=== PATIENT | female | born 1975 | race Two or more races ===

== ENCOUNTER → 2020-04-29 12:35 | Outpatient (BNVA) | payer OTHER, SELFPAY | PROVIDERS: PCP Internal Medicine; Referring Provider Internal Medicine; Visit Provider Internal Medicine Endocrinology, Diabetes & Metabolism | DX: E11.65 Type 2 diabetes mellitus with hyperglycemia (principal); E11.21 Type 2 diabetes mellitus with diabetic nephropathy; L68.0 Hirsutism; E66.9 Obesity, unspecified; E78.5 Hyperlipidemia, unspecified | CPT/HCPCS: 99214 ==

== ENCOUNTER 2020-04-30 08:02 | Outpatient (REF) | payer OTHER, SELFPAY ==
[2020-04-30 09:16] LABS: Alanine Aminotransferase 25 U/L (0-31); Albumin Level 3.8 g/dL (3.5-5.0); Alkaline Phosphatase 93 U/L (39-117); Anion Gap 11 (12-20); Aspartate Amino Transferase 19 U/L (5-31); Bilirubin Total 0.6 mg/dL (0.0-1.0); Blood Urea Nitrogen 10 mg/dL (9-16); Carbon Dioxide 27 mmol/L (22-29); Chloride 106 mmol/L (96-108); Cholesterol 173 mg/dL; Estimated Glomerular Filt Rate > 60; Glucose Fasting 156 mg/dL (60-99); HDL Cholesterol 29 mg/dL; LDL Cholesterol Calculated 101 mg/dl; Potassium 4.4 mmol/l (3.3-5.1); Sodium 140 mmol/L (135-145); Triglycerides 218 mg/dL
[2020-04-30 09:29] LABS: Estimated Average Glucose 174 mg/dL; Hemoglobin A1c % 7.7 %
[2020-04-30 09:39] LABS: Creatinine Urine 108.31 mg/dL; Microalbum/Creatinine Ratio Ur 49.8 ug/mg cr
[2020-04-30 09:39] LABS: Free T4 (Free Thyroxine) 1.03 ng/dL (0.71-1.85)
[2020-04-30 18:07] LABS: Vitamin B12 171 pg/mL (200-900)
[2020-05-01 09:42] LABS: LDL Cholesterol Direct 117 mg/dL (<100)
[2020-05-01 19:21] LABS: Prolactin 6.9 ng/mL
[2020-05-01 21:15] LABS: DHEA Sulfate 108 mcg/dL (19-231)
[2020-05-01 23:56] LABS: Adrenocorticotropic Hormone 28 pg/mL (6-50)
[2020-05-05 15:51] LABS: Androstenedione 70 ng/dL
[2020-05-06 13:42] LABS: Testosterone, Free 1.8 pg/mL (0.1-6.4); Testosterone, Total 20 ng/dL (2-45)
[2020-05-06 19:25] LABS: 11-Deoxycortisol, LC/MS <20 ng/dL
== END 2020-04-30 08:03 | disposition home or self-care (01) ==
LOC: HO.LAB 08:02
PROVIDERS: PCP Internal Medicine; Visit Provider Internal Medicine Endocrinology, Diabetes & Metabolism
DX: E11.65 Type 2 diabetes mellitus with hyperglycemia (principal)
CPT/HCPCS: 80053; 80061; 82024; 82043; 82157; 82533; 82607; 82627; 82634; 83036; 83498; 83721; 84146; 84402; 84403; 84439; 84443

== ENCOUNTER 2020-05-05 08:06 | Outpatient (REF) | payer OTHER, SELFPAY ==
[2020-05-06 21:22] LABS: DHEA Sulfate 54 mcg/dL (19-231)
[2020-05-06 22:56] LABS: Adrenocorticotropic Hormone 11 pg/mL (6-50)
[2020-05-07 18:51] LABS: LDL Cholesterol Direct 121 mg/dL (<100)
[2020-05-07 19:17] LABS: Prolactin 7.9 ng/mL
[2020-05-09 14:16] LABS: Saliva Cortisol <0.03 mcg/dL
[2020-05-11 12:22] LABS: Testosterone, Total 16 ng/dL (2-45)
[2020-05-11 21:37] LABS: Androstenedione 66 ng/dL
[2020-05-14 20:22] LABS: 11-Deoxycortisol, LC/MS <20 ng/dL
== END 2020-05-05 08:07 | disposition home or self-care (01) ==
LOC: HO.LAB 08:06
PROVIDERS: Visit Provider Internal Medicine Endocrinology, Diabetes & Metabolism
DX: E11.65 Type 2 diabetes mellitus with hyperglycemia (principal); L68.0 Hirsutism
CPT/HCPCS: 82024; 82157; 82530; 82533; 82627; 82634; 83498; 83721; 84146; 84402; 84403

== ENCOUNTER 2020-08-04 10:32 | Emergency (ER) | payer OTHER, SELFPAY ==
[2020-08-04 10:38] VITALS: BP 134/87; BP 160/70; PULSE 120; PULSE 90; RESP 18; TEMP 37; O2SAT 98; O2SAT 99; BMI 36.7
--- NOTE | 2020-08-04 10:39 | ECG_ITS ---
Test Reason : CHEST TIGHTNESS Blood Pressure : / mmHG Vent. Rate : 076 BPM Atrial Rate : 076 BPM P-R Int : 124 ms QRS Dur : 072 ms QT Int : 400 ms P-R-T Axes : 056 052 041 degrees QTc Int : 450 ms Normal sinus rhythm Normal ECG When compared with ECG of 24-APR-2019 15:19, No significant change was found Referred By: Frde Lord Electronically Signed By:ISAC LAMBERT MD
--- NOTE | 2020-08-04 10:40 | ED.URI ---
HPI - URI/Sore Throat General Chief Complaint: Upper Respiratory Symptoms Stated Complaint: covid symptoms Time Seen by Provider: 08/04/20 10:36 Source: EMS Mode of arrival: EMS Limitations: no limitations History of Present Illness HPI Narrative: 44-year-old female with reported history of diabetes, diabetic neuropathy, dyslipidemia, obesity, COPD on inhaler with surgical history right ankle surgery, section and umbilical hernia repair who presents via EMS with complaint of states for the past couple days states she thought she may have allergies that she was next to a dog and she usually gets significant allergies from this however she has continued cough and now associated chest wall pain. MD elicited complaint: cough and rhinorrhea Pertinent past history: COPD Onset (ago): day(s) (2) Severity: moderate Able to tolerate fluids by mouth: Yes Exacerbating factors: nothing Associated symptoms: denies other symptoms Treatments prior to arrival: none Related Data Home Medications Medication Instructions Recorded Confirmed ergocalciferol (vitamin D2) 1,250 1,250 mcg PO QWEEK 04/29/20 04/29/20 mcg (50,000 unit) capsule Previous Rx's Medication Instructions Recorded dulaglutide 0.75 mg/0.5 mL 0.75 mg SUBCUT QWEEK 30 Days #2.5 04/29/20 subcutaneous pen injector ml atorvastatin 10 mg tablet 20 mg PO DAILY 30 Days #60 tab 05/05/20 lisinopril 2.5 mg tablet 2.5 mg PO DAILY 30 Days #30 tab 05/05/20 mecobalamin (vitamin B12) 1,000 1,000 mcg SUBLINGUAL DAILY 30 Days 05/05/20 mcg disintegrating #30 tab tablet,sublingual azithromycin [Zithromax Z-Josué] 250 mg PO DAILY 5 Days #6 tab 08/04/20 prednisone 40 mg PO DAILY 5 Days #10 tab 08/04/20 Allergies Allergy/AdvReac Type Severity Reaction Status Date / Time latex [LATEX] Allergy Mild RASH Unverified 04/09/20 15:50 Latex Allergy Unknown Uncoded 03/18/20 00:00 Review of Systems Review of Systems: Constitutional: No Weight loss, No Fever, No Chills, No Night Sweats, No Fatigue, No Malaise ENT/Mouth: No Hearing loss, No Ear Pain, + Nasal Congestion, No Sinus Pain, No Hoarseness, No sore throat, + Rhinorrhea, No Swallowing Difficulty Eyes: No Eye Pain, No Swelling, No Redness, No Foreign Body, No Discharge, No Vision Changes Cardiovascular: + Chest wall Pain, No SOB, No Dyspnea on Exertion, No Orthopnea, No Edema, No Palpitations Respiratory: + Cough, No Sputum, No Wheezing, No Smoke Exposure, No Dyspnea Gastrointestinal: No Nausea, No Vomiting, No Diarrhea, No Constipation, No abdominal Pain, No Hematochezia, No Melena Genitourinary: no irregular bleeding, No Dysuria, No Urinary Frequency, No Hematuria, No Urinary Incontinence, No Urgency, No Flank Pain Musculoskeletal: No joint pain, No Myalgias, No Joint Swelling Skin: No Skin Lesions, No rash Neuro: No Weakness, No Numbness, No Paresthesias, No Loss of Consciousness, No Dizziness, No Headache Psych: No Social Issues Heme/Lymph: No Bruising, No Bleeding,No Lymphadenopathy Endocrine: No Polyuria, No Polydipsia, No Temperature Intolerance Yes all other systems are reviewed and are negative [facility] Past Medical History Medical History (Updated 08/04/20 @ 11:48 by Fred Lord NP) B12 deficiency Diabetes type 2, uncontrolled Diabetic nephropathy associated with type 2 diabetes mellitus Dyslipidemia Hirsutism Obesity (BMI 30-39.9) Surgical History (Updated 04/29/20 @ 12:52 by Judit Crenshaw LPN) History of ankle surgery Hx of section Hx of umbilical hernia repair Family History Family History (Updated 04/29/20 @ 12:53 by Judit Crenshaw LPN) Father Throat cancer Cirrhosis Mother Diabetes Social History Social History (Updated 04/29/20 @ 12:54 by Judit Crenshaw LPN) Smoking Status: Current every day smoker Tobacco Type: Cigarette Cigarettes Per Day: 10 Years Smoked: 30 Advance Directives: Yes Advance Directives on File: Yes Advance Directives Date on File: 04/25/18 Physical Exam Vital Signs: Vital Signs: Last Vital Signs Temp 98.6 F 08/04/20 12:00 Pulse 82 08/04/20 12:00 Resp 16 08/04/20 12:00 BP 142/88 H 08/04/20 12:00 Pulse Ox 100 08/04/20 12:00 Body Mass Index 36.7 Reviewed Const: General: cooperative and healthy appearing; No acute distress or intoxicated appearing Nutritional Appearance: average body habitus Orientation/consciousness: patient oriented x3 HENMT: Head: Yes normal to inspection Ears: hearing grossly normal bilaterally General nose exam: Other nasal findings present (Mild rhinorrhea) Eyes: General: appearance normal, both eyes and all related structures Visual Wright: normal visual wright by confrontation Neck: Neck: Yes normal visual inspection, No positive Brudzinski's sign, No positive Kernig's sign and No tender Thyroid: Thyroid normal Chest: Chest palpation & inspection: normal inspection of the chest Resp: Effort & Inspection: normal respiratory effort Auscultation: clear to auscultation bilaterally Cardio: Jugular venous distension: no JVD Rhythm: regular rhythm Heart sounds: S1 normal heart sound present and S2 normal heart sound present GI: Inspection: Yes normal to inspection Percussion: Yes normal to percussion Auscultation: normal bowel sounds : General: Yes no CVA tenderness Back/Spine/Pelvis: Back: no CVA tenderness Skin: General skin exam: no rashes or lesions noted Neuro: General: patient oriented x3 Extrem: General: Yes normal to inspection Course Course Course Narrative: 1046 In review 44-year-old female with history of diabetes and COPD other history as noted above presenting via EMS from home with cold-like symptoms associated cough and chest wall pain going on for past 2 days. Upon arrival with EMS heart rate 98 pulse ox 100% on room air. Lung sounds clear to auscultation did use inhaler prior to arrival. We will check labs, EKG, troponin, chest x-ray and COVID-19. AP consistent with upper respiratory infection, bronchitis, COVID-19, less likely ACS/PE. Reevaluation(s) Reevaluation #1: 1146 Labs overall stable. CBC with WBC count of 11 she is usually in the 15's , electrolytes without significant derangement. Troponin negative. Chest x-ray without acute disease. COVID negative. EKG without significant changes. Will discharge home with short course prednisone azithromycin and supportive care. Clear return follow-up instructions provided. Comfortable plan. Stable for discharge. MDM - URI/Sore Throat Differential Diagnosis Differential diagnosis: Likely upper respiratory infection, viral infection, bronchitis and influenza; Unlikely croup, otitis media, sinusitis and pharyngitis Medical Records Attestation: I reviewed the patient's medical records. Lab Data Attestation: I reviewed the patient's lab results. Result diagrams: 08/04/20 10:51 08/04/20 10:51 Labs: Lab Results 08/04/20 08/04/20 08/04/20 Range/Units 10:51 10:51 10:51 WBC 11.0 H (4.8-10.8) X10*3/uL RBC 4.93 (4.20-5.50) X10*6/uL Hgb 12.6 (12.0-16.0) g/dl Hct 38.9 (37-47) % MCV 78.9 L (80-98) fL MCH 25.6 L (27.0-33.0) pg MCHC 32.4 (31.0-35.0) g/dl RDW 14.8 (11.0-16.0) % Plt Count 271 (160-400) X10*3/uL MPV 11.6 (9.4-12.3) fL Immature Gran % (Auto) 0.5 H (0.0-0.4) % Neut % (Auto) 60.5 (45-73) % Lymph % (Auto) 31.2 (20-40) % [place] % (Auto) 4.3 (2-11) % Eos % (Auto) 2.8 (0-4) % Baso % (Auto) 0.7 (0-2) % Lymph # (Auto) 3.4 (1.2-4.9) X10*3/uL [place] # (Auto) 0.5 (0.1-1.2) X10*3/uL Eos # (Auto) 0.3 (0.0-0.4) X10*3/uL Baso # (Auto) 0.1 (0.0-0.2) X10*3/uL Abs Immat Gran (auto) 0.05 H (0.00-0.03) X10*3/uL Absolute Neuts (auto) 6.7 (2.0-8.3) X10*3/uL Absolute Nucleated RBC 0.000 (0.0-0.012) X10*3/uL Nucleated RBC % (auto) 0.0 (0.0-0.2) /100WBC Sodium 138 (135-145) mmol/L Potassium 4.5 (3.3-5.1) mmol/l Chloride 105 (96-108) mmol/L Carbon Dioxide 26 (22-29) mmol/L Anion Gap 12 (12-20) BUN 10 (9-16) mg/dL Creatinine 0.87 (0.5-1.4) mg/dL Estim Creat Clear Calc 94.3 Estimated GFR > 60 Random Glucose 186 H (60-115) mg/dL Calcium 8.8 (8.4-10.2) mg/dL Total Bilirubin 0.4 (0.0-1.0) mg/dL AST 19 (5-31) U/L ALT 28 (0-31) U/L Alkaline Phosphatase 96 (39-117) U/L Troponin I High Sens < 3.5 (<3.5-17.0) ng/L Total Protein 6.8 (6.5-8.0) g/dL Albumin 3.7 (3.5-5.0) g/dL COVID-19 (SINTIA) (Negative) COVID-19 Clin Com 08/04/20 Range/Units 10:51 WBC (4.8-10.8) X10*3/uL RBC (4.20-5.50) X10*6/uL Hgb (12.0-16.0) g/dl Hct (37-47) % MCV (80-98) fL MCH (27.0-33.0) pg MCHC (31.0-35.0) g/dl RDW (11.0-16.0) % Plt Count (160-400) X10*3/uL MPV (9.4-12.3) fL Immature Gran % (Auto) (0.0-0.4) % Neut % (Auto) (45-73) % Lymph % (Auto) (20-40) % [place] % (Auto) (2-11) % Eos % (Auto) (0-4) % Baso % (Auto) (0-2) % Lymph # (Auto) (1.2-4.9) X10*3/uL [place] # (Auto) (0.1-1.2) X10*3/uL Eos # (Auto) (0.0-0.4) X10*3/uL Baso # (Auto) (0.0-0.2) X10*3/uL Abs Immat Gran (auto) (0.00-0.03) X10*3/uL Absolute Neuts (auto) (2.0-8.3) X10*3/uL Absolute Nucleated RBC (0.0-0.012) X10*3/uL Nucleated RBC % (auto) (0.0-0.2) /100WBC Sodium (135-145) mmol/L Potassium (3.3-5.1) mmol/l Chloride (96-108) mmol/L Carbon Dioxide (22-29) mmol/L Anion Gap (12-20) BUN (9-16) mg/dL Creatinine (0.5-1.4) mg/dL Estim Creat Clear Calc Estimated GFR Random Glucose (60-115) mg/dL Calcium (8.4-10.2) mg/dL Total Bilirubin (0.0-1.0) mg/dL AST (5-31) U/L ALT (0-31) U/L Alkaline Phosphatase (39-117) U/L Troponin I High Sens (<3.5-17.0) ng/L Total Protein (6.5-8.0) g/dL Albumin (3.5-5.0) g/dL COVID-19 (SINTIA) Negative (Negative) COVID-19 Clin Com See Note Imaging Data Chest x-ray: Radiologist's impression: [place] [id number] XRay Report Signed Patient: Mckenzie Quiñonez#: [id number] : 1975Acct:[id number] Age/Sex: 44 / FADM Date: 08/04/20 Loc: .ED Attending Dr: Ordering Physician: Fred Lord NP Date of Service: 08/04/20 Procedure(s): XR chest 1V Accession Number(s): [id number] cc: Fred Lord NP~ EXAMINATION: XR CHEST CLINICAL INFORMATION: Chest wall pain COMPARISON: Chest radiographs 12/09/2019 TECHNIQUE: Portable upright AP view of the chest was obtained. FINDINGS: The lungs are clear. There is no pneumothorax or pleural reaction. No airspace consolidation or groundglass opacity or effusion. The heart is normal in size. The hilar and mediastinal contours are unremarkable. No acute bony abnormality. Foreshortening left distal clavicle again seen. XR/XR chest 1V IMPRESSION: Unremarkable examination. Dictated By:LAM FLORES MD Signed By:<Electronically signed by LAM FLOERS MD in OV>08/04/20 1052 DD/ 1039 TD/TT: Balance Bridge Assembler: JEIMY ECG Data Interpretation: Normal sinus rhythm Rate 76 NM interval within normal limits No acute ST segment changes When compared with ECG of 24-APR-2019 15:19, No significant change was found Discharge Plan Discharge Clinical Impression: Upper respiratory infection, Cough, Atypical chest pain Patient Disposition: Home, Self-Care Instructions: Chest Pain (ED), Upper Respiratory Infection (ED), Acute Cough (ED) Additional Instructions: Your blood work was overall reassuring X-ray did not show any evidence of pneumonia Your COVID test was negative You still need to practice social distancing and self-isolation at least until 3 days symptom free. Drink plenty fluids Supportive care as discussed Take medication prescribed Return if any concerns or worsening symptoms Thank you Prescriptions: New azithromycin [Zithromax Z-Josué] 250 mg tablet 250 mg PO DAILY 5 Days Qty: 6 RF: 0 prednisone 20 mg tablet 40 mg PO DAILY 5 Days Qty: 10 RF: 0 No Action atorvastatin 10 mg tablet 20 mg PO DAILY 30 Days Qty: 60 RF: 5 mecobalamin (vitamin B12) 1,000 mcg tablet,disintegrating 1,000 mcg sublingual DAILY 30 Days Qty: 30 RF: 3 lisinopril 2.5 mg tablet 2.5 mg PO DAILY 30 Days Qty: 30 RF: 4 ergocalciferol (vitamin D2) 1,250 mcg (50,000 unit) capsule 1,250 mcg PO QWEEK RF: 0 Trulicity 0.75 mg/0.5 mL pen injector 0.75 mg subcut QWEEK 30 Days Qty: 2.5 RF: 5 Referrals: Physician,Unknown [Primary Care Provider] - 1 week
[2020-08-04 10:56] LABS: MANUAL DIFF FLAG NO
[2020-08-04] MEDS: predniSONE 20 MG TABLET 60 MG PO (10:56)
[2020-08-04 11:02] LABS: Basophils Absolute Auto 0.1 X10*3/uL (0.0-0.2); Basophils Percent Auto 0.7 % (0-2); Eosinophils Absolute Auto 0.3 X10*3/uL (0.0-0.4); Eosinophils Percent Auto 2.8 % (0-4); Hematocrit 38.9 % (37-47); Hemoglobin 12.6 g/dl (12.0-16.0); Imm Gran Abs Auto 0.05 X10*3/uL (0.00-0.03); Imm Gran Pct Auto 0.5 % (0.0-0.4); Lymphocytes Absolute Auto 3.4 X10*3/uL (1.2-4.9); Lymphocytes Percent Auto 31.2 % (20-40); Mean Corpuscular HGB Conc 32.4 g/dl (31.0-35.0); Mean Corpuscular Hemoglobin 25.6 pg (27.0-33.0); Mean Corpuscular Volume 78.9 fL (80-98); Mean Platelet Volume 11.6 fL (9.4-12.3); Monocytes Absolute Auto 0.5 X10*3/uL (0.1-1.2); Monocytes Percent Auto 4.3 % (2-11); Neutrophils Absolute Auto 6.7 X10*3/uL (2.0-8.3); Neutrophils Percent Auto 60.5 % (45-73); Platelet Count 271 X10*3/uL (160-400); Red Blood Count 4.93 X10*6/uL (4.20-5.50); Red Cell Distribution Width 14.8 % (11.0-16.0)
[2020-08-04 11:18] LABS: COVID-19 Test Negative (Negative); IDNOW Serial# 9DD0AD1C
[2020-08-04 11:32] LABS: Alanine Aminotransferase 28 U/L (0-31); Albumin Level 3.7 g/dL (3.5-5.0); Alkaline Phosphatase 96 U/L (39-117); Anion Gap 12 (12-20); Aspartate Amino Transferase 19 U/L (5-31); Bilirubin Total 0.4 mg/dL (0.0-1.0); Blood Urea Nitrogen 10 mg/dL (9-16); Calcium 8.8 mg/dL (8.4-10.2); Carbon Dioxide 26 mmol/L (22-29); Chloride 105 mmol/L (96-108); Creatinine Clr Calc Pharmacy 94.3; Estimated Glomerular Filt Rate > 60; Glucose Random 186 mg/dL (60-115); Potassium 4.5 mmol/l (3.3-5.1); Sodium 138 mmol/L (135-145); Total Protein 6.8 g/dL (6.5-8.0)
[2020-08-04 11:37] LABS: Troponin-I High Sensitivity < 3.5 ng/L (<3.5-17.0)
[2020-08-04 12:00] VITALS: BP 142/88; PULSE 82; RESP 16; TEMP 37; O2SAT 100
== END 2020-08-04 12:50 | disposition home or self-care (01) ==
PROVIDERS: Nurse Practitioner Primary Care; Emergency Provider Emergency Medicine Emergency Medical Services
DX: J06.9 Acute upper respiratory infection, unspecified (principal); R05 Cough; R07.89 Other chest pain; Z20.828 Contact with and (suspected) exposure to other viral communicable diseases; Z79.899 Other long term (current) drug therapy
CPT/HCPCS: 36415; 71045; 80053; 84484; 85025; 87635; 93005; 99283

== ENCOUNTER 2020-08-21 20:53 | Emergency (ER) | payer OTHER, SELFPAY ==
[2020-08-21 22:02] VITALS: BP 147/96; BP 170/100; PULSE 102; PULSE 104; RESP 20; TEMP 36.8; O2SAT 99; BMI 36.6
--- NOTE | 2020-08-21 22:06 | ED.HA ---
HPI - Headache General Chief Complaint: General Medical Stated Complaint: HEAD ACHE Time Seen by Provider: 08/21/20 22:05 Source: patient Mode of arrival: ambulatory Limitations: no limitations History of Present Illness HPI Narrative: Patient chronic smoker recurrent bronchitis been sick for last 3 week bronchitis getting better now still short of breath with cough complaining of headache since today with history of migraine also complaining of lower pelvic pain on her periods now also complaining of pain when she urinates. Patient denies any nausea or vomiting slight photosensitivity MD elicited complaint: headache Pertinent past history: migraines Onset description: gradually Location: frontal Severity: moderate Quality & Timing: similar to previous headaches Exacerbating factors: light and noise Relieving factors: nothing Context: occurred at rest Related Data Home Medications Medication Instructions Recorded Confirmed ergocalciferol (vitamin D2) 1,250 1,250 mcg PO QWEEK 04/29/20 04/29/20 mcg (50,000 unit) capsule Previous Rx's Medication Instructions Recorded dulaglutide 0.75 mg/0.5 mL 0.75 mg SUBCUT QWEEK 30 Days #2.5 04/29/20 subcutaneous pen injector ml atorvastatin 10 mg tablet 20 mg PO DAILY 30 Days #60 tab 05/05/20 lisinopril 2.5 mg tablet 2.5 mg PO DAILY 30 Days #30 tab 05/05/20 mecobalamin (vitamin B12) 1,000 1,000 mcg SUBLINGUAL DAILY 30 Days 05/05/20 mcg disintegrating #30 tab tablet,sublingual azithromycin [Zithromax Z-Josué] 250 mg PO DAILY 5 Days #6 tab 08/04/20 prednisone 40 mg PO DAILY 5 Days #10 tab 08/04/20 oxycodone-acetaminophen [Percocet] 1 tab PO Q6H PRN #14 tab 08/21/20 Allergies Allergy/AdvReac Type Severity Reaction Status Date / Time latex [LATEX] Allergy Mild RASH Verified 08/21/20 22:06 Review of Systems Review of Systems: Constitutional : No Weight loss, No Fever, No Chills ENT/Mouth : No sore throat, No Rhinorrhea Eyes: No Eye Pain, No Swelling Cardiovascular : No Chest Pain, no palpitations Respiratory : No Cough, No Sputum, no shortness of breath Gastrointestinal : no Nausea, No Vomiting, No Diarrhea, ++abdominal Pain, no black stools Genitourinary : ++Dysuria, No Urinary Frequency Musculoskeletal : No joint pain, No Myalgias, No Joint Swelling Skin : No Skin Lesions, No rash Neuro : No Weakness, No Numbness, No Dizziness, ++ Headache Psych : No Anxiety/Panic, No Depression Heme/Lymph: No Bruising, No Lymphadenopathy Endocrine : No Polyuria, No Polydipsia All other systems reviewed and are negative PMFSH Past Medical History Medical History B12 deficiency Diabetes type 2, uncontrolled Diabetic nephropathy associated with type 2 diabetes mellitus Dyslipidemia Hirsutism Obesity (BMI 30-39.9) Surgical History History of ankle surgery Hx of section Hx of umbilical hernia repair Family History Family History Father Throat cancer Cirrhosis Mother Diabetes Social History Social History Smoking Status: Current every day smoker Tobacco Type: Cigarette Cigarettes Per Day: 10 Years Smoked: 30 Advance Directives: Yes Advance Directives on File: Yes Advance Directives Date on File: 04/25/18 Physical Exam Vital Signs: Vital Signs: Last Vital Signs Temp 98.2 F 08/21/20 22:02 Pulse 102 H 08/21/20 22:02 Resp 20 08/21/20 22:02 BP 147/96 H 08/21/20 22:02 Pulse Ox 99 08/21/20 22:02 Body Mass Index 36.6 Const: General: healthy appearing, comfortable and no acute distress Orientation/consciousness: patient oriented x3 HENMT: Head: Yes normocephalic and Yes atraumatic Ears: hearing grossly normal bilaterally General nose exam: Normal external nose present and No nasal discharge present Face and sinus: No sinus tenderness Mouth: Normal oral and palatal mucosa present Eyes: General: appearance normal, both eyes and all related structures Neck: Neck: Yes normal visual inspection, Yes full ROM and Yes no JVD Chest: Chest palpation & inspection: normal inspection of the chest and normal palpation of entire chest wall Resp: Effort & Inspection: normal respiratory effort Auscultation: clear to auscultation bilaterally Cardio: Jugular venous distension: no JVD Palpation: normal PMI Rate: regular rate Rhythm: regular rhythm Heart sounds: S1 normal heart sound present and S2 normal heart sound present GI: Inspection: Yes normal to inspection Palpation (GI): Soft to palpation, Tenderness to palpation present (GI) (Mild tenderness in suprapubic area) suprapubicly; with no rebound tenderness and no masses Auscultation: normal bowel sounds : General: Yes no CVA tenderness Back/Spine/Pelvis: Back: no CVA tenderness Skin: General skin exam: no rashes or lesions noted Neuro: General: patient oriented x3, gait normal and no focal motor deficits Extrem: General: Yes normal to inspection, Yes normal gait and No pedal edema Course Course Course Narrative: Patient with history of migraine complaining of headaches body aches urine is negative for any infection patient is on her periods. Feeling better of her oxycodone Complaining of body aches all over with discharge her home on Percocet MDM - Headache Lab Data Attestation: I reviewed the patient's lab results. Labs: Lab Results 08/21/20 08/21/20 08/21/20 Range/Units 22:43 22:43 23:10 POC Glucose 139 H (60-115) mg/dL Urine Color RED Urine Appearance TURBID Urine pH 6.0 (5.0-8.0) Ur Specific [place] 1.025 (1.005-1.025) Urine Protein 1+ H (NEG-TRACE) MG/DL Urine Glucose (UA) NEG (NEG) MG/DL Urine Ketones NEG (NEG) MG/DL Urine Blood 3+ H (NEG) Urine Nitrite NEG (NEG) Ur Leukocyte Esterase TRACE H (NEG) Urine RBC TNTC H (0) /HPF Urine WBC 1-4 (0-4) /HPF Ur Squamous Epith Cells 1+ /LPF Urine Bacteria 1+ /LPF COVID-19 ([facility]INTIA) Negative (Negative) COVID-19 Clin Com See Note Discharge Plan Discharge Clinical Impression: Migraine Qualifiers: Migraine type: unspecified Status migrainosus presence: without status migrainosus Intractability: not intractable Qualified Code(s): G43.909 - Migraine, unspecified, not intractable, without status migrainosus Patient Disposition: Home, Self-Care Instructions: Migraine Headache (ED) Additional Instructions: Rest at home medicine for pain as advised Prescriptions: New oxycodone-acetaminophen [Percocet] 5-325 mg tablet 1 tab PO Q6H PRN (Reason: pain) Qty: 14 RF: 0 No Action atorvastatin 10 mg tablet 20 mg PO DAILY 30 Days Qty: 60 RF: 5 mecobalamin (vitamin B12) 1,000 mcg tablet,disintegrating 1,000 mcg sublingual DAILY 30 Days Qty: 30 RF: 3 lisinopril 2.5 mg tablet 2.5 mg PO DAILY 30 Days Qty: 30 RF: 4 azithromycin [Zithromax Z-Josué] 250 mg tablet 250 mg PO DAILY 5 Days Qty: 6 RF: 0 prednisone 20 mg tablet 40 mg PO DAILY 5 Days Qty: 10 RF: 0 ergocalciferol (vitamin D2) 1,250 mcg (50,000 unit) capsule 1,250 mcg PO QWEEK RF: 0 Trulicity 0.75 mg/0.5 mL pen injector 0.75 mg subcut QWEEK 30 Days Qty: 2.5 RF: 5
--- NOTE | 2020-08-21 22:18 | XR_ITS ---
EXAMINATION: XR CHEST CLINICAL INFORMATION: Cough COMPARISON: 08/04/2020 TECHNIQUE: Frontal view of the chest was obtained. FINDINGS: Normal symmetric lung volumes. No parenchymal consolidation. No pleural effusion. No pneumothorax. Cardiomediastinal silhouette and pulmonary vascularity are within normal limits. No acute osseous abnormalities. XR/XR chest 1V IMPRESSION: No focal consolidation or portable radiographic evidence of acute pneumonitis.
[2020-08-21] MEDS: oxyCODONE HCl Immed Release 5 MG TABLET 10 MG PO (22:40)
[2020-08-21 23:02] LABS: Glucose Urine UA NEG (NEG); Leukocyte Esterase Urine TRACE (NEG); Nitrite Urine NEG (NEG); Specific Gravity - Urine 1.025 (1.005-1.025); UACC Culture Trigger YES; Urine Blood 3+ (NEG); Urine Ketones NEG (NEG); Urine Protein 1+ MG/DL (NEG-TRACE)
[2020-08-21 23:11] LABS: Appearance Urine TURBID; Color Urine RED
[2020-08-21 23:15] LABS: RBC Urine TNTC /HPF (0)
[2020-08-21 23:16] LABS: Bacteria Urine 1+ /LPF; Squamous Epithelial Cell Urine 1+ /LPF
[2020-08-21 23:16] LABS: Glucose, Whole Blood 139 mg/dL (60-115)
[2020-08-21 23:17] LABS: COVID-19 Test Negative (Negative); IDNOW Serial# 9DD0AD1C
[2020-08-21 23:52] VITALS: BP 144/94; PULSE 74; RESP 16; O2SAT 97
== END 2020-08-22 00:02 | disposition home or self-care (01) ==
PROVIDERS: Emergency Provider Internal Medicine
DX: G43.909 Migraine, unspecified, not intractable, without status migrainosus (principal); F17.210 Nicotine dependence, cigarettes, uncomplicated; Z71.6 Tobacco abuse counseling; Z79.899 Other long term (current) drug therapy
CPT/HCPCS: 36415; 71045; 81001; 81003; 82947; 87086; 87635; 99283; 99284

== ENCOUNTER 2020-10-09 17:50 | Emergency (ER) | payer OTHER, SELFPAY ==
--- NOTE | 2020-10-09 | ECG_ITS ---
Test Reason : CHEST PAIN Blood Pressure : / mmHG Vent. Rate : 076 BPM Atrial Rate : 076 BPM P-R Int : 128 ms QRS Dur : 074 ms QT Int : 388 ms P-R-T Axes : 044 036 026 degrees QTc Int : 436 ms Normal sinus rhythm Cannot rule out Anterior infarct , age undetermined Abnormal ECG When compared with ECG of 04-AUG-2020 12:25, No significant change was found Referred By: Generic ED Physician Electronically Signed By:ISAC LAMBERT MD
--- NOTE | ~2020-10-09 | XR_ITS ---
EXAMINATION: XR CHEST CLINICAL INFORMATION: CP left side COMPARISON: 08/21/2020 TECHNIQUE: AP portable upright view of the chest FINDINGS: Lungs are clear. No consolidation, pneumothorax, or pleural effusion. Cardiac and mediastinal contours are normal. Pulmonary vasculature is unremarkable. There is chronic widening of the acromioclavicular joints with an old left distal clavicular fracture. No acute osseous findings. XR/XR chest 1V IMPRESSION: No acute cardiopulmonary findings
[2020-10-09 18:31] VITALS: BP 115/80; PULSE 89; RESP 18; TEMP 36.9; O2SAT 97; BMI 35.4
[2020-10-09 18:45] LABS: MANUAL DIFF FLAG NO
[2020-10-09 18:49] LABS: Basophils Absolute Auto 0.1 X10*3/uL (0.0-0.2); Basophils Percent Auto 0.7 % (0-2); Eosinophils Absolute Auto 0.3 X10*3/uL (0.0-0.4); Hematocrit 39.3 % (37-47); Hemoglobin 13.1 g/dl (12.0-16.0); Imm Gran Abs Auto 0.04 X10*3/uL (0.00-0.03); Imm Gran Pct Auto 0.3 % (0.0-0.4); Lymphocytes Absolute Auto 3.8 X10*3/uL (1.2-4.9); Lymphocytes Percent Auto 29.1 % (20-40); Mean Corpuscular HGB Conc 33.3 g/dl (31.0-35.0); Mean Corpuscular Hemoglobin 26.1 pg (27.0-33.0); Mean Corpuscular Volume 78.3 fL (80-98); Mean Platelet Volume 11.8 fL (9.4-12.3); Monocytes Absolute Auto 0.6 X10*3/uL (0.1-1.2); Monocytes Percent Auto 4.5 % (2-11); Neutrophils Absolute Auto 8.3 X10*3/uL (2.0-8.3); Neutrophils Percent Auto 63.4 % (45-73); Platelet Count 283 X10*3/uL (160-400); Red Blood Count 5.02 X10*6/uL (4.20-5.50); Red Cell Distribution Width 16.2 % (11.0-16.0); White Blood Count 13.1 X10*3/uL (4.8-10.8)
[2020-10-09 19:18] LABS: Anion Gap 12 (12-20); Blood Urea Nitrogen 8 mg/dL (9-16); Calcium 9.1 mg/dL (8.4-10.2); Carbon Dioxide 26 mmol/L (22-29); Chloride 103 mmol/L (96-108); Creatinine Clr Calc Pharmacy 100.6; Estimated Glomerular Filt Rate > 60; Glucose Random 122 mg/dL (60-115); Potassium 4.1 mmol/L (3.3-5.1); Sodium 137 mmol/L (135-145)
[2020-10-09 19:26] LABS: Troponin-I High Sensitivity < 3.5 ng/L (<3.5-17.0)
--- NOTE | 2020-10-09 21:34 | ED_ITS ---
HPI - General Adult General Chief complaint: General Medical Stated complaint: headache x2 days Time Seen by Provider: 10/09/20 21:26 Source: patient Mode of arrival: ambulatory Limitations: no limitations History of Present Illness HPI narrative: Patient comes emergency room complaining of left-sided chest pain. Patient states that the pain started last week after physical therapy. Patient states when she moves her arm, sometimes he feels a bit numb and tingling. At this time, patient states that she has no pain. Patient states she was seen by her primary care physician earlier today, she was instructed to come by the primary care physician to come to the emergency room. Patient states also that overall she has been feeling weak for about a week. Patient has history pulmonary fibrosis, asthma, emphysema. Patient denies URI symptoms. Related Data Home Medications Medication Instructions Recorded Confirmed ergocalciferol (vitamin D2) 1,250 1,250 mcg PO QWEEK 04/29/20 04/29/20 mcg (50,000 unit) capsule Previous Rx's Medication Instructions Recorded atorvastatin 10 mg tablet 20 mg PO DAILY 30 Days #60 tab 05/05/20 lisinopril 2.5 mg tablet 2.5 mg PO DAILY 30 Days #30 tab 05/05/20 mecobalamin (vitamin B12) 1,000 1,000 mcg SUBLINGUAL DAILY 30 Days 05/05/20 mcg disintegrating #30 tab tablet,sublingual azithromycin [Zithromax Z-Josué] 250 mg PO DAILY 5 Days #6 tab 08/04/20 prednisone 40 mg PO DAILY 5 Days #10 tab 08/04/20 oxycodone-acetaminophen [Percocet] 1 tab PO Q6H PRN #14 tab 08/21/20 dulaglutide 0.75 mg/0.5 mL 0.75 mg SUBCUT QWEEK 30 Days #2.5 09/22/20 subcutaneous pen injector ml Allergies Allergy/AdvReac Type Severity Reaction Status Date / Time latex [LATEX] Allergy Mild RASH Verified 08/21/20 22:06 Review of Systems Review of Systems: Constitutional : No Weight loss, No Fever, No Chills, No Night Sweats, No Fatigue, No Malaise ENT/Mouth : No Hearing loss, No Ear Pain, No Nasal Congestion, No Sinus Pain, No Hoarseness, No sore throat, No Rhinorrhea, No Swallowing Difficulty Eyes: No Eye Pain, No Swelling, No Redness, No Foreign Body, No Discharge, No Vision Changes Cardiovascular : Occasional left-sided Chest Pain, No SOB, No Dyspnea on Exertion, No Orthopnea, No Edema, No Palpitations Respiratory : Baseline dry Cough, No Sputum, No Wheezing, No Smoke Exposure, No Dyspnea Gastrointestinal : No Nausea, No Vomiting, No Diarrhea, No Constipation, No abdominal Pain, No Hematochezia, No Melena Genitourinary : no irregular bleeding, No Dysuria, No Urinary Frequency, No Hematuria, No Urinary Incontinence, No Urgency, No Flank Pain, No Urinary Flow Changes, No Hesitancy Musculoskeletal : Pain in the left shoulder with movement and left clavicle, No Myalgias, No Joint Swelling Skin : No Skin Lesions, No rash Neuro : No Weakness, No Numbness, No Paresthesias, No Loss of Consciousness, No Dizziness, No Headache Psych : No Anxiety/Panic, No Depression, No SI/HI/AH/VH, No Social Issues, Heme/Lymph: No Bruising, No Bleeding,No Lymphadenopathy Endocrine : No Polyuria, No Polydipsia, No Temperature Intolerance PMFSH Past Medical History Medical History B12 deficiency Diabetes type 2, uncontrolled Diabetic nephropathy associated with type 2 diabetes mellitus Dyslipidemia Hirsutism Obesity (BMI 30-39.9) Surgical History History of ankle surgery Hx of section Hx of umbilical hernia repair Family History Family History Father Throat cancer Cirrhosis Mother Diabetes Social History Social History Smoking Status: Current every day smoker Tobacco Type: Cigarette Cigarettes Per Day: 10 Years Smoked: 30 Advance Directives: Yes Advance Directives on File: Yes Advance Directives Date on File: 04/25/18 Physical Exam Vital Signs: Vital Signs: Last Vital Signs Temp 98.4 F 10/09/20 18:31 Pulse 87 10/09/20 21:37 Resp 16 10/09/20 21:37 BP 107/66 10/09/20 21:37 Pulse Ox 96 10/09/20 21:37 Body Mass Index 35.4 Appearance: Alert. Oriented X3. No acute distress. Eyes: Pupils equal, round and reactive to light. ENT: Pharynx normal. Neck: Normal inspection. Neck supple. No lymph nodes noted. No crepitus CVS: Normal heart rate and rhythm. Pulses normal. Normal S1 and S2, reproducible chest pain on palpation Respiratory: No respiratory distress. Breath sounds normal. No Wheezing. No rales Abdomen: Soft and nontender. No rigidity. No distention. good BS x4 Skin: Skin warm and dry. Normal skin color. Normal skin turgor. Extremities: No lower extremity edema. Pain with left shoulder movement, pain to palpation over the left clavicle Neuro: Oriented X 3. No motor deficit. No sensory deficit. Moving all extermities. No slurred speech. Course Course Course Narrative: Patient remains asymptomatic. I discussed with the patient her EKG, troponin and chest x-ray, no acute findings. Patient's chest pain likely secondary to a muscle strain/musculoskeletal was treated by physical therapy. Medical Decision Making Lab Data Result diagrams: 10/09/20 18:39 10/09/20 18:39 Labs: Lab Results 10/09/20 10/09/20 10/09/20 Range/Units 18:39 18:39 18:39 WBC 13.1 H (4.8-10.8) X10*3/uL RBC 5.02 (4.20-5.50) X10*6/uL Hgb 13.1 (12.0-16.0) g/dl Hct 39.3 (37-47) % MCV 78.3 L (80-98) fL MCH 26.1 L (27.0-33.0) pg MCHC 33.3 (31.0-35.0) g/dl RDW 16.2 H (11.0-16.0) % Plt Count 283 (160-400) X10*3/uL MPV 11.8 (9.4-12.3) fL Immature Gran % (Auto) 0.3 (0.0-0.4) % Neut % (Auto) 63.4 (45-73) % Lymph % (Auto) 29.1 (20-40) % [place] % (Auto) 4.5 (2-11) % Eos % (Auto) 2.0 (0-4) % Baso % (Auto) 0.7 (0-2) % Lymph # (Auto) 3.8 (1.2-4.9) X10*3/uL [place] # (Auto) 0.6 (0.1-1.2) X10*3/uL Eos # (Auto) 0.3 (0.0-0.4) X10*3/uL Baso # (Auto) 0.1 (0.0-0.2) X10*3/uL Abs Immat Gran (auto) 0.04 H (0.00-0.03) X10*3/uL Absolute Neuts (auto) 8.3 (2.0-8.3) X10*3/uL Absolute Nucleated RBC 0.000 (0.0-0.012) X10*3/uL Nucleated RBC % (auto) 0.0 (0.0-0.2) /100WBC Hold Blue Top SEE NOTE Sodium 137 (135-145) mmol/L Potassium 4.1 (3.3-5.1) mmol/L Chloride 103 (96-108) mmol/L Carbon Dioxide 26 (22-29) mmol/L Anion Gap 12 (12-20) BUN 8 L (9-16) mg/dL Creatinine 0.82 (0.5-1.4) mg/dL Estim Creat Clear Calc 100.6 Estimated GFR > 60 Random Glucose 122 H (60-115) mg/dL Calcium 9.1 (8.4-10.2) mg/dL Troponin I High Sens (<3.5-17.0) ng/L 10/09/20 Range/Units 18:39 WBC (4.8-10.8) X10*3/uL RBC (4.20-5.50) X10*6/uL Hgb (12.0-16.0) g/dl Hct (37-47) % MCV (80-98) fL MCH (27.0-33.0) pg MCHC (31.0-35.0) g/dl RDW (11.0-16.0) % Plt Count (160-400) X10*3/uL MPV (9.4-12.3) fL Immature Gran % (Auto) (0.0-0.4) % Neut % (Auto) (45-73) % Lymph % (Auto) (20-40) % [place] % (Auto) (2-11) % Eos % (Auto) (0-4) % Baso % (Auto) (0-2) % Lymph # (Auto) (1.2-4.9) X10*3/uL [place] # (Auto) (0.1-1.2) X10*3/uL Eos # (Auto) (0.0-0.4) X10*3/uL Baso # (Auto) (0.0-0.2) X10*3/uL Abs Immat Gran (auto) (0.00-0.03) X10*3/uL Absolute Neuts (auto) (2.0-8.3) X10*3/uL Absolute Nucleated RBC (0.0-0.012) X10*3/uL Nucleated RBC % (auto) (0.0-0.2) /100WBC Hold Blue Top Sodium (135-145) mmol/L Potassium (3.3-5.1) mmol/L Chloride (96-108) mmol/L Carbon Dioxide (22-29) mmol/L Anion Gap (12-20) BUN (9-16) mg/dL Creatinine (0.5-1.4) mg/dL Estim Creat Clear Calc Estimated GFR Random Glucose (60-115) mg/dL Calcium (8.4-10.2) mg/dL Troponin I High Sens < 3.5 (<3.5-17.0) ng/L Imaging Data Chest x-ray: Radiologist's impression: Lungs are clear. No consolidation, pneumothorax, or pleural effusion. Cardiac and mediastinal contours are normal. Pulmonary vasculature is unremarkable. There is chronic widening of the acromioclavicular joints with an old left distal clavicular fracture. No acute osseous findings. XR/XR chest 1V IMPRESSION: No acute cardiopulmonary findings Scores Heart Score History: -0- slightly suspicious ECG: -0- normal Age: -0- < or = 45 Risk factory: -1- 1 or 2 risk factors Troponin: -0- < or = normal limit Score: 1 Risk: 1.7% Discharge Plan Discharge Clinical Impression: Atypical chest pain Patient Disposition: Home, Self-Care Instructions: Chest Pain (ED) Prescriptions: No Action atorvastatin 10 mg tablet 20 mg PO DAILY 30 Days Qty: 60 RF: 5 mecobalamin (vitamin B12) 1,000 mcg tablet,disintegrating 1,000 mcg sublingual DAILY 30 Days Qty: 30 RF: 3 lisinopril 2.5 mg tablet 2.5 mg PO DAILY 30 Days Qty: 30 RF: 4 Trulicity 0.75 mg/0.5 mL pen injector 0.75 mg subcut QWEEK 30 Days Qty: 2.5 RF: 5 oxycodone-acetaminophen [Percocet] 5-325 mg tablet 1 tab PO Q6H PRN (Reason: pain) Qty: 14 RF: 0 azithromycin [Zithromax Z-Josué] 250 mg tablet 250 mg PO DAILY 5 Days Qty: 6 RF: 0 prednisone 20 mg tablet 40 mg PO DAILY 5 Days Qty: 10 RF: 0 ergocalciferol (vitamin D2) 1,250 mcg (50,000 unit) capsule 1,250 mcg PO QWEEK RF: 0
[2020-10-09 21:37] VITALS: BP 107/66; PULSE 87; RESP 16; O2SAT 96
[2020-10-09 23:23] LABS: COVID-19 Test Negative (Negative); IDNOW Serial# 9DD0AD1C
== END 2020-10-09 23:39 | disposition home or self-care (01) ==
PROVIDERS: Emergency Provider Emergency Medicine
DX: R07.89 Other chest pain (principal); E11.9 Type 2 diabetes mellitus without complications; E78.5 Hyperlipidemia, unspecified; F17.210 Nicotine dependence, cigarettes, uncomplicated; Z79.899 Other long term (current) drug therapy
CPT/HCPCS: 36415; 71045; 80048; 84484; 85025; 87635; 93005; 99283

== ENCOUNTER → 2020-10-20 11:37 | Outpatient (BNVA) | payer OTHER, SELFPAY | PROVIDERS: PCP Internal Medicine; Referring Provider Internal Medicine; Visit Provider Internal Medicine Endocrinology, Diabetes & Metabolism ==

== ENCOUNTER 2020-12-08 12:18 | Emergency (ER) | payer OTHER, SELFPAY ==
--- NOTE | ~2020-12-08 | XR_ITS ---
EXAMINATION: CHEST 2 VIEWS CLINICAL INFORMATION: chest discomfort . COMPARISON: 10/09/2020 TECHNIQUE: PA and lateral views of the chest obtained. FINDINGS: The lungs are well expanded. No focal infiltrate, effusion, edema, or pneumothorax. Cardiac and mediastinal silhouettes are within normal limits for technique. No acute bony abnormality seen with chronic bony changes in the left acromioclavicular joint XR/XR chest 2V IMPRESSION: No evidence of acute disease
[2020-12-08 13:00] VITALS: BP 119/83; PULSE 96; RESP 18; TEMP 36.9; O2SAT 100; BMI 36.2
[2020-12-08 14:58] LABS: MANUAL DIFF FLAG NO
[2020-12-08 14:59] LABS: Basophils Absolute Auto 0.1 X10*3/uL (0.0-0.2); Basophils Percent Auto 0.5 % (0-2); Eosinophils Absolute Auto 0.2 X10*3/uL (0.0-0.4); Eosinophils Percent Auto 1.4 % (0-4); Hemoglobin 13.2 g/dl (12.0-16.0); Imm Gran Abs Auto 0.06 X10*3/uL (0.00-0.03); Imm Gran Pct Auto 0.4 % (0.0-0.4); Lymphocytes Absolute Auto 3.9 X10*3/uL (1.2-4.9); Lymphocytes Percent Auto 24.6 % (20-40); Mean Corpuscular Hemoglobin 25.4 pg (27.0-33.0); Mean Corpuscular Volume 77.1 fL (80-98); Mean Platelet Volume 11.3 fL (9.4-12.3); Monocytes Absolute Auto 0.5 X10*3/uL (0.1-1.2); Monocytes Percent Auto 3.2 % (2-11); Neutrophils Absolute Auto 11.1 X10*3/uL (2.0-8.3); Neutrophils Percent Auto 69.9 % (45-73); Platelet Count 257 X10*3/uL (160-400); Red Blood Count 5.19 X10*6/uL (4.20-5.50); Red Cell Distribution Width 15.8 % (11.0-16.0); White Blood Count 15.9 X10*3/uL (4.8-10.8)
[2020-12-08 15:19] LABS: Appearance Urine CLEAR; Color Urine YELLOW; Glucose Urine UA NEG (NEG); Leukocyte Esterase Urine NEG (NEG); Nitrite Urine NEG (NEG); PH 5.5 (5.0-8.0); Specific Gravity - Urine 1.025 (1.005-1.025); Urine Blood NEG (NEG); Urine Ketones NEG (NEG); Urine Protein NEG (NEG-TRACE)
[2020-12-08 15:25] LABS: Anion Gap 11 (12-20); Blood Urea Nitrogen 8 mg/dL (9-16); Calcium 9.4 mg/dL (8.4-10.2); Carbon Dioxide 26 mmol/L (22-29); Chloride 105 mmol/L (96-108); Creatinine Clr Calc Pharmacy 103.2; Estimated Glomerular Filt Rate > 60; Glucose Random 173 mg/dL (60-115); Potassium 4.2 mmol/L (3.3-5.1); Sodium 138 mmol/L (135-145)
--- NOTE | 2020-12-08 17:25 | PC.NURSE ---
contact made to lab for mono test to be added to previously drawn labs.
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
[2020-12-08 17:57] LABS: Monotest Negative (Negative)
--- NOTE | 2020-12-08 18:20 | ECG_ITS ---
Test Reason : MEDICAL Blood Pressure : / mmHG Vent. Rate : 085 BPM Atrial Rate : 085 BPM P-R Int : 130 ms QRS Dur : 086 ms QT Int : 368 ms P-R-T Axes : 040 040 032 degrees QTc Int : 437 ms Normal sinus rhythm Normal ECG When compared with ECG of 09-OCT-2020 18:43, No significant change was found Referred By: Velia Hernandez Electronically Signed By:ISAC LAMBERT MD
[2020-12-08 18:27] LABS: TSH reflex Free T4 0.86 uIU/mL (0.32-4.0)
[2020-12-08 18:38] LABS: Strep A Nucleic Acid Negative (Negative)
[2020-12-08 18:46] VITALS: BP 117/78; PULSE 89; RESP 16; TEMP 37.3; O2SAT 99
[2020-12-08 18:46] LABS: Folate 6.9 ng/mL (> or = 4.0); Vitamin B12 211 pg/mL (200-900)
[2020-12-08 19:06] LABS: Influenza A PCR NEGATIVE (Negative); Influenza B PCR NEGATIVE (Negative); Resp Syncy Virus RNA Qual PCR NEGATIVE (Negative); SARS COV2 PCR INHOUSE NEGATIVE (Negative)
--- NOTE | 2020-12-08 19:16 | PC.NURSE ---
Pt aaox4, speaking in complete coherent sentences. Pt offers no complaints of pain/discomfort. NAVDEEP Gunn at bedside discussing plan for DC with pt, plan for Candy to f/u with pt regarding covid test results. Pt expresses understanding of plan, no questions. Pt stretcher is in lowest locked position. This RN to DC when DC paperwork posted.
== END 2020-12-08 19:49 | disposition home or self-care (01) ==
PROVIDERS: Nurse Practitioner Family; Emergency Provider Emergency Medicine; PCP Internal Medicine
DX: E11.65 Type 2 diabetes mellitus with hyperglycemia (principal); D72.829 Elevated white blood cell count, unspecified; Z20.822 Contact with and (suspected) exposure to COVID-19; J02.9 Acute pharyngitis, unspecified; R42 Dizziness and giddiness; F41.9 Anxiety disorder, unspecified; E78.5 Hyperlipidemia, unspecified; Z79.02 Long term (current) use of antithrombotics/antiplatelets; F17.210 Nicotine dependence, cigarettes, uncomplicated
CPT/HCPCS: 0241U; 36415; 71046; 80048; 81003; 82607; 82746; 84443; 85025; 86308; 87651; 93005; 99283; 99284

== ENCOUNTER 2021-02-15 15:05 | Emergency (ER) | payer OTHER, SELFPAY ==
--- NOTE | ~2021-02-15 | US_ITS ---
EXAMINATION: US RETROPERITONEAL LIMITED (RENAL ONLY) CLINICAL INFORMATION: Bilateral flank pain and hematuria. COMPARISON: 04/05/2019 TECHNIQUE: Multiple targeted sonographic views the kidneys obtained. FINDINGS: RIGHT KIDNEY: 11.3 x 4.6 x 6.0 cm (SAG x AP x TRV). The kidney is normal in size, contour, and echogenicity. Renal cortical thickness is normal. No calculi or focal parenchymal lesions. No hydronephrosis. LEFT KIDNEY: 10.7 x 5.2 x 4.9 cm (SAG x AP x TRV). The kidney is normal in size, contour, and echogenicity. Renal cortical thickness is normal. No focal parenchymal lesions. No hydronephrosis. 0.8 cm nonobstructing mid pole echogenic probable calculi noted on the left Incidental note is made of diffuse fatty infiltration of the visualized liver. US/US renal BI IMPRESSION: Echogenic foci likely representing a nonobstructing left sided calculi. This was not readily seen on the prior 2019 CT scan. No hydronephrosis.
[2021-02-15 15:17] VITALS: BP 138/94; PULSE 103; RESP 18; TEMP 36.6; O2SAT 96; BMI 36.6
[2021-02-15 18:13] VITALS: BP 117/72; PULSE 84; RESP 18; O2SAT 100
[2021-02-15 18:13] LABS: Urine Pregnancy NEGATIVE (NEGATIVE)
[2021-02-15 18:14] LABS: UPreg QC Valid YES
[2021-02-15 18:16] LABS: Appearance Urine CLEAR; Color Urine YELLOW; Glucose Urine UA NEG (NEG); Leukocyte Esterase Urine NEG (NEG); Nitrite Urine NEG (NEG); PH 5.5 (5.0-8.0); Specific Gravity - Urine 1.025 (1.005-1.025); Urine Blood 3+ (NEG); Urine Ketones NEG (NEG); Urine Protein 1+ MG/DL (NEG-TRACE)
[2021-02-15 18:32] LABS: Squamous Epithelial Cell Urine 4+ /LPF; WBC Urine 0-2 /HPF (0-4)
--- NOTE | 2021-02-15 18:33 | ED_ITS ---
HPI - Abdominal Pain General Chief Complaint: Abdominal Pain Stated Complaint: blood in urine and abd pain Time Seen by Provider: 02/15/21 17:22 Source: patient Mode of arrival: ambulatory History of Present Illness HPI narrative: 45-year-old female with a past medical history of diabetes, hyperlipidemia, obesity, , umbilical hernia repair, presenting to the ED complaining of lower abdominal pain radiating to back/bilateral flank x1 week with associated hematuria, frequency, and urgency. Denies fever, chills, nausea/vomiting, vaginal bleeding/discharge MD elicited complaint: abdominal pain Related Data Home Medications Medication Instructions Recorded Confirmed ergocalciferol (vitamin D2) 1,250 1,250 mcg PO QWEEK 04/29/20 10/20/20 mcg (50,000 unit) capsule blood sugar diagnostic #10 ea 10/20/20 10/20/20 Previous Rx's Medication Instructions Recorded oxycodone-acetaminophen [Percocet] 1 tab PO Q6H PRN #14 tab 08/21/20 lisinopril 2.5 mg tablet 2.5 mg PO DAILY #30 tab 10/12/20 atorvastatin 20 mg tablet 20 mg PO BEDTIME 90 Days #90 tab 10/20/20 mecobalamin (vitamin B12) 1,000 1,000 mcg SUBLINGUAL DAILY 30 Days 10/20/20 mcg disintegrating #30 tab tablet,sublingual FreeStyle Tiff 14 Day Sensor #2 ea NS 12/02/20 ketorolac 10 mg PO Q6H PRN 5 Days #14 tab 02/15/21 tamsulosin [Flomax] 0.4 mg PO DAILY #14 cap 02/15/21 Allergies Allergy/AdvReac Type Severity Reaction Status Date / Time latex [LATEX] Allergy Mild RASH Verified 12/08/20 13:00 Review of Systems Review of Systems Constitutional: No Fever, No Chills, No Fatigue, No Malaise Cardiovascular: No Chest Pain, No SOB Respiratory: No Cough, No Dyspnea Gastrointestinal: No Nausea, No Vomiting, No Diarrhea, No Constipation, + Abdominal pain Genitourinary: No irregular bleeding, No Dysuria, + Urinary Frequency, + Hematuria, + Urgency, +Flank Pain Musculoskeletal: No joint pain Skin: No Skin Lesions, No rash Neuro: No Weakness, No Numbness Yes all other systems are reviewed and are negative Physical Exam Vital Signs: Vital Signs: Last Vital Signs Temp 97.9 F 02/15/21 15:17 Pulse 84 02/15/21 18:13 Resp 18 02/15/21 18:13 BP 117/72 02/15/21 18:13 Pulse Ox 100 02/15/21 18:13 Body Mass Index 36.6 Const: General: cooperative, healthy appearing and no acute distress Orientation/consciousness: patient oriented x3 Limitations: no limitations HENMT: Head: Yes normal to inspection Ears: hearing grossly normal bilaterally General nose exam: Normal external nose present Face and sinus: Yes normal facial exam Eyes: General: appearance normal, both eyes and all related structures EOM: EOMs intact bilaterally Neck: Neck: Yes normal visual inspection and Yes no meningeal signs Resp: Effort & Inspection: normal respiratory effort and no respiratory distress Cardio: Rate: regular rate GI: Inspection: Yes normal to inspection Palpation (GI): Soft to palpation, nontender, no guarding and not rigid : General: Yes no CVA tenderness Back/Spine/Pelvis: Back: no CVA tenderness Skin: Rashes: no rashes Wounds: no wounds Neuro: General: patient oriented x3 and no meningeal signs Gait exam (Neuro): Normal gait present Extrem: General: Yes normal to inspection Course Course Course Narrative: -leukocytosis of 15.5 which appears chronic, renal function WNL, labs otherwise unremarkable -UA with RBCs/not infected, negative 1922--US renal BI IMPRESSION: Echogenic foci likely representing a nonobstructing left sided calculi. This was not readily seen on the prior 2019 CT scan. No hydronephrosis. >> patient likely passed kidney stone these results were discussed with patient, will prescribe Flomax, Toradol, and have her follow-up with Urology MDM - Abdominal Pain MDM Narrative Medical decision making narrative: 45-year-old female with a past medical history of diabetes, hyperlipidemia, obesity, , umbilical hernia repair, presenting to the ED complaining of lower abdominal pain radiating to back/bilateral flank x1 week with associated hematuria, frequency, and urgency. On exam initially tachycardic, NAD/nontoxic appearing, abdomen is soft/non tender, no CVAT. Urine it is dark/hematuria. Concern for UTI vs pyelo vs renal stone. Lower concern for ovarian torsion/cyst or appendicitis/diverticulitis without tenderness on exam. Plan: Labs, UA, IVF, reassess Medical Records Attestation: I reviewed the patient's medical records. Lab Data Attestation: I reviewed the patient's lab results. Result diagrams: 02/15/21 18:37 02/15/21 18:37 Labs: Lab Results 02/15/21 02/15/21 02/15/21 Range/Units 17:59 17:59 18:37 WBC 15.5 H (4.8-10.8) X10*3/uL RBC 4.80 (4.20-5.50) X10*6/uL Hgb 12.7 (12.0-16.0) g/dl Hct 37.6 (37-47) % MCV 78.3 L (80-98) fL MCH 26.5 L (27.0-33.0) pg MCHC 33.8 (31.0-35.0) g/dl RDW 15.5 (11.0-16.0) % Plt Count 256 (160-400) X10*3/uL MPV 11.2 (9.4-12.3) fL Immature Gran % (Auto) 0.3 (0.0-0.4) % Neut % (Auto) 69.6 (45-73) % Lymph % (Auto) 25.1 (20-40) % [place] % (Auto) 3.4 (2-11) % Eos % (Auto) 1.2 (0-4) % Baso % (Auto) 0.4 (0-2) % Lymph # (Auto) 3.9 (1.2-4.9) X10*3/uL [place] # (Auto) 0.5 (0.1-1.2) X10*3/uL Eos # (Auto) 0.2 (0.0-0.4) X10*3/uL Baso # (Auto) 0.1 (0.0-0.2) X10*3/uL Abs Immat Gran (auto) 0.05 H (0.00-0.03) X10*3/uL Absolute Neuts (auto) 10.8 H (2.0-8.3) X10*3/uL Absolute Nucleated RBC 0.000 (0.0-0.012) X10*3/uL Nucleated RBC % (auto) 0.0 (0.0-0.2) /100WBC Sodium (135-145) mmol/L Potassium (3.3-5.1) mmol/L Chloride (96-108) mmol/L Carbon Dioxide (22-29) mmol/L Anion Gap (12-20) BUN (9-16) mg/dL Creatinine (0.5-1.4) mg/dL Estim Creat Clear Calc Estimated GFR Random Glucose (60-115) mg/dL Calcium (8.4-10.2) mg/dL Magnesium (1.6-2.6) mg/dL Total Bilirubin (0.0-1.0) mg/dL AST (5-31) U/L ALT (0-31) U/L Alkaline Phosphatase (39-117) U/L Total Creatine Kinase (26-140) U/L Total Protein (6.5-8.0) g/dL Albumin (3.5-5.0) g/dL Lipase (8-78) U/L Urine Color YELLOW Urine Appearance CLEAR Urine pH 5.5 (5.0-8.0) Ur Specific [place] 1.025 (1.005-1.025) Urine Protein 1+ H (NEG-TRACE) MG/DL Urine Glucose (UA) NEG (NEG) MG/DL Urine Ketones NEG (NEG) MG/DL Urine Blood 3+ H (NEG) Urine Nitrite NEG (NEG) Ur Leukocyte Esterase NEG (NEG) Urine RBC 1-4 (0) /HPF Urine WBC 0-2 (0-4) /HPF Ur Squamous Epith Cells 4+ /LPF Urine Bacteria NONE /LPF Urine Test NEGATIVE (NEGATIVE) 02/15/21 Range/Units 18:37 WBC (4.8-10.8) X10*3/uL RBC (4.20-5.50) X10*6/uL Hgb (12.0-16.0) g/dl Hct (37-47) % MCV (80-98) fL MCH (27.0-33.0) pg MCHC (31.0-35.0) g/dl RDW (11.0-16.0) % Plt Count (160-400) X10*3/uL MPV (9.4-12.3) fL Immature Gran % (Auto) (0.0-0.4) % Neut % (Auto) (45-73) % Lymph % (Auto) (20-40) % [place] % (Auto) (2-11) % Eos % (Auto) (0-4) % Baso % (Auto) (0-2) % Lymph # (Auto) (1.2-4.9) X10*3/uL [place] # (Auto) (0.1-1.2) X10*3/uL Eos # (Auto) (0.0-0.4) X10*3/uL Baso # (Auto) (0.0-0.2) X10*3/uL Abs Immat Gran (auto) (0.00-0.03) X10*3/uL Absolute Neuts (auto) (2.0-8.3) X10*3/uL Absolute Nucleated RBC (0.0-0.012) X10*3/uL Nucleated RBC % (auto) (0.0-0.2) /100WBC Sodium 139 (135-145) mmol/L Potassium 4.8 (3.3-5.1) mmol/L Chloride 104 (96-108) mmol/L Carbon Dioxide 24 (22-29) mmol/L Anion Gap 16 (12-20) BUN 9 (9-16) mg/dL Creatinine 0.85 (0.5-1.4) mg/dL Estim Creat Clear Calc 98.8 Estimated GFR > 60 Random Glucose 224 H (60-115) mg/dL Calcium 9.0 (8.4-10.2) mg/dL Magnesium 2.0 (1.6-2.6) mg/dL Total Bilirubin 0.6 (0.0-1.0) mg/dL AST 16 (5-31) U/L ALT 16 (0-31) U/L Alkaline Phosphatase 99 (39-117) U/L Total Creatine Kinase 59 (26-140) U/L Total Protein 7.4 (6.5-8.0) g/dL Albumin 3.7 (3.5-5.0) g/dL Lipase 41 (8-78) U/L Urine Color Urine Appearance Urine pH (5.0-8.0) Ur Specific [place] (1.005-1.025) Urine Protein (NEG-TRACE) MG/DL Urine Glucose (UA) (NEG) MG/DL Urine Ketones (NEG) MG/DL Urine Blood (NEG) Urine Nitrite (NEG) Ur Leukocyte Esterase (NEG) Urine RBC (0) /HPF Urine WBC (0-4) /HPF Ur Squamous Epith Cells /LPF Urine Bacteria /LPF Urine Test (NEGATIVE) Discharge Plan Discharge Clinical Impression: Renal calculus Hematuria Qualifiers: Hematuria type: unspecified type Qualified Code(s): R31.9 - Hematuria, unspecified Patient Disposition: Home, Self-Care Instructions: Kidney Stones (ED) Additional Instructions: Your blood work is reassuring today, however your urine has a lot of blood in it Your ultrasound is showing a stone in the your left kidney, it is likely your are passing a stone Flomax to help dilate your urethra to aid in passing the stone Toradol it is a pain medication/anti-inflammatory Please follow-up with Urology, call to make an appointment in 1 week If her pain persists or worsens, becomes unbearable, you have fever, you are unable to pee, persistent nausea/vomiting please return to the ED Prescriptions: New tamsulosin [Flomax] 0.4 mg capsule 0.4 mg PO DAILY Qty: 14 RF: 0 ketorolac 10 mg tablet 10 mg PO Q6H PRN (Reason: pain) 5 Days Qty: 14 RF: 0 No Action lisinopril 2.5 mg tablet 2.5 mg PO DAILY Qty: 30 RF: 4 (DME) FreeStyle Tiff 14 Day Sensor Kit See Rx Instructions .ROUTE .MEDSUPPLY Qty: 2 RF: 11 oxycodone-acetaminophen [Percocet] 5-325 mg tablet 1 tab PO Q6H PRN (Reason: pain) Qty: 14 RF: 0 ergocalciferol (vitamin D2) 1,250 mcg (50,000 unit) capsule 1,250 mcg PO QWEEK RF: 0 (DME) FreeStyle Precision Haresh Strips Strip See Rx Instructions strip .ROUTE DAILY Qty: 10 RF: 0 atorvastatin 20 mg tablet 20 mg PO BEDTIME 90 Days Qty: 90 RF: 1 mecobalamin (vitamin B12) 1,000 mcg tablet,disintegrating 1,000 mcg sublingual DAILY 30 Days Qty: 30 RF: 3 Referrals: Tin Pierre MD [Physician] - 1 week [facility] Past Medical History Attestation statement: The following information was validated with the patient. Medical History B12 deficiency Diabetes type 2, uncontrolled Diabetic nephropathy associated with type 2 diabetes mellitus Dyslipidemia Hirsutism Obesity (BMI 30-39.9) Vitamin D deficiency Surgical History History of ankle surgery Hx of section Hx of umbilical hernia repair Family History Family History Father Throat cancer Cirrhosis Mother Diabetes Social History Social History Cigarettes Per Day: 10 Years Smoked: 30 Advance Directives: Yes Advance Directives on File: Yes Advance Directives Date on File: 04/25/18 Patient : Yes
[2021-02-15 18:42] LABS: MANUAL DIFF FLAG NO
[2021-02-15 18:44] LABS: Basophils Absolute Auto 0.1 X10*3/uL (0.0-0.2); Basophils Percent Auto 0.4 % (0-2); Eosinophils Absolute Auto 0.2 X10*3/uL (0.0-0.4); Eosinophils Percent Auto 1.2 % (0-4); Hematocrit 37.6 % (37-47); Hemoglobin 12.7 g/dl (12.0-16.0); Imm Gran Abs Auto 0.05 X10*3/uL (0.00-0.03); Imm Gran Pct Auto 0.3 % (0.0-0.4); Lymphocytes Absolute Auto 3.9 X10*3/uL (1.2-4.9); Lymphocytes Percent Auto 25.1 % (20-40); Mean Corpuscular HGB Conc 33.8 g/dl (31.0-35.0); Mean Corpuscular Hemoglobin 26.5 pg (27.0-33.0); Mean Corpuscular Volume 78.3 fL (80-98); Mean Platelet Volume 11.2 fL (9.4-12.3); Monocytes Absolute Auto 0.5 X10*3/uL (0.1-1.2); Monocytes Percent Auto 3.4 % (2-11); Neutrophils Absolute Auto 10.8 X10*3/uL (2.0-8.3); Neutrophils Percent Auto 69.6 % (45-73); Platelet Count 256 X10*3/uL (160-400); Red Cell Distribution Width 15.5 % (11.0-16.0); White Blood Count 15.5 X10*3/uL (4.8-10.8)
[2021-02-15] MEDS: Famotidine/PF 20 MG/2 ML VIAL IVPUSH (19:05)
[2021-02-15] MEDS: 0.9 % Sodium Chloride 1,000 ML 999 ML IVCONT (19:05)
[2021-02-15] MEDS: Magnesium Hydrox/Alum Hydrox 30 ML ORAL.SUSP PO (19:05)
--- NOTE | 2021-02-15 19:05 | PC.NURSE ---
Pt returns from U/S. Medicated per SEP.
[2021-02-15 19:10] LABS: Alanine Aminotransferase 16 U/L (0-31); Albumin Level 3.7 g/dL (3.5-5.0); Alkaline Phosphatase 99 U/L (39-117); Anion Gap 16 (12-20); Aspartate Amino Transferase 16 U/L (5-31); Bilirubin Total 0.6 mg/dL (0.0-1.0); Blood Urea Nitrogen 9 mg/dL (9-16); Carbon Dioxide 24 mmol/L (22-29); Chloride 104 mmol/L (96-108); Creatinine Clr Calc Pharmacy 98.8; Estimated Glomerular Filt Rate > 60; Glucose Random 224 mg/dL (60-115); Lipase 41 U/L (8-78); Potassium 4.8 mmol/L (3.3-5.1); Sodium 139 mmol/L (135-145); Total Protein 7.4 g/dL (6.5-8.0)
[2021-02-15] MEDS: Ketorolac Tromethamine 15 MG/ML VIAL IVPUSH (19:32)
--- NOTE | 2021-02-15 19:33 | PC.NURSE ---
PA at bedside discussing U/S results and plan for DC. Pt medicated per MAR with Toradol. Continue to monitor.
[2021-02-15 19:49] VITALS: BP 110/65; PULSE 73; RESP 16
== END 2021-02-15 19:55 | disposition home or self-care (01) ==
PROVIDERS: Physician Assistant; Emergency Provider Emergency Medicine; PCP Internal Medicine
DX: N20.0 Calculus of kidney (principal); R31.9 Hematuria, unspecified; R10.30 Lower abdominal pain, unspecified; E11.9 Type 2 diabetes mellitus without complications; E78.5 Hyperlipidemia, unspecified; E66.9 Obesity, unspecified; Z68.30 Body mass index [BMI] 30.0-30.9, adult; Z79.02 Long term (current) use of antithrombotics/antiplatelets; Z79.899 Other long term (current) drug therapy
CPT/HCPCS: 36415; 76775; 80053; 81001; 81025; 82550; 83690; 83735; 85025; 96361; 96374; 96375; 99284; J1885

== ENCOUNTER 2021-03-30 19:28 | Inpatient (IN) | payer OTHER, SELFPAY ==
--- NOTE | ~2021-03-30 | CT_ITS ---
EXAMINATION: CT ABDOMEN AND PELVIS WITHOUT CONTRAST CLINICAL INFORMATION: Flank pain and hematuria. COMPARISON: Renal ultrasound February 15, [address] abdomen pelvis April 05, 2019 TECHNIQUE: Multidetector volumetric imaging was performed from the superior aspect of the liver through the pubic symphysis. Sagittal and coronal reformatted images were obtained on the technologist's workstation. This CT examination was performed using dose optimization techniques as appropriate, variously including the following: *Automated exposure control *Adjustment of mA and/or kV according to patient size (this includes techniques or standardized protocols for targeted exams where dose is matched to indication/reason for exam; i.e. extremities or head) *Use of iterative reconstruction technique DLP: 806 mGy-cm FINDINGS: Visualized lung bases are well aerated. The liver is mildly enlarged and demonstrates diffusely decreased attenuation. The gallbladder is unremarkable in appearance. The pancreas and spleen are unremarkable. Small inferior splenule. Mildly hypertrophied adrenal glands bilaterally. Symmetrically sized kidneys. 2 mm nonobstructing calculus within the upper pole of the left kidney. No right-sided renal calculi. No hydronephrosis of either kidney. The stomach is relatively decompressed. Normal caliber loops of small and large bowel. There is mild colonic diverticulosis. Abutting the sigmoid colon there is subtle mesenteric stranding and an ill-defined fluid collection with a few foci of air. This structure measures approximately 3.3 x 2.7 cm (image 70/92, series 3). Again demonstrated is a tiny fat-containing umbilical hernia with a larger supraumbilical hernia which is again noted to contain nonobstructed transverse colon. Fascial defect of this large hernia measures approximately 2.7 x 2.8 cm in transverse by craniocaudal dimension. Normal caliber abdominal aorta which demonstrates only mild atherosclerotic disease. The bladder is normal in appearance. Unremarkable CT appearance of the uterus. No inguinal lymphadenopathy. Mild degenerative changes of the spine. CT/CT abdomen pelvis wo con IMPRESSION: 1. Colonic diverticulosis. There is pericolonic stranding and ill-defined approximately 3 cm fluid collection within the left hemipelvis, abutting the sigmoid colon. Findings are most suggestive of active diverticulitis with localized perforation and small abscess. Clinical correlation is recommended. Follow-up imaging also recommended status post treatment to ensure resolution. 2. Diffusely decreased liver attenuation suggesting hepatic steatosis. Correlation with liver enzymes recommended. 3. 2 mm nonobstructing left renal calculus. No hydronephrosis. 4. Similar supraumbilical hernia containing a loop of nonobstructed transverse colon.
--- NOTE | ~2021-03-30 | CT_ITS ---
EXAMINATION: CT ABDOMEN AND PELVIS WITH CONTRAST CLINICAL INFORMATION: Follow up diverticulitis. Rule out abscess. COMPARISON: Previous CT scan of the abdomen and pelvis most recent 03/30/2021 TECHNIQUE: Multidetector volumetric images were obtained from the superior aspect of the liver through the pubic symphysis following administration 85 mL of Omnipaque 350 intravenous contrast. Sagittal and coronal reformatted images were obtained on the technologist's workstation. Oral contrast: Yes This CT examination was performed using dose optimization techniques as appropriate, variously including the following: *Automated exposure control *Adjustment of mA and/or kV according to patient size (this includes techniques or standardized protocols for targeted exams where dose is matched to indication/reason for exam; i.e. extremities or head) *Use of iterative reconstruction technique DLP: 805 mGy-cm FINDINGS: LUNG BASES: The visualized lung bases are unremarkable. LIVER, GALLBLADDER, AND BILIARY TREE: The liver is low in attenuation suggestive of fatty infiltration. The gallbladder is normal. There is no biliary duct dilatation. PANCREAS: Unremarkable. SPLEEN: Unremarkable. ADRENAL GLANDS: Unremarkable. KIDNEYS AND URETERS: The kidneys are normal in size, shape, and attenuation. No hydronephrosis, hydroureter, or calculi seen. There is a left renal cyst. BLADDER: Not optimally distended. GASTROINTESTINAL TRACT: There is diverticulosis of the colon. There is wall thickening of the sigmoid colon and stranding of the fat suggestive of sigmoid diverticulitis. There is a small fluid collection to the left of the distal sigmoid colon in the pelvis. This measures 3.5 x 3.7 cm in transverse and AP dimension compared to 2.7 x 3.3 cm on 03/30/2021 exam is minimally increased in size. This has a thick wall. Differential would include a small abscess versus a contained perforation. There is a small amount of fluid in the pelvis and. There is a small amount of fat stranding and fluid in the presacral space. There is a supra umbilical hernia containing transverse colon and fat. There is no evidence of obstruction. Small and large bowel is otherwise normal. The appendix is normal. ABDOMINAL WALL: Supraumbilical hernia containing fat and transverse colon. Small umbilical hernia containing fat. LYMPH NODES: Normal. VASCULAR: Unremarkable. PELVIC VISCERA: Unremarkable. OSSEOUS STRUCTURES: Unremarkable. CT/CT abdomen pelvis w con IMPRESSION: Sigmoid diverticulitis. Slight interval increase in the fluid collection adjacent to the left distal sigmoid colon suggestive of abscess or contained perforation. This now measures 3.5 x 3.7 cm. Supraumbilical hernia containing fat and transverse colon. No evidence of obstruction. Fatty liver.
--- NOTE | ~2021-03-30 | CT_ITS ---
EXAMINATION: CT ABDOMEN AND PELVIS WITH CONTRAST CLINICAL INFORMATION: Diverticular abscess. COMPARISON: 04/01/2021 TECHNIQUE: Multidetector volumetric images were obtained from the superior aspect of the liver through the pubic symphysis following administration 85 mL of Omnipaque 350 intravenous contrast. Sagittal and coronal reformatted images were obtained on the technologist's workstation. This CT examination was performed using dose optimization techniques as appropriate, variously including the following: *Automated exposure control *Adjustment of mA and/or kV according to patient size (this includes techniques or standardized protocols for targeted exams where dose is matched to indication/reason for exam; i.e. extremities or head) *Use of iterative reconstruction technique DLP: 843 mGy-cm FINDINGS: LUNG BASES: Scattered linear, hazy opacities of mild atelectasis. No pulmonary consolidation or pleural effusion at either lung base. LIVER: Diffuse hepatic steatosis and hepatosplenomegaly. No liver abscess. GALLBLADDER AND BILIARY TREE: Gallbladder is underdistended. No radiopaque gallstones, wall thickening or pericholecystic fluid. No intrahepatic or extrahepatic bile duct dilatation. PANCREAS: Normal. No edema, pancreatic ductal dilatation or mass. SPLEEN: 12.5 cm maximum dimension. No focal splenic lesion. ADRENAL GLANDS: Normal. KIDNEYS AND URETERS: No new abnormality. No nephrolithiasis or hydronephrosis. BLADDER: Normal. No calculi or wall thickening. BOWEL AND PERITONEUM: No dilated bowel loops. The appendix is normal. Multiple diverticula of the descending and sigmoid colon. Again noted is a perisigmoid collection that contains fluid and gas. This thick-walled collection extends posteroinferior to the sigmoid, lateral to the proximal rectum, and currently measures 3.2 x 3.4 x 3.7 cm (3.4 x 3.4 x 4 cm on 04/01/2021. The amount of gas within the abscess has decreased compared to 04/01/2021. ABDOMINAL WALL: The ventral hernia superior to the umbilicus contains fat and short segment of unobstructed transverse colon. VASCULATURE: Mild atherosclerosis of the abdominal aorta without aneurysm. LYMPH NODES: No pathologic sized lymph nodes in the abdomen or pelvis. No inguinal lymphadenopathy. PELVIC VISCERA: The uterus and adnexa are unremarkable. SKELETAL: No suspicious skeletal lesions. CT/CT abdomen pelvis w con IMPRESSION: * In this patient with sigmoid diverticulitis, the perisigmoid abscess has slightly decreased in size compared to 04/01/2021. * Diffuse hepatic steatosis and hepatomegaly. * Again noted is the supraumbilical abdominal wall hernia that contains fat and unobstructed transverse colon.
[2021-03-30 19:34] VITALS: BP 135/88; BP 138/80; PULSE 100; PULSE 113; RESP 18; TEMP 36.3; O2SAT 97; O2SAT 99; BMI 54.8
[2021-03-30 21:16] LABS: Basophils Absolute Auto 0.1 X10*3/uL (0.0-0.2); Basophils Percent Auto 0.4 % (0-2); Eosinophils Absolute Auto 0.2 X10*3/uL (0.0-0.4); Eosinophils Percent Auto 1.1 % (0-4); Hematocrit 36.4 % (37-47); Hemoglobin 12.5 g/dl (12.0-16.0); Imm Gran Abs Auto 0.09 X10*3/uL (0.00-0.03); Imm Gran Pct Auto 0.5 % (0.0-0.4); Lymphocytes Absolute Auto 4.3 X10*3/uL (1.2-4.9); Lymphocytes Percent Auto 23.4 % (20-40); MANUAL DIFF FLAG SCAN; Mean Corpuscular HGB Conc 34.3 g/dl (31.0-35.0); Mean Corpuscular Volume 75.8 fL (80-98); Mean Platelet Volume 11.3 fL (9.4-12.3); Monocytes Absolute Auto 0.8 X10*3/uL (0.1-1.2); Monocytes Percent Auto 4.3 % (2-11); Neutrophils Percent Auto 70.3 % (45-73); Platelet Count 326 X10*3/uL (160-400); Red Cell Distribution Width 14.6 % (11.0-16.0); SCAN SMEAR FLAG 1; White Blood Count 18.4 X10*3/uL (4.8-10.8)
--- NOTE | 2021-03-30 21:25 | ED.ABDPAIN ---
HPI - Abdominal Pain General Chief Complaint: Back Pain/Injury Stated Complaint: Flank Pain Time Seen by Provider: 03/30/21 21:19 Source: patient Mode of arrival: ambulatory Limitations: no limitations History of Present Illness MD elicited complaint: flank pain and other (constipation) Pertinent past history: kidney stones Onset (ago): day(s) (5) Pain Consistency: constant Location: L flank, R flank and other (back ) Severity: moderate Quality: aching and dull Radiation: none Migration to: no migration Exacerbating factors: bowel movement Relieving factors: nothing Associated symptoms: constipation and dysuria Related Data Home Medications Medication Instructions Recorded Confirmed ergocalciferol (vitamin D2) 1,250 1,250 mcg PO QWEEK 04/29/20 10/20/20 mcg (50,000 unit) capsule Previous Rx's Medication Instructions Recorded oxycodone-acetaminophen 5 mg-325 1 tab PO Q6H PRN #14 tab 08/21/20 mg tablet (Percocet) mecobalamin (vitamin B12) 1,000 1,000 mcg SUBLINGUAL DAILY 30 Days 10/20/20 mcg disintegrating #30 tab tablet,sublingual ketorolac 10 mg tablet 10 mg PO Q6H PRN 5 Days #14 tab 02/15/21 tamsulosin 0.4 mg capsule (Flomax) 0.4 mg PO DAILY #14 cap 02/15/21 lisinopril 2.5 mg tablet 2.5 mg PO DAILY 30 Days #30 tab 03/05/21 FreeStyle Tiff 14 Day Sensor #2 ea NS 03/15/21 (flash glucose sensor) atorvastatin 20 mg tablet 20 mg PO BEDTIME 90 Days #90 tab 03/15/21 blood sugar diagnostic #100 ea 03/15/21 Allergies Allergy/AdvReac Type Severity Reaction Status Date / Time latex [LATEX] Allergy Mild RASH Verified 12/08/20 13:00 Review of Systems Review of Systems Constitutional : No Weight loss, No Fever, No Chills ENT/Mouth : No sore throat, No Rhinorrhea Eyes: No Swelling, No Redness Cardiovascular : No Chest Pain, No SOB, NoEdema Respiratory : No Cough, No Sputum, No Wheezing Gastrointestinal : Positive Nausea, no Vomiting,no Diarrhea, positive abdominal Pain, No Hematochezia, No Melena, pos constipation Genitourinary : pos Dysuria, No Urinary Frequency, pos Hematuria, No Urgency Musculoskeletal : No joint pain, No Myalgias, No Joint Swelling, pos back pain Skin : No Skin Lesions, No rash Neuro : No Weakness, No Numbness, No Dizziness, No Headache Psych : No Anxiety/Panic, No Depression Heme/Lymph: No Bruising, No Lymphadenopathy Endocrine : No Polyuria, No Polydipsia All other systems reviewed and are negative. Physical Exam Vital Signs: Vital Signs: Last Vital Signs Temp 99.1 F 03/30/21 22:00 Pulse 87 03/30/21 22:00 Resp 16 03/30/21 22:00 BP 101/60 03/30/21 22:00 Pulse Ox 98 03/30/21 22:00 Body Mass Index 54.8 Appearance: Alert. Oriented X3. No acute distress. Eyes: Pupils equal, round and reactive to light. ENT: Pharynx normal. Neck: Normal inspection. Neck supple. CVS: Normal heart rate and rhythm. Pulses normal. Respiratory: No respiratory distress. Breath sounds normal. Abdomen: Soft and mild ttp in lower abdomen but no rebound or guarding Back: bilateral flank ttp ttp in lumbar spine Skin: Skin warm and dry. Normal skin color. Normal skin turgor. Extremities: No lower extremity edema. Neuro: Oriented X 3. No motor deficit. No sensory deficit. Course Course Course Narrative: CT scan shows possible diverticular infection will obtain lactic blood cultures and start on IV abx 1104pm, infection suspected at this time 1104pm call to Dr. Gómez 118pm - will admit patient MDM - Abdominal Pain MDM Narrative Medical decision making narrative: 45 yo female with COPD, DM, HLD here with 4 days of constipation and back pain with dysuria - at this time will need labs, UA, CT scan for obstruction/renal colic, dispo per results and findings. Differential Diagnosis Differential diagnosis: Likely calculus of kidney, constipation, diverticulitis, renal colic and small bowel obstruction; Unlikely acute appendicitis, bowel perforation, ovarian cyst or peptic ulcer disease Lab Data Result diagrams: 03/30/21 21:09 03/30/21 21:09 Labs: Lab Results 03/30/21 03/30/21 03/30/21 Range/Units 21:09 21:09 21:22 WBC 18.4 H (4.8-10.8) X10*3/uL RBC 4.80 (4.20-5.50) X10*6/uL Hgb 12.5 (12.0-16.0) g/dl Hct 36.4 L (37-47) % MCV 75.8 L (80-98) fL MCH 26.0 L (27.0-33.0) pg MCHC 34.3 (31.0-35.0) g/dl RDW 14.6 (11.0-16.0) % Plt Count 326 D (160-400) X10*3/uL MPV 11.3 (9.4-12.3) fL Immature Gran % (Auto) 0.5 H (0.0-0.4) % Neut % (Auto) 70.3 (45-73) % Lymph % (Auto) 23.4 (20-40) % [place] % (Auto) 4.3 (2-11) % Eos % (Auto) 1.1 (0-4) % Baso % (Auto) 0.4 (0-2) % Lymph # (Auto) 4.3 (1.2-4.9) X10*3/uL [place] # (Auto) 0.8 (0.1-1.2) X10*3/uL Eos # (Auto) 0.2 (0.0-0.4) X10*3/uL Baso # (Auto) 0.1 (0.0-0.2) X10*3/uL Abs Immat Gran (auto) 0.09 H (0.00-0.03) X10*3/uL Absolute Neuts (auto) 13.0 H (2.0-8.3) X10*3/uL Absolute Nucleated RBC 0.000 (0.0-0.012) X10*3/uL Nucleated RBC % (auto) 0.0 (0.0-0.2) /100WBC Smear Tech's Comments VERIFIED Sodium 136 (135-145) mmol/L Potassium 3.8 D (3.3-5.1) mmol/L Chloride 106 (96-108) mmol/L Carbon Dioxide 23 (22-29) mmol/L Anion Gap 11 L (12-20) BUN 7 L (9-16) mg/dL Creatinine 0.81 (0.5-1.4) mg/dL Estim Creat Clear Calc 118.2 Estimated GFR > 60 Random Glucose 204 H (60-115) mg/dL Calcium 9.0 (8.4-10.2) mg/dL Total Bilirubin 0.7 (0.0-1.0) mg/dL AST 14 (5-31) U/L ALT 19 (0-31) U/L Alkaline Phosphatase 106 (39-117) U/L Total Protein 7.5 (6.5-8.0) g/dL Albumin 3.8 (3.5-5.0) g/dL Lipase 34 (8-78) U/L Urine Color YELLOW Urine Appearance CLEAR Urine pH 6.0 (5.0-8.0) Ur Specific [place] 1.025 (1.005-1.025) Urine Protein NEG (NEG-TRACE) MG/DL Urine Glucose (UA) NEG (NEG) MG/DL Urine Ketones NEG (NEG) MG/DL Urine Blood NEG (NEG) Urine Nitrite NEG (NEG) Ur Leukocyte Esterase NEG (NEG) Urine Test (NEGATIVE) 03/30/21 Range/Units 21:22 WBC (4.8-10.8) X10*3/uL RBC (4.20-5.50) X10*6/uL Hgb (12.0-16.0) g/dl Hct (37-47) % MCV (80-98) fL MCH (27.0-33.0) pg MCHC (31.0-35.0) g/dl RDW (11.0-16.0) % Plt Count (160-400) X10*3/uL MPV (9.4-12.3) fL Immature Gran % (Auto) (0.0-0.4) % Neut % (Auto) (45-73) % Lymph % (Auto) (20-40) % [place] % (Auto) (2-11) % Eos % (Auto) (0-4) % Baso % (Auto) (0-2) % Lymph # (Auto) (1.2-4.9) X10*3/uL [place] # (Auto) (0.1-1.2) X10*3/uL Eos # (Auto) (0.0-0.4) X10*3/uL Baso # (Auto) (0.0-0.2) X10*3/uL Abs Immat Gran (auto) (0.00-0.03) X10*3/uL Absolute Neuts (auto) (2.0-8.3) X10*3/uL Absolute Nucleated RBC (0.0-0.012) X10*3/uL Nucleated RBC % (auto) (0.0-0.2) /100WBC Smear Tech's Comments Sodium (135-145) mmol/L Potassium (3.3-5.1) mmol/L Chloride (96-108) mmol/L Carbon Dioxide (22-29) mmol/L Anion Gap (12-20) BUN (9-16) mg/dL Creatinine (0.5-1.4) mg/dL Estim Creat Clear Calc Estimated GFR Random Glucose (60-115) mg/dL Calcium (8.4-10.2) mg/dL Total Bilirubin (0.0-1.0) mg/dL AST (5-31) U/L ALT (0-31) U/L Alkaline Phosphatase (39-117) U/L Total Protein (6.5-8.0) g/dL Albumin (3.5-5.0) g/dL Lipase (8-78) U/L Urine Color Urine Appearance Urine pH (5.0-8.0) Ur Specific [place] (1.005-1.025) Urine Protein (NEG-TRACE) MG/DL Urine Glucose (UA) (NEG) MG/DL Urine Ketones (NEG) MG/DL Urine Blood (NEG) Urine Nitrite (NEG) Ur Leukocyte Esterase (NEG) Urine Test NEGATIVE (NEGATIVE) Discharge Plan Discharge Clinical Impression: Diverticulitis Leukocytosis Qualifiers: Leukocytosis type: unspecified Qualified Code(s): D72.829 - Elevated white blood cell count, unspecified Patient Disposition: Admitted As Inpatient [facility] Past Medical History Attestation statement: The following information was validated with the patient. Medical History B12 deficiency Diabetes type 2, uncontrolled Diabetic nephropathy associated with type 2 diabetes mellitus Dyslipidemia Hirsutism Obesity (BMI 30-39.9) Vitamin D deficiency Surgical History History of ankle surgery Hx of section Hx of umbilical hernia repair Family History Family History Father Throat cancer Cirrhosis Mother Diabetes Social History Social History Cigarettes Per Day: 10 Years Smoked: 30 Advance Directives: No Advance Directives Information Provided: No Advance Directives Date on File: 04/25/18 Patient : No
[2021-03-30 21:33] LABS: Glucose Urine UA NEG (NEG); Leukocyte Esterase Urine NEG (NEG); Nitrite Urine NEG (NEG); Specific Gravity - Urine 1.025 (1.005-1.025); Urine Blood NEG (NEG); Urine Ketones NEG (NEG); Urine Protein NEG (NEG-TRACE)
[2021-03-30 21:35] LABS: Alanine Aminotransferase 19 U/L (0-31); Albumin Level 3.8 g/dL (3.5-5.0); Alkaline Phosphatase 106 U/L (39-117); Anion Gap 11 (12-20); Aspartate Amino Transferase 14 U/L (5-31); Bilirubin Total 0.7 mg/dL (0.0-1.0); Blood Urea Nitrogen 7 mg/dL (9-16); Carbon Dioxide 23 mmol/L (22-29); Chloride 106 mmol/L (96-108); Creatinine Clr Calc Pharmacy 118.2; Estimated Glomerular Filt Rate > 60; Glucose Random 204 mg/dL (60-115); Potassium 3.8 mmol/L (3.3-5.1); Sodium 136 mmol/L (135-145); Total Protein 7.5 g/dL (6.5-8.0)
[2021-03-30 21:37] LABS: SLIDE REVIEW VERIFIED
[2021-03-30 21:43] LABS: Appearance Urine CLEAR; Color Urine YELLOW
[2021-03-30 21:44] LABS: UPreg QC Valid YES; Urine Pregnancy NEGATIVE (NEGATIVE)
[2021-03-30 22:00] VITALS: BP 101/60; PULSE 87; RESP 16; TEMP 37.3; O2SAT 98
[2021-03-30 22:12] LABS: Lipase 34 U/L (8-78)
[2021-03-30] MEDS: Ketorolac Tromethamine 60 MG/2 ML VIAL IM (22:19)
--- NOTE | 2021-03-30 23:15 | PC.NURSE ---
pt requesting to MD to go outside and smoke a cigarette. discussed with MD and Charge nurse who decided pt is not allowed to go outside and return to room. Upon entering pt's room pt and friend eloped. pt not found in ED or restrooms. MD and charge nurse aware of elopement. pt has no iv placed yet at this time.
[2021-03-30] MEDS: 0.9 % Sodium Chloride 1,000 ML 999 ML IV (23:58)
[2021-03-30] MEDS: Piperacillin Sodium/Tazobactam 3.375 GM in 0.9 % Sodium Chloride 50 ML IV (23:58)
[2021-03-31] VITALS (9 sets, daily range): BP systolic 98–121; BP diastolic 61–83; PULSE 83–99; RESP 16–21; TEMP 36.3–36.7; O2SAT 93–100
[2021-03-31 00:03] LABS: COVID-19 Test Negative (Negative); IDNOW Serial# 55D5AD1C
[2021-03-31 00:04] LABS: Lactic Acid 1.1 mmol/L (0.5-2.0)
--- NOTE | 2021-03-31 00:30 | PC.NURSE ---
PT RETURNS TO ROOM FROM OUTSIDE AND VERBALLY AGREED SHE WOULD NOT LEAVE ED TO GO OUTSIDE W/O BEING D/C.
[2021-03-31 00:31] LABS: Glucose, Whole Blood 142 mg/dL (60-115)
[2021-03-31] MEDS: Morphine Sulfate 4 MG/ML CARTRIDGE 3 MG IVPUSH ×3 (01:23→09:26)
[2021-03-31] MEDS: 0.9 % Sodium Chloride 1,000 ML 100 ML IVCONT ×3 (01:44→22:26)
--- NOTE | 2021-03-31 04:37 | PC.NURSE ---
POC on pt was 166 at this time.
[2021-03-31 04:41] LABS: Glucose, Whole Blood 166 mg/dL (60-115)
--- NOTE | 2021-03-31 06:00 | PC.NURSE ---
PT MEDICATED PER EMAR. PT ALERT, RESPIRATIONS EASY, N/L. VS OBTAINED.
[2021-03-31] MEDS: Piperacillin Sodium/Tazobactam 3.375 GM in 0.9 % Sodium Chloride 50 ML IV ×4 (06:45→22:22)
[2021-03-31 07:21] LABS: Hematocrit 33.6 % (37-47); Hemoglobin 11.3 g/dl (12.0-16.0); Mean Corpuscular HGB Conc 33.6 g/dl (31.0-35.0); Mean Corpuscular Hemoglobin 25.6 pg (27.0-33.0); Mean Platelet Volume 11.2 fL (9.4-12.3); Platelet Count 268 X10*3/uL (160-400); Red Blood Count 4.42 X10*6/uL (4.20-5.50); Red Cell Distribution Width 14.6 % (11.0-16.0); White Blood Count 15.1 X10*3/uL (4.8-10.8)
[2021-03-31 07:49] LABS: Anion Gap 12 (12-20); Blood Urea Nitrogen 7 mg/dL (9-16); Calcium 8.2 mg/dL (8.4-10.2); Carbon Dioxide 21 mmol/L (22-29); Chloride 109 mmol/L (96-108); Creatinine Clr Calc Pharmacy 116.7; Estimated Glomerular Filt Rate > 60; Glucose Random 165 mg/dL (60-115); Potassium 4.1 mmol/L (3.3-5.1); Sodium 138 mmol/L (135-145)
--- NOTE | 2021-03-31 08:29 | PM.HPGS ---
History of Present Illness History of Present Illness Date of Service: 04/01/21 Chief complaint: Acute Diverticulitis Narrative: Mckenzie Quiñonez is a 45 year old female who came in last night because of what she described as lower back pain and some lower abdominal pain. She does state that she has had kidney problems in the past and thought that her pain was because of this. She also describes some occasional pain on her abdomen which she said she has had for many years now. She has had hernia repair about 5 years ago in [place] which had recurred. She says that they were planning on repair of this recurrent hernia on the supraumbilical area after she loses weight. She therefore has been seeing a surgeon for this. She denies any nausea or vomiting. She denies any fever or chills. She says that her abdominal pain is not severe. Her main complaint is her pain on her back and flank areas. Review of Systems Constitutional: Constitutional: Denies chills and Denies fever(s) Cardiovascular: Cardiovascular: Denies chest pain, Denies dyspnea and Denies dyspnea on exertion Respiratory: Respiratory: Denies cough, Denies dyspnea and Denies dyspnea on exertion Gastrointestinal: Gastrointestinal: Denies hematochezia and Denies change in bowel habits Genitourinary: Genitourinary: Denies hematuria Musculoskeletal: Musculoskeletal: Denies back pain and Denies limited range of motion Neurologic: Denies focal weakness and Denies convulsions Psychiatric: Psychiatric: Reports anxiety, Denies depression and Denies mood swings PMFSH Past Medical History Medical History B12 deficiency Diabetes type 2, uncontrolled Diabetic nephropathy associated with type 2 diabetes mellitus Dyslipidemia Hirsutism Obesity (BMI 30-39.9) Vitamin D deficiency Family History Family History Father Throat cancer Cirrhosis Mother Diabetes Surgical History Surgical History History of ankle surgery Hx of section Hx of umbilical hernia repair Social History Social History Household Members: Family Housing: House Do you presently have visiting nurse or other home services: No Patient Tobacco Use Status: Current everyday Tobacco user Tobacco use type: Cigarette Cigarette Packs Per Day: 0.5 Cigarettes Per Day: 10.0 Years Smoked: 30 e-Cigarette/Vaping Use: Never Used Advance Directives Date on File: 04/25/18 service: No Current occupational status: unemployed Meds Allergies Allergy/AdvReac Type Severity Reaction Status Date / Time latex [LATEX] Allergy Mild RASH Verified 12/08/20 13:00 Active Medications: Current Medications Generic Name Dose Route Start Last Admin Trade Name Freq PRN Reason Stop Dose Admin Sodium Chloride 1,000 mls @ 100 mls/hr 03/30/21 23:30 03/31/21 01:44 Ns IVCONT 100 mls/hr .Q10H TEMO Administration Piperacillin Sod/Tazobactam 50 mls @ 100 mls/hr 03/31/21 05:00 03/31/21 06:45 Sod 3.375 gm/ Sodium Chloride IV 100 mls/hr Q6H TEMO Administration Lisinopril 2.5 mg 03/31/21 09:00 Lisinopril 2.5 Mg Tablet PO DAILY TEMO Protocol Morphine Sulfate 3 mg 03/30/21 23:30 03/31/21 06:46 Morphine Sulfate 4 Mg/Ml Cartridge IVPUSH 3 mg Q3H PRN Administration pain Protocol Ondansetron HCl 4 mg 03/30/21 23:32 Ondansetron Hcl 4 Mg/2 Ml Vial IVPUSH Q8H PRN Nausea Pharmacy Consult 1 each 03/30/21 23:05 Consult Rx Perform Med Rec MISCELLANE ONCE PRN Consult order Sodium Chloride 3 ml 03/31/21 00:00 03/31/21 02:33 0.9 % Sodium Chloride Flush 3 Ml Syringe IVFLUSH Not Given QSHIFT [facility] Home Medications Medication Instructions Recorded Confirmed Last Taken Type ascorbic acid (vitamin C) 500 mg 500 mg PO DAILY 03/31/21 03/31/21 Unknown History tablet (Vitamin C) biotin 1,000 mcg chewable tablet 1,000 mcg PO DAILY 03/31/21 03/31/21 Unknown History cyanocobalamin (vitamin B-12) 1,000 mcg PO DAILY 03/31/21 03/31/21 Unknown History 1,000 mcg tablet fluticasone 250 mcg-salmeterol 50 1 puff INHALATION Q12H 03/31/21 03/31/21 Unknown History mcg/dose blistr powdr for inhalation (Advair Diskus) Physical Exam Vital Signs: Vital Signs: Last Vital Signs Temp 99.1 F 03/30/21 22:00 Pulse 96 03/31/21 06:00 Resp 18 03/31/21 06:00 BP 113/73 03/31/21 06:00 Pulse Ox 99 03/31/21 06:00 Body Mass Index 54.8 Const: Other: Appears morbidly obese General: comfortable and no acute distress Orientation/consciousness: patient oriented x3 Neck: Neck: Yes no lymphadenopathy Resp: Auscultation: clear to auscultation bilaterally Cardio: Rhythm: regular rhythm GI: Other: Vague hernia in the supraumbilical area, not tender at this time Palpation (GI): Soft to palpation, nontender and no guarding Neuro: General: patient oriented x3 Psych: Affect: Anxious affect present Results Results Labs: Short CBC 03/30/21 03/31/21 Range/Units 21: 07:08 WBC 18.4 H 15.1 H (4.8-10.8) X10*3/uL Hgb 12.5 11.3 L (12.0-16.0) g/dl Hct 36.4 L 33.6 L (37-47) % Plt Count 326 D 268 (160-400) X10*3/uL BMP 03/30/21 03/31/21 21:09 07:08 Sodium 136 138 Potassium 3.8 D 4.1 Chloride 106 109 H Carbon Dioxide 23 21 L BUN 7 L 7 L Creatinine 0.81 0.82 Calcium 9.0 8.2 L D Liver Function 03/30/21 Range/Units 21:09 Total Bilirubin 0.7 (0.0-1.0) mg/dL AST 14 (5-31) U/L ALT 19 (0-31) U/L Alkaline Phosphatase 106 (39-117) U/L Albumin 3.8 (3.5-5.0) g/dL Urine 03/30/21 03/30/21 Range/Units 21:22 21:22 Urine Color YELLOW Urine Appearance CLEAR Urine pH 6.0 (5.0-8.0) Ur Specific [place] 1.025 (1.005-1.025) Urine Protein NEG (NEG-TRACE) MG/DL Urine Glucose (UA) NEG (NEG) MG/DL Urine Test NEGATIVE (NEGATIVE) Abdomen CT scan report/results: report reviewed and image reviewed CT scan - pelvis: report reviewed and image reviewed Assessment and Plan (1) Diverticulitis: Status: Acute I have reviewed here CAT scan with the radiologist and this shows some fat stranding around the distal sigmoid, with note of what appears to be 3.5 cm diameter abscess. This is suggestive of a microperforation. She otherwise has a very benign exam. I have started her on IV antibiotics with Zosyn. The plan is to repeat her CAT scan tomorrow and if there is no improvement, we may proceed with CT drainage. She will be on clear liquids at this time. She is hemodynamically stable. Her white count has improved from 18 to 15 since last night. I have consulted the hospitalist service in view of her diabetes and hypertension. Quality Stroke Does the patient have a stroke diagnosis?: No VTE Prior VTE?: No VTE Risk Level:: Medical - moderate - high VTE Device Contraindication: N/A - Device Ordered VTE Drug Contraindication: N/A - Med Ordered Procedures Date of Service Date of Service: 04/01/21
--- NOTE | 2021-03-31 08:29 | MHC.CM.PN ---
Met with patient in regards to discharge planning. Patient is weepy that she has to be admitted to the hospital. Patient lives alone, ambulates independently and had no services prior to coming to the hospital. No services anticipated to be needed because patient is not homebound. PCP verfied. HCP verified to be on file. Patient has not received any Covid vaccines and is not interested in getting one. Patient will need help with transportation when medically stable. Patient requesting to smoke. T/W explained this hospital is a non-smoking facility. Nicotine patch or gum offered. Patient declining both. Continue to monitor for d/c needs.
--- NOTE | 2021-03-31 08:58 | PM.IMCN ---
History of Present Illness Data of Consult Service Date: 03/31/21 Primary Care Provider: Diogo Wright MD HPI Reason for consult: Management of DM and hypertension This is a 45 yo F with a PMH of DM, HTN, self reported COPD/Emphysema/Pulmonary fibrosis, active tobacco smoking, morbid obesity who presents to the hospital with complaints of abdominal symptoms for the last 1 week. Patient reports that she typically moves her bowels every morning after her coffee, but about 1 week ago she started feeling more constipation. She reports that she had been straining. She reports some nausea but no vomiting. She reports that on the evening of admission, she started having severe left-sided back pain which she thought was a kidney stone (she was diagnosed with kidney stone last month) and so she presented to the hospital. Her ED work up has revealed a 3cm fluid collection in the L hemipelvis consistent with acute diverticulitis with localized perforation. She has been admitted under the general surgical services. In regards to the patients chronic medical issues -- she reports HTN, DM, COPD/Pulm fibrosis. She reports that she has not taken any medications for several months for any of her chronic medical issues. Review of Systems Review of Systems: General - no fevers or chills Cardiovascular - no chest pain Respiratory - no shortness of breath or cough Abdominal- +abdominal pain, +nausea, no vomiting Yes all other systems are reviewed and are negative [facility] Medical History (Updated 03/31/21 @ 09:06 by Sabas Rodriguez MD) B12 deficiency Diabetes type 2, uncontrolled Diabetic nephropathy associated with type 2 diabetes mellitus Dyslipidemia Hirsutism Obesity (BMI 30-39.9) Vitamin D deficiency Family History Father Throat cancer Cirrhosis Mother Diabetes Surgical History History of ankle surgery Hx of section Hx of umbilical hernia repair Social History Cigarettes Per Day: 10 Years Smoked: 30 Advance Directives: No Advance Directives Information Provided: No Advance Directives Date on File: 04/25/18 Patient : No service: No Current occupational status: unemployed Meds Allergies Allergy/AdvReac Type Severity Reaction Status Date / Time latex [LATEX] Allergy Mild RASH Verified 12/08/20 13:00 Active Medications: Current Medications Generic Name Dose Route Start Last Admin Trade Name Freq PRN Reason Stop Dose Admin Sodium Chloride 1,000 mls @ 100 mls/hr 03/30/21 23:30 03/31/21 01:44 Ns IVCONT 100 mls/hr .Q10H TEMO Administration Piperacillin Sod/Tazobactam 50 mls @ 100 mls/hr 03/31/21 05:00 03/31/21 06:45 Sod 3.375 gm/ Sodium Chloride IV 100 mls/hr Q6H TEMO Administration Lisinopril 2.5 mg 03/31/21 09:00 Lisinopril 2.5 Mg Tablet PO DAILY TEMO Protocol Morphine Sulfate 3 mg 03/30/21 23:30 03/31/21 06:46 Morphine Sulfate 4 Mg/Ml Cartridge IVPUSH 3 mg Q3H PRN Administration pain Protocol Ondansetron HCl 4 mg 03/30/21 23:32 Ondansetron Hcl 4 Mg/2 Ml Vial IVPUSH Q8H PRN Nausea Pharmacy Consult 1 each 03/30/21 23:05 Consult Rx Perform Med Rec MISCELLANE ONCE PRN Consult order Sodium Chloride 3 ml 03/31/21 00:00 03/31/21 02:33 0.9 % Sodium Chloride Flush 3 Ml Syringe IVFLUSH Not Given QSHIFT [facility] Home Medications Medication Instructions Recorded Confirmed Last Taken Type ascorbic acid (vitamin C) 500 mg 500 mg PO DAILY 03/31/21 03/31/21 Unknown History tablet (Vitamin C) biotin 1,000 mcg chewable tablet 1,000 mcg PO DAILY 03/31/21 03/31/21 Unknown History cyanocobalamin (vitamin B-12) 1,000 mcg PO DAILY 03/31/21 03/31/21 Unknown History 1,000 mcg tablet fluticasone 250 mcg-salmeterol 50 1 puff INHALATION Q12H 03/31/21 03/31/21 Unknown History mcg/dose blistr powdr for inhalation (Advair Diskus) Physical Exam Vital Signs and Narrative: Vital Signs: Last Vital Signs Temp 99.1 F 03/30/21 22:00 Pulse 96 03/31/21 06:00 Resp 18 03/31/21 06:00 BP 113/73 03/31/21 06:00 Pulse Ox 99 03/31/21 06:00 Body Mass Index 54.8 Const: Other: Constitutional - Awake and Alert, No apparent distress Eyes - PERRLA, EOMI Cardiovascular - S1S2, RRR, No edema Respiratory - Normal lung expansion, Normal respiratory effort, No respiratory distress, CTA bilaterally Gastrointestinal - L>R lower quad TTP, no rebound or guarding, soft - No CVA tenderness Extremities - no calf tenderness bilaterally, no swelling Musculoskeletal - Normal inspection, normal ROM Skin - Warm/Dry Neurological - Alert & oriented x3, No focal deficit Psychological - Appropriate affect Results Labs CBC and Chem 7: 03/31/21 07:08 03/31/21 07:08 Labs: Laboratory Results - last 24 hr 03/30/21 03/30/21 03/30/21 21:09 21:09 21:22 MCV 75.8 L MCH 26.0 L MCHC 34.3 RDW 14.6 Plt Count 326 D MPV 11.3 Immature Gran % (Auto) 0.5 H Neut % (Auto) 70.3 Lymph % (Auto) 23.4 [place] % (Auto) 4.3 Eos % (Auto) 1.1 Baso % (Auto) 0.4 Lymph # (Auto) 4.3 [place] # (Auto) 0.8 Eos # (Auto) 0.2 Baso # (Auto) 0.1 Abs Immat Gran (auto) 0.09 H Absolute Neuts (auto) 13.0 H Absolute Nucleated RBC 0.000 Nucleated RBC % (auto) 0.0 Smear Tech's Comments VERIFIED Anion Gap 11 L Estim Creat Clear Calc 118.2 Estimated GFR > 60 POC Glucose Random Glucose 204 H Lactic Acid Calcium 9.0 Total Bilirubin 0.7 AST 14 ALT 19 Alkaline Phosphatase 106 Total Protein 7.5 Albumin 3.8 Lipase 34 Urine Color YELLOW Urine Appearance CLEAR Urine pH 6.0 Ur Specific [place] 1.025 Urine Protein NEG Urine Glucose (UA) NEG Urine Ketones NEG Urine Blood NEG Urine Nitrite NEG Ur Leukocyte Esterase NEG Urine Test COVID-19 ([facility]) COVID-19 Clin Com 03/30/21 03/30/21 03/30/21 21:22 23:39 23:39 MCV MCH MCHC RDW Plt Count MPV Immature Gran % (Auto) Neut % (Auto) Lymph % (Auto) [place] % (Auto) Eos % (Auto) Baso % (Auto) Lymph # (Auto) [place] # (Auto) Eos # (Auto) Baso # (Auto) Abs Immat Gran (auto) Absolute Neuts (auto) Absolute Nucleated RBC Nucleated RBC % (auto) Smear Tech's Comments Anion Gap Estim Creat Clear Calc Estimated GFR POC Glucose Random Glucose Lactic Acid 1.1 Calcium Total Bilirubin AST ALT Alkaline Phosphatase Total Protein Albumin Lipase Urine Color Urine Appearance Urine pH Ur Specific [place] Urine Protein Urine Glucose (UA) Urine Ketones Urine Blood Urine Nitrite Ur Leukocyte Esterase Urine Test NEGATIVE COVID-19 ([facility]) Negative COVID-19 Clin Com See Note 03/31/21 03/31/21 03/31/21 00:28 04:36 07:08 MCV 76.0 L MCH 25.6 L MCHC 33.6 RDW 14.6 Plt Count 268 MPV 11.2 Immature Gran % (Auto) Neut % (Auto) Lymph % (Auto) [place] % (Auto) Eos % (Auto) Baso % (Auto) Lymph # (Auto) [place] # (Auto) Eos # (Auto) Baso # (Auto) Abs Immat Gran (auto) Absolute Neuts (auto) Absolute Nucleated RBC 0.000 Nucleated RBC % (auto) 0.0 Smear Tech's Comments Anion Gap Estim Creat Clear Calc Estimated GFR POC Glucose 142 H 166 H Random Glucose Lactic Acid Calcium Total Bilirubin AST ALT Alkaline Phosphatase Total Protein Albumin Lipase Urine Color Urine Appearance Urine pH Ur Specific [place] Urine Protein Urine Glucose (UA) Urine Ketones Urine Blood Urine Nitrite Ur Leukocyte Esterase Urine Test COVID-19 ([facility]) COVID-19 Clin Com 03/31/21 07:08 MCV MCH MCHC RDW Plt Count MPV Immature Gran % (Auto) Neut % (Auto) Lymph % (Auto) [place] % (Auto) Eos % (Auto) Baso % (Auto) Lymph # (Auto) [place] # (Auto) Eos # (Auto) Baso # (Auto) Abs Immat Gran (auto) Absolute Neuts (auto) Absolute Nucleated RBC Nucleated RBC % (auto) Smear Tech's Comments Anion Gap 12 Estim Creat Clear Calc 116.7 Estimated GFR > 60 POC Glucose Random Glucose 165 H Lactic Acid Calcium 8.2 L D Total Bilirubin AST ALT Alkaline Phosphatase Total Protein Albumin Lipase Urine Color Urine Appearance Urine pH Ur Specific [place] Urine Protein Urine Glucose (UA) Urine Ketones Urine Blood Urine Nitrite Ur Leukocyte Esterase Urine Test COVID-19 ([facility]) COVID-19 Clin Com Imaging Radiologist's Impressions: Impressions Abdomen/Pelvis CT 03/30/21 21:20 IMPRESSION: 1. Colonic diverticulosis. There is pericolonic stranding and ill-defined approximately 3 cm fluid collection within the left hemipelvis, abutting the sigmoid colon. Findings are most suggestive of active diverticulitis with localized perforation and small abscess. Clinical correlation is recommended. Follow-up imaging also recommended status post treatment to ensure resolution. 2. Diffusely decreased liver attenuation suggesting hepatic steatosis. Correlation with liver enzymes recommended. 3. 2 mm nonobstructing left renal calculus. No hydronephrosis. 4. Similar supraumbilical hernia containing a loop of nonobstructed transverse colon. Assessment and Plan (1) Diverticulitis: Status: Acute This is a 45 yo F with a PMH of HTN, DM, COPD who presents to the hospital with abdominal symptoms and is diagnosed with diverticulitis with mircoperforation and abscess formation. She has been admitted under the general surgical services. Medical services are consulted for managment of her medical problems. 1. DM Endorses that she has not been on any meds for months. She was previously on basal+bolus. Was also on Trulicity. She has seen executive director global brand marketing in the past and has declined Rx for DM. (Last seen in Dr. Butler's clinic on 10/20) Will check POC and if persistently elevated, will start sliding scale 2. HTN BP on the softer side, will hold antihypertensives -- particularly since she has not been compliant with them. 3. COPD not in exacerabation Advair is NF, will switch to Breo 4. Diverticulitis with microperf agree with IV zosyn. Per Gen surg notes -- repeat imaging tomorrow to determine course of action Will follow along with you.
[2021-03-31] MEDS: ondansetron HCL 4 MG/2 ML VIAL IVPUSH ×2 (09:24→18:01)
[2021-03-31] MEDS: 0.9 % Sodium Chloride Flush 3 ML SYRINGE IVFLUSH (09:27)
[2021-03-31] MEDS: Fluticasone/Vilanterol 100/25 BLST.W.DEV 1 PUFF INHALE (10:16)
--- NOTE | 2021-03-31 10:55 | PC.NURSE ---
Patient reporting morphine is not relieving her pain. hospitalist texted at this time.
[2021-03-31] MEDS: Morphine Sulfate 4 MG/ML CARTRIDGE IVPUSH ×3 (11:30→18:01)
[2021-03-31 13:16] LABS: Glucose, Whole Blood 163 mg/dL (60-115)
--- NOTE | 2021-03-31 16:05 | P.EN_ITS ---
Event Note Date of Service: 03/31/21 Event Note: Patient seen examined afternoon rounds Earlier had complained of morphine dose being inadequate I increased this to 4 mg every 3 hours. Appears depressed, saying she has no family at all Pain better - she says this is mostly on the back as well as on the lower abdom en Not toxic looking Stable vital signs Abdomen soft, no guarding rebound Plan to repeat CT scan tomorrow
[2021-03-31 16:12] LABS: Glucose, Whole Blood 154 mg/dL (60-115)
[2021-03-31 20:16] LABS: Glucose, Whole Blood 149 mg/dL (60-115)
[2021-04-01] MEDS: Piperacillin Sodium/Tazobactam 3.375 GM in 0.9 % Sodium Chloride 50 ML IV ×4 (04:46→23:15)
[2021-04-01 07:54] VITALS: BP 95/53; PULSE 86; RESP 18; TEMP 36.9; O2SAT 94
--- NOTE | 2021-04-01 07:57 | P.PNGS_ITS ---
Subjective Subjective Date of Service: 04/01/21 <Mitra Cardenas PA-C - Last Filed: 04/01/21 08:02> 04/01/21 <Kaushik Gómez MD - Last Filed: 04/01/21 09:40> Interval history: Feels a little better this morning, still having LLQ pain. Unable to tolerate morphine. Denies nausea but does not like the clear liquids. Reports she chronically has a leukocytosis and has been seen for this for 5 years by heme/onc in [place]. <Mitra Cardenas PA-C - Last Filed: 04/01/21 08:02> Physical Exam Vital Signs: Vital Signs: Last Vital Signs Temp 98.4 F 04/01/21 07:54 Pulse 86 04/01/21 07:54 Resp 18 04/01/21 07:54 BP 95/53 L 04/01/21 07:54 Pulse Ox 94 04/01/21 07:54 Body Mass Index 54.8 <YOMAIRA Peterson Last Filed: 04/01/21 08:02> Const: General: comfortable, no acute distress and alert <Mitra Cardenas PA-C - Last Filed: 04/01/21 08:02> Nutritional Appearance: well nourished <YOMAIRA Peterson Last Filed: 04/01/21 08:02> Orientation/consciousness: patient oriented x3 <Mitra Cardenas PA-C - Last Filed: 04/01/21 08:02> Limitations: no limitations <YOMAIRA Peterson Last Filed: 04/01/21 08:02> Resp: Effort & Inspection: normal respiratory effort <YOMAIRA Peterson Last Filed: 04/01/21 08:02> GI: Inspection: Yes normal to inspection and No distended <YOMAIRA Peterson Last Filed: 04/01/21 08:02> Palpation (GI): Soft to palpation, Tenderness to palpation present (GI) in the L LQ and suprapubicly; Negative for with no rebound tenderness, no guarding and not rigid <YOMAIRA Peterson Last Filed: 04/01/21 08:02> Percussion: Yes normal to percussion <Mitra Cardenas PA-C - Last Filed: 04/01/21 08:02> Skin: General skin exam: no rashes or lesions noted <Mitra Cardenas PA-C - Last Filed: 04/01/21 08:02> Neuro: General: patient oriented x3 <YOMAIRA Peterson Last Filed: 04/01/21 08:02> Extrem: General: Yes no clubbing, cyanosis or edema <Mitra Cardenas PA-C - Last Filed: 04/01/21 08:02> Procedures Date of Service Date of Service: 04/01/21 <Mitra Cardenas PA-C - Last Filed: 04/01/21 08:02> Progress Note: A&P Assessment and plan (1) Diverticulitis: Status: Acute <YOMAIRA Peterson Last Filed: 04/01/21 08:02> (2) Diabetes type 2, uncontrolled: Status: Acute <Mitra Cardenas PA-C - Last Filed: 04/01/21 08:02> (3) Leukocytosis: Status: Acute <Mitra Cardenas PA-C - Last Filed: 04/01/21 08:02> Assessment and Plan: Feels better Less pain although still operator gin No events overnight No fever Repeat CT today Doing well overall Continue IV antibiotics Seen and examined - agree with BRUNILDA Cardenas <Kaushik Gómez MD - Last Filed: 04/01/21 09:40> Assessment and Plan: 45 year old female with PMH of HTN, DM admitted with sigmoid diverticulitis with microperf. She feels somewhat improved this morning with nonoperative measures. She is non toxic appearing with LLQ/suprapubic tenderness without peritoneal signs. WIll repeat CT scan today to reassess microperf, r/o abscess. Repeat labs pending. Cont IV zosyn, IVF, clear liquids for now. <YOMAIRA Peterson Last Filed: 04/01/21 08:02> Fall Risk Details Current Medications: Current Medications Generic Name Dose Route Start Last Admin Trade Name Freq PRN Reason Stop Dose Admin Fluticasone/Vilanterol 1 puff 03/31/21 09:30 03/31/21 10:16 Fluticasone/Vilanterol 100/25 Blst.W.Dev INHALE 1 puff RDAILY TEMO Administration Sodium Chloride 1,000 mls @ 100 mls/hr 03/30/21 23:30 03/31/21 22:26 Ns IVCONT 100 mls/hr .Q10H TEMO Administration Piperacillin Sod/Tazobactam 50 mls @ 100 mls/hr 03/31/21 05:00 04/01/21 05:16 Sod 3.375 gm/ Sodium Chloride IV Infused Q6H TEMO Infusion Morphine Sulfate 4 mg 03/31/21 11:07 03/31/21 18:01 Morphine Sulfate 4 Mg/Ml Cartridge IVPUSH 4 mg Q3H PRN Administration pain Protocol Ondansetron HCl 4 mg 03/30/21 23:32 03/31/21 18:01 Ondansetron Hcl 4 Mg/2 Ml Vial IVPUSH 4 mg Q8H PRN Administration Nausea Pharmacy Consult 1 each 03/30/21 23:05 Consult Rx Perform Med Rec MISCELLANE ONCE PRN Consult order Sodium Chloride 3 ml 03/31/21 00:00 04/01/21 00:13 0.9 % Sodium Chloride Flush 3 Ml Syringe IVFLUSH Not Given QSHIFT [facility] <Mitra Cardenas PA-C - Last Filed: 04/01/21 08:02> Time Spent With Patient Time: Total time spent is greater than 50% in coordination of care (as documented) at patient's floor/unit and/or counseling patient: <Mitra Cardenas PA-C - Last Filed: 04/01/21 08:02> Time with patient: 15 - 24 minutes <YOMAIRA Peterson Last Filed: 04/01/21 08:02> Quality Stroke Does the patient have a stroke diagnosis?: No <YOMAIRA Peterson Last Filed: 04/01/21 08:02> VTE Prior VTE?: No <YOMAIRA Peterson Last Filed: 04/01/21 08:02> VTE Risk Level:: Medical - moderate - high <Mitra Cardenas PA-C - Last Filed: 04/01/21 08:02> VTE Device Contraindication: N/A - Device Ordered <YOMAIRA Peterson Last Filed: 04/01/21 08:02> VTE Drug Contraindication: N/A - Med Ordered <YOMAIRA Peterson Last Filed: 04/01/21 08:02>
[2021-04-01 08:01] LABS: Glucose, Whole Blood 151 mg/dL (60-115)
[2021-04-01 08:16] LABS: MANUAL DIFF FLAG NO
[2021-04-01 08:22] LABS: Basophils Absolute Auto 0.1 X10*3/uL (0.0-0.2); Basophils Percent Auto 0.4 % (0-2); Eosinophils Absolute Auto 0.1 X10*3/uL (0.0-0.4); Hematocrit 30.2 % (37-47); Imm Gran Abs Auto 0.08 X10*3/uL (0.00-0.03); Imm Gran Pct Auto 0.6 % (0.0-0.4); Lymphocytes Absolute Auto 2.6 X10*3/uL (1.2-4.9); Lymphocytes Percent Auto 19.1 % (20-40); Mean Corpuscular HGB Conc 33.1 g/dl (31.0-35.0); Mean Corpuscular Hemoglobin 25.4 pg (27.0-33.0); Mean Corpuscular Volume 76.6 fL (80-98); Mean Platelet Volume 11.5 fL (9.4-12.3); Monocytes Absolute Auto 0.6 X10*3/uL (0.1-1.2); Monocytes Percent Auto 4.5 % (2-11); Neutrophils Absolute Auto 10.1 X10*3/uL (2.0-8.3); Neutrophils Percent Auto 74.4 % (45-73); Platelet Count 232 X10*3/uL (160-400); Red Blood Count 3.94 X10*6/uL (4.20-5.50); Red Cell Distribution Width 14.8 % (11.0-16.0); White Blood Count 13.6 X10*3/uL (4.8-10.8)
[2021-04-01 08:36] LABS: Anion Gap 10 (12-20); Blood Urea Nitrogen 6 mg/dL (9-16); Carbon Dioxide 24 mmol/L (22-29); Chloride 109 mmol/L (96-108); Creatinine Clr Calc Pharmacy 111.3; Estimated Glomerular Filt Rate > 60; Glucose Random 140 mg/dL (60-115); Sodium 139 mmol/L (135-145)
[2021-04-01] MEDS: 0.9 % Sodium Chloride 1,000 ML 100 ML IVCONT ×2 (08:41→23:49)
[2021-04-01 08:46] LABS: Estimated Average Glucose 180 mg/dL; Hemoglobin A1c % 7.9 %
[2021-04-01] MEDS: iohexoL 350 MG/ML 100 ML INFUS..BTL IV (09:15)
--- NOTE | 2021-04-01 11:39 | HO.PM.IMPN ---
Subjective Subjective Date of Service: 04/01/21 Interval History: Seen and examined this morning Follow-up for diverticulitis Patient requesting diet to be advanced. Nausea improving Review of Systems Review of Systems: Yes all other systems are reviewed and are negative Constitutional Constitutional: Denies chills and Denies fever(s) Cardiovascular Cardiovascular: Denies chest pain Respiratory Respiratory: Denies cough Physical Exam Vital Signs: Vital Signs: Last Vital Signs Temp 98.4 F 04/01/21 07:54 Pulse 86 04/01/21 07:54 Resp 18 04/01/21 07:54 BP 95/53 L 04/01/21 07:54 Pulse Ox 94 04/01/21 07:54 Body Mass Index 54.8 Const: Nutritional Appearance: well nourished Orientation/consciousness: patient oriented x3 HENMT: Head: Yes normocephalic and Yes atraumatic Eyes: Sclerae: sclerae normal Chest: Chest palpation & inspection: normal inspection of the chest Resp: Effort & Inspection: normal respiratory effort and no respiratory distress Cardio: Rate: regular rate Rhythm: regular rhythm GI: Palpation (GI): Soft to palpation and Tenderness to palpation present (GI) Skin: General skin exam: no rashes or lesions noted Neuro: General: patient oriented x3 Cranial nerves: Yes CN's II-XII intact bilaterally and Yes Bilaterally intact EOM present Extrem: General: Yes normal to inspection Objective Data Active Medications Fluticasone/Vilanterol (Fluticasone/Vilanterol 100/25 Blst.W.Dev) 1 puff INHALE RDAILY [facility] Last Admin: 04/01/21 11:37 Dose: Not Given Documented by: LISA Non-Admin Reason: Med Not Available Hydromorphone HCl (Hydromorphone Hcl 1 Mg/Ml Syringe) 0.25 mg IVPUSH Q4H PRN; Protocol PRN Reason: Pain, Severe (Pain Scale 7-10) Sodium Chloride (Ns) 1,000 mls @ 100 mls/hr IVCONT .Q10H [facility] Last Infusion: 04/01/21 11:06 Dose: 100 mls/hr Documented by: JOÃO Piperacillin Sod/Tazobactam (Sod 3.375 gm/ Sodium Chloride) 50 mls @ 100 mls/hr IV Q6H [facility] Last Infusion: 04/01/21 11:07 Dose: 0 mls/hr Documented by: JOÃO Acetaminophen (Ofirmev) 1,000 mg in 100 mls @ 400 mls/hr IV Q6H PRN PRN Reason: abdominal pain Last Infusion: 04/01/21 10:16 Dose: 0 mls/hr Documented by: JOÃO Ondansetron HCl (Ondansetron Hcl 4 Mg/2 Ml Vial) 4 mg IVPUSH Q8H PRN PRN Reason: Nausea Last Admin: 03/31/21 18:01 Dose: 4 mg Documented by: COTDEV Oxycodone HCl (Oxycodone Hcl Immed Release 5 Mg Tablet) 5 mg PO Q4H PRN PRN Reason: Pain, Moderate (Pain Scale 4-6 Pharmacy Consult (Consult Rx Perform Med Rec) 1 each MISCELLANE ONCE PRN PRN Reason: Consult order Sodium Chloride (0.9 % Sodium Chloride Flush 3 Ml Syringe) 3 ml IVFLUSH QSHIFT [facility] Last Admin: 04/01/21 08:00 Dose: Not Given Documented by: JOÃO Non-Admin Reason: IV Running Labs CBC & Chem 7: 04/01/21 07:44 04/01/21 07:44 Labs: Laboratory Results - last 24 hr 03/31/21 03/31/21 03/31/21 13:07 15:23 20:04 MCV MCH MCHC RDW Plt Count MPV Immature Gran % (Auto) Neut % (Auto) Lymph % (Auto) Hyde % (Auto) Eos % (Auto) Baso % (Auto) Lymph # (Auto) Hyde # (Auto) Eos # (Auto) Baso # (Auto) Abs Immat Gran (auto) Absolute Neuts (auto) Absolute Nucleated RBC Nucleated RBC % (auto) Anion Gap Estim Creat Clear Calc Estimated GFR POC Glucose 163 H 154 H 149 H Random Glucose Estimat Average Glucose Hemoglobin A1c % Calcium 04/01/21 04/01/21 04/01/21 07:44 07:44 07:44 MCV 76.6 L MCH 25.4 L MCHC 33.1 RDW 14.8 Plt Count 232 MPV 11.5 Immature Gran % (Auto) 0.6 H Neut % (Auto) 74.4 H Lymph % (Auto) 19.1 L Hyde % (Auto) 4.5 Eos % (Auto) 1.0 Baso % (Auto) 0.4 Lymph # (Auto) 2.6 Hyde # (Auto) 0.6 Eos # (Auto) 0.1 Baso # (Auto) 0.1 Abs Immat Gran (auto) 0.08 H Absolute Neuts (auto) 10.1 H Absolute Nucleated RBC 0.000 Nucleated RBC % (auto) 0.0 Anion Gap 10 L Estim Creat Clear Calc 111.3 Estimated GFR > 60 POC Glucose Random Glucose 140 H Estimat Average Glucose 180 Hemoglobin A1c % 7.9 Calcium 8.0 L 04/01/21 07:54 MCV MCH MCHC RDW Plt Count MPV Immature Gran % (Auto) Neut % (Auto) Lymph % (Auto) Hyde % (Auto) Eos % (Auto) Baso % (Auto) Lymph # (Auto) Hyde # (Auto) Eos # (Auto) Baso # (Auto) Abs Immat Gran (auto) Absolute Neuts (auto) Absolute Nucleated RBC Nucleated RBC % (auto) Anion Gap Estim Creat Clear Calc Estimated GFR POC Glucose 151 H Random Glucose Estimat Average Glucose Hemoglobin A1c % Calcium Microbiology Microbiology Results: Microbiology 03/30/21 23:39 Blood Culture - Preliminary Blood - Venous No growth after 24 hours. 03/30/21 23:39 Blood Culture - Preliminary Blood - Venous No growth after 24 hours. Assessment and Plan (1) Obesity (BMI 30-39.9): Status: Acute (2) Leukocytosis: Status: Acute (3) Diverticulitis: Status: Acute Assessment and Plan: This is a 45 yo F with a PMH of HTN, DM, COPD who presents to the hospital with abdominal symptoms and is diagnosed with diverticulitis with mircoperforation and abscess formation. She has been admitted under the general surgical services. Medical services are consulted for managment of her medical problems. DM Endorses that she has not been on any meds for months. She was previously on basal+bolus. Was also on Trulicity. She has seen consultants intern in the past and has declined Rx for DM. (Last seen in Dr. Butler's clinic on 10/20) Hba1c 7.9 -continue SSI, POCs -will need outpatient follow-up with endocrinology HTN BP on the softer side, will hold antihypertensives -- particularly since she has not been compliant with them. COPD not in exacerabation Advair is NF, will switch to Breo Diverticulitis with microperf agree with IV zosyn. Per Gen surg notes -- repeat CT scan today to determine course of action Blood cultures negative h/o chronic leukocytosis outpatient follow up Morbid obesity. BMI 54.9 DVT prophylaxis-mechanical devices Attending-Dr. Rodriguez Quality Stroke Does the patient have a stroke diagnosis?: No VTE Prior VTE?: No VTE Risk Level:: Medical - moderate - high VTE Device Contraindication: N/A - Device Ordered VTE Drug Contraindication: N/A - Med Ordered
[2021-04-01 11:51] LABS: Glucose, Whole Blood 179 mg/dL (60-115)
--- NOTE | 2021-04-01 15:03 | PM.EVENT ---
Event Note Date of Service: 04/01/21 Event Note: Patient feels better No fever Overall looks well I have reviewed her CAT scan with the radiologist - the abscess may be just a little bit bigger than initially However, the size overall is borderline for indications for CT drainage In view of her overall clinical improvement, we will hold off on CT drain for now Continue IV antibiotics Exam remains benign
[2021-04-01 15:31] VITALS: BP 129/58; PULSE 84; RESP 17; TEMP 36.3; O2SAT 98
[2021-04-01 16:31] LABS: Glucose, Whole Blood 116 mg/dL (60-115)
[2021-04-01] MEDS: oxyCODONE HCl Immed Release 5 MG TABLET PO ×2 (18:01→22:14)
[2021-04-01 20:23] LABS: Glucose, Whole Blood 164 mg/dL (60-115)
[2021-04-02] VITALS: BP 103/59; PULSE 88; RESP 18; TEMP 37.4; O2SAT 96
--- NOTE | 2021-04-02 | ECG_ITS ---
Test Reason : CHEST PAIN Blood Pressure : / mmHG Vent. Rate : 080 BPM Atrial Rate : 080 BPM P-R Int : 128 ms QRS Dur : 072 ms QT Int : 386 ms P-R-T Axes : 047 038 023 degrees QTc Int : 445 ms Normal sinus rhythm Normal ECG When compared with ECG of 08-DEC-2020 18:43, No significant change was found Referred By: Carlos Miller Electronically Signed By:LIZZ LEE
[2021-04-02] MEDS: HYDROmorphone HCl 1 MG/ML SYRINGE 0.25 MG IVPUSH ×3 (00:17→20:29)
[2021-04-02] MEDS: Piperacillin Sodium/Tazobactam 3.375 GM in 0.9 % Sodium Chloride 50 ML IV ×3 (04:38→18:34)
[2021-04-02 08:08] LABS: Glucose, Whole Blood 143 mg/dL (60-115)
[2021-04-02 08:45] VITALS: BP 126/75; PULSE 85; RESP 18; TEMP 36.3; O2SAT 98
[2021-04-02] MEDS: 0.9 % Sodium Chloride 1,000 ML 100 ML IVCONT ×2 (08:45→20:30)
--- NOTE | 2021-04-02 08:51 | PC.NURSE ---
Skin assessment completed today. Patient had a small dark spot under left breast which was bleeding, it is now closed. No other skin issues noted at this time.
--- NOTE | 2021-04-02 10:12 | P.PNGS_ITS ---
Subjective Subjective Date of Service: 04/02/21 Interval history: describes pain on lower back No fever Minimal lower abdominal pain No nausea or vomiting Asking for food Also admits to being depressed, says she has no family in the area Physical Exam Vital Signs: Vital Signs: Last Vital Signs Temp 97.4 F 04/02/21 08:45 Pulse 85 04/02/21 08:45 Resp 18 04/02/21 08:45 BP 126/75 04/02/21 08:45 Pulse Ox 98 04/02/21 08:45 Body Mass Index 54.8 Const: Other: Looks a little depressed General: no acute distress Resp: Effort & Inspection: normal respiratory effort Cardio: Rate: regular rate GI: Other: Mild tenderness lower abdomen Palpation (GI): Soft to palpation, not firm, no guarding and not rigid Procedures Date of Service Date of Service: 04/02/21 Progress Note: A&P Assessment and plan (1) Diverticulitis: Status: Acute Assessment and Plan: With small diverticular abscess CT repeated yesterday - reviewed with Dr. Gomez - size of abscess remains borderline for drainage; in view of clinical improvement, increase in WBC, CT drainage held off Continue IV antibiotics Clear liquids Patient complains more of pain and lower back area near sacrum - likely related to location of inflammatory process on CT scan She says she is constipated - will start on Colace Explained to patient that if she does not improve further with regards to pain, may need follow-up CT scan after the weekend Fall Risk Details Current Medications: Current Medications Generic Name Dose Route Start Last Admin Trade Name Freq PRN Reason Stop Dose Admin Fluticasone/Vilanterol 1 puff 03/31/21 09:30 04/01/21 11:37 Fluticasone/Vilanterol 100/25 Blst.W.Dev INHALE Not Given RDAILY TEMO Hydromorphone HCl 0.25 mg 04/01/21 08:18 04/02/21 09:17 Hydromorphone Hcl 1 Mg/Ml Syringe IVPUSH 0.25 mg Q4H PRN Administration Pain, Severe (Pain Scale 7-10) Protocol Sodium Chloride 1,000 mls @ 100 mls/hr 03/30/21 23:30 04/02/21 08:45 Ns IVCONT 100 mls/hr .Q10H TEMO Administration Piperacillin Sod/Tazobactam 50 mls @ 100 mls/hr 03/31/21 05:00 04/02/21 05:17 Sod 3.375 gm/ Sodium Chloride IV Infused Q6H TEMO Infusion Acetaminophen 1,000 mg in 100 mls @ 400 mls/hr 04/01/21 08:30 04/01/21 10:16 Ofirmev IV Infused Q6H PRN Infusion abdominal pain Ondansetron HCl 4 mg 03/30/21 23:32 03/31/21 18:01 Ondansetron Hcl 4 Mg/2 Ml Vial IVPUSH 4 mg Q8H PRN Administration Nausea Oxycodone HCl 5 mg 04/01/21 08:18 04/01/21 22:14 Oxycodone Hcl Immed Release 5 Mg Tablet PO 5 mg Q4H PRN Administration Pain, Moderate (Pain Scale 4-6 Pharmacy Consult 1 each 03/30/21 23:05 Consult Rx Perform Med Rec MISCELLANE ONCE PRN Consult order Sodium Chloride 3 ml 03/31/21 00:00 04/02/21 08:32 0.9 % Sodium Chloride Flush 3 Ml Syringe IVFLUSH Not Given QSHIFT [facility] Time Spent With Patient Time: Total time spent is greater than 50% in coordination of care (as documented) at patient's floor/unit and/or counseling patient: Time with patient: 15 - 24 minutes Quality Stroke Does the patient have a stroke diagnosis?: No VTE Prior VTE?: No VTE Risk Level:: Medical - moderate - high VTE Device Contraindication: N/A - Device Ordered VTE Drug Contraindication: N/A - Med Ordered
--- NOTE | 2021-04-02 11:15 | P.PNIM_ITS ---
Subjective Subjective Date of Service: 04/02/21 Interval History: Seen and examined this morning No overnight events Reports ongoing abdominal pain and lower back pain. Feeling constipated Denies fever, chills, nausea, vomiting. Wants to eat. Review of Systems Review of Systems: Yes all other systems are reviewed and are negative Constitutional Constitutional: Denies chills and Denies fever(s) Cardiovascular Cardiovascular: Denies chest pain Respiratory Respiratory: Denies cough Gastrointestinal Gastrointestinal: Reports abdominal pain, Denies diarrhea and Denies vomiting Physical Exam Vital Signs: Vital Signs: Last Vital Signs Temp 97.4 F 04/02/21 08:45 Pulse 85 04/02/21 08:45 Resp 18 04/02/21 08:45 BP 126/75 04/02/21 08:45 Pulse Ox 98 04/02/21 08:45 Body Mass Index 54.8 Const: General: alert and awake Nutritional Appearance: obese Orientation/consciousness: patient oriented x3 HENMT: Head: Yes normocephalic and Yes atraumatic Eyes: Sclerae: sclerae normal Chest: Chest palpation & inspection: normal inspection of the chest Resp: Effort & Inspection: normal respiratory effort and no respiratory distress Cardio: Rate: regular rate Rhythm: regular rhythm GI: Palpation (GI): Soft to palpation, not firm, Tenderness to palpation present (GI) and no guarding Skin: General skin exam: no rashes or lesions noted Neuro: General: patient oriented x3 Cranial nerves: Yes CN's II-XII intact bilaterally and Yes Bilaterally intact EOM present Extrem: Other: no edema General: Yes normal to inspection Objective Data Active Medications Docusate Sodium (Docusate Sodium 100 Mg Capsule) 100 mg PO BID PRN PRN Reason: Constipation Fluticasone/Vilanterol (Fluticasone/Vilanterol 100/25 Blst.W.Dev) 1 puff INHALE RDAILY [facility] Last Admin: 04/01/21 11:37 Dose: Not Given Documented by: LISA Non-Admin Reason: Med Not Available Hydromorphone HCl (Hydromorphone Hcl 1 Mg/Ml Syringe) 0.25 mg IVPUSH Q4H PRN; Protocol PRN Reason: Pain, Severe (Pain Scale 7-10) Last Admin: 04/02/21 09:17 Dose: 0.25 mg Documented by: JOÃO Sodium Chloride (Ns) 1,000 mls @ 100 mls/hr IVCONT .Q10H [facility] Last Admin: 04/02/21 08:45 Dose: 100 mls/hr Documented by: JOÃO Piperacillin Sod/Tazobactam (Sod 3.375 gm/ Sodium Chloride) 50 mls @ 100 mls/hr IV Q6H [facility]O Last Infusion: 04/02/21 05:17 Dose: 0 mls/hr Documented by: OXANA Acetaminophen (Ofirmev) 1,000 mg in 100 mls @ 400 mls/hr IV Q6H PRN PRN Reason: abdominal pain Last Infusion: 04/01/21 10:16 Dose: 0 mls/hr Documented by: JOÃO Ondansetron HCl (Ondansetron Hcl 4 Mg/2 Ml Vial) 4 mg IVPUSH Q8H PRN PRN Reason: Nausea Last Admin: 03/31/21 18:01 Dose: 4 mg Documented by: COTEMA Oxycodone HCl (Oxycodone Hcl Immed Release 5 Mg Tablet) 5 mg PO Q4H PRN PRN Reason: Pain, Moderate (Pain Scale 4-6 Last Admin: 04/01/21 22:14 Dose: 5 mg Documented by: OXANA Pharmacy Consult (Consult Rx Perform Med Rec) 1 each MISCELLANE ONCE PRN PRN Reason: Consult order Sodium Chloride (0.9 % Sodium Chloride Flush 3 Ml Syringe) 3 ml IVFLUSH QSHIFT [facility] Last Admin: 04/02/21 08:32 Dose: Not Given Documented by: JOÃO Non-Admin Reason: IV Running Labs CBC & Chem 7: 04/01/21 07:44 04/01/21 07:44 Labs: Laboratory Results - last 24 hr 04/01/21 04/01/21 04/01/21 11:34 16:16 20:18 POC Glucose 179 H 116 H 164 H 04/02/21 07:41 POC Glucose 143 H Microbiology Microbiology Results: Microbiology 03/30/21 23:39 Blood Culture - Preliminary Blood - Venous No growth after 48 hours. 03/30/21 23:39 Blood Culture - Preliminary Blood - Venous No growth after 48 hours. Assessment and Plan (1) Hypertension: Status: Acute (2) Leukocytosis: Status: Acute (3) Diverticulitis: Status: Acute Assessment and Plan: This is a 45 yo F with a PMH of HTN, DM, COPD who presents to the hospital with abdominal symptoms and is diagnosed with diverticulitis with mircoperforation and abscess formation. She has been admitted under the general surgical services. Medical services are consulted for management of her medical problems. DM has not been on any meds for months. She has seen loop machine operator in the past and has declined Rx for DM. (Last seen in Dr. Butler's clinic on 10/20) Hba1c 7.9 -continue SSI, POCs -will need outpatient follow-up with endocrinology HTN BP on the softer side, will hold antihypertensives - particularly since she has not been compliant with them. COPD not in exacerabation Advair is NF, will switch to Breo Diverticulitis with microperf agree with IV zosyn. Per Gen surg notes -- repeat CT showing persistent abscess, but size borderline for drainage. Plan to continue medical management hold off on drainage at this time. Blood cultures negative h/o chronic leukocytosis outpatient follow up Morbid obesity. BMI 54.9 DVT prophylaxis-mechanical devices Attending-Dr. Rodriguez Quality Stroke Does the patient have a stroke diagnosis?: No VTE Prior VTE?: No VTE Risk Level:: Medical - moderate - high VTE Device Contraindication: N/A - Device Ordered VTE Drug Contraindication: N/A - Med Ordered
[2021-04-02] MEDS: Docusate Sodium 100 MG CAPSULE PO (11:44)
[2021-04-02] MEDS: oxyCODONE HCl Immed Release 5 MG TABLET PO (11:44)
[2021-04-02] MEDS: Fluticasone/Vilanterol 100/25 BLST.W.DEV 1 PUFF INHALE (11:54)
[2021-04-02 11:55] LABS: Glucose, Whole Blood 153 mg/dL (60-115)
[2021-04-02 11:56] VITALS: PULSE 86; O2SAT 98
[2021-04-02 15:49] VITALS: BP 108/70; PULSE 73; RESP 19; TEMP 36.8; O2SAT 97
[2021-04-02 16:18] LABS: Glucose, Whole Blood 114 mg/dL (60-115)
[2021-04-02 20:24] LABS: Glucose, Whole Blood 133 mg/dL (60-115)
[2021-04-02 22:04] LABS: Troponin-I High Sensitivity < 3.5 ng/L (<3.5-17.0)
--- NOTE | 2021-04-02 22:05 | PC.NURSE ---
At 2100, Pt complained of chest pain. MD was notified. EKG was ordered. It showed Sinus Rhythm. Troponin was ordered. it was <3.5.
[2021-04-02 23:22] VITALS: BP 117/63; PULSE 71; RESP 17; TEMP 36.8; O2SAT 94
[2021-04-03] MEDS: Piperacillin Sodium/Tazobactam 3.375 GM in 0.9 % Sodium Chloride 50 ML IV ×5 (00:24→22:55)
[2021-04-03 04:52] LABS: Glucose, Whole Blood 120 mg/dL (60-115)
[2021-04-03] MEDS: HYDROmorphone HCl 1 MG/ML SYRINGE 0.25 MG IVPUSH (05:01)
[2021-04-03 05:46] LABS: Hemoglobin 9.6 g/dl (12.0-16.0); Mean Corpuscular HGB Conc 33.1 g/dl (31.0-35.0); Mean Corpuscular Hemoglobin 25.5 pg (27.0-33.0); Mean Corpuscular Volume 77.1 fL (80-98); Platelet Count 233 X10*3/uL (160-400); Red Blood Count 3.76 X10*6/uL (4.20-5.50); Red Cell Distribution Width 14.6 % (11.0-16.0); White Blood Count 10.5 X10*3/uL (4.8-10.8)
[2021-04-03 06:00] LABS: Anion Gap 11 (12-20); Blood Urea Nitrogen 5 mg/dL (9-16); Calcium 8.3 mg/dL (8.4-10.2); Carbon Dioxide 24 mmol/L (22-29); Chloride 108 mmol/L (96-108); Creatinine Clr Calc Pharmacy 124.4; Estimated Glomerular Filt Rate > 60; Glucose Random 128 mg/dL (60-115); Potassium 3.6 mmol/L (3.3-5.1); Sodium 139 mmol/L (135-145)
[2021-04-03 07:20] LABS: Glucose, Whole Blood 143 mg/dL (60-115)
[2021-04-03] MEDS: Fluticasone/Vilanterol 100/25 BLST.W.DEV 1 PUFF INHALE (07:52)
[2021-04-03 07:53] VITALS: PULSE 87; O2SAT 98
[2021-04-03 08:00] VITALS: BP 110/59; PULSE 62; RESP 18; TEMP 36.6; O2SAT 96
[2021-04-03] MEDS: 0.9 % Sodium Chloride Flush 3 ML SYRINGE IVFLUSH ×2 (08:30→17:57)
[2021-04-03] MEDS: oxyCODONE HCl Immed Release 5 MG TABLET PO ×3 (10:15→22:53)
[2021-04-03 11:03] VITALS: BP 110/75; PULSE 76; RESP 17; TEMP 36.8; O2SAT 98
[2021-04-03 11:04] LABS: Glucose, Whole Blood 142 mg/dL (60-115)
--- NOTE | 2021-04-03 11:13 | PM.PNGS ---
Subjective Subjective Date of Service: 04/03/21 Interval history: She is feeling better today. Rectal pressure has resolved. She is having some menstrual cramps but no other abdominal pain. Hungry. Passing flatus. No bowel movement. Physical Exam Vital Signs: Vital Signs: Last Vital Signs Temp 98.3 F 04/03/21 11:03 Pulse 76 04/03/21 11:03 Resp 17 04/03/21 11:03 BP 110/75 04/03/21 11:03 Pulse Ox 98 04/03/21 11:03 Body Mass Index 54.8 Const: General: cooperative, no acute distress and alert Resp: Effort & Inspection: normal respiratory effort Auscultation: clear to auscultation bilaterally Cardio: Rate: regular rate Rhythm: regular rhythm GI: Other: Soft, nontender, nondistended Procedures Date of Service Date of Service: 04/03/21 Progress Note: A&P Assessment and plan (1) Diverticulitis: Status: Acute (2) Diabetes type 2, uncontrolled: Status: Acute (3) Hypertension: Status: Acute Assessment and Plan: Diverticulitis with micro perforation and pelvic abscess, clinically improved. On Zosyn. Will repeat CT scan of the abdomen and pelvis tomorrow to reassess abscess. Advanced to low residue diabetic diet. Blood pressure okay. Continue to hold lisinopril. Blood sugars in acceptable range, running low to mid 100s. Continue sliding scale coverage. Fall Risk Details Current Medications: Current Medications Generic Name Dose Route Start Last Admin Trade Name Freq PRN Reason Stop Dose Admin Docusate Sodium 100 mg 04/02/21 11:09 04/02/21 11:44 Docusate Sodium 100 Mg Capsule PO 100 mg BID PRN Administration Constipation Fluticasone/Vilanterol 1 puff 03/31/21 09:30 04/03/21 07:52 Fluticasone/Vilanterol 100/25 Blst.W.Dev INHALE 1 puff RDAILY TEMO Administration Hydromorphone HCl 0.25 mg 04/01/21 08:18 04/03/21 05:01 Hydromorphone Hcl 1 Mg/Ml Syringe IVPUSH 0.25 mg Q4H PRN Administration Pain, Severe (Pain Scale 7-10) Protocol Piperacillin Sod/Tazobactam 50 mls @ 100 mls/hr 03/31/21 05:00 04/03/21 10:16 Sod 3.375 gm/ Sodium Chloride IV 100 mls/hr Q6H TEMO Administration Acetaminophen 1,000 mg in 100 mls @ 400 mls/hr 04/01/21 08:30 04/01/21 10:16 Ofirmev IV Infused Q6H PRN Infusion abdominal pain Ondansetron HCl 4 mg 03/30/21 23:32 03/31/21 18:01 Ondansetron Hcl 4 Mg/2 Ml Vial IVPUSH 4 mg Q8H PRN Administration Nausea Oxycodone HCl 5 mg 04/01/21 08:18 04/03/21 10:15 Oxycodone Hcl Immed Release 5 Mg Tablet PO 5 mg Q4H PRN Administration Pain, Moderate (Pain Scale 4-6 Pharmacy Consult 1 each 03/30/21 23:05 Consult Rx Perform Med Rec MISCELLANE ONCE PRN Consult order Sodium Chloride 3 ml 03/31/21 00:00 04/03/21 08:30 0.9 % Sodium Chloride Flush 3 Ml Syringe IVFLUSH 3 ml QSHIFT [facility] Administration Time Spent With Patient Time: Total time spent is greater than 50% in coordination of care (as documented) at patient's floor/unit and/or counseling patient: Time with patient: 15 - 24 minutes Quality Stroke Does the patient have a stroke diagnosis?: No VTE Prior VTE?: No VTE Risk Level:: Medical - moderate - high VTE Device Contraindication: N/A - Device Ordered VTE Drug Contraindication: N/A - Med Ordered
--- NOTE | 2021-04-03 11:18 | HO.PM.IMPN ---
Subjective Subjective Date of Service: 04/03/21 Interval History: seen and examined this morning follow up for perforated diverticulitis/abscess abdominal pain has improved. No nausea, no vomiting. Asking to advance diet Review of Systems Review of Systems: Yes all other systems are reviewed and are negative Constitutional Constitutional: Denies chills and Denies fever(s) Cardiovascular Cardiovascular: Denies chest pain Respiratory Respiratory: Denies cough Gastrointestinal Gastrointestinal: Denies diarrhea, Denies nausea and Denies vomiting Physical Exam Vital Signs: Vital Signs: Last Vital Signs Temp 98.3 F 04/03/21 11:03 Pulse 76 04/03/21 11:03 Resp 17 04/03/21 11:03 BP 110/75 04/03/21 11:03 Pulse Ox 98 04/03/21 11:03 Body Mass Index 54.8 Const: General: alert and awake Nutritional Appearance: obese Orientation/consciousness: patient oriented x3 HENMT: Head: Yes normocephalic and Yes atraumatic Eyes: Sclerae: sclerae normal Chest: Chest palpation & inspection: normal inspection of the chest Resp: Effort & Inspection: normal respiratory effort and no respiratory distress Cardio: Rate: regular rate Rhythm: regular rhythm GI: Palpation (GI): Soft to palpation, not firm, nontender and no guarding Skin: General skin exam: no rashes or lesions noted Neuro: General: patient oriented x3 Cranial nerves: Yes CN's II-XII intact bilaterally and Yes Bilaterally intact EOM present Extrem: Other: no edema General: Yes normal to inspection Objective Data Active Medications Docusate Sodium (Docusate Sodium 100 Mg Capsule) 100 mg PO BID PRN PRN Reason: Constipation Last Admin: 04/02/21 11:44 Dose: 100 mg Documented by: JOÃO Fluticasone/Vilanterol (Fluticasone/Vilanterol 100/25 Blst.W.Dev) 1 [facility] Last Admin: 04/03/21 07:52 Dose: 1 puff Documented by: LISA Hydromorphone HCl (Hydromorphone Hcl 1 Mg/Ml Syringe) 0.25 mg IVPUSH Q4H PRN; Protocol PRN Reason: Pain, Severe (Pain Scale 7-10) Last Admin: 04/03/21 05:01 Dose: 0.25 mg Documented by: HO.SANNAFA Piperacillin Sod/Tazobactam (Sod 3.375 gm/ Sodium Chloride) 50 mls @ 100 mls/hr IV Q6H [facility] Last Admin: 04/03/21 10:16 Dose: 100 mls/hr Documented by: YULISA Acetaminophen (irmev) 1,000 mg in 100 mls @ 400 mls/hr IV Q6H PRN PRN Reason: abdominal pain Last Infusion: 04/01/21 10:16 Dose: 0 mls/hr Documented by: JOÃO Ondansetron HCl (Ondansetron Hcl 4 Mg/2 Ml Vial) 4 mg IVPUSH Q8H PRN PRN Reason: Nausea Last Admin: 03/31/21 18:01 Dose: 4 mg Documented by: COTEMA Oxycodone HCl (Oxycodone Hcl Immed Release 5 Mg Tablet) 5 mg PO Q4H PRN PRN Reason: Pain, Moderate (Pain Scale 4-6 Last Admin: 04/03/21 10:15 Dose: 5 mg Documented by: YULISA Pharmacy Consult (Consult Rx Perform Med Rec) 1 each MISCELLANE ONCE PRN PRN Reason: Consult order Sodium Chloride (0.9 % Sodium Chloride Flush 3 Ml Syringe) [facility] Last Admin: 04/03/21 08:30 Dose: 3 ml Documented by: YULISA Labs CBC & Chem 7: 04/03/21 05:20 04/03/21 05:20 Labs: Laboratory Results - last 24 hr 04/02/21 04/02/21 04/02/21 11:37 16:05 20:19 MCV MCH MCHC RDW Plt Count MPV Absolute Nucleated RBC Nucleated RBC % (auto) Anion Gap Estim Creat Clear Calc Estimated GFR POC Glucose 153 H 114 133 H Random Glucose Calcium Troponin I High Sens 04/02/21 04/03/21 04/03/21 21:27 04:46 05:20 MCV 77.1 L MCH 25.5 L MCHC 33.1 RDW 14.6 Plt Count 233 MPV 11.0 Absolute Nucleated RBC 0.000 Nucleated RBC % (auto) 0.0 Anion Gap Estim Creat Clear Calc Estimated GFR POC Glucose 120 H Random Glucose Calcium Troponin I High Sens < 3.5 04/03/21 04/03/21 04/03/21 05:20 07:15 11:00 MCV MCH MCHC RDW Plt Count MPV Absolute Nucleated RBC Nucleated RBC % (auto) Anion Gap 11 L Estim Creat Clear Calc 124.4 Estimated GFR > 60 POC Glucose 143 H 142 H Random Glucose 128 H Calcium 8.3 L Troponin I High Sens Assessment and Plan (1) Diverticulitis: Status: Acute (2) Hypertension: Status: Acute (3) Morbid obesity with BMI of 50.0-59.9, adult: Status: Acute Assessment and Plan: This is a 45 yo F with a PMH of HTN, DM, COPD who presents to the hospital with abdominal symptoms and is diagnosed with diverticulitis with mircoperforation and abscess formation. She has been admitted under the general surgical services. Medical services are consulted for management of her medical problems. DM has not been on any meds for months. 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 (Last seen in Dr. Butler's clinic on 10/20) Hba1c 7.9 POCs controlled on clear liquids -continue SSI, POCs -will need outpatient follow-up with endocrinology Microcytic Anemia H/H trending down Follow CBC HTN BP on the softer side, will hold antihypertensives - particularly since she has not been compliant with them. COPD not in exacerabation Advair is NF, will switch to Breo Diverticulitis with microperf agree with IV zosyn. Per Gen surg notes -- repeat CT showing persistent abscess, but size borderline for drainage. Plan to continue medical management hold off on drainage at this time. Blood cultures negative h/o chronic leukocytosis WBC down to 10.5 Morbid obesity. BMI 54.9 DVT prophylaxis-mechanical devices Attending-Dr. Burgess Quality Stroke Does the patient have a stroke diagnosis?: No VTE Prior VTE?: No VTE Risk Level:: Medical - moderate - high VTE Device Contraindication: N/A - Device Ordered VTE Drug Contraindication: N/A - Med Ordered
[2021-04-03 15:12] VITALS: BP 133/82; PULSE 70; RESP 18; TEMP 36.2; O2SAT 99
[2021-04-03 15:57] LABS: Glucose, Whole Blood 118 mg/dL (60-115)
[2021-04-03 20:00] VITALS: BP 143/70; PULSE 73; RESP 18; TEMP 36.5; O2SAT 98
[2021-04-03 20:09] LABS: Glucose, Whole Blood 192 mg/dL (60-115)
[2021-04-04] MEDS: 0.9 % Sodium Chloride Flush 3 ML SYRINGE IVFLUSH ×4 (00:05→21:29)
[2021-04-04 00:11] VITALS: BP 177/77; PULSE 76; RESP 16; TEMP 36.5; O2SAT 97
[2021-04-04] MEDS: HYDROmorphone HCl 1 MG/ML SYRINGE 0.25 MG IVPUSH ×2 (00:14→21:28)
[2021-04-04 03:53] VITALS: BP 110/75; PULSE 63; RESP 18; TEMP 37; O2SAT 96
[2021-04-04] MEDS: oxyCODONE HCl Immed Release 5 MG TABLET PO ×2 (04:19→10:45)
[2021-04-04] MEDS: Piperacillin Sodium/Tazobactam 3.375 GM in 0.9 % Sodium Chloride 50 ML IV ×4 (04:20→22:53)
--- NOTE | 2021-04-04 05:01 | PC.NURSE ---
Patient reports heavier than usual period with large clot this morning, unwitnessed. HH trending down, hospitalist notified via [employer]
[2021-04-04 06:34] LABS: MANUAL DIFF FLAG NO
[2021-04-04 06:47] LABS: Basophils Percent Auto 0.4 % (0-2); Eosinophils Absolute Auto 0.3 X10*3/uL (0.0-0.4); Eosinophils Percent Auto 2.6 % (0-4); Hematocrit 30.1 % (37-47); Imm Gran Abs Auto 0.05 X10*3/uL (0.00-0.03); Imm Gran Pct Auto 0.5 % (0.0-0.4); Lymphocytes Absolute Auto 2.4 X10*3/uL (1.2-4.9); Lymphocytes Percent Auto 25.5 % (20-40); Mean Corpuscular HGB Conc 33.2 g/dl (31.0-35.0); Mean Corpuscular Hemoglobin 25.3 pg (27.0-33.0); Mean Platelet Volume 11.8 fL (9.4-12.3); Monocytes Absolute Auto 0.6 X10*3/uL (0.1-1.2); Monocytes Percent Auto 6.3 % (2-11); Neutrophils Absolute Auto 6.2 X10*3/uL (2.0-8.3); Neutrophils Percent Auto 64.7 % (45-73); Platelet Count 258 X10*3/uL (160-400); Red Blood Count 3.96 X10*6/uL (4.20-5.50); Red Cell Distribution Width 14.4 % (11.0-16.0); White Blood Count 9.6 X10*3/uL (4.8-10.8)
[2021-04-04 07:09] VITALS: BP 122/88; PULSE 73; RESP 18; TEMP 36.4; O2SAT 97
[2021-04-04 07:32] LABS: Glucose, Whole Blood 134 mg/dL (60-115)
[2021-04-04] MEDS: Fluticasone/Vilanterol 100/25 BLST.W.DEV 1 PUFF INHALE (07:56)
[2021-04-04 07:57] VITALS: PULSE 86; O2SAT 98
--- NOTE | 2021-04-04 10:25 | P.PNIM_ITS ---
Subjective Subjective Date of Service: 04/04/21 Interval History: Examined this morning Follow-up for perforated diverticulitis with abscess Started on low residue diabetic diet yesterday. Tolerating well. No nausea, vomiting. Had bowel movement this morning Repeat CT scan of abdomen planned for today. Patient eager to return home Still reporting menstrual cramps Review of Systems Review of Systems: Yes all other systems are reviewed and are negative Constitutional Constitutional: Denies chills and Denies fever(s) Cardiovascular Cardiovascular: Denies chest pain Respiratory Respiratory: Denies cough Physical Exam Vital Signs: Vital Signs: Last Vital Signs Temp 97.5 F 04/04/21 07:09 Pulse 73 04/04/21 07:09 Resp 18 04/04/21 07:09 BP 122/88 04/04/21 07:09 Pulse Ox 97 04/04/21 07:09 Body Mass Index 54.8 Const: General: alert and awake Nutritional Appearance: obese Orientation/consciousness: patient oriented x3 HENMT: Head: Yes normocephalic and Yes atraumatic Eyes: Sclerae: sclerae normal Pupils: Equal, round and reactive pupils present Chest: Chest palpation & inspection: normal inspection of the chest Resp: Effort & Inspection: normal respiratory effort and no respiratory distress Cardio: Rate: regular rate Rhythm: regular rhythm GI: Palpation (GI): Soft to palpation, nontender and no guarding Neuro: General: patient oriented x3 Cranial nerves: Yes CN's II-XII intact bilaterally, Yes Equal, round and reactive pupils present and Yes Bilaterally intact EOM present Extrem: Other: no edema General: Yes normal to inspection Objective Data Active Medications Docusate Sodium (Docusate Sodium 100 Mg Capsule) 100 mg PO BID PRN PRN Reason: Constipation Last Admin: 04/02/21 11:44 Dose: 100 mg Documented by: JOÃO Fluticasone/Vilanterol (Fluticasone/Vilanterol 100/25 Blst.W.Dev) 1 puff INHALE RDAILY [facility] Last Admin: 04/04/21 07:56 Dose: 1 puff Documented by: LISA Hydromorphone HCl (Hydromorphone Hcl 1 Mg/Ml Syringe) 0.25 mg IVPUSH Q4H PRN; Protocol PRN Reason: Pain, Severe (Pain Scale 7-10) Last Admin: 04/04/21 00:14 Dose: 0.25 mg Documented by: ANGEL Piperacillin Sod/Tazobactam (Sod 3.375 gm/ Sodium Chloride) 50 mls @ 100 mls/hr IV Q6H [facility] Last Infusion: 04/04/21 05:03 Dose: 0 mls/hr Documented by: ANAI Ondansetron HCl (Ondansetron Hcl 4 Mg/2 Ml Vial) 4 mg IVPUSH Q8H PRN PRN Reason: Nausea Last Admin: 03/31/21 18:01 Dose: 4 mg Documented by: COTDEV Oxycodone HCl (Oxycodone Hcl Immed Release 5 Mg Tablet) 5 mg PO Q4H PRN PRN Reason: Pain, Moderate (Pain Scale 4-6 Last Admin: 04/04/21 04:19 Dose: 5 mg Documented by: ANAI Pharmacy Consult (Consult Rx Perform Med Rec) 1 each MISCELLANE ONCE PRN PRN Reason: Consult order Sodium Chloride (0.9 % Sodium Chloride Flush 3 Ml Syringe) 3 ml IVFLUSH QSHIFT [facility] Last Admin: 04/04/21 00:05 Dose: 3 ml Documented by: ANGEL Labs CBC & Chem 7: 04/04/21 05:37 04/03/21 05:20 Labs: Laboratory Results - last 24 hr 04/03/21 04/03/21 04/03/21 11:00 15:50 19:52 MCV MCH MCHC RDW Plt Count MPV Immature Gran % (Auto) Neut % (Auto) Lymph % (Auto) [place] % (Auto) Eos % (Auto) Baso % (Auto) Lymph # (Auto) [place] # (Auto) Eos # (Auto) Baso # (Auto) Abs Immat Gran (auto) Absolute Neuts (auto) Absolute Nucleated RBC Nucleated RBC % (auto) POC Glucose 142 H 118 H 192 H 04/04/21 04/04/21 05:37 07:12 MCV 76.0 L MCH 25.3 L MCHC 33.2 RDW 14.4 Plt Count 258 MPV 11.8 Immature Gran % (Auto) 0.5 H Neut % (Auto) 64.7 Lymph % (Auto) 25.5 [place] % (Auto) 6.3 Eos % (Auto) 2.6 Baso % (Auto) 0.4 Lymph # (Auto) 2.4 [place] # (Auto) 0.6 Eos # (Auto) 0.3 Baso # (Auto) 0.0 Abs Immat Gran (auto) 0.05 H Absolute Neuts (auto) 6.2 Absolute Nucleated RBC 0.000 Nucleated RBC % (auto) 0.0 POC Glucose 134 H Assessment and Plan (1) Diverticulitis: Status: Acute (2) Morbid obesity with BMI of 50.0-59.9, adult: Status: Acute (3) Hypertension: Status: Acute (4) Diabetes type 2, uncontrolled: Status: Acute Assessment and Plan: This is a 45 yo F with a PMH of HTN, DM, COPD who presents to the hospital with abdominal symptoms and is diagnosed with diverticulitis with mircoperforation and abscess formation. She has been admitted under the general surgical services. Medical services are consulted for management of her medical problems. DM has not been on any meds for months. 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 (Last seen in Dr. Butler's clinic on 10/20) Hba1c 7.9 POCs trending up on diabetic diet, will add SSI. will need outpatient follow-up with endocrinology Microcytic Anemia H/H stable Follow CBC HTN Few high readings, but trend mostly controlled will hold antihypertensives - particularly since she has not been compliant with them. COPD not in exacerabation Advair is NF, will switch to Breo Diverticulitis with microperf agree with IV zosyn. Per Gen surg notes -plan for repeat CT today Blood cultures negative h/o chronic leukocytosis wbc normalized Morbid obesity. BMI 54.9 DVT prophylaxis-mechanical devices Attending-Dr. Burgess Quality Stroke Does the patient have a stroke diagnosis?: No VTE Prior VTE?: No VTE Risk Level:: Medical - moderate - high VTE Device Contraindication: N/A - Device Ordered VTE Drug Contraindication: N/A - Med Ordered
--- NOTE | 2021-04-04 11:23 | PM.PNGS ---
Subjective Subjective Date of Service: 04/04/21 Interval history: Reports increased anxiety regarding length of hospitalization, but feeling better overall. Passing flatus and stool without recurrence of pelvic pain and pressure, though having menstrual cramps currently. Physical Exam Vital Signs: Vital Signs: Last Vital Signs Temp 97.5 F 04/04/21 07:09 Pulse 73 04/04/21 07:09 Resp 18 04/04/21 07:09 BP 122/88 04/04/21 07:09 Pulse Ox 97 04/04/21 07:09 Body Mass Index 54.8 Laboratory Results - last 24 hr 04/03/21 04/03/21 04/04/21 15:50 19:52 05:37 WBC 9.6 RBC 3.96 L Hgb 10.0 L Hct 30.1 L MCV 76.0 L MCH 25.3 L MCHC 33.2 RDW 14.4 Plt Count 258 MPV 11.8 Immature Gran % (A uto) 0.5 H Neut % (Auto) 64.7 Lymph % (Auto) 25.5 [place] % (Auto) 6.3 Eos % (Auto) 2.6 Baso % (Auto) 0.4 Lymph # (Auto) 2.4 [place] # (Auto) 0.6 Eos # (Auto) 0.3 Baso # (Auto) 0.0 Abs Immat Gran (au to) 0.05 H Absolute Neuts (au to) 6.2 Absolute Nucleated RBC 0.000 Nucleated RBC % (a uto) 0.0 POC Glucose 118 H 192 H 04/04/21 07:12 WBC RBC Hgb Hct MCV MCH MCHC RDW Plt Count MPV Immature Gran % (A uto) Neut % (Auto) Lymph % (Auto) [place] % (Auto) Eos % (Auto) Baso % (Auto) Lymph # (Auto) [place] # (Auto) Eos # (Auto) Baso # (Auto) Abs Immat Gran (au to) Absolute Neuts (au to) Absolute Nucleated RBC Nucleated RBC % (a uto) POC Glucose 134 H Const: General: cooperative, no acute distress, alert and anxious Neck: Neck: Yes trachea midline and Yes supple Resp: Effort & Inspection: normal respiratory effort Auscultation: clear to auscultation bilaterally Cardio: Rate: regular rate Rhythm: regular rhythm GI: Other: Round, soft, mildly tender left lower quadrant, no palpable masses, bowel sounds normal Skin: Other: Normal color, warm and dry Procedures Date of Service Date of Service: 04/04/21 Progress Note: A&P Assessment and plan (1) Diabetes type 2, uncontrolled: Status: Acute (2) Diverticulitis of large intestine with abscess: Status: Acute Assessment and Plan: 45-year-old female admitted with diverticulitis with microperforation and pelvic abscess. She is improved clinically. White blood count has normalized. Repeat CT scan of the abdomen and pelvis is pending. Continue IV Zosyn. If the CT scan reveals significant improvement, anticipate discharge home in the next 24 hours on oral antibiotics. If the abscess appears stable or enlarged, CT-guided drainage may be needed. Discussed with her. Diabetes mellitus. Blood sugars increased following changed to low residue diabetic diet. Sliding scale insulin added per hospitalists. Hypertension-blood pressure generally has been in the normal range. Lisinopril remains on hold. Fall Risk Details Current Medications: Current Medications Generic Name Dose Route Start Last Admin Trade Name Freq PRN Reason Stop Dose Admin Dextrose 25 gm 04/04/21 10:24 Dextrose 50 % 25 Gm/50 Ml Vial IVPUSH Q15M PRN per Hypoglycemia Standing Ord. Protocol Docusate Sodium 100 mg 04/02/21 11:09 04/02/21 11:44 Docusate Sodium 100 Mg Capsule PO 100 mg BID PRN Administration Constipation Fluticasone/Vilanterol 1 puff 03/31/21 09:30 04/04/21 07:56 Fluticasone/Vilanterol 100/25 Blst.W.Dev INHALE 1 puff RDAILY TEMO Administration Glucose 15 gm 04/04/21 10:24 Glucose Gel 15 Gm Gel..Gram. PO Q15M PRN per Hypoglycemia Standing Ord. Protocol Hydromorphone HCl 0.25 mg 04/01/21 08:18 04/04/21 00:14 Hydromorphone Hcl 1 Mg/Ml Syringe IVPUSH 0.25 mg Q4H PRN Administration Pain, Severe (Pain Scale 7-10) Protocol Piperacillin Sod/Tazobactam 50 mls @ 100 mls/hr 03/31/21 05:00 04/04/21 11:06 Sod 3.375 gm/ Sodium Chloride IV Infused Q6H [facility] Infusion Insulin Human Lispro 0 unit 04/04/21 11:30 Insulin Lispro 100 Unit/Ml 3 Ml Vial SUBCUT QIDACHS [facility] Protocol Ondansetron HCl 4 mg 03/30/21 23:32 03/31/21 18:01 Ondansetron Hcl 4 Mg/2 Ml Vial IVPUSH 4 mg Q8H PRN Administration Nausea Oxycodone HCl 5 mg 04/01/21 08:18 04/04/21 10:45 Oxycodone Hcl Immed Release 5 Mg Tablet PO 5 mg Q4H PRN Administration Pain, Moderate (Pain Scale 4-6 Pharmacy Consult 1 each 03/30/21 23:05 Consult Rx Perform Med Rec MISCELLANE ONCE PRN Consult order Sodium Chloride 3 ml 03/31/21 00:00 04/04/21 10:35 0.9 % Sodium Chloride Flush 3 Ml Syringe IVFLUSH 3 ml QSHIFT [facility] Administration Time Spent With Patient Time: Total time spent is greater than 50% in coordination of care (as documented) at patient's floor/unit and/or counseling patient: Time with patient: 15 - 24 minutes Quality Stroke Does the patient have a stroke diagnosis?: No VTE Prior VTE?: No VTE Risk Level:: Medical - moderate - high VTE Device Contraindication: N/A - Device Ordered VTE Drug Contraindication: N/A - Med Ordered
[2021-04-04] MEDS: iohexoL 350 MG/ML 100 ML INFUS..BTL IV (11:38)
[2021-04-04 11:41] LABS: Glucose, Whole Blood 142 mg/dL (60-115)
[2021-04-04 15:00] VITALS: BP 115/74; PULSE 66; RESP 18; TEMP 36.6; O2SAT 97
[2021-04-04 16:24] LABS: Glucose, Whole Blood 167 mg/dL (60-115)
[2021-04-04] MEDS: Insulin Lispro 100 UNIT/ML 3 ML VIAL SUBCUT ×2 (16:58→21:24)
[2021-04-04 20:24] LABS: Glucose, Whole Blood 162 mg/dL (60-115)
[2021-04-04 23:46] VITALS: BP 111/58; PULSE 52; RESP 16; TEMP 36.6; O2SAT 95
[2021-04-05] MEDS: oxyCODONE HCl Immed Release 5 MG TABLET PO ×3 (00:45→11:01)
[2021-04-05 03:36] VITALS: BP 98/52; PULSE 72; RESP 14; TEMP 36.4; O2SAT 94
[2021-04-05] MEDS: Piperacillin Sodium/Tazobactam 3.375 GM in 0.9 % Sodium Chloride 50 ML IV ×4 (05:12→22:47)
[2021-04-05 07:09] VITALS: BP 119/77; PULSE 70; RESP 19; TEMP 36.8; O2SAT 96
[2021-04-05] MEDS: 0.9 % Sodium Chloride Flush 3 ML SYRINGE IVFLUSH ×3 (07:10→23:46)
[2021-04-05 07:27] LABS: Glucose, Whole Blood 136 mg/dL (60-115)
--- NOTE | 2021-04-05 08:01 | PM.PNGS ---
Subjective Subjective Date of Service: 04/05/21 Interval history: low back pain has resolved tolerating diet asking to go home no fever Physical Exam Vital Signs: Vital Signs: Last Vital Signs Temp 98.2 F 04/05/21 07:09 Pulse 70 04/05/21 07:09 Resp 19 04/05/21 07:09 BP 119/77 04/05/21 07:09 Pulse Ox 96 04/05/21 07:09 Body Mass Index 54.8 Const: Other: Chemistry 04/03/21 05:20 Sodium 139 Potassium 3.6 Carbon Dioxide 24 BUN 5 L Creatinine 0.77 Calcium 8.3 L Hematology 04/03/21 04/04/21 05:20 05:37 WBC 10.5 9.6 Hgb 9.6 L 10.0 L Plt Count 233 258 General: comfortable and no acute distress Resp: Effort & Inspection: normal respiratory effort Cardio: Rate: regular rate GI: Other: soft, very minimal tenderness to deep palpation, loewr abd, Inspection: No distended Palpation (GI): not firm and no guarding Procedures Date of Service Date of Service: 04/05/21 Progress Note: A&P Assessment and plan (1) Diverticulitis of large intestine with abscess: Status: Acute Assessment and Plan: Much improved Plan 1 more day of IV antibiotics and DC tomorrow Good GI function Patient refusing insulin She understands the plan Fall Risk Details Current Medications: Current Medications Generic Name Dose Route Start Last Admin Trade Name Freq PRN Reason Stop Dose Admin Dextrose 25 gm 04/04/21 10:24 Dextrose 50 % 25 Gm/50 Ml Vial IVPUSH Q15M PRN per Hypoglycemia Standing Ord. Protocol Docusate Sodium 100 mg 04/02/21 11:09 04/02/21 11:44 Docusate Sodium 100 Mg Capsule PO 100 mg BID PRN Administration Constipation Fluticasone/Vilanterol 1 puff 03/31/21 09:30 04/04/21 07:56 Fluticasone/Vilanterol 100/25 Blst.W.Dev INHALE 1 puff RDAILY TEMO Administration Glucose 15 gm 04/04/21 10:24 Glucose Gel 15 Gm Gel..Gram. PO Q15M PRN per Hypoglycemia Standing Ord. Protocol Hydromorphone HCl 0.25 mg 04/01/21 08:18 04/04/21 21:28 Hydromorphone Hcl 1 Mg/Ml Syringe IVPUSH 0.25 mg Q4H PRN Administration Pain, Severe (Pain Scale 7-10) Protocol Piperacillin Sod/Tazobactam 50 mls @ 100 mls/hr 03/31/21 05:00 04/05/21 05:43 Sod 3.375 gm/ Sodium Chloride IV Infused Q6H [facility] Infusion Insulin Human Lispro 0 unit 04/04/21 11:30 04/05/21 07:09 Insulin Lispro 100 Unit/Ml 3 Ml Vial SUBCUT Not Given QIDACHS [facility] Protocol Ondansetron HCl 4 mg 03/30/21 23:32 03/31/21 18:01 Ondansetron Hcl 4 Mg/2 Ml Vial IVPUSH 4 mg Q8H PRN Administration Nausea Oxycodone HCl 5 mg 04/01/21 08:18 04/05/21 07:11 Oxycodone Hcl Immed Release 5 Mg Tablet PO 5 mg Q4H PRN Administration Pain, Moderate (Pain Scale 4-6 Pharmacy Consult 1 each 03/30/21 23:05 Consult Rx Perform Med Rec MISCELLANE ONCE PRN Consult order Sodium Chloride 3 ml 03/31/21 00:00 04/05/21 07:10 0.9 % Sodium Chloride Flush 3 Ml Syringe IVFLUSH 3 ml QSHIFT [facility] Administration Time Spent With Patient Time: Total time spent is greater than 50% in coordination of care (as documented) at patient's floor/unit and/or counseling patient: Time with patient: 15 - 24 minutes Quality Stroke Does the patient have a stroke diagnosis?: No VTE Prior VTE?: No VTE Risk Level:: Medical - moderate - high VTE Device Contraindication: N/A - Device Ordered VTE Drug Contraindication: N/A - Med Ordered
[2021-04-05] MEDS: Fluticasone/Vilanterol 100/25 BLST.W.DEV 1 PUFF INHALE (08:42)
[2021-04-05 08:43] VITALS: PULSE 84; O2SAT 96
[2021-04-05] MEDS: Docusate Sodium 100 MG CAPSULE PO (11:02)
[2021-04-05 11:21] VITALS: BP 131/73; PULSE 77; RESP 16; TEMP 36.2; O2SAT 98
[2021-04-05 11:25] LABS: Glucose, Whole Blood 145 mg/dL (60-115)
[2021-04-05] MEDS: HYDROmorphone HCl 0.5 MG/0.5 ML SYRINGE 0.25 MG IVPUSH ×3 (13:59→22:46)
[2021-04-05 15:21] VITALS: BP 129/89; PULSE 69; RESP 18; TEMP 36.9; O2SAT 97
[2021-04-05 16:11] LABS: Glucose, Whole Blood 127 mg/dL (60-115)
[2021-04-05 20:10] LABS: Glucose, Whole Blood 162 mg/dL (60-115)
[2021-04-05 23:26] VITALS: BP 121/72; PULSE 73; RESP 16; TEMP 36.4; O2SAT 95
[2021-04-06] MEDS: Piperacillin Sodium/Tazobactam 3.375 GM in 0.9 % Sodium Chloride 50 ML IV (05:42)
[2021-04-06 07:27] VITALS: BP 110/56; PULSE 62; RESP 16; TEMP 36.3; O2SAT 95
[2021-04-06 08:04] LABS: Glucose, Whole Blood 147 mg/dL (60-115)
--- NOTE | 2021-04-06 08:25 | PM.PNGS ---
Subjective Subjective Date of Service: 04/06/21 <Mitra Cardenas PA-C - Last Filed: 04/06/21 08:29> 04/07/21 <Kaushik Gómez MD - Last Filed: 04/07/21 11:17> Interval history: Feels much better. Occasionally has LLQ pain. Tolerating solid diet. Moving bowels but straining. <Mitra Cardenas PA-C - Last Filed: 04/06/21 08:29> Physical Exam Vital Signs: Vital Signs: Last Vital Signs Temp 97.3 F 04/06/21 07:27 Pulse 62 04/06/21 07:27 Resp 16 04/06/21 07:27 BP 110/56 L 04/06/21 07:27 Pulse Ox 95 04/06/21 07:27 Body Mass Index 54.8 <Mitra Cardenas PA-C - Last Filed: 04/06/21 08:29> Const: General: healthy appearing, comfortable, no acute distress and alert <Mitra Cardenas PA-C - Last Filed: 04/06/21 08:29> Orientation/consciousness: patient oriented x3 <Mitra Cardenas PA-C - Last Filed: 04/06/21 08:29> Resp: Effort & Inspection: normal respiratory effort <YOMAIRA Peterson Last Filed: 04/06/21 08:29> GI: Inspection: No distended <Mitra Cardenas PA-C - Last Filed: 04/06/21 08:29> Palpation (GI): Soft to palpation and nontender <Mitra Cardenas PA-C - Last Filed: 04/06/21 08:29> Skin: General skin exam: no rashes or lesions noted <Mitra Cardenas PA-C - Last Filed: 04/06/21 08:29> Neuro: General: patient oriented x3 <YOMAIRA Peterson Last Filed: 04/06/21 08:29> Extrem: General: Yes no clubbing, cyanosis or edema <YOMAIRA Peterson Last Filed: 04/06/21 08:29> Procedures Date of Service Date of Service: 04/06/21 <Mitra Cardenas PA-C - Last Filed: 04/06/21 08:29> Progress Note: A&P Assessment and plan (1) Diverticulitis of large intestine with abscess: Status: Acute <Mitra Cardenas PA-C - Last Filed: 04/06/21 08:29> Assessment and Plan: Patient looks well Says pain has resolved Abdomen soft No fever Seen and examined Okay to DC home Agree with BRUNILDA Cardenas <Kaushik Gómez MD - Last Filed: 04/07/21 11:17> (2) Diabetes type 2, uncontrolled: Status: Acute <Mitra Cardenas PA-C - Last Filed: 04/06/21 08:29> Assessment and Plan: 45 year old admitted with diverticulitis with microperforation. Has improved with nonoperative measures. Stable for discharge today with PO Augmentin course. Colace for bowel regimen. Educated on symptoms/signs for return including increasing abdominal pain, fever, chills, nausea/vomiting. Patient comfortable with plan. Will f/u with Dr. Gómez in office, endocrine and PCP for smoking cessation. <Mitra Cardenas PA-C - Last Filed: 04/06/21 08:29> Fall Risk Details Current Medications: Current Medications Generic Name Dose Route Start Last Admin Trade Name Freq PRN Reason Stop Dose Admin Dextrose 25 gm 04/04/21 10:24 Dextrose 50 % 25 Gm/50 Ml Vial IVPUSH Q15M PRN per Hypoglycemia Standing Ord. Protocol Docusate Sodium 100 mg 04/02/21 11:09 04/05/21 11:02 Docusate Sodium 100 Mg Capsule PO 100 mg BID PRN Administration Constipation Fluticasone/Vilanterol 1 puff 03/31/21 09:30 04/05/21 08:42 Fluticasone/Vilanterol 100/25 Blst.W.Dev INHALE 1 puff RDAILY TEMO Administration Glucose 15 gm 04/04/21 10:24 Glucose Gel 15 Gm Gel..Gram. PO Q15M PRN per Hypoglycemia Standing Ord. Protocol Hydromorphone HCl 0.25 mg 04/05/21 13:15 04/05/21 22:46 Hydromorphone Hcl 0.5 Mg/0.5 Ml Syringe IVPUSH 0.25 mg Q4H PRN Administration Pain, Severe (Pain Scale 7-10) Protocol Piperacillin Sod/Tazobactam 50 mls @ 100 mls/hr 03/31/21 05:00 04/06/21 06:38 Sod 3.375 gm/ Sodium Chloride IV Infused Q6H [facility] Infusion Insulin Human Lispro 0 unit 04/04/21 11:30 04/06/21 08:07 Insulin Lispro 100 Unit/Ml 3 Ml Vial SUBCUT Not Given QIDACHS [facility] Protocol Ondansetron HCl 4 mg 03/30/21 23:32 03/31/21 18:01 Ondansetron Hcl 4 Mg/2 Ml Vial IVPUSH 4 mg Q8H PRN Administration Nausea Pharmacy Consult 1 each 03/30/21 23:05 Consult Rx Perform Med Rec MISCELLANE ONCE PRN Consult order Sodium Chloride 3 ml 03/31/21 00:00 04/05/21 23:46 0.9 % Sodium Chloride Flush 3 Ml Syringe IVFLUSH 3 ml QSHIFT [facility] Administration <Mitra Cardenas PA-C - Last Filed: 04/06/21 08:29> Time Spent With Patient Time: Total time spent is greater than 50% in coordination of care (as documented) at patient's floor/unit and/or counseling patient: <Mitra Cardenas PA-C - Last Filed: 04/06/21 08:29> Time with patient: 15 - 24 minutes <Mitra Cardenas PA-C - Last Filed: 04/06/21 08:29> Quality Stroke Does the patient have a stroke diagnosis?: No <Mitra Cardenas PA-C - Last Filed: 04/06/21 08:29> VTE Prior VTE?: No <Mitra Cardenas PA-C - Last Filed: 04/06/21 08:29> VTE Risk Level:: Medical - moderate - high <Mitra Cardenas PA-C - Last Filed: 04/06/21 08:29> VTE Device Contraindication: N/A - Device Ordered <YOMAIRA Peterson Last Filed: 04/06/21 08:29> VTE Drug Contraindication: N/A - Med Ordered <YOMAIRA Peterson Last Filed: 04/06/21 08:29>
[2021-04-06] MEDS: Fluticasone/Vilanterol 100/25 BLST.W.DEV 1 PUFF INHALE (08:28)
--- NOTE | 2021-04-09 11:06 | PM.DS ---
DS: Providers Provider Date of Service: 04/06/21 Date of admission: 03/30/21 23:27 Primary care physician: Diogo Wright MD Consults: 03/30/21 23:34 Consult to Hospitalist Routine Consulting Provider: Hospitalist Reason For Exam: HTN, DM DS: Diagnosis Discharge Diagnosis (1) Diverticulitis of large intestine with abscess: Status: Acute (2) Diabetes type 2, uncontrolled: Status: Acute DS: Summary Hospital Course Hospital Course: BRIEF HPI: Mckenzie Quiñonez is a 45 year old female who came in last night because of what she described as lower back pain and some lower abdominal pain.? She does state that she has had kidney problems in the past and thought that her pain was because of this.? She also describes some occasional pain on her abdomen which she said she has had for many years now.? She has had hernia repair about 5 years ago in [place] which had recurred.? She says that they were planning on repair of this recurrent hernia on the supraumbilical area after she loses weight.? She therefore has been seeing a surgeon for this. She denies any nausea or vomiting.? She denies any fever or chills. She says that her abdominal pain is not severe.? Her main complaint is her pain on her back and flank areas. Work up in the ED included a CT scan of the abdomen/pelvis which showed some fat stranding around the distal sigmoid, with note of what appears to be 3.5 cm diameter abscess suggestive of a microperforation.?She also had a leukocytosis of 18.4. HOSPITAL COURSE:?The patient was admitted to the surgical service for further treatment of the acute sigmoid diverticulitis with microperforation. She was tender in the LLQ/suprapubic area but otherwise had a very benign exam and was nontoxic appearing.?She was started on IV antibiotics with Zosyn with plan to repeat her CAT scan tomorrow and see if there was improvement. CT drainage may be required if worsening. She was kept on clear liquids. Medical service was consulted in view of her diabetes and hypertension. The patient had an uncomplicated hospital stay and remained inpatient for IV antibiotics. The follow up CT scans showed improvement of the abscess and she improved clinically. Therefore supportive measures were continued and CT drainage was held. Her leukocytosis downtrended and eventually normalized. She also had a history of a chronic leukocytosis and had been seen as MG by heme/onc for evaluation. Her pain eventually resolved. She was advanced to a low residue diet. She began to move her bowels. She felt well and was ready for discharge to home on 04/06/21. She completed a 7 day course of IV zosyn and was discharged to home on a PO course of Augmentin BID PO. She is to follow up with Dr. Gómez in office. She will need a colonoscopy down the line once inflammation resolves. Status at Discharge Functional status at discharge: independent ambulation Overall status at discharge: patient is progressing back to baseline Time Spent with Patient Time attestation: Total time spent providing and/or coordinating discharge services: Discharge coordination time: Greater than 30 minutes Quality: Stroke Does the patient have a stroke diagnosis?: No Physical Exam Vital Signs: Vital Signs: Last Vital Signs Temp 97.3 F 04/06/21 07:27 Pulse 62 04/06/21 07:27 Resp 16 04/06/21 07:27 BP 110/56 L 04/06/21 07:27 Pulse Ox 95 04/06/21 07:27 Body Mass Index 54.8 Const: General: healthy appearing, comfortable and no acute distress Orientation/consciousness: patient oriented x3 Eyes: Sclerae: sclerae normal Resp: Effort & Inspection: normal respiratory effort GI: Inspection: No distended Palpation (GI): Soft to palpation, nontender, no guarding and not rigid Percussion: Yes normal to percussion Skin: General skin exam: no rashes or lesions noted Neuro: General: patient oriented x3 Extrem: General: Yes no clubbing, cyanosis or edema Discharge Plan Discharge Patient Disposition: Home, Self-Care Discharge Diagnosis: diverticulitis Referrals: Diogo Wright MD [Primary Care Provider] - 1 Week Kaushik Gómez MD [Physician] - 2 Weeks Juan Fitzgerald MD [Physician] - 2 Weeks Discharge Medications: New oxycodone 5 mg tablet 5 mg PO TID PRN (Reason: pain) Qty: 20 RF: 0 amoxicillin-pot clavulanate [Augmentin] 875-125 mg tablet 1 tab PO BID Qty: 14 RF: 0 docusate sodium [Colace] 100 mg capsule 100 mg PO BID PRN (Reason: constipation) Qty: 30 RF: 0 Continued lisinopril 2.5 mg tablet 2.5 mg PO DAILY 30 Days Qty: 30 RF: 11 atorvastatin 20 mg tablet 20 mg PO BEDTIME 90 Days Qty: 90 RF: 1 (DME) FreeStyle Tiff 14 Day Sensor Kit See Rx Instructions .ROUTE .MEDSUPPLY Qty: 2 RF: 11 (DME) blood sugar diagnostic Strip See Rx Instructions strip .ROUTE DAILY Qty: 100 RF: 11 fluticasone propion-salmeterol [Advair Diskus] 250-50 mcg/dose blister with device 1 puff inhalation Q12H RF: 0 cyanocobalamin (vitamin B-12) 1,000 mcg Tablet 1,000 mcg PO DAILY RF: 0 ascorbic acid (vitamin C) [Vitamin C] 500 mg Tablet 500 mg PO DAILY RF: 0 biotin 1,000 mcg Tablet,Chewable 1,000 mcg PO DAILY RF: 0 Discharge Orders: Discharge Order (Routine); Ordered 04/06/21 Ordered By: Mitra Cardenas Diet: diabetic diet Activity on Discharge: As tolerated Stand Alone Forms: Patient Portal Discharge page Care Plan Goals: resolution of pain, return to baseline health Health Concerns: diverticulitis with microperforation, diabetes mellitus Plan of Treatment: PO antibiotic course, f/u in office Assessment: Improved Discharge Date/Time: 04/06/21 09:46
== END 2021-04-06 09:46 | disposition home or self-care (01) | DRG 244 ==
LOC: HO.ED 23:06 → HO.EDOVER 03-31 00:44 → HO.S3 03-31 11:57
PROVIDERS: Internal Medicine; Physician Assistant Medical; Physician Assistant Surgical; Admitting Provider Surgery; Emergency Provider Emergency Medicine; PCP Internal Medicine; Visit Provider Surgery
DX: K57.20 Diverticulitis of large intestine with perforation and abscess without bleeding (principal); E11.42 Type 2 diabetes mellitus with diabetic polyneuropathy; J43.9 Emphysema, unspecified; E66.01 Morbid (severe) obesity due to excess calories; F17.210 Nicotine dependence, cigarettes, uncomplicated; D50.9 Iron deficiency anemia, unspecified; E78.5 Hyperlipidemia, unspecified; D72.829 Elevated white blood cell count, unspecified; Z68.43 Body mass index [BMI] 50.0-59.9, adult; I10 Essential (primary) hypertension; Z20.822 Contact with and (suspected) exposure to COVID-19; Z71.6 Tobacco abuse counseling; Z79.51 Long term (current) use of inhaled steroids; Z79.899 Other long term (current) drug therapy
CPT/HCPCS: 36415; 74176; 74177; 80048; 80053; 81003; 81025; 82947; 83036; 83605; 83690; 84484; 85025; 85027; 87040; 87635; 93005; 96365; 96372; 99285; J0131; J1170; J1885; J2270; J2405; J2543; Q9967

== ENCOUNTER 2021-04-14 15:03 | Inpatient (IN) | payer OTHER, SELFPAY ==
--- NOTE | ~2021-04-14 | CT_ITS ---
PROCEDURE: CT GUIDED DRAINAGE, PERITONEAL ABSCESS CLINICAL INFORMATION: Diverticular abscess COMPARISON: Previous CT scans of the abdomen and pelvis most recent 04/14/2021 TECHNIQUE: Procedure and risks and benefits including bleeding, traction injury to the bowel or adjacent organs was discussed with the patient and informed consent was obtained. Patient was positioned in the right decubitus position. Limited axial images through the pelvis were performed. Left buttock was prepped and draped in the usual sterile fashion. The skin and soft tissues were anesthetized with 1% lidocaine plain. CT-guided and a 22-gauge needle, access to the small fluid collection in the left pelvis adjacent to the lower sigmoid colon or upper rectum was obtained. 15 mL of purulent-appearing fluid was aspirated. Specimen was sent for Gram stain and culture. Patient received Versed 1 mg and fentanyl 50 mcg intravenously during the procedure. Total sedation time was [address] examination was performed using dose optimization techniques as appropriate, variously including the following: *Automated exposure control *Adjustment of mA and/or kV according to patient size (this includes techniques or standardized protocols for targeted exams where dose is matched to indication/reason for exam; i.e. extremities or head) *Use of iterative reconstruction technique DLP: 424 mGy-cm FINDINGS: There is a 3 cm air fluid level to the left of the distal sigmoid colon or upper rectum that was targeted for fine-needle aspiration. There is diverticulitis of the colon. There is stranding of the surrounding fat. There are small more inferior air pockets suggestive of small abscesses or contained perforation. CT/CT drain peritoneum IMPRESSION: CT-guided left pelvic aspiration.
--- NOTE | ~2021-04-14 | CT_ITS ---
EXAMINATION: CT ABDOMEN AND PELVIS WITHOUT CONTRAST CLINICAL INFORMATION: Abdominal pain/diverticulitis/rule out perforated viscus COMPARISON: Prior CT scans of the abdomen and pelvis dated 04/04/2021, 04/01/2021 and 03/30/2021 TECHNIQUE: Multidetector volumetric imaging was performed from the superior aspect of the liver through the pubic symphysis. Sagittal and coronal reformatted images were obtained on the technologist's workstation. This CT examination was performed using dose optimization techniques as appropriate, variously including the following: *Automated exposure control *Adjustment of mA and/or kV according to patient size (this includes techniques or standardized protocols for targeted exams where dose is matched to indication/reason for exam; i.e. extremities or head) *Use of iterative reconstruction technique DLP: 918 mGy-cm FINDINGS: LUNG BASES: The visualized lung bases are unremarkable. LIVER, GALLBLADDER, AND BILIARY TREE: The liver is enlarged measuring over 23 cm in greatest cephalocaudad dimension and demonstrates decreased attenuation consistent with hepatic steatosis. The gallbladder is unremarkable with no evidence of radiopaque gallstones, gallbladder wall thickening, or obvious pericholecystic inflammatory changes. PANCREAS: Unremarkable. SPLEEN: Unremarkable. ADRENAL GLANDS: Unremarkable. KIDNEYS AND URETERS: The kidneys are normal in size, shape, and attenuation. Again seen is a tiny punctate left upper pole renal calculus. No hydronephrosis, hydroureter, or right-sided calculi seen. No perinephric stranding. BLADDER: Unremarkable. GASTROINTESTINAL TRACT: Diverticular changes are present in the sigmoid. Adjacent to the rectum, again seen is an extraluminal fluid collection with air within it consistent with a perforated area of diverticulitis. The collection measures 4.0 x 2.9 x 5.1 cm (4:579). It appears about the same as it did on the 04/04/2021 study with the exception of a bit more air as opposed to fluid within it. A loop of transverse colon is again seen within a ventral hernia just above the umbilicus. There is no evidence of obstruction. The remainder of the colon appears unremarkable. The appendix is normal. The small bowel is unremarkable. ABDOMINAL WALL: There is a tiny periumbilical hernia seen containing only fat. Just superior to the umbilicus is a ventral hernia containing a loop of unobstructed transverse colon. LYMPH NODES: No retroperitoneal lymphadenopathy is seen. VASCULAR: Calcific plaque present in the infrarenal aorta and iliac vessels. PELVIC VISCERA: An anteverted uterus is present. An abnormal adnexal mass is not seen OSSEOUS STRUCTURES: Unremarkable. CT/CT abdomen pelvis wo con IMPRESSION: Perirectal/sigmoid pelvic abscess. This is the same abscess and has been present in the past. It is about the same size as it was on 04/04/2021 but with a bit more air as opposed to fluid within it. There does appear to be a left-sided para-sacral approach for drainage available should this be desired. This critical result was discussed with Dr. Kim at 10:10 PM on the day the exam and it was ascertained that the content and urgency of the report was understood at the time of direct communication.
[2021-04-14 15:51] VITALS: BP 145/100; PULSE 117; RESP 16; TEMP 37; O2SAT 98; BMI 35.4
[2021-04-14] MEDS: Ibuprofen 600 MG TABLET PO (15:58)
[2021-04-14 18:43] LABS: Basophils Absolute Auto 0.1 X10*3/uL (0.0-0.2); Basophils Percent Auto 0.5 % (0-2); Eosinophils Absolute Auto 0.1 X10*3/uL (0.0-0.4); Eosinophils Percent Auto 0.7 % (0-4); Hemoglobin 11.8 g/dl (12.0-16.0); Imm Gran Abs Auto 0.09 X10*3/uL (0.00-0.03); Imm Gran Pct Auto 0.5 % (0.0-0.4); Lymphocytes Absolute Auto 3.5 X10*3/uL (1.2-4.9); Lymphocytes Percent Auto 17.8 % (20-40); MANUAL DIFF FLAG NO; Mean Corpuscular HGB Conc 33.7 g/dl (31.0-35.0); Mean Corpuscular Hemoglobin 25.5 pg (27.0-33.0); Mean Corpuscular Volume 75.6 fL (80-98); Mean Platelet Volume 11.2 fL (9.4-12.3); Monocytes Absolute Auto 0.8 X10*3/uL (0.1-1.2); Neutrophils Absolute Auto 14.8 X10*3/uL (2.0-8.3); Neutrophils Percent Auto 76.5 % (45-73); Platelet Count 324 X10*3/uL (160-400); Red Blood Count 4.63 X10*6/uL (4.20-5.50); Red Cell Distribution Width 14.6 % (11.0-16.0); White Blood Count 19.4 X10*3/uL (4.8-10.8)
[2021-04-14 18:53] LABS: Glucose, Whole Blood 224 mg/dL (60-115)
[2021-04-14 19:02] LABS: Appearance Urine HAZY; Color Urine YELLOW; Glucose Urine UA NEG (NEG); Leukocyte Esterase Urine NEG (NEG); Nitrite Urine NEG (NEG); Specific Gravity - Urine 1.025 (1.005-1.025); UACC Culture Trigger NO; Urine Blood TRACE (NEG); Urine Ketones NEG (NEG); Urine Protein NEG (NEG-TRACE)
[2021-04-14 19:08] LABS: Alanine Aminotransferase 19 U/L (0-31); Albumin Level 3.8 g/dL (3.5-5.0); Alkaline Phosphatase 112 U/L (39-117); Anion Gap 16 (12-20); Aspartate Amino Transferase 12 U/L (5-31); Bilirubin Total 0.6 mg/dL (0.0-1.0); Blood Urea Nitrogen 7 mg/dL (9-16); Calcium 9.3 mg/dL (8.4-10.2); Carbon Dioxide 23 mmol/L (22-29); Chloride 101 mmol/L (96-108); Creatinine Clr Calc Pharmacy 98.3; Estimated Glomerular Filt Rate > 60; Glucose Random 228 mg/dL (60-115); Potassium 4.1 mmol/L (3.3-5.1); Sodium 136 mmol/L (135-145); Total Protein 7.5 g/dL (6.5-8.0)
[2021-04-14 19:12] LABS: Mucus Urine 1+ /LPF; Squamous Epithelial Cell Urine 3+ /LPF; Urine Talc Crystals TRACE /LPF
[2021-04-14 19:13] LABS: Bacteria Urine 1+ /LPF; WBC Urine 0 /HPF (0-4)
--- NOTE | 2021-04-14 19:57 | ED_ITS ---
HPI - Abdominal Pain General Chief Complaint: Abdominal Pain Stated Complaint: ?pelvic pain Time Seen by Provider: 04/14/21 19:55 Source: patient Mode of arrival: ambulatory Limitations: no limitations History of Present Illness HPI narrative: 45-year-old female came in for evaluation of abdominal pain. Pain started since yesterday described as dull aching pain diffusely in the abdomen more to the lower abdomen, pain radiates to the rectum feeling pressure in the rectum and the pelvic area, pain is severe 10/10, constant, no relieving factor, no aggravating factor, no other associated symptoms except mild nausea. Patient was hospitalized 3 weeks ago for complicated diverticulitis. Patient feel same pain when she had diverticulitis. Related Data Home Medications Medication Instructions Recorded Confirmed ascorbic acid (vitamin C) 500 mg 500 mg PO DAILY 03/31/21 03/31/21 tablet (Vitamin C) biotin 1,000 mcg chewable tablet 1,000 mcg PO DAILY 03/31/21 03/31/21 cyanocobalamin (vitamin B-12) 1,000 mcg PO DAILY 03/31/21 03/31/21 1,000 mcg tablet fluticasone 250 mcg-salmeterol 50 1 puff INHALATION Q12H 03/31/21 03/31/21 mcg/dose blistr powdr for inhalation (Advair Diskus) Previous Rx's Medication Instructions Recorded lisinopril 2.5 mg tablet 2.5 mg PO DAILY 30 Days #30 tab 03/05/21 FreeStyle Tiff 14 Day Sensor #2 ea NS 03/15/21 (flash glucose sensor) atorvastatin 20 mg tablet 20 mg PO BEDTIME 90 Days #90 tab 03/15/21 blood sugar diagnostic #100 ea 03/15/21 amoxicillin 875 mg-potassium 1 tab PO BID #14 tab 04/06/21 clavulanate 125 mg tablet (Augmentin) docusate sodium 100 mg capsule 100 mg PO BID PRN #30 cap 04/06/21 (Colace) oxycodone 5 mg tablet 5 mg PO TID PRN #20 tab 04/06/21 Allergies Allergy/AdvReac Type Severity Reaction Status Date / Time latex [LATEX] Allergy Mild RASH Verified 04/01/21 10:38 Review of Systems Review of Systems All other systems are reviewed and are negative Constitutional: Reports as per HPI and Reports no additional constitutional complaints Eyes: Reports as per HPI and Reports no additional eye complaints Reports system reviewed and no additional complaints, except as documented Cardiovascular: Reports as per HPI and Reports no additional cardiovascular complaints Respiratory: Reports as per HPI and Reports no additional respiratory complaints Gastrointestinal: Reports as per HPI and Reports no additional gastrointestinal complaints Genitourinary: Reports no additional female genitourinary complaints Musculoskeletal: Reports no additional musculoskeletal complaints Skin/Breast: Reports system reviewed and no additional complaints, except as docu Psychiatric: Reports no additional psychiatric complaints Endocrine: Reports no additional endocrine complaints Hematologic/Lymphatic: Reports no additional hematologic/lymphatic complaints Allergic/Immunologic: Reports no additional allergic/immunologic complaints Reports system reviewed and no additional complaints, except as documented and Reports Abnormal speech present Physical Exam Vital Signs: Vital Signs: Last Vital Signs Temp 98.8 F 04/14/21 21:33 Pulse 93 04/14/21 21:33 Resp 16 04/14/21 21:46 BP 124/70 04/14/21 21:33 Pulse Ox 95 04/14/21 21:33 Body Mass Index 35.4 Vital signs have been reviewed as appeared to be correct. Blood pressure elevated. Heart rate elevated. Respiration rate normal. Temperature normal. Oxygen saturation normal. Appearance: Alert. Oriented X3. No acute distress. Head: Normal external exam. Normocephalic. Atraumatic. No Blankenship signs noted. No raccoon eyes noted Eyes: PERRLA. EOMI. Conjunctiva and sclera normal. Eyelids normal. ENT: TM's Normal. Pharynx normal. Uvula midline. Moist mucous membranes. No trismus noted. No drooling noted. No muffled voice noted. Neck: Normal inspection. Neck supple. FROM. No adenopathy. Thyroid Normal. No meningeal signs. No neck mass noted. CVS: Normal heart rate and rhythm. Heart sound normal. No murmurs noted. Pulses normal throughout. Respiratory: No respiratory distress. Painless inspiration. Breath sounds normal. No wheezes/rales/rhonchi noted. Chest nontender. No accessory muscle usage noted or decreased air movement noted. Abdomen: Soft, lower abdominal tenderness, no no rebound tenderness, no guarding. Bowel sounds normal in all 4 quadrants. No distention noted. No organomegaly noted. No visible injury noted. Back: No CVA tenderness. Full range of motion noted. Skin: Skin warm and dry. Normal skin color. Normal skin turgor. No megan hes/lesions/lacerations noted. Extremities: No lower extremity edema. Extremities exhibit normal range of motion. Extremities nontender. Neuro: Oriented X 3. Cranial nerve exam: II-XII are grossly intact No motor deficit. No sensory deficit. Reflexes normal. Course Course Course Narrative: Assessment and plan. 45-year-old female came in with abdominal pain, found to have diverticular disea se found to have perforation and abscess formation in the perirectal area, patient meet criteria for SIRS, no severe sepsis or septic shock. 1. IV hydration. 2. Pain control with morphine/Dilaudid. 3. Surgical admission (case discussed with Dr. Gómez). MDM - Abdominal Pain Lab Data Attestation: I reviewed the patient's lab results. Result diagrams: 04/14/21 18:38 04/14/21 18:38 Labs: Lab Results 04/14/21 04/14/21 04/14/21 Range/Units 18:38 18:38 18:42 WBC 19.4 H (4.8-10.8) X10*3/uL RBC 4.63 (4.20-5.50) X10*6/uL Hgb 11.8 L (12.0-16.0) g/dl Hct 35.0 L (37-47) % MCV 75.6 L (80-98) fL MCH 25.5 L (27.0-33.0) pg MCHC 33.7 (31.0-35.0) g/dl RDW 14.6 (11.0-16.0) % Plt Count 324 D (160-400) X10*3/uL MPV 11.2 (9.4-12.3) fL Immature Gran % (Auto) 0.5 H (0.0-0.4) % Neut % (Auto) 76.5 H (45-73) % Lymph % (Auto) 17.8 L (20-40) % Spink % (Auto) 4.0 (2-11) % Eos % (Auto) 0.7 (0-4) % Baso % (Auto) 0.5 (0-2) % Lymph # (Auto) 3.5 (1.2-4.9) X10*3/uL Spink # (Auto) 0.8 (0.1-1.2) X10*3/uL Eos # (Auto) 0.1 (0.0-0.4) X10*3/uL Baso # (Auto) 0.1 (0.0-0.2) X10*3/uL Abs Immat Gran (auto) 0.09 H (0.00-0.03) X10*3/uL Absolute Neuts (auto) 14.8 H (2.0-8.3) X10*3/uL Absolute Nucleated RBC 0.000 (0.0-0.012) X10*3/uL Nucleated RBC % (auto) 0.0 (0.0-0.2) /100WBC Sodium 136 (135-145) mmol/L Potassium 4.1 (3.3-5.1) mmol/L Chloride 101 (96-108) mmol/L Carbon Dioxide 23 (22-29) mmol/L Anion Gap 16 (12-20) BUN 7 L (9-16) mg/dL Creatinine 0.84 (0.5-1.4) mg/dL Estim Creat Clear Calc 98.3 Estimated GFR > 60 POC Glucose 224 H (60-115) mg/dL Random Glucose 228 H (60-115) mg/dL Lactic Acid (0.5-2.0) mmol/L Calcium 9.3 D (8.4-10.2) mg/dL Total Bilirubin 0.6 (0.0-1.0) mg/dL AST 12 (5-31) U/L ALT 19 (0-31) U/L Alkaline Phosphatase 112 (39-117) U/L Total Protein 7.5 (6.5-8.0) g/dL Albumin 3.8 (3.5-5.0) g/dL Urine Color Urine Appearance Urine pH (5.0-8.0) Ur Specific [place] (1.005-1.025) Urine Protein (NEG-TRACE) MG/DL Urine Glucose (UA) (NEG) MG/DL Urine Ketones (NEG) MG/DL Urine Blood (NEG) Urine Nitrite (NEG) Ur Leukocyte Esterase (NEG) Urine RBC (0) /HPF Urine WBC (0-4) /HPF Ur Squamous Epith Cells /LPF Talc Crystals /LPF Urine Bacteria /LPF Urine Mucus /LPF Urine Yeast /HPF 04/14/21 04/14/21 Range/Units 18:46 21:07 WBC (4.8-10.8) X10*3/uL RBC (4.20-5.50) X10*6/uL Hgb (12.0-16.0) g/dl Hct (37-47) % MCV (80-98) fL MCH (27.0-33.0) pg MCHC (31.0-35.0) g/dl RDW (11.0-16.0) % Plt Count (160-400) X10*3/uL MPV (9.4-12.3) fL Immature Gran % (Auto) (0.0-0.4) % Neut % (Auto) (45-73) % Lymph % (Auto) (20-40) % Spink % (Auto) (2-11) % Eos % (Auto) (0-4) % Baso % (Auto) (0-2) % Lymph # (Auto) (1.2-4.9) X10*3/uL Spink # (Auto) (0.1-1.2) X10*3/uL Eos # (Auto) (0.0-0.4) X10*3/uL Baso # (Auto) (0.0-0.2) X10*3/uL Abs Immat Gran (auto) (0.00-0.03) X10*3/uL Absolute Neuts (auto) (2.0-8.3) X10*3/uL Absolute Nucleated RBC (0.0-0.012) X10*3/uL Nucleated RBC % (auto) (0.0-0.2) /100WBC Sodium (135-145) mmol/L Potassium (3.3-5.1) mmol/L Chloride (96-108) mmol/L Carbon Dioxide (22-29) mmol/L Anion Gap (12-20) BUN (9-16) mg/dL Creatinine (0.5-1.4) mg/dL Estim Creat Clear Calc Estimated GFR POC Glucose (60-115) mg/dL Random Glucose (60-115) mg/dL Lactic Acid 2.1 H* (0.5-2.0) mmol/L Calcium (8.4-10.2) mg/dL Total Bilirubin (0.0-1.0) mg/dL AST (5-31) U/L ALT (0-31) U/L Alkaline Phosphatase (39-117) U/L Total Protein (6.5-8.0) g/dL Albumin (3.5-5.0) g/dL Urine Color YELLOW Urine Appearance HAZY Urine pH 6.0 (5.0-8.0) Ur Specific [place] 1.025 (1.005-1.025) Urine Protein NEG (NEG-TRACE) MG/DL Urine Glucose (UA) NEG (NEG) MG/DL Urine Ketones NEG (NEG) MG/DL Urine Blood TRACE (NEG) Urine Nitrite NEG (NEG) Ur Leukocyte Esterase NEG (NEG) Urine RBC 5-9 H (0) /HPF Urine WBC 0 (0-4) /HPF Ur Squamous Epith Cells 3+ /LPF Talc Crystals TRACE /LPF Urine Bacteria 1+ /LPF Urine Mucus 1+ /LPF Urine Yeast 1+ /HPF Imaging Data CT scan - abdomen: Radiologist's impression: Perirectal/sigmoid pelvic abscess. This is the same abscess and has been present in the past. It is about the same size as it was on 04/04/2021 but with a bit more air as opposed to fluid within it. There does appear to be a left-sided para-sacral? approach for drainage available should this be desired. ? Discharge Plan Discharge Clinical Impression: Diverticulitis of both large and small intestine with perforation and abscess Patient Disposition: Admitted As Inpatient [facility] Past Medical History Medical History B12 deficiency Diabetes type 2, uncontrolled Diabetic nephropathy associated with type 2 diabetes mellitus Dyslipidemia Hirsutism Vitamin D deficiency Surgical History History of ankle surgery Hx of section Hx of umbilical hernia repair Family History Family History Father Throat cancer Cirrhosis Mother Diabetes Social History Social History Household Members: Family Housing: House Do you presently have visiting nurse or other home services: No Patient Tobacco Use Status: Current everyday Tobacco user Tobacco use type: Cigarette Cigarette Packs Per Day: 0.5 Cigarettes Per Day: 10.0 Years Smoked: 30 e-Cigarette/Vaping Use: Never Used Advance Directives: Yes Advance Directives on File: Yes Advance Directives Date on File: 04/25/18 service: No Current occupational status: unemployed
[2021-04-14 21:33] VITALS: BP 124/70; PULSE 93; RESP 16; TEMP 37.1; O2SAT 95
[2021-04-14 21:33] LABS: Lactic Acid 2.1 mmol/L (0.5-2.0)
[2021-04-14] MEDS: Piperacillin Sodium/Tazobactam 3.375 GM in 0.9 % Sodium Chloride 50 ML IV (21:42)
[2021-04-14] MEDS: 0.9 % Sodium Chloride 1,000 ML 999 ML IVCONT (21:44)
[2021-04-14 21:46] VITALS: RESP 16
[2021-04-14] MEDS: Morphine Sulfate 2 MG/ML CARTRIDGE IVPUSH (21:46)
[2021-04-14 23:14] LABS: Reflex Lactate? Lactic Acid Added
[2021-04-14 23:19] VITALS: PULSE 96; RESP 20
[2021-04-14 23:20] VITALS: RESP 20
[2021-04-14] MEDS: HYDROmorphone HCl 1 MG/ML SYRINGE IVPUSH (23:20)
[2021-04-14] MEDS: 0.9 % Sodium Chloride 1,000 ML 100 ML IVCONT (23:26)
[2021-04-14 23:36] LABS: INTERNATIONAL NORM RATIO 1.1 (0.9-1.1); Prothrombin Time 12.1 SEC (9.9-13.0)
[2021-04-14 23:39] LABS: ~Lactic Acid-LAB USE ONLY 1.4 mmol/L (0.5-2.0)
[2021-04-15] VITALS (7 sets, daily range): BP systolic 108–135; BP diastolic 66–89; PULSE 71–95; RESP 16–20; TEMP 36.3–37.2; O2SAT 95–100; BMI 35.4
--- NOTE | 2021-04-15 00:28 | PC.NURSE ---
PT was incontinent of stool in bed. PT cleaned with wipes in bed and beth sheet changed. PT is resting quietly in bed at this time.
[2021-04-15] MEDS: Piperacillin Sodium/Tazobactam 3.375 GM in 0.9 % Sodium Chloride 50 ML IV ×4 (06:19→21:13)
--- NOTE | 2021-04-15 07:40 | P.HPGS_ITS ---
History of Present Illness History of Present Illness Date of Service: 04/15/21 Chief complaint: ?pelvic pain Narrative: Mckenzie Quiñonez is a 45 year old female who came to the emergency room last night because of what she describes as pain on the lower back and the pelvic area. She says this started about 36 hours prior to admission. She denies any fever but states that she may have had some chills. She denies any nausea or vomiting. She denies diarrhea or constipation. She was actually admitted to the hospital last March 31 because of a diverticular abscess. Her CAT scan had shown this abscess in the pelvis borderline in size. This was was not drained as per discussion with the interventional radiologist. Furthermore, her white count had improved and she had good symptom resolution. She was discharged on April 06, 2021. She says that she had been doing well since the time of her discharge until recurrence of her symptoms the day prior to admission. She says most of her pain is on the lower back near the sacral area. She also has been seeing a surgeon in [place] because of of ventral hernia. She had been told to lose weight prior to repair because of the extent of the hernia with a high risk of recurrence and perioperative complications. Review of Systems Constitutional: Constitutional: Reports chills and Denies fever(s) Cardiovascular: Cardiovascular: Denies chest pain, Denies dyspnea and Denies dyspnea on exertion Respiratory: Respiratory: Denies cough, Denies dyspnea and Denies dyspnea on exertion Gastrointestinal: Gastrointestinal: Denies hematochezia and Denies change in bowel habits Genitourinary: Genitourinary: Denies hematuria Musculoskeletal: Musculoskeletal: Denies back pain and Denies limited range of motion Neurologic: Denies focal weakness and Denies convulsions Psychiatric: Psychiatric: Reports anxiety, Denies depression and Denies mood swings [facility] Past Medical History Medical History B12 deficiency Diabetes type 2, uncontrolled Diabetic nephropathy associated with type 2 diabetes mellitus Dyslipidemia Hirsutism Vitamin D deficiency Family History Family History Father Throat cancer Cirrhosis Mother Diabetes Surgical History Surgical History History of ankle surgery Hx of section Hx of umbilical hernia repair Social History Social History Household Members: Family Housing: House Do you presently have visiting nurse or other home services: No Patient Tobacco Use Status: Current everyday Tobacco user Tobacco use type: Cigarette Cigarette Packs Per Day: 0.5 Cigarettes Per Day: 10.0 Years Smoked: 30 e-Cigarette/Vaping Use: Never Used Advance Directives: Yes Advance Directives on File: Yes Advance Directives Date on File: 04/25/18 service: No Current occupational status: unemployed Meds Allergies Allergy/AdvReac Type Severity Reaction Status Date / Time latex [LATEX] Allergy Mild RASH Verified 04/01/21 10:38 Active Medications: Current Medications Sodium Chloride (Ns) 1,000 mls @ 100 mls/hr IVCONT .Q10H [facility] Last Admin: 04/14/21 23:26 Dose: 100 mls/hr Documented by: Piperacillin Sod/Tazobactam (Sod 3.375 gm/ Sodium Chloride) 50 mls @ 100 mls/hr IV Q6H [facility] Last Admin: 04/15/21 06:19 Dose: 100 mls/hr Documented by: Morphine Sulfate (Morphine Sulfate 4 Mg/Ml Cartridge) 3 mg IVPUSH Q3H PRN; Protocol PRN Reason: Pain, Severe (Pain Scale 7-10) Ondansetron HCl (Ondansetron Hcl 4 Mg/2 Ml Vial) 4 mg IVPUSH Q8H PRN PRN Reason: Nausea and Vomiting Sodium Chloride (0.9 % Sodium Chloride Flush 3 Ml Syringe) 3 ml IVFLUSH QSHIFT [facility] Last Admin: 04/15/21 00:07 Dose: Not Given Documented by: Home Medications Medication Instructions Recorded Confirmed Last Taken Type ascorbic acid (vitamin C) 500 mg 500 mg PO DAILY 03/31/21 03/31/21 Unknown History tablet (Vitamin C) biotin 1,000 mcg chewable tablet 1,000 mcg PO DAILY 03/31/21 03/31/21 Unknown History cyanocobalamin (vitamin B-12) 1,000 mcg PO DAILY 03/31/21 03/31/21 Unknown History 1,000 mcg tablet fluticasone 250 mcg-salmeterol 50 1 puff INHALATION Q12H 03/31/21 04/15/21 Unknown History mcg/dose blistr powdr for inhalation (Advair Diskus) dulaglutide 0.75 mg/0.5 mL 0.75 mg SUBCUT QWEEK 04/15/21 04/15/21 Unknown History subcutaneous pen injector (Trulicity) fexofenadine 180 mg tablet 1 tab PO DAILY 04/15/21 04/15/21 Unknown History lorazepam 0.5 mg tablet 1 - 2 tab PO TID 04/15/21 Unknown History montelukast 10 mg tablet 1 tab PO BEDTIME 04/15/21 04/15/21 Unknown History Physical Exam Vital Signs: Vital Signs: Last Vital Signs Temp 98.8 F 04/14/21 21:33 Pulse 96 04/14/21 23:19 Resp 18 04/15/21 00:27 BP 135/88 04/15/21 00:27 Pulse Ox 95 04/14/21 21:33 Body Mass Index 35.4 Const: Other: Morbidly obese, very anxious General: no acute distress Or ientation/consciousness: patient oriented x3 Neck: Neck: Yes no lymphadenopathy Resp: Auscultation: clear to auscultation bilaterally Cardio: Rhythm: regular rhythm GI: Other: Some tenderness the lower abdomen no guarding or rebound noted, vague hernia abdominal wall; exam a little difficult in view of her morbid obesity; no perianal/perirectal induration or cellulitis or redness Palpation (GI): Soft to palpation, nontender and no guarding Neuro: General: patient oriented x3 Results Results Labs: Short CBC 04/14/21 Range/Units 18:38 WBC 19.4 H (4.8-10.8) X10*3/uL Hgb 11.8 L (12.0-16.0) g/dl Hct 35.0 L (37-47) % Plt Count 324 D (160-400) X10*3/uL BMP 04/14/21 18:38 Sodium 136 Potassium 4.1 Chloride 101 Carbon Dioxide 23 BUN 7 L Creatinine 0.84 Calcium 9.3 D Liver Function 04/14/21 Range/Units 18:38 Total Bilirubin 0.6 (0.0-1.0) mg/dL AST 12 (5-31) U/L ALT 19 (0-31) U/L Alkaline Phosphatase 112 (39-117) U/L Albumin 3.8 (3.5-5.0) g/dL Urine 04/14/21 Range/Units 18:46 Urine Color YELLOW Urine Appearance HAZY Urine pH 6.0 (5.0-8.0) Ur Specific [place] 1.025 (1.005-1.025) Urine Protein NEG (NEG-TRACE) MG/DL Urine Glucose (UA) NEG (NEG) MG/DL Abdomen CT scan report/results: report reviewed and image reviewed CT scan - pelvis: report reviewed and image reviewed Assessment and Plan (1) Diverticulitis of large intestine with abscess: Status: Acute Her CAT scan shows a low pelvic abscess on the left side mostly, likely from diverticulitis. This appears to be better defined compared to her previous admission,with note of fluid and gas and therefore should be amenable to CT drainage. I have therefore ordered for her to undergo CT drainage with IR which is likely to be done by a presacral approach. I explained to the patient the technique of this procedure and reviewed the risks, benefits, and alternatives. In the meantime, she has been restarted on IV Zosyn. She is NPO temporarily. She otherwise has a benign abdominal exam. She is also hemodynamically stable. Quality Stroke Does the patient have a stroke diagnosis?: No VTE Prior VTE?: No VTE Risk Level:: Medical - moderate - high VTE Device Contraindication: N/A - Device Ordered VTE Drug Contraindication: N/A - Med Ordered Procedures Date of Service Date of Service: 04/15/21
[2021-04-15] MEDS: 0.9 % Sodium Chloride Flush 3 ML SYRINGE IVFLUSH (08:18)
[2021-04-15] MEDS: Morphine Sulfate 4 MG/ML CARTRIDGE 3 MG IVPUSH (08:18)
--- NOTE | 2021-04-15 08:35 | PHA.MEDREC ---
Pharmacy Consult ? Medication Reconciliation Pharmacy has completed the medication reconciliation. Reports she is has been taking the montalukast recently, but it has a recent filled history. Rosina Toussaint, NaniD
[2021-04-15] MEDS: 0.9 % Sodium Chloride 1,000 ML 100 ML IVCONT ×2 (09:52→23:16)
--- NOTE | 2021-04-15 10:27 | HO.PM.IMCN ---
History of Present Illness Data of Consult Service Date: 04/15/21 Requesting physician: Kaushik Gómez Primary Care Provider: Diogo Wright MD HPI Reason for consult: Medical management for HTN and diabetes 45 yo F with a PMH of DM, HTN, self reported COPD/Emphysema/Pulmonary fibrosis, chronic tobacco user, morbid obesity who is presently admitted to surgical service due t acute, complicated diverticulitis with abscesss. She was admitetd earlier from 03/31 to 04/09 with diverticulitis with microperforation and was managed with IV antibiotics and improved but only to return now with increasing abdominal pain and now CT shows perirectal and sigmoid abscess and is complaining of excrucitiaging pain. Her WBC is 19K, lactic acid is 2.1 and meets sepsis criteria. She has bee initiated on Zosyn. Chronic medical issues seem stable at the moment. Review of Systems Review of Systems: Gen: no fever Resp: no sob, no cough CV: no chest, no EVANS, no leg edema GI: No n/v, +abdominal pain Neuro: No confusion Yes all other systems are reviewed and are negative [facility] Medical History B12 deficiency Diabetes type 2, uncontrolled Diabetic nephropathy associated with type 2 diabetes mellitus Dyslipidemia Hirsutism Vitamin D deficiency Family History Father Throat cancer Cirrhosis Mother Diabetes Pertinent family history: .. Surgical History History of ankle surgery Hx of section Hx of umbilical hernia repair Social History Household Members: None Housing: Apartment Do you presently have visiting nurse or other home services: No Alcohol intake: never Patient Tobacco Use Status: Current everyday Tobacco user Tobacco use type: Cigarette Cigarette Packs Per Day: 0.5 Cigarettes Per Day: 10.0 Years Smoked: 30 e-Cigarette/Vaping Use: Never Used Second Hand Smoke Exposure: Yes Substance Use Type: Marijuana Advance Directives Date on File: 04/25/18 service: No Current occupational status: unemployed Meds Allergies Allergy/AdvReac Type Severity Reaction Status Date / Time latex [LATEX] Allergy Mild RASH Verified 04/01/21 10:38 Active Medications: Current Medications Hydromorphone HCl (Hydromorphone Hcl 0.5 Mg/0.5 Ml Syringe) 0.5 mg IVPUSH Q3H PRN; Protocol PRN Reason: Pain, Moderate (Pain Scale 4-6 Sodium Chloride (Ns) 1,000 mls @ 100 mls/hr IVCONT .Q10H [facility] Last Admin: 04/15/21 09:52 Dose: 100 mls/hr Documented by: Piperacillin Sod/Tazobactam (Sod 3.375 gm/ Sodium Chloride) 50 mls @ 100 mls/hr IV Q6H [facility] Last Admin: 04/15/21 09:53 Dose: 100 mls/hr Documented by: Ondansetron HCl (Ondansetron Hcl 4 Mg/2 Ml Vial) 4 mg IVPUSH Q8H PRN PRN Reason: Nausea and Vomiting Sodium Chloride (0.9 % Sodium Chloride Flush 3 Ml Syringe) 3 ml IVFLUSH QSHIFT [facility] Last Admin: 04/15/21 08:18 Dose: 3 ml Documented by: Home Medications Medication Instructions Recorded Confirmed Last Taken Type ascorbic acid (vitamin C) 500 mg 500 mg PO DAILY 03/31/21 04/15/21 04/14/21 History tablet (Vitamin C) biotin 1,000 mcg chewable tablet 1,000 mcg PO DAILY 03/31/21 04/15/21 04/14/21 History cyanocobalamin (vitamin B-12) 1,000 mcg PO DAILY 03/31/21 04/15/21 04/14/21 History 1,000 mcg tablet fluticasone 250 mcg-salmeterol 50 1 puff INHALATION Q12H 03/31/21 04/15/21 04/14/21 History mcg/dose blistr powdr for inhalation (Advair Diskus) cholecalciferol (vitamin D3) 25 25 mcg PO DAILY 04/15/21 04/15/21 04/14/21 History mcg (1,000 unit) tablet (Vitamin D3) ibuprofen 200 mg tablet 200 mg PO Q6H PRN 04/15/21 04/15/21 04/14/21 History montelukast 10 mg tablet 1 tab PO BEDTIME 04/15/21 04/15/21 04/14/21 History multivitamin 1 tab PO DAILY 04/15/21 04/15/21 Unknown History Physical Exam Vital Signs and Narrative: Vital Signs: Last Vital Signs Temp 99.0 F 04/15/21 08:01 Pulse 95 04/15/21 08:01 Resp 20 04/15/21 08:01 BP 133/89 04/15/21 08:01 Pulse Ox 98 04/15/21 08:01 Body Mass Index 35.4 Constitutional Awake and Alert, No apparent distress HEENT, PERRLA, anicteri Neck Supple, No lymphadenopathy Cardiovascular RRR, No M/R/G, S1 S2, No S3 S4, No pedal edema Respiratory Lungs clear, No respiratory distress Gastrointestinal diffuse lower abdominal tenderness Skin No rash H/onc no adenopathy Neurological Alert & oriented x3 Psychological Appropriate affect Results Labs CBC and Chem 7: 04/14/21 18:38 04/14/21 18:38 Imaging Radiologist's Impressions: Impressions Abdomen/Pelvis CT 04/14/21 20:34 IMPRESSION: Perirectal/sigmoid pelvic abscess. This is the same abscess and has been present in the past. It is about the same size as it was on 04/04/2021 but with a bit more air as opposed to fluid within it. There does appear to be a left-sided para-sacral approach for drainage available should this be desired. This critical result was discussed with Dr. Kim at 10:10 PM on the day the exam and it was ascertained that the content and urgency of the report was understood at the time of direct communication. Assessment and Plan (1) Diverticulitis of both large and small intestine with perforation and abscess: Qualifiers: Diverticulitis bleeding: without bleeding Qualified Code(s): K57.40 - Diverticulitis of both small and large intestine with perforation and abscess without bleeding Status: Acute (2) Hypertension: Status: Acute (3) Diabetes type 2, uncontrolled: Status: Acute (4) Sepsis: Status: Acute 45 yo F with a PMH of HTN, DM, COPD readmitted for acute diverticulitis complicated by sigmoid and perirectal abscless and is septic # Sepsis d/t acute diverticulitis, perirectal and sigmoid abscess -Continue Zosyn, I suggest adding Flagyl -surgery addressing abscess #Acute diverticulitis--management as above. #DM--has not been on meds for months, last A1C 7.8. -SSI insulin, and Metformin at discharge. #Microcytic Anemia H/H stable Follow CBC #HTN--Not on meds, BP normal, monitor s - particularly since she has not been compliant with them. #COPD not in exacerabation Bronchodilators PRN #Morbid obesity.? BMI 54.9, weight loss advise as may affect chronic issues such as diabetes and HTn DVT prophylaxis-mechanical devices or as deemed apropriate by surgery
[2021-04-15] MEDS: HYDROmorphone HCl 0.5 MG/0.5 ML SYRINGE IVPUSH ×4 (10:30→21:12)
[2021-04-15 11:28] LABS: Glucose, Whole Blood 155 mg/dL (60-115)
[2021-04-15 12:05] LABS: IDNOW Serial# 9DD0AD1C
[2021-04-15 12:07] LABS: COVID-19 Test Negative (Negative)
[2021-04-15] MEDS: metroNIDAZOLE/NS 500 MG/100 ML PIGGYBACK 100 MG IV ×2 (12:12→23:12)
--- NOTE | 2021-04-15 14:16 | PM.EVENT ---
Event Note Date of Service: 04/15/21 Event Note: case discussed with radiologist IR drain scheduled this afternoon IR is currenty very busy - they may not be able to do it today explained this to pt if IR drain to be done tomorrow, ok to have clear liquids continue IV abx doing well
[2021-04-15] MEDS: ondansetron HCL 4 MG/2 ML VIAL IVPUSH (16:48)
[2021-04-15 17:07] LABS: Glucose, Whole Blood 142 mg/dL (60-115)
[2021-04-15 20:23] LABS: Glucose, Whole Blood 166 mg/dL (60-115)
[2021-04-15] MEDS: Insulin Lispro 100 UNIT/ML 3 ML VIAL SUBCUT (21:13)
[2021-04-16] VITALS (7 sets, daily range): BP systolic 98–133; BP diastolic 53–85; PULSE 78–95; RESP 16–18; TEMP 36.3–36.8; O2SAT 94–98
[2021-04-16] MEDS: HYDROmorphone HCl 0.5 MG/0.5 ML SYRINGE IVPUSH ×3 (00:01→21:33)
[2021-04-16] MEDS: Piperacillin Sodium/Tazobactam 3.375 GM in 0.9 % Sodium Chloride 50 ML IV ×4 (03:49→21:32)
[2021-04-16 06:23] LABS: Hemoglobin 10.5 g/dl (12.0-16.0); Mean Corpuscular HGB Conc 32.8 g/dl (31.0-35.0); Mean Corpuscular Hemoglobin 25.1 pg (27.0-33.0); Mean Corpuscular Volume 76.6 fL (80-98); Mean Platelet Volume 11.4 fL (9.4-12.3); Platelet Count 287 X10*3/uL (160-400); Red Blood Count 4.18 X10*6/uL (4.20-5.50); Red Cell Distribution Width 14.6 % (11.0-16.0); White Blood Count 13.4 X10*3/uL (4.8-10.8)
[2021-04-16] MEDS: 0.9 % Sodium Chloride Flush 3 ML SYRINGE IVFLUSH ×2 (08:33→21:33)
--- NOTE | 2021-04-16 09:08 | HO.PM.IMPN ---
Subjective Subjective Date of Service: 04/17/21 Interval History: seen in f/u complicated diverticulitis, perirectal absceess, has persistent pain in rectal area Review of Systems Gen: no fever Resp: no sob, no cough CV: no chest, no EVANS, no leg edema GI: No n/v, no abd pain Neuro: No confusion Physical Exam Vital Signs: Vital Signs: Last Vital Signs Temp 97.4 F 04/16/21 08:00 Pulse 89 04/16/21 08:00 Resp 18 04/16/21 08:00 BP 127/85 04/16/21 08:00 Pulse Ox 97 04/16/21 08:00 Body Mass Index 35.4 General: AO X 3, no acute distress Resp: CTA bilateral CVS: S1,S2,RRR GI: +BS, some abdominla tenderness, no distention Skin: No rash Neuro: motor grossly intact Psych: appropriate affect Objective Data Active Medications Hydromorphone HCl (Hydromorphone Hcl 0.5 Mg/0.5 Ml Syringe) 0.5 mg IVPUSH Q3H PRN; Protocol PRN Reason: Pain, Moderate (Pain Scale 4-6 Last Admin: 04/16/21 08:42 Dose: 0.5 mg Documented by: JESSIKA Sodium Chloride (Ns) 1,000 mls @ 100 mls/hr IVCONT .Q10H [facility]PLACED BY [facility] Last Admin: 04/16/21 05:28 Dose: Not Given Documented by: CHRISTIANO Non-Admin Reason: IV Running Piperacillin Sod/Tazobactam (Sod 3.375 gm/ Sodium Chloride) 50 mls @ 100 mls/hr IV Q6H [facility]PLACED [facility] Last Admin: 04/16/21 08:33 Dose: 100 mls/hr Documented by: JESSIKA Metronidazole (Flagyl) 500 mg in 100 mls @ 100 mls/hr IV Q12H [facility]PLACED [facility] Last Infusion: 04/16/21 00:49 Dose: 0 mls/hr Documented by: CHRISTIANO Insulin Human Lispro (Insulin Lispro 100 Unit/Ml 3 Ml Vial) 0 unit SUBCUT QIDACHS REPLACED BY [facility]; Protocol Last Admin: 04/16/21 08:29 Dose: Not Given Documented by: JESSIKA Non-Admin Reason: NPO Ondansetron HCl (Ondansetron Hcl 4 Mg/2 Ml Vial) 4 mg IVPUSH Q8H PRN PRN Reason: Nausea and Vomiting Last Admin: 04/15/21 16:48 Dose: 4 mg Documented by: BHARAT Sodium Chloride (0.9 % Sodium Chloride Flush 3 Ml Syringe) [facility] Last Admin: 04/16/21 08:33 Dose: 3 ml Documented by: JESSIKA Labs CBC & Chem 7: 04/16/21 05:56 04/14/21 18:38 Labs: Laboratory Results - last 24 hr 04/15/21 04/15/21 04/15/21 11:24 11:30 16:54 MCV MCH MCHC RDW Plt Count MPV Absolute Nucleated RBC Nucleated RBC % (auto) POC Glucose 155 H 142 H COVID-19 ([facility]) Negative COVID-19 Clin Com See Note 04/15/21 04/16/21 20:19 05:56 MCV 76.6 L MCH 25.1 L MCHC 32.8 RDW 14.6 Plt Count 287 MPV 11.4 Absolute Nucleated RBC 0.000 Nucleated RBC % (auto) 0.0 POC Glucose 166 H COVID-19 ([facility]) COVID-19 Clin Com Microbiology Microbiology Results: Microbiology 04/14/21 21:07 Blood Culture - Preliminary Blood - Venous No growth after 24 hours. 04/14/21 20:56 Blood Culture - Preliminary Blood - Venous No growth after 24 hours. Assessment and Plan (1) Sepsis: Status: Acute (2) Diverticulitis of both large and small intestine with perforation and abscess: Status: Acute (3) Diabetes type 2, uncontrolled: Status: Acute Assessment and Plan: 45 yo F with a PMH of HTN, DM, COPD readmitted for acute diverticulitis complicated by sigmoid and perirectal abscless and is septic # Sepsis d/t acute diverticulitis, perirectal and sigmoid abscess, s/p Left perirectal area abscess drainage today 04/16 -Culture of aspirate pending -Continue Zosyn and Flagyl since 04/15 -Will need repeat imaging to reassess abscess #Acute diverticulitis--Flagyl and Zosyn as above #DM--has not been on meds for months, last A1C 7.8. -SSI insulin, and Metformin at discharge. #Microcytic Anemia H/H stable Follow CBC #HTN--Not on meds, BP normal, monitor #COPD not in exacerabation Bronchodilators PRN Quality Stroke Does the patient have a stroke diagnosis?: No VTE Prior VTE?: No VTE Risk Level:: Medical - moderate - high VTE Device Contraindication: N/A - Device Ordered VTE Drug Contraindication: N/A - Med Ordered
--- NOTE | 2021-04-16 09:26 | PM.PNGS ---
Subjective Subjective Date of Service: 04/16/21 <Mitra Cardenas PA-C - Last Filed: 04/16/21 09:32> 04/16/21 <Kaushik Gómez MD - Last Filed: 04/16/21 11:11> Interval history: Awaiting CT guided drainage this morning. Feels a little better, more pain in her lower back then abdomen. <Mitra Cardenas PA-C - Last Filed: 04/16/21 09:32> Physical Exam Vital Signs: Vital Signs: Last Vital Signs Temp 97.4 F 04/16/21 08:00 Pulse 89 04/16/21 08:00 Resp 18 04/16/21 08:00 BP 127/85 04/16/21 08:00 Pulse Ox 97 04/16/21 08:00 Body Mass Index 35.4 <YOMAIRA Peterson Last Filed: 04/16/21 09:32> Const: General: comfortable, no acute distress and alert <Mitra Cardenas PA-C - Last Filed: 04/16/21 09:32> Orientation/consciousness: patient oriented x3 <Mitra Cardenas PA-C - Last Filed: 04/16/21 09:32> Eyes: Sclerae: sclerae normal <YOMAIRA Peterson Last Filed: 04/16/21 09:32> Resp: Effort & Inspection: normal respiratory effort <Mitra Cardenas PA-C - Last Filed: 04/16/21 09:32> GI: Inspection: No distended and Yes obesity <Mitra Cardenas PA-C - Last Filed: 04/16/21 09:32> Palpation (GI): Soft to palpation, Tenderness to palpation present (GI) (suprapubic, left flank into left lower back), no guarding and not rigid <YOMAIRA Peterson Last Filed: 04/16/21 09:32> Percussion: Yes normal to percussion <YOMAIRA Peterson Last Filed: 04/16/21 09:32> Skin: General skin exam: no rashes or lesions noted <YOMAIRA Peterson Last Filed: 04/16/21 09:32> Neuro: General: patient oriented x3 <Mitra Cardenas PA-C - Last Filed: 04/16/21 09:32> Extrem: General: Yes no clubbing, cyanosis or edema <Mitra Cardenas PA-C - Last Filed: 04/16/21 09:32> Procedures Date of Service Date of Service: 04/16/21 <Mitra Cardenas PA-C - Last Filed: 04/16/21 09:32> Progress Note: A&P Assessment and plan (1) Diverticulitis of both large and small intestine with perforation and abscess: Status: Acute <Mitra Cardenas PA-C - Last Filed: 04/16/21 09:32> Assessment and Plan: Feels better although still complains of low back pain No events reported No fever Abdomen remained soft Awaiting IR today for CT drainage of pelvic abscess Continue antibiotics Seen and examined - agree with BRUNILDA Cardenas <Kaushik Gómez MD - Last Filed: 04/16/21 11:11> (2) Sepsis: Status: Acute <Mitra Cardenas PA-C - Last Filed: 04/16/21 09:32> (3) Morbid obesity with BMI of 50.0-59.9, adult: Status: Acute <Mitra Cardenas PA-C - Last Filed: 04/16/21 09:32> (4) Diabetes type 2, uncontrolled: Status: Acute <Mitra Cardenas PA-C - Last Filed: 04/16/21 09:32> Assessment and Plan: 45 year old female admitted with acute sigmoid diverticulitis with abscess. CT scan shows a low pelvic abscess on the left side most likely from diverticulitis, now appears to be better defined compared to her previous admission. Feeling a little better this morning. Her abdominal exam remains relatively benign. WBC downtrending. Awaiting CT drainage with IR today. Cont NPO, IVF, IV flagyl/zosyn.? Hospitalists following for medical comorbidities. <Mitra Cardenas PA-C - Last Filed: 04/16/21 09:32> Fall Risk Details Current Medications: Current Medications Hydromorphone HCl (Hydromorphone Hcl 0.5 Mg/0.5 Ml Syringe) 0.5 mg IVPUSH Q3H PRN; Protocol PRN Reason: Pain, Moderate (Pain Scale 4-6 Last Admin: 04/16/21 08:42 Dose: 0.5 mg Documented by: Sodium Chloride (Ns) 1,000 mls @ 100 mls/hr IVCONT .Q10H [facility] Last Admin: 04/16/21 05:28 Dose: Not Given Documented by: Piperacillin Sod/Tazobactam (Sod 3.375 gm/ Sodium Chloride) 50 mls @ 100 mls/hr IV Q6H [facility] Last Admin: 04/16/21 08:33 Dose: 100 mls/hr Documented by: Metronidazole (Flagyl) 500 mg in 100 mls @ 100 mls/hr IV Q12H [facility] Last Infusion: 04/16/21 00:49 Dose: Infused Documented by: Insulin Human Lispro (Insulin Lispro 100 Unit/Ml 3 Ml Vial) 0 unit SUBCUT QIDACHS [facility]; Protocol Last Admin: 04/16/21 08:29 Dose: Not Given Documented by: Ondansetron HCl (Ondansetron Hcl 4 Mg/2 Ml Vial) 4 mg IVPUSH Q8H PRN PRN Reason: Nausea and Vomiting Last Admin: 04/15/21 16:48 Dose: 4 mg Documented by: Sodium Chloride (0.9 % Sodium Chloride Flush 3 Ml Syringe) 3 ml IVFLUSH QSHIFT [facility] Last Admin: 04/16/21 08:33 Dose: 3 ml Documented by: <Mitra Cardenas PA-C - Last Filed: 04/16/21 09:32> Time Spent With Patient Time: Total time spent is greater than 50% in coordination of care (as documented) at patient's floor/unit and/or counseling patient: <Mitra Cardenas PA-C - Last Filed: 04/16/21 09:32> Time with patient: 15 - 24 minutes <Mitra Cardenas PA-C - Last Filed: 04/16/21 09:32> Quality Stroke Does the patient have a stroke diagnosis?: No <Mitra Cardenas PA-C - Last Filed: 04/16/21 09:32> VTE Prior VTE?: No <Mitra Cardenas PA-C - Last Filed: 04/16/21 09:32> VTE Risk Level:: Medical - moderate - high <YOMAIRA Peterson Last Filed: 04/16/21 09:32> VTE Device Contraindication: N/A - Device Ordered <Mitra Cardenas PA-C - Last Filed: 04/16/21 09:32> VTE Drug Contraindication: N/A - Med Ordered <Mitra Cardenas PA-C - Last Filed: 04/16/21 09:32>
[2021-04-16] MEDS: metroNIDAZOLE/NS 500 MG/100 ML PIGGYBACK 100 MG IV ×2 (10:44→23:56)
[2021-04-16 12:10] LABS: Glucose, Whole Blood 127 mg/dL (60-115)
[2021-04-16 12:12] LABS: UPreg QC Valid YES; Urine Pregnancy NEGATIVE (NEGATIVE)
--- NOTE | 2021-04-16 14:37 | HO.RADPN ---
RADIOLOGY Narrative Narrative: Left perirectal abscess aspirated using 22g needle. 15 ml purulent fluid removed. specimen sent for GS and culture.
--- NOTE | 2021-04-16 15:22 | MHC.CM.PN ---
CM MET WITH PT WHO REPORTS SHE LIVES ALONE PT IS INDEPENDENT WITH ALL CARE PT HAS NO SERVICES, USES A NEBULIZER ONLY FOR DME PT DOES NOT HAVE A HCP, DECLINES TO COMPLETE ONE TODAY PT CONFIRMS HER PCP IS MERVIN CARO, BUT STATES SHE HAS NOT YET SEEN HIM CURRENT DC PLAN IS HOME WITH NO SERVICES PT MAY NEED ASSISTANCE WITH TRANSPORTATION
--- NOTE | 2021-04-16 15:42 | PC.NURSE ---
1600 sm gauze dsg on left lower back D@I. ambulating in room. Min pain. mary beth liquids
--- NOTE | 2021-04-16 16:15 | PM.EVENT ---
Event Note Date of Service: 04/16/21 Event Note: Underwent CT guided aspiration of abscess earlier today Tolerated the procedure well Remained stable Abdomen benign and soft Continue IV antibiotics Clear liquids, slowly advance tomorrow Plan to keep for IV antibiotics over the weekend
[2021-04-16 16:36] LABS: Glucose, Whole Blood 185 mg/dL (60-115)
[2021-04-16] MEDS: Insulin Lispro 100 UNIT/ML 3 ML VIAL SUBCUT (17:24)
[2021-04-16 20:12] LABS: Glucose, Whole Blood 125 mg/dL (60-115)
[2021-04-16] MEDS: Morphine Sulfate 4 MG/ML CARTRIDGE IVPUSH (23:56)
[2021-04-17] VITALS: BP 99/64; PULSE 78; RESP 18; TEMP 35.8; O2SAT 97
[2021-04-17] MEDS: 0.9 % Sodium Chloride 1,000 ML 100 ML IVCONT ×2 (00:18→11:43)
[2021-04-17] MEDS: HYDROmorphone HCl 0.5 MG/0.5 ML SYRINGE IVPUSH ×7 (02:07→22:05)
[2021-04-17] MEDS: Piperacillin Sodium/Tazobactam 3.375 GM in 0.9 % Sodium Chloride 50 ML IV ×4 (02:07→21:23)
[2021-04-17 03:25] VITALS: BP 104/65; PULSE 71; RESP 18; TEMP 36.6; O2SAT 95
[2021-04-17 07:22] VITALS: BP 117/75; PULSE 76; RESP 18; TEMP 36.9; O2SAT 98
[2021-04-17 08:11] LABS: Glucose, Whole Blood 149 mg/dL (60-115)
--- NOTE | 2021-04-17 08:39 | P.PNIM_ITS ---
Subjective Subjective Date of Service: 04/17/21 Interval History: f/u perirectal abscess, diverticulitis, has IR perirectal abscess drainage yesterday. She still has some pain in the rectal area albeit better today. Review of Systems No fever Perirectal pain No abdominal pain Physical Exam Vital Signs: Vital Signs: Last Vital Signs Temp 98.4 F 04/17/21 07:22 Pulse 76 04/17/21 07:22 Resp 18 04/17/21 07:22 BP 117/75 04/17/21 07:22 Pulse Ox 98 04/17/21 07:22 Body Mass Index 35.4 General: AO X 3, no acute distress Resp: CTA bilateral CVS: S1,S2,RRR GI: +BS, NT, no distention Skin: No rash Neuro: motor grossly intact Psych: appropriate affect Objective Data Active Medications Hydromorphone HCl (Hydromorphone Hcl 0.5 Mg/0.5 Ml Syringe) 0.5 mg IVPUSH Q3H PRN; Protocol PRN Reason: Pain, Moderate (Pain Scale 4-6 Last Admin: 04/17/21 06:22 Dose: 0.5 mg Documented by: HEATHER Sodium Chloride (Ns) 1,000 mls @ 100 mls/hr IVCONT .Q10H [facility] Last Admin: 04/17/21 00:18 Dose: 100 mls/hr Documented by: HEATHER Piperacillin Sod/Tazobactam (Sod 3.375 gm/ Sodium Chloride) 50 mls @ 100 mls/hr IV Q6H [facility] Last Infusion: 04/17/21 03:11 Dose: 0 mls/hr Documented by: HEATHER Metronidazole (Flagyl) 500 mg in 100 mls @ 100 mls/hr IV Q12H [facility] Last Infusion: 04/17/21 01:00 Dose: 0 mls/hr Documented by: HEATHER Insulin Human Lispro (Insulin Lispro 100 Unit/Ml 3 Ml Vial) 0 unit SUBCUT QIDACHS [facility]; Protocol Last Admin: 04/17/21 08:09 Dose: Not Given Documented by: ALISHA Non-Admin Reason: No Insulin Coverage Ondansetron HCl (Ondansetron Hcl 4 Mg/2 Ml Vial) 4 mg IVPUSH Q8H PRN PRN Reason: Nausea and Vomiting Last Admin: 04/15/21 16:48 Dose: 4 mg Documented by: BHARAT Sodium Chloride (0.9 % Sodium Chloride Flush 3 Ml Syringe) 3 ml IVFLUSH [facility] Last Admin: 04/16/21 21:33 Dose: 3 ml Documented by: HEATHER Labs CBC & Chem 7: 04/16/21 05:56 04/14/21 18:38 Labs: Laboratory Results - last 24 hr 04/16/21 04/16/21 04/16/21 11:56 12:07 16:32 POC Glucose 127 H 185 H Urine Test NEGATIVE 04/16/21 04/17/21 20:05 07:52 POC Glucose 125 H 149 H Urine Test Microbiology Microbiology Results: Microbiology 04/14/21 21:07 Blood Culture - Preliminary Blood - Venous No growth after 48 hours. 04/14/21 20:56 Blood Culture - Preliminary Blood - Venous No growth after 48 hours. 04/16/21 13:15 Gram Stain - Final Abscess Ischiorectal Assessment and Plan (1) Sepsis: Status: Acute (2) Diverticulitis of both large and small intestine with perforation and abscess: Status: Acute (3) Diabetes type 2, uncontrolled: Status: Acute Assessment and Plan: 45 yo F with a PMH of HTN, DM, COPD readmitted for acute diverticulitis complicated by sigmoid and perirectal abscless and is septic # Sepsis d/t acute diverticulitis, perirectal and sigmoid abscess, s/p Left jesus rectal area abscess drainage on 04/16 -Culture of aspirate pending -Continue Zosyn and Flagyl since 04/15 -Will need repeat imaging to reassess abscess at later time #Acute diverticulitis--Flagyl and Zosyn as above #DM--has not been on meds for months, last A1C 7.8. -SSI insulin, and Metformin at discharge. #Microcytic Anemia H/H stable Follow CBC #HTN--Not on meds, BP normal, monitor #COPD not in exacerabation Bronchodilators PRN DVT prophylaxis--if not ambulating enough should be on lovenxo and or heparin Quality Stroke Does the patient have a stroke diagnosis?: No VTE Prior VTE?: No VTE Risk Level:: Medical - moderate - high VTE Device Contraindication: N/A - Device Ordered VTE Drug Contraindication: N/A - Med Ordered
[2021-04-17 09:19] LABS: Hematocrit 34.6 % (37-47); Hemoglobin 11.2 g/dl (12.0-16.0); Mean Corpuscular HGB Conc 32.4 g/dl (31.0-35.0); Mean Corpuscular Hemoglobin 24.7 pg (27.0-33.0); Mean Corpuscular Volume 76.4 fL (80-98); Mean Platelet Volume 11.5 fL (9.4-12.3); Platelet Count 346 X10*3/uL (160-400); Red Blood Count 4.53 X10*6/uL (4.20-5.50); Red Cell Distribution Width 14.6 % (11.0-16.0); White Blood Count 11.1 X10*3/uL (4.8-10.8)
--- NOTE | 2021-04-17 11:32 | P.PNGS_ITS ---
Subjective Subjective Date of Service: 04/17/21 Interval history: pt was feeing better yesterday after aspiration of purulent pelvic fluid but now feels like pain is getting worse again and that the fluid is building back up. sharp pain in the sacral area where needle insertion was and some lower plevic pressure. no nausea or vomiting, hungry Physical Exam Vital Signs: Vital Signs: Last Vital Signs Temp 98.4 F 04/17/21 07:22 Pulse 76 04/17/21 07:22 Resp 18 04/17/21 07:22 BP 117/75 04/17/21 07:22 Pulse Ox 98 04/17/21 07:22 Body Mass Index 35.4 Const: General: cooperative, healthy appearing, no acute distress and Physically active Orientation/consciousness: patient oriented x3 GI: Other: abdo soft nontender nondistended active bowel sounds. the left sacral area has bandage where aspiration of pelvic collection was done, no drain left in place Neuro: General: patient oriented x3 Procedures Date of Service Date of Service: 04/17/21 Progress Note: A&P Assessment and plan (1) Diverticulitis of large intestine with abscess: Status: Acute Assessment and Plan: 45 year old female with recurring sigmoid diverticulitis with pelvic abscess drained interventionaly yesterday with removal of 15 cc of pus, sent for cx, no drain left in place. pt originally feeling much better but today with some pain and feeling like fluid may be recurring - wbc coming down, afebrile on iv antibx plan to cont with iv antibx, fu on cx advance diet ambulate follow abdo exam if wbc increases or exam worsens may need to repeat imaging. Fall Risk Details Current Medications: Current Medications Hydromorphone HCl (Hydromorphone Hcl 0.5 Mg/0.5 Ml Syringe) 0.5 mg IVPUSH Q3H PRN; Protocol PRN Reason: Pain, Moderate (Pain Scale 4-6 Last Admin: 04/17/21 09:32 Dose: 0.5 mg Documented by: Sodium Chloride (Ns) 1,000 mls @ 100 mls/hr IVCONT .Q10H [facility] Last Admin: 04/17/21 00:18 Dose: 100 mls/hr Documented by: Piperacillin Sod/Tazobactam (Sod 3.375 gm/ Sodium Chloride) 50 mls @ 100 mls/hr IV Q6H [facility] Last Infusion: 04/17/21 10:11 Dose: Infused Documented by: Metronidazole (Flagyl) 500 mg in 100 mls @ 100 mls/hr IV Q12H [facility] Last Infusion: 04/17/21 01:00 Dose: Infused Documented by: Insulin Human Lispro (Insulin Lispro 100 Unit/Ml 3 Ml Vial) 0 unit SUBCUT QIDACHS [facility]; Protocol Last Admin: 04/17/21 08:09 Dose: Not Given Documented by: Ondansetron HCl (Ondansetron Hcl 4 Mg/2 Ml Vial) 4 mg IVPUSH Q8H PRN PRN Reason: Nausea and Vomiting Last Admin: 04/15/21 16:48 Dose: 4 mg Documented by: Sodium Chloride (0.9 % Sodium Chloride Flush 3 Ml Syringe) 3 ml IVFLUSH QSHIFT [facility] Last Admin: 04/17/21 09:22 Dose: Not Given Documented by: Time Spent With Patient Time: Total time spent is greater than 50% in coordination of care (as documented) at patient's floor/unit and/or counseling patient: Time with patient: 25 - 35 minutes Quality Stroke Does the patient have a stroke diagnosis?: No VTE Prior VTE?: No VTE Risk Level:: Medical - moderate - high VTE Device Contraindication: N/A - Device Ordered VTE Drug Contraindication: N/A - Med Ordered
[2021-04-17 11:36] VITALS: BP 118/83; PULSE 75; RESP 19; TEMP 36.3; O2SAT 98
[2021-04-17 11:41] LABS: Glucose, Whole Blood 195 mg/dL (60-115)
[2021-04-17] MEDS: Insulin Lispro 100 UNIT/ML 3 ML VIAL SUBCUT ×2 (11:42→21:22)
[2021-04-17] MEDS: metroNIDAZOLE/NS 500 MG/100 ML PIGGYBACK 100 MG IV ×2 (11:43→22:08)
[2021-04-17 15:13] VITALS: BP 104/56; PULSE 68; RESP 18; TEMP 36.6; O2SAT 95
[2021-04-17 16:12] LABS: Glucose, Whole Blood 120 mg/dL (60-115)
[2021-04-17] MEDS: ondansetron HCL 4 MG/2 ML VIAL IVPUSH (18:15)
[2021-04-17 19:57] VITALS: BP 104/58; PULSE 62; RESP 16; TEMP 36.1; O2SAT 97
[2021-04-17 20:38] LABS: Glucose, Whole Blood 174 mg/dL (60-115)
[2021-04-18] VITALS: BP 102/58; PULSE 60; RESP 16; TEMP 36.4; O2SAT 98
[2021-04-18] MEDS: 0.9 % Sodium Chloride Flush 3 ML SYRINGE IVFLUSH ×2 (00:15→07:50)
[2021-04-18] MEDS: HYDROmorphone HCl 0.5 MG/0.5 ML SYRINGE IVPUSH ×2 (01:35→07:53)
[2021-04-18] MEDS: Piperacillin Sodium/Tazobactam 3.375 GM in 0.9 % Sodium Chloride 50 ML IV ×2 (03:50→07:50)
[2021-04-18 04:00] VITALS: BP 91/61; PULSE 75; RESP 16; TEMP 37.1; O2SAT 97
[2021-04-18 06:05] LABS: MANUAL DIFF FLAG NO
[2021-04-18 06:08] LABS: Basophils Absolute Auto 0.1 X10*3/uL (0.0-0.2); Basophils Percent Auto 0.6 % (0-2); Eosinophils Absolute Auto 0.3 X10*3/uL (0.0-0.4); Eosinophils Percent Auto 2.7 % (0-4); Hematocrit 30.1 % (37-47); Hemoglobin 9.7 g/dl (12.0-16.0); Imm Gran Abs Auto 0.04 X10*3/uL (0.00-0.03); Imm Gran Pct Auto 0.4 % (0.0-0.4); Lymphocytes Absolute Auto 3.5 X10*3/uL (1.2-4.9); Lymphocytes Percent Auto 32.2 % (20-40); Mean Corpuscular HGB Conc 32.2 g/dl (31.0-35.0); Mean Corpuscular Hemoglobin 24.9 pg (27.0-33.0); Mean Corpuscular Volume 77.2 fL (80-98); Mean Platelet Volume 11.5 fL (9.4-12.3); Monocytes Absolute Auto 0.6 X10*3/uL (0.1-1.2); Monocytes Percent Auto 5.5 % (2-11); Neutrophils Absolute Auto 6.4 X10*3/uL (2.0-8.3); Neutrophils Percent Auto 58.6 % (45-73); Platelet Count 303 X10*3/uL (160-400); Red Cell Distribution Width 14.8 % (11.0-16.0); White Blood Count 10.9 X10*3/uL (4.8-10.8)
[2021-04-18 07:33] VITALS: BP 93/55; PULSE 70; RESP 18; TEMP 36.2; O2SAT 96
[2021-04-18 07:39] LABS: Glucose, Whole Blood 150 mg/dL (60-115)
[2021-04-18 11:29] VITALS: BP 130/77; PULSE 72; RESP 18; TEMP 36.4; O2SAT 98
[2021-04-18 11:36] LABS: Glucose, Whole Blood 174 mg/dL (60-115)
[2021-04-18] MEDS: oxyCODONE HCl Immed Release 5 MG TABLET PO (11:38)
[2021-04-18] MEDS: metroNIDAZOLE/NS 500 MG/100 ML PIGGYBACK 100 MG IV (11:39)
--- NOTE | 2021-04-18 11:53 | P.PNGS_ITS ---
Subjective Subjective Date of Service: 04/18/21 Physical Exam Vital Signs: Vital Signs: Last Vital Signs Temp 97.6 F 04/18/21 11:29 Pulse 72 04/18/21 11:29 Resp 18 04/18/21 11:29 BP 130/77 04/18/21 11:29 Pulse Ox 98 04/18/21 11:29 Body Mass Index 35.4 Progress Note: A&P Fall Risk Details Current Medications: Current Medications Hydromorphone HCl (Hydromorphone Hcl 0.5 Mg/0.5 Ml Syringe) 0.5 mg IVPUSH Q3H PRN; Protocol PRN Reason: Pain, Moderate (Pain Scale 4-6 Last Admin: 04/18/21 07:53 Dose: 0.5 mg Documented by: Piperacillin Sod/Tazobactam (Sod 3.375 gm/ Sodium Chloride) 50 mls @ 100 mls/hr IV Q6H [facility] Last Infusion: 04/18/21 09:24 Dose: Infused Documented by: Metronidazole (Flagyl) 500 mg in 100 mls @ 100 mls/hr IV Q12H [facility] Last Admin: 04/18/21 11:39 Dose: 100 mls/hr Documented by: Insulin Human Lispro (Insulin Lispro 100 Unit/Ml 3 Ml Vial) 0 unit SUBCUT QIDACHS [facility]; Protocol Last Admin: 04/18/21 11:36 Dose: Not Given Documented by: Ondansetron HCl (Ondansetron Hcl 4 Mg/2 Ml Vial) 4 mg IVPUSH Q8H PRN PRN Reason: Nausea and Vomiting Last Admin: 04/17/21 18:15 Dose: 4 mg Documented by: Oxycodone HCl (Oxycodone Hcl Immed Release 5 Mg Tablet) 5 mg PO Q4H PRN PRN Reason: Pain, Moderate (Pain Scale 4-6 Last Admin: 04/18/21 11:38 Dose: 5 mg Documented by: Sodium Chloride (0.9 % Sodium Chloride Flush 3 Ml Syringe) 3 ml IVFLUSH QSHIFT [facility] Last Admin: 04/18/21 07:50 Dose: 3 ml Documented by: Time Spent With Patient Time: Total time spent is greater than 50% in coordination of care (as documented) at patient's floor/unit and/or counseling patient: Quality Stroke Does the patient have a stroke diagnosis?: No VTE Prior VTE?: No VTE Risk Level:: Medical - moderate - high VTE Device Contraindication: N/A - Device Ordered VTE Drug Contraindication: N/A - Med Ordered
--- NOTE | 2021-04-18 14:06 | PM.DS ---
DS: Providers Provider Date of Service: 04/18/21 Date of admission: 04/14/21 22:29 Date of discharge: 04/18/21 Primary care physician: Diogo Wright MD Admitting clinician: Dimitri Degroot Consults: 04/14/21 22:36 Consult to Hospitalist Routine Consulting Provider: Hospitalist Reason For Exam: diabetes Attending physician on discharge: Darien Becker Discharging clinician: Darien Becker DS: Diagnosis Discharge Diagnosis (1) Diverticulitis of large intestine with abscess: Start date: 04/14/21 Status: Acute DS: Summary Hospital Course Hospital Course: 45-year-old female admitted with pain in the lower back and pelvic region by Dr. Smith is on 04/15/2021. She stated this started 36 hours prior to admission. She denies fever but stated that she did have some chills in the absence of nausea vomiting or diarrhea. She has a history of admission for diverticular abscess earlier this month. CT initially showed an abscess in the pelvis of borderline size on initial admission. She was discharged April 06 and returns of with pain as stated previously. Hospital course significant for IR drainage of pelvic abscess; micro demonstrates Gram-negative rods. She was initially on Augmentin prior to this. After interventional drainage, patient continued to improved at this point is asking for discharge. Status at Discharge Functional status at discharge: independent ambulation Time Spent with Patient Time attestation: Total time spent providing and/or coordinating discharge services: Discharge coordination time: Greater than 30 minutes Specific discharge activities: As tolerated Quality: Stroke Does the patient have a stroke diagnosis?: No Physical Exam Vital Signs: Vital Signs: Last Vital Signs Temp 97.6 F 04/18/21 11:29 Pulse 72 04/18/21 11:29 Resp 18 04/18/21 11:29 BP 130/77 04/18/21 11:29 Pulse Ox 98 04/18/21 11:29 Body Mass Index 35.4 Const: Other: Awake alert oriented x3 no acute distress HENMT: Other: Membranes moist; oropharynx clear Resp: Auscultation: clear to auscultation bilaterally, no rales, no rhonchi and no wheezes Cardio: Rate: regular rate Rhythm: regular rhythm Heart sounds: S1 normal heart sound present, S2 normal heart sound present and no murmurs GI: Other: Soft nontender nondistended with normoactive bowel sounds. There are no peritoneal signs Neuro: Other: Age-appropriate nonfocal Extrem: General: Yes normal to inspection DS: Data Data Completed and Pending Labs on day of discharge: Laboratory Results - last 24 hr 04/17/21 04/17/21 04/18/21 16:08 20:34 05:29 WBC 10.9 H RBC 3.90 L Hgb 9.7 L Hct 30.1 L MCV 77.2 L MCH 24.9 L MCHC 32.2 RDW 14.8 Plt Count 303 MPV 11.5 Immature Gran % (Auto) 0.4 Neut % (Auto) 58.6 Lymph % (Auto) 32.2 Charlton % (Auto) 5.5 Eos % (Auto) 2.7 Baso % (Auto) 0.6 Lymph # (Auto) 3.5 Charlton # (Auto) 0.6 Eos # (Auto) 0.3 Baso # (Auto) 0.1 Abs Immat Gran (auto) 0.04 H Absolute Neuts (auto) 6.4 Absolute Nucleated RBC 0.000 Nucleated RBC % (auto) 0.0 POC Glucose 120 H 174 H 04/18/21 04/18/21 07:32 11:27 WBC RBC Hgb Hct MCV MCH MCHC RDW Plt Count MPV Immature Gran % (Auto) Neut % (Auto) Lymph % (Auto) Charlton % (Auto) Eos % (Auto) Baso % (Auto) Lymph # (Auto) Charlton # (Auto) Eos # (Auto) Baso # (Auto) Abs Immat Gran (auto) Absolute Neuts (auto) Absolute Nucleated RBC Nucleated RBC % (auto) POC Glucose 150 H 174 H Preliminary micro results at discharge 04/16/21 13:15 Routine Culture - Preliminary Abscess Ischiorectal Gram negative rhea Anaerobic Culture - Preliminary Culture in progress. 04/14/21 21:07 Blood Culture - Preliminary Blood - Venous No growth after 48 hours. 04/14/21 20:56 Blood Culture - Preliminary Blood - Venous No growth after [address] scan - pelvis: Radiologist's impression: ITS Impressions Abdomen/Pelvis CT 04/14/21 20:34 IMPRESSION: Perirectal/sigmoid pelvic abscess. This is the same abscess and has been present in the past. It is about the same size as it was on 04/04/2021 but with a bit more air as opposed to fluid within it. There does appear to be a left-sided para-sacral approach for drainage available should this be desired. This critical result was discussed with Dr. Kim at 10:10 PM on the day the exam and it was ascertained that the content and urgency of the report was understood at the time of direct communication. Abscess Drainage CT 04/16/21 14:30 IMPRESSION: CT-guided left pelvic aspiration. Discharge Plan Discharge Patient Disposition: Home, Self-Care Discharge Diagnosis: Diverticulitis;Pelvic abcess Referrals: Diogo Wright MD [Primary Care Provider] - 1 Week Discharge Medications: Continued lisinopril 2.5 mg tablet 2.5 mg PO DAILY 30 Days Qty: 30 RF: 11 atorvastatin 20 mg tablet 20 mg PO BEDTIME 90 Days Qty: 90 RF: 1 fluticasone propion-salmeterol [Advair Diskus] 250-50 mcg/dose blister with device 1 puff inhalation Q12H RF: 0 cyanocobalamin (vitamin B-12) 1,000 mcg Tablet 1,000 mcg PO DAILY RF: 0 ascorbic acid (vitamin C) [Vitamin C] 500 mg Tablet 500 mg PO DAILY RF: 0 biotin 1,000 mcg Tablet,Chewable 1,000 mcg PO DAILY RF: 0 oxycodone 5 mg tablet 5 mg PO TID PRN (Reason: pain) Qty: 20 RF: 0 docusate sodium [Colace] 100 mg capsule 100 mg PO BID PRN (Reason: constipation) Qty: 30 RF: 0 montelukast 10 mg tablet 1 tab PO BEDTIME RF: 0 multivitamin Tablet 1 tab PO DAILY RF: 0 ibuprofen 200 mg Tablet 200 mg PO Q6H PRN (Reason: Pain) RF: 0 cholecalciferol (vitamin D3) [Vitamin D3] 25 mcg (1,000 unit) Tablet 25 mcg PO DAILY RF: 0 No Action (DME) FreeStyle Tiff 14 Day Sensor Kit See Rx Instructions .ROUTE .MEDSUPPLY Qty: 2 RF: 11 (DME) blood sugar diagnostic Strip See Rx Instructions strip .ROUTE DAILY Qty: 100 RF: 11 Discharge Orders: Discharge Order (Routine); Ordered 04/18/21 Ordered By: Darien Becker Diet: diabetic diet Activity on Discharge: As tolerated Stand Alone Forms: Patient Portal Discharge page Care Plan Goals: Follow up with Dr Gó[facility]z [facility] Concerns: Pelvic abcess Plan of Treatment: Med/Surgical f/up Assessment: Improved since D/C
--- NOTE | 2021-04-18 14:42 | MHC.CM.PN ---
PT CLEARED TO DC HOME TODAY WITH NO SERVICES
== END 2021-04-18 14:42 | disposition home or self-care (01) | DRG 720 ==
LOC: HO.ED 19:56 → HO.EDOVER 22:50 → HO.ISO 04-15 08:41 → HO.S3 04-15 15:33
PROVIDERS: Internal Medicine; Radiology Diagnostic Radiology; Surgery; Admitting Provider Surgery; Emergency Provider Emergency Medicine; PCP Internal Medicine; Visit Provider Hospitalist
PROC: 0W9H3ZZ Drainage of Retroperitoneum, Percutaneous Approach (ICD-10-PCS; CPT 46040; principal; 2021-04-16 12:30)
DX: A41.9 Sepsis, unspecified organism (principal); E11.42 Type 2 diabetes mellitus with diabetic polyneuropathy; K57.40 Diverticulitis of both small and large intestine with perforation and abscess without bleeding; J44.9 Chronic obstructive pulmonary disease, unspecified; D64.9 Anemia, unspecified; E66.01 Morbid (severe) obesity due to excess calories; Z68.35 Body mass index [BMI] 35.0-35.9, adult; F17.210 Nicotine dependence, cigarettes, uncomplicated; Z20.822 Contact with and (suspected) exposure to COVID-19; Z71.6 Tobacco abuse counseling; Z79.1 Long term (current) use of non-steroidal anti-inflammatories (NSAID); Z79.51 Long term (current) use of inhaled steroids; Z79.899 Other long term (current) drug therapy
CPT/HCPCS: 36415; 49406; 74176; 80053; 81001; 81003; 81025; 82947; 83605; 85025; 85027; 85610; 87040; 87071; 87073; 87077; 87186; 87205; 87635; 96365; 96375; 99284; 99285; C1894; J1170; J2270; J2405; J2543

== ENCOUNTER 2021-04-26 12:01 | Inpatient (IN) | payer OTHER, SELFPAY ==
--- NOTE | ~2021-04-26 | CT_ITS ---
PROCEDURE: CT GUIDED ABSCESS DRAINAGE CLINICAL INFORMATION: Pelvic diverticular abscess. COMPARISON: Previous CT of the abdomen and pelvis most recent 04/26/2021. TECHNIQUE: Procedure risks and benefits including bleeding, infection and injury to the adjacent bowel or organs was discussed with the patient and informed consent was obtained. The patient was positioned in the right decubitus position. Limited axial images through the pelvis were performed. The left buttock was prepped and draped in the usual sterile fashion. The skin and soft tissues were anesthetized with 1% lidocaine plain. Using CT guidance and a 22-gauge Chiba needle, access to the fluid collection adjacent to the left side of the distal sigmoid colon/upper rectum was obtained. Purulent material was aspirated. Over an 0.018 wire, a 6.3-Faroese drainage catheter was positioned in the collection. 50 mL of purulent fluid was aspirated. Diagnostic specimen was sent for Gram stain and culture. Patient received Versed 2.5 mg and fentanyl 125 mcg intravenously during the procedure. Conscious sedation was provided by a registered nurse under my direct supervision. Total sedation time was [address] examination was performed using dose optimization techniques as appropriate, variously including the following: *Automated exposure control *Adjustment of mA and/or kV according to patient size (this includes techniques or standardized protocols for targeted exams where dose is matched to indication/reason for exam; i.e. extremities or head) *Use of iterative reconstruction technique DLP: 511 mGy-cm FINDINGS: There is diverticulitis of the sigmoid colon. There is a 3 x 5 cm collection to the left of the distal sigmoid colon and upper rectum that was targeted for drainage. Final images demonstrate new drainage catheter in the collection and interval decrease in size in the collection. CT/CT guided drainage IMPRESSION: CT-guided left pelvic drainage.
--- NOTE | ~2021-04-26 | CT_ITS ---
EXAMINATION: CT ABDOMEN AND PELVIS WITH CONTRAST CLINICAL INFORMATION: Abdominal pain. Recent surgery. COMPARISON: CT scan abdomen pelvis April 14, 2021 TECHNIQUE: Multidetector volumetric images were obtained from the superior aspect of the liver through the pubic symphysis following administration 85 mL of Omnipaque 350 intravenous contrast. Sagittal and coronal reformatted images were obtained on the technologist's workstation. Oral contrast: No This CT examination was performed using dose optimization techniques as appropriate, variously including the following: *Automated exposure control *Adjustment of mA and/or kV according to patient size (this includes techniques or standardized protocols for targeted exams where dose is matched to indication/reason for exam; i.e. extremities or head) *Use of iterative reconstruction technique DLP: 850 mGy-cm FINDINGS: LUNG BASES: The visualized lung bases are unremarkable. LIVER, GALLBLADDER, AND BILIARY TREE: The liver is normal in size, shape, and attenuation. No focal hepatic lesion or biliary ductal dilatation is present. The gallbladder is unremarkable with no evidence of radiopaque gallstones, gallbladder wall thickening, or obvious pericholecystic inflammatory changes. PANCREAS: Unremarkable. SPLEEN: Unremarkable. ADRENAL GLANDS: Unremarkable. KIDNEYS AND URETERS: The kidneys are normal in size, shape, and attenuation. No hydronephrosis, hydroureter, or calculi seen. No perinephric stranding. No change of the 1.7 cm cyst at the mid lower pole of the left kidney. No follow-up imaging is recommended for simple renal cyst. BLADDER: Unremarkable. ABDOMINAL WALL/GASTROINTESTINAL TRACT: Patient has a previously seen ventral wall hernia. The transverse colon herniates through this defect. This does not obstruct the bowel however. There is no bowel wall thickening or edema. There is a large volume of stool throughout the colon. There are diverticula of the sigmoid colon. There is a persistent fluid collection with air-fluid level low in the pelvis adjacent to the sigmoid colon this collection was present on prior studies. This collection was aspirated on CAT scan of April 16, 2021. This collection has not substantially changed in size measuring about 5 cm AP by 4 cm transverse.. There is no new collection. LYMPH NODES: Normal. VASCULAR: Small volume of vascular wall calcifications of aorta and iliac arteries. PELVIC VISCERA: Unremarkable. OSSEOUS STRUCTURES: Unremarkable. CT/CT abdomen pelvis w con IMPRESSION: 1. Ventral wall hernia now containing a nonobstructed loop of transverse colon. 2. Persistent collection with air-fluid level low in the pelvis adjacent to the sigmoid colon. There is diverticulosis of the sigmoid colon.
[2021-04-26 12:51] VITALS: BP 138/78; PULSE 102; RESP 17; TEMP 35.8; O2SAT 99; BMI 35.4
[2021-04-26] MEDS: Ibuprofen 600 MG TABLET PO (13:02)
--- NOTE | 2021-04-26 16:56 | ED_ITS ---
HPI - General Adult General Chief complaint: Skin/Abscess/Foreign Body Stated complaint: pelvic pain Time Seen by Provider: 04/26/21 16:30 Source: patient Mode of arrival: ambulatory Limitations: no limitations History of Present Illness HPI narrative: 45-year-old female presents with 10/10 abdominal pain, abdominal burning, pain when she is sitting and difficulty with urinating. States that she was recently admitted with an abdominal abscess that needed CT scan-guided drainage. She states that she was discharged home less than 2 weeks ago, felt a little bit better but started getting worse on Monday. She is unable to tolerate p.o. intake and had only several sips of an orange soda earlier today. Onset (ago): week(s) Location: abdomen and pelvis Severity: severe Severity scale (1-10): 10 Quality: burning and constant Pain Consistency: constant Relieving factors: none Exacerbating factors: movement and other (Pressure) Associated symptoms: diaphoresis, fever/chills, loss of appetite, nausea/vomiting and weakness Treatments prior to arrival: NSAID Related Data Home Medications Medication Instructions Recorded Confirmed ascorbic acid (vitamin C) 500 mg 500 mg PO DAILY 03/31/21 04/26/21 tablet (Vitamin C) biotin 1,000 mcg chewable tablet 1,000 mcg PO DAILY 03/31/21 04/26/21 cyanocobalamin (vitamin B-12) 1,000 mcg PO DAILY 03/31/21 04/26/21 1,000 mcg tablet fluticasone 250 mcg-salmeterol 50 1 puff INHALATION BID 03/31/21 04/26/21 mcg/dose blistr powdr for inhalation (Advair Diskus) cholecalciferol (vitamin D3) 25 25 mcg PO DAILY 04/15/21 04/26/21 mcg (1,000 unit) tablet (Vitamin D3) ibuprofen 200 mg tablet 200 mg PO Q6H PRN 04/15/21 04/26/21 montelukast 10 mg tablet 1 tab PO BEDTIME 04/15/21 04/26/21 multivitamin 1 tab PO DAILY 04/15/21 04/26/21 blood sugar diagnostic (FreeStyle 04/26/21 04/26/21 Test) fexofenadine 180 mg tablet 1 tab PO DAILY PRN 04/26/21 04/26/21 insulin lispro 100 unit/mL 1 sliding scale dose SUBCUT TIDAC 04/26/21 04/26/21 subcutaneous cartridge (Humalog U-100 Insulin) Previous Rx's Medication Instructions Recorded FreeStyle Tiff 14 Day Sensor #2 ea NS 03/15/21 (flash glucose sensor) atorvastatin 20 mg tablet 20 mg PO BEDTIME 90 Days #90 tab 03/15/21 docusate sodium 100 mg capsule 100 mg PO BID PRN #30 cap 04/06/21 (Colace) ciprofloxacin HCl 500 mg tablet 500 mg PO BID #20 tab 04/18/21 (Cipro) metronidazole 500 mg tablet 500 mg PO TID #30 tab 04/18/21 (Flagyl) oxycodone 5 mg tablet 5 mg PO Q6H PRN #14 tab 04/18/21 Allergies Allergy/AdvReac Type Severity Reaction Status Date / Time latex [LATEX] Allergy Mild RASH Verified 04/01/21 10:38 Review of Systems Review of Systems: Constitutional: No Weight loss, No Fever, positive Chills, positive Night Sweats, positive Fatigue, No Malaise ENT/Mouth: No Hearing loss, No Ear Pain, No Nasal Congestion, No Sinus Pain, No Hoarseness, No sore throat, No Rhinorrhea, No Swallowing Difficulty Eyes: No Eye Pain, No Swelling, No Redness, No Foreign Body, No Discharge, No Vision Changes Cardiovascular: No Chest Pain, No SOB, No Dyspnea on Exertion, No Orthopnea, No Edema, No Palpitations Respiratory: No Cough, No Sputum, No Wheezing, No Smoke Exposure, No Dyspnea Gastrointestinal: Positive Nausea, Positive Vomiting, positive Diarrhea, positive abdominal Pain, No Hematochezia, No Melena Genitourinary: no irregular bleeding, positive Dysuria, No Urinary Frequency, No Hematuria, No Urinary Incontinence, No Urgency, No Flank Pain, No Urinary Flow Changes, No Hesitancy Musculoskeletal: No joint pain, No Myalgias, No Joint Swelling Skin: No Skin Lesions, No rash Neuro: No Weakness, No Numbness, No Paresthesias, No Loss of Consciousness, No Dizziness, No Headache Psych: No Anxiety/Panic, No Depression, No SI/HI/AH/VH, No Social Issues Heme/Lymph: No Bruising, No Bleeding,No Lymphadenopathy Endocrine: No Polyuria, No Polydipsia, No Temperature Intolerance Yes all other systems are reviewed and are negative [facility] Past Medical History Attestation statement: The following information was validated with the patient. Source: old records reviewed Medical History B12 deficiency Diabetes type 2, uncontrolled Diabetic nephropathy associated with type 2 diabetes mellitus Diverticulitis of both large and small intestine with perforation and abscess Diverticulitis of large intestine with abscess Dyslipidemia Hirsutism Hypertension Morbid obesity with BMI of 50.0-59.9, adult Sepsis Vitamin D deficiency Surgical History History of ankle surgery Hx of section Hx of umbilical hernia repair Family History Family History Father Throat cancer Cirrhosis Mother Diabetes Social History Social History Household Members: None Housing: Apartment Do you presently have visiting nurse or other home services: No Alcohol intake: never Patient Tobacco Use Status: Current everyday Tobacco user Tobacco use type: Cigarette Cigarette Packs Per Day: 0.5 Cigarettes Per Day: 10.0 Years Smoked: 30 e-Cigarette/Vaping Use: Never Used Second Hand Smoke Exposure: Yes Substance Use Type: Marijuana Advance Directives: Yes Advance Directives on File: Yes Advance Directives Date on File: 03/31/21 Patient : No service: No Current occupational status: unemployed Physical Exam Vital Signs: Vital Signs: Last Vital Signs Temp 98.4 F 04/26/21 20:20 Pulse 99 04/26/21 20:20 Resp 16 04/26/21 20:20 BP 142/91 H 04/26/21 20:20 Pulse Ox 98 04/26/21 20:20 Body Mass Index 35.4 Appearance: Alert. Oriented X3. Moderate distress. Appears ill and fatigued. Head: Normal external exam. Normocephalic. Atraumatic. No Blankenship signs noted. No raccoon eyes noted Eyes: PERRLA. EOMI. Conjunctiva and sclera normal. Eyelids normal. ENT: TM's Normal. Pharynx normal. Uvula midline. Moist mucous membranes. No trismus noted. No drooling noted. No muffled voice noted. Neck: Normal inspection. Neck supple. No adenopathy. Thyroid Normal. No meningeal signs. No neck mass noted. CVS: Tachycardic heart rate and rhythm. Heart sound normal. No murmurs noted. Pulses equal to all extremities. Respiratory: No respiratory distress. Painless inspiration. Breath sounds normal. No wheezes/rales/rhonchi noted. Chest nontender. No accessory muscle usage noted or decreased air movement noted. Abdomen: Soft and diffusely tender to the right lower left lower and suprapubic. Bowel sounds normal in all 4 quadrants. No distention noted. No organomegaly noted. No visible injury noted. Back: No CVA tenderness. Full range of motion noted. Skin: Skin warm and dry. Normal skin color. Normal skin turgor. No rashes/lesions/lacerations noted. Extremities: No lower extremity edema. Extremities exhibit normal range of motion. Extremities nontender. Pelvis is stable to palpation however tender greater on the left than the right. Neuro: cranial nerves 2-12 intact, no focal neural deficits, strength 5/5 to all extremities, No motor deficit. No sensory deficit. Course Course Course Narrative: 45-year-old female presents with pelvic and intra-abdominal pain consistent with prior presentation on 03/31 and where she needed to be admitted for abdominal abscess. She states the pain feels the same, except the burning is greater and she is now having trouble with her bladder. States that when she gets up and walks she experiences stress incontinence. Initial triage notes indicate heart rate of 102 and temperature of 96.5?, she appears fatigued. 5:03 p.m. sepsis protocol starts at this time. After review of notes from Dr. Gómez and Dr. Tavarez, I would start with Zosyn, Flagyl, 2 L of normal saline, Zofran, morphine, labs, lactic and cultures. 7:[address] scan still pending. 8:[address] scan read still pending. 9:00 p.m. discussion with on-call surgery, plan is to admit for intra-abdominal abscess. Patient updated and agrees with plan. Consultations Consultation #1: Angela Time: 19:30 Consultation #2: Cathleen Time: 21:00 Medical Decision Making Differential Diagnosis Differential Diagnosis: Sepsis, abscess, perforation Medical Records Medical records reviewed: Yes I reviewed the patient's medical records. Lab Data Lab results reviewed: Yes I reviewed the patient's lab results. Result diagrams: 04/26/21 17:22 04/26/21 17:22 Labs: Lab Results 04/26/21 04/26/21 04/26/21 Range/Units 17:22 17:22 17:22 WBC 16.7 H (4.8-10.8) X10*3/uL RBC 5.03 D (4.20-5.50) X10*6/uL Hgb 12.8 D (12.0-16.0) g/dl Hct 37.8 D (37-47) % MCV 75.1 L (80-98) fL MCH 25.4 L (27.0-33.0) pg MCHC 33.9 (31.0-35.0) g/dl RDW 15.1 (11.0-16.0) % Plt Count 322 (160-400) X10*3/uL MPV 11.1 (9.4-12.3) fL Immature Gran % (Auto) 0.7 H (0.0-0.4) % Neut % (Auto) 71.7 (45-73) % Lymph % (Auto) 21.1 (20-40) % [place] % (Auto) 4.4 (2-11) % Eos % (Auto) 1.6 (0-4) % Baso % (Auto) 0.5 (0-2) % Lymph # (Auto) 3.5 (1.2-4.9) X10*3/uL [place] # (Auto) 0.7 (0.1-1.2) X10*3/uL Eos # (Auto) 0.3 (0.0-0.4) X10*3/uL Baso # (Auto) 0.1 (0.0-0.2) X10*3/uL Abs Immat Gran (auto) 0.11 H (0.00-0.03) X10*3/uL Absolute Neuts (auto) 12.0 H (2.0-8.3) X10*3/uL Absolute Nucleated RBC 0.000 (0.0-0.012) X10*3/uL Nucleated RBC % (auto) 0.0 (0.0-0.2) /100WBC PT 12.2 (9.9-13.0) SEC INR 1.1 (0.9-1.1) APTT 36.4 (24.1-38.0) SEC Sodium 139 (135-145) mmol/L Potassium 4.1 (3.3-5.1) mmol/L Chloride 105 (96-108) mmol/L Carbon Dioxide 24 (22-29) mmol/L Anion Gap 14 (12-20) BUN 7 L (9-16) mg/dL Creatinine 0.85 (0.5-1.4) mg/dL Estim Creat Clear Calc 97.1 Estimated GFR > 60 Random Glucose 212 H (60-115) mg/dL Lactic Acid (0.5-2.0) mmol/L Calcium 9.6 (8.4-10.2) mg/dL Total Bilirubin 0.4 (0.0-1.0) mg/dL Direct Bilirubin 0.2 (0.0-0.5) mg/dL AST 13 (5-31) U/L ALT 11 (0-31) U/L Alkaline Phosphatase 105 (39-117) U/L Total Protein 8.0 (6.5-8.0) g/dL Albumin 3.9 (3.5-5.0) g/dL Lipase 42 (8-78) U/L Urine Color Urine Appearance Urine pH (5.0-8.0) Ur Specific Bates (1.005-1.025) Urine Protein (NEG-TRACE) MG/DL Urine Glucose (UA) (NEG) MG/DL Urine Ketones (NEG) MG/DL Urine Blood (NEG) Urine Nitrite (NEG) Ur Leukocyte Esterase (NEG) Urine Test (NEGATIVE) 04/26/21 04/26/21 04/26/21 Range/Units 17:22 19:21 19:21 WBC (4.8-10.8) X10*3/uL RBC (4.20-5.50) X10*6/uL Hgb (12.0-16.0) g/dl Hct (37-47) % MCV (80-98) fL MCH (27.0-33.0) pg MCHC (31.0-35.0) g/dl RDW (11.0-16.0) % Plt Count (160-400) X10*3/uL MPV (9.4-12.3) fL Immature Gran % (Auto) (0.0-0.4) % Neut % (Auto) (45-73) % Lymph % (Auto) (20-40) % [place] % (Auto) (2-11) % Eos % (Auto) (0-4) % Baso % (Auto) (0-2) % Lymph # (Auto) (1.2-4.9) X10*3/uL [place] # (Auto) (0.1-1.2) X10*3/uL Eos # (Auto) (0.0-0.4) X10*3/uL Baso # (Auto) (0.0-0.2) X10*3/uL Abs Immat Gran (auto) (0.00-0.03) X10*3/uL Absolute Neuts (auto) (2.0-8.3) X10*3/uL Absolute Nucleated RBC (0.0-0.012) X10*3/uL Nucleated RBC % (auto) (0.0-0.2) /100WBC PT (9.9-13.0) SEC INR (0.9-1.1) APTT (24.1-38.0) SEC Sodium (135-145) mmol/L Potassium (3.3-5.1) mmol/L Chloride (96-108) mmol/L Carbon Dioxide (22-29) mmol/L Anion Gap (12-20) BUN (9-16) mg/dL Creatinine (0.5-1.4) mg/dL Estim Creat Clear Calc Estimated GFR Random Glucose (60-115) mg/dL Lactic Acid 1.1 (0.5-2.0) mmol/L Calcium (8.4-10.2) mg/dL Total Bilirubin (0.0-1.0) mg/dL Direct Bilirubin (0.0-0.5) mg/dL AST (5-31) U/L ALT (0-31) U/L Alkaline Phosphatase (39-117) U/L Total Protein (6.5-8.0) g/dL Albumin (3.5-5.0) g/dL Lipase (8-78) U/L Urine Color YELLOW Urine Appearance CLEAR Urine pH 5.5 (5.0-8.0) Ur Specific [place] 1.020 (1.005-1.025) Urine Protein NEG (NEG-TRACE) MG/DL Urine Glucose (UA) NEG (NEG) MG/DL Urine Ketones NEG (NEG) MG/DL Urine Blood NEG (NEG) Urine Nitrite NEG (NEG) Ur Leukocyte Esterase NEG (NEG) Urine Test NEGATIVE (NEGATIVE) Imaging Data CT abdomen pelvis: Attestation: I personally reviewed and interpreted this imaging study as follows: Radiologist's impression: EXAMINATION: CT ABDOMEN AND PELVIS WITH CONTRAST? CLINICAL INFORMATION: Abdominal pain. Recent surgery.? COMPARISON: CT scan abdomen pelvis April 14, 2021? TECHNIQUE: Multidetector volumetric images were obtained from the superior aspect of the liver through the pubic symphysis following administration 85 mL of Omnipaque 350 intravenous contrast. Sagittal and coronal reformatted images were obtained on the technologist's workstation.? Oral contrast: No This CT examination was performed using dose optimization techniques as appropriate, variously including the following: *Automated exposure control *Adjustment of mA and/or kV according to patient size (this includes techniques or standardized protocols for targeted exams where dose is matched to indication/reason for exam; i.e. extremities or head) *Use of iterative reconstruction technique DLP: 850 mGy-cm FINDINGS: LUNG BASES: The visualized lung bases are unremarkable.? LIVER, GALLBLADDER, AND BILIARY TREE: The liver is normal in size, shape, and attenuation. No focal hepatic lesion or biliary ductal dilatation is present. The gallbladder is unremarkable with no evidence of radiopaque gallstones, gallbladder wall thickening, or obvious pericholecystic inflammatory changes.? PANCREAS: Unremarkable.? SPLEEN: Unremarkable.? ADRENAL GLANDS: Unremarkable.? KIDNEYS AND URETERS: The kidneys are normal in size, shape, and attenuation. No hydronephrosis, hydroureter, or calculi seen. No perinephric stranding. No change of the 1.7 cm cyst at the mid lower pole of the left kidney. No follow-up imaging is recommended for simple renal cyst. BLADDER: Unremarkable.? ABDOMINAL WALL/GASTROINTESTINAL TRACT: Patient has a previously seen ventral wall hernia. The transverse colon herniates through this defect. This does not obstruct the bowel however. There is no bowel wall thickening or edema. There is a large volume of stool throughout the colon. There are diverticula of the sigmoid colon. There is a persistent fluid collection with air-fluid level low in the pelvis adjacent to the sigmoid colon this collection was present on prior studies. This collection was aspirated on CAT scan of April 16, 2021. This collection has not substantially changed in size measuring about 5 cm AP by 4 cm transverse.. There is no new collection. LYMPH NODES: Normal. VASCULAR: Small volume of vascular wall calcifications of aorta and iliac arteries. PELVIC VISCERA: Unremarkable.? OSSEOUS STRUCTURES: Unremarkable.? CT/CT abdomen pelvis w con IMPRESSION: ? 1. Ventral wall hernia now containing a nonobstructed loop of transverse colon. 2. Persistent collection with air-fluid level low in the pelvis adjacent to the sigmoid colon. There is diverticulosis of the sigmoid colon.? ECG Data Attestation: I personally reviewed and interpreted this ECG as follows: Prior ECG tracings: available for review Interpretation: Vent. Rate : 080 BPM ? ? Atrial Rate : 080 BPM ?? P-R Int : 124 ms? QRS Dur : 070 ms ? ? QT Int : 384 ms ? ? ? P-R-T Axes : 052 047 029 degrees ?? QTc Int : 442 ms ? Normal sinus rhythm with sinus arrhythmia Normal ECG When compared with ECG of 02-APR-2021 20:56, No significant change was found DD/ [id number] Critical Care Time Critical Care Time Critical Care Time: Yes Total Critical Care Time: 45 Attestation: I have personally provided critical care time exclusive of time spent on separately billable procedures. Time includes review of laboratory data, radiology results, discussion with consultants, and monitoring for potential decompensation. Interventions were performed as documented. Discharge Plan Discharge Clinical Impression: Intra-abdominal abscess Patient Disposition: Admitted As Inpatient
--- NOTE | 2021-04-26 17:03 | ECG_ITS ---
Test Reason : ABDOMINAL PAIN Blood Pressure : / mmHG Vent. Rate : 080 BPM Atrial Rate : 080 BPM P-R Int : 124 ms QRS Dur : 070 ms QT Int : 384 ms P-R-T Axes : 052 047 029 degrees QTc Int : 442 ms Normal sinus rhythm with sinus arrhythmia Normal ECG When compared with ECG of 02-APR-2021 20:56, No significant change was found Referred By: Velia Hernandez Electronically Signed By:LIZZ LEE
[2021-04-26 17:40] LABS: MANUAL DIFF FLAG NO
[2021-04-26 17:42] LABS: Basophils Absolute Auto 0.1 X10*3/uL (0.0-0.2); Basophils Percent Auto 0.5 % (0-2); Eosinophils Absolute Auto 0.3 X10*3/uL (0.0-0.4); Eosinophils Percent Auto 1.6 % (0-4); Hematocrit 37.8 % (37-47); Hemoglobin 12.8 g/dl (12.0-16.0); Imm Gran Abs Auto 0.11 X10*3/uL (0.00-0.03); Imm Gran Pct Auto 0.7 % (0.0-0.4); Lymphocytes Absolute Auto 3.5 X10*3/uL (1.2-4.9); Lymphocytes Percent Auto 21.1 % (20-40); Mean Corpuscular HGB Conc 33.9 g/dl (31.0-35.0); Mean Corpuscular Hemoglobin 25.4 pg (27.0-33.0); Mean Corpuscular Volume 75.1 fL (80-98); Mean Platelet Volume 11.1 fL (9.4-12.3); Monocytes Absolute Auto 0.7 X10*3/uL (0.1-1.2); Monocytes Percent Auto 4.4 % (2-11); Neutrophils Percent Auto 71.7 % (45-73); Platelet Count 322 X10*3/uL (160-400); Red Blood Count 5.03 X10*6/uL (4.20-5.50); Red Cell Distribution Width 15.1 % (11.0-16.0); White Blood Count 16.7 X10*3/uL (4.8-10.8)
[2021-04-26 17:45] VITALS: BP 126/61; PULSE 85; RESP 20; TEMP 36.9; O2SAT 98
[2021-04-26] MEDS: 0.9 % Sodium Chloride 1,000 ML 999 ML IVCONT ×2 (17:53→18:36)
[2021-04-26 17:57] LABS: Lactic Acid 1.1 mmol/L (0.5-2.0)
[2021-04-26] MEDS: Piperacillin Sodium/Tazobactam 3.375 GM in 0.9 % Sodium Chloride 50 ML IV (17:59)
[2021-04-26] MEDS: Morphine Sulfate 4 MG/ML CARTRIDGE IVPUSH (17:59)
[2021-04-26 18:00] VITALS: BP 124/70; PULSE 82; RESP 18; O2SAT 100
[2021-04-26 18:00] LABS: Partial Thromboplastin Time 36.4 SEC (24.1-38.0)
[2021-04-26] MEDS: ondansetron HCL 4 MG/2 ML VIAL IVPUSH (18:00)
[2021-04-26 18:01] LABS: Alanine Aminotransferase 11 U/L (0-31); Albumin Level 3.9 g/dL (3.5-5.0); Alkaline Phosphatase 105 U/L (39-117); Anion Gap 14 (12-20); Aspartate Amino Transferase 13 U/L (5-31); Bilirubin Direct 0.2 mg/dL (0.0-0.5); Bilirubin Total 0.4 mg/dL (0.0-1.0); Blood Urea Nitrogen 7 mg/dL (9-16); Calcium 9.6 mg/dL (8.4-10.2); Carbon Dioxide 24 mmol/L (22-29); Chloride 105 mmol/L (96-108); Creatinine Clr Calc Pharmacy 97.1; Estimated Glomerular Filt Rate > 60; Glucose Random 212 mg/dL (60-115); Lipase 42 U/L (8-78); Potassium 4.1 mmol/L (3.3-5.1); Sodium 139 mmol/L (135-145)
--- NOTE | 2021-04-26 18:14 | PHA.MEDREC ---
Pharmacy Consult ? Medication Reconciliation Pharmacy has completed the medication reconciliation. SPOKE WITH PATIENT IN ED.
[2021-04-26] MEDS: metroNIDAZOLE/NS 500 MG/100 ML PIGGYBACK 100 MG IV (18:37)
--- NOTE | 2021-04-26 19:25 | PC.NURSE ---
This RN at bedside to place new PIV per pt request. Pt endorses unbearable pain at R AC PIV site, states that last nurse put it in wrong. Attempted to educate pt that blood return and ability to flush typically indicates an effective IV. Pt then stated just put something through there to kill me then, at least then I won't be bothering you anymore. R AC PIV removed, L AC PIV placed successfully, abx and NaCl reattached. Pt endorses ability to tolerate new PIV at this time. Repositioned, blanket provided, lights dimmed, call light placed within reach
[2021-04-26 19:34] LABS: Appearance Urine CLEAR; Color Urine YELLOW; Glucose Urine UA NEG (NEG); Leukocyte Esterase Urine NEG (NEG); Nitrite Urine NEG (NEG); PH 5.5 (5.0-8.0); Urine Blood NEG (NEG); Urine Ketones NEG (NEG); Urine Protein NEG (NEG-TRACE)
[2021-04-26 19:37] LABS: UPreg QC Valid YES; Urine Pregnancy NEGATIVE (NEGATIVE)
[2021-04-26] MEDS: iohexoL 350 MG/ML 100 ML INFUS..BTL IV (19:40)
[2021-04-26] MEDS: HYDROmorphone HCl 2 MG/ML VIAL IVPUSH ×2 (20:11→21:22)
[2021-04-26 20:20] VITALS: BP 142/91; PULSE 99; RESP 16; TEMP 36.9; O2SAT 98
[2021-04-26 20:53] LABS: INTERNATIONAL NORM RATIO 1.1 (0.9-1.1); Prothrombin Time 12.2 SEC (9.9-13.0)
[2021-04-26 21:48] LABS: COVID-19 Test Negative (Negative); IDNOW Serial# 08D9AD1C
[2021-04-27] VITALS (7 sets, daily range): BP systolic 99–125; BP diastolic 58–88; PULSE 84–94; RESP 18; TEMP 36.3–36.9; O2SAT 96–99; BMI 37.0
[2021-04-27] MEDS: levoFLOXacin/D5W 500 MG/100 ML PIGGYBACK 100 MG IV ×2 (00:46→22:24)
[2021-04-27 01:13] LABS: Glucose, Whole Blood 215 mg/dL (60-115)
[2021-04-27] MEDS: 0.9 % Sodium Chloride 1,000 ML 100 ML IVCONT ×3 (01:53→22:24)
[2021-04-27] MEDS: HYDROmorphone HCl 0.5 MG/0.5 ML SYRINGE IVPUSH ×5 (03:13→23:00)
[2021-04-27 05:36] LABS: Hemoglobin 11.1 g/dl (12.0-16.0); Mean Corpuscular HGB Conc 33.6 g/dl (31.0-35.0); Mean Corpuscular Hemoglobin 25.4 pg (27.0-33.0); Mean Corpuscular Volume 75.5 fL (80-98); Mean Platelet Volume 11.6 fL (9.4-12.3); Platelet Count 253 X10*3/uL (160-400); Red Blood Count 4.37 X10*6/uL (4.20-5.50); White Blood Count 18.3 X10*3/uL (4.8-10.8)
[2021-04-27 06:04] LABS: Anion Gap 12 (12-20); Blood Urea Nitrogen 6 mg/dL (9-16); Calcium 8.2 mg/dL (8.4-10.2); Carbon Dioxide 21 mmol/L (22-29); Chloride 109 mmol/L (96-108); Creatinine Clr Calc Pharmacy 119.1; Estimated Glomerular Filt Rate > 60; Glucose Random 225 mg/dL (60-115); Sodium 138 mmol/L (135-145)
[2021-04-27 07:17] LABS: Glucose, Whole Blood 207 mg/dL (60-115)
[2021-04-27] MEDS: Insulin Lispro 100 UNIT/ML 3 ML VIAL SUBCUT ×3 (08:21→21:05)
[2021-04-27] MEDS: 0.9 % Sodium Chloride Flush 3 ML SYRINGE IVFLUSH ×2 (08:23→21:10)
--- NOTE | 2021-04-27 08:35 | P.HPGS_ITS ---
History of Present Illness History of Present Illness Date of Service: 04/27/21 <Mitra Cardenas PA-C - Last Filed: 04/27/21 09:04> 04/27/21 <Kaushik Gómez MD - Last Filed: 04/27/21 13:17> Chief complaint: Sigmoid Abscess <YOMAIRA Peterson Last Filed: 04/27/21 09:04> Narrative: Mckenzie Quiñonez is a 45 year old female who presented to the ED for pain in the lower back/pelvic area. The pain began several days earlier, last week. She had been in contact with the office/bonderizer surgeon who urged her to seek care in the ED. The pain finally became so severe she could no longer tolerate it at home and presented for evaluation. It was associated with painful urination and anorexia. The patient was previously admitted on 03/31/21 for a diverticular abscess in the pelvis which was borderline in size. Drainage was therefore not performed and she was treated with IV antibiotics with improvement. She was subsequently readmitted on 04/15/21 for sigmoid diverticulitis with abscess in the same location where she underwent CT guided drainage. Only a small amount was aspirated at that time and no drain was placed. She improved with IV antibiotics following the drainage and was discharged to home on 04/18/21. Work up in the ED included a CT scan which demonstrated a persistent fluid collection with air-fluid level low in the pelvis adjacent to the sigmoid colon this collection was present on prior studies. This was the collection previously aspirated, which has not substantially changed in size and measures 5 cm AP by 4 cm transverse. No new collection demonstrated. She also has a leukocytosis of 18.3. <Mitra Cardenas PA-C - Last Filed: 04/27/21 09:04> Review of Systems Constitutional: Constitutional: Denies chills and Denies fever(s) <YOMAIRA Peterson Last Filed: 04/27/21 09:04> Cardiovascular: Cardiovascular: Denies chest pain and Denies dyspnea <YOMAIRA Peterson Last Filed: 04/27/21 09:04> Respiratory: Respiratory: Denies dyspnea <YOMAIRA Peterson Last Filed: 04/27/21 09:04> Gastrointestinal: Gastrointestinal: Reports as per HPI, Denies change in stool character, Denies nausea and Denies vomiting <Mitra Cardenas PA-C - Last Filed: 04/27/21 09:04> Genitourinary: Genitourinary: Denies hematuria and Reports dysuria <YOMAIRA Peterson Last Filed: 04/27/21 09:04> Musculoskeletal: Musculoskeletal: Denies numbness <BOOGIE Peterson Last Filed: 04/27/21 09:04> Integumentary/Breasts: Skin/Breast: Denies change in pigmentation and Denies erythema <YOMAIRA Peterson Last Filed: 04/27/21 09:04> Neurologic: Denies focal weakness and Denies numbness <YOMAIRA Peterson Last Filed: 04/27/21 09:04> [facility] Past Medical History Medical History: Medical History B12 deficiency Diabetes type 2, uncontrolled Diabetic nephropathy associated with type 2 diabetes mellitus Diverticulitis of both large and small intestine with perforation and abscess Diverticulitis of large intestine with abscess Dyslipidemia Hirsutism Hypertension Morbid obesity with BMI of 50.0-59.9, adult Sepsis Vitamin D deficiency <YOMAIRA Peterson Last Filed: 04/27/21 09:04> Family History Family History: Family History Father Throat cancer Cirrhosis Mother Diabetes <YOMAIRA Peterson Last Filed: 04/27/21 09:04> Surgical History Surgical History: Surgical History History of ankle surgery Hx of section Hx of umbilical hernia repair <YOMAIRA Peterson Last Filed: 04/27/21 09:04> Social History Social History: Social History Household Members: None Housing: House Do you presently have visiting nurse or other home services: Yes Alcohol intake: never Patient Tobacco Use Status: Current everyday Tobacco user Tobacco use type: Cigarette Cigarette Packs Per Day: 1 Cigarettes Per Day: 20.0 Years Smoked: 30 e-Cigarette/Vaping Use: Never Used Second Hand Smoke Exposure: Yes Use of substances other than those prescribed or required for medical reasons: Yes Substance Use Type: Marijuana Substance Use Frequency: Occasionally Currently Displaying Signs/Symptoms of Drug Intoxication Withdrawal: No Any prior treatment program specific to substance use: No Have you been hit, kicked, punched, or otherwise hurt by someone within the past year? If so, by whom?: No Do you feel safe in your current relationship?: No Is there a partner from a previous relationship who is making you feel unsafe now?: No Are you made to feel afraid or neglected: No Advance Directives: Yes Advance Directives on File: Yes Advance Directives Date on File: 03/31/21 Do you have thoughts of harming others: None Do you have a plan to hurt others: No Plan Recently lost weight without trying: No How much weight loss: Not applicable Eating poorly because of decreased appetite: No Nutrition screen score: 0 Nutrition Risks: No Nutritional Risk Patient : No : No Poor oral hygiene: No service: No Current occupational status: unemployed <Mitra Cardenas PA-C - Last Filed: 04/27/21 09:04> Meds Allergies/Adverse reactions: Allergies Allergy/AdvReac Type Severity Reaction Status Date / Time latex [LATEX] Allergy Mild RASH Verified 04/01/21 10:38 <YOMAIRA Peterson Last Filed: 04/27/21 09:04> Active Medications: Current Medications Acetaminophen (Acetaminophen 325 Mg Tablet) 650 mg PO Q4H PRN PRN Reason: Fever Atorvastatin Calcium (Atorvastatin Calcium 20 Mg Tablet) 20 mg PO BEDTIME TEMO Dextrose (Dextrose 50 % 25 Gm/50 Ml Vial) 25 gm IVPUSH Q15M PRN; Protocol PRN Reason: per Hypoglycemia Standing Ord. Diphenhydramine HCl (Diphenhydramine Hcl 25 Mg Tablet) 25 mg PO Q4H PRN PRN Reason: itching Fluticasone/Vilanterol (Fluticasone/Vilanterol 100/25 Blst.W.Dev) 1 puff INHALE DAILY TEMO Glucose (Glucose Gel 15 Gm Gel..Gram.) 15 gm PO Q15M PRN; Protocol PRN Reason: per Hypoglycemia Standing Ord. Heparin Sodium (Porcine) (Heparin Sodium,Porcine 5,000 Unit/Ml Vial) 5,000 unit SUBCUT Q8H [facility] Last Admin: 04/27/21 05:39 Dose: Not Given Documented by: Hydromorphone HCl (Hydromorphone Hcl 0.5 Mg/0.5 Ml Syringe) 0.5 mg IVPUSH Q3H PRN; Protocol PRN Reason: Pain, Moderate (Pain Scale 4-6 Last Admin: 04/27/21 03:13 Dose: 0.5 mg Documented by: Sodium Chloride (Ns) 1,000 mls @ 100 mls/hr IVCONT .Q10H [facility] Last Admin: 04/27/21 01:53 Dose: 100 mls/hr Documented by: Levofloxacin (Levaquin) 500 mg in 100 mls @ 100 mls/hr IV Q24H [facility] Last Infusion: 04/27/21 01:54 Dose: Infused Documented by: Promethazine HCl 12.5 mg/ (Sodium Chloride) 50.5 mls @ 202 mls/hr IV RQ4H PRN PRN Reason: nausea Last Infusion: 04/26/21 23:46 Dose: Infused Documented by: Insulin Human Lispro (Insulin Lispro 100 Unit/Ml 3 Ml Vial) 0 unit SUBCUT QIDACHS [facility]; Protocol Last Admin: 04/27/21 08:21 Dose: 8 unit Documented by: Montelukast Sodium (Montelukast Sodium 10 Mg Tablet) 10 mg PO BEDTIME [facility] Nicotine (Nicotine 21 Mg Patch.Td24) 21 mg TRANSDERMA RDAILY [facility] Last Admin: 04/27/21 08:23 Dose: Not Given Documented by: Sodium Chloride (0.9 % Sodium Chloride Flush 3 Ml Syringe) 3 ml IVFLUSH QSHIFT [facility] Last Admin: 04/27/21 08:23 Dose: 3 ml Documented by: <Mitra Cardenas PA-C - Last Filed: 04/27/21 09:04> Home medications: Home Medications Medication Instructions Recorded Confirmed Last Taken Type ascorbic acid (vitamin C) 500 mg 500 mg PO DAILY 03/31/21 04/26/21 04/25/21 History tablet (Vitamin C) biotin 1,000 mcg chewable tablet 1,000 mcg PO DAILY 03/31/21 04/26/21 04/25/21 History cyanocobalamin (vitamin B-12) 1,000 mcg PO DAILY 03/31/21 04/26/21 04/25/21 History 1,000 mcg tablet fluticasone 250 mcg-salmeterol 50 1 puff INHALATION BID 03/31/21 04/26/2110/11 History mcg/dose blistr powdr for inhalation (Advair Diskus) cholecalciferol (vitamin D3) 25 25 mcg PO DAILY 04/15/21 04/26/21 04/25/21 History mcg (1,000 unit) tablet (Vitamin D3) ibuprofen 200 mg tablet 200 mg PO Q6H PRN 04/15/21 04/26/21 04/14/21 History montelukast 10 mg tablet 1 tab PO BEDTIME 04/15/21 04/26/21 04/25/21 History multivitamin 1 tab PO DAILY 04/15/21 04/26/21 04/25/21 History blood sugar diagnostic (FreeStyle 04/26/21 04/26/21 04/25/21 History Test) fexofenadine 180 mg tablet 1 tab PO DAILY PRN 04/26/21 04/26/21 Unknown History insulin lispro 100 unit/mL 1 sliding scale dose SUBCUT TIDAC 04/26/21 04/26/21 Unknown History subcutaneous cartridge (Humalog U-100 Insulin) <YOMAIRA Peterson Last Filed: 04/27/21 09:04> Physical Exam Vital Signs: Vital Signs: Last Vital Signs Temp 97.5 F 04/27/21 07:25 Pulse 90 04/27/21 07:25 Resp 18 04/27/21 07:25 BP 107/64 04/27/21 07:25 Pulse Ox 97 04/27/21 07:25 Body Mass Index 37.0 <YOMAIRA Peterson Last Filed: 04/27/21 09:04> Const: General: no acute distress and alert <YOMAIRA Peterson Last Filed: 04/27/21 09:04> Orientation/consciousness: patient oriented x3 <YOMAIRA Peterson Last Filed: 04/27/21 09:04> Resp: Effort & Inspection: normal respiratory effort <Mitra Vazquezdeau YOMAIRA Garrison Last Filed: 04/27/21 09:04> GI: Inspection: No distended <Mitra Vazquezdeau YOMAIRA Garrison Last Filed: 04/27/21 09:04> Palpation (GI): Soft to palpation, Tenderness to palpation present (GI) suprapubicly, no guarding and not rigid <Mitra GastonBRUNILDA pantojaFederico Garrison Last Filed: 04/27/21 09:04> Percussion: Yes normal to percussion <Mitra Vazquezdeau YOMAIRA Garrison Last Filed: 04/27/21 09:04> Back/Spine/Pelvis: Other: tenderness in left lower back/left flank <Mitra GastonBRUNILDA pantojaFederico Garrison Last Filed: 04/27/21 09:04> Skin: General skin exam: no rashes or lesions noted <Mitra GastonBRUNILDA pantojaFederico Garrison Filed: 04/27/21 09:04> Neuro: General: patient oriented x3 <Mitra Vazquezdeau YOMAIRA Garrison Last Filed : 04/27/21 09:04> Extrem: General: Yes no clubbing, cyanosis or edema <Mitra Gastonscarlett YOMAIRA [place] Filed: 04/27/21 09:04> Results Results Labs: Short CBC 04/26/21 04/27/21 Range/Units 17:22 05:25 WBC 16.7 H 18.3 H (4.8-10.8) X10*3/uL Hgb 12.8 D 11.1 L (12.0-16.0) g/dl Hct 37.8 D 33.0 L (37-47) % Plt Count 322 253 (160-400) X10*3/uL BMP 04/26/21 04/27/21 17:22 05:25 Sodium 139 138 Potassium 4.1 4.0 Chloride 105 109 H Carbon Dioxide 24 21 L BUN 7 L 6 L Creatinine 0.85 0.71 Calcium 9.6 8.2 L D Liver Function 04/26/21 Range/Units 17:22 Total Bilirubin 0.4 (0.0-1.0) mg/dL Direct Bilirubin 0.2 (0.0-0.5) mg/dL AST 13 (5-31) U/L ALT 11 (0-31) U/L Alkaline Phosphatase 105 (39-117) U/L Albumin 3.9 (3.5-5.0) g/dL Urine 04/26/21 04/26/21 Range/Units 19:21 19:21 Urine Color YELLOW Urine Appearance CLEAR Urine pH 5.5 (5.0-8.0) Ur Specific [place] 1.020 (1.005-1.025) Urine Protein NEG (NEG-TRACE) MG/DL Urine Glucose (UA) NEG (NEG) MG/DL Urine Test NEGATIVE (NEGATIVE) <Mitra Cardenas PA-C - Last Filed: 04/27/21 09:04> Assessment and Plan (1) Diverticulitis of intestine with abscess: Status: Acute <Mitra Cardenas PA-C - Last Filed: 04/27/21 09:04> Patient seen and examined Persistence of pelvic fluid collection Aspirated previously but no drain left in place With scheduled for repeat CT drainage IV antibiotics Abdominal exam benign No fever Looks comfortable except for anxiety Seen and examined- agree with BRUNILDA Cardenas <Kaushik Gómez MD - Last Filed: 04/27/21 13:17> Ms. Quiñonez is a 45 year old female with multiple admissions for diverticular abscess who presented with the ED with pelvic/low back pain. Her CT scan redemonstrates the persistent fluid collection with air-fluid level in the low pelvis adjacent to the sigmoid colon. This appears to be the collection previously aspirated, which has not substantially changed in size and measures 5 cm AP by 4 cm transversely. I have therefore ordered for her to undergo CT drainage with IR, hopefully with drain placement. In the meantime, she has been started on IV levaquin/flagyl. She is NPO temporarily for the drainage and on IVF. She otherwise has a benign abdominal exam and is nontoxic appearing. If the drainage is unable to be performed/unsuccessful or she has persistent pain, discussed that surgical intervention for resection of the diseased segment of bowel would be the next step. She understands and is comfortable with the plan. <Mitra Cardenas PA-C - Last Filed: 04/27/21 09:04> Quality Stroke Does the patient have a stroke diagnosis?: No <Mitra Cardenas PA-C - Last Filed: 04/27/21 09:04> VTE Prior VTE?: No <Mitra Cardenas PA-C - Last Filed: 04/27/21 09:04> VTE Risk Level:: Surgical - moderate <Mitra Cardenas PA-C - Last Filed: 04/27/21 09:04> VTE Device Contraindication: N/A - Device Ordered <Mitra Cardenas PA-C - Last Filed: 04/27/21 09: 04> VTE Drug Contraindication: Treatment Not Indicated (CT drainage today) <Mitra Cardenas PA-C - Last Filed: 04/27/21 09:04> Procedures Date of Service Date of Service: 04/27/21 <Mitra Cardenas PA-C - Last Filed: 04/27/21 09:04>
[2021-04-27] MEDS: Fluticasone/Vilanterol 100/25 BLST.W.DEV 1 PUFF INHALE (09:40)
[2021-04-27] MEDS: metroNIDAZOLE/NS 500 MG/100 ML PIGGYBACK 100 MG IV ×3 (09:41→21:06)
[2021-04-27 09:50] LABS: MANUAL DIFF FLAG NO
[2021-04-27 09:55] LABS: Basophils Absolute Auto 0.1 X10*3/uL (0.0-0.2); Basophils Percent Auto 0.3 % (0-2); Eosinophils Absolute Auto 0.1 X10*3/uL (0.0-0.4); Eosinophils Percent Auto 0.7 % (0-4); Hematocrit 31.9 % (37-47); Hemoglobin 10.7 g/dl (12.0-16.0); Imm Gran Abs Auto 0.11 X10*3/uL (0.00-0.03); Imm Gran Pct Auto 0.7 % (0.0-0.4); Lymphocytes Absolute Auto 2.4 X10*3/uL (1.2-4.9); Lymphocytes Percent Auto 14.6 % (20-40); Mean Corpuscular HGB Conc 33.5 g/dl (31.0-35.0); Mean Corpuscular Hemoglobin 25.4 pg (27.0-33.0); Mean Corpuscular Volume 75.6 fL (80-98); Mean Platelet Volume 11.5 fL (9.4-12.3); Monocytes Absolute Auto 0.8 X10*3/uL (0.1-1.2); Monocytes Percent Auto 4.6 % (2-11); Neutrophils Percent Auto 79.1 % (45-73); Platelet Count 260 X10*3/uL (160-400); Red Blood Count 4.22 X10*6/uL (4.20-5.50); Red Cell Distribution Width 15.1 % (11.0-16.0); White Blood Count 16.4 X10*3/uL (4.8-10.8)
[2021-04-27 11:16] LABS: Glucose, Whole Blood 193 mg/dL (60-115)
[2021-04-27] MEDS: Ketorolac Tromethamine 15 MG/ML VIAL 30 MG IVPUSH (11:17)
--- NOTE | 2021-04-27 16:06 | PM.EVENT ---
Event Note Date of Service: 04/27/21 Event Note: appears more calm and comfortable no fever stable VS does not appear septic abd soft, minimal tenderness lower abd as per IR - unable to do CT drainage today due to tight schedule; will be done tomorrow explained to pt - she says she understands
[2021-04-27 17:10] LABS: Glucose, Whole Blood 150 mg/dL (60-115)
[2021-04-27 20:05] LABS: Glucose, Whole Blood 192 mg/dL (60-115)
[2021-04-27] MEDS: Atorvastatin Calcium 20 MG TABLET PO (21:05)
[2021-04-27] MEDS: diphenhydrAMINE HCL 25 MG TABLET PO (23:00)
[2021-04-28] VITALS (10 sets, daily range): BP systolic 119–139; BP diastolic 64–88; PULSE 79–91; RESP 16–18; TEMP 36.2–36.9; O2SAT 95–98
[2021-04-28] MEDS: metroNIDAZOLE/NS 500 MG/100 ML PIGGYBACK 100 MG IV ×3 (03:28→21:18)
[2021-04-28] MEDS: diphenhydrAMINE HCL 25 MG TABLET PO ×4 (03:38→21:18)
[2021-04-28] MEDS: HYDROmorphone HCl 0.5 MG/0.5 ML SYRINGE IVPUSH ×5 (03:38→22:57)
[2021-04-28 06:10] LABS: MANUAL DIFF FLAG NO
[2021-04-28 06:25] LABS: Basophils Percent Auto 0.2 % (0-2); Eosinophils Absolute Auto 0.1 X10*3/uL (0.0-0.4); Eosinophils Percent Auto 0.4 % (0-4); Hemoglobin 9.3 g/dl (12.0-16.0); Imm Gran Abs Auto 0.06 X10*3/uL (0.00-0.03); Imm Gran Pct Auto 0.5 % (0.0-0.4); Lymphocytes Absolute Auto 1.9 X10*3/uL (1.2-4.9); Lymphocytes Percent Auto 14.7 % (20-40); Mean Corpuscular HGB Conc 33.2 g/dl (31.0-35.0); Mean Corpuscular Hemoglobin 24.9 pg (27.0-33.0); Mean Corpuscular Volume 75.1 fL (80-98); Mean Platelet Volume 11.4 fL (9.4-12.3); Monocytes Absolute Auto 0.7 X10*3/uL (0.1-1.2); Neutrophils Absolute Auto 10.3 X10*3/uL (2.0-8.3); Neutrophils Percent Auto 79.2 % (45-73); Platelet Count 232 X10*3/uL (160-400); Red Blood Count 3.73 X10*6/uL (4.20-5.50); Red Cell Distribution Width 14.9 % (11.0-16.0)
[2021-04-28 07:15] LABS: Glucose, Whole Blood 166 mg/dL (60-115)
[2021-04-28] MEDS: Insulin Lispro 100 UNIT/ML 3 ML VIAL SUBCUT ×2 (07:51→17:01)
--- NOTE | 2021-04-28 08:43 | MHC.CM.PN ---
CM met with Patient at bedside. Patient lives alone in an apartment and is functionally independent ;Home/no services is the goal for dc. CM has initiated and will follow for dc planning. Patient has no family support and may need assist with transport to home. PCP is Dr. Diogo Wright.
--- NOTE | 2021-04-28 09:20 | MHC.CM.PN ---
IR UNABLE TO COMPLETE PROCEDURE YESTERDAY DUE TO SCHEDULING, PT IS CURRENTLY OFF UNIT IN IR FOR CT DRAINAGE, NO PLAN FOR D/C AT THIS TIME, CM WILL CONT TO FOLLOW.
[2021-04-28] MEDS: Acetaminophen 325 MG TABLET 650 MG PO (10:01)
[2021-04-28] MEDS: oxyCODONE HCl Immed Release 5 MG TABLET PO (10:01)
--- NOTE | 2021-04-28 10:53 | P.PNGS_ITS ---
Subjective Subjective Date of Service: 04/28/21 <Mitra Cardenas PA-C - Last Filed: 04/28/21 10:59> 04/28/21 <Kaushik Gómez MD - Last Filed: 04/28/21 11:56> Interval history: Awaiting drainage today. Continues to have buttocks/low back/pelvic pain. Was asking for food yesterday. <Mitra Cardenas PA-C - Last Filed: 04/28/21 10:59> Physical Exam Vital Signs: Vital Signs: Last Vital Signs Temp 97.9 F 04/28/21 07:02 Pulse 88 04/28/21 07:02 Resp 18 04/28/21 07:02 BP 133/88 04/28/21 07:02 Pulse Ox 98 04/28/21 07:02 Body Mass Index 37.0 <YOMAIRA Peterson Last Filed: 04/28/21 10:59> Const: General: healthy appearing, comfortable and no acute distress <Mitra Cardenas PA-C - Last Filed: 04/28/21 10:59> Orientation/consciousness: patient oriented x3 <Mitra Cardenas PA-C - Last Filed: 04/28/21 10:59> Resp: Effort & Inspection: normal respiratory effort <YOMAIRA Peterson Last Filed: 04/28/21 10:59> GI: Inspection: No distended <Mitra Cardenas PA-C - Last Filed: 04/28/21 10:59> Palpation (GI): Soft to palpation and Tenderness to palpation present (GI) (into left flank/back) suprapubicly <Mitra Cardenas PA-C - Last Filed: 04/28/21 10:59> Percussion: Yes normal to percussion <YOMAIRA Peterson Last Filed: 04/28/21 10:59> Skin: General skin exam: no rashes or lesions noted <YOMAIRA Peterson Last Filed: 04/28/21 10:59> Neuro: General: patient oriented x3 <YOMAIRA Peterson Last Filed: 04/28/21 10:59> Procedures Date of Service Date of Service: 04/28/21 <Mitra Cardenas PA-C - Last Filed: 04/28/21 10:59> Progress Note: A&P Assessment and plan (1) Diverticulitis of intestine with abscess: Status: Acute <Mitra Cardenas PA-C - Last Filed: 04/28/21 10:59> Assessment and Plan: 45 year old female readmitted for diverticular abscess, persistent pelvic fluid collection. Aspirated by radiology last admission 04/15/21 but no drain left in place. Awaiting CT drainage today. Cont IV zosyn, IVF, NPO status for drainage. Further plan dependent on clinical course. If unable to drain, has persistence of pain despite drainage or worsens, discussed need for resection of the diseased segment of colon during this admission. Patient understands. WBC improved this am. <Mitra Cardenas PA-C - Last Filed: 04/28/21 10:59> 45 year old female readmitted for diverticular abscess, persistent pelvic fluid collection. Aspirated by radiology last admission 04/15/21 but no drain left in place. Awaiting CT drainage today. Cont IV zosyn, IVF, NPO status for drainage. Further plan dependent on clinical course. If unable to drain, has persistence of pain despite drainage or worsens, discussed need for resection of the diseased segment of colon during this admission. Patient understands. WBC improved this am. She describes some pain on the lower back near the buttocks No fever Abdomen soft and benign WBC better For CT drainage today -discussed with Dr. Gomez, to leave drain in place Looks well otherwise Seen and examined - agree with BRUNILDA Cardenas <Kaushik Gómez MD - Last Filed: 04/28/21 11:56> Fall Risk Details Current Medications: Current Medications Acetaminophen (Acetaminophen 325 Mg Tablet) 650 mg PO Q4H PRN PRN Reason: Fever Last Admin: 04/28/21 10:01 Dose: 650 mg Documented by: Atorvastatin Calcium (Atorvastatin Calcium 20 Mg Tablet) 20 mg PO BEDTIME [facility]O Last Admin: 04/27/21 21:05 Dose: 20 mg Documented by: Dextrose (Dextrose 50 % 25 Gm/50 Ml Vial) 25 gm IVPUSH Q15M PRN; Protocol PRN Reason: per Hypoglycemia Standing Ord. Diphenhydramine HCl (Diphenhydramine Hcl 25 Mg Tablet) 25 mg PO Q4H PRN PRN Reason: itching Last Admin: 04/28/21 07:51 Dose: 25 mg Documented by: Fluticasone/Vilanterol (Fluticasone/Vilanterol 100/25 Blst.W.Dev) 1 puff INHALE DAILY COUNTS INCLUDE 234 BEDS AT THE [facility] Last Admin: 04/27/21 09:40 Dose: 1 puff Documented by: Glucose (Glucose Gel 15 Gm Gel..Gram.) 15 gm PO Q15M PRN; Protocol PRN Reason: per Hypoglycemia Standing Ord. Heparin Sodium (Porcine) (Heparin Sodium,Porcine 5,000 Unit/Ml Vial) 5,000 unit SUBCUT Q8H [facility]S [facility]CLUDE 234 BEDS AT THE [facility] Last Admin: 04/28/21 05:01 Dose: Not Given Documented by: Hydromorphone HCl (Hydromorphone Hcl 0.5 Mg/0.5 Ml Syringe) 0.5 mg IVPUSH Q3H PRN; Protocol PRN Reason: Pain, Moderate (Pain Scale 4-6 Last Admin: 04/28/21 07:51 Dose: 0.5 mg Documented by: Sodium Chloride (Ns) 1,000 mls @ 100 mls/hr IVCONT .Q10H COUNTS INCLUDE 234 BEDS AT THE [facility] Last Infusion: 04/28/21 08:32 Dose: 100 mls/hr Documented by: Levofloxacin (Levaquin) 500 mg in 100 mls @ 100 mls/hr IV Q24H COUNTS INCLUDE 234 BEDS AT THE [facility] Last Infusion: 04/27/21 23:30 Dose: Infused Documented by: Promethazine HCl 12.5 mg/ (Sodium Chloride) 50.5 mls @ 202 mls/hr IV RQ4H PRN PRN Reason: nausea Last Infusion: 04/27/21 20:20 Dose: Infused Documented by: Metronidazole (Flagyl) 500 mg in 100 mls @ 100 mls/hr IV Q6H [facility]S INCLUDE 234 BEDS AT THE [facility] Last Admin: 04/28/21 10:06 Dose: Not Given Documented by: Insulin Human Lispro (Insulin Lispro 100 Unit/Ml 3 Ml Vial) 0 unit SUBCUT QIDACHS [facility]S [facility]CLUDE 234 BEDS AT THE [facility]; Protocol Last Admin: 04/28/21 07:51 Dose: 4 unit Documented by: Montelukast Sodium (Montelukast Sodium 10 Mg Tablet) 10 mg PO BEDTIME COUNTS INCLUDE 234 BEDS AT THE [facility] Last Admin: 04/27/21 21:15 Dose: Not Given Documented by: Nicotine (Nicotine 21 Mg Patch.Td24) 21 mg TRANSDERMA RDAILY COUNTS [facility]CLUDE 234 BEDS AT THE [facility] Last Admin: 04/28/21 07:52 Dose: Not Given Documented by: Oxycodone HCl (Oxycodone Hcl Immed Release 5 Mg Tablet) 5 mg PO Q4H PRN PRN Reason: Pain, Moderate (Pain Scale 4-6 Last Admin: 04/28/21 10:01 Dose: 5 mg Documented by: Sodium Chloride (0.9 % Sodium Chloride Flush 3 Ml Syringe) 3 ml IVFLUSH QSHIFT COUNTS INCLUDE 234 BEDS AT THE [facility] Last Admin: 04/28/21 07:52 Dose: Not Given Documented by: <Mitra Cardenas PA-C - Last Filed: 04/28/21 10:59> Time Spent With Patient Time: Total time spent is greater than 50% in coordination of care (as documented) at patient's floor/unit and/or counseling patient: <Mitra Cardenas PA-C - Last Filed: 04/28/21 10:59> Time with patient: less than 15 minutes <Mitra Cardenas PA-C - Last Filed: 04/28/21 10:59> Quality Stroke Does the patient have a stroke diagnosis?: No <Mitra Cardenas PA-C - Last Filed: 04/28/21 10:59> VTE Prior VTE?: No <Mitra Cardenas PA-C - Last Filed: 04/28/21 10:59> VTE Risk Level:: Surgical - moderate <Mitra Cardenas PA-C - Last Filed: 04/28/21 10:59> VTE Device Contraindication: N/A - Device Ordered <Mitra Cardenas PA-C - Last Filed: 04/28/21 10:59> VTE Drug Contraindication: Treatment Not Indicated (CT drainage today) <Mitra Cardenas PA-C - Last Filed: 04/28/21 10:59>
--- NOTE | 2021-04-28 12:28 | HO.RADPN ---
RADIOLOGY Narrative Narrative: 6.3 fr left pelvic abscess drain placed. 50ml purulent material aspirated. specimen sent for gram stain and culture.
[2021-04-28 14:24] LABS: Glucose, Whole Blood 139 mg/dL (60-115)
--- NOTE | 2021-04-28 16:18 | PM.EVENT ---
Event Note Date of Service: 04/28/21 Event Note: Patient seen on afternoon rounds Underwent successful CT drainage, large amounts of pus drained, pigtail drain left in place Looks comfortable Stable vital signs Drain exiting from the lumbar area the buttock, purulent fluid seen Continue IV antibiotics Doing well Pain management
[2021-04-28 16:43] LABS: Glucose, Whole Blood 181 mg/dL (60-115)
[2021-04-28] MEDS: 0.9 % Sodium Chloride 1,000 ML 100 ML IVCONT (19:12)
[2021-04-28 20:03] LABS: Glucose, Whole Blood 124 mg/dL (60-115)
[2021-04-28] MEDS: Atorvastatin Calcium 20 MG TABLET PO (21:18)
[2021-04-28] MEDS: 0.9 % Sodium Chloride Flush 3 ML SYRINGE IVFLUSH (21:22)
[2021-04-28] MEDS: levoFLOXacin/D5W 500 MG/100 ML PIGGYBACK 100 MG IV (22:20)
[2021-04-29] VITALS (8 sets, daily range): BP systolic 111–153; BP diastolic 67–93; PULSE 63–85; RESP 16–19; TEMP 36.1–37.6; O2SAT 95–99
[2021-04-29] MEDS: metroNIDAZOLE/NS 500 MG/100 ML PIGGYBACK 100 MG IV ×4 (03:27→21:06)
[2021-04-29 04:44] LABS: MANUAL DIFF FLAG NO
[2021-04-29 04:45] LABS: Basophils Percent Auto 0.4 % (0-2); Eosinophils Absolute Auto 0.2 X10*3/uL (0.0-0.4); Eosinophils Percent Auto 1.5 % (0-4); Hematocrit 28.8 % (37-47); Imm Gran Abs Auto 0.03 X10*3/uL (0.00-0.03); Imm Gran Pct Auto 0.3 % (0.0-0.4); Lymphocytes Absolute Auto 2.8 X10*3/uL (1.2-4.9); Lymphocytes Percent Auto 28.4 % (20-40); Mean Corpuscular HGB Conc 34.7 g/dl (31.0-35.0); Mean Corpuscular Hemoglobin 25.8 pg (27.0-33.0); Mean Corpuscular Volume 74.4 fL (80-98); Mean Platelet Volume 11.1 fL (9.4-12.3); Monocytes Absolute Auto 0.6 X10*3/uL (0.1-1.2); Monocytes Percent Auto 5.7 % (2-11); Neutrophils Absolute Auto 6.2 X10*3/uL (2.0-8.3); Neutrophils Percent Auto 63.7 % (45-73); Platelet Count 225 X10*3/uL (160-400); Red Blood Count 3.87 X10*6/uL (4.20-5.50); Red Cell Distribution Width 14.8 % (11.0-16.0); White Blood Count 9.7 X10*3/uL (4.8-10.8)
[2021-04-29] MEDS: 0.9 % Sodium Chloride 1,000 ML 100 ML IVCONT ×2 (06:17→21:06)
[2021-04-29 07:31] LABS: Glucose, Whole Blood 140 mg/dL (60-115)
[2021-04-29] MEDS: diphenhydrAMINE HCL 25 MG TABLET PO ×3 (08:20→21:25)
[2021-04-29] MEDS: HYDROmorphone HCl 0.5 MG/0.5 ML SYRINGE IVPUSH ×4 (08:20→21:25)
[2021-04-29] MEDS: Fluticasone/Vilanterol 100/25 BLST.W.DEV 1 PUFF INHALE (08:57)
[2021-04-29 11:32] LABS: Glucose, Whole Blood 176 mg/dL (60-115)
--- NOTE | 2021-04-29 11:52 | PM.PNGS ---
Subjective Subjective Date of Service: 04/29/21 <Mitra Cardenas PA-C - Last Filed: 04/29/21 11:57> 04/29/21 <Kaushik Gómez MD - Last Filed: 04/29/21 14:31> Interval history: Had drainage yesterday- ~50cc purulent drainage aspirated, drain left in place. Feels much better this morning. Still some discomfort near buttock. <Mitra Cardenas PA-C - Last Filed: 04/29/21 11:57> Physical Exam Vital Signs: Vital Signs: Last Vital Signs Temp 97.7 F 04/29/21 08:00 Pulse 75 04/29/21 08:00 Resp 16 04/29/21 08:00 BP 130/85 04/29/21 08:00 Pulse Ox 99 04/29/21 08:00 Body Mass Index 37.0 <Mitra Cardenas PA-C - Last Filed: 04/29/21 11:57> Const: General: comfortable, no acute distress and alert <Mitra Cardenas PA-C - Last Filed: 04/29/21 11:57> Orientation/consciousness: patient oriented x3 <Mitra Cardenas PA-C - Last Filed: 04/29/21 11:57> Resp: Effort & Inspection: normal respiratory effort <YOMAIRA Peterson Last Filed: 04/29/21 11:57> GI: Other: pigtail drain in place, purulent drainage <Mitra Cardenas PA-C - Last Filed: 04/29/21 11:57> Inspection: No distended <Mitra Cardenas PA-C - Last Filed: 04/29/21 11:57> Palpation (GI): Soft to palpation, Tenderness to palpation present (GI) (left buttock near drain) suprapubicly, no guarding and not rigid <YOMAIRA Peterson Last Filed: 04/29/21 11:57> Skin: General skin exam: no rashes or lesions noted <YOMAIRA Peterson Last Filed: 04/29/21 11:57> Neuro: General: patient oriented x3 <YOMAIRA Peterson Last Filed: 04/29/21 11:57> Procedures Date of Service Date of Service: 04/29/21 <Mitra Cardenas PA-C - Last Filed: 04/29/21 11:57> Progress Note: A&P Assessment and plan (1) Diverticulitis of intestine with abscess: Status: Acute <Mitra Cardenas PA-C - Last Filed: 04/29/21 11:57> Assessment and Plan: ?45 year old female readmitted for diverticular abscess, underwent IR drainage yesterday with 50cc purulent fluid aspirated and drain left in place. Feeling improved, clinically appearing well. WBC now normalized. Drain continues with purulent output, keep drain in place. Continue current supportive management of IV zosyn, IVF, clear liquids. Possible advancement of diet later today. Encouraged OOB/ambultion today. Await abscess cultures. Discussed likely d/c to home with drain in place. Dispo planning, will need VNA. <Mitra Cardenas PA-C - Last Filed: 04/29/21 11:57> ?45 year old female readmitted for diverticular abscess, underwent IR drainage yesterday with 50cc purulent fluid aspirated and drain left in place. Feeling improved, clinically appearing well. WBC now normalized. Drain continues with purulent output, keep drain in place. Continue current supportive management of IV zosyn, IVF, clear liquids. Possible advancement of diet later today. Encouraged OOB/ambultion today. Await abscess cultures. Discussed likely d/c to home with drain in place. Dispo planning, will need VNA. Feels much better after CT drainage Drain in purulent fluid although volume was decreased She has been ambulating and feels much improved Abdomen remained soft No fever Looks well Plan to slowly advance diet tomorrow Continue IV antibiotics Await cultures Seen and examined - agree with BRUNILDA Cardenas <Kaushik Gómez MD - Last Filed: 04/29/21 14:31> Fall Risk Details Current Medications: Current Medications Acetaminophen (Acetaminophen 325 Mg Tablet) 650 mg PO Q4H PRN PRN Reason: Fever Last Admin: 04/28/21 10:01 Dose: 650 mg Documented by: Atorvastatin Calcium (Atorvastatin Calcium 20 Mg Tablet) 20 mg PO BEDTIME [facility] Last Admin: 04/28/21 21:18 Dose: 20 mg Documented by: Dextrose (Dextrose 50 % 25 Gm/50 Ml Vial) 25 gm IVPUSH Q15M PRN; Protocol PRN Reason: per Hypoglycemia Standing Ord. Diphenhydramine HCl (Diphenhydramine Hcl 25 Mg Tablet) 25 mg PO Q4H PRN PRN Reason: itching Last Admin: 04/29/21 08:20 Dose: 25 mg Documented by: Fluticasone/Vilanterol (Fluticasone/Vilanterol 100/25 Blst.W.Dev) 1 puff INHALE DAILY [facility] Last Admin: 04/29/21 08:57 Dose: 1 puff Documented by: Glucose (Glucose Gel 15 Gm Gel..Gram.) 15 gm PO Q15M PRN; Protocol PRN Reason: per Hypoglycemia Standing Ord. Heparin Sodium (Porcine) (Heparin Sodium,Porcine 5,000 Unit/Ml Vial) 5,000 unit SUBCUT Q8H [facility] Last Admin: 04/29/21 05:50 Dose: Not Given Documented by: Hydromorphone HCl (Hydromorphone Hcl 0.5 Mg/0.5 Ml Syringe) 0.5 mg IVPUSH Q3H PRN; Protocol PRN Reason: Pain, Moderate (Pain Scale 4-6 Last Admin: 04/29/21 08:20 Dose: 0.5 mg Documented by: Sodium Chloride (Ns) 1,000 mls @ 100 mls/hr IVCONT .Q10H [facility] Last Admin: 04/29/21 06:17 Dose: 100 mls/hr Documented by: Levofloxacin (Levaquin) 500 mg in 100 mls @ 100 mls/hr IV Q24H [facility] Last Infusion: 04/28/21 23:31 Dose: Infused Documented by: Promethazine HCl 12.5 mg/ (Sodium Chloride) 50.5 mls @ 202 mls/hr IV RQ4H PRN PRN Reason: nausea Last Infusion: 04/27/21 20:20 Dose: Infused Documented by: Metronidazole (Flagyl) 500 mg in 100 mls @ 100 mls/hr IV Q6H [facility] Last Infusion: 04/29/21 09:25 Dose: Infused Documented by: Insulin Human Lispro (Insulin Lispro 100 Unit/Ml 3 Ml Vial) 0 unit SUBCUT QIDACHS [facility]; Protocol Last Admin: 04/29/21 07:39 Dose: Not Given Documented by: Montelukast Sodium (Montelukast Sodium 10 Mg Tablet) 10 mg PO BEDTIME [facility] Last Admin: 04/28/21 20:20 Dose: Not Given Documented by: Nicotine (Nicotine 21 Mg Patch.Td24) 21 mg TRANSDERMA RDAILY [facility] Last Admin: 04/29/21 08:28 Dose: Not Given Documented by: Oxycodone HCl (Oxycodone Hcl Immed Release 5 Mg Tablet) 5 mg PO Q4H PRN PRN Reason: Pain, Moderate (Pain Scale 4-6 Last Admin: 04/28/21 10:01 Dose: 5 mg Documented by: Sodium Chloride (0.9 % Sodium Chloride Flush 3 Ml Syringe) [facility] Last Admin: 04/29/21 08:16 Dose: Not Given Documented by: <Mitra Cardenas PA-C - Last Filed: 04/29/21 11:57> Time Spent With Patient Time: Total time spent is greater than 50% in coordination of care (as documented) at patient's floor/unit and/or counseling patient: <Mitra Cardenas PA-C - Last Filed: 04/29/21 11:57> Time with patient: 15 - 24 minutes <Mitra Cardenas PA-C - Last Filed: 04/29/21 11:57> Quality Stroke Does the patient have a stroke diagnosis?: No <Mitra Cardenas PA-C - Last Filed: 04/29/21 11:57> VTE Prior VTE?: No <Mitra Cardenas PA-C - Last Filed: 04/29/21 11:57> VTE Risk Level:: Surgical - moderate <Mitra Cardenas PA-C - Last Filed: 04/29/21 11:57> VTE Device Contraindication: N/A - Device Ordered <Mitra Cardenas PA-C - Last Filed: 04/29/21 11:57> VTE Drug Contraindication: Treatment Not Indicated (CT drainage today) <YOMAIRA Peterson Last Filed: 04/29/21 11:57>
[2021-04-29] MEDS: Insulin Lispro 100 UNIT/ML 3 ML VIAL SUBCUT (12:16)
[2021-04-29] MEDS: oxyCODONE HCl Immed Release 5 MG TABLET PO (14:28)
[2021-04-29] MEDS: Acetaminophen 325 MG TABLET 650 MG PO (14:28)
[2021-04-29 16:17] LABS: Glucose, Whole Blood 101 mg/dL (60-115)
[2021-04-29 20:38] LABS: Glucose, Whole Blood 117 mg/dL (60-115)
[2021-04-29] MEDS: Atorvastatin Calcium 20 MG TABLET PO (21:05)
[2021-04-29] MEDS: 0.9 % Sodium Chloride Flush 3 ML SYRINGE IVFLUSH (21:25)
[2021-04-29] MEDS: levoFLOXacin/D5W 500 MG/100 ML PIGGYBACK 100 MG IV (22:31)
[2021-04-30] MEDS: metroNIDAZOLE/NS 500 MG/100 ML PIGGYBACK 100 MG IV ×4 (03:08→20:45)
[2021-04-30] MEDS: HYDROmorphone HCl 0.5 MG/0.5 ML SYRINGE IVPUSH ×5 (03:13→23:52)
[2021-04-30 04:00] VITALS: BP 130/89; PULSE 77; RESP 18; TEMP 36; O2SAT 97
[2021-04-30 07:34] VITALS: BP 131/87; PULSE 61; RESP 18; TEMP 36.4; O2SAT 96
[2021-04-30 07:39] LABS: Glucose, Whole Blood 119 mg/dL (60-115)
--- NOTE | 2021-04-30 08:04 | PM.PNGS ---
Subjective Subjective Date of Service: 04/30/21 <Mitra Cardenas PA-C - Last Filed: 04/30/21 09:50> 04/30/21 <Kaushik Gómez MD - Last Filed: 04/30/21 14:11> Interval history: Feels much better this morning, does not have any of the low back/pelvic pressure she had. Denies pain. Tolerating liquids and wants to eat. Passing flatus and had BM. <Mitra Cardenas PA-C - Last Filed: 04/30/21 09:50> Physical Exam Vital Signs: Vital Signs: Last Vital Signs Temp 97.6 F 04/30/21 07:34 Pulse 61 04/30/21 07:34 Resp 18 04/30/21 07:34 BP 131/87 04/30/21 07:34 Pulse Ox 96 04/30/21 07:34 Body Mass Index 37.0 <Mitra Cardenas PA-C - Last Filed: 04/30/21 09:50> Const: General: healthy appearing, comfortable, no acute distress and alert <Mitra Cardenas PA-C - Last Filed: 04/30/21 09:50> Orientation/consciousness: patient oriented x3 <Mitra Cardenas PA-C - Last Filed: 04/30/21 09:50> Resp: Effort & Inspection: normal respiratory effort <Mitra Cardenas PA-C - Last Filed: 04/30/21 09:50> GI: Inspection: No distended <Mitra Cardenas PA-C - Last Filed: 04/30/21 09:50> Palpation (GI): Soft to palpation and Tenderness to palpation present (GI) (very mild, diffuse) <Mitra Cardenas PA-C - Last Filed: 04/30/21 09:50> Percussion: Yes normal to percussion <YOMAIRA Peterson Last Filed: 04/30/21 09:50> Back/Spine/Pelvis: Other: pigtail drain in place with purulent drainage <YOMAIRA Peterson Last Filed: 04/30/21 09:50> Skin: General skin exam: no rashes or lesions noted <Mitra Cardenas PA-C - Last Filed: 04/30/21 09:50> Neuro: General: patient oriented x3 <Mitra Cardenas PA-C - Last Filed: 04/30/21 09:50> Extrem: General: Yes no clubbing, cyanosis or edema <Mitra Cardenas PA-C - Last Filed: 04/30/21 09:50> Procedures Date of Service Date of Service: 04/30/21 <Mitra Cardenas PA-C - Last Filed: 04/30/21 09:50> Progress Note: A&P Assessment and plan (1) Diverticulitis of intestine with abscess: Status: Acute <Mitra Cardenas PA-C - Last Filed: 04/30/21 09:50> Assessment and Plan: Feels better Mild lower abdominal pain No fever Looks well Tolerating diet Plan to keep in the hospital for longer course of IV antibiotics MANPREET output scanty but purulent Keep MANPREET in place ID consult for antibiotic regimen Doing well overall Seen and examined -agree with BRUNILDA Cardenas <Kaushik Gómez MD - Last Filed: 04/30/21 14:11> Assessment and Plan: Continues to improve symptomatically. Drain continues with purulent output, keep drain in place. Continue IV zosyn- will need longer course of IV abx therapy this time. Await abscess cultures- culture of aspirated fluid 04/13 admission grew 1+ yeast. Will consult ID for input. Advance to low residue diet today. Encouraged OOB/ambulation today. Will likely go home with drain in place given continued purulent drainage and recurrence, will need VNA. <Mitra Cardenas PA-C - Last Filed: 04/30/21 09:50> Fall Risk Details Current Medications: Current Medications Acetaminophen (Acetaminophen 325 Mg Tablet) 650 mg PO Q4H PRN PRN Reason: Fever Last Admin: 04/29/21 14:28 Dose: 650 mg Documented by: Atorvastatin Calcium (Atorvastatin Calcium 20 Mg Tablet) 20 mg PO BEDTIME [facility] Last Admin: 04/29/21 21:05 Dose: 20 mg Documented by: Dextrose (Dextrose 50 % 25 Gm/50 Ml Vial) 25 gm IVPUSH Q15M PRN; Protocol PRN Reason: per Hypoglycemia Standing Ord. Diphenhydramine HCl (Diphenhydramine Hcl 25 Mg Tablet) 25 mg PO Q4H PRN PRN Reason: itching Last Admin: 04/29/21 21:25 Dose: 25 mg Documented by: Fluticasone/Vilanterol (Fluticasone/Vilanterol 100/25 Blst.W.Dev) 1 puff INHALE DAILY [facility] Last Admin: 04/29/21 08:57 Dose: 1 puff Documented by: Glucose (Glucose Gel 15 Gm Gel..Gram.) 15 gm PO Q15M PRN; Protocol PRN Reason: per Hypoglycemia Standing Ord. Heparin Sodium (Porcine) (Heparin Sodium,Porcine 5,000 Unit/Ml Vial) 5,000 unit SUBCUT Q8H [facility] Last Admin: 04/30/21 05:09 Dose: Not Given Documented by: Hydromorphone HCl (Hydromorphone Hcl 0.5 Mg/0.5 Ml Syringe) 0.5 mg IVPUSH Q3H PRN; Protocol PRN Reason: Pain, Moderate (Pain Scale 4-6 Last Admin: 04/30/21 03:13 Dose: 0.5 mg Documented by: Levofloxacin (Levaquin) 500 mg in 100 mls @ 100 mls/hr IV Q24H [facility] Last Infusion: 04/29/21 23:32 Dose: Infused Documented by: Promethazine HCl 12.5 mg/ (Sodium Chloride) 50.5 mls @ 202 mls/hr IV RQ4H PRN PRN Reason: nausea Last Infusion: 04/29/21 22:58 Dose: Infused Documented by: Metronidazole (Flagyl) 500 mg in 100 mls @ 100 mls/hr IV Q6H [facility] Last Infusion: 04/30/21 04:15 Dose: Infused Documented by: Insulin Human Lispro (Insulin Lispro 100 Unit/Ml 3 Ml Vial) 0 unit SUBCUT QIDACHS [facility]; Protocol Last Admin: 04/30/21 07:49 Dose: Not Given Documented by: Montelukast Sodium (Montelukast Sodium 10 Mg Tablet) 10 mg PO BEDTIME [facility] Last Admin: 04/29/21 21:15 Dose: Not Given Documented by: Nicotine (Nicotine 21 Mg Patch.Td24) 21 mg TRANSDERMA RDAILY [facility] Last Admin: 04/29/21 08:28 Dose: Not Given Documented by: Oxycodone HCl (Oxycodone Hcl Immed Release 5 Mg Tablet) 5 mg PO Q4H PRN PRN Reason: Pain, Moderate (Pain Scale 4-6 Last Admin: 04/29/21 14:28 Dose: 5 mg Documented by: Sodium Chloride (0.9 % Sodium Chloride Flush 3 Ml Syringe) 3 ml IVFLUSH QSHIFT [facility] Last Admin: 04/29/21 21:25 Dose: 3 ml Documented by: <Mitra Cardenas PA-C - Last Filed: 04/30/21 09:50> Time Spent With Patient Time: Total time spent is greater than 50% in coordination of care (as documented) at patient's floor/unit and/or counseling patient: <Mitra Cardenas PA-C - Last Filed: 04/30/21 09:50> Time with patient: 15 - 24 minutes <Mitra Cardenas PA-C - Last Filed: 04/30/21 09:50> Quality Stroke Does the patient have a stroke diagnosis?: No <Mitra Cardenas PA-C - Last Filed: 04/30/21 09:50> VTE Prior VTE?: No <Mitra Cardenas PA-C - Last Filed: 04/30/21 09:50> VTE Risk Level:: Surgical - moderate <Mitra Cardenas PA-C - Last Filed: 04/30/21 09:50> VTE Device Contraindication: N/A - Device Ordered <YOMAIRA Peterson Last Filed: 04/30/21 09:50> VTE Drug Contraindication: Treatment Not Indicated (CT drainage today) <YOMAIRA Peterson Last Filed: 04/30/21 09:50>
[2021-04-30] MEDS: 0.9 % Sodium Chloride Flush 3 ML SYRINGE IVFLUSH ×2 (08:22→23:52)
[2021-04-30] MEDS: oxyCODONE HCl Immed Release 5 MG TABLET PO ×2 (08:52→22:00)
--- NOTE | 2021-04-30 11:09 | MHC.CM.PN ---
EM[facility] REVIEWED, PER SURGICAL ANTICIPATE D/C OVER W/E, PT HAS MANPREET DRAIN W/PURULENT DRAINAGE AND WILL NEED VNA, REFERRALS SENT, CM TO CONT TO FOLLOW. D/C PLAN: HOME W/CARE HOME FOR MANPREET DRAIN, PT MAY NEED TRANSPORT HOME
[2021-04-30 11:12] VITALS: BP 119/81; PULSE 67; RESP 18; TEMP 36.2; O2SAT 97
[2021-04-30 11:34] LABS: Glucose, Whole Blood 204 mg/dL (60-115)
[2021-04-30] MEDS: Insulin Lispro 100 UNIT/ML 3 ML VIAL SUBCUT ×2 (12:05→20:44)
--- NOTE | 2021-04-30 14:24 | MHC.CM.PN ---
BLANKET REFERRAL SENT D/T [facility] NOT BEING ABLE TO TAKE PT FOR [facility].
--- NOTE | 2021-04-30 15:00 | MHC.CM.PN ---
Addendum entered by Mara Delong, RN 04/30/21 15:23: [facility] SENT ASDDITIONAL MESSAGE REPORTING THEY ARE UNABLE TO TAKE PT D/T STAFF SHORTAGES. Original Note: [facility] WILLING TO TAKE PT HOWEVER UNABLE TO DO START OF CARE UNTIL Monday05/04/21, CM WILL ASK NSG TO DO MANPREET DRAIN TEACHING.
[2021-04-30 15:17] VITALS: BP 137/89; PULSE 74; RESP 18; TEMP 36.4; O2SAT 100
[2021-04-30 16:10] LABS: Glucose, Whole Blood 99 mg/dL (60-115)
[2021-04-30 19:23] VITALS: BP 146/90; PULSE 67; RESP 18; TEMP 36.1; O2SAT 99
[2021-04-30 20:11] LABS: Glucose, Whole Blood 175 mg/dL (60-115)
[2021-04-30] MEDS: Atorvastatin Calcium 20 MG TABLET PO (20:45)
[2021-04-30 20:47] VITALS: BP 160/84; PULSE 64; RESP 20
--- NOTE | 2021-04-30 21:44 | W.PM.IDCN ---
History of Present Illness Data of Consult Service Date: 04/30/21 Requesting physician: Kaushik Gómez Primary Care Provider: Diogo Wright MD HPI Reason for consult: abdominal abscess She presents with 10/10 abdominal pain,intermittent over last month. She hasa temperature of 102 on admission. She had presented to hospital on 03/31 and 04/15 for abdominal pain and diverticulitis. She has yeast as part of abdominal sung. Review of Systems Review of Systems: Yes all other systems are reviewed and are negative PMFSH Past Medical History Medical History B12 deficiency Diabetes type 2, uncontrolled Diabetic nephropathy associated with type 2 diabetes mellitus Diverticulitis of both large and small intestine with perforation and abscess Diverticulitis of large intestine with abscess Dyslipidemia Hirsutism Hypertension Morbid obesity with BMI of 50.0-59.9, adult Sepsis Vitamin D deficiency Family History Family History Father Throat cancer Cirrhosis Mother Diabetes Family history: reviewed and not pertinent Surgical History Surgical History History of ankle surgery Hx of section Hx of umbilical hernia repair Social History Social History Household Members: None Housing: House Do you presently have visiting nurse or other home services: Yes Alcohol intake: never Patient Tobacco Use Status: Current everyday Tobacco user Tobacco use type: Cigarette Cigarette Packs Per Day: 1 Cigarettes Per Day: 20.0 Years Smoked: 30 e-Cigarette/Vaping Use: Never Used Second Hand Smoke Exposure: Yes Use of substances other than those prescribed or required for medical reasons: Yes Substance Use Type: Marijuana Substance Use Frequency: Occasionally Currently Displaying Signs/Symptoms of Drug Intoxication Withdrawal: No Any prior treatment program specific to substance use: No Have you been hit, kicked, punched, or otherwise hurt by someone within the past year? If so, by whom?: No Do you feel safe in your current relationship?: No Is there a partner from a previous relationship who is making you feel unsafe now?: No Are you made to feel afraid or neglected: No Advance Directives: Yes Advance Directives on File: Yes Advance Directives Date on File: 03/31/21 Do you have thoughts of harming others: None Do you have a plan to hurt others: No Plan Recently lost weight without trying: No How much weight loss: Not applicable Eating poorly because of decreased appetite: No Nutrition screen score: 0 Nutrition Risks: No Nutritional Risk Patient : No : No Poor oral hygiene: No service: No Current occupational status: disabled Meds Allergies Allergy/AdvReac Type Severity Reaction Status Date / Time latex [LATEX] Allergy Mild RASH Verified 04/01/21 10:38 Active Medications: Current Medications Acetaminophen (Acetaminophen 325 Mg Tablet) 650 mg PO Q4H PRN PRN Reason: Fever Last Admin: 04/29/21 14:28 Dose: 650 mg Documented by: Atorvastatin Calcium (Atorvastatin Calcium 20 Mg Tablet) 20 mg PO BEDTIME [facility] Last Admin: 04/30/21 20:45 Dose: 20 mg Documented by: Dextrose (Dextrose 50 % 25 Gm/50 Ml Vial) 25 gm IVPUSH Q15M PRN; Protocol PRN Reason: per Hypoglycemia Standing Ord. Diphenhydramine HCl (Diphenhydramine Hcl 25 Mg Tablet) 25 mg PO Q4H PRN PRN Reason: itching Last Admin: 04/29/21 21:25 Dose: 25 mg Documented by: Fluticasone/Vilanterol (Fluticasone/Vilanterol 100/25 Blst.W.Dev) 1 puff INHALE DAILY [facility] Last Admin: 04/30/21 09:22 Dose: Not Given Documented by: Glucose (Glucose Gel 15 Gm Gel..Gram.) 15 gm PO Q15M PRN; Protocol PRN Reason: per Hypoglycemia Standing Ord. Heparin Sodium (Porcine) (Heparin Sodium,Porcine 5,000 Unit/Ml Vial) 5,000 unit SUBCUT Q8H [facility] Last Admin: 04/30/21 20:50 Dose: Not Given Documented by: Hydromorphone HCl (Hydromorphone Hcl 0.5 Mg/0.5 Ml Syringe) 0.5 mg IVPUSH Q3H PRN; Protocol PRN Reason: Pain, Moderate (Pain Scale 4-6 Last Admin: 04/30/21 19:47 Dose: 0.5 mg Documented by: Levofloxacin (Levaquin) 500 mg in 100 mls @ 100 mls/hr IV Q24H [facility] Last Infusion: 04/29/21 23:32 Dose: Infused Documented by: Promethazine HCl 12.5 mg/ (Sodium Chloride) 50.5 mls @ 202 mls/hr IV RQ4H PRN PRN Reason: nausea Last Infusion: 04/30/21 11:00 Dose: Infused Documented by: Metronidazole (Flagyl) 500 mg in 100 mls @ 100 mls/hr IV Q6H [facility] Last Admin: 04/30/21 20:45 Dose: 100 mls/hr Documented by: Insulin Human Lispro (Insulin Lispro 100 Unit/Ml 3 Ml Vial) 0 unit SUBCUT QIDACHS [facility]; Protocol Last Admin: 04/30/21 20:44 Dose: 4 unit Documented by: Montelukast Sodium (Montelukast Sodium 10 Mg Tablet) 10 mg PO BEDTIME [facility] Last Admin: 04/30/21 20:52 Dose: Not Given Documented by: Nicotine (Nicotine 21 Mg Patch.Td24) 21 mg TRANSDERMA RDAILY [facility] Last Admin: 04/30/21 08:28 Dose: Not Given Documented by: Oxycodone HCl (Oxycodone Hcl Immed Release 5 Mg Tablet) 5 mg PO Q4H PRN PRN Reason: Pain, Moderate (Pain Scale 4-6 Last Admin: 04/30/21 08:52 Dose: 5 mg Documented by: Sodium Chloride (0.9 % Sodium Chloride Flush 3 Ml Syringe) 3 ml IVFLUSH [facility] Last Admin: 04/30/21 15:44 Dose: Not Given Documented by: Home Medications Medication Instructions Recorded Confirmed Last Taken Type ascorbic acid (vitamin C) 500 mg 500 mg PO DAILY 03/31/21 04/26/21 04/25/21 History tablet (Vitamin C) biotin 1,000 mcg chewable tablet 1,000 mcg PO DAILY 03/31/21 04/26/21 04/25/21 History cyanocobalamin (vitamin B-12) 1,000 mcg PO DAILY 03/31/21 04/26/21 04/25/21 History 1,000 mcg tablet fluticasone 250 mcg-salmeterol 50 1 puff INHALATION BID 03/31/21 04/26/21 04/25/21 History mcg/dose blistr powdr for inhalation (Advair Diskus) cholecalciferol (vitamin D3) 25 25 mcg PO DAILY 09/04/26/21 04/25/21 History mcg (1,000 unit) tablet (Vitamin D3) ibuprofen 200 mg tablet 200 mg PO Q6H PRN 04/15/21 04/26/21 04/14/21 History montelukast 10 mg tablet 1 tab PO BEDTIME 04/15/21 04/26/21 04/25/21 History multivitamin 1 tab PO DAILY 04/15/21 04/26/21 04/25/21 History blood sugar diagnostic (FreeStyle 04/26/21 04/26/21 04/25/21 History Test) fexofenadine 180 mg tablet 1 tab PO DAILY PRN 04/26/21 04/26/21 Unknown History insulin lispro 100 unit/mL 1 sliding scale dose SUBCUT TIDAC 04/26/21 04/26/21 Unknown History subcutaneous cartridge (Humalog U-100 Insulin) Physical Exam Vital Signs: Vital Signs: Last Vital Signs Temp 97 F 04/30/21 19:23 Pulse 64 04/30/21 20:47 Resp 20 04/30/21 20:47 BP 160/84 H 04/30/21 20:47 Pulse Ox 99 04/30/21 19:23 Body Mass Index 37.0 Const: General: cooperative HENMT: Head: Yes normal to inspection Mouth: Normal oral and palatal mucosa present Eyes: General: appearance normal, both eyes and all related structures Resp: Effort & Inspection: normal respiratory effort Cardio: Rate: regular rate Rhythm: regular rhythm GI: Palpation (GI): Soft to palpation and Tenderness to palpation present (GI) (drain) in the LLQ Skin: General skin exam: no rashes or lesions noted Extrem: General: Yes normal to inspection Results Labs CBC & Chem 7: 04/29/21 04:30 04/27/21 05:25 Labs: Short CBC 04/26/21 04/27/21 Range/Units 17:22 05:25 Creatinine 0.85 0.71 (0.5-1.4) mg/dL ALT 11 (0-31) U/L Microbiology Microbiology Results: Microbiology 04/28/21 12:25 Abscess Intra-abdominal Gram Stain - Final 04/28/21 12:25 Abscess Intra-abdominal Routine Culture - Final 04/28/21 12:25 Abscess Intra-abdominal Anaerobic Culture - Final 04/26/21 17:50 Blood - Venous Blood Culture - Preliminary No growth after 48 hours. 04/26/21 17:22 Blood - Venous Blood Culture - Preliminary No growth after 48 hours. Assessment and Plan (1) Diverticulitis of intestine with abscess: Status: Acute She has multiple antibiotic courses She has yeast as part of sung Would continue Levaquin and Flagyl and add Diflucan 200 mg daily as yeast may be important Duration may be 14 days (2) Intra-abdominal abscess: Status: Acute
[2021-04-30] MEDS: levoFLOXacin/D5W 500 MG/100 ML PIGGYBACK 100 MG IV (21:55)
[2021-04-30] MEDS: diphenhydrAMINE HCL 25 MG TABLET PO (22:01)
[2021-04-30] MEDS: Fluconazole in NaCl,Iso-Osm 200 MG/100 ML PIGGYBACK 100 MG IV (23:58)
[2021-05-01] VITALS (10 sets, daily range): BP systolic 115–137; BP diastolic 64–77; PULSE 57–69; RESP 16–20; TEMP 36.1–36.7; O2SAT 94–98
[2021-05-01] MEDS: metroNIDAZOLE/NS 500 MG/100 ML PIGGYBACK 100 MG IV ×4 (04:07→22:03)
[2021-05-01] MEDS: HYDROmorphone HCl 0.5 MG/0.5 ML SYRINGE IVPUSH ×5 (04:45→22:10)
--- NOTE | 2021-05-01 06:29 | PC.NURSE ---
bulb drain flushed at 0500. drained 7mL overnight pale yellow opaque liquid.
[2021-05-01 07:24] LABS: Glucose, Whole Blood 125 mg/dL (60-115)
--- NOTE | 2021-05-01 08:57 | P.PNGS_ITS ---
Subjective Subjective Date of Service: 05/01/21 Interval history: 45-year-old female status post drainage of a diverticular abscess. She feels improved but is having back and hip discomfort due to lying on her right side. She is tolerating her diet but reports being not very hungry. She has been out of bed ambulating. Physical Exam Vital Signs: Vital Signs: Last Vital Signs Temp 97.8 F 05/01/21 07:16 Pulse 65 05/01/21 07:16 Resp 17 05/01/21 07:16 BP 115/70 05/01/21 07:16 Pulse Ox 98 05/01/21 07:16 Body Mass Index 37.0 Const: General: cooperative and no acute distress Nutritional Appearance: well nourished Orientation/consciousness: patient oriented x3 Limitations: no limitations Resp: Other: Breathing comfortably, no respiratory distress GI: Other: MANPREET with a scant amount of clear yellow discharge. Abdomen is soft and nondistended. There is mild tenderness in the left lower quadrant. Skin: Other: Warm, dry, no rash Neuro: General: patient oriented x3 Extrem: Other: no edema Procedures Date of Service Date of Service: 05/01/21 Progress Note: A&P Assessment and plan (1) Diverticulitis of intestine with abscess: Status: Acute Assessment and Plan: Overall the patient is improved with decreased abdominal pain. The IR drain is draining a scant amount of yellow discharge. Plan is to continue IV antibiotics over the weekend. Patient expressed understanding and agrees with the plan. Drain to be left in place upon discharge with VNA for drain care. Fall Risk Details Current Medications: Current Medications Acetaminophen (Acetaminophen 325 Mg Tablet) 650 mg PO Q4H PRN PRN Reason: Fever Last Admin: 04/29/21 14:28 Dose: 650 mg Documented by: Atorvastatin Calcium (Atorvastatin Calcium 20 Mg Tablet) 20 mg PO BEDTIME [facility] Last Admin: 04/30/21 20:45 Dose: 20 mg Documented by: Dextrose (Dextrose 50 % 25 Gm/50 Ml Vial) 25 gm IVPUSH Q15M PRN; Protocol PRN Reason: per Hypoglycemia Standing Ord. Diphenhydramine HCl (Diphenhydramine Hcl 25 Mg Tablet) 25 mg PO Q4H PRN PRN Reason: itching Last Admin: 04/30/21 22:01 Dose: 25 mg Documented by: Fluticasone/Vilanterol (Fluticasone/Vilanterol 100/25 Blst.W.Dev) 1 puff INHALE DAILY [facility] Last Admin: 05/01/21 08:39 Dose: Not Given Documented by: Glucose (Glucose Gel 15 Gm Gel..Gram.) 15 gm PO Q15M PRN; Protocol PRN Reason: per Hypoglycemia Standing Ord. Heparin Sodium (Porcine) (Heparin Sodium,Porcine 5,000 Unit/Ml Vial) 5,000 unit SUBCUT Q8H [facility] Last Admin: 05/01/21 06:43 Dose: Not Given Documented by: Hydromorphone HCl (Hydromorphone Hcl 0.5 Mg/0.5 Ml Syringe) 0.5 mg IVPUSH Q3H PRN; Protocol PRN Reason: Pain, Moderate (Pain Scale 4-6 Last Admin: 05/01/21 04:45 Dose: 0.5 mg Documented by: Levofloxacin (Levaquin) 500 mg in 100 mls @ 100 mls/hr IV Q24H [facility] Last Infusion: 05/01/21 00:45 Dose: Infused Documented by: Promethazine HCl 12.5 mg/ (Sodium Chloride) 50.5 mls @ 202 mls/hr IV RQ4H PRN PRN Reason: nausea Last Infusion: 04/30/21 11:00 Dose: Infused Documented by: Metronidazole (Flagyl) 500 mg in 100 mls @ 100 mls/hr IV Q6H [facility] Last Infusion: 05/01/21 06:26 Dose: Infused Documented by: Fluconazole (Diflucan) 200 mg in 100 mls @ 100 mls/hr IV Q24H [facility] Last Infusion: 05/01/21 01:16 Dose: Infused Documented by: Insulin Human Lispro (Insulin Lispro 100 Unit/Ml 3 Ml Vial) 0 unit SUBCUT QIDACHS [facility]; Protocol Last Admin: 05/01/21 07:26 Dose: Not Given Documented by: Montelukast Sodium (Montelukast Sodium 10 Mg Tablet) 10 mg PO BEDTIME [facility] Last Admin: 04/30/21 20:52 Dose: Not Given Documented by: Nicotine (Nicotine 21 Mg Patch.Td24) 21 mg TRANSDERMA RDAILY [facility] Last Admin: 04/30/21 08:28 Dose: Not Given Documented by: Oxycodone HCl (Oxycodone Hcl Immed Release 5 Mg Tablet) 5 mg PO Q4H PRN PRN Reason: Pain, Moderate (Pain Scale 4-6 Last Admin: 04/30/21 22:00 Dose: 5 mg Documented by: Sodium Chloride (0.9 % Sodium Chloride Flush 3 Ml Syringe) [facility] Last Admin: 04/30/21 23:52 Dose: 3 ml Documented by: Time Spent With Patient Time: Total time spent is greater than 50% in coordination of care (as documented) at patient's floor/unit and/or counseling patient: Time with patient: 15 - 24 minutes Quality Stroke Does the patient have a stroke diagnosis?: No VTE Prior VTE?: No VTE Risk Level:: Surgical - moderate VTE Device Contraindication: N/A - Device Ordered VTE Drug Contraindication: Treatment Not Indicated (CT drainage today)
[2021-05-01] MEDS: 0.9 % Sodium Chloride Flush 3 ML SYRINGE IVFLUSH ×2 (09:03→15:45)
[2021-05-01] MEDS: oxyCODONE HCl Immed Release 5 MG TABLET PO ×3 (09:04→23:39)
[2021-05-01 11:39] LABS: Glucose, Whole Blood 217 mg/dL (60-115)
[2021-05-01] MEDS: Insulin Lispro 100 UNIT/ML 3 ML VIAL SUBCUT ×2 (11:43→22:05)
[2021-05-01 16:14] LABS: Glucose, Whole Blood 131 mg/dL (60-115)
[2021-05-01 20:41] LABS: Glucose, Whole Blood 202 mg/dL (60-115)
[2021-05-01] MEDS: Montelukast Sodium 10 MG TABLET PO (22:01)
[2021-05-01] MEDS: Heparin Sodium,Porcine 5,000 UNIT/ML VIAL 5000 UNIT SUBCUT (22:01)
[2021-05-01] MEDS: Atorvastatin Calcium 20 MG TABLET PO (22:02)
[2021-05-01] MEDS: Fluconazole in NaCl,Iso-Osm 200 MG/100 ML PIGGYBACK 100 MG IV (22:12)
[2021-05-02] MEDS: levoFLOXacin/D5W 500 MG/100 ML PIGGYBACK 100 MG IV ×2 (00:53→00:54)
[2021-05-02] MEDS: HYDROmorphone HCl 0.5 MG/0.5 ML SYRINGE IVPUSH ×5 (02:53→22:50)
[2021-05-02 03:43] VITALS: BP 114/62; PULSE 63; RESP 18; TEMP 36.1; O2SAT 97
[2021-05-02] MEDS: metroNIDAZOLE/NS 500 MG/100 ML PIGGYBACK 100 MG IV ×4 (05:38→22:45)
[2021-05-02] MEDS: Heparin Sodium,Porcine 5,000 UNIT/ML VIAL 5000 UNIT SUBCUT (05:58)
[2021-05-02 07:18] VITALS: BP 137/67; PULSE 72; RESP 17; TEMP 36.3; O2SAT 95
[2021-05-02 07:29] LABS: Glucose, Whole Blood 131 mg/dL (60-115)
[2021-05-02] MEDS: Fluticasone/Vilanterol 100/25 BLST.W.DEV 1 PUFF INHALE (07:46)
[2021-05-02 07:47] VITALS: PULSE 77; O2SAT 98
[2021-05-02] MEDS: 0.9 % Sodium Chloride Flush 3 ML SYRINGE IVFLUSH ×3 (08:54→22:50)
--- NOTE | 2021-05-02 08:54 | P.PNGS_ITS ---
Subjective Subjective Date of Service: 05/02/21 Interval history: patient reports that the stopcock from the IR drain was inadvertently left in the closed position. She began to note increased flank pain. When the tube was flushed, the stopcock was returned to the open position and a large purulence collection was evacuated. She reports improvement in the flank pain following this. Physical Exam Vital Signs: Vital Signs: Last Vital Signs Temp 97.3 F 05/02/21 07:18 Pulse 72 05/02/21 07:18 Resp 17 05/02/21 07:18 BP 137/67 05/02/21 07:18 Pulse Ox 95 05/02/21 07:18 Body Mass Index 37.0 Const: General: comfortable Nutritional Appearance: well nourished Orientation/consciousness: patient oriented x3 Limitations: no limitations Resp: Other: breathing comfortably on room air GI: Other: soft and nondistended. IR drain site is clean and intact without surrounding erythema. MANPREET contains creamy white fluid Skin: General skin exam: no rashes or lesions noted Neuro: General: patient oriented x3 Extrem: General: Yes no clubbing, cyanosis or edema Procedures Date of Service Date of Service: 05/02/21 Progress Note: A&P Assessment and plan (1) Diverticulitis of intestine with abscess: Status: Acute (2) Intra-abdominal abscess: Status: Acute Assessment and Plan: ?Overall the patient is improved with decreased abdominal pain.? The IR drain is now draining more creamy yellow fluid.? Plan is to continue IV antibiotics over the weekend.? Patient expressed understanding and agrees with the plan.? Drain to be left in place upon discharge with VNA for drain care Including drain flushing. Fall Risk Details Current Medications: Current Medications Acetaminophen (Acetaminophen 325 Mg Tablet) 650 mg PO Q4H PRN PRN Reason: Fever Last Admin: 04/29/21 14:28 Dose: 650 mg Documented by: Atorvastatin Calcium (Atorvastatin Calcium 20 Mg Tablet) 20 mg PO BEDTIME [facility] Last Admin: 05/01/21 22:02 Dose: 20 mg Documented by: Dextrose (Dextrose 50 % 25 Gm/50 Ml Vial) 25 gm IVPUSH Q15M PRN; Protocol PRN Reason: per Hypoglycemia Standing Ord. Diphenhydramine HCl (Diphenhydramine Hcl 25 Mg Tablet) 25 mg PO Q4H PRN PRN Reason: itching Last Admin: 04/30/21 22:01 Dose: 25 mg Documented by: Fluticasone/Vilanterol (Fluticasone/Vilanterol 100/25 Blst.W.Dev) 1 puff INHALE DAILY [facility] Last Admin: 05/02/21 07:46 Dose: 1 puff Documented by: Glucose (Glucose Gel 15 Gm Gel..Gram.) 15 gm PO Q15M PRN; Protocol PRN Reason: per Hypoglycemia Standing Ord. Heparin Sodium (Porcine) (Heparin Sodium,Porcine 5,000 Unit/Ml Vial) 5,000 unit SUBCUT Q8H [facility] Last Admin: 05/02/21 05:58 Dose: 5,000 unit Documented by: Hydromorphone HCl (Hydromorphone Hcl 0.5 Mg/0.5 Ml Syringe) 0.5 mg IVPUSH Q3H PRN; Protocol PRN Reason: Pain, Moderate (Pain Scale 4-6 Last Admin: 05/02/21 06:13 Dose: 0.5 mg Documented by: Levofloxacin (Levaquin) 500 mg in 100 mls @ 100 mls/hr IV Q24H [facility] Last Infusion: 05/02/21 03:05 Dose: Infused Documented by: Promethazine HCl 12.5 mg/ (Sodium Chloride) 50.5 mls @ 202 mls/hr IV RQ4H PRN PRN Reason: nausea Last Infusion: 04/30/21 11:00 Dose: Infused Documented by: Metronidazole (Flagyl) 500 mg in 100 mls @ 100 mls/hr IV Q6H [facility] Last Admin: 05/02/21 08:50 Dose: 100 mls/hr Documented by: Fluconazole (Diflucan) 200 mg in 100 mls @ 100 mls/hr IV Q24H [facility] Last Infusion: 05/02/21 00:11 Dose: Infused Documented by: Insulin Human Lispro (Insulin Lispro 100 Unit/Ml 3 Ml Vial) 0 unit SUBCUT QIDACHS [facility]; Protocol Last Admin: 05/02/21 07:26 Dose: Not Given Documented by: Montelukast Sodium (Montelukast Sodium 10 Mg Tablet) 10 mg PO BEDTIME [facility] Last Admin: 05/01/21 22:01 Dose: 10 mg Documented by: Nicotine (Nicotine 21 Mg Patch.Td24) 21 mg TRANSDERMA RDAILY [facility] Last Admin: 05/02/21 08:54 Dose: Not Given Documented by: Oxycodone HCl (Oxycodone Hcl Immed Release 5 Mg Tablet) 5 mg PO Q4H PRN PRN Reason: Pain, Moderate (Pain Scale 4-6 Last Admin: 05/01/21 23:39 Dose: 5 mg Documented by: Sodium Chloride (0.9 % Sodium Chloride Flush 3 Ml Syringe) [facility] Last Admin: 05/02/21 08:54 Dose: 3 ml Documented by: Time Spent With Patient Time: Total time spent is greater than 50% in coordination of care (as documented) at patient's floor/unit and/or counseling patient: Time with patient: 15 - 24 minutes Quality Stroke Does the patient have a stroke diagnosis?: No VTE Prior VTE?: No VTE Risk Level:: Surgical - moderate VTE Device Contraindication: N/A - Device Ordered VTE Drug Contraindication: Treatment Not Indicated (CT drainage today)
[2021-05-02 11:25] VITALS: BP 137/88; PULSE 71; RESP 18; TEMP 36.4; O2SAT 96
[2021-05-02 11:38] LABS: Glucose, Whole Blood 142 mg/dL (60-115)
[2021-05-02 15:08] VITALS: BP 139/80; PULSE 64; RESP 18; TEMP 36.2; O2SAT 96
--- NOTE | 2021-05-02 16:10 | MHC.CM.PN ---
NEW HCP COMPLETED COPY PLACED IN CHART
[2021-05-02 16:14] LABS: Glucose, Whole Blood 136 mg/dL (60-115)
[2021-05-02 20:00] VITALS: BP 136/78; PULSE 70; RESP 18; TEMP 36.3; O2SAT 97
[2021-05-02 20:19] LABS: Glucose, Whole Blood 140 mg/dL (60-115)
[2021-05-02] MEDS: Atorvastatin Calcium 20 MG TABLET PO (22:45)
[2021-05-02] MEDS: Fluconazole in NaCl,Iso-Osm 200 MG/100 ML PIGGYBACK 100 MG IV (23:57)
[2021-05-03] VITALS (7 sets, daily range): BP systolic 125–141; BP diastolic 75–88; PULSE 62–81; RESP 16–18; TEMP 36.1–36.6; O2SAT 92–99
[2021-05-03] MEDS: HYDROmorphone HCl 0.5 MG/0.5 ML SYRINGE IVPUSH ×7 (01:46→21:32)
[2021-05-03] MEDS: metroNIDAZOLE/NS 500 MG/100 ML PIGGYBACK 100 MG IV ×4 (01:47→21:33)
[2021-05-03 07:36] LABS: Glucose, Whole Blood 164 mg/dL (60-115)
[2021-05-03] MEDS: Fluticasone/Vilanterol 100/25 BLST.W.DEV 1 PUFF INHALE (07:44)
[2021-05-03] MEDS: Insulin Lispro 100 UNIT/ML 3 ML VIAL SUBCUT ×4 (08:09→21:29)
[2021-05-03] MEDS: 0.9 % Sodium Chloride Flush 3 ML SYRINGE IVFLUSH ×2 (08:09→14:33)
--- NOTE | 2021-05-03 10:54 | P.PNGS_ITS ---
Subjective Subjective Date of Service: 05/03/21 Interval history: Tolerating diet Describes some occasional low back pain Patient says she is ready to go home No events reported Physical Exam Vital Signs: Vital Signs: Last Vital Signs Temp 97.7 F 05/03/21 07:56 Pulse 75 05/03/21 07:56 Resp 16 05/03/21 07:56 BP 125/83 05/03/21 07:56 Pulse Ox 96 05/03/21 07:56 Body Mass Index 37.0 Const: Other: Anxious General: comfortable and no acute distress Resp: Effort & Inspection: normal respiratory effort Cardio: Rhythm: regular rhythm GI: Other: Drain with scanty purulent looking thin fluid Palpation (GI): Soft to palpation, not firm, nontender and no guarding Procedures Date of Service Date of Service: 05/03/21 Progress Note: A&P Assessment and plan (1) Intra-abdominal abscess: Status: Acute Assessment and Plan: Status post CT drain She looks well although is chronically anxious No fever Abdomen soft Drain with scanty output Tolerating diet well Exam benign Possible DC home today or tomorrow on antibiotics Keep drain in place Follow-up in the office after discharge Fall Risk Details Current Medications: Current Medications Acetaminophen (Acetaminophen 325 Mg Tablet) 650 mg PO Q4H PRN PRN Reason: Fever Last Admin: 04/29/21 14:28 Dose: 650 mg Documented by: Atorvastatin Calcium (Atorvastatin Calcium 20 Mg Tablet) 20 mg PO BEDTIME [facility] Last Admin: 05/02/21 22:45 Dose: 20 mg Documented by: Dextrose (Dextrose 50 % 25 Gm/50 Ml Vial) 25 gm IVPUSH Q15M PRN; Protocol PRN Reason: per Hypoglycemia Standing Ord. Diphenhydramine HCl (Diphenhydramine Hcl 25 Mg Tablet) 25 mg PO Q4H PRN PRN Reason: itching Last Admin: 04/30/21 22:01 Dose: 25 mg Documented by: Fluticasone/Vilanterol (Fluticasone/Vilanterol 100/25 Blst.W.Dev) 1 puff INHALE DAILY [facility] Last Admin: 05/03/21 07:44 Dose: 1 puff Documented by: Glucose (Glucose Gel 15 Gm Gel..Gram.) 15 gm PO Q15M PRN; Protocol PRN Reason: per Hypoglycemia Standing Ord. Heparin Sodium (Porcine) (Heparin Sodium,Porcine 5,000 Unit/Ml Vial) 5,000 unit SUBCUT Q8H [facility] Last Admin: 05/03/21 03:29 Dose: Not Given Documented by: Hydromorphone HCl (Hydromorphone Hcl 0.5 Mg/0.5 Ml Syringe) 0.5 mg IVPUSH Q3H PRN; Protocol PRN Reason: Pain, Moderate (Pain Scale 4-6 Last Admin: 05/03/21 08:09 Dose: 0.5 mg Documented by: Levofloxacin (Levaquin) 500 mg in 100 mls @ 100 mls/hr IV Q24H [facility] Last Infusion: 05/02/21 03:05 Dose: Infused Documented by: Promethazine HCl 12.5 mg/ (Sodium Chloride) 50.5 mls @ 202 mls/hr IV RQ4H PRN PRN Reason: nausea Last Infusion: 04/30/21 11:00 Dose: Infused Documented by: Metronidazole (Flagyl) 500 mg in 100 mls @ 100 mls/hr IV Q6H [facility] Last Admin: 05/03/21 10:38 Dose: 100 mls/hr Documented by: Fluconazole (Diflucan) 200 mg in 100 mls @ 100 mls/hr IV Q24H [facility] Last Infusion: 05/03/21 01:52 Dose: Infused Documented by: Insulin Human Lispro (Insulin Lispro 100 Unit/Ml 3 Ml Vial) 0 unit SUBCUT QIDACHS [facility]; Protocol Last Admin: 05/03/21 08:09 Dose: 2 unit Documented by: Montelukast Sodium (Montelukast Sodium 10 Mg Tablet) 10 mg PO BEDTIME [facility] Last Admin: 05/02/21 22:49 Dose: Not Given Documented by: Nicotine (Nicotine 21 Mg Patch.Td24) 21 mg TRANSDERMA RDAILY [facility] Last Admin: 05/03/21 08:04 Dose: Not Given Documented by: Sodium Chloride (0.9 % Sodium Chloride Flush 3 Ml Syringe) 3 ml IVFLUSH QSHIFT [facility] Last Admin: 05/03/21 08:09 Dose: 3 ml Documented by: Time Spent With Patient Time: Total time spent is greater than 50% in coordination of care (as documented) at patient's floor/unit and/or counseling patient: Time with patient: 15 - 24 minutes Quality Stroke Does the patient have a stroke diagnosis?: No VTE Prior VTE?: No VTE Risk Level:: Surgical - moderate VTE Device Contraindication: N/A - Device Ordered VTE Drug Contraindication: Treatment Not Indicated (CT drainage today)
[2021-05-03 11:48] LABS: Glucose, Whole Blood 174 mg/dL (60-115)
--- NOTE | 2021-05-03 12:35 | MHC.CM.PN ---
OF THIS NOTE, NO VNA SERVICES ARE BEING OFFERED. (PATIENT HAS NEEDS THAT EXCEED [facility] CAPACITY) OTHER REASONS ARE STAFFING SHORTAGES, PATIENT CASE LOAD AT CAPACITY, AND OTHERS THAT ARE NOT CONTRACTED WITH PATIENT'S INSURANCE. PATIENT'S PCP IS WITH [facility] THEIR VNA IS AT CAPACITY WELL. CASE MANAGEMENT TO CONTINUE ATTEMPTS. [facility], [facility], AND [facility] HAVE NOT RESPONDED. AGENCIES UPDATED IN [facility]IPTS
[2021-05-03 16:05] LABS: Glucose, Whole Blood 167 mg/dL (60-115)
[2021-05-03 20:20] LABS: Glucose, Whole Blood 187 mg/dL (60-115)
[2021-05-03] MEDS: Montelukast Sodium 10 MG TABLET PO (21:29)
[2021-05-03] MEDS: Atorvastatin Calcium 20 MG TABLET PO (21:29)
[2021-05-03] MEDS: Fluconazole in NaCl,Iso-Osm 200 MG/100 ML PIGGYBACK 100 MG IV (22:50)
[2021-05-04] VITALS: BP 132/74; PULSE 70; RESP 16; TEMP 36.6; O2SAT 95
[2021-05-04 04:00] VITALS: BP 144/69; PULSE 66; RESP 16; TEMP 36.2; O2SAT 95
[2021-05-04] MEDS: metroNIDAZOLE/NS 500 MG/100 ML PIGGYBACK 100 MG IV ×2 (04:36→09:33)
[2021-05-04 07:29] LABS: Glucose, Whole Blood 148 mg/dL (60-115)
[2021-05-04 08:00] VITALS: BP 132/74; PULSE 65; RESP 17; TEMP 36.3; O2SAT 98
[2021-05-04] MEDS: Fluticasone/Vilanterol 100/25 BLST.W.DEV 1 PUFF INHALE (09:25)
[2021-05-04 09:26] VITALS: PULSE 65; O2SAT 98
[2021-05-04] MEDS: 0.9 % Sodium Chloride Flush 3 ML SYRINGE IVFLUSH (09:33)
[2021-05-04] MEDS: HYDROmorphone HCl 0.5 MG/0.5 ML SYRINGE IVPUSH ×2 (09:34→14:00)
[2021-05-04 11:30] LABS: Glucose, Whole Blood 256 mg/dL (60-115)
[2021-05-04] MEDS: oxyCODONE HCl Immed Release 5 MG TABLET PO (11:38)
[2021-05-04] MEDS: Insulin Lispro 100 UNIT/ML 3 ML VIAL SUBCUT (11:39)
--- NOTE | 2021-05-04 14:19 | W.MHC.F2F ---
Service Date Service Date: 05/04/21 Encounter Date of encounter: 05/04/21 Reasons for Services Signs and symptoms assessed: Abdominal pain, tenderness, pigtail drain output Reason for jail: wound care (pigtail drain care) Homebound: Leaving the home is medically contraindicated at this time without the assist of a device and/or another person due th the listed conditions above and below. Homebound supporting statement: Ms. Quiñonez was admitted with recurrent diverticular abscess. She underwent CT guided drainage with drain placement. She will need nursing services for drain care. Certification: Based on the above findings, I certify that this patient is confined to the home and needs intermittent jail care, physical therapy and/or speech therapy, or continues to need occupational therapy. The patient is under my care, and I have initiated the establishment of the plan of care. The patient will be followed by a physician who will periodically review the plan of care.
--- NOTE | 2021-05-04 14:20 | MHC.CM.PN ---
Addendum entered by Mara Delong RN 05/04/21 14:22: REFFERALS RESENT W/NEW INFORMATION. Original Note: CM MET W/SURGEON AND PT'S RN, DR DEL RIO REPORTS HE WILL COVER ALL VNA ORDERS AND PLAN IS FOR MANPREET DRAIN TO BE REMOVED NEXT WEEK IN OFFICE, PER NSG PT NEEDS TO HAVE MANPREET DRAIN FLUSHED AT LEAST ONCE A DAY AND PT IS UNABLE TO REACH DUE TO PLACEMENT.
--- NOTE | 2021-05-04 14:45 | PM.DS ---
DS: Providers Provider Date of Service: 05/04/21 Date of admission: 04/26/21 21:24 Primary care physician: Diogo Wright MD Consults: 04/30/21 09:50 Consult to Infectious Diseases Routine Consulting Provider: Apple Yoon Reason for consultation: recurrent diverticular abscess, s/p drainage, culture +1 yeast Has provider been notified: No Attending physician on discharge: Kaushik Gómez DS: Diagnosis Discharge Diagnosis (1) Intra-abdominal abscess: Status: Acute DS: Summary Hospital Course Hospital Course: BRIEF HPI: ?Mckenzie Quiñonez is a 45 year old female who presented to the ED for pain in the lower back/pelvic area. The pain began several days earlier, last week. She had been in contact with the office/maxillofacial surgeon surgeon who urged her to seek care in the ED. The pain finally became so severe she could no longer tolerate it at home and presented for evaluation. It was associated with painful urination and anorexia. The patient was previously admitted on 03/31/21 for a diverticular abscess in the pelvis which was borderline in size. Drainage was therefore not performed and she was treated with IV antibiotics with improvement. She was subsequently readmitted on 04/15/21 for sigmoid diverticulitis with abscess in the same location where she underwent CT guided drainage. Only a small amount was aspirated at that time and no drain was placed. She improved with IV antibiotics following the drainage and was discharged to home on 04/18/21. Work up in the ED included a CT scan which demonstrated a persistent fluid collection with air-fluid level low in the pelvis adjacent to the sigmoid colon this collection was present on prior studies. This was the collection previously aspirated, which has not substantially changed in size and measures 5 cm AP by 4 cm transverse. No new collection demonstrated. She also has a leukocytosis of 18.3. HOSPITAL COURSE:?She was admitted to the surgical service for further treatment of the diverticular abscess. She had a benign abdominal exam and was nontoxic appearing. CT drainage with IR with drain placement was ordered. She was started on IV levaquin/flagyl, IVF. On 04/28/21, a CT guided drainage was performed and 50ml purulent material aspirated. A 6.3 fr left pelvic abscess drain placed. The patient improved symptomatically following this and had improvement in her low back/pelvic pressure. Her WBC downtrended and normalized. Her diet was advanced to clear liquids and then low residue. The abscess cultures grew mixed sung and yeast. ID was therefore consults who recommended diflucan 100mg daily x 14 days. She remained inpatient for the remainder of her stay for a longer IV antibiotic course due to the recurrence. The drain was kept in place as it had persistent purulent drainage. She completed a 7 day course of IV levaquin/flagyl and 4 day course of IV diflucan. She was transitioned to PO antimicrobial course to complete 14 days. On the day of discharge, her pain was almost gone, she was OOB and ambulating, she was tolerating a solid diet. She was clinically appearing well with a benign abdominal exam. She felt ready for discharge. There was difficulty obtaining VNA services due to insurance and staffing issues. She felt comfortable following up in the office daily with SANGEETA Garrett for daily drain care. Transportation was arranged for her. She was discharged to home on 05/04/21 in stable condition on a course of PO ciprofloxacin, flagyl and diflucan. Status at Discharge Functional status at discharge: independent ambulation Overall status at discharge: patient is progressing back to baseline Time Spent with Patient Time attestation: Total time spent providing and/or coordinating discharge services: Discharge coordination time: Greater than 30 minutes Quality: Stroke Does the patient have a stroke diagnosis?: No Physical Exam Vital Signs: Vital Signs: Last Vital Signs Temp 97.4 F 05/04/21 08:00 Pulse 65 05/04/21 08:00 Resp 17 05/04/21 08:00 BP 132/74 05/04/21 08:00 Pulse Ox 98 05/04/21 08:00 Body Mass Index 37.0 Const: General: comfortable, no acute distress, well developed and alert Orientation/consciousness: patient oriented x3 Resp: Effort & Inspection: normal respiratory effort GI: Other: drain with scanty purulent drainage Inspection: No distended and Yes incision Palpation (GI): Soft to palpation and nontender Skin: Other: normal color, warm and dry Neuro: General: patient oriented x3 Extrem: General: Yes no clubbing, cyanosis or edema DS: Data Data Completed and Pending Completed studies during hospitalization [Text1]: Procedures Drainage of Retroperitoneum, Percutaneous Approach (04/14/21; 04/28/21) Labs on day of discharge: Laboratory Results - last 24 hr 05/03/21 05/03/21 05/04/21 15:51 19:55 07:16 POC Glucose 167 H 187 H 148 H 05/04/21 11:23 POC Glucose 256 H Discharge Plan Discharge Patient Disposition: Home, Self-Care Discharge Diagnosis: diverticular abscess Referrals: Diogo Wright MD [Primary Care Provider] - 1 Week Kaushik Gómez MD [Physician] - 1 Week Discharge Medications: New ciprofloxacin HCl [Cipro] 500 mg tablet 500 mg PO BID Qty: 18 RF: 0 metronidazole 500 mg tablet 500 mg PO TID Qty: 27 RF: 0 fluconazole 200 mg tablet 200 mg PO DAILY Qty: 11 RF: 0 oxycodone 5 mg tablet 5 mg PO Q4H PRN (Reason: pain) Qty: 16 RF: 0 oxycodone 5 mg tablet 5 mg PO Q4H PRN (Reason: pain) Qty: 25 RF: 0 Continued atorvastatin 20 mg tablet 20 mg PO BEDTIME 90 Days Qty: 90 RF: 1 (DME) FreeStyle Tiff 14 Day Sensor Kit See Rx Instructions .ROUTE .MEDSUPPLY Qty: 2 RF: 11 fluticasone propion-salmeterol [Advair Diskus] 250-50 mcg/dose blister with device 1 puff inhalation BID RF: 0 cyanocobalamin (vitamin B-12) 1,000 mcg Tablet 1,000 mcg PO DAILY RF: 0 ascorbic acid (vitamin C) [Vitamin C] 500 mg Tablet 500 mg PO DAILY RF: 0 biotin 1,000 mcg Tablet,Chewable 1,000 mcg PO DAILY RF: 0 docusate sodium [Colace] 100 mg capsule 100 mg PO BID PRN (Reason: constipation) Qty: 30 RF: 0 montelukast 10 mg tablet 1 tab PO BEDTIME RF: 0 multivitamin Tablet 1 tab PO DAILY RF: 0 ibuprofen 200 mg Tablet 200 mg PO Q6H PRN (Reason: Pain) RF: 0 cholecalciferol (vitamin D3) [Vitamin D3] 25 mcg (1,000 unit) Tablet 25 mcg PO DAILY RF: 0 fexofenadine 180 mg tablet 1 tab PO DAILY PRN (Reason: Allergy Symptoms) RF: 0 Humalog U-100 Insulin 100 unit/mL Cartridge 1 sliding scale dose SUBCUT TIDAC RF: 0 (DME) FreeStyle Test Strip See Rx Instructions strip .ROUTE DAILY RF: 0 Discontinued oxycodone 5 mg tablet 5 mg PO Q6H PRN (Reason: pain) Qty: 14 RF: 0 ciprofloxacin HCl [Cipro] 500 mg tablet 500 mg PO BID Qty: 20 RF: 0 metronidazole [Flagyl] 500 mg tablet 500 mg PO TID Qty: 30 RF: 0 Discharge Orders: Discharge Order (Routine); Ordered 05/04/21 Ordered By: Mitra Cardenas Diet: diabetic diet Activity on Discharge: As tolerated Stand Alone Forms: Patient Portal Discharge page Activity Restrictions/Additional Instructions: Call Your Doctor If: ? ? -Your temperature exceeds 101.5? F? ? ? -You experience excessive pain or swelling ? ? -You have an unexpected reaction to medication ? ? -You experience continued vomiting/nausea Call office for ffup in 1 week ([phone]) Follow up with Gerry PonceRN) in office daily for drain care. Care Plan Goals: Return to baseline health. Health Concerns: diverticular abscess Plan of Treatment: PO course of antibiotics, eventual drain removal Assessment: Improved Discharge Date/Time: 05/04/21 15:42
--- NOTE | 2021-05-04 14:54 | PM.PNGS ---
Subjective Subjective Date of Service: 05/04/21 Interval history: Feels well Says she rolled over hospital phone last night and hit her left hip with this -had pain and was upset about this; says hospital staff placed a phone on her bed without her knowing Tolerating diet well Physical Exam Vital Signs: Vital Signs: Last Vital Signs Temp 97.4 F 05/04/21 08:00 Pulse 65 05/04/21 08:00 Resp 17 05/04/21 08:00 BP 132/74 05/04/21 08:00 Pulse Ox 98 05/04/21 08:00 Body Mass Index 37.0 Const: General: comfortable and no acute distress Resp: Effort & Inspection: normal respiratory effort Cardio: Rate: regular rate GI: Other: Soft, nontender, nondistended, MANPREET drain in place - scanty, thin purulent fluid Procedures Date of Service Date of Service: 05/04/21 Progress Note: A&P Assessment and plan (1) Diverticulitis of intestine with abscess: Status: Acute Assessment and Plan: Status post IR drain Doing much better She wants to go home Will send home with p.o. antibiotics Drain to be left in place Has set up who looked VNA for drain care I will see her in the office next week Patient otherwise doing well except for her occasional anxiety Fall Risk Details Current Medications: Current Medications Acetaminophen (Acetaminophen 325 Mg Tablet) 650 mg PO Q4H PRN PRN Reason: Fever Last Admin: 04/29/21 14:28 Dose: 650 mg Documented by: Atorvastatin Calcium (Atorvastatin Calcium 20 Mg Tablet) 20 mg PO BEDTIME TEMO Last Admin: 05/03/21 21:29 Dose: 20 mg Documented by: Dextrose (Dextrose 50 % 25 Gm/50 Ml Vial) 25 gm IVPUSH Q15M PRN; Protocol PRN Reason: per Hypoglycemia Standing Ord. Diphenhydramine HCl (Diphenhydramine Hcl 25 Mg Tablet) 25 mg PO Q4H PRN PRN Reason: itching Last Admin: 04/30/21 22:01 Dose: 25 mg Documented by: Fluticasone/Vilanterol (Fluticasone/Vilanterol 100/25 Blst.W.Dev) 1 puff INHALE DAILY [facility] Last Admin: 05/04/21 09:25 Dose: 1 puff Documented by: Glucose (Glucose Gel 15 Gm Gel..Gram.) 15 gm PO Q15M PRN; Protocol PRN Reason: per Hypoglycemia Standing Ord. Heparin Sodium (Porcine) (Heparin Sodium,Porcine 5,000 Unit/Ml Vial) 5,000 unit SUBCUT Q8H [facility] Last Admin: 05/04/21 14:00 Dose: Not Given Documented by: Hydromorphone HCl (Hydromorphone Hcl 0.5 Mg/0.5 Ml Syringe) 0.5 mg IVPUSH Q3H PRN; Protocol PRN Reason: Pain, Moderate (Pain Scale 4-6 Last Admin: 05/04/21 14:00 Dose: 0.5 mg Documented by: Promethazine HCl 12.5 mg/ (Sodium Chloride) 50.5 mls @ 202 mls/hr IV RQ4H PRN PRN Reason: nausea Last Infusion: 04/30/21 11:00 Dose: Infused Documented by: Metronidazole (Flagyl) 500 mg in 100 mls @ 100 mls/hr IV Q6H [facility] Last Infusion: 05/04/21 10:59 Dose: Infused Documented by: Fluconazole (Diflucan) 200 mg in 100 mls @ 100 mls/hr IV Q24H [facility] Last Infusion: 05/04/21 00:02 Dose: Infused Documented by: Insulin Human Lispro (Insulin Lispro 100 Unit/Ml 3 Ml Vial) 0 unit SUBCUT QIDACHS [facility]; Protocol Last Admin: 05/04/21 11:39 Dose: 12 unit Documented by: Montelukast Sodium (Montelukast Sodium 10 Mg Tablet) 10 mg PO BEDTIME [facility] Last Admin: 05/03/21 21:29 Dose: 10 mg Documented by: Nicotine (Nicotine 21 Mg Patch.Td24) 21 mg TRANSDERMA RDAILY [facility] Last Admin: 05/04/21 09:44 Dose: Not Given Documented by: Oxycodone HCl (Oxycodone Hcl Immed Release 5 Mg Tablet) 5 mg PO Q4H PRN PRN Reason: Pain, Moderate (Pain Scale 4-6 Last Admin: 05/04/21 11:38 Dose: 5 mg Documented by: Sodium Chloride (0.9 % Sodium Chloride Flush 3 Ml Syringe) 3 ml IVFLUSH QSHIFT [facility] Last Admin: 05/04/21 09:33 Dose: 3 ml Documented by: Time Spent With Patient Time: Total time spent is greater than 50% in coordination of care (as documented) at patient's floor/unit and/or counseling patient: Time with patient: 15 - 24 minutes Quality Stroke Does the patient have a stroke diagnosis?: No VTE Prior VTE?: No VTE Risk Level:: Surgical - moderate VTE Device Contraindication: N/A - Device Ordered VTE Drug Contraindication: Treatment Not Indicated (CT drainage today)
--- NOTE | 2021-05-04 15:47 | MHC.CM.PN ---
PT DISCHARGING HOME, CM STILL UNABLE TO OBTAIN VNA FOR PT AND PT WILL COME IN DAILY TO DR DEL RIO'S OFFICE DAILY AND RN WILL FLUSH FOR PT, [facility] [place] SHUTT[facility] TRANSPORTATION HAS BEEN SET UP FOR 05/04-05/11 EXCEPT W/E, PT GIVEN DATES AND TIMES OF TRANSPORT, PT HAS FRIEND WHO WILL TRANSPORT HER. CM WILL FOLLOW UP W/PT IF VNA OFFERS.
== END 2021-05-04 15:42 | disposition home or self-care (01) | DRG 244 ==
LOC: HO.ED 21:27 → HO.EDOVER 22:02 → HO.S3 22:06
PROVIDERS: Nurse Practitioner Family; Physician Assistant Surgical; Radiology Diagnostic Radiology; Surgery; Admitting Provider Surgery; Emergency Provider Emergency Medicine; PCP Internal Medicine; Visit Provider Surgery
PROC: 0W9J30Z Drainage of Pelvic Cavity with Drainage Device, Percutaneous Approach (ICD-10-PCS; principal; 2021-04-28 10:30)
DX: K57.80 Diverticulitis of intestine, part unspecified, with perforation and abscess without bleeding (principal); F17.210 Nicotine dependence, cigarettes, uncomplicated; Z20.822 Contact with and (suspected) exposure to COVID-19; Z71.6 Tobacco abuse counseling; Z79.1 Long term (current) use of non-steroidal anti-inflammatories (NSAID); Z79.4 Long term (current) use of insulin; Z79.51 Long term (current) use of inhaled steroids; Z79.899 Other long term (current) drug therapy
CPT/HCPCS: 36415; 74177; 75989; 80048; 80076; 81003; 81025; 82947; 83605; 83690; 85025; 85027; 85610; 85730; 87040; 87071; 87073; 87205; 87635; 93005; 96361; 96365; 96375; 96376; 99152; 99153; 99285; 99291; C1729; C1894; J1170; J1450; J1885; J1956; J2270; J2405; J2543; J2550; Q0163; Q9967

== ENCOUNTER → 2021-05-05 12:24 | Outpatient (BNVA) | payer OTHER, SELFPAY | PROVIDERS: PCP Internal Medicine; Referring Provider Internal Medicine; Visit Provider Surgery | DX: K65.1 Peritoneal abscess (principal); L68.0 Hirsutism; E11.65 Type 2 diabetes mellitus with hyperglycemia; Z48.03 Encounter for change or removal of drains; Z91.040 Latex allergy status | CPT/HCPCS: 99211 ==

== ENCOUNTER → 2021-05-06 11:06 | Outpatient (BNVA) | payer OTHER, SELFPAY | PROVIDERS: PCP Internal Medicine; Referring Provider Internal Medicine; Visit Provider Surgery ==

== ENCOUNTER → 2021-05-07 11:23 | Outpatient (BNVA) | payer OTHER, SELFPAY | PROVIDERS: PCP Internal Medicine; Visit Provider Surgery | DX: K65.1 Peritoneal abscess (principal) | CPT/HCPCS: 99211 ==

== ENCOUNTER → 2021-05-13 11:06 | Outpatient (BNVA) | payer OTHER, SELFPAY | PROVIDERS: PCP Internal Medicine; Referring Provider Internal Medicine; Visit Provider Surgery | DX: K57.40 Diverticulitis of both small and large intestine with perforation and abscess without bleeding (principal); E11.65 Type 2 diabetes mellitus with hyperglycemia; E11.21 Type 2 diabetes mellitus with diabetic nephropathy; E66.01 Morbid (severe) obesity due to excess calories; E53.8 Deficiency of other specified B group vitamins; E55.9 Vitamin D deficiency, unspecified; E78.5 Hyperlipidemia, unspecified; I10 Essential (primary) hypertension; A41.9 Sepsis, unspecified organism; F17.210 Nicotine dependence, cigarettes, uncomplicated; Z68.33 Body mass index [BMI] 33.0-33.9, adult; Z91.040 Latex allergy status; Z79.4 Long term (current) use of insulin; Z79.891 Long term (current) use of opiate analgesic; Z79.899 Other long term (current) drug therapy | CPT/HCPCS: 99212 ==

== ENCOUNTER → 2021-05-18 10:30 | Outpatient (BNVA) | payer OTHER, SELFPAY | PROVIDERS: PCP Internal Medicine; Referring Provider Internal Medicine; Visit Provider Surgery | DX: Z48.00 Encounter for change or removal of nonsurgical wound dressing (principal) | CPT/HCPCS: 99211 ==

== ENCOUNTER 2021-05-26 08:54 | Outpatient (REF) | payer OTHER, SELFPAY ==
--- NOTE | ~2021-05-26 | CT_ITS ---
EXAMINATION: CT ABDOMEN AND PELVIS WITH CONTRAST CLINICAL INFORMATION: Diverticulitis with abscess COMPARISON: Previous CT scans most recent 04/26 and 12/2020 TECHNIQUE: Multidetector volumetric images were obtained from the superior aspect of the liver through the pubic symphysis following administration 85 mL of Omnipaque 350 intravenous contrast. Sagittal and coronal reformatted images were obtained on the technologist's workstation. Oral contrast: Yes This CT examination was performed using dose optimization techniques as appropriate, variously including the following: *Automated exposure control *Adjustment of mA and/or kV according to patient size (this includes techniques or standardized protocols for targeted exams where dose is matched to indication/reason for exam; i.e. extremities or head) *Use of iterative reconstruction technique DLP: 641 mGy-cm FINDINGS: LUNG BASES: The visualized lung bases are unremarkable. LIVER, GALLBLADDER, AND BILIARY TREE: The liver is enlarged and low in attenuation suggestive of fatty. Gallbladder appears contracted. No focal liver lesion or biliary duct dilatation is seen.. PANCREAS: Unremarkable. SPLEEN: Unremarkable. ADRENAL GLANDS: Unremarkable. KIDNEYS AND URETERS: There is a small 1.5 cm cyst in the left kidney. The kidneys are otherwise unremarkable. No imaging follow-up needed. BLADDER: Not distended and not well evaluated. GASTROINTESTINAL TRACT: There is diverticulosis of the colon. Previously identified diverticulitis appears improved. There is a drainage catheters seen in the left pelvis. This is unchanged in position from most recent exams. No residual fluid collection in the left pelvis is seen. There is no evidence of obstruction, free air or new abscess. There is an super umbilical hernia containing transverse colon and fat. Small and large bowel is unremarkable. The stomach is unremarkable. ABDOMINAL WALL: Supraumbilical or ventral hernia containing fat and transverse colon. Smaller more superior ventral hernia containing fat. No evidence of obstruction. Small umbilical hernia containing fat. LYMPH NODES: Normal. VASCULAR: Unremarkable. PELVIC VISCERA: Unremarkable. OSSEOUS STRUCTURES: Unremarkable. CT/CT abdomen pelvis w con IMPRESSION: Improved diverticulitis. Stable position of left pelvic drainage catheter. No residual abscess. Enlarged fatty liver. Left renal cyst. Supraumbilical hernia containing fat and transverse colon. Smaller more superior ventral hernias containing fat. Small umbilical hernia containing fat.
[2021-05-26] MEDS: iohexoL 350 MG/ML 100 ML INFUS..BTL IV (10:06)
== END 2021-05-26 08:55 | disposition home or self-care (01) ==
LOC: HO.CT 08:54
PROVIDERS: Visit Provider Surgery
DX: K57.20 Diverticulitis of large intestine with perforation and abscess without bleeding (principal)
CPT/HCPCS: 74177; Q9967

== ENCOUNTER → 2021-05-27 09:56 | Outpatient (BNVA) | payer OTHER, SELFPAY | PROVIDERS: PCP Internal Medicine; Referring Provider Internal Medicine; Visit Provider Surgery | DX: E11.65 Type 2 diabetes mellitus with hyperglycemia (principal); E11.21 Type 2 diabetes mellitus with diabetic nephropathy; E78.5 Hyperlipidemia, unspecified; E66.9 Obesity, unspecified; E53.8 Deficiency of other specified B group vitamins; E55.9 Vitamin D deficiency, unspecified; K57.20 Diverticulitis of large intestine with perforation and abscess without bleeding | CPT/HCPCS: 82947; 83036; 99212 ==

== ENCOUNTER → 2021-06-02 10:56 | Outpatient (BNVA) | payer OTHER, SELFPAY | PROVIDERS: PCP Internal Medicine; Referring Provider Internal Medicine; Visit Provider Surgery | DX: K57.40 Diverticulitis of both small and large intestine with perforation and abscess without bleeding (principal); E11.65 Type 2 diabetes mellitus with hyperglycemia; E11.21 Type 2 diabetes mellitus with diabetic nephropathy; E78.5 Hyperlipidemia, unspecified; E53.8 Deficiency of other specified B group vitamins; E55.9 Vitamin D deficiency, unspecified; F17.210 Nicotine dependence, cigarettes, uncomplicated; Z91.040 Latex allergy status; Z79.891 Long term (current) use of opiate analgesic; Z79.899 Other long term (current) drug therapy | CPT/HCPCS: 99212 ==

== ENCOUNTER 2021-06-12 13:43 | Inpatient (IN) | payer OTHER, SELFPAY ==
--- NOTE | ~2021-06-12 | CT_ITS ---
EXAMINATION: CT ABDOMEN AND PELVIS WITH CONTRAST CLINICAL INFORMATION: Abdominal pain status post colonic abscess drain removal COMPARISON: CT of the abdomen and pelvis 05/26/2021 and 04/26/2021 TECHNIQUE: Multidetector volumetric images were obtained from the superior aspect of the liver through the pubic symphysis following administration 100 mL of Omnipaque 350 intravenous contrast. Sagittal and coronal reformatted images were obtained on the technologist's workstation. Oral contrast: No This CT examination was performed using dose optimization techniques as appropriate, variously including the following: *Automated exposure control *Adjustment of mA and/or kV according to patient size (this includes techniques or standardized protocols for targeted exams where dose is matched to indication/reason for exam; i.e. extremities or head) *Use of iterative reconstruction technique DLP: 732 mGy-cm FINDINGS: LUNG BASES: The visualized lung bases are unremarkable. LIVER, GALLBLADDER, AND BILIARY TREE: The liver is enlarged, measuring up to 24 cm in the craniocaudal dimension. Again demonstrated is decreased attenuation of the hepatic parenchyma, compatible with hepatic steatosis. No focal hepatic lesion or biliary ductal dilatation is present. The gallbladder is unremarkable with no evidence of radiopaque gallstones, gallbladder wall thickening, or obvious pericholecystic inflammatory changes. PANCREAS: Unremarkable. SPLEEN: Unremarkable. ADRENAL GLANDS: Unremarkable. KIDNEYS AND URETERS: The kidneys are normal in size, shape, and attenuation. No hydronephrosis, hydroureter, or calculi seen. No perinephric stranding. BLADDER: Unremarkable. GASTROINTESTINAL TRACT/ABDOMINAL WALL: There is been interval removal of the previously seen drain in the left pelvis. There is reaccumulation of a fluid collection adjacent to the sigmoid colon measuring approximately 4.8 x 2.7 x 3.4 cm, decreased in size as compared to 04/26/2021. There is surrounding stranding of the mesenteric fat. Again demonstrated is scattered diverticulosis of the colon. Again seen is a ventral hernia superior and slightly right of the umbilicus, containing fat and a portion of the transverse colon. No associated bowel obstruction. The appendix is normal. The stomach and small bowel are unremarkable. LYMPH NODES: Normal. VASCULAR: Normal caliber of the abdominal aorta. Scattered atherosclerotic calcifications.. PELVIC VISCERA: Unremarkable. OSSEOUS STRUCTURES: No acute or suspicious osseous abnormality. CT/CT abdomen pelvis w con IMPRESSION: 1. Reaccumulation of abscess adjacent to the sigmoid colon, now measuring 4.8 x 2.7 x 3.4 cm. 2. Redemonstration of ventral wall hernia transverse colon. No associated bowel obstruction.
[2021-06-12 13:48] VITALS: BP 141/89; PULSE 118; RESP 18; TEMP 36.9; O2SAT 98; BMI 34.6
--- NOTE | 2021-06-12 15:54 | ED.GENADULT ---
HPI - General Adult General Chief complaint: General Medical Stated complaint: abscess Time Seen by Provider: 06/12/21 14:10 Source: patient Mode of arrival: ambulatory Limitations: no limitations History of Present Illness HPI narrative: 45-year-old female with a history of obesity, diabetes, nephropathy, hyperlipidemia, sigmoid diverticulitis with abscess requiring CT guided drain placement on 04/28/21 that was removed in the office by Dr. Gómez on 06/02 comes to the ER from home c/o worsening abdominal and pelvic pain. She feels like the previous abscess is back and growing. she reports when the drain came male in the office she had an immediate strange sensation and felt like the abscess came back. She was reassured with plan to follow-up in the office in 1 month. She had intermittent fullness and discomfort in her pelvic area over the last week or so. About 5 days ago when patient was walking to the store she had acute onset of worsening pelvic pain when she was walking uphill. Pain has been severe since. She feels an intense pelvic pressure both posteriorly and anteriorly. She has nausea but no vomiting. No diarrhea or fever but reports chills. LMP earlier this month. MD complaint: abdominal and pelvic pain Onset (ago): week(s) (1) Location: abdomen and pelvis Radiation: other ( rectum) Severity: severe Severity scale (1-10): 9 Quality: sharp, dull and constant Pain Consistency: constant Relieving factors: none Exacerbating factors: movement Associated symptoms: fever/chills, loss of appetite, malaise, nausea/vomiting and weakness Treatments prior to arrival: none Related Data Home Medications Medication Instructions Recorded Confirmed ascorbic acid (vitamin C) 500 mg 500 mg PO DAILY 03/31/21 05/27/21 tablet (Vitamin C) biotin 1,000 mcg chewable tablet 1,000 mcg PO DAILY 03/31/21 05/27/21 cyanocobalamin (vitamin B-12) 1,000 mcg PO DAILY 03/31/21 05/27/21 1,000 mcg tablet fluticasone 250 mcg-salmeterol 50 1 puff INHALATION BID 03/31/21 05/27/21 mcg/dose blistr powdr for inhalation (Advair Diskus) cholecalciferol (vitamin D3) 25 25 mcg PO DAILY 04/15/21 05/27/21 mcg (1,000 unit) tablet (Vitamin D3) ibuprofen 200 mg tablet 200 mg PO Q6H PRN 04/15/21 05/27/21 montelukast 10 mg tablet 1 tab PO BEDTIME 04/15/21 05/27/21 multivitamin 1 tab PO DAILY 04/15/21 05/27/21 blood sugar diagnostic (FreeStyle 04/26/21 05/27/21 Test) fexofenadine 180 mg tablet 1 tab PO DAILY PRN 04/26/21 05/27/21 lisinopril 2.5 mg tablet 2.5 mg PO DAILY 05/27/21 05/27/21 dulaglutide 0.75 mg/0.5 mL 0.75 mg SUBCUT QWEEK 06/02/21 subcutaneous pen injector (Trulicity) Previous Rx's Medication Instructions Recorded docusate sodium 100 mg capsule 100 mg PO BID PRN #30 cap 04/06/21 (Colace) ciprofloxacin HCl 500 mg tablet 500 mg PO BID #18 tab 05/03/21 (Cipro) metronidazole 500 mg tablet 500 mg PO TID #27 tab 05/03/21 oxycodone 5 mg tablet 5 mg PO Q4H PRN #25 tab 05/04/21 atorvastatin 40 mg tablet 40 mg PO BEDTIME #60 tab 05/27/21 insulin glargine 100 unit/mL (3 10 unit (0.1 mL) SUBCUT QPM #15 ml 05/27/21 mL) subcutaneous pen (Lantus Solostar U-100 Insulin) pen needle, diabetic 32 gauge x #100 ea 05/27/2132 (BD Ultra-Fine Macy Pen Needle) flash glucose scanning reader #1 ea 06/03/21 (FreeStyle Tiff 2 [place]) flash glucose sensor (FreeStyle #2 ea 06/03/21 Tiff 2 Sensor) Allergies Allergy/AdvReac Type Severity Reaction Status Date / Time latex [LATEX] Allergy Mild RASH Verified 06/02/21 11:13 Review of Systems Review of Systems: Constitutional: No Fever, + Chills ENT/Mouth: No sore throat, No Rhinorrhea, No Swallowing Difficulty Eyes: No Eye Pain, No Swelling, No Redness Cardiovascular: No Chest Pain, No SOB, No Orthopnea, No Edema Respiratory: No Cough, No Sputum, No Wheezing, No dyspnea Gastrointestinal: + Nausea, No Vomiting, No Diarrhea, + abdominal Pain, No Hematochezia, No Melena Genitourinary: No Dysuria, No Urinary Frequency, No Hematuria Musculoskeletal: No joint pain, No Myalgias Skin: No Skin Lesions, No rash Neuro: + Weakness, No Numbness, No Dizziness, No Headache Psych: + Anxiety/Panic, No Depression Heme/Lymph: No Bruising, No Lymphadenopathy Endocrine: No Polyuria, No Polydipsia PMFSH Past Medical History Medical History B12 deficiency Diabetes type 2, uncontrolled Diabetic nephropathy associated with type 2 diabetes mellitus Diverticulitis of both large and small intestine with perforation and abscess Diverticulitis of large intestine with abscess Dyslipidemia Hirsutism Hypertension Morbid obesity with BMI of 50.0-59.9, adult Sepsis Vitamin D deficiency Surgical History History of ankle surgery Hx of section Hx of umbilical hernia repair Family History Family History Father Throat cancer Cirrhosis Mother Diabetes Social History Social History Household Members: None Housing: House Do you presently have visiting nurse or other home services: Yes Alcohol intake: never Patient Tobacco Use Status: Current everyday Tobacco user Tobacco use type: Cigarette Cigarette Packs Per Day: 1 Cigarettes Per Day: 20.0 Years Smoked: 30 e-Cigarette/Vaping Use: Never Used Second Hand Smoke Exposure: Yes Use of substances other than those prescribed or required for medical reasons: Yes Substance Use Type: Marijuana Substance Use Frequency: Occasionally Advance Directives: Yes Advance Directives on File: Yes Advance Directives Date on File: 05/05/21 Patient : No service: No Current occupational status: disabled Physical Exam Vital Signs: Vital Signs: Last Vital Signs Temp 97.6 F 06/12/21 19:32 Pulse 96 06/12/21 19:32 Resp 18 06/12/21 19:32 BP 125/88 06/12/21 19:32 Pulse Ox 97 06/12/21 19:32 Body Mass Index 34.6 Appearance: Alert. Oriented X3. Appears uncomfortable, laying on her right side Eyes: Pupils equal, round and reactive to light. ENT: Pharynx normal. Neck: Normal inspection. Neck supple. CVS: Normal heart rate and rhythm. Pulses normal. Respiratory: No respiratory distress. Breath sounds normal. Abdomen: Obese, Soft with suprapubic tenderness without rebound or guarding. Left flank and low lumbar area with some soft tissue tenderness as well. Left posterior flank w/well healing area where drain was removed. +BS x4 Skin: Skin warm and dry. Normal skin color. Normal skin turgor. No rashes. Extremities: No lower extremity edema. Neuro: Oriented X 3. No motor deficit. No sensory deficit. Course Course Course Narrative: 45-year-old female with a history of diverticulitis of the sigmoid colon with abscess requiring IR drainage presents back to the ER with worsening pelvic and abdominal pain. She had the drain removed 10 days ago in the office by Dr. Gómez and has been having worsening pain for the last 1 week. She has new chills but no fevers. She arrives the ER tachycardic but afebrile. She appears uncomfortable. Will repeat lab work including lactic acid and cultures. Will get CT scan of the abdomen with contrast for further evaluation of recurrent abscess. Reevaluation(s) Reevaluation #1: WBC 14.1. Lactic acid is normal. She remains afebrile. Pain persists after IV dilaudid. Hemodynamically stable. Additional IV dilaudid ordered. Upon review her cultures previously grew E. coli (resistant to PCN), Enterococcus and Yeast - she was treated with IV Levaquin, IV Flagyl and IV diflucan during her admission. Will discuss IV flagyl with pharmacy to see if stock is back in. Reevaluation #2: CT scan showing reaccumulation of sigmoid abscess 4.[address] Al to admit for further management. Will start her previous therapy of Levaquin, Flagyl and Diflucan. Patient agreeable with admission. Consultations Consultation #1: Dr. Al Medical Decision Making Lab Data Result diagrams: 06/12/21 16:16 06/12/21 16:16 Labs: Lab Results 06/12/21 06/12/21 06/12/21 Range/Units 16:16 16:16 16:16 WBC 14.1 H (4.8-10.8) X10*3/uL RBC 4.84 (4.20-5.50) X10*6/uL Hgb 12.5 (12.0-16.0) g/dl Hct 37.5 (37.0-47.0) % MCV 77.5 L (80.0-98.0) fL MCH 25.8 L (27.0-33.0) pg MCHC 33.3 (31.0-35.0) g/dl RDW 16.1 H (11.0-16.0) % Plt Count 244 (160-400) X10*3/uL MPV 11.8 (9.4-12.3) fL Immature Gran % (Auto) 0.4 (0.0-0.4) % Neut % (Auto) 73.2 H (45-73) % Lymph % (Auto) 20.8 (20-40) % [place] % (Auto) 4.2 (2-11) % Eos % (Auto) 1.0 (0-4) % Baso % (Auto) 0.4 (0-2) % Lymph # (Auto) 2.9 (1.2-4.9) X10*3/uL [place] # (Auto) 0.6 (0.1-1.2) X10*3/uL Eos # (Auto) 0.1 (0.0-0.4) X10*3/uL Baso # (Auto) 0.1 (0.0-0.2) X10*3/uL Abs Immat Gran (auto) 0.05 H (0.00-0.03) X10*3/uL Absolute Neuts (auto) 10.3 H (2.0-8.3) x10*3/uL Absolute Nucleated RBC 0.000 (0.0-0.012) X10*3/uL Nucleated RBC % (auto) 0.0 (0.0-0.2) /100WBC PT (9.9-13.0) SEC INR (0.9-1.1) APTT (24.1-38.0) SEC Sodium 135 (135-145) mmol/L Potassium 4.2 (3.3-5.1) mmol/L Chloride 100 (96-108) mmol/L Carbon Dioxide 25 (22-29) mmol/L Anion Gap 14 (12-20) BUN 7 L (9-16) mg/dL Creatinine 0.85 (0.5-1.4) mg/dL Estim Creat Clear Calc 95.9 Estimated GFR > 60 Random Glucose 349 H (60-115) mg/dL Lactic Acid (0.5-2.0) mmol/L Calcium 9.0 D (8.4-10.2) mg/dL Magnesium 2.0 (1.6-2.6) mg/dL Total Bilirubin 0.6 (0.0-1.0) mg/dL Direct Bilirubin 0.2 (0.0-0.5) mg/dL AST 17 (5-31) U/L ALT 28 (0-31) U/L Alkaline Phosphatase 117 (39-117) U/L C-Reactive Protein 5.82 H (< or = 0.50) mg/dL Total Protein 7.4 (6.5-8.0) g/dL Albumin 3.7 (3.5-5.0) g/dL Beta HCG, Quant < 2 mIU/mL Urine Color Urine Appearance Urine pH (5.0-8.0) Ur Specific [place] (1.005-1.025) Urine Protein (NEG-TRACE) MG/DL Urine Glucose (UA) (NEG) MG/DL Urine Ketones (NEG) MG/DL Urine Blood (NEG) Urine Nitrite (NEG) Ur Leukocyte Esterase (NEG) Urine Test (NEGATIVE) COVID-19 (SINTIA) Negative (Negative) COVID-19 Clin Com See Note 06/12/21 06/12/21 06/12/21 Range/Units 16:16 16:16 18:13 WBC (4.8-10.8) X10*3/uL RBC (4.20-5.50) X10*6/uL Hgb (12.0-16.0) g/dl Hct (37.0-47.0) % MCV (80.0-98.0) fL MCH (27.0-33.0) pg MCHC (31.0-35.0) g/dl RDW (11.0-16.0) % Plt Count (160-400) X10*3/uL MPV (9.4-12.3) fL Immature Gran % (Auto) (0.0-0.4) % Neut % (Auto) (45-73) % Lymph % (Auto) (20-40) % [place] % (Auto) (2-11) % Eos % (Auto) (0-4) % Baso % (Auto) (0-2) % Lymph # (Auto) (1.2-4.9) X10*3/uL [place] # (Auto) (0.1-1.2) X10*3/uL Eos # (Auto) (0.0-0.4) X10*3/uL Baso # (Auto) (0.0-0.2) X10*3/uL Abs Immat Gran (auto) (0.00-0.03) X10*3/uL Absolute Neuts (auto) (2.0-8.3) x10*3/uL Absolute Nucleated RBC (0.0-0.012) X10*3/uL Nucleated RBC % (auto) (0.0-0.2) /100WBC PT 11.6 (9.9-13.0) SEC INR 1.0 (0.9-1.1) APTT 34.1 (24.1-38.0) SEC Sodium (135-145) mmol/L Potassium (3.3-5.1) mmol/L Chloride (96-108) mmol/L Carbon Dioxide (22-29) mmol/L Anion Gap (12-20) BUN (9-16) mg/dL Creatinine (0.5-1.4) mg/dL Estim Creat Clear Calc Estimated GFR Random Glucose (60-115) mg/dL Lactic Acid 1.6 (0.5-2.0) mmol/L Calcium (8.4-10.2) mg/dL Magnesium (1.6-2.6) mg/dL Total Bilirubin (0.0-1.0) mg/dL Direct Bilirubin (0.0-0.5) mg/dL AST (5-31) U/L ALT (0-31) U/L Alkaline Phosphatase (39-117) U/L C-Reactive Protein (< or = 0.50) mg/dL Total Protein (6.5-8.0) g/dL Albumin (3.5-5.0) g/dL Beta HCG, Quant mIU/mL Urine Color Urine Appearance Urine pH (5.0-8.0) Ur Specific [place] (1.005-1.025) Urine Protein (NEG-TRACE) MG/DL Urine Glucose (UA) (NEG) MG/DL Urine Ketones (NEG) MG/DL Urine Blood (NEG) Urine Nitrite (NEG) Ur Leukocyte Esterase (NEG) Urine Test NEGATIVE (NEGATIVE) COVID-19 (SINTIA) (Negative) COVID-19 Clin Com 06/12/21 Range/Units 18:13 WBC (4.8-10.8) X10*3/uL RBC (4.20-5.50) X10*6/uL Hgb (12.0-16.0) g/dl Hct (37.0-47.0) % MCV (80.0-98.0) fL MCH (27.0-33.0) pg MCHC (31.0-35.0) g/dl RDW (11.0-16.0) % Plt Count (160-400) X10*3/uL MPV (9.4-12.3) fL Immature Gran % (Auto) (0.0-0.4) % Neut % (Auto) (45-73) % Lymph % (Auto) (20-40) % [place] % (Auto) (2-11) % Eos % (Auto) (0-4) % Baso % (Auto) (0-2) % Lymph # (Auto) (1.2-4.9) X10*3/uL [place] # (Auto) (0.1-1.2) X10*3/uL Eos # (Auto) (0.0-0.4) X10*3/uL Baso # (Auto) (0.0-0.2) X10*3/uL Abs Immat Gran (auto) (0.00-0.03) X10*3/uL Absolute Neuts (auto) (2.0-8.3) x10*3/uL Absolute Nucleated RBC (0.0-0.012) X10*3/uL Nucleated RBC % (auto) (0.0-0.2) /100WBC PT (9.9-13.0) SEC INR (0.9-1.1) APTT (24.1-38.0) SEC Sodium (135-145) mmol/L Potassium (3.3-5.1) mmol/L Chloride (96-108) mmol/L Carbon Dioxide (22-29) mmol/L Anion Gap (12-20) BUN (9-16) mg/dL Creatinine (0.5-1.4) mg/dL Estim Creat Clear Calc Estimated GFR Random Glucose (60-115) mg/dL Lactic Acid (0.5-2.0) mmol/L Calcium (8.4-10.2) mg/dL Magnesium (1.6-2.6) mg/dL Total Bilirubin (0.0-1.0) mg/dL Direct Bilirubin (0.0-0.5) mg/dL AST (5-31) U/L ALT (0-31) U/L Alkaline Phosphatase (39-117) U/L C-Reactive Protein (< or = 0.50) mg/dL Total Protein (6.5-8.0) g/dL Albumin (3.5-5.0) g/dL Beta HCG, Quant mIU/mL Urine Color YELLOW Urine Appearance HAZY Urine pH 6.0 (5.0-8.0) Ur Specific [place] 1.020 (1.005-1.025) Urine Protein NEG (NEG-TRACE) MG/DL Urine Glucose (UA) 500 H (NEG) MG/DL Urine Ketones NEG (NEG) MG/DL Urine Blood NEG (NEG) Urine Nitrite NEG (NEG) Ur Leukocyte Esterase NEG (NEG) Urine Test (NEGATIVE) COVID-19 ([facility]INTIA) (Negative) COVID-19 Clin Com Critical Care Time Critical Care Time Critical Care Time: Yes Total Critical Care Time: 36 Attestation: I have personally provided critical care time exclusive of time spent on separately billable procedures. Time includes review of lab data, radiology results, discussion with consultants, and monitoring for potential decompensation. Intervention performed as documented. Discharge Plan Discharge Clinical Impression: Abscess of sigmoid colon Patient Disposition: Admitted As Inpatient
[2021-06-12 16:00] VITALS: BP 146/91; PULSE 100; RESP 18; TEMP 36.7; O2SAT 97
[2021-06-12] MEDS: HYDROmorphone HCl 1 MG/ML SYRINGE IVPUSH ×3 (16:28→20:21)
[2021-06-12 16:31] LABS: Basophils Absolute Auto 0.1 X10*3/uL (0.0-0.2); Basophils Percent Auto 0.4 % (0-2); Eosinophils Absolute Auto 0.1 X10*3/uL (0.0-0.4); Hematocrit 37.5 % (37.0-47.0); Hemoglobin 12.5 g/dl (12.0-16.0); Imm Gran Abs Auto 0.05 X10*3/uL (0.00-0.03); Imm Gran Pct Auto 0.4 % (0.0-0.4); Lymphocytes Absolute Auto 2.9 X10*3/uL (1.2-4.9); Lymphocytes Percent Auto 20.8 % (20-40); MANUAL DIFF FLAG NO; Mean Corpuscular HGB Conc 33.3 g/dl (31.0-35.0); Mean Corpuscular Hemoglobin 25.8 pg (27.0-33.0); Mean Corpuscular Volume 77.5 fL (80.0-98.0); Mean Platelet Volume 11.8 fL (9.4-12.3); Monocytes Absolute Auto 0.6 X10*3/uL (0.1-1.2); Monocytes Percent Auto 4.2 % (2-11); Neutrophils Absolute Auto 10.3 x10*3/uL (2.0-8.3); Neutrophils Percent Auto 73.2 % (45-73); Platelet Count 244 X10*3/uL (160-400); Red Blood Count 4.84 X10*6/uL (4.20-5.50); Red Cell Distribution Width 16.1 % (11.0-16.0); White Blood Count 14.1 X10*3/uL (4.8-10.8)
[2021-06-12] MEDS: 0.9 % Sodium Chloride 1,000 ML 999 ML IVCONT (16:32)
[2021-06-12 16:33] LABS: Prothrombin Time 11.6 SEC (9.9-13.0)
[2021-06-12 16:35] LABS: Partial Thromboplastin Time 34.1 SEC (24.1-38.0)
--- NOTE | 2021-06-12 16:35 | PC.NURSE ---
patient a&ox3, vss, iv inserted, labs drawn, pt medicated for pain, will continue to monitor.
[2021-06-12 16:40] LABS: COVID-19 Test Negative (Negative); IDNOW Serial# 9DD0AD1C; Lactic Acid 1.6 mmol/L (0.5-2.0)
[2021-06-12 16:44] LABS: Alanine Aminotransferase 28 U/L (0-31); Albumin Level 3.7 g/dL (3.5-5.0); Alkaline Phosphatase 117 U/L (39-117); Anion Gap 14 (12-20); Aspartate Amino Transferase 17 U/L (5-31); Bilirubin Direct 0.2 mg/dL (0.0-0.5); Bilirubin Total 0.6 mg/dL (0.0-1.0); Blood Urea Nitrogen 7 mg/dL (9-16); C Reactive Protein 5.82 mg/dL (< or = 0.50); Carbon Dioxide 25 mmol/L (22-29); Chloride 100 mmol/L (96-108); Creatinine Clr Calc Pharmacy 95.9; Estimated Glomerular Filt Rate > 60; Glucose Random 349 mg/dL (60-115); Potassium 4.2 mmol/L (3.3-5.1); Sodium 135 mmol/L (135-145); Total Protein 7.4 g/dL (6.5-8.0)
[2021-06-12 18:25] LABS: Appearance Urine HAZY; Color Urine YELLOW; Glucose Urine UA 500 MG/DL (NEG); Leukocyte Esterase Urine NEG (NEG); Nitrite Urine NEG (NEG); Urine Blood NEG (NEG); Urine Ketones NEG (NEG); Urine Protein NEG (NEG-TRACE)
[2021-06-12 18:27] LABS: UPreg QC Valid YES; Urine Pregnancy NEGATIVE (NEGATIVE)
[2021-06-12 18:34] LABS: HCG Quantitative < 2 mIU/mL
[2021-06-12] MEDS: iohexoL 350 MG/ML 100 ML INFUS..BTL IV (18:47)
[2021-06-12 19:32] VITALS: BP 125/88; PULSE 96; RESP 18; TEMP 36.4; O2SAT 97
[2021-06-12] MEDS: metroNIDAZOLE/NS 500 MG/100 ML PIGGYBACK 100 MG IV (19:51)
[2021-06-12] MEDS: Ketorolac Tromethamine 15 MG/ML VIAL 30 MG IVPUSH (19:51)
--- NOTE | 2021-06-12 20:42 | PC.NURSE ---
patient a&ox3, family at bedside, pt continues to c/o pain despite pain medications, iv antibiotics running per order, provider at bedside as patient stated she wasnt wanting to stay in the hospital but would come back monday to be admitted. call carnes within reach, will continue to monitor.
[2021-06-12] MEDS: levoFLOXacin/D5W 750 MG/150 ML PIGGYBACK 100 MG IV (21:05)
--- NOTE | 2021-06-12 21:07 | PC.NURSE ---
patient a&ox3, pt states her pain has decreased to a 3, second iv antibiotic started per order, will continue to monitor.
[2021-06-12 22:40] VITALS: BP 119/81; PULSE 87; RESP 18; TEMP 36.7
[2021-06-12] MEDS: Fluconazole in NaCl,Iso-Osm 200 MG/100 ML PIGGYBACK 100 MG IV (22:45)
--- NOTE | 2021-06-12 23:05 | PC.NURSE ---
spoke with dr. lewis about patient wanting to discharge and come back after securing her house, provider stated that if she had to go he couldnt prevent her from doing so. this information was passed on to nurse who took over her care at 11p. patients last bag of IV medication is currently running.
--- NOTE | 2021-06-12 23:45 | PC.NURSE ---
FIRST PATIENT CONTACT: PATIENT IS ALERT AND ORIENTED, ANTIBIOTICS WERE NOT COMPLETED, PATIENT HAD NONE OF THE ANTIBIOTICS INFUSED DUE TO A DOWN STREAM OCCLUSION FROM BENDING HER ARM. YELLING AT THIS RN, DEMANDING TO REMOVE THE IV THAT MEDICATION I GOT HAS GIVEN ME CHEST PAIN AND I AM DYING AND NO ONE CARES . SCREAMING AND RAISING HER VOICE THAT THIS RN AND PCT NERUPA IN ROOM THAT SHE IS LEAVING, DOES NOT WANT TO STAY FOR FURTHER TREATMENT AND ADDRESS THE CHEST PAIN SHE IS REPORTING. INFORMING THE PATIENT THAT SHE DID NOT RECEIVE ANY OF THE MEDICATION BECAUSE THE [facility] HAD NOT DELIVERED ANY TO HER ACCORDING TO THE MACHINE. THIS JUST CAUSING THE PATIENT TO SCREAM AND YELL LOUDER AT STAFF. PATIENT IS WANTING TO LEAVE. PREVIOUS RN HAM SPOKE WITH THE MD RESPONSIBLE FOR PATIENTS CARE ABOUT PATIENT LEAVING AMA AND THAT MD IS AWARE THE PATIENT WAS LEAVING. PATIENT IS ABLE TO DRESS HERSELF AND AMBULATE STEADILY FROM THE DEPARTMENT WITH NO DISTRESS. COMMODITY BUYER MIRTA EXPLAINING AMA PAPERWORK TO PATIENT DUE TO PATIENT NOT WANTING FURTHER INTERACTION WITH THIS RN.
--- NOTE | 2021-06-12 23:55 | PC.NURSE ---
PATIENT RANG CALL CHEUNG FOR NURSE , THE NURSE WAS BUSY WITH ANOTHER PATIENT THIS CHRISTIAN COUNSELOR WHEN IN TO PATIENT ROOM ,ASK WHAT I CAN HELP HER WITH PATIENT STARTED TO CURSED AT ME ,THAT WE WERE KILLING HER ,I SAID TO PATIENT THAT SORRY SHE FELT THAT WAY ,AND THIS WAS MY FIRST INTERACTION WITH HER ,I TOLD PATIENT I WAS GOING TO GET THE NURSE ,MY SELF AND RN WENT TO PATIENT ROOM,PATIENT STARTED TO BE VERY RUDE AND DISRESPECTFUL ,RN POLITELY ADDRESS PATIENT CONCERN PATIENT STARTED TO SHOUT AT RN ,VERBALLY ABUSIVE TOWARD RN ,RN POLITELY SAID TO PATIENT THAT THIS WAS HER FIRST INTERACTION WITH PATIENT , RN LEAVE PATIENT ROOM PATIENT APOLOGIZED TO ME FOR TREATED ME BAD ,THEN SAID SHE FELT LIKING PUNCHING RN.
--- NOTE | 2021-06-13 | PC.NURSE ---
RN CALLED TO ROOM AFTER PT EXPRESSED FEELINGS THAT YOU FUCKING PEOPLE ARE TRYING TO KILL ME PT STATES THAT CARE THAT SHE WAS GIVEN HERE [facility] WAS TERRIBLE AND SHE WAS 'LEFT TO IN THIS ROOM PT IS SITTING UP IN BED AT THIS TIME YELLING AT THIS RN WHILE EATING PEANUT M&MS STATING I CALLED FOR HELP AND NONE OF YALL CAME IN, I COULD BE PATIENT CONTINUED TO EAT M&MS WHILE DISCUSSING AMA PAPER WORK, PT ADVISED TO R/ TO ED SOON POSSIBLE TO BE ADMITTED PER MD MEDICATION. PT STATING I AM JUST GOING TO WAIT UNTIL MONDAY AND CALL AND COMPLAIN BECAUSE NONE OF YALL WERE TAKING CARE OF ME PT DID SIGN AMA PAPERWORK AND CONTINUED TO SIT ON HOSPITAL STRETCHER SNACKING WHILE VERBALLY ABUSING STAFF, SWEARING AND MAKING ACCUSATORY STATEMENTS RE: HER CARE HERE TONIGHT.
--- NOTE | 2021-06-15 12:32 | P.DS_ITS ---
DS: Providers Provider Date of Service: 06/12/21 Date of admission: 06/12/21 19:43 Primary care physician: Maverick Pardo MD DS: Diagnosis Discharge Diagnosis (1) Abscess of sigmoid colon: Status: Acute DS: Summary Hospital Course Hospital Course: 45-year-old female patient with complaints of abdominal pain in the left lower quadrant previously identified as having abdominal abscess due to diverticulitis. She presented to the emergency department due to increased abdominal pain. Evaluation by the emergency department revealed an abscess in the left lower quadrant. Condition was made for admission for IV antibiotics and possible IR drainage of the abscess once again. Patient unfortunately signed out against medical advice and was not admitted. Time Spent with Patient Time attestation: Total time spent providing and/or coordinating discharge services: Discharge coordination time: Less than 30 minutes Quality: Stroke Does the patient have a stroke diagnosis?: No Physical Exam Vital Signs: Vital Signs: Last Vital Signs Temp 98.0 F 06/12/21 22:40 Pulse 87 06/12/21 22:40 Resp 18 06/12/21 22:40 BP 119/81 06/12/21 22:40 Pulse Ox 97 06/12/21 19:32 Body Mass Index 34.6 Patient signed out AMA and was not examined by me DS: Data Data Completed and Pending Completed studies during hospitalization [Text1]: Procedures Drainage of Pelvic Cavity with Drainage Device, Percutaneous Approach (04/26/21) Drainage of Retroperitoneum, Percutaneous Approach (04/14/21) Labs on day of discharge: Preliminary micro results at discharge 06/12/21 16:16 Blood Culture - Preliminary Blood - Venous No growth after 48 hours. 06/12/21 16:16 Blood Culture - Preliminary Blood - Venous No growth after 48 hours. Discharge Plan Discharge Patient Disposition: Left Against Medical Advice Discharge Diagnosis: Abscess sigmoid colon Referrals: Maverick Pardo MD [Primary Care Provider] - 1 Week Kaushik Gómez MD [Physician] - 06/14/21 Discharge Medications: No Action (DME) FreeStyle Tiff 2 [place] Misc See Rx Instructions .ROUTE .MEDSUPPLY Qty: 1 RF: 0 (DME) FreeStyle Tiff 2 Sensor Kit See Rx Instructions .ROUTE .MEDSUPPLY Qty: 2 RF: 11 fluticasone propion-salmeterol [Advair Diskus] 250-50 mcg/dose blister with device 1 puff inhalation BID RF: 0 cyanocobalamin (vitamin B-12) 1,000 mcg Tablet 1,000 mcg PO DAILY RF: 0 ascorbic acid (vitamin C) [Vitamin C] 500 mg Tablet 500 mg PO DAILY RF: 0 biotin 1,000 mcg Tablet,Chewable 1,000 mcg PO DAILY RF: 0 docusate sodium [Colace] 100 mg capsule 100 mg PO BID PRN (Reason: constipation) Qty: 30 RF: 0 montelukast 10 mg tablet 1 tab PO BEDTIME RF: 0 multivitamin Tablet 1 tab PO DAILY RF: 0 ibuprofen 200 mg Tablet 200 mg PO Q6H PRN (Reason: Pain) RF: 0 cholecalciferol (vitamin D3) [Vitamin D3] 25 mcg (1,000 unit) Tablet 25 mcg PO DAILY RF: 0 fexofenadine 180 mg tablet 1 tab PO DAILY PRN (Reason: Allergy Symptoms) RF: 0 (DME) FreeStyle Test Strip See Rx Instructions strip .ROUTE DAILY RF: 0 ciprofloxacin HCl [Cipro] 500 mg tablet 500 mg PO BID Qty: 18 RF: 0 metronidazole 500 mg tablet 500 mg PO TID Qty: 27 RF: 0 oxycodone 5 mg tablet 5 mg PO Q4H PRN (Reason: pain) Qty: 25 RF: 0 lisinopril 2.5 mg tablet 2.5 mg PO DAILY RF: 0 Lantus Solostar U-100 Insulin 100 unit/mL (3 mL) insulin pen 10 unit subcut QPM Qty: 15 RF: 3 (DME) pen needle, diabetic [BD Ultra-Fine Macy Pen Needle] 32 gauge x 5/32 needle See Rx Instructions .ROUTE .MEDSUPPLY Qty: 100 RF: 3 atorvastatin 40 mg tablet 40 mg PO BEDTIME Qty: 60 RF: 11 Trulicity 0.75 mg/0.5 mL pen injector 0.75 mg subcut QWEEK RF: 0 Discharge Orders: Discharge Order (Routine); Ordered 06/15/21 Ordered By: Jose Al Care Plan Goals: Perforated sigmoid diverticulitis abscess Health Concerns: Continued abscess, patient discharged against medical advise Plan of Treatment: Follow-up Dr. Gómez early next week Assessment: Diverticular abscess Discharge Date/Time: 06/13/21 08:35
== END 2021-06-13 08:35 | disposition left against medical advice (07) | DRG 244 ==
LOC: HO.ED 19:49 → HO.EDOVER 19:51 → HO.IMC 20:01 → HO.EDOVER 22:15
PROVIDERS: Physician Assistant; Admitting Provider Surgery; Emergency Provider Emergency Medicine Emergency Medical Services; PCP Internal Medicine; Visit Provider Surgery
DX: K57.20 Diverticulitis of large intestine with perforation and abscess without bleeding (principal); E11.40 Type 2 diabetes mellitus with diabetic neuropathy, unspecified; F17.210 Nicotine dependence, cigarettes, uncomplicated; Z20.822 Contact with and (suspected) exposure to COVID-19; Z71.6 Tobacco abuse counseling; Z91.040 Latex allergy status; Z79.1 Long term (current) use of non-steroidal anti-inflammatories (NSAID); Z79.4 Long term (current) use of insulin; Z79.899 Other long term (current) drug therapy
CPT/HCPCS: 36415; 74177; 80048; 80076; 81003; 81025; 83605; 83735; 84702; 85025; 85610; 85730; 86140; 87040; 87635; 96361; 96365; 96375; 96376; 99284; 99291; J1170; J1450; J1885; J1956; Q9967

== ENCOUNTER 2021-07-07 11:13 | Outpatient (REF) | payer OTHER, SELFPAY ==
--- NOTE | 2021-07-07 11:18 | ECG_ITS ---
Test Reason : preop Blood Pressure : / mmHG Vent. Rate : 097 BPM Atrial Rate : 097 BPM P-R Int : 116 ms QRS Dur : 066 ms QT Int : 348 ms P-R-T Axes : 053 030 015 degrees QTc Int : 441 ms Normal sinus rhythm Normal ECG When compared with ECG of 26-APR-2021 17:43, No significant change was found Referred By: Barb Delong Electronically Signed By:ISAC LAMBERT MD
[2021-07-07 11:32] LABS: MANUAL DIFF FLAG NO
[2021-07-07 11:48] LABS: Basophils Absolute Auto 0.1 X10*3/uL (0.0-0.2); Basophils Percent Auto 0.7 % (0-2); Eosinophils Absolute Auto 0.2 X10*3/uL (0.0-0.4); Eosinophils Percent Auto 1.8 % (0-4); Hematocrit 39.3 % (37.0-47.0); Hemoglobin 13.2 g/dl (12.0-16.0); Imm Gran Abs Auto 0.05 X10*3/uL (0.00-0.03); Imm Gran Pct Auto 0.4 % (0.0-0.4); Lymphocytes Absolute Auto 3.3 X10*3/uL (1.2-4.9); Lymphocytes Percent Auto 29.9 % (20-40); Mean Corpuscular HGB Conc 33.6 g/dl (31.0-35.0); Mean Corpuscular Hemoglobin 26.2 pg (27.0-33.0); Mean Platelet Volume 11.5 fL (9.4-12.3); Monocytes Absolute Auto 0.4 X10*3/uL (0.1-1.2); Monocytes Percent Auto 3.8 % (2-11); Neutrophils Absolute Auto 7.1 x10*3/uL (2.0-8.3); Neutrophils Percent Auto 63.4 % (45-73); Platelet Count 276 X10*3/uL (160-400); Red Blood Count 5.04 X10*6/uL (4.20-5.50); Red Cell Distribution Width 16.3 % (11.0-16.0); White Blood Count 11.1 X10*3/uL (4.8-10.8)
[2021-07-07 11:56] LABS: Prothrombin Time 11.8 SEC (9.9-13.0)
[2021-07-07 11:59] LABS: Partial Thromboplastin Time 33.3 SEC (24.1-38.0)
[2021-07-07 12:22] LABS: HCG Quantitative < 2 mIU/mL
[2021-07-07 12:23] LABS: Anion Gap 12 (12-20); Carbon Dioxide 24 mmol/L (22-29); Chloride 104 mmol/L (96-108); Potassium 4.3 mmol/L (3.3-5.1); Sodium 136 mmol/L (135-145)
[2021-07-07 12:24] LABS: Alanine Aminotransferase 32 U/L (0-31); Albumin Level 4.1 g/dL (3.5-5.0); Alkaline Phosphatase 107 U/L (39-117); Aspartate Amino Transferase 32 U/L (5-31); Bilirubin Total 0.7 mg/dL (0.0-1.0); Blood Urea Nitrogen 8 mg/dL (9-16); Calcium 9.9 mg/dL (8.4-10.2); Cholesterol 275 mg/dL; Estimated Glomerular Filt Rate > 60; Glucose Random 246 mg/dL (60-115); HDL Cholesterol 32 mg/dL; LDL Cholesterol Calculated 166 mg/dl; Total Protein 8.1 g/dL (6.5-8.0); Triglycerides 385 mg/dL
[2021-07-07 12:37] LABS: Vitamin D 25-OH Total 8.8 ng/mL (>30)
[2021-07-07 12:47] LABS: Appearance Urine CLEAR; Color Urine YELLOW; Glucose Urine UA NEG (NEG); Leukocyte Esterase Urine NEG (NEG); Nitrite Urine NEG (NEG); PH 5.5 (5.0-8.0); Specific Gravity - Urine 1.025 (1.005-1.025); UACC Culture Trigger NO; Urine Blood 3+ (NEG); Urine Ketones NEG (NEG); Urine Protein NEG (NEG-TRACE)
[2021-07-07 13:00] LABS: Squamous Epithelial Cell Urine 1+ /LPF
[2021-07-07 13:01] LABS: RBC Urine 30-49 /HPF (0); WBC Urine 0 /HPF (0-4)
[2021-07-09 04:36] LABS: LDL Cholesterol Direct 201 mg/dL (<100)
== END 2021-07-07 11:14 | disposition home or self-care (01) ==
LOC: HO.LAB 11:13
PROVIDERS: Nurse Practitioner Gerontology; Visit Provider Nurse Practitioner Family
DX: Z01.818 Encounter for other preprocedural examination (principal); E11.21 Type 2 diabetes mellitus with diabetic nephropathy; E55.9 Vitamin D deficiency, unspecified
CPT/HCPCS: 36415; 80053; 80061; 81001; 82306; 83721; 84702; 85025; 85610; 85730; 93005

== ENCOUNTER 2021-07-21 10:40 | Outpatient (REF) | payer OTHER, SELFPAY ==
[2021-07-21 11:48] LABS: Appearance Urine HAZY; Color Urine YELLOW; Glucose Urine UA NEG (NEG); Leukocyte Esterase Urine 2+ (NEG); Nitrite Urine NEG (NEG); PH 5.5 (5.0-8.0); Specific Gravity - Urine 1.025 (1.005-1.025); UACC Culture Trigger YES; Urine Blood 3+ (NEG); Urine Ketones NEG (NEG); Urine Protein TRACE MG/DL (NEG-TRACE)
[2021-07-21 11:54] LABS: Creatinine Urine 134.54 mg/dL
[2021-07-21 12:00] LABS: Cholesterol 249 mg/dL; HDL Cholesterol 32 mg/dL; LDL Cholesterol Calculated 158 mg/dl; Triglycerides 296 mg/dL
[2021-07-21 12:02] LABS: Squamous Epithelial Cell Urine 3+ /LPF
[2021-07-21 12:02] LABS: Estimated Average Glucose 232 mg/dL; Hemoglobin A1c % 9.7 %
[2021-07-21 12:03] LABS: Bacteria Urine TRACE /LPF
[2021-07-21 12:24] LABS: Free T4 (Free Thyroxine) 1.04 ng/dL (0.71-1.85); Thyroid Stimulating Hormone 0.31 uIU/mL (0.32-4.0); Vitamin D 25-OH Total 15.5 ng/mL (>30)
[2021-07-21 12:27] LABS: Vitamin B12 217 pg/mL (200-900)
[2021-07-22 03:31] LABS: LDL Cholesterol Direct 193 mg/dL (<100)
[2021-07-22 13:07] LABS: Calcium (PTHI) 9.5 mg/dL (8.6-10.2); PTHI 46 pg/mL (14-64)
== END 2021-07-21 10:41 | disposition home or self-care (01) ==
LOC: HO.LAB 10:40
PROVIDERS: Internal Medicine Endocrinology, Diabetes & Metabolism; Nurse Practitioner Family; PCP Internal Medicine; Visit Provider Nurse Practitioner Gerontology
DX: Z01.818 Encounter for other preprocedural examination (principal); E11.65 Type 2 diabetes mellitus with hyperglycemia; E55.9 Vitamin D deficiency, unspecified
CPT/HCPCS: 36415; 80061; 81001; 82043; 82306; 82607; 83036; 83721; 83970; 84439; 84443; 87086

== ENCOUNTER → 2021-09-20 09:33 | Outpatient (BNVA) | payer OTHER, SELFPAY | PROVIDERS: PCP Internal Medicine; Visit Provider Nurse Practitioner Gerontology ==

== ENCOUNTER 2021-10-18 07:28 | Outpatient (REF) | payer OTHER, SELFPAY ==
[2021-10-18 11:22] LABS: Free T4 (Free Thyroxine) 1.02 ng/dL (0.71-1.85)
== END 2021-10-18 07:29 | disposition home or self-care (01) ==
LOC: HO.10HDL 07:28
PROVIDERS: PCP Internal Medicine; Visit Provider Nurse Practitioner Gerontology
DX: E11.65 Type 2 diabetes mellitus with hyperglycemia (principal); E11.21 Type 2 diabetes mellitus with diabetic nephropathy; R79.89 Other specified abnormal findings of blood chemistry; E78.5 Hyperlipidemia, unspecified; E66.9 Obesity, unspecified; Z68.35 Body mass index [BMI] 35.0-35.9, adult; E53.8 Deficiency of other specified B group vitamins; E55.9 Vitamin D deficiency, unspecified; Z79.4 Long term (current) use of insulin; Z71.3 Dietary counseling and surveillance
CPT/HCPCS: 36415; 82947; 84439; 84443; 99212

== ENCOUNTER 2022-01-01 14:03 | Emergency (ER) | payer OTHER, SELFPAY ==
[2022-01-01] VITALS (16 sets, daily range): BP systolic 97–153; BP diastolic 52–109; PULSE 74–131; RESP 16–36; TEMP 35.9–36.9; O2SAT 93–98; BMI 35.4
--- NOTE | ~2022-01-01 | CT_ITS ---
EXAMINATION: CT ABDOMEN AND PELVIS WITH CONTRAST CLINICAL INFORMATION: Left lower quadrant pain, question of abscess COMPARISON: CT abdomen pelvis 06/12/2021 TECHNIQUE: Multidetector volumetric images were obtained from the superior aspect of the liver through the pubic symphysis following administration 100 mL of Omnipaque 350 intravenous contrast. Sagittal and coronal reformatted images were obtained on the technologist's workstation. Oral contrast: No This CT examination was performed using dose optimization techniques as appropriate, variously including the following: *Automated exposure control *Adjustment of mA and/or kV according to patient size (this includes techniques or standardized protocols for targeted exams where dose is matched to indication/reason for exam; i.e. extremities or head) *Use of iterative reconstruction technique DLP: 723 mGy-cm FINDINGS: Significant motion degradation limits evaluation. LUNG BASES: Significant motion degradation limits evaluation of the lung bases. ABDOMINAL AND PELVIC WALL: Fat-containing umbilical and fat and colon containing ventral hernias no evidence of bowel obstruction. Midline ventral surgical scar. LIVER AND BILIARY TREE: Hypoattenuating hepatic parenchyma compatible with hepatic steatosis. Liver is enlarged measuring 19.4 cm in span. GALLBLADDER: Unremarkable. PANCREAS: Unremarkable. SPLEEN: Accessory splenules noted. ADRENAL GLANDS: Unremarkable. KIDNEYS AND URETERS: Unremarkable. GASTROINTESTINAL TRACT: Small hiatal hernia. Rectosigmoid surgical anastomosis. No pericolonic abscess appreciated. VASCULAR: Unremarkable. LYMPH NODES/PERITONEUM: No lymphadenopathy. FREE FLUID: None. BLADDER: Unremarkable. PELVIC VISCERA: Left ovary is slightly symmetrically larger compared to the contralateral side with a low-attenuation follicle and a 1.6 cm intermediate attenuation ovarian lesion incompletely characterized, although one differential consideration would include a hemorrhagic cyst. OSSEOUS STRUCTURES: Unremarkable. CT/CT abdomen pelvis w con IMPRESSION: Rectosigmoid surgical anastomosis with no pericolonic abscess appreciated. Left ovary is slightly symmetrically larger compared to the contralateral side with a low-attenuation follicle and a 1.6 cm intermediate attenuation ovarian lesion incompletely characterized, although one differential consideration would include a hemorrhagic cyst. Recommend pelvic ultrasound for further evaluation given symptoms of pain. Hepatomegaly and hepatic steatosis. Significant motion degradation limits evaluation.
[2022-01-01] MEDS: 0.9 % Sodium Chloride 1,000 ML 999 ML IV (16:38)
[2022-01-01 16:47] LABS: Basophils Absolute Auto 0.1 X10*3/uL (0.0-0.2); Basophils Percent Auto 0.6 % (0-2); Eosinophils Absolute Auto 0.2 X10*3/uL (0.0-0.4); Eosinophils Percent Auto 1.5 % (0-4); Hemoglobin 13.5 g/dl (12.0-16.0); Imm Gran Abs Auto 0.05 X10*3/uL (0.00-0.03); Imm Gran Pct Auto 0.3 % (0.0-0.4); Lymphocytes Absolute Auto 5.2 X10*3/uL (1.2-4.9); Lymphocytes Percent Auto 33.7 % (20-40); MANUAL DIFF FLAG SCAN; Mean Corpuscular HGB Conc 33.8 g/dl (31.0-35.0); Mean Corpuscular Hemoglobin 26.2 pg (27.0-33.0); Mean Corpuscular Volume 77.5 fL (80.0-98.0); Mean Platelet Volume 11.3 fL (9.4-12.3); Monocytes Absolute Auto 0.5 X10*3/uL (0.1-1.2); Monocytes Percent Auto 3.2 % (2-11); Neutrophils Absolute Auto 9.4 x10*3/uL (2.0-8.3); Neutrophils Percent Auto 60.7 % (45-73); Platelet Count 274 X10*3/uL (160-400); Red Blood Count 5.16 X10*6/uL (4.20-5.50); Red Cell Distribution Width 14.8 % (11.0-16.0); SCAN SMEAR FLAG 1; White Blood Count 15.5 X10*3/uL (4.8-10.8)
[2022-01-01 16:49] LABS: Appearance Urine HAZY; Color Urine YELLOW; Glucose Urine UA NEG (NEG); Leukocyte Esterase Urine NEG (NEG); Nitrite Urine NEG (NEG); Specific Gravity - Urine 1.025 (1.005-1.025); Urine Blood NEG (NEG); Urine Ketones NEG (NEG); Urine Protein NEG (NEG-TRACE)
[2022-01-01 16:52] LABS: UPreg QC Valid YES; Urine Pregnancy NEGATIVE (NEGATIVE)
[2022-01-01 16:59] LABS: Lactic Acid 1.2 mmol/L (0.5-2.0)
[2022-01-01 17:04] LABS: SLIDE REVIEW VERIFIED
[2022-01-01 17:06] LABS: Alanine Aminotransferase 28 U/L (0-31); Albumin Level 4.1 g/dL (3.5-5.0); Alkaline Phosphatase 115 U/L (39-117); Anion Gap 13 (12-20); Aspartate Amino Transferase 27 U/L (5-31); Bilirubin Direct 0.2 mg/dL (0.0-0.5); Bilirubin Total 0.8 mg/dL (0.0-1.0); Blood Urea Nitrogen 8 mg/dL (9-16); Calcium 9.7 mg/dL (8.4-10.2); Carbon Dioxide 26 mmol/L (22-29); Chloride 102 mmol/L (96-108); Creatinine Clr Calc Pharmacy 98.4; Estimated Glomerular Filt Rate > 60; Glucose Random 159 mg/dL (60-115); Lipase 44 U/L (8-78); Potassium 4.2 mmol/L (3.3-5.1); Sodium 137 mmol/L (135-145)
--- NOTE | 2022-01-01 17:06 | ED.ABDPAIN ---
HPI - Abdominal Pain General Chief Complaint: Abdominal Pain Stated Complaint: abd pain Time Seen by Provider: 01/01/22 15:30 Source: patient Mode of arrival: ambulatory History of Present Illness HPI narrative: 46-year-old female with a past medical history of HTN, HLD, morbid obesity, vitamin B12 deficiency, diverticulitis complicated by pelvic abscess and incisional hernia s/p resection and anastomosis presenting to the ED complaining of worsening left lower quadrant abdominal pain and swelling since mechanical trip and fall 1 month ago. Patient admits to intermittent lightheadedness and nausea s/p fall. Denies head trauma or LOC. denies fever, chills, vomiting, diarrhea, dysuria/hematuria MD elicited complaint: abdominal pain Pertinent past history: diverticulitis Related Data Home Medications Medication Instructions Recorded Confirmed fluticasone 250 mcg-salmeterol 50 1 puff inhalation BID 03/31/21 10/18/21 mcg/dose blistr powdr for inhalation (Advair Diskus) ibuprofen 200 mg tablet 200 mg PO Q6H PRN Pain 04/15/21 07/06/21 multivitamin 1 tab PO DAILY 04/15/21 10/18/21 blood sugar diagnostic (FreeStyle 04/26/21 10/18/21 Test) docusate sodium 100 mg capsule 100 mg PO BID PRN constipation 12/22/21 lisinopril 20 mg tablet 20 mg PO DAILY 12/22/21 12/22/21 montelukast 10 mg tablet 10 mg PO BEDTIME 12/22/21 Previous Rx's Medication Instructions Recorded pen needle, diabetic 32 gauge x #100 ea 05/27/21 (BD Ultra-Fine Macy Pen Needle) flash glucose sensor (FreeStyle #2 ea 06/03/21 Tiff 2 Sensor) acetaminophen 500 mg tablet 500 - 1,000 mg PO Q6H PRN pain #60 07/06/21 tabs cholecalciferol (vitamin D3) 25 25 mcg PO DAILY #90 tabs 07/06/21 mcg (1,000 unit) tablet (Vitamin D3) cyanocobalamin (vitamin B-12) 1,000 mcg PO DAILY #90 tabs 07/06/21 1,000 mcg tablet oxycodone 5 mg tablet 5 mg PO DAILY PRN pain #11 tabs 07/14/21 atorvastatin 80 mg tablet 80 mg PO BEDTIME #30 tabs 07/20/21 flash glucose scanning reader 1 ea miscellaneous DIRECTED #1 07/26/21 (FreeStyle Tiff 2 [place]) ea insulin glargine 100 unit/mL (3 30 unit (0.3 mL) subcut QPM 30 10/18/21 mL) subcutaneous pen (Lantus days #15 mL Solostar U-100 Insulin) insulin lispro 100 unit/mL 6 - 10 unit (0.06 - 0.1 mL) subcut 10/18/21 subcutaneous pen (Admelog SoloStar TID #15 mL U-100 Insulin lispro) amlodipine 5 mg tablet 5 mg PO DAILY #30 tabs 12/22/21 Allergies Allergy/AdvReac Type Severity Reaction Status Date / Time latex [LATEX] Allergy Mild RASH Verified 12/22/21 11:43 Review of Systems Review of Systems Constitutional: No Fever, No Chills, No Fatigue, No Malaise ENT/Mouth: No Ear Pain, No sore throat, No Rhinorrhea, No Swallowing Difficulty Eyes: No Eye Pain, No Swelling, No Redness, No Discharge Cardiovascular: No Chest Pain, No SOB, No Dyspnea on Exertion, No Orthopnea, No Edema, No Palpitations Respiratory: No Cough, No Sputum, No Dyspnea Gastrointestinal: + Nausea, No Vomiting, No Diarrhea, No Constipation, + Abdominal pain Genitourinary: No irregular bleeding, No Dysuria, No Urinary Frequency, No Hematuria, No Urinary Incontinence/retention, No Urgency, No Flank Pain Musculoskeletal: No joint pain, No Myalgias, No Joint Swelling Skin: No Skin Lesions, No rash Neuro: No Weakness, No Numbness, No Paresthesias, No Loss of Consciousness, + lightheadedness, No Headache Yes all other systems are reviewed and are negative [facility] Past Medical History Attestation statement: The following information was validated with the patient. Medical History B12 deficiency Diabetes type 2, uncontrolled Diabetic nephropathy associated with type 2 diabetes mellitus Diverticulitis of both large and small intestine with perforation and abscess Diverticulitis of large intestine with abscess Dyslipidemia Hirsutism Hypertension Morbid obesity with BMI of 50.0-59.9, adult Sepsis Vitamin D deficiency Surgical History History of ankle surgery Hx of abdominal surgery Hx of section Hx of umbilical hernia repair Family History Family History Father Throat cancer Cirrhosis Mother Diabetes Social History Social History Household Members: None Housing: House Do you presently have visiting nurse or other home services: Yes Alcohol intake: never Patient Tobacco Use Status: Current everyday Tobacco user Tobacco use type: Cigarette Cigarettes Per Day: 7 Years Smoked: 30 e-Cigarette/Vaping Use: Never Used Second Hand Smoke Exposure: Yes Substance Use Type: Marijuana Advance Directives: Yes Advance Directives on File: Yes Advance Directives Date on File: 05/05/21 service: No Current occupational status: disabled Cognitive needs: No Hearing needs: No Vision needs: No Physical Exam ED Vital Signs: Vital Signs - 24 hr 01/01/22 14:11 01/01/22 16:20 01/01/22 17:03 Temperature 98.3 F 98.4 F 98.2 F Pulse Rate 110 H 74 76 Respiratory Rate 20 18 18 Blood Pressure 153/109 H 147/96 H 135/89 Pulse Oximetry 98 96 97 Oxygen Delivery Method Room Air Room Air Room Air BMI result Body Mass Index 35.4 Const General: cooperative, healthy appearing, no acute distress, alert and awake Orientation/consciousness: patient oriented x3 Limitations: no limitations HENMT Head: Yes normal to inspection and Yes atraumatic Ears: hearing grossly normal bilaterally General nose exam: Normal external nose present Face and sinus: Yes normal facial exam Eyes General: appearance normal, both eyes and all related structures EOM: EOMs intact bilaterally Neck Neck: Yes normal visual inspection and Yes no meningeal signs Resp Effort & Inspection: normal respiratory effort and no respiratory distress Auscultation: clear to auscultation bilaterally Cardio Rate: regular rate Heart sounds: S1 normal heart sound present and S2 normal heart sound present GI Other: No abdominal wall erythema, warmth, fluctuance or induration Inspection: Yes normal to inspection Palpation (GI): Soft to palpation, Tenderness to palpation present (GI) in the LLQ, no guarding, not rigid and Hernia present other (Incisional, reducible) General: Yes no CVA tenderness Back/Spine/Pelvis Back: no CVA tenderness Skin Rashes: no rashes Wounds: no wounds Neuro General: patient oriented x3, tone normal and no meningeal signs Gait exam (Neuro): Normal gait present Extrem General: Yes normal to inspection Course Course Course Narrative: -1715--acute on chronic leukocytosis of 15.5 > empiric IV Zosyn ordered -labs otherwise unremarkable. Lactic acid negative. UA negative -1800--ED care transferred to [facility] pending CT abdomen/pelvis and dispo per results MDM - Abdominal Pain MDM Narrative Medical decision making narrative: 46-year-old female with a past medical history of HTN, HLD, morbid obesity, vitamin B12 deficiency, diverticulitis complicated by pelvic abscess and incisional hernia s/p resection and anastomosis presenting to the ED complaining of worsening left lower quadrant abdominal pain and swelling since mechanical trip and fall 1 month ago. On exam vital signs stable, NAD/nontoxic appearing, abdomen soft without acute tenderness, no rebound or guarding, no external cellulitis. Concern for diverticulitis vs recurrent abscess vs MSK pain/injury. Symptoms atypical for ACS. 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 Tachycardia likely from pain Plan: Labs, UA, CT AP, IVF, lactic/blood cultures, re-evaluate Medical Records Attestation: I reviewed the patient's medical records. Lab Data Attestation: I reviewed the patient's lab results. Result diagrams: 01/01/22 16:36 01/01/22 16:36 Labs: Lab Results 01/01/22 01/01/22 01/01/22 Range/Units 16:36 16:36 16:36 WBC 15.5 H (4.8-10.8) X10*3/uL RBC 5.16 (4.20-5.50) X10*6/uL Hgb 13.5 (12.0-16.0) g/dl Hct 40.0 (37.0-47.0) % MCV 77.5 L (80.0-98.0) fL MCH 26.2 L (27.0-33.0) pg MCHC 33.8 (31.0-35.0) g/dl RDW 14.8 (11.0-16.0) % Plt Count 274 (160-400) X10*3/uL MPV 11.3 (9.4-12.3) fL Immature Gran % (Auto) 0.3 (0.0-0.4) % Neut % (Auto) 60.7 (45-73) % Lymph % (Auto) 33.7 (20-40) % [place] % (Auto) 3.2 (2-11) % Eos % (Auto) 1.5 (0-4) % Baso % (Auto) 0.6 (0-2) % Lymph # (Auto) 5.2 H (1.2-4.9) X10*3/uL [place] # (Auto) 0.5 (0.1-1.2) X10*3/uL Eos # (Auto) 0.2 (0.0-0.4) X10*3/uL Baso # (Auto) 0.1 (0.0-0.2) X10*3/uL Abs Immat Gran (auto) 0.05 H (0.00-0.03) X10*3/uL Absolute Neuts (auto) 9.4 H (2.0-8.3) x10*3/uL Absolute Nucleated RBC 0.000 (0.0-0.012) X10*3/uL Nucleated RBC % (auto) 0.0 (0.0-0.2) /100WBC Smear Tech's Comments VERIFIED Sodium 137 (135-145) mmol/L Potassium 4.2 (3.3-5.1) mmol/L Chloride 102 (96-108) mmol/L Carbon Dioxide 26 (22-29) mmol/L Anion Gap 13 (12-20) BUN 8 L (9-16) mg/dL Creatinine 0.83 (0.5-1.4) mg/dL Estim Creat Clear Calc 98.4 Estimated GFR > 60 Random Glucose 159 H (60-115) mg/dL Lactic Acid 1.2 (0.5-2.0) mmol/L Calcium 9.7 (8.4-10.2) mg/dL Magnesium 2.0 (1.6-2.6) mg/dL Total Bilirubin 0.8 (0.0-1.0) mg/dL Direct Bilirubin 0.2 (0.0-0.5) mg/dL AST 27 (5-31) U/L ALT 28 (0-31) U/L Alkaline Phosphatase 115 (39-117) U/L Total Protein 8.0 (6.5-8.0) g/dL Albumin 4.1 (3.5-5.0) g/dL Lipase 44 (8-78) U/L Urine Color Urine Appearance Urine pH (5.0-8.0) Ur Specific [place] (1.005-1.025) Urine Protein (NEG-TRACE) MG/DL Urine Glucose (UA) (NEG) MG/DL Urine Ketones (NEG) MG/DL Urine Blood (NEG) Urine Nitrite (NEG) Ur Leukocyte Esterase (NEG) Urine Test (NEGATIVE) 01/01/22 01/01/22 Range/Units 16:36 16:36 WBC (4.8-10.8) X10*3/uL RBC (4.20-5.50) X10*6/uL Hgb (12.0-16.0) g/dl Hct (37.0-47.0) % MCV (80.0-98.0) fL MCH (27.0-33.0) pg MCHC (31.0-35.0) g/dl RDW (11.0-16.0) % Plt Count (160-400) X10*3/uL MPV (9.4-12.3) fL Immature Gran % (Auto) (0.0-0.4) % Neut % (Auto) (45-73) % Lymph % (Auto) (20-40) % [place] % (Auto) (2-11) % Eos % (Auto) (0-4) % Baso % (Auto) (0-2) % Lymph # (Auto) (1.2-4.9) X10*3/uL [place] # (Auto) (0.1-1.2) X10*3/uL Eos # (Auto) (0.0-0.4) X10*3/uL Baso # (Auto) (0.0-0.2) X10*3/uL Abs Immat Gran (auto) (0.00-0.03) X10*3/uL Absolute Neuts (auto) (2.0-8.3) x10*3/uL Absolute Nucleated RBC (0.0-0.012) X10*3/uL Nucleated RBC % (auto) (0.0-0.2) /100WBC Smear Tech's Comments Sodium (135-145) mmol/L Potassium (3.3-5.1) mmol/L Chloride (96-108) mmol/L Carbon Dioxide (22-29) mmol/L Anion Gap (12-20) BUN (9-16) mg/dL Creatinine (0.5-1.4) mg/dL Estim Creat Clear Calc Estimated GFR Random Glucose (60-115) mg/dL Lactic Acid (0.5-2.0) mmol/L Calcium (8.4-10.2) mg/dL Magnesium (1.6-2.6) mg/dL Total Bilirubin (0.0-1.0) mg/dL Direct Bilirubin (0.0-0.5) mg/dL AST (5-31) U/L ALT (0-31) U/L Alkaline Phosphatase (39-117) U/L Total Protein (6.5-8.0) g/dL Albumin (3.5-5.0) g/dL Lipase (8-78) U/L Urine Color YELLOW Urine Appearance HAZY Urine pH 6.0 (5.0-8.0) Ur Specific [place] 1.025 (1.005-1.025) Urine Protein NEG (NEG-TRACE) MG/DL Urine Glucose (UA) NEG (NEG) MG/DL Urine Ketones NEG (NEG) MG/DL Urine Blood NEG (NEG) Urine Nitrite NEG (NEG) Ur Leukocyte Esterase NEG (NEG) Urine Test NEGATIVE (NEGATIVE) Discharge Plan Discharge Clinical Impression: Abdominal pain Patient Disposition: Still a Patient Prescriptions: No Action (DME) FreeStyle Tiff 2 Sensor Kit See Rx Instructions .ROUTE .MEDSUPPLY Qty: 2 11RF Rx Instructions: As directed every 2 weeks oxycodone 5 mg tablet 5 mg PO DAILY PRN (Reason: pain) Qty: 11 0RF Rx Instructions: Last Rx should last until 07/16/21. Start this Rx on 07/17/21 once daily PRN until surgery on 07/28/21. atorvastatin 80 mg tablet 80 mg PO BEDTIME Qty: 30 11RF FreeStyle Tiff 2 [place] Misc 1 ea miscellaneous DIRECTED Qty: 1 0RF fluticasone propion-salmeterol [Advair Diskus] 250-50 mcg/dose blister with device 1 puff inhalation BID multivitamin Tablet 1 tab PO DAILY ibuprofen 200 mg Tablet 200 mg PO Q6H PRN (Reason: Pain) (DME) FreeStyle Test Strip See Rx Instructions .ROUTE DAILY Rx Instructions: 3x daily cholecalciferol (vitamin D3) [Vitamin D3] 25 mcg (1,000 unit) tablet 25 mcg PO DAILY Qty: 90 0RF Hold Instructions: Doctor's Order cyanocobalamin (vitamin B-12) 1,000 mcg tablet 1,000 mcg PO DAILY Qty: 90 0RF acetaminophen 500 mg tablet 500 - 1,000 mg PO Q6H PRN (Reason: pain) Qty: 60 0RF montelukast 10 mg tablet 10 mg PO BEDTIME docusate sodium 100 mg capsule 100 mg PO BID PRN (Reason: constipation) lisinopril 20 mg tablet 20 mg PO DAILY amlodipine 5 mg tablet 5 mg PO DAILY Qty: 30 0RF (DME) pen needle, diabetic [BD Ultra-Fine Macy Pen Needle] 32 gauge x 5/32 needle See Rx Instructions .ROUTE .MEDSUPPLY Qty: 100 3RF Rx Instructions: As directed once daily Lantus Solostar U-100 Insulin 100 unit/mL (3 mL) insulin pen 30 unit subcut QPM 30 Days Qty: 15 6RF insulin lispro [Admelog SoloStar U-100 Insulin] 100 unit/mL insulin pen 6 - 10 unit subcut TID Qty: 15 6RF
[2022-01-01] MEDS: Piperacillin Sodium/Tazobactam 4.5 GM in 0.9 % Sodium Chloride 100 ML IV (17:27)
[2022-01-01] MEDS: methylPREDNISolone Sod Succ 125 MG/2 ML VIAL IVPUSH (18:56)
[2022-01-01] MEDS: ondansetron HCL 4 MG/2 ML VIAL IVPUSH (18:57)
[2022-01-01] MEDS: Famotidine/PF 20 MG/2 ML VIAL IVPUSH (18:57)
[2022-01-01] MEDS: diphenhydrAMINE HCL 50 MG/ML VIAL IVPUSH (18:57)
[2022-01-01] MEDS: iohexoL 300 MG/ML 100 ML INFUS..BTL IV (18:58)
--- NOTE | 2022-01-01 18:58 | PC.NURSE ---
RN CALLED TO RADIOLOGY FOR ACUTE REACTION TO THE IV CONTRAST DYE. SHE BECAME DIAPHORETIC , HAD NAUSEA, CP AND WIDE SPREAD RASH. SHE WAS RETURNED TO HER PLACED ON THE MONITOR AND MEDICATED CHARTED. POC 132
[2022-01-01] MEDS: EPINEPHrine 1 MG/ML VIAL 0.3 MG IM (19:03)
[2022-01-01 19:25] LABS: Glucose, Whole Blood 132 mg/dL (60-115)
[2022-01-01 19:25] LABS: Glucose, Whole Blood 157 mg/dL (60-115)
== END 2022-01-01 23:26 | disposition home or self-care (01) ==
PROVIDERS: Physician Assistant; Emergency Provider Internal Medicine; PCP Internal Medicine
DX: R10.32 Left lower quadrant pain (principal); T88.6XXA Anaphylactic reaction due to adverse effect of correct drug or medicament properly administered, initial encounter; T50.8X5A Adverse effect of diagnostic agents, initial encounter; Y84.8 Other medical procedures as the cause of abnormal reaction of the patient, or of later complication, without mention of misadventure at the time of the procedure; Y92.239 Unspecified place in hospital as the place of occurrence of the external cause; I10 Essential (primary) hypertension; E11.9 Type 2 diabetes mellitus without complications; Z98.0 Intestinal bypass and anastomosis status
CPT/HCPCS: 36415; 74177; 80048; 80076; 81003; 81025; 82947; 83605; 83690; 83735; 85025; 87040; 96361; 96365; 96372; 96375; 96376; 99284; J0171; J1200; J2405; J2543; J2930; Q9967

== ENCOUNTER 2022-01-17 17:24 | Outpatient (REF) | payer OTHER, SELFPAY ==
--- NOTE | ~2022-01-17 | US_ITS ---
EXAMINATION: US PELVIS CLINICAL INFORMATION: Pelvic pain. Unspecified injury. COMPARISON: CT scan of the abdomen and pelvis dated 01/01/2022. TECHNIQUE: Ultrasound of the pelvis is performed using both transabdominal and transvaginal transducers along with Doppler. Transvaginal imaging is performed due to inadequate visualization transabdominally. FINDINGS: Uterus: Anteverted/anteflexed measuring 11.0 x 5.0 x 5.6 cm and a volume of 161 cc. A scar is seen in the anteroinferior wall. The endometrial stripe measures up to 0.7 cm at the level the fundus without focal abnormality. The cervix is closed with an approximately 3 cm no significant abnormality. Trace free fluid in the cul-de-sac. Right ovary: 3.1 x 1.8 x 2.4 cm with a volume of 7 cc. Small anechoic follicles measuring up to 0.7 cm. Doppler showed no abnormal vascular flow. Left ovary: 4.6 x 2.6 x 3.6 cm with a volume of 23 cc. Anechoic cyst measuring up to 2.7 cm. Doppler showed no abnormal vascular flow. Urinary bladder: Mildly distended without focal abnormality. US/US pelvic and transvaginal IMPRESSION: No significant abnormality.
== END 2022-01-17 17:25 | disposition home or self-care (01) ==
LOC: HO.US 17:24
PROVIDERS: Visit Provider Nurse Practitioner Family
DX: S39.91XD Unspecified injury of abdomen, subsequent encounter (principal); K43.2 Incisional hernia without obstruction or gangrene; I10 Essential (primary) hypertension; F41.0 Panic disorder [episodic paroxysmal anxiety]; E66.09 Other obesity due to excess calories; Z68.34 Body mass index [BMI] 34.0-34.9, adult; E11.65 Type 2 diabetes mellitus with hyperglycemia; F17.210 Nicotine dependence, cigarettes, uncomplicated; Z71.6 Tobacco abuse counseling; Z79.4 Long term (current) use of insulin
CPT/HCPCS: 76830; 76856; 99202

== ENCOUNTER 2022-01-18 15:33 | Outpatient (REF) | payer OTHER, SELFPAY ==
[2022-01-21 19:06] LABS: HPV mRNA E6/E7 rflx Not Detected (Not Detected)
== END 2022-01-18 15:34 | disposition home or self-care (01) ==
LOC: HO.LAB 15:33
PROVIDERS: Visit Provider Obstetrics & Gynecology
DX: Z01.419 Encounter for gynecological examination (general) (routine) without abnormal findings (principal)
CPT/HCPCS: 87624; 88142

== ENCOUNTER 2022-03-25 11:15 | Outpatient (REF) | payer OTHER, SELFPAY ==
--- NOTE | ~2022-03-25 | MM_ITS ---
EXAMINATION: MM SCREENING DIGITAL BREAST TOMOSYNTHESIS, BILATERAL CLINICAL INFORMATION: Screening. Asymptomatic. No prior breast imaging. Age 46. No known family history breast cancer. The lifetime risk of breast cancer based on the Tyrer-Cuzick Model is 10%. COMPARISON: None (current study represents initial baseline exam). TECHNIQUE: Digital breast tomosynthesis is performed in both the craniocaudal and mediolateral oblique views along with computer-aided detection (CAD). Synthesized 2D images are generated from the tomosynthesis. FINDINGS: There are scattered areas of fibroglandular density (ACR BI-RADS breast composition Category b). There are no significant masses, abnormal calcifications, or other abnormalities. Breast tissue composition borders on heterogeneously dense. The axilla are unremarkable. MM/MM tomosynthesis screening BI IMPRESSION: No mammographic evidence of malignancy. ASSESSMENT: BI-RADS 1: Negative RECOMMENDATION: Routine annual mammography screening. This patient's information was entered into a reminder system with a target due date for their next mammogram.
== END 2022-03-25 11:16 | disposition home or self-care (01) ==
LOC: HO.MAMMO 11:15
PROVIDERS: Visit Provider Obstetrics & Gynecology
DX: Z12.31 Encounter for screening mammogram for malignant neoplasm of breast (principal)
CPT/HCPCS: 77063; 77067

== ENCOUNTER → 2022-04-07 14:23 | Outpatient (BNVA) | payer OTHER, SELFPAY | PROVIDERS: PCP Physician Assistant; Visit Provider Internal Medicine Endocrinology, Diabetes & Metabolism | DX: E11.21 Type 2 diabetes mellitus with diabetic nephropathy (principal); Z79.4 Long term (current) use of insulin | CPT/HCPCS: 82947; 83036; 99212 ==

== ENCOUNTER → 2022-04-19 09:34 | Outpatient (BNVA) | payer OTHER, SELFPAY | PROVIDERS: PCP Physician Assistant; Visit Provider Dietitian, Registered | DX: E11.21 Type 2 diabetes mellitus with diabetic nephropathy (principal) | CPT/HCPCS: 97802 ==

== ENCOUNTER 2022-05-09 13:07 | Outpatient (REF) | payer OTHER, SELFPAY ==
[2022-05-10 12:15] LABS: BV Int Neg Control Negative (Negative); BV Int Pos Control Positive (Positive)
== END 2022-05-09 13:08 | disposition home or self-care (01) ==
LOC: HO.LAB 13:07
PROVIDERS: Visit Provider Physician Assistant
DX: N76.0 Acute vaginitis (principal)
CPT/HCPCS: 87480; 87510; 87660

== ENCOUNTER → 2022-06-15 12:54 | Outpatient (BNVA) | payer OTHER, SELFPAY | PROVIDERS: PCP Physician Assistant; Visit Provider Internal Medicine | DX: K57.20 Diverticulitis of large intestine with perforation and abscess without bleeding (principal); G89.29 Other chronic pain; R10.9 Unspecified abdominal pain | CPT/HCPCS: 99212 ==

== ENCOUNTER → 2022-07-07 09:46 | Outpatient (BNVA) | payer OTHER, SELFPAY | PROVIDERS: PCP Physician Assistant; Visit Provider Internal Medicine Endocrinology, Diabetes & Metabolism | DX: E11.9 Type 2 diabetes mellitus without complications (principal); Z79.4 Long term (current) use of insulin | CPT/HCPCS: 82947; 83036; 99212 ==

== ENCOUNTER → 2022-07-15 13:19 | Outpatient (BNVA) | payer OTHER, SELFPAY | PROVIDERS: PCP Physician Assistant; Visit Provider Registered Nurse Diabetes Educator | DX: E11.65 Type 2 diabetes mellitus with hyperglycemia (principal); E11.21 Type 2 diabetes mellitus with diabetic nephropathy; E66.01 Morbid (severe) obesity due to excess calories; L68.0 Hirsutism; F17.210 Nicotine dependence, cigarettes, uncomplicated; Z68.43 Body mass index [BMI] 50.0-59.9, adult | CPT/HCPCS: 99211 ==

== ENCOUNTER → 2022-08-03 09:29 | Outpatient (BNVA) | payer OTHER, SELFPAY | PROVIDERS: PCP Physician Assistant; Visit Provider Dietitian, Registered | DX: E11.21 Type 2 diabetes mellitus with diabetic nephropathy (principal) | CPT/HCPCS: 97803 ==

== ENCOUNTER → 2022-10-06 09:22 | Outpatient (BNVA) | payer OTHER, SELFPAY | PROVIDERS: PCP Physician Assistant; Visit Provider Internal Medicine Endocrinology, Diabetes & Metabolism | DX: E11.21 Type 2 diabetes mellitus with diabetic nephropathy (principal); Z79.4 Long term (current) use of insulin | CPT/HCPCS: 82947; 83036; 99212 ==

== ENCOUNTER 2022-10-21 08:10 | Outpatient (REF) | payer OTHER, SELFPAY ==
[2022-10-21 09:12] LABS: Hematocrit 40.2 % (37.0-47.0); Hemoglobin 13.4 g/dl (12.0-16.0); Mean Corpuscular HGB Conc 33.3 g/dl (31.0-35.0); Mean Corpuscular Hemoglobin 26.9 pg (27.0-33.0); Mean Corpuscular Volume 80.7 fL (80.0-98.0); Mean Platelet Volume 11.9 fL (9.4-12.3); Platelet Count 306 X10*3/uL (160-400); Red Blood Count 4.98 X10*6/uL (4.20-5.50); Red Cell Distribution Width 14.5 % (11.0-16.0); White Blood Count 11.8 X10*3/uL (4.8-10.8)
[2022-10-21 09:50] LABS: Creatinine Urine 266.74 mg/dL; Microalbum/Creatinine Ratio Ur 12.7 ug/mg cr
[2022-10-21 09:58] LABS: Alanine Aminotransferase 19 U/L (0-31); Albumin Level 3.7 g/dL (3.5-5.0); Alkaline Phosphatase 94 U/L (39-117); Anion Gap 14 (12-20); Aspartate Amino Transferase 22 U/L (5-31); Bilirubin Total 0.7 mg/dL (0.0-1.0); Blood Urea Nitrogen 7 mg/dL (9-16); Calcium 9.3 mg/dL (8.4-10.2); Carbon Dioxide 23 mmol/L (22-29); Chloride 105 mmol/L (96-108); Cholesterol 253 mg/dL; Estimated Glomerular Filt Rate > 60; Glucose Fasting 185 mg/dL (60-99); HDL Cholesterol 28 mg/dL; LDL Cholesterol Calculated 154 mg/dl; Potassium 4.3 mmol/L (3.3-5.1); Sodium 138 mmol/L (135-145); Total Protein 7.1 g/dL (6.5-8.0); Triglycerides 358 mg/dL
[2022-10-21 10:13] LABS: TSH reflex Free T4 1.04 uIU/mL (0.32-4.0)
== END 2022-10-21 08:11 | disposition home or self-care (01) ==
LOC: HO.LAB 08:10
PROVIDERS: Physician Assistant; Visit Provider Internal Medicine Endocrinology, Diabetes & Metabolism
DX: E11.9 Type 2 diabetes mellitus without complications (principal); Z79.4 Long term (current) use of insulin
CPT/HCPCS: 36415; 80053; 80061; 82043; 84443; 85027

== ENCOUNTER → 2022-10-27 10:00 | Outpatient (BNVA) | payer OTHER, SELFPAY | PROVIDERS: PCP Physician Assistant; Visit Provider Internal Medicine Endocrinology, Diabetes & Metabolism | DX: E11.9 Type 2 diabetes mellitus without complications (principal); Z79.4 Long term (current) use of insulin | CPT/HCPCS: 82947; 99212 ==

== ENCOUNTER → 2022-11-04 12:31 | Outpatient (BNVA) | payer OTHER, SELFPAY | PROVIDERS: PCP Physician Assistant; Visit Provider Dietitian, Registered | DX: E11.65 Type 2 diabetes mellitus with hyperglycemia (principal); E11.21 Type 2 diabetes mellitus with diabetic nephropathy; L68.0 Hirsutism; E66.01 Morbid (severe) obesity due to excess calories; E53.8 Deficiency of other specified B group vitamins; E55.9 Vitamin D deficiency, unspecified; Z71.3 Dietary counseling and surveillance | CPT/HCPCS: 97803 ==

== ENCOUNTER → 2022-11-24 14:18 | Outpatient (BNVA) | payer OTHER, SELFPAY | PROVIDERS: PCP Physician Assistant; Referring Provider Physician Assistant; Visit Provider Internal Medicine | DX: R07.9 Chest pain, unspecified (principal); E11.9 Type 2 diabetes mellitus without complications; I10 Essential (primary) hypertension; Z79.4 Long term (current) use of insulin | CPT/HCPCS: 93005; 99202 ==

== ENCOUNTER 2022-12-12 14:36 | Outpatient (REF) | payer OTHER, SELFPAY ==
[2022-12-12 16:20] LABS: Anion Gap 12 (12-20); Blood Urea Nitrogen 9 mg/dL (9-16); Calcium 9.6 mg/dL (8.4-10.2); Carbon Dioxide 25 mmol/L (22-29); Chloride 107 mmol/L (96-108); Estimated Glomerular Filt Rate > 60; Glucose Random 109 mg/dL (60-115); Potassium 4.1 mmol/L (3.3-5.1); Sodium 140 mmol/L (135-145)
== END 2022-12-12 14:37 | disposition home or self-care (01) ==
LOC: HO.LAB 14:36
PROVIDERS: PCP Physician Assistant; Visit Provider Internal Medicine
DX: R07.9 Chest pain, unspecified (principal)
CPT/HCPCS: 36415; 80048

== ENCOUNTER 2022-12-26 12:30 | Outpatient (REF) | payer OTHER, SELFPAY ==
[2022-12-26 14:17] LABS: HCG Quantitative < 2 mIU/mL
[2022-12-26 14:29] LABS: Vitamin D 25-OH Total 27.6 ng/mL (>30)
[2022-12-26 14:37] LABS: Estimated Average Glucose 163 mg/dL; Hemoglobin A1c % 7.3 %
== END 2022-12-26 12:31 | disposition home or self-care (01) ==
LOC: HO.10HDL 12:30
PROVIDERS: Nurse Practitioner Family; Visit Provider Physician Assistant
DX: E11.9 Type 2 diabetes mellitus without complications (principal); N92.6 Irregular menstruation, unspecified; Z79.4 Long term (current) use of insulin
CPT/HCPCS: 36415; 82306; 83036; 84702

== ENCOUNTER → 2023-01-02 15:49 | Outpatient (BNVA) | payer OTHER, SELFPAY | PROVIDERS: PCP Physician Assistant; Visit Provider Nurse Practitioner Family | DX: R00.2 Palpitations (principal); R07.9 Chest pain, unspecified; I10 Essential (primary) hypertension; E78.5 Hyperlipidemia, unspecified; E11.65 Type 2 diabetes mellitus with hyperglycemia | CPT/HCPCS: 99212 ==

== ENCOUNTER → 2023-01-25 12:34 | Outpatient (REF) | payer OTHER, SELFPAY ==
--- NOTE | 2023-01-25 12:37 | HM_ITS ---
* Total monitoring time 3 days. * Underlying rhythm is sinus. Average ventricular rate 92/Min. Range 73 to 139/Min. * Rare supraventricular ectopy with minimal burden. Very brief run of 12 beats. * No significant pauses or AV blocks. * No patient markers or diary events. MTDD
== END ==
LOC: HO.CARD 12:34
PROVIDERS: Visit Provider Nurse Practitioner Family
DX: R00.2 Palpitations (principal)
CPT/HCPCS: 93242

== ENCOUNTER → 2023-01-25 12:37 | Outpatient (BNV) | payer OTHER, SELFPAY | PROVIDERS: Visit Provider Internal Medicine | DX: I47.1 Supraventricular tachycardia (principal) | CPT/HCPCS: 93244 ==

== ENCOUNTER 2023-01-31 11:04 | Outpatient (AMB) | payer OTHER, SELFPAY ==
[2023-01-31 11:17] VITALS: BMI 35.1
--- NOTE | 2023-01-31 11:17 | A.OFFVIS_ITS ---
Intake VS Expanded 01/31/23 11:17 Height 5 ft 5 in Weight 210 lb 15.718 oz BMI 35.1 Intake Visit Reasons: dm Allergies latex [LATEX] Allergy (Mild, Verified 01/02/23 16:05) RASH Iodinated Contrast Media [IV Contrast Dye] Allergy (Verified 01/02/23 16:05) Anaphylaxis amoxicillin Adverse Reaction (Unknown, Verified 01/02/23 16:05) vaginal infection dulaglutide [From Trulicity] Adverse Reaction (Unknown, Verified 01/02/23 16:05) vomitting, nausea semaglutide [From Ozempic] Adverse Reaction (Unknown, Verified 01/02/23 16:05) Chest pain, vomitting HPI Nutrition Presentation Details Pt presents for MNT f/u for T2DM Pt reports lately increasing on calories from sugars (candies/sodas) related to symptoms of hypoglycemia. Pt reports having had bg in 40s and 50s. Pt has appt with workday consultant tomorrow for assessment. 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 with cheese snack on grapes or pineapple, walnut, pecans, pistachio chips with cheese soda, juice physical activity: limited to incisional hernia ETOH/Smoking: denies EYZ-Eizoort-Nf.Jeor Equation Height 5 ft 5 in Weight 211 lb Resting Metabolic Rate 1600.68 Calculated Activity Level Sedentary Calories Needed to Maintain Weight 1920.82 Most Recent Diabetes Results: Creatinine 0.75 mg/dL (0.5-1.4) 12/12/22 Blood Urea Nitrogen 9 mg/dL (9-16) 12/12/22 Sodium 140 mmol/L (135-145) 12/12/22 Potassium 4.1 mmol/L (3.3-5.1) 12/12/22 Chloride 107 mmol/L (96-108) 12/12/22 Carbon Dioxide 25 mmol/L (22-29) 12/12/22 Calcium 9.6 mg/dL (8.4-10.2) 12/12/22 [facility] Medical History (Updated 01/02/23 @ 17:11 by Arelis Hamilton NP-C) B12 deficiency Diabetes type 2, uncontrolled Diabetic nephropathy associated with type 2 diabetes mellitus Diverticulitis of both large and small intestine with perforation and abscess Diverticulitis of large intestine with abscess Dyslipidemia Hirsutism Hypertension Itching Morbid obesity with BMI of 50.0-59.9, adult Obesity (BMI 30-39.9) Sepsis Vitamin D deficiency Surgical History History of ankle surgery Hx of abdominal surgery Hx of section Hx of umbilical hernia repair Family History Father Throat cancer Cirrhosis Mother Diabetes Social History Household Members: None Housing: House Do you presently have visiting nurse or other home services: Yes Alcohol intake: never Patient Tobacco Use Status: Current everyday Tobacco user Tobacco use type: Cigarette Cigarettes Per Day: 5 Years Smoked: 30 e-Cigarette/Vaping Use: Never Used Second Hand Smoke Exposure: Yes Substance Use Type: Marijuana Advance Directives Date on File: 05/05/21 service: No Current occupational status: disabled Cognitive needs: No Hearing needs: No Vision needs: Yes Assessment & Plan Assessment & Plan (1) Diabetic nephropathy associated with type 2 diabetes mellitus: Code(s): E11.21 - Type 2 diabetes mellitus with diabetic nephropathy Plan: Educate Pt on 1600- 1800- nicole meal plan ? Used wt at initial visit in 03/2022: 98 kg , (02/12) 96 kg Est kcal as per MSJ: 1948-250= 1698 (40% carb, 30% fat/prot) Est fluid needs: 2450 ml/d (25 ml/kg bw) Rec fiber: increase to 8-10 g per day and gradually increase as tolerated Rec Na: < 2000 mg /d Educate patient on: (R= Reviewed, V = verbalizes understanding N/R= Needs review N/A= not applicable) * Food sources of carbohydrates and serving adequate serving sizes : R * Difference between complex carbohydrates and simple carbohydrates, role of fiber: R * Differences between fats (MUFA/PUFA/saturated fats, trans fats) and food sourc es of various fats: R * Food sources of sodium and salt and healthy modifications for heart health and kidney health: R * Vitamins and minerals: R * How to interpret food labels: R * Healthy Plate method concept: R * Physical activity: benefits and precaution: R * Meal replacements: R * lean protein sources of foods: R Patient Instructions: Treat low blood glucose by following rule of 15, caution with over treating low blood sugar reactions to prevent high blood sugar Follow healthy plate method at dinner time Include probiotics/prebiotic sources of foods in your diet Resume reducing on soda intake Bring glucometer to your appt with Dr Law tomorrow for further review Coding Level of Care Code Nutr Indiv Subseq (93220) Diagnoses Diabetic nephropathy associated with type 2 diabetes mellitus E11.21 Time Spent (min) 30
[2023-01-31 12:15] VITALS: BMI 35.1
== END 2023-01-31 15:07 | disposition home or self-care (01) ==
PROVIDERS: PCP Physician Assistant; Visit Provider Dietitian, Registered
DX: E11.21 Type 2 diabetes mellitus with diabetic nephropathy (principal)

== ENCOUNTER → 2023-01-31 11:04 | Outpatient (BNVA) | payer OTHER, SELFPAY | PROVIDERS: Visit Provider Dietitian, Registered | DX: E11.21 Type 2 diabetes mellitus with diabetic nephropathy (principal) | CPT/HCPCS: 97803 ==

== ENCOUNTER 2023-02-01 10:04 | Outpatient (AMB) | payer OTHER, SELFPAY ==
--- NOTE | 2023-02-01 10:05 | A.OFFVIS_ITS ---
Intake Vital Signs 02/01/23 10:06 Height 5 ft 5 in Weight 211 lb 3.245 oz BMI 35.1 BP 124/86 Blood Pressure Location Rt brachial Position Sitting Pulse 96 Pulse Source Pulse Oximeter Pulse Oximetry (%) 98 Oxygen Delivery Method Room Air Intake Visit Reasons: DM Intake Note: Patient present today to follow up on Type 2 Diabetes Mellitus. 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(Needs to see one) Random Glucose: 147mg/dl HgA1C: 7.3% 12/26/2022 Allergies latex [LATEX] Allergy (Mild, Verified 02/01/23 10:06) RASH Iodinated Contrast Media [IV Contrast Dye] Allergy (Verified 02/01/23 10:06) Anaphylaxis amoxicillin Adverse Reaction (Unknown, Verified 02/01/23 10:06) vaginal infection dulaglutide [From Trulicity] Adverse Reaction (Unknown, Verified 02/01/23 10:06) vomitting, nausea semaglutide [From Ozempic] Adverse Reaction (Unknown, Verified 02/01/23 10:06) Chest pain, vomitting Medication List - Last Reconciled 02/01/23 by Kahlil Law MD acetaminophen 500 - 1,000 mg (1 - 2 x 500 mg) PO Q6H PRN albuterol sulfate 2.5 mg (3 mL) inhalation Q6H PRN 30 days albuterol sulfate 90 mcg/actuation 1 inh inhalation QID PRN 30 days amlodipine 5 mg PO DAILY aspirin 81 mg PO DAILY blood sugar diagnostic (FreeStyle Test strips) testing 3x daily cholecalciferol (vitamin D3) (Vitamin D3) 25 mcg PO DAILY epinephrine (EpiPen 2-Josué) 0.3 mg (0.3 mL) IM ONCE PRN fenofibrate nanocrystallized 145 mg PO DAILY 30 days flash glucose scanning reader (FreeStyle Tiff 2 [place]) 1 ea miscellaneous DIRECTED flash glucose sensor (FreeStyle Tiff 2 Sensor kit) As directed every 2 weeks fluticasone propion-salmeterol 250-50 mcg/dose (Advair Diskus) 1 puff inhalation BID insulin glargine (Lantus Solostar U-100 Insulin) 80 units (0.8 mL) subcut DAILY insulin lispro 20 - 30 units subcut TID miscellaneous medical supply 1 ea miscellaneous DAILY 99 days nitroglycerin 0.4 mg sublingual Q5M PRN 15 days oxycodone 5 mg PO Q8H PRN 5 days pen needle, diabetic (BD Ultra-Fine Macy Pen Needle) USE DIRECTED 4 TIMES DAILY tirzepatide (Mounjaro) 7.5 mg (0.5 mL) subcut QWEEK HPI HPI Comments History of Present Illness Details Patient is a 47-year-old female with DM type 2 diagnosed who presents for management of diabetes. Past medical history: DM2, HTN, Hirsutism, dyslipidemia., vitamin d deficiency. Micro and macrovascular complications: Nephropathy Diabetes medications: Dizziness with Trulicity. declined to use Januvia ?Lantus 80 units.? She has been using 15 -25 units of Humalog. Not ? ?Currently onMounjaro 7.5 mg Qwkly . In the past she was intolerant of Trulicity due to dizzziness as well as SGLT-2 and she had declined the use of Januvia in 2020 Some episodes of ?hypoglycemia with Blood glucose monitoring: Tiff download shows she is using this CGMS 66% of the time. Average glucose is 135 with GMI of 6.5 %. 93% in target with 6% hyperglycemia1 % hypoglycemia Symptoms reported: numbness, tingling, cramping in lower extremities Hypoglycemia: denies Hyperglycemia: denies urinary frequency, Optho: couple of mos ago Laboratory Tests 04/30/20 05/05/20 12/08/20 08:29 08:33 14:53 Creatinine Estimated GFR Hgb A1c (Clinic) Hemoglobin A1c % Triglycerides 218 Cholesterol 173 LDL Cholesterol Di rect 121 H LDL Cholesterol, C alc 101 HDL Cholesterol 29 Vitamin B12 TSH 0.86 12/08/20 04/01/21 04/27/21 14:53 07:44 05:25 Creatinine 0.71 Estimated GFR > 60 Hgb A1c (Clinic) Hemoglobin A1c % 7.9 Triglycerides Cholesterol LDL Cholesterol Di rect LDL Cholesterol, C alc HDL Cholesterol Vitamin B12 211 TSH 05/27/21 11:34 Creatinine Estimated GFR Hgb A1c (Clinic) 9.7 H Hemoglobin A1c % Triglycerides Cholesterol LDL Cholesterol Di rect LDL Cholesterol, C alc HDL Cholesterol Vitamin B12 TSH PFSH Medical History B12 deficiency Diabetes type 2, uncontrolled Diabetic nephropathy associated with type 2 diabetes mellitus Diverticulitis of both large and small intestine with perforation and abscess Diverticulitis of large intestine with abscess Dyslipidemia Hirsutism Hypertension Itching Morbid obesity with BMI of 50.0-59.9, adult Obesity (BMI 30-39.9) Sepsis Vitamin D deficiency Surgical History History of ankle surgery Hx of abdominal surgery Hx of section Hx of umbilical hernia repair Family History Father Throat cancer Cirrhosis Mother Diabetes Social History Household Members: None Housing: House Do you presently have visiting nurse or other home services: Yes Alcohol intake: never Patient Tobacco Use Status: Current everyday Tobacco user Tobacco use type: Cigarette Cigarettes Per Day: 5 Years Smoked: 30 e-Cigarette/Vaping Use: Never Used Second Hand Smoke Exposure: Yes Substance Use Type: Marijuana Advance Directives Date on File: 05/05/21 service: No Current occupational status: disabled Cognitive needs: No Hearing needs: No Vision needs: Yes Physical Exam Vital Signs: Last Vital Signs Pulse 96 02/01/23 10:06 BP 124/86 02/01/23 10:06 Pulse Ox 98 02/01/23 10:06 Oxygen Delivery Method Room Air 02/01/23 10:06 BMI result Body Mass Index 35.1 Absence of Cushingoid features. Absence of acromegalic features. Neck exam reveals nl size thyroid about 15 gms. No thyroid nodules palpable. No carotid bruits present. Lungs CTA. Heart S1 S2, Reg R/R. No M/R/ G. Skin exam reveals absence of vitiligo but presence of acanthosis nigricans. Abdominal exam reveals Soft NT/ND with NA BS. No organomegaly present. Neck Other: . Extrem Other: Visual exam of foot performed. Small shallow ulcer on left toe. No onchomycosis, no callouses.Pulses 2 + distally Sensation intact to monofilament exam. Vibratory sensation sensed is decreased with 128 Hz tuning fork Results Reviewed Results Reviewed: 02/01/23 10:12 Glucose, Whole Blood Routine Laboratory Last Values Glucose (Clinic) 147 mg/dL (60-115) H 07/12/23 10:12 Assessment & Plan Assessment & Plan (1) Insulin dependent type 2 diabetes mellitus: Code(s): E11.9 - Type 2 diabetes mellitus without complications; Z79.4 - intermediate accountant (current) use of insulin Plan: This is a 47-year-old female with a history of type 2 diabetes being treated with Mounjaro with excellent improved glycemic control and known microvascular complications namely diabetic nephropathy. I do not think patient's symptoms related to hypoglycemia but she continues to experience symptoms of the 7.5 mg will reduce to 5 mg Plan is to continue the current regimen for now. 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 We also talked about increasing exercise and using meals substitution. Her glycemic control has improved to the point where she can have the hernia operation but needs little bit more weight loss Coding Level of Care Code Est Pt Level 4 (37181) Diagnoses Insulin dependent type 2 diabetes mellitus E11.9; Z79.4
[2023-02-01 10:06] VITALS: BP 124/86; PULSE 96; O2SAT 98; BMI 35.1
[2023-02-01 10:20] LABS: Glucose, Whole Blood 147 mg/dL (60-115)
== END 2023-02-01 11:22 | disposition home or self-care (01) ==
PROVIDERS: PCP Physician Assistant; Referring Provider Physician Assistant; Supervising Provider Physician Assistant; Visit Provider Internal Medicine Endocrinology, Diabetes & Metabolism
DX: E11.9 Type 2 diabetes mellitus without complications (principal); Z79.4 Long term (current) use of insulin
CPT/HCPCS: 99214

== ENCOUNTER → 2023-02-01 10:04 | Outpatient (BNVA) | payer OTHER, SELFPAY | PROVIDERS: Visit Provider Internal Medicine Endocrinology, Diabetes & Metabolism | DX: E11.9 Type 2 diabetes mellitus without complications (principal); Z79.4 Long term (current) use of insulin | CPT/HCPCS: 82947; 99212 ==

== ENCOUNTER 2023-02-22 09:52 | Outpatient (AMB) | payer OTHER, SELFPAY ==
--- NOTE | 2023-02-22 09:54 | A.OFFVIS_ITS ---
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 No complaints. Last Pap/HPV was negative in 01/12 Last Mammogram was BI-RADS 1 in 04/14 No previous screening colonoscopy [facility] [place] Medical History B12 deficiency Diabetes type 2, uncontrolled Diabetic nephropathy associated with type 2 diabetes mellitus Diverticulitis of both large and small intestine with perforation and abscess Diverticulitis of large intestine with abscess Dyslipidemia Hirsutism Hypertension Itching Morbid obesity with BMI of 50.0-59.9, adult Obesity (BMI 30-39.9) Sepsis Vitamin D deficiency Surgical History History of ankle surgery Hx of abdominal surgery Hx of section Hx of umbilical hernia repair Family History Father Throat cancer Cirrhosis Mother Diabetes Social History Household Members: None Housing: House Do you presently have visiting nurse or other home services: Yes Alcohol intake: never Patient Tobacco Use Status: Current everyday Tobacco user Tobacco use type: Cigarette Cigarettes Per Day: 5 Years Smoked: 30 e-Cigarette/Vaping Use: Never Used Second Hand Smoke Exposure: Yes Substance Use Type: Marijuana Advance Directives Date on File: 05/05/21 service: No Current occupational status: disabled Cognitive needs: No Hearing needs: No Vision needs: Yes Female Reproductive History Menstrual Date of last menstrual period: 02/13/23 Date of last pap smear: 01/18/22 (neg pap and hpv) Date of Mammogram: 03/25/22 Review of Systems Const All systems reviewed & are unremarkable except as noted in HPI and below Card Reports as per HPI Resp Reports as per HPI GI Reports as per HPI and Reports no additional complaints Reports as per HPI Physical Exam Vital Signs: BMI result Body Mass Index 34.8 Const General: cooperative, healthy appearing and comfortable Chest Chest palpation & inspection: normal inspection of the chest and normal palpation of entire chest wall Breast/axilla inspection: normal inspection of the breasts and normal inspection of the axillae Breast/axilla palpation: normal palpation of the breasts, normal palpation of the axillae and no axillary lymphadenopathy Resp Effort & Inspection: normal respiratory effort Auscultation: clear to auscultation bilaterally Percussion: percussion normal Cardio Palpation: normal PMI Rate: regular rate Rhythm: regular rhythm Heart sounds: no murmurs and no rubs Peripheral pulses: Peripheral pulses 2+ throughout GI Inspection: Yes normal to inspection Palpation (GI): Soft to palpation, nontender, no guarding, not rigid and No hepatosplenomegaly present Percussion: Yes normal to percussion Auscultation: normal bowel sounds Rectal Exam - Female: deferred General: Yes bladder normal to palpation External Female Exam: No lesion Speculum Exam - Vagina: normal appearance of the vagina, normal palpation, normal vaginal discharge and not erythematous Speculum Exam - Cervix: normal appearance of the cervix and normal palpation Bimanual exam- vagina & uterus: normal bimanual exam, normal palpation, uterine size normal, bladder normal to palpation, consistency normal and normal palpatio n Bimanual Exam- Adnexa, other: normal adnexae, no masses and no tenderness Assessment & Plan Assessment & Plan (1) Well woman exam: Code(s): Z01.419 - Encounter for gynecological examination (general) (routine) without abnormal findings Plan: Cotesting not indicated this year. Mammogram ordered. Counseled the patient about the recommended dietary allowance of 1000 mg of Calcium & 600 IU of vitamin D. The patient was instructed to perform monthly self-breast exams and to schedule an annual exam in a year; will refer to GI for screening colonoscopy. All questions answered and the patient verbalized understanding. Instructed the patient to schedule annual exam in a year Orders: Orders MM screening mammo BI Today Z12.31 - Encounter for screening mammogram for malignant neoplasm of breast Referrals Gastroenterology Referral Z12.11 - Encounter for screening for malignant neoplasm of colon Coding Level of Care Code Est Pt Prev Care 40-64y(38708) Diagnoses Well woman exam Z01.419
[2023-02-22 09:55] VITALS: BP 120/80; BMI 34.8
== END 2023-02-22 10:26 | disposition home or self-care (01) ==
LOC: HO.HWS 09:52
PROVIDERS: PCP Physician Assistant; Visit Provider Obstetrics & Gynecology
DX: Z01.419 Encounter for gynecological examination (general) (routine) without abnormal findings (principal)
CPT/HCPCS: 99396

== ENCOUNTER 2023-03-15 11:48 | Outpatient (AMB) | payer OTHER, SELFPAY ==
[2023-03-15 11:50] VITALS: BP 130/80; PULSE 84; O2SAT 98; BMI 34.8
--- NOTE | 2023-03-15 11:50 | A.OFFPC_ITS ---
Vital Signs 03/15/23 11:50 Height 5 ft 5 in Weight 209 lb 2 oz BMI 34.8 BP 130/80 Blood Pressure Location Lt brachial Position Sitting Pulse 84 Pulse Source Pulse Oximeter Pulse Oximetry (%) 98 Oxygen Delivery Method Room Air Intake Visit Reasons: f/u DMII Intake Note: Patient is here to follow up on DMII. Fabric Pattern Grader Required: No Accompanied by: Self / Same As Patient Allergies latex [LATEX] Allergy (Mild, Verified 03/15/23 11:51) RASH Iodinated Contrast Media [IV Contrast Dye] Allergy (Verified 03/15/23 11:51) Anaphylaxis amoxicillin Adverse Reaction (Unknown, Verified 03/15/23 11:51) vaginal infection dulaglutide [From Trulicity] Adverse Reaction (Unknown, Verified 03/15/23 11:51) vomitting, nausea semaglutide [From Ozempic] Adverse Reaction (Unknown, Verified 03/15/23 11:51) Chest pain, vomitting Tobacco use date assessed: 12/26/22 Dental Screening Dental Screen Date: 03/15/23 Did you have a dental visit in the last 12 months?: Yes Did you have a dental problem in the last 6 months where you did not have access to dental care?: No Was dental information given to patient?: Patient has dentist HPI f/u DMII HPI Details Patient is a 47-year-old female here today for a follow-up visit.? Patient has a past medical history significant for obesity, type 2 diabetes, tobacco dependency, generalized anxiety disorder, chronic incisional abdominal hernia. . Incisional hernia:? Recently has noted enlarging of her an hernia, she feels that the bottom half of her abdomen now hangs even lower. She reports more pain and an itchy sensation all over her abdomen recently. She does report having difficulty with passing stool often having to lean over the counter in order to help move bowels. She is in contact with general surgeon hernia specialist at [facility].? Her case is complicated as she does also need reconstruction of her abdomen including a plastic surgeon. Has been controlling her blood sugars with Endocrinology and has lost weight since last office visit. Has been cutting down her cigarette smoking. Is trying to get her diabetes under control so that she can have incisional hernia repair.? Continues to have moderate to severe pain at times in her abdomen as she feels the hernia stretches her abdominal muscles causing severe pain.? she does use low-dose oxycodone 5 mg on a limited p.r.n. basis.? She does understand the habit-forming nature of this medication and only uses this on a once a day as needed basis.? She anticipates surgery this year to fix her abdominal hernia. Type 2 diabetes:? followed by Endocrinology and started a new insulin ( Mounjaro) which has been allowing her to keep excellent control over blood sugars. A1c now down below 8. ? Blood sugars have been much better controlled the patient has lost weight.? She feels much better and has more energy. Concerns--> Of note she does report recently feeling episodes of numbness tingling in her arms and lower extremities . She does not attribute this to her blood sugars as she has checked her blood sugars and they have been stable. She also reports at times when standing or walking she does feel very dizzy and have presyncopal episodes [facility] Medical History B12 deficiency Diabetes type 2, uncontrolled Diabetic nephropathy associated with type 2 diabetes mellitus Diverticulitis of both large and small intestine with perforation and abscess Diverticulitis of large intestine with abscess Dyslipidemia Hirsutism Hypertension Itching Morbid obesity with BMI of 50.0-59.9, adult Obesity (BMI 30-39.9) Sepsis Vitamin D deficiency Surgical History History of ankle surgery Hx of abdominal surgery Hx of section Hx of umbilical hernia repair Family History Father Throat cancer Cirrhosis Mother Diabetes Social History Household Members: None Housing: House Do you presently have visiting nurse or other home services: Yes Alcohol intake: never Patient Tobacco Use Status: Current everyday Tobacco user Tobacco use type: Cigarette Cigarettes Per Day: 5 Years Smoked: 30 e-Cigarette/Vaping Use: Never Used Second Hand Smoke Exposure: Yes Substance Use Type: Marijuana Advance Directives Date on File: 05/05/21 service: No Current occupational status: disabled Cognitive needs: No Hearing needs: No Vision needs: Yes Questionnaire Thrive Questionnaire Date Thrive assessed: 12/26/22 RUI-7 AMB Questionnaire RUI-7 Date RUI - 7 assessed: 12/26/22 Source: Developed by Drs. Kahlil Thao, Patito Pradhan, Shine Carias and colleagues, with an educational kathleen from [employer]. Review of Systems Const Denies headache(s) Eyes Denies loss of vision ENT Denies vertigo, Denies dizziness, Denies headache(s) and Denies sore throat Card Denies chest pain, Denies leg edema and Denies lightheadedness Resp Denies cough, Denies hemoptysis and Denies wheezing GI Denies abdominal pain, Denies melena, Denies constipation, Denies diarrhea and Denies vomiting Denies urinary frequency, Denies dysuria and Denies urinary urgency Musc Denies arthralgias, Denies joint swelling, Denies numbness and Denies tingling Neuro Denies Abnormal speech present, Denies behavioral changes, Denies vertigo, Denies dizziness, Denies headache(s), Denies loss of vision, Denies memory loss, Denies numbness and Denies tingling Psych Denies anxiety, Denies behavioral changes, Denies depression, Denies memory loss and Denies panic attacks Abhijit/Lymph Denies easy bleeding and Denies easy bruising Aller/Immun Denies wheezing Physical exam (Primary Care) Vital Signs: Last Vital Signs Pulse 84 03/15/23 11:50 BP 130/80 03/15/23 11:50 Pulse Ox 98 03/15/23 11:50 Oxygen Delivery Method Room Air 03/15/23 11:50 BMI result Body Mass Index 34.8 Tobacco/Smoking Status: Tobacco use Status Tobacco use date assessed 12/26/22 03/15/23 11:50 Patient Tobacco Use Status Current everyday Tobacco 03/15/23 11:50 Tobacco use type Cigarette 03/15/23 11:50 e-Cigarette/Vaping Use Never Used 03/15/23 11:50 Thrive Assessment: Date of Thrive Assessment Date Thrive assessed 12/26/22 03/15/23 11:50 Const General: healthy appearing, no acute distress, alert and awake Nutritional Appearance: well nourished Orientation/consciousness: oriented to person, oriented to place and oriented to time HENMT Ears: TM's normal bilaterally General nose exam: Normal nasal mucous membranes and turbinates present Eyes Conjunctivae: conjunctivae normal Sclerae: sclerae normal Pupils: Equal, round and reactive pupils present Neck Neck: Yes no lymphadenopathy and Yes no JVD Thyroid: Thyroid normal Carotids: no bruits Resp Effort & Inspection: normal respiratory effort and not tachypneic Auscultation: no crackles, no rales, no rhonchi and no wheezes Cardio Rate: regular rate Rhythm: regular rhythm Heart sounds: no murmurs and normal S1 and S2 GI Other: LARGE ABDOMINAL LUMP, DOES HAVE ABDOMINAL SKIN FOLDS WITHIN BETWEEN WEEKS YOUR Palpation (GI): Soft to palpation, Tenderness to palpation present (GI), no hepatomegaly and no splenomegaly Auscultation: normal bowel sounds Skin General skin exam: no rashes or lesions noted and dry skin Neuro General: oriented to person, oriented to place and oriented to time Cranial nerves: Yes Equal, round and reactive pupils present Speech: No Abnormal speech present Gait exam (Neuro): Normal gait present Motor exam (neuro): no tremor noted Extrem Right upper extremity: full ROM Left upper extremity: full ROM Right lower extremity: full ROM; no edema Left lower extremity: full ROM; no edema Psych Mental Status: mental status grossly normal Speech and movement: Normal speech and movement present Affect: normal affect Attitude: cooperative Thought process: Normal thought process present Assessment and Plan Assessment & Plan (1) Incisional hernia: Code(s): K43.2 - Incisional hernia without obstruction or gangrene Qualifiers: Obstruction and gangrene presence: without obstruction or gangrene Qualified Code(s): K43.2 - Incisional hernia without obstruction or gangrene Plan: Unfortunate recently experienced enlargement in abdominal hernia. Does report pain all over abdomen and feeling itch. She reports she has been having difficulty with passing stools. Continues to wait for reconstruction surgery her abdomen. She was told she needs glycemic control and weight loss. Has lost 20 lb and has A1c below 8. (2) Insulin dependent type 2 diabetes mellitus: Code(s): E11.9 - Type 2 diabetes mellitus without complications; Z79.4 - buttermaker continuous churn (cu rrent) use of insulin Plan: Has captured glycemic control with mounjaro injections. Her A1c is much improved. Has lost significant amount of weight. Unfortunately BMI is still above 30. (3) Tinea unguium: Code(s): B35.1 - Tinea unguium Plan: Complaines of sweating and skin irratation onder her skin folds. Would benefit from panniculmectomy. (4) Fatigue: Code(s): R5. - Other fatigue Qualifiers: Fatigue type: unspecified Qualified Code(s): R5. - Other fatigue Orders: Orders Complete Blood Count no Diff 03/15/23 R5. - Other fatigue Cruz Navas PA-C IRON PROFILE 03/15/23 D50.9 - Iron deficiency anemia, unspecified, - Other fatigue Cruz Navas PA-C Vitamin B12 and Folate 03/15/23 E53.8 - Deficiency of other specified B group vitamins, - Other fatigue Cruz Navas PA-C Basic Metabolic Panel 03/15/23. - Other fatigue Cruz Navas PA-C Medications: Changed From fluticasone propion-salmeterol 250-50 mcg/dose (Advair Diskus) 1 puff inhalation BID J45.909 - Unspecified asthma, uncomplicated To fluticasone propion-salmeterol 250-50 mcg/dose (Advair Diskus) 1 ea inhalation BID 30 days 60 ea 3RF J45.909 - Unspecified asthma, uncomplicated Cruz Navas PA-C Refilled oxycodone Partial Fill upon patient request. 5 mg PO Q8H 5 days PRN 15 tabs 0RF pain G89.29 - Other chronic pain, R10.9 - Unspecified abdominal pain Cruz Navas PA-C Resumed cholecalciferol (vitamin D3) (Vitamin D3) 25 mcg PO DAILY 90 tabs 0RF Barb Delong, AUTOMOT[employer] COUNTER ASSOCIATE-C Coding Level of Care Code Est Pt Level 4 (46658) Diagnoses Incisional hernia K43.2 Obstruction and gangrene presence: without obstruction or gangrene Insulin dependent type 2 diabetes mellitus E11.9; Z79.4 Tinea unguium B35.1 Fatigue R5 Fatigue type: unspecified
== END 2023-03-15 13:14 | disposition home or self-care (01) ==
PROVIDERS: PCP Physician Assistant; Visit Provider Physician Assistant
DX: K43.2 Incisional hernia without obstruction or gangrene (principal); E11.9 Type 2 diabetes mellitus without complications; Z79.4 Long term (current) use of insulin; B35.1 Tinea unguium; R53.83 Other fatigue
CPT/HCPCS: 99214

== ENCOUNTER 2023-03-15 12:43 | Outpatient (REF) | payer OTHER, SELFPAY ==
[2023-03-15 13:39] LABS: Hematocrit 41.2 % (37.0-47.0); Hemoglobin 13.5 g/dl (12.0-16.0); Mean Corpuscular HGB Conc 32.8 g/dl (31.0-35.0); Mean Corpuscular Hemoglobin 25.9 pg (27.0-33.0); Mean Corpuscular Volume 78.9 fL (80.0-98.0); Mean Platelet Volume 11.7 fL (9.4-12.3); Platelet Count 284 X10*3/uL (160-400); Red Blood Count 5.22 X10*6/uL (4.20-5.50); Red Cell Distribution Width 14.6 % (11.0-16.0); White Blood Count 13.7 X10*3/uL (4.8-10.8)
[2023-03-15 14:29] LABS: Anion Gap 13 (12-20); Blood Urea Nitrogen 8 mg/dL (9-16); Calcium 9.7 mg/dL (8.4-10.2); Carbon Dioxide 24 mmol/L (22-29); Chloride 105 mmol/L (96-108); Estimated Glomerular Filt Rate > 60; Glucose Random 140 mg/dL (60-115); Iron 65 mcg/dL (30-160); Percent Iron Saturation 20 % (15-50); Potassium 3.9 mmol/L (3.3-5.1); Sodium 138 mmol/L (135-145); Total Iron Binding Capacity 324 mcg/dL (228-428); Unsaturated Iron Binding 259 ug/dL
[2023-03-15 14:51] LABS: Appearance Urine Clear; Color Urine Yellow; Glucose Urine UA Negative (Negative); Leukocyte Esterase Urine Negative (Negative); Nitrite Urine Negative (Negative); PH 5.5 (5.0-9.0); Specific Gravity - Urine 1.015 (1.005-1.025); Urine Blood Negative (Negative); Urine Ketones Negative (Negative); Urine Protein Negative (Neg-Trace)
[2023-03-15 14:57] LABS: Folate 10.2 ng/mL (> or = 4.0); Vitamin B12 195 pg/mL (200-900)
== END 2023-03-15 12:44 | disposition home or self-care (01) ==
LOC: HO.LAB 12:43
PROVIDERS: PCP Physician Assistant; Visit Provider Physician Assistant
DX: R31.9 Hematuria, unspecified (principal); R53.83 Other fatigue; E53.8 Deficiency of other specified B group vitamins; D50.9 Iron deficiency anemia, unspecified
CPT/HCPCS: 36415; 80048; 81003; 82607; 82746; 83540; 85027

== ENCOUNTER 2023-04-06 13:20 | Outpatient (AMB) | payer OTHER, SELFPAY ==
--- NOTE | 2023-04-06 13:26 | A.OFFVIS_ITS ---
Intake Vital Signs 04/06/23 13:27 Height 5 ft 5 in Weight 212 lb 8.41 oz BMI 35.4 BP 130/82 Blood Pressure Location Rt brachial Position Sitting Pulse 96 Intake Visit Reasons: 3 mth f/up Intake Note: 3 month f/u Emergency Medicine Physician Assistant Required: No Allergies latex [LATEX] Allergy (Mild, Verified 04/06/23 13:35) RASH Iodinated Contrast Media [IV Contrast Dye] Allergy (Verified 04/06/23 13:35) Anaphylaxis amoxicillin Adverse Reaction (Unknown, Verified 04/06/23 13:35) vaginal infection dulaglutide [From Trulicity] Adverse Reaction (Unknown, Verified 04/06/23 13:35) vomitting, nausea semaglutide [From Ozempic] Adverse Reaction (Unknown, Verified 04/06/23 13:35) Chest pain, vomitting Medication List - Last Reconciled 04/06/23 by Arelis Hamilton CREDIT UNION FIELD EXAMINER-C acetaminophen 500 - 1,000 mg (1 - 2 x 500 mg) PO Q6H PRN albuterol sulfate 2.5 mg (3 mL) inhalation Q6H PRN 30 days albuterol sulfate 90 mcg/actuation 1 inh inhalation QID PRN 30 days amlodipine 5 mg PO DAILY aspirin 81 mg PO DAILY blood sugar diagnostic (FreeStyle Test strips) testing 3x daily cholecalciferol (vitamin D3) (Vitamin D3) 25 mcg PO DAILY epinephrine (EpiPen 2-Josué) 0.3 mg (0.3 mL) IM ONCE PRN fenofibrate nanocrystallized 145 mg PO DAILY 30 days flash glucose scanning reader (FreeStyle Tiff 2 [place]) 1 ea miscellaneous DIRECTED flash glucose sensor (FreeStyle Tiff 2 Sensor kit) As directed every 2 weeks fluticasone propion-salmeterol 250-50 mcg/dose (Advair Diskus) 1 ea inhalation BID 30 days insulin glargine (Lantus Solostar U-100 Insulin) 80 units (0.8 mL) subcut DAILY insulin lispro 20 - 30 units subcut TID miscellaneous medical supply 1 ea miscellaneous DAILY 99 days nitroglycerin 0.4 mg sublingual Q5M PRN 15 days oxycodone 5 mg PO Q8H PRN 5 days pen needle, diabetic (BD Ultra-Fine Macy Pen Needle) USE DIRECTED 4 TIMES DAILY tirzepatide (Mounjaro) 7.5 mg (0.5 mL) subcut QWEEK HPI 3 mth f/up HPI Details Mckenzie is a 47-year-old female with past medical history of hypertension, hyperlipidemia, diabetes, smoking, obesity, chest discomfort who recently reported heart palpitations and underwent a Holter monitor. She now presents for follow-up. Today she reports that she feels her heart going fast at times lasting seconds or minutes. This causes her a discomfort in the chest and anxiety. After the episode she feels fatigued. She has no chest discomfort brought on by physical activity at this time. No shortness of breath, dizziness, presyncope, syncope, PND, orthopnea or edema. Taking meds as directed. [facility] Medical History Itching Obesity (BMI 30-39.9) Sepsis Diverticulitis of both large and small intestine with perforation and abscess Diverticulitis of large intestine with abscess Morbid obesity with BMI of 50.0-59.9, adult Hypertension Vitamin D deficiency B12 deficiency Diabetic nephropathy associated with type 2 diabetes mellitus Dyslipidemia Hirsutism Diabetes type 2, uncontrolled Surgical History Hx of abdominal surgery Hx of umbilical hernia repair History of ankle surgery Hx of section Family History Father Throat cancer Cirrhosis Mother Diabetes Social History Household Members: None Housing: House Do you presently have visiting nurse or other home services: Yes Alcohol intake: never Patient Tobacco Use Status: Current everyday Tobacco user Tobacco use type: Cigarette Cigarettes Per Day: 5 Years Smoked: 30 e-Cigarette/Vaping Use: Never Used Second Hand Smoke Exposure: Yes Substance Use Type: Marijuana Advance Directives Date on File: 05/05/21 service: No Current occupational status: disabled Cognitive needs: No Hearing needs: No Vision needs: Yes Review of Systems Const All systems reviewed & are unremarkable except as noted in HPI and below ENT Denies dizziness Card Denies chest pain, Denies chest pain at rest, Denies chest pain with activity, Reports rapid heart rate, Denies pedal edema, Denies edema, Denies leg edema, Denies lightheadedness, Reports palpitations, Denies dyspnea, Denies dyspnea on exertion and Denies orthopnea Resp Denies cough, Denies dyspnea and Denies dyspnea on exertion GI Details: Large hernia, wearing binder Reports abdominal pain, Denies hematochezia and Denies change in stool character Musc Denies abnormal gait, Denies limited range of motion, Denies muscle cramps, Denies muscle weakness, Denies numbness, Denies radiating pain into limb, Denies stiffness and Denies tingling Neuro Denies abnormal gait, Denies dizziness, Denies numbness and Denies tingling Endo Reports palpitations Physical Exam Vital Signs: Last Vital Signs Pulse 96 04/06/23 13:27 BP 130/82 04/06/23 13:27 BMI result Body Mass Index 35.4 Const General: cooperative, healthy appearing, comfortable and no acute distress Orientation/consciousness: patient oriented x3 Neck Neck: Yes normal visual inspection Resp Effort & Inspection: normal respiratory effort Auscultation: clear to auscultation bilaterally, no crackles, no rales, no rho nchi and no wheezes Cardio Jugular venous distension: no JVD Rate: regular rate Rhythm: regular rhythm Heart sounds: S1 normal heart sound present, S2 normal heart sound present, no murmurs and no rubs GI Other: Abdominal binder in place Neuro General: patient oriented x3 Extrem General: Yes normal to inspection Psych Appearance: grossly normal Mental Status: mental status grossly normal Speech and movement: Normal speech and movement present Office Procedures EKG Details: Today, read by me, normal sinus rhythm, no acute ST or T-wave abnormalities, rate 96, QTC 457 millisecond [id number], Complete Assessment & Plan Assessment & Plan (1) Heart palpitations: Code(s): R00.2 - Palpitations Plan: Reports of heart palpitations like her heart is beating fast. This causes discomfort and anxiety followed by fatigue. Holter monitor done on 01/25/2023 for 3 days showed sinus rhythm with average heart rate 92, heart rate range 73 to 139, rare SVE, 112 beat atrial tach. She seems very anxious and bothered by her fast heartbeats. She could be having longer episodes of atrial tach at times. Reviewed the benefits of caffeine cessation, stress reduction activities. Will stop her amlodipine and change to diltiazem CD 180 mg daily. She is agreeable to this plan. Cardiology follow-up in 3 months, sooner if needed (2) Chest pain: Code(s): R07.9 - Chest pain, unspecified Qualifiers: Chest pain type: unspecified Qualified Code(s): R07.9 - Chest pain, unspecified Plan: Prior reports of chest discomfort or like squeezing. She has multiple cardiac risk factors including obesity, smoking, hypertension, hyperlipidemia and diabetes. Echocardiogram done at [facility] on 09/21/2022 shows normal EF, no regional wall motion abnormality. CTA of the coronary arteries done on 12/16/2022 showed study limitations as her heart rate was not well controlled. They make note she was premedicated and did not show signs of true allergy. Due to anxiety and shortness of breath she was sent to the ER for further evaluation without acute findings. Mild calcific plaque seen in the proximal segment of the distal LAD, less than 25% stenosis. No additional definite plaque noted. Test results previously reviewed with her. At this time she describes getting some discomfort in her chest when her heart is beating fas t. Starting on diltiazem as above. Signs and symptoms of angina reviewed. Strict need for cardiac risk factor modification discussed. Good blood sugar control is essential. Continue good blood pressure and cholesterol control with LDL goal less than 70. Quit smoking, increase physical activity, low-fat diet all reviewed. Patient states understanding. Continue aspirin and amlodipine. She is not on statin for unclear reason. Recommend use of statin in this diabetic patient no contraindications. (3) Atrial tachycardia: Code(s): I47.1 - Supraventricular tachycardia Plan: Brief episode seen on Holter monitor (4) Hypertension: Code(s): I10 - Essential (primary) hypertension Qualifiers: Hypertension type: primary hypertension Qualified Code(s): I10 - Essential (primary) hypertension Plan: Well controlled at present. No med changes made (5) Dyslipidemia: Code(s): E78.5 - Hyperlipidemia, unspecified Plan: As above Medications: New diltiazem HCl replaces amlodipine 180 mg PO DAILY 30 caps 4RF Coding Level of Care Code Est Pt Level 3 (84580) Diagnoses Heart palpitations R00.2 Chest pain, unspecified type R07.9 Chest pain type: unspecified Atrial tachycardia I47.1 Primary hypertension I10 Hypertension type: primary hypertension Dyslipidemia E78.5 CPT Codes EKG - CPT: [id number], Complete ([id number]) Time Spent (min) 22
[2023-04-06 13:27] VITALS: BP 130/82; PULSE 96; BMI 35.4
== END 2023-04-06 14:01 | disposition home or self-care (01) ==
PROVIDERS: PCP Physician Assistant; Referring Provider Physician Assistant; Visit Provider Nurse Practitioner Family
DX: R00.2 Palpitations (principal); R07.9 Chest pain, unspecified; I47.1 Supraventricular tachycardia; I10 Essential (primary) hypertension; E78.5 Hyperlipidemia, unspecified
CPT/HCPCS: 93010; 99213

== ENCOUNTER → 2023-04-06 13:20 | Outpatient (BNVA) | payer OTHER, SELFPAY | PROVIDERS: PCP Physician Assistant; Referring Provider Physician Assistant; Visit Provider Nurse Practitioner Family | DX: R00.2 Palpitations (principal); R07.9 Chest pain, unspecified; I47.1 Supraventricular tachycardia; I10 Essential (primary) hypertension; E78.5 Hyperlipidemia, unspecified | CPT/HCPCS: 93005; 99212 ==

== ENCOUNTER 2023-06-12 13:57 | Outpatient (AMB) | payer OTHER, SELFPAY ==
--- NOTE | 2023-06-12 14:01 | A.OFFVIS_ITS ---
Intake Vital Signs 06/12/23 14:02 Height 5 ft 5 in Weight 215 lb 2.738 oz BMI 35.8 BP 128/77 Blood Pressure Location Rt brachial Position Sitting Pulse 89 Intake Visit Reasons: Colonoscopy Screening Intake Note: Patient presents to in office visit today as a patient for colonoscopy screening. CC: Patient s/p partial colectomy about 2 years ago at [facility] [place]. She states that she is scheduled to have an abdominal reconstruction s/p infection from abdominal incision and incisional hernia. She c/o occasional constipation, abdominal pain. Patient c/o pain from tail bone that she states it feels like she felt before when she had abcess. 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 Accompanied by: Self / Same As Patient Allergies latex [LATEX] Allergy (Mild, Verified 06/12/23 14:16) RASH Iodinated Contrast Media [IV Contrast Dye] Allergy (Verified 06/12/23 14:16) Anaphylaxis amoxicillin Adverse Reaction (Unknown, Verified 06/12/23 14:16) vaginal infection dulaglutide [From Trulicity] Adverse Reaction (Unknown, Verified 06/12/23 14:16) vomitting, nausea semaglutide [From Ozempic] Adverse Reaction (Unknown, Verified 06/12/23 14:16) Chest pain, vomitting HPI Colonoscopy Screening HPI Details 47 years old female with past medical hi story of COPD, tobacco use, diabetes, hypertension, hyperlipidemia, colon resection, abdominal hernia repair is here today for initial consultation. Patient was referred to us for colonos copy. However patient reports that she did had colonoscopy after her surgery for colon resection. Patient had complications after colon resection and abdominal wall hernia repair. Patient had to have reconstruction of her abdominal umbilical hernia. Currently patient reports that that hernia is getting worse. Patient has to wear abdominal binder, without patient has severe abdominal discomfort. Patient also reports to have rectal pain. Patient reports that it feels like when all her symptoms started couple years ago when she started with rectal abscess. Patient is going to see another provider in [place]. Patient reports to be constipated denies any melena, hematochezia, unintentional weight loss or ribbon like stools. Patient denies any dyspepsia, dysphagia or odynophagia. Patient reports severe allergy to IV dye. Patient reports that she had CTA of that chest to evaluate for PE and for CAD and she end up having an anaphylactic reaction. All available records that include CT scan and Hospital note reviewed. [facility] Medical History Itching Obesity (BMI 30-39.9) Sepsis Diverticulitis of both large and small intestine with perforation and abscess Diverticulitis of large intestine with abscess Morbid obesity with BMI of 50.0-59.9, adult Hypertension Vitamin D deficiency B12 deficiency Diabetic nephropathy associated with type 2 diabetes mellitus Dyslipidemia Hirsutism Diabetes type 2, uncontrolled Surgical History Hx of abdominal surgery Hx of umbilical hernia repair History of ankle surgery Hx of section Family History Father Throat cancer Cirrhosis Mother Diabetes Social History Household Members: None Housing: House Do you presently have visiting nurse or other home services: Yes Alcohol intake: never Patient Tobacco Use Status: Current everyday Tobacco user Tobacco use type: Cigarette Cigarettes Per Day: 5 Years Smoked: 30 e-Cigarette/Vaping Use: Never Used Second Hand Smoke Exposure: Yes Substance Use Type: Marijuana Advance Directives Date on File: 05/05/21 service: No Current occupational status: disabled Cognitive needs: No Hearing needs: No Vision needs: Yes Review of Systems Const Denies weight gain and Denies weight loss ENT Reports no additional complaints, Denies dysphagia and Denies odynophagia Card Reports no additional complaints Resp Reports no additional complaints GI Reports abdominal pain, Denies belching, Denies melena, Reports bloating, Denies change in bowel habits, Reports constipation, Denies dysphagia, Denies excessive flatus, Denies dyspepsia, Denies heartburn, Denies diarrhea, Denies loose stools, Denies nausea, Denies odynophagia, Denies vomiting and Reports other (Rectal pressure) Reports no additional complaints Musc Reports no additional complaints Neuro Reports no additional complaints Psych Reports no additional complaints Endo Reports no additional complaints Physical Exam Vital Signs: Last Vital Signs Pulse 89 06/12/23 14:02 BP 128/77 06/12/23 14:02 BMI result Body Mass Index 35.8 Const General: no acute distress Nutritional Appearance: obese Orientation/consciousness: patient oriented x3 HEENT Head: Yes normal to inspection, Yes normocephalic and Yes atraumatic Face and sinus: Yes normal facial exam Mouth: Normal oral and palatal mucosa present Throat: Yes posterior oropharynx normal, Yes tonsils normal and Yes uvula midline Eyes General: appearance normal, both eyes and all related structures Neck Neck: Yes normal visual inspection, Yes full ROM and Yes trachea midline Thyroid: Thyroid normal Resp Effort & Inspection: normal respiratory effort, able to speak in complete sentences, no tracheal deviation and symmetric chest movement Auscultation: clear to auscultation bilaterally Cardio Rate: regular rate GI Inspection: Yes distended, Yes obesity and Yes other (Old surgical scars) Palpation (GI): Soft to palpation, not firm and nontender Auscultation: normal bowel sounds General: Yes no CVA tenderness Back/Spine/Pelvis Back: no CVA tenderness Skin General skin exam: elasticity normal, turgor normal and dry skin Neuro General: patient oriented x3 Psych Appearance: grossly normal Mental Status: mental status grossly normal Assessment & Plan Assessment & Plan (1) Abscess of sigmoid colon: Code(s): K63.0 - Abscess of intestine (2) Screen for colon cancer: Code(s): Z12.11 - Encounter for screening for malignant neoplasm of colon (3) Diverticulosis: Code(s): K57.90 - Diverticulosis of intestine, part unspecified, without perforation or abscess without bleeding Plan Please get recent records from [facility]. Will hold off on sending patient for colonoscopy. Patient most likely had colonoscopy after colon resection. Patient reports that she believes she had one afterher surgery. Patient has appointment with surgeon in [place] for surgical procedure. Patient will return in 1 week. Depending on records we might order MRI of abdomen and pelvis to rule out abscess. Patient is unable to have IV dye so we will hold off on getting abdominal CT scan for now. Patient is agreeable to this plan and verbalizes understanding of instructions. She was given the opportunity to ask questions and all questions answered. Thank you for allowing me to participate in her care a Orders: Orders MR harrison wo/w con 06/12/23 K63.0 - Abscess of intestine Basic Metabolic Panel 06/12/23 E11.65 - Type 2 diabetes mellitus with hyperglycemia Complete Blood Count no Diff 06/12/23 K21.9 - Gastro-esophageal reflux disease without esophagitis Coding Level of Care Code New Pt Level 4 (43659) Diagnoses Abscess of sigmoid colon K63.0 Screen for colon cancer Z12.11 Diverticulosis K57.90 Time Spent (min) 50 Comment 30 minutes spent with patient and additional 20 minutes spent reviewing her records
[2023-06-12 14:02] VITALS: BP 128/77; PULSE 89; BMI 35.8
== END 2023-06-12 15:20 | disposition home or self-care (01) ==
PROVIDERS: PCP Physician Assistant; Visit Provider Nurse Practitioner Family
DX: K63.0 Abscess of intestine (principal); Z12.11 Encounter for screening for malignant neoplasm of colon; K57.90 Diverticulosis of intestine, part unspecified, without perforation or abscess without bleeding
CPT/HCPCS: 99204

== ENCOUNTER 2023-06-12 13:57 | Outpatient (REF) | payer OTHER, SELFPAY ==
[2023-06-12 15:30] LABS: Hematocrit 39.8 % (37.0-47.0); Hemoglobin 13.3 g/dl (12.0-16.0); Mean Corpuscular HGB Conc 33.4 g/dl (31.0-35.0); Mean Corpuscular Volume 77.7 fL (80.0-98.0); Mean Platelet Volume 11.1 fL (9.4-12.3); Platelet Count 286 X10*3/uL (160-400); Red Blood Count 5.12 X10*6/uL (4.20-5.50); Red Cell Distribution Width 15.3 % (11.0-16.0); White Blood Count 15.2 X10*3/uL (4.8-10.8)
[2023-06-12 15:53] LABS: Anion Gap 8 (12-20); Blood Urea Nitrogen 9 mg/dL (9-16); Calcium 9.2 mg/dL (8.4-10.2); Carbon Dioxide 28 mmol/L (22-29); Chloride 106 mmol/L (96-108); Estimated Glomerular Filt Rate > 60; Glucose Random 128 mg/dL (60-115); Potassium 3.9 mmol/L (3.3-5.1); Sodium 138 mmol/L (135-145)
[2023-06-12 16:38] LABS: C Reactive Protein 2.02 mg/dL (< or = 0.50)
[2023-06-12 17:26] LABS: Erythrocyte Sedimentation Rate 62 MM/HR (0-20)
== END 2023-06-12 13:58 | disposition home or self-care (01) ==
LOC: HO.LAB 13:57
PROVIDERS: Absent Provider Nurse Practitioner Family; PCP Physician Assistant; Visit Provider Nurse Practitioner Family
DX: Z01.818 Encounter for other preprocedural examination (principal); K58.9 Irritable bowel syndrome, unspecified; K63.0 Abscess of intestine; K57.90 Diverticulosis of intestine, part unspecified, without perforation or abscess without bleeding; K21.9 Gastro-esophageal reflux disease without esophagitis; R10.9 Unspecified abdominal pain; E11.65 Type 2 diabetes mellitus with hyperglycemia
CPT/HCPCS: 36415; 80048; 85027; 85652; 86140; 99202

== ENCOUNTER 2023-06-19 14:58 | Outpatient (AMB) | payer OTHER, SELFPAY ==
--- NOTE | 2023-06-19 15:10 | MHC.OFFVIS ---
Intake Vital Signs 06/19/23 15:18 Height 5 ft 5 in Weight 215 lb BMI 35.8 BP 121/69 Blood Pressure Location Rt brachial Position Sitting Pulse 101 H Intake Visit Reasons: Follow up one week Intake Note: Patient presents to in office visit today in a 1 week follow up. CC: Patient [place] partial [place] about [place] [facility] [place] 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 Accompanied by: Self / Same As Patient Allergies latex [LATEX] Allergy (Mild, Verified 07/06/23 13:23) RASH Iodinated Contrast Media [IV Contrast Dye] Allergy (Verified 07/06/23 13:23) Anaphylaxis amoxicillin Adverse Reaction (Unknown, Verified 07/06/23 13:23) vaginal infection dulaglutide [From Trulicity] Adverse Reaction (Unknown, Verified 07/06/23 13:23) vomitting, nausea semaglutide [From Ozempic] Adverse Reaction (Unknown, Verified 07/06/23 13:23) Chest pain, vomitting HPI Follow up one week HPI Details LAST VISIT: Abscess of sigmoid colon Screen for colon cancer Diverticulosis Plan Please get recent records from [facility]. Will hold off on sending patient for colonoscopy. Patient most likely had colonoscopy after colon resection. Patient reports that she believes she had one afterher surgery. Patient has appointment with surgeon in [place] for surgical procedure. Patient will return in 1 week. Depending on records we might order MRI of abdomen and pelvis to rule out abscess. Patient is unable to have IV dye so we will hold off on getting abdominal CT scan for now. Patient is agreeable to this plan and verbalizes understanding of instructions. She was given the opportunity to ask questions and all questions answered. ? Thank you for allowing me to participate in her care a Orders Orders MR pelvis wo/w con 06/12/23 K63.0 Basic Metabolic Panel 06/12/23 E11.65 Complete Blood Count no Diff 06/12/23 K21.9 TODAY'S VISIT Patient is here today for follow-up. Some of the office visits and CT scan from [facility] reviewed. Patient had mildly elevated white count with elevation in ESR and CRP. Awaiting for patient to go for MRI of pelvis with and without contrast to rule out if there is any abscess. Patient reports no fever or chills. Reports that she is moving her bowels well. Denies any rectal discharge of rectal pain. Patient denies any melena, hematochezia, unintentional weight loss or ribbon like stools. Patient has appointment with surgeon in [place] on . Patient denies any nausea or vomiting. Patient reports that she forgot to wear her abdominal binder today and she has more abdominal discomfort as she had to walk up the stairs. [facility] Medical History Itching Obesity (BMI 30-39.9) Sepsis Diverticulitis of both large and small intestine with perforation and abscess Diverticulitis of large intestine with abscess Morbid obesity with BMI of 50.0-59.9, adult Hypertension Vitamin D deficiency B12 deficiency Diabetic nephropathy associated with type 2 diabetes mellitus Dyslipidemia Hirsutism Diabetes type 2, uncontrolled Surgical History Hx of abdominal surgery Hx of umbilical hernia repair History of ankle surgery Hx of section Family History Father Throat cancer Cirrhosis Mother Diabetes Social History Household Members: None Housing: House Do you presently have visiting nurse or other home services: Yes Alcohol intake: never Patient Tobacco Use Status: Current everyday Tobacco user Tobacco use type: Cigarette Cigarettes Per Day: 5 Years Smoked: 30 e-Cigarette/Vaping Use: Never Used Second Hand Smoke Exposure: Yes Substance Use Type: Marijuana Advance Directives Date on File: 05/05/21 service: No Current occupational status: disabled Cognitive needs: No Hearing needs: No Vision needs: Yes Review of Systems Const Denies weight gain and Denies weight loss ENT Reports no additional complaints, Denies dysphagia and Denies odynophagia Card Reports no additional complaints Resp Reports no additional complaints GI Reports abdominal pain (LLQ, LUQ), Denies belching, Denies melena, Denies bloating, Denies change in bowel habits, Reports constipation, Denies dysphagia, Denies excessive flatus, Denies dyspepsia, Denies heartburn, Denies diarrhea, Denies loose stools, Denies nausea, Denies odynophagia and Denies vomiting Reports no additional complaints Musc Reports no additional complaints Neuro Reports no additional complaints Psych Reports no additional complaints Endo Reports no additional complaints Physical Exam Vital Signs: Last Vital Signs Pulse 101 H 06/19/23 15:18 BP 121/69 06/19/23 15:18 BMI result Body Mass Index 35.8 Const General: cooperative Nutritional Appearance: obese Orientation/consciousness: patient oriented x3 HEENT Head: Yes normal to inspection, Yes normocephalic and Yes atraumatic Face and sinus: Yes normal facial exam Mouth: Normal oral and palatal mucosa present Throat: Yes posterior oropharynx normal, Yes tonsils normal and Yes uvula midline Eyes General: appearance normal, both eyes and all related structures Neck Neck: Yes normal visual inspection, Yes full ROM and Yes trachea midline Thyroid: Thyroid normal Resp Effort & Inspection: normal respiratory effort, able to speak in complete sentences, no tracheal deviation and symmetric chest movement Auscultation: clear to auscultation bilaterally Cardio Rate: regular rate Heart sounds: S1 normal heart sound present and S2 normal heart sound present GI Inspection: No distended, Yes obesity and Yes visible herniation (Large) Palpation (GI): Firmness to palpation present (GI) Auscultation: normal bowel sounds General: Yes no CVA tenderness Back/Spine/Pelvis Back: no CVA tenderness Skin General skin exam: elasticity normal, turgor normal and dry skin Neuro General: patient oriented x3 Psych Appearance: grossly normal Mental Status: mental status grossly normal Speech and movement: Normal speech and movement present Affect: normal affect Attitude: cooperative Thought process: Normal thought process present Thought content: Normal thought content present Insight: Good insight present (Psych) Judgement: Good judgement present (Psych) Results Reviewed Results Reviewed: Laboratory Tests 06/12/23 15:15 WBC 15.2 H ESR 62 H Assessment & Plan Assessment & Plan (1) Abscess of sigmoid colon: Code(s): K63.0 - Abscess of intestine (2) Diverticulosis: Code(s): K57.90 - Diverticulosis of intestine, part unspecified, without perforation or abscess without bleeding (3) GERD (gastroesophageal reflux disease): Code(s): K21.9 - Gastro-esophageal reflux disease without esophagitis Qualifiers: Esophagitis presence: without esophagitis Qualified Code(s): K21.9 - Gastro-esophageal reflux disease without esophagitis (4) Chronic abdominal pain: Code(s): R10.9 - Unspecified abdominal pain; G89.29 - Other chronic pain (5) Incisional hernia: Code(s): K43.2 - Incisional hernia without obstruction or gangrene Qualifiers: Obstruction and gangrene presence: without obstruction or gangrene Qualified Code(s): K43.2 - Incisional hernia without obstruction or gangrene Plan Patient is here today for follow-up. Reports that she has been doing well. Denies any rectal pain. Denies any discharge. Recommend using stool softeners to help her move bowels better. Patient was encouraged to wear abdominal binder all the times for comfort. Patient will undergo most likely incisional hernia repair that is quite large at [facility]. Appointment will be on this week. Patient will follow-up in the office in the month, sooner on as needed basis. She is agreeable to this plan and verbalizes understanding of instructions. She was given the opportunity to ask questions and all questions answered. Thank you for allowing me to participate in her care is Medications: New docusate sodium 100 mg PO BEDTIME 90 caps 3RF K59.00 - Constipation, unspecified Coding Level of Care Code Est Pt Level 3 (01021) Diagnoses Abscess of sigmoid colon K63.0 Diverticulosis K57.90 Gastroesophageal reflux disease without esophagitis K21.9 Esophagitis presence: without esophagitis Chronic abdominal pain R10.9; G89.29 Incisional hernia, without obstruction or gangrene K43.2 Obstruction and gangrene presence: without obstruction or gangrene Time Spent (min) 30 Comment 20 minutes spent with patient and additional 10 minutes spent reviewing her records
[2023-06-19 15:18] VITALS: BP 121/69; PULSE 101; BMI 35.8
== END 2023-06-19 15:55 | disposition home or self-care (01) ==
PROVIDERS: PCP Physician Assistant; Visit Provider Nurse Practitioner Family
DX: K63.0 Abscess of intestine (principal); K57.90 Diverticulosis of intestine, part unspecified, without perforation or abscess without bleeding; K21.9 Gastro-esophageal reflux disease without esophagitis; R10.9 Unspecified abdominal pain; G89.29 Other chronic pain; K43.2 Incisional hernia without obstruction or gangrene
CPT/HCPCS: 99213

== ENCOUNTER → 2023-06-19 14:58 | Outpatient (BNVA) | payer OTHER, SELFPAY | PROVIDERS: PCP Physician Assistant; Visit Provider Nurse Practitioner Family | DX: R10.32 Left lower quadrant pain (principal); G89.29 Other chronic pain; K43.2 Incisional hernia without obstruction or gangrene; K63.0 Abscess of intestine; K57.90 Diverticulosis of intestine, part unspecified, without perforation or abscess without bleeding; K21.9 Gastro-esophageal reflux disease without esophagitis; Z90.49 Acquired absence of other specified parts of digestive tract | CPT/HCPCS: 99212 ==

== ENCOUNTER 2023-07-06 09:55 | Outpatient (AMB) | payer OTHER, SELFPAY ==
[2023-07-06 09:58] VITALS: BP 120/84; PULSE 72; BMI 36.0
--- NOTE | 2023-07-06 09:58 | A.OFFPC_ITS ---
Vital Signs 07/06/23 09:58 Height 5 ft 5 in Weight 216 lb 4 oz BMI 36.0 BP 120/84 Blood Pressure Location Lt brachial Position Sitting Pulse 72 Pulse Source Palpation Intake Visit Reasons: [facility], Unable to stand due to dizziness, 07/03 Intake Note: The individual is present for a follow-up appointment subsequent to a visit to the emergency department at [facility] on July 03, 2023, concerning chest pain and pressure on the left side of the ear, described as a sensation rachelle to something crawling. Sheep Sorter Required: No Accompanied by: Self / Same As Patient Allergies latex [LATEX] Allergy (Mild, Verified 07/06/23 13:23) RASH Iodinated Contrast Media [IV Contrast Dye] Allergy (Verified 07/06/23 13:23) Anaphylaxis amoxicillin Adverse Reaction (Unknown, Verified 07/06/23 13:23) vaginal infection dulaglutide [From Trulicity] Adverse Reaction (Unknown, Verified 07/06/23 13:23) vomitting, nausea semaglutide [From Ozempic] Adverse Reaction (Unknown, Verified 07/06/23 13:23) Chest pain, vomitting Medication List - Last Reconciled 07/06/23 by Cruz Navas PA-C acetaminophen 500 - 1,000 mg (1 - 2 x 500 mg) PO Q6H PRN albuterol sulfate 2.5 mg (3 mL) inhalation Q6H PRN 30 days albuterol sulfate 90 mcg/actuation 1 inh inhalation QID PRN 30 days amlodipine 5 mg PO DAILY aspirin 81 mg PO DAILY blood sugar diagnostic (FreeStyle Test strips) testing 3x daily cholecalciferol (vitamin D3) (Vitamin D3) 25 mcg PO DAILY diltiazem HCl 180 mg PO DAILY docusate sodium 100 mg PO BEDTIME epinephrine (EpiPen 2-Josué) 0.3 mg (0.3 mL) IM ONCE PRN fenofibrate nanocrystallized 145 mg PO DAILY flash glucose scanning reader (FreeStyle Tiff 2 [place]) 1 ea miscellaneous DIRECTED flash glucose sensor (FreeStyle Tiff 2 Sensor kit) DIRECTED EVERY 2 WEEKS fluticasone propion-salmeterol 250-50 mcg/dose (Advair Diskus) 1 ea inhalation BID 30 days insulin glargine (Lantus Solostar U-100 Insulin) 80 units (0.8 mL) subcut DAILY insulin lispro 20 - 30 units subcut TID miscellaneous medical supply 1 ea miscellaneous DAILY 99 days nitroglycerin 0.4 mg sublingual Q5M PRN 15 days oxycodone 5 mg PO BID PRN 5 days pen needle, diabetic (BD Ultra-Fine Macy Pen Needle) USE DIRECTED 4 TIMES DAILY tirzepatide (Mounjaro) 10 mg (0.5 mL) subcut QWEEK Tobacco use date assessed: 12/26/22 [facility], Unable to stand due to dizziness, 07/03 [facility] Details Patient is a 47-year-old female here today for a ER follow-up visit.? Patient has a past medical history significant for obesity, type 2 diabetes, tobacco dependency, generalized anxiety disorder, chronic incisional abdominal hernia. Patient was seen at the ER for acute dizziness when standing, feeling weird sensation in her brain and in bilateral ears. He has had these symptoms in the past. Symptoms got better with meclizine. Labs are normal. Abdominal imaging showed her large abdominal hernia. Unfortunately she has gained weight back and she has started smoking again. She is getting discouraged that she continues to be in pain in her abdomen as she has not been able to get abdominal reconstructive surgery. CHRONIC MEDICAL CONDITIONS--> . Incisional hernia:? Recently has noted enlarging of her an hernia, she feels that the bottom half of her abdomen now hangs even lower. She reports more pain and an itchy sensation all over her abdomen recently. She does report having difficulty with passing stool often having to lean over the counter in order to help move bowels. She is in contact with general surgeon hernia specialist at [facility].? Her case is complicated as she does also need reconstruction of her abdomen includin g a plastic surgeon. Has been controlling her blood sugars with Endocrinology and has lost weight since last office visit. Has been cutting down her cigarette smoking. Is trying to get her diabetes under control so that she can have incisional hernia repair.? Continues to have moderate to severe pain at times in her abdomen as she feels the hernia stretches her abdominal muscles causing severe pain.? she does use low-dose oxycodone 5 mg on a limited p.r.n. basis.? She does understand the habit-forming nature of this medication and only uses this on a once a day as needed basis.? She anticipates surgery this year to fix her abdominal hernia. Type 2 diabetes:? followed by Endocrinology and started a new insulin ( Mounjaro) which has been allowing her to keep excellent control over blood sugars. A1c now down below 8. ? Blood sugars have been much better controlled the patient has lost weight.? She feels much better and has more energy. [facility] Medical History Itching Obesity (BMI 30-39.9) Sepsis Diverticulitis of both large and small intestine with perforation and abscess Diverticulitis of large intestine with abscess Morbid obesity with BMI of 50.0-59.9, adult Hypertension Vitamin D deficiency B12 deficiency Diabetic nephropathy associated with type 2 diabetes mellitus Dyslipidemia Hirsutism Diabetes type 2, uncontrolled Surgical History Hx of abdominal surgery Hx of umbilical hernia repair History of ankle surgery Hx of section Family History Father Throat cancer Cirrhosis Mother Diabetes Social History Household Members: None Housing: House Do you presently have visiting nurse or other home services: Yes Alcohol intake: never Patient Tobacco Use Status: Current everyday Tobacco user Tobacco use type: Cigarette Cigarettes Per Day: 5 Years Smoked: 30 e-Cigarette/Vaping Use: Never Used Second Hand Smoke Exposure: Yes Substance Use Type: Marijuana Advance Directives Date on File: 05/05/21 service: No Current occupational status: disabled Cognitive needs: No Hearing needs: No Vision needs: Yes Questionnaire Thrive Questionnaire Date Thrive assessed: 12/26/22 RUI-7 AMB Questionnaire RUI-7 Date RUI - 7 assessed: 12/26/22 Source: Developed by Drs. Kahlil Thao, Patito Pradhan, Shine Carias and colleagues, with an educational kathleen from [employer]. Review of Systems Const Reports headache(s) Eyes Denies loss of vision ENT Denies vertigo, Reports dizziness, Reports headache(s) and Denies sore throat Card Denies chest pain, Denies leg edema and Denies lightheadedness Resp Denies cough, Denies hemoptysis and Denies wheezing GI Denies abdominal pain, Denies melena, Denies constipation, Denies diarrhea and Denies vomiting Denies urinary frequency, Denies dysuria and Denies urinary urgency Musc Denies arthralgias, Denies joint swelling, Denies numbness and Denies tingling Neuro Denies Abnormal speech present, Denies behavioral changes, Denies vertigo, Reports dizziness, Reports headache(s), Denies loss of vision, Denies memory loss, Denies numbness and Denies tingling Psych Denies anxiety, Denies behavioral changes, Denies depression, Denies memory loss and Denies panic attacks Abhijit/Lymph Denies easy bleeding and Denies easy bruising Aller/Immun Denies wheezing Physical exam (Primary Care) Vital Signs: Last Vital Signs Pulse 72 07/06/23 09:58 BP 120/84 07/06/23 09:58 BMI result Body Mass Index 36.0 BMI Assessment/Plan discussion: High Tobacco/Smoking Status: Tobacco use Status Tobacco use date assessed 12/26/22 07/06/23 10:00 Patient Tobacco Use Status Current everyday Tobacco 07/06/23 10:00 Tobacco use type Cigarette 07/06/23 10:00 e-Cigarette/Vaping Use Never Used 07/06/23 10:00 Thrive Assessment: Date of Thrive Assessment Date Thrive assessed 12/26/22 07/06/23 10:00 Const General: healthy appearing, no acute distress, alert and awake Nutritional Appearance: well nourished Orientation/consciousness: oriented to person, oriented to place and oriented to time HENMT Other: NOTABLE CERUMEN IMPACTION IN LEFT EAR Ears: TM's normal bilaterally General nose exam: Normal nasal mucous membranes and turbinates present Eyes Conjunctivae: conjunctivae normal Sclerae: sclerae normal Pupils: Equal, round and reactive pupils present Neck Neck: Yes no lymphadenopathy and Yes no JVD Thyroid: Thyroid normal Carotids: no bruits Resp Effort & Inspection: normal respiratory effort and not tachypneic Auscultation: no crackles, no rales, no rhonchi and no wheezes Cardio Rate: regular rate Rhythm: regular rhythm Heart sounds: no murmurs and normal S1 and S2 GI Palpation (GI): Soft to palpation, nontender, no hepatomegaly and no splenomegaly Auscultation: normal bowel sounds Skin General skin exam: no rashes or lesions noted and dry skin Neuro General: oriented to person, oriented to place and oriented to time Cranial nerves: Yes Equal, round and reactive pupils present Speech: No Abnormal speech present Gait exam (Neuro): Normal gait present Motor exam (neuro): no tremor noted Extrem Right upper extremity: full ROM Left upper extremity: full ROM Right lower extremity: full ROM; no edema Left lower extremity: full ROM; no edema Psych Mental Status: mental status grossly normal Speech and movement: Normal speech and movement present Affect: normal affect Attitude: cooperative Thought process: Normal thought process present Assessment and Plan Assessment & Plan (1) Vertigo: Code(s): R42 - Dizziness and giddiness Plan: Patient's signs and symptoms most consistent with the benign vertigo. Advised on trying Sergio maneuvers at home. Will consider formal vestibular therapy. Will supply patient with meclizine to use for as needed dizziness. Also has a cerumen impaction in left ear which could be making situation worse. Like to see an ENT specialist (2) Incisional hernia: Code(s): K43.2 - Incisional hernia without obstruction or gangrene Qualifiers: Obstruction and gangrene presence: without obstruction or gangrene Qualified Code(s): K43.2 - Incisional hernia without obstruction or gangrene Plan: Patient continues to have chronic abdominal pain causing her tremendous deal of stress and hindrance of her activities of daily living. She uses oxycodone 5 mg on a limited p.r.n. basis for pain scales of 9-10. She continues to use Tylenol otherwise. Will supply her with dicyclomine to help with bowel spasms and pain as well. She reports she might be able to get reconstruction surgery in September of 2023 (3) Left ear impacted cerumen: Code(s): H61.22 - Impacted cerumen, left ear Orders: Referrals Ear/Nose/Throat Referral H61.22 - Impacted cerumen, left ear Medications: New meclizine 25 mg PO TID PRN 45 tabs 0RF dizziness 15 days R42 - Dizziness and giddiness dicyclomine 20 mg PO TID PRN 45 tabs 0RF abdominal pain 15 days G89.29 - Other chronic pain, R10.9 - Unspecified abdominal pain Refilled oxycodone Partial Fill upon patient request. 5 mg PO BID PRN 10 tabs 0RF pain 5 days G89.29 - Other chronic pain, R10.9 - Unspecified abdominal pain Discontinued docusate sodium Discontinued Reason: Doctor's Order 100 mg PO BEDTIME 90 caps 3RF K59.00 - Constipation, unspecified Coding Level of Care Code Est Pt Level 4 (77457) Diagnoses Vertigo R42 Incisional hernia, without obstruction or gangrene K43.2 Obstruction and gangrene presence: without obstruction or gangrene Left ear impacted cerumen H61.22
== END 2023-07-06 10:55 | disposition home or self-care (01) ==
PROVIDERS: PCP Physician Assistant; Visit Provider Physician Assistant
DX: R42 Dizziness and giddiness (principal); K43.2 Incisional hernia without obstruction or gangrene; H61.22 Impacted cerumen, left ear
CPT/HCPCS: 99214

== ENCOUNTER 2023-07-06 13:15 | Outpatient (AMB) | payer OTHER, SELFPAY ==
[2023-07-06 13:20] VITALS: BP 130/82; PULSE 91; BMI 36.0
--- NOTE | 2023-07-06 13:20 | MHC.OFFVIS ---
Intake Vital Signs 07/06/23 13:20 Height 5 ft 5 in Weight 216 lb 7.903 oz BMI 36.0 BP 130/82 Blood Pressure Location Rt brachial Position Sitting Pulse 91 Pulse Source Monitor Intake Visit Reasons: 3M follow up Industrial Economist Required: No Allergies latex [LATEX] Allergy (Mild, Verified 07/06/23 13:23) RASH Iodinated Contrast Media [IV Contrast Dye] Allergy (Verified 07/06/23 13:23) Anaphylaxis amoxicillin Adverse Reaction (Unknown, Verified 07/06/23 13:23) vaginal infection dulaglutide [From Trulicity] Adverse Reaction (Unknown, Verified 07/06/23 13:23) vomitting, nausea semaglutide [From Ozempic] Adverse Reaction (Unknown, Verified 07/06/23 13:23) Chest pain, vomitting Medication List - Last Reconciled 07/06/23 by Arelis Hamilton NP-C acetaminophen 500 - 1,000 mg (1 - 2 x 500 mg) PO Q6H PRN albuterol sulfate 2.5 mg (3 mL) inhalation Q6H PRN 30 days albuterol sulfate 90 mcg/actuation 1 inh inhalation QID PRN 30 days amlodipine 5 mg PO DAILY aspirin 81 mg PO DAILY blood sugar diagnostic (FreeStyle Test strips) testing 3x daily cholecalciferol (vitamin D3) (Vitamin D3) 25 mcg PO DAILY dicyclomine 20 mg PO TID PRN 15 days epinephrine (EpiPen 2-Josué) 0.3 mg (0.3 mL) IM ONCE PRN fenofibrate nanocrystallized 145 mg PO DAILY flash glucose scanning reader (FreeStyle Tiff 2 [place]) 1 ea miscellaneous DIRECTED flash glucose sensor (FreeStyle Tiff 2 Sensor kit) DIRECTED EVERY 2 WEEKS fluticasone propion-salmeterol 250-50 mcg/dose (Advair Diskus) 1 ea inhalation BID 30 days insulin glargine (Lantus Solostar U-100 Insulin) 80 units (0.8 mL) subcut DAILY insulin lispro 20 - 30 units subcut TID meclizine 25 mg PO TID PRN 15 days miscellaneous medical supply 1 ea miscellaneous DAILY 99 days nitroglycerin 0.4 mg sublingual Q5M PRN 15 days oxycodone 5 mg PO BID PRN 5 days pen needle, diabetic (BD Ultra-Fine Macy Pen Needle) USE DIRECTED 4 TIMES DAILY tirzepatide (Mounjaro) 10 mg (0.5 mL) subcut QWEEK HPI 3M follow up HPI Details Mckenzie is a 47-year-old female with past medical history of hypertension, hyperlipidemia, diabetes, smoking, obesity, chest discomfort who recently reported heart palpitations and underwent a Holter monitor showing brief atrial tach. Due to feelings of rapid heart palpitations her amlodipine was changed to diltiazem. She now presents for follow-up. Today she reports that she did not sweet pickle maker the diltiazem and now she is unable to get. She is requesting that it be recent to her pharmacy. She is noticing episodes of heart palpitations that cause her much concern. She feels her heart beating rapidly occurring at least 6 times in the last month. She says it can go on for minutes to hours and be on and off all day. No associated symptoms of lightheadedness, shortness of breath, chest discomfort. She will get random sharp pains in her chest at other times. No PND, orthopnea or edema. No presyncope, syncope, falls. Has plan for surgery at [facility] in August 2023 for a large incisional hernia and is requesting cardiac clearance. [facility] Medical History Itching Obesity (BMI 30-39.9) Sepsis Diverticulitis of both large and small intestine with perforation and abscess Diverticulitis of large intestine with abscess Morbid obesity with BMI of 50.0-59.9, adult Hypertension Vitamin D deficiency B12 deficiency Diabetic nephropathy associated with type 2 diabetes mellitus Dyslipidemia Hirsutism Diabetes type 2, uncontrolled Surgical History Hx of abdominal surgery Hx of umbilical hernia repair History of ankle surgery Hx of section Family History Father Throat cancer Cirrhosis Mother Diabetes Social History Household Members: None Housing: House Do you presently have visiting nurse or other home services: Yes Alcohol intake: never Patient Tobacco Use Status: Current everyday Tobacco user Tobacco use type: Cigarette Cigarettes Per Day: 5 Years Smoked: 30 e-Cigarette/Vaping Use: Never Used Second Hand Smoke Exposure: Yes Substance Use Type: Marijuana Advance Directives Date on File: 05/05/21 service: No Current occupational status: disabled Cognitive needs: No Hearing needs: No Vision needs: Yes Review of Systems Const All systems reviewed & are unremarkable except as noted in HPI and below ENT Reports dizziness Card Reports chest pain, Denies chest pain at rest, Denies chest pain with activity, Reports rapid heart rate, Denies pedal edema, Denies edema, Denies leg edema, Denies lightheadedness, Reports palpitations, Denies dyspnea, Denies dyspnea on exertion and Denies orthopnea Resp Denies cough, Denies dyspnea and Denies dyspnea on exertion GI Details: Wearing abdominal binder due to large hernia Reports abdominal pain, Denies hematochezia and Denies change in stool character Musc Denies abnormal gait, Denies limited range of motion, Denies muscle cramps, Denies muscle weakness, Denies numbness, Denies radiating pain into limb, Denies stiffness and Denies tingling Neuro Denies abnormal gait, Reports dizziness, Denies numbness and Denies tingling Endo Reports palpitations Physical Exam Vital Signs: Last Vital Signs Pulse 91 07/06/23 13:20 BP 130/82 07/06/23 13:20 BMI result Body Mass Index 36.0 Const General: cooperative, comfortable and no acute distress Orientation/consciousness: patient oriented x3 Neck Neck: Yes normal visual inspection Resp Effort & Inspection: normal respiratory effort Auscultation: clear to auscultation bilaterally, no crackles, no rales, no rhonchi and no wheezes Cardio Jugular venous distension: no JVD Rate: regular rate Rhythm: regular rhythm Heart sounds: S1 normal heart sound present, S2 normal heart sound present, no murmurs and no rubs GI Other: Abdominal binder in use Neuro General: patient oriented x3 Extrem General: Yes normal to inspection Psych Appearance: grossly normal Mental Status: mental status grossly normal Speech and movement: Normal speech and movement present Office Procedures EKG Details: Today, read by me, normal sinus rhythm, no acute ST or T-wave abnormalities, rate 91 QTC 450 [id number], Complete Assessment & Plan Assessment & Plan (1) Heart palpitations: Code(s): R00.2 - Palpitations Plan: Reports of heart palpitations like her heart is beating fast. This causes discomfort and anxiety followed by fatigue. Holter monitor done on 01/25/2023 for 3 days showed sinus rhythm with average heart rate 92, heart rate range 73 to 139, rare SVE, 12 beat atrial tach. She seems very anxious and bothered by her fast heartbeats. She could be having longer episodes of atrial tach at times. Reviewed the benefits of caffeine cessation, stress reduction activities. On last visit plan was to stop amlodipine and changed to diltiazem however it she did not sweet pickle maker the script. Today she reports rapid heart palpitations lasting several minutes to hours 6 times in the last month. At this time will proceed as planned with stopping amlodipine and changing over to diltiazem CD. Plan to call her in 2-3 weeks to assess condition. Cardiology follow-up in 6 months, sooner if needed (2) Chest pain: Code(s): R07.9 - Chest pain, unspecified Qualifiers: Chest pain type: unspecified Qualified Code(s): R07.9 - Chest pain, unspecified Plan: Prior reports of chest discomfort or like squeezing. She has multiple cardiac risk factors including obesity, smoking, hypertension, hyperlipidemia and diabetes. Echocardiogram done at [facility] on 09/21/2022 shows normal EF, no regional wall motion abnormality. CTA of the coronary arteries done on 12/16/2022 showed study limitations as her heart rate was not well controlled. They make note she was premedicated and did not show signs of true allergy. Due to anxiety and shortness of breath she was sent to the ER for further evaluation without acute findings. Mild calcific plaque seen in the proximal segment of the distal LAD, less than 25% stenosis. No additional definite plaque noted. Test results previously reviewed with her. At this time she describes getting some atypical sound chest discomfort. Offered reassurance. Signs and symptoms of angina reviewed. Strict need for cardiac risk factor modification discussed. Good blood sugar control is essential. Continue good blood pressure and cholesterol control with LDL goal less than 70. Quit smoking, increase physical activity, low-fat diet all reviewed. Patient states understanding. Continue aspirin. She is not on statin for unclear reason. Recommend use of statin in this diabetic patient no contraindications. (3) Atrial tachycardia: Code(s): I47.1 - Supraventricular tachycardia Plan: Brief episode seen on Holter monitor (4) Hypertension: Code(s): I10 - Essential (primary) hypertension Qualifiers: Hypertension type: primary hypertension Qualified Code(s): I10 - Essential (primary) hypertension Plan: Well controlled at present. Med change as above (5) Dyslipidemia: Code(s): E78.5 - Hyperlipidemia, unspecified Plan: As above (6) Preop cardiovascular exam: Code(s): Z01.810 - Encounter for preprocedural cardiovascular examination Plan: Preop for incisional hernia repair in September 2023 at [facility]. Will be starting diltiazem today. Plan to see how this medication works on her palpitations then preop clearance will be addressed. Medications: New diltiazem HCl 180 mg PO DAILY 30 caps 3RF Coding Level of Care Code Est Pt Level 4 (18048) Diagnoses Heart palpitations R00.2 Chest pain, unspecified type R07.9 Chest pain type: unspecified Atrial tachycardia I47.1 Primary hypertension I10 Hypertension type: primary hypertension Dyslipidemia E78.5 Preop cardiovascular exam Z01.810 CPT Codes EKG - CPT: 21512-[id number], Complete ([id number]) Time Spent (min) 28
== END 2023-07-06 13:59 | disposition home or self-care (01) ==
PROVIDERS: PCP Physician Assistant; Visit Provider Nurse Practitioner Family
DX: R00.2 Palpitations (principal); R07.9 Chest pain, unspecified; I47.1 Supraventricular tachycardia; I10 Essential (primary) hypertension; E78.5 Hyperlipidemia, unspecified; Z01.810 Encounter for preprocedural cardiovascular examination
CPT/HCPCS: 93010; 99214

== ENCOUNTER → 2023-07-06 13:15 | Outpatient (BNVA) | payer OTHER, SELFPAY | PROVIDERS: PCP Physician Assistant; Visit Provider Nurse Practitioner Family | DX: Z01.810 Encounter for preprocedural cardiovascular examination (principal); R00.2 Palpitations; R07.9 Chest pain, unspecified; I47.10 Supraventricular tachycardia, unspecified; I10 Essential (primary) hypertension; E78.5 Hyperlipidemia, unspecified | CPT/HCPCS: 93005; 99212 ==

== ENCOUNTER 2023-07-25 15:16 | Outpatient (AMB) | payer OTHER, SELFPAY ==
[2023-07-25 15:25] VITALS: BP 120/80; PULSE 113
--- NOTE | 2023-07-25 15:25 | A.OFFVIS_ITS ---
Intake Vital Signs 07/25/23 15:25 Height 5 ft 5 in BP 120/80 Blood Pressure Location Rt brachial Position Sitting Pulse 113 H Pulse Source Pulse Oximeter Intake Visit Reasons: pre op Intake Note: pt its feeling overwhelm with the pain from her abdomen. Insurance Follow Up Representative Required: No Accompanied by: Self / Same As Patient Allergies latex [LATEX] Allergy (Mild, Verified 07/06/23 13:23) RASH Iodinated Contrast Media [IV Contrast Dye] Allergy (Verified 07/06/23 13:23) Anaphylaxis amoxicillin Adverse Reaction (Unknown, Verified 07/06/23 13:23) vaginal infection dulaglutide [From Trulicity] Adverse Reaction (Unknown, Verified 07/06/23 13:23) vomitting, nausea semaglutide [From Ozempic] Adverse Reaction (Unknown, Verified 07/06/23 13:23) Chest pain, vomitting Medication List - Last Reconciled 07/25/23 by Arelis Hamilton OUTREACH COORDINATOR-C acetaminophen 500 - 1,000 mg (1 - 2 x 500 mg) PO Q6H PRN albuterol sulfate 2.5 mg (3 mL) inhalation Q6H PRN 30 days albuterol sulfate 90 mcg/actuation 1 inh inhalation QID PRN 30 days aspirin 81 mg PO DAILY blood sugar diagnostic (FreeStyle Test strips) testing 3x daily cholecalciferol (vitamin D3) (Vitamin D3) 25 mcg PO DAILY dexamethasone 1 mg PO ONCE dicyclomine 20 mg PO TID PRN 15 days epinephrine (EpiPen 2-Josué) 0.3 mg (0.3 mL) IM ONCE PRN fenofibrate nanocrystallized 145 mg PO DAILY flash glucose scanning reader (NEUWAY PharmaStyle Tiff 2 [place]) 1 ea miscellaneous DIRECTED flash glucose sensor (FreeStyle Tiff 2 Sensor kit) DIRECTED EVERY 2 WEEKS fluticasone propion-salmeterol 250-50 mcg/dose (Advair Diskus) 1 ea inhalation BID 30 days insulin glargine (Lantus Solostar U-100 Insulin) 80 units (0.8 mL) subcut DAILY insulin lispro 20 - 30 units subcut TID meclizine 25 mg PO TID PRN 15 days miscellaneous medical supply 1 ea miscellaneous DAILY 99 days nitroglycerin 0.4 mg sublingual Q5M PRN 15 days oxycodone 5 mg PO BID PRN 5 days pen needle, diabetic (BD Ultra-Fine Macy Pen Needle) USE DIRECTED 4 TIMES DAILY tirzepatide (Mounjaro) 10 mg (0.5 mL) subcut QWEEK HPI pre op HPI Details Mckenzie is a 47-year-old female with past medical history of hypertension, hyperlipidemia, diabetes, smoking, obesity, chest discomfort who recently reported heart palpitations and underwent a Holter monitor showing brief atrial tach. On last visit her amlodipine was changed to diltiazem to help with heart palpitations without affect. She is planning to have abdominal hernia repair in the near future. Today she presents for re-evaluation for preop cardiovascular clearance. She is tearful at this visit saying she has been having much abdominal discomfort. She tells me that the pain wraps around her abdomen and all the way around to her back. She wears her abdominal binder but states it is not helping. She was planning to have surgery initially in [place] however states that she can not wait until September and she will be having it on August 04 at [facility]. When she was taking diltiazem she said it made her heart palpitations worse. She stopped that medication but did not restart amlodipine. Her home blood pressures have been variable ranging 120 to 150s systolic. She will get random pains in her chest at rest and with activity. She describes them as sharp and same as prior reports. No concerning shortness of breath, PND, orthopnea or edema. No presyncope, syncope, falls. Taking all meds as directed. [facility] Medical History Itching Obesity (BMI 30-39.9) Sepsis Diverticulitis of both large and small intestine with perforation and abscess Diverticulitis of large intestine with abscess Morbid obesity with BMI of 50.0-59.9, adult Hypertension Vitamin D deficiency B12 deficiency Diabetic nephropathy associated with type 2 diabetes mellitus Dyslipidemia Hirsutism Diabetes type 2, uncontrolled Surgical History Hx of abdominal surgery Hx of umbilical hernia repair History of ankle surgery Hx of section Family History Father Throat cancer Cirrhosis Mother Diabetes Social History Household Members: None Housing: House Do you presently have visiting nurse or other home services: Yes Alcohol intake: never Patient Tobacco Use Status: Current everyday Tobacco user Tobacco use type: Cigarette Cigarettes Per Day: 5 Years Smoked: 30 e-Cigarette/Vaping Use: Never Used Second Hand Smoke Exposure: Yes Substance Use Type: Marijuana Advance Directives Date on File: 05/05/21 service: No Current occupational status: disabled Cognitive needs: No Hearing needs: No Vision needs: Yes Review of Systems Const All systems reviewed & are unremarkable except as noted in HPI and below Denies chills, Denies fatigue, Denies fever(s), Denies frequent falls, Denies weakness, Denies weight gain and Denies weight loss ENT Reports dizziness Card Reports chest pain, Reports rapid heart rate, Denies leg edema, Denies lightheadedness, Denies palpitations, Denies dyspnea and Denies dyspnea on exertion Resp Denies cough, Denies dyspnea and Denies dyspnea on exertion GI Details: abdominal discomfort that radiates around to her back Denies hematochezia Musc Denies abnormal gait, Denies muscle weakness, Denies numbness, Denies radiating pain into limb and Denies tingling Neuro Denies abnormal gait, Reports dizziness, Denies frequent falls, Denies numbness, Denies tingling and Denies weakness Endo Denies fatigue and Denies palpitations Physical Exam Vital Signs: Last Vital Signs Pulse 113 H 07/25/23 15:25 BP 120/80 07/25/23 15:25 Const General: no acute distress Orientation/consciousness: patient oriented x3 Neck Neck: Yes normal visual inspection and Yes no JVD Resp Effort & Inspection: normal respiratory effort Auscultation: clear to auscultation bilaterally, no rales, no rhonchi and no wheezes Cardio Jugular venous distension: no JVD Rate: tachycardic Rhythm: regular rhythm Heart sounds: S1 normal heart sound present, S2 normal heart sound present, no murmurs and no rubs GI Other: distended - wearing abdominal binder Inspection: No normal to inspection Neuro General: patient oriented x3 Extrem General: Yes normal to inspection Psych Appearance: grossly normal Mental Status: mental status grossly normal Speech and movement: Normal speech and movement present Office Procedures EKG Details: Today - read by me, sinus tachycardia, no acute ST or T-wave abnormalities, rate 106, QTC 443 millisecond [id number], Complete Assessment & Plan Assessment & Plan (1) Heart palpitations: Code(s): R00.2 - Palpitations Plan: Reports of heart palpitations like her heart is beating fast. This causes discomfort and anxiety followed by fatigue. Holter monitor done on 01/25/2023 for 3 days showed sinus rhythm with average heart rate 92, heart rate range 73 to 139, rare SVE, 12 beat atrial tach. She seems very anxious and bothered by her fast heartbeats. She could be having longer episodes of atrial tach at times. On last visit she was taken off amlodipine and change to diltiazem to help reduce number of heart palpitations and also help control blood pressure. She stated that it made her heart palpitations worse. At this point she is not taking either medication. EKG done today showing sinus tachycardia, no acute ST or T-wave abnormalities, rate 106. Will have her start on metoprolol tartrate 25 mg b.i.d. Reviewed the benefits of caffeine cessation, stress reduction activities. Plan to call her in 1 week to reassess med effect on palpitations and home blood pressure. (2) Chest pain: Code(s): R07.9 - Chest pain, unspecified Qualifiers: Chest pain type: unspecified Qualified Code(s): R07.9 - Chest pain, unspecified Plan: Prior reports of chest discomfort, like squeezing. She has multiple cardiac risk factors including obesity, smoking, hypertension, hyperlipidemia and diabetes. Echocardiogram done at [facility] on 09/21/2022 shows normal EF, no regional wall motion abnormality. CTA of the coronary arteries done on 12/16/2022 showed moderate to severe study limitations as her heart rate was not well controlled. Test did show Mild calcific plaque seen in the proximal segment of the distal LAD, less than 25% stenosis. No additional definite plaque noted. That day, due to anxiety and shortness of breath she was sent to the ER for further evaluation without acute findings. She continues to report feeling chest discomfort, sharp at times, occurring randomly. Overall sounds at ypical however since she is in need of abdominal surgery for repair of large hernia we have been requested to further evaluate her symptoms. Will order a pharmacological nuclear stress test to evaluate for any ischemia. EKG done today showing sinus tach, rate 106, no acute ST or T-wave abnormalities. Plan to call her with stress test results and complete cardiac clearance at that time. She needs to continue with cardiac risk factor modification discussed. Hemoglobin A1c goal less than 7. [place] blood pressure goal less than 130/85. [place] LDL less than 70. Continue aspirin 81 mg daily. She is not on statin for unclear reason. If no contraindication recommend statin use in this diabetic patient with mild CAD. Reviewed need for smoking cessation, increase physical activity as tolerated, low fat diet. (3) Atrial tachycardia: Code(s): I47.1 - Supraventricular tachycardia Plan: Brief episode seen on Holter monitor (4) Hypertension: Code(s): I10 - Essential (primary) hypertension Qualifiers: Hypertension type: primary hypertension Qualified Code(s): I10 - Essential (primary) hypertension Plan: Well controlled at present. Med change as above (5) Dyslipidemia: Code(s): E78.5 - Hyperlipidemia, unspecified Plan: As above (6) Preop cardiovascular exam: Code(s): Z01.810 - Encounter for preprocedural cardiovascular examination Plan: Preop for incisional hernia repair in August 04 at [facility] with Dr. Spears. Will be starting low-dose metoprolol today for heart palpitations, brief atrial tach and sinus tachycardia. Nuclear stress test pending. Will finalize clearance wants stress test results are known. Orders: Orders NM cardiolite stress test Today I47.1 - Supraventricular tachycardia, R00.2 - Pa lpitations, R07.9 - Chest pain, unspecified, Z01.810 - Encounter for preprocedural cardiovascular examination CA lexiscan stress w [place] Today I47.1 - Supraventricular tachycardia, R00.2 - Palpitations, R07.9 - Chest pain, unspecified, Z01.810 - Encounter for preprocedural cardiovascular examination Medications: New metoprolol tartrate 25 mg PO DAILY 60 tabs 3RF Coding Level of Care Code Est Pt Level 4 (41410) Diagnoses Heart palpitations R00.2 Chest pain, unspecified type R07.9 Chest pain type: unspecified Atrial tachycardia I47.1 Primary hypertension I10 Hypertension type: primary hypertension Dyslipidemia E78.5 Preop cardiovascular exam Z01.810 CPT Codes EKG - CPT: [id number], Complete ([id number]) Time Spent (min) 30
== END 2023-07-25 16:15 | disposition home or self-care (01) ==
PROVIDERS: PCP Physician Assistant; Visit Provider Nurse Practitioner Family
DX: R00.2 Palpitations (principal); R07.9 Chest pain, unspecified; I47.1 Supraventricular tachycardia; I10 Essential (primary) hypertension; E78.5 Hyperlipidemia, unspecified; Z01.810 Encounter for preprocedural cardiovascular examination
CPT/HCPCS: 93010; 99214

== ENCOUNTER → 2023-07-25 15:16 | Outpatient (BNVA) | payer OTHER, SELFPAY | PROVIDERS: PCP Physician Assistant; Visit Provider Nurse Practitioner Family | DX: Z01.810 Encounter for preprocedural cardiovascular examination (principal); R00.2 Palpitations; R07.9 Chest pain, unspecified; I47.10 Supraventricular tachycardia, unspecified; I10 Essential (primary) hypertension; E78.5 Hyperlipidemia, unspecified; Z79.82 Long term (current) use of aspirin | CPT/HCPCS: 93005; 99212 ==

== ENCOUNTER → 2023-07-27 10:16 | Outpatient (REF) | payer OTHER, SELFPAY | LOC: HO.CARD 10:16 | PROVIDERS: PCP Physician Assistant; Visit Provider Nurse Practitioner Family | DX: Z01.810 Encounter for preprocedural cardiovascular examination (principal); R07.9 Chest pain, unspecified; R00.2 Palpitations; I47.10 Supraventricular tachycardia, unspecified | CPT/HCPCS: 78452; 93017; A9500; J0280; J2785 ==

== ENCOUNTER → 2023-07-27 10:26 | Outpatient (BNV) | payer OTHER, SELFPAY | PROVIDERS: PCP Physician Assistant; Visit Provider Nurse Practitioner | DX: R07.9 Chest pain, unspecified (principal) | CPT/HCPCS: 78452; 93016; 93018 ==

== ENCOUNTER 2023-08-03 14:11 | Outpatient (AMB) | payer OTHER, SELFPAY ==
--- NOTE | 2023-08-03 14:34 | A.OFFPC_ITS ---
Vital Signs 3 08/03/23 14:38 Height 5 ft 5 in Weight 213 lb 4 oz BMI 35.5 BP 148/98 H Blood Pressure Location Lt brachial Position Sitting Respiration 17 Pulse 96 Pulse Source Pulse Oximeter Pulse Oximetry (%) 98 Oxygen Delivery Method Room Air Intake Visit Reasons: preop appt & chronic pain Intake Note: Patient is here to follow-up after a visit the emergency department at [facility] 07/25/23. 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 Intern Required: No Accompanied by: Self / Same As Patient Allergies latex [LATEX] Allergy (Mild, Verified 08/03/23 15:00) RASH Iodinated Contrast Media [IV Contrast Dye] Allergy (Verified 08/03/23 15:00) Anaphylaxis amoxicillin Adverse Reaction (Unknown, Verified 08/03/23 15:00) vaginal infection dulaglutide [From Trulicity] Adverse Reaction (Unknown, Verified 08/03/23 15:00) vomitting, nausea semaglutide [From Ozempic] Adverse Reaction (Unknown, Verified 08/03/23 15:00) Chest pain, vomitting Medication List - Last Reconciled 08/03/23 by Cruz Navas PA-C acetaminophen 500 - 1,000 mg (1 - 2 x 500 mg) PO Q6H PRN albuterol sulfate 2.5 mg (3 mL) inhalation Q6H PRN 30 days albuterol sulfate 90 mcg/actuation 1 inh inhalation QID PRN 30 days aspirin 81 mg PO DAILY blood sugar diagnostic (FreeStyle Test strips) testing 3x daily cholecalciferol (vitamin D3) (Vitamin D3) 25 mcg PO DAILY dexamethasone 1 mg PO ONCE dicyclomine 20 mg PO TID PRN 15 days epinephrine (EpiPen 2-Josué) 0.3 mg (0.3 mL) IM ONCE PRN fenofibrate nanocrystallized 145 mg PO DAILY flash glucose scanning reader (FreeStyle Tiff 2 [place]) 1 ea miscellaneous DIRECTED flash glucose sensor (FreeStyle Tiff 2 Sensor kit) DIRECTED EVERY 2 WEEKS fluticasone propion-salmeterol 250-50 mcg/dose (Advair Diskus) 1 ea inhalation BID 30 days insulin glargine (Lantus Solostar U-100 Insulin) 80 units (0.8 mL) subcut DAILY insulin lispro 20 - 30 units subcut TID meclizine 25 mg PO TID PRN 15 days metoprolol tartrate 25 mg PO DAILY miscellaneous medical supply 1 ea miscellaneous DAILY 99 days nitroglycerin 0.4 mg sublingual Q5M PRN 15 days oxycodone 10 mg PO Q8H PRN 7 days pen needle, diabetic (BD Ultra-Fine Macy Pen Needle) USE DIRECTED 4 TIMES DAILY tirzepatide (Mounjaro) 10 mg (0.5 mL) subcut QWEEK Tobacco use date assessed: 08/03/23 Dental Screening Dental Screen Date: 08/03/23 Did you have a dental visit in the last 12 months?: Yes Did you have a dental problem in the last 6 months where you did not have access to dental care?: No Was dental information given to patient?: No HPI preop appt & chronic pain 2 HPI0 Details Patient is a 47-year-old female here today for a ER follow-up visit/ pre op visit.? Patient has a past medical history significant for obesity, type 2 diabetes, tobacco dependency, generalized anxiety disorder, chronic incisional abdominal hernia. Patient was seen at the ER for acute on chronic abdominal pain. While in the ER she was found to have mild leukocytosis that was thought to be reactive as there was no clear source of infection. She has followed up with her extruder operator and got Angie cardiac stress test did not show any evidence of ischemia. She was started on metoprolol. Calcium channel blockers were discontinued. Cardiology gave clearance from Cardiology standpoint. As far as patient's mild leukocytosis, this seems to be a chronic finding even doing back to 2006 in our records. Has been evaluated by Hematology in the past. Otherwise no clear source of infection at this time. There has been some concern over ? Pheochromocytoma. We believe endocrinology will be testing her for this. Does come as the phone 4 mg tablet has been sent in pharmacy. She will reach out to her radio engineering teacher about testing. CHRONIC MEDICAL CONDITIONS--> . Incisional hernia:? Recently has noted enlarging of her an hernia, she feels that the bottom half of her abdomen now hangs even lower. She reports more pain and an itchy sensation all over her abdomen recently. She does report having difficulty with passing stool often having to lean over the counter in order to help move bowels. She is in contact with general surgeon hernia specialist at [facility].? Her case is complicated as she does also need reconstruction of her abdomen including a plastic surgeon. Has been controlling her blood sugars with Endocrinology and has lost weight since last office visit. Has been cutting down her cigarette smoking. Is trying to get her diabetes under control so that she can have incisional hernia repair.? Continues to have moderate to severe pain at times in her abdomen as she feels the hernia stretches her abdominal muscles causing severe pain.? she does use low-dose oxycodone 5 mg on a limited p.r.n. basis.? She does understand the habit-forming nature of this medication and only uses this on a once a day as needed basis.? She anticipates surgery this year to fix her abdominal hernia. Type 2 diabetes:? followed by Endocrinology and started and has been able to manage her blood sugars a bit better. Unfortunately due to her abdominal pain she has not been able to be active or follow a diabetic diet. ? [facility] Medical History Itching Obesity (BMI 30-39.9) Sepsis Diverticulitis of both large and small intestine with perforation and abscess Diverticulitis of large intestine with abscess Morbid obesity with BMI of 50.0-59.9, adult Hypertension Vitamin D deficiency B12 deficiency Diabetic nephropathy associated with type 2 diabetes mellitus Dyslipidemia Hirsutism Diabetes type 2, uncontrolled Surgical History Hx of abdominal surgery Hx of umbilical hernia repair History of ankle surgery Hx of section Family History Father Throat cancer Cirrhosis Mother Diabetes Social History Household Members: None Housing: House Do you presently have visiting nurse or other home services: Yes Alcohol intake: never Patient Tobacco Use Status: Current everyday Tobacco user Tobacco use type: Cigarette Cigarettes Per Day: 5 Years Smoked: 30 e-Cigarette/Vaping Use: Never Used Second Hand Smoke Exposure: Yes Substance Use Type: Marijuana Advance Directives Date on File: 05/05/21 service: No Current occupational status: disabled Cognitive needs: No Hearing needs: No Vision needs: Yes Questionnaire PHQ-9 Over the last 2 weeks, how often have you been bothered by any of the following problems? 1. Little interest or pleasure in doing things: several days 2. Feeling down, depressed, or hopeless: several days 3. Trouble falling or staying asleep, or sleeping too much: several days 4. Feeling tired or having little energy: several days 5. Poor appetite or overeating: several days 6. Feeling bad about yourself - or that you are a failure or have let yourself or your family down: not at all 7. Trouble concentrating on things, such as reading the newspaper or watching television: not at all 8. Moving or speaking so slowly that other people could have noticed. Or the opposite - being so fidgety or restless that you have been moving around a lot more than usual: not at all 9. Thoughts that you would be better off or of hurting yourself in some way: not at all Total score: 5 10040 - PHQ-9 Billing: Yes Source: Developed by Drs. Kahlil Thao, Patito Pradhan, Shine Carias and colleagues, with an educational kathleen from [employer]. Thrive Questionnaire Date Thrive assessed: 08/03/23 I am a: Patient What is your living situation today?: I have a steady place to live Within the past 12 months, did the food you bought not last and you didn't have the money to get more?: Never true Within the past 12 months, did you worry whether your food would run out before you got money to buy more?: Never true Do you have trouble paying for medicines?: No Do you have trouble getting transportation to medical appointments?: No Do you have trouble paying your heating and electricity bill?: No Do you have trouble taking care of your child, family member or friend?: No Do you have trouble with day-to-day activities such as bathing, preparing meals, shopping, managing finances, etc.?: No Are you currently unemployed and looking for a job?: No Are you interested in more education?: No Please select the resources that you would like help with: None Currently or been in a relationship where the following occur: no concerns reported AUDIT C Alcohol Use Questionnaire (AUDIT-C) 1. How often do you have a drink containing alcohol?: Never 3. How often do you have six or more drinks on one occasion?: Never Total Score: 0 Score Reviewed/Action Taken: Yes RUI-7 AMB Questionnaire RUI-7 Date RUI - 7 assessed: 08/03/23 Feeling nervous, anxious, or on edge: 0 = Not at all Not being able to stop or control worryin = Not at all Worrying too much about different things: 0 = Not at all Trouble relaxin = Not at all Being so restless that it is hard to sit still: 0 = Not at all Becoming easily annoyed or irritable: 0 = Not at all Feeling afraid as if something awful might happen: 0 = Not at all Total RUI-7 score (0-4 normal; 5-9 mild; 10-14 moderate; 15-21 severe): 0 Source: Developed by Drs. Kahlil Thao, Patito Pradhan, Shine Carias and colleagues, with an educational kathleen from [employer]. RUI-7 Assessment Billing RUI-7 Assessment Tool: RUI-7 Assessment 04586 Review of Systems Const Denies headache(s) Eyes Denies loss of vision ENT Denies vertigo, Denies dizziness, Denies headache(s) and Denies sore throat Card Denies chest pain, Denies leg edema and Denies lightheadedness Resp Denies cough, Denies hemoptysis and Denies wheezing GI Denies abdominal pain, Denies melena, Denies constipation, Denies diarrhea and Denies vomiting Denies urinary frequency, Denies dysuria and Denies urinary urgency Musc Denies arthralgias, Denies joint swelling, Denies numbness and Denies tingling Neuro Denies Abnormal speech present, Denies behavioral changes, Denies vertigo, Denies dizziness, Denies headache(s), Denies loss of vision, Denies memory loss, Denies numbness and Denies tingling Psych Denies anxiety, Denies behavioral changes, Denies depression, Denies memory loss and Denies panic attacks Abhijit/Lymph Denies easy bleeding and Denies easy bruising Aller/Immun Denies wheezing Physical exam (Primary Care) Vital Signs: Last Vital Signs Pulse 96 08/03/23 14:38 Resp 17 08/03/23 14:38 BP 148/98 H 08/03/23 14:38 Pulse Ox 98 08/03/23 14:38 Oxygen Delivery Method Room Air 08/03/23 14:38 BMI result Body Mass Index 35.5 Tobacco/Smoking Status: Tobacco use Status Tobacco use date assessed 08/03/23 08/03/23 14:36 Patient Tobacco Use Status Current everyday Tobacco 08/03/23 14:34 Tobacco use type Cigarette 08/03/23 14:34 e-Cigarette/Vaping Use Never Used 08/03/23 14:34 PHQ-9: PHQ-9 Score PHQ-9: Total score 5 08/03/23 15:02 Thrive Assessment: Date of Thrive Assessment Date Thrive assessed 08/03/23 08/03/23 14:57 Currently or been in a relationship where the following occur: no concerns reported Const Other: APPEAR SAD AND TEARY EYED TODAY IN OFFICE General: healthy appearing, no acute distress, alert and awake Nutritional Appearance: well nourished Orientation/consciousness: oriented to person, oriented to place and oriented to time HENMT Ears: TM's normal bilaterally General nose exam: Normal nasal mucous membranes and turbinates present Eyes Conjunctivae: conjunctivae normal Sclerae: sclerae normal Pupils: Equal, round and reactive pupils present Neck Neck: Yes no lymphadenopathy and Yes no JVD Thyroid: Thyroid normal Carotids: no bruits Resp Effort & Inspection: normal respiratory effort and not tachypneic Auscultation: no crackles, no rales, no rhonchi and no wheezes Cardio Rate: regular rate Rhythm: regular rhythm Heart sounds: no murmurs and normal S1 and S2 GI Palpation (GI): Soft to palpation, Tenderness to palpation present (GI), no hepatomegaly and no splenomegaly Auscultation: normal bowel sounds Abdomen image: 2 1. LARGE ABDOMINAL FULLNESS Skin General skin exam: no rashes or lesions noted and dry skin Neuro General: oriented to person, oriented to place and oriented to time Cranial nerves: Yes Equal, round and reactive pupils present Speech: No Abnormal speech present Gait exam (Neuro): Normal gait present Motor exam (neuro): no tremor noted Extrem Right upper extremity: full ROM Left upper extremity: full ROM Right lower extremity: full ROM; no edema Left lower extremity: full ROM; no edema Psych Mental Status: mental status grossly normal Speech and movement: Normal speech and movement present Affect: normal affect Attitude: cooperative Thought process: Normal thought process present Results AMB Hemoglobin A1c 2 AMB Hemoglobin A1c 7.8 % Last Edit by RADHA Chen on 08/03/23 14:58 Results Reviewed Results Reviewed: Laboratory Last Values Hgb A1c (Clinic) 7.8 % (4.0-6.0) H 08/03/23 14:16 Assessment and Plan Assessment & Plan (1) Incisional hernia: Code(s): K43.2 - Incisional hernia without obstruction or gangrene Qualifiers: Obstruction and gangrene presence: without obstruction or gangrene Qualified Code(s): K43.2 - Incisional hernia without obstruction or gangrene Plan: Unfortunate recently experienced enlargement in abdominal hernia. Does report pain all over abdomen. Continues to wait for reconstruction surgery her abdomen. At this point I am are trying to manage her pain for now on oxycodone 10 mg Q 8 hours p.r.n until she can get definitive treatment of abdominal hernia Thus far she has gotten cardiology clearance, hyperglycemia has been better controlled. Mild leukocytosis seems to be a chronic finding. She anticipates surgery soon. She is also considering 2nd opinion in [place] hernia specialist. At this time she will reach out to her radio engineering teacher about pheochromocytoma testing. (2) Preop cardiovascular exam: Code(s): Z01.810 - Encounter for preprocedural cardiovascular examination Plan: Patient is medically clear for needed abdominal hernia reconstructive surgery. Believes correcting her hernia would allow her a better quality of life and better management of her chronic diseases. Patient has been cleared by Cardiology. Cardiac stress test was essentially normal. Patient's glycemic control has been better since new diabetic medication. Today's A1c is 7.8 Leukocytosis appears to be a chronic finding, no current active source of infection. (3) Leukocytosis: Code(s): D72.829 - Elevated white blood cell count, unspecified Qualifiers: Leukocytosis type: unspecified Qualified Code(s): D72.829 - Elevated white blood cell count, unspecified Plan: Appears to be a chronic finding dating back to 2006 in our records. No clear source of infection at this current moment. (4) Insulin dependent type 2 diabetes mellitus: Code(s): E11.9 - Type 2 diabetes mellitus without complications; Z79.4 - motion picture photographer (current) use of insulin Plan: Has captured glycemic control with mounjaro injections. Her A1c is much improved. Has lost significant amount of weight. Unfortunately BMI is still above 30. Orders: Orders 2 AMB Hemoglobin A1c 08/03/23 E11.65 - Type 2 diabetes mellitus with hyperglycemia Medications: Refilled 2 oxycodone Partial Fill upon patient request. 10 mg PO Q8H 7 days PRN 21 tabs 0RF pain K43.2 - Incisional hernia without obstruction or gangrene Discontinued 2 dicyclomine Discontinued Reason: Doctor's Order 20 mg PO TID 15 days PRN 45 tabs 0RF abdominal pain G89.29 - Other chronic pain, R10.9 - Unspecified abdominal pain Coding Level of Care Code Est Pt Level 4 (85897) Diagnoses Incisional hernia, without obstruction or gangrene K43.2 Obstruction and gangrene presence: without obstruction or gangrene Preop cardiovascular exam Z01.810 Leukocytosis D72.829 Leukocytosis type: unspecified Insulin dependent type 2 diabetes mellitus E11.9; Z79.4 Additional Codes RUI-7 Assessment Billing - RUI-7 Assessment Tool: RUI-7 Assessment [id number] ([id number])
[2023-08-03 14:38] VITALS: BP 148/98; PULSE 96; RESP 17; O2SAT 98; BMI 35.5
== END 2023-08-03 15:40 | disposition home or self-care (01) ==
PROVIDERS: PCP Physician Assistant; Visit Provider Physician Assistant
DX: E11.65 Type 2 diabetes mellitus with hyperglycemia (principal)
CPT/HCPCS: 83036; 99214

== ENCOUNTER 2023-08-07 13:22 | Outpatient (AMB) | payer OTHER, SELFPAY ==
--- NOTE | 2023-08-07 13:37 | MHC.OFFVIS ---
Intake Vital Signs 08/07/23 13:38 Height 5 ft 5 in Weight 217 lb 13.067 oz BMI 36.2 BP 105/67 Blood Pressure Location Rt brachial Position Sitting Pulse 123 H Intake Visit Reasons: 3 week follow up Intake Note: Patient returns to in office visit today in 3 weeks follow up. CC: Patient states that she is very upset that her procedure was cancelled after she was cleared by cardiology. She continues to have LUQ abdomen, and occasional constipation. 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 Accompanied by: Self / Same As Patient Allergies latex [LATEX] Allergy (Mild, Verified 08/07/23 15:) RASH Iodinated Contrast Media [IV Contrast Dye] Allergy (Verified 08/07/23:) Anaphylaxis amoxicillin Adverse Reaction (Unknown, Verified 08/07/23) vaginal infection dulaglutide [From Trulicity] Adverse Reaction (Unknown, Verified 08/07/23) vomitting, nausea semaglutide [From Ozempic] Adverse Reaction (Unknown, Verified 08/07/23:) Chest pain, vomitting HPI 3 week follow up HPI Details LAST VISIT: Abscess of sigmoid colon Diverticulosis GERD (gastroesophageal reflux disease) Chronic abdominal pain Incisional hernia Plan Patient is here today for follow-up. Reports that she has been doing well. Denies any rectal pain. Denies any discharge. Recommend using stool softeners to help her move bowels better. Patient was encouraged to wear abdominal binder all the times for comfort. Patient will undergo most likely incisional hernia repair that is quite large at [facility]. Appointment will be on this week. Patient will follow-up in the office in the month, sooner on as needed basis. She is agreeable to this plan and verbalizes understanding of instructions. She was given the opportunity to ask questions and all questions answered. ? Thank you for allowing me to participate in her care is Medications New docusate sodium 100 mg PO BEDTIME 90 caps 3RF K59.00 TODAY'S VISIT Patient is here today for follow-up. Patient reports that she has been moving her bowels better. Tried taking Colace, however states that it caused cramping. Patient denies any melena, hematochezia, unintentional weight loss or ribbon like stools. Patient reports that she is moving her bowels, however she will occasionally have to go for 2-3 days without having a bowel movement. Patient denies any abdominal pain or cramping at this time. Recently was seen in the ER at [facility] for abdominal pain. Patient states that she was moving things around in her house and developed severe pain in the lower part of her abdomen. CT scan did not show any acute processes. Scattered colonic diverticula without evidence of acute diverticulitis. Patient had large ventral abdominal wall hernia that contain nonobstructed loops of small bowel, transverse colon and terminal ileum. The cecum was also present within the hernia sac without evidence of strangulation. Patient was in the ER July 20 and July 25 for same pain. Both time patient had CT scan that showed no acute processes that would explain patient's pain. Patient reports that she has been wearing her abdominal binder almost all the time and is feeling better. Patient reports epigastric discomfort with occasional dyspepsia. Patient states that her surgeon at [facility] canceled her surgery. Patient states that she was clear by Cardiology to have the procedure, however for some reason it was canceled. Patient has an appointment in [place] for September for possible procedure. She is unable to go for colonoscopy due to her current situation and part of her large intestine present in a hernia sac. Patient denies any other GI concerning symptoms. Patient reports that she has been coughing in the last few days and will be going to urgent care to get a chest x-ray. Patient denies any fever or chills. [facility] Medical History Itching Obesity (BMI 30-39.9) Sepsis Diverticulitis of both large and small intestine with perforation and abscess Diverticulitis of large intestine with abscess Morbid obesity with BMI of 50.0-59.9, adult Hypertension Vitamin D deficiency B12 deficiency Diabetic nephropathy associated with type 2 diabetes mellitus Dyslipidemia Hirsutism Diabetes type 2, uncontrolled Surgical History Hx of abdominal surgery Hx of umbilical hernia repair History of ankle surgery Hx of section Family History Father Throat cancer Cirrhosis Mother Diabetes Social History Household Members: None Housing: House Do you presently have visiting nurse or other home services: Yes Alcohol intake: never Patient Tobacco Use Status: Current everyday Tobacco user Tobacco use type: Cigarette Cigarettes Per Day: 5 Years Smoked: 30 e-Cigarette/Vaping Use: Never Used Second Hand Smoke Exposure: Yes Substance Use Type: Marijuana Advance Directives Date on File: 05/05/21 service: No Current occupational status: disabled Cognitive needs: No Hearing needs: No Vision needs: Yes Review of Systems Const Denies weight gain and Denies weight loss ENT Reports no additional complaints, Denies dysphagia and Denies odynophagia Card Reports no additional complaints Resp Reports no additional complaints GI Denies abdominal pain, Denies belching, Denies melena, Denies bloating, Denies change in bowel habits, Reports constipation, Denies dysphagia, Denies excessive flatus, Denies dyspepsia, Denies heartburn, Denies diarrhea, Denies loose stools, Denies nausea, Denies odynophagia and Denies vomiting Reports no additional complaints Musc Reports no additional complaints Neuro Reports no additional complaints Psych Reports no additional complaints Endo Reports no additional complaints Physical Exam Vital Signs: Last Vital Signs Pulse 123 H 08/07/23 13:38 BP 105/67 08/07/23 13:38 BMI result Body Mass Index 36.2 Const General: healthy appearing, no acute distress and well developed Nutritional Appearance: obese Orientation/consciousness: patient oriented x3 HEENT Head: Yes normal to inspection, Yes normocephalic and Yes atraumatic Face and sinus: Yes normal facial exam Mouth: Normal oral and palatal mucosa present Throat: Yes posterior oropharynx normal, Yes tonsils normal and Yes uvula midline Eyes General: appearance normal, both eyes and all related structures Neck Neck: Yes normal visual inspection, Yes full ROM and Yes trachea midline Thyroid: Thyroid normal Resp Effort & Inspection: normal respiratory effort, able to speak in complete sentences, Actively coughing, no tracheal deviation and symmetric chest movement Auscultation: clear to auscultation bilaterally Cardio Rate: regular rate Heart sounds: S1 normal heart sound present and S2 normal heart sound present GI Inspection: No distended, Yes obesity and Yes visible herniation Palpation (GI): Soft to palpation, not firm, nontender and No hepatosplenomegaly present Auscultation: normal bowel sounds General: Yes no CVA tenderness Back/Spine/Pelvis Back: no CVA tenderness Skin General skin exam: elasticity normal, turgor normal and dry skin Neuro General: patient oriented x3 Psych Appearance: grossly normal Mental Status: mental status grossly normal Assessment & Plan Assessment & Plan (1) GERD (gastroesophageal reflux disease): Code(s): K21.9 - Gastro-esophageal reflux disease without esophagitis Qualifiers: Esophagitis presence: without esophagitis Qualified Code(s): K21.9 - Gastro-esophageal reflux disease without esophagitis (2) Chronic abdominal pain: Code(s): R10.9 - Unspecified abdominal pain; G89.29 - Other chronic pain (3) Incisional hernia: Code(s): K43.2 - Incisional hernia without obstruction or gangrene Qualifiers: Obstruction and gangrene presence: without obstruction or gangrene Qualified Code(s): K43.2 - Incisional hernia without obstruction or gangrene (4) Constipation: Code(s): K59.00 - Constipation, unspecified Qualifiers: Constipation type: slow transit constipation Qualified Code(s): K59.01 - Slow transit constipation Plan After reviewing results from CT scan at [facility] I spoke to patient about the importance of moving her bowels daily to prevent from obstruction. Patient will start taking MiraLax as she reports that that helped in the past. Patient was also encouraged to increase fluid intake and activity to promote better bowel motility. Patient will be given script for famotidine. She will follow-up with us in 4 months, sooner on as needed basis. Patient will call our office if she will have any GI concerning symptoms. Patient is agreeable to this plan and verbalizes understanding of instructions. She was given the opportunity to ask questions and all questions answered. Thank you for allowing me to participate in her care have Medications: New famotidine 40 mg PO BEDTIME 30 tabs 3RF K21.9 - Gastro-esophageal reflux disease without esophagitis polyethylene glycol 3350 (Miralax) 17 grams PO DAILY 510 grams 2RF Coding Level of Care Code Est Pt Level 4 (07443) Diagnoses Gastroesophageal reflux disease without esophagitis K21.9 Esophagitis presence: without esophagitis Chronic abdominal pain R10.9; G89.29 Incisional hernia, without obstruction or gangrene K43.2 Obstruction and gangrene presence: without obstruction or gangrene Slow transit constipation K59.01 Constipation type: slow transit constipation Time Spent (min) 40 Comment 25 minutes spent with patient and additional 15 minutes spent
[2023-08-07 13:38] VITALS: BP 105/67; PULSE 123; BMI 36.2
== END 2023-08-07 14:19 | disposition home or self-care (01) ==
PROVIDERS: PCP Physician Assistant; Visit Provider Nurse Practitioner Family
DX: K21.9 Gastro-esophageal reflux disease without esophagitis (principal); R10.9 Unspecified abdominal pain; G89.29 Other chronic pain; K43.2 Incisional hernia without obstruction or gangrene; K59.01 Slow transit constipation
CPT/HCPCS: 99214

== ENCOUNTER → 2023-08-07 13:22 | Outpatient (BNVA) | payer OTHER, SELFPAY | PROVIDERS: PCP Physician Assistant; Visit Provider Nurse Practitioner Family | DX: K21.9 Gastro-esophageal reflux disease without esophagitis (principal); K43.2 Incisional hernia without obstruction or gangrene; K59.01 Slow transit constipation; R10.9 Unspecified abdominal pain; G89.29 Other chronic pain | CPT/HCPCS: 99212 ==

== ENCOUNTER 2023-08-07 15:20 | Outpatient (AMB) | payer OTHER, SELFPAY ==
--- NOTE | 2023-08-07 15:23 | AM.OFFWIN_ITS ---
Intake Vital Signs 08/07/23 15:24 Height 5 ft 5 in BP 128/74 Blood Pressure Location Rt brachial Position Sitting Pulse 117 H Pulse Source Pulse Oximeter Temp 98.1 F Temp Source Oral Pulse Oximetry (%) 99 Intake Visit Reasons: EP cough phlem chills Intake Note: pt is here for co cough with phlem, chills and headache Patient Tobacco Use Status: Current everyday Tobacco user Allergies latex [LATEX] Allergy (Mild, Verified 08/07/23 15:) RASH Iodinated Contrast Media [IV Contrast Dye] Allergy (Verified 08/07/23 15:) Anaphylaxis amoxicillin Adverse Reaction (Unknown, Verified 08/07/23 15:) vaginal infection dulaglutide [From Trulicity] Adverse Reaction (Unknown, Verified 08/07/23:) vomitting, nausea semaglutide [From Ozempic] Adverse Reaction (Unknown, Verified 08/07/23:) Chest pain, vomitting Do you need a note to return to daycare/school/sports/work: Yes HPI HPI Comments History of Present Illness Details Patient presents to the walkin for complaints of cough reports cough for last 2 days. sore throat only with coughing. Chills but no fevers. denies headache, fatigue, shortness of breath, palpitations. Patient has known hernia, states cough makes the hernia pain worse. States in the past php website developer would prescribe her cough syrup with codeine, this is what helps with her cough She is on chronic opioids but has not been taking the oxycodone for the cough as it is prescribed for something else States she has been in contact with known covid and RSV positive persons Trying to push fluids but is aware that she is not drinking enough States he HR is usually fast when she is sick, denies palpitations/CP PFSH Medical History Itching Obesity (BMI 30-39.9) Sepsis Diverticulitis of both large and small intestine with perforation and abscess Diverticulitis of large intestine with abscess Morbid obesity with BMI of 50.0-59.9, adult Hypertension Vitamin D deficiency B12 deficiency Diabetic nephropathy associated with type 2 diabetes mellitus Dyslipidemia Hirsutism Diabetes type 2, uncontrolled Surgical History Hx of abdominal surgery Hx of umbilical hernia repair History of ankle surgery Hx of section Family History Father Throat cancer Cirrhosis Mother Diabetes Social History Household Members: None Housing: House Do you presently have visiting nurse or other home services: Yes Alcohol intake: never Patient Tobacco Use Status: Current everyday Tobacco user Tobacco use type: Cigarette Cigarettes Per Day: 5 Years Smoked: 30 e-Cigarette/Vaping Use: Never Used Second Hand Smoke Exposure: Yes Substance Use Type: Marijuana Advance Directives Date on File: 05/05/21 service: No Current occupational status: disabled Cognitive needs: No Hearing needs: No Vision needs: Yes Review of Systems Const All systems reviewed & are unremarkable except as noted in HPI and below Physical Exam Vital Signs: Last Vital Signs Temp 98.1 F 08/07/23 15:24 Pulse 117 H 08/07/23 15:24 BP 128/74 08/07/23 15:24 Pulse Ox 99 08/07/23 15:24 General: awake, alert, oriented. Answers questions appropriately. Fully engaged in examination. Skin: warm, dry, intact HEENT: TMs intact bilaterally, no redness. Posterior pharynx without erythema or exudate. Sclera without icterus or injection. Cardiac: External chest normal in appearance. Respiratory: +cough. LSCTAB. Abdomen: without gross distension. Neurological: Oriented to person, place, time and situation. Thought process intact. Psychiatric: Appropriate mood and affect. Good judgment and insight. Assessment & Plan Assessment & Plan (1) URI (upper respiratory infection): Code(s): J06.9 - Acute upper respiratory infection, unspecified Plan URI, no abx warranted. Most likely viral given known exposure to covid and rsv positive persons. codeine-guaifenesin 10-100 mg/5 mL po q6h as needed for cough. patient advised on cautions for use. aware not to take with other sedating medications including her prescribed oxycodone Rest, drink plenty of fluids, tylenol or motrin as needed. Follow up with pcp or in clinic for any new or worsening symptoms. Go to ER for shortness of breath, chest pain, palpitations, weakness, dizziness. Medications: New codeine-guaifenesin 10-100 mg/[address] while taking this medication. do not take with other opioid medications. 5 mL PO Q6H PRN 120 mL 0RF allergy symptoms Coding Level of Care Code Est Pt Level 4 (32554) Diagnoses URI (upper respiratory infection) J06.9
[2023-08-07 15:24] VITALS: BP 128/74; PULSE 117; TEMP 36.7; O2SAT 99
== END 2023-08-07 16:18 | disposition home or self-care (01) ==
PROVIDERS: PCP Physician Assistant; Visit Provider Registered Nurse Emergency
DX: J06.9 Acute upper respiratory infection, unspecified (principal)
CPT/HCPCS: 99214

== ENCOUNTER 2023-09-11 13:50 | Emergency (ER) | payer OTHER, SELFPAY ==
--- NOTE | ~2023-09-11 | CT_ITS ---
EXAMINATION: CT ABDOMEN AND PELVIS WITHOUT CONTRAST CLINICAL INFORMATION: Generalized abdominal pain. COMPARISON: CT abdomen/pelvis 01/01/2022. TECHNIQUE: Multidetector volumetric imaging was performed from the superior aspect of the liver through the pubic symphysis. Sagittal and coronal reformatted images were obtained on the technologist's workstation. This CT examination was performed using dose optimization techniques as appropriate, variously including the following: *Automated exposure control *Adjustment of mA and/or kV according to patient size (this includes techniques or standardized protocols for targeted exams where dose is matched to indication/reason for exam; i.e. extremities or head) *Use of iterative reconstruction technique DLP: 604 mGy-cm FINDINGS: LUNG BASES: The visualized lung bases are unremarkable. LIVER, GALLBLADDER, AND BILIARY TREE: The liver is enlarged measuring 22.4 cm craniocaudally and demonstrates decreased attenuation suggestive of hepatic steatosis. No discrete focal liver lesions in this limited noncontrast examination. No calcified gallbladder calculi. No significant pericholecystic inflammatory changes to suspect acute cholecystitis. No biliary ductal dilatation. PANCREAS: Unremarkable. SPLEEN: Unremarkable. ADRENAL GLANDS: Stable mild asymmetric enlargement of the left adrenal gland. KIDNEYS AND URETERS: The kidneys are normal in size, shape, and attenuation. No hydronephrosis, hydroureter, or calculi seen. No perinephric stranding. BLADDER: Unremarkable. GASTROINTESTINAL TRACT: The stomach and the small bowel are nondilated. Normal appendix. Mild colonic diverticulosis without significant pericolonic inflammatory changes. Rectosigmoid surgical anastomosis is again noted. No evidence of bowel obstruction. ABDOMINAL WALL: Large anterior abdominal wall hernia containing nonobstructive loops of small and large bowel, increased in size with sac measuring approximately 20 cm (3:62) previously 11 cm. LYMPH NODES: Slightly increased size and number of retroperitoneal lymph nodes which are however still within normal size criteria measuring up to 0.9 cm in short axis and with a nonaggressive appearing morphology. VASCULAR: Moderate atherosclerotic disease. Normal caliber abdominal aorta. PELVIC VISCERA: Unremarkable. OSSEOUS STRUCTURES: No acute or aggressive appearing osseous findings. Degenerative changes of the spine. CT/CT abdomen pelvis wo IV con IMPRESSION: 1. Large anterior abdominal wall hernia containing nonobstructive loops of small and large bowel, increased in size since 01/01/2022. 2. Hepatomegaly and hepatic steatosis. 3. Diverticulosis but no evidence of acute diverticulitis. 4. Slightly increased size and number of retroperitoneal lymph nodes, nonspecific and most likely reactive. Recommend attention on follow-up in future examinations.
--- NOTE | 2023-09-11 13:51 | ECG_ITS ---
Test Reason : CHEST PAIN Blood Pressure : / mmHG Vent. Rate : 114 BPM Atrial Rate : 114 BPM P-R Int : 124 ms QRS Dur : 074 ms QT Int : 322 ms P-R-T Axes : 059 017 012 degrees QTc Int : 443 ms Sinus tachycardia Possible Left atrial enlargement Borderline ECG When compared with ECG of 07-JUL-2021 11:35, No significant change was found Referred By: Generic ED Physician Electronically Signed By:ISAC LAMBERT MD
--- NOTE | 2023-09-11 14:28 | ED_ITS ---
HPI - Chest Pain General Chief Complaint: Nausea/Vomiting/Diarrhea Stated Complaint: Chest pain/Blood in urine/vomiting Time Seen by Provider: 09/11/23 19:38 History of Present Illness HPI narrative: 48 y/o F patient; PMH T2DM, GERD, obesity, RUI, asthma, hernia; presents from home reporting three days of hematuria/dark urine, nausea/vomiting, and generalized abdominal pain. Also endorses non-productive cough, generalized headache, fever/chills. The patient states she recently stopped taking Mounjaro after 1 year, but started it again on Monday (09/09/2023) when she noticed her sugar levels were elevated consistently. She otherwise denies: diarrhea, chest pain, difficulty breathing. Related Data Home Medications Medication Instructions Recorded Confirmed insulin lispro 100 unit/mL 20 - 30 unit subcut TID 10/06/22 08/03/23 subcutaneous pen amlodipine 5 mg tablet 5 mg PO DAILY 08/07/23 Previous Rx's Medication Instructions Recorded acetaminophen 500 mg tablet 500 - 1,000 mg (1 - 2 x 500 mg) PO 07/06/21 Q6H PRN pain #60 tabs cholecalciferol (vitamin D3) 25 25 mcg PO DAILY #90 tabs 07/06/21 mcg (1,000 unit) tablet (Vitamin D3) epinephrine 0.3 mg/0.3 mL 0.3 mg (0.3 mL) IM ONCE PRN 01/01/22 injection, auto-injector (EpiPen anaphylaxis #2 ea 2-Josué) albuterol sulfate 2.5 mg/3 mL 2.5 mg (3 mL) inhalation Q6H PRN 01/20/22 (0.083 %) solution for nebulization shortness of breath or wheezing 30 days #360 mL albuterol sulfate 90 mcg/actuation 1 inh inhalation QID PRN shortness 01/20/22 aerosol inhaler of breath or wheezing 30 days #8.5 grams miscellaneous medical supply 1 ea miscellaneous DAILY 99 days 01/25/22 #1 ea flash glucose scanning reader 1 ea miscellaneous DIRECTED #1 04/12/22 (FreeStyle Tiff 2 Chandler) ea nitroglycerin 0.4 mg sublingual 0.4 mg sublingual Q5M PRN chest 09/28/22 tablet pain 15 days #30 tabs insulin glargine 100 unit/mL (3 80 unit (0.8 mL) subcut DAILY #30 10/27/22 mL) subcutaneous pen (Lantus mL Solostar U-100 Insulin) pen needle, diabetic 32 gauge x ##100 11/18/22 (BD Ultra-Fine Macy Pen Needle) fluticasone 250 mcg-salmeterol 50 1 ea inhalation BID 30 days #60 ea 03/15/23 mcg/dose blistr powdr for inhalation (Advair Diskus) blood sugar diagnostic (FreeStyle #100 ea 03/20/23 Test strips) aspirin 81 mg tablet,delayed 81 mg PO DAILY #30 tabs 03/24/23 release fenofibrate nanocrystallized 145 145 mg PO DAILY #90 tabs 04/25/23 mg tablet flash glucose sensor (FreeStyle #2 kits 05/02/23 Tiff 2 Sensor kit) tirzepatide 10 mg/0.5 mL 10 mg (0.5 mL) subcut QWEEK #2 mL 05/24/23 subcutaneous pen injector (Tina) meclizine 25 mg tablet 25 mg PO TID PRN dizziness 15 days 07/06/23 #45 tabs dexamethasone 1 mg tablet 1 mg PO ONCE #1 tab 07/20/23 metoprolol tartrate 25 mg tablet 25 mg PO DAILY #60 tabs 07/25/23 codeine 10 mg-guaifenesin 100 mg/5 5 ml PO Q6H PRN allergy symptoms 08/07/23 mL oral liquid #120 mL famotidine 40 mg tablet 40 mg PO BEDTIME #30 tabs 08/07/23 polyethylene glycol 3350 17 17 g PO DAILY #510 grams 08/07/23 gram/dose oral powder (Miralax) oxycodone 10 mg tablet 10 mg PO Q8H PRN pain 7 days #21 09/04/23 tabs cefuroxime axetil 500 mg tablet 500 mg PO Q12H #20 tabs 09/11/23 Allergies Allergy/AdvReac Type Severity Reaction Status Date / Time latex [LATEX] Allergy Mild RASH Verified 09/11/23 14:29 Iodinated Contrast Media Allergy Anaphylaxis Verified 09/11/23 14:29 [IV Contrast Dye] amoxicillin AdvReac Unknown vaginal Verified 09/11/23 14:29 infection dulaglutide [From Trulicity] AdvReac Unknown vomitting, Verified 09/11/23 14:29 nausea semaglutide [From Ozempic] AdvReac Unknown Chest Verified 09/11/23 14:29 pain, vomitting Review of Systems 2 Review of Systems: Yes all other systems are reviewed and are negative PMFSH Past Medical History Attestation statement: The following information was validated with the patient. Source: old records reviewed Medical History Itching Obesity (BMI 30-39.9) Sepsis Diverticulitis of both large and small intestine with perforation and abscess Diverticulitis of large intestine with abscess Morbid obesity with BMI of 50.0-59.9, adult Hypertension Vitamin D deficiency B12 deficiency Diabetic nephropathy associated with type 2 diabetes mellitus Dyslipidemia Hirsutism Diabetes type 2, uncontrolled Surgical History Hx of abdominal surgery Hx of umbilical hernia repair History of ankle surgery Hx of section Family History Family History Father Throat cancer Cirrhosis Mother Diabetes Social History Social History Household Members: None Housing: House Do you presently have visiting nurse or other home services: Yes Alcohol intake: former Patient Tobacco Use Status: Current everyday Tobacco user Tobacco use type: Cigarette Cigarettes Per Day: 5 Years Smoked: 30 Smoked in Last 30 Days: Yes e-Cigarette/Vaping Use: Never Used Second Hand Smoke Exposure: Yes Use of substances other than those prescribed or required for medical reasons: Yes Substance Use Type: Marijuana Substance Use Frequency: Weekly Advance Directives: Yes Advance Directives on File: Yes Advance Directives Date on File: 05/05/21 Patient : No service: No Current occupational status: disabled Cognitive needs: No Hearing needs: No Vision needs: Yes Physical Exam 2 Vital Signs: Vital Signs: Last Vital Signs Temp 98.4 F 09/11/23 20:31 Pulse 112 H 09/11/23 20:31 Resp 16 09/11/23 20:31 BP 140/89 H 09/11/23 20:31 Pulse Ox 97 09/11/23 20:31 O2 Del Method Room Air 09/11/23 20:31 BMI result Body Mass Index 35.3 Patient is afebrile, tachycardic, mildly hypertensive. Const: General: cooperative and comfortable HEENT: Head: Yes atraumatic Eyes: General: appearance normal, both eyes and all related structures Neck: Neck: Yes normal visual inspection, Yes full ROM, Yes supple and No tender Chest: Chest palpation & inspection: normal inspection of the chest and normal palpation of entire chest wall Resp: Effort & Inspection: normal respiratory effort, able to speak in complete sentences, Actively coughing and no respiratory distress A uscultation: clear to auscultation bilaterally Cardio: Rate: tachycardic Rhythm: regular rhythm Peripheral pulses: P eripheral pulses 2+ throughout GI: Other: Umbilical incision with large incisional hernia noted Palpation (GI): Soft to palpation, Tenderness to palpation present (GI), no guarding and not rigid Auscultation: normal bowel sounds Course Course Course Narrative: RME: 48 year-old F w/ PMHx DM, Vit D, HTN, HLD, presenting to the ED c/o kidney pain & hematuria/dark urine x3 days, N/V, inability to tolerate PO, chest tightness & generalized weakness, lightheadedness, chills & subj fever EKG, Labs, Upreg, viral testing, orthostatics ordered Full HPI, ROS and PE to be performed by primary ED provider. Reevaluation(s) Reevaluation #1: Care of patient assumed from triage provider. Work up reviewed. Added UA. Added CT Abdomen/Pelvis WO Contrast as patient reports anaphylaxis to contrast. Will provide 1L IVF, Zofran, and Tylenol. UA with evidence of 3+ blood, positive nitrites, large LE, >20 RBC, >50WBC, 4+ bacteria. Will plan to treat with Ceftriaxone 1g IV pending CT imaging with concern for possible pyelonephritis. Will obtain lactic acid and blood cultures. Patient meeting criteria for SIRS due to WBC, HR, and source of infection. No evidence of organ dysfunction. Plan: Transition care to oncoming provider Condition: Stable Reevaluation #2: UTI with SIRS but no severe sepsis or septic shock, normal lactic acid, pending blood cultures, patient received ceftriaxone in the ED IV fluids heart rate has improved, CT is showing no obstructive uropathy or suspicion for pyelonephritis large ventral hernia containing nonobstructive bowel that patient is working with a surgeon at [place] for surgical intervention. Patient had normal bowel movement yesterday and passing flatus. Will start the patient on cefuroxime and patient was encouraged to drink plenty of fluids and follow-up with her surgeon. Time: 23:26 Medications Administered Discontinued Medications Generic Name Dose Route Start Last Admin Trade Name Freq PRN Reason Stop Dose Admin Acetaminophen 975 mg 09/11/23 20:45 09/11/23 21:12 Acetaminophen 325 Mg Tablet PO 09/11/23 20:46 975 mg ONCE ONE Administration Sodium Chloride 1,000 mls @ 999 mls/hr 09/11/23 20:45 09/11/23 21:51 Ns IV 09/11/23 21:45 999 mls/hr .Q1H1M TEMO Administration Ceftriaxone Sodium 1 gm/ 50 mls @ 100 mls/hr 09/11/23 21:57 09/11/23 22:45 Sodium Chloride IV 09/11/23 22:26 100 mls/hr ONCE ONE Administration Ondansetron HCl 4 mg 09/11/23 20:45 09/11/23 21:12 Ondansetron Hcl 4 Mg/2 Ml Vial IVPUSH 09/11/23 20:46 4 mg ONCE ONE Administration Medical Decision Making Lab Data 09/11/23 14:52 09/11/23 14:52 Labs: Lab Results 09/11/23 09/11/23 09/11/23 Range/Units 14:51 14:52 20:35 WBC 13.3 H (4.8-10.8) X10*3/uL RBC 5.26 (4.20-5.50) X10*6/uL Hgb 13.2 (12.0-16.0) g/dl Hct 39.2 (37.0-47.0) % MCV 74.5 L (80.0-98.0) fL MCH 25.1 L (27.0-33.0) pg MCHC 33.7 (31.0-35.0) g/dl RDW 14.4 (11.0-16.0) % Plt Count 370 D (160-400) X10*3/uL MPV 11.7 (9.4-12.3) fL Immature Gran % (Auto) 0.4 (0.0-0.4) % Neut % (Auto) 71.6 (45-73) % Lymph % (Auto) 22.5 (20-40) % [place] % (Auto) 4.0 (2-11) % Eos % (Auto) 1.1 (0-4) % Baso % (Auto) 0.4 (0-2) % Lymph # (Auto) 3.0 (1.2-4.9) X10*3/uL [place] # (Auto) 0.5 (0.1-1.2) X10*3/uL Eos # (Auto) 0.1 (0.0-0.4) X10*3/uL Baso # (Auto) 0.1 (0.0-0.2) X10*3/uL Abs Immat Gran (auto) 0.05 H (0.00-0.03) X10*3/uL Absolute Neuts (auto) 9.5 H (2.0-8.3) x10*3/uL Absolute Nucleated RBC 0.000 (0.0-0.012) X10*3/uL Nucleated RBC % (auto) 0.0 (0.0-0.2) /100WBC Sodium 138 (135-145) mmol/L Potassium 4.1 (3.3-5.1) mmol/L Chloride 101 (96-108) mmol/L Carbon Dioxide 26 (22-29) mmol/L Anion Gap 15 (12-20) BUN 10 (9-16) mg/dL Creatinine 0.94 (0.5-1.4) mg/dL Estim Creat Clear Calc 84.8 Estimated GFR > 60 Random Glucose 193 H (60-115) mg/dL Lactic Acid (0.5-2.0) mmol/L Calcium 10.0 D (8.4-10.2) mg/dL Magnesium 2.3 (1.6-2.6) mg/dL Total Bilirubin 0.7 (0.0-1.0) mg/dL Direct Bilirubin 0.2 (0.0-0.5) mg/dL AST 23 (5-31) U/L ALT 18 (0-31) U/L Alkaline Phosphatase 117 (39-117) U/L Total Creatine Kinase 65 (26-140) U/L Troponin I High Sens < 2.7 (<3.5-17.0) ng/L Total Protein 8.7 H (6.5-8.0) g/dL Albumin 3.8 (3.5-5.0) g/dL Lipase 22 (8-78) U/L Urine Color Yellow Urine Appearance Turbid Urine pH 5.5 (5.0-9.0) Ur Specific [place] 1.020 (1.005-1.025) Urine Protein 100 (2+) H (Neg-Trace) mg/dL Urine Glucose (UA) Negative (Negative) mg/dL Urine Ketones Negative (Negative) mg/dL Urine Blood Large (3+) H (Negative) Urine Nitrite Positive H (Negative) Ur Leukocyte Esterase Large (3+) H (Negative) Urine RBC >20 H (0-2) /HPF Urine WBC >50 H (0-5) /HPF Ur Squamous Epith Cells 6-10 (0-2) /HPF Urine Bacteria 4+ (None Seen) Hyaline Casts 0-2 (0-2) /LPF Urine Test NEGATIVE (NEGATIVE) Influenza Type A (PCR) NEGATIVE (Negative) Influenza Type B (PCR) NEGATIVE (Negative) RSV RNA Qual (PCR) NEGATIVE (Negative) SARS-CoV-2 RNA (RT-PCR) NEGATIVE (Negative) 09/11/23 Range/Units 22:39 WBC (4.8-10.8) X10*3/uL RBC (4.20-5.50) X10*6/uL Hgb (12.0-16.0) g/dl Hct (37.0-47.0) % MCV (80.0-98.0) fL MCH (27.0-33.0) pg MCHC (31.0-35.0) g/dl RDW (11.0-16.0) % Plt Count (160-400) X10*3/uL MPV (9.4-12.3) fL Immature Gran % (Auto) (0.0-0.4) % Neut % (Auto) (45-73) % Lymph % (Auto) (20-40) % [place] % (Auto) (2-11) % Eos % (Auto) (0-4) % Baso % (Auto) (0-2) % Lymph # (Auto) (1.2-4.9) X10*3/uL [place] # (Auto) (0.1-1.2) X10*3/uL Eos # (Auto) (0.0-0.4) X10*3/uL Baso # (Auto) (0.0-0.2) X10*3/uL Abs Immat Gran (auto) (0.00-0.03) X10*3/uL Absolute Neuts (auto) (2.0-8.3) x10*3/uL Absolute Nucleated RBC (0.0-0.012) X10*3/uL Nucleated RBC % (auto) (0.0-0.2) /100WBC Sodium (135-145) mmol/L Potassium (3.3-5.1) mmol/L Chloride (96-108) mmol/L Carbon Dioxide (22-29) mmol/L Anion Gap (12-20) BUN (9-16) mg/dL Creatinine (0.5-1.4) mg/dL Estim Creat Clear Calc Estimated GFR Random Glucose (60-115) mg/dL Lactic Acid 0.9 (0.5-2.0) mmol/L Calcium (8.4-10.2) mg/dL Magnesium (1.6-2.6) mg/dL Total Bilirubin (0.0-1.0) mg/dL Direct Bilirubin (0.0-0.5) mg/dL AST (5-31) U/L ALT (0-31) U/L Alkaline Phosphatase (39-117) U/L Total Creatine Kinase (26-140) U/L Troponin I High Sens (<3.5-17.0) ng/L Total Protein (6.5-8.0) g/dL Albumin (3.5-5.0) g/dL Lipase (8-78) U/L Urine Color Urine Appearance Urine pH (5.0-9.0) Ur Specific [place] (1.005-1.025) Urine Protein (Neg-Trace) mg/dL Urine Glucose (UA) (Negative) mg/dL Urine Ketones (Negative) mg/dL Urine Blood (Negative) Urine Nitrite (Negative) Ur Leukocyte Esterase (Negative) Urine RBC (0-2) /HPF Urine WBC (0-5) /HPF Ur Squamous Epith Cells (0-2) /HPF Urine Bacteria (None Seen) Hyaline Casts (0-2) /LPF Urine Test (NEGATIVE) Influenza Type A (PCR) (Negative) Influenza Type B (PCR) (Negative) RSV RNA Qual (PCR) (Negative) SARS-CoV-2 RNA (RT-PCR) (Negative) Discharge Plan Discharge Clinical Impression: Cystitis, Abdominal pain, Abdominal wall hernia Patient Disposition: Home, Self-Care Instructions: Urinary Tract Infection in Women (DC) Prescriptions: New cefuroxime axetil 500 mg tablet 500 mg PO Q12H Qty: 20 0RF No Action albuterol sulfate 90 mcg/actuation HFA aerosol inhaler 1 inh inhalation QID PRN (Reason: shortness of breath or wheezing) 30 Days Qty: 8.5 1RF albuterol sulfate 2.5 mg /3 mL (0.083 %) solution for nebulization 2.5 mg inhalation Q6H PRN (Reason: shortness of breath or wheezing) 30 Days Qty: 360 3RF miscellaneous medical supply Misc 1 ea miscellaneous DAILY 99 Days Qty: 1 0RF FreeStyle Tiff 2 Chandler Misc 1 ea miscellaneous DIRECTED Qty: 1 0RF (DME) pen needle, diabetic [BD Ultra-Fine Macy Pen Needle] 32 gauge x 5/32 needle See Rx Instructions .ROUTE .COMPLEX Qty: 100 0RF Dose Instruction: USE DIRECTED 4 TIMES DAILY Rx Instructions: USE DIRECTED 4 TIMES DAILY (DME) FreeStyle Test Strip See Rx Instructions .ROUTE DAILY Qty: 100 3RF Rx Instructions: testing 3x daily aspirin 81 mg tablet,delayed release (DR/EC) 81 mg PO DAILY Qty: 30 2RF fenofibrate nanocrystallized 145 mg tablet 145 mg PO DAILY Qty: 90 2RF (DME) FreeStyle Tiff 2 Sensor Kit See Rx Instructions .ROUTE .COMPLEX Qty: 2 11RF Dose Instruction: DIRECTED EVERY 2 WEEKS Rx Instructions: DIRECTED EVERY 2 WEEKS Mounjaro 10 mg/0.5 mL pen injector 10 mg subcut QWEEK Qty: 2 5RF dexamethasone 1 mg tablet 1 mg PO ONCE Qty: 1 0RF oxycodone 10 mg tablet 10 mg PO Q8H PRN (Reason: pain) 7 Days Qty: 21 0RF Rx Instructions: Partial Fill upon patient request. epinephrine [EpiPen 2-Josué] 0.3 mg/0.3 mL auto-injector 0.3 mg IM ONCE PRN (Reason: anaphylaxis) Qty: 2 2RF Rx Instructions: Anaphylaxis to shellfish cholecalciferol (vitamin D3) [Vitamin D3] 25 mcg (1,000 unit) tablet 25 mcg PO DAILY Qty: 90 0RF Hold Instructions: Doctor's Order acetaminophen 500 mg tablet 500 - 1,000 mg PO Q6H PRN (Reason: pain) Qty: 60 0RF nitroglycerin 0.4 mg tablet, sublingual 0.4 mg sublingual Q5M PRN (Reason: chest pain) 15 Days Qty: 30 0RF Rx Instructions: do not exceed 3 doses per episode fluticasone propion-salmeterol [Advair Diskus] 250-50 mcg/dose blister with device 1 ea inhalation BID 30 Days Qty: 60 3RF meclizine 25 mg tablet 25 mg PO TID PRN (Reason: dizziness) 15 Days Qty: 45 0RF amlodipine 5 mg tablet 5 mg PO DAILY codeine-guaifenesin 10-100 mg/5 mL liquid 5 ml PO Q6H PRN (Reason: allergy symptoms) Qty: 120 0RF Rx Instructions: no driving while taking this medication. do not take with other opioid medications. insulin lispro 100 unit/mL insulin pen 20 - 30 unit subcut TID insulin glargine [Lantus Solostar U-100 Insulin] 100 unit/mL (3 mL) insulin pen 80 unit subcut DAILY Qty: 30 5RF polyethylene glycol 3350 [Miralax] 17 gram/dose powder 17 g PO DAILY Qty: 510 2RF famotidine 40 mg tablet 40 mg PO BEDTIME Qty: 30 3RF metoprolol tartrate 25 mg tablet 25 mg PO DAILY Qty: 60 3RF Referrals: Cruz Navas PA-C [Primary Care Provider] -
[2023-09-11 14:29] VITALS: BP 143/94; PULSE 114; RESP 20; TEMP 36.3; O2SAT 98; BMI 35.3
[2023-09-11 14:59] LABS: MANUAL DIFF FLAG NO
[2023-09-11 15:04] LABS: UPreg QC Valid YES; Urine Pregnancy NEGATIVE (NEGATIVE)
[2023-09-11 15:09] LABS: Basophils Absolute Auto 0.1 X10*3/uL (0.0-0.2); Basophils Percent Auto 0.4 % (0-2); Eosinophils Absolute Auto 0.1 X10*3/uL (0.0-0.4); Eosinophils Percent Auto 1.1 % (0-4); Hematocrit 39.2 % (37.0-47.0); Hemoglobin 13.2 g/dl (12.0-16.0); Imm Gran Abs Auto 0.05 X10*3/uL (0.00-0.03); Imm Gran Pct Auto 0.4 % (0.0-0.4); Lymphocytes Percent Auto 22.5 % (20-40); Mean Corpuscular HGB Conc 33.7 g/dl (31.0-35.0); Mean Corpuscular Hemoglobin 25.1 pg (27.0-33.0); Mean Corpuscular Volume 74.5 fL (80.0-98.0); Mean Platelet Volume 11.7 fL (9.4-12.3); Monocytes Absolute Auto 0.5 X10*3/uL (0.1-1.2); Neutrophils Absolute Auto 9.5 x10*3/uL (2.0-8.3); Neutrophils Percent Auto 71.6 % (45-73); Platelet Count 370 X10*3/uL (160-400); Red Blood Count 5.26 X10*6/uL (4.20-5.50); Red Cell Distribution Width 14.4 % (11.0-16.0); White Blood Count 13.3 X10*3/uL (4.8-10.8)
[2023-09-11 15:21] LABS: Alanine Aminotransferase 18 U/L (0-31); Albumin Level 3.8 g/dL (3.5-5.0); Alkaline Phosphatase 117 U/L (39-117); Anion Gap 15 (12-20); Aspartate Amino Transferase 23 U/L (5-31); Bilirubin Direct 0.2 mg/dL (0.0-0.5); Bilirubin Total 0.7 mg/dL (0.0-1.0); Blood Urea Nitrogen 10 mg/dL (9-16); Carbon Dioxide 26 mmol/L (22-29); Chloride 101 mmol/L (96-108); Creatinine Clr Calc Pharmacy 84.8; Estimated Glomerular Filt Rate > 60; Glucose Random 193 mg/dL (60-115); Lipase 22 U/L (8-78); Magnesium 2.3 mg/dL (1.6-2.6); Potassium 4.1 mmol/L (3.3-5.1); Sodium 138 mmol/L (135-145); Total Protein 8.7 g/dL (6.5-8.0)
[2023-09-11 15:31] LABS: Troponin-I High Sensitivity < 2.7 ng/L (<3.5-17.0)
[2023-09-11 15:46] LABS: Influenza A PCR NEGATIVE (Negative); Influenza B PCR NEGATIVE (Negative); Resp Syncy Virus RNA Qual PCR NEGATIVE (Negative); SARS COV2 PCR INHOUSE NEGATIVE (Negative)
[2023-09-11 20:04] VITALS: BP 140/89; BP 140/94; PULSE 112; PULSE 115
[2023-09-11 20:06] VITALS: BP 143/91; PULSE 120
[2023-09-11 20:31] VITALS: BP 140/89; PULSE 112; RESP 16; TEMP 36.9; O2SAT 97
[2023-09-11 20:48] LABS: Appearance Urine Turbid; Color Urine Yellow; Glucose Urine UA Negative (Negative); Leukocyte Esterase Urine Large (3+) (Negative); Nitrite Urine Positive (Negative); PH 5.5 (5.0-9.0); UMIC TRIGGER UACC YES; Urine Blood Large (3+) (Negative); Urine Ketones Negative (Negative); Urine Protein 100 (2+) mg/dL (Neg-Trace)
[2023-09-11 21:07] LABS: Bacteria Urine 4+ (None Seen); Hyaline Casts Urine 0-2 /LPF (0-2); RBC Urine >20 /HPF (0-2); UACC Culture Trigger YES; WBC Urine >50 /HPF (0-5)
[2023-09-11] MEDS: ondansetron HCL 4 MG/2 ML VIAL IVPUSH (21:12)
[2023-09-11] MEDS: Acetaminophen 325 MG TABLET 975 MG PO (21:12)
[2023-09-11] MEDS: 0.9 % Sodium Chloride 1,000 ML 999 ML IV (21:51)
[2023-09-11] MEDS: cefTRIAXone sodium 1 GM in 0.9 % Sodium Chloride 50 ML IV (22:45)
[2023-09-11 22:57] LABS: Lactic Acid 0.9 mmol/L (0.5-2.0)
[2023-09-11 23:56] VITALS: BP 134/86; PULSE 93; RESP 16; TEMP 36.7; O2SAT 98
== END 2023-09-11 23:57 | disposition home or self-care (01) ==
PROVIDERS: Emergency Medicine; Physician Assistant; Emergency Provider Emergency Medicine; PCP Physician Assistant
DX: R07.89 Other chest pain (principal); R11.2 Nausea with vomiting, unspecified; R31.9 Hematuria, unspecified; R10.9 Unspecified abdominal pain; Z20.828 Contact with and (suspected) exposure to other viral communicable diseases; Z11.52 Encounter for screening for COVID-19; Z79.899 Other long term (current) drug therapy
CPT/HCPCS: 0241U; 36415; 74176; 80048; 80076; 81001; 81025; 82550; 83605; 83690; 83735; 84484; 85025; 87040; 87086; 87088; 87186; 93005; 96361; 96365; 96375; 99284; 99285; J0696; J2405

== ENCOUNTER → 2023-09-11 13:51 | Outpatient (BNV) | payer OTHER, SELFPAY | PROVIDERS: Emergency Provider Emergency Medicine; PCP Physician Assistant; Visit Provider Internal Medicine Cardiovascular Disease | DX: R07.9 Chest pain, unspecified (principal) | CPT/HCPCS: 93010 ==

== ENCOUNTER 2023-09-20 13:02 | Outpatient (AMB) | payer OTHER, SELFPAY ==
[2023-09-20 13:03] VITALS: BP 130/90; PULSE 113; BMI 36.6
--- NOTE | 2023-09-20 13:03 | MHC.OFFVIS ---
Intake Vital Signs 09/20/23 13:03 Height 5 ft 5 in Weight 220 lb 0.341 oz BMI 36.6 BP 130/90 H Blood Pressure Location Rt brachial Position Sitting Pulse 113 H Pulse Source Pulse Oximeter Intake Visit Reasons: DM-confirmed Intake Note: Patient presents today to follow up on D2MT. 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 Required: No Accompanied by: Self / Same As Patient Allergies latex [LATEX] Allergy (Mild, Verified 09/20/23 13:21) RASH Iodinated Contrast Media [IV Contrast Dye] Allergy (Verified 09/20/23 13:21) Anaphylaxis amoxicillin Adverse Reaction (Unknown, Verified 09/20/23 13:21) vaginal infection dulaglutide [From Trulicity] Adverse Reaction (Unknown, Verified 09/20/23 13:21) vomitting, nausea semaglutide [From Ozempic] Adverse Reaction (Unknown, Verified 09/20/23 13:21) Chest pain, vomitting HPI HPI Comments History of Present Illness Details Patient is a 48-year-old female with DM type 2 diagnosed who presents for management of diabetes. Past medical history: DM2, HTN, Hirsutism, dyslipidemia., vitamin d deficiency. Micro and macrovascular complications: Nephropathy Diabetes medications: Dizziness with Trulicity. declined to use Januvia ?Lantus 80 units.? She has been using 15 -25 units of Humalog. Not ? ?Currently on Mounjaro 7.5 mg Qwkly . In the past she was intolerant of Trulicity due to dizzziness as well as SGLT-2 and she had declined the use of Januvia in 2020 Could not tolerate Mounjaro Some episodes of ?hypoglycemia with Blood glucose monitoring: Tiff download shows she is using this CGMS68 % of the time. Average glucose is 224 with GMI of 8.7%. 22% in target with 78% hyperglycemia1 % hypoglycemia Symptoms reported: numbness, tingling, cramping in lower extremities Hypoglycemia: denies Hyperglycemia: denies urinary frequency, Optho: Laboratory Tests 04/30/20 05/05/20 12/08/20 08:29 08:33 14:53 Creatinine Estimated GFR Hgb A1c (Clinic) Hemoglobin A1c % Triglycerides 218 Cholesterol 173 LDL Cholesterol Di rect 121 H LDL Cholesterol, C alc 101 HDL Cholesterol 29 Vitamin B12 TSH 0.86 12/08/20 04/01/21 04/27/21 14:53 07:44 05:25 Creatinine 0.71 Estimated GFR > 60 Hgb A1c (Clinic) Hemoglobin A1c % 7.9 Triglycerides Cholesterol LDL Cholesterol Di rect LDL Cholesterol, C alc HDL Cholesterol Vitamin B12 211 TSH 05/27/21 11:34 Creatinine Estimated GFR Hgb A1c (Clinic) 9.7 H Hemoglobin A1c % Triglycerides Cholesterol LDL Cholesterol Di rect LDL Cholesterol, C alc HDL Cholesterol Vitamin B12 TSH [facility] Medical History Itching Obesity (BMI 30-39.9) Sepsis Diverticulitis of both large and small intestine with perforation and abscess Diverticulitis of large intestine with abscess Morbid obesity with BMI of 50.0-59.9, adult Hypertension Vitamin D deficiency B12 deficiency Diabetic nephropathy associated with type 2 diabetes mellitus Dyslipidemia Hirsutism Diabetes type 2, uncontrolled Surgical History Hx of abdominal surgery Hx of umbilical hernia repair History of ankle surgery Hx of section Family History Father Throat cancer Cirrhosis Mother Diabetes Social History Household Members: None Housing: House Do you presently have visiting nurse or other home services: Yes Alcohol intake: former Patient Tobacco Use Status: Current everyday Tobacco user Tobacco use type: Cigarette Cigarettes Per Day: 5 Years Smoked: 30 e-Cigarette/Vaping Use: Never Used Second Hand Smoke Exposure: Yes Substance Use Type: Marijuana Advance Directives Date on File: 05/05/21 service: No Current occupational status: disabled Cognitive needs: No Hearing needs: No Vision needs: Yes Physical Exam Vital Signs: Last Vital Signs Pulse 113 H 09/20/23 13:03 BP 130/90 H 09/20/23 13:03 BMI result Body Mass Index 36.6 Absence of Cushingoid features. Absence of acromegalic features. Neck exam reveals nl size thyroid about 15 gms. No thyroid nodules palpable. No carotid bruits present. Lungs CTA. Heart S1 S2, Reg R/R. No M/R/ G. Skin exam reveals absence of vitiligo but presence of acanthosis nigricans. Abdominal exam reveals Soft NT/ND with NA BS. No organomegaly present. Neck Other: . Extrem Other: Visual exam of foot performed. Small shallow ulcer on left toe. No onchomycosis, no callouses.Pulses 2 + distally Sensation intact to monofilament exam. Vibratory sensation sensed is decreased with 128 Hz tuning fork Assessment & Plan Assessment & Plan (1) Insulin dependent type 2 diabetes mellitus: Code(s): E11.9 - Type 2 diabetes mellitus without complications; Z79.4 - technician terminal and repeater (current) use of insulin Plan: This is a 48-year-old female with a history of type 2 diabetes being treated with Mounjaro with excellent improved glycemic control and known microvascular complications namely diabetic nephropathy. I do not think patient's symptoms related to hypoglycemia but she continues to experience symptoms of the 7.5 mg will reduce to 5 mg Plan is to restart basal insulin Lantus 40 units and titrate by 10 units every 4 days to keep point of care <150 fasting. Most likely, patient will need prandial insulin in addition. She will follow up with the clinical educator. We will also check a lipid profile. She will also get a dexamethasone suppression test performed as well as plasma metanephrines Coding Level of Care Code Est Pt Level 4 (29978) Diagnoses Insulin dependent type 2 diabetes mellitus E11.9; Z79.4
[2023-09-20 13:21] LABS: Glucose, Whole Blood 218 mg/dL (60-115)
== END 2023-09-20 13:38 | disposition home or self-care (01) ==
PROVIDERS: PCP Physician Assistant; Visit Provider Internal Medicine Endocrinology, Diabetes & Metabolism
DX: E11.9 Type 2 diabetes mellitus without complications (principal); Z79.4 Long term (current) use of insulin
CPT/HCPCS: 99214

== ENCOUNTER → 2023-09-20 13:02 | Outpatient (BNVA) | payer OTHER, SELFPAY | PROVIDERS: PCP Physician Assistant; Visit Provider Internal Medicine Endocrinology, Diabetes & Metabolism | DX: E11.9 Type 2 diabetes mellitus without complications (principal); Z79.4 Long term (current) use of insulin | CPT/HCPCS: 82947; 99212 ==

== ENCOUNTER 2023-10-05 10:38 | Outpatient (AMB) | payer OTHER, SELFPAY ==
[2023-10-05 10:41] VITALS: BP 142/80; PULSE 118; RESP 16; O2SAT 98; BMI 35.5
--- NOTE | 2023-10-05 10:41 | MHC.PC.OV ---
Vital Signs 10/05/23 10:41 Height 5 ft 5 in Weight 213 lb 2 oz BMI 35.5 BP 142/80 H Blood Pressure Location Lt brachial Position Sitting Respiration 16 Pulse 118 H Pulse Source Pulse Oximeter Pulse Oximetry (%) 98 Oxygen Delivery Method Room Air Intake Visit Reasons: F/U After Surgery Intake Note: The patient has presented with Type 2 Diabetes. The scheduled abdominal wall surgery has been postponed due to the need for weight loss and reduction of BMI. Information Analyst Required: No Accompanied by: Self / Same As Patient Allergies latex [LATEX] Allergy (Mild, Verified 10/05/23 11:06) RASH Iodinated Contrast Media [IV Contrast Dye] Allergy (Verified 10/05/23 11:06) Anaphylaxis amoxicillin Adverse Reaction (Unknown, Verified 10/05/23 11:06) vaginal infection dulaglutide [From Trulicity] Adverse Reaction (Unknown, Verified 10/05/23 11:06) vomitting, nausea semaglutide [From Ozempic] Adverse Reaction (Unknown, Verified 10/05/23 11:06) Chest pain, vomitting Medication List - Last Reconciled 10/05/23 by Cruz Navas PA-C acetaminophen 500 - 1,000 mg (1 - 2 x 500 mg) PO Q6H PRN albuterol sulfate 2.5 mg (3 mL) inhalation Q6H PRN 30 days albuterol sulfate 90 mcg/actuation 1 inh inhalation QID PRN 30 days amlodipine 5 mg PO DAILY aspirin 81 mg PO DAILY blood sugar diagnostic (FreeStyle Test strips) testing 3x daily cefuroxime axetil 500 mg PO Q12H cholecalciferol (vitamin D3) (Vitamin D3) 25 mcg PO DAILY codeine-guaifenesin 10-100 mg/5 mL 5 mL PO Q6H PRN dexamethasone 1 mg PO ONCE epinephrine (EpiPen 2-Josué) 0.3 mg (0.3 mL) IM ONCE PRN famotidine 40 mg PO BEDTIME fenofibrate nanocrystallized 145 mg PO DAILY flash glucose scanning reader (FreeStyle Tiff 2 [place]) 1 ea miscellaneous DIRECTED flash glucose sensor (FreeStyle Tiff 2 Sensor kit) DIRECTED EVERY 2 WEEKS fluticasone propion-salmeterol 250-50 mcg/dose (Advair Diskus) 1 ea inhalation BID 30 days insulin glargine (Lantus Solostar U-100 Insulin) 80 units (0.8 mL) subcut DAILY insulin lispro 20 - 30 units subcut TID meclizine 25 mg PO TID PRN 15 days metoprolol tartrate 25 mg PO DAILY miscellaneous medical supply 1 ea miscellaneous DAILY 99 days nitroglycerin 0.4 mg sublingual Q5M PRN 15 days ondansetron 8 mg PO Q12H PRN 10 days oxycodone 10 mg PO Q8H PRN 7 days pen needle, diabetic (BD Ultra-Fine Macy Pen Needle) USE DIRECTED 4 TIMES DAILY polyethylene glycol 3350 (Miralax) 17 grams PO DAILY tirzepatide (Mounjaro) 10 mg (0.5 mL) subcut QWEEK Tobacco use date assessed: 08/03/23 Dental Screening Dental Screen Date: 10/05/23 Did you have a dental visit in the last 12 months?: No Did you have a dental problem in the last 6 months where you did not have access to dental care?: No Was dental information given to patient?: Patient has dentist HPI F/U After Surgery HPI Details Patient is a 47-year-old female here today for a ER follow-up visit/ pre op visit.? Patient has a past medical history significant for obesity, type 2 diabetes, tobacco dependency, generalized anxiety disorder, chronic incisional abdominal hernia. Has followed up with Dr. Ruiz abdominal hernia surgeon. Was not a candidate for surgery as she has gained weight, continues to smoke in her diabetes isn't well controlled. She was told she needed to get her diabetes better controlled and lose a significant amount of weight so that she would not have any complications after her hernia repair. NO FOLLOW-UP APPOINTMENT GIVEN WITH SURGEON. She had side effects to Monjouro that she is unable to tolerate. PLAN: Will restart Ozempic 0.5 mg weekly to help glycemic control and added benefit of weight loss. She will try to withstand the possible side effects. She will call surgeon's office back to reestablish a follow-up appointment as she is going to work on trying to get glycemic control and weight loss so that surgery can be done. As far as her pain management she only finds herself being more physically active when her pain is controlled. At this time oxycodone 10 mg t.i.d. has been effective for her. Otherwise she reports only finding comfort lying down in bed being sedentary. ? [facility] Medical History Itching Obesity (BMI 30-39.9) Sepsis Diverticulitis of both large and small intestine with perforation and abscess Diverticulitis of large intestine with abscess Morbid obesity with BMI of 50.0-59.9, adult Hypertension Vitamin D deficiency B12 deficiency Diabetic nephropathy associated with type 2 diabetes mellitus Dyslipidemia Hirsutism Diabetes type 2, uncontrolled Surgical History Hx of abdominal surgery Hx of umbilical hernia repair History of ankle surgery Hx of section Family History Father Throat cancer Cirrhosis Mother Diabetes Social History Household Members: None Housing: House Do you presently have visiting nurse or other home services: Yes Alcohol intake: former Patient Tobacco Use Status: Current everyday Tobacco user Tobacco use type: Cigarette Cigarettes Per Day: 5 Years Smoked: 30 e-Cigarette/Vaping Use: Never Used Second Hand Smoke Exposure: Yes Substance Use Type: Marijuana Advance Directives Date on File: 05/05/21 service: No Current occupational status: disabled Cognitive needs: No Hearing needs: No Vision needs: Yes Questionnaire Thrive Questionnaire Date Thrive assessed: 08/03/23 RUI-7 AMB Questionnaire RUI-7 Date RUI - 7 assessed: 08/03/23 Source: Developed by Drs. Kahlil Thao, Patito Pradhan, Shine Carias and colleagues, with an educational kathleen from [employer]. Review of Systems Const Denies headache(s) Eyes Denies loss of vision ENT Denies vertigo, Denies dizziness, Denies headache(s) and Denies sore throat Card Denies chest pain, Denies leg edema and Denies lightheadedness Resp Denies cough, Denies hemoptysis and Denies wheezing GI Denies abdominal pain, Denies melena, Denies constipation, Denies diarrhea and Denies vomiting Denies urinary frequency, Denies dysuria and Denies urinary urgency Musc Denies arthralgias, Denies joint swelling, Denies numbness and Denies tingling Neuro Denies Abnormal speech present, Denies behavioral changes, Denies vertigo, Denies dizziness, Denies headache(s), Denies loss of vision, Denies memory loss, Denies numbness and Denies tingling Psych Denies anxiety, Denies behavioral changes, Denies depression, Denies memory loss and Denies panic attacks Abhijit/Lymph Denies easy bleeding and Denies easy bruising Aller/Immun Denies wheezing Physical exam (Primary Care) Vital Signs: Last Vital Signs Pulse 118 H 10/05/23 10:41 Resp 16 10/05/23 10:41 BP 142/80 H 10/05/23 10:41 Pulse Ox 98 10/05/23 10:41 Oxygen Delivery Method Room Air 10/05/23 10:41 BMI result Body Mass Index 35.5 Tobacco/Smoking Status: Tobacco use Status Tobacco use date assessed 08/03/23 10/05/23 10:43 Patient Tobacco Use Status Current everyday Tobacco 10/05/23 10:43 Tobacco use type Cigarette 10/05/23 10:43 e-Cigarette/Vaping Use Never Used 10/05/23 10:43 Are you ready to quit: Yes Tobacco cessation counseling provided: Yes Items discussed: Nicotine replacement and QuitWorks Relapse Prevention: discussed the importance of a supportive environment, discussed negative mood or depression after quitting, weight gain after smoking is common and discussed dietary, exercise and/or lifestyle changes Number of minutes spent counselin CPT code: 73265 - 4-10 Minutes Thrive Assessment: Date of Thrive Assessment Date Thrive assessed 08/03/23 10/05/23 10:43 Const General: no acute distress, alert and awake Nutritional Appearance: well nourished Orientation/consciousness: oriented to person, oriented to place and oriented to time HENMT Ears: TM's normal bilaterally General nose exam: Normal nasal mucous membranes and turbinates present Eyes Conjunctivae: conjunctivae normal Sclerae: sclerae normal Pupils: Equal, round and reactive pupils present Neck Neck: Yes no lymphadenopathy and Yes no JVD Thyroid: Thyroid normal Carotids: no bruits Resp Effort & Inspection: normal respiratory effort and not tachypneic Auscultation: no crackles, no rales, no rhonchi and no wheezes Cardio Rate: regular rate Rhythm: regular rhythm Heart sounds: no murmurs and normal S1 and S2 GI Other: PATIENT WEARING AN ABDOMINAL BINDER LARGE CENTRALIZED ABDOMINAL HERNIA NOTED Palpation (GI): Soft to palpation, Tenderness to palpation present (GI), no hepatomegaly and no splenomegaly Auscultation: normal bowel sounds Skin General skin exam: no rashes or lesions noted and dry skin Neuro General: oriented to person, oriented to place and oriented to time Cranial nerves: Yes Equal, round and reactive pupils present Speech: No Abnormal speech present Gait exam (Neuro): Normal gait present Motor exam (neuro): no tremor noted Extrem Right upper extremity: full ROM Left upper extremity: full ROM Right lower extremity: full ROM; no edema Left lower extremity: full ROM; no edema Psych Mental Status: mental status grossly normal Speech and movement: Normal speech and movement present Affect: normal affect Attitude: cooperative Thought process: Normal thought process present Assessment and Plan Assessment & Plan (1) Incisional hernia: Code(s): K43.2 - Incisional hernia without obstruction or gangrene Qualifiers: Obstruction and gangrene presence: without obstruction or gangrene Qualified Code(s): K43.2 - Incisional hernia without obstruction or gangrene Plan: Unfortunate recently experienced enlargement in abdominal hernia. Does report pain all over abdomen. Continues to wait for reconstruction surgery her abdomen. At this point I am are trying to manage her pain for now on oxycodone 10 mg Q 8 hours p.r.n until she can get definitive treatment of abdominal hernia. She reports she is unable to be physically active to lose weight without having her pain controlled as her pain does not allow her to get up and out of her bed most of the time. She has followed up with hernia surgeon though was deemed not a candidate at this time for surgery due to her obesity and uncontrolled diabetes. PLAN: She was unable to tolerate menstrual due to side effects.. Will restart Ozempic for glycemic control and added benefit of weight loss. She will also follow-up with her greenskeeper supervisor. She will work on smoking cessation as well. Will supply her with paper Rx for an abdominal binder get from DME supplier Thus far she has gotten cardiology clearance, hyperglycemia was been better controlled. Mild leukocytosis seems to be a chronic finding. . (2) Insulin dependent type 2 diabetes mellitus: Code(s): E11.9 - Type 2 diabetes mellitus without complications; Z79.4 - USP (current) use of insulin Plan: Has captured glycemic control with mounjaro injections. Her A1c is much improved. Has lost significant amount of weight. Unfortunately BMI is still above 30. (3) Tobacco dependence: Code(s): F17.200 - Nicotine dependence, unspecified, uncomplicated Plan: She does understand she needs to completely quit smoking. She found her still smoking again due to her stress and anxiety over her medical issues including her incisional hernia Medications: New semaglutide (Ozempic) 0.5 mg (0.736 mL) subcut QWEEK 4 weeks 3 mL 1RF E11.9 - Type 2 diabetes mellitus without complications, Z79.4 - USP (current) use of insulin abdominal binder As directed 1 ea 0RF K43.2 - Incisional hernia without obstruction or gangrene Changed From oxycodone Partial Fill upon patient request. 10 mg PO Q8H 7 days PRN 21 tabs 0RF pain K43.2 - Incisional hernia without obstruction or gangrene To oxycodone Partial Fill upon patient request. 10 mg PO Q8H 21 days 63 tabs 0RF pain K43.2 - Incisional hernia without obstruction or gangrene Discontinued cefuroxime axetil Discontinued Reason: Doctor's Order 500 mg PO Q12H 20 tabs 0RF codeine-guaifenesin 10-100 mg/5 mL [address] while taking this medication. do not take with other opioid medications. Discontinued Reason: Doctor's Order 5 mL PO Q6H PRN 120 mL 0RF allergy symptoms tirzepatide (Mounjaro) Discontinued Reason: Doctor's Order 10 mg (0.5 mL) subcut QWEEK 2 mL 5RF Coding Level of Care Code Est Pt Level 4 (43590) Diagnoses Incisional hernia, without obstruction or gangrene K43.2 Obstruction and gangrene presence: without obstruction or gangrene Insulin dependent type 2 diabetes mellitus E11.9; Z79.4 Tobacco dependence F17.200 Additional Codes Vital Signs *Quality* - CPT code: 77560 - 4-10 Minutes ([id number])
== END 2023-10-05 11:51 | disposition home or self-care (01) ==
PROVIDERS: PCP Physician Assistant; Visit Provider Physician Assistant
DX: K43.2 Incisional hernia without obstruction or gangrene (principal); E11.9 Type 2 diabetes mellitus without complications; Z79.4 Long term (current) use of insulin; F17.210 Nicotine dependence, cigarettes, uncomplicated
CPT/HCPCS: 99214; 99406

== ENCOUNTER 2023-10-12 14:04 | Outpatient (AMB) | payer OTHER, SELFPAY ==
--- NOTE | 2023-10-12 14:05 | MHC.OFFVIS ---
Intake Vital Signs 10/12/23 14:49 Height 5 ft 5 in Weight 217 lb 4 oz BMI 36.1 BP 140/78 H Blood Pressure Location Lt brachial Position Sitting Respiration 12 Pulse 97 Pulse Source Pulse Oximeter Pulse Oximetry (%) 98 Oxygen Delivery Method Room Air Intake Visit Reasons: Lower back pain Intake Note: Patient comes in for initial visit was referred by primary care. Reports pain 8.5/10. Allergies latex [LATEX] Allergy (Mild, Verified 10/12/23 14:51) RASH Iodinated Contrast Media [IV Contrast Dye] Allergy (Verified 10/12/23 14:51) Anaphylaxis amoxicillin Adverse Reaction (Unknown, Verified 10/12/23 14:51) vaginal infection dulaglutide [From Trulicity] Adverse Reaction (Unknown, Verified 10/12/23 14:51) vomitting, nausea semaglutide [From Ozempic] Adverse Reaction (Unknown, Verified 10/12/23 14:51) Chest pain, vomitting HPI HPI Comments History of Present Illness Details Mckenzie is very unfortunate 48 years old female who presents in my office with complains on severe pain in the area of abdominal hernia with radiation of the pain to the lower back. She is suffering from enormous abdominal hernia, she had several reconstructions of the anterior abdominal wall in the past. Currently her hernia is managed by abdominal binder. She reports that because of her pain she can not sleep normally can not do activities of daily living can not take care of herself can not function normally. She is on permanent disability, she reports her pain in terms of tissue damage is punching cramping crushing, tugging pulling wrenching, hot burning scalding searing, dull hurting heavy, tiring and exhausting, punishing and killing, tight squeezing and tearing. She is currently receives oxycodone for this pain 10 mg 3 times a day. She never had any physical therapy for this pain. Ever had any injections. She had multiple x-rays and MRIs of her abdomen. She feels that because of the size of her hernia her back is tired, because of this the position of the lumbar spine is not anatomical. Her past medical history significant for headaches hypertension fatigue dizziness and painting coronary artery disease history of dysrhythmia of the heart anemia shortness of breath asthma diabetes and history of ovarian cysts. Her past surgical history significant for and several surgeries on her abdomen including multiple hernia repairs. She admits smoking cigarettes denies drinking alcohol drinks caffeinated beverages denies recreational drugs. [facility] Medical History Itching Obesity (BMI 30-39.9) Sepsis Diverticulitis of both large and small intestine with perforation and abscess Diverticulitis of large intestine with abscess Morbid obesity with BMI of 50.0-59.9, adult Hypertension Vitamin D deficiency B12 deficiency Diabetic nephropathy associated with type 2 diabetes mellitus Dyslipidemia Hirsutism Diabetes type 2, uncontrolled Surgical History Hx of abdominal surgery Hx of umbilical hernia repair History of ankle surgery Hx of section Family History Father Throat cancer Cirrhosis Mother Diabetes Social History Household Members: None Housing: House Do you presently have visiting nurse or other home services: Yes Alcohol intake: former Patient Tobacco Use Status: Current everyday Tobacco user Tobacco use type: Cigarette Cigarettes Per Day: 5 Years Smoked: 30 e-Cigarette/Vaping Use: Never Used Second Hand Smoke Exposure: Yes Substance Use Type: Marijuana Advance Directives Date on File: 05/05/21 service: No Current occupational status: disabled Cognitive needs: No Hearing needs: No Vision needs: Yes Review of Systems Const All systems reviewed & are unremarkable except as noted in HPI and below Reports no additional complaints ENT Reports Normal hearing present Card Reports no additional complaints Resp Reports no additional complaints GI Reports as per HPI Musc Reports as per HPI Neuro Reports Normal hearing present, Denies Abnormal speech present, Denies confusion and Denies Sensory deficit (Neuro) Psych Denies confusion Physical Exam Vital Signs: Last Vital Signs Pulse 97 10/12/23 14:49 Resp 12 10/12/23 14:49 BP 140/78 H 10/12/23 14:49 Pulse Ox 98 10/12/23 14:49 Oxygen Delivery Method Room Air 10/12/23 14:49 BMI result Body Mass Index 36.1 Const General: no acute distress; No confusion Nutritional Appearance: obese morbidly obese Orientation/consciousness: patient oriented x3 and No confusion Eyes General: appearance normal, both eyes and all related structures Pupils: Equal, round and reactive pupils present EOM: EOMs intact bilaterally Neck Neck: Yes full ROM Chest Chest palpation & inspection: normal inspection of the chest Resp Effort & Inspection: normal respiratory effort, able to speak in complete sentences, normal respiratory pattern, no audible wheezes and no cough Cardio Jugular venous distension: no JVD GI Other: Large protruding anteriorly and laterally to the left abdominal diastolic hernia. Several scars on the anterior surface of her abdomen delineate previous surgeries. The scars bear no signs of the infection. Back/Spine/Pelvis Other: Tenderness on palpation in paraspinal and spinal region of the lumbar spine tenderness on palpation in projection of the bilateral sacroiliac joints. Manjit test is positive bilaterally. Neuro General: patient oriented x3, gait normal and No confusion Cranial nerves: Yes CN's II-XII intact bilaterally, Yes Equal, round and reactive pupils present, Yes Normal hearing present and Yes Ability to bilaterally elevate shoulders present Speech: No Abnormal speech present Gait exam (Neuro): Normal gait present Motor exam (neuro): 5/5 motor strength present throughout Sensory Exam: No Sensory deficit (Neuro) Extrem General: No pedal edema Psych Speech and movement: Normal speech and movement present Affect: normal affect Attitude: cooperative Thought process: Normal thought process present Thought content: Normal thought content present Insight: Good insight present (Psych) Judgement: Good judgement present (Psych) Assessment & Plan Assessment & Plan (1) Chronic abdominal pain: Code(s): R10.9 - Unspecified abdominal pain; G89.29 - Other chronic pain (2) Incisional hernia: Code(s): K43.2 - Incisional hernia without obstruction or gangrene Qualifiers: Obstruction and gangrene presence: without obstruction or gangrene Qualified Code(s): K43.2 - Incisional hernia without obstruction or gangrene (3) Low back pain: Code(s): M54.50 - Low back pain, unspecified (4) Spondylosis of lumbar region without myelopathy or radiculopathy: Code(s): M47.816 - Spondylosis without myelopathy or radiculopathy, lumbar region (5) Sacroiliitis: Code(s): M46.1 - Sacroiliitis, not elsewhere classified (6) Sacroiliac joint dysfunction of both sides: Code(s): M53.3 - Sacrococcygeal disorders, not elsewhere classified Plan Most likely the pain of this patient is related to her abdominal hernia. I offered her diagnostic injections in the sacroiliac joints and diagnostic injections medial branches. However patient stated that she will not be able to lie on her stomach even under sedation. Therefore currently no procedures could be performed for this patient because of her inability to lie on her stomach. She needs to work on her hernia repair. My impression is that her low back pain will become much better after hernia repair. However in the future if her pain will continue in the lower back after hernia repair and she will regain ability to lie on her stomach we can address sacroiliac joint pain as well as facet arthropathy pain with the procedures as above. Coding Level of Care Code New Pt Level 3 (57491) Diagnoses Chronic abdominal pain R10.9; G89.29 Incisional hernia, without obstruction or gangrene K43.2 Obstruction and gangrene presence: without obstruction or gangrene Low back pain M54.50 Spondylosis of lumbar region without myelopathy or radiculopathy M47.816 Sacroiliitis M46.1 Sacroiliac joint dysfunction of both sides M53.3
[2023-10-12 14:49] VITALS: BP 140/78; PULSE 97; RESP 12; O2SAT 98; BMI 36.1
== END 2023-10-12 15:01 | disposition home or self-care (01) ==
LOC: HO.PMC 14:04
PROVIDERS: PCP Physician Assistant; Visit Provider Anesthesiology
DX: R10.9 Unspecified abdominal pain (principal); G89.29 Other chronic pain; K43.2 Incisional hernia without obstruction or gangrene; M54.50 Low back pain, unspecified; M47.816 Spondylosis without myelopathy or radiculopathy, lumbar region; M46.1 Sacroiliitis, not elsewhere classified; M53.3 Sacrococcygeal disorders, not elsewhere classified
CPT/HCPCS: 99203

== ENCOUNTER → 2023-10-12 14:04 | Outpatient (BNVA) | payer OTHER, SELFPAY | PROVIDERS: PCP Physician Assistant; Visit Provider Anesthesiology | DX: K43.2 Incisional hernia without obstruction or gangrene (principal); M54.50 Low back pain, unspecified; M47.816 Spondylosis without myelopathy or radiculopathy, lumbar region; M46.1 Sacroiliitis, not elsewhere classified; M53.3 Sacrococcygeal disorders, not elsewhere classified; G89.29 Other chronic pain | CPT/HCPCS: 99202 ==

== ENCOUNTER 2023-11-22 14:31 | Outpatient (AMB) | payer OTHER, SELFPAY ==
[2023-11-22 14:41] VITALS: BP 132/68; PULSE 116; O2SAT 96; BMI 36.3
--- NOTE | 2023-11-22 14:41 | MHC.PC.OV ---
Vital Signs 11/22/23 14:41 Height 5 ft 5 in Weight 218 lb 2 oz BMI 36.3 BP 132/68 Blood Pressure Location Lt brachial Position Sitting Pulse 116 H Pulse Source Pulse Oximeter Pulse Oximetry (%) 96 Oxygen Delivery Method Room Air Intake Visit Reasons: 6 Week F/U Allergies latex [LATEX] Allergy (Mild, Verified 11/22/23 14:57) RASH Iodinated Contrast Media [IV Contrast Dye] Allergy (Verified 11/22/23 14:57) Anaphylaxis amoxicillin Adverse Reaction (Unknown, Verified 11/22/23 14:57) vaginal infection dulaglutide [From Trulicity] Adverse Reaction (Unknown, Verified 11/22/23 14:57) vomitting, nausea semaglutide [From Ozempic] Adverse Reaction (Unknown, Verified 11/22/23 14:57) Chest pain, vomitting Medication List - Last Reconciled 11/22/23 by Cruz Navas PA-C abdominal binder As directed acetaminophen 500 - 1,000 mg (1 - 2 x 500 mg) PO Q6H PRN albuterol sulfate 2.5 mg (3 mL) inhalation Q6H PRN 30 days albuterol sulfate 90 mcg/actuation 1 inh inhalation QID PRN 30 days amlodipine 5 mg PO DAILY aspirin 81 mg PO DAILY blood sugar diagnostic (FreeStyle Test strips) testing 3x daily cholecalciferol (vitamin D3) (Vitamin D3) 25 mcg PO DAILY dexamethasone 1 mg PO ONCE epinephrine (EpiPen 2-Josué) 0.3 mg (0.3 mL) IM ONCE PRN famotidine 40 mg PO BEDTIME fenofibrate nanocrystallized 145 mg PO DAILY flash glucose scanning reader (FreeStyle Tiff 2 [place]) 1 ea miscellaneous DIRECTED flash glucose sensor (FreeStyle Tiff 2 Sensor kit) DIRECTED EVERY 2 WEEKS fluticasone propion-salmeterol 250-50 mcg/dose (Advair Diskus) 1 ea inhalation BID 30 days insulin glargine (Lantus Solostar U-100 Insulin) 80 units (0.8 mL) subcut BEDTIME insulin lispro 20 - 30 units subcut TID meclizine 25 mg PO TID PRN 15 days metoprolol tartrate 25 mg PO DAILY miscellaneous medical supply 1 ea miscellaneous DAILY 99 days nitroglycerin 0.4 mg sublingual Q5M PRN 15 days ondansetron 8 mg PO Q12H PRN 10 days oxycodone 10 mg PO Q8H 21 days pen needle, diabetic (BD Ultra-Fine Macy Pen Needle) USE DIRECTED 4 TIMES DAILY polyethylene glycol 3350 (Miralax) 17 grams PO DAILY semaglutide (Ozempic) 0.5 mg (0.736 mL) subcut QWEEK 4 weeks Tobacco use date assessed: 08/03/23 Dental Screening Dental Screen Date: 10/05/23 HPI 6 Week F/U HPI Details Patient is a 47-year-old female here today for a 6 week follow-up visit.? Patient has a past medical history significant for obesity, type 2 diabetes, tobacco dependency, generalized anxiety disorder, chronic incisional abdominal hernia. Incisional hernia--> Has followed up with Dr. Ruiz abdominal hernia surgeon. Was not a candidate for surgery as she has gained weight, continues to smoke in her diabetes isn't well controlled. She was told she needed to get her diabetes better controlled and lose a significant amount of weight so that she would not have any complications after her hernia repair. NO FOLLOW-UP APPOINTMENT GIVEN WITH SURGEON. -->UNFORTUNATELY NOW CONTINUES TO BE IN A SIGNIFICANT AMOUNT OF PAIN, DOES REPORT AMENORRHEA AND CONTINUING LOWER BACK/SCIATICA OVER THE LAST MONTH AND ATTRIBUTES THIS TO HER LARGE INCISIONAL HERNIA CAUSING DISRUPTION IN HER PELVIC/OPERATOR ELECTRONIC WARFARE REGION At last visit we started Ozempic 0.5 mg in hopes it will help with weight loss and offer her no side effects. Unfortunately has not lost much weight since last office visit 6 weeks ago. We discussed her pain management and agreed to continue oxycodone 10 mg t.i.d. as it has offered her good pain relief. We hoped that it would help her be more physically active in order to lose weight to become a candidate for her her surgery. We have considered weight management referral though she has not interested in bariatric surgery at this time as she would like to get abdominal hernia surgery as she feels this is a recent she has not been able to lose weight. Concern--> she is noted some left arm/hand and wrist numbness over the last month. PLAN: Will send for EMG testing to evaluate for carpal tunnel versus cubital tunnel syndrome. Type 2 diabetes: Patient continues to follow Endocrinology.. She reports her blood sugars on a been well controlled. Her Lantus was changed to generic glargine and she does not feel that this insulin has been effective. She reports her blood sugars continue to be 250 to 300s. Today's A1c at 9.9. There has been approved for [facility] inpatient prominences to start this medication LUI. [facility] Medical History Itching Obesity (BMI 30-39.9) Sepsis Diverticulitis of both large and small intestine with perforation and abscess Diverticulitis of large intestine with abscess Morbid obesity with BMI of 50.0-59.9, adult Hypertension Vitamin D deficiency B12 deficiency Diabetic nephropathy associated with type 2 diabetes mellitus Dyslipidemia Hirsutism Diabetes type 2, uncontrolled Surgical History Hx of abdominal surgery Hx of umbilical hernia repair History of ankle surgery Hx of section Family History Father Throat cancer Cirrhosis Mother Diabetes Social History Household Members: None Housing: House Do you presently have visiting nurse or other home services: Yes Alcohol intake: former Patient Tobacco Use Status: Current everyday Tobacco user Tobacco use type: Cigarette Cigarettes Per Day: 5 Years Smoked: 30 e-Cigarette/Vaping Use: Never Used Second Hand Smoke Exposure: Yes Substance Use Type: Marijuana Advance Directives Date on File: 05/05/21 service: No Current occupational status: disabled Cognitive needs: No Hearing needs: No Vision needs: Yes Questionnaire Thrive Questionnaire Date Thrive assessed: 08/03/23 RUI-7 AMB Questionnaire RUI-7 Date RUI - 7 assessed: 08/03/23 Source: Developed by Drs. Kahlil Thao, Patito Pradhan, Shine Carias and colleagues, with an educational kathleen from [employer]. Review of Systems Const Denies headache(s) Eyes Denies loss of vision ENT Denies vertigo, Denies dizziness, Denies headache(s) and Denies sore throat Card Denies chest pain, Denies leg edema and Denies lightheadedness Resp Denies cough, Denies hemoptysis and Denies wheezing GI Denies abdominal pain, Denies melena, Denies constipation, Denies diarrhea and Denies vomiting Denies urinary frequency, Denies dysuria and Denies urinary urgency Musc Denies arthralgias, Denies joint swelling, Denies numbness and Denies tingling Neuro Denies Abnormal speech present, Denies behavioral changes, Denies vertigo, Denies dizziness, Denies headache(s), Denies loss of vision, Denies memory loss, Denies numbness and Denies tingling Psych Denies anxiety, Denies behavioral changes, Denies depression, Denies memory loss and Denies panic attacks Abhijit/Lymph Denies easy bleeding and Denies easy bruising Aller/Immun Denies wheezing Physical exam (Primary Care) Vital Signs: Last Vital Signs Pulse 116 H 11/22/23 14:41 BP 132/68 11/22/23 14:41 Pulse Ox 96 11/22/23 14:41 Oxygen Delivery Method Room Air 11/22/23 14:41 BMI result Body Mass Index 36.3 Tobacco/Smoking Status: Tobacco use Status Tobacco use date assessed 08/03/23 11/22/23 14:41 Patient Tobacco Use Status Current everyday Tobacco 11/22/23 14:41 Tobacco use type Cigarette 11/22/23 14:41 e-Cigarette/Vaping Use Never Used 11/22/23 14:41 Tobacco cessation counseling provided: Yes Thrive Assessment: Date of Thrive Assessment Date Thrive assessed 08/03/23 11/22/23 14:41 Const General: healthy appearing, no acute distress, alert and awake Nutritional Appearance: well nourished Orientation/consciousness: oriented to person, oriented to place and oriented to time HENTN Ears: TM's normal bilaterally General nose exam: Normal nasal mucous membranes and turbinates present Eyes Conjunctivae: conjunctivae normal Sclerae: sclerae normal Pupils: Equal, round and reactive pupils present Neck Neck: Yes no lymphadenopathy and Yes no JVD Thyroid: Thyroid normal Carotids: no bruits Resp Effort & Inspection: normal respiratory effort and not tachypneic Auscultation: no crackles, no rales, no rhonchi and no wheezes Cardio Rate: regular rate Rhythm: regular rhythm Heart sounds: no murmurs and normal S1 and S2 GI Other: LARGE CENTRALIZED ABDOMINAL HERNIA NOTED- SO SEVERE THAT SEEMS TO BE CAUSING PRESSURE TO THE PELVIC REGION. Palpation (GI): Soft to palpation, nontender, no hepatomegaly and no splenomegaly Auscultation: normal bowel sounds Skin General skin exam: no rashes or lesions noted and dry skin Neuro General: oriented to person, oriented to place and oriented to time Cranial nerves: Yes Equal, round and reactive pupils present Speech: No Abnormal speech present Gait exam (Neuro): Normal gait present Motor exam (neuro): no tremor noted Extrem Right upper extremity: full ROM Left upper extremity: full ROM Right lower extremity: full ROM; no edema Left lower extremity: full ROM; no edema Psych Mental Status: mental status grossly normal Speech and movement: Normal speech and movement present Affect: normal affect Attitude: cooperative Thought process: Normal thought process present Results AMB Hemoglobin A1c AMB Hemoglobin A1c 9.9 % Last Edit by RADHA Chen on 11/22/23 15:05 Results Reviewed Results Reviewed: Laboratory Last Values Hgb A1c (Clinic) 9.9 % (4.0-6.0) H 11/22/23 14:42 Assessment and Plan Assessment & Plan (1) Incisional hernia: Code(s): K43.2 - Incisional hernia without obstruction or gangrene Qualifiers: Obstruction and gangrene presence: without obstruction or gangrene Qualified Code(s): K43.2 - Incisional hernia without obstruction or gangrene Plan: Unfortunate recently experienced enlargement in abdominal hernia. Does report pain all over abdomen. Continues to wait for reconstruction surgery her abdomen. At this point I am are trying to manage her pain for now on oxycodone 10 mg Q 8 hours p.r.n until she can get definitive treatment of abdominal hernia. She reports she is unable to be physically active to lose weight without having her pain controlled as her pain does not allow her to get up and out of her bed most of the time. She has followed up with hernia surgeon though was deemed not a candidate at this time for surgery due to her obesity/elevated BMI and uncontrolled diabetes. PLAN: She was unable to moujouro due to side effects. Will restart Ozempic for glycemic control and added benefit of weight loss. She will also follow-up with her certified alcohol drug counselor. She will work on smoking cessation as well. UNFORTUNATELY NOT ABLE TO FIND THE CORRECT ABDOMINAL BINDER ADD MEDICAL [employer]. SHE IS CONSIDERING FOLLOWING UP WITH [facility] HERNIA SURGEON TO GET ABDOMINAL BINDER. Thus far she has gotten cardiology clearance, hyperglycemia was been better controlled. Mild leukocytosis seems to be a chronic finding. . (2) Arm paresthesia, left: Code(s): R20.2 - Paresthesia of skin (3) Insulin dependent type 2 diabetes mellitus: Code(s): E11.9 - Type 2 diabetes mellitus without complications; Z79.4 - detention (current) use of insulin Plan: Had captured some glycemic control with mounjaro injections though unfortunately had side effects. Today's A1c at 9.9 from 7.8. . Unfortunately BMI is still above 30. She is willing to restart Ozempic in hopes there is no side effect. She will continue long-acting insulin and preprandial insulin. She will continue follow-up with her certified alcohol drug counselor. Will follow-up in 6 weeks to to do weight check. (4) Otitis externa: Code(s): H60.90 - Unspecified otitis externa, unspecified ear Qualifiers: Chronicity: acute Laterality: bilateral Otitis externa type: unspecified type Qualified Code(s): H60.503 - Unspecified acute noninfective otitis externa, bilateral Plan: Has an erythematous external ear canal. Will supply patient with antibiotic ear drops Orders: Orders AMB Hemoglobin A1c 11/22/23 E11.65 - Type 2 diabetes mellitus with hyperglycemia NE electromyogram (EMG) 11/22/23 R20.2 - Paresthesia of skin Medications: New ofloxacin 0.3% 10 drps otic (ears) DAILY 7 days 10 mL 0RF H60.503 - Unspecified acute noninfective otitis externa, bilateral Refilled semaglutide (Ozempic) 0.5 mg (0.736 mL) subcut QWEEK 4 weeks 3 mL 1RF E11.9 - Type 2 diabetes mellitus without complications, Z79.4 - detention (current) use of insulin oxycodone Partial Fill upon patient request. 10 mg PO Q8H 21 days 63 tabs 0RF pain K43.2 - Incisional hernia without obstruction or gangrene Coding Level of Care Code Est Pt Level 4 (50900) Diagnoses Incisional hernia, without obstruction or gangrene K43.2 Obstruction and gangrene presence: without obstruction or gangrene Arm paresthesia, left R20.2 Insulin dependent type 2 diabetes mellitus E11.9; Z79.4 Acute otitis externa of both ears, unspecified type H60.503 Chronicity: acute Laterality: bilateral Otitis externa type: unspecified type
== END 2023-11-22 15:38 | disposition home or self-care (01) ==
PROVIDERS: PCP Physician Assistant; Visit Provider Physician Assistant
DX: K43.2 Incisional hernia without obstruction or gangrene (principal); R20.2 Paresthesia of skin; E11.9 Type 2 diabetes mellitus without complications; Z79.4 Long term (current) use of insulin; H60.503 Unspecified acute noninfective otitis externa, bilateral
CPT/HCPCS: 83036; 99214

== ENCOUNTER 2023-12-12 09:47 | Outpatient (REF) | payer OTHER, SELFPAY ==
--- NOTE | 2023-12-12 09:50 | EMG_ITS ---
Left median and ulnar motor and sensory studies were performed. Left radial sensory study was performed. The needle examination was performed. IMPRESSION: 1. [id number] left median neuropathy across carpal tunnel. 2. Mild left ulnar neuropathy across cubital tunnel. MD FÁTIMA William/ARA / [id number]
== END 2023-12-12 09:48 | disposition home or self-care (01) ==
LOC: HO.NEURO 09:47
PROVIDERS: PCP Physician Assistant; Visit Provider Physician Assistant
DX: R20.2 Paresthesia of skin (principal)
CPT/HCPCS: 95886; 95909

== ENCOUNTER 2024-01-04 10:47 | Outpatient (AMB) | payer OTHER, SELFPAY ==
[2024-01-04 10:51] VITALS: BP 136/76; PULSE 88; O2SAT 98; BMI 35.4
--- NOTE | 2024-01-04 10:51 | A.OFFPC_ITS ---
Vital Signs 01/04/24 10:51 Height 5 ft 5 in Weight 213 lb BMI 35.4 BP 136/76 Blood Pressure Location Lt brachial Position Sitting Pulse 88 Pulse Source Pulse Oximeter Pulse Oximetry (%) 98 Oxygen Delivery Method Room Air Intake Visit Reasons: 6 Week F/U Allergies latex [LATEX] Allergy (Mild, Verified 01/04/24 11:03) RASH Iodinated Contrast Media [IV Contrast Dye] Allergy (Verified 01/04/24 11:03) Anaphylaxis amoxicillin Adverse Reaction (Unknown, Verified 01/04/24 11:03) vaginal infection dulaglutide [From Trulicity] Adverse Reaction (Unknown, Verified 01/04/24 11:03) vomitting, nausea semaglutide [From Ozempic] Adverse Reaction (Unknown, Verified 01/04/24 11:03) Chest pain, vomitting Medication List - Last Reconciled 01/04/24 by Cruz Navas PA-C abdominal binder As directed acetaminophen 500 - 1,000 mg (1 - 2 x 500 mg) PO Q6H PRN albuterol sulfate 2.5 mg (3 mL) inhalation Q6H PRN 30 days albuterol sulfate 90 mcg/actuation 1 inh inhalation QID PRN 30 days amlodipine 5 mg PO DAILY aspirin 81 mg PO DAILY blood sugar diagnostic (FreeStyle Test strips) testing 3x daily cholecalciferol (vitamin D3) (Vitamin D3) 25 mcg PO DAILY dexamethasone 1 mg PO ONCE epinephrine (EpiPen 2-Josué) 0.3 mg (0.3 mL) IM ONCE PRN famotidine 40 mg PO BEDTIME fenofibrate nanocrystallized 145 mg PO DAILY flash glucose scanning reader (PlayerizeStyle Tiff 2 [place]) 1 ea miscellaneous DIRECTED flash glucose sensor (FreeStyle Tiff 2 Sensor kit) DIRECTED EVERY 2 WEEKS fluticasone propion-salmeterol 250-50 mcg/dose (Advair Diskus) 1 ea inhalation BID 30 days insulin glargine (Lantus Solostar U-100 Insulin) 80 units (0.8 mL) subcut BEDTIME insulin lispro 20 - 30 units subcut TID meclizine 25 mg PO TID PRN 15 days metoprolol tartrate 25 mg PO DAILY miscellaneous medical supply 1 ea miscellaneous DAILY 99 days nitroglycerin 0.4 mg sublingual Q5M PRN 15 days ofloxacin 0.3% 10 drps otic (ears) DAILY 7 days ondansetron 8 mg PO Q12H PRN 10 days oxycodone 10 mg PO Q8H 21 days pen needle, diabetic (BD Ultra-Fine Macy Pen Needle) USE DIRECTED 4 TIMES DAILY polyethylene glycol 3350 (Miralax) 17 grams PO DAILY semaglutide (Ozempic) 0.5 mg (0.736 mL) subcut QWEEK 4 weeks Tobacco use date assessed: 08/03/23 Dental Screening Dental Screen Date: 10/05/23 HPI 6 Week F/U HPI Details Patient is a 47-year-old female here today for a 6 week follow-up visit.? Patient has a past medical history significant for obesity, type 2 diabetes, tobacco dependency, generalized anxiety disorder, chronic incisional abdominal hernia. Recently found to have left carpal tunnel syndrome and has upcoming appointment with orthopedics for an eval. Also has occupational therapy coming up. Concern--> also reports over last few weeks experiencing vertigo and dizziness associated with head movements and body position while lying down. Incisional hernia--> Has followed up with Dr. Ruiz abdominal hernia surgeon. Was not a candidate for surgery as she has gained weight, continues to smoke in her diabetes isn't well controlled. She was told she needed to get her diabetes better controlled and lose a significant amount of weight so that she would not have any complications after her hernia repair. NO FOLLOW-UP APPOINTMENT GIVEN WITH SURGEON. --> SHE CONTINUES WITH PAIN MANAGEMENT W ITH OXYCODONE 10 MG WHICH HAS GIVEN HER THE ABILITY TO BE MORE PHYSICALLY ACTIVE AND HAS BEEN WALKING MORE. SHE HAS LOST 3 LB SINCE LAST OFFICE VISIT. ALSO ON OZEMPIC 0.25 MG WEEKLY THAT HAS OFFERED HER THE ABILITY DID LOSE WEIGHT AND SOME GLYCEMIC CONTROL. SHE DOES REPORT SINCE BEING MORE PHYSICALLY ACTIVE SHE IS FELT DIFFERENT PAIN/SENSATION IN HER ABDOMEN. NO DEFECATION ISSUES REPORTED. --> SHE WILL REACH BACK OUT TO HER ABDOM INAL HERNIA SURGEON TO SEE IF SHE CAN GET BACK ON THE SCHEDULE TO DISCUSS A FINAL FIX OF HER LARGE INCISIONAL HERNIA. Type 2 diabetes: Patient continues to follow Endocrinology.. She reports her blood sugars have been better controlled. Her Lantus was changed to generic glargine and she does not feel that this insulin has been effective. Her sugars have been a bit better since starting GL P1. She is interested in increasing dose of Ozempic to 0.5 mg weekly for added benefit of weight loss and glycemic control. [facility] Medical History Itching Obesity (BMI 30-39.9) Sepsis Diverticulitis of both large and small intestine with perforation and abscess Diverticulitis of large intestine with abscess Morbid obesity with BMI of 50.0-59.9, adult Hypertension Vitamin D deficiency B12 deficiency Diabetic nephropathy associated with type 2 diabetes mellitus Dyslipidemia Hirsutism Diabetes type 2, uncontrolled Surgical History Hx of abdominal surgery Hx of umbilical hernia repair History of ankle surgery Hx of section Family History Father Throat cancer Cirrhosis Mother Diabetes Social History Household Members: None Housing: House Do you presently have visiting nurse or other home services: Yes Alcohol intake: former Patient Tobacco Use Status: Current everyday Tobacco user Tobacco use type: Cigarette Cigarettes Per Day: 5 Years Smoked: 30 e-Cigarette/Vaping Use: Never Used Second Hand Smoke Exposure: Yes Substance Use Type: Marijuana Advance Directives Date on File: 05/05/21 service: No Current occupational status: disabled Cognitive needs: No Hearing needs: No Vision needs: Yes Questionnaire PHQ-9 Over the last 2 weeks, how often have you been bothered by any of the following problems? 1. Little interest or pleasure in doing things: several days 2. Feeling down, depressed, or hopeless: several days 3. Trouble falling or staying asleep, or sleeping too much: several days 4. Feeling tired or having little energy: several days 5. Poor appetite or overeating: several days 6. Feeling bad about yourself - or that you are a failure or have let yourself or your family down: not at all 7. Trouble concentrating on things, such as reading the newspaper or watching television: not at all 8. Moving or speaking so slowly that other people could have noticed. Or the opposite - being so fidgety or restless that you have been moving around a lot more than usual: not at all 9. Thoughts that you would be better off or of hurting yourself in some way: not at all Total score: 5 Depression Screening Interpretation: Positive Depression Screening Follow-up: Existing condition Depression Screening Done: Yes 34439 - PHQ-9 Billing: Yes Source: Developed by Drs. Kahlil Thao, Patito Pradhan, Shine Carias and colleagues, with an educational kathleen from [employer]. Thrive Questionnaire Date Thrive assessed: 08/03/23 AUDIT C Alcohol Use Questionnaire (AUDIT-C) 1. How often do you have a drink containing alcohol?: Never 3. How often do you have six or more drinks on one occasion?: Never Total Score: 0 Score Reviewed/Action Taken: Yes RUI-7 AMB Questionnaire RUI-7 Date RUI - 7 assessed: 08/03/23 Source: Developed by Drs. Kahlil Thao, Patito Pradhan, Shine Carias and colleagues, with an educational kathleen from [employer]. Review of Systems Const Denies headache(s) Eyes Denies loss of vision ENT Denies vertigo, Denies dizziness, Denies headache(s) and Denies sore throat Card Denies chest pain, Denies leg edema and Denies lightheadedness Resp Denies cough, Denies hemoptysis and Denies wheezing GI Denies abdominal pain, Denies melena, Denies constipation, Denies diarrhea and Denies vomiting Denies urinary frequency, Denies dysuria and Denies urinary urgency Musc Denies arthralgias, Denies joint swelling, Denies numbness and Denies tingling Neuro Denies Abnormal speech present, Denies behavioral changes, Denies vertigo, Denies dizziness, Denies headache(s), Denies loss of vision, Denies memory loss, Denies numbness and Denies tingling Psych Denies anxiety, Denies behavioral changes, Denies depression, Denies memory loss and Denies panic attacks Abhijit/Lymph Denies easy bleeding and Denies easy bruising Aller/Immun Denies wheezing Physical exam (Primary Care) Vital Signs: Last Vital Signs Pulse 88 01/04/24 10:51 BP 136/76 01/04/24 10:51 Pulse Ox 98 01/04/24 10:51 Oxygen Delivery Method Room Air 01/04/24 10:51 BMI result Body Mass Index 35.4 Tobacco/Smoking Status: Tobacco use Status Tobacco use date assessed 08/03/23 01/04/24 10:53 Patient Tobacco Use Status Current everyday Tobacco 01/04/24 10:53 Tobacco use type Cigarette 01/04/24 10:53 e-Cigarette/Vaping Use Never Used 01/04/24 10:53 PHQ-9: PHQ-9 Score PHQ-9: Total score 5 01/04/24 11:01 Depression Screening Interpretation: Positive Depression Screening Follow-up: Existing condition Thrive Assessment: Date of Thrive Assessment Date Thrive assessed 08/03/23 01/04/24 10:53 Const General: healthy appearing, no acute distress, alert and awake Nutritional Appearance: well nourished Orientation/consciousness: oriented to person, oriented to place and oriented to time HENMT Ears: TM's normal bilaterally General nose exam: Normal nasal mucous membranes and turbinates present Eyes Conjunctivae: conjunctivae normal Sclerae: sclerae normal Pupils: Equal, round and reactive pupils present Neck Neck: Yes no lymphadenopathy and Yes no JVD Thyroid: Thyroid normal Carotids: no bruits Resp Effort & Inspection: normal respiratory effort and not tachypneic Auscultation: no crackles, no rales, no rhonchi and no wheezes Cardio Rate: regular rate Rhythm: regular rhythm Heart sounds: no murmurs and normal S1 and S2 GI Other: LARGE ABDOMINAL MASS MID LEFT LOWER ABDOMINAL QUADRANT. Palpation (GI): Soft to palpation, nontender, no hepatomegaly and no splenomegaly Auscultation: normal bowel sounds Skin General skin exam: no rashes or lesions noted and dry skin Neuro General: oriented to person, oriented to place and oriented to time Cranial nerves: Yes Equal, round and reactive pupils present Speech: No Abnormal speech present Gait exam (Neuro): Normal gait present Motor exam (neuro): no tremor noted Extrem Right upper extremity: full ROM Left upper extremity: full ROM Right lower extremity: full ROM; no edema Left lower extremity: full ROM; no edema Psych Mental Status: mental status grossly normal Speech and movement: Normal speech and movement present Affect: normal affect Attitude: cooperative Thought process: Normal thought process present Assessment and Plan Assessment & Plan (1) Incisional hernia: Code(s): K43.2 - Incisional hernia without obstruction or gangrene Qualifiers: Obstruction and gangrene presence: without obstruction or gangrene Qualified Code(s): K43.2 - Incisional hernia without obstruction or gangrene Plan: Unfortunate recently experienced enlargement in abdominal hernia. Does report pain all over abdomen. Continues to wait for reconstruction surgery her abdomen. At this point I am are trying to manage her pain for now on oxycodone 10 mg Q 8 hours p.r.n until she can get definitive treatment of abdominal hernia. She reports she is unable to be physically active to lose weight without having her pain controlled as her pain does not allow her to get up and out of her bed most of the time. She has followed up with hernia surgeon though was deemed not a candidate at this time for surgery due to her obesity/elevated BMI and uncontrolled diabetes. PLAN: Will increase dose of Ozempic as she has found does she has lost weight and sugars have been a bit better.. WILL TRY TO REACH BACK OUT TO HER ABDOMINAL HERNIA SURGEON FOR RE-EVALUATION WILL TRY HER HARD TO QUIT SMOKING . Thus far she has gotten cardiology clearance, hyperglycemia was been better controlled. Mild leukocytosis seems to be a chronic finding. . (2) BPPV (benign paroxysmal positional vertigo): Code(s): H81.10 - Benign paroxysmal vertigo, unspecified ear Qualifiers: Laterality: bilateral Qualified Code(s): H81.13 - Benign paroxysmal vertigo, bilateral Plan: Patient's signs and symptoms most consistent with a benign paroxysmal positional vertigo. Does have meclizine available to her. Advised on Sergio maneuvers to be done at home. Will refer to vestibular therapy as well. (3) Insulin dependent type 2 diabetes mellitus: Code(s): E11.9 - Type 2 diabetes mellitus without complications; Z79.4 - detention (current) use of insulin Plan: Had captured some glycemic control with mounjaro injections though unfortunately had side effects. MOST RECENT A1C AT 9.9. WILL INCREASE HER OZEMPIC DOSE 0.5 WEEKLY Has upcoming appointment with her sand screener operator Will follow-up in 8weeks to to do weight check. Orders: Orders PT Evaluation and Treatment Today H81.13 - Benign paroxysmal vertigo, bilateral Medications: Refilled semaglutide (Ozempic) 0.5 mg (0.736 mL) subcut QWEEK 4 weeks 3 mL 2RF E11.9 - Type 2 diabetes mellitus without complications, Z79.4 - detention (current) use of insulin Coding Level of Care Code Est Pt Level 4 (49052) Complex EM visit Add On G2211 Diagnoses Incisional hernia, without obstruction or gangrene K43.2 Obstruction and gangrene presence: without obstruction or gangrene Benign paroxysmal positional vertigo due to bilateral vestibular disorder H81.13 Laterality: bilateral Insulin dependent type 2 diabetes mellitus E11.9; Z79.4
== END 2024-01-04 11:35 | disposition home or self-care (01) ==
PROVIDERS: PCP Physician Assistant; Visit Provider Physician Assistant
DX: K43.2 Incisional hernia without obstruction or gangrene (principal); E11.9 Type 2 diabetes mellitus without complications; Z79.4 Long term (current) use of insulin; H81.13 Benign paroxysmal vertigo, bilateral
CPT/HCPCS: 99214; G2211

== ENCOUNTER 2024-01-09 13:25 | Outpatient (AMB) | payer OTHER, SELFPAY ==
[2024-01-09 13:29] VITALS: BP 138/90; PULSE 85; BMI 35.3
--- NOTE | 2024-01-09 13:29 | A.OFFVIS_ITS ---
Vital Signs 01/09/24 13:29 Height 5 ft 5 in Weight 212 lb 1.355 oz BMI 35.3 BP 138/90 H Blood Pressure Location Lt brachial Position Sitting Pulse 85 Pulse Source Pulse Oximeter Intake Visit Reasons: 6 month follow up Resource Conservation Manager Required: No Allergies latex [LATEX] Allergy (Mild, Verified 01/09/24 13:32) RASH Iodinated Contrast Media [IV Contrast Dye] Allergy (Verified 01/09/24 13:32) Anaphylaxis amoxicillin Adverse Reaction (Unknown, Verified 01/09/24 13:32) vaginal infection dulaglutide [From Trulicity] Adverse Reaction (Unknown, Verified 01/09/24 13:32) vomitting, nausea semaglutide [From Ozempic] Adverse Reaction (Unknown, Verified 01/09/24 13:32) Chest pain, vomitting Medication List - Last Reconciled 01/09/24 by Arelis Hamilton NP-C abdominal binder As directed acetaminophen 500 - 1,000 mg (1 - 2 x 500 mg) PO Q6H PRN albuterol sulfate 2.5 mg (3 mL) inhalation Q6H PRN 30 days albuterol sulfate 90 mcg/actuation 1 inh inhalation QID PRN 30 days blood sugar diagnostic (FreeStyle Test strips) testing 3x daily epinephrine (EpiPen 2-Josué) 0.3 mg (0.3 mL) IM ONCE PRN flash glucose scanning reader (FreeStyle Tiff 2 [place]) 1 ea miscellaneous DIRECTED flash glucose sensor (FreeStyle Tiff 2 Sensor kit) DIRECTED EVERY 2 WEEKS fluticasone propion-salmeterol 250-50 mcg/dose (Advair Diskus) 1 ea inhalation BID 30 days insulin glargine (Lantus Solostar U-100 Insulin) 80 units (0.8 mL) subcut BEDTIME insulin lispro 20 - 30 units subcut TID nitroglycerin 0.4 mg sublingual Q5M PRN 15 days ofloxacin 0.3% 10 drps otic (ears) DAILY 7 days oxycodone 10 mg PO Q8H 21 days oxycodone 5 mg PO BID PRN pen needle, diabetic (BD Ultra-Fine Macy Pen Needle) USE DIRECTED 4 TIMES DAILY semaglutide (Ozempic) 0.5 mg (0.736 mL) subcut QWEEK 4 weeks HPI HPI 6 month follow up: Details: Mckenzie is a 48-year-old female with past medical history of hypertension, hyperlipidemia, diabetes, smoking, obesity, atypical chest discomfort, heart palpitations/brief SVT who presents for follow-up. She is planning to have abdominal hernia repair in the near future. Today she reports that she has not been able to have her abdominal surgery as of yet. She needed to lose weight and get her diabetes under control. She also was told to quit smoking. She has been working on weight loss and hopes to have surgery in the next 2 months. No chest discomfort at rest or with activity. She does notice rapid heartbeats at times. She describes herself as anxious and she does get panic attacks. She has not had sustained rapid heart palpitations. She has had some lightheadedness which she describes as vertigo. No presyncope, syncope, falls. No shortness of breath, PND, orthopnea or edema. She stopped taking several medications including aspirin, fenofibrate, meclizine, metoprolol. She has been taking her insulin and inhalers. She tells me her medications were making her feel worse so she stopped most of them. She has been feeling better overall. [facility] Medical History Itching Obesity (BMI 30-39.9) Sepsis Diverticulitis of both large and small intestine with perforation and abscess Diverticulitis of large intestine with abscess Morbid obesity with BMI of 50.0-59.9, adult Hypertension Vitamin D deficiency B12 deficiency Diabetic nephropathy associated with type 2 diabetes mellitus Dyslipidemia Hirsutism Diabetes type 2, uncontrolled Surgical History Hx of abdominal surgery Hx of umbilical hernia repair History of ankle surgery Hx of section Family History Father Throat cancer Cirrhosis Mother Diabetes Social History Household Members: None Housing: House Do you presently have visiting nurse or other home services: Yes Alcohol intake: former Patient Tobacco Use Status: Current everyday Tobacco user Tobacco use type: Cigarette Cigarettes Per Day: 5 Years Smoked: 30 e-Cigarette/Vaping Use: Never Used Second Hand Smoke Exposure: Yes Substance Use Type: Marijuana Advance Directives Date on File: 05/05/21 service: No Current occupational status: disabled Cognitive needs: No Hearing needs: No Vision needs: Yes Review of Systems ENT Reports dizziness Card Denies chest pain, Denies chest pain at rest, Denies chest pain with activity, Denies rapid heart rate, Denies pedal edema, Denies edema, Denies leg edema, Denies lightheadedness, Denies palpitations, Denies dyspnea, Denies dyspnea on exertion and Denies orthopnea Resp Denies cough, Denies dyspnea and Denies dyspnea on exertion GI Denies hematochezia and Denies change in stool character Musc Denies abnormal gait, Reports limited range of motion, Reports muscle cramps, Denies muscle weakness, Denies numbness, Denies radiating pain into limb, Denies stiffness and Denies tingling Neuro Denies abnormal gait, Reports dizziness, Denies numbness and Denies tingling Endo Denies palpitations Physical Exam Const General: no acute distress Orientation/consciousness: patient oriented x3 Neck Neck: Yes normal visual inspection and Yes no JVD Resp Effort & Inspection: normal respiratory effort Auscultation: clear to auscultation bilaterally, no rales, no rhonchi and no wheezes Cardio Jugular venous distension: no JVD Rate: tachycardic Rhythm: regular rhythm Heart sounds: S1 normal heart sound present, S2 normal heart sound present, no murmurs and no rubs GI Inspection: Yes normal to inspection Neuro General: patient oriented x3 Extrem General: Yes normal to inspection Psych Appearance: grossly normal Mental Status: mental status grossly normal Speech and movement: Normal speech and movement present Assessment & Plan Assessment & Plan (1) Heart palpitations: Code(s): R00.2 - Palpitations Category: Medical Plan: History of heart palpitations like her heart is beating fast. This causes discomfort and anxiety followed by fatigue. Holter monitor done on 01/25/2023 for 3 days showed sinus rhythm with average heart rate 92, heart rate range 73 to 139, rare SVE, 12 beat atrial tach. She has been very anxious and bothered by her fast heartbeats. On prior visit she was taken off amlodipine and change to diltiazem to help reduce number of heart palpitations and also help control blood pressure. She stated that it made her heart palpitations worse. She was then started on metoprolol which she also says made her palpitations worse. She is not on any heart rate slowing medications at this time. She continues to have some palpitations but she has been working on controlling her anxiety levels with some success. Will continue to treat conservatively. Reviewed the benefits of caffeine cessation, stress reduction activities. Cardiology follow- up in 6 months, sooner if needed (2) Chest pain: Code(s): R07.9 - Chest pain, unspecified Category: Medical Qualifiers: Chest pain type: unspecified Qualified Code(s): R07.9 - Chest pain, unspecified Plan: Prior reports of chest discomfort, like squeezing. She has multiple cardiac risk factors including obesity, smoking, hypertension, hyperlipidemia and diabetes. Echocardiogram done at [facility] on 09/21/2022 shows normal EF, no regional wall motion abnormality. CTA of the coronary arteries done on 12/16/2022 showed moderate to severe study limitations as her heart rate was not well controlled. Test did show Mild calcific plaque seen in the proximal segment of the distal LAD, less than 25% stenosis. No additional definite plaque noted. She continued to report symptoms and a Nuclear stress test done 07/28/2023 showing normal myocardial perfusion imaging. Offered reassurance that her chest discomfort is most likely noncardiac in nature. She has only mild nonobstructive CAD. Continue with risk factor modification. Recommend she restart aspirin 81 mg daily. Will order a fasting lipid profile. She had been on fenofibrate however it no longer is. She will likely benefit from statin. Will wait on test results to see her current values prior to ordering. Continue to work on weight loss, continue smoking cessation. Hemoglobin A1c goal less than 7. Followed by PCP. Signs and symptoms of true angina reviewed with her. Emergency care if needed for symptoms. (3) Atrial tachycardia: Code(s): I47.1 - Supraventricular tachycardia Category: Medical Plan: Brief episode seen on Holter monitor (4) Hypertension: Code(s): I10 - Essential (primary) hypertension Category: Medical Qualifiers: Hypertension type: primary hypertension Qualified Code(s): I10 - Essential (primary) hypertension Plan: Well controlled at present. Blood pressure recheck done by me 134/86. No med changes at this time. (5) Dyslipidemia: Code(s): E78.5 - Hyperlipidemia, unspecified Category: Medical Plan: As above (6) Preop cardiovascular exam: Code(s): Z01.810 - Encounter for preprocedural cardiovascular examination Category: Medical Plan: Preop for incisional hernia repair. From a cardiology perspective she may proceed with hernia repair surgery with a low to intermediate cardiac risk. Aspirin can be held as needed. Call/ consult cardiology if needed. Plan Time spent on chart review, documentation, interview assessment Orders: Orders Lipid Panel Today E78.5 - Hyperlipidemia, unspecified Coding Level of Care Code Est Pt Level 4 (80798) Diagnoses Heart palpitations R00.2 Chest pain, unspecified type R07.9 Chest pain type: unspecified Atrial tachycardia I47.1 Primary hypertension I10 Hypertension type: primary hypertension Dyslipidemia E78.5 Preop cardiovascular exam Z01.810 Time Spent (min) 28
== END 2024-01-09 14:06 | disposition home or self-care (01) ==
PROVIDERS: PCP Physician Assistant; Visit Provider Nurse Practitioner Family
DX: R00.2 Palpitations (principal); R07.9 Chest pain, unspecified; I47.10 Supraventricular tachycardia, unspecified; I10 Essential (primary) hypertension; E78.5 Hyperlipidemia, unspecified; Z01.810 Encounter for preprocedural cardiovascular examination
CPT/HCPCS: 99214

== ENCOUNTER → 2024-01-09 13:25 | Outpatient (BNVA) | payer OTHER, SELFPAY | PROVIDERS: PCP Physician Assistant; Visit Provider Nurse Practitioner Family | DX: Z01.810 Encounter for preprocedural cardiovascular examination (principal); R00.2 Palpitations; R07.9 Chest pain, unspecified; I47.10 Supraventricular tachycardia, unspecified; I10 Essential (primary) hypertension; E78.5 Hyperlipidemia, unspecified | CPT/HCPCS: 99212 ==

== ENCOUNTER 2024-01-18 15:06 | Outpatient (AMB) | payer OTHER, SELFPAY ==
--- NOTE | 2024-01-18 15:10 | A.OFFVIS_ITS ---
Vital Signs 01/18/24 15:19 Height 5 ft 5 in Weight 216 lb 0.848 oz BMI 35.9 BP 132/84 Pulse 78 Intake Visit Reasons: F/u T2DM/CONFIRMED Intake Note: Patient presents today for a follow-up on DM TYPE 2: Last Diabetic Eye exam: 12/2023, pt having eye surgery on 02/26/2024 Last Podiatry Visit: DUE Random Glucose: 133mg/dL, Today HgA1c: 9.9% 11/22/23 Grade Setter Required: No Accompanied by: Self / Same As Patient Allergies latex [LATEX] Allergy (Mild, Verified 01/18/24 15:20) RASH Iodinated Contrast Media [IV Contrast Dye] Allergy (Verified 01/18/24 15:20) Anaphylaxis amoxicillin Adverse Reaction (Unknown, Verified 01/18/24 15:20) vaginal infection dulaglutide [From Trulicity] Adverse Reaction (Unknown, Verified 01/18/24 15:20) vomitting, nausea semaglutide [From Ozempic] Adverse Reaction (Unknown, Verified 01/18/24 15:20) Chest pain, vomitting Medication List - Last Reconciled 01/19/24 by Mara Segura MD abdominal binder As directed acetaminophen 500 - 1,000 mg (1 - 2 x 500 mg) PO Q6H PRN albuterol sulfate 2.5 mg (3 mL) inhalation Q6H PRN 30 days albuterol sulfate 90 mcg/actuation 1 inh inhalation QID PRN 30 days blood sugar diagnostic (FreeStyle Test strips) testing 3x daily epinephrine (EpiPen 2-Josué) 0.3 mg (0.3 mL) IM ONCE PRN flash glucose scanning reader (FreeStyle Tiff 2 Eldridge) 1 ea miscellaneous DIRECTED flash glucose sensor (FreeStyle Tiff 2 Sensor kit) DIRECTED EVERY 2 WEEKS fluticasone propion-salmeterol 250-50 mcg/dose (Advair Diskus) 1 ea inhalation BID 30 days insulin glargine (Lantus Solostar U-100 Insulin) 80 units (0.8 mL) subcut BEDTIME insulin lispro 20 - 30 units subcut TID nitroglycerin 0.4 mg sublingual Q5M PRN 15 days oxycodone 10 mg PO Q8H 21 days oxycodone 5 mg PO BID PRN pen needle, diabetic (BD Ultra-Fine Macy Pen Needle) USE DIRECTED 4 TIMES DAILY semaglutide (Ozempic) 1 mg (0.75 mL) subcut QWEEK HPI Comments Details: Patient is a 48-year-old female with DM type 2 diagnosed who presents for management of diabetes. Past medical history: DM2, HTN, Hirsutism, dyslipidemia, vitamin d deficiency. Micro and macrovascular complications: Nephropathy Diabetes medications: Currently only taking her ozempic. She is prescribed lantus 80 units and 15-20 humalog with meals. Had dizziness with Trulicity. Intolerant of mounjaro. Previous trial of ozempic did not tolerate but tolerated 0.25 and has had 2 doses of 0.5 and doing well. Blood glucose monitoring: Has [employer] Tiff but last two sensors have not worked/fallen off. She has taken her fingerstick only a few times over the past two weeks. The ones done in the AM were 129 and 148. Average blood glucose 181. Her last A1C was 9.9% on 11/22/2023. She tells me she was stress eating at the time and was not really taking any diabetic meds Symptoms reported: numbness, tingling, cramping in lower extremities Hypoglycemia: denies Hyperglycemia: denies urinary frequency, denies excessive thirst Optho: says utd Does not see podiatry ROS see HPI PHYSICAL EXAM: GENERAL: Alert and oriented x 3. NAD EYES: EOMI. Anicteric. HENT: Moist mucous membranes. No scleral icterus. No cervical lymphadenopathy. LUNGS: Clear to auscultation bilaterally. CARDIOVASCULAR: Regular rate and rhythm. No murmur. No JVD. ABDOMEN: Soft, +hernia EXTREMITIES: No edema. Non-tender. SKIN: No rashes or lesions. Warm. NEUROLOGIC: No focal neurological deficits. CN II-XII grossly intact PSYCHIATRIC: Cooperative. Appropriate mood and affect [facility] Medical History Itching Obesity (BMI 30-39.9) Sepsis Diverticulitis of both large and small intestine with perforation and abscess Diverticulitis of large intestine with abscess Morbid obesity with BMI of 50.0-59.9, adult Hypertension Vitamin D deficiency B12 deficiency Diabetic nephropathy associated with type 2 diabetes mellitus Dyslipidemia Hirsutism Diabetes type 2, uncontrolled Surgical History Hx of abdominal surgery Hx of umbilical hernia repair History of ankle surgery Hx of section Family History Father Throat cancer Cirrhosis Mother Diabetes Social History Household Members: None Housing: House Do you presently have visiting nurse or other home services: Yes Alcohol intake: former Patient Tobacco Use Status: Current everyday Tobacco user Tobacco use type: Cigarette Cigarettes Per Day: 5 Years Smoked: 30 e-Cigarette/Vaping Use: Never Used Second Hand Smoke Exposure: Yes Substance Use Type: Marijuana Advance Directives Date on File: 05/05/21 service: No Current occupational status: disabled Cognitive needs: No Hearing needs: No Vision needs: Yes Physical Exam Vital Signs: Last Vital Signs Pulse 78 01/18/24 15:19 BP 132/84 01/18/24 15:19 BMI result Body Mass Index 35.9 Results Reviewed Results Reviewed: Laboratory Last Values Glucose (Clinic) 133 mg/dL (60-115) H 01/18/24 15:26 Assessment & Plan Assessment & Plan (1) Diabetes type 2, uncontrolled: Code(s): E11.65 - Type 2 diabetes mellitus with hyperglycemia Category: Medical Qualifiers: Glycemic state: with hyperglycemia Qualified Code(s): E11.65 - Type 2 diabetes mellitus with hyperglycemia Plan: Has tolerated two doses of 0.5 ozempic. Since this is all that she is compliant with will increase to 1.0 weekly. Advised to return in two weeks to review fasting readings (or sensor if insurance approves early) (2) Insulin long-term use: Code(s): Z79.4 - custodial (current) use of insulin Category: Medical Plan: Holding at the moment (3) Diabetic nephropathy associated with type 2 diabetes mellitus: Code(s): E11.21 - Type 2 diabetes mellitus with diabetic nephropathy Category: Medical Plan: Goal A1C <7.0. Declines BILLIE Orders: Orders Hemoglobin A1c 2 Months E11.65 - Type 2 diabetes mellitus with hyperglycemia, E78.5 - Hyperlipidemia, unspecified, R79.89 - Other specified abnormal findings of blood chemistry Comprehensive Met. Panel 2 Months E11.65 - Type 2 diabetes mellitus with hyperg lycemia, E78.5 - Hyperlipidemia, unspecified, R79.89 - Other specified abnormal findings of blood chemistry Lipid Panel 2 Months E11.65 - Type 2 diabetes mellitus with hyperglycemia, E78.5 - Hyperlipidemia, unspecified, R79.89 - Other specified abnormal findings of blood chemistry TSH reflex Free T4 2 Months E11.65 - Type 2 diabetes mellitus with hyperglycemia, E78.5 - Hyperlipidemia, unspecified, R79.89 - Other specified abnormal findings of blood chemistry Microalbumin, Random (w Creat) 2 Months E11.65 - Type 2 diabetes mellitus with hyperglycemia, E78.5 - Hyperlipidemia, unspecified, R79.89 - Other specified abnormal findings of blood chemistry Medications: New semaglutide (Ozempic) 1 mg (0.75 mL) subcut QWEEK 3 mL 0RF Refilled flash glucose sensor (FreeStyle Tiff 2 Sensor kit) DIRECTED EVERY 2 WEEKS 6 ea 3RF E11.21 - Type 2 diabetes mellitus with diabetic nephropathy flash glucose sensor (FreeStyle Tiff 2 Sensor kit) DIRECTED EVERY 2 WEEKS 6 ea 3RF E11.21 - Type 2 diabetes mellitus with diabetic nephropathy Coding Level of Care Code Tele Est Pt Level 5 (79715) Diagnoses Uncontrolled type 2 diabetes mellitus with hyperglycemia E11.65 Glycemic state: with hyperglycemia Insulin long-term use Z79.4 Diabetic nephropathy associated with type 2 diabetes mellitus E11.21 Time Spent (min) 55
[2024-01-18 15:19] VITALS: BP 132/84; PULSE 78; BMI 35.9
[2024-01-18 15:30] LABS: Glucose, Whole Blood 133 mg/dL (60-115)
== END 2024-01-18 15:50 | disposition home or self-care (01) ==
PROVIDERS: PCP Physician Assistant; Visit Provider Internal Medicine
DX: E11.65 Type 2 diabetes mellitus with hyperglycemia (principal); Z79.4 Long term (current) use of insulin; E11.21 Type 2 diabetes mellitus with diabetic nephropathy
CPT/HCPCS: 99215

== ENCOUNTER → 2024-01-18 15:06 | Outpatient (BNVA) | payer OTHER, SELFPAY | PROVIDERS: PCP Physician Assistant; Visit Provider Internal Medicine | DX: E11.65 Type 2 diabetes mellitus with hyperglycemia (principal); E11.21 Type 2 diabetes mellitus with diabetic nephropathy; Z79.4 Long term (current) use of insulin | CPT/HCPCS: 82947 ==

== ENCOUNTER 2024-02-01 14:51 | Outpatient (AMB) | payer OTHER, SELFPAY ==
--- NOTE | 2024-02-01 15:00 | MHC.OFFVIS ---
Vital Signs 02/01/24 15:01 Height 5 ft 5 in Weight 208 lb 15.971 oz BMI 34.8 BP 142/90 H Blood Pressure Location Rt brachial Position Sitting Pulse 98 Pulse Source Pulse Oximeter Intake Visit Reasons: f/up-DM/CONFIRMED Intake Note: Patient presents here today to for a follow-up on DM TYPE 2. Most recent Diabetic Eye Exam: 11/2023 Most recent Podiatry Exam: Does not see a Mirror Painter Most recent HbA1c: 9.9 %, 11/22/2023 Random Glucose- 130 mg/dL Traffic Agent Required: No Accompanied by: Self / Same As Patient Allergies latex [LATEX] Allergy (Mild, Verified 02/01/24 15:07) RASH Iodinated Contrast Media [IV Contrast Dye] Allergy (Verified 02/01/24 15:07) Anaphylaxis amoxicillin Adverse Reaction (Unknown, Verified 02/01/24 15:07) vaginal infection dulaglutide [From Trulicity] Adverse Reaction (Unknown, Verified 02/01/24 15:07) vomitting, nausea semaglutide [From Ozempic] Adverse Reaction (Unknown, Verified 02/01/24 15:07) Chest pain, vomitting HPI Comments Details: Patient is a 48-year-old female with DM type 2 diagnosed who presents for management of diabetes. Past medical history: DM2, HTN, Hirsutism, dyslipidemia, vitamin d deficiency. Micro and macrovascular complications: Nephropathy Diabetes medications: Currently only taking her ozempic 0.5mg weekly. At visit two weeks ago we planned on increasing to 1mg weekly. However she has continued to improve diet and started exercising. She has been having frequent readings in the 50s with minimal minutes exercising despite if she snacks prior to the work out. She is prescribed lantus 80 units and 15-20 humalog with meals. Had dizziness with Trulicity. Intolerant of mounjaro. Blood glucose monitoring: Back on the [employer] Tiff. At last visit she had had two occurrences of sensors have not worked/fallen off. Last two weeks with 82% range. 6% low, 1% very low, GMI 6.5%. She had taken her fingerstick only a few times over the past two weeks. The ones done in the AM were 129 and 148. Average blood glucose 181. Her last A1C was 9.9% on 11/22/2023. She tells me she was stress eating at the time and was not really taking any diabetic meds Symptoms reported: numbness, tingling, cramping in lower extremities Hypoglycemia: yes. drinks orange juice which brings it up but doesnt sustain long enough Hyperglycemia: denies urinary frequency, denies excessive thirst Optho: says utd Does not see podiatry ROS see HPI PHYSICAL EXAM: GENERAL: Alert and oriented x 3. NAD EYES: EOMI. Anicteric. HENT: Moist mucous membranes. No scleral icterus. No cervical lymphadenopathy. LUNGS: Clear to auscultation bilaterally. CARDIOVASCULAR: Regular rate and rhythm. No murmur. No JVD. ABDOMEN: Soft, +hernia EXTREMITIES: No edema. Non-tender. SKIN: No rashes or lesions. Warm. NEUROLOGIC: No focal neurological deficits. CN II-XII grossly intact PSYCHIATRIC: Cooperative. Appropriate mood and affect [facility] Medical History Itching Obesity (BMI 30-39.9) Sepsis Diverticulitis of both large and small intestine with perforation and abscess Diverticulitis of large intestine with abscess Morbid obesity with BMI of 50.0-59.9, adult Hypertension Vitamin D deficiency B12 deficiency Diabetic nephropathy associated with type 2 diabetes mellitus Dyslipidemia Hirsutism Diabetes type 2, uncontrolled Surgical History Hx of abdominal surgery Hx of umbilical hernia repair History of ankle surgery Hx of section Family History Father Throat cancer Cirrhosis Mother Diabetes Social History Household Members: None Housing: House Do you presently have visiting nurse or other home services: Yes Alcohol intake: former Patient Tobacco Use Status: Current everyday Tobacco user Tobacco use type: Cigarette Cigarettes Per Day: 5 Years Smoked: 30 e-Cigarette/Vaping Use: Never Used Second Hand Smoke Exposure: Yes Substance Use Type: Marijuana Advance Directives Date on File: 05/05/21 service: No Current occupational status: disabled Cognitive needs: No Hearing needs: No Vision needs: Yes Physical Exam Vital Signs: Last Vital Signs Pulse 98 02/01/24 15:01 BP 142/90 H 02/01/24 15:01 BMI result Body Mass Index 34.8 Results Reviewed Results Reviewed: Laboratory Last Values Glucose (Clinic) 130 mg/dL (60-115) H 02/01/24 15:09 Assessment & Plan Assessment & Plan (1) Type 2 diabetes, controlled, with peripheral neuropathy: Code(s): E11.42 - Type 2 diabetes mellitus with diabetic polyneuropathy Plan: Patient GMI 6.5%-A1C was 9.9% in November. Making great strides with diet, exercise and medication compliance. that said she is getting too many lows. Her next dose of ozempic is due. She will return down to 0.25mg and f/up 3 months, sooner if needed. Medications: New FreeStyle Precision Haresh Strips (blood sugar diagnostic) As needed up to four times daily 50 ea 3RF NS E11.65 - Type 2 diabetes mellitus with hyperglycemia, E11.9 - Type 2 diabetes mellitus without complications, Z79.4 - snf (current) use of insulin glucose until symptoms of low blood sugar are controlled 4 grams PO Q15M PRN 30 tabs 3RF hypoglycemia Changed From semaglutide (Ozempic) 1 mg (0.75 mL) subcut QWEEK 3 mL 0RF To semaglutide (Ozempic) 0.25 mg (0.1875 mL) subcut QWEEK 3 mL 0RF Coding Level of Care Code Est Pt Level 4 (92773) Diagnoses Type 2 diabetes, controlled, with peripheral neuropathy E11.42
[2024-02-01 15:01] VITALS: BP 142/90; PULSE 98; BMI 34.8
[2024-02-01 15:13] LABS: Glucose, Whole Blood 130 mg/dL (60-115)
== END 2024-02-01 15:49 | disposition home or self-care (01) ==
PROVIDERS: PCP Physician Assistant; Visit Provider Internal Medicine
DX: E11.42 Type 2 diabetes mellitus with diabetic polyneuropathy (principal)
CPT/HCPCS: 99214

== ENCOUNTER → 2024-02-01 14:51 | Outpatient (BNVA) | payer OTHER, SELFPAY | PROVIDERS: PCP Physician Assistant; Visit Provider Internal Medicine | DX: E11.42 Type 2 diabetes mellitus with diabetic polyneuropathy (principal) | CPT/HCPCS: 82947; 99212 ==

== ENCOUNTER 2024-02-06 10:24 | Outpatient (AMB) | payer OTHER, SELFPAY ==
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
== END 2024-02-06 11:14 | disposition home or self-care (01) ==
PROVIDERS: PCP Physician Assistant
DX: G56.02 Carpal tunnel syndrome, left upper limb (principal); G56.22 Lesion of ulnar nerve, left upper limb; S69.91XA Unspecified injury of right wrist, hand and finger(s), initial encounter
CPT/HCPCS: 99203

== ENCOUNTER → 2024-02-06 10:24 | Outpatient (BNVA) | payer OTHER, SELFPAY | PROVIDERS: PCP Physician Assistant; Visit Provider Orthopaedic Surgery | DX: G56.22 Lesion of ulnar nerve, left upper limb (principal); G56.02 Carpal tunnel syndrome, left upper limb; S61.511A Laceration without foreign body of right wrist, initial encounter | CPT/HCPCS: 99202 ==

== ENCOUNTER 2024-02-29 10:51 | Outpatient (AMB) | payer OTHER, SELFPAY ==
[2024-02-29 11:15] VITALS: BP 126/86; PULSE 104; O2SAT 98; BMI 36.2
--- NOTE | 2024-02-29 11:15 | MHC.PC.OV ---
Vital Signs 02/29/24 11:15 Height 5 ft 5 in Weight 217 lb 8 oz BMI 36.2 BP 126/86 Blood Pressure Location Lt brachial Position Sitting Pulse 104 H Pulse Source Pulse Oximeter Pulse Oximetry (%) 98 Oxygen Delivery Method Room Air Intake Visit Reasons: 8 Week F/U Certified Personal Chef Required: No Accompanied by: Self / Same As Patient Allergies latex [LATEX] Allergy (Mild, Verified 02/29/24 11:39) RASH Iodinated Contrast Media [IV Contrast Dye] Allergy (Verified 02/29/24 11:39) Anaphylaxis amoxicillin Adverse Reaction (Unknown, Verified 02/29/24 11:39) vaginal infection dulaglutide [From Trulicity] Adverse Reaction (Unknown, Verified 02/29/24 11:39) vomitting, nausea semaglutide [From Ozempic] Adverse Reaction (Unknown, Verified 02/29/24 11:39) Chest pain, vomitting Medication List - Last Reconciled 02/29/24 by Cruz Navas PA-C abdominal binder As directed acetaminophen 500 - 1,000 mg (1 - 2 x 500 mg) PO Q6H PRN albuterol sulfate 2.5 mg (3 mL) inhalation Q6H PRN 30 days albuterol sulfate 90 mcg/actuation 1 inh inhalation QID PRN 30 days blood sugar diagnostic (FreeStyle Test strips) testing 3x daily epinephrine (EpiPen 2-Josué) 0.3 mg (0.3 mL) IM ONCE PRN flash glucose scanning reader (FreeStyle Tiff 2 [place]) 1 ea miscellaneous DIRECTED flash glucose sensor (FreeStyle Tiff 2 Sensor kit) DIRECTED EVERY 2 WEEKS fluticasone propion-salmeterol 250-50 mcg/dose (Advair Diskus) 1 ea inhalation BID 30 days FreeStyle Precision Haresh Strips (blood sugar diagnostic) As needed up to four times daily NS glucose 4 grams PO Q15M PRN insulin glargine (Lantus Solostar U-100 Insulin) 80 units (0.8 mL) subcut BEDTIME insulin lispro 20 - 30 units subcut TID nitroglycerin 0.4 mg sublingual Q5M PRN 15 days oxycodone 10 mg PO Q8H 21 days pen needle, diabetic (BD Ultra-Fine Macy Pen Needle) USE DIRECTED 4 TIMES DAILY semaglutide (Ozempic) 0.25 mg (0.1875 mL) subcut QWEEK semaglutide (Ozempic) 0.25 mg (0.1875 mL) subcut QWEEK Tobacco use date assessed: 08/03/23 Dental Screening Dental Screen Date: 10/05/23 HPI 8 Week F/U HPI Details Patient is a 48-year-old female here today for a 8 week follow-up visit.? Patient has a past medical history significant for obesity, type 2 diabetes, tobacco dependency, generalized anxiety disorder, chronic incisional abdominal hernia. Has followed up with Orthopedics about her carpal tunnel syndrome and was not candidate for surgery at this time due to uncontrolled type 2 diabetes. Concern--> patient has been doing aquatic therapy on her own at local gym which she reports feels well though when goes gets out of the water she feels her incisional hernia in largest and ribs her abdominal wall. She has stopped using aquatic therapy for now. Incisional hernia--> she has reestablish care with [facility] general surgeon. Was was previous not a candidate for surgery as she has gained weight, continues to smoke in her diabetes isn't well controlled. She was told she needed to get her diabetes better controlled and lose a significant amount of weight so that she would not have any complications after her hernia repair. NO FOLLOW-UP APPOINTMENT GIVEN WITH SURGEON. --> SHE CONTINUES WITH PAIN MANAGEMENT WITH OXYCODONE 10 MG WHICH HAS GIVEN HER THE ABILITY TO BE MORE PHYSICALLY ACTIVE AND HAS BEEN WALKING MORE. SHE HAS LOST 3 LB SINCE LAST OFFICE VISIT. ALSO ON OZEMPIC 0.25 MG WEEKLY THAT HAS OFFERED HER THE ABILITY DID LOSE WEIGHT AND SOME GLYCEMIC CONTROL. SHE DOES REPORT SINCE BEING MORE PHYSICALLY ACTIVE SHE IS FELT DIFFERENT PAIN/SENSATION IN HER ABDOMEN. NO DEFECATION ISSUES REPORTED. --> SHE WILL REACH BACK OUT TO HER ABDOMINAL HERNIA SURGEON TO SEE IF SHE CAN GET BACK ON THE SCHEDULE TO DISCUSS A FINAL FIX OF HER LARGE INCISIONAL HERNIA. Type 2 diabetes: Now has establish care with new source inspector. She reports her blood sugars have been better controlled. Her Ozempic has reduced to 0.25 again. [facility] Medical History Itching Obesity (BMI 30-39.9) Sepsis Diverticulitis of both large and small intestine with perforation and abscess Diverticulitis of large intestine with abscess Morbid obesity with BMI of 50.0-59.9, adult Hypertension Vitamin D deficiency B12 deficiency Diabetic nephropathy associated with type 2 diabetes mellitus Dyslipidemia Hirsutism Diabetes type 2, uncontrolled Surgical History Hx of abdominal surgery Hx of umbilical hernia repair History of ankle surgery Hx of section Family History Father Throat cancer Cirrhosis Mother Diabetes Social History Household Members: None Housing: House Do you presently have visiting nurse or other home services: Yes Alcohol intake: former Patient Tobacco Use Status: Current everyday Tobacco user Tobacco use type: Cigarette Cigarettes Per Day: 5 Years Smoked: 30 e-Cigarette/Vaping Use: Never Used Second Hand Smoke Exposure: Yes Substance Use Type: Marijuana Advance Directives Date on File: 05/05/21 service: No Current occupational status: disabled Cognitive needs: No Hearing needs: No Vision needs: Yes Questionnaire Thrive Questionnaire Date Thrive assessed: 08/03/23 RUI-7 AMB Questionnaire RUI-7 Date RUI - 7 assessed: 08/03/23 Source: Developed by Drs. Kahlil Thao, Patito Pradhan, Shine Carias and colleagues, with an educational kathleen from [employer]. Review of Systems Const Denies headache(s) Eyes Denies loss of vision ENT Denies vertigo, Denies dizziness, Denies headache(s) and Denies sore throat Card Denies chest pain, Denies leg edema and Denies lightheadedness Resp Denies cough, Denies hemoptysis and Denies wheezing GI Denies abdominal pain, Denies melena, Denies constipation, Denies diarrhea and Denies vomiting Denies urinary frequency, Denies dysuria and Denies urinary urgency Musc Denies arthralgias, Denies joint swelling, Denies numbness and Denies tingling Neuro Denies Abnormal speech present, Denies behavioral changes, Denies vertigo, Denies dizziness, Denies headache(s), Denies loss of vision, Denies memory loss, Denies numbness and Denies tingling Psych Denies anxiety, Denies behavioral changes, Denies depression, Denies memory loss and Denies panic attacks Abhijit/Lymph Denies easy bleeding and Denies easy bruising Aller/Immun Denies wheezing Physical exam (Primary Care) Vital Signs: Last Vital Signs Pulse 104 H 02/29/24 11:15 BP 126/86 02/29/24 11:15 Pulse Ox 98 02/29/24 11:15 Oxygen Delivery Method Room Air 02/29/24 11:15 BMI result Body Mass Index 36.2 Tobacco/Smoking Status: Tobacco use Status Tobacco use date assessed 08/03/23 02/29/24 11:19 Patient Tobacco Use Status Current everyday Tobacco 02/29/24 11:19 Tobacco use type Cigarette 02/29/24 11:19 e-Cigarette/Vaping Use Never Used 02/29/24 11:19 Thrive Assessment: Date of Thrive Assessment Date Thrive assessed 08/03/23 02/29/24 11:19 Const General: healthy appearing, no acute distress, alert and awake Nutritional Appearance: well nourished Orientation/consciousness: oriented to person, oriented to place and oriented to time HENMT Ears: TM's normal bilaterally General nose exam: Normal nasal mucous membranes and turbinates present Eyes Conjunctivae: conjunctivae normal Sclerae: sclerae normal Pupils: Equal, round and reactive pupils present Neck Neck: Yes no lymphadenopathy and Yes no JVD Thyroid: Thyroid normal Carotids: no bruits Resp Effort & Inspection: normal respiratory effort and not tachypneic Auscultation: no crackles, no rales, no rhonchi and no wheezes Cardio Rate: regular rate Rhythm: regular rhythm Heart sounds: no murmurs and normal S1 and S2 GI Palpation (GI): Soft to palpation, nontender, no hepatomegaly and no splenomegaly Auscultation: normal bowel sounds Skin General skin exam: no rashes or lesions noted and dry skin Neuro General: oriented to person, oriented to place and oriented to time Cranial nerves: Yes Equal, round and reactive pupils present Speech: No Abnormal speech present Gait exam (Neuro): Normal gait present Motor exam (neuro): no tremor noted Extrem Right upper extremity: full ROM Left upper extremity: full ROM Right lower extremity: full ROM; no edema Left lower extremity: full ROM; no edema Psych Mental Status: mental status grossly normal Speech and movement: Normal speech and movement present Affect: normal affect Attitude: cooperative Thought process: Normal thought process present Results AMB Hemoglobin A1c AMB Hemoglobin A1c 9.0 % Last Edit by RADHA Chen on 02/29/24 11:25 Results Reviewed Results Reviewed: Laboratory Last Values Hgb A1c (Clinic) 9.0 % (4.0-6.0) H 02/29/24 11:25 Assessment and Plan Assessment & Plan (1) Incisional hernia: Code(s): K43.2 - Incisional hernia without obstruction or gangrene Qualifiers: Obstruction and gangrene presence: without obstruction or gangrene Qualified Code(s): K43.2 - Incisional hernia without obstruction or gangrene Plan: Unfortunate recently experienced enlargement in abdominal hernia. Does report pain all over abdomen. Continues to wait for reconstruction surgery her abdomen. At this point I am are trying to manage her pain for now on oxycodone 10 mg Q 8 hours p.r.n until she can get definitive treatment of abdominal hernia. She reports she is unable to be physically active to lose weight without having her pain controlled as her pain does not allow her to get up and out of her bed most of the time. She has followed up with hernia surgeon in hopes to get reconstruction surgery soon. She is better glycemic control as of late and has been losing a bit of weight. She continues to be very determined to have this hernia repaired. . (2) Insulin dependent type 2 diabetes mellitus: Code(s): E11.9 - Type 2 diabetes mellitus without complications; Z79.4 - long term acute care registered nurse (current) use of insulin Plan: Had captured some glycemic control with Ozempic injections.. Today A1c at 9.0 from 9.9 . Has made adjustments in her diabetic medication recently. Has upcoming appointment with her source inspector Orders: Orders AMB Hemoglobin A1c 02/29/24 Z79.4 - long term acute care registered nurse (current) use of insulin, E11.65 - Type 2 diabetes mellitus with hyperglycemia Medications: Changed From insulin glargine 80 units (0.8 mL) subcut BEDTIME 30 mL 5RF To insulin glargine (Lantus Solostar U-100 Insulin) 80 units (0.8 mL) subcut BEDTIME 30 mL 5RF Refilled fluticasone propion-salmeterol 250-50 mcg/dose (Advair Diskus) 1 ea inhalation BID 60 ea 3RF 30 days J45.909 - Unspecified asthma, uncomplicated semaglutide (Ozempic) 0.25 mg (0.1875 mL) subcut QWEEK 3 mL 0RF Coding Level of Care Code Est Pt Level 4 (92166) Diagnoses Incisional hernia, without obstruction or gangrene K43.2 Obstruction and gangrene presence: without obstruction or gangrene Insulin dependent type 2 diabetes mellitus E11.9; Z79.4
== END 2024-02-29 12:08 | disposition home or self-care (01) ==
PROVIDERS: PCP Physician Assistant; Visit Provider Physician Assistant
DX: E11.65 Type 2 diabetes mellitus with hyperglycemia (principal); Z79.4 Long term (current) use of insulin
CPT/HCPCS: 83036; 99214

== ENCOUNTER 2024-03-20 15:03 | Outpatient (AMB) | payer OTHER, SELFPAY ==
--- NOTE | 2024-03-20 15:04 | MHC.PC.OV ---
Vital Signs 03/20/24 15:11 Height 5 ft 5 in BP 126/82 Blood Pressure Location Lt brachial Position Sitting Pulse 109 H Pulse Source Pulse Oximeter Pulse Oximetry (%) 97 Oxygen Delivery Method Room Air Intake Visit Reasons: [facility] 03/14 Covtimothy Associate Team Physician Required: No Accompanied by: Self / Same As Patient Allergies latex [LATEX] Allergy (Mild, Verified 03/20/24 15:33) RASH Iodinated Contrast Media [IV Contrast Dye] Allergy (Verified 03/20/24 15:33) Anaphylaxis amoxicillin Adverse Reaction (Unknown, Verified 03/20/24 15:33) vaginal infection dulaglutide [From Trulicity] Adverse Reaction (Unknown, Verified 03/20/24 15:33) vomitting, nausea semaglutide [From Ozempic] Adverse Reaction (Unknown, Verified 03/20/24 15:33) Chest pain, vomitting Medication List - Last Reconciled 03/20/24 by Cruz Navas PA-C abdominal binder As directed albuterol sulfate 2.5 mg (3 mL) inhalation Q6H PRN 30 days albuterol sulfate 90 mcg/actuation 1 inh inhalation QID PRN 30 days blood sugar diagnostic (FreeStyle Test strips) testing 3x daily epinephrine (EpiPen 2-Josué) 0.3 mg (0.3 mL) IM ONCE PRN flash glucose scanning reader (FreeStyle Tiff 2 [place]) 1 ea miscellaneous DIRECTED flash glucose sensor (FreeStyle Tiff 2 Sensor kit) DIRECTED EVERY 2 WEEKS fluticasone propion-salmeterol 250-50 mcg/dose (Advair Diskus) 1 ea inhalation BID 30 days FreeStyle Precision Haresh Strips (blood sugar diagnostic) As needed up to four times daily NS glucose 4 grams PO Q15M PRN insulin glargine (Lantus Solostar U-100 Insulin) 80 units (0.8 mL) subcut BEDTIME insulin lispro 20 - 30 units subcut TID nitroglycerin 0.4 mg sublingual Q5M PRN 15 days oxycodone 10 mg PO Q8H 21 days pen needle, diabetic (BD Ultra-Fine Macy Pen Needle) USE DIRECTED 4 TIMES DAILY semaglutide (Ozempic) 0.25 mg (0.1875 mL) subcut QWEEK Tobacco use date assessed: 08/03/23 Dental Screening Dental Screen Date: 10/05/23 HPI [facility] 03/14 Covid HPI Details Patient is a 48-year-old female here today for [facility] ER follow-up visit. She was seen at the ER for fever and was found to have COVID. Chest x-ray done though did not show any infiltrate. Fax of in antiviral is offered though she declined. Currently still feeling ill, has a productive cough, myalgias and intermittent fever. She reports a lot sinus pressure and pain. PLAN: Will send for repeat x-ray to evaluate for secondary bacterial pneumonia due to reports of cough now being productive of whitish pinkish sputum. [facility] Medical History Itching Obesity (BMI 30-39.9) Sepsis Diverticulitis of both large and small intestine with perforation and abscess Diverticulitis of large intestine with abscess Morbid obesity with BMI of 50.0-59.9, adult Hypertension Vitamin D deficiency B12 deficiency Diabetic nephropathy associated with type 2 diabetes mellitus Dyslipidemia Hirsutism Diabetes type 2, uncontrolled Surgical History Hx of abdominal surgery Hx of umbilical hernia repair History of ankle surgery Hx of section Family History Father Throat cancer Cirrhosis Mother Diabetes Social History Household Members: None Housing: House Do you presently have visiting nurse or other home services: Yes Alcohol intake: former Patient Tobacco Use Status: Current everyday Tobacco user Tobacco use type: Cigarette Cigarettes Per Day: 5 Years Smoked: 30 e-Cigarette/Vaping Use: Never Used Second Hand Smoke Exposure: Yes Substance Use Type: Marijuana Advance Directives Date on File: 05/05/21 service: No Current occupational status: disabled Cognitive needs: No Hearing needs: No Vision needs: Yes Questionnaire Thrive Questionnaire Date Thrive assessed: 08/03/23 RUI-7 AMB Questionnaire RUI-7 Date RUI - 7 assessed: 08/03/23 Source: Developed by Drs. Kahlil Thao, Patito Pradhan, Shine Carias and colleagues, with an educational kathleen from [employer]. Review of Systems Const Reports headache(s) Eyes Denies loss of vision ENT Denies vertigo, Reports dizziness, Reports facial pain, Reports headache(s), Reports nasal discharge and Denies sore throat Card Denies chest pain, Denies leg edema, Denies lightheadedness and Reports dyspnea Resp Reports change in phlegm color, Reports cough, Denies hemoptysis, Reports dyspnea and Denies wheezing GI Denies abdominal pain, Denies melena, Denies constipation, Denies diarrhea and Denies vomiting Denies urinary frequency, Denies dysuria and Denies urinary urgency Musc Denies arthralgias, Denies joint swelling, Denies numbness and Denies tingling Neuro Denies Abnormal speech present, Denies behavioral changes, Denies vertigo, Reports dizziness, Reports headache(s), Denies loss of vision, Denies memory loss, Denies numbness and Denies tingling Psych Denies anxiety, Denies behavioral changes, Denies depression, Denies memory loss and Denies panic attacks Abhijit/Lymph Denies easy bleeding and Denies easy bruising Aller/Immun Denies wheezing Physical exam (Primary Care) Vital Signs: Last Vital Signs Pulse 109 H 03/20/24 15:11 BP 126/82 03/20/24 15:11 Pulse Ox 97 03/20/24 15:11 Oxygen Delivery Method Room Air 03/20/24 15:11 Tobacco/Smoking Status: Tobacco use Status Tobacco use date assessed 08/03/23 03/20/24 15:04 Patient Tobacco Use Status Current everyday Tobacco 03/20/24 15:04 Tobacco use type Cigarette 03/20/24 15:04 e-Cigarette/Vaping Use Never Used 03/20/24 15:04 Thrive Assessment: Date of Thrive Assessment Date Thrive assessed 08/03/23 03/20/24 15:04 Const General: healthy appearing, no acute distress, alert and awake Nutritional Appearance: well nourished Orientation/consciousness: oriented to person, oriented to place and oriented to time HENMT Ears: TM's normal bilaterally General nose exam: Normal nasal mucous membranes and turbinates present Eyes Conjunctivae: conjunctivae normal Sclerae: sclerae normal Pupils: Equal, round and reactive pupils present Neck Neck: Yes no lymphadenopathy and Yes no JVD Thyroid: Thyroid normal Carotids: no bruits Resp Effort & Inspection: normal respiratory effort and not tachypneic Auscultation: no crackles, no rales, no rhonchi and no wheezes Cardio Rate: regular rate Rhythm: regular rhythm Heart sounds: no murmurs and normal S1 and S2 GI Palpation (GI): Soft to palpation, nontender, no hepatomegaly and no splenomegaly Auscultation: normal bowel sounds Skin General skin exam: no rashes or lesions noted and dry skin Neuro General: oriented to person, oriented to place and oriented to time Cranial nerves: Yes Equal, round and reactive pupils present Speech: No Abnormal speech present Gait exam (Neuro): Normal gait present Motor exam (neuro): no tremor noted Extrem Right upper extremity: full ROM Left upper extremity: full ROM Right lower extremity: full ROM; no edema Left lower extremity: full ROM; no edema Psych Mental Status: mental status grossly normal Speech and movement: Normal speech and movement present Affect: normal affect Attitude: cooperative Thought process: Normal thought process present Assessment and Plan Assessment & Plan (1) COVID-19: Code(s): U07.1 - COVID-19 Plan: Recently diagnosed with COVID on March 14. Still feeling somewhat sick. Does have productive cough thus will send for x-ray to rule out a secondary bacterial pneumonia. Patient is fairly immunocompromise due to her diabetes and smoking history. Will send in doxycycline to cover any secondary bacterial infection. (2) Acute bronchitis: Code(s): J20.9 - Acute bronchitis, unspecified Qualifiers: Bronchitis organism: other organism Qualified Code(s): J20.8 - Acute bronchitis due to other specified organisms Orders: Orders XR chest 2V 03/20/24 J20.9 - Acute bronchitis, unspecified, U07.1 - COVID-19 Medications: New doxycycline monohydrate 100 mg PO BID 7 days 14 caps 0RF J20.9 - Acute bronchitis, unspecified Refilled albuterol sulfate 2.5 mg (3 mL) inhalation Q6H 30 days PRN 360 mL 3RF shortness of breath or wheezing J45.909 - Unspecified asthma, uncomplicated Coding Level of Care Code Est Pt Level 3 (33857) Diagnoses COVID-19 U07.1 Acute bronchitis due to other specified organisms J20.8 Bronchitis organism: other organism
[2024-03-20 15:11] VITALS: BP 126/82; PULSE 109; O2SAT 97
== END 2024-03-20 15:48 | disposition home or self-care (01) ==
PROVIDERS: PCP Physician Assistant; Visit Provider Physician Assistant
DX: U07.1 COVID-19 (principal); J20.8 Acute bronchitis due to other specified organisms
CPT/HCPCS: 99213

== ENCOUNTER 2024-03-20 16:01 | Outpatient (REF) | payer OTHER, SELFPAY ==
--- NOTE | ~2024-03-20 | XR_ITS ---
EXAMINATION: XR CHEST CLINICAL INFORMATION: Chest pain and shortness of breath. COMPARISON: None available. TECHNIQUE: 2 views of the chest were obtained. FINDINGS: Lungs are clear. No pleural effusions. Heart and pulmonary vessels normal. XR/XR chest 2V IMPRESSION: No active disease. Electronically signed by: Lamonte Ambriz MD 03/20/2024 04:55 PM EDT
== END 2024-03-20 16:02 | disposition home or self-care (01) ==
LOC: HO.XRAY 16:01
PROVIDERS: PCP Physician Assistant; Visit Provider Physician Assistant
DX: U07.1 COVID-19 (principal); J02.9 Acute pharyngitis, unspecified
CPT/HCPCS: 71046

== ENCOUNTER 2024-04-24 15:29 | Outpatient (AMB) | payer OTHER, SELFPAY ==
--- NOTE | 2024-04-24 15:34 | A.OFFVIS_ITS ---
Vital Signs 04/24/24 15:38 Height 5 ft 5 in Weight 213 lb 13.574 oz BMI 35.6 BP 118/78 Blood Pressure Location Rt brachial Position Sitting Pulse 90 Pulse Source Pulse Oximeter Intake Visit Reasons: DM Intake Note: Patient presents here today to for a follow-up on DM TYPE 2. Most recent Diabetic Eye Exam: 11/2023 Most recent Podiatry Exam: Does not see a Relationship Assoc Most recent HbA1c: 9.0%, 02/29/2024 Random Glucose- ___ mg/dL, Today Environmental Protection Geologist Required: No Accompanied by: Self / Same As Patient Allergies latex [LATEX] Allergy (Mild, Verified 04/29/24 15:39) RASH Iodinated Contrast Media [IV Contrast Dye] Allergy (Verified 04/29/24 15:39) Anaphylaxis amoxicillin Adverse Reaction (Unknown, Verified 04/29/24 15:39) vaginal infection dulaglutide [From Trulicity] Adverse Reaction (Unknown, Verified 04/29/24 15:39) vomitting, nausea semaglutide [From Ozempic] Adverse Reaction (Unknown, Verified 04/29/24 15:39) Chest pain, vomitting HPI Comments Details: Patient is a 48-year-old female with DM type 2 diagnosed who presents for management of diabetes. Past medical history: DM2, HTN, Hirsutism, dyslipidemia, vitamin d deficiency. Micro and macrovascular complications: Nephropathy Diabetes medications: Currently taking ozempic 1mg weekly. Previous: She was prescribed lantus 80 units and 15-20 humalog with meals. Had dizziness with Trulicity. Intolerant of mounjaro. CGM, V-Keye downloaded. Use 40%-Average 183, no GMI, 50% target, 50% high, 0% low. A1C 8.2% Symptoms reported: numbness, tingling, cramping in lower extremities Hypoglycemia: No. drinks orange juice which brings it up but doesnt sustain long enough Hyperglycemia: denies urinary frequency, denies excessive thirst Optho: says utd Does not see podiatry ROS see HPI PHYSICAL EXAM: GENERAL: Alert and oriented x 3. NAD EYES: EOMI. Anicteric. HENT: Moist mucous membranes. No scleral icterus. No cervical lymphadenopathy. LUNGS: Clear to auscultation bilaterally. CARDIOVASCULAR: Regular rate and rhythm. No murmur. No JVD. ABDOMEN: Soft, +hernia EXTREMITIES: No edema. Non-tender. SKIN: No rashes or lesions. Warm. NEUROLOGIC: No focal neurological deficits. CN II-XII grossly intact PSYCHIATRIC: Cooperative. Appropriate mood and affect [facility] Medical History Itching Obesity (BMI 30-39.9) Sepsis Diverticulitis of both large and small intestine with perforation and abscess Diverticulitis of large intestine with abscess Morbid obesity with BMI of 50.0-59.9, adult Hypertension Vitamin D deficiency B12 deficiency Diabetic nephropathy associated with type 2 diabetes mellitus Dyslipidemia Hirsutism Diabetes type 2, uncontrolled Surgical History Hx of abdominal surgery Hx of umbilical hernia repair History of ankle surgery Hx of section Family History Father Throat cancer Cirrhosis Mother Diabetes Social History Household Members: None Housing: House Do you presently have visiting nurse or other home services: Yes Alcohol intake: former Patient Tobacco Use Status: Current everyday Tobacco user Tobacco use type: Cigarette Cigarettes Per Day: 5 Years Smoked: 30 e-Cigarette/Vaping Use: Never Used Second Hand Smoke Exposure: Yes Substance Use Type: Marijuana Advance Directives Date on File: 05/05/21 service: No Current occupational status: disabled Cognitive needs: No Hearing needs: No Vision needs: Yes Physical Exam Vital Signs: Last Vital Signs Pulse 90 04/24/24 15:38 BP 118/78 04/24/24 15:38 BMI result Body Mass Index 35.6 Results Reviewed Results Reviewed: Laboratory Last Values Glucose (Clinic) 194 mg/dL (60-115) H 04/24/24 15:43 Assessment & Plan Assessment & Plan (1) Diabetes type 2, uncontrolled: Code(s): E11.65 - Type 2 diabetes mellitus with hyperglycemia Category: Medical Qualifiers: Glycemic state: with hyperglycemia Qualified Code(s): E11.65 - Type 2 diabetes mellitus with hyperglycemia Plan: She plans to start going back to the gym. She will increase ozempic to 2mg weekly She will return in 4 weeks to review blood gluocse readings Medications: New Ozempic (semaglutide) 2 mg (0.75 mL) subcut QWEEK 9 mL 3RF NS E11.21 - Type 2 diabetes mellitus with diabetic nephropathy Discontinued Ozempic for 4 weeks Discontinued Reason: Doctor's Order 0.25 mg (0.368 mL) subcut QWEEK 12 weeks 6 mL 3RF NS E11.65 - Type 2 diabetes mellitus with hyperglycemia Coding Level of Care Code Est Pt Level 3 (62760) Diagnoses Uncontrolled type 2 diabetes mellitus with hyperglycemia E11.65 Glycemic state: with hyperglycemia
[2024-04-24 15:38] VITALS: BP 118/78; PULSE 90; BMI 35.6
[2024-04-24 15:47] LABS: Glucose, Whole Blood 194 mg/dL (60-115)
== END 2024-04-24 16:05 | disposition home or self-care (01) ==
PROVIDERS: PCP Physician Assistant; Visit Provider Internal Medicine
DX: E11.65 Type 2 diabetes mellitus with hyperglycemia (principal)

== ENCOUNTER → 2024-04-24 15:29 | Outpatient (BNVA) | payer OTHER, SELFPAY | PROVIDERS: PCP Physician Assistant; Visit Provider Internal Medicine | DX: E11.65 Type 2 diabetes mellitus with hyperglycemia (principal) | CPT/HCPCS: 82947; 99212 ==

== ENCOUNTER 2024-04-27 08:15 | Outpatient (REF) | payer OTHER, SELFPAY ==
[2024-04-27 09:49] LABS: Alanine Aminotransferase 29 U/L (0-31); Albumin Level 3.7 g/dL (3.5-5.0); Alkaline Phosphatase 92 U/L (39-117); Anion Gap 12 (12-20); Aspartate Amino Transferase 28 U/L (5-31); Bilirubin Total 0.6 mg/dL (0.0-1.0); Blood Urea Nitrogen 8 mg/dL (9-16); Calcium 9.2 mg/dL (8.4-10.2); Carbon Dioxide 24 mmol/L (22-29); Chloride 106 mmol/L (96-108); Cholesterol 225 mg/dL (<200); Estimated Glomerular Filt Rate > 60; Glucose Random 198 mg/dL (60-115); HDL Cholesterol 29 mg/dL (>40); Potassium 3.9 mmol/L (3.3-5.1); Sodium 138 mmol/L (135-145); Total Protein 7.6 g/dL (6.5-8.0); Triglycerides 416 mg/dL (<150)
[2024-04-27 10:15] LABS: TSH reflex Free T4 1.59 uIU/mL (0.32-4.0)
[2024-04-27 10:17] LABS: Estimated Average Glucose 189 mg/dL; Hemoglobin A1C 229.0184 umol/L; Hemoglobin A1c % 8.2 % (<6.0); Total Hemoglobin (HGBA1C) 3475.9239 umol/L
== END 2024-04-27 08:16 | disposition home or self-care (01) ==
LOC: HO.LAB 08:15
PROVIDERS: Absent Provider Physician Assistant; PCP Physician Assistant; Referring Provider Nurse Practitioner Family; Visit Provider Internal Medicine
DX: E78.5 Hyperlipidemia, unspecified (principal); R14.0 Abdominal distension (gaseous); E11.65 Type 2 diabetes mellitus with hyperglycemia; R79.89 Other specified abnormal findings of blood chemistry
CPT/HCPCS: 36415; 80053; 80061; 83036; 84443

== ENCOUNTER 2024-04-29 15:17 | Outpatient (AMB) | payer OTHER, SELFPAY ==
--- NOTE | 2024-04-29 15:23 | A.OFFPC_ITS ---
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 Required: No Accompanied by: Self / Same As Patient Allergies latex [LATEX] Allergy (Mild, Verified 04/29/24 15:39) RASH Iodinated Contrast Media [IV Contrast Dye] Allergy (Verified 04/29/24 15:39) Anaphylaxis amoxicillin Adverse Reaction (Unknown, Verified 04/29/24 15:39) vaginal infection dulaglutide [From Trulicity] Adverse Reaction (Unknown, Verified 04/29/24 15:39) vomitting, nausea semaglutide [From Ozempic] Adverse Reaction (Unknown, Verified 04/29/24 15:39) Chest pain, vomitting Medication List - Last Reconciled 04/29/24 by Cruz Navas PA-C abdominal binder As directed albuterol sulfate 2.5 mg (3 mL) inhalation Q6H PRN 30 days albuterol sulfate 90 mcg/actuation 1 inh inhalation QID PRN 30 days blood sugar diagnostic (FreeStyle Test strips) testing 3x daily epinephrine (EpiPen 2-Josué) 0.3 mg (0.3 mL) IM ONCE PRN flash glucose scanning reader (FreeStyle Tiff 2 Alden) 1 ea miscellaneous DIRECTED flash glucose sensor (FreeStyle Tiff 2 Sensor kit) DIRECTED EVERY 2 WEEKS fluticasone propion-salmeterol 250-50 mcg/dose (Advair Diskus) 1 ea inhalation BID 30 days FreeStyle Precision Haresh Strips (blood sugar diagnostic) As needed up to four times daily NS glucose 4 grams PO Q15M PRN insulin glargine (Lantus Solostar U-100 Insulin) 80 units (0.8 mL) subcut BEDTIME insulin lispro 20 - 30 units subcut TID nitroglycerin 0.4 mg sublingual Q5M PRN 15 days oxycodone 10 mg PO Q8H 21 days Ozempic (semaglutide) 2 mg (0.75 mL) subcut QWEEK NS pen needle, diabetic (BD Ultra-Fine Macy Pen Needle) USE DIRECTED 4 TIMES DAILY Tobacco use date assessed: 08/03/23 Dental Screening Dental Screen Date: 10/05/23 HPI 8 Week F/U HPI0 Details Patient is a 48-year-old female here today for a 8 week follow-up visit.? Patient has a past medical history significant for obesity, type 2 diabetes, tobacco dependency, generalized anxiety disorder, chronic incisional abdominal hernia. Incisional hernia--> she has reestablish care with [facility] general surgeon. Was was previous not a candidate for surgery as she has gained weight, continues to smoke in her diabetes isn't well controlled. She was told she needed to get her diabetes better controlled and lose a significant amount of weight so that she would not have any complications after her hernia repair. --> SHE CONTINUES WITH PAIN MANAGEMENT W ITH OXYCODONE 10 MG WHICH HAS GIVEN HER THE ABILITY TO BE MORE PHYSICALLY ACTIVE AND HAS BEEN WALKING MORE. SHE HAS LOST 3 LB SINCE LAST OFFICE VISIT. ALSO ON OZEMPIC 0.25 MG WEEKLY THAT HAS OFFERED HER THE ABILITY DID LOSE WEIGHT AND SOME GLYCEMIC CONTROL. SHE DOES REPORT SINCE BEING MORE PHYSICALLY ACTIVE SHE IS FELT DIFFERENT PAIN/SENSATION IN HER ABDOMEN. NO DEFECATION ISSUES REPORTED. --> SHE WILL REACH BACK OUT TO HER ABDOM INAL HERNIA SURGEON TO SEE IF SHE CAN GET BACK ON THE SCHEDULE TO DISCUSS A FINAL FIX OF HER LARGE INCISIONAL HERNIA. Type 2 diabetes: Now has establish care with new mobile qa tester. Her Ozempic has been recently increased to 2 mg weekly. She reports her blood sugars have been better controlled. Most recent A1c improved at 8.2. Hypertriglyceridemia: Have noted elevation in her triglycerides. She did stop taking her fenofibrate as she was concerned about side effects. She promises to restart fenofibrate to reduce her triglycerides. [facility] Medical History Itching Obesity (BMI 30-39.9) Sepsis Diverticulitis of both large and small intestine with perforation and abscess Diverticulitis of large intestine with abscess Morbid obesity with BMI of 50.0-59.9, adult Hypertension Vitamin D deficiency B12 deficiency Diabetic nephropathy associated with type 2 diabetes mellitus Dyslipidemia Hirsutism Diabetes type 2, uncontrolled Surgical History Hx of abdominal surgery Hx of umbilical hernia repair History of ankle surgery Hx of section Family History Father Throat cancer Cirrhosis Mother Diabetes Social History Household Members: None Housing: House Do you presently have visiting nurse or other home services: Yes Alcohol intake: former Patient Tobacco Use Status: Current everyday Tobacco user Tobacco use type: Cigarette Cigarettes Per Day: 5 Years Smoked: 30 e-Cigarette/Vaping Use: Never Used Second Hand Smoke Exposure: Yes Substance Use Type: Marijuana Advance Directives Date on File: 05/05/21 service: No Current occupational status: disabled Cognitive needs: No Hearing needs: No Vision needs: Yes Questionnaire Thrive Questionnaire Date Thrive assessed: 08/03/23 Are you currently unemployed and looking for a job?: Yes RUI-7 AMB Questionnaire RUI-7 Date RUI - 7 assessed: 08/03/23 Source: Developed by Drs. Kahlil Thao, Patito Pradhan, Shine Carias and colleagues, with an educational kathleen from [employer]. Review of Systems Neuro Denies Abnormal speech present Physical exam (Primary Care) Vital Signs: Last Vital Signs Pulse 84 04/29/24 15:24 BP 140/80 H 04/29/24 15:24 Pulse Ox 94 04/29/24 15:24 Oxygen Delivery Method Room Air 04/29/24 15:24 BMI result Body Mass Index 35.2 Tobacco/Smoking Status: Tobacco use Status Tobacco use date assessed 08/03/23 04/29/24 15:24 Patient Tobacco Use Status Current everyday Tobacco 04/29/24 15:24 Tobacco use type Cigarette 04/29/24 15:24 e-Cigarette/Vaping Use Never Used 04/29/24 15:24 Thrive Assessment: Date of Thrive Assessment Date Thrive assessed 08/03/23 04/29/24 15:24 Const General: healthy appearing, no acute distress, alert and awake Nutritional Appearance: well nourished Orientation/consciousness: oriented to person, oriented to place and oriented to time HENMT Ears: TM's normal bilaterally General nose exam: Normal nasal mucous membranes and turbinates present Eyes Conjunctivae: conjunctivae normal Sclerae: sclerae normal Pupils: Equal, round and reactive pupils present Neck Neck: Yes no lymphadenopathy and Yes no JVD Thyroid: Thyroid normal Carotids: no bruits Resp Effort & Inspection: normal respiratory effort and not tachypneic Auscultation: no crackles, no rales, no rhonchi and no wheezes Cardio Rate: regular rate Rhythm: regular rhythm Heart sounds: no murmurs and normal S1 and S2 GI Other: NOTED LARGE MIDLINE LOWER ABDOMINAL HERNIA. Palpation (GI): Soft to palpation, nontender, no hepatomegaly, no splenomegaly and Hernia present ventral Auscultation: normal bowel sounds Skin General skin exam: no rashes or lesions noted and dry skin Neuro General: oriented to person, oriented to place and oriented to time Cranial nerves: Yes Equal, round and reactive pupils present Speech: No Abnormal speech present Gait exam (Neuro): Normal gait present Motor exam (neuro): no tremor noted Extrem Right upper extremity: full ROM Left upper extremity: full ROM Right lower extremity: full ROM; no edema Left lower extremity: full ROM; no edema Psych Mental Status: mental status grossly normal Speech and movement: Normal speech and movement present Affect: normal affect Attitude: cooperative Thought process: Normal thought process present Coding Level of Care Code Est Pt Level 4 (23525) Diagnoses Incisional hernia, without obstruction or gangrene K43.2 Obstruction and gangrene presence: without obstruction or gangrene Uncontrolled type 2 diabetes mellitus with hyperglycemia E11.65 Glycemic state: with hyperglycemia Tobacco dependence F17.200 Hypertriglyceridemia E78.1 Assessment & Plan Assessment & Plan (1) Incisional hernia: Code(s): K43.2 - Incisional hernia without obstruction or gangrene Category: Medical Qualifiers: Obstruction and gangrene presence: without obstruction or gangrene Qualified Code(s): K43.2 - Incisional hernia without obstruction or gangrene Plan: Patient continues to follow up with general surgeon for her hernia evaluation. She anticipates surgery in the next few months. She needs to have better glycem ic control to which she has making med adjustments with [facility]. She continues to wear a abdominal binder which helps to hold her hernia in placed. UNFORTUNATELY CONTINUES TO HAVE RIPPING TYPE PAIN IN HER ABDOMEN TO WHICH SHE REQUIRES NARCOTIC PAIN MEDICATION AND REST FROM TIME TO TIME. SHE DOES REPORT SHE FEELS THAT HER HERNIA HAS MOVED DOWN WORDS PASSING ON HER HOSPICE COORDINATOR ORGANS. SHE REPORTS HAVING HER MENSTRUATION 3 TIMES IN 1 MONTH. (2) Diabetes type 2, uncontrolled: Code(s): E11.65 - Type 2 diabetes mellitus with hyperglycemia Category: Medical Qualifiers: Glycemic state: with hyperglycemia Qualified Code(s): E11.65 - Type 2 diabetes mellitus with hyperglycemia Plan: Patient's type 2 diabetes suboptimally controlled though improving. Most recent A1c 8.2. She has establish care with [facility]. Her Ozempic has been increased to 2 mg weekly in hopes to reduce her A1c below 7.0. (3) Tobacco dependence: Code(s): F17.200 - Nicotine dependence, unspecified, uncomplicated Category: Medical Plan: Patient does admit to smoking a few cigarettes per day on stress. Her abdominal hernia causes her lot of pain and stress. (4) Hypertriglyceridemia: Code(s): E78.1 - Pure hyperglyceridemia Category: Medical Plan: As per HPI patient's most recent lipid panel showing very elevated triglycerides. She did admit to stopping fenofibrate and will restart this medication to help reduce her triglycerides. Medications: New ondansetron HCl 8 mg PO Q12H 30 tabs 1RF 15 days F41.1 - Generalized anxiety disorder Refilled oxycodone Partial Fill upon patient request. 10 mg PO Q8H 63 tabs 0RF pain 21 days K43.2 - Incisional hernia without obstruction or gangrene
[2024-04-29 15:24] VITALS: BP 140/80; PULSE 84; O2SAT 94; BMI 35.2
== END 2024-04-29 16:10 | disposition home or self-care (01) ==
PROVIDERS: PCP Physician Assistant; Visit Provider Physician Assistant
DX: K43.2 Incisional hernia without obstruction or gangrene (principal); E11.65 Type 2 diabetes mellitus with hyperglycemia; F17.200 Nicotine dependence, unspecified, uncomplicated; E78.1 Pure hyperglyceridemia

== ENCOUNTER → 2024-04-29 15:17 | Outpatient (BNVA) | payer OTHER, SELFPAY | PROVIDERS: PCP Physician Assistant; Visit Provider Physician Assistant | DX: K43.2 Incisional hernia without obstruction or gangrene (principal); E11.65 Type 2 diabetes mellitus with hyperglycemia; E78.1 Pure hyperglyceridemia; F17.200 Nicotine dependence, unspecified, uncomplicated; Z71.6 Tobacco abuse counseling | CPT/HCPCS: 99212 ==

== ENCOUNTER 2024-05-09 09:10 | Outpatient (AMB) | payer OTHER, SELFPAY ==
--- OUTSIDE RECORDS SUMMARY | 2024-05-09 09:12 | XMS_ITS | Continuity of Care Document ---
Author Organization [facility] y Address [address] [place] [id number]- Care Team Providers Care Coin Machine Collector Name Role Phone Cruz Farooq Primary Care Physician Encounter [facility] Date(s): 10/03/22 - 01/06/23 [facility] [address] [place] [id number] [[email or web address] Attending Physician: Cory Rose DO Admitting Physician: Cory Rose DO Referring Physician: Cruz Farooq Allergies, Adverse Reactions, Alerts Substance Reaction Severity Status Omnipaque 350 Anaphelaxis Active Adhesive Bandage rash Active Contrast Dye Anaphelaxis Active Latex rash Active Immunizations Not Given Vaccine Date Status Refusal Reason influenza virus vaccine, inactivated 07/17/21 Not Given Patient Refuses Medications 10cm medipore tape 10cm medipore tape, See Instructions, # 4 each, Refills 1, Tot. Refills 1, Maintenance, use as needed for daily dressing changes. 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, 08/26/21 10:42:00 EST, Compound Start Date: 08/26/21 Status: Ordered 15cm Q tip applicators 15cm Q tip applicators, See Instructions, # 30 each, Refills 1, Tot. Refills 1, Maintenance, use asneeded for daily dressing changes. 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, 08/26/21 10:43:00 EST, Compound Start Date: 08/26/21 Status: Ordered 3 inch medipore tape 3 inch medipore tape, See Instructions, # 5 each, Refills 1, Tot. Refills 1, Maintenance, use with daily packing. 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, 10/06/21 14:52:00 EDT, Compound Start Date: 10/06/21 Status: Ordered 4 x 4 super sponge 4 x 4 super sponge, See Instructions, # 30 each, Refills 1, Tot. Refills 1, Maintenance, use 1 super sponge. Lightly pack abdomen wound daily. cover with sponge. 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, 10/06/21 14:50:00 EDT, Compound Start Date: 10/06/21 Status: Ordered ABDOMINAL BINDER ABDOMINAL BINDER, See Instructions, # 2 each, Refills 0, Tot. Refills 0, Maintenance, DIAGNOSIS: VENTRAL HERNIA Please custom fit patient for abdominal binder, 05/02/22 10:41:00 EDT, Supply Start Date: 05/02/22 Status: Ordered acetaminophen 325 mg oral tablet 975 mg, 3, tablet, By Mouth, Every 6 hours, PRN, Refills 0, Maintenance, Pain , Mild, 08/03/21 15:16:00 EST, Partial fill upon patient request if the prescription is for a schedule II opioid drug. Start Date: 08/03/21 Status: Ordered Advair Diskus 250 mcg-50 mcg inhalation powder 1, inhalation, Inhalation, Daily, rinse mouth and throat after use, Refills 0, Maintenance, 06/14/21 1:10:00 EST, Powder Start Date: 06/14/21 Status: Ordered amLODIPine 5 mg oral tablet 1 tablet = 5 mg, By Mouth, Daily, # 30 tablet, 0 Refills, Maintenance, 09/21/22 14:51:00 EST, Tablet, Partial fill upon patient request if the prescription is for a schedule II opioid drug. Start Date: 09/21/22 Status: Ordered aspirin 81 mg oral delayed release tablet 81 mg, 1, tablet, By Mouth, Daily, # 30 tablet, Refills 1, Tot. Refills 1, Maintenance, 09/21/22 14:52:00 EST, Route to Pharmacy Electronically, [facility], Partial fill upon patient request if the prescription is for a schedule II opioi... Start Date: 09/21/22 Status: Ordered atorvastatin 40 mg oral tablet 2 tablet = 80 mg, By Mouth, Daily in AM, # 90 tablet, 0 Refills, Maintenance, 06/14/21 1:09:00 EST,Tablet, Partial fill upon patient request if the prescription is for a schedule II opioid drug. Start Date: 06/14/21 Status: Ordered EpiPen 2-Josué 0.3 mg injectable kit = 0.3 mg, Intramuscular, Once, PRN Anaphylactic Reaction, # 1 pack/packet, 0 Refills, Soft Stop, 12/16/22 14:29:00 EDT, [facility], Partial fill upon patient request if the prescriptionis for a schedule II opioid drug., 165.1, cm, 12/16... Start Date: 12/16/22 Status: Ordered fenofibrate 145 mg oral tablet 1 tablet = 145 mg, By Mouth, Daily, # 30 tablet, 0 Refills, Maintenance, 09/21/22 14:53:00 EST, Tablet, [facility], Partial fill upon patient request if the prescription is for a schedule II opioid drug., 165.1, cm, 07/04/22 10:47:00 EST... Start Date: 09/21/22 Status: Ordered glipiZIDE 5 mg oral tablet 5 mg, 1, tablet, By Mouth, Daily, # 30 tablet, Refills 0, Maintenance, 09/21/22 14:51:00 EST, Partial fill upon patient request if the prescription is for a schedule II opioid drug. Start Date: 09/21/22 Status: Ordered Lantus Solostar Pen 100 units/mL subcutaneous solution INJECT 47 UNIT (0.47 ML) SUBCUTANEOUSLY EVERY EVENING FOR 30 DAYS Start Date: 09/21/22 Status: Ordered lisinopril 2.5 mg oral tablet 2.5 mg, 1, tablet, By Mouth, Daily, # 30 tablet, Refills 0, Maintenance, 06/14/21 1:09:00 EST, Partial fill upon patient request if the prescription is for a schedule II opioid drug. Start Date: 06/14/21 Status: Ordered Misc Rx 50,0000 units, By Mouth, Daily, Refills 0, Maintenance, vitamin d3, 07/12/21 9:32:00 EST, Supply Start Date: 07/12/21 Status: Ordered Mounjaro 5 mg/0.5 mL subcutaneous solution = 5 mg, Subcutaneous Infusion, 0 Refills, Maintenance, 12/16/22 9:51:00 EDT, Partial fill upon patient request if the prescription is for a schedule II opioid drug. Start Date: 5/26/23 Status: Ordered Nicorette 2 mg oral transmucosal gum 1 each = 2 mg, Chew, Every 2 hours, PRN as needed for smoking cessation, # 40 each, 0 Refills, Maintenance, 05/02/22 10:14:00 EDT, Gum, Partial fill upon patient request if the prescription is for a schedule II opioid drug. Start Date: 05/02/22 Status: Ordered oxyCODONE 5 mg oral tablet 5 mg, 1, tablet, By Mouth, Every 6 hours, PRN, # 28 tablet, Refills 0, Tot. Refills 0, Maintenance,as needed for pain, 08/17/21 10:32:00 EST, Route to Pharmacy Electronically, [id number], Partial fill upon patient request if the prescription... Start Date: 08/17/21 Status: Ordered super sponges super sponges, See Instructions, # 30 each, Refills 1, Tot. Refills 1, Maintenance, use as needed for daily dressing changes. 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, 08/26/21 10:44:00 EST, Compound Start Date: 08/26/21 Status: Ordered suture removal kits suture removal kits, See Instructions, # 30 each, Refills 0, Tot. Refills 0, Maintenance, use as needed for daily dressing changes. 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, 08/26/21 10:44:00 EST, Compound Start Date: 08/26/21 Status: Ordered Tylenol with Codeine #4 1 tablet, By Mouth, Every 6 hours, 0 Refills, Maintenance, 01/28/22 11:52:00 EDT, Partial fill uponpatient request if the prescription is for a schedule II opioid drug. Start Date: 01/28/22 Status: Ordered Problem List Condition Confirmation Course Effective Dates Status Health St atus Informant Dyslipidemia Confirmed Active Hx of abscess of breast Confirmed Active Hirsutism Confirmed Active Hypertension Confirmed Active Cervical mass Confirmed Active Obesity Confirmed Active DM2 (diabetes mellitus, type 2) Confirmed Active Vitamin D deficiency Confirmed Active Social History Social History Type Response Tobacco Use: 4 or less cigar ettes(less than 1/4 pack)/day in last 30 days. Other: Quit 3 weeks ago. Sex Female Patient Care team information Care Team Personnel Name: Adelita Castillo RN Position: S ED RN W/OE and Tasks Member Role: Primary Care Nurse Name: Rudy Huber RN Position: [facility] RN Member Role: Primary Care Nurse Name: Hasmukh Buckner RN Position: S RN Member Role: Primary Care Nurse Name: Cruz Farooq Position: Reference Physician Member Role: PCP Address: Address: [address] [place] [address]- Name: Kay Sewell RN Position: S RN Member Role: Primary Care Nurse Name: Valentin Parish RN Position: [facility] RN Member Role: Primary Care Nurse Name: Faviola Irvin RN Position: [facility] RN Member Role: Primary Care Nurse Name: Jonathan Marquez RN Position: [facility] RN Member Role: Primary Care Nurse Name: Eugenia Pichardo RN Position: [facility] RN Member Role: Primary Care Nurse Name: Savannah Tyler RN Position: [facility] RN Member Role: Primary Care Nurse Name: Tayler Horn RN Position: [facility] RN Member Role: Primary Care Nurse Name: Francy Nava LPN Position: [facility] RN Member Role: Primary Care Nurse Care Team Related Persons Name: NICO FLORES Address: [address] [place] [address] Name: LIDIA VAZQUEZ Address: home [address] [place] [address] Name: MONIQUE VERONICA Address: home [place] Name: ELEN VERONICA Address: home [address] [place] [address]
--- OUTSIDE RECORDS SUMMARY | 2024-05-09 09:12 | XMS_ITS | Continuity of Care Document ---
Author Organization [facility] Address Unknown Care Team Providers Care Workforce Planning Analyst Name Role Phone Maverick Pardo MD Primary Care Physician Encounter [facility] Date(s): 09/06/21 - 10/06/21 [facility] Allergies, Adverse Reactions, Alerts Substance Reaction Severity Status Adhesive Bandage rash Active Latex rash Active Immunizations Not Given [...] EDT, Compound Start Date: 10/06/21 Status: Ordered acetaminophen 325 mg oral tablet [...] EST, Powder Start Date: 06/14/21 Status: Ordered atorvastatin 40 mg oral tablet 2 tablet = 80 mg, By Mouth, Daily in AM, # 90 tablet, 0 Refills, Maintenance, 06/14/21 1:09:00 EST,Tablet, Partial fill upon patient request if the prescription is for a schedule II opioid drug. Start Date: 06/14/21 Status: Ordered Colace sodium 100 mg oral capsule 100 mg, 1, capsule, By Mouth, 2 times a day, PRN, # 60 capsule, Refills 6, Tot. Refills 6, Maintenance, for constipation, 09/06/21 9:56:00 EST, Route to Pharmacy Electronically, [facility][id number], Partial fill upon patient request if the prescription... Start Date: 09/06/21 Stop Date: 04/04/22 Status: Ordered Colace sodium 100 mg oral capsule 100 mg, 1, capsule, By Mouth, 2 times a day, PRN, # 20 capsule, Refills 0, Tot. Refills 0, Maintenance, for constipation, 07/17/21 10:44:00 EST, Route to Pharmacy Electronically, [facility][id number], Partial fill upon patient request if the prescriptio... Start Date: 07/17/21 Status: Ordered Colace sodium 100 mg oral capsule 100 mg, 1, capsule, By Mouth, 2 times a day, PRN, # 60 capsule, Refills 2, Tot. Refills 2, Maintenance, for constipation, 08/27/21 11:03:00 EST, Route to Pharmacy Electronically, [id number], Partial fill upon patient request if the prescriptio... Start Date: 08/27/21 Stop Date: 11/25/21 Status: Ordered Lantus Solostar Pen 100 units/mL subcutaneous solution = 30 units, Subcutaneous Injection, Daily at bedtime, # 10 mL, 2 Refills, Maintenance, 06/16/21 15:25:00 EST, Injection, [id number], Partial fill upon patient request if the prescription is for a schedule II opioid drug., 166, cm, 06/16/21 14:... Start Date: 06/16/21 Status: Ordered lisinopril 2.5 mg oral tablet [...] EST, Supply Start Date: 07/12/21 Status: Ordered oxyCODONE 5 mg oral tablet 5 mg, 1, tablet, By Mouth, Every 6 hours, PRN, # 28 tablet, Refills 0, Tot. Refills 0, Maintenance,as needed for pain, 08/11/21 11:27:00 EST, Route to Pharmacy Electronically, [id number], Partial fill upon patient request if the prescription... Start Date: 08/11/21 Status: Ordered oxyCODONE 5 mg oral tablet 5 mg, 1, tablet, By Mouth, Every 6 hours, PRN, # 28 tablet, Refills 0, Tot. Refills 0, Maintenance,as needed for pain, 08/17/21 10:32:00 EST, Route to Pharmacy Electronically, [id number], Partial fill upon patient request if the prescription... Start Date: 08/17/21 Status: Ordered Readi-Cat 2 oral suspension See Instructions, Readi-cat 2 2 bottle 450 mL Dx:, # 900 mL, 0 Refills, Maintenance, 09/01/21 13:18:00 EST, [id number], Partial fill upon patient request if the prescription is for a scheduleII opioid drug., Readi-cat 2; 2 bottle 450 mL;... Start Date: 09/01/21 Status: Ordered super sponges super sponges, See [...] EST, Compound Start Date: 08/26/21 Status: Ordered Problem List Condition Effective Dates Status Health Status Inform ant Dyslipidemia(Confirmed) Active Hx of abscess of breast(Confirmed) Active Hirsutism(Confirmed) Active Hypertension(Confirmed) Active Cervical mass(Confirmed) Active Obese class II(Confirmed) Active Obesity(Confirmed) Active DM2 (diabetes mellitus, type 2)(Confirmed) Active Vitamin D deficiency(Confirmed) Active Social History Social History Type Response Smoking Status 10 or more cigarette s (1/2 pack or more)/day in last 30 days entered on: 07/13/21 Sex
--- OUTSIDE RECORDS SUMMARY | 2024-05-09 09:12 | XMS_ITS | Continuity of Care Document ---
Author Organization [facility] Address Unknown Care Team Providers Care Finnish Rubber Name Role Phone Maverick Pardo MD Primary Care Physician [place] [facility] [place]21 - 08/30/21 [facility] Attending Physician: Elizabeth Olmstead MD Referring Physician: Maverick Pardo MD Allergies, Adverse Reactions, Alerts Substance Reaction Severity Status Adhesive Bandage rash Active Latex rash Active Immunizations Not Given Vaccine Date Status Refusal Reason influenza virus vaccine, inactivated 07/17/21 Not Given Patient Refuses Medications 1/2 inch plain packing strip 1/2 inch plain packing strip, See Instructions, # 2 each, Refills 1, Tot. Refills 1, Maintenance, 1/2 inch plain packing. Lightly pack abdomen wound daily. 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 Start Date: 06/14/21 Status: Ordered Colace sodium 100 mg oral capsule 100 mg, 1, capsule, By Mouth, 2 times a day, PRN, # 20 capsule, Refills 0, Tot. Refills 0, Maintenance, for constipation, 07/17/21 10:44:00 EST, Route to Pharmacy Electronically, [facility]/pharmacy #[id number], Partial fill upon patient request if the prescriptio... Start Date: 07/17/21 Status: Ordered Colace sodium 100 mg oral capsule 100 mg, 1, capsule, By Mouth, 2 times a day, PRN, # 60 capsule, Refills 2, Tot. Refills 2, Maintenance, for constipation, 08/27/21 11:03:00 EST, Route to Pharmacy Electronically, [facility]/pharmacy #[id number], Partial fill upon patient request if the prescriptio... Start Date: 08/27/21 Stop Date: 11/25/21 Status: Ordered Extra absorbant 5 x 9in adominal pads Extra absorbant 5 x 9in adominal pads, See Instructions, # 30 each, Refills 1, Tot. Refills 1, Maintenance, change with daily packing. 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 Refills 0, Maintenance, 08/03/21 15:12:00 EST, Route to Pharmacy Electronically, [facility], Partial fill uponpatient request if the prescription is for a schedu... Start Date: 08/03/21 Stop Date: 08/08/21 Status: Ordered Lantus Solostar Pen 100 units/mL [...] opioid drug. Start Date: 06/14/21 Status: Ordered [facility] Rx Vitamin D3 2000IU, Daily, Refills 0, Maintenance, 07/12/21 9:32:00 EST, Supply Start Date: 07/12/21 [...] the prescription... Start Date: 08/17/21 Status: Ordered oxyCODONE 5 mg oral tablet 5 mg, 1, tablet, By Mouth, Every 8 hours, PRN, for 7 days, # 21 tablet, Refills 0, Tot. Refills 0, Acute 09/03/21 11:12:00 EST, post op,pain, moderate, 08/27/21 11:12:00 EST, Route to Pharmacy Electronically, [facility]/pharmacy #[id number], Partial fill upon leslee... Start Date: 08/27/21 Stop Date: 09/03/21 Status: Ordered super sponges super sponges, See [...] Hypertension(Confirmed) Active Cervical mass(Confirmed) Active Obese class I(Confirmed) Active Obesity(Confirmed) Active DM2 (diabetes mellitus, type 2)(Confirmed) Active Vitamin D deficiency(Confirmed) Active Social History Social History Type Response Smoking Status 10 or more cigarette s (1/2 pack or more)/day in last 30 days entered on: 07/13/21 Sex
--- OUTSIDE RECORDS SUMMARY | 2024-05-09 09:12 | XMS_ITS | Continuity of Care Document ---
Author Organization [facility] Address [address] [place] [address] [address] [place] [address]- Care Team Providers Care Gang Rider Name Role Phone Cruz Farooq Primary Care Physician [place] [facility] [place](s[place] 07/19/23 - 07/26/[address] [place] [address]- Attending Physician: Caty Spears MD Referring Physician: Cruz Farooq Allergies, Adverse Reactions, Alerts Substance Reaction Severity Status Omnipaque 350 Anaphelaxis Active Adhesive Bandage rash Active Latex rash Active Contrast Dye Anaphelaxis Active Medications 10cm medipore tape 10cm medipore tape, [...] EST, Powder Start Date: 06/14/21 Status: Ordered aspirin 81 mg oral delayed release tablet 81 mg, 1, tablet, By Mouth, Daily, # 30 tablet, Refills 1, Tot. Refills 1, Maintenance, 09/21/22 14:52:00 EST, Route to Pharmacy Electronically, [facility], Partial fill upon patient request if [...] 0 Refills, Soft Stop, 12/16/22 14:29:00 EDT, [facility], Partial fill upon patient request if the prescriptionis for a schedule II opioid drug., 165.1, cm, 12/16... Start Date: 12/16/22 Status: Ordered fenofibrate 145 mg oral tablet 1 tablet = 145 mg, By Mouth, Daily, # 30 tablet, 0 Refills, Maintenance, 09/21/22 14:53:00 EST, Tablet, [facility], Partial fill upon patient request if [...] opioid drug. Start Date: 09/21/22 Status: Ordered Misc Rx 50,0000 units, By Mouth, Daily, Refills 0, Maintenance, vitamin d3, 07/12/21 9:32:00 EST, Supply Start Date: 07/12/21 Status: Ordered Mounjaro 5 mg/0.5 mL subcutaneous solution = 5 mg, Subcutaneous Infusion, 0 Refills, Maintenance, 12/16/22 9:51:00 EDT, Partial fill upon patient request if the prescription is for a schedule II opioid drug. Start Date: 12/16/22 Status: Ordered Nicorette 2 mg oral transmucosal [...] tablet 5 mg, 1, tablet, By Mouth, 2 times a day, PRN, # 10 tablet, Refills 0, Tot. Refills 0, Acute 08/25/23 23:30:00 EST, for pain, 07/25/23 23:29:00 EST, Route to Pharmacy Electronically, [facility]/pharmacy #[id number], Partial fill upon patient request if the prescri... Start Date: 07/25/23 Stop Date: 08/25/23 Status: Ordered oxyCODONE 5 mg oral tablet 5 mg, 1, tablet, By Mouth, Every 6 hours, PRN, # 28 tablet, Refills 0, Tot. Refills 0, Maintenance,as needed for pain, 08/17/21 10:32:00 EST, Route to Pharmacy Electronically, [facility]/pharmacy #[id number], Partial fill upon patient request if the [...] Cervical mass Confirmed Active Obesity Confirmed Active Severe obesity (BMI 35.0-39.9) with comorbidity Confirmed Active DM2 (diabetes mellitus, type 2) Confirmed Active Vitamin D deficiency Confirmed Active Social History Social History Type Response Smoking Status Former smoker, quit more than 30 days ago; Other: Quit several months ago; entered on: 02/07/23 Sex Female Patient Care team information Care Team Personnel Name: .Adelita Garces RN Position: S ED RN W/OE and Tasks Member Role: Primary Care Nurse Name: Rudy Huber RN Position: S RN Member Role: Primary Care Nurse Name: Hasmukh Buckner RN Position: S RN Member Role: Primary Care Nurse Name: Cruz Farooq Position: Reference Physician Member Role: PCP Address: Address: [address] [place], [place] [address] Name: Kay Sewell RN Position: [facility] SN RN Member Role: Primary Care Nurse Name: Valentin Parish RN Position: [facility] RN Member Role: Primary Care Nurse Name: Faviola Irvin RN Position: [facility] RN Member Role: Primary Care Nurse Name: Jonathan Marquez RN Position: [facility] RN Member Role: Primary Care Nurse Name: Eugenia Pichardo RN Position: [facility] RN Member Role: Primary Care Nurse Name: Savannah Tyler RN Position: [facility] RN Member Role: Primary Care Nurse Name: Tayler Horn RN Position: [facility] RN Member Role: Primary Care Nurse Name: Francy Nava LPN Position: [facility] RN Member Role: Primary Care Nurse Care Team Related Persons Name: NICO FLORES Address: home [address] [place] [address] Name: LIDIA VAZQUEZ Address: home [address] [place] [address] Name: MONIQUE VERONICA Address: home UNK Name: ELEN VERONICA Address: home [address] [place] [address]
--- OUTSIDE RECORDS SUMMARY | 2024-05-09 09:12 | XMS_ITS | Continuity of Care Document ---
Author Organization [facility] Address [address] [place] [address] [address] [place] [address]- Care Team Providers Care Gate Technician Name Role Phone Cruz Farooq Primary Care Physician [place] [facility] [place] 10/08/[address] [place] [address]- Allergies, Adverse Reactions, Alerts Substance Reaction Severity [...] 09/21/22 14:52:00 EST, Route to Pharmacy Electronically, [facility], Partial fill upon patient request [...] opioid drug. Start Date: 06/14/21 Status: Ordered fenofibrate 145 mg oral tablet 1 tablet = 145 mg, By Mouth, Daily, # 30 tablet, 0 Refills, Maintenance, 09/21/22 14:53:00 EST, Tablet, [facility], Partial fill upon patient request [...] EST, Supply Start Date: 07/12/21 Status: Ordered Nicorette 2 mg oral transmucosal [...] 08/17/21 10:32:00 EST, Route to Pharmacy Electronically, [facility]/pharmacy #[id number], Partial fill upon patient request if the [...] Hypertension Confirmed Active Cervical mass Confirmed Active Obese class II Confirmed Active Obesity Confirmed Active Severe obesity (BMI 35.0-39.9) with comorbidity Confirmed Active DM2 (diabetes mellitus, type 2) Confirmed Active Vitamin D deficiency Confirmed Active Social History Social History Type Response Tobacco Use: 4 or less cigar ettes(less than 1/4 pack)/day in last 30 days. Other: Quit 3 weeks ago. Sex Patient Care team information Care Team Personnel Name: Rudy Huber RN Position: [facility] RN Member Role: Primary Care Nurse Name: Hasmukh Buckner RN Position: S RN Member Role: Primary Care Nurse Name: Cruz Farooq Position: Reference Physician Member Role: PCP Address: Address: [address] [place] [address] [address] [place] [id number] Name: Kay Sewell RN Position: S RN Member Role: Primary Care Nurse Name: Valentin Parish RN Position: S RN Member Role: Primary Care Nurse Name: Faviola Irvin RN Position: S RN Member Role: Primary Care Nurse Name: Jonathan Marquez RN Position: S RN Member Role: Primary Care Nurse Name: Eugenia Pichardo RN Position: S RN Member Role: Primary Care Nurse Name: Savannah Tyler RN Position: S RN Member Role: Primary Care Nurse Name: Tayler Horn RN Position: S RN Member Role: Primary Care Nurse Name: Francy Nava LPN Position: S RN Member Role: Primary Care Nurse Care Team Related Persons Name: SANDRA NICO Address: home [address] [place] [address] Name: LIDIA VAZQUEZ Address: [address] [place] [address] Name: MONIQUE VERONICA Address: home UNK Name: ELEN VERONICA Address: home [address] [place] [address]
--- OUTSIDE RECORDS SUMMARY | 2024-05-09 09:12 | XMS_ITS | Continuity of Care Document ---
Author Organization [facility] Address Unknown Care Team Providers Care Solar Energy System Installer Helper Name Role Phone Maverick Pardo MD Primary Care Physician [place] [facility] [place] 09/28/21 - 10/05/21 [facility] Attending Physician: Elizabeth Olmstead MD [...] EST, Compound Start Date: 08/26/21 Status: Ordered 6 x 6 super sponge 6 x 6 super sponge, See Instructions, # 90 each, Refills 1, Tot. Refills 1, Maintenance, use 3 super sponge. Lightly pack abdomen wound daily. 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 Start Date: 09/06/21 Stop Date: 04/04/22 Status: Ordered Colace sodium 100 mg oral capsule 100 mg, 1, capsule, By Mouth, 2 times a day, PRN, # 20 capsule, Refills 0, Tot. Refills 0, Maintenance, for constipation, 07/17/21 10:44:00 EST, Route to Pharmacy Electronically, [facility]/pharmacy #[id number], Partial fill upon patient request [...] EST, Compound Start Date: 08/26/21 Status: Ordered Lantus Solostar Pen 100 units/mL [...] type 2)(Confirmed) Active Vitamin D deficiency(Confirmed) Active Vital Signs Most recent to oldest [Reference Range]: 1 Height 165.1 cm (09/28/21 10:44 AM) Weight 95.9 kg (09/28/21 10:44 AM) Pulse Rate [55-90 bpm] 93 bpm *H* (09/28/21 10:44 AM) Body Mass Index [18.5-24.99] 35.18 *>HHI* (09/28/21 10:44 AM) Blood Pressure [90-138/55-84 mm Hg] 122/ 82mm Hg (09/28/21 10:44 AM) Temperature [96.8-100.4 DegF] 96.9 DegF (09/28/21 10:44 AM) Blood pressure sites Arm, right (09/28/21 10:44 AM) Temperature Route Temporal (09/28/21 10:44 AM) Social History Social History Type Response Smoking Status 10 or more cigarette s (1/2 pack or more)/day in last 30 days entered on: 07/13/21 Sex
--- OUTSIDE RECORDS SUMMARY | 2024-05-09 09:12 | XMS_ITS | Continuity of Care Document ---
Author Organization [facility] Address [address] [place] [address]- Care Team Providers Care Distribution Operation Supervisor Name Role Phone Maverick Pardo MD Primary Care Physician [place] [facility] [place] Date(s): 07/14/21 - 07/14/[address] [address] Discharge Disposition: A-D/C Home Attending Physician: Andrés Umaña MD Admitting Physician: Andrés Umaña MD Referring Physician: Andrés Umaña MD Allergies, Adverse Reactions, Alerts Substance Reaction Severity Status Adhesive Bandage rash Active Latex rash Active Medications Advair Diskus 250 mcg-50 mcg inhalation powder [...] opioid drug. Start Date: 06/14/21 Status: Ordered Lantus Solostar Pen 100 units/mL subcutaneous solution = 30 units, Subcutaneous Injection, Daily at bedtime, # 10 mL, 2 Refills, Maintenance, 06/16/21 15:25:00 EST, Injection, [id number], Partial fill upon patient request if the [...] opioid drug. Start Date: 06/14/21 Status: Ordered [facility] Rx Vitamin D3 2000IU, Daily, Refills 0, Maintenance, 07/12/21 9:32:00 EST, Supply Start Date: 07/12/21 Status: Ordered oxyCODONE 5 mg oral tablet 5 mg, 1, tablet, By Mouth, Every 6 hours, PRN, # 16 tablet, Refills 0, Tot. Refills 0, Maintenance,for pain, 06/29/21 13:03:00 EST, Route to Pharmacy Electronically, [facility]/pharmacy #[id number], Partial fillupon patient request if the prescription is for a s... Start Date: 06/29/21 Status: Ordered Problem List Condition Effective Dates Status Health Status Inform ant Dyslipidemia(Confirmed) Active Hx of abscess of breast(Confirmed) Active Hirsutism(Confirmed) Active Hypertension(Confirmed) Active Cervical mass(Confirmed) Active Obese class II(Confirmed) Active Obesity(Confirmed) Active DM2 (diabetes mellitus, type 2)(Confirmed) Active Vitamin D deficiency(Confirmed) Active Vital Signs Most recent to oldest [Reference Range]: 1 2 3 Weight 94.9 kg (07/14/21 8:17 AM) Oxygen Saturation [94-100 %] 98 % (07/14/21 11:45 AM) 98 % (07/14/21 11:30 AM) 94 % (07/14/21 11:15 AM) Pulse Rate [55-90 bpm] 95 bpm *H* (07/14/21 8:17 AM) Blood Pressure [90-138/55-84 mm Hg] 129/86mm Hg (07/14/21 11:45 AM) 133/88mm Hg (07/14/21 11:30 AM) 123/78mm Hg (07/14/21 11:15 AM) Respiratory Rate [16-30 br/min] 21 br/min (07/14/21 11:45 AM) 26 br/min (07/14/21 11:30 AM) 23 br/min (07/14/21 11:15 AM) Temperature [96.8-100.4 DegF] 96.9 DegF (07/14/21 11:00 AM) 97.5 DegF (07/14/21 10:30 AM) 98.4 DegF (07/14/21 8:17 AM) Liters per Minute 6 L/min (07/14/21 10:30 AM) Mode of Delivery (Oxygen) Room air (07/14/21 12:15 PM) Room air (07/14/21 12:00 PM) Room air (07/14/21 11:45 AM) Blood pressure sites Arm, right (07/14/21 10:45 AM) Arm, right (07/14/21 10:30 AM) Arm, left (07/14/21 8:17 AM) Temperature Route Temporal (07/14/21 10:30 AM) Temporal (07/14/21 8:17 AM) Dry Weight 94.9 kg (07/14/21 8:17 AM) Weight Obtained Via Standing scale (07/14/21 8:17 AM) Dry Weight Obtained Via Standing scale (07/14/21 8:17 AM) Social History Social History Type Response Smoking Status 10 or more cigarette s (1/2 pack or more)/day in last 30 days entered on: 07/13/21 Sex
--- OUTSIDE RECORDS SUMMARY | 2024-05-09 09:12 | XMS_ITS | Continuity of Care Document ---
Author Organization [facility] Address Unknown Care Team Providers Care Anthropometrist Name Role Phone Maverick Pardo MD Primary Care Physician En[place] [facility] [place] Date(s): 06/29/21 - 07/29/21 [facility] Allergies, Adverse Reactions, Alerts Substance Reaction Severity Status Adhesive Bandage rash Active Latex rash Active Immunizations Not Given Vaccine Date Status Refusal Reason influenza virus vaccine, inactivated 07/17/21 Not Given Patient Refuses Medications Advair Diskus 250 mcg-50 mcg inhalation [...] 07/17/21 10:44:00 EST, Route to Pharmacy Electronically, [facility]/pharmacy #[id number], Partial fill upon patient request if the prescriptio... Start Date: 07/17/21 Status: Ordered Lantus Solostar Pen 100 units/mL subcutaneous solution = 30 units, Subcutaneous Injection, Daily at bedtime, # 10 mL, 2 Refills, Maintenance, 06/16/21 15:25:00 EST, Injection, [id number], Partial fill upon patient request if the prescription is for a schedule II opioid drug., 166, cm, 11/24/21 14:... Start Date: 06/16/21 Status: Ordered lisinopril 2.5 mg oral tablet 2.5 mg, 1, tablet, By Mouth, Daily, # 30 tablet, Refills 0, Maintenance, 06/14/21 1:09:00 EST, Partial fill upon patient request if the prescription is for a schedule II opioid drug. Start Date: 06/14/21 Status: Ordered [facility] Rx Vitamin D3 2000IU, Daily, Refills 0, Maintenance, 07/12/21 9:32:00 EST, Supply Start Date: 07/12/21 Status: Ordered oxyCODONE 5 mg oral tablet 5 mg, 1, tablet, By Mouth, Every 6 hours, PRN, # 16 tablet, Refills 0, Tot. Refills 0, Maintenance,for pain, 06/29/21 13:03:00 EST, Route to Pharmacy Electronically, [facility]/pharmacy #[id number], Partial fillupon patient request if the prescription [...]
--- OUTSIDE RECORDS SUMMARY | 2024-05-09 09:12 | XMS_ITS | Continuity of Care Document ---
Author Organization [facility] Address Unknown Care Team Providers Care Social Staff Worker Name Role Phone Maverick Pardo MD Primary Care Physician [phone] [place] [facility] [place]): [place] [facility] Attending Physician: Elizabeth Olmstead [...] 09/06/21 9:56:00 EST, Route to Pharmacy Electronically, [facility]/pharmacy #[id number], Partial fill upon patient request if the prescription... Start Date: 09/06/21 Stop Date: 04/04/22 Status: Ordered Colace sodium 100 mg oral capsule 100 mg, 1, capsule, By Mouth, 2 times a day, PRN, # 20 capsule, Refills 0, Tot. Refills 0, Maintenance, for constipation, 07/17/21 10:44:00 EST, Route to Pharmacy Electronically, [facility]/pharmacy #[id number], Partial fill upon patient request [...] tablet, By Mouth, Every 6 hours, PRN, for 7 days, # 28 tablet, Refills 0, Tot. Refills 0, Acute 09/13/21 9:56:00 EST, post op,pain, moderate, 09/06/21 9:56:00 EST, Route to [facility], [id number], Partial fill upon patien... Start Date: 09/06/21 Stop Date: 09/13/21 Status: Ordered oxyCODONE 5 mg oral tablet [...] 08/17/21 10:32:00 EST, Route to Pharmacy Electronically, [facility]/pharmacy #[id number], Partial fill upon patient request if the prescription... Start Date: 08/17/21 Status: Ordered Readi-Cat 2 oral suspension See Instructions, Readi-cat 2 2 bottle 450 mL Dx:, # 900 mL, 0 Refills, Maintenance, 09/01/21 13:18:00 EST, [facility]/pharmacy #[id number], Partial fill upon patient request [...]
--- OUTSIDE RECORDS SUMMARY | 2024-05-09 09:12 | XMS_ITS | Continuity of Care Document ---
Author Organization [facility] Address [address] [place] [address] [address] [place] [address]- Care Team Providers Care Live Games Dealer Name Role Phone Cruz Farooq Primary Care Physician [phone] Encounter [facility] [place] Date(s): 02/19/24 - 03/20/24 [facility] [address] [place] [address]- Allergies, Adverse Reactions, Alerts Substance Reaction Severity Status Omnipaque 350 Anaphelaxis Active Adhesive Bandage rash Active Contrast Dye Anaphelaxis Active Latex rash Active Medications 10cm medipore tape 10cm medipore [...] 09/21/22 14:52:00 EST, Route to Pharmacy Electronically, [facility], Partial fill upon patient request if [...] 0 Refills, Soft Stop, 12/16/22 14:29:00 EDT, [facility], Partial fill upon patient request if the prescriptionis for a schedule II opioid drug., 165.1, cm, 12/16... Start Date: 12/16/22 Status: Ordered fenofibrate 145 mg oral tablet 1 tablet = 145 mg, By Mouth, Daily, # 30 tablet, 0 Refills, Maintenance, 09/21/22 14:53:00 EST, Tablet, [facility], Partial fill upon patient [...] opioid drug. Start Date: 09/21/22 Status: Ordered Mis Rx 50,0000 units, By Mouth, Daily, Refills [...] 08/17/21 10:32:00 EST, Route to Pharmacy Electronically, [facility]/pharmacy #[id number], Partial fill upon patient request if the [...] Effective Dates Status Health St atus Informant COVID-19 1 Confirmed 03/14/24 Active Dyslipidemia Confirmed Active Hx of abscess of breast Confirmed Active Hirsutism Confirmed Active Hypertension Confirmed Active Cervical mass Confirmed Active Obesity Confirmed Active Severe obesity (BMI 35.0-39.9) with comorbidity Confirmed Active DM2 (diabetes mellitus, type 2) Confirmed Active Vitamin D deficiency Confirmed Active 1Problem added by Discern Expert Social History Social History Type Response Smoking Status Former smoker, quit more than 30 days ago; Other: Quit several months ago; entered on: 02/07/23 Sex Female Patient Care team information Care Team Personnel Name: Rudy Huber RN Position: [facility] RN Member Role: Primary Care Nurse Name: Hasmukh Buckner RN Position: [facility] RN Member Role: Primary Care Nurse Name: Cruz Farooq Position: Reference Physician Member Role: PCP Address: Address: [address] [place] [address] [address] [place] [address] Name: Kay Sewell RN Position: [facility] SN RN Member Role: Primary Care Nurse Name: Valentin Parish RN Position: [facility] RN Member Role: Primary Care Nurse Name: Faviola Irvin RN Position: S RN Member Role: Primary Care Nurse Name: Jonathan Marquez RN Position: [facility] RN Member Role: Primary Care Nurse Name: Eugenia Pichardo RN Position: [facility] RN Member Role: Primary Care Nurse Name: Savannah Tyler RN Position: S RN Member Role: Primary Care Nurse Name: Tayler Horn RN Position: [facility] RN Member Role: Primary Care Nurse Name: Francy Nava LPN Position: [facility] RN Member Role: Primary Care Nurse Care Team Related Persons Name: ISIDORONASIRLeighJUAN DIEGOPHOENIX Address: [address] [place] [address] Name: LIDIA VAZQUEZ Address: [address] [place] [address] Name: MONIQUE VERONICA Address: home UNK Name: ELEN VERONICA Address: [address] [place] [address]
--- OUTSIDE RECORDS SUMMARY | 2024-05-09 09:12 | XMS_ITS | Continuity of Care Document ---
Author Organization [facility] Address Unknown Care Team Providers Care Scientific Director Name Role Phone Maverick Pardo MD Primary Care Physician [phone] Encounter [facility] [place] Date(s): 08/23/21 - 09/23/21 [facility] Attending Physician: Elizabeth Olmstead MD [...] 09/06/21 9:56:00 EST, Route to Pharmacy Electronically, [facility]/pharmacy #[id number], Partial fill upon patient request if the prescription... Start Date: 09/06/21 Stop Date: 04/04/22 Status: Ordered Colace sodium 100 mg oral capsule 100 mg, 1, capsule, By Mouth, 2 times a day, PRN, # 20 capsule, Refills 0, Tot. Refills 0, Maintenance, for constipation, 07/17/21 10:44:00 EST, Route to Pharmacy Electronically, [facility]/pharmacy #[id number], Partial fill upon [...]
--- OUTSIDE RECORDS SUMMARY | 2024-05-09 09:12 | XMS_ITS | Continuity of Care Document ---
Author Organization [facility] Address [address] [place] [address] [address] [place] [address]- Care Team Providers Care Production Hardener Name Role Phone Cruz Farooq Primary Care Physician Encounter [facility] Date(s): 12/06/22 - 01/05/[address] [place], [place] [address] Allergies, Adverse Reactions, Alerts Substance Reaction Severity [...] 09/21/22 14:52:00 EST, Route to Pharmacy Electronically, [facility], Partial fill upon patient [...] 0 Refills, Soft Stop, 12/16/22 14:29:00 EDT, [facility] 3, Partial fill upon patient request if the prescriptionis for a schedule II opioid drug., 165.1, cm, 12/16... Start Date: 12/16/22 Status: Ordered fenofibrate 145 mg oral tablet 1 tablet = 145 mg, By Mouth, Daily, # 30 tablet, 0 Refills, Maintenance, 09/21/22 14:53:00 EST, Tablet, [facility] 3, Partial fill upon patient request [...] 08/17/21 10:32:00 EST, Route to Pharmacy Electronically, [facility]/pharmacy #[id number], Partial fill upon patient request if the [...] Team Personnel Name: .Adelita Garces RN Position: [facility] ED RN W/OE and Tasks Member Role: Primary Care Nurse Name: Rudy Huber RN Position: [facility] RN Member Role: Primary Care Nurse Name: Hasmukh Buckner RN Position: S RN Member Role: Primary Care Nurse Name: Cruz Farooq Position: Reference Physician Member Role: PCP Address: Address: [address] [facility] [address] [place] [address]- Name: Kay Sewell RN Position: S RN Member Role: Primary Care Nurse Name: Valentin Parish RN Position: S RN Member Role: Primary Care Nurse Name: Faviola Irvin RN Position: [facility] RN Member Role: Primary Care Nurse Name: Jonathan Marquez RN Position: [facility] RN Member Role: Primary Care Nurse Name: Eugenia Pichardo RN Position: [facility] RN Member Role: Primary Care Nurse Name: Savannah Tyler RN Position: [facility] RN Member Role: Primary Care Nurse Name: Tayler Horn RN Position: [facility] RN Member Role: Primary Care Nurse Name: Francy Nava LPN Position: [facility] RN Member Role: Primary Care Nurse Care Team Related Persons Name: NICO FLORES Address: home [address] [place] [address] Name: LIDIA VAZQUEZ Address: home [address] [place] [address] Name: MONIQUE VERONICA Address: home UNK Name: ELEN VERONICA Address: home [address] [place] [address]
--- OUTSIDE RECORDS SUMMARY | 2024-05-09 09:12 | XMS_ITS | Continuity of Care Document ---
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 Name Role Phone Cruz Farooq Primary Care Physician [place] [facility] [place] 03/14/24 - 03/14/[address] [address]- Encounter Diagnosis Acute COVID-19(Final) - 03/14/24 Discharge Disposition: A-D/C Home Attending Physician: Efe Moore MD Admitting Physician: Efe Moore MD Referring Physician: Not on Staff, Referring MD Allergies, Adverse Reactions, Alerts Substance Reaction [...] 09/21/22 14:52:00 EST, Route to Pharmacy Electronically, [facility], Partial fill upon patient request if [...] 0 Refills, Soft Stop, 12/16/22 14:29:00 EDT, [facility], Partial fill upon patient request if the prescriptionis for a schedule II opioid drug., 165.1, cm, 12/16... Start Date: 12/16/22 Status: Ordered fenofibrate 145 mg oral tablet 1 tablet = 145 mg, By Mouth, Daily, # 30 tablet, 0 Refills, Maintenance, 09/21/22 14:53:00 EST, Tablet, [facility] [address] [facility], Partial fill upon patient request if [...] 10:32:00 EST, Route to Pharmacy Electronically, [facility]/pharmacy #[id number], Partial fill upon patient request if the [...] Condition Confirmation Course Effective Dates Status Health atus Informant COVID-19 1 Confirmed 03/14/24 Active Dyslipidemia Confirmed Active Hx of abscess of breast Confirmed Active Hirsutism Confirmed Active Hypertension Confirmed Active Cervical mass Confirmed Active Obesity Confirmed Active Severe obesity (BMI 35.0-39.9) with comorbidity Confirmed Active DM2 (diabetes mellitus, type 2) Confirmed Active Vitamin D deficiency Confirmed Active 1Problem added by Discern Expert Results Radiology Reports * Exam Date Time Procedure Performing Provider Status 03/14/24 8:38 PM Chest 2 Views Frontal and Lat William Cerda (Verified) Notes: (Chest 2 Views Frontal and Lat) Reason For Exam: Shortness of Breath, Fever;Other: RESULT: Chest 2 Views Frontal and Lat Chest 2 Views Frontal and Lat Hx of Present Illness: Patient Reports fever chills, SOB, Chest congestion, headache and nausea x 4days. Blood sugars running high. Recent contact with Covid positive person. Did not self-test.; Reason: Other:; Shortness of Breath, Fever; Clinical Question(s): Pneumonia COMPARISON: 12/20/2022. FINDINGS: LINES AND TUBES: None. LUNGS AND PLEURA: Clear lungs. Normal pulmonary vascularity. No pleural effusion. No pneumothorax. HEART, MEDIASTINUM AND RIRI: Heart is normal in size. Normal mediastinal and hilar contour. BONES AND SOFT TISSUES: No acute abnormality. IMPRESSION: No acute abnormality. WSN: [id number] Ordering Physician: Efe Moore Dictated By: Marino Roman MD Dictated Date/Time: 03/14/24 8:43 pm Reviewed By: Marino Roman MD Signed By: Marino Roman MD Signed Date/Time: 03/14/24 8:43 pm Transcribed By: HAIDER Transcribed Date/Time: 03/14/24 8:43 pm Vital Signs Most recent to oldest [Reference Range]: 1 2 3 Height 165 cm (03/14/24 5:50 PM) 165 cm (03/14/24 5:41 PM) Oxygen Saturation [94-100 %] 96 % (03/14/24 10:26 PM) 97 % (03/14/24 8:39 PM) 96 % (03/14/24 5:41 PM) Pulse Rate [55-90 bpm] 102 bpm *H* (03/14/24 10:26 PM) 101 bpm *H* (03/14/24 8:39 PM) 108 bpm *H* (03/14/24 5:41 PM) Blood Pressure [90-138/55-84 mm Hg] 136/93mm Hg (03/14/24 10:26 PM) 132/83mm Hg (03/14/24 8:39 PM) 108/82mm Hg (03/14/24 5:41 PM) Respiratory Rate [16-30 br/min] 20 br/min (03/14/24 10:26 PM) 20 br/min (03/14/24 8:39 PM) 18 br/min (03/14/24 5:41 PM) Temperature [96.8-100.4 DegF] 98.1 DegF (03/14/24 10:26 PM) 98.4 DegF (03/14/24 8:39 PM) 98.2 DegF (03/14/24 5:41 PM) Mode of Delivery (Oxygen) Room air (03/14/24 10:26 PM) Room air (03/14/24 8:39 PM) Room air (03/14/24 5:41 PM) Blood pressure sites Arm, right (03/14/24 10:26 PM) Arm, right (03/14/24 8:39 PM) Arm, right (03/14/24 5:41 PM) Temperature Route Oral (03/14/24 10:26 PM) Oral (03/14/24 8:39 PM) Oral (03/14/24 5:41 PM) Social History Social History Type Response Smoking Status Former smoker, quit more than 30 days ago; Other: Quit several months ago; entered on: 02/07/23 Sex Female Note * Efe Moore MD: PERFORM, SIGN, VERIFY Event Display: Patient Education Handout Authored Date: * Efe Moore MD: PERFORM Event Display: Patient Education Leaflets Authored Date: Understanding Coronavirus Disease 2019 COVID-19 ?? 323 Understanding Coronavirus Disease 2019 (COVID-19) Coronavirus disease 2019 (COVID-19) is a respiratory illness. It's caused by a new (novel) coronavirus called SARS-CoV-2. There are many types of coronavirus. Coronaviruses are a very common cause ofbronchitis. They may sometimes cause lung infection (pneumonia). Symptoms can range from mild to severe respiratory illness. These viruses are also found in some animals. COVID-19 was first found in people in [facility], in late 2019. In 2020, several cases of COVID-19 have been confirmed in the [place] COVID-19 is a rapidly- emerging infectious disease. This means that scientists are actively researching it.??There are information updates regularly. Public health officials are working to find the source. How the virus spreads is not yet fully understood, but it seems to spread and infect people fairly easily. Some people who have been infected in an area may be unsure how or where they became infected. The virus may be spread through droplets of fluid that a person coughs or sneezes into the air. It may be spread if you touch a surface with virus on it, such as a handle or object, and then touch your eyes, nose, or mouth. For the latest information, visit the CDC website at www.cdc.gov/coronavirus/2019-ncov. Or call 203-SMX-JXKF (958-627-1267). What are the symptoms of COVID-19? Some people have no symptoms or mild symptoms. Symptoms may appear 2 to 14 days after contact with the virus. Symptoms can include: ??? Fever ??? Coughing ??? Trouble breathing What are possible complications from COVID-19? In many cases, this virus can cause infection (pneumonia) in both lungs. In some cases, this can cause . Certain people are at higher risk for complications. This includes older adults and people with serious chronic health conditions such as heart or lung disease or diabetes. How is COVID-19 diagnosed? Your healthcare provider will ask about your symptoms. He or she will also ask about your recent travel and contact with sick people. If your healthcare provider thinks you may have COVID-19, he or she will work closely with your local health department on testing. Follow all instructions from yourhealthcare provider. COVID-19 is diagnosed by: ??? Nose and throat swab. A cotton-tipped swab is wiped inside your nose or throat. This is done tocheck for viruses in your nasal mucus. ??? Sputum culture. A small sample of mucus coughed from your lungs (sputum) is collected if you have a cough. It's checked for the virus. How is COVID-19 treated? There is currently no medicine to treat the virus. Treatment is done to help your body while it fights the virus. This is known as supportive care. Supportive care may include: ??? Pain medicine. These include acetaminophen and ibuprofen. They are used to help ease pain and reduce fever. ??? Bed rest. This helps your body fight the illness. For severe illness, you may need to stay in the hospital. Care during severe illness may include: ??? IV (intravenous) fluids. These are given through a vein to help keep your body hydrated. ??? Oxygen. Supplemental oxygen or ventilation with a breathing machine (ventilator) may be given. This isdone so you get enough oxygen in your body. Are you at risk for COVID-19? You are at risk for infection if you ???ve been to a place where people have been sick with this virus or if there are people with COVID-19 in your area. You are at risk if you: ??? Recently traveled to an area with a COVID-19 outbreak ??? Had contact with a sick person who recently traveled to an area with a COVID-19 outbreak ??? Had contact with a person who was diagnosed with or who may have COVID-19 ?? How can COVID-19 be prevented? There is no vaccine yet. The best prevention is to not have contact with the virus. The CDC advisesthat people should not travel to areas where there are COVID-19 outbreaks right now for any reason that is not urgent. For the most current CDC travel advisories, visit the CDC website at www.cdc.gov/ coronavirus/2019-ncov/travelers. ? To help prevent spreading the infection, wash your hands often, or use an alcohol-based hand supervisor transferring and boxing. The CDC advises that you should not wear a facemask if you are not sick. Prepare and protect yourself from COVID-19: ??? Wash your hands often with soap and clean, running water for at least 20 seconds. ??? If you don't have access to soap and water, use an alcohol-based hand supervisor transferring and boxing often. Make sure it has at least 60% alcohol. ??? Don't touch your eyes, nose, or mouth unless you have clean hands. ??? As much as possible, don't touch high-touch public surfaces such as doorknobs. Don't shake hands. ??? Clean home and work surfaces often with disinfectant. ??? Cough or sneeze into a tissue, then throw the tissue into the trash. If you don't have tissues, cough or sneeze into the bend of your elbow. ??? Stay informed about COVID-19 in your area. Follow local instructions about being in public. Be aware of events in your community that may be postponed or canceled such as school and sporting events. You may be advised not to attend public gatherings. You will be advised to stay about 6 feet from others as much as possible. This is called social distancing. ??? Check your home supplies. Consider keeping a 2-week supply of medicines, food, and other needed household items. ??? Make a plan for chil dcare, work, and ways to stay in touch with others. Know who will help you if you get sick. ??? Don't be around people who are sick. ??? There is no evidence right now that animals spread SARS-CoV-2.But it's always a good idea to wash your hands after touching any animals. Don't touch animals thatmay be sick. ??? Don ???t share eating or drinking utensils with sick people. ??? Don???t kiss someone who is sick. If you were in an area with COVID-19 in the last 14 days: ??? Call your healthcare provider and follow all instructions. Your activities and where you go maybe restricted for up to 2 weeks. ??? Take your temperature every morning and evening for at least 14 days. This is to check for fever. Keep a record of the readings. ??? Watch for symptoms of the virus. Call your provider if you have symptoms. Call your provider first before going to any clinic or hospital. ??? Stay home if you are sick for any reason. If you are sick with COVID-19 symptoms: ??? Stay home. Call your healthcare provider and tell them you have symptoms of COVID-19. Do this before going to any hospital or clinic. Follow your provider's instructions. You may be advised to isolate yourself at home. This is called self-isolation or self-quarantine. ??? Don ???t panic. Keep in mind that other illnesses can cause similar symptoms. ??? Stay away from work, school, and public places. Limit physical contact with family members. Limit visitors. Don't kiss anyone or share eating or drinking utensils. Clean surfaces you touch with disinfectant. This is to help prevent the virus from spreading. ??? Cough or sneeze into a tissue, then throw away the tissue in the trash. If youdon't have tissues, cough or sneeze into the bend of your elbow. ??? Wear a facemask only if you have symptoms ??? If you need to go in to a hospital or clinic, expect that the healthcare staff will wear protective equipment such as masks, gowns, gloves, and eye protection. You may be put in a separate room. This is to prevent the possible virus from spreading. ??? Tell the healthcare staff about recent travel. This includes local travel on public transport. Staff may need to find other people you have been in contact with. ??? Follow all instructions the healthcare staff give you. If you have been diagnosed with COVID-19 ??? Stay home. Don ???t leave your home unless you need to get medical care. Don't go to work, school, or public areas. Don't use public transportation or taxis. ??? Follow all instructions from yourhealthcare provider. Call your healthcare provider???s office before going. They can prepare and give you instructions. This will help prevent the virus from spreading. ??? If you need to go to a hospital or clinic, expect that the healthcare staff will wear protective equipment such as masks, gowns, gloves, and eye protection. You may be put in a separate room. This is to prevent the possible virus from spreading. ??? Wear a face mask. This is to protect other people from your germs. If you are not able to wear a mask, your caregivers should. ??? Stay away from other people in your home. ???Limit contact with pets and animals. Although there are no reports of pets getting sick with COVID-19, consider limiting contact with pets until more is known. ??? Don???t share household items or food. ??? Cover your face with a tissue when you cough or sneeze. Throw the tissue away. Then wash your hands. ??? Wash your hands often. If you are caring for a sick person: ??? Follow all instructions from healthcare staff. ??? Wash your hands often. ??? Wear protective clothing as advised. ??? Make sure the sick person wears a mask. If they can't wear a mask, don't stay in the same room with the person. If you must be in the same room, wear a facemask. ??? Keep trackof the sick person???s symptoms. ??? Clean surfaces, fabrics, and laundry thoroughly. ??? Keep other people and pets away from the sick person. When to call your healthcare provider Call your healthcare provider: ??? If you ???ve recently traveled or have been in an area with COVID-19 and have symptoms ??? If you have been diagnosed with COVID-19 and your symptoms are worse ? [id number] [employer]. [address] [place] [address], [place] [address]. All rights reserved. This information is not intended as a substitute for professional medical care. Always follow your healthcare professional's instructions. ?? Patient Care team information Care Team Personnel Name: Rudy Huber RN Position: [facility] RN Member Role: Primary Care Nurse Name: Hasmukh Buckner RN Position: S RN Member Role: Primary Care Nurse Name: Cruz Farooq Position: Reference Physician Member Role: PCP Address: Address: [address] [facility] [address] [place] [address]- Name: Kay Sewell RN Position: [facility] SN RN Member Role: Primary Care Nurse Name: Valentin Parish RN Position: S RN Member Role: Primary Care Nurse Name: Faviola Irvin RN Position: S RN Member Role: Primary Care Nurse Name: Jonathan Marquez RN Position: S RN Member Role: Primary Care Nurse Name: Eugenia Pichardo RN Position: [facility] RN Member Role: Primary Care Nurse Name: Savannah Tyler RN Position: [facility] RN Member Role: Primary Care Nurse Name: Tayler Horn RN Position: [facility] RN Member Role: Primary Care Nurse Name: Francy Nava LPN Position: S RN Member Role: Primary Care Nurse Care Team Related Persons Name: NICO FLORES Address: home [address] [place] [address] Name: LIDIA VAZQUEZ Address: home [address] [place] [address] Name: MONIQUE VERONICA Address: home UNK Name: ELEN VERONICA Address: home [address] [place] [address]
--- OUTSIDE RECORDS SUMMARY | 2024-05-09 09:12 | XMS_ITS | Continuity of Care Document ---
Author Organization [facility] Address Unknown Care Team Providers Care Stone Cleaner Name Role Phone Maverick Pardo MD Primary Care Physician [phone] [place] [facility] [place](s): 09/07/21 - 10/07/21 [facility] Allergies, Adverse Reactions, Alerts [...]
--- OUTSIDE RECORDS SUMMARY | 2024-05-09 09:12 | XMS_ITS | Continuity of Care Document ---
Author Organization [facility] Address Unknown Care Team Providers Care Dust Box Worker Name Role Phone Maverick Pardo MD Primary Care Physician [phone] Encounter [facility] [place] Date(s): 09/28/21 - 10/28/21 [facility] Allergies, Adverse Reactions, [...] 09/06/21 9:56:00 EST, Route to Pharmacy Electronically, [facility]/pharmacy #[id number], Partial fill upon patient request if the prescription... Start Date: 09/06/21 Stop Date: 04/04/22 Status: Ordered Colace sodium 100 mg oral capsule 100 mg, 1, capsule, By Mouth, 2 times a day, PRN, # 20 capsule, Refills 0, Tot. Refills 0, Maintenance, for constipation, 07/17/21 10:44:00 EST, Route to Pharmacy Electronically, [id number], [...]
--- OUTSIDE RECORDS SUMMARY | 2024-05-09 09:12 | XMS_ITS | Continuity of Care Document ---
Author Organization [facility] Address [address] [place] [address] [address] [place] [address]- Care Team Providers Care Product Sales Engineer Name Role Phone Cruz Farooq Primary Care Physician Encounter [facility] [place] Date(s): 02/15/24 - 03/16/24 [facility] [address] [place] [address]- Allergies, Adverse Reactions, Alerts Substance Reaction Severity [...] 09/21/22 14:52:00 EST, Route to Pharmacy Electronically, [facility], Partial fill upon patient request if [...] 0 Refills, Soft Stop, 12/16/22 14:29:00 EDT, [facility], Partial fill upon patient request if the prescriptionis for a schedule II opioid drug., 165.1, cm, 12/16... Start Date: 12/16/22 Status: Ordered fenofibrate 145 mg oral tablet 1 tablet = 145 mg, By Mouth, Daily, # 30 tablet, 0 Refills, Maintenance, 09/21/22 14:53:00 EST, Tablet, [facility], Partial fill upon patient [...] 08/17/21 10:32:00 EST, Route to Pharmacy Electronically, [facility]/pharmacy #[id number], Partial fill upon patient request if the [...] Team Personnel Name: Rudy Huber RN Position: [facility] RN Member Role: Primary Care Nurse Name: Hasmukh Buckner RN Position: [facility] RN Member Role: Primary Care Nurse Name: Cruz Farooq Position: Reference Physician Member Role: PCP Address: Address: [address] [place] [address] [address] [place] [address] Name: Kay Sewell RN Position: [facility] SN RN Member Role: Primary Care Nurse Name: Valentin Parish RN Position: [facility] RN Member Role: Primary Care Nurse Name: Faviola Irvin RN Position: S RN Member Role: Primary Care Nurse Name: Jonathan Marquez RN Position: [facility] RN Member Role: Primary Care Nurse Name: Eugenia Pichardo RN Position: [facility] RN Member Role: Primary Care Nurse Name: Savannah Tyler RN Position: S RN Member Role: Primary Care Nurse Name: Tayler Horn RN Position: [facility] RN Member Role: Primary Care Nurse Name: Francy Nava LPN Position: [facility] RN Member Role: Primary Care Nurse Care Team Related Persons Name: ISIDORONASIRLeighJUAN DIEGOPHOENIX Address: home [address] [place] [address] Name: LIDIA VAZQUEZ Address: home [address] [place] [address] Name: MONIQUE VERONICA Address: home UNK Name: ELEN VERONICA Address: home [address] [place] [address]
--- OUTSIDE RECORDS SUMMARY | 2024-05-09 09:12 | XMS_ITS | Continuity of Care Document ---
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 Name Role Phone Cruz Farooq Primary Care Physician [place] [facility] [place]23 - 10/26/23 [facility] [address] [place] [id number] Attending Physician: Juan MCKEON, Aparajit Allergies, Adverse Reactions, Alerts Substance Reaction Severity [...] 09/21/22 14:52:00 EST, Route to Pharmacy Electronically, [facility], Partial fill upon patient request if [...] 0 Refills, Soft Stop, 12/16/22 14:29:00 EDT, [facility], Partial fill upon patient request if the prescriptionis for a schedule II opioid drug., 165.1, cm, 12/16... Start Date: 12/16/22 Status: Ordered fenofibrate 145 mg oral tablet 1 tablet = 145 mg, By Mouth, Daily, # 30 tablet, 0 Refills, Maintenance, 09/21/22 14:53:00 EST, Tablet, [facility], Partial fill upon patient [...] opioid drug. Start Date: 09/21/22 Status: Ordered [facility] Rx 50,0000 units, By Mouth, Daily, Refills [...] EST, Route to Pharmacy Electronically, [facility]/pharmacy #[id number], Partial fill upon patient request if the [...] Team Personnel Name: .Adelita Garces RN Position: [facility] ED RN W/OE and Tasks Member Role: Primary Care Nurse Name: Rudy Huber RN Position: [facility] RN Member Role: Primary Care Nurse Name: Hasmukh Buckner RN Position: [facility] RN Member Role: Primary Care Nurse Name: Cruz Farooq Position: Reference Physician Member Role: PCP Address: Address: [address] [place] [id number] Name: Kay Sewell RN Position: [facility] SN RN Member Role: Primary Care Nurse Name: Valentin Parish RN Position: [facility] RN Member Role: Primary Care Nurse Name: Faviola Irvin RN Position: [facility] RN Member Role: Primary Care Nurse Name: Jonathan Marquez RN Position: [facility] RN Member Role: Primary Care Nurse Name: Eugenia Pichardo RN Position: [facility] RN Member Role: Primary Care Nurse Name: Savannah Tyler RN Position: [facility] RN Member Role: Primary Care Nurse Name: Tayler Horn RN Position: S RN Member Role: Primary Care Nurse Name: Francy Nava LPN Position: S RN Member Role: Primary Care Nurse Care Team Related Persons Name: NICO FLORES Address: home [address] [place] [address] Name: LIDIA VAZQUEZ Address: home [address] [place] [address] Name: MONIQUE VERONICA Address: home UNK Name: ELEN VERONICA Address: home [address] [place] [address]
--- OUTSIDE RECORDS SUMMARY | 2024-05-09 09:13 | XMS_ITS | Continuity of Care Document ---
Author Organization [facility] Address [address] [place] [address] [address] [place] [address]- Care Team Providers Care Accredited Farm Manager Name Role Phone Cruz Farooq Primary Care Physician [phone] Encounter [facility] Date(s): 02/07/23 - 03/09/[address] [place], [place] [address] Attending Physician: Admtr, Trish Admitting Physician: [id number] Referring Physician: Admtr, Ar8 Allergies, Adverse Reactions, Alerts Substance Reaction Severity [...] 09/21/22 14:52:00 EST, Route to Pharmacy Electronically, [facility], Partial fill upon [...] 0 Refills, Soft Stop, 12/16/22 14:29:00 EDT, [facility] 3, Partial fill upon patient request if the prescriptionis for a schedule II opioid drug., 165.1, cm, 12/16... Start Date: 12/16/22 Status: Ordered fenofibrate 145 mg oral tablet 1 tablet = 145 mg, By Mouth, Daily, # 30 tablet, 0 Refills, Maintenance, 09/21/22 14:53:00 EST, Tablet, [facility] 3, Partial fill upon patient request if [...] 08/17/21 10:32:00 EST, Route to Pharmacy Electronically, [facility]/pharmacy #[id number], Partial fill upon patient request [...] Team Personnel Name: Adelita Castillo RN Position: [facility] ED RN W/OE and Tasks Member Role: Primary Care Nurse Name: Rudy Huber RN Position: S RN Member Role: Primary Care Nurse Name: Hasmukh Buckner RN Position: S RN Member Role: Primary Care Nurse Name: Cruz Farooq Position: Reference Physician Member Role: PCP Address: Address: [address] [facility] [address] [place] [address]- Name: Kay Sewell RN Position: S RN Member Role: Primary Care Nurse Name: Valentin Parish RN Position: S RN Member Role: Primary Care Nurse Name: Faviola Irvin RN Position: [facility] RN Member Role: Primary Care Nurse Name: Jonathan Marquez RN Position: S RN Member Role: Primary Care Nurse Name: Eugenia Pichardo RN Position: [facility] RN Member Role: Primary Care Nurse Name: Savannah Tyler RN Position: S RN Member Role: Primary Care Nurse Name: Tayler Horn RN Position: [facility] RN Member Role: Primary Care Nurse Name: Francy Nava LPN Position: [facility] RN Member Role: Primary Care Nurse Care Team Related Persons Name: NICO FLORES Address: home [address] [place] [address] Name: LIDIA VAZQUEZ Address: home [address] [place] [address] Name: MONIQUE VERONICA Address: home UNK Name: ELEN VERONICA Address: home [address] [place] [address]
--- OUTSIDE RECORDS SUMMARY | 2024-05-09 09:13 | XMS_ITS | Continuity of Care Document ---
Author Organization [facility] Address [address] [place] [address] ve [address] [place] [address]- Care Team Providers Care Workers Compensation Attorney Name Role Phone Cruz Farooq Primary Care Physician Encounter [facility] Date(s): 05/31/23 - 09/28/[address] [place] [address]- Attending Physician: Caty Spears MD Allergies, Adverse Reactions, Alerts Substance Reaction [...] 09/21/22 14:52:00 EST, Route to Pharmacy Electronically, [facility] 3, Partial fill upon patient request if [...] 0 Refills, Soft Stop, 12/16/22 14:29:00 EDT, [facility] 3, Partial fill upon patient request if the prescriptionis for a schedule II opioid drug., 165.1, cm, 12/16... Start Date: 12/16/22 Status: Ordered fenofibrate 145 mg oral tablet 1 tablet = 145 mg, By Mouth, Daily, # 30 tablet, 0 Refills, Maintenance, 09/21/22 14:53:00 EST, Tablet, [facility], Partial fill upon patient [...] opioid drug. Start Date: 09/21/22 Status: Ordered [facility] Rx 50,0000 units, By Mouth, Daily, Refills [...] EST, Route to Pharmacy Electronically, [facility]/pharmacy #[id number], Partial fill upon patient request if the [...] Team Personnel Name: .Adelita Garces RN Position: [facility] ED RN W/OE and Tasks Member Role: Primary Care Nurse Name: Rudy Huber RN Position: [facility] RN Member Role: Primary Care Nurse Name: Hasmukh Buckner RN Position: [facility] RN Member Role: Primary Care Nurse Name: Cruz Farooq Position: Reference Physician Member Role: PCP Address: Address: [address] [place] [id number] Name: Kay Sewell RN Position: [facility] SN RN Member Role: Primary Care Nurse Name: Valentin Parish RN Position: [facility] RN Member Role: Primary Care Nurse Name: Faviola Irvin RN Position: [facility] RN Member Role: Primary Care Nurse Name: Jonathan Marquez RN Position: [facility] RN Member Role: Primary Care Nurse Name: Eugenia Pichardo RN Position: [facility] RN Member Role: Primary Care Nurse Name: Savannah Tyler RN Position: [facility] RN Member Role: Primary Care Nurse Name: Tayler Horn RN Position: S RN Member Role: Primary Care Nurse Name: Francy Nava LPN Position: S RN Member Role: Primary Care Nurse Care Team Related Persons Name: NICO FLORES Address: home [address] [place] [address] Name: LIDIA VAZQUEZ Address: [address] [place] [address] Name: MONIQUE VERONICA Address: home [place]K Name: ELEN VERONICA Address: home [address] [place] [address]
--- OUTSIDE RECORDS SUMMARY | 2024-05-09 09:13 | XMS_ITS | Continuity of Care Document ---
Author Organization [facility] Address [address] [place] [address] [address] [place] [address]- Care Team Providers Care Group Leader [employer] Testing Name Role Phone Cruz Farooq Primary Care Physician Encounter [facility] Date(s): 05/09/23 - 06/08/23 [facility] [address] [place] [address]- Allergies, Adverse Reactions, Alerts Substance Reaction Severity [...] 09/21/22 14:52:00 EST, Route to Pharmacy Electronically, [facility] 3, Partial fill upon patient request if [...] 0 Refills, Soft Stop, 12/16/22 14:29:00 EDT, [facility] 3, Partial fill upon patient request if the prescriptionis for a schedule II opioid drug., 165.1, cm, 12/16... Start Date: 12/16/22 Status: Ordered fenofibrate 145 mg oral tablet 1 tablet = 145 mg, By Mouth, Daily, # 30 tablet, 0 Refills, Maintenance, 09/21/22 14:53:00 EST, Tablet, [facility] 3, Partial fill upon patient request [...] EST, Route to Pharmacy Electronically, [facility]/pharmacy #[id number], Partial fill upon patient request if the [...] Team Personnel Name: Adelita Castillo RN Position: [facility] ED RN W/OE and Tasks Member Role: Primary Care Nurse Name: Rudy Huber RN Position: [facility] RN Member Role: Primary Care Nurse Name: Hasmukh Buckner RN Position: [facility] RN Member Role: Primary Care Nurse Name: Cruz Farooq Position: Reference Physician Member Role: PCP Address: Address: [address] [facility] [address] [place] [address]- Name: Kay Sewell RN Position: [facility] RN Member Role: Primary Care Nurse Name: Valentin Parish RN Position: S RN Member Role: Primary Care Nurse Name: Faviola Irvin RN Position: S RN Member Role: Primary Care Nurse Name: Jonathan Marquez RN Position: [facility] RN Member Role: Primary Care Nurse Name: Eugenia Pichardo RN Position: S RN Member Role: Primary Care Nurse Name: Savannah Tyler RN Position: S RN Member Role: Primary Care Nurse Name: Tayler Horn RN Position: S RN Member Role: Primary Care Nurse Name: Francy Nava LPN Position: [facility] RN Member Role: Primary Care Nurse Care Team Related Persons Name: JUAN DIEGO FLORESPHOENIX Address: home [address] [place] [address] Name: LIDIA VAZQUEZ Address: [address] [place] [address] Name: MONIQUE VERONICA Address: home UNK Name: ELEN VERONICA Address: [address] [place] [address]
--- OUTSIDE RECORDS SUMMARY | 2024-05-09 09:13 | XMS_ITS | Continuity of Care Document ---
Author Organization [facility] Address Unknown Care Team Providers Care Director Of Program Management Name Role Phone Maverick Pardo MD Primary Care Physician Encounter [facility] Date(s): 08/23/21 - 09/22/21 [facility] Allergies, Adverse Reactions, Alerts [...] 09/06/21 9:56:00 EST, Route to Pharmacy Electronically, [facility]/pharmacy #[id number], Partial fill upon patient [...] 2 Refills, Maintenance, 06/16/21 15:25:00 EST, Injection, [facility]/pharmacy #[id number], Partial fill upon patient [...]
--- OUTSIDE RECORDS SUMMARY | 2024-05-09 09:13 | XMS_ITS | Continuity of Care Document ---
Author Organization [facility] Address [address] [place] [address] ve [address] [place] [address]- Care Team Providers Care Food Technologist Name Role Phone Cruz Farooq Primary Care Physician Encounter [facility] Date(s): 10/04/22 - 01/05/[address] [place], [place] [address] Attending Physician: Caty Spears MD Allergies, Adverse [...] 09/21/22 14:52:00 EST, Route to Pharmacy Electronically, [facility], Partial fill upon patient [...] 0 Refills, Soft Stop, 12/16/22 14:29:00 EDT, [facility], Partial fill upon patient request if the prescriptionis for a schedule II opioid drug., 165.1, cm, 12/16... Start Date: 12/16/22 Status: Ordered fenofibrate 145 mg oral tablet 1 tablet = 145 mg, By Mouth, Daily, # 30 tablet, 0 Refills, Maintenance, 09/21/22 14:53:00 EST, Tablet, [facility] 3, Partial fill upon patient [...] 08/17/21 10:32:00 EST, Route to Pharmacy Electronically, [facility]/pharmacy #[id number], Partial fill upon patient request if the [...] Team Personnel Name: Adelita Castillo RN Position: [facility] RN W/OE and Tasks Member Role: Primary Care Nurse Name: Rudy Huber RN Position: [facility] RN Member Role: Primary Care Nurse Name: Hasmukh Buckner RN Position: S RN Member Role: Primary Care Nurse Name: Cruz Farooq Position: Reference Physician Member Role: PCP Address: Address: [address] [facility] [address] [place], [place] [address] Name: Kay Sewell RN Position: [facility] RN Member Role: Primary Care Nurse Name: Valentin Parish RN Position: [facility] RN Member Role: Primary Care Nurse Name: Faviola Irvin RN Position: [facility] RN Member Role: Primary Care Nurse Name: Jonathan Marquez RN Position: [facility] RN Member Role: Primary Care Nurse Name: Eugenia Pichardo RN Position: [facility] RN Member Role: Primary Care Nurse Name: Savannah Tyler RN Position: [facility] RN Member Role: Primary Care Nurse Name: Tayler Horn RN Position: [facility] RN Member Role: Primary Care Nurse Name: Francy Nava LPN Position: [facility] RN Member Role: Primary Care Nurse Care Team Related Persons Name: NICO FLORES Address: [address] [place] [address] Name: LIDIA VAZQUEZ Address: [address] [place] [address] Name: MONIQUE VERONICA Address: home [place]K Name: ELEN VERONICA Address: home [address] [place] [address]
--- OUTSIDE RECORDS SUMMARY | 2024-05-09 09:13 | XMS_ITS | Continuity of Care Document ---
Author Organization [facility] Address [address] [place] [address] [address] [place] [address]- Care Team Providers Care Grain Inspector Name Role Phone Cruz Farooq Primary Care Physician Encounter [facility] Date(s): 05/02/22 - 05/09/[address] [place], [place] [address] Attending Physician: Caty Spears MD Allergies, [...] 2 Refills, Maintenance, 06/16/21 15:25:00 EST, Injection, [facility]/pharmacy #[id number], Partial fill upon patient request if the [...] opioid drug. Start Date: 06/14/21 Status: Ordered MiraLax = 17 Gm, By Mouth, Daily, 0 Refills, Maintenance, 05/02/22 10:18:00 EDT, Partial fill upon patient request if the prescription is for a schedule II opioid drug. Start Date: 05/02/22 Status: Ordered Misc Rx 50,0000 units, By [...] Route to Pharmacy Electronically, [facility]/pharmacy #[id number], Partial fill upon patient request if [...] class II Confirmed Active Obesity Confirmed Active DM2 (diabetes mellitus, type 2) Confirmed Active Vitamin D deficiency Confirmed Active Vital Signs Most recent to oldest [Reference Range]: 1 Height 165.1 cm (05/02/22 10:11 AM) Weight 97.4 kg (05/02/22 10:11 AM) Pulse Rate [55-90 bpm] 103 bpm *H* (05/02/22 10:11 AM) Body Mass Index [18.5-24.99 kg/m2] 35.73 kg/m2 *>HHI* (05/02/22 10:11 AM) Blood Pressure [90-138/55-84 mm Hg] 133/ 89mm Hg (05/02/22 10:11 AM) Respiratory Rate [16-30 br/min] 18 br/mi n (05/02/22 10:11 AM) Temperature [96.8-100.4 DegF] 97.0 DegF (05/02/22 10:11 AM) Blood pressure sites Arm, right (05/02/22 10:11 AM) Temperature Route Temporal (05/02/22 10:11 AM) Weight Obtained Via Standing scale (05/02/22 10:11 AM) Social History Social History Type Response Smoking Status Use: 4 or less cigar ettes(less than 1/4 pack)/day in last 30 days;10 or more cigarettes (1/2 pack or more)/day in last 30 days; Other: Quit 1 week ago, USing the gum; entered on: 05/02/22 Sex Patient Care team information Personnel Name: Cruz Farooq Address: Address: [address] [place], [place] [address]
--- OUTSIDE RECORDS SUMMARY | 2024-05-09 09:13 | XMS_ITS | Continuity of Care Document ---
Author Organization [facility] Address Unknown Care Team Providers Care Carbider Name Role Phone Maverick Pardo MD Primary Care Physician [phone] [place] [facility] [place] 09/21/21 - 10/21/21 [facility] Allergies, Adverse Reactions, Alerts Substance [...] 09/06/21 9:56:00 EST, Route to Pharmacy Electronically, [facility]/pharmacy #[id number], Partial fill upon patient request [...] 08/27/21 11:03:00 EST, Route to Pharmacy Electronically, [facility]/pharmacy #[id number], Partial fill upon patient request [...]
--- OUTSIDE RECORDS SUMMARY | 2024-05-09 09:13 | XMS_ITS | Continuity of Care Document ---
Author Organization [facility] Address [address] [place] [id number]- Care Team Providers Care Wind Field Manager Name Role Phone Maverick Pardo MD Primary Care Physician Encounter [facility] Date(s): 07/16/21 - 07/17/[address] [address] Encounter Diagnosis Abdominal pain(Final) - 07/16/21 Discharge Disposition: A-D/C Home Attending Physician: Murray Gomes MD Admitting Physician: Murray Gomes MD Referring Physician: Not on Staff, Referring MD Allergies, Adverse Reactions, Alerts Substance Reaction Severity Status Adhesive Bandage rash Active Latex rash Active Immunizations Not Given Vaccine Date Status Refusal Reason influenza virus vaccine, inactivated 07/17/21 Not Given Patient Refuses Medications Acetaminophen Tablet 650 mg, Tablet, By Mouth, 07/17/21 18:00:00 EST Start Date: 07/17/21 Stop Date: 07/17/21 Status: Completed Advair Diskus 250 mcg-50 mcg inhalation powder [...] opioid drug. Start Date: 06/14/21 Status: Ordered [facility] Rx Vitamin D3 2000IU, Daily, Refills 0, Maintenance, 07/12/21 9:32:00 EST, Supply Start Date: 07/12/21 Status: Ordered oxyCODONE 5 mg oral tablet 5 mg, 1, tablet, By Mouth, Every 6 hours, PRN, # 16 tablet, Refills 0, Tot. Refills 0, Maintenance,for pain, 06/29/21 13:03:00 EST, Route to Pharmacy Electronically, [facility]/pharmacy #[id number], Partial fillupon patient request if the prescription is for a s... Start Date: 06/29/21 Status: Ordered oxyCODONE 5 mg oral tablet 5 mg, Tablet, By Mouth, Every 6 hours, PRN for Pain , Severe, Routine, 07/17/21 11:50:00 EST Start Date: 07/17/21 Stop Date: 07/24/21 Status: Ordered oxyCODONE 5 mg oral tablet 2.5 mg, Tablet, By Mouth, Once, PRN for Pain , Severe, Routine, 07/17/21 16:00:00 EST Start Date: 07/17/21 Stop Date: 07/17/21 Status: Completed Problem List Condition Effective Dates Status Health Status Inform ant Dyslipidemia(Confirmed) Active Hx of abscess of breast(Confirmed) Active Hirsutism(Confirmed) Active Hypertension(Confirmed) Active Cervical mass(Confirmed) Active Obese class II(Confirmed) Active Obesity(Confirmed) Active DM2 (diabetes mellitus, type 2)(Confirmed) Active Vitamin D deficiency(Confirmed) Active Results Orders for Microbiology Reports Name Date Blood Culture 07/16/21 Blood Culture #2 07/16/21 Microbiology Reports TEST:Blood Culture STATUS:Unauthenticated BODY SITE: SOURCE:Blood COLLECTED DATE/TIME:07/16/21 2:20 PM Blood Culture SPECIMEN DESCRIPTION : BLOOD R HAND SPECIAL REQUESTS : NONE CULTURE : NO GROWTH AFTER 24 HOURS REPORT STATUS : PRELIMINARY REPORT TEST:Blood Culture, Second Order STATUS:Unauthenticated BODY SITE: SOURCE:Blood COLLECTED DATE/TIME:07/16/21 2:05 PM Blood Culture, Second Order SPECIMEN DESCRIPTION : BLOOD L HAND SPECIAL REQUESTS : NONE CULTURE : NO GROWTH AFTER 24 HOURS REPORT STATUS : PRELIMINARY REPORT Radiology Reports * Exam Date Time Procedure Performing Provider Status 07/17/21 12:15 PM XR Abdomen AP Small Bowel W/ contrast Beulah Thomas; Auth (Verified) Notes: (XR Abdomen AP Small Bowel W/ contrast) Reason For Exam: Other:;Other: RESULT: XR Abdomen AP Small Bowel with contrast XR Abdomen AP Small Bowel with contrast INDICATION: Obstruction COMPARISON: Earlier today. FINDINGS: Pigtail catheter in the left lower quadrant. Slight further progression of small amount of enteric contrast which now reaches the splenic flexure of the colon. No evidence of pneumoperitoneum. No acute osseous abnormality. IMPRESSION: Enteric contrast appears to reach the splenic flexure. WSN: [id number] Ordering Physician: Jair Trevino Dictated By: Corey Monique MD Dictated Date/Time: 07/17/21 2:24 pm Reviewed By: Corey Monique MD Signed By: Corey Monique MD Signed Date/Time: 07/17/21 2:24 pm Transcribed By: HAIDER Transcribed Date/Time: 07/17/21 2:23 pm * Exam Date Time Procedure Performing Provider Status 07/17/21 12:17 AM XR Abdomen AP Small Bowel W/ contrast Efe Figueroa; Auth (Verified) Notes: (XR Abdomen AP Small Bowel W/ contrast) Reason For Exam: Distention;Distention RESULT: XR Abdomen AP Small Bowel with contrast XR Abdomen AP Small Bowel with contrast REASON: Distention; Clinical Question(s): Obstruction; Special Instructions: obtain 8 hours after drinking the contrast. Please coordinate with nurse COMPARISON: CT 07/16/2021 FINDINGS: Pigtail catheter present in the left hemipelvis. There may be some faint enteric contrast in the right hemicolon. Contrast in the pelvis may be excreted contrast in the bladder. No dilated small bowel loops seen. No supine evidence of pneumoperitoneum. No acute osseous abnormality. IMPRESSION: Faint contrast in the right hemicolon. WSN: [id number] Ordering Physician: Jair Trevino Dictated By: Corey Monique MD Dictated Date/Time: 07/17/21 11:57 a Reviewed By: Corey Monique MD Signed By: Corey Monique MD Signed Date/Time: 07/17/21 11:57 am Transcribed By: HAIDER Transcribed Date/Time: 07/17/21 11:56 am * Exam Date Time Procedure Performing Provider Status 07/16/21 6:19 PM Abdomen AP Figueroa, Jos; Auth (Linnea ified) Notes: (Abdomen AP) Reason For Exam: Other: RESULT: XR Abdomen AP XR Abdomen AP INDICATION/CLINICAL QUESTION: Clinical Question(s): Obstruction; COMPARISON: Abdomen and pelvis CT earlier the same day. FINDINGS: AP abdomen, 2 radiographs. Bowel gas pattern is nonspecific. Small amount of oral contrast is seen in nondilated small bowel on the right lower quadrant likely extending into the right colon. There is contrast within the renal collecting systems and urinary bladder. There is a pigtail drain in the left hemipelvis. IMPRESSION: Nonspecific findings. WSN: [id number] Ordering Physician: Jair Trevino Dictated By: Mason Cooley MD Dictated Date/Time: 07/16/21 7:18 pm Reviewed By: Mason Cooley MD Signed By: Mason Cooley MD Signed Date/Time: 07/16/21 7:18 pm Transcribed By: HAIDER Transcribed Date/Time: 07/16/21 7:13 pm Vital Signs Most recent to oldest [Reference Range]: 1 2 3 Height 162.2 cm (07/17/21 4:40 PM) 162.2 cm (07/17/21 11:17 AM) 162.2 cm (07/17/21 6:56 AM) Weight 94.9 kg (07/16/21 7:01 PM) Oxygen Saturation [94-100 %] 98 % (07/17/21 11:17 AM) 94 % (07/17/21 6:56 AM) 94 % (07/17/21 4:03 AM) Pulse Rate [55-90 bpm] 91 bpm *H* (07/17/21 11:17 AM) 81 bpm (07/17/21 6:56 AM) 74 bpm (07/17/21 4:03 AM) Body Mass Index [18.5-24.99] 36.07 *>HHI* (07/16/21 7:01 PM) Blood Pressure [90-138/55-84 mm Hg] 118/74mm Hg (07/17/21 11:17 AM) 110/74mm Hg (07/17/21 6:56 AM) 104/64mm Hg (07/17/21 4:03 AM) Respiratory Rate [16-30 br/min] 20 br/min (07/17/21 4:10 PM) 20 br/min (07/17/21 2:00 PM) 20 br/min (07/17/21 2:00 PM) Temperature [96.8-100.4 DegF] 97.2 DegF (07/17/21 4:40 PM) 98.3 DegF (07/17/21 6:56 AM) 98.2 DegF (07/17/21 4:03 AM) Liters per Minute 2 L/min (07/16/21 3:47 PM) Mode of Delivery (Oxygen) Room air (07/17/21 11:17 AM) Room air (07/17/21 6:56 AM) Room air (07/17/21 4:03 AM) Blood pressure sites Arm, right (07/17/21 11:17 AM) Arm, left (07/17/21 6:56 AM) Arm, left (07/16/21 7:01 PM) Temperature Route Temporal (07/17/21 4:40 PM) Oral (07/17/21 6:56 AM) Oral (07/17/21 4:03 AM) Dry Weight 94.9 kg (07/16/21 7:01 PM) Social History Social History Type Response Smoking Status 10 or more cigarette s (2 pack or more)/day in last 30 days entered on: 07/13/21 Sex
--- OUTSIDE RECORDS SUMMARY | 2024-05-09 09:13 | XMS_ITS | Continuity of Care Document ---
Author Organization [facility] Address Unknown Care Team Providers Care Hook Tender Name Role Phone Maverick Pardo MD Primary Care Physician [phone] Encounter [facility]CT R [id number] Date(s): 08/17/21 - 08/24/21 [facility] Attending Physician: Elizabeth Olmstead [...] inch plain packing. Lightly pack abdomen wound daily., 08/24/21 16:17:00 EST, Compound Start Date: 08/24/21 Status: Ordered 10cm medipore tape 10cm medipore tape, See Instructions, # 4 each, Refills 1, Tot. Refills 1, Maintenance, use as needed for daily dressing changes, 08/24/21 16:37:00 EST, Compound Start Date: 08/24/21 Status: Ordered 15cm Q tip applicators 15cm Q tip applicators, See Instructions, # 30 each, Refills 1, Tot. Refills 1, Maintenance, use asneeded for daily dressing changes, 08/24/21 16:37:00 EST, Compound Start Date: 08/24/21 Status: Ordered acetaminophen 325 mg oral tablet [...] 07/17/21 10:44:00 EST, Route to Pharmacy Electronically, [facility]/pharmacy #[id number], Partial fill upon patient request if the prescriptio... Start Date: 07/17/21 Status: Ordered Extra absorbant 5 x 9in adominal pads Extra absorbant 5 x 9in adominal pads, See Instructions, # 30 each, Refills 1, Tot. Refills 1, Maintenance, change with daily packing, 08/24/21 16:17:00 EST, Compound Start Date: 08/24/21 Status: Ordered gabapentin 300 mg oral capsule 300 mg, 1, capsule, By Mouth, 3 times a day, # 15 capsule, Refills 0, Tot. Refills 0, Maintenance, 08/03/21 15:12:00 EST, Route to Pharmacy Electronically, [facility], Partial fill uponpatient request if the prescription is for a schedu... Start Date: 08/03/21 Stop Date: 08/08/21 Status: Ordered Lantus Solostar Pen 100 units/mL subcutaneous solution = 30 units, Subcutaneous Injection, Daily at bedtime, # 10 mL, 2 Refills, Maintenance, 06/16/21 15:25:00 EST, Injection, [facility]/pharmacy #[id number], Partial fill upon patient [...] opioid drug. Start Date: 06/14/21 Status: Or[place] [facility] [place] Vitamin D3 2000IU, Daily, Refills 0, Maintenance, 07/12/21 9:32:00 EST, Supply Start Date: 07/12/21 Status: Ordered oxyCODONE 5 mg oral tablet 5 mg, 1, tablet, By Mouth, Every 6 hours, PRN, # 28 tablet, Refills 0, Tot. Refills 0, Maintenance,as needed for pain, 08/11/21 11:27:00 EST, Route to Pharmacy Electronically, [facility]/pharmacy #[id number], Partial fill upon patient request if the prescription... Start Date: 08/11/21 Status: Ordered oxyCODONE 5 mg oral tablet 5 mg, 1, tablet, By Mouth, Every 6 hours, PRN, # 28 tablet, Refills 0, Tot. Refills 0, Maintenance,as needed for pain, 08/17/21 10:32:00 EST, Route to Pharmacy Electronically, [facility]/pharmacy #[id number], Partial fill upon patient request if the prescription... Start Date: 08/17/21 Status: Ordered super sponges super sponges, See Instructions, # 30 each, Refills 1, Tot. Refills 1, Maintenance, use as needed for daily dressing changes, 08/24/21 16:37:00 EST, Compound Start Date: 08/24/21 Status: Ordered suture removal kits suture removal kits, See Instructions, # 30 each, Refills 0, Tot. Refills 0, Maintenance, use as needed for daily dressing changes, 08/24/21 16:37:00 EST, Compound Start Date: 08/24/21 Status: Ordered Problem List Condition Effective Dates Status Health Status Inform ant Dyslipidemia(Confirmed) Active Hx of abscess of breast(Confirmed) Active Hirsutism(Confirmed) Active Hypertension(Confirmed) Active Cervical mass(Confirmed) Active Obese class I(Confirmed) Active Obesity(Confirmed) Active DM2 (diabetes mellitus, type 2)(Confirmed) Active Vitamin D deficiency(Confirmed) Active Vital Signs Most recent to oldest [Reference Range]: 1 Height 165.1 cm (1/25/22 9:09 AM) Weight 94.1 kg (08/17/21 9:09 AM) Pulse Rate [55-90 bpm] 116 bpm *H* (08/17/21 9:09 AM) Body Mass Index [18.5-24.99] 34.52 *>HHI* (08/17/21 9:09 AM) Blood Pressure [90-138/55-84 mm Hg] 153/ 90mm Hg *H* (08/17/21 9:09 AM) Respiratory Rate [16-30 br/min] 17 br/mi n (08/17/21 9:09 AM) Temperature [96.8-100.4 DegF] 97.9 DegF (08/17/21 9:09 AM) Temperature Route Oral (08/17/21 9:09 AM) Social History Social History Type Response Smoking Status 10 or more cigarette s (1/2 pack or more)/day in last 30 days entered on: 07/13/21 Sex
--- OUTSIDE RECORDS SUMMARY | 2024-05-09 09:13 | XMS_ITS | Continuity of Care Document ---
Author Organization [facility] Address Unknown Care Team Providers Care Offshore Wind Operations Manager Name Role Phone Maverick Pardo MD Primary Care Physician Encounter [facility] Date(s): 08/26/21 - 09/25/21 [facility] Allergies, Adverse Reactions, Alerts [...] 09/06/21 9:56:00 EST, Route to Pharmacy Electronically, [facility]/pharmacy #[id number], Partial fill upon [...] 2 Refills, Maintenance, 06/16/21 15:25:00 EST, Injection, [facility]/pharmacy #[id number], Partial fill upon [...]
--- OUTSIDE RECORDS SUMMARY | 2024-05-09 09:13 | XMS_ITS | Continuity of Care Document ---
Author Organization [facility] Address [address] [place] [id number]- Care Team Providers Care Pearl Fisherman Name Role Phone Cruz Farooq Primary Care Physician [phone] [place]counter [facility] Date(s): 07/25/23 - 07/25/[address] [address]- Discharge Disposition: A-D/C Home Attending Physician: Thania Gay DO Admitting Physician: Thania Gay DO Referring Physician: Not on Staff, Referring MD [...] 09/21/22 14:52:00 EST, Route to Pharmacy Electronically, [facility], Partial fill upon patient request [...] 0 Refills, Soft Stop, 12/16/22 14:29:00 EDT, [facility], Partial fill upon patient request if the prescriptionis for a schedule II opioid drug., 165.1, cm, 12/16... Start Date: 12/16/22 Status: Ordered fenofibrate 145 mg oral tablet 1 tablet = 145 mg, By Mouth, Daily, # 30 tablet, 0 Refills, Maintenance, 09/21/22 14:53:00 EST, Tablet, [facility], Partial fill upon patient request [...] EST, Supply Start Date: 07/12/21 Status: Ordered MorPHINE Inj 4 mg, Injection, IV Push Slowly, Every 5 minutes for 3 doses/times, PRN for Pain , Moderate, and SBP greater than 100, Routine, 07/25/23 20:39:00 EST, Stop date Limited # of times Start Date: 07/25/23 Status: Ordered Mounjaro 5 mg/0.5 mL subcutaneous [...] 07/25/23 23:29:00 EST, Route to Pharmacy Electronically, [facility]/pharmacy #[id number], Partial fill upon patient request if the prescri... Start Date: 07/25/23 Stop Date: 08/25/23 Status: Ordered oxyCODONE 5 mg oral tablet 5 mg, 1, tablet, By Mouth, 2 times a day, PRN, # 10 tablet, Refills 0, Tot. Refills 0, Acute 07/26/23 8:00:00 EST, for pain, 07/20/23 19:42:00 EST, Route to Pharmacy Electronically, [facility]/pharmacy #[id number], Partial fill upon patient request if the prescrip... Start Date: 07/20/23 Stop Date: 07/26/23 Status: Ordered oxyCODONE 5 mg oral tablet 5 mg, 1, tablet, By Mouth, Every 6 hours, PRN, # 28 tablet, Refills 0, Tot. Refills 0, Maintenance,as needed for pain, 08/17/21 10:32:00 EST, Route to Pharmacy Electronically, [facility]/pharmacy #[id number], Partial fill upon patient request [...] Confirmed Active Vitamin D deficiency Confirmed Active Results Radiology Reports * Exam Date Time Procedure Performing Provider Status 07/25/23 10:[address] Abdomen and Pelvi s W/O Contrast Claire Mack; Deidra (Verified) Notes: (CT Abdomen and Pelvis W/O Contrast) Reason For Exam: known hernia, acute worsening of pain;Other: RESULT: CT Abdomen and Pelvis W/O Contrast CT Abdomen and Pelvis W/O Contrast Refer to EMR; Hx of Present Illness: Patient reports she has been c o lower abdominal pain around 3pm today. Pt rpeorts she was moving a shelve ,when she developed lower abdominal pain, has hernia and is scheduled for surgery on 08 04 2023. Reason: Other:; known hernia, acute worsening of pain. Clinical Question(s): Other:; Order Comment: 07 25 2023 20:11:50 EST- Pt currently in Y Pod. KG TECHNIQUE: Spiral CT through the abdomen and pelvis without IV contrast formatted in 3 planes. Thisstudy was performed oral contrast. Weight-based protocol using automatic tube modulation was used to optimize exposure parameters. COMPARISON: 07/20/2023, 07/03/2023 FINDINGS: Facilities Manager View Findings, Lines and Tubes: None. Visualized Chest: Mild dependent atelectasis. No pleural effusion. Diaphragm: Normal. Liver: Hepatomegaly up to 22.8 cm in the CC dimension. Diffuse hypoattenuation of the liver parenchyma, compatible with hepatic steatosis. No focal lesions. Gallbladder: No CT evidence of gallbladder pathology. Bile ducts: No biliary ductal dilation. Spleen: Normal. Accessory splenic tissue is incidentally noted. Pancreas: Normal. Adrenal glands: Normal. Kidneys and ureters: No hydronephrosis, stones, or noncontrast evidence of suspicious masses. Bladder: Normal. Reproductive organs: Unremarkable. Stomach, small bowel, and large bowel: Postsurgical changes in the sigmoid colon. A few scattered colonic diverticula, without evidence of acute diverticulitis. Similar appearance of a large ventral abdominal wall hernia containing nonobstructed loops of small bowel, transverse colon, and terminal i leum. The cecum is also present within the hernia sac. No evidence of strangulation. The stomach isnormal. Appendix: Normal. Peritoneum and retroperitoneum: No ascites or pneumoperitoneum. No omental or mesenteric lesions. Lymph nodes: No pathologically enlarged lymph nodes. Blood vessels: Normal. No aneurysm. Abdominal and pelvic wall: Large ventral hernia containing nonobstructed, nonstrangulated loops of small and large bowel as detailed above. Bones: No acute abnormality. IMPRESSION: Large ventral hernia containing nonobstructed loops of large and small bowel, without significant change from prior examination. No evidence of strangulation. Colonic diverticulosis, without evidence of acute diverticulitis. Hepatomegaly. Hepatic steatosis. I have personally reviewed the images and I agree with this report. WSN: [id number] Ordering Physician: Sean Miranda Dictated By: Zach Sampson MD Dictated Date/Time: 07/25/23 11:19 p Reviewed By: Semaj Monte MD Signed By: Semaj Monte MD Signed Date/Time: 07/25/23 11:24 pm Transcribed By: HAIDER Transcribed Date/Time: 07/25/23 11:15 pm Vital Signs Most recent to oldest [Reference Range]: 1 2 3 Height 163 cm (07/25/23 4:59 PM) Weight 97.1 kg (07/25/23 4:59 PM) Oxygen Saturation [94-100 %] 97 % (07/25/23 11:14 PM) 100 % (07/25/23 4:59 PM) 99 % (07/25/23 4:56 PM) Pulse Rate [55-90 bpm] 93 bpm *H* (07/25/23 11:14 PM) 104 bpm *H* (07/25/23 4:59 PM) 116 bpm *H* (07/25/23 4:56 PM) Body Mass Index [18.5-24.99 kg/m2] 36.55 kg/m2 *>HHI* (07/25/23 4:59 PM) Blood Pressure [90-138/55-84 mm Hg] 122/90mm Hg (07/25/23 11:14 PM) 145/97mm Hg *H* (07/25/23 4:59 PM) Respiratory Rate [16-30 br/min] 16 br/min (07/25/23 11:14 PM) 18 br/min (07/25/23 10:02 PM) 24 br/min (07/25/23 4:59 PM) Temperature [96.8-100.4 DegF] 98.2 DegF (07/25/23 11:14 PM) 98.1 DegF (07/25/23 4:59 PM) Mode of Delivery (Oxygen) Room air (07/25/23 11:14 PM) Room air (07/25/23 4:59 PM) Room air (07/25/23 4:56 PM) Blood pressure sites Arm, right (07/25/23 11:14 PM) Arm, right (07/25/23 4:59 PM) Temperature Route Oral (07/25/23 11:14 PM) Oral (07/25/23 4:59 PM) Dry Weight 97.1 kg (07/25/23 4:59 PM) Weight Obtained Via Standing scale (07/25/23 4:59 PM) Dry Weight Obtained Via Standing scale (07/25/23 4:59 PM) Social History Social History Type Response Smoking Status Former smoker, quit more than 30 days ago; Other: Quit several months ago; entered on: 02/07/23 Sex Female Note * Mara Maya NP: PERFORM, SIGN, VERIFY Event Display: Patient Education Handout Authored Date: Patient Care team information Care Team Personnel Name: Adelita Castillo RN Position: [facility] ED RN W/OE and Tasks Member Role: Primary Care Nurse Name: Rudy Huber RN Position: [facility] RN Member Role: Primary Care Nurse Name: Hasmukh Buckner RN Position: [facility] RN Member Role: Primary Care Nurse Name: Cruz Farooq Position: Reference Physician Member Role: PCP Address: Address: [address] [facility] [address] [place] [id number] Name: Kay Sewell RN Position: [facility] RN Member Role: Primary Care Nurse Name: Valentin Parish RN Position: [facility] RN Member Role: Primary Care Nurse Name: Faviola Irvin RN Position: S RN Member Role: Primary Care Nurse Name: Jonathan Marquez RN Position: S RN Member Role: Primary Care Nurse Name: Eugenia Pichardo RN Position: [facility] RN Member Role: Primary Care Nurse Name: Savannah Tyler RN Position: [facility] RN Member Role: Primary Care Nurse Name: Tayler Horn RN Position: [facility] RN Member Role: Primary Care Nurse Name: Francy Nava LPN Position: [facility] RN Member Role: Primary Care Nurse Name: Nieves Clements RN Position: [facility] ED RN W/OE and Tasks Name: Mara Maya NP Position: [facility] Associate Professional Member Role: Nurse Practitioner Address: Address: [address] [place] [address] [place] [address]- Name: Alisa Solorio RN Position: [facility] ED RN W/OE and Tasks Member Role: Patient Care Provider Name: Raegan Valdivia Position: [facility] ED TA [facility] Name: Thania Gay DO Position: [facility] ED Medicine MD Member Role: Admitting Physician Address: Address: [address] [place] [address]- Care Team Related Persons Name: NICO FLORES Address: home [address] [place] [address] Name: LIDIA VAZQUEZ Address: home [address] [place] [address] Name: MONIQUE VERONICA Address: home [place] Name: ELEN VERONICA Address: home [address] [place] [address]
--- OUTSIDE RECORDS SUMMARY | 2024-05-09 09:13 | XMS_ITS | Continuity of Care Document ---
Author Organization [facility] Address [address] [place] [address] Dr [address] [place] [address]- Care Team Providers Care Spin Instructor Name Role Phone Cruz Farooq Primary Care Physician [phone] Encounter [facility] Date(s): 12/27/22 - 01/26/23 [facility] [address] [place] [address]- Attending Physician: Trish Mejia Admitting Physician: AdmTrish anderson Referring Physician: Admtr, Ar8 Allergies, Adverse Reactions, Alerts Substance Reaction Severity Status Omnipaque 350 Anaphelaxis Active Adhesive Bandage rash Active Latex rash Active Contrast Dye Anaphelaxis Active Immunizations Not Given Vaccine Date Status [...] 09/21/22 14:52:00 EST, Route to Pharmacy Electronically, [facility], Partial fill upon patient [...] 0 Refills, Soft Stop, 12/16/22 14:29:00 EDT, [facility], Partial fill upon patient request if the prescriptionis for a schedule II opioid drug., 165.1, cm, 12/16... Start Date: 12/16/22 Status: Ordered fenofibrate 145 mg oral tablet 1 tablet = 145 mg, By Mouth, Daily, # 30 tablet, 0 Refills, Maintenance, 09/21/22 14:53:00 EST, Tablet[facility], Partial fill upon patient request if [...] 08/17/21 10:32:00 EST, Route to Pharmacy Electronically, [facility]/pharmacy #[id number], Partial fill upon patient [...] Physician Member Role: PCP Address: Address: [address] [place] [address]- Name: Kay Sewell RN Position: S RN Member Role: Primary Care Nurse Name: Valentin Parish RN Position: [facility] RN Member Role: Primary Care Nurse Name: Faviola Irvin RN Position: [facility] RN Member Role: Primary Care Nurse Name: Jonathan Marquez RN Position: [facility] RN Member Role: Primary Care Nurse Name: Eugenia Pichardo RN Position: [facility] RN Member Role: Primary Care Nurse Name: Savannah Tyler RN Position: S RN Member Role: Primary Care Nurse Name: Tayler Horn RN Position: [facility] RN Member Role: Primary Care Nurse Name: Francy Nava LPN Position: [facility] RN Member Role: Primary Care Nurse Care Team Related Persons Name: NICO FLORES Address: home [address] [place] [address] Name: LIDIA VAZQUEZ Address: [address] [place] [address] Name: MONIQUE VERONICA Address: home UNK Name: ELEN VERONICA Address: home [address] [place] [address]
--- OUTSIDE RECORDS SUMMARY | 2024-05-09 09:13 | XMS_ITS | Continuity of Care Document ---
Author Organization [facility] Torrie clair Address [address] [place] [address] [address] [place] [address]- Care Team Providers Care Travel Coordinator Name Role Phone Cruz Farooq Primary Care Physician [phone] Encounter [facility] Date(s): 05/12/23 - 09/09/23 [facility] [address] [place], [place] [address] Attending Physician: Maya Colvin Allergies, Adverse Reactions, Alerts Substance Reaction Severity [...] 09/21/22 14:52:00 EST, Route to Pharmacy Electronically, [facility], Partial fill upon patient request [...] 0 Refills, Soft Stop, 12/16/22 14:29:00 EDT, [facility], Partial fill upon patient request if the prescriptionis for a schedule II opioid drug., 165.1, cm, 12/16... Start Date: 12/16/22 Status: Ordered fenofibrate 145 mg oral tablet 1 tablet = 145 mg, By Mouth, Daily, # 30 tablet, 0 Refills, Maintenance, 09/21/22 14:53:00 EST, Tablet, [facility], Partial fill upon patient [...] 08/17/21 10:32:00 EST, Route to Pharmacy Electronically, [facility]/pharmacy #[id number], Partial fill upon patient request if the [...] Team Personnel Name: .Adelita Garces RN Position: [facility] ED RN W/OE and Tasks Member Role: Primary Care Nurse Name: Rudy Huber RN Position: [facility] RN Member Role: Primary Care Nurse Name: Hasmukh Buckner RN Position: [facility] RN Member Role: Primary Care Nurse Name: Cruz Farooq Position: Reference Physician Member Role: PCP Address: Address: [address] [place] [address] [place] [id number] Name: Kay Sewell RN Position: [facility] SN RN Member Role: Primary Care Nurse Name: Valentin Parish RN Position: S RN Member Role: Primary Care Nurse Name: Faviola Irvin RN Position: S RN Member Role: Primary Care Nurse Name: Jonathan Marquez RN Position: [facility] RN Member Role: Primary Care Nurse Name: Eugenia Pichardo RN Position: [facility] RN Member Role: Primary Care Nurse Name: Savannah Tyler RN Position: [facility] RN Member Role: Primary Care Nurse Name: Tayler Horn RN Position: S RN Member Role: Primary Care Nurse Name: Francy Nava LPN Position: S RN Member Role: Primary Care Nurse Care Team Related Persons Name: MICHELLELeigh JUAN DIEGOPHOENIX Address: home [address] [place] [address] Name: LIDIA VAZQUEZ Address: [address] [place] [address] Name: MONIQUE VERONICA Address: home UNK Name: ELEN VERONICA Address: home [address] [place] [address]
--- OUTSIDE RECORDS SUMMARY | 2024-05-09 09:13 | XMS_ITS | Continuity of Care Document ---
Author Organization [facility] Address [address] [place] [address] ve [address] [place] [address]- Care Team Providers Care Catalytic Converter Operator Helper Name Role Phone Maverick Pardo MD Primary Care Physician [phone] [place] [facility] Date(s): 03/08/22 - 03/15/[address] [place] [address]- Attending Physician: Caty Spears MD Referring Physician: Maverick Pardo MD Allergies, [...] 09/06/21 9:56:00 EST, Route to Pharmacy Electronically, [facility]/pharmacy #[id number], Partial fill upon patient request if the prescription... Start Date: 09/06/21 Stop Date: 04/04/22 Status: Ordered Colace sodium 100 mg oral capsule 100 mg, 1, capsule, By Mouth, 2 times a day, PRN, # 20 capsule, Refills 0, Tot. Refills 0, Maintenance, for constipation, 07/17/21 10:44:00 EST, Route to Pharmacy Electronically, [facility]/pharmacy #[id number], Partial fill upon patient request [...] opioid drug. Start Date: 06/14/21 Status: Ordered Mis Rx 50,0000 units, By Mouth, Daily, Refills 0, Maintenance, vitamin d3, 07/12/21 9:32:00 EST, Supply Start Date: 07/12/21 Status: Ordered oxyCODONE 5 mg oral tablet 5 mg, 1, tablet, By Mouth, Every 6 hours, PRN, # 28 tablet, Refills 0, Tot. Refills 0, Maintenance,as needed for pain, 08/17/21 10:32:00 EST, Route to Pharmacy Electronically, [facility]/pharmacy #[id number], Partial fill upon patient request [...] Date: 01/28/22 Status: Ordered Problem List Condition Effective Dates Status Health Status Inform ant Dyslipidemia(Confirmed) Active Hx of abscess of breast(Confirmed) Active Hirsutism(Confirmed) Active Hypertension(Confirmed) Active Cervical mass(Confirmed) Active Obese class II(Confirmed) Active Obesity(Confirmed) Active DM2 (diabetes mellitus, type 2)(Confirmed) Active Vitamin D deficiency(Confirmed) Active Vital Signs Most recent to oldest [Reference Range]: 1 Height 165.1 cm (03/08/22 10:43 AM) Weight 97.4 kg (03/08/22 10:43 AM) Pulse Rate [55-90 bpm] 103 bpm *H* (03/08/22 10:43 AM) Body Mass Index [18.5-24.99] 35.73 *>HHI* (03/08/22 10:43 AM) Blood Pressure [90-138/55-84 mm Hg] 157/ 94mm Hg *H* (03/08/22 10:43 AM) Respiratory Rate [16-30 br/min] 18 br/mi n (03/08/22 10:43 AM) Temperature [96.8-100.4 DegF] 98.2 DegF (03/08/22 10:43 AM) Blood pressure sites Arm, left (03/08/22 10:43 AM) Temperature Route Temporal (03/08/22 10:43 AM) Weight Obtained Via Standing scale (03/08/22 10:43 AM) Social History Social History Type Response Smoking Status 10 or more cigarette s (1/2 pack or more)/day in last 30 days entered on: 07/13/21 Sex
--- OUTSIDE RECORDS SUMMARY | 2024-05-09 09:13 | XMS_ITS | Continuity of Care Document ---
Author Organization [facility] Address Unknown Care Team Providers Care Piercing Artist Name Role Phone Maverick Pardo MD Primary Care Physician [place] [facility] Date(s): 09/13/21 - 10/13/21 [facility] Allergies, Adverse Reactions, Alerts [...] 09/06/21 9:56:00 EST, Route to Pharmacy Electronically, [facility]/pharmacy #[id number], Partial fill upon patient request if the prescription... Start Date: 09/06/21 Stop Date: 04/04/22 Status: Ordered Colace sodium 100 mg oral capsule 100 mg, 1, capsule, By Mouth, 2 times a day, PRN, # 20 capsule, Refills 0, Tot. Refills 0, Maintenance, for constipation, 07/17/21 10:44:00 EST, Route to Pharmacy Electronically, [facility]/pharmacy #[id number], Partial fill upon patient [...]
--- OUTSIDE RECORDS SUMMARY | 2024-05-09 09:13 | XMS_ITS | Continuity of Care Document ---
Author Organization [facility] Address Unknown Care Team Providers Care Editor In Chief Newspaper Name Role Phone Maverick Pardo MD Primary Care Physician [phone] [place] [facility] [place] 08/13[place]21 - 09/12/21 [facility] Allergies, Adverse Reactions, [...] 09/06/21 9:56:00 EST, Route to Pharmacy Electronically, [facility]/pharmacy #[id number], Partial fill upon patient [...] Refills, Maintenance, 06/16/21 15:25:00 EST, Injection, [facility]/pharmacy #[id number], Partial fill upon patient [...] 09/06/21 9:56:00 EST, Route to Pharmacy Electronically, [facility]/pharmacy #[id number], Partial fill upon patien... Start Date: [...] 10:32:00 EST, Route to Pharmacy Electronically, [facility]/pharmacy #[id number], Partial fill upon patient request if the prescription... Start Date: 08/17/21 Status: Ordered Readi-Cat 2 oral suspension See Instructions, Readi-cat 2 2 bottle 450 mL Dx:, # 900 mL, 0 Refills, Maintenance, 09/01/21 13:18:00 EST, [facility]/pharmacy #[id number], Partial fill upon patient [...]
--- OUTSIDE RECORDS SUMMARY | 2024-05-09 09:13 | XMS_ITS | Continuity of Care Document ---
Author Organization [facility] Address Unknown Care Team Providers Care Environmental Services Worker Name Role Phone Maverick Pardo MD Primary Care Physician [phone] [place] [facility] [place] [facility] [id number] Date(s): 01/28/22 - 02/04/22 [facility] Attending Physician: Dylan William MD Referring Physician: Maverick Pardo MD Allergies, [...] 09/06/21 9:56:00 EST, Route to Pharmacy Electronically, [facility]/pharmacy #[id number], Partial fill upon [...] drug. Start Date: 06/14/21 Status: Ordered [facility] [place] 50,0000 units, By Mouth, Daily, Refills 0, Maintenance, vitamin d3, 07/12/21 9:32:00 EST, Supply Start Date: 07/12/21 Status: Ordered oxyCODONE 5 mg oral tablet 5 mg, 1, tablet, By Mouth, Every 6 hours, PRN, # 28 tablet, Refills 0, Tot. Refills 0, Maintenance,as needed for pain, 08/11/21 11:27:00 EST, Route to Pharmacy Electronically, [facility]/pharmacy #[id number], Partial fill upon [...] oldest [Reference Range]: 1 Height 165.1 cm (01/28/22 11:35 AM) Weight 95.6 kg (01/28/22 11:35 AM) Pulse Rate [55-90 bpm] 102 bpm *H* (01/28/22 11:35 AM) Body Mass Index [18.5-24.99] 35.07 *>HHI* (01/28/22 11:35 AM) Blood Pressure [90-138/55-84 mm Hg] 135/ 93mm Hg (01/28/22 11:35 AM) Temperature [96.8-100.4 DegF] 97.3 DegF (01/28/22 11:35 AM) Blood pressure sites Arm, right (01/28/22 11:35 AM) Temperature Route Temporal (01/28/22 11:35 AM) Social History Social History Type Response Smoking Status 10 or more cigarette s (1/2 pack or more)/day in last 30 days entered on: 07/13/21 Sex
--- OUTSIDE RECORDS SUMMARY | 2024-05-09 09:13 | XMS_ITS | Continuity of Care Document ---
Author Organization [facility] Address [address] [place] [address], [address], [address] [place] [address]- Care Team Providers Care Internet Specialist Name Role Phone Cruz Farooq Primary Care Physician [phone] [place] [facility] [place](s[place] 01/09/24 - 02/08/24 [facility] [address] [place] [address] [address] Floor, [address] [place] [id number] Allergies, Adverse Reactions, Alerts Substance Reaction Severity [...] 09/21/22 14:52:00 EST, Route to Pharmacy Electronically, [facility], Partial fill upon patient request [...] 0 Refills, Soft Stop, 12/16/22 14:29:00 EDT, [facility], Partial fill upon patient request if the prescriptionis for a schedule II opioid drug., 165.1, cm, 12/16... Start Date: 12/16/22 Status: Ordered fenofibrate 145 mg oral tablet 1 tablet = 145 mg, By Mouth, Daily, # 30 tablet, 0 Refills, Maintenance, 09/21/22 14:53:00 EST, Tablet, [facility], Partial fill upon patient [...] opioid drug. Start Date: 09/21/22 Status: Ordered [facility] Rx 50,0000 units, By [...] 08/17/21 10:32:00 EST, Route to Pharmacy Electronically, [facility]/pharmacy #[id number], Partial fill upon patient request if the [...] Team Personnel Name: Rudy Huber RN Position: [facility] RN Member Role: Primary Care Nurse Name: Hasmukh Buckner RN Position: [facility] RN Member Role: Primary Care Nurse Name: Cruz Farooq Position: Reference Physician Member Role: PCP Address: Address: [address] [place] [address] [place] [id number] Name: Kay Sewell RN Position: [facility] SN RN Member Role: Primary Care Nurse Name: Valentin Parish RN Position: S RN Member Role: Primary Care Nurse Name: Faviola Irvin RN Position: [facility] RN Member Role: Primary Care Nurse Name: Jonathan Marquez RN Position: [facility] RN Member Role: Primary Care Nurse Name: Eugenia Pichardo RN Position: [facility] RN Member Role: Primary Care Nurse Name: Savannah Tyler RN Position: [facility] RN Member Role: Primary Care Nurse Name: Tayler Horn RN Position: S RN Member Role: Primary Care Nurse Name: Francy Nava LPN Position: S RN Member Role: Primary Care Nurse Care Team Related Persons Name: NICO FLORES Address: [address] [place] [address] Name: LIDIA VAZQUEZ Address: [address] [place] [address] Name: MONIQUE VERONICA Address: home UNK Name: ELEN VERONICA Address: [address] [place] [address]
--- OUTSIDE RECORDS SUMMARY | 2024-05-09 09:13 | XMS_ITS | Continuity of Care Document ---
Author Organization [facility] Address Unknown Care Team Providers Care Oil Rigger Name Role Phone Maverick Pardo MD Primary Care Physician [phone] [place] [facility] [place](s): 07/02/21 - 08/01/21 [facility] Allergies, Adverse Reactions, [...] opioid drug. Start Date: 06/14/21 Status: Ordered [facility] Rx Vitamin D3 2000IU, Daily, Refills 0, Maintenance, 07/12/21 9:32:00 EST, Supply Start Date: 07/12/21 Status: Ordered oxyCODONE 5 mg oral tablet 5 mg, 1, tablet, By Mouth, Every 6 hours, PRN, # 16 tablet, Refills 0, Tot. Refills 0, Maintenance,for pain, 06/29/21 13:03:00 EST, Route to Pharmacy Electronically, [facility]/pharmacy #[id number], Partial fillupon patient request if the prescription [...]
--- OUTSIDE RECORDS SUMMARY | 2024-05-09 09:13 | XMS_ITS | Continuity of Care Document ---
Author Organization [facility] ter Address [address] [place] [id number]- Care Team Providers Care Foam Machine Operator Name Role Phone Cruz Farooq Primary Care Physician Encounter [facility] Date(s): 12/16/22 - 12/16/[address] [address]- Encounter Diagnosis Malaise(Final) - 12/16/22 Discharge Disposition: A-D/C Home Attending Physician: Thania [...] 14:52:00 EST, Route to Pharmacy Electronically, [facility], Partial fill upon patient request [...] 0 Refills, Soft Stop, 12/16/22 14:29:00 EDT, [facility] 3, Partial fill upon patient request if the prescriptionis for a schedule II opioid drug., 165.1, cm, 12/16... Start Date: 12/16/22 Status: Ordered fenofibrate 145 mg oral tablet 1 tablet = 145 mg, By Mouth, Daily, # 30 tablet, 0 Refills, Maintenance, 09/21/22 14:53:00 EST, Tablet, [facility] 3, Partial fill upon patient request [...] 08/17/21 10:32:00 EST, Route to Pharmacy Electronically, [facility]/pharmacy #[id number], Partial fill upon patient request if the [...] Most recent to oldest [Reference Range]: 1 Oxygen Saturation [94-100 %] 100 % (12/16/22 1:05 PM) Pulse Rate [55-90 bpm] 75 bpm (12/16/22 1:05 PM) Blood Pressure [90-138/55-84 mm Hg] 138/ 98mm Hg (12/16/22 1:05 PM) Respiratory Rate [16-30 br/min] 18 br/mi n (12/16/22 1:05 PM) Temperature [96.8-100.4 DegF] 97.5 DegF (12/16/22 1:05 PM) Mode of Delivery (Oxygen) Room air (12/16/22 1:05 PM) Blood pressure sites Arm, left (12/16/22 1:05 PM) Temperature Route Oral (12/16/22 1:05 PM) Social History Social History Type Response Tobacco Use: 4 or less cigar ettes(less than 1/4 pack)/day in last 30 days. Other: Quit 3 weeks ago. Sex Note * Thania Gay DO: PERFORM, SIGN, VERIFY Event Display: Patient Education Handout Authored Date: [id number] * Thania Gay DO: PERFORM Event Display: Patient Education Leaflets Authored Date: [id number] Anaphylaxis ?? [id number] Anaphylaxis Anaphylaxis is a severe allergic reaction that can be life-threatening. This reaction can happen emi few minutes, or a few hours after exposure to what you are allergic to (allergen). The symptoms of an anaphylactic reaction may seem like other allergic reactions at first. Don't letthe early mild symptoms, such as a rash, hives, and itching, mislead you.??Your reaction??can get worse very quickly and become life- threatening within minutes. Severe symptoms of anaphylaxis include: ??? Trouble swallowing, feeling like your throat is closing ??? Trouble breathing, coughing, or wheezing ??? Chest pain or tightness ??? Cool, moist, or pale (blue in color) skin ??? Hoarse voice or trouble speaking ??? Upset stomach (nausea), vomiting, diarrhea, stomach cramps, or pain ??? Feelingfaint or lightheaded ??? Fast heart rate ??? Low blood pressure ??? Feeling dizzy or confused ??? Becoming very drowsy, poorly responsive, or having trouble waking up ??? Seizure ??? Swelling of the eyes, mouth, face, or tongue ??? Anxiety ??? Hives, rash, or itchy skin Sometimes the cause of the reaction may be obvious if you have a known allergy. If you know the cause of your reaction, prevent exposure to the allergen in the future. If you don't know the cause, follow up with your healthcare provider for special testing to find out what you're allergic to. To help find out an unknown allergen, remember: ??? When the reaction started ??? What you were doing at the time or just before that ??? Any new products or contacts Almost anything can cause a reaction. You may not even be aware that you had contact with an allergen. Allergies to dust, pollens, and animals rarely cause anaphylaxis. Here are some common causes ofanaphylaxis: ??? Foods such as??shellfish, peanuts, tree nuts, milk products, wheat, eggs; also, colorings, flavorings, additives ??? Insect bites or stings such as??bees, wasps, hornets, or fire ants ??? Medicines such as??penicillin, sulfa, aspirin, ibuprofen; any medicine can cause a reaction ??? Latex such as in gloves, clothes, toys, balloons, or some tapes; some people allergic to latex may also have problems with foods like bananas, avocados, kiwi, papaya, or chestnuts If you're exposed to the same substance again, you may have the same or a more severe reaction. Home care Once you're stabilized in the emergency room and it's safe for you to go home, watch for any worsening symptoms. Call 911 if symptoms get worse. You may need to be treated again. Medicines Injectable epinephrine One of the nayak tools in treating anaphylaxis is early use of epinephrine. If you had a severe allergic or anaphylactic reaction, the healthcare provider may prescribe a self-injectable epinephrine kit with 2 epinephrine injectors. If this was prescribed, always carry both epinephrine injectors. It can be lifesaving. Epinephrine can help stop the progression of an allergic reaction. Its effects are brief. So after you use the medicine, it's still very important to call 911 right away and get to an??emergency??room. When to use injectable epinephrine Use the epinephrine if you have any of these symptoms, or as advised by your healthcare provider: ??? Swelling in your mouth or throat? Trouble speaking or swallowing ??? Trouble breathing ???Feeling faint, low blood pressure, or becoming drowsy or poorly responsive ??? Rash that gets worse Ask your healthcare provider or pharmacist to teach you how to use your injectable epinephrine. ??? Injectors are designed to be injected into the outside of the upper thigh. ??? Be careful not to stick your fingers or hand with the needle. ??? You can inject it through pants, but make sure notto inject it into the seam of the pants. ??? Don't pull it out right away. Try to hold the needle in place for 10 seconds. ??? Massage the spot for a few seconds or as advised by your healthcare provider. ??? If you're injecting it in someone else or a child, try to hold them or their leg still. Ifthey jerk or yank their legs away as you're doing it, it can cause a cut on their leg. You may feel shaky, jittery, nervous, and anxious after the injection. Although it's hard, try to relax. This is a side effect of the epinephrine. It should stop after a few minutes.?? Important ??? Call 911 or go to the??emergency room??immediately after using the epinephrine. Its effect willwear off, and you may have a second reaction. This could even happen hours later. ??? If your symptoms start to return 5 to 15 minutes after using your epinephrine injector and help hasn't arrived yet, use the second injector. ??? Never knowingly eat, use, or expose yourself to the substance that caused the anaphylactic reaction. Nothing is foolproof, including the injectable epinephrine. Other medicines The healthcare provider may??prescribe medicine to ease swelling, itching, and pain. Follow the provider's instructions when using this medicine.? Oral diphenhydramine is an antihistamine available at drug and grocery stores. Unless a prescription antihistamine was given, diphenhydramine may be used to reduce itching if large areas of the skin are involved.??It may make you sleepy, so be careful using it in the daytime or when going to school, working, or driving.??Talk with your provider before using antihistamines if you have glaucoma, thyroid disease, high blood pressure, heart disease, breathing problems, or if you have trouble peeing due to an enlarged prostate. ??? Don't use diphenhydramine cream on your skin because in some people it can cause a further reaction. ??? You may use [id number] acetaminophen or ibuprofen to control pain, unless another pain medicine was prescribed. Ask your healthcare provider what medicines are safe for you, especially if you have heart, kidney, or liver disease, are taking blood thinners, are at risk for gastrointestinal ulcers or bleeding, or have high blood pressure. ??? If you were prescribed any medicines to prevent symptoms from returning, be sure to take them exactly as directed. General care ??? Rest at home for the next 24 hours. ??? Don't use tobacco or drink alcohol. These may make your symptoms worse. ??? If you know what caused your reaction today, stay away from that in the future. Let your family members, friends, and personal healthcare provider know about your allergic reaction. ??? If your allergy was to food, learn how to read food labels so you can check for that ingredient. If a product doesn't have a label, it's best to stay away from it. ??? Consider carrying an ID card or getting a medical alert bracelet to inform medical staff of your condition in??case you can't tell them. ??? Tell all your healthcare providers that you had an anaphylactic reaction. Make sure the information is added to your medical records. ?? Follow-up care Follow up with your healthcare provider or as advised if you aren't improving over the next 1 to 2 days. ?? Call 911 Call 911 if any of these occur: ??? Trouble breathing or swallowing, wheezing ??? Hoarse voice or trouble speaking ??? Chest pain or tightness ??? Confusion ??? Very drowsy or trouble awakening ??? Fainting or loss of consciousness ??? Fast heart rate ??? Low blood pressure ??? Vomiting blood, or large amounts of blood in stool ??? Seizure ??? Swelling in the eyes, mouth, face, or tongue ??? Dizziness or weakness ??? Cool, moist, or pale (blue in color) skin ??? Nausea, vomiting, diarrhea, stomach cramps, or belly (abdominal) pain ?? When to get medical advice Call your healthcare provider right away if any of these occur: ??? Your symptoms get worse ??? Newsymptoms ??? Symptoms don't go away or come back ?? Last Reviewed Date: 2022 ?? 5043-7951 [employer]. All rights reserved. This information is not intended as a substitute for professional medical care. Always follow your healthcare professional's instructions. ?? Patient Care team information Care Team Personnel Name: Adelita Castillo RN Position: [facility] ED RN W/OE and Tasks Member Role: Primary Care Nurse Name: Rudy Huber RN Position: [facility] RN Member Role: Primary Care Nurse Name: Hasmukh Buckner RN Position: [facility] RN Member Role: Primary Care Nurse Name: Cruz Farooq Position: Reference Physician Member Role: PCP Address: Address: [address] [place] [id number]- Name: Kay Sewell RN Position: [facility] RN Member Role: Primary Care Nurse Name: Valentin Parish RN Position: [facility] RN Member Role: Primary Care Nurse Name: Faviola Irvin RN Position: [facility] RN Member Role: Primary Care Nurse Name: Jonathan Marquez RN Position: [facility] RN Member Role: Primary Care Nurse Name: Eugenia Pichardo RN Position: [facility] RN Member Role: Primary Care Nurse Name: Savannah Tyler RN Position: [facility] RN Member Role: Primary Care Nurse Name: Tayler Horn RN Position: [facility] RN Member Role: Primary Care Nurse Name: Francy Nava LPN Position: [facility] RN Member Role: Primary Care [facility] Attending Position: [facility] ED Attendings Patient Name: Mara Morales RN Position: [facility] ED RN W/OE and Tasks Member Role: Patient Care Provider Name: Thania Gay DO Position: [facility] ED Medicine MD Member Role: Admitting Physician Address: Address: [address] [place] [id number]- Care Team Related Persons Name: ALCALINO, KAPRY Address: home [address] [place] [address] Name: LIDIA VAZQUEZ Address: home [address] [place] [address] Name: MONIQUE VERONICA Address: home [place] Name: ELEN VERONICA Address: home [address] [place] [address]
--- OUTSIDE RECORDS SUMMARY | 2024-05-09 09:13 | XMS_ITS | Continuity of Care Document ---
Author Organization [facility] Address Unknown Care Team Providers Care Plate Mill Hand Name Role Phone Maverick Pardo MD Primary Care Physician [place] [facility] [place] 08[place]/21 [facility] Attending Physician: Elizabeth Olmstead [...] 07/17/21 10:44:00 EST, Route to Pharmacy Electronically, [facility]/pharmacy #[id number], Partial fill upon [...] 08/03/21 15:12:00 EST, Route to Pharmacy Electronically, [facility], Partial fill uponpatient request if the prescription is for a schedu... Start Date: 08/03/21 Stop Date: 08/08/21 Status: Ordered Lantus Solostar Pen 100 units/mL subcutaneous solution = 30 units, Subcutaneous Injection, Daily at bedtime, # 10 mL, 2 Refills, Maintenance, 06/16/21 15:25:00 EST, Injection, [facility]/pharmacy #[id number], Partial fill upon [...] opioid drug. Start Date: 06/14/21 Status: Ordered [facility] [place] Vitamin D3 2000IU, Daily, Refills 0, Maintenance, 07/12/21 9:32:00 EST, Supply Start Date: 07/12/21 Status: Ordered oxyCODONE 5 mg oral tablet 5 mg, 1, tablet, By Mouth, Every 6 hours, PRN, # 28 tablet, Refills 0, Tot. Refills 0, Maintenance,as needed for pain, 08/11/21 11:27:00 EST, Route to Pharmacy Electronically, [facility]/pharmacy #[id number], Partial fill upon patient request if the prescription... Start Date: 08/11/21 Status: Ordered oxyCODONE 5 mg oral tablet 5 mg, 1, tablet, By Mouth, Every 6 hours, PRN, # 28 tablet, Refills 0, Tot. Refills 0, Maintenance,as needed for pain, 08/17/21 10:32:00 EST, Route to Pharmacy Electronically, [facility]/pharmacy #[id number], Partial fill upon [...]
--- OUTSIDE RECORDS SUMMARY | 2024-05-09 09:13 | XMS_ITS | Continuity of Care Document ---
Author Organization [facility] Address Unknown Care Team Providers Care Vice President Of Communications Name Role Phone Maverick Pardo MD Primary Care Physician [place] [facility] [place]): [place] 08/27/21 [facility] Attending Physician: Elizabeth Olmstead [...] 07/17/21 10:44:00 EST, Route to Pharmacy Electronically, [facility]/pharmacy #[id number], Partial fill upon patient request if the prescriptio... Start Date: 07/17/21 Status: Ordered Colace sodium 100 mg oral capsule 100 mg, 1, capsule, By Mouth, 2 times a day, PRN, # 60 capsule, Refills 2, Tot. Refills 2, Maintenance, for constipation, 08/27/21 11:03:00 EST, Route to Pharmacy Electronically, [facility]/pharmacy #[id number], Partial fill upon patient request [...] 08/03/21 15:12:00 EST, Route to Pharmacy Electronically, [facility] 3, Partial fill uponpatient request if the [...] opioid drug. Start Date: 06/14/21 Status: Ordered [facility] [place] Vitamin D3 2000IU, Daily, Refills 0, Maintenance, 07/12/21 9:32:00 EST, Supply Start Date: 07/12/21 Status: Ordered oxyCODONE 5 mg oral tablet 5 mg, 1, tablet, By Mouth, Every 6 hours, PRN, # 28 tablet, Refills 0, Tot. Refills 0, Maintenance,as needed for pain, 08/11/21 11:27:00 EST, Route to Pharmacy Electronically, [facility]/pharmacy #[id number], Partial fill upon patient request [...] 08/27/21 11:12:00 EST, Route to Pharmacy Electronically, [facility]/pharmacy #[id number], Partial fill upon leslee... Start Date: [...]
--- OUTSIDE RECORDS SUMMARY | 2024-05-09 09:13 | XMS_ITS | Continuity of Care Document ---
Author Organization [facility] Torrie clair Address [address] [place] [address] [address] [place] [address]- Care Team Providers Care Human Development Professor Name Role Phone Cruz Farooq Primary Care Physician [phone] Encounter [facility] Date(s): 05/04/22 - 06/03/22 [facility] [address] [place], [place] [address] Allergies, Adverse Reactions, Alerts Substance Reaction [...] 2 Refills, Maintenance, 06/16/21 15:25:00 EST, Injection, [facility]/pharmacy #[id number], Partial fill upon patient request if the [...] opioid drug. Start Date: 05/02/22 Status: Ordered Mis Rx 50,0000 units, By [...] 08/17/21 10:32:00 EST, Route to Pharmacy Electronically, [facility]/pharmacy #[id number], Partial fill upon patient request if the prescription... Start Date: 08/17/21 Status: Ordered Readi-Cat 2 oral suspension See Instructions, Readi-cat 2 2 bottle 450 mL Dx:, # 900 mL, 0 Refills, Maintenance, 09/01/21 13:18:00 EST, [facility]/pharmacy #[id number], Partial fill upon [...] on: 05/02/22 Sex Patient Care team information Care Team Personnel Name: Blanca Dumont RN Position: S RN Member Role: Primary Care Nurse Name: Rudy Huber RN Position: S RN Member Role: Primary Care Nurse Name: Hasmukh Buckner RN Position: S RN Member Role: Primary Care Nurse Name: Cruz Farooq Position: Reference Physician Member Role: PCP Address: Address: [address] [place] [id number] Name: Kay Sewell RN Position: S RN [...] Persons Name: NICO FLORES Address: home [address] [place] [address] Name: LIDIA VAZQUEZ Address: [address] [place] [address] Name: MONIQUE VERONICA Address: home [facility]
--- OUTSIDE RECORDS SUMMARY | 2024-05-09 09:13 | XMS_ITS | Continuity of Care Document ---
Author Organization [facility] Address Unknown Care Team Providers Care Business Systems Consultant Name Role Phone Maverick Pardo MD Primary Care Physician [place] [facility] [place] 09[place]21/21 - 10/31/21 [facility] Attending Physician: Elizabeth Olmstead [...] 9:56:00 EST, Route to Pharmacy Electronically, [facility]/pharmacy #[id number], Partial fill upon patient request if [...]
--- OUTSIDE RECORDS SUMMARY | 2024-05-09 09:13 | XMS_ITS | Continuity of Care Document ---
Author Organization [facility] ter Address [address] [place] [address]- Care Team Providers Care Audio Technician Name Role Phone Maverick Pardo MD Primary Care Physician [phone] [place] [facility] [place] 08/03/[address] [address] Discharge Disposition: A-D/C Home Attending Physician: Elizabeth Olmstead MD Admitting Physician: Elizabeth Olmstead MD Referring Physician: Elizabeth Olmstead MD Allergies, Adverse Reactions, Alerts Substance Reaction Severity Status Adhesive Bandage rash Active Latex rash Active Immunizations Not Given Vaccine Date Status Refusal Reason influenza virus vaccine, inactivated 07/17/21 Not Given Patient Refuses Medications acetaminophen 325 mg oral tablet 975 mg, [...] 07/17/21 10:44:00 EST, Route to Pharmacy Electronically, [facility]/pharmacy #[id number], Partial fill upon patient request if the prescriptio... Start Date: 07/17/21 Status: Ordered Dilaudid Inj 0.2 mg, Injection, IV Push Slowly, Once, PRN for Pain , Severe, STAT, 08/03/21 12:00:00 EST Start Date: 08/03/21 Stop Date: 08/03/21 Status: Completed gabapentin 300 mg oral capsule 300 mg, Capsule, By Mouth, 08/03/21 15:00:00 EST Start Date: 08/03/21 Stop Date: 08/03/21 Status: Completed gabapentin 300 mg oral capsule 300 mg, 1, capsule, By Mouth, 3 times a day, # 15 capsule, Refills 0, Tot. Refills 0, Maintenance, 08/03/21 15:12:00 EST, Route to Pharmacy Electronically, [facility], Partial fill uponpatient request if the prescription is for a schedu... Start Date: 08/03/21 Stop Date: 08/08/21 Status: Ordered Lantus Solostar Pen 100 units/mL subcutaneous solution = 30 units, Subcutaneous Injection, Daily at bedtime, # 10 mL, 2 Refills, Maintenance, 06/16/21 15:25:00 EST, Injection, [facility]/pharmacy #[id number], Partial fill upon patient request [...] opioid drug. Start Date: 06/14/21 Status: [place] [facility] [place] D3 2000IU, Daily, Refills 0, Maintenance, 07/12/21 9:32:00 EST, Supply Start Date: 07/12/21 Status: Ordered oxyCODONE 5 mg oral tablet 10 mg, Tablet, By Mouth, Every 4 hours, PRN for Pain , Severe, Routine, 08/03/21 8:26:00 EST Start Date: 08/03/21 Stop Date: 08/10/21 Status: Ordered oxyCODONE 5 mg oral tablet 10 mg, 2, tablet, By Mouth, Every 6 hours, PRN, for 5 days, # 40 tablet, Refills 0, Tot. Refills 0,Acute 08/08/21 15:13:00 EST, Pain , Moderate, 08/03/21 15:13:00 EST, Route to Pharmacy Electronically, [facility], Partial fill upon leslee... Start Date: 08/03/21 Stop Date: 08/08/21 Status: Ordered Problem List Condition Effective Dates Status Health Status Inform ant Dyslipidemia(Confirmed) Active Hx of abscess of breast(Confirmed) Active Hirsutism(Confirmed) Active Hypertension(Confirmed) Active Cervical mass(Confirmed) Active Obese class I(Confirmed) Active Obesity(Confirmed) Active DM2 (diabetes mellitus, type 2)(Confirmed) Active Vitamin D deficiency(Confirmed) Active Results Radiology Reports * Exam Date Time Procedure Performing Provider Status 07/30/21 4:17 PM Abdomen AP Birtt Rodriguez; Auth (V erified) Notes: (Abdomen AP) Reason For Exam: Nausea/Vomiting RESULT: XR Abdomen AP XR Abdomen AP TECHNIQUE: Supine view of the abdomen and pelvis, 2 images. Reason: Nausea Vomiting; Clinical Question(s): Obstruction. COMPARISON: 07/16/2021. FINDINGS: Lines and tubes: Jamie-Hitchcock drain in the left lower quadrant of the abdomen. Parson catheter. Gas pattern: Nonobstructive bowel gas pattern with minimal air likely within large bowel. No significant small bowel gas. Free air: No evidence of pneumoperitoneum. Soft tissue: Surgical skin meghna project over the right pelvis. Bones: No acute abnormality. IMPRESSION: Nonobstructive bowel gas pattern. WSN: [id number] Ordering Physician: Kg Reeves Dictated By: David Rangel MD Dictated Date/Time: 07/30/21 4:58 pm Reviewed By: David Rangel MD Signed By: David Rangel MD Signed Date/Time: 07/30/21 4:58 pm Transcribed By: HAIDER Transcribed Date/Time: 07/30/21 4:54 pm Vital Signs Most recent to oldest [Reference Range]: 1 2 3 Height 165.1 cm (1/11/22 7:02 AM) 165.1 cm (08/03/21 4:20 AM) 165.1 cm (08/03/21 12:34 AM) Weight 93.7 kg (07/28/21 10:05 AM) 95 kg (07/12/21 9:43 AM) Oxygen Saturation [94-100 %] 98 % (08/03/21 7:02 AM) 96 % (08/03/21 4:20 AM) 97 % (08/03/21 12:34 AM) Pulse Rate [55-90 bpm] 82 bpm (08/03/21 7:02 AM) 77 bpm (08/03/21 4:20 AM) 68 bpm (08/03/21 12:34 AM) Body Mass Index [18.5-24.99] 34.38 *>HHI* (07/28/21 10:05 AM) 34.85 *>HHI* (07/12/21 9:43 AM) Blood Pressure [90-138/55-84 mm Hg] 131/79mm Hg (08/03/21 7:02 AM) 137/81mm Hg (08/03/21 4:20 AM) 132/84mm Hg (08/03/21 12:34 AM) Respiratory Rate [16-30 br/min] 18 br/min (08/03/21 2:28 PM) 18 br/min (08/03/21 2:28 PM) 16 br/min (08/03/21 12:07 PM) Temperature [96.8-100.4 DegF] 97.9 DegF (08/03/21 7:02 AM) 98.1 DegF (08/03/21 4:20 AM) 97.7 DegF (08/03/21 12:34 AM) Liters per Minute 2 L/min (07/29/21 3:55 PM) 2 L/min (07/29/21 11:38 AM) 2 L/min (07/29/21 7:03 AM) Mode of Delivery (Oxygen) Room air (08/03/21 7:02 AM) Room air (08/03/21 4:20 AM) Room air (08/03/21 12:34 AM) Blood pressure sites Arm, right (08/03/21 7:02 AM) Arm, left (08/03/21 4:20 AM) Arm, right (08/03/21 12:34 AM) Temperature Route Oral (08/03/21 7:02 AM) Oral (08/03/21 4:20 AM) Oral (08/03/21 12:34 AM) Dry Weight 93.7 kg (07/28/21 10:05 AM) 95 kg (07/12/21 9:43 AM) Weight Obtained Via Standing scale (07/28/21 10:05 AM) Dry Weight Obtained Via Standing scale (07/28/21 10:05 AM) Social History Social History Type Response Smoking Status 10 or more cigarette s (1/2 pack or more)/day in last 30 days entered on: 07/13/21 Sex
--- OUTSIDE RECORDS SUMMARY | 2024-05-09 09:13 | XMS_ITS | Continuity of Care Document ---
Author Organization [facility] Address Unknown Care Team Providers Care Timber Appraiser Name Role Phone Maverick Pardo MD Primary Care Physician Encounter [facility] [place] Date(s): 06/29/21 - 07/06/21 [facility] Attending Physician: Claire Kirk NP Referring Physician: Not on Staff, Referring MD Allergies, Adverse Reactions, Alerts Substance Reaction Severity Status Latex Active Medications Advair Diskus 250 mcg-50 mcg inhalation powder 1, inhalation, Inhalation, 2 times a day, rinse mouth and throat after use, Refills 0, Maintenance,06/14/21 1:10:00 EST, Powder Start Date: 06/14/21 Status: [...] 2 Refills, Maintenance, 06/16/21 15:25:00 EST, Injection, [facility]/pharmacy #[id number], Partial fill upon patient request if the [...] opioid drug. Start Date: 06/14/21 Status: Ordered montelukast 10 mg oral tablet 10 mg, 1, tablet, By Mouth, Daily, Refills 0, Maintenance, 06/14/21 1:09:00 EST, Partial fill upon patient request if the prescription is for a schedule II opioid drug. Start Date: 06/14/21 Status: Ordered oxyCODONE 5 mg oral tablet 5 mg, 1, tablet, By Mouth, Every 6 hours, PRN, # 16 tablet, Refills 0, Tot. Refills 0, Maintenance,for pain, 06/29/21 13:03:00 EST, Route to Pharmacy Electronically, [facility]/pharmacy #[id number], Partial fillupon patient request if the prescription is for a s... Start Date: 06/29/21 Status: Ordered Problem List Condition Effective Dates Status Health Status Inform ant Dyslipidemia(Confirmed) Active Hx of abscess of breast(Confirmed) Active Hirsutism(Confirmed) Active Hypertension(Confirmed) Active Obese class I(Confirmed) Active Obesity(Confirmed) Active DM2 (diabetes mellitus, type 2)(Confirmed) Active Vitamin D deficiency(Confirmed) Active Vital Signs Most recent to oldest [Reference Range]: 1 Height 166 cm (06/29/21 9:08 AM) Weight 96.4 kg (06/29/21 9:08 AM) Pulse Rate [55-90 bpm] 105 bpm *H* (06/29/21 9:08 AM) Body Mass Index [18.5-24.99] 34.98 *>HHI* (06/29/21 9:08 AM) Blood Pressure [90-138/55-84 mm Hg] 148/ 95mm Hg *H* (06/29/21 9:08 AM) Respiratory Rate [16-30 br/min] 16 br/mi n (06/29/21 9:08 AM) Temperature [96.8-100.4 DegF] 96.8 DegF (06/29/21 9:08 AM) Social History Social History Type Response Tobacco Use: 4 or less cigar ettes(less than 1/4 pack)/day in last 30 days. Sex
--- OUTSIDE RECORDS SUMMARY | 2024-05-09 09:14 | XMS_ITS | Continuity of Care Document ---
Author Organization [facility] Address Unknown Care Team Providers Care Golf Course Starter Name Role Phone Maverick Pardo MD Primary Care Physician [phone] Encounter [facility] [place] Date(s): 08/16/21 - 08/23/21 [facility] Attending Physician: Elizabeth Olmstead [...] 07/17/21 10:44:00 EST, Route to Pharmacy Electronically, [facility]/pharmacy #[id number], Partial fill upon patient request if the prescriptio... Start Date: 07/17/21 Status: Ordered gabapentin 300 mg oral capsule 300 mg, 1, capsule, By Mouth, 3 times a day, # 15 capsule, Refills 0, Tot. Refills 0, Maintenance, 08/03/21 15:12:00 EST, Route to Pharmacy Electronically, [facility], Partial fill uponpatient request if the prescription is for a schedu... Start Date: 08/03/21 Stop Date: 08/08/21 Status: Ordered Lantus Solostar Pen 100 units/mL subcutaneous solution = 30 units, Subcutaneous Injection, Daily at bedtime, # 10 mL, 2 Refills, Maintenance, 06/16/21 15:25:00 EST, Injection, [facility]/pharmacy #[id number], Partial fill upon patient request [...] opioid drug. Start Date: 06/14/21 Status: Ordered [facility] Rx Vitamin D3 2000IU, Daily, Refills 0, Maintenance, 07/12/21 9:32:00 EST, Supply Start Date: 07/12/21 Status: Ordered oxyCODONE 5 mg oral tablet 5 mg, 1, tablet, By Mouth, Every 6 hours, PRN, # 28 tablet, Refills 0, Tot. Refills 0, Maintenance,as needed for pain, 08/11/21 11:27:00 EST, Route to Pharmacy Electronically, [facility]/pharmacy #[id number], Partial fill upon patient request [...] the prescription... Start Date: 08/17/21 Status: Ordered Problem List Condition Effective Dates [...]
--- OUTSIDE RECORDS SUMMARY | 2024-05-09 09:14 | XMS_ITS | Continuity of Care Document ---
Author Organization [facility] Address Unknown Care Team Providers Care General Internal Medicine Doctor Name Role Phone Maverick Pardo MD Primary Care Physician [phone] [place] [facility] [place] 09[place]28/21 [facility] Attending Physician: Not on Staff, Attending MD Referring Physician: Maverick Pardo MD Allergies, [...] 09/06/21 9:56:00 EST, Route to Pharmacy Electronically, [facility]/pharmacy #[id number], Partial fill upon patient request if the prescription... Start Date: 09/06/21 Stop Date: 04/04/22 Status: Ordered Colace sodium 100 mg oral capsule 100 mg, 1, capsule, By Mouth, 2 times a day, PRN, # 20 capsule, Refills 0, Tot. Refills 0, Maintenance, for constipation, 07/17/21 10:44:00 EST, Route to Pharmacy Electronically, [facility]/pharmacy #[id number], Partial fill upon patient request [...]
--- OUTSIDE RECORDS SUMMARY | 2024-05-09 09:14 | XMS_ITS | Continuity of Care Document ---
Author Organization [facility] Address [address] [place] [address] [address] [place] [address]- Care Team Providers Care Grain Miller Helper Name Role Phone Cruz Farooq Primary Care Physician Encounter [facility] [place] Date(s): 03/29/23 - 04/28/23 [facility] [address] [place] [address]- Allergies, Adverse Reactions, Alerts Substance Reaction Severity [...] 09/21/22 14:52:00 EST, Route to Pharmacy Electronically, [facility], Partial fill upon patient request [...] 0 Refills, Soft Stop, 12/16/22 14:29:00 EDT, [facility], Partial fill upon patient request if the prescriptionis for a schedule II opioid drug., 165.1, cm, 12/16... Start Date: 12/16/22 Status: Ordered fenofibrate 145 mg oral tablet 1 tablet = 145 mg, By Mouth, Daily, # 30 tablet, 0 Refills, Maintenance, 09/21/22 14:53:00 EST, Tablet, [facility], Partial fill upon patient request if [...] 08/17/21 10:32:00 EST, Route to Pharmacy Electronically, [facility]/pharmacy #[id number], Partial fill upon patient request if the [...] Team Personnel Name: Adelita Castillo RN Position: [facility] ED RN W/OE and Tasks Member Role: Primary Care Nurse Name: Rudy Huber RN Position: [facility] RN Member Role: Primary Care Nurse Name: Hasmukh Buckner RN Position: [facility] RN Member Role: Primary Care Nurse Name: Cruz Farooq Position: Reference Physician Member Role: PCP Address: Address: [address] [place] [address]- Name: Kya Sewell RN Position: [facility] RN Member Role: Primary Care Nurse Name: Valentin Parish RN Position: S RN Member Role: Primary Care Nurse Name: Faviola Irvin RN Position: S RN Member Role: Primary Care Nurse Name: Jonathan Marquez RN Position: [facility] RN Member Role: Primary Care Nurse Name: Eugenia Pichardo RN Position: S RN Member Role: Primary Care Nurse Name: Savannah Tyler RN Position: S RN Member Role: Primary Care Nurse Name: Tayler Horn RN Position: S RN Member Role: Primary Care Nurse Name: Francy Nava LPN Position: [facility] RN Member Role: Primary Care Nurse Care Team Related Persons Name: JUAN DIEGO FLORESPHOENIX Address: [address] [place] [address] Name: LIDIA VAZQUEZ Address: home [address] [place] [address] Name: MONIQUE VERONICA Address: home [place] Name: ELEN VERONICA Address: [address] [place] [address]
--- OUTSIDE RECORDS SUMMARY | 2024-05-09 09:14 | XMS_ITS | Continuity of Care Document ---
Author Organization [facility] Address Unknown Care Team Providers Care Wheel Press Operator Name Role Phone Maveirck Pardo MD Primary Care Physician Encounter [facility] [place] Date(s): 08/31/21 - 09/07/21 [facility] Attending Physician: [...] 09/06/21 9:56:00 EST, Route to Pharmacy Electronically, [facility]/pharmacy #[id number], Partial fill upon patient request if the prescription... Start Date: 09/06/21 Stop Date: 04/04/22 Status: Ordered Colace sodium 100 mg oral capsule 100 mg, 1, capsule, By Mouth, 2 times a day, PRN, # 20 capsule, Refills 0, Tot. Refills 0, Maintenance, for constipation, 07/17/21 10:44:00 EST, Route to Pharmacy Electronically, [facility]/pharmacy #[id number], Partial fill upon patient [...] 09/06/21 9:56:00 EST, Route to Pharmacy Electronically, [facility]/pharmacy #[id number], Partial fill upon patien... Start [...] oldest [Reference Range]: 1 Height 165.1 cm (08/31/21 2:00 PM) Weight 94.3 kg (08/31/21 2:00 PM) Body Mass Index [18.5-24.99] 34.6 *>HHI* (08/31/21 2:00 PM) Respiratory Rate [16-30 br/min] 16 br/mi n (08/31/21 2:00 PM) Weight Obtained Via Standing scale (08/31/21 2:00 PM) Social History Social History Type Response Smoking Status 10 or more cigarette s (1/2 pack or more)/day in last 30 days entered on: 07/13/21 Sex
--- OUTSIDE RECORDS SUMMARY | 2024-05-09 09:14 | XMS_ITS | Continuity of Care Document ---
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 Start Date: 09/21/22 Status: Ordered amLODIPine 5 mg oral tablet 5 mg, Tablet, By Mouth, 09/21/22 9:00:00 EST Start Date: 09/21/22 Stop Date: 09/21/22 Status: Completed aspirin 81 mg oral delayed release tablet 81 mg, 1, tablet, By Mouth, Daily, # 30 tablet, Refills 1, Tot. Refills 1, Maintenance, 09/21/22 14:52:00 EST, Route to Pharmacy Electronically, [facility], Partial fill upon patient [...] 0 Refills, Maintenance, 09/21/22 14:53:00 EST, Tablet, [facility], Partial fill upon patient [...] opioid drug. Start Date: 06/14/21 Status: Ordered lisinopril 5 mg oral tablet 2.5 mg, Tablet, By Mouth, 09/21/22 9:00:00 EST Start Date: 09/21/22 Stop Date: 09/21/22 Status: Completed [facility] Rx 50,0000 units, By Mouth, Daily, Refills 0, Maintenance, vitamin d3, 07/12/21 9:32:00 EST, Supply Start Date: 07/12/21 Status: Ordered MorPHINE Inj 2 mg, Injection, IV Push Slowly, Every 3 hours, PRN for Pain , Moderate, Routine, 09/21/22 1:26:00 EST Start Date: 09/21/22 Stop Date: 09/22/22 Status: Discontinued Nicorette 2 mg oral transmucosal gum 1 [...] 08/17/21 10:32:00 EST, Route to Pharmacy Electronically, [id number], Partial fill upon patient request if [...] Exam Date Time Procedure Performing Provider Status 09/21/22 11:24 AM US Doppler Ext Lower Venous Bilat Rossy James; Auth (Verified) Notes: (US Doppler Ext Lower Venous Bilat) Reason For Exam: elevated d-dimer;Other: RESULT: US Doppler Ext Lower Venous Bilat US Doppler Ext Lower Venous Bilat Reason: Elevated d-dimer; Clinical Question(s): Thrombosis COMPARISON: None IMAGING TECHNIQUE: Ultrasound of the veins from the groin through the calf was performed using grayscale, color, and spectral Doppler ultrasound assessing for complete compressibility and normal flowcharacteristics. FINDINGS: RIGHT LOWER EXTREMITY: Common femoral vein: Patent. No thrombosis. Femoral vein: Patent. No thrombosis. Popliteal vein: Patent. No thrombosis. Gastrocnemius veins: The visualized portions are patent without evidence of thrombosis. Peroneal veins: The visualized portions are patent without evidence of thrombosis. Posterior tibial veins: The visualized portions are patent without evidence of thrombosis. LEFT LOWER EXTREMITY: Common femoral vein: Patent. No thrombosis. Femoral vein: Patent. No thrombosis. Popliteal vein: Patent. No thrombosis. Gastrocnemius veins: The visualized portions are patent without evidence of thrombosis. Peroneal veins: The visualized portions are patent without evidence of thrombosis. Posterior tibial veins: The visualized portions are patent without evidence of thrombosis. IMPRESSION: No evidence of deep venous thrombosis. WSN: [id number] Ordering Physician: Cintia Oviedo Dictated By: Adi Sloan MD Dictated Date/Time: 09/21/22 11:59 a Reviewed By: Adi Sloan MD Signed By: Adi Sloan MD Signed Date/Time: 09/21/22 11:59 am Transcribed By: HAIDER Transcribed Date/Time: 09/21/22 11:46 am * Exam Date Time Procedure Performing Provider Status 09/20/22 8:35 PM US RUQ Ivet Valles; Deidra (Verified) Notes: (US RUQ) Reason For Exam: Choledocholithiasis RESULT: US RUQ US RUQ HX OF PRESENT ILLNESS: MCO - high blood sugars, chest pain after using vape pen 2 days ago (worse now), L arm pain. numbness, tingling, epigastric AP, increased distention lower abd.; Reason: Choledocholithiasis; Clinical Question(s): Cholecystitis COMPARISON: CT from 03/24/2022. FINDINGS: Liver: Diffusely echogenic parenchyma. No suspicious lesion. Enlarged, measuring 26.8 cm in length.Smooth hepatic contour. Main portal vein patent with normal hepatopetal direction of flow. Gallbladder: No gallstones. Normal wall thickness. No pericholecystic fluid. Negative Sheppard sign. Gallbladder is contracted. Biliary Tree: No intrahepatic or extrahepatic bile duct dilation is identified. Common duct measures: 0.5 cm. Pancreas: Partially obscured by overlying bowel gas. No abnormality in the visualized portions of the pancreas. Right kidney: 12.3 cm in length. Normal parenchymal echotexture and thickness. No hydronephrosis, stone or mass. IMPRESSION: Echogenic, enlarged liver likely representing hepatic steatosis. Otherwise unremarkable exam. WSN: [id number] Ordering Physician: Brooks Rios Dictated By: Corey Monique MD Dictated Date/Time: 09/20/22 8:42 pm Reviewed By: oCrey Monique MD Signed By: Corey Monique MD Signed Date/Time: 09/20/22 8:42 pm Transcribed By: HAIDER Transcribed Date/Time: 09/20/22 8:40 pm * Exam Date Time Procedure Performing Provider Status 09/20/22 7:04 PM Chest 2 Views Frontal and Lat Monique Rhodes; Auth (Verified) Notes: (Chest 2 Views Frontal and Lat) Reason For Exam: Chest Pain;Other: RESULT: Chest 2 Views Frontal and Lat Chest 2 Views Frontal and Lat Hx of Present Illness: MCO - high blood sugars, chest pain after using vape pen 2 days ago (worse now), L arm pain. Numbness, tingling, epigastric AP, increased distention lower abd.; Reason: Other:;Chest Pain; Clinical Question(s): Other: COMPARISON: 03/14/2018. FINDINGS: LUNGS AND PLEURA: Clear lungs. Normal pulmonary vascularity. No pleural effusion. No pneumothorax. HEART, MEDIASTINUM AND RIRI: Heart is normal in size. Normal mediastinal and hilar contour. BONES AND SOFT TISSUES: No acute abnormality. IMPRESSION: No acute abnormality. WSN: [id number] Ordering Physician: Julianna Lazaro Dictated By: Mason Cooley MD Dictated Date/Time: 09/20/22 7:05 pm Reviewed By: Mason Cooley MD Signed By: Mason Cooley MD Signed Date/Time: 09/20/22 7:05 pm Transcribed By: HAIDER Transcribed Date/Time: 09/20/22 7:05 pm Vital Signs Most recent to oldest [Reference Range]: 1 2 3 4 Weight 98.1 kg (09/21/22 2:33 AM) Oxygen Saturation [94-100 %] 99 % (09/21/22 3:10 PM) 99 % (09/21/22 12:14 PM) 98 % (09/21/22 7:44 AM) Pulse Rate [55-90 bpm] 87 bpm (09/21/22 3:10 PM) 81 bpm (09/21/22 12:14 PM) 87 bpm (09/21/22 7:44 AM) Blood Pressure [90-138/55-84 mm Hg] 135/81mm Hg (09/21/22 3:10 PM) 113/87mm Hg (09/21/22 12:14 PM) 98/70mm Hg (09/21/22 10:06 AM) 98/70mm Hg (09/21/22 10:06 AM) Respiratory Rate [16-30 br/min] 18 br/min (09/21/22 3:10 PM) 18 br/min (09/21/22 2:23 PM) 18 br/min (09/21/22 12:14 PM) Temperature [96.8-100.4 DegF] 98.3 DegF (09/21/22 3:10 PM) 97.8 DegF (09/21/22 12:14 PM) 98.4 DegF (09/21/22 7:44 AM) Mode of Delivery (Oxygen) Room air (09/21/22 3:10 PM) Room air (09/21/22 12:14 PM) Room air (09/21/22 7:44 AM) Blood pressure sites Arm, left (09/21/22 3:10 PM) Arm, left (09/21/22 12:14 PM) Arm, left (09/21/22 7:44 AM) Temperature Route Oral (09/21/22 3:10 PM) Oral (09/21/22 12:14 PM) Oral (09/21/22 7:44 AM) Social History Social History Type Response Smoking Status Use: 4 or less cigar ettes(less than 1/4 pack)/day in last 30 days;10 or more cigarettes (1/2 pack or more)/day in last 30 days; Other: Quit 1 week ago, USing the gum; entered on: 05/02/22 Sex Admission evaluation note * Cintia Oviedo MD: PERFORM, MODIFY Event Display: Admission Note Authored Date: [id number] Patient: ??ROC QUIÑONEZ ? Age:??47 Years?Sex:??Female?:??1975?? Chief Complaint/Reason for Consultation ??Chest pain History of Present Illness Roc Quiñonez is a 47-year-old female patient with history of COPD, tobacco use disorder, insulin-dependent diabetes mellitus???intermittent noncompliance with insulin regimen, hypertension, hyperlipidemia who presents to [facility] for evaluation of upper abdominal/chest discomfort.?? Patient says that on and off she has had chest discomfort for quite some time but yesterday around 5 PM while she was at rest at home she had sudden onset chest discomfort which was a combination of sharp pain, burning, pressure and was radiating to the neck.?? She also has epigastric discomfort.?? She also reports being anxious.?? Patient had very minimal discomfort when she was admitted to hospital service by ER providers but she went to the bathroom and when she came back she had 10/10 chest discomfort with some difficulty breathing.?? She does not have any personal history of CAD.?? On further interrogation, she states that her pain gets worse on palpation as well.?? Denies any fever.?? Denies any recent travel.?? Denies any recent surgery or immobilization.?? No personal or family history of PE or DVT.?? She is alert and oriented x4.?? Answering questions appropriately.?? She wasgiven a dose of sublingual nitro and her pain went down to 3/10 immediately but it came back and requiring second dose of nitro and was put on Nitropaste.?? She subsequently received 1 mg of IV Ativan and was given a dose of Maalox and Protonix and became significantly comfortable afterwards and denies any pain at the moment.?? Her PCP is outside [facility].?? She does have chronic lower abdominal discomfort from history of incisional hernia.?? Denies any diarrhea.?? Denies any urinary symptoms.?? She has history of COPD but does not use any home oxygen.?? Patient wants to be full code. ?? In the emergency room, noted to be afebrile, initial heart rate 113, most recent heart rate 88, most recent blood pressure 144/92, maintaining saturation of high 90s on room air.?? On review of labs, noted a white count of 12.1, hemoglobin 13.0, platelets 232, D-dimer 1.03, INR 1.0, PTT 24.6, sodium 137, potassium 4.2, glucose 331, creatinine 0.7, AST 38, ALT 36, alk phos 112, otherwise LFTs unremarkable, troponins???11, 30, 24 and 41, cholesterol 250, triglycerides 578, HDL cholesterol 24, glucose of 110, non-HDL cholesterol 226, COVID-19 POC result is negative.?? Chest x-ray did not haveany acute abnormality.?? Patient underwent right upper quadrant sono which showed echogenic enlarged liver suggestive of hepatic steatosis but otherwise unremarkable exam.?? Initial EKG could not be found in the chart and not in [facility].?? EKG was repeated when there was 10/10 chest pain which did not show any acute ST changes.?? Did show normal sinus rhythm.?? Review of Systems General ROS:??negative for chills or fever, noted fatigue, no night sweats, no unexpained weight loss or weight gain Psychological ROS:??Positive for anxiety but not depressive symptoms, no suicidal thoughts, appropriate insight into situation, mood appears appropriate for situation ENT ROS:??negative for nasal congestion, no sinus drainage, no nosebleeding, no sore throat, no dysphagia, no ear pain Hematological and Lymphatic ROS:??negative for bleeding problems, no history of blood clots, no recent increase in bruising, no noted swollen lymph nodes Endocrine ROS:??negative for polyuria/polydipsia?? Respiratory ROS:??Positive for cough, positive shortness of breath, no wheezing Cardiovascular ROS:??Positive for chest pain, ??No dyspnea on exertion, ??No edema, no palpitations, no history of loss of consciousness, no orthopnea, no paroxysmal nocturnal dyspnea?? Gastrointestinal ROS:??negative for reflux,??positive for upper and lower abdominal pain, no black or bloody stools- also no history of constipation, diarrhea, heartburn or hematemesis Genito-Urinary ROS:??no dysuria, no trouble voiding, or hematuria Musculoskeletal ROS:??negative for worsening ongoing back pain, no worsening or chronic neck pain, no new or worsening joint pain, no calf swelling Neurological ROS:??no symptoms of confusion, no dizziness, no gait disturbance, no impaired coordination/balance, no memory loss, no history of seizures, no history of speech problems, no tremors , no visual changes. Objective ? Vital Signs?? Temperature: 98.2 DegF (09/20/22 19:57:00) Temperature Route: Oral (09/20/22 19:57:00) Pulse Rate: 88 bpm (09/20/22 23:50:00) Respiratory Rate: 18 br/min (09/20/22 23:50:00) Systolic Blood Pressure:??144 mm Hg??High (09/21/22 00:59:00) Diastolic Blood Pressure:??92 mm Hg??High (09/21/22 00:59:00) Blood pressure sites: Arm, left (09/20/22 23:50:00) Mean Arterial Pressure: 106 mm Hg (09/20/22 17:51:00) Pulse Pressure: 61 mm Hg (09/20/22 23:50:00) Oxygen Saturation: 100 % (09/20/22 23:50:00) Mode of Delivery (Oxygen): Room air (09/20/22 23:50:00) Early Warning Score: 1 (09/21/22 02:20:14) ? Pain Scores 1 - 10 Pain Scale Score: 8 (17:50) ? Intake/Output? No Data Available ? [place] Coma Scale Fabi Coma Score: 15 (09/20/22 17:50:00) Motor Response-Adult: Obeys commands (09/20/22 17:50:00) Response Eye Opening: Spontaneously (09/20/22 17:50:00) Verbal Response-Adult: Oriented and converses (09/20/22 17:50:00) ? Basic ADLs Ambulatory devices needed: None (09/20/22) ? Physical Exam ?? General appearance- alert, cooperative, no distress, appears stated age, oriented to time, placeand person,??anxious appearing Head- Normocephalic, without obvious abnormality, atraumatic Eyes-conjunctivae/corneas clear. PERRL, EOM's intact. Nose- Nares normal. Septum midline. Mucosa normal. No drainage or sinus tenderness. Throat-Lips, mucosa, and tongue normal. Neck- supple, symmetrical, trachea midline, no adenopathy, thyroid: not enlarged, symmetric, no tenderness/mass/nodules, no carotid bruit and no JVD Back- symmetric, no curvature. No CVA tenderness Lungs-??clear to auscultation bilaterally Chest wall-tenderness to mid chest???reproducible on palpation, no skin rash or lesions or bruising, no crepitance Heart- regular rate and rhythm, S1, S2 normal, no click, rub or gallop Abdomen-??soft,??reproducible tenderness to palpation in epigastric area??and lower abdominal area without any rebound or guarding or peritoneal signs. Bowel sounds normal. No masses,?? No organomegaly Extremities- extremities normal, atraumatic, no cyanosis or edema, warm and well perfused. Muscle tone is normal and equal bilaterally Pulses- 2+ and symmetric on dorsal pedal pulses, posterior tibial pulses, radial pulses Skin- Skin color, texture, turgor normal. No rashes or lesions Neurologic- Normal, nonfocal, no focal weakness Assessment/Plan ?? Chest pain??with elevated troponins???concern for unstable angina versus NSTEMI Patient's symptoms??seem to be??multifactorial. ??She does appear anxious.?? She does have improvement in chest discomfort with sublingual nitro and worsening on exertion. ??There is also component of reproducibility and she does have positive D-dimer.?? Multiple risk factors include???female gender, family history???unsure??if premature,??diabetes, hypertension, hyperlipidemia??and tobacco use disorder. 2 inch Nitropaste applied, status post sublingual nitro x2 Morphine as needed for pain Ativan 1 mg??IV x1 ordered Trend troponins Patient was started on heparin drip??given concern for ACS.?Her??Case??was subsequently discussed with gluer and wedger.?? Agrees with continuation of heparin drip and will decide??on??provocative testing with stress test versus cardiac cath??upon consultation.?? Patient verbalized understanding of risk versus benefits of heparin drip.?? Bleeding precautions. ??To be titrated using institutional heparin??protocol??for ACS. Protonix and Maalox ordered Check hemoglobin A1c, lipid profile, magnesium and phosphorus Status post aspirin 325, continue aspirin 81 daily Check echo ?? Hyperlipidemia Continue high intensity statin ?? Hypertension Continue amlodipine??5??and lisinopril 2.5 Needs further confirmation of meds from pharmacy Monitor blood pressure closely ?? Type 2 diabetes, noncompliance Patient reports intermittent compliance with her home insulin. ??Supposed to be on Lantus 60 units nightly. ??We will start on Lantus??30 units nightly and start on insulin sliding scale medium dose every 4 hours Checking hemoglobin A1c ?? COPD, not in exacerbation DuoNebs as needed ordered Continue Breo ?? Positive D-dimer Check lower extremity duplex and VQ scan ?? Tobacco use disorder Counseled against smoking ?? DVT prophylaxis???on heparin drip ?? CODE STATUS???full code ?? Diet???n.p.o. till cardiology eval ?? Cintia Oviedo MD [facility] Date-September 21, 2022. ??Patient seen at??12:40 AM ?? IMPORTANT: This document was created by voice recognition software. A conscious effort has been made to improve accuracy of the edger machine setter. Any obvious errors or omissions should be clarified with the authorof this document. Histories Allergies Allergies ?(Active and Proposed Allergies Only) Omnipaque 350? (Severity: Unknown severity, Onset: Unknown) ?Reactions: Anaphelaxis Adhesive Bandage? (Severity: Unknown severity, Onset: Unknown) ?Reactions: rash Latex? (Severity: Unknown severity, Onset: Unknown) ?Reactions: rash ? Past Medical History/Problem List Active Problems??(9) Cervical mass DM2 (diabetes mellitus, type 2) Dyslipidemia Hirsutism Hx of abscess of breast Hypertension Obese class II Obesity Vitamin D deficiency ? Past Surgical History section Umbilical hernia repair Ankle Surgery ? Social History Alcohol Details:??Use: Never. Employment/School Details:??Status: Disabled. Details:??Status: Employed. ??Other: worked as a [employer]. Exercise Details:??Self assessment: Poor condition. Home/Environment Details:??Living situation: Home/Independent. Nutrition/Health Details:??Diet: Regular. Sexual Details:??Sexually involved in last 6 months: Yes. Substance Abuse Details:??Use: Past. ??Type: Marijuana. Tobacco Details:??Use: 4 or less cigarettes(less than 1/4 pack)/day in last 30 days, 10 or more cigarettes (1/2 pack or more)/day in last 30 days. ??Other: Quit 1 week ago, USing the gum. ? Psychosocial History ? Family History Mother: Diabetes mellitus Father: Cancer of oral cavity; Cirrhosis of liver Other (Paternal Uncle): Cancer of stomach ? Travel History Travel Outside [facility] of [place]: No ?? Medications Home Medications Acetaminophen (acetaminophen 325 mg oral tablet)?975?Milligram?3?tablet?By Mouth?Every 6 hours?as needed?Pain , Mild Acetaminophen/Codeine (Tylenol with Codeine #4)?1?tab(s)?By Mouth?Every 6 hours Atorvastatin (atorvastatin 40 mg oral tablet)?2?tab(s)?80?Milligram?By Mouth?Daily in AM Barium Sulfate (Readi-Cat 2 oral suspension)?See Instructions?Readi-cat 22 ??bottle 450 mLDx: Durable Medical Equipment (10cm medipore tape)?See Instructions?use as needed for daily dressing changes. 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 Durable Medical Equipment (15cm Q tip applicators)?See Instructions?use as needed for daily dressing changes. 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 Durable Medical Equipment (super sponges)?See Instructions?use as needed for daily dressing changes. 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 Durable Medical Equipment (suture removal kits)?See Instructions?use as needed for daily dressing changes. 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 Durable Medical Equipment (4 x 4 super sponge)?See Instructions?use 1 super sponge. Lightly pack abdomen wound daily. cover with sponge. 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 Durable Medical Equipment (3 inch medipore tape)?See Instructions?use with daily packing. 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 Durable Medical Equipment (ABDOMINAL BINDER)?See Instructions?DIAGNOSIS: ??VENTRAL HERNIAPlease custom fit patient for abdominal binder Fluticasone-Salmeterol (Advair Diskus 250 mcg-50 mcg inhalation powder)?1?inhalation?Inhalation?Daily?rinse mouth and throat after use Insulin Glargine (Lantus Solostar Pen 100 units/mL subcutaneous solution)?30?unit(s)?Subcutaneous Injection?Daily at bedtime Lisinopril (lisinopril 2.5 mg oral tablet)?2.5?Milligram?1?tablet?By Mouth?Daily Miscellaneous Rx (Misc Rx)?50,0000 units?Oral?Daily?vitamin d3 Nicotine (Nicorette 2 mg oral transmucosal gum)?1?Each?2?Milligram?Chew?Every 2 hours?as needed?as needed for smoking cessation Oxycodone (oxyCODONE 5 mg oral tablet)?5?Milligram?1?tablet?By Mouth?Every 6 hours?as needed?as needed for pain PEG Electrolyte Solution (MiraLax)?17?gram?By Mouth?Daily ? Results Recent Labs BLOOD COUNT & DIFF WBC 13.3 k/mm3 (High)?? 09/21/2022 01:07 RBC 4.64 m/mm3 ()?? 09/21/2022 01:07 Hgb 12.4 Gm/dL ()?? 09/21/2022 01:07 Hct 37.1 % ()?? 09/21/2022 01:07 MCV 80.0 femtoliters ()?? 09/21/2022 01:07 MCH 26.7 pg (Low)?? 09/21/2022 01:07 MCHC 33.4 g/dL ()?? 09/21/2022 01:07 Platelet Count 238 k/mm3 ()?? 09/21/2022 01:07 RDW-SD 42.4 femtoliters ()?? 09/21/2022 01:07 MPV 12.3 femtoliters ()?? 09/21/2022 01:07 Nucleated RBC (Automated) 0.0 #/100 WBC'S ()?? 09/21/2022 01:07 Abs. NRBC 0.0 k/mm3 ()?? 09/21/2022 01:07 Abs. Neut 8.2 k/mm3 (High)?? 09/20/2022 18:16 Abs. Lymph 3.1 k/mm3 ()?? 09/20/2022 18:16 Abs. Steuben 0.4 k/mm3 ()?? 09/20/2022 18:16 Abs. Eo 0.2 k/mm3 ()?? 09/20/2022 18:16 Abs. Baso 0.1 k/mm3 ()?? 09/20/2022 18:16 Neut % 68.0 % ()?? 09/20/2022 18:16 Lymph % 25.6 % ()?? 09/20/2022 18:16 Steuben % 3.3 % (Low)?? 09/20/2022 18:16 Eos % 2.0 % ()?? 09/20/2022 18:16 Baso % 0.5 % ()?? 09/20/2022 18:16 Imm Gran 0.6 % ()?? 09/20/2022 18:16 Abs. Imm Gran 0.1 k/mm3 ()?? 09/20/2022 18:16 ?? CARDIAC High Sensitivity Troponin (HSTnT) 41 ng/L (High)?? 09/21/2022 01:07 ?? CHEM GENERAL Sodium 135 mmol/L ()?? 09/21/2022 01:07 Potassium 4.1 mmol/L ()?? 09/21/2022 01:07 Chloride 101 mmol/L ()?? 09/21/2022 01:07 Bicarbonate Level 25 mmol/L ()?? 09/21/2022 01:07 Anion Gap 9 ()?? 09/21/2022 01:07 Glucose Level 349 mg/dL (High)?? 09/21/2022 01:07 Glucose, POC 395 mg/dL (High)?? 09/20/2022 18:13 Beta Hydroxybutyrate 0.05 mmol/L ()?? 09/20/2022 18:53 BUN 9 mg/dL ()?? 09/21/2022 01:07 Creatinine-Blood 0.6 mg/dL ()?? 09/21/2022 01:07 Estimated GFR Creatinine 112 ML/MIN/1.73 M2 ()?? 09/21/2022 01:07 Calcium 9.4 mg/dL ()?? 09/21/2022 01:07 Phosphorus 3.5 mg/dL ()?? 09/21/2022 01:07 Magnesium 2.0 mg/dL ()?? 09/21/2022 01:07 Protein, Total 6.8 Gm/dL ()?? 09/21/2022 01:07 Albumin 3.6 Gm/dL ()?? 09/21/2022 01:07 AG Ratio 1.1 ()?? 09/21/2022 01:07 Alkaline Phosphatase 104 units/L ()?? 09/21/2022 01:07 Lipase 46 units/L ()?? 09/20/2022 21:12 AST (SGOT) 27 units/L ()?? 09/21/2022 01:07 ALT (SGPT) 35 units/L (High)?? 09/21/2022 01:07 Bilirubin, Total 0.3 mg/dL ()?? 09/21/2022 01:07 Bilirubin, Direct <0.2 mg/dL ()?? 09/20/2022 18:53 Bilirubin, Indirect Direct bilirubin is less than the measureable limit. Therefore, indirect mg/dL ()?? 09/20/2022 18:53 ?? COAG INR 1.0 ()?? 09/21/2022 01:07 Protime (PT) 10.2 seconds ()?? 09/21/2022 01:07 APTT 24.6 seconds ()?? 09/21/2022 01:07 D-Dimer 1.03 mg/L FEU (High)?? 09/20/2022 18:16 ?? HEME OTHER Hold Lavender Top SPECIMEN DISCARDED AFTER 24 HOURS. ()?? 09/20/2022 18:53 Hold Blue Top SPECIMEN DISCARDED AFTER 4 HOURS. ()?? 09/20/2022 18:16 ?? LIPID STUDIES Cholesterol 250 mg/dL (High)?? 09/21/2022 01:07 Triglycerides 578 mg/dL (High)?? 09/21/2022 01:07 HDL Cholesterol 24 mg/dL (Low)?? 09/21/2022 01:07 LDL Cholesterol 110 mg/dL ()?? 09/21/2022 01:07 Non HDL Cholesterol 226 mg/dL (High)?? 09/21/2022 01:07 ?? VIROLOGY COVID-19 POC Result NEGATIVE ()?? 09/20/2022 17:57 ? Abnormal Labs ?? BLOOD COUNT & DIFF ??Abs. Imm Gran ??0.1 k/mm3 () ??09/20/2022 18:16 ??Abs. NRBC ??0.0 k/mm3 () ??09/21/2022 01:07 ??Abs. Neut ??8.2 k/mm3 (High) ??09/20/2022 18:16 ??Imm Gran ??0.6 % () ??09/20/2022 18:16 ??MCH ??26.7 pg (Low) ??09/21/2022 01:07 ??[place] % ??3.3 % (Low) ??09/20/2022 18:16 ??Nucleated RBC (Automated) ??0.0 #/100 WBC'S () ??09/21/2022 01:07 ??RDW-SD ??42.4 femtoliters () ??09/21/2022 01:07 ??WBC ??13.3 k/mm3 (High) ??09/21/2022 01:07 ? CARDIAC ??High Sensitivity Troponin (HSTnT) ??41 ng/L (High) ??09/21/2022 01:07 ? CHEM GENERAL ??AG Ratio ??1.1 () ??09/21/2022 01:07 ??ALT (SGPT) ??35 units/L (High) ??09/21/2022 01:07 ??Estimated GFR Creatinine ??112 ML/MIN/1.73 M2 () ??09/21/2022 01:07 ??Glucose Level ??349 mg/dL (High) ??09/21/2022 01:07 ??Glucose, POC ??395 mg/dL (High) ??09/20/2022 18:13 ? COAG ??D-Dimer ??1.03 mg/L FEU (High) ??09/20/2022 18:16 ? HEME OTHER ??Hold Blue Top ??SPECIMEN DISCARDED AFTER 4 HOURS. () ??09/20/2022 18:16 ??Hold Lavender Top ??SPECIMEN DISCARDED AFTER 24 HOURS. () ??09/20/2022 18:53 ? LIPID STUDIES ??Cholesterol ??250 mg/dL (High) ??09/21/2022 01:07 ??HDL Cholesterol ??24 mg/dL (Low) ??09/21/2022 01:07 ??Non HDL Cholesterol ??226 mg/dL (High) ??09/21/2022 01:07 ??Triglycerides ??578 mg/dL (High) ??09/21/2022 01:07 ? VIROLOGY ??COVID-19 POC Result ??NEGATIVE () ??09/20/2022 17:57 ? Note: Critical results are displayed in red. ? Blood Glucose Trend Glucose Level:??349 mg/dL??High (09/21/22 01:07:00) Glucose Level:??331 mg/dL??High (09/20/22 18:53:00) Glucose, POC:??395 mg/dL??High (02/28/23 18:13:00) ? CBC, CBC w/Diff?? CBC?? Differential?? WBC:??13.3 k/mm3??High (:) Abs. Neut:??8.2 k/mm3??High (18:16) RBC: 4.64 m/mm3 (:) Abs. Lymph: 3.1 k/mm3 (18:16) Hct: 37.1 % (:) Abs. Steuben: 0.4 k/mm3 (18:16) RDW-SD: 42.4 femtoliters (:) Abs. Eo: 0.2 k/mm3 (18:16) Nucleated RBC (Automated): 0 #/100 WBC'S (:) Abs. Baso: 0.1 k/mm3 (18:16) Abs. NRBC: 0 k/mm3 (:) Neut %: 68 % (18:16) ?? Lymph %: 25.6 % (18:16) ?? Steuben %:??3.3 %??Low (18:16) ?? Eos %: 2 % (18:16) ?? Baso %: 0.5 % (18:16) ?? Imm Gran: 0.6 % (18:16) ?? Abs. Imm Gran: 0.1 k/mm3 (18:16) ? BMP, Mg, and Phos Anion Gap: 9 (:) Bicarbonate Level: 25 mmol/L (:) BUN: 9 mg/dL (:) Calcium: 9.4 mg/dL (:) Chloride: 101 mmol/L (:) Creatinine-Blood: 0.6 mg/dL (:) Estimated GFR Creatinine: 112 ML/MIN/1.73 M2 (:) Glucose Level:??349 mg/dL??High (:) Magnesium: 2 mg/dL (:) Phosphorus: 3.5 mg/dL (:) Potassium: 4.1 mmol/L (:) Sodium: 135 mmol/L (:) ?? Coagulation Profile APTT: 24.6 seconds (:) D-Dimer:??1.03 mg/L FEU??High (18:16) INR: 1 (:) Protime (PT): 10.2 seconds (:) ?? LFT Albumin: 3.6 Gm/dL (:) Alkaline Phosphatase: 104 units/L () ALT (SGPT):??35 units/L??High () AST (SGOT): 27 units/L () Bilirubin, Direct: <0.2 (18:53) Bilirubin, Indirect: Direct bilirubin is less than the measureable limit. Therefore, indirect (18:53) Bilirubin, Total: 0.3 mg/dL () Protime (PT): 10.2 seconds (:) ?? Urinalysis?? No qualifying data available. ? Cardiology Labs High Sensitivity Troponin (HSTnT):??41 ng/L??High (09/21/22 01:07:00) High Sensitivity Troponin (HSTnT):??24 ng/L??High (09/21/22 00:05:00) High Sensitivity Troponin (HSTnT):??30 ng/L??High (09/20/22 21:12:00) Lipids: Cholesterol:??250 mg/dL??High (09/21/22 01:07:00) Triglycerides:??578 mg/dL??High (09/21/22 01:07:00) HDL Cholesterol:??24 mg/dL??Low (09/21/22 01:07:00) LDL Cholesterol: 110 mg/dL (09/21/22 01:07:00) Non HDL Cholesterol:??226 mg/dL??High (09/21/22 01:07:00) ?? Blood Gases?? No qualifying data available. ?? Uric/LDH?? No qualifying data available. ? EKG study * Event Display: ECG 12-Lead Authored Date: Please click on pdf link to open report * Event Display: ECG 12-Lead Authored Date: Ventricular Rate: 76 BPM Atrial Rate: 76 BPM P-R Interval: 128 ms QRS Duration: 74 ms Q-T Interval: 410 ms QTC Calculation(Bazett): 461 ms P Brockwell: 53 degrees R Brockwell: 33 degrees T Brockwell: 25 degrees Normal sinus rhythm Normal ECG When compared with ECG of 21-SEP-2022 00:34, MANUAL COMPARISON REQUIRED, DATA IS UNCONFIRMED Confirmed by CHAPO PONCE MD () on 09/21/2022 2:27:14 PM [place]: CHAPO PONCE MD * Event Display: ECG 12-Lead Authored Date: [id number] Please click on pdf link to open report * Event Display: ECG 12-Lead Authored Date: [id number] Ventricular Rate: 88 BPM Atrial Rate: 88 BPM P-R Interval: 130 ms QRS Duration: 72 ms Q-T Interval: 380 ms QTC Calculation(Bazett): 459 ms P Brockwell: 54 degrees R Brockwell: 45 degrees T Brockwell: 46 degrees Normal sinus rhythm Cannot rule out Anterior infarct , age undetermined Abnormal ECG When compared with ECG of 20-SEP-2022 17:58, MANUAL COMPARISON REQUIRED, DATA IS UNCONFIRMED Confirmed by CHAPO PONCE MD () on 09/21/2022 2:27:11 PM [place]: CHAPO PONCE MD * Event Display: ECG 12-Lead Authored Date: [id number] Please click on pdf link to open report * Event Display: ECG 12-Lead Authored Date: [id number] Ventricular Rate: 99 BPM Atrial Rate: 99 BPM P-R Interval: 128 ms QRS Duration: 70 ms Q-T Interval: 354 ms QTC Calculation(Bazett): 454 ms P Brockwell: 54 degrees R Brockwell: 37 degrees T Brockwell: 57 degrees Normal sinus rhythm Normal ECG When compared with ECG of 16-JUL-2021 12:06, Nonspecific T wave abnormality no longer evident in Anterolateral leads Confirmed by CHAPO PONCE MD () on 09/21/2022 2:27:08 PM [place]: CHAPO PONCE MD US Heart * Event Display: Echocardiogram - Complete Authored Date: [id number] Transthoracic Echocardiography Report (TTE) Patient Demographics Patient Name ROC QUIÑONEZ Date of Study 09/21/2022 Corporate Gender Female Facility Race Ethnicity or Date of 1975 Height: 64.96 inches Age 47 year(s) Weight: 216.05 pounds Accession Number [id number] BSA: 2.04 m2 Room Number D320 BMI: 36 kg/m2 Referring Physician Ivelisse Pompa MD Physician Practice Business Asst Manuel Saini Indications Chest pain. Clinical History Hypertension. Diabetes type 2 Tobacco use. COPD Dyslipidemia. DVT HLD OBESE Study Data Type of Study TTE procedure:Echo Complete-Doppler, Colorflow, M-Mode. Study Date09/21/2022 Start Time: 09:26 AM Study Location: [facility] Adult Echo Study Status: Bedside Patient Status: Routine Technical Quality: Adequate Blood Pressure:98/70 mmHg EKG: Within normal limits HR: 74 bpm 2D Measurements LV Diastolic Dimension: 4.2 cm LV Systolic Dimension: 3 cm LV Septum Diastolic: 0.9 cm LV PW Diastolic: 0.9 cm AO Root Dimension: 2.8 cm LA ESV (BP):45.16 ml LVOT Stroke Volume: 38.94 ml LA ESV Index: 22 ml/m2 Stroke Volume Index19.09 ml/m2 LVOT: 2 cm Cardiac Index:1.41 l/min/m2 Ascending Aorta:2.5 cm Doppler Measurements AV Peak Velocity: 133 cm/s MV Peak E-Wave: 83.2 cm/s AV Peak Gradient: 7.08 mmHg MV Peak A-Wave: 113 cm/s AV Mean Gradient: 4 mmHg MV E/A Ratio: 0.74 AV VTI:26.3 cm LVOT Peak Velocity: 70.6 cm/s LVOT VTI12.4 cm MV Deceleration Time: 164 msec AV Area (Continuity):1.48 cm2 PV Peak Velocity: 83.7 cm/s PV Peak Gradient: 2.8 mmHg E' Septal Velocity: 5.98 cm/s E' Lateral Velocity: 9.68 cm/s E/Med E':13.32603 E/Lat E':8.784421 Cardiac Anatomy Left Ventricle/Interventricular Septum The left ventricular size is normal. Left ventricular wall thickness is normal. The LV systolic function is normal . There are no regional wall motion abnormalities. There is no doppler evidence of increased filling pressures. Left Atrium/Interatrial Septum The left atrium is normal in size. Aortic Valve The aortic valve is probably trileaflet . The aortic valve appears mildly calcified. There is no aortic stenosis. There is no aortic regurgitation. Mitral Valve The mitral valve opening is normal. There is trivial mitral regurgitation. Aorta The ascending aorta and aortic root are normal in size. Right Ventricle The right ventricle is normal in size and function. Right Atrium The right atrium is normal in size. Pulmonic Valve The pulmonic valve appears grossly normal. Tricuspid Valve The tricuspid valve is grossly normal. There is no significant tricuspid valve regurgitation. Pumonary Artery An accurate pulmonary artery pressure could not be obtained. Venous Structures The inferior vena cava is poorly visualized. Pericardium/Extracardiac There is no significant pericardial effusion. Summary The left ventricular size is normal. Left ventricular wall thickness is normal. The LV systolic function is normal . There are no regional wall motion abnormalities. There is no doppler evidence of increased filling pressures. The aortic valve is probably trileaflet . The aortic valve appears mildly calcified. There is no aortic stenosis. There is no aortic regurgitation. The right ventricle is normal in size and function. Comparison No prior study available for comparison. Signature Note * Event Display: Cardiac Rhythm Strips Authored Date: [id number] * Francy Nava LPN: PERFORM Event Display: Discharge/Transfer Note Hospital Authored Date: [id number] Nursing Discharge Note Entered On: 09/21/2022 18:58 EST Performed On: 09/21/2022 16:45 EST by Francy Nava LPN Nursing Discharge Note 2 Discharge Time : 09/21/2022 14:45 EST Discharge Level of Care at Discharge : Home/Detention/Foster Care Patient Left Unit Via : Wheelchair Patient Accompanied Off Unit with : Responsible adult DC Instructions Provided & Signed by Pt : Yes Patient Understands D/C Instructions : Yes Patient Instructions Discharge Signed : Yes Did Pt have Specialty Bed or Wound Vac : No Elijah SALESIvethth - 09/21/2022 18:57 EST * Tre Miguel MD: PERFORM Event Display: Discharge/Transfer Note Hospital Authored Date: [id number] Patient: ??ROC QUIÑONEZ ? Age:??47 Years?Sex:??Female?:??1975?? Patient Information Discharge Location: [facility] Primary Care Physician: Cruz Farooq Admit Date/Time: 09/20/22 17:35 Discharge Disposition Discharge Disposition: Home: No Services Discharge Diagnosis Chest pain Elevated troponin Hyperlipidemia Hypertension COPD Diabetes mellitus type 2 Tobacco use disorder Positive D-dimer _ Discharge Medications Acetaminophen (acetaminophen 325 mg oral tablet)?975?Milligram?3?tablet?By Mouth?Every 6 hours?as needed?Pain , Mild Acetaminophen/Codeine (Tylenol with Codeine #4)?1?tab(s)?By Mouth?Every 6 hours Amlodipine (amLODIPine 5 mg oral tablet)?1?tab(s)?5?Milligram?By Mouth?Daily Aspirin (aspirin 81 mg oral delayed release tablet)?81?Milligram?1?tablet?By Mouth?Daily Atorvastatin (atorvastatin 40 mg oral tablet)?2?tab(s)?80?Milligram?By Mouth?Daily in AM Durable Medical Equipment (10cm medipore tape)?See Instructions?use as needed for daily dressing changes. 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 Durable Medical Equipment (15cm Q tip applicators)?See Instructions?use as needed for daily dressing changes. 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 Durable Medical Equipment (super sponges)?See Instructions?use as needed for daily dressing changes. 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 Durable Medical Equipment (suture removal kits)?See Instructions?use as needed for daily dressing changes. 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 Durable Medical Equipment (4 x 4 super sponge)?See Instructions?use 1 super sponge. Lightly pack abdomen wound daily. cover with sponge. 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 Durable Medical Equipment (3 inch medipore tape)?See Instructions?use with daily packing. 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 Durable Medical Equipment (ABDOMINAL BINDER)?See Instructions?DIAGNOSIS: ??VENTRAL HERNIAPlease custom fit patient for abdominal binder Fenofibrate (fenofibrate 145 mg oral tablet)?1?tab(s)?145?Milligram?By Mouth?Daily Fluticasone-Salmeterol (Advair Diskus 250 mcg-50 mcg inhalation powder)?1?inhalation?Inhalation?Daily?rinse mouth and throat after use GlipiZIDE (glipiZIDE 5 mg oral tablet)?5?Milligram?1?tablet?By Mouth?Daily Insulin Glargine (Lantus Solostar Pen 100 units/mL subcutaneous solution)?INJECT 47 UNIT (0.47 ML) SUBCUTANEOUSLY EVERY EVENING FOR 30 DAYS Lisinopril (lisinopril 2.5 mg oral tablet)?2.5?Milligram?1?tablet?By Mouth?Daily Miscellaneous Rx (Misc Rx)?50,0000 units?Oral?Daily?vitamin d3 Nicotine (Nicorette 2 mg oral transmucosal gum)?1?Each?2?Milligram?Chew?Every 2 hours?as needed?as needed for smoking cessation Oxycodone (oxyCODONE 5 mg oral tablet)?5?Milligram?1?tablet?By Mouth?Every 6 hours?as needed?as needed for pain ? Medications Started Fenofibrate Medications Discontinued None Doses Changed None Allergies Allergies ?(Active and Proposed Allergies Only) Contrast Dye? (Severity: Unknown severity, Onset: Unknown) Omnipaque 350? (Severity: Unknown severity, Onset: Unknown) ?Reactions: Anaphelaxis Adhesive Bandage? (Severity: Unknown severity, Onset: Unknown) ?Reactions: rash Latex? (Severity: Unknown severity, Onset: Unknown) ?Reactions: rash ? PCP Follow-Up/Heads-Up Patient presented to [facility] with chest pain, no acute ischemic changes on ECG, pain was reproducible. She had elevated troponin which was non-evolutionary, cardiology consulted. She will require follow up with cardiology in outpatient setting. In addition, she reports non-compliance to insulin, her A1c is 9.8% will require adherence and optimization of her anti-hyperglycemic regimen. Future Appointments Monday. 2022 9:30 AM EDT ?? With: Regan MCKEON, Caty Perez Where: [facility] General Surgery [address] [place] [address] Drive [address] [place] [address]- Monday. 2022 11:20 AM EDT ?? With: Funmi MCKEON, Yaya Becerril Where: [facility] Plastic Surgery [address] [place] [id number]- Hospital Course Roc is a 47-year-old woman with medical history of COPD, tobacco use disorder, insulin-dependent diabetes mellitus, hypertension, hyperlipidemia who presented to the emergency department for upper abdominal pain/chest pain. She was given sublingual nitroglycerin which provided relief and subsequently Nitropaste was applied. Her high-sensitivity troponin was initially 11 but had a positive delta change to 30. ECG with no acute ischemic changes. Chest pain was reproducible with palpation of chest wall. At that time cardiology was consulted, she was loaded with aspirin 324 mg and heparin drip was initiated per ACS protocol. Decided to pursue a noninvasive evaluation with possible CTA of coronary arteries. Additionally, she had a positive D-dimer and when discussions took place about the possibility of doing a CTA of the chest to evaluate for PE and for coronary artery disease she stated that she had had a previous episode of anaphylaxis during CT imaging secondary to allergy to iodinated contrast. The patient was informed that premedication with corticosteroids and antihistamines can make this evaluation safe even in patients with contrast allergies multiple times but she continued to refuse such studies. It was decided to obtain an echocardiogram which showed a normal left ventricular systolic function and no regional wall motion abnormalities were noticed. She underwent Doppler ultrasounds of bilateral lower extremities with no evidence of DVT. Although she had a positiveD-dimer it was thought that a pulmonary embolism was very unlikely. Heparin drip was stopped. The patient has been hemodynamically stable and has not required oxygen supplementation. ?? Chest pain Elevated troponin Hyperlipidemia Hypertension ECG with no acute ischemic changes.??Mildly elevation of high-sensitivity troponin which was non-evolutionary. Normal echocardiogram. Patient seen and evaluated by cardiology. Refused further cardiactesting including CTA coronary. ?? Recommendations: - Continue aspirin 81 daily -??Continue high intensity statin - Continue amlodipine 5 mg and lisinopril 2.5 mg - Will start patient on fenofibrate 145 mg daily, triglycerides were above 500 mg/dL. - Advised to??monitor blood pressure regularly - Follow up with PCP within 1-2 weeks. - Follow up with cardiology in outpatient setting. ?? Type 2 diabetes, uncontrolled ??Patient reports intermittent compliance with her home insulin.??Anti- hyperglycemic regimen consist of Lantus and glipizide. Hgb A1c is 9.8%. ?? Recommendations: -Follow-up with PCP for optimization of anti-hyperglycemic regimen. -Encouraged adherence to her medications. ?? COPD - Continue home regimen. ?? Positive D-dimer Negative bilateral US Doppler of lower extremities. Patient refused to undergo CTA of the chest dueto contrast allergy, she was educated about pretreatment with steroids and antihistamines but she still refused such study multiple times. Although, PE was unlikely. She was on heparin drip. ?? Tobacco use disorder Counseled against smoking ?? Objective Temperature?98.3 ?(15:10) Systolic Blood Pressure?135 ?(15:10) Diastolic Blood Pressure?81 ?(15:10) Pulse?87 ?(15:10) SpO2?99 ?(15:10) Respiratory Rate?18 ?(15:10) ?? . Physical Exam Constitutional:??47 year old female??in no acute??distress. Mental Status: Oriented to person, place and time. Head: Atraumatic/Normocephalic. Eyes: Pupils are equal, round and reactive to light. Extraocular muscles intact. Neck: Supple, Full range of motion. Respiratory: Clear to auscultation. No wheezing, rales or rhonchi. Cardiovascular: S1 S2 regular. No murmurs, rubs or gallops.??No peripheral edema. No JVD. Gastrointestinal: Abdomen soft, non-tender, non-distended. Normal bowel sounds. Neurologic: No focal neurological deficits. Moves all extremities spontaneously. Skin: No rashes or lesions. No petechiae or purpura.?? Musculoskeletal: No cyanosis or clubbing. No gross deformities. Normal range of motion. Reproducible chest pain with palpation of chest wall. Psychiatric: Anxious. Consultants Cardiology Pending Results Add On Lab Order ordered on 09/20/2022 CBC ordered on 09/21/2022 PTT ordered on 09/21/2022 Patient Education Titles Aspirin Oral Tablet 81 mg?? Fenofibrate Oral Tablet?? Uncertain Causes of Chest Pain?? Follow-Up Appointments Added Follow Up ?Time Frame ?Comments [facility] Card[facility]?4 to 5 weeks [facility]?for the follow upmanagmenet ofDM as your Hba1c is 9.8high triglycerides. you have been started on fenofibrate for thhis Patient Instructions Please follow up with your PCP within 1-2 weeks. Follow up with [facility] Cardiology in outpatient setting. If having chest pain, shortness of breath, palpitations, lightheadedness or swelling of yourlegs please call 911 or go to the emergency department. Post Discharge Care Discharge ?09/21/22 16:25:00 EST Discharge Prescriptions ?None, ??09/21/22 16:25:00 EST Results Discharge Labs BLOOD COUNT & DIFF WBC 12.1 k/mm3 (High)?? 09/21/2022 07:36 RBC 4.32 m/mm3 ()?? 09/21/2022 07:36 Hgb 11.8 Gm/dL ()?? 09/21/2022 07:36 Hct 34.7 % (Low)?? 09/21/2022 07:36 MCV 80.3 femtoliters ()?? 09/21/2022 07:36 MCH 27.3 pg ()?? 09/21/2022 07:36 MCHC 34.0 g/dL ()?? 09/21/2022 07:36 Platelet Count 209 k/mm3 ()?? 09/21/2022 07:36 RDW-SD 42.2 femtoliters ()?? 09/21/2022 07:36 MPV 11.8 femtoliters ()?? 09/21/2022 07:36 Nucleated RBC (Automated) 0.0 #/100 WBC'S ()?? 09/21/2022 07:36 Abs. NRBC 0.0 k/mm3 ()?? 09/21/2022 07:36 Abs. Neut 8.2 k/mm3 (High)?? 09/20/2022 18:16 Abs. Lymph 3.1 k/mm3 ()?? 09/20/2022 18:16 Abs. Steuben 0.4 k/mm3 ()?? 09/20/2022 18:16 Abs. Eo 0.2 k/mm3 ()?? 09/20/2022 18:16 Abs. Baso 0.1 k/mm3 ()?? 09/20/2022 18:16 Neut % 68.0 % ()?? 09/20/2022 18:16 Lymph % 25.6 % ()?? 09/20/2022 18:16 Steuben % 3.3 % (Low)?? 09/20/2022 18:16 Eos % 2.0 % ()?? 09/20/2022 18:16 Baso % 0.5 % ()?? 09/20/2022 18:16 Imm Gran 0.6 % ()?? 09/20/2022 18:16 Abs. Imm Gran 0.1 k/mm3 ()?? 09/20/2022 18:16 ?? CARDIAC High Sensitivity Troponin (HSTnT) 50 ng/L (High)?? 09/21/2022 14:24 ? CHEM GENERAL Sodium 135 mmol/L ()?? 09/21/2022 01:07 Potassium 4.1 mmol/L ()?? 09/21/2022 01:07 Chloride 101 mmol/L ()?? 09/21/2022 01:07 Bicarbonate Level 25 mmol/L ()?? 09/21/2022 01:07 Anion Gap 9 ()?? 09/21/2022 01:07 Glucose Level 349 mg/dL (High)?? 09/21/2022 01:07 Glucose, POC 208 mg/dL (High)?? 09/21/2022 12:21 Hemoglobin A1C (Monitoring) 9.8 % (High)?? 09/21/2022 01:07 Beta Hydroxybutyrate 0.05 mmol/L ()?? 09/20/2022 18:53 BUN 9 mg/dL ()?? 09/21/2022 01:07 Creatinine-Blood 0.6 mg/dL ()?? 09/21/2022 01:07 Estimated GFR Creatinine 112 ML/MIN/1.73 M2 ()?? 09/21/2022 01:07 Calcium 9.4 mg/dL ()?? 09/21/2022 01:07 Phosphorus 3.5 mg/dL ()?? 09/21/2022 01:07 Magnesium 2.0 mg/dL ()?? 09/21/2022 01:07 Protein, Total 6.8 Gm/dL ()?? 09/21/2022 01:07 Albumin 3.6 Gm/dL ()?? 09/21/2022 01:07 AG Ratio 1.1 ()?? 09/21/2022 01:07 Alkaline Phosphatase 104 units/L ()?? 09/21/2022 01:07 Lipase 46 units/L ()?? 09/20/2022 21:12 AST (SGOT) 27 units/L ()?? 09/21/2022 01:07 ALT (SGPT) 35 units/L (High)?? 09/21/2022 01:07 Bilirubin, Total 0.3 mg/dL ()?? 09/21/2022 01:07 Bilirubin, Direct <0.2 mg/dL ()?? 09/20/2022 18:53 Bilirubin, Indirect Direct bilirubin is less than the measureable limit. Therefore, indirect mg/dL ()?? 09/20/2022 18:53 ? COAG INR 1.0 ()?? 09/21/2022 01:07 Protime (PT) 10.2 seconds ()?? 09/21/2022 01:07 APTT 35.9 seconds (High)?? 09/21/2022 13:25 D-Dimer 1.03 mg/L FEU (High)?? 09/20/2022 18:16 ?? HEME OTHER Hold Lavender Top SPECIMEN DISCARDED AFTER 24 HOURS. ()?? 09/20/2022 18:53 Hold Blue Top SPECIMEN DISCARDED AFTER 4 HOURS. ()?? 09/20/2022 18:16 ?? LIPID STUDIES Cholesterol 250 mg/dL (High)?? 09/21/2022 01:07 Triglycerides 578 mg/dL (High)?? 09/21/2022 01:07 HDL Cholesterol 24 mg/dL (Low)?? 09/21/2022 01:07 LDL Cholesterol 110 mg/dL ()?? 09/21/2022 01:07 Non HDL Cholesterol 226 mg/dL (High)?? 09/21/2022 01:07 ? VIROLOGY COVID-19 POC Result NEGATIVE ()?? 09/20/2022 17:57 ?Patient case and plan discussed with ??Umar. ?Tre Miguel MD ?Internal Medicine PGY-1 25 minutes spent on discharge * Jules Breaux: PERFORM Event Display: Patient Education/Instruction Authored Date: [id number] Inpatient Adult Discharge Instructions [place] [id number] Name: ROC QUIÑONEZ : 1975 Visit: 09/20/2022 17:35:00 Current Date: 09/21/2022 16:46 Account: [id number] Inpatient Adult Discharge Instructions We would like to thank you for allowing us to assist you with your healthcare needs. The following includes patient education materials and information regarding your injury/illness. Our entire staffstrives to provide an excellent experience for our patients and their families. PLEASE ENSURE YOU FOLLOW-UP PER THE INSTRUCTIONS BELOW! ?? YOUR OPINION IS IMPORTANT TO US! Please complete the survey you may receive by mail or email. Your feedback will be used to make improvements to the healthcare experiences of our patients and their families. Surveys are administered by [employer] ?? If further treatment with your primary care physician or another doctor is recommended, it is important for you to keep the appointment. Call your primary care physician or return to the Emergency Department immediately if your condition worsens, fails to improve, or new symptoms develop. If you need to find a doctor, you can call [facility] for a referral at [phone] or toll free at [phone] or log in to [email or web address].. ?? You can view and manage your care through the patient portal or by using a health care jacinto of your choosing. [employer] is a website that allows you to securely view your medical information including your hospital discharge summary, office visit summaries, medications and follow-up visits. You can also request appointments, renew medications, and request access to your medical information using a health care jacinto of your choosing, or just ask a question. You can enroll at [email or web address] or register during your next office visit. You have been discharged from [facility], Patient Care Unit: D3B. If you have any questions regarding these instructions after you leave, please call us and we will be happy to assist you. [facility] Your Care Team Attending Physician Aundrea Nicholson MD Consulting Providers Parul Zimmerman MD Discharging Providers Aundrea Nicholson MD Reason for Admission Chest pain, General medical Tests Performed Below is a partial list of the tests performed during your hospitalization. You may have had other tests and procedures not included in this list. Please discuss all test results with your provider. Basic Metabolic Panel BETA HYDROXYBUTYRATE CBC w/ Differential COMPLETE BLOOD COUNT Comprehensive Metabolic Panel COVID-19 RNA POC D-DIMER GLUCOSE POC Hemoglobin A1C (Monitoring) HEPATIC FUNCTION PANEL High??Sensitivity??Troponin T Hold Blue Top Tube HOLD LAVENDER TUBE INR Lipase Lipid Panel Magnesium Level Phosphorus Level PTT Troponin T, High Sensitivity RUQ (US) US Doppler Ext Lower Venous Bilat XR Chest 2 Views Frontal and Lat Primary Care Provider Cruz Farooq Advance Directive Health Care Proxy on File Yes - Health Care Proxy Discharge Vitals Temperature: 98.3 DegF Weight: 98.1 kg Pulse Rate: 87 bpm ?? Respiratory Rate: 18 br/min ?? Systolic Blood Pressure: 135 mm Hg ?? Diastolic Blood Pressure: 81 mm Hg ?? Oxygen Saturation: 99 % ?? Studies Pending All tests and labs ordered during this hospital stay have been completed unless listed below. Please discuss all pending results with your provider listed above in these instructions. ?? Add On Lab Order CBC PTT What to do next Instructions From Your Doctor Discharge Orders Scheduled Follow-Up Appointments Monday 9:30 AM EDT ?? With: Regan MCKEON, Caty Perez Where: [facility] General Surgery [address] [place] [address] Drive [address] [place] [address]- Monday 11:20 AM EDT ?? With: Funmi MCKEON, Yaya Becerril Where: [facility] Plastic Surgery [address] [place] [address]- You Need to Schedule the Following Appointments Follow Up with??[facility] When??Within 4 to 5 weeks Where: [address] [place] [address]- Business (1) Follow Up with??Prescription has been sent to pharmacy in [facility] When?? Follow Up with??Cruz Navas When??Within 1 to 2 weeks Why: for the follow up managmenet of DM as your Hba1c is 9.8 high triglycerides. you have been started on fenofibrate for thhis Where: [address] [place] [address]- Business (1) Discharge Medications ROC QUIÑONEZ :1975 Visit Date:09/20/2022 Medications: Please continue your medications until treatment is completed or stopped by your provider. Medications not listed below should be discontinued. Discuss any questions related to medications with your provider. What How Much When Instructions Next Dose New Aspirin (aspirin 81 mg oral delayed release tablet) 1 tab(s) Oral Daily Refills: 1 Pickup at [place] [address] 09/22/22 AM New Fenofibrate (fenofibrate 145 mg oral tablet) 1 tab(s) Oral Daily Pickup at [place] [address] 09/22/22 AM Changed Insulin Glargine (Lantus Solostar Pen 100 units/ mL subcutaneous solution) INJECT 47 UNIT (0.47 ML) SUBCUTANEOUSLY EVERY EVENING FOR 30 DAYS ?? 09/21/22 PM Unchanged Acetaminophen (acetaminophen 325 mg oral tablet) 3 tab(s) Oral Every 6 hours as needed for Pain , Mild As Needed Unchanged Acetaminophen/ Codeine (Tylenol with Codeine #4) 1 tab(s) Oral Every 6 hours As Needed Unchanged Amlodipine (amLODIPine 5 mg oral tablet) 1 tab(s) Oral Daily 09/22/22 AM Unchanged Atorvastatin (atorvastatin 40 mg oral tablet) 2 tab(s) Oral Daily in the morning 09/22/22 AM Unchanged Durable Medical Equipment (10cm medipore tape) See instructions use as needed for daily dressing changes. 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 Unchanged Durable Medical Equipment (15cm Q tip applicators) See instructions use as needed for daily dressing changes. 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 Unchanged Durable Medical Equipment (3 inch medipore tape) See instructions use with daily packing. 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 Unchanged Durable Medical Equipment (4 x 4 super sponge) See instructions use 1 super sponge. Lightly pack abdomen wound daily. cover with sponge. 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 Unchanged Durable Medical Equipment (ABDOMINAL BINDER) See instructions DIAGNOSIS: ??VENTRAL HERNIA ?? Please custom fit patient for abdominal binder ?? Unchanged Durable Medical Equipment (super sponges) See instructions use as needed for daily dressing changes. 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 Unchanged Durable Medical Equipment (suture removal kits) See instructions use as needed for daily dressing changes. 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 Unchanged Fluticasone-Salmeterol (Advair Diskus 250 mcg-50 mcg inhalation powder) 1 inhalation Inhalation Daily rinse mouth and throat after use ?? 3 AM Unchanged GlipiZIDE (glipiZIDE 5 mg oral tablet) 1 tab(s) Oral Daily 09/22/22 AM Unchanged Lisinopril (lisinopril 2.5 mg oral tablet) 1 tab(s) Oral Daily 09/22/22 AM Unchanged Miscellaneous Rx (Misc Rx) 50,0000 units Oral Daily vitamin d3 ?? 09/22/22 AM Unchanged Nicotine (Nicorette 2 mg oral transmucosal gum) 1 Each Chew Every 2 hours as needed for as needed for smoking cessation As Needed Unchanged Oxycodone (oxyCODONE 5 mg oral tablet) 1 tab(s) Oral Every 6 hours as needed for as needed for pain As Needed [facility] [address] [place], [place] [id number] [phone] ?? What How Much When Comments Stop Taking Barium Sulfate (Readi-Cat 2 oral suspension) See instructions Readi-cat 2 2 ??bottle 450 mL Dx: ?? Stop Taking PEG Electrolyte Solution (MiraLax) 17 gram Oral Daily Test Results Below is a partial list of the most recent Laboratory test results done prior to this discharge. You may have had other tests and procedures not included in this list. Please discuss all test resultswith your provider. Basic Metabolic Panel (09/20/2022) ???Sodium - 137 mmol/L???Potassium - 4.2 mmol/L???Chloride - 101 mmol/L???Bicarbonate Level - 26 mmol/L???Anion Gap - 10???Glucose Level - 331 mg/dL???BUN - 8 mg/dL???Creatinine-Blood - 0.7 mg/dL???Estimated GFR Creatinine - 108 ML/MIN/1.73 M2???Calcium - 9.5 mg/dL BETA HYDROXYBUTYRATE (09/20/2022) ???Beta Hydroxybutyrate - 0.05 mmol/L CBC w/ Differential (09/20/2022) ???WBC - 12.1 k/mm3???RBC - 4.79 m/mm3???Hgb - 13.0 Gm/dL???Hct - 38.1 %???MCV - 79.5 femtoliters???MCH - 27.1 pg???MCHC - 34.1 g/dL???Platelet Count - 232 k/mm3???RDW-SD - 42.4 femtoliters???MPV - 12.1 femtoliters???Nucleated RBC (Automated) - 0.0 #/100 WBC'S???Abs. NRBC - 0.0 k/mm3???Abs. Neut - 8.2 k/mm3???Abs. Lymph - 3.1 k/mm3???Abs. [place] - 0.4 k/mm3???Abs. Eo - 0.2 k/mm3???Abs. Baso - 0.1 k/mm3???Neut % - 68.0 %???Lymph % - 25.6 %???[place] % - 3.3 %???Eos % - 2.0 %???Baso % - 0.5 %???Imm Gran - 0.6 %???Abs. Imm Gran - 0.1 k/mm3 COMPLETE BLOOD COUNT (09/21/2022) ???WBC - 12.1 k/mm3???RBC - 4.32 m/mm3???Hgb - 11.8 Gm/dL???Hct - 34.7 %???MCV - 80.3 femtoliters???MCH - 27.3 pg???MCHC - 34.0 g/dL???Platelet Count - 209 k/mm3???RDW-SD - 42.2 femtoliters???MPV - 11.8 femtoliters???Nucleated RBC (Automated) - 0.0 #/100 WBC'S???Abs. NRBC - 0.0 k/mm3 Comprehensive Metabolic Panel (09/21/2022) ???Sodium - 135 mmol/L???Potassium - 4.1 mmol/L???Chloride - 101 mmol/L???Bicarbonate Level - 25 mmol/L???Anion Gap - 9???Glucose Level - 349 mg/dL???BUN - 9 mg/dL???Creatinine-Blood - 0.6 mg/dL???Estimated GFR Creatinine - 112 ML/MIN/1.73 M2???Calcium - 9.4 mg/dL???Protein, Total - 6.8 Gm/dL???Albu min - 3.6 Gm/dL???AG Ratio - 1.1???Alkaline Phosphatase - 104 units/L???AST (SGOT) - 27 units/L???ALT (SGPT) - 35 units/L???Bilirubin, Total - 0.3 mg/dL COVID-19 RNA POC (09/20/2022) ???COVID-19 POC Result - NEGATIVE D-DIMER (09/20/2022) ???D-Dimer - 1.03 mg/L FEU GLUCOSE POC (09/21/2022) ???Glucose, POC - 208 mg/dL Hemoglobin A1C (Monitoring) (09/21/2022) ???Hemoglobin A1C (Monitoring) - 9.8 % HEPATIC FUNCTION PANEL (09/20/2022) ???Protein, Total - 7.0 Gm/dL???Albumin - 3.8 Gm/dL???Alkaline Phosphatase - 112 units/L???AST (SGOT) - 38 units/L? ?ALT (SGPT) - 36 units/L? ?Bilirubin, Total - 0.4 mg/dL? ?Bilirubin, Direct - <0.2 mg/dL???Bilirubin, Indirect - Direct bilirubin is less than the measureable limit. Therefore, indirect High??Sensitivity??Troponin T (09/21/2022) ???High Sensitivity Troponin (HSTnT) - 24 ng/L Hold Blue Top Tube (09/20/2022) ???Hold Blue Top - SPECIMEN DISCARDED AFTER 4 HOURS. HOLD LAVENDER TUBE (09/20/2022) ???Hold Lavender Top - SPECIMEN DISCARDED AFTER 24 HOURS. INR (09/21/2022) ???INR - 1.0???Protime (PT) - 10.2 seconds Lipase (09/20/2022) ???Lipase - 46 units/L Lipid Panel (09/21/2022) ???Cholesterol - 250 mg/dL???Triglycerides - 578 mg/dL???HDL Cholesterol - 24 mg/dL???LDL Cholesterol - 110 mg/dL???Non HDL Cholesterol - 226 mg/dL Magnesium Level (09/21/2022) ???Magnesium - 2.0 mg/dL Phosphorus Level (09/21/2022) ???Phosphorus - 3.5 mg/dL PTT (09/21/2022) ???APTT - 35.9 seconds Troponin T, High Sensitivity (09/21/2022) ???High Sensitivity Troponin (HSTnT) - 50 ng/L Allergies (NKA means No Known Allergies) Adhesive Bandage??(rash) Contrast Dye Latex??(rash) Omnipaque 350??(Anaphelaxis) Problems Active Problems??(9) Cervical mass?? DM2 (diabetes mellitus, type 2)?? Dyslipidemia?? Hirsutism?? Hx of abscess of breast?? Hypertension?? Obese class II?? Obesity?? Vitamin D deficiency?? Education Materials Below is the list of Educational Leaflet Providered with your Discharge Instructions. Aspirin Oral Tablet 81 mg?? Fenofibrate Oral Tablet?? Uncertain Causes of Chest Pain?? Valuables and Belongings I fully understand and agree that [facility] accepts no responsibility for all my personal property including clothing, toilet articles, radios, jewelry, dentures, hearing aids, rings, money, or any other property that is in my possession or is brought to me after admission. I understand certain valuables may be placed in a hospital safe for a short period of time. I understand that the hospital is not liable for loss or damage due to accident, fire, or other natural occurrence while said property is in the safe. I accept full responsibility for any personal property that I keep with me, and will not hold the hospital responsible in case of loss or disappearance. I acknowledge that i have been encouraged to send valuables and belongings home. ?? No Valuables/Belongings: No valuables/belongings present Review of Valuable and Belonging List: With patient Date for Pt to Sign Valuables/Belongings: 09/21/22 02:34:00 ?? Other Discharge Information ? Pulmonary Rehab Status?? Pulmonary Rehab Discharge Status?? Respiratory Rate: 18 br/min ? Common Emergency Awareness Tips IS IT A STROKE? Act FAST and Check for these signs: FACE Does the face look uneven? ARM Does one arm drift down? SPEECH Does their speech sound strange? TIME Call at any sign of stroke ?? Heart Attack Signs Chest discomfort: Most heart attacks involve discomfort in the center of the chest and lasts more than a few minutes, or goes away and comes back. It can feel like uncomfortable pressure, squeezing, fullness or pain. Discomfort in upper body: Symptoms can include pain or discomfort in one or both arms, back, neck, jaw or stomach. Shortness of breath: With or without discomfort. Other signs: Breaking out in a cold sweat, nausea, or lightheaded. Remember, MINUTES DO MATTER. If you experience any of these heart attack warning signs, call to get immediate medical attention! ?? Smoking can increase your chances of developing chronic health problems and can cause harmful effects to other family members in your house. If you smoke, you are strongly encouraged to quit. Please call [facility] at [phone] or [phone] ([phone]) or log in to [email or web address] for referrals to smoking cessation programs. ?? The National Suicide Prevention Hotline is available 13/02 if you or someone you know needs to find a reason to keep living. By calling 1-421-721-AVdirect (6401) you'll be connected to a skilled, trained counselor at a crisis center in your area. INPATIENT DISCHARGE INSTRUCTIONS SIGNATURE PAGE ROC QUIÑONEZ Location:[facility] Registration Date and Time:09/20/2022 17:35 EST Primary Care Physician: Cruz Farooq, I ROC QUIÑONEZ, have received the above patient education materials/instructions and have verbalized understanding. If ambulance or transport services are being used I further acknowledge being given a choice of service. ?? If you need to contact me, please call me at this number: . Patient/Solutions Manager Name: Patient/Solutions Manager Signature: Relationship to Patient: Witness Name/Signature: Date: * Aundrea Nicholson MD: SIGN, PERFORM, SIGN, VERIFY Event Display: Patient Education Handout Authored Date: [id number] * Aundrea Nicholson MD: PERFORM Event Display: Patient Education Leaflets Authored Date: [id number] Aspirin Oral Tablet 81 mg ?? 4327-3 Aspirin Oral Tablet 81 mg Uses This medicine is used for the following purposes: ??? fever ??? heart attack ??? heart disease ??? inflammatory disease ??? pain ??? prevent blood clots ??? prevent stroke ??? stroke ??? prevent heart attack ?? Instructions Sit or stand upright for 10 minutes after taking the medicine. Do not lie down. Swallow with a full glass (8 oz) of water unless your doctor gives you different instructions. You may take with food to prevent stomach upset. Keep the medicine at room temperature. Avoid heat and direct light. If you are using this medicine regularly, it is important to take each dose of medicine on time. Keep taking the medicine even if you feel well. If you forget to take a dose on time, take it as soon as you remember. If it is almost time for thenext dose, do not take the missed dose. Return to your normal schedule. Do not take 2 doses at one time. Drug interactions can change how medicines work or increase risk for side effects. Tell your healthcare providers about all medicines taken. Include prescription and zvxx-yoc-derngli medicines, vitamins, and herbal medicines. Speak with your doctor or pharmacist before starting or stopping any medicine. Tell your doctor if symptoms do not get better or if they get worse. Talk to your doctor before taking other medicines, including aspirins and ibuprofen containing products. Speak to your doctor about which medicines are safe to use while you are on this medicine. ?? Cautions IMPORTANT: Children and teenagers should not use medications containing aspirin for cold and flu symptoms or chickenpox. Tell your doctor and pharmacist if you ever had an allergic reaction to a medicine. There is an increased risk of bleeding while on this medicine, please tell your doctor or nurse if you notice any excessive bleeding or bruising. Do not use the medication any more than instructed. If you drink more than a few alcoholic beverages each day, ask your doctor whether you should be onthis medicine. Avoid smoking while on this medicine. Smoking may increase your risk for stomach bleeding. Contact your doctor if you notice a change in the amount or darkening of your urine. Tell the doctor or pharmacist if you are , planning to be , or . ?? Side Effects The following is a list of some common side effects from this medicine. Please speak with your doctor about what you should do if you experience these or other side effects. ??? stomach upset or abdominal pain If you have any of the following side effects, you may be getting too much medicine. Please contactyour doctor to let them know about these side effects. ??? ringing in the ears Call your doctor or get medical help right away if you notice any of these more serious side effects: ??? severe or persistent abdominal pain ??? increased risk of bleeding ??? bleeding that is severe or takes longer to stop ??? coughing up blood or vomit that looks like coffee grounds ??? fever ??? swelling in the neck or throat ??? shortness of breath ??? dark, tarry stool ??? urinating less often A few people may have an allergic reaction to this medicine. Symptoms can include difficulty breathing, skin rash, itching, swelling, or severe dizziness. If you notice any of these symptoms, seek medical help quickly. ?? Extra Please speak with your doctor, nurse, or pharmacist if you have any questions about this medicine. ?? [email or web address] IMPORTANT NOTE: This document tells you briefly how to take your medicine, but it does not tell youall there is to know about it. Your doctor or pharmacist may give you other documents about your medicine. Please talk to them if you have any questions. Always follow their advice. There is a more complete description of this medicine available in Haitian. Scan this code on your smartphone or tablet or use the web address below. You can also ask your pharmacist for a printout. If you have any questions, please ask your pharmacist. The display and use of this drug information is subject to Terms of Use. Copyright(c) 2022 [employer]. ?? [employer]. All rights reserved. This information is not intended as a substitute for professional medical care. Always follow your healthcare professional's instructions. ?? * Aundrea Nicholson MD: PERFORM Event Display: Patient Education Leaflets Authored Date: [id number] Fenofibrate Oral Tablet ?? [address] Fenofibrate Oral Tablet Brands: [employer] Uses To lower high fat levels in blood. ?? Instructions This medicine may be taken with or without food. Keep the medicine at room temperature. Avoid heat and direct light. It is important that you keep taking each dose of this medicine on time even if you are feeling well. If you forget to take a dose on time, take it as soon as you remember. If it is almost time for thenext dose, do not take the missed dose. Return to your normal schedule. Do not take 2 doses at one time. Tell your doctor and pharmacist about all your medicines. Include prescription and fmqm-uri-xzktnzqfgpryvrve, vitamins, and herbal medicines. It is very important that you follow your doctor's instructions for all blood tests. ?? Cautions Tell your doctor and pharmacist if you ever had an allergic reaction to a medicine. Do not use the medication any more than instructed. Please check with your doctor before drinking alcohol while on this medicine. Contact your doctor if you notice a change in the amount or darkening of your urine. Tell the doctor or pharmacist if you are , planning to be , or . Do not breastfeed while on this medicine. Do not start or stop any other medicines without first speaking to your doctor or pharmacist. Do not share this medicine with anyone who has not been prescribed this medicine. ?? Side Effects Call your doctor or get medical help right away if you notice any of these more serious side effects: ??? swelling in the neck or throat ??? signs of liver damage (such as yellowing of eye or skin, dark urine, or unusual tiredness) ??? nausea ??? stomach upset or abdominal pain A few people may have an allergic reaction to this medicine. Symptoms can include difficulty breathing, skin rash, itching, swelling, or severe dizziness. If you notice any of these symptoms, seek medical help quickly. ?? Extra Please speak with your doctor, nurse, or pharmacist if you have any questions about this medicine. ?? [email or web address] IMPORTANT NOTE: This document tells you briefly how to take your medicine, but it does not tell youall there is to know about it. Your doctor or pharmacist may give you other documents about your medicine. Please talk to them if you have any questions. Always follow their advice. There is a more complete description of this medicine available in Haitian. Scan this code on your smartphone or tablet or use the web address below. You can also ask your pharmacist for a printout. If you have any questions, please ask your pharmacist. The display and use of this drug information is subject to Terms of Use. Copyright(c) 2022 [employer]. ?? [employer]. All rights reserved. This information is not intended as a substitute for professional medical care. Always follow your healthcare professional's instructions. ?? * Aundrea Nicholson MD: PERFORM Event Display: Patient Education Leaflets Authored Date: [id number] Uncertain Causes of Chest Pain ?? [id number] Uncertain Causes of Chest Pain Chest pain can happen for a number of reasons. Sometimes the cause can't be determined. If your??condition does not seem serious, and your pain does not appear to be coming from your heart, your healthcare provider may recommend watching it closely. Sometimes the signs of a serious problem take more time to appear. Many problems not related to your heart can cause chest pain. These include: ??? Musculoskeletal. Costochondritis is an inflammation of the tissues around the ribs that can occur from trauma or overuse injuries, or a strain of the muscles of the chest wall. ??? Respiratory. Pneumonia, collapsed lung (pneumothorax), or inflammation of the lining of the chest and lungs (pleurisy). ??? Gastrointestinal. Esophageal reflux, heartburn, ulcers, or gallbladder disease. ??? Anxiety and panic disorders ??? Nerve compression and inflammation ??? Rare problems such as aortic aneurysm or aortic dissection (a swelling of the large artery coming out of the heart or a tear in the wall of the artery), or pulmonary embolism (a blood clot in the lungs). Home care After your visit, follow these recommendations: ??? Rest today and avoid strenuous activity. ??? Take any prescribed medicine as directed. ??? Be aware of any recurrent chest pain and notice any changes ?? Follow-up care Follow up with your healthcare provider if you don't start to feel better within 24 hours, or as advised. ?? Call 911 Call 911 if any of these occur: ??? A change in the type of pain: if it feels different, becomes more severe, lasts longer, or begins to spread into your shoulder, arm, neck, jaw or back ??? Shortness of breath or increased pain with breathing ??? Weakness, dizziness, or fainting ??? Rapid heartbeat ??? Crushing sensation in your chest ??? Coughing up more than a small amount of blood. ?? When to seek medical advice Call your healthcare provider right away if any of the following occur: ??? Cough with dark coloredsputum (phlegm) or small amount of blood ??? Fever of 100.4??F??(38??C) or higher, or as directed by your healthcare provider ??? Swelling, pain or redness in one leg ?? Last Reviewed Date: 2021 ?? 4273-7489 [employer] All rights reserved. This information is not intended as a substitute for professional medical care. Always follow your healthcare professional's instructions. ?? * PATRICK Davidson S: Mason Stewart MD: VERIFY Event Display: Result: Authored Date: [id number] Chest 2 Views Frontal and Lat Hx of Present Illness: MCO - high blood sugars, chest pain after using vape pen 2 days ago (worse now), L arm pain. Numbness, tingling, epigastric AP, increased distention lower abd.; Reason: Other:;Chest Pain; Clinical Question(s): Other: COMPARISON: 03/14/2018. FINDINGS: LUNGS AND PLEURA: Clear lungs. Normal pulmonary vascularity. No pleural effusion. No pneumothorax. HEART, MEDIASTINUM AND RIRI: Heart is normal in size. Normal mediastinal and hilar contour. BONES AND SOFT TISSUES: No acute abnormality. IMPRESSION: No acute abnormality. WSN: [id number] Ordering Physician: Julianna Lazaro Dictated By: Mason Cooley MD Dictated Date/Time: 09/20/22 7:05 pm Reviewed By: Mason Cooley MD Signed By: Mason Cooley MD Signed Date/Time: 09/20/22 7:05 pm Transcribed By: HAIDER Transcribed Date/Time: 09/20/22 7:05 pm * PATRICK Davidson S: Corey Chavez MD: VERIFY Event Display: Result: Authored Date: [id number] US RUQ HX OF PRESENT ILLNESS: MCO - high blood sugars, chest pain after using vape pen 2 days ago (worse now), L arm pain. numbness, tingling, epigastric AP, increased distention lower abd.; Reason: Choledocholithiasis; Clinical Question(s): Cholecystitis COMPARISON: CT from 03/24/2022. FINDINGS: Liver: Diffusely echogenic parenchyma. No suspicious lesion. Enlarged, measuring 26.8 cm in length.Smooth hepatic contour. Main portal vein patent with normal hepatopetal direction of flow. Gallbladder: No gallstones. Normal wall thickness. No pericholecystic fluid. Negative Sheppard sign. Gallbladder is contracted. Biliary Tree: No intrahepatic or extrahepatic bile duct dilation is identified. Common duct measures: 0.5 cm. Pancreas: Partially obscured by overlying bowel gas. No abnormality in the visualized portions of the pancreas. Right kidney: 12.3 cm in length. Normal parenchymal echotexture and thickness. No hydronephrosis, stone or mass. IMPRESSION: Echogenic, enlarged liver likely representing hepatic steatosis. Otherwise unremarkable exam. WSN: [id number] Ordering Physician: Brooks Rios Dictated By: Corey Monique MD Dictated Date/Time: 09/20/22 8:42 pm Reviewed By: Corey Monique MD Signed By: Corey Monique MD Signed Date/Time: 09/20/22 8:42 pm Transcribed By: HAIDER Transcribed Date/Time: 09/20/22 8:40 pm US.doppler Lower extremity vein - bilateral * BHSPowerscribe , CIS S: TRANSCRISHAHLA Sloan MD, Adi: VERIFY Event Display: Result: Authored Date: [id number] US Doppler Ext Lower Venous Bilat Reason: Elevated d-dimer; Clinical Question(s): Thrombosis COMPARISON: None IMAGING TECHNIQUE: Ultrasound of the veins from the groin through the calf was performed using grayscale, color, and spectral Doppler ultrasound assessing for complete compressibility and normal flowcharacteristics. FINDINGS: RIGHT LOWER EXTREMITY: Common femoral vein: Patent. No thrombosis. Femoral vein: Patent. No thrombosis. Popliteal vein: Patent. No thrombosis. Gastrocnemius veins: The visualized portions are patent without evidence of thrombosis. Peroneal veins: The visualized portions are patent without evidence of thrombosis. Posterior tibial veins: The visualized portions are patent without evidence of thrombosis. LEFT LOWER EXTREMITY: Common femoral vein: Patent. No thrombosis. Femoral vein: Patent. No thrombosis. Popliteal vein: Patent. No thrombosis. Gastrocnemius veins: The visualized portions are patent without evidence of thrombosis. Peroneal veins: The visualized portions are patent without evidence of thrombosis. Posterior tibial veins: The visualized portions are patent without evidence of thrombosis. IMPRESSION: No evidence of deep venous thrombosis. WSN: [id number] Ordering Physician: Cintia Oviedo Dictated By: Adi Sloan MD Dictated Date/Time: 09/21/22 11:59 a Reviewed By: Adi Sloan MD Signed By: Adi Sloan MD Signed Date/Time: 09/21/22 11:59 am Transcribed By: CSCisco Transcribed Date/Time: 09/21/22 11:46 am Patient Care team information Care Team Personnel Name: Rudy Huber RN Position: [facility] RN Member Role: Primary Care Nurse Name: Hasmukh Buckner RN Position: [facility] RN Member Role: Primary Care Nurse Name: Cruz Farooq Position: Reference Physician Member Role: PCP Address: Address: [address] [place] [address] Name: Kay Sewell RN Position: [facility] RN Member Role: Primary Care Nurse Name: Valentin Parish RN Position: [facility] RN Member Role: Primary Care Nurse Name: Faviola Irvin RN Position: [facility] RN Member Role: Primary Care Nurse Name: Jonathan Marquez RN Position: [facility] RN Member Role: Primary Care Nurse Name: Eugenia Pichardo RN Position: [facility] RN Member Role: Primary Care Nurse Name: Savannah Tyler RN Position: [facility] RN Member Role: Primary Care Nurse Name: Tayler Horn RN Position: [facility] RN Member Role: Primary Care Nurse Name: Francy Nava LPN Position: [facility] RN Member Role: Primary Care Nurse Name: Geraldo BRIZUELA Attending Position: [facility] ED Medicine MD Name: Sara William RN Position: [facility] ED RN W/OE and Tasks Member Role: Patient Care Provider Name: Jose Carlos Yeung Position: [facility] ED TA [facility] Member Role: Rental Agent Name: Brooks Rios MD Position: [facility] Resident Member Role: ED Resident Address: Address: [address] [place] [address]- Care Team Related Persons Name: NICO FLORES Address: [address] [place] [address] Name: LIDIA VAZQUEZ Address: home [address] [place] [address] Name: MONIQUE VERONICA Address: home UN
--- OUTSIDE RECORDS SUMMARY | 2024-05-09 09:14 | XMS_ITS | Continuity of Care Document ---
Author Organization [facility] Address [address] [place] [address] [address] [place] [address]- Care Team Providers Care Fingernail Former Name Role Phone Cruz Farooq Primary Care Physician Encounter [facility] [place] Date(s): 05/10/23 - 06/09/23 [facility] [address] [place] [address]- Allergies, Adverse Reactions, Alerts Substance Reaction Severity [...] 09/21/22 14:52:00 EST, Route to Pharmacy Electronically, [facility], Partial fill upon patient request if [...] 0 Refills, Soft Stop, 12/16/22 14:29:00 EDT, [facility] 3, Partial fill upon patient request if the prescriptionis for a schedule II opioid drug., 165.1, cm, 12/16... Start Date: 12/16/22 Status: Ordered fenofibrate 145 mg oral tablet 1 tablet = 145 mg, By Mouth, Daily, # 30 tablet, 0 Refills, Maintenance, 09/21/22 14:53:00 EST, Tablet, [facility] 3, Partial fill upon patient request [...] 08/17/21 10:32:00 EST, Route to Pharmacy Electronically, [facility]/pharmacy #[id number], Partial fill upon patient request if the [...] Team Personnel Name: Adelita Castillo RN Position: [facility] ED RN W/OE and Tasks Member Role: Primary Care Nurse Name: Rudy Huber RN Position: [facility] RN Member Role: Primary Care Nurse Name: Hasmukh Buckner RN Position: [facility] RN Member Role: Primary Care Nurse Name: Cruz Farooq Position: Reference Physician Member Role: PCP Address: Address: [address] [facility] [address] [place] [address]- Name: Kay Sewell RN Position: [facility] RN Member Role: Primary Care Nurse Name: Valentin Parish RN Position: S RN Member Role: Primary Care Nurse Name: Faviola Irvin RN Position: S RN Member Role: Primary Care Nurse Name: Jonathan Marquez RN Position: [facility] RN Member Role: Primary Care Nurse Name: Eugenia Pichardo RN Position: S RN Member Role: Primary Care Nurse Name: Savannah Tyler RN Position: S RN Member Role: Primary Care Nurse Name: Tayler Horn RN Position: S RN Member Role: Primary Care Nurse Name: Francy Nava LPN Position: [facility] RN Member Role: Primary Care Nurse Care Team Related Persons Name: JUAN DIEGO FLORESPHOENIX Address: home [address] [place] [address] Name: LIDIA VAZQUEZ Address: home [address] [place] [address] Name: MONIQUE VERONICA Address: home UNK Name: ELEN VERONICA Address: home [address] [place] [address]
--- OUTSIDE RECORDS SUMMARY | 2024-05-09 09:14 | XMS_ITS | Continuity of Care Document ---
Author Organization [facility] Torrie clair Address [address] [place] [address] [address] [place] [address]- Care Team Providers Care Patent Lawyer Name Role Phone Cruz Farooq Primary Care Physician [phone] Encounter [facility] Date(s): 09/26/23 - 10/26/23 [facility] [address] [place] [address] [id number] Attending Physician: Admtr, [id number] Admitting Physician: Admtr, Ar8 Referring Physician: Admtr, Ar8 Allergies, Adverse Reactions, [...] 09/21/22 14:52:00 EST, Route to Pharmacy Electronically, [facility] 3, Partial fill upon patient [...] 0 Refills, Soft Stop, 12/16/22 14:29:00 EDT, [facility] 3, Partial fill upon patient request if the prescriptionis for a schedule II opioid drug., 165.1, cm, 05/26... Start Date: 12/16/22 Status: Ordered fenofibrate 145 mg oral tablet 1 tablet = 145 mg, By Mouth, Daily, # 30 tablet, 0 Refills, Maintenance, 09/21/22 14:53:00 EST, Tablet, [facility] 3, Partial fill upon patient [...] opioid drug. Start Date: 09/21/22 Status: Ordered [facility] Rx 50,0000 units, By Mouth, [...] 08/17/21 10:32:00 EST, Route to Pharmacy Electronically, [facility]/pharmacy #[id number], Partial fill upon patient request if the [...] Team Personnel Name: Adelita Castillo RN Position: [facility] ED RN W/OE and Tasks Member Role: Primary Care Nurse Name: Rudy Huber RN Position: [facility] RN Member Role: Primary Care Nurse Name: Hasmukh Buckner RN Position: [facility] RN Member Role: Primary Care Nurse Name: Cruz Farooq Position: Reference Physician Member Role: PCP Address: Address: [address] [place] [address] [address] [place], [place] [address] Name: Kay Sewell RN Position: [facility] SN RN Member Role: Primary Care Nurse Name: Valentin Parish RN Position: [facility] RN Member Role: Primary Care Nurse Name: Faviola Irvin RN Position: S RN Member Role: Primary Care Nurse Name: Jonathan Marquez RN Position: [facility] RN Member Role: Primary Care Nurse Name: Eugenia Pichardo RN Position: [facility] RN Member Role: Primary Care Nurse Name: Savannah Tyler RN Position: S RN Member Role: Primary Care Nurse Name: Tayler Horn RN Position: S RN Member Role: Primary Care Nurse Name: Francy Nava LPN Position: S RN Member Role: Primary Care Nurse Care Team Related Persons Name: MICHELLELeigh JUAN DIEGOPHOENIX Address: home [address] [place] [address] Name: LIDIA VAZQUEZ Address: home [address] [place] [address] Name: MONIQUE VERONICA Address: home UNK Name: ELEN VERONICA Address: home [address] [place] [address]
--- OUTSIDE RECORDS SUMMARY | 2024-05-09 09:14 | XMS_ITS | Continuity of Care Document ---
Author Organization [facility] Address [address] [place] [address]- Care Team Providers Care Filing And Polishing Supervisor Name Role Phone Maverick Pardo MD Primary Care Physician Encounter [facility] Date(s): 07/06/21 - 08/05/21 [facility] [address] [place] [id number] Attending Physician: Trish Mejia Admitting Physician: Trish Mejia Referring Physician: AdmtrTrish Allergies, Adverse Reactions, Alerts Substance Reaction Severity [...] 07/17/21 10:44:00 EST, Route to Pharmacy Electronically, [facility]/pharmacy #[id number], Partial fill upon patient request if the prescriptio... Start Date: 07/17/21 Status: Ordered gabapentin 300 mg oral capsule 300 mg, 1, capsule, By Mouth, 3 times a day, # 15 capsule, Refills 0, Tot. Refills 0, Maintenance, 08/03/21 15:12:00 EST, Route to Pharmacy Electronically, [facility], Partial fill uponpatient request if the prescription is for a schedu... Start Date: 08/03/21 Stop Date: 08/08/21 Status: Ordered Lantus Solostar Pen 100 units/mL subcutaneous solution = 30 units, Subcutaneous Injection, Daily at bedtime, # 10 mL, 2 Refills, Maintenance, 06/16/21 15:25:00 EST, Injection, [facility]/pharmacy #[id number], Partial fill upon patient request [...] opioid drug. Start Date: 06/14/21 Status: Ordered [facility] Vitamin D3 2000IU, Daily, Refills 0, Maintenance, 07/12/21 9:32:00 EST, Supply Start Date: 07/12/21 Status: Ordered oxyCODONE 5 mg oral tablet 10 mg, 2, tablet, By Mouth, Every 6 hours, PRN, for 5 days, # 40 tablet, Refills 0, Tot. Refills 0,Acute 08/08/21 15:13:00 EST, Pain , Moderate, 08/03/21 15:13:00 EST, Route to Pharmacy Electronically, [facility], Partial fill upon leslee... [...]
--- OUTSIDE RECORDS SUMMARY | 2024-05-09 09:14 | XMS_ITS | Continuity of Care Document ---
Author Organization [facility] Torrie clair Address [address] [place] [address] [address] [place] [address]- Care Team Providers Care Vice President Quality Name Role Phone Cruz Farooq Primary Care Physician [place] [facility] [place](s): 05/19/23 - 09/16/23 [facility] [address] [place], [place] [address] Attending Physician: Maya Colvin Allergies, Adverse [...] Route to Pharmacy Electronically, [facility] 3, Partial fill upon patient [...] Stop, 12/16/22 14:29:00 EDT, [facility] 3, Partial fill upon patient request if the prescriptionis for a schedule II opioid drug., 165.1, cm, 12/16... Start Date: 12/16/22 Status: Ordered fenofibrate 145 mg oral tablet 1 tablet = 145 mg, By Mouth, Daily, # 30 tablet, 0 Refills, Maintenance, 09/21/22 14:53:00 EST, Tablet, [facility], Partial fill upon [...] 10:32:00 EST, Route to Pharmacy Electronically, [facility]/pharmacy #[id number], Partial fill upon patient request if the [...] Team Personnel Name: .Adelita Garces RN Position: [facility] ED RN W/OE and Tasks Member Role: Primary Care Nurse Name: Rudy Huber RN Position: [facility] RN Member Role: Primary Care Nurse Name: Hasmukh Buckner RN Position: [facility] RN Member Role: Primary Care Nurse Name: Cruz Farooq Position: Reference Physician Member Role: PCP Address: Address: [address] [place] [address] [place] [address] Name: Kay Sewell RN Position: [facility] SN RN Member Role: Primary Care Nurse Name: Valentin Parish RN Position: S RN Member Role: Primary Care Nurse Name: Faviola Irvin RN Position: S RN Member Role: Primary Care Nurse Name: Jonathan Marquez RN Position: [facility] RN Member Role: Primary Care Nurse Name: Eugenia Pichardo RN Position: [facility] RN Member Role: Primary Care Nurse Name: Savannah Tyler RN Position: [facility] RN Member Role: Primary Care Nurse Name: Tayler Horn RN Position: S RN Member Role: Primary Care Nurse Name: Francy Nava LPN Position: S RN Member Role: Primary Care Nurse Care Team Related Persons Name: MICHELLELeigh JUAN DIEGOPHOENIX Address: home [address] [place] [address] Name: LIDIA VAZQUEZ Address: home [address] [place] [address] Name: MONIQUE VERONICA Address: home UNK Name: ELEN VERONICA Address: home [address] [place] [address]
--- OUTSIDE RECORDS SUMMARY | 2024-05-09 09:14 | XMS_ITS | Continuity of Care Document ---
Author Organization [facility] Address Unknown Care Team Providers Care Lan/Wan Engineer Name Role Phone Maverick Pardo MD Primary Care Physician Encounter [facility] [place] Date(s): 07/05/21 - 09/26/21 [facility] Attending Physician: Claire Kirk NP Referring Physician: Maverick Pardo MD Allergies, Adverse [...] 09/06/21 9:56:00 EST, Route to Pharmacy Electronically, [facility]/pharmacy #[id number], Partial fill upon patient request if [...] oldest [Reference Range]: 1 Height 165.1 cm (08/10/21 1:15 PM) Pulse Rate [55-90 bpm] 116 bpm *H* (08/10/21 1:15 PM) Blood Pressure [90-138/55-84 mm Hg] 143/ 90mm Hg *H* (08/10/21 1:15 PM) Respiratory Rate [16-30 br/min] 18 br/mi n (08/10/21 1:15 PM) Temperature [96.8-100.4 DegF] 97.7 DegF (08/10/21 1:15 PM) Blood pressure sites Leg, right (08/10/21 1:15 PM) Temperature Route Temporal (08/10/21 1:15 PM) Social History Social History Type Response Smoking Status 10 or more cigarette s (1/2 pack or more)/day in last 30 days entered on: 07/13/21 Sex
--- OUTSIDE RECORDS SUMMARY | 2024-05-09 09:14 | XMS_ITS | Continuity of Care Document ---
Author Organization [facility] Address Unknown Care Team Providers Care Paper Supervisor Name Role Phone Maverick Pardo MD Primary Care Physician Encounter [facility] [place] Date(s): 08/17/21 - 10/03/21 [facility] Attending Physician: Elizabeth Olmstead [...] 09/06/21 9:56:00 EST, Route to Pharmacy Electronically, [facility]/pharmacy #[id number], Partial fill upon patient [...]
--- OUTSIDE RECORDS SUMMARY | 2024-05-09 09:14 | XMS_ITS | Continuity of Care Document ---
Author Organization [facility] Address [address] [place] [address] [address] [place] [address]- Care Team Providers Care Administrative Support Assoc Name Role Phone Cruz Farooq Primary Care Physician Encounter [id number] Date(s): 07/04/22 - 07/11/[address] [place] [address]- Attending Physician: Caty Spears MD Allergies, Adverse [...] Refills, Maintenance, 06/16/21 15:25:00 EST, Injection, [facility]/pharmacy #[id number], Partial fill upon patient request if the [...] 10:32:00 EST, Route to Pharmacy Electronically, [facility]/pharmacy #[id number], Partial fill upon patient [...] oldest [Reference Range]: 1 Height 165.1 cm (07/04/22 10:47 AM) Weight 97.4 kg (07/04/22 10:47 AM) Pulse Rate [55-90 bpm] 102 bpm *H* (07/04/22 10:47 AM) Body Mass Index [18.5-24.99 kg/m2] 35.73 kg/m2 *>HHI* (07/04/22 10:47 AM) Blood Pressure [90-138/55-84 mm Hg] 149/ 88mm Hg *H* (07/04/22 10:47 AM) Respiratory Rate [16-30 br/min] 16 br/mi n (07/04/22 10:47 AM) Temperature [96.8-100.4 DegF] 98.2 DegF (07/04/22 10:47 AM) Blood pressure sites Arm, right (07/04/22 10:47 AM) Temperature Route Temporal (07/04/22 10:47 AM) Weight Obtained Via Standing scale (07/04/22 10:47 AM) Social History Social History Type Response Smoking Status Use: 4 or less cigar ettes(less than 1/4 pack)/day in last 30 days;10 or more cigarettes (1/2 pack or more)/day in last 30 days; Other: Quit 1 week ago, USing the gum; entered on: 05/02/22 Sex Patient Care team information Care Team Personnel Name: Rudy Huber RN Position: S RN Member Role: Primary Care Nurse Name: Hasmukh Buckner RN Position: S RN Member Role: Primary Care Nurse Name: Cruz Farooq Position: Reference Physician Member Role: PCP Address: Address: [address] [place] [address] [address] [place] [address]- Name: Kay Sewell RN Position: [facility] RN Member Role: Primary Care Nurse Name: Faviola Irvin RN Position: S RN Member Role: Primary Care Nurse Name: Jonathan Marquez RN Position: S RN Member Role: Primary Care Nurse Name: Eugenia Pichardo RN Position: S RN Member Role: Primary Care Nurse Name: Savannah Tyler RN Position: [facility] RN Member Role: Primary Care Nurse Name: Tayler Horn RN Position: [facility] RN Member Role: Primary Care Nurse Care Team Related Persons Name: NICO FLORES Address: home [address] [place] [address] Name: LIDIA VAZQUEZ Address: home [address] [place] [address] Name: MONIQUE VERONICA Address: home [facility]
--- OUTSIDE RECORDS SUMMARY | 2024-05-09 09:14 | XMS_ITS | Continuity of Care Document ---
Author Organization [facility] Address [address] [place] [address]- Care Team Providers Care Director Museum Or Zoo Name Role Phone Not on Staff, PCP Primary Care Physician Unavail able [place]counter [facility] [place] Date(s): 06/13/21 - 06/16/[address] [address]- Encounter Diagnosis Intra-abdominal abscess(Final) - 06/14/21 Discharge Disposition: A-D/C Home Attending Physician: Tin Hunt MD, Wero Perkins Admitting Physician: Rodolfo Quan MD Referring Physician: [...] opioid drug. Start Date: 06/14/21 Status: Ordered Augmentin 875 mg-125 mg oral tablet 1 tablet, By Mouth, Every 12 hours, for 5 days, # 10 tablet, 0 Refills, Acute 06/21/21 15:22:00 EST, 06/16/21 15:22:00 EST, Tablet, [facility]/pharmacy #[id number], Partial fill upon patient request if the prescription is for a schedule II opioid drug., 166, cm, 1... Start Date: 06/16/21 Stop Date: 06/21/21 Status: Ordered Dilaudid Inj 1 mg, Injection, IV Push Slowly, Every 3 hours, PRN for Pain , Severe, Routine, 06/14/21 12:19:00 EST Start Date: 06/14/21 Stop Date: 06/21/21 Status: Ordered Lantus Solostar Pen 100 units/mL subcutaneous solution = 30 units, Subcutaneous Injection, Daily at bedtime, # 10 mL, 2 Refills, Maintenance, 06/16/21 15:25:00 EST, Injection, [facility]/pharmacy #[id number], Partial fill upon patient request if [...] drug. Start Date: 06/14/21 Status: Ordered oxyCODONE 20 mg oral tablet 1 tablet = 20 mg, By Mouth, Every 6 hours, PRN as needed for pain, for 7 days, # 30 tablet, 0 Refills, Acute 06/23/21 15:24:00 EST, 06/16/21 15:24:00 EST, Tablet, [facility]/pharmacy #[id number], Partial fill upon patient request if the prescription is for a sched... Start Date: 06/16/21 Stop Date: 06/23/21 Status: Ordered Problem List Condition Effective Dates Status Health Status Inform ant Dyslipidemia(Confirmed) Active Hx of abscess of breast(Confirmed) Active Hirsutism(Confirmed) Active Hypertension(Confirmed) Active Obese class I(Confirmed) Active Obesity(Confirmed) Active DM2 (diabetes mellitus, type 2)(Confirmed) Active Vitamin D deficiency(Confirmed) Active Procedures Procedure Date Related Diagnosis Body Site Status Ankle Surgery Completed section Complete d Umbilical hernia repair C ompleted Results Orders for Microbiology Reports Name Date Wound Deep Culture w/ Gram Smear (Cultur e Wound Deep w/ Gram Smear) 06/14/21 Microbiology Reports TEST:Deep Wound Culture STATUS:Auth (Verified) BODY SITE: SOURCE:ABSCES COLLECTED DATE/TIME:06/14/21 9:50 AM Deep Wound Culture SPECIMEN DESCRIPTION : ABSCESS PELVIS LT SPECIAL REQUESTS : NONE GRAM STAIN : 4+ POLYMORPHONUCLEAR LEUKOCYTES 3+ GRAM POSITIVE COCCI 2+ GRAM POSITIVE RODS 1+ GRAM NEGATIVE RODS CULTURE : 4+ ENTEROCOCCUS FAECALIS 3+ ENTEROCOCCUS AVIUM 1+ KLEBSIELLA PNEUMONIAE REPORT STATUS : FINAL 06/16/2021 ORGANISM 4+ ENTEROCOCCUS FAECALIS METHOD MIN. INHIB. CONC. (MCG/ML) AMPICILLIN SUSCEPTIBLE VANCOMYCIN SUSCEPTIBLE GENTAMICIN SYNERGY ACTIVE IN SYNERGY STREPTOMYCIN SYNERGY ACTIVE IN SYNERGY ORGANISM 3+ ENTEROCOCCUS AVIUM METHOD MIN. INHIB. CONC. (MCG/ML) AMPICILLIN SUSCEPTIBLE VANCOMYCIN SUSCEPTIBLE GENTAMICIN SYNERGY ACTIVE IN SYNERGY STREPTOMYCIN SYNERGY ACTIVE IN SYNERGY ORGANISM 1+ KLEBSIELLA PNEUMONIAE METHOD MIN. INHIB. CONC. (MCG/ML) AMPICILLIN RESISTANT AMPICILLIN/SULBACTAM SUSCEPTIBLE AMOXICILLIN/CLAVULAN SUSCEPTIBLE CEFAZOLIN SUSCEPTIBLE CEFEPIME SUSCEPTIBLE CEFTRIAXONE SUSCEPTIBLE CIPROFLOXACIN SUSCEPTIBLE ERTAPENEM SUSCEPTIBLE GENTAMICIN SUSCEPTIBLE LEVOFLOXACIN SUSCEPTIBLE MEROPENEM SUSCEPTIBLE PIPERACILLIN/TAZOBAC SUSCEPTIBLE TRIMETH/SULFAMETHOX SUSCEPTIBLE TETRACYCLINE RESISTANT Vital Signs Most recent to oldest [Reference Range]: 1 2 3 Height 166 cm (06/16/21 8:43 PM) 166 cm (06/16/21 2:25 PM) 166 cm (06/16/21 4:47 AM) Weight 83.4 kg (06/14/21 11:49 PM) 83.4 kg (06/14/21 9:27 PM) Oxygen Saturation [94-100 %] 99 % (06/16/21 8:43 PM) 98 % (06/16/21 2:25 PM) 93 % *L* (06/16/21 4:47 AM) Pulse Rate [55-90 bpm] 90 bpm (06/16/21 8:43 PM) 95 bpm *H* (06/16/21 2:25 PM) 84 bpm (06/16/21 4:47 AM) Body Mass Index [18.5-24.99] 30.27 *>HHI* (06/14/21 11:49 PM) 30.27 *>HHI* (06/14/21 9:27 PM) Blood Pressure [90-138/55-84 mm Hg] 124/70mm Hg (06/16/21 8:43 PM) 116/66mm Hg (06/16/21 2:25 PM) 119/66mm Hg (06/16/21 4:47 AM) Respiratory Rate [16-30 br/min] 18 br/min (06/16/21 9:04 PM) 19 br/min (06/16/21 8:43 PM) 18 br/min (06/16/21 5:29 PM) Temperature [96.8-100.4 DegF] 98.8 DegF (06/16/21 8:43 PM) 97.6 DegF (06/16/21 2:25 PM) 98.8 DegF (06/16/21 4:47 AM) Liters per Minute 0 L/min (06/13/21 5:52 PM) Mode of Delivery (Oxygen) Room air (06/16/21 8:43 PM) Room air (06/16/21 2:25 PM) Room air (06/16/21 4:47 AM) Blood pressure sites Arm, left (06/16/21 8:43 PM) Arm, right (06/16/21 2:25 PM) Arm, left (06/16/21 4:47 AM) Temperature Route Oral (06/16/21 8:43 PM) Oral (06/16/21 2:25 PM) Oral (06/16/21 4:47 AM) Dry Weight 83.3 kg (06/14/21 11:49 PM) Weight Obtained Via Bed scale (06/14/21 11:49 PM) Bed scale (06/14/21 9:27 PM) Dry Weight Obtained Via Bed scale (06/14/21 11:49 PM) Social History Social History Type Response Tobacco Use: 4 or less cigar ettes(less than 1/4 pack)/day in last 30 days. Sex
--- OUTSIDE RECORDS SUMMARY | 2024-05-09 09:14 | XMS_ITS | Continuity of Care Document ---
Author Organization [facility] Address [address] [place] [address]- Care Team Providers Care Medical Laboratory Technicians Name Role Phone Cruz Farooq Primary Care Physician Encounter [facility] Date(s): 03/05/24 - 04/04/24 [facility] [address] [place], [place] [address] Attending Physician: Trish Mejia Admitting Physician: Admtr, Trish Referring Physician: Admtr, Ar8 Allergies, Adverse Reactions, [...] 09/21/22 14:52:00 EST, Route to Pharmacy Electronically, [facility], Partial fill upon patient request [...] 0 Refills, Soft Stop, 12/16/22 14:29:00 EDT, [facility], Partial fill upon patient request if the prescriptionis for a schedule II opioid drug., 165.1, cm, 12/16... Start Date: 12/16/22 Status: Ordered fenofibrate 145 mg oral tablet 1 tablet = 145 mg, By Mouth, Daily, # 30 tablet, 0 Refills, Maintenance, 09/21/22 14:53:00 EST, Tablet, [facility], Partial fill upon patient request [...] 08/17/21 10:32:00 EST, Route to Pharmacy Electronically, [facility]/pharmacy #[id number], Partial fill upon patient request if the [...] Team Personnel Name: Rudy Huber RN Position: [facility] RN Member Role: Primary Care Nurse Name: Hasmukh Buckner RN Position: [facility] RN Member Role: Primary Care Nurse Name: Cruz Farooq Position: Reference Physician Member Role: PCP Address: Address: [address] [place] [address] [address] [place] [address] Name: Kya Sewell RN Position: [facility] SN RN Member Role: Primary Care Nurse [...] Care Nurse Care Team Related Persons Name: MICHELLEJUAN DIEGO AbrahamPHOENIX Address: [address] [place] [address] Name: LIDIA VAZQUEZ Address: home [address] [place] [address] Name: MONIQUE VERONICA Address: home [place] Name: ELEN VERONICA Address: home [address] [place] [address]
--- OUTSIDE RECORDS SUMMARY | 2024-05-09 09:14 | XMS_ITS | Continuity of Care Document ---
Author Organization [facility] Address Unknown Care Team Providers Care Family Centered Specialist Name Role Phone Maverick Pardo MD Primary Care Physician Encounter [facility] [place] Date(s): 08/18/21 - 08/25/21 [facility] Attending Physician: Elizabeth Olmstead [...] 07/17/21 10:44:00 EST, Route to Pharmacy Electronically, [facility]/pharmacy #[id number], Partial fill upon patient request [...] 08/03/21 15:12:00 EST, Route to Pharmacy Electronically, [facility], Partial fill uponpatient request if the prescription is for a schedu... Start Date: 08/03/21 Stop Date: 08/08/21 Status: Ordered Lantus Solostar Pen 100 units/mL subcutaneous solution = 30 units, Subcutaneous Injection, Daily at bedtime, # 10 mL, 2 Refills, Maintenance, 06/16/21 15:25:00 EST, Injection, [facility]/pharmacy #[id number], Partial fill upon patient request [...] drug. Start Date: 06/14/21 Status: Ordered [facility] Vitamin D3 2000IU, Daily, Refills 0, Maintenance, 07/12/21 9:32:00 EST, Supply Start Date: 07/12/21 Status: Ordered oxyCODONE 5 mg oral tablet 5 mg, 1, tablet, By Mouth, Every 6 hours, PRN, # 28 tablet, Refills 0, Tot. Refills 0, Maintenance,as needed for pain, 08/11/21 11:27:00 EST, Route to Pharmacy Electronically, [facility]/pharmacy #[id number], Partial fill upon patient request if the prescription... Start Date: 08/11/21 Status: Ordered oxyCODONE 5 mg oral tablet 5 mg, 1, tablet, By Mouth, Every 6 hours, PRN, # 28 tablet, Refills 0, Tot. Refills 0, Maintenance,as needed for pain, 08/17/21 10:32:00 EST, Route to Pharmacy Electronically, [facility]/pharmacy #[id number], Partial fill upon patient request [...]
--- OUTSIDE RECORDS SUMMARY | 2024-05-09 09:14 | XMS_ITS | Continuity of Care Document ---
Author Organization [facility] Address [address] [place] [address]- Care Team Providers Care [employer] Certified [employer] Associate Name Role Phone Cruz Farooq Primary Care Physician Encounter [facility] Date(s): 07/20/23 - 07/20/[address] [address]- Discharge Disposition: A-D/C Home Attending Physician: Alo Bullock MD Admitting Physician: Alo Bullock MD Referring Physician: Not on Staff, Referring [...] 09/21/22 14:52:00 EST, Route to Pharmacy Electronically, [facility], Partial fill upon patient [...] 0 Refills, Soft Stop, 12/16/22 14:29:00 EDT, [facility], Partial fill upon patient request if the prescriptionis for a schedule II opioid drug., 165.1, cm, 12/16... Start Date: 12/16/22 Status: Ordered fenofibrate 145 mg oral tablet 1 tablet = 145 mg, By Mouth, Daily, # 30 tablet, 0 Refills, Maintenance, 09/21/22 14:53:00 EST, Tablet, [facility], Partial fill upon patient [...] Moderate, and SBP greater than 100, Routine, 07/20/23 13:14:00 EST, Stop date Limited # of times Start Date: 07/20/23 Stop Date: 07/21/23 Status: Discontinued Mounjaro 5 mg/0.5 mL subcutaneous solution = [...] oral tablet 5 mg, Tablet, By Mouth, Once, STAT, 07/20/23 19:34:00 EST, Stop date 07/20/23 19:34:00 EST Start Date: 07/20/23 Stop Date: 07/20/23 Status: Completed oxyCODONE 5 mg oral tablet 5 mg, 1, tablet, By Mouth, 2 times a day, PRN, # 10 tablet, Refills 0, Tot. Refills 0, Acute 07/26/23 8:00:00 EST, for pain, 07/20/23 19:42:00 EST, Route to Pharmacy Electronically, [facility] [...] Exam Date Time Procedure Performing Provider Status 07/20/23 6:[address] Abd/Pelvis W/ Ora l Contrast Only Pedro Linneaadam; Auth (Verified) Notes: (CT Abd/Pelvis W/ Oral Contrast Only) Reason For Exam: Abd pain, unspecified;Other: RESULT: CT Abd/Pelvis W/ Oral Contrast Only CT Abd/Pelvis W/ Oral Contrast Only Hx of Present Illness: pt with incisional hernia c o lower abd wall and back pain pt is very uncomfortable is schedule for recontructions abd wall surgery 08 04 23, also c o headache; Reason: Other:; Abd pain, unspecified; Clinical Question(s): Obstruction; Special Instructions: IV contrast contraindicated; Order Comment: TECHNIQUE: Spiral CT through the abdomen and pelvis without IV contrast formatted in 3 planes. Thisstudy was performed without oral contrast. Weight- based protocol using automatic tube modulation was used to optimize exposure parameters. COMPARISON: July 03, 2023. FINDINGS: Financial Reporting Specialist View Findings, Lines and Tubes: None. Visualized Chest: Mild bibasilar atelectasis. No pleural or pericardial effusion. Diaphragm: Normal. Liver: Diffuse low-attenuation throughout the liver parenchyma consistent with hepatic steatosis. Hepatomegaly measuring 23.7 cm. No noncontrast evidence of mass. Gallbladder: No CT evidence of gallbladder pathology. Bile ducts: No biliary ductal dilation. Spleen: Normal. Accessory splenic tissue is incidentally noted. Pancreas: Normal. Adrenal glands: Mildly prominent adrenal glands without discrete nodule. Kidneys and ureters: No hydronephrosis, stones, or noncontrast evidence of suspicious masses. Bladder: Normal. Reproductive organs: Unremarkable. Stomach, small bowel, and large bowel: Normal caliber bowel loops without evidence of obstruction or acute inflammation. Oral contrast transits to the mid small bowel. Minimal distal colonic diverticulosis without acute diverticulitis. Appendix: Normal. Peritoneum and retroperitoneum: No ascites or pneumoperitoneum. No omental or mesenteric lesions. Lymph nodes: No enlarged lymph nodes. Blood vessels: Mild vascular calcifications but no aneurysm. Abdominal and pelvic wall: Similar appearance of a large ventral hernia containing nonobstructed small bowel loops, terminal ileum, cecum, appendix, and portions of the transverse colon. Presence of the cecum within the hernia sac is new when compared with the prior study. No associated inflammatory change or obstruction. Bones: No acute abnormality. IMPRESSION: Large ventral hernia containing nonobstructed large and small bowel loops. Cecum and appendix newlyenter the hernia sac when compared with the recent prior CT without evidence of associated inflammation or obstruction. Hepatic steatosis and hepatomegaly. WSN: [id number] Ordering Physician: Efe Moore MD Dictated By: Chauncey Betts MD Dictated Date/Time: 07/20/23 7:14 pm Reviewed By: Chauncey Betts MD Signed By: Chauncey Betts MD Signed Date/Time: 07/20/23 7:14 pm Transcribed By: CSCisco Transcribed Date/Time: 07/20/23 7:09 pm Vital Signs Most recent to oldest [Reference Range]: 1 2 3 Height 165 cm (07/20/23 6:51 PM) 165 cm (07/20/23 11:34 AM) 165 cm (07/20/23 10:38 AM) Weight 97.5 kg (07/20/23 6:51 PM) 97.5 kg (07/20/23 11:34 AM) 97.5 kg (07/20/23 10:38 AM) Oxygen Saturation [94-100 %] 98 % (07/20/23 6:51 PM) 99 % (07/20/23 10:38 AM) 100 % (07/20/23 10:32 AM) Pulse Rate [55-90 bpm] 86 bpm (07/20/23 6:51 PM) 107 bpm *H* (07/20/23 10:38 AM) 119 bpm *H* (07/20/23 10:32 AM) Body Mass Index [18.5-24.99 kg/m2] 35.81 kg/m2 *>HHI* (07/20/23 6:51 PM) 35.81 kg/m2 *>HHI* (07/20/23 10:38 AM) Blood Pressure [90-138/55-84 mm Hg] 126/90mm Hg (07/20/23 6:51 PM) 130/96mm Hg (07/20/23 10:38 AM) Respiratory Rate [16-30 br/min] 16 br/min (07/20/23 8:01 PM) 24 br/min (07/20/23 6:51 PM) 18 br/min (07/20/23 3:08 PM) Temperature [96.8-100.4 DegF] 98.5 DegF (07/20/23 10:38 AM) Mode of Delivery (Oxygen) Room air (07/20/23 6:51 PM) Room air (07/20/23 10:38 AM) Room air (07/20/23 10:32 AM) Blood pressure sites Arm, right (07/20/23 6:51 PM) Arm, right (07/20/23 10:38 AM) Temperature Route Oral (07/20/23 10:38 AM) Dry Weight 97.5 kg (07/20/23 6:51 PM) 97.5 kg (07/20/23 11:34 AM) 97.5 kg (07/20/23 10:38 AM) Weight Obtained Via Patient/family state d (07/20/23 10:38 AM) Dry Weight Obtained Via Patient/family s tated (07/20/23 10:38 AM) Social History Social History Type Response Smoking Status Former smoker, quit more than 30 days ago; Other: Quit several months ago; entered on: 02/07/23 Sex Female Note * Deanna Pearl NP: PERFORM, SIGN, VERIFY Event Display: Patient Education Handout Authored Date: [id number] Patient Care team information Care Team Personnel Name: .Adelita Garces RN Position: [facility] ED RN W/OE and Tasks Member Role: Primary Care Nurse Name: Rudy Huber RN Position: [facility] RN Member Role: Primary Care Nurse Name: Hasmukh Buckner RN Position: [facility] RN Member Role: Primary Care Nurse Name: Cruz Farooq Position: Reference Physician Member Role: PCP Address: Address: [address] [place] [address] [address] [place] [address] Name: Kay Sewell RN Position: [facility] SN RN Member Role: Primary Care Nurse Name: Valentin Parish RN Position: S RN Member Role: Primary Care Nurse Name: Faviola Irvin RN Position: [facility] RN Member Role: Primary Care Nurse Name: Jonathan Marquez RN Position: S RN Member Role: Primary Care Nurse Name: Eugenia Pichardo RN Position: S RN Member Role: Primary Care Nurse Name: Savannah Tyler RN Position: [facility] RN Member Role: Primary Care Nurse Name: Tayler Horn RN Position: [facility] RN Member Role: Primary Care Nurse Name: Francy Nava LPN Position: [facility] RN Member Role: Primary Care Nurse Name: Deanna Pearl NP Position: [facility] Associate Professional Member Role: Nurse Practitioner Address: Address: [address] [place] [address]- Name: Rudy Huber RN Position: [facility] ED RN W/OE and Tasks Member Role: Patient Care Provider Name: Margarita Lisa Position: [facility] TA [facility] Member Role: Adjuster Name: Alo Bullock MD Position: [facility] ED Medicine MD Member Role: Admitting Physician Address: Address: [address] [place] [address]- Care Team Related Persons Name: NICO FLORES Address: home [address] [place] [address] Name: LIDIA VAZQUEZ Address: [address] [place] [address] Name: MONIQUE VERONICA Address: home [place] Name: ELEN VERONICA Address: [address] [place] [address]
--- OUTSIDE RECORDS SUMMARY | 2024-05-09 09:14 | XMS_ITS | Continuity of Care Document ---
Author Organization [facility] Address Unknown Care Team Providers Care Integration Developer Name Role Phone Maverick Pardo MD Primary Care Physician [phone] Encounter [facility] Date(s): 10/05/21 - 11/04/21 [facility] Allergies, Adverse Reactions, Alerts [...] 9:56:00 EST, Route to Pharmacy Electronically, [facility]/pharmacy #[id number], Partial fill upon patient request if [...]
--- OUTSIDE RECORDS SUMMARY | 2024-05-09 09:14 | XMS_ITS | Continuity of Care Document ---
Author Organization [facility] ter Address [address] [place] [address]- Care Team Providers Care Information Management Manager Name Role Phone Cruz Farooq Primary Care Physician [phone] [place] [facility] [place] - 07/03/[address] [address]- Encounter Diagnosis Dizziness(Final) - 07/03/23 Discharge Disposition: A-D/C Home Attending Physician: Manjit Navas MD Admitting Physician: Manjit Navas MD Referring Physician: Not on Staff, Referring [...] 09/21/22 14:52:00 EST, Route to Pharmacy Electronically, [facility], Partial fill upon patient [...] 0 Refills, Soft Stop, 12/16/22 14:29:00 EDT, [facility] 3, Partial fill upon patient request if the prescriptionis for a schedule II opioid drug., 165.1, cm, 12/16... Start Date: 12/16/22 Status: Ordered fenofibrate 145 mg oral tablet 1 tablet = 145 mg, By Mouth, Daily, # 30 tablet, 0 Refills, Maintenance, 09/21/22 14:53:00 EST, Tablet, [facility] 3, Partial fill upon patient request [...] 08/17/21 10:32:00 EST, Route to Pharmacy Electronically, [facility]/pharmacy #[id number], Partial fill upon [...] Exam Date Time Procedure Performing Provider Status 07/03/23 6:[address] Abd/Pelvis W/ Ora l Contrast Only Afia Gayle; Auth (Verified) Notes: (CT Abd/Pelvis W/ Oral Contrast Only) Reason For Exam: Abd pain, unspecified;Other: RESULT: CT Abd/Pelvis W/ Oral Contrast Only CT Abd/Pelvis W/ Oral Contrast Only Refer to EMR; Hx of Present Illness: Abdominal pain. TECHNIQUE: Spiral CT through the abdomen and pelvis without IV contrast formatted in 3 planes. Thisstudy was performed with oral contrast. Weight-based protocol using automatic tube modulation was used to optimize exposure parameters. CTDIvol Body: 24.60 mGy, DLP Body: 1339 mGy*cm. COMPARISON: CT abdomen pelvis, 03/24/2022. FINDINGS: It Trainee View Findings, Lines and Tubes: None. Visualized Chest: Lung bases are clear. No pleural effusion. The heart is normal in size. No pericardial effusion. Diaphragm: Normal. Liver: The liver is enlarged and mildly low in attenuation suggesting steatosis. Gallbladder: No CT evidence of gallbladder pathology. Bile ducts: No biliary ductal dilation. Spleen: Normal. Pancreas: Normal. Adrenal glands: There is thickening of both adrenal glands without discrete nodule. Kidneys and ureters: No hydronephrosis, stones, or noncontrast evidence of suspicious masses. Bladder: Normal. Reproductive organs: The uterus is unremarkable. A 3 cm left ovarian cyst is noted. Stomach, small bowel, and large bowel: The stomach contains oral contrast, and is grossly unremarkable. The small bowel is normal in caliber. There is diastases of the rectus muscles with large wide neck anterior abdominal wall hernia containing small bowel loops and transverse colon, though there is no bowel obstruction. Suture line is seen along the sigmoid. Appendix: Normal. Peritoneum and retroperitoneum: No ascites or pneumoperitoneum. No omental or mesenteric lesions. Lymph nodes: No enlarged lymph nodes. Blood vessels: Moderate atherosclerotic vascular calcification. No aortic aneurysm. Abdominal and pelvic wall: Diastases of the rectus muscle with large ventral hernia containing small bowel, transverse colon, and fat. Hernia is larger than 2021. Bones: No acute abnormality. IMPRESSION: 1. No acute abnormality in the abdomen/pelvis. 2. There is diastases of the rectus muscles with large anterior abdominal wall hernia containing small bowel loops as well as the transverse colon. The heart is larger than 03/24/2022, though there is no bowel obstruction. 3. Enlarged liver with evidence of hepatic steatosis. 4. 3 cm left ovarian cyst. WSN: [id number] Ordering Physician: Mara Sousa Dictated By: Amara Matthews MD Dictated Date/Time: 07/03/23 6:56 pm Reviewed By: Amara Matthews MD Signed By: Amara Matthews MD Signed Date/Time: 07/03/23 6:56 pm Transcribed By: HAIDER Transcribed Date/Time: 07/03/23 6:49 pm * Exam Date Time Procedure Performing Provider Status 07/03/23 6:[address] Head/Brain W/O Contrast Ronda Gayle marie; Auth (Verified) Notes: (CT Head/Brain W/O Contrast) Reason For Exam: Vertigo RESULT: CT Head/Brain W/O Contrast CT Head/Brain W/O Contrast INDICATION/CLINICAL QUESTION: Dizziness/vertigo. TECHNIQUE: Noncontrast head CT using axial technique and reconstructed in axial and coronal plane. Age-based protocol was used to optimize exposure parameters. CTDIvol Head: 45.80 mGy, DLP Head: 773 mGy*cm. COMPARISON: CT, 12/01/2005. FINDINGS: The fourth ventricle is midline. The posterior fossa structures are unremarkable. The ventricles and sulci are normal in size. Aj-white differentiation is preserved without evidence of acute confluent lobar infarction. There is no hemorrhage, midline shift, or mass effect. No extra-axial collection is noted. The calvarium is intact. Sinuses and mastoids are clear. Orbits are grossly unremarkable. IMPRESSION: Normal. WSN: [id number] Ordering Physician: Mara Sousa Dictated By: Amara Matthews MD Dictated Date/Time: 07/03/23 6:49 pm Reviewed By: Amara Matthews MD Signed By: Amara Matthews MD Signed Date/Time: 07/03/23 6:49 pm Transcribed By: HAIDER Transcribed Date/Time: 07/03/23 6:48 pm Vital Signs Most recent to oldest [Reference Range]: 1 Height 166 cm (07/03/23 12:49 PM) Weight 96 kg (07/03/23 12:49 PM) Oxygen Saturation [94-100 %] 95 % (07/03/23 12:49 PM) Pulse Rate [55-90 bpm] 104 bpm *H* (07/03/23 12:49 PM) Body Mass Index [18.5-24.99 kg/m2] 34.84 kg/m2 *>HHI* (07/03/23 12:49 PM) Blood Pressure [90-138/55-84 mm Hg] 145/ 93mm Hg *H* (07/03/23 12:49 PM) Respiratory Rate [16-30 br/min] 18 br/mi n (07/03/23 12:49 PM) Temperature [96.8-100.4 DegF] 98.8 DegF (07/03/23 12:49 PM) Mode of Delivery (Oxygen) Room air (07/03/23 12:49 PM) Blood pressure sites Arm, right (07/03/23 12:49 PM) Temperature Route Oral (07/03/23 12:49 PM) Dry Weight 96 kg (07/03/23 12:49 PM) Weight Obtained Via Patient/family state d (07/03/23 12:49 PM) Dry Weight Obtained Via Patient/family s tated (07/03/23 12:49 PM) Social History Social History Type Response Smoking Status Former smoker, quit more than 30 days ago; Other: Quit several months ago; entered on: 02/07/23 Sex Female EKG study * Event Display: ECG 12-Lead Authored Date: [id number] Please click on pdf link to open report * Event Display: ECG 12-Lead Authored Date: [id number] Ventricular Rate: 95 BPM Atrial Rate: 95 BPM P-R Interval: 130 ms QRS Duration: 72 ms Q-T Interval: 366 ms QTC Calculation(Bazett): 459 ms P Sagle: 47 degrees R Sagle: 26 degrees T Sagle: 34 degrees Normal sinus rhythm Normal ECG When compared with ECG of 20-DEC-2022 17:09, No significant change was found Confirmed by MARIA GUADALUPE MONTERROSO MD ([id number]) on 07/03/2023 5:18:46 PM Moville: MARIA GUADALUPE MONTERROSO MD Note * Manjit Navas MD: PERFORM Event Display: Patient Education Leaflets Authored Date: [id number] Dizziness (Uncertain Cause) ?? [id number] Dizziness (Uncertain Cause) Dizziness is a common symptom. It may be described as lightheadedness, spinning, or feeling like you are going to faint. Dizziness can have many causes. Tell the healthcare provider about: ??? All medicines you take, including prescription, gfgk-oxv-txabthk, herbs, and supplements ??? Any other symptoms you have ??? Any health problems you are being treated for ??? Any past major health problems you've had, such as a heart attack, balance issues, hearing problems, or blood pressure problems ??? Anything that causes the dizziness to get worse or better Today's exam did not show an exact cause for your dizziness .??Other tests may be needed. Follow upwith your healthcare provider. Home care ??? Dizziness that occurs with sudden standing may be a sign of mild dehydration. Drink extra fluids for the next few days. ??? If you recently started a new medicine, stopped a medicine, or had the dose of a current medicine changed,??talk with the prescribing healthcare provider. Your medicine plan may need adjustment. ??? If dizziness lasts more than a few seconds, sit or lie down until it passes. This may help prevent injury in case you pass out. Get up slowly when you feel better. ??? Don't drive or use power tools or dangerous equipment until you have had no dizziness for at least 48 hours. ?? Follow-up care Follow up with your healthcare provider for further evaluation in the next 7 days, or as advised. ?? When to get medical advice Call your healthcare provider for any of the following: ??? Worsening of symptoms or new symptoms ??? Repeated vomiting ??? Headache ??? Vision or hearing changes Call 911 Call 911, right away if any of these occur: ??? Chest, arm, neck, back, or jaw pain ??? Weakness ofan arm or leg or one side of the face ??? Vomit or stool that's black or red ??? Shortness of breath ??? Feeling that your heart is fluttering or beating fast or hard (palpitations) ??? Passing out or seizure ??? Trouble walking or speaking ?? Last Reviewed Date: 2021 ?? 3318-4297 [employer]. All rights reserved. This information is not intended as a substitute for professional medical care. Always follow your healthcare professional's instructions. ?? * Manjit Navas MD: PERFORM Event Display: Patient Education Leaflets Authored Date: [id number] Vertigo (Unknown Cause) ?? [id number] Vertigo (Unknown Cause) Vertigo is a false feeling of motion. You aren't moving, but it feels as if you are. This feeling can be caused by problems in the inner ear. In addition to helping with hearing, the inner ear is part of the balance center of your body. When something affects the balance center, you can have vertigo. Often it feels as if you or the room are spinning. A vertigo attack may cause sudden nausea, vomiting, and heavy sweating. Severe vertigo causes a loss of balance and can make you fall. During vertigo, small head movements and changes in body position will often make the symptoms worse. You may also have ringing in the ears (tinnitus). An episode of vertigo may last seconds, minutes, or hours. Once you are over the first episode, it may never come back. But symptoms may return off and on. Often your provider will have you do certain head and body movements in the office to treat your vertigo. The cause of your vertigo is not yet known.??Possible causes of vertigo include: ??? Inner ear inflammation ??? Disease of the nerves to the inner ear ??? Movement of calcium particles in the inner ear ??? Poor blood flow to the balance centers of the brain ??? Migraine headaches??? In older adults, the use of more than one medicine along with some health conditions Home care ??? If symptoms are severe, rest quietly in bed. Change positions very slowly. There is often one position that will feel best. This may be lying on one side or lying on your back with yourhead slightly raised on pillows. Until you have no symptoms, you are at a higher risk of falling. Let someone help you when you get up. Get rid of home hazards such as loose electrical cords, clutter, toys on the floor, and throw rugs. Don???t walk in unfamiliar areas that are not lighted. Use night-lights in bathrooms and delmis. ??? Don't drive??a car??or work with dangerous machinery until symptoms have been gone for at least 1 week. ??? Take medicine as prescribed to ease your symptoms. Unless another medicine was prescribed for symptoms of nausea, vomiting, and dizziness, you may use nfnm-jvq-dmqddiz motion sickness pills.??If you have any questions about an mbxl-npp-dcsibpw medicineor its side effects, talk with your healthcare provider or pharmacist before taking it. Let your pharmacist know all of the other medicines you are taking and if you have any allergies to medicines. ?? Follow-up care Follow up with your healthcare provider as directed. If you are referred to a specialist or for testing, make the appointment right away. ?? When to get medical advice Call your healthcare provider if you have any of the following: ??? Fever of 100.4??F (38??C) or higher, or as directed by your healthcare provider ??? Vertigo gets worse or is not controlled by??prescribed??medicine? Repeated vomiting that doesn't stop after taking prescribed??medicine? Severe headache ??? Confusion ??? Trouble with vision ?? Call 911 Call 911 if any of these occur: ??? Feeling faint (loss of consciousness) ??? Seizure ??? Weakness of an arm, leg, or one side of the face ??? Trouble with speech ?? Last Reviewed Date: 2022 ?? 0386-2135 [employer]. All rights reserved. This information is not intended as a substitute for professional medical care. Always follow your healthcare professional's instructions. ?? Patient Care team information Care Team Personnel Name: .Adelita Garces RN Position: [facility] ED RN W/OE and Tasks Member Role: Primary Care Nurse Name: Rudy Huber RN Position: [facility] RN Member Role: Primary Care Nurse Name: Hasmukh Buckner RN Position: [facility] RN Member Role: Primary Care Nurse Name: Cruz Farooq Position: Reference Physician Member Role: PCP Address: Address: [address] [place] [address] [place] [address] Name: Kay Sewell RN Position: [facility] SN RN Member Role: Primary Care Nurse Name: Valentin Parish RN Position: [facility] RN Member Role: Primary Care Nurse Name: Faviola Irvin RN Position: [facility] RN Member Role: Primary Care Nurse Name: Jonathan Marquez RN Position: [facility] RN Member Role: Primary Care Nurse Name: Eugenia Pichardo RN Position: [facility] RN Member Role: Primary Care Nurse Name: Savannah Tyler RN Position: [facility] RN Member Role: Primary Care Nurse Name: Tayler Horn RN Position: [facility] RN Member Role: Primary Care Nurse Name: Francy Nava LPN Position: [facility] RN Member Role: Primary Care Nurse Name: Belgica Andre Position: [facility] RACHID DANIELS Name: Talita Amin RN Position: [facility] ED RN W/OE and Tasks Member Role: Patient Care Provider Name: Manjit Navas MD Position: [facility] ED Medicine MD Member Role: Admitting Physician Address: Address: [address] [place] [address]- Care Team Related Persons Name: MICHELLENICO Abraham Address: home [address] [place] [address] Name: LIDIA VAZQUEZ Address: home [address] [place] [address] Name: MONIQUE VERONICA Address: home UNK Name: ELEN VERONICA Address: home [address] [place] [address]
--- OUTSIDE RECORDS SUMMARY | 2024-05-09 09:14 | XMS_ITS | Continuity of Care Document ---
Author Organization [facility] Address [address] [place] [address]- Care Team Providers Care Management Development Specialist Name Role Phone Maverick Pardo MD Primary Care Physician [phone] [place] [facility] [place]13[place] 08/12/21 [facility] On[facility] [address] [place] [address] Attending Physician: Trish Mejia Admitting Physician: [...] drug. Start Date: 06/14/21 Status: Ordered Augmentin 500 mg-125 mg oral tablet 1 tablet, By Mouth, Every 12 hours, for 10 days, # 20 tablet, 0 Refills, Acute 08/22/21 14:35:00 EST, 08/12/21 14:35:00 EST, Tablet, [facility]/pharmacy #[id number], Partial fill upon patient request if the prescription is for a schedule II opioid drug., 165.1, cm... Start Date: 08/12/21 Stop Date: 08/22/21 Status: Ordered Colace sodium 100 mg oral capsule 100 mg, 1, capsule, By Mouth, 2 times a day, PRN, # 20 capsule, Refills 0, Tot. Refills 0, Maintenance, for constipation, 07/17/21 10:44:00 EST, Route to Pharmacy Electronically, [facility]/pharmacy #[id number], Partial fill upon patient request if the prescriptio... Start Date: 07/17/21 Status: Ordered gabapentin 300 mg oral capsule 300 mg, 1, capsule, By Mouth, 3 times a day, # 15 capsule, Refills 0, Tot. Refills 0, Maintenance, 08/03/21 15:12:00 EST, Route to Pharmacy Electronically, [facility], Partial fill uponpatient request if the prescription is for a schedu... Start Date: 08/03/21 Stop Date: 08/08/21 Status: Ordered Lantus Solostar Pen 100 units/mL subcutaneous solution = 30 units, Subcutaneous Injection, Daily at bedtime, # 10 mL, 2 Refills, Maintenance, 06/16/21 15:25:00 EST, Injection, [facility]/pharmacy #[id number], Partial fill upon patient [...] opioid drug. Start Date: 06/14/21 Status: Ordered [facility] Rx Vitamin D3 2000IU, Daily, Refills 0, Maintenance, 07/12/21 9:32:00 EST, Supply Start Date: 07/12/21 Status: Ordered oxyCODONE 5 mg oral tablet 5 mg, 1, tablet, By Mouth, Every 6 hours, PRN, # 28 tablet, Refills 0, Tot. Refills 0, Maintenance,as needed for pain, 08/11/21 11:27:00 EST, Route to Pharmacy Electronically, [facility]/pharmacy #[id number], Partial fill upon patient request if the prescription... Start Date: 08/11/21 Status: Ordered Problem List Condition Effective Dates [...]
--- OUTSIDE RECORDS SUMMARY | 2024-05-09 09:14 | XMS_ITS | Continuity of Care Document ---
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 Software Engineer Name Role Phone Cruz Farooq Primary Care Physician Encounter [facility] [place] Date(s): 07/19/23 - 08/18/23 [facility] [address] [place], [place] [address] Attending Physician: Trish Mejia Admitting Physician: AdmtrTrish Referring Physician: Admtr, ArJavier Allergies, Adverse Reactions, Alerts Substance Reaction Severity [...] 09/21/22 14:52:00 EST, Route to Pharmacy Electronically, [facility], Partial fill upon patient [...] 0 Refills, Soft Stop, 12/16/22 14:29:00 EDT, [facility] 3, Partial fill upon patient request if the prescriptionis for a schedule II opioid drug., 165.1, cm, 12/16... Start Date: 12/16/22 Status: Ordered fenofibrate 145 mg oral tablet 1 tablet = 145 mg, By Mouth, Daily, # 30 tablet, 0 Refills, Maintenance, 09/21/22 14:53:00 EST, Tablet, [facility] 3, Partial fill upon patient [...] 07/25/23 23:29:00 EST, Route to Pharmacy Electronically, [facility]/pharmacy #[id number], Partial fill upon patient request if the prescri... Start Date: 07/25/23 Stop Date: 08/25/23 Status: Ordered oxyCODONE 5 mg oral tablet 5 mg, 1, tablet, By Mouth, Every 6 hours, PRN, # 28 tablet, Refills 0, Tot. Refills 0, Maintenance,as needed for pain, 08/17/21 10:32:00 EST, Route to Pharmacy Electronically, [facility]/pharmacy #[id number], Partial fill upon patient request if the [...] Team Personnel Name: .Adelita Garces RN Position: [facility] ED RN W/OE and Tasks Member Role: Primary Care Nurse Name: Rudy Huber RN Position: S RN Member Role: Primary Care Nurse Name: Hasmukh Buckner RN Position: S RN Member Role: Primary Care Nurse Name: Cruz Farooq Position: Reference Physician Member Role: PCP Address: Address: [address] [place] [address] [address] [place], [place] [address] Name: Kay Sewell RN Position: [facility] RN Member Role: Primary Care Nurse Name: Valentin Parish RN Position: S RN Member Role: Primary Care Nurse Name: Faviola Irvin RN Position: S RN Member Role: Primary Care Nurse Name: Jonathan Marquez RN Position: S RN Member Role: Primary Care Nurse Name: Eugenia Pichardo RN Position: [facility] RN Member Role: Primary Care Nurse Name: Savannah Tyler RN Position: [facility] RN Member Role: Primary Care Nurse Name: Tayler Horn RN Position: [facility] RN Member Role: Primary Care Nurse Name: Francy Nava LPN Position: [facility] RN Member Role: Primary Care Nurse Care Team Related Persons Name: NICO FLORES Address: home [address] [place] [address] Name: LIDAI VAZQUEZ Address: home [address] [place] [address] Name: MONIQUE VERONICA Address: home [place] Name: ELEN VERONICA Address: home [address] [place] [address]
--- OUTSIDE RECORDS SUMMARY | 2024-05-09 09:14 | XMS_ITS | Continuity of Care Document ---
Author Organization [facility] Address [address] [place] [address]- Care Team Providers Care Sales Promotion Officer Name Role Phone Cruz Farooq Primary Care Physician [phone] [place] [facility] [place]s): 03/05/24 - 03/12/24 [facility] [address] [place], [place] [address] Attending Physician: Caty Spears MD Allergies, Adverse [...] 09/21/22 14:52:00 EST, Route to Pharmacy Electronically, [facility], Partial fill upon patient request [...] 0 Refills, Soft Stop, 12/16/22 14:29:00 EDT, [facility], Partial fill upon patient request if the prescriptionis for a schedule II opioid drug., 165.1, cm, 12/16... Start Date: 12/16/22 Status: Ordered fenofibrate 145 mg oral tablet 1 tablet = 145 mg, By Mouth, Daily, # 30 tablet, 0 Refills, Maintenance, 09/21/22 14:53:00 EST, Tablet, [facility], Partial fill upon [...] opioid drug. Start Date: 09/21/22 Status: Ordered [facility] Rx 50,0000 units, By [...] 08/17/21 10:32:00 EST, Route to Pharmacy Electronically, [facility]/pharmacy #[id number], Partial fill upon patient request if the [...] recent to oldest [Reference Range]: 1 Height 163 cm (03/05/24 3:26 PM) Weight 97.8 kg (03/05/24 3:26 PM) Oxygen Saturation [94-100 %] 100 % (03/05/24 3:26 PM) Pulse Rate [55-90 bpm] 92 bpm *H* (03/05/24 3:26 PM) Body Mass Index [18.5-24.99 kg/m2] 36.81 kg/m2 *>HHI* (03/05/24 3:26 PM) Blood Pressure [90-138/55-84 mm Hg] 129/ 98mm Hg (03/05/24 3:26 PM) Mode of Delivery (Oxygen) Room air (03/05/24 3:26 PM) Blood pressure sites Arm, left (03/05/24 3:26 PM) Weight Obtained Via Bed scale (03/05/24 3:26 PM) Social History Social History Type Response Smoking Status Former smoker, quit more than 30 days ago; Other: Quit several months ago; entered on: 02/07/23 Sex Female Patient Care team information Care Team Personnel Name: Rudy Huber RN Position: [facility] RN Member Role: Primary Care Nurse Name: Hasmukh Buckner RN Position: [facility] RN Member Role: Primary Care Nurse Name: Cruz Farooq Position: Reference Physician Member Role: PCP Address: Address: [address] [place] [address]- Name: Kay Sewell RN Position: [facility] SN RN Member Role: Primary Care Nurse Name: Valentin Parish RN Position: S RN Member Role: Primary Care Nurse Name: Faviola Irvin RN Position: [facility] RN Member Role: Primary Care Nurse Name: Jonathan Marquez RN Position: [facility] RN Member Role: Primary Care Nurse Name: Eugenia Pichardo RN Position: [facility] RN Member Role: Primary Care Nurse Name: Savannah Tyler RN Position: [facility] RN Member Role: Primary Care Nurse Name: Tayler Horn RN Position: [facility] RN Member Role: Primary Care Nurse Name: Francy Nava LPN Position: [facility] RN Member Role: Primary Care Nurse Care Team Related Persons Name: NICO FLORES Address: [address] [place] [address] Name: LIDIA VAZQUEZ Address: [address] [place] [address] Name: MONIQUE VERONICA Address: home [place] Name: ELEN VERONICA Address: home [address] [place] [address]
--- OUTSIDE RECORDS SUMMARY | 2024-05-09 09:14 | XMS_ITS | Continuity of Care Document ---
Author Organization [facility] Address Unknown Care Team Providers Care College Basketball Coach Name Role Phone Maverick Pardo MD Primary Care Physician Encounter [facility] Date(s): 08/13/21 - 08/20/21 [facility] Attending Physician: Not on Staff, [...] 08/22/21 14:35:00 EST, 08/12/21 14:35:00 EST, Tablet, [facility]/pharmacy #[id number], Partial fill upon patient request if the prescription is for a schedule II opioid drug., 165.1, cm... Start Date: 08/12/21 Stop Date: 08/22/21 Status: Ordered Colace sodium 100 mg oral capsule 100 mg, 1, capsule, By Mouth, 2 times a day, PRN, # 20 capsule, Refills 0, Tot. Refills 0, Maintenance, for constipation, 07/17/21 10:44:00 EST, Route to Pharmacy Electronically, [facility]/pharmacy #[id number], Partial fill upon patient request if the prescriptio... Start Date: 07/17/21 Status: Ordered gabapentin 300 mg oral capsule 300 mg, 1, capsule, By Mouth, 3 times a day, # 15 capsule, Refills 0, Tot. Refills 0, Maintenance, 08/03/21 15:12:00 EST, Route to Pharmacy Electronically, [facility], Partial fill uponpatient request if the prescription is for a schedu... Start Date: 08/03/21 Stop Date: 08/08/21 Status: Ordered Lantus Solostar Pen 100 units/mL subcutaneous solution = 30 units, Subcutaneous Injection, Daily at bedtime, # 10 mL, 2 Refills, Maintenance, 06/16/21 15:25:00 EST, Injection, [facility]/pharmacy #[id number], Partial fill upon patient request [...] opioid drug. Start Date: 06/14/21 Status: Ordered [facility] Rx Vitamin D3 2000IU, Daily, Refills 0, Maintenance, 07/12/21 9:32:00 EST, Supply Start Date: 07/12/21 Status: Ordered oxyCODONE 5 mg oral tablet 5 mg, 1, tablet, By Mouth, Every 6 hours, PRN, # 28 tablet, Refills 0, Tot. Refills 0, Maintenance,as needed for pain, 08/11/21 11:27:00 EST, Route to Pharmacy Electronically, [facility]/pharmacy #[id number], Partial fill upon patient request if the prescription... Start Date: 08/11/21 Status: Ordered oxyCODONE 5 mg oral tablet 5 mg, 1, tablet, By Mouth, Every 6 hours, PRN, # 28 tablet, Refills 0, Tot. Refills 0, Maintenance,as needed for pain, 08/17/21 10:32:00 EST, [id number] Partial fill upon patient request if [...]
--- OUTSIDE RECORDS SUMMARY | 2024-05-09 09:15 | XMS_ITS | Continuity of Care Document ---
Author Organization [facility] ter Address [address] [place] [address]- Care Team Providers Care Picture Booker Name Role Phone Cruz Farooq Primary Care Physician [phone] Encounter [facility] [place] Date(s): 12/20/22 - 12/20/[address] [address]- Discharge Disposition: A-D/C Home Attending Physician: David Mcgee MD Admitting Physician: David Mcgee MD Referring Physician: Not on Staff, Referring [...] EST, Route to Pharmacy Electronically, [facility], Partial fill upon patient [...] Soft Stop, 12/16/22 14:29:00 EDT, [facility], Partial fill upon patient request if the prescriptionis for a schedule II opioid drug., 165.1, cm, 12/16... Start Date: 12/16/22 Status: Ordered fenofibrate 145 mg oral tablet 1 tablet = 145 mg, By Mouth, Daily, # 30 tablet, 0 Refills, Maintenance, 09/21/22 14:53:00 EST, Tablet, [facility], Partial fill upon patient [...] to Pharmacy Electronically, [facility]/pharmacy #[id number], Partial fill upon patient request if the [...] Exam Date Time Procedure Performing Provider Status 12/20/22 6:54 PM Chest 2 Views Frontal and Lat Kyle Steve as , Moinque E; Auth (Verified) Notes: (Chest 2 Views Frontal and Lat) Reason For Exam: Angina RESULT: Chest 2 Views Frontal and Lat PROCEDURE: Chest 2 Views Frontal and Lat INDICATION: 47 years old Female with Hx of Present Illness: Pt reports chest pain , shortness of breath and fast heart rate, pt had a ct scan done on 12 16 and is waiting for results. Pt was instructed to come to ED for continued elevated fast heart rate.; Reason: Angina; Clinical Question(s): CHF. COMPARISON: Chest radiographs 2016 through September 20, 2022. FINDINGS: PA and lateral upright views of the chest obtained. Lines and tubes:Several EKG leads project over the chest. Lungs and pleura: Lungs are clear. No pleural effusions.No evidence of pneumothorax. Heart, mediastinum and franky: The cardiomediastinal silhouette and pulmonary vasculature are unremarkable. No cardiomegaly or pulmonary venous hypertension. Bones and soft tissues: No other demonstrable abnormality. IMPRESSION: 1. No evidence of acute cardiopulmonary disease. Thank you for allowing me to participate in the care of this patient. WSN: [id number] Ordering Physician: Helder Zeng Dictated By: Nicolas Larkin MD Dictated Date/Time: 12/20/22 6:58 pm Reviewed By: Nicolas Larkin MD Signed By: Nicolas Larkin MD Signed Date/Time: 12/20/22 6:58 pm Transcribed By: HAIDER Transcribed Date/Time: 12/20/22 6:57 pm Vital Signs Most recent to oldest [Reference Range]: 1 2 3 Oxygen Saturation [94-100 %] 97 % (12/20/22 9:11 PM) 100 % (12/20/22 8:11 PM) 100 % (12/20/22 5:32 PM) Pulse Rate [55-90 bpm] 102 bpm *H* (12/20/22 9:11 PM) 99 bpm *H* (12/20/22 8:11 PM) 111 bpm *H* (12/20/22 5:32 PM) Blood Pressure [90-138/55-84 mm Hg] 129/107mm Hg (12/20/22 9:11 PM) 134/90mm Hg (12/20/22 8:11 PM) 149/109mm Hg *H* (12/20/22 5:32 PM) Respiratory Rate [16-30 br/min] 22 br/min (12/20/22 9:11 PM) 22 br/min (12/20/22 8:11 PM) 20 br/min (12/20/22 5:32 PM) Temperature [96.8-100.4 DegF] 97.9 DegF (12/20/22 5:32 PM) 98.6 DegF (12/20/22 4:54 PM) Mode of Delivery (Oxygen) Room air (12/20/22 9:11 PM) Room air (12/20/22 8:11 PM) Room air (12/20/22 5:32 PM) Blood pressure sites Arm, left (12/20/22 9:11 PM) Arm, left (12/20/22 8:11 PM) Arm, left (12/20/22 5:32 PM) Temperature Route Oral (12/20/22 5:32 PM) Oral (12/20/22 4:54 PM) Social History Social History Type Response Tobacco Use: 4 or less cigar ettes(less than 1/4 pack)/day in last 30 days. Other: Quit 3 weeks ago. Sex Note * Helder Zeng DO: PERFORM Event Display: Patient Education Leaflets Authored Date: [id number] Heart Palpitations ?? [id number] Heart Palpitations Palpitations are the feeling that your heart is beating hard, fast, or irregular. Some describe it as pounding, flip-flopping in the chest, or skipped beats. Palpitations may occur in someone with heart disease. But they can also occur in a healthy person. Heart-related causes: ??? Heart rhythm problem (arrhythmia) ??? Heart valve disease ??? Disease of the heart muscle (cardiomyopathy) ??? Coronary artery disease ??? High blood pressure Ixi-wmmwr-rlydmkr causes: ??? Certain medicines such as asthma inhalers and decongestants ??? Some herbal supplements, energydrinks and pills, and weight loss pills ??? Illegal stimulant drugs such as cocaine, crank, methamphetamine, PCP, and ecstasy ??? Caffeine, alcohol, and tobacco ??? Health conditions such as thyroid disease, anemia, anxiety, and panic disorder Sometimes the cause can't be found. Home care Follow these home care tips: ??? Don't use too much caffeine, alcohol, or tobacco, or any stimulantdrugs. ??? Tell your doctor about any prescription or ughx-tar-idxxaes or herbal medicines you take. ?? Follow-up care ??? Follow up with your doctor, or as advised. ?? Call 911 This is the fastest and safest way to get to the emergency department. The paramedics can also start treatment on the way to the hospital, if needed. Don't wait until your symptoms are severe to call 911. These are reasons to call 911: ??? Chest pain ??? Shortness of breath ??? Feeling lightheaded, faint, or dizzy, or losing consciousness ??? Veryirregular heartbeat ??? Rapid heartbeat that makes you uncomfortable ??? Slower than usual heart rate along with symptoms ??? Chest pain with weakness, dizziness,??heavy sweating, nausea, or vomiting??? Extreme drowsiness, confusion, or weakness ??? Weakness of an arm or leg, or on one side of theface ??? Trouble with speech or vision ?? When to seek medical advice Call your healthcare provider right away if you have palpitations that last longer than normal, or are different from your past palpitations. ?? Last Reviewed Date: 2021 ?? [id number] The [employer]. All rights reserved. This information is not intended as a substitute for professional medical care. Always follow your healthcare professional's instructions. ?? Laboratory * [facility] , CIS S: TRANSCRISHAHLA Larkin MD, Nicolas Becerril: VERIFY Event Display: Result: Authored Date: [id number] PROCEDURE: Chest 2 Views Frontal and Lat INDICATION: 47 years old Female with Hx of Present Illness: Pt reports chest pain , shortness of breath and fast heart rate, pt had a ct scan done on 12 16 and is waiting for results. Pt was instructed to come to ED for continued elevated fast heart rate.; Reason: Angina; Clinical Question(s): CHF. COMPARISON: Chest radiographs 2016 through September 20, 2022. FINDINGS: PA and lateral upright views of the chest obtained. Lines and tubes:Several EKG leads project over the chest. Lungs and pleura: Lungs are clear. No pleural effusions.No evidence of pneumothorax. Heart, mediastinum and franky: The cardiomediastinal silhouette and pulmonary vasculature are unremarkable. No cardiomegaly or pulmonary venous hypertension. Bones and soft tissues: No other demonstrable abnormality. IMPRESSION: 1. No evidence of acute cardiopulmonary disease. Thank you for allowing me to participate in the care of this patient. WSN: [id number] Ordering Physician: Helder Zeng Dictated By: Nicolas Larkin MD Dictated Date/Time: 12/20/22 6:58 pm Reviewed By: Nicolas Larkin MD Signed By: Nicolas Larkin MD Signed Date/Time: 12/20/22 6:58 pm Transcribed By: HAIDER Transcribed Date/Time: 12/20/22 6:57 pm Patient Care team information Care Team Personnel Name: Adelita Castillo RN Position: [facility] ED RN W/OE and Tasks Member Role: Primary Care Nurse Name: Rudy Huber RN Position: [facility] RN Member Role: Primary Care Nurse Name: Hasmukh Buckner RN Position: S RN Member Role: Primary Care Nurse Name: Cruz Farooq Position: Reference Physician Member Role: PCP Address: Address: [address] [place] [address] Name: Kay Sewell RN Position: [facility] RN Member Role: Primary Care Nurse Name: Valentin Parish RN Position: [facility] RN Member Role: Primary Care Nurse Name: Faviola Irvin RN Position: [facility] RN Member Role: Primary Care Nurse Name: Jonathan Marquez RN Position: [facility] RN Member Role: Primary Care Nurse Name: Eugenia Pichardo RN Position: [facility] RN Member Role: Primary Care Nurse Name: Savannah Tyler RN Position: S RN Member Role: Primary Care Nurse Name: Tayler Horn RN Position: S RN Member Role: Primary Care Nurse Name: Francy Nava LPN Position: S RN Member Role: Primary Care Nurse Name: Adelita Inman Position: [facility] ED RN W/OE and Tasks Member Role: Patient Care Provider Name: Arlin López Position: [facility] ED RN W/OE and Tasks Member Role: Patient Care Provider Name: Helder Zeng DO Position: S Resident Member Role: Resident Address: Address: [address] [place] [address], [place] [address]- Name: Kamran Silva Position: [facility] ED TA [facility] Member Role: Cigarette And Filter Chief Inspector Name: David Mcgee MD Position: [facility] ED Medicine MD Member Role: Admitting Physician Address: Address: [address] [place] [address]- Care Team Related Persons Name: JUAN DIEGO FLORESPHOENIX Address: [address] [place] [address] Name: LIDIA VAZQUEZ Address: [address] [place] [address] Name: MONIQUE VERONICA Address: home [place] Name: ELEN VERONICA Address: [address] [place] [address]
--- OUTSIDE RECORDS SUMMARY | 2024-05-09 09:15 | XMS_ITS | Continuity of Care Document ---
Author Organization [facility] Address Unknown Care Team Providers Care Head Of Quality Name Role Phone Maverick Pardo MD Primary Care Physician [phone] [place] [facility] [place](s): 06/21/21 - 07/21/21 [facility] Allergies, Adverse Reactions, Alerts Substance [...] 07/17/21 10:44:00 EST, Route to Pharmacy Electronically, [facility]/pharmacy #[id number], Partial fill upon patient request if the prescriptio... Start Date: 07/17/21 Status: Ordered Lantus Solostar Pen 100 units/mL subcutaneous solution = 30 units, Subcutaneous Injection, Daily at bedtime, # 10 mL, 2 Refills, Maintenance, 06/16/21 15:25:00 EST, Injection, [facility]/pharmacy #[id number], Partial fill upon patient request [...] opioid drug. Start Date: 06/14/21 Status: Ordered [facility] Rx Vitamin D3 2000IU, Daily, Refills 0, Maintenance, 07/12/21 9:32:00 EST, Supply Start Date: 07/12/21 Status: Ordered oxyCODONE 5 mg oral tablet 5 mg, 1, tablet, By Mouth, Every 6 hours, PRN, # 16 tablet, Refills 0, Tot. Refills 0, Maintenance,for pain, 06/29/21 13:03:00 EST, Route to Pharmacy Electronically, [facility]/pharmacy #[id number], Partial fillupon patient request if the prescription [...]
--- OUTSIDE RECORDS SUMMARY | 2024-05-09 09:15 | XMS_ITS | Continuity of Care Document ---
Author Organization [facility] Address [address] [place] [address] [address] [place] [address]- Care Team Providers Care Salicylic Acid Blender Name Role Phone Cruz Farooq Primary Care Physician [phone] [place] [facility] [place]11/22 [facility] [address] [place] [address]- Attending Physician: Caty Spears MD Allergies, Adverse [...] 09/21/22 14:52:00 EST, Route to Pharmacy Electronically, [facility], Partial fill upon patient [...] Tablet, [facility], Partial fill upon patient [...] 10:32:00 EST, Route to Pharmacy Electronically, [facility]/pharmacy #[id number], Partial fill upon patient request if the [...] oldest [Reference Range]: 1 Height 165.1 cm (10/04/22 9:38 AM) Weight 96.6 kg (10/04/22 9:38 AM) Pulse Rate [55-90 bpm] 102 bpm *H* (10/04/22 9:38 AM) Body Mass Index [18.5-24.99 kg/m2] 35.44 kg/m2 *>HHI* (10/04/22 9:38 AM) Blood Pressure [90-138/55-84 mm Hg] 124/ 78mm Hg (10/04/22 9:38 AM) Respiratory Rate [16-30 br/min] 18 br/mi n (10/04/22 9:38 AM) Temperature [96.8-100.4 DegF] 97.1 DegF (10/04/22 9:38 AM) Blood pressure sites Arm, left (10/04/22 9:38 AM) Temperature Route Temporal (10/04/22 9:38 AM) Weight Obtained Via Standing scale (10/04/22 9:38 AM) Social History Social History Type Response Tobacco Use: 4 or less cigar ettes(less than 1/4 pack)/day in last 30 days. Other: Quit 3 weeks ago. Sex Note * Yasmeen Farmer [place]: PERFORM, SIGN, VERIFY Event Display: Patient Education/Instruction Authored Date: [id number] [facility] *[facility] Gen Surg Clinical Summary Name ROC PANDA Age 47 Years 1975 PCP Cruz Farooq PCP Visit Date 10/04/2022 09:22:00 Additional Instructions: Scheduled Appointments?? Future Appointments ?*OPS??Cardiology ?[address] ?[place],??[place],??[id number] ?Phone:??--?Fax:??-- ?Appt. Date:??12/07/2022?3:40 PM ?Scheduled Provider:??Lizandro KEY, Gaby ?*BSA??Plastic [address]??[place],??[place],??[address] ?Phone:??--?Fax:??-- ?Appt. Date:??12/09/2022?11:20 AM ?Scheduled Provider:??Funmi MCKEON , Yaya Becerril Follow-Up Instructions ?? Diagnosis Medications: Please continue your medications until treatment is completed or stopped by your provider. Discuss any questions related to medications with your provider. Medications to Continue with No Changes These medications were not printed or sent to your pharmacy Acetaminophen (acetaminophen 325 mg oral tablet) 3 tab(s) Oral every 6 hours as needed Pain , Mild. Next Dose: Acetaminophen/Codeine (Tylenol with Codeine #4) 1 tab(s) Oral every 6 hours. Next Dose: Amlodipine (amLODIPine 5 mg oral tablet) 1 tab(s) Oral Daily. Next Dose: Aspirin (aspirin 81 mg oral delayed release tablet) 1 tab(s) Oral Daily. Refills: 1. Next Dose: Atorvastatin (atorvastatin 40 mg oral tablet) 2 tab(s) Oral Daily in the morning. Next Dose: Durable Medical Equipment (10cm medipore tape) use as needed for daily dressing changes. 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 Refills: 1. Next Dose: Durable Medical Equipment (15cm Q tip applicators) use as needed for daily dressing changes. 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 Refills: 1. Next Dose: Durable Medical Equipment (3 inch medipore tape) use with daily packing. 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 Refills: 1. Next Dose: Durable Medical Equipment (4 x 4 super sponge) use 1 super sponge. Lightly pack abdomen wound daily. cover with sponge. 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 Refills: 1. Next Dose: Durable Medical Equipment (ABDOMINAL BINDER) DIAGNOSIS: VENTRAL HERNIA Please custom fit patient for abdominal binder. Refills: 0. Next Dose: Durable Medical Equipment (super sponges) use as needed for daily dressing changes. 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 Refills: 1. Next Dose: Durable Medical Equipment (suture removal kits) use as needed for daily dressing changes. 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 Refills: 0. Next Dose: Fenofibrate (fenofibrate 145 mg oral tablet) 1 tab(s) Oral Daily. Refills: 0. Next Dose: Fluticasone-Salmeterol (Advair Diskus 250 mcg-50 mcg inhalation powder) 1 inhalation Inhalation Daily. rinse mouth and throat after use. Next Dose: GlipiZIDE (glipiZIDE 5 mg oral tablet) 1 tab(s) Oral Daily. Next Dose: Insulin Glargine (Lantus Solostar Pen 100 units/mL subcutaneous solution) INJECT 47 UNIT (0.47 ML) SUBCUTANEOUSLY EVERY EVENING FOR 30 DAYS. Next Dose: Lisinopril (lisinopril 2.5 mg oral tablet) 1 tab(s) Oral Daily. Next Dose: Miscellaneous Rx (Misc Rx) 50,0000 units Oral Daily. vitamin d3. Next Dose: Nicotine (Nicorette 2 mg oral transmucosal gum) 1 Each Chew every 2 hours as needed as needed for smoking cessation. Next Dose: Oxycodone (oxyCODONE 5 mg oral tablet) 1 tab(s) Oral every 6 hours as needed as needed for pain. Refills: 0. Next Dose: Allergy Info:?? Latex; Contrast Dye; Adhesive Bandage; Omnipaque 350 Medications Given This Visit Future Orders ?No future orders Vital Signs Height 165.1 cm Weight 96.6 kg BMI 35.44 kg/m2 Blood Pressure 124 mm Hg/78 mm Hg Temperature 97.1 DegF Pulse Rate 102 bpm Respiratory Rate 18 br/min 02 Sat Mode of Delivery / You can now view a summary of your hospital visit from the comfort of your home through a free online portal called [employer]. [employer] is a website that allows you to securely view your medical information including discharge summary, medications and follow-up visits. ??You can alsosend a secure electronic message to your doctor???s office to request appointments, renew medications or just ask a question. You can enroll at [email or web address] or register during your next office visit. Disclaimer:?? The information provided is of a general nature and is intended to be used in conjunction with the recommendations and advice of your health care practitioner. ??Every effort has been made to ensure that the information provided is accurate and complete at the time it is provided to you however, as your needs change, or, as new ??information becomes available, different or additional instructions may be required. If you have questions, please consult with your primary care provider or pharmacist, as appropriate. ??This information is not intended to serve as substitution for assessment and evaluation by a qualified health care provider. If you do not have a primary care provider, you may find a [facility] provider by calling [facility] [employer] Link at [phone]. For information about the plan of care including goals and instructions for your diagnosis, please see the patient education orders section of this document. Patient Education Materials?? The content of this educational material or handout may have been modified, supplemented, or adapted from its original content and format to support your individualized medical care. Please follow instructions discussed with your provider during this visit as well as any education documents you were given today. Patient Care team information Care Team Personnel Name: Rudy Huber RN Position: S RN Member Role: Primary Care Nurse Name: Hasmukh Buckner RN Position: S RN Member Role: Primary Care Nurse Name: Cruz Farooq Position: Reference Physician Member Role: PCP Address: Address: [address] [place] [address] [address] [place], [place] [address] Name: Kay Sewell RN Position: S [...] Care Nurse Care Team Related Persons Name: ISIDORONICO FRANKLIN Address: home [address] [place] [address] Name: LIDIA VAZQUEZ Address: home [address] [place] [address] Name: MONIQUE VERONICA Address: home UNK Name: ELEN VERONICA Address: home [address] [place] [address]
--- OUTSIDE RECORDS SUMMARY | 2024-05-09 09:15 | XMS_ITS | Continuity of Care Document ---
Author Organization Pre Op Overflow Address [address] [place] [address]- Care Team Providers Care Glass Bead Maker Name Role Phone Cruz Farooq Primary Care Physician Encounter [facility] [facility] R [id number] Date(s): 07/19/23 - 07/26/23 Pre [facility] [address] [place] [id number] Attending Physician: Parveen Benitez DO Referring Physician: Regan MCKEON, Caty Perez Allergies, Adverse Reactions, Alerts Substance Reaction Severity [...] 09/21/22 14:52:00 EST, Route to Pharmacy Electronically, [facility], Partial fill upon patient [...] 0 Refills, Soft Stop, 12/16/22 14:29:00 EDT, [facility], Partial fill upon patient request if the prescriptionis for a schedule II opioid drug., 165.1, cm, 12/16... Start Date: 12/16/22 Status: Ordered fenofibrate 145 mg oral tablet 1 tablet = 145 mg, By Mouth, Daily, # 30 tablet, 0 Refills, Maintenance, 09/21/22 14:53:00 EST, Tablet, [facility], Partial fill upon patient [...] 07/25/23 23:29:00 EST, Route to Pharmacy Electronically, [facility]/pharmacy #[id number], Partial fill upon patient request if the prescri... Start Date: 07/25/23 Stop Date: 08/25/23 Status: Ordered oxyCODONE 5 mg oral tablet 5 mg, 1, tablet, By Mouth, Every 6 hours, PRN, # 28 tablet, Refills 0, Tot. Refills 0, Maintenance,as needed for pain, 08/17/21 10:32:00 EST, Route to Pharmacy Electronically, [facility]/pharmacy #[id number], Partial fill upon patient request if the [...] Confirmed Active Vitamin D deficiency Confirmed Active Procedures Procedure Date Related Diagnosis Body Site Status Cervical mass excision Co mpleted Sigmoid colectomy 1 Compl eted 1Diverticular abscess Vital Signs Most recent to oldest [Reference Range]: 1 2 Height 170 cm (07/19/23 2:06 PM) 166 cm (07/19/23 10:26 AM) Weight 106.4 kg (07/19/23 2:06 PM) 98 kg (07/19/23 10:26 AM) Oxygen Saturation [94-100 %] 100 % (07/19/23 2:06 PM) 100 % (07/19/23 10:26 AM) Pulse Rate [55-90 bpm] 50 bpm *L* (07/19/23 2:06 PM) 105 bpm *H* (12/27/23 10:26 AM) Body Mass Index [18.5-24.99 kg/m2] 36.82 kg/m2 *>HHI* (07/19/23 2:06 PM) 35.56 kg/m2 *>HHI* (07/19/23 10:26 AM) Blood Pressure [90-138/55-84 mm Hg] 117/ 54mm Hg (07/19/23 2:06 PM) 140/92mm Hg *H* (07/19/23 10:26 AM) Respiratory Rate [16-30 br/min] 18 br/mi n (07/19/23 2:06 PM) 18 br/min (07/19/23 10:26 AM) Mode of Delivery (Oxygen) Room air (07/19/23 2:06 PM) Room air (07/19/23 10:26 AM) Blood pressure sites Arm, right (07/19/23 2:06 PM) Arm, right (07/19/23 10:26 AM) Weight Obtained Via Standing scale (07/19/23 2:06 PM) Standing scale (07/19/23 10:26 AM) Social History Social History Type Response Smoking Status Former smoker, quit more than 30 days ago; Other: Quit several months ago; entered on: 02/07/23 Sex Female EKG study * Event Display: ECG 12-Lead Authored Date: Please click on pdf link to open report * Event Display: ECG 12-Lead Authored Date: Ventricular Rate: 98 BPM Atrial Rate: 98 BPM P-R Interval: 122 ms QRS Duration: 72 ms Q-T Interval: 356 ms QTC Calculation(Bazett): 454 ms P [place]: 46 degrees R [place]: 19 degrees T [place]: 18 degrees Normal sinus rhythm Normal ECG When compared with ECG of 03-JUL-2023 12:59, No significant change was found Confirmed by CHAPO PONCE MD ([id number]) on 07/19/2023 12:06:02 PM Ben Wheeler: CHAPO PONCE MD Patient Care team information Care Team Personnel Name: Adelita Castillo RN Position: [facility] ED RN W/OE and Tasks Member Role: Primary Care Nurse Name: Rudy Huber RN Position: [facility] RN Member Role: Primary Care Nurse Name: Hasmukh Buckner RN Position: S RN Member Role: Primary Care Nurse Name: Cruz Farooq Position: Reference Physician Member Role: PCP Address: Address: [address] [facility] [address] [place] [address]- Name: Kay Sewell RN Position: [facility] SN RN Member Role: Primary Care Nurse Name: Valentin Parish RN Position: [facility] RN Member Role: Primary Care Nurse Name: Faviola Irvin RN Position: [facility] RN Member Role: Primary Care Nurse Name: Jonathan Marquez RN Position: [facility] RN Member Role: Primary Care Nurse Name: Eugenia Pichardo RN Position: [facility] RN Member Role: Primary Care Nurse Name: Savannah Tyler RN Position: [facility] RN Member Role: Primary Care Nurse Name: Tayler Horn RN Position: [facility] RN Member Role: Primary Care Nurse Name: Francy Nava LPN Position: [facility] RN Member Role: Primary Care Nurse Care Team Related Persons Name: NICO FLORES Address: home [address] [place] [address] Name: LIDIA VAZQUEZ Address: home [address] [place] [address] Name: MONIQUE VERONICA Address: home UNK Name: ELEN VERONICA Address: home [address] [place] [address]
--- OUTSIDE RECORDS SUMMARY | 2024-05-09 09:15 | XMS_ITS | Continuity of Care Document ---
Demographics Address [address] [place] [address] Mobile Email Address [email or web address] OM Preferred Language Tamazight Marital Status Single Church Affiliation None Race White Ethnic Group or Author Organization [facility] Surgical As sociates Address Unknown Care Team Providers Care Applications Project Manager Name Role Phone Maverick Pardo MD Primary Care Physician Encounter [facility] [place] Date(s): 01/17/22 - 02/16/[address] [facility] Allergies, Adverse Reactions, Alerts [...] 09/06/21 9:56:00 EST, Route to Pharmacy Electronically, [facility]/pharmacy #[id number], Partial fill upon [...]
--- OUTSIDE RECORDS SUMMARY | 2024-05-09 09:15 | XMS_ITS | Continuity of Care Document ---
Author Organization [facility] sociates Address Unknown Care Team Providers Care Document Design Specialist Name Role Phone Maverick Pardo MD Primary Care Physician Encounter [facility] Date(s): 10/19/21 - 10/26/21 [facility] Attending Physician: Elizabeth Olmstead [...] 09/06/21 9:56:00 EST, Route to Pharmacy Electronically, [facility]/pharmacy #[id number], Partial fill upon patient [...] 08/11/21 11:27:00 EST, Route to Pharmacy Electronically, [facility]/pharmacy #[id number], Partial fill upon patient [...]
--- OUTSIDE RECORDS SUMMARY | 2024-05-09 09:15 | XMS_ITS | Continuity of Care Document ---
Author Organization [facility] Surgical As sociates Address Unknown Care Team Providers Care Fraud Prevention Analyst Name Role Phone Maverick Prado MD Primary Care Physician [phone] Encounter [facility] [place] Date(s): 07/02/21 - 07/09/21 [facility] Attending Physician: Elizabeth Olmstead MD Allergies, Adverse Reactions, [...] 2 Refills, Maintenance, 06/16/21 15:25:00 EST, Injection, [facility]/pharmacy #[id number], Partial fill upon patient request if the [...] 06/29/21 13:03:00 EST, Route to Pharmacy Electronically, [facility]/pharmacy #[id number], Partial fillupon patient request if the prescription [...] oldest [Reference Range]: 1 Height 166 cm (07/02/21 9:03 AM) Weight 95.1 kg (07/02/21 9:03 AM) Body Mass Index [18.5-24.99] 34.51 *>HHI* (07/02/21 9:03 AM) Blood Pressure [90-138/55-84 mm Hg] 139/ 95mm Hg *H* (07/02/21 9:03 AM) Temperature [96.8-100.4 DegF] 97.0 DegF (07/02/21 9:03 AM) Social History Social History Type Response Tobacco Use: 4 or less cigar ettes(less than 1/4 pack)/day in last 30 days. Sex
--- OUTSIDE RECORDS SUMMARY | 2024-05-09 09:15 | XMS_ITS | Continuity of Care Document ---
Author Organization [facility] Address Unknown Care Team Providers Care Real Estate Investor Name Role Phone Maverick Pardo MD Primary Care Physician [phone] [place] [facility] [place]09[place] 12/09/21 [facility] Attending Physician: Trish Mejia Admitting Physician: Trish [...] 09/06/21 9:56:00 EST, Route to Pharmacy Electronically, [facility]/pharmacy #[id number], Partial fill upon patient request if the prescription... Start Date: 09/06/21 Stop Date: 04/04/22 Status: Ordered Colace sodium 100 mg oral capsule 100 mg, 1, capsule, By Mouth, 2 times a day, PRN, # 20 capsule, Refills 0, Tot. Refills 0, Maintenance, for constipation, 07/17/21 10:44:00 EST, Route to Pharmacy Electronically, [facility]/pharmacy #[id number], Partial fill upon patient [...]
--- OUTSIDE RECORDS SUMMARY | 2024-05-09 09:15 | XMS_ITS | Continuity of Care Document ---
Author Organization [facility] Torrie clair Address [address] [place] [address] [address] [place] [address]- Care Team Providers Care Platform Material Handling Supervisor Name Role Phone Cruz Farooq Primary Care Physician [place] [facility] [place]23 - 04/28/23 [facility] [address] [place] [address]- Allergies, Adverse Reactions, Alerts Substance Reaction Severity [...] 09/21/22 14:52:00 EST, Route to Pharmacy Electronically, [facility], Partial fill upon patient [...] 0 Refills, Soft Stop, 12/16/22 14:29:00 EDT, [facility] 3, Partial fill upon patient request if the prescriptionis for a schedule II opioid drug., 165.1, cm, 12/16... Start Date: 12/16/22 Status: Ordered fenofibrate 145 mg oral tablet 1 tablet = 145 mg, By Mouth, Daily, # 30 tablet, 0 Refills, Maintenance, 09/21/22 14:53:00 EST, Tablet, [facility] 3, Partial fill upon patient [...] 08/17/21 10:32:00 EST, Route to Pharmacy Electronically, [facility]/pharmacy #[id number], Partial fill upon patient request if the [...] Team Personnel Name: Adelita Castillo RN Position: [facility] ED RN W/OE and Tasks Member Role: Primary Care Nurse Name: Rudy Huber RN Position: [facility] RN Member Role: Primary Care Nurse Name: Hasmukh Buckner RN Position: [facility] RN Member Role: Primary Care Nurse Name: Cruz Farooq Position: Reference Physician Member Role: PCP Address: Address: [address] [facility] [address] [place] [address]- Name: Kay Sewell RN Position: [facility] RN Member Role: Primary Care Nurse Name: Valentin Parish RN Position: S RN Member Role: Primary Care Nurse Name: Faviola Irvin RN Position: S RN Member Role: Primary Care Nurse Name: Jonathan Marquez RN Position: [facility] RN Member Role: Primary Care Nurse Name: Eugenia Pichardo RN Position: S RN Member Role: Primary Care Nurse Name: Savannah Tyler RN Position: S RN Member Role: Primary Care Nurse Name: Tayler Horn RN Position: S RN Member Role: Primary Care Nurse Name: Francy Nava LPN Position: [facility] RN Member Role: Primary Care Nurse Care Team Related Persons Name: JUAN DIEGO FLORESPHOENIX Address: home [address] [place] [address] Name: LIDIA VAZQUEZ Address: [address] [place] [address] Name: MONIQUE VERONICA Address: home UNK Name: ELEN VERONICA Address: home [address] [place] [address]
--- OUTSIDE RECORDS SUMMARY | 2024-05-09 09:15 | XMS_ITS | Continuity of Care Document ---
Author Organization [facility] Address Unknown Care Team Providers Care Metal Plater Name Role Phone Edvin MCKEON, Maverick Lugo Primary Care Physician Encounter [facility] [place] Date(s): 08/10/21 - 08/17/21 [facility] Attending Physician: Elizabeth Olmstead [...] 08/22/21 14:35:00 EST, 08/12/21 14:35:00 EST, Tablet, [facility]/pharmacy #[id number], Partial fill upon patient request if the prescription is for a schedule II opioid drug., 165.1, cm... Start Date: 08/12/21 Stop Date: 08/22/21 Status: Ordered Colace sodium 100 mg oral capsule 100 mg, 1, capsule, By Mouth, 2 times a day, PRN, # 20 capsule, Refills 0, Tot. Refills 0, Maintenance, for constipation, 07/17/21 10:44:00 EST, Route to Pharmacy Electronically, [facility]/pharmacy #[id number], Partial fill upon patient request if the prescriptio... Start Date: 07/17/21 Status: Ordered gabapentin 300 mg oral capsule 300 mg, 1, capsule, By Mouth, 3 times a day, # 15 capsule, Refills 0, Tot. Refills 0, Maintenance, 08/03/21 15:12:00 EST, Route to Pharmacy Electronically, [facility], Partial fill uponpatient request if the prescription is for a schedu... Start Date: 08/03/21 Stop Date: 08/08/21 Status: Ordered Lantus Solostar Pen 100 units/mL subcutaneous solution = 30 units, Subcutaneous Injection, Daily at bedtime, # 10 mL, 2 Refills, Maintenance, 06/16/21 15:25:00 EST, Injection, [facility]/pharmacy #[id number], Partial fill upon patient [...] opioid drug. Start Date: 06/14/21 Status: Ordered [facility] Rx Vitamin D3 2000IU, Daily, Refills 0, Maintenance, 07/12/21 9:32:00 EST, Supply Start Date: 07/12/21 Status: Ordered oxyCODONE 5 mg oral tablet 5 mg, 1, tablet, By Mouth, Every 6 hours, PRN, # 28 tablet, Refills 0, Tot. Refills 0, Maintenance,as needed for pain, 08/11/21 11:27:00 EST, Route to Pharmacy Electronically, [facility]/pharmacy #[id number], Partial fill upon patient request if the prescription... Start Date: 08/11/21 Status: Ordered oxyCODONE 5 mg oral tablet 5 mg, 1, tablet, By Mouth, Every 6 hours, PRN, # 28 tablet, Refills 0, Tot. Refills 0, Maintenance,as needed for pain, 08/17/21 10:32:00 EST, Route to Pharmacy Electronically, [facility]/pharmacy #[id number], Partial fill upon patient request if the [...]
--- OUTSIDE RECORDS SUMMARY | 2024-05-09 09:15 | XMS_ITS | Continuity of Care Document ---
Author Organization [facility] clair Address [address] [place] [address] Dri ve [address] [place] [address]- Care Team Providers Care Relay Tester Name Role Phone Cruz Farooq Primary Care Physician [facility] Date(s): 12/27/22 - 01/03/23 [facility] [address] [place], [place] [address] Attending Physician: Yolanda Martinez MD Referring Physician: Caty Spears MD Allergies, Adverse Reactions, [...] 09/21/22 14:52:00 EST, Route to Pharmacy Electronically, [facility], Partial fill upon [...] 0 Refills, Soft Stop, 12/16/22 14:29:00 EDT, [facility], Partial fill upon patient request if the prescriptionis for a schedule II opioid drug., 165.1, cm, 12/16... Start Date: 12/16/22 Status: Ordered fenofibrate 145 mg oral tablet 1 tablet = 145 mg, By Mouth, Daily, # 30 tablet, 0 Refills, Maintenance, 09/21/22 14:53:00 EST, Tablet, [facility], Partial fill upon [...] oldest [Reference Range]: 1 Height 165.1 cm (12/27/22 10:57 AM) Weight 92 kg (12/27/22 10:57 AM) Body Mass Index [18.5-24.99 kg/m2] 33.75 kg/m2 *>HHI* (12/27/22 10:57 AM) Dry Weight 92 kg (12/27/22 10:57 AM) Dry Weight Obtained Via Standing scale (12/27/22 10:57 AM) Social History Social History Type Response Tobacco Use: 4 or less cigar ettes(less than 1/4 pack)/day in last 30 days. Other: Quit 3 weeks ago. Sex Female Patient Care team information Care Team Personnel Name: .Adelita Garces RN Position: [facility] ED RN W/OE and Tasks Member Role: Primary Care Nurse Name: Rudy Huber RN Position: S RN Member Role: Primary Care Nurse Name: Hasmukh Buckner RN Position: S RN Member Role: Primary Care Nurse Name: Cruz Farooq Position: Reference Physician Member Role: PCP Address: Address: [address] [place] [address] [address] [place] [id number] Name: Kay Sewell RN Position: [facility] RN Member Role: Primary Care Nurse Name: Valentin Parish RN Position: [facility] RN Member Role: Primary Care Nurse Name: Faviola Irvin RN Position: S RN Member Role: Primary Care Nurse Name: Jonathan Marquez RN Position: S RN Member Role: Primary Care Nurse Name: Eugenia Pichardo RN Position: [facility] RN Member Role: Primary Care Nurse Name: Savannah Tyler RN Position: S RN Member Role: Primary Care Nurse Name: Tayler Horn RN Position: S RN Member Role: Primary Care Nurse Name: Francy Nava LPN Position: [facility] RN Member Role: Primary Care Nurse Care Team Related Persons Name: NICO FLORES Address: home [address] [place] [address] Name: LIDIA VAZQUEZ Address: home [address] [place] [address] Name: MONIQUE VERONICA Address: home UNK Name: ELEN VERONICA Address: home [address] [place] [address]
--- OUTSIDE RECORDS SUMMARY | 2024-05-09 09:15 | XMS_ITS | Continuity of Care Document ---
Author Organization [facility] Address Unknown Care Team Providers Care Service Delivery Management Consultant Name Role Phone Maverick Pardo MD Primary Care Physician [place] [facility] [place]): [place]21 - 09/11/21 [facility] Attending Physician: Elizabeth Olmstead [...] 09/06/21 9:56:00 EST, Route to Pharmacy Electronically, [facility]/pharmacy #[id number], Partial fill upon patient [...] 09/06/21 9:56:00 EST, Route to Pharmacy Electronically, [facility]/pharmacy #[id number], Partial fill upon patien... [...] EST, Route to Pharmacy Electronically, [facility]/pharmacy #[id number], Partial fill upon patient [...]
--- OUTSIDE RECORDS SUMMARY | 2024-05-09 09:16 | XMS_ITS | Continuity of Care Document ---
Author Organization [facility] Address Unknown Care Team Providers Care Winder Operator Name Role Phone Maverick Pardo MD Primary Care Physician [place] [facility] [place] 08/12/21 - 09/11/21 [facility] Allergies, Adverse Reactions, Alerts [...] 09/06/21 9:56:00 EST, Route to Pharmacy Electronically, [facility]/pharmacy #[id number], Partial fill upon patient [...] 2 Refills, Maintenance, 06/16/21 15:25:00 EST, Injection, [facility]/pharmacy #[id number], Partial fill upon patient [...] 09/06/21 9:56:00 EST, Route to Pharmacy Electronically, [facility]/pharmacy #[id number], Partial fill upon patien... [...] 08/17/21 10:32:00 EST, Route to Pharmacy Electronically, [facility]/pharmacy #[id number], Partial fill upon patient request if the prescription... Start Date: 08/17/21 Status: Ordered Readi-Cat 2 oral suspension See Instructions, Readi-cat 2 2 bottle 450 mL Dx:, # 900 mL, 0 Refills, Maintenance, 09/01/21 13:18:00 EST, [facility]/pharmacy #[id number], Partial fill upon patient [...]
--- OUTSIDE RECORDS SUMMARY | 2024-05-09 09:16 | XMS_ITS | Continuity of Care Document ---
Author Organization [facility] Address Unknown Care Team Providers Care Taker Down Name Role Phone Maverick Pardo MD Primary Care Physician [phone] [facility] [place]06[place]21 - 08/05/21 [facility] Allergies, Adverse Reactions, Alerts [...] 07/17/21 10:44:00 EST, Route to Pharmacy Electronically, [facility]/pharmacy #[id number], Partial fill upon patient request if the prescriptio... Start Date: 07/17/21 Status: Ordered gabapentin 300 mg oral capsule 300 mg, 1, capsule, By Mouth, 3 times a day, # 15 capsule, Refills 0, Tot. Refills 0, Maintenance, 08/03/21 15:12:00 EST, Route to Pharmacy Electronically, [facility], Partial fill uponpatient request if the prescription is for a schedu... Start Date: 08/03/21 Stop Date: 08/08/21 Status: Ordered Lantus Solostar Pen 100 units/mL subcutaneous solution = 30 units, Subcutaneous Injection, Daily at bedtime, # 10 mL, 2 Refills, Maintenance, 06/16/21 15:25:00 EST, Injection, [facility]/pharmacy #[id number], Partial fill upon patient request [...] opioid drug. Start Date: 06/14/21 Status: Ordered [facility] Rx Vitamin D3 2000IU, Daily, Refills 0, Maintenance, 07/12/21 9:32:00 EST, Supply Start Date: 07/12/21 Status: Ordered oxyCODONE 5 mg oral tablet 10 mg, 2, tablet, By Mouth, Every 6 hours, PRN, for 5 days, # 40 tablet, Refills 0, Tot. Refills 0,Acute 08/08/21 15:13:00 EST, Pain , Moderate, 08/03/21 15:13:00 EST, Route to Pharmacy Electronically, [facility], Partial fill upon leslee... [...]
--- OUTSIDE RECORDS SUMMARY | 2024-05-09 09:16 | XMS_ITS | Continuity of Care Document ---
Author Organization [facility] Address [address] [place] [address] [address] [place] [address]- Care Team Providers Care Nursing Technician Name Role Phone Cruz Farooq Primary Care Physician [facility]counter [facility] Date(s): 08/29/23 - 09/28/[address] [place], [place] [address] Attending Physician: Admtr, Trish Admitting Physician: Admtr, Piyush8 Referring Physician: Admtr, Ar8 Allergies, Adverse Reactions, [...] 09/21/22 14:52:00 EST, Route to Pharmacy Electronically, [facility], Partial fill upon patient [...] 0 Refills, Soft Stop, 12/16/22 14:29:00 EDT, [facility], Partial fill upon patient request if the prescriptionis for a schedule II opioid drug., 165.1, cm, 12/16... Start Date: 12/16/22 Status: Ordered fenofibrate 145 mg oral tablet 1 tablet = 145 mg, By Mouth, Daily, # 30 tablet, 0 Refills, Maintenance, 09/21/22 14:53:00 EST, Tablet, [facility], Partial fill upon patient [...] 08/17/21 10:32:00 EST, Route to Pharmacy Electronically, [facility]/pharmacy #[id number], Partial fill upon patient request if the [...] Team Personnel Name: Adelita Castillo RN Position: [facility] ED RN W/OE and Tasks Member Role: Primary Care Nurse Name: Rudy Huber RN Position: [facility] RN Member Role: Primary Care Nurse Name: Hasmukh Buckner RN Position: [facility] RN Member Role: Primary Care Nurse Name: Cruz Farooq Position: Reference Physician Member Role: PCP Address: Address: [address] [place] [address] [address] [place] [address]- Name: Kay Sewell RN Position: [facility] SN RN Member Role: Primary Care Nurse Name: Valentin Parish RN Position: [facility] RN Member Role: Primary Care Nurse Name: Faviola Irvin RN Position: S RN Member Role: Primary Care Nurse Name: Jonathan Marquez RN Position: S RN Member Role: Primary Care Nurse Name: Eugenia Pichardo RN Position: [facility] RN Member Role: Primary Care Nurse Name: Savannah Tyler RN Position: S RN Member Role: Primary Care Nurse Name: Tayler Horn RN Position: S RN Member Role: Primary Care Nurse Name: Francy Nava LPN Position: S RN Member Role: Primary Care Nurse Care Team Related Persons Name: ISIDORONASIRLeigh NICO Address: home [address] [place] [address] Name: LIDIA VAZQUEZ Address: [address] [place] [address] Name: MONIQUE VERONICA Address: home UNK Name: ELEN VERONICA Address: home [address] [place] [address]
--- OUTSIDE RECORDS SUMMARY | 2024-05-09 09:16 | XMS_ITS | Continuity of Care Document ---
Author Organization [facility] Address [address] [place] [address] ve [address] [place] [address]- Care Team Providers Care Sample Steamer Name Role Phone Cruz Farooq Primary Care Physician [phone] Encounter [facility] Date(s): 02/07/23 - 02/14/[address] [place] [address]- Attending Physician: Caty Spears MD Referring Physician: [...] 09/21/22 14:52:00 EST, Route to Pharmacy Electronically, [facility], Partial fill upon patient request [...] 0 Refills, Soft Stop, 12/16/22 14:29:00 EDT, [facility], Partial fill upon patient request if the prescriptionis for a schedule II opioid drug., 165.1, cm, 12/16... Start Date: 12/16/22 Status: Ordered fenofibrate 145 mg oral tablet 1 tablet = 145 mg, By Mouth, Daily, # 30 tablet, 0 Refills, Maintenance, 09/21/22 14:53:00 EST, Tablet, [facility], Partial fill upon patient request [...] EST, Route to Pharmacy Electronically, [facility]/pharmacy #[id number], Partial fill upon patient request if the [...] oldest [Reference Range]: 1 Height 165.1 cm (02/07/23 11:40 AM) Weight 94.4 kg (02/07/23 11:40 AM) Pulse Rate [55-90 bpm] 96 bpm *H* (02/07/23 11:40 AM) Body Mass Index [18.5-24.99 kg/m2] 34.63 kg/m2 *>HHI* (02/07/23 11:40 AM) Blood Pressure [90-138/55-84 mm Hg] 132/ 84mm Hg (02/07/23 11:40 AM) Respiratory Rate [16-30 br/min] 18 br/mi n (02/07/23 11:40 AM) Temperature [96.8-100.4 DegF] 97.6 DegF (02/07/23 11:40 AM) Blood pressure sites Arm, right (02/07/23 11:40 AM) Temperature Route Temporal (02/07/23 11:40 AM) Weight Obtained Via Standing scale (02/07/23 11:40 AM) Social History Social History Type Response Smoking Status Former smoker, quit more than 30 days ago; Other: Quit several months ago; entered on: 02/07/23 Sex Female Patient Care team information Care Team Personnel Name: Adelita Castillo RN Position: [facility] ED RN W/OE and Tasks Member Role: Primary Care Nurse Name: Rudy Huber RN Position: S RN Member Role: Primary Care Nurse Name: Hasmukh Buckner RN Position: S RN Member Role: Primary Care Nurse Name: Cruz Farooq Position: Reference Physician Member Role: PCP Address: Address: [address] [place] [address] [place] [id number] Name: Kay Sewell RN Position: S RN Member Role: Primary Care Nurse Name: Valentin Parish RN Position: [facility] RN Member Role: Primary Care Nurse Name: Faviola Irvin RN Position: S RN Member Role: Primary Care Nurse Name: Jonathan Marquez RN Position: S RN Member Role: Primary Care Nurse Name: Eugenia Pichardo RN Position: S RN Member Role: Primary Care Nurse Name: Savannah Tyler RN Position: [facility] RN Member Role: Primary Care Nurse Name: Tayler Horn RN Position: S RN Member Role: Primary Care Nurse Name: Francy Nava LPN Position: S RN Member Role: Primary Care Nurse Care Team Related Persons Name: NICO FLORES Address: home [address] [place] [address] Name: LIDIA VAZQUEZ Address: [address] [place] [address] Name: MONIQUE VERONICA Address: home UNK Name: ELEN VERONICA Address: home [address] [place] [address]
--- OUTSIDE RECORDS SUMMARY | 2024-05-09 09:16 | XMS_ITS | Continuity of Care Document ---
Author Organization [facility] Address Unknown Care Team Providers Care Liquid Floor And Wall Applier Name Role Phone Maverick Pardo MD Primary Care Physician Encounter [facility] Date(s): 08/27/21 - 09/03/21 [facility] Attending Physician: Elizabeth Olmstead MD [...] 07/17/21 10:44:00 EST, Route to Pharmacy Electronically, [facility]/pharmacy #[id number], Partial fill upon patient [...]
--- OUTSIDE RECORDS SUMMARY | 2024-05-09 09:16 | XMS_ITS | Continuity of Care Document ---
Author Organization [facility] Address [address] [place] [address] [address] [place] [address]- Care Team Providers Care Computing Machine Operator Name Role Phone Cruz Farooq Primary Care Physician Encounter [facility] Date(s): 03/14/23 - 04/13/23 [facility] [address] [place] [address]- Allergies, Adverse Reactions, Alerts Substance Reaction Severity [...] 09/21/22 14:52:00 EST, Route to Pharmacy Electronically, [facility], Partial fill upon patient request [...] 0 Refills, Soft Stop, 12/16/22 14:29:00 EDT, [facility] 3, Partial fill upon patient request if the prescriptionis for a schedule II opioid drug., 165.1, cm, 12/16... Start Date: 12/16/22 Status: Ordered fenofibrate 145 mg oral tablet 1 tablet = 145 mg, By Mouth, Daily, # 30 tablet, 0 Refills, Maintenance, 09/21/22 14:53:00 EST, Tablet, [facility] 3, Partial fill upon patient request [...] 08/17/21 10:32:00 EST, Route to Pharmacy Electronically, [facility]/pharmacy #[id number], Partial fill upon patient request if the [...] Physician Member Role: PCP Address: Address: [address] [facility] [address] [place] [address]- Name: Kay Sewell RN Position: [facility] RN [...] Name: JUAN DIEGO FLORES[place]OENIX Address: home [address] [place] [address] Name: LIDIA VAZQUEZ Address: [address] [place] [address] Name: MONIQUE VERONICA Address: home UNK Name: ELEN VERONICA Address: home [address] [place] [address]
--- OUTSIDE RECORDS SUMMARY | 2024-05-09 09:16 | XMS_ITS | Continuity of Care Document ---
Author Organization [facility] Address [address] [place] [address] [address] [place] [address]- Care Team Providers Care Hand Umbrella Tipper Name Role Phone Cruz Farooq Primary Care Physician [phone] Encounter [facility] Date(s): 12/06/22 - 01/05/[address] [place] [address]- Attending Physician: Trish Mejia Admitting Physician: AdmtrTrish Referring Physician: Admtr, Ar8 Allergies, Adverse Reactions, [...] 09/21/22 14:52:00 EST, Route to Pharmacy Electronically, [facility], Partial fill upon patient [...] 0 Refills, Soft Stop, 12/16/22 14:29:00 EDT, [facility], Partial fill upon patient request if the prescriptionis for a schedule II opioid drug., 165.1, cm, 12/16... Start Date: 12/16/22 Status: Ordered fenofibrate 145 mg oral tablet 1 tablet = 145 mg, By Mouth, Daily, # 30 tablet, 0 Refills, Maintenance, 09/21/22 14:53:00 EST, Tablet, [facility], Partial fill upon patient request if [...] EST, Route to Pharmacy Electronically, [facility]/pharmacy #[id number], Partial fill upon patient request [...] Role: PCP Address: Address: [address] [facility] [address] [place] [address]- Name: Kay Sewell RN Position: S RN Member Role: Primary Care Nurse Name: Valentin Parish RN Position: [facility] RN Member Role: Primary Care Nurse Name: Faviola Irvin RN Position: [facility] RN Member Role: Primary Care Nurse Name: Jonathan Marquez RN Position: [facility] RN Member Role: Primary Care Nurse Name: Eugenia Pichardo RN Position: [facility] RN Member Role: Primary Care Nurse Name: Savannah Tyler RN Position: S RN Member Role: Primary Care Nurse Name: Tayler Horn RN Position: [facility] RN Member Role: Primary Care Nurse Name: Francy Nava LPN Position: [facility] RN Member Role: Primary Care Nurse Care Team Related Persons Name: NICO FLORES Address: home [address] [place] [address] Name: LIDIA VAZQUEZ Address: [address] [place] [address] Name: MONIQUE VERONICA Address: home UNK Name: ELEN VERONICA Address: home [address] [place] [address]
--- OUTSIDE RECORDS SUMMARY | 2024-05-09 09:16 | XMS_ITS | Continuity of Care Document ---
Author Organization [facility] ter Address [address] [place] [address]- Care Team Providers Care Manufacturing Supervisor 2Nd Shift Name Role Phone Cruz Farooq Primary Care Physician [place] [facility] [place] 03/15/23 - 03/16/[address] [address]- Discharge Disposition: A-D/C Walkout Attending Physician: Not on Staff, Attending MD Admitting Physician: Not on Staff, Admitting MD Referring Physician: Not on Staff, Referring [...] 09/21/22 14:52:00 EST, Route to Pharmacy Electronically, [facility] 3, Partial fill upon patient request [...] 0 Refills, Soft Stop, 12/16/22 14:29:00 EDT, [facility] 3, Partial fill upon patient request if the prescriptionis for a schedule II opioid drug., 165.1, cm, 12/16... Start Date: 12/16/22 Status: Ordered fenofibrate 145 mg oral tablet 1 tablet = 145 mg, By Mouth, Daily, # 30 tablet, 0 Refills, Maintenance, 09/21/22 14:53:00 EST, Tablet, [facility] 3, Partial fill upon patient request [...] 08/17/21 10:32:00 EST, Route to Pharmacy Electronically, [facility]/pharmacy #[id number], Partial fill upon patient request if [...] to oldest [Reference Range]: 1 2 Height 167 cm (03/15/23 5:10 PM) 167 cm (03/15/23 4:24 PM) Weight 95 kg (03/15/23 5:10 PM) 95 kg (03/15/23 4:24 PM) Oxygen Saturation [94-100 %] 99 % (03/15/23 7:16 PM) 96 % (03/15/23 4:24 PM) Pulse Rate [55-90 bpm] 90 bpm (03/15/23 7:16 PM) 100 bpm *H* (03/15/23 4:24 PM) Body Mass Index [18.5-24.99 kg/m2] 34.06 kg/m2 *>HHI* (03/15/23 4:24 PM) Blood Pressure [90-138/55-84 mm Hg] 136/ 95mm Hg (03/15/23 7:16 PM) 145/90mm Hg *H* (03/15/23 4:24 PM) Respiratory Rate [16-30 br/min] 18 br/mi n (03/15/23 4:24 PM) Temperature [96.8-100.4 DegF] 98.6 DegF (03/15/23 7:16 PM) 99.2 DegF (03/15/23 4:24 PM) Mode of Delivery (Oxygen) Room air (03/15/23 7:16 PM) Room air (03/15/23 4:24 PM) Blood pressure sites Arm, right (03/15/23 7:16 PM) Arm, right (03/15/23 4:24 PM) Temperature Route Oral (03/15/23 7:16 PM) Oral (03/15/23 4:24 PM) Dry Weight 95 kg (03/15/23 5:10 PM) 95 kg (03/15/23 4:24 PM) Weight Obtained Via Patient/family state d (03/15/23 4:24 PM) Dry Weight Obtained Via Patient/family s tated (03/15/23 4:24 PM) Social History Social History Type Response Smoking Status Former smoker, quit more than 30 days ago; Other: Quit several months ago; entered on: 02/07/23 Sex Female Patient Care team information Care Team Personnel Name: Adelita Castillo RN Position: [facility] ED RN W/OE and Tasks Member Role: Primary Care Nurse Name: Rudy Huber RN Position: [facility] RN Member Role: Primary Care Nurse Name: Hasmukh Buckner RN Position: [facility] RN Member Role: Primary Care Nurse Name: Cruz Farooq Position: Reference Physician Member Role: PCP Address: Address: [address] [facility] [address] [place], [place] [address] Name: Kay Sewell RN Position: [facility] RN Member Role: Primary Care Nurse Name: Valentin Parish RN Position: S RN Member Role: Primary Care Nurse Name: Faviola Irvin RN Position: S RN Member Role: Primary Care Nurse Name: Jonathan Marquez RN Position: S RN Member Role: Primary Care Nurse Name: Eugenia Pichardo RN Position: [facility] RN Member Role: Primary Care Nurse Name: Savannah Tyler RN Position: S RN Member Role: Primary Care Nurse Name: Tayler Horn RN Position: S RN Member Role: Primary Care Nurse Name: Francy Nava LPN Position: S RN Member Role: Primary Care Nurse Care Team Related Persons Name: NICO FLORES Address: home [address] [place] [address] Name: LIDAI VAZQUEZ Address: [address] [place] [address] Name: MONIQUE VERONICA Address: home UNK Name: ELEN VERONICA Address: home [address] [place] [address]
--- OUTSIDE RECORDS SUMMARY | 2024-05-09 09:16 | XMS_ITS | Continuity of Care Document ---
Author Organization [facility] ter Address [address] [place] [address]- Care Team Providers Care Probation Supervisor Name Role Phone Cruz Farooq Primary Care Physician Encounter [facility] Date(s): 05/04/23 - 08/26/[address] [address]- Attending Physician: Caty Spears MD Referring Physician: Caty Spears MD Allergies, [...] Route to Pharmacy Electronically, [facility] 3, Partial fill upon patient request [...] 0 Refills, Soft Stop, 12/16/22 14:29:00 EDT, [facility] 3, Partial fill upon patient request if the prescriptionis for a schedule II opioid drug., 165.1, cm, 12/16... Start Date: 12/16/22 Status: Ordered fenofibrate 145 mg oral tablet 1 tablet = 145 mg, By Mouth, Daily, # 30 tablet, 0 Refills, Maintenance, 09/21/22 14:53:00 EST, Tablet, [facility] 3, Partial fill upon patient request [...] to Pharmacy Electronically, [facility]/pharmacy #[id number], Partial fill upon patient request if the [...] Team Personnel Name: Adelita Castillo RN Position: [facility] ED RN W/OE and Tasks Member Role: Primary Care Nurse Name: Rudy Huber RN Position: [facility] RN Member Role: Primary Care Nurse Name: Hasmukh Buckner RN Position: S RN Member Role: Primary Care Nurse Name: Cruz Farooq Position: Reference Physician Member Role: PCP Address: Address: [address] [place] [address] [address] [place] [id number] Name: Kay Sewell RN Position: [facility] RN Member Role: Primary Care Nurse [...] Care Nurse Care Team Related Persons Name: ISIDORONASIRNICO Abraham Address: home [address] [place] [address] Name: LIDIA VAZQUEZ Address: [address] [place] [address] Name: MONIQUE VERONICA Address: home UNK Name: ELEN VERONICA Address: home [address] [place] [address]
--- OUTSIDE RECORDS SUMMARY | 2024-05-09 09:16 | XMS_ITS | Continuity of Care Document ---
Author Organization [facility] ter Address [address] [place] [id number]- Care Team Providers Care Av Specialist Name Role Phone Maverick Pardo MD Primary Care Physician Encounter [facility] Date(s): 09/06/21 - 09/06/[address] [id number] Discharge Disposition: A-D/C Home Attending Physician: [...] 9:56:00 EST, Route to Pharmacy Electronically, [facility]/pharmacy #[id number], Partial fill upon patient request if the prescription... Start Date: 09/06/21 Stop Date: 04/04/22 Status: Ordered Colace sodium 100 mg oral capsule 100 mg, 1, capsule, By Mouth, 2 times a day, PRN, # 20 capsule, Refills 0, Tot. Refills 0, Maintenance, for constipation, 07/17/21 10:44:00 EST, Route to Pharmacy Electronically, [facility]/pharmacy #[id number], Partial fill upon patient request if the prescriptio... Start Date: 07/17/21 Status: Ordered Colace sodium 100 mg oral capsule 100 mg, 1, capsule, By Mouth, 2 times a day, PRN, # 60 capsule, Refills 2, Tot. Refills 2, Maintenance, for constipation, 08/27/21 11:03:00 EST, Route to Pharmacy Electronically, [facility]/pharmacy #[id number], Partial fill upon patient [...] Refills, Maintenance, 06/16/21 15:25:00 EST, Injection, [facility]/pharmacy #[id number], Partial fill upon patient [...] 9:56:00 EST, Route to Pharmacy Electronically, [facility]/pharmacy #[id number], Partial fill upon patien... Start Date: 09/06/21 Stop Date: 09/13/21 Status: Ordered oxyCODONE 5 mg oral tablet 5 mg, 1, tablet, By Mouth, Every 6 hours, PRN, # 28 tablet, Refills 0, Tot. Refills 0, Maintenance,as needed for pain, 08/11/21 11:27:00 EST, Route to Pharmacy Electronically, [facility]/pharmacy #[id number], Partial fill upon patient request if the prescription... Start Date: 08/11/21 Status: Ordered oxyCODONE 5 mg oral tablet 5 mg, 1, tablet, By Mouth, Every 6 hours, PRN, # 28 tablet, Refills 0, Tot. Refills 0, Maintenance,as needed for pain, 08/17/21 10:32:00 EST, Route to Pharmacy Electronically, [facility]/pharmacy #[id number], Partial fill upon patient request if the prescription... Start Date: 08/17/21 Status: Ordered OxyCODONE IR Tablet 5 mg, Tablet, By Mouth, Every 4 hours, in PACU ONLY, if patient can tolerate PO, PRN for Pain , Mild, Routine, 09/06/21 10:00:00 EST Start Date: 09/06/21 Stop Date: 09/06/21 Status: Discontinued Readi-Cat 2 oral suspension See Instructions, Readi-cat 2 2 bottle 450 mL Dx:, # 900 mL, 0 Refills, Maintenance, 09/01/21 13:18:00 EST, [facility]/pharmacy #[id number], Partial fill upon patient [...] Range]: 1 2 3 Height 165.1 cm (09/06/21 8:10 AM) 165.1 cm (09/01/21 11:10 AM) Weight 94.1 kg (09/06/21 8:10 AM) 95 kg (09/01/21 11:10 AM) Oxygen Saturation [94-100 %] 95 % (09/06/21 10:30 AM) 95 % (09/06/21 10:15 AM) 96 % (09/06/21 10:00 AM) Pulse Rate [55-90 bpm] 93 bpm *H* (09/06/21 8:10 AM) Body Mass Index [18.5-24.99] 34.52 *>HHI* (09/06/21 8:10 AM) 34.85 *>HHI* (09/01/21 11:10 AM) Blood Pressure [90-138/55-84 mm Hg] 101/68mm Hg (09/06/21 10:30 AM) 128/89mm Hg (09/06/21 10:15 AM) 118/80mm Hg (09/06/21 10:00 AM) Respiratory Rate [16-30 br/min] 18 br/min (09/06/21 10:46 AM) 15 br/min *L* (09/06/21 10:30 AM) 24 br/min (09/06/21 10:15 AM) Temperature [96.8-100.4 DegF] 97.3 DegF (09/06/21 9:45 AM) 97.8 DegF (09/06/21 8:10 AM) Liters per Minute 4 L/min (09/06/21 9:45 AM) Mode of Delivery (Oxygen) Room air (09/06/21 11:45 AM) Room air (09/06/21 10:15 AM) Simple face mask (09/06/21 9:45 AM) Blood pressure sites Arm, right (09/06/21 9:45 AM) Arm, left (09/06/21 8:10 AM) Temperature Route Temporal (09/06/21 9:45 AM) Temporal (09/06/21 8:10 AM) Dry Weight 94.1 kg (09/06/21 8:10 AM) 95 kg (09/01/21 11:10 AM) Weight Obtained Via Standing scale (09/06/21 8:10 AM) Patient/family stated (09/01/21 11:10 AM) Dry Weight Obtained Via Standing scale (09/06/21 8:10 AM) Patient/family stated (09/01/21 11:10 AM) Social History Social History Type Response Smoking Status 10 or more cigarette s (1/2 pack or more)/day in last 30 days entered on: 07/13/21 Sex
--- OUTSIDE RECORDS SUMMARY | 2024-05-09 09:16 | XMS_ITS | Continuity of Care Document ---
Author Organization [facility] Address [address] [place] [address] Dr [address] [place] [address]- Care Team Providers Care Director Fixed Income Name Role Phone Cruz Farooq Primary Care Physician Encounter [facility] Date(s): 08/17/23 - 09/16/23 [facility] [address] [place], [place] [address] Attending Physician: Admjustin, Trish Admitting Physician: Admtr, [id number] Referring Physician: [...] 09/21/22 14:52:00 EST, Route to Pharmacy Electronically, [facility], Partial fill upon patient request if [...] 0 Refills, Soft Stop, 12/16/22 14:29:00 EDT, [facility], Partial fill upon patient request if the prescriptionis for a schedule II opioid drug., 165.1, cm, 12/16... Start Date: 12/16/22 Status: Ordered fenofibrate 145 mg oral tablet 1 tablet = 145 mg, By Mouth, Daily, # 30 tablet, 0 Refills, Maintenance, 09/21/22 14:53:00 EST, Tablet, [facility], Partial fill upon patient request if [...] 08/17/21 10:32:00 EST, Route to Pharmacy Electronically, [facility]/pharmacy #[id number], Partial fill upon patient request if the [...] Team Personnel Name: Adelita Castillo RN Position: [facility] ED RN W/OE and Tasks Member Role: Primary Care Nurse Name: Rudy Huber RN Position: [facility] RN Member Role: Primary Care Nurse Name: Hasmukh Buckner RN Position: [facility] RN Member Role: Primary Care Nurse Name: Cruz Farooq Position: Reference Physician Member Role: PCP Address: Address: [address] [place] [address] [address] [place] [address]- Name: Kay Sewell RN Position: [facility] SN RN Member Role: Primary Care Nurse Name: Valentin Parish RN Position: [facility] RN Member Role: Primary Care Nurse Name: Faviola Irvin RN Position: S RN Member Role: Primary Care Nurse Name: Jonathan Marquez RN Position: S RN Member Role: Primary Care Nurse Name: Eugenia Pichardo RN Position: [facility] RN Member Role: Primary Care Nurse Name: Savannah Tyler RN Position: S RN Member Role: Primary Care Nurse Name: Tayler Horn RN Position: S RN Member Role: Primary Care Nurse Name: Francy Nava LPN Position: S RN Member Role: Primary Care Nurse Care Team Related Persons Name: ISIDORONASIRLeigh NICO Address: home [address] [place] [address] Name: LIDIA VAZQUEZ Address: home [address] [place] [address] Name: MONIQUE VERONICA Address: home [place] Name: ELEN VERONICA Address: home [address] [place] [address]
--- OUTSIDE RECORDS SUMMARY | 2024-05-09 09:16 | XMS_ITS | Continuity of Care Document ---
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 Start Date: 06/14/21 Status: Ordered [facility],0000 units, By Mouth, Daily, Refills 0, Maintenance, vitamin d3, 07/12/21 9:32:00 EST, Supply Start Date: 07/12/21 Status: Ordered oxyCODONE 5 mg oral tablet 5 mg, 1, tablet, By Mouth, Every 6 hours, PRN, # 28 tablet, Refills 0, Tot. Refills 0, Maintenance,as needed for pain, 08/11/21 11:27:00 EST, Route to Pharmacy Electronically, [facility] [...]
[2024-05-09 09:20] VITALS: BP 130/100; PULSE 106; O2SAT 98
--- NOTE | 2024-05-09 09:20 | AM.OFFWIN_ITS ---
Intake Vital Signs 05/09/24 09:20 05/09/24 09:46 Weight 215 lb BP 130/100 H Blood Pressure Location Rt brachial Position Sitting Pulse 106 H 101 H Pulse Source Pulse Oximeter Pulse Oximeter Pulse Oximetry (%) 98 Oxygen Delivery Method Room Air Intake Visit Reasons: EP-sob, cough, running nose, intestine pain Intake Note: Patient here for cough, SOB that has been present since 05/05 Patient Tobacco Use Status: Current everyday Tobacco user Allergies latex [LATEX] Allergy (Mild, Verified 05/09/24 09:21) RASH Iodinated Contrast Media [IV Contrast Dye] Allergy (Verified 05/09/24 09:21) Anaphylaxis amoxicillin Adverse Reaction (Unknown, Verified 05/09/24:21) vaginal infection dulaglutide [From Trulicity] Adverse Reaction (Unknown, Verified 05/09/24:21) vomitting, nausea semaglutide [From Ozempic] Adverse Reaction (Unknown, Verified 05/09/24 09:21) Chest pain, vomitting Do you need a note to return to daycare/school/sports/work: No HPI HPI Comments History of Present Illness Details Patient is a 48-year-old female with a past medical history of emphysema and a ?bad lung? complaining of 5 days of shortness of breath, a productive cough with yellow sputum, chest tightness and abdominal pain. She tells me she is on Ozempic so she is thinking the abdominal pain is because they just recently increased her dose. She denies any fevers nausea vomiting or diarrhea. She states she did have a fever 5 days ago but it resolved on its own. She denies any sinus pain ear pain or headaches. She states she does have a nebulizer machine at home but she does not have the attachment or the mask. She tells me she has been taking her Advair daily but does not have an albuterol inhaler. She has not tried any other medications to make herself feel better. [facility] Medical History Itching Obesity (BMI 30-39.9) Sepsis Diverticulitis of both large and small intestine with perforation and abscess Diverticulitis of large intestine with abscess Morbid obesity with BMI of 50.0-59.9, adult Hypertension Vitamin D deficiency B12 deficiency Diabetic nephropathy associated with type 2 diabetes mellitus Dyslipidemia Hirsutism Diabetes type 2, uncontrolled Surgical History Hx of abdominal surgery Hx of umbilical hernia repair History of ankle surgery Hx of section Family History Father Throat cancer Cirrhosis Mother Diabetes Social History Household Members: None Housing: House Do you presently have visiting nurse or other home services: Yes Alcohol intake: former Patient Tobacco Use Status: Current everyday Tobacco user Tobacco use type: Cigarette Cigarettes Per Day: 5 Years Smoked: 30 e-Cigarette/Vaping Use: Never Used Second Hand Smoke Exposure: Yes Substance Use Type: Marijuana Advance Directives Date on File: 05/05/21 service: No Current occupational status: disabled Cognitive needs: No Hearing needs: No Vision needs: Yes Review of Systems Const All systems reviewed & are unremarkable except as noted in HPI and below Physical Exam Vital Signs: Last Vital Signs Pulse 106 H 05/09/24 09:20 BP 130/100 H 05/09/24 09:20 Pulse Ox 98 05/09/24 09:20 Oxygen Delivery Method Room Air 05/09/24 09:20 Const General: cooperative, healthy appearing, comfortable and no acute distress Orientation/consciousness: patient oriented x3 Limitations: no limitations HEENT Head: Yes normal to inspection Ears: hearing grossly normal bilaterally, external ears normal and TM's normal bilaterally General nose exam: Normal external nose present, Normal nares present and No nasal discharge present Face and sinus: Yes normal facial exam and Yes sinuses nontender Mouth: Normal oral and palatal mucosa present and moist mucous membranes Throat: Yes tonsils normal, Yes uvula midline and Yes posterior oropharynx abnormal (Erythema) Eyes General: appearance normal, both eyes and all related structures Neck Neck: Yes normal visual inspection Resp Effort & Inspection: normal respiratory effort, able to speak in complete s entences, Actively coughing, no respiratory distress, not tachypneic, no tripod positioning and no use of accessory muscles Auscultation: bronchovesicular breath sounds diffuse Cardio Rate: regular rate Rhythm: regular rhythm Heart sounds: normal S1 and S2 Skin General skin exam: no rashes or lesions noted Neuro General: patient oriented x3 Extrem General: Yes normal to inspection and Yes no clubbing, cyanosis or edema Assessment & Plan Assessment & Plan (1) URI (upper respiratory infection): Code(s): J06.9 - Acute upper respiratory infection, unspecified Qualifiers: URI type: unspecified URI Qualified Code(s): J06.9 - Acute upper respiratory infection, unspecified Plan: Vital signs are stable, patient mildly tachycardic between 101 in 106 BPM. Physical exam revealed bronchovesicular lung sounds we will get a chest x-ray, sent respiratory pathogen panel. Sent a new albuterol inhaler and Tessalon Perles and did give patient 2 sets of attachments so she could use her nebulizer machine at home. Recommended she reach out to her PCP so she can get the piece that she is missing. Plan see above Orders: Orders XR chest 2V Today R05.9 - Cough, unspecified Resp Pathogen Panel - [facility] Today J06.9 - Acute upper respiratory infection, unspecified Medications: New benzonatate 200 mg PO TID PRN 14 caps 0RF cough albuterol sulfate 90 mcg/actuation (Ventolin HFA) 2 puffs inhalation Q4-6H PRN 8.5 grams 0RF shortness of breath or wheezing Coding Level of Care Code Est Pt Level 4 (39408) Diagnoses Upper respiratory tract infection, unspecified type J06.9 URI type: unspecified URI
[2024-05-09 09:46] VITALS: PULSE 101
== END 2024-05-09 09:57 | disposition home or self-care (01) ==
PROVIDERS: PCP Physician Assistant; Visit Provider Physician Assistant
DX: J06.9 Acute upper respiratory infection, unspecified (principal)

== ENCOUNTER → 2024-05-09 09:10 | Outpatient (BNVA) | payer OTHER, SELFPAY | PROVIDERS: PCP Physician Assistant; Visit Provider Physician Assistant ==

== ENCOUNTER 2024-05-09 09:39 | Outpatient (REF) | payer OTHER, SELFPAY ==
--- NOTE | ~2024-05-09 | XR_ITS ---
EXAMINATION: XR CHEST CLINICAL INFORMATION: Cough. COMPARISON: Chest radiograph dated 03/20/2024. TECHNIQUE: 2 views of the chest were obtained. FINDINGS: The lungs are clear. The cardiomediastinal silhouette is normal in size. There is no pleural effusion or pneumothorax. No acute osseous abnormality. XR/XR chest 2V IMPRESSION: No acute cardiopulmonary findings. Electronically signed by: Gilberto Jack MD 05/09/2024 11:29 AM EDT
[2024-05-09 15:04] LABS: Adenovirus PCR Not Detected (Not Detect.); Bordetella parapertussis PCR Not Detected (Not Detect.); Bordetella pertussis PCR Not Detected (Not Detect.); Chlamydia pneumoniae PCR Not Detected (Not Detect.); Coronavirus 229E PCR Not Detected (Not Detect.); Coronavirus HKU1 PCR Not Detected (Not Detect.); Coronavirus NL63 PCR Not Detected (Not Detect.); Coronavirus OC43 PCR Not Detected (Not Detect.); Human metapneumovirus PCR Not Detected (Not Detect.); Influenza A PCR Not Detected (Not Detect.); Influenza B PCR Not Detected (Not Detect.); Mycoplasma pneumoniae PCR Not Detected (Not Detect.); Parainfluenza 1 PCR Not Detected (Not Detect.); Parainfluenza 2 PCR Not Detected (Not Detect.); Parainfluenza 3 PCR Not Detected (Not Detect.); Parainfluenza 4 PCR Not Detected (Not Detect.); RSV PCR Not Detected (Not Detect.); Rhino/Enterovirus PCR Detected (Not Detect.)
[2024-05-09 15:16] LABS: SARS-CoV-2 PCR Not Detected (Not Detect.)
== END 2024-05-09 09:40 | disposition home or self-care (01) ==
LOC: HO.HMGCX 09:39
PROVIDERS: PCP Physician Assistant; Visit Provider Physician Assistant
DX: J06.9 Acute upper respiratory infection, unspecified (principal); R05.9 Cough, unspecified
CPT/HCPCS: 71046; 87633; 99212

== ENCOUNTER 2024-05-18 10:23 | Outpatient (AMB) | payer OTHER, SELFPAY ==
[2024-05-18 11:07] VITALS: BP 148/90; PULSE 94; O2SAT 97; BMI 35.6
--- NOTE | 2024-05-18 11:07 | MHC.OFFWIV ---
Intake Vital Signs 05/18/24 11:07 Height 5 ft 5 in Weight 214 lb BMI 35.6 BP 148/90 H Blood Pressure Location Lt brachial Position Sitting Pulse 94 Pulse Source Pulse Oximeter Pulse Oximetry (%) 97 Oxygen Delivery Method Room Air Intake Visit Reasons: EP LT Toe injury Intake Note: Pt is here today c/o Lt foot pain due to a dresser draw falling on foot yesterday Patient Tobacco Use Status: Current everyday Tobacco user Allergies latex [LATEX] Allergy (Mild, Verified 06/27/24 15:04) RASH Iodinated Contrast Media [IV Contrast Dye] Allergy (Verified 06/27/24 15:04) Anaphylaxis amoxicillin Adverse Reaction (Unknown, Verified 06/27/24 15:04) vaginal infection dulaglutide [From Trulicity] Adverse Reaction (Unknown, Verified 06/27/24 15:04) vomitting, nausea semaglutide [From Ozempic] Adverse Reaction (Unknown, Verified 06/27/24 15:04) Chest pain, vomitting HPI EP LT Toe injury HPI Details Patient is a 48-year-old female with diabetes who comes to the walk-in clinic today after a dresser drawer fell onto her left foot yesterday. She has swelling, bruising and pain especially with ambulation. Plain film x-ray shows no fracture or acute injury today, however visible ecchymosis to left big toe as well as tenderness to the 2nd distal toe on exam today. There is some nail involvement to the 1st toenail also, but no obvious detachment at the nail bed, and no subungual hematoma. Patient is a diabetic and was concerned about infection to the foot. We discussed elevating the foot and icing every 2-4 hours until pain is resolving in the next few days. She will monitor her blood sugars closely. She knows to follow up if symptoms persist or worsen, or go to the emergency department with worrisome symptoms [facility] Medical History Itching Obesity (BMI 30-39.9) Sepsis Diverticulitis of both large and small intestine with perforation and abscess Diverticulitis of large intestine with abscess Morbid obesity with BMI of 50.0-59.9, adult Hypertension Vitamin D deficiency B12 deficiency Diabetic nephropathy associated with type 2 diabetes mellitus Dyslipidemia Hirsutism Diabetes type 2, uncontrolled Surgical History Hx of abdominal surgery Hx of umbilical hernia repair History of ankle surgery Hx of section Family History Father Throat cancer Cirrhosis Mother Diabetes Social History Household Members: None Housing: House Do you presently have visiting nurse or other home services: Yes Alcohol intake: former Patient Tobacco Use Status: Current everyday Tobacco user Tobacco use type: Cigarette Cigarettes Per Day: 5 Years Smoked: 30 e-Cigarette/Vaping Use: Never Used Second Hand Smoke Exposure: Yes Substance Use Type: Marijuana Advance Directives Date on File: 05/05/21 service: No Current occupational status: disabled Cognitive needs: No Hearing needs: No Vision needs: Yes Physical Exam Vital Signs: Last Vital Signs Pulse 94 05/18/24 11:07 BP 148/90 H 05/18/24 11:07 Pulse Ox 97 05/18/24 11:07 Oxygen Delivery Method Room Air 05/18/24 11:07 BMI result Body Mass Index 35.6 Extrem Other: There is edema and ecchymosis to and CP joint of the left 1st toe, as well as tenderness to the 2nd distal toe on exam today. No obvious deformity, and good strength with flexion and extension of the digits. Neurovascularly intact distally with good cap refill Results Reviewed Results Reviewed: Plain film x-ray shows no obvious fracture or other acute trauma noted Assessment & Plan Assessment & Plan (1) Contusion of left foot: Code(s): S90.32XA - Contusion of left foot, initial encounter Qualifiers: Encounter type: initial encounter Qualified Code(s): S90.32XA - Contusion of left foot, initial encounter Plan: Plain film x-ray shows no fracture or acute injury today, however visible ecchymosis to left big toe as well as tenderness to the 2nd distal toe on exam today. There is some nail involvement to the 1st toenail also, but no obvious detachment at the nail bed, and no subungual hematoma. Patient is a diabetic and was concerned about infection to the foot. We discussed elevating the foot and icing every 2-4 hours until pain is resolving in the next few days. She will monitor her blood sugars closely. She knows to follow up if symptoms persist or worsen, or go to the emergency department with worrisome symptoms. Orders: Orders XR foot LT min 3V 05/18/24 M79.675 - Pain in left toe(s) Coding Level of Care Code Est Pt Level 3 (58265) Diagnoses Contusion of left foot, initial encounter S90.32XA Encounter type: initial encounter
== END 2024-05-18 12:48 | disposition home or self-care (01) ==
PROVIDERS: PCP Physician Assistant; Visit Provider Physician Assistant Medical
DX: S90.32XA Contusion of left foot, initial encounter (principal)

== ENCOUNTER 2024-05-18 10:23 | Outpatient (REF) | payer OTHER, SELFPAY ==
--- NOTE | ~2024-05-18 | XR_ITS ---
EXAMINATION: XR FOOT, LEFT CLINICAL INFORMATION: Pain in the left COMPARISON: None available. TECHNIQUE: AP, lateral, and oblique views of the left foot. FINDINGS: The bones and soft tissues are normal. No fracture. Alignment is anatomic. Joint spaces are maintained. XR/XR foot LT min 3V IMPRESSION: Normal left foot. Electronically signed by: Darlene Hunter MD 05/18/2024 12:53 PM EDT
== END 2024-05-18 10:24 | disposition home or self-care (01) ==
LOC: HO.HMGCX 10:23
PROVIDERS: PCP Physician Assistant; Visit Provider Physician Assistant Medical
DX: S90.32XA Contusion of left foot, initial encounter (principal); W20.8XXA Other cause of strike by thrown, projected or falling object, initial encounter; Y93.9 Activity, unspecified; Y92.9 Unspecified place or not applicable; Y99.9 Unspecified external cause status
CPT/HCPCS: 73630; 99212

== ENCOUNTER 2024-05-30 14:54 | Outpatient (AMB) | payer OTHER, SELFPAY ==
[2024-05-30 15:00] VITALS: BP 138/82; PULSE 101; BMI 33.7
--- NOTE | 2024-05-30 15:00 | A.OFFVIS_ITS ---
Vital Signs 05/30/24 15:00 Height 5 ft 5 in Weight 202 lb 13.204 oz BMI 33.7 BP 138/82 Blood Pressure Location Rt brachial Position Sitting Pulse 101 H Intake Visit Reasons: f/up glucose Intake Note: Patient presents here today to for a follow-up on DM TYPE 2. Most recent Diabetic Eye Exam: 11/2023 Most recent Podiatry Exam: Does not see a Automotive Service Manager Most recent HbA1c: 8.2%, 04/27/2024 Random Glucose- 155 mg/dL, Today Associate Professor Physician Required: No Accompanied by: Self / Same As Patient Allergies latex [LATEX] Allergy (Mild, Verified 05/30/24 15:07) RASH Iodinated Contrast Media [IV Contrast Dye] Allergy (Verified 05/30/24 15:07) Anaphylaxis amoxicillin Adverse Reaction (Unknown, Verified 05/30/24 15:07) vaginal infection dulaglutide [From Trulicity] Adverse Reaction (Unknown, Verified 05/30/24 15:07) vomitting, nausea semaglutide [From Ozempic] Adverse Reaction (Unknown, Verified 05/30/24 15:07) Chest pain, vomitting HPI Comments Details: Patient is a 48-year-old female with DM type 2 diagnosed who presents for management of diabetes. Past medical history: DM2, HTN, Hirsutism, dyslipidemia, vitamin d deficiency. Micro and macrovascular complications: Nephropathy Diabetes medications: Currently taking ozempic 2mg weekly. Previous: She was prescribed lantus 80 units and 15-20 humalog with meals. Had dizziness with Trulicity. Intolerant of mounjaro. CGM, Enecsys Tiff downloaded. Use 53%-GMI 8.0%, 38% target, 62% high, 0% low. Was sick recently not eating or taking medications regularly Symptoms reported: numbness, tingling, cramping in lower extremities Hypoglycemia: No. drinks orange juice which brings it up but doesnt sustain long enough Hyperglycemia: denies urinary frequency, denies excessive thirst Optho: says utd Does not see podiatry ROS see HPI PHYSICAL EXAM: GENERAL: Alert and oriented x 3. NAD EYES: EOMI. Anicteric. HENT: Moist mucous membranes. No scleral icterus. No cervical lymphadenopathy. LUNGS: Clear to auscultation bilaterally. CARDIOVASCULAR: Regular rate and rhythm. No murmur. No JVD. ABDOMEN: Soft, +hernia EXTREMITIES: No edema. Non-tender. SKIN: No rashes or lesions. Warm. NEUROLOGIC: No focal neurological deficits. CN II-XII grossly intact PSYCHIATRIC: Cooperative. Appropriate mood and affect [facility] Medical History Itching Obesity (BMI 30-39.9) Sepsis Diverticulitis of both large and small intestine with perforation and abscess Diverticulitis of large intestine with abscess Morbid obesity with BMI of 50.0-59.9, adult Hypertension Vitamin D deficiency B12 deficiency Diabetic nephropathy associated with type 2 diabetes mellitus Dyslipidemia Hirsutism Diabetes type 2, uncontrolled Surgical History Hx of abdominal surgery Hx of umbilical hernia repair History of ankle surgery Hx of section Family History Father Throat cancer Cirrhosis Mother Diabetes Social History Household Members: None Housing: House Do you presently have visiting nurse or other home services: Yes Alcohol intake: former Patient Tobacco Use Status: Current everyday Tobacco user Tobacco use type: Cigarette Cigarettes Per Day: 5 Years Smoked: 30 e-Cigarette/Vaping Use: Never Used Second Hand Smoke Exposure: Yes Substance Use Type: Marijuana Advance Directives Date on File: 05/05/21 service: No Current occupational status: disabled Cognitive needs: No Hearing needs: No Vision needs: Yes Physical Exam Vital Signs: Last Vital Signs Pulse 101 H 05/30/24 15:00 BP 138/82 05/30/24 15:00 BMI result Body Mass Index 33.7 Results Reviewed Results Reviewed: Laboratory Last Values Glucose (Clinic) 155 mg/dL (60-115) H 05/30/24 15:04 Assessment & Plan Assessment & Plan (1) Diabetes type 2, uncontrolled: Code(s): E11.65 - Type 2 diabetes mellitus with hyperglycemia Category: Medical Qualifiers: Glycemic state: with hyperglycemia Qualified Code(s): E11.65 - Type 2 diabetes mellitus with hyperglycemia Plan: Continue current medications. Getting back to diet, exercise and medication compliance. She will return for close follow up Coding Level of Care Code Est Pt Level 4 (61202) Diagnoses Uncontrolled type 2 diabetes mellitus with hyperglycemia E11.65 Glycemic state: with hyperglycemia
[2024-05-30 15:12] LABS: Glucose, Whole Blood 155 mg/dL (60-115)
== END 2024-05-30 15:30 | disposition home or self-care (01) ==
LOC: HO.ENCR 14:54
PROVIDERS: PCP Physician Assistant; Visit Provider Internal Medicine
DX: E11.65 Type 2 diabetes mellitus with hyperglycemia (principal)

== ENCOUNTER → 2024-05-30 14:54 | Outpatient (BNVA) | payer OTHER, SELFPAY | PROVIDERS: PCP Physician Assistant; Visit Provider Internal Medicine | DX: E11.65 Type 2 diabetes mellitus with hyperglycemia (principal); E78.5 Hyperlipidemia, unspecified; E55.9 Vitamin D deficiency, unspecified | CPT/HCPCS: 82947; 99212 ==

== ENCOUNTER 2024-06-25 14:04 | Outpatient (AMB) | payer OTHER, SELFPAY ==
--- NOTE | 2024-06-25 14:15 | MHC.PC.OV ---
Vital Signs 06/25/24 14:23 Height 5 ft 5 in Weight 214 lb 2 oz BMI 35.6 BP 122/84 Blood Pressure Location Lt brachial Position Sitting Pulse 95 Pulse Source Pulse Oximeter Pulse Oximetry (%) 98 Oxygen Delivery Method Room Air Intake Visit Reasons: f/u pain managment. Senior Consulting Manager Required: No Accompanied by: Self / Same As Patient Allergies latex [LATEX] Allergy (Mild, Verified 06/25/24 14:24) RASH Iodinated Contrast Media [IV Contrast Dye] Allergy (Verified 06/25/24 14:24) Anaphylaxis amoxicillin Adverse Reaction (Unknown, Verified 06/25/24 14:24) vaginal infection dulaglutide [From Trulicity] Adverse Reaction (Unknown, Verified 06/25/24 14:24) vomitting, nausea semaglutide [From Ozempic] Adverse Reaction (Unknown, Verified 06/25/24 14:24) Chest pain, vomitting Medication List - Last Reconciled 06/25/24 by Cruz Navas PA-C abdominal binder As directed albuterol sulfate 2.5 mg (3 mL) inhalation Q6H PRN 30 days albuterol sulfate 90 mcg/actuation 1 inh inhalation QID PRN 30 days albuterol sulfate 90 mcg/actuation (Ventolin HFA) 2 puffs inhalation Q4-6H PRN atorvastatin 40 mg PO BEDTIME benzonatate 200 mg PO TID PRN blood sugar diagnostic (FreeStyle Test strips) testing 3x daily epinephrine (EpiPen 2-Josué) 0.3 mg (0.3 mL) IM ONCE PRN flash glucose scanning reader (FreeStyle Tiff 2 Himrod) 1 ea miscellaneous DIRECTED flash glucose sensor (FreeStyle Tiff 2 Sensor kit) DIRECTED EVERY 2 WEEKS fluticasone propion-salmeterol 250-50 mcg/dose (Advair Diskus) 1 ea inhalation BID 30 days FreeStyle Precision Haresh Strips (blood sugar diagnostic) As needed up to four times daily NS glucose 4 grams PO Q15M PRN insulin glargine (Lantus Solostar U-100 Insulin) 80 units (0.8 mL) subcut BEDTIME insulin lispro 20 - 30 units subcut TID nitroglycerin 0.4 mg sublingual Q5M PRN 15 days ondansetron HCl 8 mg PO Q12H 15 days Ozempic (semaglutide) 2 mg (0.75 mL) subcut QWEEK NS pen needle, diabetic (BD Ultra-Fine Macy Pen Needle) USE DIRECTED 4 TIMES DAILY Tobacco use date assessed: 08/03/23 Dental Screening Dental Screen Date: 10/05/23 HPI f/u pain managment. HPI Details Patient is a 48-year-old female here today for a 8 week follow-up visit.? Patient has a past medical history significant for obesity, type 2 diabetes, tobacco dependency, generalized anxiety disorder, chronic incisional abdominal hernia. Recently had an upper respiratory infection with rhino virus that was pretty bad for patient. She has use cough suppressant tablets at helped her. She reports she still feels a bit sick. Unfortunately still smoking cigarettes. Incisional hernia--> she is followed by [facility] hernia surgeon. Unfortunately her follow-up appointments has been delayed due to some unclear reason. Was was previous not a candidate for surgery as she has gained weight, continues to smoke in her diabetes wasn't well controlled. She was told she needed to get her diabetes better controlled and lose a significant amount of weight so that she would not have any complications after her hernia repair. --> SHE CONTINUES WITH PAIN MANAGEMENT WITH OXYCODONE 10 MG WHICH HAS GIVEN HER THE ABILITY TO BE MORE PHYSICALLY ACTIVE AND HAS BEEN WALKING MORE. SHE HAS LOST 3 LB SINCE LAST OFFICE VISIT. ALSO ON OZEMPIC 2MG WEEKLY THAT HAS OFFERED HER THE ABILITY DID LOSE WEIGHT AND SOME GLYCEMIC CONTROL. SHE DOES REPORT SINCE BEING MORE PHYSICALLY ACTIVE SHE IS FELT DIFFERENT PAIN/SENSATION IN HER ABDOMEN. NO DEFECATION ISSUES REPORTED. --> SHE WILL REACH BACK OUT TO HER ABDOMINAL HERNIA SURGEON TO SEE IF SHE CAN GET BACK ON THE SCHEDULE TO DISCUSS A FINAL FIX OF HER LARGE INCISIONAL HERNIA. Type 2 diabetes: Followed by her [place] branch examiner. Her Ozempic has been recently increased to 2 mg weekly. She reports her blood sugars have been better controlled. Most recent A1c improved at 8.2. Hypertriglyceridemia: Have noted elevation in her triglycerides. She did stop taking her fenofibrate as she was concerned about side effects. She promises to restart fenofibrate to reduce her triglycerides [facility] Medical History Itching Obesity (BMI 30-39.9) Sepsis Diverticulitis of both large and small intestine with perforation and abscess Diverticulitis of large intestine with abscess Morbid obesity with BMI of 50.0-59.9, adult Hypertension Vitamin D deficiency B12 deficiency Diabetic nephropathy associated with type 2 diabetes mellitus Dyslipidemia Hirsutism Diabetes type 2, uncontrolled Surgical History Hx of abdominal surgery Hx of umbilical hernia repair History of ankle surgery Hx of section Family History Father Throat cancer Cirrhosis Mother Diabetes Social History Household Members: None Housing: House Do you presently have visiting nurse or other home services: Yes Alcohol intake: former Patient Tobacco Use Status: Current everyday Tobacco user Tobacco use type: Cigarette Cigarettes Per Day: 5 Years Smoked: 30 e-Cigarette/Vaping Use: Never Used Second Hand Smoke Exposure: Yes Substance Use Type: Marijuana Advance Directives Date on File: 05/05/21 service: No Current occupational status: disabled Cognitive needs: No Hearing needs: No Vision needs: Yes Questionnaire Thrive Questionnaire Date Thrive assessed: 08/03/23 Are you currently unemployed and looking for a job?: Yes RUI-7 AMB Questionnaire RUI-7 Date RUI - 7 assessed: 08/03/23 Source: Developed by Drs. Kahlil Thao, Patito Pradhan, Shine Carias and colleagues, with an educational kathleen from [employer]. Review of Systems Const Denies headache(s) Eyes Denies loss of vision ENT Denies vertigo, Denies dizziness, Denies headache(s) and Denies sore throat Card Denies chest pain, Denies leg edema and Denies lightheadedness Resp Denies cough, Denies hemoptysis and Denies wheezing GI Denies abdominal pain, Denies melena, Denies constipation, Denies diarrhea and Denies vomiting Denies urinary frequency, Denies dysuria and Denies urinary urgency Musc Denies arthralgias, Denies joint swelling, Denies numbness and Denies tingling Neuro Denies Abnormal speech present, Denies behavioral changes, Denies vertigo, Denies dizziness, Denies headache(s), Denies loss of vision, Denies memory loss, Denies numbness and Denies tingling Psych Denies anxiety, Denies behavioral changes, Denies depression, Denies memory loss and Denies panic attacks Abhijit/Lymph Denies easy bleeding and Denies easy bruising Aller/Immun Denies wheezing Physical exam (Primary Care) Vital Signs: Last Vital Signs Pulse 95 06/25/24 14:23 BP 122/84 06/25/24 14:23 Pulse Ox 98 06/25/24 14:23 Oxygen Delivery Method Room Air 06/25/24 14:23 BMI result Body Mass Index 35.6 Tobacco/Smoking Status: Tobacco use Status Tobacco use date assessed 08/03/23 06/25/24 14:17 Patient Tobacco Use Status Current everyday Tobacco 06/25/24 14:17 Tobacco use type Cigarette 06/25/24 14:17 e-Cigarette/Vaping Use Never Used 06/25/24 14:17 Are you ready to quit: No Tobacco cessation counseling provided: Yes Items discussed: Nicotine replacement Relapse Prevention: discussed the importance of a supportive environment, discussed negative mood or depression after quitting, weight gain after smoking is common and discussed dietary, exercise and/or lifestyle changes Number of minutes spent counselin Thrive Assessment: Date of Thrive Assessment Date Thrive assessed 08/03/23 06/25/24 14:17 Const General: healthy appearing, no acute distress, alert and awake Nutritional Appearance: well nourished Orientation/consciousness: oriented to person, oriented to place and oriented to time HENMT Ears: TM's normal bilaterally General nose exam: Normal nasal mucous membranes and turbinates present Eyes Conjunctivae: conjunctivae normal Sclerae: sclerae normal Pupils: Equal, round and reactive pupils present Neck Neck: Yes no lymphadenopathy and Yes no JVD Thyroid: Thyroid normal Carotids: no bruits Resp Effort & Inspection: normal respiratory effort and not tachypneic Auscultation: no crackles, no rales, no rhonchi and no wheezes Cardio Rate: regular rate Rhythm: regular rhythm Heart sounds: no murmurs and normal S1 and S2 GI Palpation (GI): Soft to palpation, nontender, no hepatomegaly and no splenomegaly Auscultation: normal bowel sounds Abdomen image: 1. LARGE ABDOMINAL LUMP IN THE AREA OUTLINED Skin General skin exam: no rashes or lesions noted and dry skin Neuro General: oriented to person, oriented to place and oriented to time Cranial nerves: Yes Equal, round and reactive pupils present Speech: No Abnormal speech present Gait exam (Neuro): Normal gait present Motor exam (neuro): no tremor noted Extrem Right upper extremity: full ROM Left upper extremity: full ROM Right lower extremity: full ROM; no edema Left lower extremity: full ROM; no edema Psych Mental Status: mental status grossly normal Speech and movement: Normal speech and movement present Affect: normal affect Attitude: cooperative Thought process: Normal thought process present Coding Level of Care Code Est Pt Level 4 (34456) Diagnoses Incisional hernia, without obstruction or gangrene K43.2 Obstruction and gangrene presence: without obstruction or gangrene Uncontrolled type 2 diabetes mellitus with hyperglycemia E11.65 Glycemic state: with hyperglycemia Hypertriglyceridemia E78.1 Tobacco dependence F17.200 Assessment & Plan Assessment & Plan (1) Incisional hernia: Code(s): K43.2 - Incisional hernia without obstruction or gangrene Category: Medical Qualifiers: Obstruction and gangrene presence: without obstruction or gangrene Qualified Code(s): K43.2 - Incisional hernia without obstruction or gangrene Plan: Patient continues to follow up with general surgeon for her hernia evaluation. Unfortunately her appointments have been delayed due to some clear reason.. She needs to have better glycemic control to which she has making med adjustments with [place] endocrinology. She continues to wear a abdominal binder which helps to hold her hernia in placed. UNFORTUNATELY CONTINUES TO HAVE RIPPING TYPE PAIN IN HER ABDOMEN TO WHICH SHE REQUIRES NARCOTIC PAIN MEDICATION AND REST FROM TIME TO TIME. SHE DOES REPORT SHE FEELS THAT HER HERNIA HAS MOVED DOWN WORDS PASSING ON HER PRODUCTIVITY ENGINEER ORGANS. SHE REPORTS HAVING HER MENSTRUATION 3 TIMES IN 1 MONTH. (2) Diabetes type 2, uncontrolled: Code(s): E11.65 - Type 2 diabetes mellitus with hyperglycemia Category: Medical Qualifiers: Glycemic state: with hyperglycemia Qualified Code(s): E11.65 - Type 2 diabetes mellitus with hyperglycemia Plan: As per HPI patient now followed by [place] endocrinology. On highest dose of Ozempic and is on insulin regime. Her A1c is has been better as of late and continues to work diabetic diet. (3) Hypertriglyceridemia: Code(s): E78.1 - Pure hyperglyceridemia Category: Medical Plan: Has not been able to tolerate statin therapy as she feels she is having some chest pain with the use of atorvastatin. She is willing to switch to simvastatin at a lower potency to see if she can be more compliant with his medication. She does have suboptimal control of her lipid panel. (4) Tobacco dependence: Code(s): F17.200 - Nicotine dependence, unspecified, uncomplicated Category: Medical Plan: Patient does admit to smoking a few cigarettes per day on stress. Her abdominal hernia causes her lot of pain and stress. Medications: New oxycodone Partial Fill upon patient request. 10 mg PO Q8H 7 days PRN 21 tabs 0RF pain K43.2 - Incisional hernia without obstruction or gangrene simvastatin 20 mg PO DAILY 30 days 30 tabs 3RF E11.21 - Type 2 diabetes mellitus with diabetic nephropathy, E78.5 - Hyperlipidemia, unspecified cholecalciferol (vitamin D3) 25 mcg PO DAILY 90 days 90 caps 2RF E11.21 - Type 2 diabetes mellitus with diabetic nephropathy blood-glucose meter (FreeStyle Lite Meter kit) As directed 1 ea 0RF E11.9 - Type 2 diabetes mellitus without complications, Z79.4 - continuous churn buttermaker (current) use of insulin Discontinued atorvastatin Discontinued Reason: Doctor's Order 40 mg PO BEDTIME 30 tabs 5RF
[2024-06-25 14:23] VITALS: BP 122/84; PULSE 95; O2SAT 98; BMI 35.6
== END 2024-06-25 14:57 | disposition home or self-care (01) ==
PROVIDERS: PCP Physician Assistant; Visit Provider Physician Assistant
DX: K43.2 Incisional hernia without obstruction or gangrene (principal); E11.65 Type 2 diabetes mellitus with hyperglycemia; E78.1 Pure hyperglyceridemia; F17.200 Nicotine dependence, unspecified, uncomplicated

== ENCOUNTER → 2024-06-25 14:04 | Outpatient (BNVA) | payer OTHER, SELFPAY | PROVIDERS: PCP Physician Assistant; Visit Provider Physician Assistant | DX: K43.2 Incisional hernia without obstruction or gangrene (principal); E11.65 Type 2 diabetes mellitus with hyperglycemia; E78.1 Pure hyperglyceridemia; F17.200 Nicotine dependence, unspecified, uncomplicated; Z71.6 Tobacco abuse counseling | CPT/HCPCS: 99212 ==

== ENCOUNTER 2024-06-27 14:59 | Outpatient (AMB) | payer OTHER, SELFPAY ==
--- NOTE | 2024-06-27 15:02 | A.OFFVIS_ITS ---
Vital Signs 06/27/24 15:03 Height 5 ft 5 in Weight 213 lb 13.574 oz BMI 35.6 BP 120/80 Blood Pressure Location Rt brachial Position Sitting Pulse 95 Pulse Source Pulse Oximeter Intake Visit Reasons: DM/ Left voicemail Intake Note: Patient presents here today to for a follow-up on DM TYPE 2. Last Diabetic eye exam was on: 11/2023 Last Podiatry exam was on: Does not see a Financial Services Sales Representative Most recent HbA1c: 8.2%, 04/27/2024 Random Glucose- 173 mg/dL, Today Seismic Plotter Required: No Accompanied by: Self / Same As Patient Allergies latex [LATEX] Allergy (Mild, Verified 06/27/24 15:04) RASH Iodinated Contrast Media [IV Contrast Dye] Allergy (Verified 06/27/24 15:04) Anaphylaxis amoxicillin Adverse Reaction (Unknown, Verified 06/27/24 15:04) vaginal infection dulaglutide [From Trulicity] Adverse Reaction (Unknown, Verified 06/27/24 15:04) vomitting, nausea semaglutide [From Ozempic] Adverse Reaction (Unknown, Verified 06/27/24 15:04) Chest pain, vomitting HPI Comments Details: Patient is a 48-year-old female with DM type 2 diagnosed who presents for management of diabetes. Past medical history: DM2, HTN, Hirsutism, dyslipidemia, vitamin d deficiency. Micro and macrovascular complications: Nephropathy Diabetes medications: Currently taking ozempic 2mg weekly. Has missed some doses. still inconsistent with all meds post covid. Recently sick again with another URI Previous: She was prescribed lantus 80 units and 15-20 humalog with meals. Had dizziness with Trulicity. Intolerant of mounjaro. CGM, Freestyle Tiff. Has not been using. Has not been checking glucose unless feeling poorly Symptoms reported: numbness, tingling, cramping in lower extremities Hypoglycemia: No. drinks orange juice which brings it up but doesnt sustain long enough Hyperglycemia: denies urinary frequency, denies excessive thirst Optho: says utd Does not see podiatry ROS see HPI PHYSICAL EXAM: GENERAL: Alert and oriented x 3. NAD EYES: EOMI. Anicteric. HENT: Moist mucous membranes. No scleral icterus. No cervical lymphadenopathy. LUNGS: Clear to auscultation bilaterally. CARDIOVASCULAR: Regular rate and rhythm. No murmur. No JVD. ABDOMEN: Soft, +hernia EXTREMITIES: No edema. Non-tender. SKIN: No rashes or lesions. Warm. NEUROLOGIC: No focal neurological deficits. CN II-XII grossly intact PSYCHIATRIC: Cooperative. Appropriate mood and affect [facility] Medical History Itching Obesity (BMI 30-39.9) Sepsis Diverticulitis of both large and small intestine with perforation and abscess Diverticulitis of large intestine with abscess Morbid obesity with BMI of 50.0-59.9, adult Hypertension Vitamin D deficiency B12 deficiency Diabetic nephropathy associated with type 2 diabetes mellitus Dyslipidemia Hirsutism Diabetes type 2, uncontrolled Surgical History Hx of abdominal surgery Hx of umbilical hernia repair History of ankle surgery Hx of section Family History Father Throat cancer Cirrhosis Mother Diabetes Social History Household Members: None Housing: House Do you presently have visiting nurse or other home services: Yes Alcohol intake: former Patient Tobacco Use Status: Current everyday Tobacco user Tobacco use type: Cigarette Cigarettes Per Day: 5 Years Smoked: 30 e-Cigarette/Vaping Use: Never Used Second Hand Smoke Exposure: Yes Substance Use Type: Marijuana Advance Directives Date on File: 05/05/21 service: No Current occupational status: disabled Cognitive needs: No Hearing needs: No Vision needs: Yes Physical Exam Vital Signs: Last Vital Signs Pulse 95 06/27/24 15:03 BP 120/80 06/27/24 15:03 BMI result Body Mass Index 35.6 Results Reviewed Results Reviewed: Laboratory Last Values Glucose (Clinic) 173 mg/dL (60-115) H 06/27/24 15:13 Assessment & Plan Assessment & Plan (1) Insulin dependent type 2 diabetes mellitus: Code(s): E11.9 - Type 2 diabetes mellitus without complications; Z79.4 - termite treater helper (current) use of insulin Category: Medical Plan: Discussed compliance with meds, glucose monitoring She will return in a few weeks to review actual glucose control Medications: Refilled insulin glargine (Lantus Solostar U-100 Insulin) 80 units (0.8 mL) subcut BEDTIME 30 mL 5RF Ozempic (semaglutide) 2 mg (0.75 mL) subcut QWEEK 9 mL 3RF NS E11.21 - Type 2 diabetes mellitus with diabetic nephropathy flash glucose sensor (FreeStyle Tiff 2 Sensor kit) DIRECTED EVERY 2 WEEKS 6 ea 3RF E11.21 - Type 2 diabetes mellitus with diabetic nephropathy Coding Level of Care Code Est Pt Level 4 (81840) Diagnoses Insulin dependent type 2 diabetes mellitus E11.9; Z79.4
[2024-06-27 15:03] VITALS: BP 120/80; PULSE 95; BMI 35.6
[2024-06-27 15:16] LABS: Glucose, Whole Blood 173 mg/dL (60-115)
--- OUTSIDE RECORDS SUMMARY | 2024-07-03 04:13 | XMS_ITS | Data Portability ---
Author Organization [place] [facility], Allergy Address [address] [place] [phone] Assessment Encounter Date Assessment Date Assessment LastModified by Organization Details LastModified Time 12/29/2023 12/29/2023 48-year-old chepe duke presents for evaluation of 2 separate issues. Otologic exam shows cerumen in the left ear which was removed. TMs normal to inspection. No significant tenderness to palpation of TMJ. Oral cavity shows no mass or lesion. Could not remove upper dentures as they were glued in place. I do believe her ear pain is referred from her jaw. Likely related to bruxism and poorly fitting dentures. I recommended she follow-up with her dentist. In regard to her disequilibrium this is likely a byproduct of migraine. Audiometric testing was obtained today. Results show normal hearing and tympanometry bilaterally. We have discussed in detail the pathophysiology of migraine and the elimination of triggers. She was provided migraine diet. I have recommended she follow-up with her neurologist. I do not believe her disequilibrium is coming from an otologic source. [email or web address] Not available 12/29/2023 16:52:35 Plan of Treatment Reminders Order Date Submit Date Provider Last Modified By Organization Details Last Modified Time Details Appointments None recorded. Lab None recorded. Referral neurologist referral 2023 024 [email or web address] 2 [facility] Neurology Scheduling, [address] [place], [address], 4 10:41:05 Procedures None recorded. Surgeries None recorded. Imaging None recorded. Medication Orders None recorded. Patient TargetsNo targets recorded. Patient InstructionsNo instructions recorded. Reason for Referral Neurologist Referral for Burt roddy without aura Referring Physician: Junie Rich Otolaryngology, Encounter Date: 12/29/2023 Results Created Date Observation Date Name Description Value Unit Range Abnormal Flag Note LastModifiedBy Organization Detail LastModifiedTime 01/03/20 24 audio gram No observ ation record ed. BARCODE Not Available 2023 12:57:38 Result Notes None recorded. Problems Name Problem SNOMED Code Status Onset Date Resolution Date Notes Provider Name and Address Organization Details Recorded Time Abnormal auditory perception 90504041 Active 2023 Savannah chicas [place] - [facility] 16:32:03 Migraine without aura 35319094 Active 2023 JUNIE RICH PA-C [address] [place] [address],[address], [phone], [facility] 4 16:52:39 Dizziness and giddiness 132711411 Active 2023 JUNIE RICH PA-C [address] [place] [address],[address], [phone], [facility] 4 16:52:43 Bilateral earache 867120232 Active 2023 JUNIE RICH PA-C [address] [place] [address],[address], [phone], [facility] 4 16:52:54 Bilateral temporomand ibular joint pain 8333010120306 9105 Active 2023 JUNIE RICH PA-C [address] [place] [address], [address] [place] [address], [phone], [facility] 4 16:53:00 Problem Notes None recorded. Procedures Surgical History Date Name Laterality Status Provider Name and Address Organization Details Recorded Time Comp Audio with Tymps (95300 & [address]6712) completed Savannah Goldsmith [place] - [facility] 12/29/2023 16:30:31 Cerumen removal without microscope left completed JUNIE RICH PA-C [address] [place] [address],[place] [address], [place], [phone], [facility] - [facility] 12/29/2023 14:56:07 Imaging Results Imaging Date Name Status LastModified by Organiz ation Details LastModified Time 01/03/2024 audiogram completed BARCODE Information no t available 01/03/2024 12:57:38 Procedure Notes None recorded. Medical Equipment None Reported. Medications Name Sig Start Date Stop Date Status Note LastModified by Organization Details LastModified Time atorvastatin 40 mg tablet TAKE 1 TABLET BY MOUTH AT BEDTIME active Not Available Not Available No t Available albuterol sulfate 2.5 mg/3 mL (0.083 %) solution for nebulization INHALE 2.5 MG (3 ML) EVERY 6 HOURS NEEDED FOR SHORTNESS OF BREATH OR WHEEZING FOR 30 DAYS active Not Available Not Available Not Available diltiazem CD 180 mg capsule,exte nded release 24 hr TAKE 1 CAPSULE BY MOUTH EVERY DAY active Not Available Not Available No t Available benzonatate 200 mg capsule TAKE 1 CAPSULE BY MOUTH 3 TIMES A DAY NEEDED FOR COUGH *NOT COVERED active Not Available Not Available No t Available ondansetron HCl 8 mg tablet TAKE 1 TABLET BY MOUTH EVERY 12 HOURS FOR 15 DAYS active Not Available Not Available Not Available famotidine 40 mg tablet TAKE 1 TABLET BY MOUTH EVERYDAY AT BEDTIME active Not Available Not Available No t Available amlodipine 5 mg tablet active Not Available Not Available No t Available ondansetron 8 mg disintegrati ng tablet DISSOLVE 1 TABLET ORALLY EVERY 12 HOURS NEEDED FOR NAUSEA AND VOMITING FOR 10 DAYS active Not Available Not Available Not Available ofloxacin 0.3 % ear drops INSTILL 10 DROPS INTO THE EARS DAILY FOR 7 DAYS active Not Available Not Available No t Available dicyclomine 20 mg tablet TAKE 1 TABLET BY MOUTH 3 TIMES A DAY NEEDED FOR ABDOMINAL PAIN FOR 15 DAYS active Not Available Not Available No t Available dexamethason e 1 mg tablet TAKE 1 TABLET BY MOUTH ONCE active Not Available Not Available N ot Available meclizine 25 mg tablet TAKE 1 TABLET BY MOUTH 3 TIMES A DAY NEEDED FOR DIZZINESS FOR 15 DAYS active Not Available Not Available Not Available doxycycline monohydrate 100 mg capsule TAKE 1 CAPSULE BY MOUTH TWICE A DAY FOR 7 DAYS active Not Available Not Available No t Available simvastatin 20 mg tablet TAKE 1 TABLET BY MOUTH EVERY DAY FOR 30 DAYS active Not Available Not Available No t Available erythromycin 5 mg/gram (0.5 %) eye ointment APPLY 1/4 INCH TO SURGICAL AREA 3 TIMES A DAY BRING MEDICATION TO SURGERY UN OPENED active Not Available Not Available No t Available Advair Diskus 250 mcg-50 mcg/dose powder for inhalation INHALE 1 PUFF BY MOUTH TWICE A DAY active Not Available Not Available No t Available docusate sodium 100 mg capsule TAKE 1 CAPSULE BY MOUTH EVERYDAY AT BEDTIME active Not Available Not Available No t Available codeine 10 mg-guaifenes in 100 mg/5 mL oral liquid PLEASE SEE ATTACHED FOR DETAILED DIRECTIONS active Not Available Not Available N ot Available cefuroxime axetil 500 mg tablet TAKE 1 TABLET BY MOUTH EVERY 12 HOURS active Not Available Not Available No t Available Ventolin HFA 90 mcg/actuatio n aerosol inhaler INHALE 2 PUFFS EVERY 4 TO 6 HOURS NEEDED FOR SHORTNESS OF BREATH OR FOR WHEEZE active Not Available Not Available No t Available oxycodone 5 mg tablet TAKE 1 TABLET BY MOUTH TWICE A DAY NEEDED FOR PAIN active Not Available Not Available No t Available Vitamin D3 25 mcg (1,000 unit) capsule TAKE 1 CAPSULE BY MOUTH EVERY DAY active Not Available Not Available No t Available metoprolol tartrate 25 mg tablet TAKE 1 TABLET BY MOUTH DAILY active Not Available Not Available Not Available fenofibrate nanocrystall ized 145 mg tablet TAKE 1 TABLET BY MOUTH EVERY DAY active Not Available Not Available No t Available FreeStyle Lite Meter kit USE DIRECTED active Not Available Not Available No t Available FreeStyle Lite Strips TESTING 3X DAILY active Not Available Not Available No t Available Lantus Solostar U-100 Insulin 100 unit/mL (3 mL) subcutaneous pen INJECT 80 UNIT (0.8 ML) SUBCUTANEOU SLY BEDTIME active Not Available Not Available Not Available oxycodone 10 mg tablet TAKE 1 TABLET ORALLY EVERY 8 HOURS NEEDED FOR PAIN FOR 7 DAYS PARTIAL FILL UPON PATIENT REQUEST. active Not Available Not Available No t Available Gavilax 17 gram/dose oral powder DISSOLVE 17 GM IN WATER AND TAKE BY MOUTH DAILY active Not Available Not Available Not Available FreeStyle Tiff 2 Sensor kit USE DIRECTED EVERY 2 WEEKS active Not Available Not Available No t Available Ozempic 1 mg/dose (4 mg/3 mL) subcutaneous pen injector INJECT 1 MG (0.75 ML) SUBCUTANEOU SLY WEEKLY active Not Available Not Available N ot Available insulin glargine-yfg n (U-100) 100 unit/mL (3 mL) subcutaneous pen INJECT 80 UNITS SUBCUTANEOU SLY AT BEDTIME active Not Available Not Available No t Available Ozempic 2 mg/dose (8 mg/3 mL) subcutaneous pen injector INJECT 2 MG (0.75 ML) SUBCUTANEOU SLY EVERY WEEK active Not Available Not Available No t Available Mounjaro 7.5 mg/0.5 mL subcutaneous pen injector INJECT 7.5MG (0.5ML) SUBCUTANEOU SLY EVERY WEEK active Not Available Not Available No t Available Mounjaro 10 mg/0.5 mL subcutaneous pen injector INJECT 10 MG (0.5 ML) SUBCUTANEOU SLY EVERY WEEK active Not Available Not Available No t Available Ozempic 0.25 mg or 0.5 mg (2 mg/3 mL) subcutaneous pen injector INJECT 0.5 MG (0.736 ML) SUBCUTANEOU SLY EVERY WEEK FOR 4 WEEKS active Not Available Not Available No t Available Vitals None Recorded Social History None recorded. Functional Status None recorded. Mental Status None recorded. Family History Nothing Reported. Medical History No medical history recorded. Gynecological HistoryNo gynecological history recorded. Obstetrics History GPAL:G 0 P 0 0 0 0 Past Encounters Encounter ID Performer Location Encounter Start Date Encounter Closed Date Diagnosis/Indication Diagnosis SNOMED-CT Code Diagnosis ICD10 Code [id number] JUNIE RICH PA-C [facility] [address] [address] 12/29/2023 13:49:33 12/29/2023 16:39:20 Abnormal auditory perception 62106174 H93.299 Migraine without aura 56 361696 G43.009 Dizziness and giddiness 937392684 R42 Bilateral earache 878304 003 H92.03 Bilateral temporomandibular joint pain 6780055853 4155417 M26.623 Health Concerns Section Related Observation LastModified by Organization Detai ls LastModified Time None Recorded Concern Status LastModified by Organization Details LastModified Time None Recorded Advance Directives Directive None Recorded Payers Encounter Date Sequence Insurance Name Policy Number Policy Rodriguez Covered Member ID Rodriguez Member ID Guarantor Name 12/29/2023 1 [facility]MEDICAID HMO) BURTON Quiñonez [id number] Mckenzie Gutierresrio Notes Date Note Type Note Provider Name and Address Organization Details Recorded Time 12/29/2023 text/html 48-year-old chepe duke presents for evaluation of ear pain and disequilibrium. Patient states that for around 2 years she has had bilateral intermittent ear pain. It switches sides. Describes it as sharp and shooting. No changes to hearing or ear drainage. Does have a history of smoking but no other red flag symptoms. History of bruxism and has top dentures which she feels do not fit well at all. Secondly, she is having disequilibrium which has been present for around the same amount of time. She has a history of migraine with sensitivity to light and sound as well as nausea and vomiting. She often has a sensation as if the room is spinning. The longest this is lasted was upwards of an hour. Has a neurologist but has not seen them in several years. JUNIE RICH PA-C [address] [place] [address], [place], [address], [facility] - [facility] 12/29/2023 16:53:54 OBGyn Episode No OBEpisode recorded.
== END 2024-06-27 15:28 | disposition home or self-care (01) ==
PROVIDERS: PCP Physician Assistant; Visit Provider Internal Medicine
DX: E11.9 Type 2 diabetes mellitus without complications (principal); Z79.4 Long term (current) use of insulin

== ENCOUNTER → 2024-06-27 14:59 | Outpatient (BNVA) | payer OTHER, SELFPAY | PROVIDERS: PCP Physician Assistant; Visit Provider Internal Medicine | DX: E11.40 Type 2 diabetes mellitus with diabetic neuropathy, unspecified (principal); E78.5 Hyperlipidemia, unspecified; E55.9 Vitamin D deficiency, unspecified; I10 Essential (primary) hypertension; Z79.4 Long term (current) use of insulin | CPT/HCPCS: 82947; 99212 ==

== ENCOUNTER 2024-08-08 08:43 | Outpatient (AMB) | payer OTHER, SELFPAY ==
--- NOTE | 2024-08-08 08:45 | A.OFFVIS_ITS ---
Vital Signs 08/08/24 08:51 Height 5 ft 5 in Weight 209 lb 7.026 oz BMI 34.8 BP 118/72 Blood Pressure Location Rt brachial Position Sitting Pulse 101 H Pulse Source Pulse Oximeter Intake Visit Reasons: DM Intake Note: Patient presents here today to for a follow-up on DM TYPE 2. Last Diabetic eye exam was on: 11/2023 Last Podiatry exam was on: Does not see a Machine Staker Most recent HbA1c: 9.5%, 08/08/2024 Random Glucose- 255 mg/dL, Today Escort Service Attendant Required: No Accompanied by: Self / Same As Patient Allergies latex [LATEX] Allergy (Mild, Verified 06/27/24 15:04) RASH Iodinated Contrast Media [IV Contrast Dye] Allergy (Verified 06/27/24 15:04) Anaphylaxis amoxicillin Adverse Reaction (Unknown, Verified 06/27/24 15:04) vaginal infection dulaglutide [From Trulicity] Adverse Reaction (Unknown, Verified 06/27/24 15:04) vomitting, nausea semaglutide [From Ozempic] Adverse Reaction (Unknown, Verified 06/27/24 15:04) Chest pain, vomitting HPI Comments Details: Patient is a 48-year-old female with DM type 2 diagnosed who presents for management of diabetes. Past medical history: DM2, HTN, Hirsutism, dyslipidemia, vitamin d deficiency. Micro and macrovascular complications: Nephropathy Diabetes medications: Currently prescribed ozempic 2mg weekly, lantus 80 units daily. Has not been taking any medications. Her incisional hernia has been very painful. Previous: She was prescribed lantus 80 units and 15-20 humalog with meals. Had dizziness with Trulicity. Intolerant of mounjaro. CGM, Freestyle Tiff. Has not been using. Has not been checking glucose unless feeling poorly. A1C is 9.5 today Symptoms reported: numbness, tingling, cramping in lower extremities Hypoglycemia: No. drinks orange juice which brings it up but doesnt sustain long enough Hyperglycemia: denies urinary frequency, denies excessive thirst Optho: says utd Does not see podiatry ROS see HPI PHYSICAL EXAM: GENERAL: Alert and oriented x 3. NAD EYES: EOMI. Anicteric. HENT: Moist mucous membranes. No scleral icterus. No cervical lymphadenopathy. LUNGS: Clear to auscultation bilaterally. CARDIOVASCULAR: Regular rate and rhythm. No murmur. No JVD. ABDOMEN: Soft, +hernia EXTREMITIES: No edema. Non-tender. SKIN: No rashes or lesions. Warm. NEUROLOGIC: No focal neurological deficits. CN II-XII grossly intact PSYCHIATRIC: Cooperative. Appropriate mood and affect COUNT INCLUDES THE [facility] Medical History Itching Obesity (BMI 30-39.9) Sepsis Diverticulitis of both large and small intestine with perforation and abscess Diverticulitis of large intestine with abscess Morbid obesity with BMI of 50.0-59.9, adult Hypertension Vitamin D deficiency B12 deficiency Diabetic nephropathy associated with type 2 diabetes mellitus Dyslipidemia Hirsutism Diabetes type 2, uncontrolled Surgical History Hx of abdominal surgery Hx of umbilical hernia repair History of ankle surgery Hx of section Family History Father Throat cancer Cirrhosis Mother Diabetes Social History Household Members: None Housing: House Do you presently have visiting nurse or other home services: Yes Alcohol intake: former Patient Tobacco Use Status: Current everyday Tobacco user Tobacco use type: Cigarette Cigarettes Per Day: 5 Years Smoked: 30 e-Cigarette/Vaping Use: Never Used Second Hand Smoke Exposure: Yes Substance Use Type: Marijuana Advance Directives Date on File: 05/05/21 service: No Current occupational status: disabled Cognitive needs: No Hearing needs: No Vision needs: Yes Physical Exam Vital Signs: Last Vital Signs Pulse 101 H 08/08/24 08:51 BP 118/72 08/08/24 08:51 BMI result Body Mass Index 34.8 Results AMB Hemoglobin A1c AMB Hemoglobin A1c 9.5 % Last Edit by LYNDSEY [place] on 08/08/24 09:05 Results Reviewed Results Reviewed: Laboratory Last Values Glucose (Clinic) 255 mg/dL (60-115) H 08/08/24 08:53 Hgb A1c (Clinic) 9.5 % (4.0-6.0) H 08/08/24 08:59 Assessment & Plan Assessment & Plan (1) Diabetes type 2, uncontrolled: Code(s): E11.65 - Type 2 diabetes mellitus with hyperglycemia Category: Medical Qualifiers: Glycemic state: with hyperglycemia Qualified Code(s): E11.65 - Type 2 diabetes mellitus with hyperglycemia Plan: Poorly controlled Non compliant. Discussed need to get blood gluocse down especially in light of the fact that she necessitates a surgery in the near future Discussed with patient at the least to take ozempic 2mg weekly, take 20 units of lantus daily and start actos 30mg daily. she will return in 4 weeks Orders: Orders AMB Hemoglobin A1c Today E11.65 - Type 2 diabetes mellitus with hyperglycemia Medications: New pioglitazone 30 mg PO DAILY 90 tabs 3RF Changed From insulin glargine (Lantus Solostar U-100 Insulin) 80 units (0.8 mL) subcut BEDTIME 30 mL 5RF To insulin glargine (Lantus Solostar U-100 Insulin) 20 units (0.2 mL) subcut BEDTIME 30 mL 5RF Coding Level of Care Code Est Pt Level 4 (80623) Diagnoses Uncontrolled type 2 diabetes mellitus with hyperglycemia E11.65 Glycemic state: with hyperglycemia
[2024-08-08 08:51] VITALS: BP 118/72; PULSE 101; BMI 34.8
[2024-08-08 09:00] LABS: Glucose, Whole Blood 255 mg/dL (60-115)
== END 2024-08-08 09:25 | disposition home or self-care (01) ==
PROVIDERS: PCP Physician Assistant; Visit Provider Internal Medicine
DX: E11.65 Type 2 diabetes mellitus with hyperglycemia (principal)

== ENCOUNTER → 2024-08-08 08:43 | Outpatient (BNVA) | payer OTHER, SELFPAY | PROVIDERS: PCP Physician Assistant; Visit Provider Internal Medicine | DX: E11.65 Type 2 diabetes mellitus with hyperglycemia (principal) | CPT/HCPCS: 82947; 83036; 99212 ==

== ENCOUNTER 2024-08-20 07:49 | Outpatient (AMB) | payer OTHER, SELFPAY ==
--- OUTSIDE RECORDS SUMMARY | 2024-08-20 07:51 | XMS_ITS | Encounter Summary ---
Author Organization [facility] Address [address] [place] [address] Care Team Providers Care Clerical Office Name Role Phone Mara Mcelroy MD Primary Care Provider Diogo Peck MD Primary Care Provider [phone] [facility]ly [facility], Pcp Primary Care Provider Unavailabl e Reason for Visit * Reason Onset Date Comments Pre-visit Diabetes Lab Adult Medicine 05/22/2019 DM due 06/05/2019 at 845 Encounter Details Date Type Department Care Team Description 05/22/2019 Telephone Respiratory and Diabetes Medicaid/ACO Pharmacist [address] [place] [id number] Mara Mcelroy MD Pre-visit Diabetes Lab Adult Medicine (DM due 06/05/2019 at 845) Social History Tobacco Use Types Packs/Day Years Used Date Smoking Tobacco: Every Day Cigarettes 0.8 26 Smokeless Tobacco: Never Alcohol Use Standard Drinks/Week Comments No 0 (1 standard drink = 0.6 oz pur e alcohol) Sex Assigned at Date Recorded Not on file documented as of this encounter Miscellaneous Notes * Telephone Encounter - Mara Mcelroy MD - 05/22/2019 8:43 PM EDT signed * Telephone Encounter - Melinda Farmer - 05/22/2019 1:41 PM EDT Mckenzie Quiñonez is scheduled to see you on 06/05/2019 for diabetes follow up . I have contacted thepatient and instructed them to have their labwork done 1 week prior to the appointment. Diabetes pre-visit orders have been pended. Please sign the orders then route the encounter back to sender . Do not close the encounter. If there are other orders you would like performed prior to the visit, please add them to the pended orders then sign all the orders. I would ask that any orders entered by the [facility] Medicaid staff be associated with a diabetes diagnosis. You can use any diabetes diagnosis found on the problem list. Melinda Farmer Community Health Worker [facility] Plan [facility] [email or web address] W [phone] F [phone] documented in this encounter Plan of Treatment Not on file documented as of this encounter Results * MICROALBUMIN/CREATININE, URINE (07/29/2019 4:27 PM EST) CREATININE, RANDOM URINE 148 mg/dL 07/29/2019 8:01 PM EST [email or web address] MICROALBUMIN, RANDOM 10.0 0.0 - 29.0 mg/L 07/29/2019 8:08 PM EST [facility] MICROALB/CRE RATIO RANDOM 6.7 0.0 - 30.0 mg/G 07/29/2019 8:08 PM EST [facility] 07/29/2019 4:27 PM EST 07/29/2019 4:27 PM EST Mara Mcelroy MD LAB [facility] * (ABNORMAL) LIPID PROFILE (07/29/2019 4:14 PM EST) Cholesterol 240(H) 0 - 200 mg/dL 07/29/2019 7:55 PM EST [facility] TRIGLYCERIDES 324(H) 0 - 150 mg/dL 07/29/2019 7:55 PM EST [facility] HDL CHOLESTEROL 26(L) >40 mg/dL 0 7:55 PM EST [facility] LDL CALCULATED 150(H) 0 - 100 mg/dL 07/29/2019 7:55 PM EST [facility] TC-HDLC RATIO 9.2(H) 0 - 4.4 mg/dL 07/29/2019 7:55 PM EST [facility] 07/29/2019 4:14 PM EST 07/29/2019 4:14 PM EST Mara Mcelroy MD LAB Performing Organization Address City/[facility]/ZIP Co de Phone Number [facility] * BASIC METABOLIC PANEL (07/29/2019 4:14 PM EST) GLUCOSE 71 70 - 100 mg/dL 07/29/2019 7:55 PM EST [facility] Comment:Reference range appl icable to fasting specimens only Blood Urea Nitrogen 7 5 - 25 mg/dL 07/29/2019 7:55 PM EST [facility] CREAT 0.76 0.5 - 1.1 mg/dL 07/29/2019 7:55 PM EST [facility] GLOMERULAR FILTRATION RATE > 60 07/29/2019 7:55 PM EST [facility] Comment: If patient is -Salvadorean, multiply result by 1.21 Chronic Kidney Disease: < 60 ml/min/1.73 square meters Kidney Failure: < 15 ml/min/1.73 square meters NA 138 135 - 145 mEq/L 07/29/2019 7:55 PM EST [facility] K 4.3 3.5 - 5.5 mmol/L 07/29/2019 7:55 PM EST [facility] CL 106 96 - 110 mmol/L 07/29/2019 7:55 PM EST [facility] CARBON DIOXIDE (CO2) 28 21 - 32 mmol/L 07/29/2019 7:55 PM EST [facility] ANION GAP 4 3 - 11 07/29/2019 7:55 PM EST [facility] CALCIUM 9.1 8.5 - 10.5 mg/dL 07/29/2019 7:55 PM EST [facility] 07/29/2019 4:14 PM EST 07/29/2019 4:14 PM EST Mara Mcelroy MD LAB Performing Organization Address City/[facility]/ZIP Co de Phone Number [email or web address] * (ABNORMAL) HEMOGLOBIN A1C (07/29/2019 4:14 PM EST) GLYCATED HEMOGLOBIN A1C 6.7(H) <6.5 % 07/30/2019 10:22 AM EST [facility] ESTIMATED AVERAGE GLUCOSE 146 mg/dL 07/30/2019 10:22 AM EST [facility] 07/29/2019 4:14 PM EST 07/29/2019 4:14 PM EST Mara Mcelroy MD LAB [facility] documented in this encounter Visit Diagnoses Diagnosis Type 2 diabetes mellitus without complication, with long-term current use of insulin (HCC)- Primary documented in this encounter Care Teams Clerical Office Relationship Specialty Start Date End Date Mara Mcelroy MD PCP - General Internal Medicine 08/20/15 10/12/20 Diogo Wright MD [address] [place] [address] PCP - General Internal Medicine 10/13/20 11/01/21 [place] [address] PCP - General Internal Medicine 11/02/21 documented as of this encounter
--- OUTSIDE RECORDS SUMMARY | 2024-08-20 07:51 | XMS_ITS | Encounter Summary ---
Author Organization [facility] Address [address] [place] [address] Care Team Providers Care Automobile Tester Name Role Phone Mara Mcelroy MD Primary Care Provider Diogo Peck MD Primary Care Provider [phone] [facility], Pcp Primary Care Provider [facility] saige Encounter Details Date Type Department Care Team Description 10/04/2019 Play Writer Report Medical Records [address] [place] [id number] [facility] Social History Tobacco Use Types Packs/Day Years Used Date Smoking Tobacco: Every Day Cigarettes 0.8 26 Smokeless Tobacco: Never Alcohol Use Standard Drinks/Week Comments No 0 (1 standard drink = 0.6 oz pur e alcohol) Sex Assigned at Date Recorded Not on file documented as of this encounter Plan of Treatment Not on file documented as of this encounter Visit Diagnoses Not on filedocumented in this encounter Care Teams Automobile Tester Relationship Specialty Start Date End Date Mara Mcelroy MD PCP - General Internal Medicine 08/20/15 10/12/20 Diogo Wright MD [address] [place] [address] PCP - General Internal Medicine 10/13/20 11/01/21 [facility], Pcp [address] [place] [address] PCP - General Internal Medicine 11/02/21 documented as of this encounter
--- OUTSIDE RECORDS SUMMARY | 2024-08-20 07:52 | XMS_ITS | Encounter Summary ---
Author Organization [facility] Address [address] [place] [address] Care Team Providers Care Ornamental Metal Erector Name Role Phone Mara Mcelroy MD Primary Care Provider Diogo Peck MD Primary Care Provider [phone] [facility], Pcp [facility] Encounter Details Date Type Department Care Team Description 04/30/2018 PNO Controlled Substance Contract Medical Records [address] [place] [id number] Abstract, Provider Social History Tobacco Use Types Packs/Day Years Used Date Smoking Tobacco: Every Day Cigarettes 0.5 26 Smokeless Tobacco: Never Alcohol Use Standard Drinks/Week Comments No 0 (1 standard drink = 0.6 oz pur e alcohol) Sex Assigned at Date Recorded Not on file documented as of this encounter Plan of Treatment Not on file documented as of this encounter Visit Diagnoses Not on filedocumented in this encounter Care Teams Ornamental Metal Erector Relationship Specialty Start Date End Date Mara Mcelroy MD PCP - General Internal Medicine 08/20/15 10/12/20 Diogo Wright MD [address] [place] [address] [phone] PCP - General Internal Medicine 10/13/20 11/01/21 [facility], Pcp [address] [place] [id number] PCP - General Internal Medicine 11/02/21 documented as of this encounter
--- OUTSIDE RECORDS SUMMARY | 2024-08-20 07:52 | XMS_ITS | Encounter Summary ---
Author Organization [facility] Address [address] [place] [address] [address] [address] Care Team Providers Care Lesson Instructor Name Role Phone Unavailable Primary Care Provider Unavailabl e Reason for Visit * Reason Comments Extraction Patient present toda y for extraction ade RDA Encounter Details Date Type Department Care Team ([facility] st Contact Info) Description 07/26/2024 8:00 AM EST Office Visit [facility] ADULT DENTAL [address] [place], [place] [phone] Nirmal Odell, LISA [address] [place], [place] [phone] Periodontal disease (Primary Dx); Dental caries Social History Tobacco Use Types Packs/Day Years Used Date Smoking Tobacco: Every Day Cigarettes Passive Smoke Exposure: Never Alcohol Use Standard Drinks/Week Comments Never 0 (1 standard drink = 0.6 oz pur e alcohol) Comments No Sex and Gender Information Value Date Recorded Sex Assigned at Female 05/23/2022 10:26 AM EDT Legal Sex Female 10:26 AM EDT Gender Identity Female 05/23/2022 10:26 AM EDT Sexual Orientation Straight 05/23/2022 10 :26 AM EDT documented as of this encounter Last Filed Vital Signs Vital Sign Reading Time Taken Comments Blood Pressure 120/80 07/26/2024 8:12 AM EST Pulse - - Temperature - - Respiratory Rate - - Oxygen Saturation - - Inhaled Oxygen Concentration - - Weight - - Height - - Body Mass Index - - documented in this encounter Progress Notes * Nirmal Odell DMD - 07/26/2024 8:00 AM EST Patient ID: Mckenzie Quiñonez is a 48 y.o. female. Time Out: Timeout Date: 07/26/24, Timeout Time: 0818 (EXT #2,15) Location: [facility] Tooth: #2 and #15 Procedure: Extraction Verified the above with patient, assistant real estate manager, and provider. Confirmed via patient's chart, intraorally and by radiographs. Superintendent Production: not applicable Chief Complaint Patient presents with Extraction Patient present today for extraction ade BACON Medical Hx: Vitals: Blood pressure 120/80. Past Medical History: Diagnosis Date Diabetes mellitus ([facility]) Hypertension Medications: Outpatient Encounter Medications as of 07/26/2024 Medication Sig Dispense Refill amoxicillin-clavulanate (Augmentin) 500-125 MG tablet Take 1 tablet (500 mg) by mouth 3 times daily. (Patient not taking: Reported on 07/25/2024) 30 tablet 0 atorvastatin (Lipitor) 40 MG tablet Take 1 tablet by mouth at bedtime. cholecalciferol (Vitamin D-3) 50 MCG (2000 UT) tablet Take 2,000 Units by mouth Once per day. Dulaglutide (Trulicity) 0.75 MG/0.5ML solution auto-injector Inject 0.75 mg into the skin daily. fenofibrate (Tricor) 145 MG tablet Take 145 mg by mouth in the morning. fluticasone-salmeterol (Advair) 115-21 MCG/ACT inhaler Inhale 2 puffs in the morning and at bedtime. Rinse mouth with water after use to reduce aftertaste and incidence of candidiasis. Do not swallow. insulin glargine (Lantus) 100 UNIT/ML injection Inject under the skin at bedtime. oxyCODONE (Roxicodone) 10 MG immediate release tablet TAKE 1 TABLET ORALLY EVERY 8 HOURS NEEDED FOR PAIN FOR 7 DAYS PARTIAL FILL UPON PATIENT REQUEST. Sodium Fluoride 1.1 % cream [place] teeth for 2 minutes, morning and night. Spit, do not rinse. Do not eat or drink anything for 30 minutes following use. 112 g 3 Tirzepatide (Mounjaro) 10 MG/0.5ML solution pen-injector Inject under the skin. No facility-administered encounter medications on file as of 07/26/2024. Consent Obtained: The risks, benefits, indications, potential complications, and alternatives were explained to the patient and informed consent was obtained with good understanding. 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 Pharyngeal curtain and bite block placed. Removed tooth with elevators and forceps. Apices intact. Surgical Extraction: N/A Socket curetted & irrigated with sterile water. Compressed alveolar bone. Sutures: None Needed All adjacent teeth intact. Hemostasis achieved. Complications: None Written and verbal post-op instructions given. Patient discharged in stable condition; ambulatory, alert, and oriented. NV: Sisi Material Mover: Ade Arevalo Dentist: Nirmal Odell DMD documented in this encounter Plan of Treatment Upcoming Encounters Date Type Department Care Team (Late st Contact Info) Description 09/03/2024 10:00 AM EST Office Visit [facility] ADULT DENTAL [address] [place] [address] Nirmal Odell DMD [address] [place] [address] documented as of this encounter Procedures Procedure Name Priority Date/Time Associated Diagnosis Comments 2 EXTRACTION, ERUPTED TOOTH OR EXPOSED ROOT (ELEVATION AND/OR FORCEPS REMOVAL) Routine 07/26/2024 8:00 AM EST Periodontal disease Dental caries 15 EXTRACTION, ERUPTED TOOTH OR EXPOSED ROOT (ELEVATION AND/OR FORCEPS REMOVAL) Routine 07/26/2024 8:00 AM EST Periodontal disease Dental caries ADJUNCTIVE GENERAL SERVICES - PROFESSIONAL VISITS - CASE PRESENTATION, SUBSEQUENT TO DETAILED AND EXTENSIVE TREATMENT PLANNING Routine 07/26/2024 8:00 AM EST Periodontal disease Dental caries documented in this encounter Visit Diagnoses Diagnosis Periodontal disease- Primary Unspecified gingival and periodontal disease Dental caries Unspecified dental caries documented in this encounter
--- OUTSIDE RECORDS SUMMARY | 2024-08-20 07:52 | XMS_ITS | Encounter Summary ---
Author Organization [facility] Address [address] [place] [address] Care Team Providers Care Legislative Correspondent Name Role Phone Mara Mcelroy MD Primary Care Provider Diogo Peck MD Primary Care Provider [phone] [facility], Pcp Primary Care Provider [facility] saige Encounter Details Date Type Department Care Team Description 12/11/2015 Controlled Substance Contract with Plan Medical Records [address] [place] [id number] Abstract, Provider Social History Tobacco Use Types Packs/Day Years Used Date Smoking Tobacco: Every Day Cigarettes 1 26 Alcohol Use Standard Drinks/Week Comments No 0 (1 standard drink = 0.6 oz pur e alcohol) Sex Assigned at Date Recorded Not on file documented as of this encounter Plan of Treatment Not on file documented as of this encounter Visit Diagnoses Not on filedocumented in this encounter Care Teams Legislative Correspondent Relationship Specialty Start Date End Date Mara Mcelroy MD PCP - General Internal Medicine 08/20/15 10/12/20 Diogo Wright MD [address] [place] [address] [phone] PCP - General Internal Medicine 10/13/20 11/01/21 [facility], Pcp [address] [place] [phone] PCP - General Internal Medicine 11/02/21 documented as of this encounter
--- OUTSIDE RECORDS SUMMARY | 2024-08-20 07:52 | XMS_ITS | Encounter Summary ---
Author Organization [facility] Address [address] [place] [address] Care Team Providers Care Senior Cytotechnologist Name Role Phone Diogo Wright MD Primary Care Provider [phone] [facility], Pcp Primary Care Provider Unavailabl e Encounter Details Date Type Department Care Team Description 04/06/2021 Hospital Medical Records [address] [place] [address] Kaushik Gómez MD Social History Tobacco Use Types Packs/Day Years Used Date Smoking Tobacco: Every Day Cigarettes Smokeless Tobacco: Never Comments:started age 15; max 1PPD Alcohol Use Standard Drinks/Week Comments No 0 (1 standard drink = 0.6 oz pur e alcohol) Education Answer Date Recorded What is the highest level of school you have completed or the highest degree you have received? 8th grade 03/27/2020 Sex Assigned at Date Recorded Not on file documented as of this encounter Plan of Treatment Not on file documented as of this encounter Visit Diagnoses Not on filedocumented in this encounter Care Teams Senior Cytotechnologist Relationship Specialty Start Date End Date Diogo Wright MD [address] [place] [address] PCP - General Internal Medicine 10/13/20 11/01/21 [facility], Pcp [address] [place] [phone] PCP - General Internal Medicine 11/02/21 documented as of this encounter
--- OUTSIDE RECORDS SUMMARY | 2024-08-20 07:52 | XMS_ITS | Encounter Summary ---
Author Organization [facility] Address [address] [place] [address] Care Team Providers Care Christian Science Nurse Name Role Phone Mara Mcelroy MD Primary Care Provider Diogo Peck MD Primary Care Provider [phone] [facility], [facility]cp Primary Care Provider [facility] saige Encounter Details Date Type Department Care Team Description 04/06/2020 Orders Only Adult Medicine [facility] [address] [place] [address] Arlin Hoover PA-C [address] [place], [place] [phone] Vitamin D deficiency (Primary Dx) Social History Tobacco Use Types Packs/Day Years [...] Assigned at Date Recorded Not on file COVID-19 Exposure Response Date Recorded In the last month, have you been in contact with someone who was confirmed or suspected to have Coronavirus / COVID-19? No / Unsure 03/27/2020 1:19 PM EDT documented as of this encounter Plan of Treatment Scheduled Orders Name Type Priority Associated Diagnoses Orde r Schedule 25 HYDROXY INCLUDES FRACTIONS IF PERFORMED Lab Routine Vitamin D deficiency Expected: 07/06/2020, Expires: 04/06/2021 documented as of this encounter Visit Diagnoses Diagnosis Vitamin D deficiency- Primary Unspecified vitamin D deficiency documented in this encounter Care Teams Christian Science Nurse Relationship Specialty Start Date End Date Mara Mcelroy MD PCP - General Internal Medicine 08/20/15 10/12/20 Diogo Wright MD [address] [place] [phone] PCP - General Internal Medicine 10/13/20 11/01/21 [facility], [address] [phone] PCP - General Internal Medicine 11/02/21 documented as of this encounter
--- OUTSIDE RECORDS SUMMARY | 2024-08-20 07:52 | XMS_ITS | Encounter Summary ---
Author Organization [facility] Address [address] [place] [address] Care Team Providers Care Respiratory Care Specialist Name Role Phone Mara Mcelroy MD Primary Care Provider Diogo Peck MD Primary Care Provider [phone] [facility], Pcp Primary Care Provider [facility] Reason for Referral * Non LEANDRO (Routine) - Authorized/Booked Specialty Diagnoses / Procedures Referred By Alfred t Referred To Contact General Surgery Procedures REFERRAL TO GENERAL SURGERY Maurice Johnson PA-C [address] [place] [address] Fredrick Stokes MD [address] [place] [address] Referral ID Status Reason Start Date Expiration Date V isits Requested Visits Authorized [id number] Authorized/B ooked 2015 08/25/2016 12 12 Encounter Details Date Type Department Care Team Description 2015 Orders Only Medicine/Pediatrics - [address] [phone] Maurice Johnson PA-C Social History Tobacco Use Types Packs/Day Years Used Date Smoking Tobacco: Every Day Alcohol Use Standard Drinks/Week Comments Not Asked 0 (1 standard drink = 0.6 oz pur e alcohol) Sex Assigned at Date Recorded Not on file documented as of this encounter Plan of Treatment Not on file documented as of this encounter Visit Diagnoses Not on filedocumented in this encounter Care Teams Respiratory Care Specialist Relationship Specialty Start Date End Date Mara Mcelroy MD PCP - General Internal Medicine 08/20/15 10/12/20 Diogo Wright MD [address] [place] [phone] PCP - General Internal Medicine 10/13/20 11/01/21 [facility], Pcp [address] [place] [phone] PCP - General Internal Medicine 11/02/21 documented as of this encounter
--- OUTSIDE RECORDS SUMMARY | 2024-08-20 07:52 | XMS_ITS | Encounter Summary ---
Author Organization [facility] Address [address] [place] [address] Care Team Providers Care Manager Activities Name Role Phone Mara Mcelroy MD Primary Care Provider Diogo Peck MD Primary Care Provider [phone] [facility], Pcp [facility] Encounter Details Date Type Department Care Team Description 08/31/2018 Release of Information Medical Records [address] [place] [address] Abstract, Provider Social History Tobacco Use Types [...] on filedocumented in this encounter Care Teams Manager Activities Relationship Specialty Start Date End Date Mara Mcelroy MD PCP - General Internal Medicine 08/20/15 10/12/20 Diogo Wright MD [address] [place] [id number] PCP - General Internal Medicine 10/13/20 11/01/21 Pending [facility], Pcp [address] [place] [phone] PCP - General Internal Medicine 11/02/21 documented as of this encounter
--- OUTSIDE RECORDS SUMMARY | 2024-08-20 07:52 | XMS_ITS | Encounter Summary ---
Author Organization [facility] Address [address] [place] [address] Care Team Providers Care Bulldozer Press Operator Name Role Phone Mara Mcelroy MD Primary Care Provider Diogo Peck MD Primary Care Provider [facility] Encounter Details Date Type Department Care Team Description 09/18/2020 Old Medical Records Medical Records [address] [place] [address] Abstract, Provider Social History Tobacco Use Types [...] or suspected to have Coronavirus / COVID-19? Unable to assess 08/22/2020 1:20 PM EST documented as of this encounter Plan of Treatment Not on file documented as of this encounter Visit Diagnoses Not on filedocumented in this encounter Care Teams Bulldozer Press Operator Relationship Specialty Start Date End Date Mara Mcelroy MD PCP - General Internal Medicine 08/20/15 10/12/20 Diogo Wright MD [address] [place] [address] [phone] PCP - General Internal Medicine 10/13/20 11/01/21 [facility], Pcp [address] [place] [phone] PCP - General Internal Medicine 11/02/21 documented as of this encounter
--- OUTSIDE RECORDS SUMMARY | 2024-08-20 07:52 | XMS_ITS | Encounter Summary ---
Author Organization [employer] Address [address] [place] [address] [place], [place] [address] Care Team Providers Care Cooling Machine Operator Name Role Phone Unavailable Primary Care Provider Unavailabl e Reason for Visit * Reason Comments Filling Patient present toda y for fillings Flores BACON Encounter Details Date Type Department Care Team ([facility] st Contact Info) Description 08/02/2024 8:30 AM EST Office Visit [facility] ADULT DENTAL [address] [place], [place] [phone] Nirmal Odell, LISA [address] [place], [place] [phone] Dental caries (Primary Dx) Social History Tobacco Use Types [...] Sign Reading Time Taken Comments Blood Pressure 138/86 08/02/2024 8:40 AM EST Pulse - - Temperature - - Respiratory Rate - - Oxygen Saturation - - Inhaled Oxygen Concentration - - Weight - - Height - - Body Mass Index - - documented in this encounter Progress Notes * Nirmal Odell DMD - 08/02/2024 8:30 AM EST Patient ID: Mckenzie Quiñonez is a 48 y.o. female. Time Out: Timeout Date: 08/02/24, Timeout Time: 0847 (LYNDA # 26,29) Location: [facility] Tooth: #26 and #28 Procedure: Mandaeism Verified the above with patient, planning assistant, and provider. Confirmed via patient's chart, intraorally and by radiographs. Stacker Attendant: not applicable Chief Complaint Patient presents with Filling Patient present today for fillings Flores BACON Medical Hx: Vitals: Blood pressure 138/86. Medications, Med Hx reviewed with patient and updated in chart. Consent Obtained: The risks, benefits, indications, potential complications, and alternatives were explained to the patient and informed consent was obtained with good understanding. Treatment Provided: Dental procedures in this visit D2330 - RESIN-BASED COMPOSITE - 1 SURFACE, ANTERIOR 26 D (Completed) Service provider: Nirmal Odell DMD Billing provider: Nirmal Odell DMD D2393 - RESIN-BASED COMPOSITE - 3 SURFACES, POSTERIOR 29 MBB(V)L (Completed) Service provider: Nirmal Odell DMD Billing provider: Nirmal Odell DMD D9450 - CASE PRESENTATION, DETAILED AND EXTENSIVE TREATMENT PLANNING (Completed) Service provider: Nirmal Odell DMD Billing provider: Nirmal Odell DMD Diagnosis: primary caries into dentin #26-D, #29-MBB5L Pt asymptomatic Pt notes that she is feeling much better following EXTs #2,15 Clinically sites are healing well and normally Topical: 20% Benzocaine Anesthesia: 4% Septocaine (Articaine) w/ 1:200,000 epinephrine Number of Cartridges: 1 Injection Type: Buccal infiltration Confirmed profound anesthesia. Isolation: high speed suction, cotton rolls, and cheek guard Prep: All caries removed and Preparation finalized Note pt has large tongue, active and tight orbicularis carol muscle, and other teeth are sensitive, may benefit from rubber dam at NV Matrix: size 000 cord soaked in hemodent placed in sulcus for retraction, verified removal prior todischarge Etch: 37% Phosphoric Acid Etch Desensitizer: Gluma Liner/Base: None Potter: I-Potter Mandaeism Material: Voco Grandioso Packable Shade: A3 Polished. Occlusion & contacts verified. Patient satisfied with comfort and esthetics. Patient tolerated procedure well. Post-operative instructions were given. Patient departed alert, oriented, and in stable condition. NV: continue restos (consider rubber dam use) Mems Engineer: Flores Arevalo Dentist: Nirmal Odell DMD documented in this encounter Plan of Treatment Upcoming Encounters Date Type Department Care Team (Late st Contact Info) Description 09/03/2024 10:00 AM EST Office Visit [facility] ADULT DENTAL [address] [place] [address] Nirmal Odell DMD [address] [place] [address] documented as of this encounter Procedures Procedure Name Priority Date/Time Associated Diagnosis Comments 29 MBB(V)L RESTORATIVE - RESIN-BASED COMPOSITE RESTORATIONS - DIRECT - RESIN-BASED COMPOSITE - THREE SURFACES, POSTERIOR Routine 08/02/2024 8:30 AM EST Dental caries 26 D RESTORATIVE - RESIN-BASED COMPOSITE RESTORATIONS - DIRECT - RESIN-BASED COMPOSITE - ONE SURFACE, ANTERIOR Routine 08/02/2024 8:30 AM EST Dental caries ADJUNCTIVE GENERAL SERVICES - PROFESSIONAL VISITS - CASE PRESENTATION, SUBSEQUENT TO DETAILED AND EXTENSIVE TREATMENT PLANNING Routine 08/02/2024 8:30 AM EST Dental caries documented in this encounter Visit Diagnoses Diagnosis Dental caries- Primary Unspecified dental caries documented in this encounter
--- OUTSIDE RECORDS SUMMARY | 2024-08-20 07:52 | XMS_ITS | Encounter Summary ---
Author Organization [facility] Address [address] [place] [address] Care Team Providers Care Enterprise Cloud Architect Name Role Phone Mara Mcelroy MD Primary Care Provider Diogo Peck MD Primary Care Provider [phone] [facility], Pcp Primary Care Provider [facility] Reason for Visit * Reason Onset Date Comments Prior Authorization 09/23/2020 Advair Encounter Details Date Type Department Care Team Description 09/23/2020 Telephone Pulmonology - [place] [address] [facility] [address] [place] [phone] Rick Sanchez MD [address] [facility] [place] [address] [place] [phone] Prior Authorization (Advair ) Social History Tobacco Use Types Packs/Day Years [...] encounter Miscellaneous Notes * Telephone Encounter - Trini Ji M.A. - 09/28/2020 11:52 AM EST This medication had been changed to Advair 250-50mcg. Prior authorization is not needed for Fluticasone Salmeterol 500-50mcg. * Telephone Encounter - Eldon Keenan - 09/23/2020 11:05 AM EST Prior Authorization for Medication-do not complete and send this encounter unless you have the fax from the pharmacy. Is this a Cover My Meds request: Point Place of Medication Fluticasone salmeterol aerosol powder Dose of Medication 500-50mcg /dose What is the RX # from the faxed refill? N/a How does patient take this med? N/a What Pharmacy did the fax come from: [facility] fax #: [phone] [employer] Information from fax: What Prescription Plan does the patient have? STWA BIN/PCN if applicable: Cardholder ID: Person Code: Relationship Code: Help desk phone: documented in this encounter Plan of Treatment Not on file documented as of this encounter Visit Diagnoses Not on filedocumented in this encounter Care Teams Enterprise Cloud Architect Relationship Specialty Start Date End Date Mara Mcelroy MD PCP - General Internal Medicine 08/20/15 10/12/20 Diogo Wright MD [address] [place] [id number] PCP - General Internal Medicine 10/13/20 11/01/21 [facility], [address] [address] PCP - General Internal Medicine 11/02/21 documented as of this encounter
--- OUTSIDE RECORDS SUMMARY | 2024-08-20 07:52 | XMS_ITS | Encounter Summary ---
Author Organization [facility] Address [address] [place] [address] Care Team Providers Care Industrial Renderer Name Role Phone Mara Mcleroy MD Primary Care Provider Diogo Peck MD Primary Care Provider [phone] [facility], Pcp Primary Care Provider [facility] saige Encounter Details Date Type Department Care Team Description 12/05/2019 Orders Only Medicine/Pediatrics - [address] [address] Mara Mcelroy MD Elevated d-dimer; Pneumonia of right lower lobe due to Chlamydia species Social History Tobacco Use Types Packs/Day Years Used Date Smoking Tobacco: Every Day Cigarettes 0.8 26 Smokeless Tobacco: Never Alcohol Use Standard Drinks/Week Comments No 0 (1 standard drink = 0.6 oz pur e alcohol) Sex Assigned at Date Recorded Not on file documented as of this encounter Plan of Treatment Not on file documented as of this encounter Procedures Procedure Name Priority Date/Time Associated Diagnosis Comments CTA CHEST; W/WO CONTRAST MAT STAT 12/04/2019 Elevated d-dimer Pneumonia of right lower lobe due to Chlamydia species documented in this encounter Results * CTA CHEST; W/WO CONTRAST MAT (12/04/2019) Mara Mcelroy MD [facility] [address] [place] [address] documented in this encounter Visit Diagnoses Diagnosis Elevated d-dimer Abnormal coagulation profile Pneumonia of right lower lobe due to Chlamydia species documented in this encounter Care Teams Industrial Renderer Relationship Specialty Start Date End Date Mara Mcelroy MD PCP - General Internal Medicine 08/20/15 10/12/20 Diogo Wright MD [address] [place] [address] PCP - General Internal Medicine 10/13/20 11/01/21 [facility], Pcp [address] [place] [address] PCP - General Internal Medicine 11/02/21 documented as of this encounter
--- OUTSIDE RECORDS SUMMARY | 2024-08-20 07:52 | XMS_ITS | Encounter Summary ---
Author Organization [facility] Address [address] [place] [address] Care Team Providers Care Blending Coordinator Name Role Phone Mara Mcelroy MD Primary Care Provider Diogo Peck MD Primary Care Provider [phone] [facility], Pcp [facility] Encounter Details Date Type Department Care Team Description 06/29/2018 Orders Only Medical Records [address] [place] [address] Rick Sanchez MD [address] [place] [phone] Social History Tobacco Use Types Packs/Day Years [...] Procedure Name Priority Date/Time Associated Diagnosis Comments OUTSIDE SLEEP STUDY Routine 06/21/2018 documented in this encounter Results * OUTSIDE SLEEP STUDY (06/21/2018) Rick Sanchez MD PULMONOLOG Y documented in this encounter Visit Diagnoses Not on filedocumented in this encounter Care Teams Blending Coordinator Relationship Specialty Start Date End Date Mara Mcelroy MD PCP - General Internal Medicine 08/20/15 10/12/20 Diogo Wright MD [address] [place] [address] PCP - General Internal Medicine 10/13/20 11/01/21 [facility], Pcp [address] [place] [address] PCP - General Internal Medicine 11/02/21 documented as of this encounter
--- OUTSIDE RECORDS SUMMARY | 2024-08-20 07:52 | XMS_ITS | Encounter Summary ---
Author Organization [facility] Address [address] [place] [address] Care Team Providers Care Vamper Name Role Phone Mara Mcelroy MD Primary Care Provider Diogo Peck MD Primary Care Provider [phone] [facility], Pcp Primary Care Provider [facility] saige Encounter Details Date Type Department Care Team Description 01/27/2017 Telephone Medicine/Pediatrics - [address] [phone] Mara Mcelroy MD Social History Tobacco Use Types Packs/Day Years Used Date Smoking Tobacco: Every Day Cigarettes 0.5 26 Alcohol Use Standard Drinks/Week Comments No 0 (1 standard drink = 0.6 oz pur e alcohol) Sex Assigned at Date Recorded Not on file documented as of this encounter Plan of Treatment Not on file documented as of this encounter Visit Diagnoses Not on filedocumented in this encounter Care Teams Vamper Relationship Specialty Start Date End Date Mara Mcelroy MD PCP - General Internal Medicine 08/20/15 10/12/20 Diogo Wright MD [address] [place] [address] PCP - General Internal Medicine 10/13/20 11/01/21 [facility], Pcp [address] [place] [address] PCP - General Internal Medicine 11/02/21 documented as of this encounter
--- OUTSIDE RECORDS SUMMARY | 2024-08-20 07:52 | XMS_ITS | Encounter Summary ---
Author Organization [facility] Address [address] [place] [address] Care Team Providers Care Endoscopy Nurse Name Role Phone Mara Mcelroy MD Primary Care Provider Diogo Peck MD Primary Care Provider [phone] [facility], Pcp [facility] Encounter Details Date Type Department Care Team Description 09/18/2020 Old Medical Records Medical Records [address] [place] [address] Abstract, Provider Social History Tobacco Use Types [...] on filedocumented in this encounter Care Teams Endoscopy Nurse Relationship Specialty Start Date End Date Mara Mcelroy MD PCP - General Internal Medicine 08/20/15 10/12/20 Diogo Wright MD [address] [place] [id number] PCP - General Internal Medicine 10/13/20 11/01/21 [facility], Pcp [address] [place] [address] PCP - General Internal Medicine 11/02/21 documented as of this encounter
--- OUTSIDE RECORDS SUMMARY | 2024-08-20 07:52 | XMS_ITS | Clinical Summary ---
Author Organization [facility] Address [address] [place] [address] Care Team Providers Care Assembler Installer Structures Name Role Phone Diogo Wright MD Primary Care Provider [phone] Allergies Active Allergy Reactions Criticality Noted Date Comments Latex 05/20/2020 Medications Medication Sig Dispensed Refills Start Date End Date Status atorvastatin (LIPITOR) tablet 20 mg Take 20 mg by mouth every evening. 0 Active Albuterol Sulfate 108 (90 Base) MCG/ACT AEPB Inhale into the lungs. 0 Active lisinopril (PRINIVIL,ZESTRIL) tablet 5 mg Take 5 mg by mouth daily. 0 Active Active Problems Problem Noted Date Diagnosed Date Neutrophilia 05/21/2020 Social History Tobacco Use Types Packs/Day Years Used Date Smoking Tobacco: Never Assessed Sex and Gender Information Value Date Recorded Sex Assigned at Female 05/08/2020 5:03 PM EDT Gender Identity Not on file Sexual Orientation Not on file Last Filed Vital Signs Vital Sign Reading Time Taken Comments Blood Pressure 118/62 03/12/2021 2:49 PM EDT Pulse 116 03/12/2021 2:49 PM EDT Temperature 36.4 ??C (97.5 ??F) 03/12/2021 2:49 PM ED T Respiratory Rate - - Oxygen Saturation 97% 03/12/2021 2:49 PM EDT Inhaled Oxygen Concentration - - Weight 96.6 kg (213 lb) 03/12/2021 2:49 PM EDT Height 162.6 cm (5' 4 ) 03/12/2021 2:49 PM EDT Body Mass Index 36.56 03/12/2021 2:49 PM EDT Plan of Treatment Health Maintenance Due Date Last Done Comments Hepatitis B Vaccines (1 of 3 - 3-dose series) 1976 Hepatitis C Screening 1976 COVID-19 Vaccine (#1) 1981 Pneumococcal Vaccine (1 of 2 - PCV) 1982 Depression Screening 1988 Preventative Health Evaluation 1994 Cervical Cancer Screening (P ap Smear) 1997 Colon Cancer Screening (Colonoscopy) 2021 Influenza Vaccine (#1) 2024 DTap / Tdap / Td (2 - Td or Tdap) 12/10/2025 016 RSV Ped < 20 months Aged Out No longe r eligible based on patient's age to complete this topic Care Teams Assembler Installer Structures Relationship Specialty Start Date End Date Diogo Wrigth MD PCP - General Internal Medicine 03/12/21
--- OUTSIDE RECORDS SUMMARY | 2024-08-20 07:52 | XMS_ITS | Data Portability ---
Author Organization [place] [facility], Allergy Address [address] [place] [phone] Assessment Encounter Date Assessment Date Assessment LastModified [...] disequilibrium is coming from an otologic source. [email or web address] Not available 12/29/2023 16:52:35 Plan of Treatment Reminders Order Date Submit Date Provider Last Modified By Organization Details Last Modified Time Details Appointments None recorded. Lab None recorded. Referral neurologist referral 2023 024 2 [facility] Neurology Scheduling, [address] [place], [address], 4 10:41:05 Procedures None recorded. Surgeries None [...] Organization Details Recorded Time Abnormal auditory perception 58291323 Active 2023 Savannah chicas [place] - [facility] 16:32:03 Migraine without aura 68913617 Active 2023 JUNIE RICH PA-C [address] [place] [address],[address], [address], [facility] 4 16:52:39 Dizziness and giddiness 737338381 Active 2023 JUNIE RICH PA-C [address] [place] [address],[address], [address], [facility] 4 16:52:43 Bilateral earache 940316013 Active 2023 JUNIE RICH PA-C [address] [place] [address],[address], [address], [facility] 4 16:52:54 Bilateral temporomand ibular joint pain [id number] 9105 Active 2023 JUNIE RICH PA-C [address] [place] [address], [address] [place] [address], [phone], [facility] 4 16:53:00 Problem Notes None recorded. Procedures Surgical History Date Name Laterality Status Provider Name and Address Organization Details Recorded Time Comp Audio with Tymps (60093 & 46654) completed Savannah Goldsmith [place] - [facility] 12/29/2023 16:30:31 Cerumen removal without microscope left completed JUNIE IRCH PA-C [address] [place] [address],[place] [address], [place], [address], [facility] - [facility] 12/29/2023 14:56:07 Imaging Results Imaging Date [...] Diagnosis/Indication Diagnosis SNOMED-CT Code Diagnosis ICD10 Code Diagnosis Note [id number] JUNIE RICH PA-C [facility] [address] [address] 12/29/2023 13:49:33 12/29/2023 16:39:20 Abnormal auditory perception 40347056 H93.299 Audiologic al evaluation results: Right ear: {{Normal* Mild Moder ate Modera tely-sever e Severe P rofound}} {{hearing* sloping to a mild slopi ng to a moderate s loping to moderately severe slo ping to severe slo ping to profound f lat high frequency low frequency mid frequency cookie bite carnes curve}} {{with* se nsorineura l hearing loss with condu ctive hearing loss with mixed hearing loss with}} {{excellen t* good fa ir poor no t measurable }} word recognitio n. Left ear: {{Normal* Mild Moder ate Modera tely-sever e Severe P rofound}} {{hearing* sloping to a mild slopi ng to a moderate s loping to moderately severe slo ping to severe slo ping to profound f lat high frequency low frequency mid frequency cookie bite carnes curve}} {{with* se nsorineura l hearing loss with condu ctive hearing loss with mixed hearing loss with}} {{excellen t* good fa ir poor no t measurable }} word recognitio n. Tympanomet ry: Right Ear:{{Type A Type As Type Ad* Type C Type C, shallow & rounded Ty pe B Type B with large volume Cou ld not maintain a hermetic seal}} Left Ear:{{Type A Type As Type Ad* Type C Type C, shallow & rounded Ty pe B Type B with large volume Cou ld not maintain a hermetic seal}} Migraine without aura 56 627766 G43.009 Dizziness and giddiness 204770961 R42 Bilateral earache 364756 003 H92.03 Bilateral temporomandibular joint pain 5024694526 0122713 M26.623 Health Concerns Section Related Observation LastModified by Organization Detai ls LastModified Time None Recorded Concern Status LastModified by Organization Details LastModified Time None Recorded Advance Directives Directive None Recorded Payers Encounter Date Sequence Insurance Name Policy Number Policy Rodriguez Covered Member ID Rodriguez Member ID Guarantor Name 12/29/[address] [facility] - HEALTH NET PLAN (MEDICAID HMO) BURTON Quiñonez [id number] Mckenzie Quiñonez Notes Date Note Type Note Provider Name [...] them in several years. JUNIE RICH PA-C [address] [facility],[place] [address], [place], [address], [place] - [facility] 12/29/2023 16:53:54 OBGyn Episode No OBEpisode recorded.
--- OUTSIDE RECORDS SUMMARY | 2024-08-20 07:52 | XMS_ITS | Clinical Summary ---
Author Organization [facility] Address [address] [place] [address] 7 [place] [address] Care Team Providers Care Typewriter Repairer Name Role Phone Unavailable Primary Care Provider Unavailabl e Allergies Active Allergy Reactions Criticality Noted Date Comments Iodinated Contrast Media Anaphylaxis High 08/10/2022 January 01, 2022 Latex Hives 12/12/2013 Other reaction(s): Hives/Urticaria Medications fluticasone-keo meterol (Advair) 115-21 MCG/ACT inhaler Inhale 2 puffs in the morning and at bedtime. Rinse mouth with water after use to reduce aftertaste and incidence of candidiasis. Do not swallow. Active insulin glargine (Lantus) 100 UNIT/ML injection Inject under the skin at bedtime. Active fenofibrate (Tricor) 145 MG tablet Take 145 mg by mouth in the morning. Active Tirzepatide (Mounjaro) 10 MG/0.5ML solution pen-injector Inject under the skin. Active amoxicillin-cla vulanate (Augmentin) 500-125 MG tablet Take 1 tablet (500 mg) by mouth 3 times daily. 30 tablet 3 Active Additional Information Patient not taking.Reported on 07/25/2024 atorvastatin (Lipitor) 40 MG tablet Take 1 tablet by mouth at bedtime. 1 Active cholecalciferol (Vitamin D-3) 50 MCG (2000 UT) tablet Take 2,000 Units by mouth Once per day. 0 Active Dulaglutide (Trulicity) 0.75 MG/0.5ML solution auto-injector Inject 0.75 mg into the skin daily. 0 Active oxyCODONE (Roxicodone) 10 MG immediate release tablet TAKE 1 TABLET ORALLY EVERY 8 HOURS NEEDED FOR PAIN FOR 7 DAYS PARTIAL FILL UPON PATIENT REQUEST. Active Sodium Fluoride 1.1 % creamIndication s:Dental caries [place] teeth for 2 minutes, morning and night. Spit, do not rinse. Do not eat or drink anything for 30 minutes following use. 112 g 3 Active Active Problems Problem Noted Date Diagnosed Date Cervical mass 07/26/2024 Dyslipidemia 07/26/2024 Hx of abscess of breast 07/26/2024 Hypertension 07/26/2024 Class 2 obesity 07/26/2024 Obesity 07/26/2024 Severe obesity (BMI 35.0-39.9) with comorbidity 07/26/2024 Disease due to severe acute respiratory syndrome coronavirus 2 (SARS-CoV-2) 03/14/2024 Overview (07/26/2024): Problem added by Discern Expert Abnormal auditory perception 12/29/2023 Bilateral temporomandibular joint pain Dizziness and giddiness 12/29/2023 Migraine without aura 12/29/2023 Otalgia of both ears 12/29/2023 Hyperlipidemia 08/10/2022 Neutrophilia 05/21/2020 Hirsutism 03/27/2020 Incisional hernia 12/19/2019 Fatty liver 12/11/2019 Asthma-COPD overlap syndrome 01/23/2019 Mediastinal lymphadenopathy 01/23/2019 Pulmonary nodules 01/23/2019 Hidradenitis 12/14/2018 Obesity (BMI 30-39.9) 08/01/2018 Snoring 06/29/2018 Overview (07/26/2024): 05/2018 Home Sleep Study did not reveal sleep apnea. Type 2 diabetes mellitus 04/26/2018 Vitamin D deficiency 04/26/2018 Anxiety 12/11/2015 Umbilical hernia 09/29/2015 Overview (07/26/2024): s/p repair PTSD (post-traumatic stress disorder) 08/21/2015 Tobacco use disorder 08/21/2015 Encounters Date Type Department Care Team Description 08/02/2024 8:30 AM EST Office Visit [facility]ULT [facility] [address] [place] [address] Nirmal Odell DMD Dental caries (Primary Dx) 07/26/2024 8:00 AM EST Office Visit [facility] [address] [place] [address] Nirmal Odell DMD Periodontal disease (Primary Dx); Dental caries 07/25/2024 2:00 PM EST Office Visit [facility] [address] [place] [address] Mireya Cole Dental calculus (Primary Dx); Dental caries; Periodontal disease from Last 3 Months Social History Tobacco Use Types Packs/Day Years Used Date Smoking Tobacco: Every Day Cigarettes Passive Smoke Exposure: Never Tobacco Cessation:Ready to Q uit: Not Asked; Counseling Given: Not Answered Alcohol Use Standard Drinks/Week Comments Never 0 (1 standard drink = 0.6 oz pur e alcohol) Comments No Sex and Gender Information Value Date Recorded Sex Assigned at Female 05/23/2022 10:26 AM EDT Legal Sex Female 10:26 AM EDT Gender Identity Female 05/23/2022 10:26 AM EDT Sexual Orientation Straight 05/23/2022 10 :26 AM EDT Last Filed Vital Signs Vital Sign Reading Time Taken Comments Blood Pressure 138/86 08/02/2024 8:40 AM EST Pulse 67 11/16/2022 1:22 PM EDT Temperature - - Respiratory Rate - - Oxygen Saturation - - Inhaled Oxygen Concentration - - Weight - - Height - - Body Mass Index - - Plan of Treatment Upcoming Encounters Date Type Department Care Team (Late st Contact Info) Description 09/03/2024 10:00 AM EST Office Visit [facility]ULT [facility] [address] [place] [address] Nirmal Odell DMD [address] [place] [address] Health Maintenance Due Date Last Done Comments CT Colonography 1976 Colonoscopy 1976 Colorectal Cancer Screening 1976 Depression Screening 1976 Diabetes: Hemoglobin A1C 1976 FIT DNA/Cologuard 1976 FIT 1976 FOBT 1976 HIV Screening 1976 Lipid Panel 1976 SDOH Screening 1976 Sigmoidoscopy 1976 COVID-19 Vaccine (#1) 1981 Pneumococcal Vaccine: Pediatrics (0 to 5 Years) and At-Risk Patients (6 to 64 Years) (1 of 2 - PCV) 1982 Diabetes: Foot Exam 1986 Eye Exam 1986 Alcohol/Substance Use Screening 1988 Family Planning (PISQ) 1991 Hepatitis C Screening 1994 Diabetes: Urine Protein Screening 1995 Hepatitis A Vaccines (1 of 2 - Risk 2-dose series) 1995 Hepatitis B Vaccines (1 of 3 - 19+ 3-dose series) 1995 Zoster Vaccines (1 of 2) 1995 Pap Smear 1997 Cervical Cancer Screening 2006 HPV/Cotest 2006 Mammogram 2016 Influenza Vaccine (#1) 2024 Dental Oral Exam 01/23/2025 07/25/2024, 03/17/2023 Dental Prophylaxis 01/23/2025 07/25/2024 Dental X-Ray: Bitewings 07/26/2025 07/25/2024 Tobacco Screening 08/02/2025 08/02/2024 DTaP/Tdap/Td Vaccines (2 - T d or Tdap) 12/10/2025 12/11/2015 Dental X-Ray: Full Mouth 07/26/2027 07/25/2024 RSV Patients and Patients Aged 60 years or older (1 - 1-dose 75+ series) 2051 HIB Vaccines Aged Out No longer eligi ble based on patient's age to complete this topic HPV Vaccines Aged Out No longer eligi ble based on patient's age to complete this topic IPV Vaccines Aged Out No longer eligi ble based on patient's age to complete this topic Meningococcal Vaccine Aged Out No emiliano marco antonio eligible based on patient's age to complete this topic RSV under 20 months Aged Out No longe r eligible based on patient's age to complete this topic Rotavirus Vaccines Aged Out No longer eligible based on patient's age to complete this topic Procedures Procedure Name Priority Date/Time Associated Diagnosis Comments ADJUNCTIVE GENERAL SERVICES - PROFESSIONAL VISITS - CASE PRESENTATION, SUBSEQUENT TO DETAILED AND EXTENSIVE TREATMENT PLANNING Routine 08/02/2024 8:30 AM EST Dental caries 29 MBB(V)L RESTORATIVE - RESIN-BASED COMPOSITE RESTORATIONS [...] 8:00 AM EST Periodontal disease Dental caries 2 EXTRACTION, ERUPTED TOOTH OR EXPOSED ROOT (ELEVATION AND/OR FORCEPS REMOVAL) Routine 07/26/2024 8:00 AM EST Periodontal disease Dental caries 15 EXTRACTION, ERUPTED TOOTH OR EXPOSED ROOT (ELEVATION AND/OR FORCEPS REMOVAL) Routine 07/26/2024 8:00 AM EST Periodontal disease Dental caries COMPREHENSIVE PERIODONTAL EVALUATION - NEW OR ESTABLISHED PATIENT Routine 07/25/2024 2:00 PM EST Dental caries Periodontal disease PERIODIC ORAL EVALUATION - ESTABLISHED PATIENT Routine 07/25/2024 2:00 PM EST Dental caries Periodontal disease DIAGNOSTIC - DIAGNOSTIC IMAGING - INTRAORAL - COMPREHENSIVE SERIES OF RADIOGRAPHIC IMAGES Routine 07/25/2024 2:00 PM EST Dental caries Periodontal disease ORAL HYGIENE INSTRUCTIONS Routine 2024 2:00 PM EST Dental caries Periodontal disease ADJUNCTIVE GENERAL SERVICES - PROFESSIONAL VISITS - CASE PRESENTATION, SUBSEQUENT TO DETAILED AND EXTENSIVE TREATMENT PLANNING Routine 07/25/2024 2:00 PM EST Dental caries Periodontal disease PROPHYLAXIS - ADULT Routine 07/25/2024 2 :00 PM EST Dental caries Periodontal disease 20 MOD AMALGAM FILLING Routine 12:00 AM EST 7 EXTRACTION Routine 07/25/2024 12:00 AM EST 4 EXTRACTION Routine 07/25/2024 12:00 AM EST 16 EXTRACTION Routine 07/25/2024 12:00 AM EST 14 EXTRACTION Routine 07/25/2024 12:00 AM EST from Last 3 Months Insurance [facility] MEDICA[facility] STAND ADULT
--- OUTSIDE RECORDS SUMMARY | 2024-08-20 07:52 | XMS_ITS | Encounter Summary ---
Author Organization [facility] Address [address] [place] [address] Care Team Providers Care Accounting Clerks Supervisor Name Role Phone Mara Mcelroy MD Primary Care Provider Diogo Peck MD Primary Care Provider [phone] [facility], Pcp Primary Care Provider [facility] saige Encounter Details Date Type Department Care Team Description 05/11/2020 Plant Nursery Worker Report Medical Records [address] [place] [address] Social History Tobacco Use Types Packs/Day Years [...] have Coronavirus / COVID-19? No / Unsure 04/15/2020 3:56 PM EDT documented as of this encounter Plan of Treatment Not on file documented as of this encounter Visit Diagnoses Not on filedocumented in this encounter Care Teams Accounting Clerks Supervisor Relationship Specialty Start Date End Date Mara Mcelroy MD PCP - General Internal Medicine 08/20/15 10/12/20 Diogo Wright MD [address] [place] [address] PCP - General Internal Medicine 10/13/20 11/01/21 [facility], Pcp [address] [place] [address] PCP - General Internal Medicine 11/02/21 documented as of this encounter
--- OUTSIDE RECORDS SUMMARY | 2024-08-20 07:52 | XMS_ITS | Clinical Summary ---
Author Organization [facility] it Address [address] [place] [address] Care Team Providers Care Passenger Coach Driver Name Role Phone Diogo Wright MD Primary Care Provider [phone] Allergies Active Allergy Reactions Criticality Noted Date Comments Latex Hives 08/21/2015 Medications Medication Sig Dispensed Refills Start Date End Date Status albuterol HFA (PROAIR HFA ; PROVENTIL HFA ; VENTOLIN HFA) 90 mcg/actuation inhaler Inhale 2 Puffs into the lungs every 4 hours as needed for Cough, Wheezing or Shortness of Breath. 04/26/2018 Active atorvastatin (LIPITOR) 10 mg tablet Take 1 tablet (10 mg total) by mouth 1 (one) time each day. 03/27/2020 Active cholecalciferol (VITAMIN D-3) 50 mcg (2,000 unit) tablet Take 1 tablet (2,000 Units total) by mouth 1 (one) time each day. 07/02/2020 Active fluticasone propion-salmeteroL (AIRDUO RESPICLICK) 113-14 mcg/actuation aerosol powdr breath activated inhaler Inhale 1 Puff into the lungs 2 times daily. 12/14/2018 Active FREESTYLE LANCETS MISC 1 Device by Does not apply route 4 times daily. 12/14/2018 Active blood sugar diagnostic (FreeStyle Lite Strips) test strip USE TO TEST BLOOD SUGAR 4 TIMES A DAY 07/29/2019 Active insulin glargine (LANTUS SoloStar) 100 unit/mL (3 mL) injection pen Inject 50 Units into the skin at bedtime. 03/27/2020 Active insulin lispro (HumaLOG KwikPen) 100 unit/mL injection pen Inject 6 Units into the skin 3 times daily (before meals). 05/09/2019 Active pen needle, diabetic (PEN NEEDLE MISC) Insulin Pen Needle (PEN NEEDLES) 32G X 6 MM Misc- 1 Each by Does not apply route 4 times daily. 03/13/2020 Active lisinopriL (PRINIVIL,ZESTRIL) 2.5 mg tablet 06/17/2020 Active predniSONE (DELTASONE) 10 mg tablet Take 1 tablet (10 mg total) by mouth 1 (one) time each day. 07/08/2020 Active predniSONE 5 mg tablets,dose pack Take 5 mg by mouth daily. 1 tablets daily for 3 weeks 08/13/2020 Active dulaglutide (Trulicity) 0.75 mg/0.5 mL pen injector injection Inject 0.75 mg into the skin daily. 06/17/2020 Active Active Problems Problem Noted Date Diagnosed Date Hyperlipidemia 07/22/2024 Hirsutism 03/27/2020 Incisional hernia 12/19/2019 Fatty liver 12/11/2019 Asthma-COPD overlap syndrome 01/23/2019 Mediastinal lymphadenopathy 01/23/2019 Pulmonary nodules 01/23/2019 Hidradenitis 12/14/2018 Obesity (BMI 30-39.9) 08/01/2018 Snoring 06/29/2018 Overview (07/22/2024): 05/2018 Home Sleep Study did not reveal sleep apnea. Type 2 diabetes mellitus 04/26/2018 Vitamin D deficiency 04/26/2018 Anxiety 12/11/2015 Umbilical hernia 09/29/2015 Overview (07/22/2024): s/p repair PTSD (post-traumatic stress disorder) 08/21/2015 Tobacco use disorder 08/21/2015 Immunizations Name Administration Dates Next Due Tdap Tetanus diptheria acell ular pertussis (Boostrix; Adacel) 7yo and older 12/11/2015 Surgical History Surgery Date Site/Laterality Comments ANKLE SURGERY PROCEDURE: HISTORICAL ANKLE SURGERY HERNIA REPAIR 2015 PROCEDURE: HISTORICAL HERNIA REPAIR/UMB SECTION PROCEDURE: HISTORICAL DELIVERY; COMMENT: x3 OTHER SURGICAL HISTORY PROCEDURE: HISTORICAL D&C Medical History Medical History Date Comments PTSD (post-traumatic stress disorder) DX:PTSD (post-traumatic stress disorder) Umbilical hernia 09/29/2015 DX:Umbilical he rnia; COMMENT: s/p repair Anxiety 12/11/2015 DX:Anxiety Emphysema, unspecified ([facility]) 01/06 DX:Emphysema, unspecified ([facility]); COMMENT: per patient Obesity DX:Obesity COPD (chronic obstructive pu lmonary disease) ([facility]) DX:COPD (chronic obstructive pulmonary disease) ([facility]) Tobacco abuse DX:Tobacco abuse Type 2 diabetes mellitus ([facility]) DX:Type 2 diabetes mellitus (HCC) Vitamin D deficiency DX:Vitamin D deficiency Anxiety DX:Anxiety Hyperlipidemia DX:Hyperlipidemi a Family History Medical History Relation Name Comments Breast cancer Aunt paternal ?age Suicide Attempts Brother x 1 Throat cancer Father (+smoker), SPIN T[employer] T[employer]ER D, HTN, liver transplant Heart failure Maternal Grandfather Diabetes Maternal Grandmother amputat ions Diabetes Mother schizophrenia, bipolar, lupus No Known Problems Paternal Grandfather Thyroid disease Paternal Grandmother ?typ e Other cancer Sister x 3 Uterine or ovar lloyd?; schizophrenia Other: cerebral palsy Son Relation Name Status Comments Aunt paternal Alive Brother x 1 Father Maternal Grandfather Maternal Grandmother Alive Mother Alive Paternal Grandfather Paternal Grandmother Sister x 3 Alive Son Social History Tobacco Use Types Packs/Day Years Used Date Smoking Tobacco: Never Assessed Alcohol Use Standard Drinks/Week Comments No 0 (1 standard drink = 0.6 oz pur e alcohol) Sex and Gender Information Value Date Recorded Sex Assigned at Not on file Gender Identity Not on file Sexual Orientation Not on file Obstetrics History Plan of Treatment Health Maintenance Due Date Last Done Comments Breast Cancer Screening 1976 COVID-19 Vaccine (#1) 1981 Pneumococcal Vaccine: Pediatrics (0 to 5 Years) and At-Risk Patients (6 to 64 Years) (1 of 2 - PCV) 1982 Diabetes: Annual Foot Exam 1986 Diabetes: Annual Retina Eye Exam 1986 Hepatitis B Vaccines (1 of 3 - 19+ 3-dose series) 1995 Cervical Cancer Screening: P ap Smear 02/08/2019 02/09/2016, 02/09/2016 Diabetes: Annual GFR (Glomerular Filtration Rate) 03/27/2021 03/27/2020 Colorectal Cancer Screening: Colonoscopy 06/26/2022 Depression Screening 06/26/2022 Social Influencers of Health Screening 06/26/2022 Diabetes: Annual Urine Albumin-Creatinine Ratio (uACR) 06/30/2022 03/27/2020 Diabetes: Blood Sugar Contro l Test (HGBA1C) 06/30/2022 03/27/2020 Influenza Vaccine (#1) 2024 Cholesterol Screening (Lipid Panel) 03/27/2025 03/27/2020 DTaP,Tdap,and Td Vaccines (2 - Td or Tdap) 12/10/2025 12/11/2015 HIV Screening Completed 08/23/2018 Hepatitis C Screening Completed 08/23/2018 HIB Vaccines Aged Out No longer eligi ble based on patient's age to complete this topic HPV Vaccines Aged Out No longer eligi ble based on patient's age to complete this topic Hepatitis A Vaccines Aged Out No long er eligible based on patient's age to complete this topic IPV Vaccines Aged Out No longer eligi ble based on patient's age to complete this topic MMR Vaccines Aged Out No longer eligi ble based on patient's age to complete this topic Meningococcal ACWY Vaccine Aged Out N o longer eligible based on patient's age to complete this topic RSV Immunization Patients Under 20 months Aged Out No longer eligible b ased on patient's age to complete this topic Varicella Vaccines Aged Out No longer eligible based on patient's age to complete this topic Procedures Procedure Name Priority Date/Time Associated Diagnosis Comments URINE ALBUMIN CREATININE RATIO Routine 03/27/2020 ANNUAL BMP BLOOD TEST Routine 03/27/2020 HEMOGLOBIN A1C Routine 03/27/2020 LIPID PANEL Routine 03/27/2020 HEPATITIS C SCREENING Routine 08/23/2018 HIV SCREENING Routine 08/23/2018 HPV Routine 02/09/2016 from Last 3 Months or Most Recently Relevant to Health Maintenance Results * Urine Albumin Creatinine Ratio (03/27/2020) Urine Albumin Creatinine Ratio abstracted Historical Provider MD EUN SLAUGHTER E * Annual BMP Blood Test (03/27/2020) Annual BMP Blood Test abstracted Historical Provider MD HAQ DatalotGUILLAUMEANILA E * (ABNORMAL) Hemoglobin A1c (03/27/2020) [facility] Hemoglobin A1C 7.2(A) 6.5 % Blood Venous blood specimen / Unknown Historical Provider LAB BLOOD ORDERAB LES * (ABNORMAL) Lipid panel (03/27/2020) [facility] LDL/HDL Ratio 9(A) 0 - 4 Triglycerides 388(A) 0 - 150 mg/dL Cholesterol 285(A) 0 - 200 mg/dL HDL 31(A) 40 mg/dL LDL Cholesterol 177(A) 0 - 100 mg/dL Blood Venous blood specimen / Unknown Historical Provider LAB BLOOD ORDERAB LES * HIV Screening (08/23/2018) [facility] HIV Screening abstracted [facility] * Hepatitis C Screening (08/23/2018) [facility] Hepatitis C Screening abstracted [facility] * Cervical Cancer Screening: HPV (02/09/2016) [facility] Cervical Cancer Screening: HPV negative, abstracted Historical Provider MD [facility] from Last 3 Months or Most Recently Relevant to Health Maintenance Care Teams Passenger Coach Driver Relationship Specialty Start Date End Date Diogo Wright MD PCP - General Internal Medicine 03/12/21
--- OUTSIDE RECORDS SUMMARY | 2024-08-20 07:52 | XMS_ITS | Encounter Summary ---
Author Organization [facility] Address [address] [place] [address] Care Team Providers Care Sign Artist Name Role Phone Diogo Wright MD Primary Care Provider [phone] [facility], Pcp Primary Care Provider Unavailabl e Encounter Details Date Type Department Care Team Description 05/27/2021 Inspector Open Die Report Medical Records [address] [place] [address] Abstract, Provider Social History Tobacco Use Types [...] on filedocumented in this encounter Care Teams Sign Artist Relationship Specialty Start Date End Date Diogo Wright MD [address] [place] [address] [phone] PCP - General Internal Medicine 10/13/20 11/01/21 [facility], Pcp [address] [place] [id number] PCP - General Internal Medicine 11/02/21 documented as of this encounter
--- OUTSIDE RECORDS SUMMARY | 2024-08-20 07:52 | XMS_ITS | Encounter Summary ---
Author Organization [facility] Address [address] [place] [address] [address] [place] [address] Care Team Providers Care Truck Driver Supervisor Name Role Phone Unavailable Primary Care Provider Unavailabl e Reason for Visit * Reason Comments Routine Cleaning Dental Exam Encounter Details Date Type Department Care Team (Late st Contact Info) Description 07/25/2024 2:00 PM EST Office Visit [facility] [address] [place] [address] Mireya Cole Dental calculus (Primary Dx); Dental caries; Periodontal disease Social History Tobacco Use Types Packs/Day Years [...] Sign Reading Time Taken Comments Blood Pressure 128/84 07/25/2024 2:07 PM EST Pulse - - Temperature - - Respiratory Rate - - Oxygen Saturation - - Inhaled Oxygen Concentration - - Weight - - Height - - Body Mass Index - - documented in this encounter Progress Notes * Mireya Cole - 07/25/2024 2:00 PM EST Patient ID: Mckenzie Quiñonez is a 48 y.o. female. Time Out: Timeout Date: 07/25/24, Timeout Time: 1410 Location: [facility] Tooth: Maxilla and Mandible Procedure: Exam, X-rays, and Prophylaxis Verified the above with patient, sales assistant entertainment and media, and provider. Confirmed via patient's chart, intraorally and by radiographs. Industrial Relations Specialist: not applicable Medical Hx: Vitals: Blood pressure 128/84. Medications, Med Hx reviewed with patient and updated in chart. Treatment Provided Dental procedures in this visit D1110 - PROPHYLAXIS - ADULT (Completed) Service provider: Mireya Michelle provider: Phoebe Yo DMD [id number] - CASE PRESENTATION, DETAILED AND EXTENSIVE TREATMENT PLANNING (Completed) Service provider: Mireya Michelle provider: Phoebe Yo DMD D1330 - ORAL HYGIENE INSTRUCTIONS (Completed) Service provider: Mireya Michelle provider: Phoebe Yo DMD D0210 - INTRAORAL - COMPLETE SERIES OF RADIOGRAPHIC IMAGES (Completed) Service provider: Mireya Michelle provider: Phoebe Yo DMD Instruments Used: Ultrasonic Scalers, Hand Scalers, and Prophy angle Fluoride: N/A Oral Cancer Screening: No lesions Head/Neck Exam: No Lesions Calculus: Moderate, Localized, and Subgingival Plaque: Moderate and Localized Stain: Light and Localized Bleeding: Light and Localized Gingiva: Perio Charting Completed, Bleeding on probing, Recession- generalized, and Erythematous OH: Poor Perio Chart: Completed Oral hygiene instructions provided to patient including brushing technique and flossing. Recommendations: Atwood two times daily, modified rangel technique, Floss daily, Electric toothbrush, Soft bristle toothbrush, Atwood Tongue, Anti-sensitivity toothpaste Recall Frequency: 6 mo NV: Extractions/ Restorations Hygienist: Mireya Cole RDH * Phoebe Yo DMD - 07/25/2024 2:00 PM EST Dental procedures in this visit D1110 - PROPHYLAXIS - ADULT (Completed) Service provider: Mireya Michelle provider: Pohebe Yo DMD D9450 - CASE PRESENTATION, DETAILED AND EXTENSIVE TREATMENT PLANNING (Completed) Service provider: Mireya Michelle provider: Phoebe Yo DMD D1330 - ORAL HYGIENE INSTRUCTIONS (Completed) Service provider: Mireya Michelle provider: Phoebe Yo DMD D0210 - INTRAORAL - COMPLETE SERIES OF RADIOGRAPHIC IMAGES (Completed) Service provider: Mireya Cole Billing provider: Phoebe Yo DMD D0120 - PERIODIC ORAL EVALUATION - ESTABLISHED PATIENT (Completed) Service provider: Phoebe Yo DMD Billing provider: Phoebe Yo DMD D0180 - COMPREHENSIVE PERIODONTAL EVALUATION - NEW OR ESTABLISHED PATIENT (Completed) Service provider: Phoebe Yo DMD Billing provider: Phoebe Yo DMD Patient ID: Mckenzie Quiñonez is a 48 y.o. female. Time Out: Timeout Date: 07/25/24, Timeout Time: 1410 Location: [facility] Tooth: all Procedure: Exam Verified the above with patient, sales assistant entertainment and media, and provider. Confirmed via patient's chart, intraorally and by radiographs. Industrial Relations Specialist: not applicable Chief Complaint Patient presents with Routine Cleaning Dental Exam Medical Hx: Vitals: Blood pressure 128/84. Past Medical History: Diagnosis Date Diabetes mellitus ([facility]) Hypertension Medications: Outpatient Encounter Medications as of 07/25/2024 Medication Sig Dispense Refill atorvastatin (Lipitor) 40 MG tablet Take 1 [...] 7 DAYS PARTIAL FILL UPON PATIENT REQUEST. Tirzepatide (Mounjaro) 10 MG/0.5ML solution pen-injector Inject under the skin. amoxicillin-clavulanate (Augmentin) 500-125 MG tablet Take 1 tablet (500 mg) by mouth 3 times daily. (Patient not taking: Reported on 07/25/2024) 30 tablet 0 Sodium Fluoride 1.1 % cream Atwood teeth for 2 minutes, morning and night. Spit, do not rinse. Do not eat or drink anything for 30 minutes following use. 112 g 3 No facility-administered encounter medications on file as of 07/25/2024. Objective HPI: pt notes pain in UR and UL Pt interested in partial dentures and trying to save her remaining dentition Soft Tissue Exam No findings documented this visit Head and Neck Exam: all structures examined Details: no swellings, ulcerations or lymphadenopathies OCS: negative Dental Exam Missing #1,3-14,16-19,21,27,28,30,31 #2 and #15 mobile grade 1+, significant decay and not restorable, advise EXT and complete maxillarydenture Recommend trying to save some mandibular teeth, but reviewed their condition is not favorable and they may not be savable depending on caries extent and periodontal health Stressed homecare and healthy diet #20-MODB5 decay #22-DB5 decay #26-D decay #29-MB5 decay #32-MOB5 decay Informed pt of findings and treatment options and recommendations. Advise starting with extractionsto control pain, then caries control, periodontal treatment, then dentures. Pt understood and agreed Radiographic Interpretation: Associated radiographs for today's visit were reviewed and finding(s) were discussed with the patient. Findings include: see above Hard Tissue Exam: Decay noted - see charting and treatment plan Perio Dx: Generalized Chronic Periodontitis Stage: II Grade: B Reference tooth chart for additional findings. Oral Cancer Risk: High Risk Oral Hygiene Instructions: Atwood two times daily, modified rangel technique, Floss daily, Electric toothbrush, Soft bristle toothbrush, Atwood Tongue, Anti- sensitivity toothpaste, Prevident Caries Risk Assessment: High- two or more risk factors Assessment/Plan EXT #2,15 Caries control SRP LR and LL Maxillary complete denture and mandibular partial Maintenance and recare Patient tolerated procedure well, all questions answered and expressed understanding. Dismissed in good condition. NV: EXT #2,15 Ammonium Hydroxide Operator: Mireya Cole Dentist: Phoebe Yo DMD documented in this encounter Miscellaneous Notes * Addendum Note - Phoebe Yo DMD - 07/25/2024 2:00 PM ESTAddended by: PHOEBE YO on: 07/25/2024 04:32 PM Modules accepted: Orders documented in this encounter Plan of Treatment Upcoming Encounters Date Type Department Care Team (Late st Contact Info) Description 09/03/2024 10:00 AM EST Office Visit [facility] [address] [place] [address] Phoebe Yo DMD [address] [place] [address] Scheduled Orders Name Type Priority Associated Diagnoses Orde r Schedule Max Max COMPLETE DENTURE - MAXILLARY Dental Routine [address] arting 07/25/2024 32 MOBB(V) 32 MOBB(V) RESIN-BASED COMPOSITE - 3 SURFACES, POSTERIOR Dental Routine 1 Occurren gideon starting 07/25/2024 29,30,31,27,28,21,18,19 29,30,31,27,28,21,18,19 MANDIBULAR PARTIAL DENTURE - RESIN BASE (INCLUDING, RETENTIVE/CLASPING MATERIALS, RESTS, AND TEETH) Dental Routine [address] arting 07/25/2024 LL LL PERIODONTAL SCALING AND ROOT PLANING - 1 TO 3 TEETH PER QUADRANT Dental Routine [address] arting 07/25/2024 LR LR PERIODONTAL SCALING AND ROOT PLANING - 1 TO 3 TEETH PER QUADRANT Dental Routine [address] arting 07/25/2024 20 MODB(V) 20 MODB(V) RESIN-BASED COMPOSITE - 4 OR MORE SURFACES, POSTERIOR Dental Routine [address] arting 08/02/2024 22 DF(V) 22 DF(V) RESIN-BASED COMPOSITE - 2 SURFACES, ANTERIOR Dental Routine 1 Occurrenc es starting 08/02/2024 documented as of this encounter Procedures Procedure Name Priority Date/Time Associated Diagnosis Comments PROPHYLAXIS - ADULT Routine 07/25/2024 2 :00 PM EST Dental caries Periodontal disease PERIODIC ORAL EVALUATION - ESTABLISHED PATIENT Routine 07/25/2024 2:00 PM EST Dental caries Periodontal disease ORAL HYGIENE INSTRUCTIONS Routine 2024 2:00 PM EST Dental caries Periodontal disease DIAGNOSTIC - DIAGNOSTIC IMAGING - INTRAORAL - COMPREHENSIVE SERIES OF RADIOGRAPHIC IMAGES Routine 07/25/2024 2:00 PM EST Dental caries Periodontal disease COMPREHENSIVE PERIODONTAL EVALUATION - NEW OR ESTABLISHED PATIENT Routine 07/25/2024 2:00 PM EST Dental caries Periodontal disease ADJUNCTIVE GENERAL SERVICES - PROFESSIONAL VISITS - CASE PRESENTATION, SUBSEQUENT TO DETAILED AND EXTENSIVE TREATMENT PLANNING Routine 07/25/2024 2:00 PM EST Dental caries Periodontal disease 20 MOD AMALGAM FILLING Routine 12:00 AM EST 7 EXTRACTION Routine 07/25/2024 12:00 AM EST 4 EXTRACTION Routine 07/25/2024 12:00 AM EST 16 EXTRACTION Routine 07/25/2024 12:00 AM EST 14 EXTRACTION Routine 07/25/2024 12:00 AM EST documented in this encounter Visit Diagnoses Diagnosis Dental calculus- Primary Accretions on teeth Dental caries Unspecified dental caries Periodontal disease Unspecified gingival and periodontal disease documented in this encounter
--- OUTSIDE RECORDS SUMMARY | 2024-08-20 07:52 | XMS_ITS | Encounter Summary ---
Author Organization [facility] Address [address] [place] [address] Care Team Providers Care Manager Professional Development Name Role Phone Mara Mcelroy MD Primary Care Provider Diogo Peck MD Primary Care Provider [phone] [facility], Pcp Primary Care Provider [facility] saige Encounter Details Date Type Department Care Team Description 01/15/2020 Clinical Unit Educator Report Medical Records [address] [place] [id number] Aundrea Frost MD Social History Tobacco Use Types Packs/Day [...] filedocumented in this encounter Care Teams Manager Professional Development Relationship Specialty Start Date End Date Mara Mcelroy MD PCP - General Internal Medicine 08/20/15 10/12/20 Diogo Wright MD [address] [place] [address] [phone] PCP - General Internal Medicine 10/13/20 11/01/21 [facility], Pcp [address] [place] [phone] PCP - General Internal Medicine 11/02/21 documented as of this encounter
--- OUTSIDE RECORDS SUMMARY | 2024-08-20 07:53 | XMS_ITS | Encounter Summary ---
Author Organization [facility] Address [address] [place] [address] Care Team Providers Care Straw Hat Plunger Operator Name Role Phone Mara Mcelroy MD Primary Care Provider Diogo Peck MD Primary Care Provider [phone] [facility], Pcp [facility] Encounter Details Date Type Department Care Team Description 04/05/2019 Old Medical Records Medical Records [address] [place] [id number] Abstract, Provider Social History Tobacco Use Types [...] on filedocumented in this encounter Care Teams Straw Hat Plunger Operator Relationship Specialty Start Date End Date Mara Mcelroy MD PCP - General Internal Medicine 08/20/15 10/12/20 Diogo Wright MD [address] [place] [phone] PCP - General Internal Medicine 10/13/20 11/01/21 [facility], Pcp [address] [place] [phone] PCP - General Internal Medicine 11/02/21 documented as of this encounter
--- OUTSIDE RECORDS SUMMARY | 2024-08-20 07:53 | XMS_ITS | Encounter Summary ---
Author Organization [facility] Address [address] [place] [address] Care Team Providers Care Artist Representative Name Role Phone Diogo Wright MD Primary Care Provider [phone] [facility], Pcp Primary Care Provider [facility] Encounter Details Date Type Department Care Team Description 04/14/2021 Hospital Medical Records [address] [place] [address] Darien Becker Social History Tobacco Use Types Packs/Day Years [...] on filedocumented in this encounter Care Teams Artist Representative Relationship Specialty Start Date End Date Diogo Wright MD [address] [place] [address] [phone] PCP - General Internal Medicine 10/13/20 11/01/21 [facility], Pcp [address] [place] [phone] PCP - General Internal Medicine 11/02/21 documented as of this encounter
--- OUTSIDE RECORDS SUMMARY | 2024-08-20 07:53 | XMS_ITS | Encounter Summary ---
Author Organization [facility] Address [address] [place] [address] Care Team Providers Care Grants Administrator Name Role Phone Diogo Wright MD Primary Care Provider [phone] [facility], Pcp Primary Care Provider [facility] Encounter Details Date Type Department Care Team Description 05/04/2021 Hospital Medical Records [address] [place] [phone] [facility] Social History Tobacco Use Types Packs/Day [...] on filedocumented in this encounter Care Teams Grants Administrator Relationship Specialty Start Date End Date Diogo Wright MD [address] [place] [address] [phone] PCP - General Internal Medicine 10/13/20 11/01/21 [facility], Pcp [address] [place] [phone] PCP - General Internal Medicine 11/02/21 documented as of this encounter
--- OUTSIDE RECORDS SUMMARY | 2024-08-20 07:53 | XMS_ITS | Encounter Summary ---
Author Organization [facility] Address [address] [place] [address] Care Team Providers Care Pitch Filler Name Role Phone Diogo Wright MD Primary Care Provider [phone] Count Includes [facility], Pcp Primary Care Provider Unavailabl e Reason for Visit * Reason Onset Date Comments VNA Call 07/19/2021 Encounter Details Date Type Department Care Team Description 07/19/[address] [facility] [address] [place] [address] [id number] Diogo Wright MD [address] [place] [address] [phone] VNA Call Social History Tobacco Use Types Packs/Day Years [...] encounter Miscellaneous Notes * Telephone Encounter - Diogo Wright MD - 07/19/2021 1:03 PM EST Noted * Telephone Encounter - Wero David L.P.NTeodoro - 07/19/2021 12:54 PM EST See FYI below from VNA * Telephone Encounter - Benjamín Ham - 07/19/2021 11:31 AM EST VNA CALL Which VNA office is calling? [facility] Full name of caller: Meme The caller is A nurse Is the caller at the patients home?: NO Reason for call: Meme is calling as an FYI to let us know that the patient was admitted into [facility] on 07/16/21 and was discharged on 07/17/21 for abdominal pain. Meme says that the patient has GI surgery scheduled for 07/28/[address] Elizabeth Olmstead. Does caller need an urgent call back? NO Was CONTACT Telephone # obtained above?: YES Fax #: documented in this encounter Plan of Treatment Not on file documented as of this encounter Visit Diagnoses Not on filedocumented in this encounter Care Teams Pitch Filler Relationship Specialty Start Date End Date Diogo Wright MD [address] [place] [id number] PCP - General Internal Medicine 10/13/20 11/01/21 [place] [address] PCP - General Internal Medicine 11/02/21 documented as of this encounter
--- NOTE | 2024-08-20 08:12 | A.OFFPC_ITS ---
Vital Signs 08/20/24 08:14 Height 5 ft 5 in Weight 214 lb 4 oz BMI 35.6 BP 130/70 Blood Pressure Location Lt brachial Position Sitting Pulse 97 Pulse Source Pulse Oximeter Temp 96.9 F Temp Source Skin Pulse Oximetry (%) 96 Oxygen Delivery Method Room Air Intake Visit Reasons: vertigo Intake Note: Patient is here to follow-up after a visit the emergency department at [facility] on 08/11/24. Patient is here to follow up on vertigo. Ticket Puller Required: No Associate Doctor: Not Required per policy Accompanied by: Self / Same As Patient Allergies latex [LATEX] Allergy (Mild, Verified 08/20/24 08:24) RASH Iodinated Contrast Media [IV Contrast Dye] Allergy (Verified 08/20/24 08:24) Anaphylaxis amoxicillin Adverse Reaction (Unknown, Verified 08/20/24 08:24) vaginal infection dulaglutide [From Trulicity] Adverse Reaction (Unknown, Verified 08/20/24 08:24) vomitting, nausea semaglutide [From Ozempic] Adverse Reaction (Unknown, Verified 08/20/24 08:24) Chest pain, vomitting Medication List - Last Reconciled 08/20/24 by NICOLE Cm abdominal binder As directed albuterol sulfate 2.5 mg (3 mL) inhalation Q6H PRN 30 days albuterol sulfate 90 mcg/actuation 1 inh inhalation QID PRN 30 days albuterol sulfate 90 mcg/actuation (Ventolin HFA) 2 puffs inhalation Q4-6H PRN benzonatate 200 mg PO TID PRN blood sugar diagnostic (FreeStyle Test strips) testing 3x daily blood-glucose meter (FreeStyle Lite Meter kit) As directed cholecalciferol (vitamin D3) 25 mcg PO DAILY 90 days epinephrine (EpiPen 2-Josué) 0.3 mg (0.3 mL) IM ONCE PRN flash glucose scanning reader (FreeStyle Tiff 2 Leota) 1 ea miscellaneous DIRECTED flash glucose sensor (FreeStyle Tiff 2 Sensor kit) DIRECTED EVERY 2 WEEKS fluticasone propion-salmeterol 250-50 mcg/dose (Advair Diskus) 1 ea inhalation BID 30 days FreeStyle Precision Haresh Strips (blood sugar diagnostic) As needed up to four times daily NS glucose 4 grams PO Q15M PRN insulin glargine (Lantus Solostar U-100 Insulin) 20 units (0.2 mL) subcut B EDTIME insulin lispro 20 - 30 units subcut TID meclizine 25 mg PO DAILY nitroglycerin 0.4 mg sublingual Q5M PRN 15 days ondansetron HCl 8 mg PO Q12H 15 days oxycodone 10 mg PO Q8H PRN 7 days Ozempic (semaglutide) 2 mg (0.75 mL) subcut QWEEK NS pen needle, diabetic (BD Ultra-Fine Macy Pen Needle) USE DIRECTED 4 TIMES DAILY pioglitazone 30 mg PO DAILY simvastatin 20 mg PO DAILY 30 days Tobacco use date assessed: 08/20/24 Dental Screening Dental Screen Date: 08/20/24 Did you have a dental visit in the last 12 months?: Yes Did you have a dental problem in the last 6 months where you did not have access to dental care?: No Was dental information given to patient?: Patient has dentist HPI vertigo HPI Details The patient is a 48-year-old female with significant past medical history of obesity, type 2 diabetes, tobacco dependency, general anxiety disorder, chronic incisional abdominal hernia The patient of BRUNLIDA Hernandez. She is presenting for post hospital follow up for dizziness nausea and unrelenting vomiting The patient went to [facility] the emergency room on 08/10/2024 Reports she started feeling a tight pressure in the middle of her forehead, proceeded to dizziness, nausea and vomiting that was not stopping. Reports that they did a CT and MRI to rule out stroke that was negative Reports that the only thing that worked for her symptoms was meclizine and she was also given Zofran 4 nausea The patient was recommended to go to PT for vestibular therapy Patient also reported that all this started after started taking pioglitazone 30 mg Reports that she took the medication when her ozempic was not due and she was fine However, on this day her ozempic was due as well and the noticed that she felt different She has not taken her pioglitazone since the 08/10/24 and is hesitant-reports that she does not like medication Discussed with the patient this was unlikely the cause of her symptoms. The patient continues to be hesitant Decreased dose, with plans increase back to 30 mg and the patient was ok with that plan she is not taking her simvastatin 20 mg-discussed with the patient the risk of stroke or heart attack with her bs/cholesterol being so high. Resend simvastatin 20 mg-the patient reports that she will start taking the medication The patient also complained ripping abdominal pain from her abdominal hernia triggered from vomiting multiple times Reports that she thinks she put a lot of stress on her hernia. She has been waiting for hernia to be repaired She is requesting to have her oxycodone refilled to give her some relief Reports the surgeon will not touch her until her blood sugars under control Will refill oxycodone for 7 days supply Will refer the patient to PT for vestibular therapy Patient reports that she is still smoking-discussed smoking cessation, patient reports that she has been cutting down but is not ready to stop. Discussed with patient that smoking also put her at risk for developing blood clots and this will be a factor in the surgeon's decision to due surgery or not [facility] Medical History Itching Obesity (BMI 30-39.9) Sepsis Diverticulitis of both large and small intestine with perforation and abscess Diverticulitis of large intestine with abscess Morbid obesity with BMI of 50.0-59.9, adult Hypertension Vitamin D deficiency B12 deficiency Diabetic nephropathy associated with type 2 diabetes mellitus Dyslipidemia Hirsutism Diabetes type 2, uncontrolled Surgical History Hx of abdominal surgery Hx of umbilical hernia repair History of ankle surgery Hx of section Family History Father Throat cancer Cirrhosis Mother Diabetes Social History Household Members: None Housing: House Do you presently have visiting nurse or other home services: Yes Alcohol intake: former Patient Tobacco Use Status: Current everyday Tobacco user Tobacco use type: Cigarette Cigarette Packs Per Day: 0.5 Cigarettes Per Day: 5 Years Smoked: 30 e-Cigarette/Vaping Use: Never Used Second Hand Smoke Exposure: Yes Substance Use Type: Marijuana Advance Directives Date on File: 05/05/21 service: No Current occupational status: disabled Cognitive needs: No Hearing needs: No Vision needs: Yes Questionnaire PHQ-9 Over the last 2 weeks, how often have you been bothered by any of the following problems? 1. Little interest or pleasure in doing things: not at all 2. Feeling down, depressed, or hopeless: not at all 3. Trouble falling or staying asleep, or sleeping too much: not at all 4. Feeling tired or having little energy: not at all 5. Poor appetite or overeating: not at all 6. Feeling bad about yourself - or that you are a failure or have let yourself or your family down: not at all 7. Trouble concentrating on things, such as reading the newspaper or watching television: not at all 8. Moving or speaking so slowly that other people could have noticed. Or the opposite - being so fidgety or restless that you have been moving around a lot more than usual: not at all 9. Thoughts that you would be better off or of hurting yourself in some way: not at all Total score: 0 Depression Screening Interpretation: Negative Depression Screening Done: Yes 19487 - PHQ-9 Billing: Yes Source: Developed by Drs. Kahlil Thao, Patito Pradhan, Shine Carias and colleagues, with an educational kathleen from [employer]. Thrive Questionnaire Date Thrive assessed: 08/20/24 I am a: Patient What is your living situation today?: I have a steady place to live Within the past 12 months, did the food you bought not last and you didn't have the money to get more?: Never true Within the past 12 months, did you worry whether your food would run out before you got money to buy more?: Never true Do you have trouble paying for medicines?: No Do you have trouble getting transportation to medical appointments?: No Do you have trouble paying your heating and electricity bill?: No Do you have trouble taking care of your child, family member or friend?: No Do you have trouble with day-to-day activities such as bathing, preparing meals, shopping, managing finances, etc.?: No Are you currently unemployed and looking for a job?: No Are you interested in more education?: No Please select the resources that you would like help with: None Currently or been in a relationship where the following occur: No concerns reported THRIVE Score: 0 AUDIT C Alcohol Use Questionnaire (AUDIT-C) 1. How often do you have a drink containing alcohol?: Never Total Score: 0 RUI-7 AMB Questionnaire RUI-7 Date URI - 7 assessed: 08/20/24 Feeling nervous, anxious, or on edge: 0 = Not at all Not being able to stop or control worryin = Not at all Worrying too much about different things: 0 = Not at all Trouble relaxin = Not at all Being so restless that it is hard to sit still: 0 = Not at all Becoming easily annoyed or irritable: 0 = Not at all Feeling afraid as if something awful might happen: 0 = Not at all Total RUI-7 score (0-4 normal; 5-9 mild; 10-14 moderate; 15-21 severe): 0 Source: Developed by Drs. Kahlil Thao, Patito Pradhan, Shien Carias and colleagues, with an educational kathleen from [employer]. RUI-7 Assessment Billing RUI-7 Assessment Tool: RUI-7 Assessment 52823 Review of Systems Const Details: Denies chills, Denies fatigue, Denies fever(s), Denies headache(s) and Denies weakness HEENT Denies change in vision, Denies dizziness, Denies headache(s), Denies hearing loss, Denies nasal congestion, Denies sinus pain, Denies sinus pressure and Denies sore throat Card Denies chest pain, Denies lightheadedness, Denies dyspnea and Denies other (palpitations) Resp Recurrent cough, Denies dyspnea and Denies wheezing GI Recurrent abdominal pain, Denies melena, Denies hematochezia, Denies change in bowel habits, intermittent dyspepsia (food choice related) and Denies nausea Denies hematuria and Denies dysuria Musc Denies abnormal gait, Denies myalgias, Denies arthralgias, Denies numbness and Denies tingling Skin/Breast Denies rash, Denies unusual bruising and Denies wounds Neuro Denies abnormal gait, Denies dizziness, Denies headache(s), Denies memory loss, Denies numbness, Denies Sensory deficit (Neuro), Denies tingling and Denies weakness Psych Denies anxiety, Denies depression and Denies memory loss Endo Denies cold intolerance, Denies fatigue, Denies heat intolerance, Denies polydipsia and Denies polyuria Abhijit/Lymph Denies easy bleeding and Denies easy bruising Aller/Immun Denies wheezing Physical exam (Primary Care) Vital Signs: Last Vital Signs Temp 96.9 F 08/20/24 08:14 Pulse 97 08/20/24 08:14 BP 130/70 08/20/24 08:14 Pulse Ox 96 08/20/24 08:14 Oxygen Delivery Method Room Air 08/20/24 08:14 BMI result Body Mass Index 35.6 Tobacco/Smoking Status: Tobacco use Status Tobacco use date assessed 08/20/24 08/20/24 08:20 Patient Tobacco Use Status Current everyday Tobacco 08/20/24 08:20 Tobacco use type Cigarette 08/20/24 08:20 e-Cigarette/Vaping Use Never Used 08/20/24 08:20 PHQ-9: PHQ-9 Score PHQ-9: Total score 0 08/20/24 16:23 Depression Screening Interpretation: Negative Thrive Assessment: Date of Thrive Assessment Date Thrive assessed 08/20/24 08/20/24 08:20 Currently or been in a relationship where the following occur: No concerns reported Const Other: General: no acute distress, well developed, alert and awake Nutritional Appearance: well nourished Orientation/consciousness: patient oriented x3 HENMT Head: Yes normocephalic and Yes atraumatic Ears: hearing grossly normal bilaterally and TM's normal bilaterally General nose exam: Normal external nose present and Normal nares present Mouth: Normal oral and palatal mucosa present and moist mucous membranes Eyes Pupils: Equal, round and reactive pupils present and Pupil accommodation reflex normal EOM: EOMs intact bilaterally Neck Neck: Yes normal visual inspection, Yes no lymphadenopathy and Yes trachea midline Thyroid: Thyroid normal Carotids: no bruits Lymphatic: no lymphadenopathy noted Chest Chest palpation & inspection: normal inspection of the chest Resp Effort & Inspection: normal respiratory effort Auscultation: clear to auscultation bilaterally Cardio Rate: regular rate Rhythm: regular rhythm Heart sounds: S1 normal heart sound present, S2 normal heart sound present, no gallops, no murmurs and no rubs Bruits: no abdominal aortic bruits and no carotid bruits GI other: abdomen is large, protuberant, large hanging hernia present, tender to palpation, no bruit heard Auscultation: normal bowel sounds General: Yes no CVA tenderness Back/Spine/Pelvis Back: no CVA tenderness Cervical Spine: cervical ROM normal and No Cervical spine tenderness Thoracic/Lumbar Spine: thoraco-lumbar ROM normal, No pain with thoraco-lumbar ROM, No thoracic spinal tenderness and No lumbar spinal tenderness Skin General: warm and dry. Normal skin color. Normal skin turgor Lesions: no lesions Nails: normal Neuro General: patient oriented x3, gait normal Cranial nerves: Yes Equal, round and reactive pupils present Cognition (Neuro): normal cognition Gait exam (Neuro): Normal gait present Extrem General: Yes normal to inspection, No edema and No calf tenderness Psych Appearance: grossly normal Affect: normal affect Attitude: cooperative Thought process: Normal thought process present Coding Level of Care Code Est Pt Level 4 (57734) Diagnoses Dyslipidemia E78.5 Vitamin D deficiency E55.9 Morbid obesity with BMI of 50.0-59.9, adult E66.01; Z68.43 Insulin dependent type 2 diabetes mellitus E11.9; Z79.4 Gastroesophageal reflux disease without esophagitis K21.9 Esophagitis presence: without esophagitis Benign paroxysmal positional vertigo due to bilateral vestibular disorder H81.13 Laterality: bilateral Additional Codes RUI-7 Assessment Billing - RUI-7 Assessment Tool: RUI-7 Assessment 17157 ([id number]) PHQ-9 - 76597 - PHQ-9 Billing: Yes ([id number]) Assessment & Plan Assessment & Plan (1) Dyslipidemia: Code(s): E78.5 - Hyperlipidemia, unspecified Category: Medical Plan: Discussed lifestyle modification with patient. Reports that she denies started taking simvastatin 20 mg daily Discussed with the patient about the risk of having a stroke or heart attack Simvastatin 20 mg his resent to the pharmacy. The patient is not sure if she picked up the medication or not prior Patient verbalized that she will started taking the medication (2) Vitamin D deficiency: Code(s): E55.9 - Vitamin D deficiency, unspecified Category: Medical Plan: Vitamin D supplements was encouraged Patient reports that she will take this medication OTC and does not want it ordered (3) Morbid obesity with BMI of 50.0-59.9, adult: Code(s): E66.01 - Morbid (severe) obesity due to excess calories; Z68.43 - Body mass index [BMI] 50.0-59.9, adult Category: Medical Plan: Diet/exercise discussed in detail Encouraged to exercise for at least 30 minutes a day/5 days a week Healthy eating discussed. Encouraged to eat fruits/vegetables, protein- fish/baked chicken, and to avoid salty/fried foods, sweets, caffeine and carbohydrates. Encouraged to increase water intake 6-8 glasses a day (4) Insulin dependent type 2 diabetes mellitus: Code(s): E11.9 - Type 2 diabetes mellitus without complications; Z79.4 - penitentiary (current) use of insulin Category: Medical Plan: Patient reported stop taking pioglitazone 30 mg because she felt like this medication was interacting with her Ozempic and causing her to be dizzy Discussed with the patient at this was less likely the reason based on her presentation to the ED. Restarted pioglitazone at 15 mg daily. Discussed with patient that this medication will most likely need to be titrated back up to 30 mg because her blood sugar has not been well-controlled. Continue Lantus 20 units subcu at bedtime. Continue lispro 20-30 units subQ t.i.d. Follow up with Endocrine as scheduled (5) GERD (gastroesophageal reflux disease): Code(s): K21.9 - Gastro-esophageal reflux disease without esophagitis Category: Medical Qualifiers: Esophagitis presence: without esophagitis Qualified Code(s): K21.9 - Gastro-esophageal reflux disease without esophagitis Plan: Reinforced dietary restriction Discussed with patient about not eating close to bedtime (6) BPPV (benign paroxysmal positional vertigo): Code(s): H81.10 - Benign paroxysmal vertigo, unspecified ear Category: Medical Qualifiers: Laterality: bilateral Qualified Code(s): H81.13 - Benign paroxysmal vertigo, bilateral Plan: PT eval ordered for vestibular therapy Continue meclizine 25 mg p.o. PRN for dizziness Plan Labs ordered for the patient annual physical next month Orders: Orders Complete Blood Count Auto Diff Today E11.9 - Type 2 diabetes mellitus without complications, E55.9 - Vitamin D deficiency, unspecified, E66.01 - Morbid (severe) obesity due to excess calories, E78.5 - Hyperlipidemia, unspecified, F41.1 - Generalized anxiety disorder, H81.13 - Benign paroxysmal vertigo, bilateral, K21.9 - Gastro-esophageal reflux disease without esophagitis, R00.2 - Palpitations, R53.83 - Other fatigue, Z68.43 - Body mass index [BMI] 50.0-59.9, adult, Z79.4 - penitentiary (current) use of insulin Comprehensive [place]. Panel Fast Today E11.9 - Type 2 diabetes mellitus without complications, E55.9 - Vitamin D deficiency, unspecified, E66.01 - Morbid (severe) obesity due to excess calories, E78.5 - Hyperlipidemia, unspecified, F41.1 - Generalized anxiety disorder, H81.13 - Benign paroxysmal vertigo, bilateral, K21.9 - Gastro-esophageal reflux disease without esophagitis, R00.2 - Palpitations, R53.83 - Other fatigue, Z68.43 - Body mass index [BMI] 50.0-59.9, adult, Z79.4 - penitentiary (current) use of insulin UA CC w/rflx Micro + Cult Today E11.9 - Type 2 diabetes mellitus without complications, E55.9 - Vitamin D deficiency, unspecified, E66.01 - Morbid (severe) obesity due to excess calories, E78.5 - Hyperlipidemia, unspecified, F41.1 - Generalized anxiety disorder, H81.13 - Benign paroxysmal vertigo, bilateral, K21.9 - Gastro-esophageal reflux disease without esophagitis, R00.2 - Palpitations, R53.83 - Other fatigue, Z68.43 - Body mass index [BMI] 50.0-59.9, adult, Z79.4 - penitentiary (current) use of insulin TSH reflex Free T4 Today E11.9 - Type 2 diabetes mellitus without complications, E55.9 - Vitamin D deficiency, unspecified, E66.01 - Morbid (severe) obesity due to excess calories, E78.5 - Hyperlipidemia, unspecified, F41.1 - Generalized anxiety disorder, H81.13 - Benign paroxysmal vertigo, bilateral, K21.9 - Gastro-esophageal reflux disease without esophagitis, R00.2 - Palpitations, R53.83 - Other fatigue, Z68.43 - Body mass index [BMI] 50.0-59.9, adult, Z79.4 - penitentiary (current) use of insulin Vitamin D 25-OH Total Today E11.9 - Type 2 diabetes mellitus without complications, E55.9 - Vitamin D deficiency, unspecified, E66.01 - Morbid (severe) obesity due to excess calories, E78.5 - Hyperlipidemia, unspecified, F41.1 - Generalized anxiety disorder, H81.13 - Benign paroxysmal vertigo, bilateral, K21.9 - Gastro-esophageal reflux disease without esophagitis, R00.2 - Palpitations, R53.83 - Other fatigue, Z68.43 - Body mass index [BMI] 50.0-59.9, adult, Z79.4 - intermediate project manager (current) use of insulin Hemoglobin A1c Today E11.9 - Type 2 diabetes mellitus without complications, E55.9 - Vitamin D deficiency, unspecified, E66.01 - Morbid (severe) obesity due to excess calories, E78.5 - Hyperlipidemia, unspecified, F41.1 - Generalized anxiety disorder, H81.13 - Benign paroxysmal vertigo, bilateral, K21.9 - Gastro- esophageal reflux disease without esophagitis, R00.2 - Palpitations, R53.83 - Other fatigue, Z68.43 - Body mass index [BMI] 50.0-59.9, adult, Z79.4 - intermediate project manager (current) use of insulin Microalbumin, Random (w Creat) Today E11.9 - Type 2 diabetes mellitus without complications, E55.9 - Vitamin D deficiency, unspecified, E66.01 - Morbid (severe) obesity due to excess calories, E78.5 - Hyperlipidemia, unspecified, F41.1 - Generalized anxiety disorder, H81.13 - Benign paroxysmal vertigo, bilateral, K21.9 - Gastro-esophageal reflux disease without esophagitis, R00.2 - Palpitations, R53.83 - Other fatigue, Z68.43 - Body mass index [BMI] 50.0-59.9, adult, Z79.4 - penitentiary (current) use of insulin Lipid Panel Today E11.9 - Type 2 diabetes mellitus without complications, E55.9 - Vitamin D deficiency, unspecified, E66.01 - Morbid (severe) obesity due to excess calories, E78.5 - Hyperlipidemia, unspecified, F41.1 - Generalized anxiety disorder, H81.13 - Benign paroxysmal vertigo, bilateral, K21.9 - Gastro- esophageal reflux disease without esophagitis, R00.2 - Palpitations, R53.83 - Other fatigue, Z68.43 - Body mass index [BMI] 50.0-59.9, adult, Z79.4 - penitentiary (current) use of insulin Vitamin B12 and Folate Today E11.9 - Type 2 diabetes mellitus without complications, E55.9 - Vitamin D deficiency, unspecified, E66.01 - Morbid (severe) obesity due to excess calories, E78.5 - Hyperlipidemia, unspecified, F41.1 - Generalized anxiety disorder, H81.13 - Benign paroxysmal vertigo, bilateral, K21.9 - Gastro-esophageal reflux disease without esophagitis, R00.2 - Palpitations, R53.83 - Other fatigue, Z68.43 - Body mass index [BMI] 50.0-59.9, adult, Z79.4 - penitentiary (current) use of insulin PT Evaluation and Treatment Today H81.13 - Benign paroxysmal vertigo, bilateral Medications: Changed From pioglitazone 30 mg PO DAILY 90 tabs 3RF To pioglitazone 15 mg (1/2 x 30 mg) PO DAILY 90 tabs 3RF Refilled simvastatin 20 mg PO DAILY 30 days 30 tabs 3RF E11.21 - Type 2 diabetes mellitus with diabetic nephropathy, E78.5 - Hyperlipidemia, unspecified oxycodone Partial Fill upon patient request. 10 mg PO Q8H 7 days PRN 21 tabs 0RF pain K43.2 - Incisional hernia without obstruction or gangrene
[2024-08-20 08:14] VITALS: BP 130/70; PULSE 97; TEMP 36.1; O2SAT 96; BMI 35.6
== END 2024-08-20 09:12 | disposition home or self-care (01) ==
PROVIDERS: PCP Physician Assistant
DX: E78.5 Hyperlipidemia, unspecified (principal); E66.01 Morbid (severe) obesity due to excess calories; Z68.43 Body mass index [BMI] 50.0-59.9, adult; E11.9 Type 2 diabetes mellitus without complications; Z79.4 Long term (current) use of insulin; E55.9 Vitamin D deficiency, unspecified; K21.9 Gastro-esophageal reflux disease without esophagitis; H81.13 Benign paroxysmal vertigo, bilateral

== ENCOUNTER → 2024-08-20 07:49 | Outpatient (BNVA) | payer OTHER, SELFPAY | PROVIDERS: PCP Physician Assistant | DX: E78.5 Hyperlipidemia, unspecified (principal); E55.9 Vitamin D deficiency, unspecified; E66.01 Morbid (severe) obesity due to excess calories; Z68.43 Body mass index [BMI] 50.0-59.9, adult; E11.9 Type 2 diabetes mellitus without complications; K21.9 Gastro-esophageal reflux disease without esophagitis; H81.13 Benign paroxysmal vertigo, bilateral; Z79.4 Long term (current) use of insulin | CPT/HCPCS: 96127; 99212 ==

== ENCOUNTER 2024-09-02 02:30 | Outpatient (REF) | payer OTHER, SELFPAY ==
--- OUTSIDE RECORDS SUMMARY | 2024-09-02 16:28 | XMS_ITS | Encounter Summary ---
Author Organization [facility] Address [address] [place] [address] Care Team Providers Care Emergency Nurse Name Role Phone Mara Mcelroy MD Primary Care Provider Diogo Peck MD Primary Care Provider [phone] [facility], Pcp Primary Care Provider [facility] saige Encounter Details Date Type Department Care Team Description 01/15/2020 [employer] Report Medical Records [address] [place] [address] Aundrea Frost MD Social History Tobacco Use [...] on filedocumented in this encounter Care Teams Emergency Nurse Relationship Specialty Start Date End Date Mara Mcelroy MD PCP - General Internal Medicine 08/20/15 10/12/20 Diogo Wright MD [address] [place] [address] [id number] PCP - General Internal Medicine 10/13/20 11/01/21 [facility], Pcp [address] [place] [address] PCP - General Internal Medicine 11/02/21 documented as of this encounter
--- OUTSIDE RECORDS SUMMARY | 2024-09-02 16:28 | XMS_ITS | Encounter Summary ---
Author Organization [facility] Address [address] [place] [address] Care Team Providers Care Smoking Tobacco Cutter Operator Name Role Phone Mara Mcelroy MD Primary Care Provider Diogo Peck MD Primary Care Provider [phone] [facility], Pcp Primary Care [facility] Reason for Visit * Reason Onset Date Comments Pain, General 01/14/2020 Encounter Details Date Type Department Care Team Description 01/14/2020 Telephone Medicine/Pediatrics - [address] [phone] Mara Mcelroy MD Pain, General Social History Tobacco Use Types Packs/Day Years Used Date Smoking Tobacco: Every Day Cigarettes 0.8 26 Smokeless Tobacco: Never Alcohol Use Standard Drinks/Week Comments No 0 (1 standard drink = 0.6 oz pur e alcohol) Sex Assigned at Date Recorded Not on file documented as of this encounter Miscellaneous Notes * Telephone Encounter - Irene Frost R.N. - 01/14/2020 1:43 PM EDT Spoke with patient, states her pain is continuous. Fell over one month ago and has had 3 appointments with [facility]. States she was referred to Neurology and states she was told by neurology that she would only be evaluated but not treated at her first visit. Her original appt was 02/[address] Frost. States the office called Her and asked if she could come in this morning at 8 am. Patient was unable to get to that appt this morning. Patient is still having pain and numbness tingling on her whole left side. States she is tired of calling and getting prescribed meds that aren't working. She is very upset and is asking to speak to her PCP She states she is willing to go to neurology but does not want to have to wait another month to Paul Frost in the office. States her blood pressure is going up and Her blood sugar is all over the place. States Dr Mcelroy has been my doctor for forever, can I please speak with her? * Telephone Encounter - Claire Randall - 01/14/2020 11:43 AM EDT Patient is looking to speak with a nurse. She is crying stating she just does not know what to do anymore. She has been seen for televisits a few times. She had a fall back in beginning of November. She states since then she feels like everything is falling apart. From her last visit she was referred tonuerology, she spoke to them over the phone when they called to book her. She states they asked herwhat the cause of all of this is, and she states when she fell. They are giving her a hard time on who they need to bill out for appt. Patient is confused, in a lot of pain and just doesn't know whatto do. She feels like she is getting the run around and not any help. Wishes sh could talk to Dr Segura but I advised patient Dr Segura is currently working the [facility] here and might not be able to speak to her. Please advise documented in this encounter Plan of Treatment Not on file documented as of this encounter Visit Diagnoses Not on filedocumented in this encounter Care Teams Smoking Tobacco Cutter Operator Relationship Specialty Start Date End Date Mara Mcelroy MD PCP - General Internal Medicine 08/20/15 10/12/20 Diogo Wright MD [address] [place] [address] PCP - General Internal Medicine 10/13/20 11/01/[address] [address] PCP - General Internal Medicine 11/02/21 documented as of this encounter
--- OUTSIDE RECORDS SUMMARY | 2024-09-02 16:28 | XMS_ITS | Encounter Summary ---
Author Organization [facility] Address [address] [place] [address] Care Team Providers Care Elevator Constructor Hydraulic Name Role Phone Mara Mcelroy MD Primary Care Provider Diogo Peck MD Primary Care Provider [phone] [facility], Pcp Primary Care Provider [facility] saige Encounter Details Date Type Department Care Team Description 04/23/2018 Hospital Medical Records [address] [place] [id number] Sabas Rodriguez MD Social History Tobacco Use [...] on filedocumented in this encounter Care Teams Elevator Constructor Hydraulic Relationship Specialty Start Date End Date Mara Mcelroy MD PCP - General Internal Medicine 08/20/15 10/12/20 Diogo Wright MD [address] [place] [address] PCP - General Internal Medicine 10/13/20 11/01/21 [facility], Pcp [address] [place] [address] PCP - General Internal Medicine 11/02/21 documented as of this encounter
--- OUTSIDE RECORDS SUMMARY | 2024-09-02 16:28 | XMS_ITS | Encounter Summary ---
Author Organization [facility] Address [address] [place] [address] Care Team Providers Care Instruction Dean Name Role Phone Mara Mcelroy MD Primary Care Provider Diogo Peck MD Primary Care Provider [phone] [facility], Pcp Primary Care Provider Unavailabl e Reason for Visit * Reason Onset Date Comments Prior Authorization 08/14/2020 advair Encounter Details Date Type Department Care Team Description 08/14/2020 Telephone Pulmonology - [place] [address] [facility] [address] [place] [phone] Rick Sanchez MD [address] [place] [phone] Prior Authorization (advair) Social History Tobacco [...] - 08/18/2020 10:[address] [facility] and spoke with Javid to see [...] My Meds request: Yes -- Shafer Code [id number] Name of Medication ADVAIR Dose of Medication 500-50MCG What is the RX # from the faxed refill? How does patient take this med? INHALE What Pharmacy did the fax come from: [email or web address] fax #: [facility] Party Information from fax: What Prescription Plan does the patient have? BIN/PCN if applicable: Cardholder ID: Person Code: Relationship Code: Help desk phone: [phone] documented in this encounter Plan of Treatment Not on file documented as of this encounter Visit Diagnoses Not on filedocumented in this encounter Care Teams Instruction Dean Relationship Specialty Start Date End Date Mara Mcelroy MD PCP - General Internal Medicine 08/20/15 10/12/20 Diogo Wright MD [address] [place] [address] PCP - General Internal Medicine 10/13/20 11/01/21 [facility], [address] [address] PCP - General Internal Medicine 11/02/21 documented as of this encounter
--- OUTSIDE RECORDS SUMMARY | 2024-09-02 16:28 | XMS_ITS | Encounter Summary ---
Author Organization [facility] Address [address] [place] [address] Care Team Providers Care Die Casting Machine Maintainer Name Role Phone Mara Mcelroy MD Primary Care Provider Diogo Peck MD Primary Care Provider [phone] [facility], Pcp Primary Care Provider [facility] saige Encounter Details Date Type Department Care Team Description 12/05/2019 Orders Only Medicine/Pediatrics - [address] [phone] Mara Mcelroy MD Elevated d-dimer; Pneumonia of [...] Mcelroy MD [facility] [address] [place] [address] documented in this encounter Visit Diagnoses Diagnosis Elevated d-dimer Abnormal coagulation profile Pneumonia of right lower lobe due to Chlamydia species documented in this encounter Care Teams Die Casting Machine Maintainer Relationship Specialty Start Date End Date Mara Mcelroy MD PCP - General Internal Medicine 08/20/15 10/12/20 Diogo Wright MD [address] [place] [address] PCP - General Internal Medicine 10/13/20 11/01/21 [facility], Pcp [address] [place] [address] PCP - General Internal Medicine 11/02/21 documented as of this encounter
--- OUTSIDE RECORDS SUMMARY | 2024-09-02 16:28 | XMS_ITS | Encounter Summary ---
Author Organization [facility] Address [address] [facility] [place] [address] Care Team Providers Care Mold Engraver Name Role Phone Mara Mcelroy MD Primary Care Provider Diogo Peck MD Primary Care Provider [phone] [facility], Pcp [facility] Encounter Details Date Type Department Care Team Description 10/19/2015 Release of Information Medical Records [address] [place] [id number] Abstract, Provider Social History Tobacco Use Types [...] on filedocumented in this encounter Care Teams Mold Engraver Relationship Specialty Start Date End Date Mara Mcelroy MD PCP - General Internal Medicine 08/20/15 10/12/20 Diogo Wright MD [address] [place] [address] PCP - General Internal Medicine 10/13/20 11/01/21 [facility], Pcp [address] [place] [address] PCP - General Internal Medicine 11/02/21 documented as of this encounter
--- OUTSIDE RECORDS SUMMARY | 2024-09-02 16:28 | XMS_ITS | Encounter Summary ---
Author Organization [facility] Address [address] [place] [address] Care Team Providers Care Tea Tree Farm Worker Name Role Phone Mara Mcelroy MD Primary Care Provider Diogo Peck MD Primary Care Provider [phone] [facility], Pcp Primary Care Provider [facility] saige Encounter Details Date Type Department Care Team Description 08/04/2019 Orders Only Medicine/Pediatrics - [address] [phone] Mara Mcelroy MD Social History Tobacco Use [...] on filedocumented in this encounter Care Teams Tea Tree Farm Worker Relationship Specialty Start Date End Date Mara Mcelroy MD PCP - General Internal Medicine 08/20/15 10/12/20 Diogo Wright MD [address] [place] [address] PCP - General Internal Medicine 10/13/20 11/01/21 [facility], Pcp [address] [place] [address] PCP - General Internal Medicine 11/02/21 documented as of this encounter
--- OUTSIDE RECORDS SUMMARY | 2024-09-02 16:28 | XMS_ITS | Encounter Summary ---
Author Organization [facility] Address [address] [place] [address] Care Team Providers Care Building Illuminating Engineer Name Role Phone Mara Mcelroy MD Primary Care Provider Diogo Peck MD Primary Care Provider [phone] [facility], Pcp Primary Care Provider [facility] saige Encounter Details Date Type Department Care Team Description 09/03/2015 Telephone Medicine/Pediatrics - [address] [phone] Maurice Johnson PA-C Social History Tobacco Use [...] on filedocumented in this encounter Care Teams Building Illuminating Engineer Relationship Specialty Start Date End Date Mara Mcelroy MD PCP - General Internal Medicine 08/20/15 10/12/20 Diogo Wright MD [address] [place] [address] PCP - General Internal Medicine 10/13/20 11/01/21 [facility], Pcp [address] [place] [address] PCP - General Internal Medicine 11/02/21 documented as of this encounter
--- OUTSIDE RECORDS SUMMARY | 2024-09-02 16:29 | XMS_ITS | Encounter Summary ---
Author Organization [facility] Address [address] [place] [address] Care Team Providers Care Gold Letterer Name Role Phone Mara Mcelroy MD Primary Care Provider Diogo Peck MD Primary Care Provider [phone] [facility], Pcp [facility] Reason for Visit * Reason Onset Date Comments Cough 04/24/2019 Fever 04/24/2019 Encounter Details Date Type Department Care Team Description 04/24/2019 Telephone Medicine/Pediatrics - [address] [phone] Mara Mcelroy MD Cough; Fever Social History Tobacco Use Types Packs/Day Years Used Date Smoking Tobacco: Every Day Cigarettes 0.8 26 Smokeless Tobacco: Never Alcohol Use Standard Drinks/Week Comments No 0 (1 standard drink = 0.6 oz pur e alcohol) Sex Assigned at Date Recorded Not on file documented as of this encounter Miscellaneous Notes * Telephone Encounter - Skye Adam R.N. - 04/24/2019 2:09 PM EDT Unable to leave message [employer] full * Telephone Encounter - Claire Randall - 04/24/2019 1:02 PM EDT Symptoms patient is having: Patient c/o fever, body aches, chills and a really bad cough. If pain or injury related was it due to an accident at work or from a motor vehicle accident? NO If yes, gather 3rd green party insurance information Date of accident/Injury: How long has patient had these symptoms?: past 3 days PCP: Mara Segura [place]or: [facility] [employer] FFS / Plan: [facility] [employer] / Product Type: MEDICAID RISK documented in this encounter Plan of Treatment Not on file documented as of this encounter Visit Diagnoses Not on filedocumented in this encounter Care Teams Gold Letterer Relationship Specialty Start Date End Date Mara Mcelroy MD PCP - General Internal Medicine 08/20/15 10/12/20 Diogo Wright MD [address] [place] [address] PCP - General Internal Medicine 10/13/20 11/01/21 [facility], [address] [address] PCP - General Internal Medicine 11/02/21 documented as of this encounter
--- OUTSIDE RECORDS SUMMARY | 2024-09-02 16:29 | XMS_ITS | Encounter Summary ---
Author Organization [facility] Address [address] [place] [address] Care Team Providers Care Weigher Alloy Name Role Phone Mara Mcelroy MD Primary Care Provider Diogo Peck MD Primary Care Provider [phone] [facility], Pcp [facility] Reason for Visit * Reason Onset Date Comments Prior Authorization 09/23/2020 Advair Encounter Details Date Type Department Care Team Description 09/23/2020 Telephone Pulmonology - [place] [address] [facility] [address] [place] [phone] Rick Sanchez MD [address] [facility] [place] [place] [phone] Prior Authorization (Advair ) Social History [...] Is this a Cover My Meds request: [place] of Medication Fluticasone salmeterol aerosol powder Dose of Medication 500-50mcg /dose What is the RX # from the faxed refill? N/a How does patient take this med? N/a What Pharmacy did the fax come from: [facility] fax #: [phone] [facility] Information from fax: What Prescription Plan does the patient have? Jud[facility] Book BIN/PCN if applicable: Cardholder ID: Person Code: Relationship Code: Help desk phone: documented in this encounter Plan of Treatment Not on file documented as of this encounter Visit Diagnoses Not on filedocumented in this encounter Care Teams Weigher Alloy Relationship Specialty Start Date End Date Mara Mcelroy MD PCP - General Internal Medicine 08/20/15 10/12/20 Diogo Wright MD [address] [place] [address] PCP - General Internal Medicine 10/13/20 11/01/21 [facility], [address] [address] PCP - General Internal Medicine 11/02/21 documented as of this encounter
--- OUTSIDE RECORDS SUMMARY | 2024-09-02 16:29 | XMS_ITS | Encounter Summary ---
Author Organization [facility] Address [address] [place] [address] Care Team Providers Care Buffer Automatic Name Role Phone Mara Mcelroy MD Primary Care Provider Diogo Peck MD Primary Care Provider [phone] [facility], Pcp Primary Care Provider Unavailabl e Reason for Referral * EXTERNAL (Routine) - YAEL Not Received/Patient Declined Specialty Diagnoses / Procedures Referred By Alfred t Referred To Contact Pulmonology Procedures REFERRAL TO PULMONOLOGY Mara Mcelroy MD [address] [place] [address] Stephanie [facility] [address] [place] [address] Referral ID Status Reason Start Date Expiration Date V isits Requested Visits Authorized SEE NOTE YAEL Not Received/Kristi ent Declined 04/12/2017 07/13/2017 1 1 Reason for Visit * Reason Onset Date Comments Water Ski 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 Brown Encounter Details Date Type Department Care Team Description 04/12/2017 Telephone Medicine/Pediatrics - [address] [phone] Mara Mcelroy MD Water Ski Assembler Feedback (Dr. Brown) Social History Tobacco Use Types Packs/Day Years Used Date Smoking Tobacco: Every Day Cigarettes 0.5 26 Alcohol Use Standard Drinks/Week Comments No 0 (1 standard drink = 0.6 oz pur e alcohol) Sex Assigned at Date Recorded Not on file documented as of this encounter Miscellaneous Notes * Telephone Encounter - Camilo Makayla - 04/12/2017 12:19 PM EDT Please review this patients new referral request. The referral has been pended. Please complete thefollowing: If approved> sign order If denied>please give instructions and route to your practice nursing pool. Practice nurse should inform referrals and the patient if denied. * Telephone Encounter - Mercy Acuña - 04/12/2017 12:08 PM EDT What insurance does the patient have today? Pay[place] / Plan: MEDICAID [place] / Product Type:MEDICAID [id number] Effective 04/23/09: BCBS will not retro referral requests over 90 days. If request is for this please instruct patient to call the 800# on their insurance card to appeal. Do not submit a request. Referrals cannot be processed if the insurance is not accurate. If the insurance listed above in red is NO BILLING INFORMATION FOUND FOR THIS ENCOUTNER The patients correct insurance must be obtained and registered in [facility] or their referral can not be processed. Is this a retro request? NO. If yes for what date of service do you need the retro referral? Who is calling to request this referral? Patient If the caller is not the patient, what is their name? N/A Ask the patient WHO referred them to this specialty: Patient self referred FIRST and LAST NAME of SPECIALIST PATIENT is seeing: Felipe Brown NPI unknown What specialty is this? Pulmonology DIAGNOSIS Patient is being seen for (Not a body part or a procedure): emphysema Have you seen this SPECIALIST for this PROBLEM/DX before?NO If YES, when: Have you checked REVIEW or the APPT DESK to see if this referral has already been done or has visits left? YES Is this visit:Initial Visit Address of Specialist:[address] [place] [address], [address], [place], [place] Phone # of Specialist:[phone] Fax #: (if applicable): Does patient have an appointment scheduled?: NO Date of appointment- (including a retro-request): TBD Is this appointment related to: Not MVA, WC or Surgery related documented in this encounter Plan of Treatment Not on file documented as of this encounter Visit Diagnoses Not on filedocumented in this encounter Care Teams Buffer Automatic Relationship Specialty Start Date End Date Mara Mcelroy MD PCP - General Internal Medicine 08/20/15 10/12/20 Diogo Wright MD [address] [place] [address] PCP - General Internal Medicine 10/13/20 11/01/21 [facility], [place] [address] PCP - General Internal Medicine 11/02/21 documented as of this encounter
--- OUTSIDE RECORDS SUMMARY | 2024-09-02 16:29 | XMS_ITS | Encounter Summary ---
Author Organization [facility] Address [address] [place] [address] Care Team Providers Care Junior Accountant Bookkeeper Name Role Phone Mara Mcelroy MD Primary Care Provider Diogo Peck MD Primary Care Provider [phone] [facility], Pcp [facility] Encounter Details Date Type Department Care Team Description 08/22/2018 Orders Only Medical Records [address] [place] [address] Christie Harris PA-C Social History Tobacco Use [...] on filedocumented in this encounter Care Teams Junior Accountant Bookkeeper Relationship Specialty Start Date End Date Mara Mcelroy MD PCP - General Internal Medicine 08/20/15 10/12/20 Diogo Wright MD [address] [place] [address] PCP - General Internal Medicine 10/13/20 11/01/21 [facility], Pcp [address] [place] [address] PCP - General Internal Medicine 11/02/21 documented as of this encounter
== END 2024-09-02 02:31 | disposition home or self-care (01) ==
LOC: HO.LNP 02:30
PROVIDERS: Visit Provider Obstetrics & Gynecology
DX: Z13.89 Encounter for screening for other disorder (principal)

== ENCOUNTER 2024-09-02 14:08 | Outpatient (AMB) | payer OTHER, SELFPAY ==
[2024-09-02 14:13] VITALS: BP 124/76; BMI 35.6
--- NOTE | 2024-09-02 14:13 | MHC.OFFVIS ---
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 Complaining of irregular menstrual cycles for the last 2 months associated with pelvic cramping and passage of blood clots Last Pap/HPV was negative in 01/12 Last Mammogram was BI-RADS 1 in 04/14 No previous screening colonoscopy, the patient had a colostomy for diverticulitis with abscess waiting on scheduling her surgery for reversal [facility] Medical History Itching Obesity (BMI 30-39.9) Sepsis Diverticulitis of both large and small intestine with perforation and abscess Diverticulitis of large intestine with abscess Morbid obesity with BMI of 50.0-59.9, adult Hypertension Vitamin D deficiency B12 deficiency Diabetic nephropathy associated with type 2 diabetes mellitus Dyslipidemia Hirsutism Diabetes type 2, uncontrolled Surgical History Hx of abdominal surgery Hx of umbilical hernia repair History of ankle surgery Hx of section Family History Father Throat cancer Cirrhosis Mother Diabetes Social History Household Members: None Housing: House Do you presently have visiting nurse or other home services: Yes Alcohol intake: former Patient Tobacco Use Status: Current everyday Tobacco user Tobacco use type: Cigarette Cigarette Packs Per Day: 0.5 Cigarettes Per Day: 5 Years Smoked: 30 e-Cigarette/Vaping Use: Never Used Second Hand Smoke Exposure: Yes Substance Use Type: Marijuana Advance Directives Date on File: 10/13/21 service: No Current occupational status: disabled Cognitive needs: No Hearing needs: No Vision needs: Yes Review of Systems Const All systems reviewed & are unremarkable except as noted in HPI and below Card Reports as per HPI Resp Reports as per HPI GI Reports as per HPI and Reports no additional complaints Reports as per HPI Physical Exam Vital Signs: Last Vital Signs BP 124/76 09/02/24 14:13 BMI result Body Mass Index 35.6 Const General: cooperative, healthy appearing and comfortable Chest Chest palpation & inspection: normal inspection of the chest and normal palpation of entire chest wall Breast/axilla inspection: normal inspection of the breasts and normal inspection of the axillae Breast/axilla palpation: normal palpation of the breasts, normal palpation of the axillae and no axillary lymphadenopathy Resp Effort & Inspection: normal respiratory effort Auscultation: clear to auscultation bilaterally Percussion: percussion normal Cardio Palpation: normal PMI Rate: regular rate Rhythm: regular rhythm Heart sounds: no murmurs and no rubs Peripheral pulses: Peripheral pulses 2+ throughout GI Inspection: Yes normal to inspection Palpation (GI): Soft to palpation, nontender, no guarding, not rigid and No hepatosplenomegaly present Percussion: Yes normal to percussion Auscultation: normal bowel sounds Rectal Exam - Female: deferred General: Yes bladder normal to palpation External Female Exam: No lesion Speculum Exam - Vagina: normal appearance of the vagina, normal palpation, normal vaginal discharge and not erythematous Speculum Exam - Cervix: normal appearance of the cervix and normal palpation Bimanual exam- vagina & uterus: normal bimanual exam, normal palpation, uterine size normal, bladder normal to palpation, consistency normal and normal palpation Bimanual Exam- Adnexa, other: normal adnexae, no masses and no tenderness Assessment & Plan Assessment & Plan (1) Well woman exam: Code(s): Z01.419 - Encounter for gynecological examination (general) (routine) without abnormal findings Category: Medical Plan: Cotesting not indicated this year. Mammogram ordered. GI referral placed on hold for screening colonoscopy till reversible for colostomy is done Counseled the patient about the recommended dietary allowance of 1000 mg of Calcium & 600 IU of vitamin D. The patient was instructed to perform monthly self-breast exams and to schedule an annual exam in a year; All questions answered and the patient verbalized understanding. Instructed the patient to schedule annual exam in a year (2) Abnormal uterine bleeding (AUB): Code(s): N93.9 - Abnormal uterine and vaginal bleeding, unspecified Category: Medical Plan: GC and chlamydia taken CBC, TSH, FSH/LH, HCG, and pelvic ultrasound ordered. Discussed with the patient the different causes of abnormal bleeding including thyroid disorders, uterine and ovarian pathology, endometrial hyperplasia, carcinoma and other potential causes. Discussed with the patient the work up including CBC (to r/o anemia), TSH, FSH/LH, pelvic Ultrasound, endometrial biopsy to r/o endometrial pathology. All questions answered and the patient verbalized understanding. Instructed the patient to schedule an appointment for an endometrial biopsy in 2 weeks. Orders: Orders TSH reflex Free T4 Today N93.9 - Abnormal uterine and vaginal bleeding, unspecified Complete Blood Count no Diff Today N93.9 - Abnormal uterine and vaginal bleeding, unspecified MM tomosynthesis screening BI Today Z12.31 - Encounter for screening mammogram for malignant neoplasm of breast Follicle Stimulating Hormone Today N93.9 - Abnormal uterine and vaginal bleeding, unspecified US pelvic and transvaginal Today N93.9 - Abnormal uterine and vaginal bleeding, unspecified HCG Quantitative Today N93.9 - Abnormal uterine and vaginal bleeding, unspecified Lutenizing Hormone Today N93.9 - Abnormal uterine and vaginal bleeding, unspecified Coding Level of Care Code Est Pt Level 3 (28537) Est Pt Prev Care 40-64y(00706) Diagnoses Well woman exam Z01.419 Abnormal uterine bleeding (AUB) N93.9
--- OUTSIDE RECORDS SUMMARY | 2024-09-02 15:17 | XMS_ITS | Encounter Summary ---
Author Organization [facility] Address [address] [place] [address] Care Team Providers Care Cardiovascular Physician Assistant Name Role Phone Mara Mcelroy MD Primary Care Provider Diogo Peck MD Primary Care Provider [phone] [facility], Pcp [facility] Encounter Details Date Type Department Care Team Description 09/18/2020 Old Medical Records Medical Records [address] [place] [address] Abstract, Provider Social History Tobacco Use Types [...] on filedocumented in this encounter Care Teams Cardiovascular Physician Assistant Relationship Specialty Start Date End Date Mara Mcelroy MD PCP - General Internal Medicine 08/20/15 10/12/20 Diogo Wright MD [address] [place] [address] [phone] PCP - General Internal Medicine 10/13/20 11/01/21 [facility], Pcp [address] [place] [address] PCP - General Internal Medicine 11/02/21 documented as of this encounter
--- OUTSIDE RECORDS SUMMARY | 2024-09-02 15:17 | XMS_ITS | Encounter Summary ---
Author Organization [facility] Address [address] [place] [address] Care Team Providers Care Measurement Analyst Name Role Phone Mara Mcelroy MD Primary Care Provider Diogo Peck MD Primary Care Provider [phone] [facility], Pcp [facility] Encounter Details Date Type Department Care Team Description 04/26/2016 Release of Information Medical Records [address] [place] [address] Abstract, Provider Social History Tobacco Use Types [...] on filedocumented in this encounter Care Teams Measurement Analyst Relationship Specialty Start Date End Date Mara Mcelroy MD PCP - General Internal Medicine 08/20/15 10/12/20 Diogo Wright MD [address] [place] [address] [phone] PCP - General Internal Medicine 10/13/20 11/01/21 [facility], Pcp [address] [place] [address] PCP - General Internal Medicine 11/02/21 documented as of this encounter
--- OUTSIDE RECORDS SUMMARY | 2024-09-02 15:17 | XMS_ITS | Encounter Summary ---
Author Organization [facility] Address [address] [place] [address] Care Team Providers Care Drink Box Mechanic Name Role Phone Mara Mcelroy MD Primary Care Provider Diogo Peck MD Primary Care Provider [phone] [facility], Pcp [facility] Encounter Details Date Type Department Care Team Description 06/26/[address] [phone] Helder Segura MD Social History Tobacco Use Types Packs/Day [...] on filedocumented in this encounter Care Teams Drink Box Mechanic Relationship Specialty Start Date End Date Mara Mcelroy MD PCP - General Internal Medicine 08/20/15 10/12/20 Diogo Wright MD [address] [place] [address] PCP - General Internal Medicine 10/13/20 11/01/21 [facility], Pcp [address] [place] [address] PCP - General Internal Medicine 11/02/21 documented as of this encounter
--- OUTSIDE RECORDS SUMMARY | 2024-09-02 15:17 | XMS_ITS | Encounter Summary ---
Author Organization [facility] Address [address] [place] [address] Care Team Providers Care Substation Engineer Name Role Phone Diogo Wright MD Primary Care Provider [phone] [facility], Pcp Primary Care Provider Unavailabl e Reason for Visit * Reason Onset Date Comments VNA Call 07/19/2021 Encounter Details Date Type Department Care Team Description 07/19/2021 Telephone Adult Medicine [facility] [address] [place] [address] [phone] Diogo Wright MD [address] [place] [address] [phone] VNA Call Social History Tobacco Use Types [...] VNA CALL Which VNA office is calling? [facility] Full name of caller: Meme The caller is A nurse Is the caller at the patients home?: NO Reason for call: Meme is calling as an FYI to let us know that the patient was admitted into [facility] on 07/16/21 and was discharged on 07/17/21 [...] on filedocumented in this encounter Care Teams Substation Engineer Relationship Specialty Start Date End Date Diogo Wright MD [address] [place] [address] PCP - General Internal Medicine 10/13/20 11/01/21 [place] [address] PCP - General Internal Medicine 11/02/21 documented as of this encounter
--- OUTSIDE RECORDS SUMMARY | 2024-09-02 15:17 | XMS_ITS | Encounter Summary ---
Author Organization [facility] Address [address] [place] [address] Care Team Providers Care Senior Maintenance Mechanic Name Role Phone Diogo Wright MD Primary Care Provider [phone] [facility], Pcp Primary Care Provider [facility] Encounter Details Date Type Department Care Team Description 05/04/2021 Hospital Medical Records [address] [place] [address] [facility] Social History Tobacco Use Types Packs/Day Years [...] filedocumented in this encounter Care Teams Senior Maintenance Mechanic Relationship Specialty Start Date End Date Diogo Wright MD [address] [place] [address] [phone] PCP - General Internal Medicine 10/13/20 11/01/21 [facility], Pcp [address] [place] [address] PCP - General Internal Medicine 11/02/21 documented as of this encounter
--- OUTSIDE RECORDS SUMMARY | 2024-09-02 15:17 | XMS_ITS | Encounter Summary ---
Author Organization [facility] Address [address] [facility] [address] Care Team Providers Care Middleware Architect Name Role Phone Mara Mcelroy MD Primary Care Provider Diogo Peck MD Primary Care Provider [facility], Pcp Primary Care Provider [facility] Encounter Details Date Type Department Care Team Description 08/24/2015 Release of Information Medical Records [address] [place] [address] Abstract, Provider Social History Tobacco Use Types [...] on filedocumented in this encounter Care Teams Middleware Architect Relationship Specialty Start Date End Date Mara Mcelroy MD PCP - General Internal Medicine 08/20/15 10/12/20 Diogo Wright MD [address] [place] [address] PCP - General Internal Medicine 10/13/20 11/01/21 [facility], Pcp [address] [place] [address] PCP - General Internal Medicine 11/02/21 documented as of this encounter
--- OUTSIDE RECORDS SUMMARY | 2024-09-02 15:17 | XMS_ITS | Encounter Summary ---
Author Organization [facility] Address [address] [place] [address] Care Team Providers Care School Superintendent Name Role Phone Mara Mcelroy MD Primary Care Provider Diogo Peck MD Primary Care Provider [facility], Pcp Primary Care Provider Unavailabl e Reason for Visit * Reason Onset Date Comments Prior Authorization 08/14/2020 advair Encounter Details Date Type Department Care Team Description 08/14/2020 Telephone Pulmonology - [place] [address] [facility] [address] [place] [phone] Rick Sanchez MD [address] [facility] [place] [address] [place] [phone] Prior Authorization (advair) Social History Tobacco Use Types Packs/Day Years [...] have Coronavirus / COVID-19? Unable to assess 08/13/2020 8:04 AM EST documented as of this encounter Miscellaneous Notes * Telephone Encounter - Parul Sewell M.A. - 01/05/2021 12:04 PM EDT Rx written on 09/14/20 with 5 refills. * Telephone Encounter - Talita Ríos - 08/31/2020 9:49 AM EST Please advise. * Telephone Encounter - Talita Ríos - 08/25/2020 1:16 PM EST Pharmacy requesting status of prior auth. Please advise * Telephone Encounter - Parul Sewell M.A. - 08/18/2020 10:[address] [facility] and spoke with Javid to see if pt was able to get the rx for advair. Brand name advair is the covered alternative. He transferred me to a place that was unable to take calls at thistime. Will try back later. * Telephone Encounter - Italia Ryan - 08/14/2020 1:20 PM EST Prior Authorization for Medication-do not complete and send this encounter unless you have the fax from the pharmacy. Is this a Cover My Meds request: Yes -- Shafer Code [id number] Name of Medication ADVAIR Dose of Medication 500-50MCG What is the RX # from the faxed refill? How does patient take this med? INHALE What Pharmacy did the fax come from: [facility]cover my [facility] Pharmacy fax #: [facility] Information from fax: What Prescription Plan does the patient have? BIN/PCN if applicable: Cardholder ID: Person Code: Relationship Code: Help desk phone: [phone] documented in this encounter Plan of Treatment Not on file documented as of this encounter Visit Diagnoses Not on filedocumented in this encounter Care Teams School Superintendent Relationship Specialty Start Date End Date Mara Mcelroy MD PCP - General Internal Medicine 08/20/15 10/12/20 Diogo Wright MD [address] [place] [address] PCP - General Internal Medicine 10/13/20 11/01/21 [facility], [address] [address] PCP - General Internal Medicine 11/02/21 documented as of this encounter
--- OUTSIDE RECORDS SUMMARY | 2024-09-02 15:17 | XMS_ITS | Encounter Summary ---
Author Organization [facility] Address [address] [place] [address] Care Team Providers Care Ironworker Wire Fence Erector Name Role Phone Mara Mcelroy MD Primary Care Provider Diogo Peck MD Primary Care Provider [phone] [facility], Pcp Primary Care Provider [facility] Encounter Details Date Type Department Care Team Description 10/06/2015 Hospital Medical Records [address] [place] [address] Fredrick Stokes MD [address] [place] [address] [phone] Social History Tobacco Use Types Packs/Day Years [...] on filedocumented in this encounter Care Teams Ironworker Wire Fence Erector Relationship Specialty Start Date End Date Mara Mcelroy MD PCP - General Internal Medicine 08/20/15 10/12/20 Diogo Wright MD [address] [place] [address] [phone] PCP - General Internal Medicine 10/13/20 11/01/21 [facility], Pcp [address] [place] [address] PCP - General Internal Medicine 11/02/21 documented as of this encounter
--- OUTSIDE RECORDS SUMMARY | 2024-09-02 15:17 | XMS_ITS | Encounter Summary ---
Author Organization [facility] Address [address] [place] [address] Care Team Providers Care Ophthalmology Technician Name Role Phone Mara Mcelroy MD Primary Care Provider Diogo Peck MD Primary Care Provider [phone] [facility], Pcp Primary Care Provider Unavailabl e Reason for Referral * Non LEANDRO (Routine) - Authorized/Booked Specialty Diagnoses / Procedures Referred By Alfred joseph Referred To Contact Mental Health Procedures REFERRAL TO BEHAVIORAL HEALTH Mara Mcelroy MD [address] [place] [address] [facility]/[address] [phone] Referral ID Status Reason Start Date Expiration Date V isits Requested Visits Authorized APPT BOOKED Authorized/B ooked 01/10/2019 01/10/2020 1 1 Reason for Visit * Reason Onset Date Comments REFERRAL 01/09/2019 Encounter Details Date Type Department Care Team Description 01/09/2019 Telephone Adult Medicine - [place] [address] [place] [address] Mara Mcelroy MD REFERRAL Social History Tobacco Use Types Packs/Day Years Used Date Smoking Tobacco: Every Day Cigarettes 0.8 26 Smokeless Tobacco: Never Alcohol Use Standard Drinks/Week Comments No 0 (1 standard drink = 0.6 oz pur e alcohol) Sex Assigned at Date Recorded Not on file documented as of this encounter Miscellaneous Notes * Telephone Encounter - Mara Mcelroy MD - 01/10/2019 8:13 AM EDT signed * Telephone Encounter - Shayy Mcclelland Rn - 01/09/2019 3:58 PM EDT Last ov was on 12/14/18 in adult Medicine * Telephone Encounter - Maria Teresa Talley - 01/09/2019 3:06 PM EDT Good Afternoon, I am requesting a Referral to the [facility]; patient has a hx of PTSD and anxiety. Thank you, Maria Teresa documented in this encounter Plan of Treatment Not on file documented as of this encounter Visit Diagnoses Not on filedocumented in this encounter Care Teams Ophthalmology Technician Relationship Specialty Start Date End Date Mara Mcelroy MD PCP - General Internal Medicine 08/20/15 10/12/20 Diogo Wright MD [address] [place] [address] PCP - General Internal Medicine 10/13/20 11/01/21 [facility], Pcp [address] [place] [address] PCP - General Internal Medicine 11/02/21 documented as of this encounter
--- OUTSIDE RECORDS SUMMARY | 2024-09-02 15:17 | XMS_ITS | Data Portability ---
Author Organization [place] - [facility], Allergy Address [address] [place] [phone] Assessment Encounter Date Assessment Date Assessment LastModified [...] disequilibrium is coming from an otologic source. [email or web address] Not available 12/29/2023 16:52:35 Plan of Treatment Reminders Order Date Submit Date Provider Last Modified By Organization Details Last Modified Time Details Appointments None recorded. Lab None recorded. Referral neurologist referral 2023 024 [email or web address] 2 [facility]rology Scheduling, [address] [place], [address], 4 10:41:05 Procedures None recorded. Surgeries None [...] Organization Details Recorded Time Abnormal auditory perception 72262436 Active 2023 Savannah chicas [place] - [facility] 16:32:03 Migraine without aura 39893428 Active 2023 JUNIE RICH PA-C [address] [place] [address],[address], [phone], [facility] 4 16:52:39 Dizziness and giddiness 049190215 Active 2023 JUNIE RICH PA-C [address] [place] [address],[address], [phone], [facility] 4 16:52:43 Bilateral earache 339162553 Active 2023 JUNIE RICH PA-C [address] [place] [address],[address], [address], [facility] 4 16:52:54 Bilateral temporomand ibular joint pain 8202220182374 9105 Active 2023 JUNIE RICH PA-C [address] [place] [address], [address] [place] [address], [phone], [facility] 4 16:53:00 Problem Notes None recorded. Procedures Surgical History Date Name Laterality Status Provider Name and Address Organization Details Recorded Time Comp Audio with Tymps (30108 & 88240) completed Savannah Goldsmith [place] - [facility] 12/29/2023 16:30:31 Cerumen removal without microscope left completed JUNIE RICH PA-C [address] [place] [address],[place] [address], [place], [phone], [facility] - [facility] 12/29/2023 14:56:07 Imaging Results Imaging Date [...] Note 3283 JUNIE RICH PA-C [facility] [address] [phone] 12/29/2023 13:49:33 12/29/2023 16:39:20 Abnormal auditory perception 60134054 H93.299 Audiologic al evaluation results: Right ear: [...] a hermetic seal}} Migraine without aura 56 051685 G43.009 Dizziness and giddiness 469219251 R42 Bilateral earache 757988 003 H92.03 Bilateral temporomandibular joint pain 2435554324 7061204 M26.623 Health Concerns Section Related Observation LastModified by Organization Detai ls LastModified Time None Recorded Concern Status LastModified by Organization Details LastModified Time None Recorded Advance Directives Directive None Recorded Payers Encounter Date Sequence Insurance Name Policy Number Policy Rodriguez Covered Member ID Rodriguez Member ID Guarantor Name 12/29/2023 1 [facility] HEALTH NET PLAN (MEDICAID HMO) BURTON Quiñonez [id number] Mckenzie Quiñonez Notes Date Note Type Note [...] in several years. JUNIE RICH PA-C [address] [facility],[place] [address], [place], [address], [place] - [facility] 12/29/2023 16:53:54 OBGyn Episode No OBEpisode recorded.
--- OUTSIDE RECORDS SUMMARY | 2024-09-02 15:17 | XMS_ITS | Encounter Summary ---
Author Organization [facility] Address [address] [place] [address] Care Team Providers Care Arrow Point Attacher Name Role Phone Mara Mcelroy MD Primary Care Provider Diogo Peck MD Primary Care Provider [phone] [facility], Pcp Primary [facility] Encounter Details Date Type Department Care Team Description 06/29/2018 Orders Only Medical Records [address] [place] [address] Rick Sanchez MD [address] [place] [phone] Social History Tobacco Use Types Packs/Day [...] on filedocumented in this encounter Care Teams Arrow Point Attacher Relationship Specialty Start Date End Date Mara Mcelroy MD PCP - General Internal Medicine 08/20/15 10/12/20 Diogo Wright MD [address] [place] [address] PCP - General Internal Medicine 10/13/20 11/01/21 [facility], Pcp [address] [place] [address] PCP - General Internal Medicine 11/02/21 documented as of this encounter
--- OUTSIDE RECORDS SUMMARY | 2024-09-02 15:17 | XMS_ITS | Encounter Summary ---
Author Organization [facility] Address [address] [place] [address] Care Team Providers Care Marine Gear Keeper Name Role Phone Mara Mcelroy MD Primary Care Provider Diogo Peck MD Primary Care Provider [phone] Formerly [facility], Pcp Primary Care Provider [facility] saige Encounter Details Date Type Department Care Team Description 04/23/2018 Hospital Medical Records [address] [place] [address] Sabas Rodriguez MD Social History Tobacco Use Types Packs/Day [...] on filedocumented in this encounter Care Teams Marine Gear Keeper Relationship Specialty Start Date End Date Mara Mcelroy MD PCP - General Internal Medicine 08/20/15 10/12/20 Diogo Wright MD [address] [place] [address] PCP - General Internal Medicine 10/13/20 11/01/21 [facility], Pcp [address] [place] [address] PCP - General Internal Medicine 11/02/21 documented as of this encounter
--- OUTSIDE RECORDS SUMMARY | 2024-09-02 15:17 | XMS_ITS | Clinical Summary ---
Author Organization [facility] Address [address] [place] [address] 7 [place] [address] Care Team Providers Care Burlap Roll Coverer Name Role Phone Unavailable Primary Care Provider [...] Sodium Fluoride 1.1 % creamIndication s:Dental caries [place] teeth for 2 minutes, morning and night. [...] Description 08/02/2024 8:30 AM EST Office Visit [facility] [address] [place] [address] Nirmal Odell DMD Dental caries (Primary Dx) 07/26/2024 8:00 AM EST Office Visit [facility] [address] [place] [address] Nirmal Odell DMD Periodontal disease (Primary Dx); Dental caries 07/25/2024 2:00 PM EST Office Visit [facility] [address] [place] [address] Mireya Cole Dental calculus (Primary Dx); Dental [...] Description 09/03/2024 10:00 AM EST Office Visit [facility] [address] [place] [address] Nirmal Odell DMD [address] [place] [address] Health Maintenance Due Date Last Done Comments CT Colonography 1976 Colonoscopy 1976 Colorectal Cancer Screening 1976 Depression Screening 1976 Diabetes: Hemoglobin A1C 1976 FIT DNA/Cologuard 1976 FIT 1976 FOBT 1976 HIV Screening 1976 Lipid Panel 1976 SDOH Screening 1976 Sigmoidoscopy 1976 COVID-19 Vaccine (#1) 1981 Diabetes: Foot Exam 1986 Eye Exam 1986 Alcohol/Substance Use Screening 1988 Family Planning (PISQ) 1991 Hepatitis C Screening 1994 Diabetes: Urine Protein Screening 1995 Hepatitis A Vaccines (1 of 2 - Risk 2-dose series) 1995 Hepatitis B Vaccines (1 of 3 - 19+ 3-dose series) 1995 Pneumococcal Vaccine: Pediatrics (0 to 5 Years) and At-Risk Patients (6 to 49) Years) (1 of 2 - PCV) 1995 Zoster Vaccines (1 of 2) 1995 [...] AM EST from Last 3 Months Insurance [facility] MEDICAID STAND ADULT
--- OUTSIDE RECORDS SUMMARY | 2024-09-02 15:17 | XMS_ITS | Clinical Summary ---
Author Organization [facility] Address [address] [place] [address] Care Team Providers Care Marketing Operations Specialist Name Role Phone Diogo Wright MD Primary Care Provider [phone] Allergies Active Allergy Reactions Criticality Noted Date Comments Latex Hives 08/21/2015 Medications albuterol HFA (PROAIR HFA ; PROVENTIL HFA ; VENTOLIN HFA) 90 mcg/actuation inhaler Inhale 2 Puffs into the lungs every 4 hours as needed for Cough, Wheezing or Shortness of Breath. 8 Active atorvastatin (LIPITOR) 10 mg tablet Take 1 tablet (10 mg total) by mouth 1 (one) time each day. 0 Active cholecalciferol (VITAMIN D-3) 50 mcg (2,000 unit) tablet Take 1 tablet (2,000 Units total) by mouth 1 (one) time each day. 0 Active fluticasone propion-salmete roL (AIRDUO RESPICLICK) 113-14 mcg/actuation aerosol powdr breath activated inhaler Inhale 1 Puff into the lungs 2 times daily. 9 Active FREESTYLE LANCETS MISC 1 Device by Does not apply route 4 times daily. 9 Active blood sugar diagnostic (FreeStyle Lite Strips) test strip USE TO TEST BLOOD SUGAR 4 TIMES A DAY 0 Active insulin glargine (LANTUS SoloStar) 100 unit/mL (3 mL) injection pen Inject 50 Units into the skin at bedtime. 0 Active insulin lispro (HumaLOG KwikPen) 100 unit/mL injection pen Inject 6 Units into the skin 3 times daily (before meals). 9 Active pen needle, diabetic (PEN NEEDLE MISC) Insulin Pen Needle (PEN NEEDLES) 32G X 6 MM Misc- 1 Each by Does not apply route 4 times daily. 0 Active lisinopriL (PRINIVIL,ZESTR IL) 2.5 mg tablet 0 Active predniSONE (DELTASONE) 10 mg tablet Take 1 tablet (10 mg total) by mouth 1 (one) time each day. 0 Active predniSONE 5 mg tablets,dose pack Take 5 mg by mouth daily. 1 tablets daily for 3 weeks 1 Active dulaglutide (Trulicity) 0.75 mg/0.5 mL pen injector injection Inject 0.75 mg into the skin daily. 0 Active Active Problems Problem Noted [...] s/p repair Anxiety 12/11/2015 DX:Anxiety Emphysema, unspecified ([facility]) 01/06 DX:Emphysema, unspecified ([facility]); COMMENT: per patient Obesity DX:Obesity COPD (chronic obstructive pu lmonary disease) ([facility]) DX:COPD (chronic obstructive pulmonary disease) ([facility]) Tobacco abuse DX:Tobacco abuse Type 2 diabetes mellitus ([facility]) DX:Type 2 diabetes mellitus (HCC) Vitamin D deficiency DX:Vitamin D deficiency Anxiety DX:Anxiety Hyperlipidemia DX:Hyperlipidemi a Family History Medical History Relation Name Comments Breast cancer Aunt paternal ?age Suicide Attempts Brother x 1 Throat cancer Father (+smoker), ACCOUNTANT CLERK D, HTN, liver transplant Heart failure Maternal [...] = 0.6 oz pur e alcohol) Comments Unknown Sex and Gender Information Value Date Recorded Sex Assigned at Not on file Legal Sex Female 1:33 AM EST Gender Identity Not on file Sexual Orientation Not on file Obstetrics History Plan of Treatment Health Maintenance Due Date Last Done Comments Breast Cancer Screening 1976 COVID-19 Vaccine (#1) 1981 Diabetes: Annual Foot Exam 1986 Diabetes: Annual Retina Eye Exam 1986 Hepatitis B Vaccines (1 of 3 - 19+ 3-dose series) 1995 Pneumococcal Vaccine: Pediatrics (0 to 5 Years) and At-Risk Patients (6 to 64 Years) (1 of 2 - PCV) 1995 DTaP,Tdap,and Td Vaccines (2 - Td or Tdap) 01/08/2016 12/11/2015 Cervical Cancer Screening: P ap Smear 02/08/2019 02/09/2016, 02/09/2016 Diabetes: Annual GFR (Glomerular Filtration Rate) 03/27/2021 03/27/2020 Colorectal Cancer Screening: Colonoscopy 06/26/2022 Depression Screening 06/26/2022 Social Influencers of Health Screening 06/26/2022 Diabetes: Annual Urine Albumin-Creatinine Ratio (uACR) 06/30/2022 03/27/2020 Diabetes: Blood Sugar Contro l Test (HGBA1C) 06/30/2022 03/27/2020 Influenza Vaccine (#1) 2024 Cholesterol Screening (Lipid Panel) 03/27/2025 03/27/2020 HIV Screening Completed 08/23/2018 Hepatitis C Screening [...] patient's age to complete this topic Meningococcal B Vacine Aged Out No lo nger eligible based on patient's age to complete this topic RSV Immunization Patients Under 20 months Aged Out No longer eligible b ased on patient's age to complete this topic Varicella Vaccines Aged Out No longer eligible based on patient's age to complete this topic Procedures Procedure Name Priority Date/Time Associated Diagnosis Comments HM URINE ALBUMIN CREATININE RATIO Routine 03/27/2020 ANNUAL BMP BLOOD TEST Routine 03/27/2020 HEMOGLOBIN A1C Routine 03/27/2020 LIPID PANEL Routine 03/27/2020 HEPATITIS C SCREENING Routine 08/23/2018 HIV SCREENING Routine 08/23/2018 HPV Routine 02/09/2016 from Last 3 Months or Most Recently Relevant to Health Maintenance Results * Urine Albumin Creatinine Ratio (03/27/2020) [facility] Urine Albumin Creatinine Ratio abstracted Result [facility] Provider HEALTH MAINTENANCE Final Result * Annual BMP Blood Test (03/27/2020) [facility] Annual BMP Blood Test abstracted Result [facility] Provider HEALTH MAINTENANCE Final Result * (ABNORMAL) Hemoglobin A1c (03/27/2020) [facility] Hemoglobin A1C 7.2(A) <=6.5 % Blood Venous blood specimen / Unknown Result [facility] Provider LAB BLOOD ORDERABLES Celsa l Result * (ABNORMAL) Lipid panel (03/27/2020) [facility] LDL/HDL Ratio 9(A) 0 - 4 Triglycerides 388(A) 0 - 150 mg/dL Cholesterol 285(A) 0 - 200 mg/dL HDL 31(A) >=40 mg/dL LDL Cholesterol 177(A) 0 - 100 mg/dL Blood Venous blood specimen / Unknown Result [facility] Provider LAB BLOOD ORDERABLES Celsa l Result * HIV Screening (08/23/2018) [facility] HIV Screening abstracted Result [facility] Provider HEALTH MAINTENANCE Final Result * Hepatitis C Screening (08/23/2018) [facility] Hepatitis C Screening abstracted Result [facility] Provider HEALTH MAINTENANCE Final Result * Cervical Cancer Screening: HPV (02/09/2016) [facility] Cervical Cancer Screening: HPV negative, abstracted Result [facility] Provider HEALTH MAINTENANCE Final Result from Last 3 Months or Most Recently Relevant to Health Maintenance Care Teams Marketing Operations Specialist Relationship Specialty Start Date End Date Diogo Wright MD PCP - General Internal Medicine 03/12/21
--- OUTSIDE RECORDS SUMMARY | 2024-09-02 15:17 | XMS_ITS | Encounter Summary ---
Author Organization [facility] Address [address] [place] [address] Care Team Providers Care Shot Dropper Name Role Phone Mara Mcelroy MD Primary Care Provider Diogo Peck MD Primary Care Provider [phone] Formerly [facility], Pcp Primary Care Provider [facility] saige Encounter Details Date Type Department Care Team Description 01/15/2020 Cake Stripper Report Medical Records [address] [place] [address] Aundrea Frost MD Social History Tobacco Use [...] on filedocumented in this encounter Care Teams Shot Dropper Relationship Specialty Start Date End Date Mara Mcelroy MD PCP - General Internal Medicine 08/20/15 10/12/20 Diogo Wright MD [address] [place] [address] [id number] PCP - General Internal Medicine 10/13/20 11/01/21 [facility], Pcp [address] [place] [address] PCP - General Internal Medicine 11/02/21 documented as of this encounter
--- OUTSIDE RECORDS SUMMARY | 2024-09-02 15:17 | XMS_ITS | Clinical Summary ---
Author Organization [facility] Address [address] [place] [address] Care Team Providers Care Machine Molder Squeeze Name Role Phone Diogo Wright MD Primary Care Provider [phone] Allergies Active Allergy Reactions Criticality Noted Date [...] age to complete this topic Care Teams Machine Molder Squeeze Relationship Specialty Start Date End Date Diogo Wright MD PCP - General Internal Medicine 03/12/21
--- OUTSIDE RECORDS SUMMARY | 2024-09-02 15:17 | XMS_ITS | Encounter Summary ---
Author Organization [facility] Address [address] [place] [address] Care Team Providers Care Natural Gas Field Processing Supervisor Name Role Phone Mara Mcelroy MD Primary Care Provider Diogo Peck MD Primary Care Provider [phone] [facility] Encounter Details Date Type Department Care Team Description 09/15/2020 Buttermilk Drier Operator Report Medical Records [address] [place] [address] Helder Pablo MD Social History Tobacco Use Types Packs/Day [...] on filedocumented in this encounter Care Teams Natural Gas Field Processing Supervisor Relationship Specialty Start Date End Date Mara Mcelroy MD PCP - General Internal Medicine 08/20/15 10/12/20 Diogo Wright MD [address] [place] [address] [phone] PCP - General Internal Medicine 10/13/20 11/01/21 [facility], Pcp [address] [place] [address] PCP - General Internal Medicine 11/02/21 documented as of this encounter
--- OUTSIDE RECORDS SUMMARY | 2024-09-02 15:17 | XMS_ITS | Encounter Summary ---
Author Organization [facility] Address [address] [place] [address] Care Team Providers Care Respite Provider Name Role Phone Mara Mcelroy MD Primary Care Provider Diogo Peck MD Primary Care Provider [phone] [facility], Pcp [facility] Reason for Referral * Non LEANDRO (Routine) - Authorized/Booked Specialty Diagnoses / Procedures Referred By Alfred t Referred To Contact General Surgery Procedures REFERRAL TO GENERAL SURGERY Maurice Johnson PA-C [address] [place] [address] Fredrick Stokes MD [address] [place] [address] Referral ID Status Reason Start Date Expiration Date V isits Requested Visits Authorized [id number] Authorized/B ooked 2015 08/25/2016 12 12 Encounter Details Date Type Department Care Team Description 2015 Orders Only Medicine/Pediatrics - [address] [phone] Maurice Johnson PA-C Social History Tobacco Use [...] on filedocumented in this encounter Care Teams Respite Provider Relationship Specialty Start Date End Date Mara Mcelroy MD PCP - General Internal Medicine 08/20/15 10/12/20 Diogo Wright MD [address] [place] [address] PCP - General Internal Medicine 10/13/20 11/01/21 [facility], Pcp [address] [place] [address] PCP - General Internal Medicine 11/02/21 documented as of this encounter
--- OUTSIDE RECORDS SUMMARY | 2024-09-02 15:17 | XMS_ITS | Encounter Summary ---
Author Organization [facility] Address [address] [place] [address] Care Team Providers Care Wireless Sales Consultant Name Role Phone Mara Mcelroy MD Primary Care Provider Diogo Peck MD Primary Care Provider [phone] [facility], Pcp [facility] Encounter Details Date Type Department Care Team Description 08/22/2018 Orders Only Medical Records [address] [place] [address] Christie Harris PA-C Social History Tobacco Use Types Packs/Day [...] Name Priority Date/Time Associated Diagnosis Comments OUTSIDE HOLTER MONITOR Routine 08/15/2018 documented in this encounter Results * OUTSIDE HOLTER MONITOR (08/15/2018) Christie Harris PA-C CARDIOLOGY documented in this encounter Visit Diagnoses Not on filedocumented in this encounter Care Teams Wireless Sales Consultant Relationship Specialty Start Date End Date Mara Mcelroy MD PCP - General Internal Medicine 08/20/15 10/12/20 Diogo Wright MD [address] [place] [address] PCP - General Internal Medicine 10/13/20 11/01/21 [facility], Pcp [address] [place] [address] PCP - General Internal Medicine 11/02/21 documented as of this encounter
--- OUTSIDE RECORDS SUMMARY | 2024-09-02 15:17 | XMS_ITS | Encounter Summary ---
Author Organization [facility] Address [address] [place] [address] Care Team Providers Care Rotoprinter Name Role Phone Mara Mcelroy MD Primary Care Provider Diogo Peck MD Primary Care Provider [phone] [facility], Pcp Primary Care Provider [facility] saige Encounter Details Date Type Department Care Team Description 06/16/2020 Transfer Records Medical Records [address] [place] [address] Abstract, Provider Social History Tobacco Use Types [...] on filedocumented in this encounter Care Teams Rotoprinter Relationship Specialty Start Date End Date Mara Mcelroy MD PCP - General Internal Medicine 08/20/15 10/12/20 Diogo Wright MD [address] [place] [address] PCP - General Internal Medicine 10/13/20 11/01/21 [facility], Pcp [address] [place] [address] PCP - General Internal Medicine 11/02/21 documented as of this encounter
--- OUTSIDE RECORDS SUMMARY | 2024-09-02 15:17 | XMS_ITS | Encounter Summary ---
Author Organization [facility] Address [address] [place] [address] Care Team Providers Care Hide Examiner Name Role Phone Mara Mcelroy MD Primary Care Provider Diogo Peck MD Primary Care Provider [phone] [facility], Pcp Primary Care Provider [facility] saige Encounter Details Date Type Department Care Team Description 10/04/2019 Pipe Stem Sawyer Report Medical Records [address] [place] [address] [facility] Social History Tobacco Use Types Packs/Day [...] on filedocumented in this encounter Care Teams Hide Examiner Relationship Specialty Start Date End Date Mara Mcelroy MD PCP - General Internal Medicine 08/20/15 10/12/20 Diogo Wright MD [address] [place] [address] PCP - General Internal Medicine 10/13/20 11/01/21 [facility], Pcp [address] [place] [address] PCP - General Internal Medicine 11/02/21 documented as of this encounter
--- OUTSIDE RECORDS SUMMARY | 2024-09-02 15:17 | XMS_ITS | Encounter Summary ---
Author Organization [facility] Address [address] [place] [address] Care Team Providers Care Marketing Information Coordinator Name Role Phone Mara Mcelroy MD Primary Care Provider Diogo Peck MD Primary Care Provider [phone] [facility], Pcp Primary [facility] Encounter Details Date Type Department Care Team Description 03/18/2020 Dye Machine Tender Report Medical Records [address] [place] [address] [facility] Social History Tobacco Use Types Packs/Day [...] on filedocumented in this encounter Care Teams Marketing Information Coordinator Relationship Specialty Start Date End Date Mara Mcelroy MD PCP - General Internal Medicine 08/20/15 10/12/20 Diogo Wright MD [address] [place] [address] PCP - General Internal Medicine 10/13/20 11/01/21 [facility], Pcp [address] [place] [address] PCP - General Internal Medicine 11/02/21 documented as of this encounter
--- OUTSIDE RECORDS SUMMARY | 2024-09-02 15:17 | XMS_ITS | Encounter Summary ---
Author Organization [facility] Address [address] [place] [address] Care Team Providers Care Cotton Sampler Name Role Phone Mara Mcelroy MD Primary Care Provider Diogo Peck MD Primary Care Provider [facility], Pcp Primary Care Provider [facility] saige Encounter Details Date Type Department Care Team Description 08/04/2019 Orders Only Medicine/Pediatrics - [address] [phone] Mara Mcelroy MD Social History Tobacco Use [...] on filedocumented in this encounter Care Teams Cotton Sampler Relationship Specialty Start Date End Date Mara Mcelroy MD PCP - General Internal Medicine 08/20/15 10/12/20 Diogo Wright MD [address] [place] [address] PCP - General Internal Medicine 10/13/20 11/01/21 [facility], Pcp [address] [place] [address] PCP - General Internal Medicine 11/02/21 documented as of this encounter
--- OUTSIDE RECORDS SUMMARY | 2024-09-02 15:17 | XMS_ITS | Encounter Summary ---
Author Organization [facility] Address [address] [place] [address] Care Team Providers Care Beer Brewer Name Role Phone Mara Mcelroy MD Primary Care Provider Diogo Peck MD Primary Care Provider [phone] [facility], Pcp Primary Care Provider Unavailabl e Reason for Referral * Non LEANDRO (Routine) - Authorized/Booked Specialty Diagnoses / Procedures Referred By Contfiliberto t Referred To Contact General Surgery Diagnoses Umbilical hernia without obstruction and without gangrene Procedures REFERRAL TO GENERAL SURGERY (IN NETWORK) Arlin Hoover PA-C [address] [place] [address] Gen [facility] [address] [address] Referral ID Status Reason Start Date Expiration Date V isits Requested Visits Authorized [id number] Authorized/B ooked 12/11/2019 12/10/2020 1 1 Encounter Details Date Type Department Care Team Description 12/11/2019 Orders Only Adult Medicine [address] [address] Arlin Hoover PA-C [address] [place] [address] [phone] Umbilical hernia without obstruction and without gangrene (Primary Dx) Social History Tobacco Use Types [...] as of this encounter Visit Diagnoses Diagnosis Umbilical hernia without obstruction and without gangrene- Primary documented in this encounter Care Teams Beer Brewer Relationship Specialty Start Date End Date Mara Mcelroy MD PCP - General Internal Medicine 08/20/15 10/12/20 Diogo Wright MD [address] [place] [address] PCP - General Internal Medicine 10/13/20 11/01/21 [place] [address] PCP - General Internal Medicine 11/02/21 documented as of this encounter
== END 2024-09-02 15:04 | disposition home or self-care (01) ==
LOC: HO.HWS 14:08
PROVIDERS: PCP Physician Assistant; Visit Provider Obstetrics & Gynecology
DX: Z01.419 Encounter for gynecological examination (general) (routine) without abnormal findings (principal); N93.9 Abnormal uterine and vaginal bleeding, unspecified
CPT/HCPCS: 99213; 99396; 99459

== ENCOUNTER 2024-09-02 14:08 | Outpatient (REF) | payer OTHER, SELFPAY ==
[2024-09-02 15:38] LABS: MANUAL DIFF FLAG NO
[2024-09-02 16:16] LABS: Basophils Absolute Auto 0.1 X10*3/uL (0.0-0.2); Basophils Percent Auto 0.6 % (0-2); Eosinophils Absolute Auto 0.2 X10*3/uL (0.0-0.4); Eosinophils Percent Auto 1.8 % (0-4); Hematocrit 37.4 % (37.0-47.0); Hematocrit 37.9 % (37.0-47.0); Imm Gran Abs Auto 0.04 X10*3/uL (0.00-0.03); Imm Gran Pct Auto 0.3 % (0.0-0.4); Lymphocytes Absolute Auto 2.9 X10*3/uL (1.2-4.9); Lymphocytes Percent Auto 24.5 % (20-40); Mean Corpuscular HGB Conc 34.3 g/dl (31.0-35.0); Mean Corpuscular HGB Conc 34.8 g/dl (31.0-35.0); Mean Corpuscular Hemoglobin 27.1 pg (27.0-33.0); Mean Corpuscular Hemoglobin 27.3 pg (27.0-33.0); Mean Corpuscular Volume 78.4 fL (80.0-98.0); Mean Platelet Volume 12.5 fL (9.4-12.3); Monocytes Absolute Auto 0.5 X10*3/uL (0.1-1.2); Monocytes Percent Auto 3.8 % (2-11); Neutrophils Absolute Auto 8.1 x10*3/uL (2.0-8.3); Platelet Count 232 X10*3/uL (160-400); Platelet Count 236 X10*3/uL (160-400); Red Blood Count 4.77 X10*6/uL (4.20-5.50); Red Cell Distribution Width 14.4 % (11.0-16.0); White Blood Count 11.6 X10*3/uL (4.8-10.8); White Blood Count 11.8 X10*3/uL (4.8-10.8)
--- OUTSIDE RECORDS SUMMARY | 2024-09-02 16:17 | XMS_ITS | Encounter Summary ---
Author Organization [facility] Address [address] [place] [address] Care Team Providers Care Cord Maker Name Role Phone Diogo Wright MD Primary Care Provider [phone] [facility], Pcp Primary Care Provider Unavailabl e Encounter Details Date Type Department Care Team Description 05/13/2021 Protection Engineer Report Medical Records [address] [place] [address] Kaushik Gómez MD Social History Tobacco Use [...] on filedocumented in this encounter Care Teams Cord Maker Relationship Specialty Start Date End Date Diogo Wright MD [address] [place] [address] PCP - General Internal Medicine 10/13/20 11/01/21 [facility], Pcp [address] [place] [address] PCP - General Internal Medicine 11/02/21 documented as of this encounter
--- OUTSIDE RECORDS SUMMARY | 2024-09-02 16:17 | XMS_ITS | Encounter Summary ---
Author Organization [facility] Address [address] [place] [address] Care Team Providers Care Collar Runner Name Role Phone Mara Mcelroy MD Primary Care Provider Diogo Peck MD Primary Care Provider [phone] [facility], Pcp [facility] Encounter Details Date Type Department Care Team Description 02/05/2020 Infant Lead Teacher Report Medical Records [address] [place] [address] [facility] Social History Tobacco Use Types Packs/Day [...] on filedocumented in this encounter Care Teams Collar Runner Relationship Specialty Start Date End Date Mara Mcelroy MD PCP - General Internal Medicine 08/20/15 10/12/20 Diogo Wright MD [address] [place] [address] PCP - General Internal Medicine 10/13/20 11/01/21 [facility], Pcp [address] [place] [address] PCP - General Internal Medicine 11/02/21 documented as of this encounter
--- OUTSIDE RECORDS SUMMARY | 2024-09-02 16:17 | XMS_ITS | Encounter Summary ---
Author Organization [facility] Address [address] [place] [address] Care Team Providers Care Sales Support Associate Name Role Phone Mara Mcelroy MD Primary Care Provider Diogo Peck MD Primary Care Provider [phone] [facility], Pcp Primary Care Provider [facility] saige Encounter Details Date Type Department Care Team Description 06/16/2020 Transfer Records Medical Records [address] [place] [address] Abstract, Provider Social History Tobacco Use Types [...] on filedocumented in this encounter Care Teams Sales Support Associate Relationship Specialty Start Date End Date Mara Mcelroy MD PCP - General Internal Medicine 08/20/15 10/12/20 Diogo Wright MD [address] [place] [address] PCP - General Internal Medicine 10/13/20 11/01/21 [facility], Pcp [address] [place] [address] PCP - General Internal Medicine 11/02/21 documented as of this encounter
--- OUTSIDE RECORDS SUMMARY | 2024-09-02 16:17 | XMS_ITS | Encounter Summary ---
Author Organization [facility] Address [address] [place] [address] Care Team Providers Care Director Process Engineering Name Role Phone Mara Mcelroy MD Primary Care Provider Diogo Peck MD Primary Care Provider [phone] [facility], Pcp Primary Care Provider [facility] saige Encounter Details Date Type Department Care Team Description 04/06/2020 Orders Only Adult Medicine [facility] [address] [place] [address] Arlin Hoover PA-C [address] [place], [place] [phone] Vitamin D deficiency (Primary Dx) Social History [...] deficiency documented in this encounter Care Teams Director Process Engineering Relationship Specialty Start Date End Date Mara Mcelroy MD PCP - General Internal Medicine 08/20/15 10/12/20 Diogo Wright MD [address] [place] [address] PCP - General Internal Medicine 10/13/20 11/01/21 [facility], [address] [address] PCP - General Internal Medicine 11/02/21 documented as of this encounter
--- OUTSIDE RECORDS SUMMARY | 2024-09-02 16:17 | XMS_ITS | Encounter Summary ---
Author Organization [facility] Address [address] [place] [address] Care Team Providers Care Solid Waste Analyst Name Role Phone Diogo Wright MD Primary Care Provider [phone] [facility], Pcp Primary Care Provider Unavailabl e Encounter Details Date Type Department Care Team Description 02/08/2021 Goat Herder Report Medical Records [address] [place] [address] Helder Pablo MD Social History Tobacco Use [...] on filedocumented in this encounter Care Teams Solid Waste Analyst Relationship Specialty Start Date End Date Diogo Wright MD [address] [place] [address] PCP - General Internal Medicine 10/13/20 11/01/21 [facility], Pcp [address] [place] [address] PCP - General Internal Medicine 11/02/21 documented as of this encounter
--- OUTSIDE RECORDS SUMMARY | 2024-09-02 16:17 | XMS_ITS | Encounter Summary ---
Author Organization [facility] Address [address] [place] [address] Care Team Providers Care Nuclear Engineer Name Role Phone Diogo Wright MD Primary Care Provider [phone] [facility], Pcp Primary Care Provider Unavailabl e Encounter Details Date Type Department Care Team Description 04/06/2021 Hospital Medical Records [address] [place] [address] Kaushik Gómez MD Social History Tobacco Use [...] on filedocumented in this encounter Care Teams Nuclear Engineer Relationship Specialty Start Date End Date Diogo Wright MD [address] [place] [address] PCP - General Internal Medicine 10/13/20 11/01/21 [facility], Pcp [address] [place] [address] PCP - General Internal Medicine 11/02/21 documented as of this encounter
--- OUTSIDE RECORDS SUMMARY | 2024-09-02 16:17 | XMS_ITS | Encounter Summary ---
Author Organization [facility] Address [address] [place] [address] Care Team Providers Care Quality Control Tester Name Role Phone Mara Mcelroy MD Primary Care Provider Diogo Peck MD Primary Care Provider [phone] [facility], Pcp Primary Care Provider [facility] saige Encounter Details Date Type Department Care Team Description 05/11/2020 Internet Marketing Assistant Report Medical Records [address] [place] [address] Social History Tobacco Use Types Packs/Day Years [...] on filedocumented in this encounter Care Teams Quality Control Tester Relationship Specialty Start Date End Date Mara Mcelroy MD PCP - General Internal Medicine 08/20/15 10/12/20 Diogo Wright MD [address] [place] [address] PCP - General Internal Medicine 10/13/20 11/01/21 [facility], Pcp [address] [place] [address] PCP - General Internal Medicine 11/02/21 documented as of this encounter
--- OUTSIDE RECORDS SUMMARY | 2024-09-02 16:17 | XMS_ITS | Encounter Summary ---
Author Organization [facility] Address [address] [place] [address] Care Team Providers Care Jar Filler Name Role Phone Mara Mcelroy MD Primary Care Provider Diogo Peck MD Primary Care Provider [phone] [facility], Pcp [facility] Reason for Visit * Reason Onset Date Comments REFERRAL 08/13/2018 Encounter Details Date Type Department Care Team Description 08/13/2018 Telephone Allergy - Feeding [address] [phone] Aracelis Garsia MD REFERRAL Social History Tobacco Use Types Packs/Day Years Used Date Smoking Tobacco: Every Day Cigarettes 0.8 26 Smokeless Tobacco: Never Alcohol Use Standard Drinks/Week Comments No 0 (1 standard drink = 0.6 oz pur e alcohol) Sex Assigned at Date Recorded Not on file documented as of this encounter Miscellaneous Notes * Telephone Encounter - Claire Pradhan - 08/13/2018 11:35 AM EST Made Multiple attempts to reach patient by phone and sent letter as well with no response- will remove patient from referral report. I will request a referral to allergy. Reason for referral: allergic rhinitis Priority: Routine - schedule for next available appointment; Priority - visit within 4-6 weeks; Urgent - visit within a week; Emergency - visit today or tomorrow. Not third-constitution party related documented in this encounter Plan of Treatment Not on file documented as of this encounter Visit Diagnoses Not on filedocumented in this encounter Care Teams Jar Filler Relationship Specialty Start Date End Date Mara Mcelroy MD PCP - General Internal Medicine 08/20/15 10/12/20 Diogo Wright MD [address] [place] [address] PCP - General Internal Medicine 10/13/20 11/01/21 [facility], Pcp [address] [place] [address] PCP - General Internal Medicine 11/02/21 documented as of this encounter
--- OUTSIDE RECORDS SUMMARY | 2024-09-02 16:17 | XMS_ITS | Encounter Summary ---
Author Organization [facility] Address [address] [place] [address] Care Team Providers Care Customer Support Specialist Name Role Phone Mara Mcelroy MD Primary Care Provider Diogo Peck MD Primary Care Provider [phone] [facility], Pcp [facility] Encounter Details Date Type Department Care Team Description 09/18/2020 Old Medical Records Medical Records [address] [place] [address] Abstract, Provider Social History Tobacco Use Types [...] on filedocumented in this encounter Care Teams Customer Support Specialist Relationship Specialty Start Date End Date Mara Mcelroy MD PCP - General Internal Medicine 08/20/15 10/12/20 Diogo Wright MD [address] [place] [address] [phone] PCP - General Internal Medicine 10/13/20 11/01/21 [facility], Pcp [address] [place] [address] PCP - General Internal Medicine 11/02/21 documented as of this encounter
--- OUTSIDE RECORDS SUMMARY | 2024-09-02 16:17 | XMS_ITS | Clinical Summary ---
Author Organization [facility] it Address [address] [place] [address] Care Team Providers Care Due Diligence Coordinator Name Role Phone Diogo Wright MD Primary Care Provider [phone] Allergies Active Allergy Reactions Criticality Noted Date [...] s/p repair Anxiety 12/11/2015 DX:Anxiety Emphysema, unspecified ([facility]) 01/06 DX:Emphysema, unspecified ([facility]); COMMENT: per patient Obesity DX:Obesity COPD (chronic obstructive pu lmonary disease) ([facility]) DX:COPD (chronic obstructive pulmonary disease) ([facility]) Tobacco abuse DX:Tobacco abuse Type 2 diabetes mellitus ([facility]) DX:Type 2 diabetes mellitus (HCC) Vitamin D deficiency DX:Vitamin D deficiency Anxiety DX:Anxiety Hyperlipidemia DX:Hyperlipidemi a Family History Medical History Relation Name Comments Breast cancer Aunt paternal ?age Suicide Attempts Brother x 1 Throat cancer Father (+smoker), CAN PATCHER D, HTN, liver transplant Heart failure Maternal [...] Results * Urine Albumin Creatinine Ratio (03/27/2020) [facility] Urine Albumin Creatinine Ratio abstracted Result [facility] Provider HEALTH MAINTENANCE Final Result * Annual BMP Blood Test (03/27/2020) [facility] Annual BMP Blood Test abstracted Result [facility] Provider HEALTH MAINTENANCE Final Result * (ABNORMAL) Hemoglobin A1c (03/27/2020) [facility] Hemoglobin A1C 7.2(A) <=6.5 % Blood Venous blood specimen / Unknown Result [facility] Provider LAB BLOOD ORDERABLES Celsa l Result * (ABNORMAL) Lipid panel (03/27/2020) [facility] LDL/HDL Ratio 9(A) 0 - 4 Triglycerides 388(A) 0 - 150 mg/dL Cholesterol 285(A) 0 - 200 mg/dL HDL 31(A) >=40 mg/dL LDL Cholesterol 177(A) 0 - 100 mg/dL Blood Venous blood specimen / Unknown Result [facility] Provider LAB BLOOD ORDERABLES Celsa l Result * HIV Screening (08/23/2018) [facility] HIV Screening abstracted Result [facility] Provider HEALTH MAINTENANCE Final Result * Hepatitis C Screening (08/23/2018) [facility] Hepatitis C Screening abstracted Result [facility] Provider HEALTH MAINTENANCE Final Result * Cervical Cancer Screening: HPV (02/09/2016) [facility] Cervical Cancer Screening: HPV negative, abstracted Result [facility] Provider HEALTH MAINTENANCE Final Result from Last 3 Months or Most Recently Relevant to Health Maintenance Care Teams Due Diligence Coordinator Relationship Specialty Start Date End Date Diogo Wright MD PCP - General Internal Medicine 03/12/21
--- OUTSIDE RECORDS SUMMARY | 2024-09-02 16:17 | XMS_ITS | Encounter Summary ---
Author Organization [facility] Address [address] [place] [address] Care Team Providers Care Large Sheetfed Press Operator Name Role Phone Mara Mcelroy MD Primary Care Provider Diogo Peck MD Primary Care Provider [phone] [facility], Pcp Primary Care [facility] Encounter Details Date Type Department Care Team Description 04/26/2016 Release of Information Medical Records [address] [place] [address] Abstract, Provider Social History Tobacco Use Types [...] on filedocumented in this encounter Care Teams Large Sheetfed Press Operator Relationship Specialty Start Date End Date Mara Mcelroy MD PCP - General Internal Medicine 08/20/15 10/12/20 Diogo Wright MD [address] [place] [address] [phone] PCP - General Internal Medicine 10/13/20 11/01/21 [facility], Pcp [address] [place] [address] PCP - General Internal Medicine 11/02/21 documented as of this encounter
--- OUTSIDE RECORDS SUMMARY | 2024-09-02 16:17 | XMS_ITS | Encounter Summary ---
Author Organization [facility] Address [address] [place] [address] Care Team Providers Care Hog Room Supervisor Name Role Phone Mara Mcelroy MD Primary Care Provider Diogo Peck MD Primary Care Provider [phone] [facility], Pcp Primary Care Provider [facility] Encounter Details Date Type Department Care Team Description 03/18/2020 Floor Worker Report Medical Records [address] [place] [address] [facility] [place] [facility] Social History Tobacco Use Types Packs/Day [...] on filedocumented in this encounter Care Teams Hog Room Supervisor Relationship Specialty Start Date End Date Mara Mcelroy MD PCP - General Internal Medicine 08/20/15 10/12/20 Diogo Wright MD [address] [place] [address] PCP - General Internal Medicine 10/13/20 11/01/21 [facility], Pcp [address] [place] [address] PCP - General Internal Medicine 11/02/21 documented as of this encounter
--- OUTSIDE RECORDS SUMMARY | 2024-09-02 16:17 | XMS_ITS | Encounter Summary ---
Author Organization [facility] Address [address] [place] [address] Care Team Providers Care Windows Support Engineer Name Role Phone Mara Mcelroy MD Primary Care Provider Diogo Peck MD Primary Care Provider [phone] [facility], Pcp Primary Care Provider [facility] Encounter Details Date Type Department Care Team Description 10/06/2015 Hospital Medical Records [address] [place] [address] Fredrick Stokes MD [address] [place] [address] [phone] Social History Tobacco Use Types Packs/Day Years [...] on filedocumented in this encounter Care Teams Windows Support Engineer Relationship Specialty Start Date End Date Mara Mcelroy MD PCP - General Internal Medicine 08/20/15 10/12/20 Diogo Wright MD [address] [place] [address] [phone] PCP - General Internal Medicine 10/13/20 11/01/21 [facility], Pcp [address] [place] [address] PCP - General Internal Medicine 11/02/21 documented as of this encounter
--- OUTSIDE RECORDS SUMMARY | 2024-09-02 16:17 | XMS_ITS | Encounter Summary ---
Author Organization [facility] Address [address] [place] [address] Care Team Providers Care Automatic Splicing Machine Operator Name Role Phone Mara Mcelroy MD Primary Care Provider Diogo Peck MD Primary Care Provider [phone] [facility], Pcp Primary Care Provider [facility] Encounter Details Date Type Department Care Team Description 09/15/2020 Sand Cutter Operator Report Medical Records [address] [place] [address] Helder Pablo MD Social History Tobacco Use [...] on filedocumented in this encounter Care Teams Automatic Splicing Machine Operator Relationship Specialty Start Date End Date Mara Mcelroy MD PCP - General Internal Medicine 08/20/15 10/12/20 Diogo Wright MD [address] [place] [address] [phone] PCP - General Internal Medicine 10/13/20 11/01/21 [facility], Pcp [address] [place] [address] PCP - General Internal Medicine 11/02/21 documented as of this encounter
--- OUTSIDE RECORDS SUMMARY | 2024-09-02 16:17 | XMS_ITS | Encounter Summary ---
Author Organization [facility] Address [address] [place] [address] Care Team Providers Care Yard Brakeman Name Role Phone Diogo Wright MD Primary Care Provider [phone] [facility], Pcp Primary Care Provider Unavailabl e Reason for Visit * Reason Onset Date Comments VNA Call 07/19/2021 Encounter Details Date Type Department Care Team Description 07/19/2021 Telephone Adult Medicine [facility] [address] [place] [address] [phone] Diogo Wright MD [address] [place] [address] [phone] VNA Call Social History Tobacco Use Types [...] VNA CALL Which VNA office is calling? [facility] Full name of caller: Meme The caller is A nurse Is the caller at the patients home?: NO Reason for call: Meme is calling as an FYI to let us know that the patient was admitted into [facility] on 07/16/21 and was discharged on [...] on filedocumented in this encounter Care Teams Yard Brakeman Relationship Specialty Start Date End Date Diogo Wright MD [address] [place] [address] PCP - General Internal Medicine 10/13/20 11/01/21 [place] [address] PCP - General Internal Medicine 11/02/21 documented as of this encounter
--- OUTSIDE RECORDS SUMMARY | 2024-09-02 16:17 | XMS_ITS | Encounter Summary ---
Author Organization [facility] Address [address] [place] [address] Care Team Providers Care Leave Coordinator Name Role Phone Mara Mcelroy MD Primary Care Provider Diogo Peck MD Primary Care Provider [phone] [facility], Pcp Primary Care Provider [facility] Reason for Referral * Non LEANDRO (Routine) - Authorized/Booked Specialty Diagnoses / Procedures Referred By Alfred t Referred To Contact General Surgery Procedures REFERRAL TO GENERAL SURGERY Maurice Johnson PA-C [address] [place] [address] Fredrick Stokes MD [address] [place] [address] Referral ID Status Reason Start Date Expiration Date V isits Requested Visits Authorized [id number] Authorized/B ooked 2015 08/25/2016 12 12 Encounter Details Date Type Department Care Team Description 2015 Orders Only Medicine/Pediatrics - [address] [address] Maurice Johnson PA-C Social History Tobacco Use [...] on filedocumented in this encounter Care Teams Leave Coordinator Relationship Specialty Start Date End Date Mara Mcelroy MD PCP - General Internal Medicine 08/20/15 10/12/20 Diogo Wright MD [address] [place] [address] PCP - General Internal Medicine 10/13/20 11/01/21 [facility], Pcp [address] [place] [address] PCP - General Internal Medicine 11/02/21 documented as of this encounter
--- OUTSIDE RECORDS SUMMARY | 2024-09-02 16:17 | XMS_ITS | Encounter Summary ---
Author Organization [facility] Address [address] [place] [address] Care Team Providers Care Medical Legal Investigator Name Role Phone Mara Mcelroy MD Primary Care Provider Diogo Peck MD Primary Care Provider [phone] [facility], Pcp [facility] Encounter Details Date Type Department Care Team Description 09/18/2020 Old Medical Records Medical Records [address] [place] [address] Abstract, Provider Social History Tobacco Use Types [...] on filedocumented in this encounter Care Teams Medical Legal Investigator Relationship Specialty Start Date End Date Mara Mcelroy MD PCP - General Internal Medicine 08/20/15 10/12/20 Diogo Wright MD [address] [place] [address] [phone] PCP - General Internal Medicine 10/13/20 11/01/21 [facility], Pcp [address] [place] [address] PCP - General Internal Medicine 11/02/21 documented as of this encounter
--- OUTSIDE RECORDS SUMMARY | 2024-09-02 16:17 | XMS_ITS | Encounter Summary ---
Author Organization [facility] Address [address] [place] [address] Care Team Providers Care Game Producer Name Role Phone Mara Mcelroy MD Primary Care Provider Diogo Peck MD Primary Care Provider [phone] [facility], Pcp Primary Care Provider [facility] Encounter Details Date Type Department Care Team Description 08/31/2018 Release of Information Medical Records [address] [place] [address] Abstract, Provider Social History Tobacco Use Types [...] on filedocumented in this encounter Care Teams Game Producer Relationship Specialty Start Date End Date Mara Mcelroy MD PCP - General Internal Medicine 08/20/15 10/12/20 Diogo Wright MD [address] [place] [address] PCP - General Internal Medicine 10/13/20 11/01/21 [facility], Pcp [address] [place] [address] PCP - General Internal Medicine 11/02/21 documented as of this encounter
--- OUTSIDE RECORDS SUMMARY | 2024-09-02 16:17 | XMS_ITS | Encounter Summary ---
Author Organization [facility] Address [address] [place] [address] Care Team Providers Care Social Welfare Clerk Name Role Phone Mara Mcelroy MD Primary Care Provider Diogo Peck MD Primary Care Provider [phone] [facility], Pcp [facility] Encounter Details Date Type Department Care Team Description 06/26/[address] [phone] Helder Segura MD Social History Tobacco Use [...] on filedocumented in this encounter Care Teams Social Welfare Clerk Relationship Specialty Start Date End Date Mara Mcelroy MD PCP - General Internal Medicine 08/20/15 10/12/20 Diogo Wright MD [address] [place] [address] PCP - General Internal Medicine 10/13/20 11/01/21 [facility], Pcp [address] [place] [address] PCP - General Internal Medicine 11/02/21 documented as of this encounter
--- OUTSIDE RECORDS SUMMARY | 2024-09-02 16:17 | XMS_ITS | Encounter Summary ---
Author Organization [facility] Address [address] [place] [address] Care Team Providers Care Lead Network Architect Name Role Phone Diogo Wright MD Primary Care Provider [phone] [facility], Pcp Primary Care Provider [facility] Encounter Details Date Type Department Care Team Description 04/14/2021 Hospital Medical Records [address] [place] [address] Darien Becker Social History Tobacco Use Types [...] on filedocumented in this encounter Care Teams Lead Network Architect Relationship Specialty Start Date End Date Diogo Wright MD [address] [place] [address] [phone] PCP - General Internal Medicine 10/13/20 11/01/21 [facility], Pcp [address] [place] [address] PCP - General Internal Medicine 11/02/21 documented as of this encounter
--- OUTSIDE RECORDS SUMMARY | 2024-09-02 16:17 | XMS_ITS | Encounter Summary ---
Author Organization [facility] Address [address] [place] [address] Care Team Providers Care Cinder Block Maker Name Role Phone Mara Mcelroy MD Primary Care Provider Diogo Peck MD Primary Care Provider [phone] [facility], Pcp Primary Care Provider Unavailabl e Reason for Visit * Reason Onset Date Comments Pre-visit Diabetes Lab Adult Medicine 05/22/2019 DM due 06/05/2019 at 845 Encounter Details Date Type Department Care Team Description 05/22/2019 Telephone Respiratory and Diabetes Medicaid/ACO Pharmacist [address] [place] [address] Mara Mcelroy MD Pre-visit Diabetes Lab Adult [...] ask that any orders entered by the [facility] Medicaid staff be associated with a diabetes diagnosis. You can use any diabetes diagnosis found on the problem list. Melinda Farmer Community Health Worker [facility] Plan [facility] [email or web address] [phone] F [phone] documented in this encounter Plan of Treatment Not on file documented as of this encounter Results * MICROALBUMIN/CREATININE, URINE (07/29/2019 4:27 PM EST) CREATININE, RANDOM URINE 148 mg/dL 07/29/2019 8:01 PM EST [facility] MICROALBUMIN, RANDOM 10.0 0.0 - 29.0 mg/L 07/29/2019 8:08 PM EST [facility] MICROALB/CRE RATIO RANDOM 6.7 0.0 - 30.0 mg/G 07/29/2019 8:08 PM EST [facility] 07/29/2019 4:27 PM EST 07/29/2019 4:27 PM EST Mara Mcelroy MD LAB [facility] * (ABNORMAL) LIPID PROFILE (07/29/2019 4:14 PM [...] Mara Mcelroy MD LAB Performing Organization Address City/[facility]/ZIP Co de Phone Number [facility] * [...] EST [facility] Comment: If patient is -Filipino, multiply result by 1.21 Chronic Kidney Disease: [...] Mara Mcelroy MD LAB Performing Organization Address City/[facility]/ZIP Co de Phone Number [facility] [employer] * (ABNORMAL) HEMOGLOBIN A1C (07/29/2019 4:14 PM EST) GLYCATED HEMOGLOBIN A1C 6.7(H) <6.5 % 07/30/2019 10:22 AM EST [facility] ESTIMATED AVERAGE GLUCOSE 146 mg/dL 07/30/2019 10:22 AM EST [facility] 07/29/2019 4:14 PM EST 07/29/2019 4:14 PM EST Mara Mcelroy MD LAB [facility] documented in this encounter Visit Diagnoses Diagnosis Type 2 diabetes mellitus without complication, with long-term current use of insulin (HCC)- Primary documented in this encounter Care Teams Cinder Block Maker Relationship Specialty Start Date End Date Mara Mcelroy MD PCP - General Internal Medicine 08/20/15 10/12/20 Diogo Wright MD [address] [place] [address] PCP - General Internal Medicine 10/13/20 11/01/21 [place] [address] PCP - General Internal Medicine 11/02/21 documented as of this encounter
--- OUTSIDE RECORDS SUMMARY | 2024-09-02 16:17 | XMS_ITS | Clinical Summary ---
Author Organization [facility] Address [address] [place] [address] Care Team Providers Care Global Commodity Manager Name Role Phone Diogo Wright MD Primary Care Provider [phone] Allergies Active Allergy Reactions Criticality Noted Date [...] age to complete this topic Care Teams Global Commodity Manager Relationship Specialty Start Date End Date Diogo Wright MD PCP - General Internal Medicine 03/12/21
--- OUTSIDE RECORDS SUMMARY | 2024-09-02 16:17 | XMS_ITS | Encounter Summary ---
Author Organization [facility] Address [address] [place] [address] Care Team Providers Care Benefits Specialist Name Role Phone Mara Mcelroy MD Primary Care Provider Diogo Peck MD Primary Care Provider [phone] [facility], Pcp Primary Care Provider [facility] Reason for Visit * Reason Onset Date Comments Care Management 03/31/2020 care management Encounter Details Date Type Department Care Team Description 03/31/2020 Telephone Adult Medicine [address] [id number] Arlin Hoover PA-C [address] [place] [id number] Care Management (care management) Social History Tobacco Use Types Packs/Day Years [...] PM EDT documented as of this encounter Miscellaneous Notes * Telephone Encounter - Arlin Hoover PA-C - 04/01/2020 9:10 AM EDT Thank you. Arlin Hoover PA-C * Telephone Encounter - Maria Teresa Talley - 03/31/2020 3:34 PM EDT Good Afternoon, Mckenzie has completed the following POC and has graduated from [facility] (currently not eligible for CCM): facilitated PCP f/u appointments, transportation (PT1), medication delivery, housing application assistance, asthma and diabetes education and S assistance The patient is currently working with a Behavioral Health Community Partner from [facility] ([facility]) Pilar [phone]. This nurse has spoken with Pilar and advised of the positive screening; food insecurity (currently receives Individual Digital benefits), transportation (Pilar has provided information to Mckenzie r/t Marts/PT1) and financial issues; and will reach out to Mckenzie. Please note that the patient will frequently go months with out returning care team attempts to engage via t/c and or t/m. If you have further questions I can be reached at [phone]. Thank you, Maria Teresa MELGARN, RN, [facility] Complex Airworthiness Safety Inspector [facility] ACO [phone] cell * Telephone Encounter - Ese Khan R.N. - 03/31/2020 2:45 PM EDT RORY Morel I received a provider referral for this patient. Pt screened positive for food insecurity, transportation, and financial issues. Pt appears to have already graduated CCM with you and enrolled with [facility] so I wanted to forward this to you so you were aware and could notify [facility] of screening and then provider of outcome. Thanks! Ese * Telephone Encounter - Karol Kennedy - 03/31/2020 7:34 AM EDT Received a referral for care management on this patient. Please review if patient qualify's, if notplease notify provider. documented in this encounter Plan of Treatment Not on file documented as of this encounter Visit Diagnoses Not on filedocumented in this encounter Care Teams Benefits Specialist Relationship Specialty Start Date End Date Mara Mcelroy MD PCP - General Internal Medicine 08/20/15 10/12/20 Diogo Wright MD [address] [place] [address] PCP - General Internal Medicine 10/13/20 11/01/21 [facility], [place] [address] PCP - General Internal Medicine 11/02/21 documented as of this encounter
--- OUTSIDE RECORDS SUMMARY | 2024-09-02 16:17 | XMS_ITS | Encounter Summary ---
Author Organization [facility] Address [address] [place] [address] Care Team Providers Care Office Associate Name Role Phone Mara Mcelroy MD Primary Care Provider Diogo Peck MD Primary Care Provider [phone] [facility], Pcp [facility] Encounter Details Date Type Department Care Team Description 01/10/2019 [facility] Medical Records [address] [place] [id number] Abstract, Provider Social History Tobacco Use Types [...] on filedocumented in this encounter Care Teams Office Associate Relationship Specialty Start Date End Date Mara Mcelroy MD PCP - General Internal Medicine 08/20/15 10/12/20 Diogo Wright MD [address] [place] [address] PCP - General Internal Medicine 10/13/20 11/01/21 [facility], Pcp [address] [place] [address] PCP - General Internal Medicine 11/02/21 documented as of this encounter
--- OUTSIDE RECORDS SUMMARY | 2024-09-02 16:17 | XMS_ITS | Clinical Summary ---
Author Organization [facility] Address [address] [place] [address] 7 [place] [address] Care Team Providers Care Loan Examiner Name Role Phone Unavailable Primary Care Provider [...] Sodium Fluoride 1.1 % creamIndication s:Dental caries [place] teeth for 2 minutes, morning and night. [...] Description 08/02/2024 8:30 AM EST Office Visit [facility] [address] [place] [address] Nirmal Odell DMD Dental caries (Primary Dx) 07/26/2024 8:00 AM EST Office Visit [facility] [address] [place] [address] Nirmal Odell DMD Periodontal disease (Primary Dx); Dental caries 07/25/2024 2:00 PM EST Office Visit [facility] [address] [place] [address] Mireya Cole Dental calculus (Primary Dx); Dental [...] Description 09/03/2024 10:00 AM EST Office Visit [facility] [address] [place] [address] Nirmal Odell DMD [address] [place] [address] Health Maintenance Due Date Last Done Comments [...] AM EST from Last 3 Months Insurance [facility] MEDICAID STAND [place] [phone]
--- OUTSIDE RECORDS SUMMARY | 2024-09-02 16:17 | XMS_ITS | Encounter Summary ---
Author Organization [facility] Address [address] [place] [address] Care Team Providers Care Tuckpointer Name Role Phone Mara Mcelroy MD Primary Care Provider Diogo Peck MD Primary Care Provider [phone] [facility], Pcp Primary Care Provider [facility] saige Encounter Details Date Type Department Care Team Description 10/04/2019 Director Commercial Sales Report Medical Records [address] [place] [phone] [facility] Social History Tobacco Use Types Packs/Day [...] on filedocumented in this encounter Care Teams Tuckpointer Relationship Specialty Start Date End Date Mara Mcelroy MD PCP - General Internal Medicine 08/20/15 10/12/20 Diogo Wright MD [address] [place] [address] PCP - General Internal Medicine 10/13/20 11/01/21 [facility], Pcp [address] [place] [address] PCP - General Internal Medicine 11/02/21 documented as of this encounter
--- OUTSIDE RECORDS SUMMARY | 2024-09-02 16:17 | XMS_ITS | Encounter Summary ---
Author Organization [facility] Address [address] [place] [address] Care Team Providers Care Adjunct Faculty For Medical Terminology Name Role Phone Mara Mcelroy MD Primary Care Provider Diogo Peck MD Primary Care Provider [phone] [facility], Pcp Primary [facility] Encounter Details Date Type Department Care Team Description 06/29/2018 Orders Only Medical Records [address] [place] [phone] Rick Sanchez MD [address] [place] [phone] Social History Tobacco Use Types Packs/Day [...] on filedocumented in this encounter Care Teams Adjunct Faculty For Medical Terminology Relationship Specialty Start Date End Date Mara Mcelroy MD PCP - General Internal Medicine 08/20/15 10/12/20 Diogo Wright MD [address] [place] [address] PCP - General Internal Medicine 10/13/20 11/01/21 [facility], Pcp [address] [place] [address] PCP - General Internal Medicine 11/02/21 documented as of this encounter
--- OUTSIDE RECORDS SUMMARY | 2024-09-02 16:18 | XMS_ITS | Clinical Summary ---
Author Organization [facility] Address [address] [place] [address] Care Team Providers Care Security Control Center Operator Name Role Phone Community, Pcp Primary Care Provider Unavailabl e Allergies Active Allergy Reactions Severity Noted Date Comments Latex Hives/Urticaria 08/21/2015 Medications Medication Sig Dispensed Refills Start Date End Date Status ALBUTEROL SULFATE (PROAIR HFA) 108 (90 BASE) MCG/ACT Aero Soln Inhale 2 Puffs into the lungs every 4 hours as needed for Cough, Wheezing or Shortness of Breath. 1 Inhaler 0 04/26/2018 Active Fluticasone-Salmete rol (AIRDUO RESPICLICK 113/14) 113-14 MCG/ACT AEROSOL POWDER,BREATH ACTIVATED Inhale 1 Puff into the lungs 2 times daily. 1 Each 5 12/14/2018 Active FREESTYLE LANCETS MiscIndications:Typ e 2 diabetes mellitus without complication, with long-term current use of insulin (HCC) 1 Device by Does not apply route 4 times daily. 600 Each 5 12/14/2018 Active Insulin Lispro (ADMELOG SOLOSTAR) 100 UNIT/ML Solution Pen-injector Inject 6 Units into the skin 3 times daily (before meals). 6 mL 2 05/09/2019 Active Glucose Blood (FREESTYLE LITE) Strip USE TO TEST BLOOD SUGAR 4 TIMES A DAY 200 Strip 2 07/29/2019 Active Insulin Pen Needle (PEN NEEDLES) 32G X 6 MM Misc 1 Each by Does not apply route 4 times daily. 200 Each 3 03/13/2020 Active Insulin Glargine (BASAGLAR KWIKPEN) 100 UNIT/ML Solution Pen-injector Inject 50 Units into the skin at bedtime. 0 03/27/2020 Active atorvastatin (LIPITOR) 10 MG tablet Take 1 Tab by mouth daily. 0 03/27/2020 Active vitamin D (ERGOCALCIFEROL) 87703 units capsule Take 1 capsule by mouth once a week for 8 doses. 8 capsule 0 04/06/2020 Active methocarbamol (ROBAXIN) 500 MG tablet Take 1 Tab by mouth 4 times daily for 10 days. 40 Tab 0 04/15/2020 Active TRULICITY 0.75 MG/0.5ML Solution Pen-injector Inject 0.75 mg into the skin daily. 0 06/17/2020 Active lisinopril (PRINIVIL,ZESTRIL) 2.5 MG tablet 0 06/17/2020 Active Cholecalciferol (VITAMIN D) 50 MCG (1999 UT) Tab Take 1 Tab by mouth daily. 90 Tab 3 07/02/2020 Active fexofenadine (CLAIRE ALLERGY) 180 MG tabletIndications:A sthma-COPD overlap syndrome (HCC),Moderate persistent asthma without complication,Tobacc o use disorder,Pulmonary nodules,Mediastinal lymphadenopathy,Chr onic obstructive pulmonary disease, unspecified COPD type (HCC),Acute bronchitis, unspecified organism Take 1 Tab by mouth daily. 30 Tab 12 07/08/2020 Active predniSONE (DELTASONE) 10 MG tabletIndications:A sthma-COPD overlap syndrome (HCC),Moderate persistent asthma without complication,Tobacc o use disorder,Pulmonary nodules,Mediastinal lymphadenopathy,Chr onic obstructive pulmonary disease, unspecified COPD type (HCC),Acute bronchitis, unspecified organism Take 1 Tab by mouth daily. 10 Tab 0 07/08/2020 Active predniSONE 5 MG (21) Tablet Therapy PackIndications:Acu te bronchitis, unspecified organism,Asthma-FIELD MANAGER D overlap syndrome (HCC),Moderate persistent asthma without complication,Tobacc o use disorder,Pulmonary nodules,Mediastinal lymphadenopathy,Chr onic obstructive pulmonary disease, unspecified COPD type (HCC) Take 5 mg by mouth daily. 1 tablets daily for 3 weeks 21 Each 0 08/13/2020 Active fluticasone-salmete rol (ADVAIR DISKUS) 500-50 MCG/DOSE diskus inhalerIndications: Acute bronchitis, unspecified organism,Asthma-FIELD MANAGER D overlap syndrome (HCC),Moderate persistent asthma without complication,Tobacc o use disorder,Pulmonary nodules,Mediastinal lymphadenopathy,Chr onic obstructive pulmonary disease, unspecified COPD type (HCC) Inhale 1 Puff into the lungs every 12 hours for 90 days. This medication has inhaler steroid: Rinse mouth with water and expectorate after each dose to prevent oral/esophageal candidiasis or fungal infection. 1 Inhaler 5 08/13/2020 Active montelukast (SINGULAIR) 10 MG tabletIndications:A cute bronchitis, unspecified organism,Asthma-FIELD MANAGER D overlap syndrome (HCC),Moderate persistent asthma without complication,Tobacc o use disorder,Pulmonary nodules,Mediastinal lymphadenopathy,Chr onic obstructive pulmonary disease, unspecified COPD type (HCC) Take 1 Tab by mouth at bedtime for 90 days. 90 Tab 4 08/13/2020 Active fluticasone-salmete rol (ADVAIR DISKUS) 250-50 MCG/DOSE diskus inhaler Inhale 1 Puff into the lungs every 12 hours for 90 days. This medication has inhaler steroid: Rinse mouth with water and expectorate after each dose to prevent oral/esophageal candidiasis or fungal infection. 1 Inhaler 5 09/14/2020 Active hydrOXYzine (ATARAX) 10 MG tablet Take 1 tablet by mouth every 8 hours as needed for Anxiety for up to 360 days. 30 tablet 0 12/16/2020 Active Active Problems Problem Noted Date Hirsutism 03/27/2020 Incisional hernia 12/19/2019 Fatty liver 12/11/2019 Asthma-COPD overlap syndrome 01/23/2019 Mediastinal lymphadenopathy 01/23/2019 Pulmonary nodules 01/23/2019 Hidradenitis 12/14/2018 Obesity (BMI 30-39.9) 08/01/2018 Snoring 06/29/2018 Overview: 05/2018 Home Sleep Study did not reveal sleep apnea. Type 2 diabetes mellitus 04/26/2018 Vitamin D deficiency 04/26/2018 Anxiety 12/11/2015 Umbilical hernia 09/29/2015 Overview: s/p repair PTSD (post-traumatic stress disorder) Tobacco use disorder 08/21/2015 Hyperlipidemia Resolved Problems Problem Noted Date Resolved Date Chronic obstructive pulmonary disease 05/18/2018 03/27/2020 Abnormal PFT 04/26/2018 12/11/[address] 04/26/2018 03/27/2020 Overview: Hospitalization 04/2018. History of abnormal pfts Emphysema, unspecified 12/23/2015 0 Overview: per patient Asthma 12/11/2015 03/27/2020 Umbilical hernia 09/29/2015 12/11/2015 Obesity 03/27/2020 COPD (chronic obstructive pulmonary disease) 03/27/2020 Tobacco abuse 03/27/2020 Immunizations Name Administration Dates Next Due Tdap 12/11/2015 Family History Medical History Relation Name Comments Cancer of the Breast Aunt paternal ?age Suicide Brother x 1 Throat Cancer Father (+smoker), FIELD MANAGER D, HTN, liver transplant CHF Maternal Grandfather Diabetes Maternal Grandmother amputat ions Diabetes Mother schizophrenia, bipolar, lupus No Known Problems Paternal Grandfather Thyroid Disorder Paternal Grandmother ?ty pe Cancer, Other Sister x 3 Uterine or ova yudith?; schizophrenia cerebral palsy Son Relation Name Status Comments Aunt paternal Alive Brother x 1 Father Maternal Grandfather Maternal Grandmother Alive Mother Alive Paternal Grandfather Paternal Grandmother Sister x 3 Alive Son Social History Tobacco Use Types Packs/Day Years Used Date Smoking Tobacco: Every Day Cigarettes Smokeless Tobacco: Never Tobacco Cessation:Ready to Q uit: Yes; Counseling Given: Yes Comments:started age 15; max 1PPD Alcohol Use Standard Drinks/Week Comments No 0 (1 standard drink = 0.6 oz pur e alcohol) Education Answer Date Recorded What is the highest level of school you have completed or the highest degree you have received? 8th grade 03/27/2020 Sex Assigned at Date Recorded Not on file Last Filed Vital Signs Vital Sign Reading Time Taken Comments Blood Pressure 126/84 04/15/2020 4:28 PM EDT Pulse 100 04/15/2020 4:28 PM EDT Temperature 36.3 ??C (97.3 ??F) 04/15/2020 4:28 PM ED T Respiratory Rate 14 04/15/2020 4:28 PM EDT Oxygen Saturation 98% 12/03/2019 12:58 PM EDT Inhaled Oxygen Concentration - - Weight 98.9 kg (218 lb) 04/15/2020 4:28 PM EDT Height 165.1 cm (5' 5 ) 04/15/2020 4:28 PM EDT Body Mass Index 36.28 04/15/2020 4:28 PM EDT Plan of Treatment Health Maintenance Due Date Last Done Comments Covid-19 Vaccine (#1) 02/23/1977 DIABETES: ANNUAL FOOT EXAM 1994 PNEUMOCOCCAL VACCINE FOR HIG H RISK PATIENTS (#1) 1995 MAMMOGRAM 2016 CERVICAL CANCER SCREENING 02/08/2019 02/09/2016 DIABETES: BLOOD SUGAR CONTRO L TEST (HGBA1C) 06/26/2020 03/27/2020, 07/29/2019, 10/29/2018, Additional history exists DIABETES/HEART DISEASE: PJ AL CHOLESTEROL (LDL) 03/27/2021 03/27/2020, 07/29/2019, 10/29/2018, Additional history exists DIABETES: ANNUAL URINE PROTE IN TEST (MICROALBUMIN) 03/27/2021 03/27/2020, 07/29/2019 BASELINE HEALTH EXAM 40-64 03/27/202203/27, 03/27/2020, 02/09/2016, Additional history exists TOBACCO CHECK/ADVISE 04/02/2022 04/02/2020, 05/18/20 18 DIABETES: ANNUAL EYE EXAM 06/09/20222020, 06/09/2021 (External Completion) INFLUENZA (#1) 2024 BMI CHECK/ADVISE 07/24/2024 06/29/2020, 10/2019, 03/24/2020, Additional history exists DEPRESSION SCREENING/FOLLOWUP 07/24/2024, 03/09/2020, 07/29/2019, Additional history exists SOCIAL NEEDS SCREENING 07/24/2024 03/09/2020 DTAP/TDAP/TD (2 - Td or Tdap) 12/10/2025 12/11/2015 Care Teams Security Control Center Operator Relationship Specialty Start Date End Date Community, Pcp PCP - General Internal Medicine 11/02/21
--- OUTSIDE RECORDS SUMMARY | 2024-09-02 16:18 | XMS_ITS | Encounter Summary ---
Author Organization [facility] Address [address] [place] [address] Care Team Providers Care Lactation Consultant Name Role Phone Mara Mcelroy MD Primary Care Provider Diogo Peck MD Primary Care Provider [phone] [facility], Pcp Primary Care Provider [facility] saige Encounter Details Date Type Department Care Team Description 04/05/2019 Old Medical Records Medical Records [address] [place] [address] Abstract, Provider Social History Tobacco Use Types [...] on filedocumented in this encounter Care Teams Lactation Consultant Relationship Specialty Start Date End Date Mara Mcelroy MD PCP - General Internal Medicine 08/20/15 10/12/20 Diogo Wright MD [address] [place] [address] PCP - General Internal Medicine 10/13/20 11/01/21 [facility], Pcp [address] [place] [address] PCP - General Internal Medicine 11/02/21 documented as of this encounter
[2024-09-02 16:28] LABS: Estimated Average Glucose 223 mg/dL; Hemoglobin A1C 270.7926 umol/L; Hemoglobin A1c % 9.4 % (<6.0); Total Hemoglobin (HGBA1C) 3409.4803 umol/L
[2024-09-02 16:36] LABS: Appearance Urine Cloudy; Color Urine Orange; Glucose Urine UA >=1000 mg/dL (Negative); Leukocyte Esterase Urine Negative (Negative); Nitrite Urine Negative (Negative); PH 5.5 (5.0-9.0); Specific Gravity - Urine 1.025 (1.005-1.025); UMIC TRIGGER UACC YES; Urine Blood Large (3+) (Negative); Urine Ketones Negative (Negative); Urine Protein 30 (1+) mg/dL (Neg-Trace)
[2024-09-02 16:47] LABS: Bacteria Urine Trace (None Seen); Hyaline Casts Urine 0-2 /LPF (0-2); RBC Urine >20 /HPF (0-2); UACC Culture Trigger YES
[2024-09-02 16:55] LABS: Creatinine Urine 85.42 mg/dL; Microalbum/Creatinine Ratio Ur 42.1 ug/mg cr (<30)
[2024-09-02 17:08] LABS: HCG Quantitative < 2 mIU/mL; TSH reflex Free T4 0.49 uIU/mL (0.32-4.0); Vitamin D 25-OH Total 12.4 ng/mL (>30)
[2024-09-02 17:10] LABS: Alanine Aminotransferase 30 U/L (0-31); Albumin Level 3.7 g/dL (3.5-5.0); Alkaline Phosphatase 109 U/L (39-117); Anion Gap 13 (12-20); Aspartate Amino Transferase 43 U/L (5-31); Bilirubin Direct 0.1 mg/dL (0.0-0.5); Bilirubin Total 0.6 mg/dL (0.0-1.0); Blood Urea Nitrogen 7 mg/dL (9-16); Calcium 8.5 mg/dL (8.4-10.2); Carbon Dioxide 21 mmol/L (22-29); Chloride 104 mmol/L (96-108); Cholesterol 231 mg/dL (<200); Estimated Glomerular Filt Rate > 60; HDL Cholesterol 30 mg/dL (>40); Potassium 3.8 mmol/L (3.3-5.1); Sodium 134 mmol/L (135-145); Total Protein 7.9 g/dL (6.5-8.0); Triglycerides 565 mg/dL (<150)
[2024-09-02 17:21] LABS: Vitamin B12 230 pg/mL (200-900)
[2024-09-02 17:22] LABS: Folate 7.8 ng/mL (> or = 4.0)
[2024-09-02 19:57] LABS: Glucose Random 451 mg/dL (60-115)
[2024-09-03 16:38] LABS: Follicle Stimulating Hormone 15.4 mIU/mL; Lutenizing Hormone 5.8 mIU/mL
[2024-09-04 04:16] LABS: CT PCR NOT DETECTED (Not Detect.); NG PCR NOT DETECTED (Not Detect.)
== END 2024-09-02 14:09 | disposition home or self-care (01) ==
LOC: HO.LAB 14:08
PROVIDERS: Internal Medicine; Nurse Practitioner Family; PCP Physician Assistant; Visit Provider Obstetrics & Gynecology
DX: E78.1 Pure hyperglyceridemia (principal); E11.65 Type 2 diabetes mellitus with hyperglycemia; R79.89 Other specified abnormal findings of blood chemistry; E78.5 Hyperlipidemia, unspecified; E66.01 Morbid (severe) obesity due to excess calories; Z68.43 Body mass index [BMI] 50.0-59.9, adult; H81.13 Benign paroxysmal vertigo, bilateral; R00.2 Palpitations; K21.9 Gastro-esophageal reflux disease without esophagitis; F41.1 Generalized anxiety disorder; Z79.4 Long term (current) use of insulin; E55.9 Vitamin D deficiency, unspecified; R53.83 Other fatigue; N93.9 Abnormal uterine and vaginal bleeding, unspecified
CPT/HCPCS: 36415; 80053; 80061; 80076; 81001; 82043; 82248; 82306; 82570; 82607; 82746; 83001; 83002; 83036; 84443; 84702; 85025; 85027; 87086; 87491; 87591; 99212; 99396; 99459

== ENCOUNTER 2024-09-05 08:45 | Outpatient (AMB) | payer OTHER, SELFPAY ==
--- NOTE | 2024-09-05 08:56 | A.OFFVIS_ITS ---
Vital Signs 09/05/24 08:59 Height 5 ft 5 in Weight 213 lb 13.574 oz BMI 35.6 BP 150/90 H Blood Pressure Location Rt brachial Position Sitting Pulse 96 Pulse Source Pulse Oximeter Intake Visit Reasons: DM Intake Note: Patient presents here today to for a follow-up on DM TYPE 2. Last Diabetic eye exam was on: 11/2023 Last Podiatry exam was on: Does not see a Supervisor Claims Most recent HbA1c: 9.5%, 08/08/2024 Random Glucose- 385 mg/dL, Today Composite Assembler Required: No Accompanied by: Self / Same As Patient Allergies latex [LATEX] Allergy (Mild, Verified 09/05/24 08:56) RASH Iodinated Contrast Media [IV Contrast Dye] Allergy (Verified 09/05/24 08:56) Anaphylaxis amoxicillin Adverse Reaction (Unknown, Verified 09/05/24 08:56) vaginal infection dulaglutide [From Trulicity] Adverse Reaction (Unknown, Verified 09/05/24 08:56) vomitting, nausea semaglutide [From Ozempic] Adverse Reaction (Unknown, Verified 09/05/24 08:56) Chest pain, vomitting Medication List - Last Reconciled 09/05/24 by Mara Segura MD abdominal binder As directed albuterol sulfate 2.5 mg (3 mL) inhalation Q6H PRN 30 days albuterol sulfate 90 mcg/actuation 1 inh inhalation QID PRN 30 days albuterol sulfate 90 mcg/actuation (Ventolin HFA) 2 puffs inhalation Q4-6H PRN atorvastatin 40 mg PO BEDTIME benzonatate 200 mg PO TID PRN blood sugar diagnostic (FreeStyle Test strips) testing 3x daily blood-glucose meter (FreeStyle Lite Meter kit) As directed cholecalciferol (vitamin D3) 25 mcg PO DAILY 90 days epinephrine (EpiPen 2-Josué) 0.3 mg (0.3 mL) IM ONCE PRN flash glucose scanning reader (FreeStyle Tiff 2 [place]) 1 ea miscellaneous DIRECTED flash glucose sensor (FreeStyle Tiff 2 Sensor kit) DIRECTED EVERY 2 WEEKS fluticasone propion-salmeterol 250-50 mcg/dose (Advair Diskus) 1 ea inhalation BID 30 days FreeStyle Precision Haresh Strips (blood sugar diagnostic) As needed up to four times daily NS glucose 4 grams PO Q15M PRN insulin glargine (Lantus Solostar U-100 Insulin) 20 units (0.2 mL) subcut BEDTIME insulin lispro 20 - 30 units subcut TID meclizine 25 mg PO DAILY nitroglycerin 0.4 mg sublingual Q5M PRN 15 days ondansetron HCl 8 mg PO Q12H 15 days oxycodone 10 mg PO Q8H PRN 7 days Ozempic (semaglutide) 2 mg (0.75 mL) subcut QWEEK NS pen needle, diabetic (BD Ultra-Fine Macy Pen Needle) USE DIRECTED 4 TIMES DAILY pioglitazone 15 mg (1/2 x 30 mg) PO DAILY HPI Comments Details: Patient is a 48-year-old female with DM type 2 diagnosed who presents for management of diabetes. Past medical history: DM2, HTN, Hirsutism, dyslipidemia, vitamin d deficiency. Micro and macrovascular complications: Nephropathy Patient has multiple medical problems and biggest issue is frequent medication compliance. She gets overwhelmed by problems and multiple medications Diabetes medications: stopped ozempic 2mg weekly, she was prescribed lantus 80 units daily and 15-20 humalog with meals-at her last visit since she non compliant she was urged to take just 20 units lantus daily for insulin, actos 30mg daily. She is taking actos 30mg daily. She was not taking her lantus but she has starting after having a blood sugar in the 400s a few days ago. Has not been taking any medications. Her incisional hernia has been very painful. Previous: Had dizziness with Trulicity. Intolerant of mounjaro. stopped ozempic Checking blood glucose once daily range 160-436. Average 272 for the past 2 weeks. CGM, Freestyle Tiff. Has not been using. Last A1C 9.2%. Symptoms reported: numbness, tingling, cramping in lower extremities Hypoglycemia: No. drinks orange juice which brings it up but doesnt sustain long enough Hyperglycemia: denies urinary frequency, denies excessive thirst Optho: says utd Does not see podiatry ROS see HPI PHYSICAL EXAM: GENERAL: Alert and oriented x 3. NAD EYES: EOMI. Anicteric. HENT: Moist mucous membranes. No scleral icterus. No cervical lymphadenopathy. LUNGS: Clear to auscultation bilaterally. CARDIOVASCULAR: Regular rate and rhythm. No murmur. No JVD. ABDOMEN: Soft, +hernia EXTREMITIES: No edema. Non-tender. SKIN: No rashes or lesions. Warm. NEUROLOGIC: No focal neurological deficits. CN II-XII grossly intact PSYCHIATRIC: Cooperative. Appropriate mood and affect [facility] Medical History Itching Obesity (BMI 30-39.9) Sepsis Diverticulitis of both large and small intestine with perforation and abscess Diverticulitis of large intestine with abscess Morbid obesity with BMI of 50.0-59.9, adult Hypertension Vitamin D deficiency B12 deficiency Diabetic nephropathy associated with type 2 diabetes mellitus Dyslipidemia Hirsutism Diabetes type 2, uncontrolled Surgical History Hx of abdominal surgery Hx of umbilical hernia repair History of ankle surgery Hx of section Family History Father Throat cancer Cirrhosis Mother Diabetes Social History Household Members: None Housing: House Do you presently have visiting nurse or other home services: Yes Alcohol intake: former Patient Tobacco Use Status: Current everyday Tobacco user Tobacco use type: Cigarette Cigarette Packs Per Day: 0.5 Cigarettes Per Day: 5 Years Smoked: 30 e-Cigarette/Vaping Use: Never Used Second Hand Smoke Exposure: Yes Substance Use Type: Marijuana Advance Directives Date on File: 05/05/21 service: No Current occupational status: disabled Cognitive needs: No Hearing needs: No Vision needs: Yes Physical Exam Vital Signs: BMI result Body Mass Index 35.6 Assessment & Plan Assessment & Plan (1) Diabetic nephropathy associated with type 2 diabetes mellitus: Code(s): E11.21 - Type 2 diabetes mellitus with diabetic nephropathy Category: Medical Plan: Uncontrolled in setting of medication noncompliance Overwhelmed by medical issues, regimen. Urged to take 100% of lantus 20 unit daily dosing and actos. Then we can properly titrate medication (2) Non compliance w medication regimen: Code(s): Z91.148 - Patient's other noncompliance with medication regimen for other reason Plan see above. Has not been taking her BP medication. Last on her list was amlodipine. BP is running high. Resent Medications: New amlodipine 5 mg PO DAILY 90 tabs 3RF Coding Level of Care Code Est Pt Level 4 (56719) Diagnoses Diabetic nephropathy associated with type 2 diabetes mellitus E11.21 Non compliance w medication regimen Z91.148
--- OUTSIDE RECORDS SUMMARY | 2024-09-05 08:58 | XMS_ITS | Clinical Summary ---
Author Organization [facility] Address [address] [place] [address] Care Team Providers Care Piano Sounding Board Matcher Name Role Phone Diogo Wright MD Primary Care Provider [phone] Allergies Active Allergy Reactions Criticality Noted Date [...] age to complete this topic Care Teams Piano Sounding Board Matcher Relationship Specialty Start Date End Date Diogo Wright MD PCP - General Internal Medicine 03/12/21
--- OUTSIDE RECORDS SUMMARY | 2024-09-05 08:58 | XMS_ITS | Data Portability ---
Author Organization [place] - [facility], Allergy Address [address] [place] [address] Assessment Encounter Date Assessment Date Assessment LastModified [...] disequilibrium is coming from an otologic source. [email or web address] Not available 12/29/2023 16:52:35 Plan of Treatment Reminders Order Date Submit Date Provider Last Modified By Organization Details Last Modified Time Details Appointments None recorded. Lab None recorded. Referral neurologist referral 2023 024 2 [facility] Neurology Scheduling, [address] [place], [address], 4 10:41:05 Procedures None recorded. Surgeries None [...] Organization Details Recorded Time Abnormal auditory perception 37757651 Active 2023 Savannah chicas [place] - [facility] 16:32:03 Migraine without aura 35990354 Active 2023 JUNIE RICH PA-C [address] [place] [address],[address], [address], [facility] 4 16:52:39 Dizziness and giddiness 558154798 Active 2023 JUNIE RICH PA-C [address] [place] [address],[address], [address], [facility] 4 16:52:43 Bilateral earache 282546486 Active 2023 JUNIE RICH PA-C [address] [place] [address],[address], [address], [facility] 4 16:52:54 Bilateral temporomand ibular joint pain 0951791695700 9105 Active 2023 JUNIE RICH PA-C [address] [place] [address], [address] [place] [address], [address], [facility] 4 16:53:00 Problem Notes None recorded. Procedures Surgical History Date Name Laterality Status Provider Name and Address Organization Details Recorded Time Comp Audio with Tymps (00158 & 70699) completed Savannah Goldsmith [place] - [facility] 12/29/2023 16:30:31 Cerumen removal without microscope left completed JUNIE RICH PA-C [address] [place] [address],[place] [address], [place], [address], [facility] - [facility] 12/29/2023 14:56:07 Imaging Results Imaging Date [...] Note 3283 JUNIE RICH PA-C [facility]NTS of [address] [address] 12/29/2023 13:49:33 12/29/2023 16:39:20 Abnormal auditory perception 92852767 H93.299 Audiologic al evaluation results: Right ear: [...] a hermetic seal}} Migraine without aura 56 352807 G43.009 Dizziness and giddiness 138657697 R42 Bilateral earache 454904 003 H92.03 Bilateral temporomandibular joint pain [id number] 0511872 M26.623 Health Concerns Section Related Observation LastModified by Organization Detai ls LastModified Time None Recorded Concern Status LastModified by Organization Details LastModified Time None Recorded Advance Directives Directive None Recorded Payers Encounter Date Sequence Insurance Name Policy Number Policy Rodriguez Covered Member ID Rodriguez Member ID Guarantor Name 12/29/2023 1 [facility] - HEALTH NET PLAN (MEDICAID HMO) BURTON Quiñonez [id number] Mckenzie Quiñonez Notes Date Note Type Note [...] in several years. JUNIE RICH PA-C [address] [facility],[place] [address], [place], [address], [place] - [facility] 12/29/2023 16:53:54 OBGyn Episode No OBEpisode recorded.
--- OUTSIDE RECORDS SUMMARY | 2024-09-05 08:58 | XMS_ITS | Encounter Summary ---
Author Organization [employer] Address [address] [place] [address] [place] [address] Care Team Providers Care Director Of Accreditation Name Role Phone Unavailable Primary Care Provider Unavailabl e Reason for Visit * Reason Comments Filling Patient presents tod ay for filings Flores BACON Encounter Details Date Type Department Care Team ([facility] st Contact Info) Description 09/03/2024 10:00 AM EST Office Visit [facility] ADULT D[facility] [address] [place], [place] [phone] Nirmal Odell, LISA [address] [place], [place] [phone] Severe dental caries (Primary Dx) Social History Tobacco Use [...] Sign Reading Time Taken Comments Blood Pressure 122/86 09/03/2024 10:04 AM EST Pulse - - Temperature - - Respiratory Rate - - Oxygen Saturation - - Inhaled Oxygen Concentration - - Weight - - Height - - Body Mass Index - - documented in this encounter Progress Notes * Nirmal Odell DMD - 09/03/2024 10:00 AM EST Patient ID: Mckenzie Quiñonez is a 49 y.o. female. Time Out: Timeout Date: 09/03/24, Timeout Time: 1011 (Yomi #20,22) Location: [facility] Tooth: #20 Procedure: Extraction Verified the above with patient, occupational therapist assistant, and provider. Confirmed via patient's chart, intraorally and by radiographs. Bead Filler: not applicable Chief Complaint Patient presents with Filling Patient presents today for valeriano BACON Medical Hx: Vitals: Blood pressure 122/86. Past Medical History: Diagnosis Date Diabetes mellitus ([facility]) Hypertension Medications: Outpatient Encounter Medications as of 09/03/2024 Medication Sig Dispense Refill amoxicillin-clavulanate (Augmentin) 500-125 [...] PATIENT REQUEST. Sodium Fluoride 1.1 % cream [place] teeth for 2 minutes, morning and night. Spit, do not rinse. Do not eat or drink anything for 30 minutes following use. 112 g 3 Tirzepatide (Mounjaro) 10 MG/0.5ML solution pen-injector Inject under the skin. No facility-administered encounter medications on file as of 09/03/2024. Consent Obtained: The risks, benefits, indications, potential complications, and alternatives were explained to the patient and informed consent was obtained with good understanding. Treatment Provided: Dental procedures in this visit D7140 - EXTRACTION, ERUPTED TOOTH OR EXPOSED ROOT (ELEVATION AND/OR FORCEPS REMOVAL) 20 (Completed) Service provider: Nirmal Odell DMD Billing provider: Nirmal Odell DMD D9450 - ADJUNCTIVE GENERAL SERVICES - PROFESSIONAL VISITS - CASE PRESENTATION, SUBSEQUENT TO DETAILED AND EXTENSIVE TREATMENT PLANNING (Completed) Service provider: Nirmal Odell DMD Billing provider: Nirmal Odell DMD Pt originally in office for Yomi #20,22 Upon caries excavation, deemed #20 non-restorable due to deep subgingival caries and grade 1 mobility. Tooth is not suitable for partial denture abutment. Informed pt and recommended extraction. Pt would like to EXT today. Diagnosis: #20 deep subgingival caries, non-restorable, periodontal disease Topical: 20% Benzocaine Anesthesia: 4% Septocaine (Articaine) w/ 1:200,000 epinephrine Number of Cartridges: 2 Injection Type: Buccal infiltration and lingual infiltration Confirmed profound anesthesia. Pharyngeal curtain and bite block placed. Removed tooth with elevators and forceps. Apices intact. Surgical Extraction: N/A Socket curetted & irrigated with sterile water. Compressed alveolar bone. Sutures: None Needed All adjacent teeth intact. Hemostasis achieved. Complications: None Written and verbal post-op instructions given. Patient discharged in stable condition; ambulatory, alert, and oriented. NV: #20,23, 24,25 restos Ingot Supervisor: Flores Omalley Dentist: Nirmal Odell DMD documented in this encounter Plan of Treatment Upcoming Encounters Date Type Department Care Team (Late st Contact Info) Description 10/02/2024 9:30 AM EDT Office Visit [facility] [address] [place] [address] Nirmal Odell DMD [address] [place] [address] Scheduled Orders Name Type Priority Associated Diagnoses Orde r Schedule 24 MFF(V) 24 MFF(V) RESTORATIVE - RESIN-BASED COMPOSITE RESTORATIONS - DIRECT - RESIN-BASED COMPOSITE - TWO SURFACES, ANTERIOR [facility] 09/03/2024 25 MF 25 MF RESTORATIVE - RESIN-BASED COMPOSITE RESTORATIONS - DIRECT - RESIN-BASED COMPOSITE - TWO SURFACES, ANTERIOR Dental Routine 1 Occurr ences starting 09/03/2024 documented as of this encounter Procedures Procedure Name Priority Date/Time Associated Diagnosis Comments 20 EXTRACTION, ERUPTED TOOTH OR EXPOSED ROOT (ELEVATION/FORCEPS REMOVAL) Routine 09/03/2024 10:00 AM EST Severe dental caries CASE PRESENTATION, DETAILED AND EXTENSIVE TREATMENT PLANNING Routine 09/03/2024 10:00 AM EST Severe dental caries documented in this encounter Visit Diagnoses Diagnosis Severe dental caries- Primary documented in this encounter
--- OUTSIDE RECORDS SUMMARY | 2024-09-05 08:58 | XMS_ITS | Clinical Summary ---
Author Organization [employer] Address [address] [place] [address] 7 [place] [address] Care Team Providers Care Conference Concierge Name Role Phone Unavailable Primary Care Provider [...] Sodium Fluoride 1.1 % creamIndication s:Dental caries [place] teeth for 2 minutes, morning and night. [...] Encounters Date Type Department Care Team Description 09/03/2024 10:00 AM EST Office Visit [facility] ADULT DENTAL [address] [place] [address] Nirmal Odell DMD Severe dental caries (Primary Dx) 08/02/2024 8:30 AM EST Office Visit [facility] ADULT DENT[facility] [address] [place] [address] Nirmal Odell DMD Dental caries (Primary Dx) 07/26/2024 8:00 AM EST Office Visit [facility]ULT D[facility] [address] [place] [address] Nirmal Odell DMD Periodontal disease (Primary Dx); Dental caries 07/25/2024 2:00 PM EST Office Visit [facility]ULT [facility] [address] [place] [address] Mireya Cole Dental calculus (Primary Dx); Dental [...] Pressure 122/86 09/03/2024 10:04 AM EST Pulse 67 11/16/2022 1:22 PM EDT Temperature - - Respiratory Rate - - Oxygen Saturation - - Inhaled Oxygen Concentration - - Weight - - Height - - Body Mass Index - - Plan of Treatment Upcoming Encounters Date Type Department Care Team (Late st Contact Info) Description 10/02/2024 9:30 AM EDT Office Visit [facility]ULT D[facility] [address] [place] [address] Nirmal Odell DMD [address] [place] [address] Health Maintenance Due Date Last Done Comments [...] Dental X-Ray: Bitewings 07/26/2025 07/25/2024 Tobacco Screening 09/03/2025 09/03/2024 DTaP/Tdap/Td Vaccines (2 - T d or [...] Procedure Name Priority Date/Time Associated Diagnosis Comments CASE PRESENTATION, DETAILED AND EXTENSIVE TREATMENT PLANNING Routine 09/03/2024 10:00 AM EST Severe dental caries 20 EXTRACTION, ERUPTED TOOTH OR EXPOSED ROOT (ELEVATION/FORCEPS REMOVAL) Routine 09/03/2024 10:00 AM EST Severe dental caries CASE PRESENTATION, DETAILED AND EXTENSIVE TREATMENT PLANNING Routine 08/02/2024 8:30 AM EST Dental caries 29 MBB(V)L RESIN-BASED COMPOSITE - 3 SURF, POSTERIOR Routine 08/02/2024 8:30 AM EST Dental caries 26 D RESIN-BASED COMPOSITE - 1 SURF, ANTERIOR Routine 08/02/2024 8:30 AM EST Dental caries CASE PRESENTATION, DETAILED AND EXTENSIVE TREATMENT PLANNING Routine 07/26/2024 8:00 AM EST Periodontal disease Dental caries 2 EXTRACTION, ERUPTED TOOTH OR EXPOSED ROOT (ELEVATION/FORCEPS REMOVAL) Routine 07/26/2024 8:00 AM EST Periodontal disease Dental caries 15 EXTRACTION, ERUPTED TOOTH OR EXPOSED ROOT (ELEVATION/FORCEPS REMOVAL) Routine 07/26/2024 8:00 AM EST Periodontal disease Dental caries COMPREHENSIVE PERIODONTAL EVALUATION - NEW OR ESTABLISHED PATIENT Routine 07/25/2024 2:00 PM EST Dental caries Periodontal disease PERIODIC ORAL EVALUATION - ESTABLISHED PATIENT Routine 07/25/2024 2:00 PM EST Dental caries Periodontal disease INTRAORAL - COMPLETE SERIES OF RADIOGRAPHIC IMAGES Routine 07/25/2024 2:00 PM EST Dental caries Periodontal disease ORAL HYGIENE INSTRUCTIONS Routine 2024 2:00 PM EST Dental caries Periodontal disease CASE PRESENTATION, DETAILED AND EXTENSIVE TREATMENT PLANNING Routine 07/25/2024 [...] AM EST from Last 3 Months Insurance [facility] STAND ADULT
[2024-09-05 08:59] VITALS: BP 150/90; PULSE 96; BMI 35.6
--- OUTSIDE RECORDS SUMMARY | 2024-09-05 08:59 | XMS_ITS | Clinical Summary ---
Author Organization [facility] it Address [address] [place] [address] Care Team Providers Care Board Of Education Secretary Name Role Phone Diogo Wright MD Primary Care Provider [phone] Allergies Active Allergy Reactions Criticality Noted Date [...] s/p repair Anxiety 12/11/2015 DX:Anxiety Emphysema, unspecified ([facility]) 01/06 DX:Emphysema, unspecified ([facility]); COMMENT: per patient Obesity DX:Obesity COPD (chronic obstructive pu lmonary disease) ([facility]) DX:COPD (chronic obstructive pulmonary disease) ([facility]) Tobacco abuse DX:Tobacco abuse Type 2 diabetes mellitus ([facility]) DX:Type 2 diabetes mellitus (HCC) Vitamin D deficiency DX:Vitamin D deficiency Anxiety DX:Anxiety Hyperlipidemia DX:Hyperlipidemi a Family History Medical History Relation Name Comments Breast cancer Aunt paternal ?age Suicide Attempts Brother x 1 Throat cancer Father (+smoker), [employer] D, HTN, liver transplant Heart failure Maternal [...] * Urine Albumin Creatinine Ratio (03/27/2020) [facility] Urine Albumin Creatinine Ratio abstracted Result [facility] Provider HEALTH MAINTENANCE Final Result * Annual BMP Blood Test (03/27/2020) [facility] Annual BMP Blood Test abstracted Result [facility] Provider HEALTH MAINTENANCE Final Result * (ABNORMAL) Hemoglobin A1c (03/27/2020) [facility] Hemoglobin A1C 7.2(A) <=6.5 % Blood Venous blood specimen / Unknown Result [facility] Provider LAB BLOOD ORDERABLES Celsa l Result * (ABNORMAL) Lipid panel (03/27/2020) [facility] LDL/HDL Ratio 9(A) 0 - 4 Triglycerides 388(A) 0 - 150 mg/dL Cholesterol 285(A) 0 - 200 mg/dL HDL 31(A) >=40 mg/dL LDL Cholesterol 177(A) 0 - 100 mg/dL Blood Venous blood specimen / Unknown Result [facility] Provider LAB BLOOD ORDERABLES Celsa l Result * HIV Screening (08/23/2018) [facility] HIV Screening abstracted Result [facility] Provider HEALTH MAINTENANCE Final Result * Hepatitis C Screening (08/23/2018) [facility] Hepatitis C Screening abstracted Result [facility] Provider HEALTH MAINTENANCE Final Result * Cervical Cancer Screening: HPV (02/09/2016) [facility] Cervical Cancer Screening: HPV negative, abstracted Result [facility] Provider HEALTH MAINTENANCE Final Result from Last 3 Months or Most Recently Relevant to Health Maintenance Care Teams Board Of Education Secretary Relationship Specialty Start Date End Date Diogo Wright MD PCP - General Internal Medicine 03/12/21
[2024-09-05 09:08] LABS: Glucose, Whole Blood 385 mg/dL (60-115)
== END 2024-09-05 09:27 | disposition home or self-care (01) ==
PROVIDERS: PCP Physician Assistant; Visit Provider Internal Medicine
DX: E11.21 Type 2 diabetes mellitus with diabetic nephropathy (principal); Z91.148 Patient's other noncompliance with medication regimen for other reason

== ENCOUNTER → 2024-09-05 08:45 | Outpatient (BNVA) | payer OTHER, SELFPAY | PROVIDERS: PCP Physician Assistant; Visit Provider Internal Medicine | DX: E11.21 Type 2 diabetes mellitus with diabetic nephropathy (principal); Z91.148 Patient's other noncompliance with medication regimen for other reason | CPT/HCPCS: 82947; 99212 ==

== ENCOUNTER 2024-09-09 09:59 | Outpatient (AMB) | payer OTHER, SELFPAY ==
--- OUTSIDE RECORDS SUMMARY | 2024-09-09 10:02 | XMS_ITS | Data Portability ---
Author Organization [place] - [facility], Allergy Address [address] [place] [address] Assessment Encounter Date Assessment Date Assessment LastModified [...] disequilibrium is coming from an otologic source. [email or web address] Not available 12/29/2023 16:52:35 Plan of Treatment Reminders Order Date Submit Date Provider Last Modified By Organization Details Last Modified Time Details Appointments None recorded. Lab None recorded. Referral neurologist referral 2023 024 [email or web address] 2 [facility] Neurology Scheduling, [address] [place], [address], 4 10:41:05 Procedures None recorded. Surgeries None [...] Organization Details Recorded Time Abnormal auditory perception 67556593 Active 2023 Savannah chicas [place] - [facility] 16:32:03 Migraine without aura 09779397 Active 2023 JUNIE RICH PA-C [address] [place] [address],[address], [address], [facility] 4 16:52:39 Dizziness and giddiness 872440850 Active 2023 JUNIE RICH PA-C [address] [place] [address],[address], [address], [facility] 4 16:52:43 Bilateral earache 675781092 Active 2023 JUNIE RICH PA-C [address] [place] [address],[address], [address], [facility] 4 16:52:54 Bilateral temporomand ibular joint pain 5423877132505 9105 Active 2023 JUNIE RICH PA-C [address] [place] [address], [address] [place] [address], [address], [facility] 4 16:53:00 Problem Notes None recorded. Procedures Surgical History Date Name Laterality Status Provider Name and Address Organization Details Recorded Time Comp Audio with Tymps (47103 & [address]908) completed Savannah Goldsmith [place] - [facility] 12/29/2023 16:30:31 Cerumen removal without microscope left completed JUNIE RICH PA-C [address] [place] [address],[place] [address], [place], [address], [facility] - [facility] 12/29/2023 14:56:07 Imaging Results Imaging Date [...] Note 3283 JUNIE RICH PA-C [facility]NT[facility] of [address] [address] 12/29/2023 13:49:33 12/29/2023 16:39:20 Abnormal auditory perception 91975553 H93.299 Audiologic al evaluation results: Right ear: [...] a hermetic seal}} Migraine without aura 56 003058 G43.009 Dizziness and giddiness 962951512 R42 Bilateral earache 858018 003 H92.03 Bilateral temporomandibular joint pain 1625495859 9112540 M26.623 Health Concerns Section Related Observation LastModified by Organization Detai ls LastModified Time None Recorded Concern Status LastModified by Organization Details LastModified Time None Recorded Advance Directives Directive None Recorded Payers Encounter Date Sequence Insurance Name Policy Number Policy Rodriguez Covered Member ID Rodriguez Member ID Guarantor Name 12/29/2023 1 [facility] - HEALTH NET PLAN (MEDICAID HMO) BURTON Quiñonez [id number] Mckenzie Quiñonez Notes Date Note Type Note [...] in several years. JUNIE RICH PA-C [address] [facility],[place] [address], [place], [address], [place] - [facility] 12/29/2023 16:53:54 OBGyn Episode No OBEpisode recorded.
--- OUTSIDE RECORDS SUMMARY | 2024-09-09 10:02 | XMS_ITS | Clinical Summary ---
Author Organization [employer] Address [address] [place] [address] 7 [place] [address] Care Team Providers Care Furniture Upholsterer Apprentice Name Role Phone Unavailable Primary Care Provider [...] Sodium Fluoride 1.1 % creamIndication s:Dental caries [place] teeth for 2 minutes, morning and night. [...] 09/03/2024 10:00 AM EST Office Visit [facility] [address] [place] [address] Nirmal Odell DMD Severe dental caries (Primary Dx) 08/02/2024 8:30 AM EST Office Visit [facility] [address] [place] [address] Nirmal Odell DMD Dental caries (Primary Dx) 07/26/2024 8:00 AM EST Office Visit [facility] [address] [place] [address] Nirmal Odell DMD Periodontal disease (Primary Dx); Dental caries 07/25/2024 2:00 PM EST Office Visit [facility] [address] [place] [address] Mireya Cole Dental calculus (Primary Dx); Dental [...] Description 10/02/2024 9:30 AM EDT Office Visit [facility] [address] [place] [address] Nirmal Odell DMD [address] [place] [address] Health Maintenance Due Date Last Done Comments [...] AM EST from Last 3 Months Insurance [facility] ST[facility]
--- OUTSIDE RECORDS SUMMARY | 2024-09-09 10:02 | XMS_ITS | Clinical Summary ---
Author Organization [facility] Address [address] [place] [address] Care Team Providers Care Vacuum Cooker Operator Name Role Phone Diogo Wright MD Primary Care Provider [phone] Allergies Active Allergy Reactions Criticality Noted Date [...] age to complete this topic Care Teams Vacuum Cooker Operator Relationship Specialty Start Date End Date Diogo Wright MD PCP - General Internal Medicine 03/12/21
--- OUTSIDE RECORDS SUMMARY | 2024-09-09 10:02 | XMS_ITS | Encounter Summary ---
Author Organization [employer] Address [address] [place] [address] [address] [address] Care Team Providers Care Network Engineer Administrator Name Role Phone Unavailable Primary Care Provider Unavailabl e Reason for Visit * Reason Comments Filling Patient presents tod ay for filings Flores BACON Encounter Details Date Type Department Care Team ([facility] st Contact Info) Description 09/03/2024 10:00 AM EST Office Visit [facility] [address] [place], [place] [phone] Nirmal Odell, LISA [address] [place], [place] [phone] Severe dental caries (Primary Dx) Social History [...] 09/03/24, Timeout Time: 1011 (Yomi #20,22) Location: [facility] Tooth: #20 Procedure: Extraction Verified the above with patient, corporate law assistant, and provider. Confirmed via patient's chart, intraorally and by radiographs. Voucher Clerk: not applicable Chief Complaint Patient presents with Filling Patient presents today for valeriano BACON Medical Hx: Vitals: Blood pressure 122/86. Past Medical History: Diagnosis Date Diabetes mellitus ([facility]) Hypertension Medications: Outpatient Encounter Medications as of [...] PATIENT REQUEST. Sodium Fluoride 1.1 % cream [place] teeth for 2 minutes, morning and night. [...] alert, and oriented. NV: #20,23, 24,25 restos Corporate Accountant: Flores Omalley Dentist: Nirmal Odell DMD documented in this encounter Plan of Treatment Upcoming Encounters Date Type Department Care Team (Late st Contact Info) Description 10/02/2024 9:30 AM EDT Office Visit [facility] [address] [place] [address] Nirmal Odell DMD [address] [place] [address] Scheduled Orders Name Type Priority Associated Diagnoses Orde r Schedule 24 MFF(V) 24 MFF(V) RESTORATIVE - RESIN-BASED COMPOSITE RESTORATIONS - DIRECT - RESIN-BASED COMPOSITE - TWO SURFACES, ANTERIOR [facility] 09/03/[facility]24 25 MF 25 MF RESTORATIVE - [...]
--- OUTSIDE RECORDS SUMMARY | 2024-09-09 10:02 | XMS_ITS | Clinical Summary ---
Author Organization [facility] it Address [address] [place] [address] Care Team Providers Care Doorshaker Name Role Phone Diogo Wright MD Primary Care Provider [phone] Allergies Active Allergy Reactions Criticality Noted Date [...] s/p repair Anxiety 12/11/2015 DX:Anxiety Emphysema, unspecified ([facility]) 01/06 DX:Emphysema, unspecified ([facility]); COMMENT: per patient Obesity DX:Obesity COPD (chronic obstructive pu lmonary disease) ([facility]) DX:COPD (chronic obstructive pulmonary disease) ([facility]) Tobacco abuse DX:Tobacco abuse Type 2 diabetes mellitus ([facility]) DX:Type 2 diabetes mellitus (H[facility]) Vitamin D deficiency DX:Vitamin D deficiency Anxiety DX:Anxiety Hyperlipidemia DX:Hyperlipidemi a Family History Medical History Relation Name Comments Breast cancer Aunt paternal ?age Suicide Attempts Brother x 1 Throat cancer Father (+smoker), [employer], HTN, liver transplant Heart failure Maternal [...] Years) (1 of 2 - PCV) 1995 Cervical Cancer Screening: P ap Smear [...] Results * Urine Albumin Creatinine Ratio (03/27/2020) [facility] Urine Albumin Creatinine Ratio abstracted Result [facility] Provider HEALTH MAINTENANCE Final Result * Annual BMP Blood Test (03/27/2020) [facility] Annual BMP Blood Test abstracted Result [facility] Provider HEALTH MAINTENANCE Final Result * (ABNORMAL) Hemoglobin A1c (03/27/2020) [facility] Hemoglobin A1C 7.2(A) <=6.5 % Blood Venous blood specimen / Unknown Result [facility] Provider LAB BLOOD ORDERABLES Celsa l Result * (ABNORMAL) Lipid panel (03/27/2020) [facility] LDL/HDL Ratio 9(A) 0 - 4 Triglycerides 388(A) 0 - 150 mg/dL Cholesterol 285(A) 0 - 200 mg/dL HDL 31(A) >=40 mg/dL LDL Cholesterol 177(A) 0 - 100 mg/dL Blood Venous blood specimen / Unknown Result [facility] Provider LAB BLOOD ORDERABLES Celsa l Result * HIV Screening (08/23/2018) [facility] HIV Screening abstracted Result [facility] Provider HEALTH MAINTENANCE Final Result * Hepatitis C Screening (08/23/2018) [facility] Hepatitis C Screening abstracted Result [facility] Provider HEALTH MAINTENANCE Final Result * Cervical Cancer Screening: HPV (02/09/2016) [facility] Cervical Cancer Screening: HPV negative, abstracted Result [facility] Provider HEALTH MAINTENANCE Final Result from Last 3 Months or Most Recently Relevant to Health Maintenance Care Teams Doorshaker Relationship Specialty Start Date End Date Diogo Wright MD PCP - General Internal Medicine 03/12/21
[2024-09-09 10:20] VITALS: BP 122/80; PULSE 96; TEMP 36.7; O2SAT 96; BMI 36.1
--- NOTE | 2024-09-09 10:20 | AM.OFFWIN_ITS ---
Intake Vital Signs 3 09/09/24 10:20 Height 5 ft 5 in Weight 217 lb BMI 36.1 BP 122/80 Blood Pressure Location Rt brachial Position Sitting Pulse 96 Pulse Source Pulse Oximeter Temp 98.0 F Temp Source Oral Pulse Oximetry (%) 96 Oxygen Delivery Method Room Air Intake Visit Reasons: EP sty on RT eye Intake Note: Patient here for right eye swelling and redness that has been present since Monday. Patient Tobacco Use Status: Current everyday Tobacco user Allergies latex [LATEX] Allergy (Mild, Verified 09/09/24 10:21) RASH Iodinated Contrast Media [IV Contrast Dye] Allergy (Verified 09/09/24 10:21) Anaphylaxis amoxicillin Adverse Reaction (Unknown, Verified 09/09/24 10:21) vaginal infection dulaglutide [From Trulicity] Adverse Reaction (Unknown, Verified 09/09/24 10:21) vomitting, nausea semaglutide [From Ozempic] Adverse Reaction (Unknown, Verified 09/09/24 10:21) Chest pain, vomitting Do you need a note to return to daycare/school/sports/work: No HPI HPI Comments 2 History of Present Illness0 Details 49 y/o female patient who presents to [facility] walk in clinic with c/o right upper eyelid swelling and redness since this morning. Denies any vision changes or severe eye pain. [facility] Medical History (Updated 09/09/24 @ 10:55 by Britt Hitchcock NP) Hordeolum externum of right eye Itching Obesity (BMI 30-39.9) Sepsis Diverticulitis of both large and small intestine with perforation and abscess Diverticulitis of large intestine with abscess Morbid obesity with BMI of 50.0-59.9, adult Hypertension Vitamin D deficiency B12 deficiency Diabetic nephropathy associated with type 2 diabetes mellitus Dyslipidemia Hirsutism Diabetes type 2, uncontrolled Surgical History Hx of abdominal surgery Hx of umbilical hernia repair History of ankle surgery Hx of section Family History Father Throat cancer Cirrhosis Mother Diabetes Social History Household Members: None Housing: House Do you presently have visiting nurse or other home services: Yes Alcohol intake: former Patient Tobacco Use Status: Current everyday Tobacco user Tobacco use type: Cigarette Cigarette Packs Per Day: 0.5 Cigarettes Per Day: 5 Years Smoked: 30 e-Cigarette/Vaping Use: Never Used Second Hand Smoke Exposure: Yes Substance Use Type: Marijuana Advance Directives Date on File: 05/05/21 service: No Current occupational status: disabled Cognitive needs: No Hearing needs: No Vision needs: Yes Review of Systems Const All systems reviewed & are unremarkable except as noted in HPI and below Physical Exam Vital Signs: Last Vital Signs Temp 98.0 F 09/09/24 10:20 Pulse 96 09/09/24 10:20 BP 122/80 09/09/24 10:20 Pulse Ox 96 09/09/24 10:20 Oxygen Delivery Method Room Air 09/09/24 10:20 BMI result Body Mass Index 36.1 Const General: cooperative and no acute distress Nutritional Appearance: obese Orientation/consciousness: patient oriented x3 Eyes Eyelids: Yes eyelid abnormality (Redness and swelling right upper eyelid) Conjunctivae: conjunctivae normal Corneas: corneas normal Pupils: Equal, round and reactive pupils present EOM: EOMs intact bilaterally Direct Ophthalmoscopy: normal light reflex Eyes/upper lids images: 2 1. Swollen and redness upper eyelid, TTP Neuro General: patient oriented x3 Cranial nerves: Yes Equal, round and reactive pupils present Assessment & Plan Assessment & Plan (1) Hordeolum externum of right eye: Code(s): H00.013 - Hordeolum externum right eye, unspecified eyelid Qualifiers: Eyelid: upper Qualified Code(s): H00.011 - Hordeolum externum right upper eyelid Plan: Ordered Abx Ointment. Apply warm compresses to the affected area several times a day to encourage drainage. Most styes resolve on their own within a week. Gently clean the eyelid with a mild soap and water solution. Medications: New 2 erythromycin APPLY A THIN LAYER TO THE RIGHT EYE AT BEDTIME FOR SEVEN DAYS. 1 appl ophthalmic (eye) BEDTIME 3.5 grams 0RF 7 days H00.011 - Hordeolum externum right upper eyelid Coding Level of Care Code Est Pt Level 4 (26884) Diagnoses Hordeolum externum of right upper eyelid H00.011 Eyelid: upper Time Spent (min) 20
== END 2024-09-09 10:51 | disposition home or self-care (01) ==
PROVIDERS: PCP Physician Assistant; Visit Provider Nurse Practitioner Family
DX: H00.011 Hordeolum externum right upper eyelid (principal)

== ENCOUNTER → 2024-09-09 09:59 | Outpatient (BNVA) | payer OTHER, SELFPAY | PROVIDERS: PCP Physician Assistant | DX: M00.011 Staphylococcal arthritis, right shoulder (principal) | CPT/HCPCS: 99212 ==

== ENCOUNTER 2024-09-18 13:04 | Outpatient (AMB) | payer OTHER, SELFPAY ==
--- NOTE | 2024-09-18 13:07 | A.OFFPC_ITS ---
Vital Signs 09/18/24 13:08 Height 5 ft 5 in Weight 215 lb 8 oz BMI 35.9 BP 130/76 Blood Pressure Location Lt brachial Position Sitting Pulse 89 Pulse Source Pulse Oximeter Temp 97.1 F Temp Source Temporal Artery Scan Pulse Oximetry (%) 96 Oxygen Delivery Method Room Air Intake Visit Reasons: ANNUAL Intake Note: Patient is here today for a physical. Sustainability Coordinator Required: No Line Fisher: Not Required per policy Accompanied by: Self / Same As Patient Allergies latex [LATEX] Allergy (Mild, Verified 09/18/24 13:23) RASH Iodinated Contrast Media [IV Contrast Dye] Allergy (Verified 09/18/24 13:23) Anaphylaxis amoxicillin Adverse Reaction (Unknown, Verified 09/18/24 13:23) vaginal infection dulaglutide [From Trulicity] Adverse Reaction (Unknown, Verified 09/18/24 13:23) vomitting, nausea semaglutide [From Ozempic] Adverse Reaction (Unknown, Verified 09/18/24 13:23) Chest pain, vomitting Medication List - Last Reconciled 09/18/24 by Cruz Navas PA-C abdominal binder As directed albuterol sulfate 2.5 mg (3 mL) inhalation Q6H PRN 30 days albuterol sulfate 90 mcg/actuation 1 inh inhalation QID PRN 30 days albuterol sulfate 90 mcg/actuation (Ventolin HFA) 2 puffs inhalation Q4-6H PRN amlodipine 5 mg PO DAILY atorvastatin 40 mg PO BEDTIME blood sugar diagnostic (FreeStyle Test strips) testing 3x daily blood-glucose meter (FreeStyle Lite Meter kit) As directed cholecalciferol (vitamin D3) 25 mcg PO DAILY 90 days epinephrine (EpiPen 2-Josué) 0.3 mg (0.3 mL) IM ONCE PRN erythromycin 1 appl ophthalmic (eye) BEDTIME 7 days flash glucose scanning reader (FreeStyle Tiff 2 Hessel) 1 ea miscellaneous DIRECTED flash glucose sensor (FreeStyle Tiff 2 Sensor kit) DIRECTED EVERY 2 WEEKS fluticasone propion-salmeterol 250-50 mcg/dose (Advair Diskus) 1 ea inhalation BID 30 days FreeStyle Precision Haresh Strips (blood sugar diagnostic) As needed up to four times daily NS glucose 4 grams PO Q15M PRN insulin glargine (Lantus Solostar U-100 Insulin) 20 units (0.2 mL) subcut BEDTIME insulin lispro 20 - 30 units subcut TID meclizine 25 mg PO DAILY nitroglycerin 0.4 mg sublingual Q5M PRN 15 days ondansetron HCl 8 mg PO Q12H 15 days oxycodone 10 mg PO Q8H PRN 7 days Ozempic (semaglutide) 2 mg (0.75 mL) subcut QWEEK NS pen needle, diabetic (BD Ultra-Fine Macy Pen Needle) USE DIRECTED 4 TIMES DAILY pioglitazone 15 mg (1/2 x 30 mg) PO DAILY Tobacco use date assessed: 09/18/24 Dental Screening Dental Screen Date: 08/20/24 HPI ANNUAL HPI Details Patient is a 49-year-old female here today for an annual physical. ? Patient has a past medical history significant for obesity, type 2 diabetes, tobacco dependency, generalized anxiety disorder, chronic incisional abdominal hernia. Incisional hernia--> she is followed by [facility] hernia surgeon. Unfortunately her follow-up appointments has been delayed due to some unclear reason. Was was previous not a candidate for surgery as she has gained weight, continues to smoke in her diabetes wasn't well controlled. She was told she needed to get her diabetes better controlled and a clearance from her enhanced environmental operator due to her dysfunctional uterine bleeding.. --> SHE CONTINUES WITH PAIN MANAGEMENT W ITH OXYCODONE 10 MG WHICH HAS GIVEN HER THE ABILITY TO BE MORE PHYSICALLY ACTIVE AND HAS BEEN WALKING MORE. SHE HAS LOST 3 LB SINCE LAST OFFICE VISIT. ALSO ON OZEMPIC 2MG WEEKLY THAT HAS OFFERED HER THE ABILITY DID LOSE WEIGHT AND SOME GLYCEMIC CONTROL. SHE DOES REPORT SINCE BEING MORE PHYSICALLY ACTIVE SHE IS FELT DIFFERENT PAIN/SENSATION IN HER ABDOMEN. NO DEFECATION ISSUES REPORTED. She will be following back up with her abdominal hernia surgeon after she gets cleared spine enhanced environmental operator and gets better glycemic control. She anticipates surgery in the next 4 months. Type 2 diabetes: Followed by her [facility]. She has recently stopped her Ozempic due to fears of side effects of worsening vertigo. She has not regularly been taking a short-acting insulin. She has not been really checking her sugars as she has been out of her freestyle sensors Most recent A1c above 9 PLAN: Restart using short-acting insulin before each of her snacks and meals to gain better glycemic control Hypertriglyceridemia: Have noted elevation in her triglycerides. She did stop taking her fenofibrate as she was concerned about side effects. She promises to restart fenofibrate to reduce her triglycerides. .. Tobacco dependency: She does admit to smoking a few cigarettes per day and attributes this smoking pattern due to stress Vaccines: Up-to-date with tetanus vaccine, APPLIANCE PARTS COUNTER CLERK: Followed by [facility] enhanced environmental operator- Her menstrual irregularities have prompted further investigation by her j2ee software engineer with an upcoming biopsy and pelvic ultrasound planned. .; Mammo : Scheduled Colorectal cancer screening: HOlding off on [facility] Medical History Hordeolum externum of right eye Itching Obesity (BMI 30-39.9) Sepsis Diverticulitis of both large and small intestine with perforation and abscess Diverticulitis of large intestine with abscess Morbid obesity with BMI of 50.0-59.9, adult Hypertension Vitamin D deficiency B12 deficiency Diabetic nephropathy associated with type 2 diabetes mellitus Dyslipidemia Hirsutism Diabetes type 2, uncontrolled Surgical History Hx of abdominal surgery Hx of umbilical hernia repair History of ankle surgery Hx of section Family History (Updated 09/18/24 @ 13:31 by Cruz Navas PA-C) Father Throat cancer Cirrhosis Mother Diabetes Sister History of hysterectomy Social History (Updated 09/18/24 @ 13:32 by Cruz Navas PA-C) Household Members: None Housing: House Do you presently have visiting nurse or other home services: Yes Alcohol intake: former Patient Tobacco Use Status: Current everyday Tobacco user Tobacco use type: Cigarette Cigarette Packs Per Day: 0.5 Cigarettes Per Day: 1 Years Smoked: 30 e-Cigarette/Vaping Use: Never Used Second Hand Smoke Exposure: Yes Substance Use Type: Marijuana Advance Directives Date on File: 05/05/21 service: No Current occupational status: disabled Cognitive needs: No Hearing needs: No Vision needs: Yes Questionnaire PHQ-9 Over the last 2 weeks, how often have you been bothered by any of the following problems? 1. Little interest or pleasure in doing things: several days 2. Feeling down, depressed, or hopeless: several days 3. Trouble falling or staying asleep, or sleeping too much: several days 4. Feeling tired or having little energy: more than half the days 5. Poor appetite or overeating: more than half the days 6. Feeling bad about yourself - or that you are a failure or have let yourself or your family down: several days 7. Trouble concentrating on things, such as reading the newspaper or watching television: more than half the days 8. Moving or speaking so slowly that other people could have noticed. Or the opposite - being so fidgety or restless that you have been moving around a lot more than usual: several days 9. Thoughts that you would be better off or of hurting yourself in some wa y: several days Total score: 12 Depression Screening Interpretation: Positive Depression Screening Follow-up: Existing condition and Declines treatment Depression Screening Done: Yes 69107 - PHQ-9 Billing: Yes Source: Developed by Drs. Kahlil Thao, Patito Pradhan, Shine Carias and colleagues, with an educational kathleen from [employer]. Thrive Questionnaire Date Thrive assessed: 08/20/24 I am a: Patient What is your living situation today?: I have a place to live, but I am worried about losing it in the future Within the past 12 months, did the food you bought not last and you didn't have the money to get more?: Sometimes True Within the past 12 months, did you worry whether your food would run out before you got money to buy more?: Sometimes True Do you have trouble paying for medicines?: Yes Do you have trouble getting transportation to medical appointments?: Yes Do you have trouble paying your heating and electricity bill?: Yes Do you have trouble taking care of your child, family member or friend?: No Do you have trouble with day-to-day activities such as bathing, preparing meals, shopping, managing finances, etc.?: Yes Are you currently unemployed and looking for a job?: No Are you interested in more education?: No Please select the resources that you would like help with: Paying for medicine, Transportation and Utilities Currently or been in a relationship where the following occur: I choose not to answer THRIVE Score: 5 AUDIT C Alcohol Use Questionnaire (AUDIT-C) 1. How often do you have a drink containing alcohol?: Never Total Score: 0 RUI-7 AMB Questionnaire RUI-7 Date RUI - 7 assessed: 08/20/24 Feeling nervous, anxious, or on edge: 1 = Several days Not being able to stop or control worryin = Several days Worrying too much about different things: 1 = Several days Trouble relaxin = Several days Being so restless that it is hard to sit still: 1 = Several days Becoming easily annoyed or irritable: 1 = Several days Feeling afraid as if something awful might happen: 1 = Several days Total RUI-7 score (0-4 normal; 5-9 mild; 10-14 moderate; 15-21 severe): 7 Source: Developed by Drs. Kahlil Thao, Patito Pradhan, Shine Carias and colleagues, with an educational kathleen from [employer]. RUI-7 Assessment Billing RUI-7 Assessment Tool: RUI-7 Assessment 81377 Review of Systems Const Denies body aches, Denies chills, Denies excessive sweating, Denies fatigue, Denies fever(s) and Denies headache(s) Eyes Denies blurry vision ENT Denies dysphagia, Denies vertigo, Denies dizziness, Denies headache(s), Denies hearing loss and Denies tinnitus Card Denies chest pain, Denies chest pain with activity, Denies syncope, Denies irregular heart rhythm and Denies dyspnea Resp Denies chest congestion, Denies cough, Denies hemoptysis, Denies dyspnea and Denies wheezing GI Denies abdominal pain, Denies melena, Denies hematochezia, Denies coffee ground emesis, Denies dysphagia, Denies diarrhea, Denies nausea and Denies vomiting Denies urinary frequency, Denies dysuria, Denies urinary hesitancy and Denies urinary urgency Musc Denies arthralgias, Denies limited range of motion, Denies muscle cramps and Denies muscle weakness Skin/Breast Denies rash and Denies skin ulcer Neuro Denies Abnormal speech present, Denies confusion, Denies vertigo, Denies dizziness, Denies syncope, Denies headache(s), Denies memory loss and Denies seizure-like activity Psych Denies anxiety, Denies confusion, Denies depression, Denies memory loss, Denies panic attacks and Denies paranoia Endo Denies excessive sweating, Denies fatigue, Denies flushing, Denies polydipsia and Denies polyuria Aller/Immun Denies wheezing Physical exam (Primary Care) Vital Signs: Last Vital Signs Temp 97.1 F 09/18/24 13:08 Pulse 89 09/18/24 13:08 BP 130/76 09/18/24 13:08 Pulse Ox 96 09/18/24 13:08 Oxygen Delivery Method Room Air 09/18/24 13:08 BMI result Body Mass Index 35.9 Tobacco/Smoking Status: Tobacco use Status Tobacco use date assessed 09/18/24 09/18/24 13:14 Patient Tobacco Use Status Current everyday Tobacco 09/18/24 13:32 Tobacco use type Cigarette 09/18/24 13:32 e-Cigarette/Vaping Use Never Used 09/18/24 13:32 Are you ready to quit: Yes Tobacco cessation counseling provided: Yes Items discussed: Nicotine replacement Relapse Prevention: discussed the importance of a supportive environment, discussed negative mood or depression after quitting, weight gain after smoking is common and discussed dietary, exercise and/or lifestyle changes CPT code: 65184 - 4-10 Minutes PHQ-9: PHQ-9 Score PHQ-9: Total score 12 09/18/24 13:25 Depression Screening Interpretation: Positive Depression Screening Follow-up: Existing condition and Declines treatment Thrive Assessment: Date of Thrive Assessment Date Thrive assessed 08/20/24 09/18/24 13:14 Currently or been in a relationship where the following occur: I choose not to answer Const General: cooperative, comfortable, no acute distress, alert and awake; No confusion Orientation/consciousness: oriented to person, oriented to place, patient oriented x3 and No confusion HENMT Head: Yes normocephalic Ears: external ears normal and TM's normal bilaterally Face and sinus: No sinus tenderness Mouth: Normal oral and palatal mucosa present and tongue normal Teeth and gingiva: dentition normal and gingiva normal Throat: Yes posterior oropharynx normal, Yes tonsils normal and Yes uvula midline Eyes Conjunctivae: conjunctivae normal Sclerae: sclerae normal Pupils: Equal, round and reactive pupils present EOM: EOMs intact bilaterally Direct Ophthalmoscopy: No no photophobia Neck Neck: Yes no lymphadenopathy, No tender and Yes no JVD Thyroid: Thyroid normal Carotids: no bruits Chest Chest palpation & inspection: no tenderness Resp Effort & Inspection: normal respiratory effort, no audible wheezes, not labored and no stridor Auscultation: no crackles, no rales, no rhonchi and no wheezes Cardio Jugular venous distension: no JVD Rate: regular rate, not bradycardic and not tachycardic Rhythm: regular rhythm Bruits: no carotid bruits Peripheral pulses: Peripheral pulses 2+ throughout GI Inspection: Yes normal to inspection, No abdominal wall ecchymosis and No visible herniation Palpation (GI): Soft to palpation, nontender, no guarding, not rigid and No hepatosplenomegaly present Auscultation: normoactive bowel sounds General: Yes no CVA tenderness Back/Spine/Pelvis Back: no CVA tenderness and No back tenderness Cervical Spine: cervical ROM normal Thoracic/Lumbar Spine: thoracic and lumbar spine normal to inspection, straight leg raise negative bilaterally, No thoraco-lumbar ROM limited and No lumbar spinal tenderness Skin Lesions: no lesions Rashes: no rashes Wounds: no wounds Neuro General: oriented to person, oriented to place, patient oriented x3, CN's II-XI intact bilaterally and No confusion Cranial nerves: Yes Equal, round and reactive pupils present and Yes Normal accommodation reflex present Cognition (Neuro): normal cognition Speech: No Abnormal speech present Gait exam (Neuro): Normal gait present Motor exam (neuro): 5/5 motor strength present throughout Extrem Right upper extremity: full ROM; no cyanosis Left upper extremity: full ROM; no cyanosis Right lower extremity: no edema Left lower extremity: no edema Psych Appearance: grossly normal Mental Status: mental status grossly normal Affect: normal affect Attitude: cooperative Thought process: Normal thought process present Coding Level of Care Code Est Pt Prev Care 40-64y(00884) Diagnoses Annual physical exam Z00.00 Incisional hernia, without obstruction or gangrene K43.2 Obstruction and gangrene presence: without obstruction or gangrene Uncontrolled type 2 diabetes mellitus with hyperglycemia E11.65 Glycemic state: with hyperglycemia Hypertriglyceridemia E78.1 Tobacco dependence F17.200 Benign paroxysmal positional vertigo due to bilateral vestibular disorder H81.13 Laterality: bilateral Centrilobular emphysema J43.2 COPD type: emphysema Emphysema type: centrilobular Additional Codes PHQ-9 - 28982 - PHQ-9 Billing: Yes ([id number]) RUI-7 Assessment Billing - RUI-7 Assessment Tool: RUI-7 Assessment [id number] ([id number]) Vital Signs *Quality* - CPT code: 37127 - 4-10 Minutes ([id number]) Assessment & Plan Assessment & Plan (1) Annual physical exam: Code(s): Z00.00 - Encounter for general adult medical examination without abnormal findings Category: Medical Plan: As per [facility] (2) Incisional hernia: Code(s): K43.2 - Incisional hernia without obstruction or gangrene Category: Medical Qualifiers: Obstruction and gangrene presence: without obstruction or gangrene Qualified Code(s): K43.2 - Incisional hernia without obstruction or gangrene Plan: Patient continues to follow up with general surgeon for her hernia evaluation. Unfortunately her appointments have been delayed due to some clear reason.. She needs to have better glycemic control to which she has making med adjustments with [facility]. She continues to wear a abdominal binder which helps to hold her hernia in placed. UNFORTUNATELY CONTINUES TO HAVE RIPPING TYPE PAIN IN HER ABDOMEN TO WHICH SHE REQUIRES NARCOTIC PAIN MEDICATION AND REST FROM TIME TO TIME. SHE DOES REPORT SHE FEELS THAT HER HERNIA HAS MOVED DOWN WORDS PASSING ON HER APPLIANCE PARTS COUNTER CLERK ORGANS. SHE REPORTS HAVING HER MENSTRUATION 3 TIMES IN 1 MONTH SHE WILL BE GETTING FURTHER ASSESSMENT WITH HER APPLIANCE PARTS COUNTER CLERK WITH BIOPSY AND ULTRASOUND. IF ALL CLEAR SHE WILL GET CLEARANCE FROM HER APPLIANCE PARTS COUNTER CLERK FOR ABDOMINAL HERNIA SURGERY. (3) Diabetes type 2, uncontrolled: Code(s): E11.65 - Type 2 diabetes mellitus with hyperglycemia Category: Medical Qualifiers: Glycemic state: with hyperglycemia Qualified Code(s): E11.65 - Type 2 diabetes mellitus with hyperglycemia Plan: As per [facility] patient now followed by [facility]. Her type 2 diabetes is not well controlled. She does admit to some dietary indiscretion though recently has been trying to be better on her diet. Not been using her short- acting insulin before meals. She recently stopped Ozempic as she felt she was having side effects of dizziness. She does admit that there were some better glycemic control when taking Ozempic. She has been recently placed on pioglitazone which she feels is somewhat effective. Unfortunately she has not been able to manage checking her sugars regularly due to her freestyle centers falling off. She does understand she needs glycemic control to be a candidate complex abdominal hernia surgery. (4) Hypertriglyceridemia: Code(s): E78.1 - Pure hyperglyceridemia Category: Medical Plan: Has not been able to tolerate statin therapy as she feels she is having some chest pain with the use of atorvastatin. . She does have suboptimal control of her lipid panel. (5) Tobacco dependence: Code(s): F17.200 - Nicotine dependence, unspecified, uncomplicated Category: Medical Plan: Patient does admit to smoking a few cigarettes per day on stress. Her abdominal hernia causes her lot of pain and stress. (6) BPPV (benign paroxysmal positional vertigo): Code(s): H81.10 - Benign paroxysmal vertigo, unspecified ear Category: Medical Qualifiers: Laterality: bilateral Qualified Code(s): H81.13 - Benign paroxysmal vertigo, bilateral Plan: As per HPI (7) COPD (chronic obstructive pulmonary disease): Code(s): J44.9 - Chronic obstructive pulmonary disease, unspecified Category: Medical Qualifiers: COPD type: emphysema Emphysema type: centrilobular Qualified Code(s): J43.2 - Centrilobular emphysema Plan: Patient has a history of smoking in still does smoke a few cigarettes per day due to stress. She reports having a history of emphysema and was seeing a eligibility worker many years ago at [facility]. She would like to reestablish care with a eligibility worker she does at times feel somewhat short of breath. AGAIN ADVISED TO COMPLETELY QUIT SMOKING Orders: Referrals Pulmonology Referral J43.2 - Centrilobular emphysema Medications: New fenofibrate nanocrystallized 145 mg PO DAILY 90 days 90 tabs 1RF E78.1 - Pure hyperglyceridemia Changed From oxycodone Partial Fill upon patient request. 10 mg PO Q8H 7 days PRN 21 tabs 0RF pain K43.2 - Incisional hernia without obstruction or gangrene To oxycodone Partial Fill upon patient request. 10 mg PO Q8H 4 days 12 tabs 0RF pain K43.2 - Incisional hernia without obstruction or gangrene Refilled epinephrine (EpiPen 2-Josué) Anaphylaxis to shellfish 0.3 mg (0.3 mL) IM ONCE PRN 2 ea 2RF anaphylaxis
[2024-09-18 13:08] VITALS: BP 130/76; PULSE 89; TEMP 36.2; O2SAT 96; BMI 35.9
--- OUTSIDE RECORDS SUMMARY | 2024-09-18 16:03 | XMS_ITS | Encounter Summary ---
Author Organization [facility] Address [address] [place] [address] Care Team Providers Care Java Web Architect Name Role Phone Mara Mcelroy MD Primary Care Provider Diogo Peck MD Primary Care Provider [phone] [facility], Pcp [facility] Encounter Details Date Type Department Care Team Description 10/11/2019 Release of Information Medical Records [address] [place] [id number] Abstract, Provider Social History Tobacco Use Types [...] on filedocumented in this encounter Care Teams Java Web Architect Relationship Specialty Start Date End Date Mara Mcelroy MD PCP - General Internal Medicine 08/20/15 10/12/20 Diogo Wright MD [address] [place] [id number] PCP - General Internal Medicine 10/13/20 11/01/21 [facility], Pcp [address] [place] [id number] PCP - General Internal Medicine 11/02/21 documented as of this encounter
--- OUTSIDE RECORDS SUMMARY | 2024-09-18 16:03 | XMS_ITS | Encounter Summary ---
Author Organization [facility] Address [address] [place] [address] Care Team Providers Care Manager Enterprise Content Management Name Role Phone Mara Mcelroy MD Primary Care Provider Diogo Peck MD Primary Care Provider [phone] [facility] [place], Pcp Primary Care Provider Unavailabl e Reason for Visit * Reason Onset Date Comments Pre-visit Diabetes Lab Adult Medicine 05/22/2019 DM due 06/05/2019 at 845 Encounter Details Date Type Department Care Team Description 05/22/2019 Telephone Respiratory and Diabetes Medicaid/ACO Pharmacist [address] [place] [id number] Mara Mcelroy MD Pre-visit Diabetes Lab Adult [...] ask that any orders entered by the [facility] Medicaid staff be associated with a diabetes diagnosis. You can use any diabetes diagnosis found on the problem list. Melinda Farmer Community Health Worker [facility] Plan [facility] [email or web address] W [phone] F [phone] documented in this encounter Plan of Treatment Not on file documented as of this encounter Results * MICROALBUMIN/CREATININE, URINE (07/29/2019 4:27 PM EST) CREATININE, RANDOM URINE 148 mg/dL 07/29/2019 8:01 PM EST [facility] MICROALBUMIN, RANDOM 10.0 0.0 - 29.0 mg/L 07/29/2019 8:08 PM EST [facility] MICROALB/CRE RATIO RANDOM 6.7 0.0 - 30.0 mg/G 07/29/2019 8:08 PM EST [facility] 07/29/2019 4:27 PM EST 07/29/2019 4:27 PM EST Mara Mcelroy MD LAB [facility] * (ABNORMAL) LIPID PROFILE (07/29/2019 4:14 PM [...] Mara Mcelroy MD LAB Performing Organization Address City/[facility]/ZIP Co de Phone Number [facility] [...] EST [facility] Comment: If patient is -Lebanese, multiply result by 1.21 Chronic Kidney Disease: [...] Mara Mcelroy MD LAB Performing Organization Address City/[facility]/ZIP Co de Phone Number [facility] * (ABNORMAL) HEMOGLOBIN A1C (07/29/2019 4:14 PM EST) GLYCATED HEMOGLOBIN A1C 6.7(H) <6.5 % 07/30/2019 10:22 AM EST [facility] ESTIMATED AVERAGE GLUCOSE 146 mg/dL 07/30/2019 10:22 AM EST [facility] 07/29/2019 4:14 PM EST 07/29/2019 4:14 PM EST Mara Mcelroy MD LAB [facility] documented in this encounter Visit Diagnoses Diagnosis Type 2 diabetes mellitus without complication, with long-term current use of insulin (HCC)- Primary documented in this encounter Care Teams Manager Enterprise Content Management Relationship Specialty Start Date End Date Mara Mcelroy MD PCP - General Internal Medicine 08/20/15 10/12/20 Diogo Wright MD [address] [place] [id number] PCP - General Internal Medicine 10/13/20 11/01/21 [place] [address] PCP - General Internal Medicine 11/02/21 documented as of this encounter
--- OUTSIDE RECORDS SUMMARY | 2024-09-18 16:03 | XMS_ITS | Encounter Summary ---
Author Organization [facility] Address [address] [place] [address] Care Team Providers Care Escapement Maker Name Role Phone Mara Mcelroy MD Primary Care Provider Diogo Peck MD Primary Care Provider [phone] [facility], Pcp Primary Care Provider [facility] saige Encounter Details Date Type Department Care Team Description 08/04/2019 Orders Only Medicine/Pediatrics - [address] [address] Mara Mcelroy MD Social History Tobacco Use [...] on filedocumented in this encounter Care Teams Escapement Maker Relationship Specialty Start Date End Date Mara Mcelroy MD PCP - General Internal Medicine 08/20/15 10/12/20 Diogo Wright MD [address] [place] [address] PCP - General Internal Medicine 10/13/20 11/01/21 [facility], Pcp [address] [place] [address] PCP - General Internal Medicine 11/02/21 documented as of this encounter
--- OUTSIDE RECORDS SUMMARY | 2024-09-18 16:03 | XMS_ITS | Encounter Summary ---
Author Organization [employer] Address [address] [place] [address] [address] [address] Care Team Providers Care Distribution Operations Supervisor Name Role Phone Unavailable Primary Care Provider Unavailabl e Reason for Visit * Reason Comments Filling Patient presents tod ay for filings Flores BACON Encounter Details Date Type Department Care Team ([facility] st Contact Info) Description 09/03/2024 10:00 AM EST Office Visit [facility] ADULT [facility] [address] [place], [place] [phone] Nirmal Odell, LISA [address] [place], [place] [phone] Severe dental caries (Primary Dx) Social History [...] 09/03/24, Timeout Time: 1011 (Yomi #20,22) Location: [facility] Tooth: #20 Procedure: Extraction Verified the above with patient, assistant dean of students, and provider. Confirmed via patient's chart, intraorally and by radiographs. Lobsterman: not applicable Chief Complaint Patient presents with Filling Patient presents today for valeriano BACON Medical Hx: Vitals: Blood pressure 122/86. Past Medical History: Diagnosis Date Diabetes mellitus ([facility]) Hypertension Medications: Outpatient Encounter Medications as [...] PATIENT REQUEST. Sodium Fluoride 1.1 % cream Perry teeth for 2 minutes, morning and night. [...] alert, and oriented. [place]: #20,23, 24,25 restos Bean Picker Machine Operator: Flores Omalley Dentist: Nirmal Odell DMD documented in this encounter Plan of Treatment Upcoming Encounters Date Type Department Care Team (Late st Contact Info) Description 10/02/2024 9:30 AM EDT Office Visit [facility]ULT [facility] [address] [place] [address] Nirmal Odell DMD [address] [place] [address] Scheduled Orders Name Type Priority Associated Diagnoses Orde r Schedule 24 MFF(V) 24 MFF(V) RESTORATIVE - RESIN-BASED COMPOSITE RESTORATIONS - DIRECT - RESIN-BASED COMPOSITE - TWO SURFACES, ANTERIOR Dental [facility] 09/03/2024 25 MF 25 MF RESTORATIVE [...]
--- OUTSIDE RECORDS SUMMARY | 2024-09-18 16:03 | XMS_ITS | Clinical Summary ---
Author Organization [facility] it Address [address] [place] [address] Care Team Providers Care Small Engine Specialist Name Role Phone Diogo Wright MD Primary Care Provider [phone] Allergies Active Allergy Reactions Criticality Noted Date [...] s/p repair Anxiety 12/11/2015 DX:Anxiety Emphysema, unspecified ([facility]) 01/06 DX:Emphysema, unspecified ([facility]); COMMENT: per patient Obesity DX:Obesity COPD (chronic obstructive pu lmonary disease) ([facility]) DX:COPD (chronic obstructive pulmonary disease) ([facility]) Tobacco abuse DX:Tobacco abuse Type 2 diabetes mellitus ([facility]) DX:Type 2 diabetes mellitus (HCC) Vitamin D deficiency DX:Vitamin D deficiency Anxiety DX:Anxiety Hyperlipidemia DX:Hyperlipidemi a Family History Medical History Relation Name Comments Breast cancer Aunt paternal ?age Suicide Attempts Brother x 1 Throat cancer Father (+smoker), UNIFORM CAP OPERATOR D, HTN, liver transplant Heart failure Maternal [...] Results * Urine Albumin Creatinine Ratio (03/27/2020) [facility] Urine Albumin Creatinine Ratio abstracted Result [facility] Provider HEALTH MAINTENANCE Final Result * Annual BMP Blood Test (03/27/2020) [facility] Annual BMP Blood Test abstracted Result [facility] Provider HEALTH MAINTENANCE Final Result * (ABNORMAL) Hemoglobin A1c (03/27/2020) [facility] Hemoglobin A1C 7.2(A) <=6.5 % Blood Venous blood specimen / Unknown Result [facility] Provider LAB BLOOD ORDERABLES Celsa l Result * (ABNORMAL) Lipid panel (03/27/2020) [facility] LDL/HDL Ratio 9(A) 0 - 4 Triglycerides 388(A) 0 - 150 mg/dL Cholesterol 285(A) 0 - 200 mg/dL HDL 31(A) >=40 mg/dL LDL Cholesterol 177(A) 0 - 100 mg/dL Blood Venous blood specimen / Unknown Result [facility] Provider LAB BLOOD ORDERABLES Celsa l Result * HIV Screening (08/23/2018) [facility] HIV Screening abstracted Result [facility] Provider HEALTH MAINTENANCE Final Result * Hepatitis C Screening (08/23/2018) [facility] Hepatitis C Screening abstracted Result [facility] Provider HEALTH MAINTENANCE Final Result * Cervical Cancer Screening: HPV (02/09/2016) [facility] Cervical Cancer Screening: HPV negative, abstracted Result [facility] Provider HEALTH MAINTENANCE Final Result from Last 3 Months or Most Recently Relevant to Health Maintenance Care Teams Small Engine Specialist Relationship Specialty Start Date End Date Diogo Wright MD PCP - General Internal Medicine 03/12/21
--- OUTSIDE RECORDS SUMMARY | 2024-09-18 16:03 | XMS_ITS | Clinical Summary ---
Author Organization [employer] Address [address] [place] [address] 7 [place] [address] Care Team Providers Care Oil Rag Washer Name Role Phone Unavailable Primary Care Provider [...] Sodium Fluoride 1.1 % creamIndication s:Dental caries [place] teeth for 2 minutes, morning and night. [...] [facility] [address] [place] [address] Nirmal Odell DMD Severe dental caries (Primary Dx) 08/02/2024 8:30 AM EST Office Visit [facility] [address] [place] [address] Nirmal Odell DMD Dental caries (Primary Dx) 07/26/2024 8:00 AM EST Office Visit [facility] [address] [place] [address] Nirmal Odell DMD Periodontal disease (Primary Dx); Dental caries 07/25/2024 2:00 PM EST Office Visit [facility] [address] [place] [address] Mireya Cole Dental calculus (Primary Dx); Dental [...] Description 10/02/2024 9:30 AM EDT Office Visit [facility] [address] [place] [address] Nirmal Odell DMD [address] [place] [address] Health Maintenance Due Date Last Done Comments [...] AM EST from Last 3 Months Insurance [facility] STAND ADULT
--- OUTSIDE RECORDS SUMMARY | 2024-09-18 16:03 | XMS_ITS | Encounter Summary ---
Author Organization [facility] Address [address] [place] [address] Care Team Providers Care Medical Lab Assistant Name Role Phone Mara Mcelroy MD Primary Care Provider Diogo Peck MD Primary Care Provider [phone] [facility], Pcp Primary Care Provider Unavailabl e Reason for Referral * Non LEANDRO (Routine) - Authorized/Booked Specialty Diagnoses / Procedures Referred By Contfiliberto t Referred To Contact General Surgery Diagnoses Umbilical hernia without obstruction and without gangrene Procedures REFERRAL TO GENERAL SURGERY (IN NETWORK) Arlin Hoover PA-C [address] [place] [address] Gen Surg/[place] [address] [address] Referral ID Status Reason Start Date Expiration Date V isits Requested Visits Authorized [id number] Authorized/B ooked 12/11/2019 12/10/2020 1 1 Encounter Details Date Type Department Care Team Description 12/11/2019 Orders Only Adult Medicine [address] [address] Arlin Hoover PA-C [address] [place] [phone] Umbilical hernia without obstruction and without gangrene [...] Primary documented in this encounter Care Teams Medical Lab Assistant Relationship Specialty Start Date End Date Mara Mcelroy MD PCP - General Internal Medicine 08/20/15 10/12/20 Diogo Wright MD [address] [place] [address] PCP - General Internal Medicine 10/13/20 11/01/21 [place] [address] PCP - General Internal Medicine 11/02/21 documented as of this encounter
--- OUTSIDE RECORDS SUMMARY | 2024-09-18 16:04 | XMS_ITS | Encounter Summary ---
Author Organization [facility] Address [address] [place] [address] Care Team Providers Care Chauffeur Name Role Phone Mara Mcelroy MD Primary Care Provider Diogo Peck MD Primary Care Provider [phone] [facility], Pcp Primary Care Provider Unavailabl e Reason for Visit * Reason Onset Date Comments Prior Authorization 08/14/2020 advair Encounter Details Date Type Department Care Team Description 08/14/2020 Telephone Pulmonology - Catherine [address] [facility] [address] [place] [phone] Rick Sanchez MD [address] [facility] [address] [place] [phone] Prior Authorization (advair) Social History Tobacco [...] M.A. - 08/18/2020 10:44 AM EST Called [facility] and spoke with Javid to see if [...] My Meds request: Yes -- Shafer Code [id number] Name of Medication ADVAIR Dose of Medication 500-50MCG What is the RX # from the faxed refill? How does patient take this med? INHALE What Pharmacy did the fax come from: [facility] fax #: [facility] Information from fax: What Prescription Plan does the patient have? BIN/PCN if applicable: Cardholder ID: Person Code: Relationship Code: Help desk phone: [phone] documented in this encounter Plan of Treatment Not on file documented as of this encounter Visit Diagnoses Not on filedocumented in this encounter Care Teams Chauffeur Relationship Specialty Start Date End Date Mara Mcelroy MD PCP - General Internal Medicine 08/20/15 10/12/20 Diogo Wright MD [address] [place] [address] PCP - General Internal Medicine 10/13/20 11/01/21 [facility], [address] [address] PCP - General Internal Medicine 11/02/21 documented as of this encounter
--- OUTSIDE RECORDS SUMMARY | 2024-09-18 16:04 | XMS_ITS | Clinical Summary ---
Author Organization [facility] Address [address] [place] [address] Care Team Providers Care Gaming Worker Name Role Phone Diogo Wright MD Primary Care Provider [phone] Allergies Active Allergy Reactions Criticality Noted Date [...] age to complete this topic Care Teams Gaming Worker Relationship Specialty Start Date End Date Diogo Wright MD PCP - General Internal Medicine 03/12/21
--- OUTSIDE RECORDS SUMMARY | 2024-09-18 16:04 | XMS_ITS | Encounter Summary ---
Author Organization [facility] Address [address] [place] [address] Care Team Providers Care Board Certified Family Physician Name Role Phone Mara Mcelroy MD Primary Care Provider Diogo Peck MD Primary Care Provider [phone] [facility], Pcp [facility] Encounter Details Date Type Department Care Team Description 06/29/2018 Orders Only Medical Records [address] [place] [address] Rick Sanchez MD [address] [place] [phone] Social History Tobacco Use Types Packs/Day [...] on filedocumented in this encounter Care Teams Board Certified Family Physician Relationship Specialty Start Date End Date Mara Mcelroy MD PCP - General Internal Medicine 08/20/15 10/12/20 Diogo Wright MD [address] [place] [address] PCP - General Internal Medicine 10/13/20 11/01/21 [facility], Pcp [address] [place] [address] PCP - General Internal Medicine 11/02/21 documented as of this encounter
--- OUTSIDE RECORDS SUMMARY | 2024-09-18 16:04 | XMS_ITS | Encounter Summary ---
Author Organization [facility] Address [address] [place] [address] Care Team Providers Care Crop Scout Name Role Phone Mara Mcelroy MD Primary Care Provider Diogo Peck MD Primary Care Provider [phone] [facility], Pcp Primary Care Provider [facility] saige Encounter Details Date Type Department Care Team Description 05/11/2020 Agronomy Location Manager Report Medical Records [address] [place] [address] Social History Tobacco Use Types Packs/Day Years [...] on filedocumented in this encounter Care Teams Crop Scout Relationship Specialty Start Date End Date Mara Mcelroy MD PCP - General Internal Medicine 08/20/15 10/12/20 Diogo Wright MD [address] [place] [address] PCP - General Internal Medicine 10/13/20 11/01/21 [facility], Pcp [address] [place] [address] PCP - General Internal Medicine 11/02/21 documented as of this encounter
--- OUTSIDE RECORDS SUMMARY | 2024-09-18 16:04 | XMS_ITS | Data Portability ---
Author Organization [place] [facility], Allergy Address [address] [place] [address] Assessment Encounter Date Assessment Date Assessment LastModified [...] disequilibrium is coming from an otologic source. Not available 12/29/2023 16:52:35 Plan of Treatment Reminders Order Date Submit Date Provider Last Modified By Organization Details Last Modified Time Details Appointments None recorded. Lab None recorded. Referral neurologist referral 2023 024 [email or web address] 2 [facility] Neurology Scheduling, [address] [place], [address], 4 10:41:05 Procedures None recorded. Surgeries None [...] Organization Details Recorded Time Abnormal auditory perception 67373854 Active 2023 Savannah chicas [place] - [facility] 16:32:03 Migraine without aura 52532505 Active 2023 JUNIE RICH PA-C [address] [place] [address],[address], [address], [facility] 4 16:52:39 Dizziness and giddiness 188217721 Active 2023 JUNIE RICH PA-C [address] [place] [address],[address], [address], [facility] 4 16:52:43 Bilateral earache 290959657 Active 2023 JUNIE RICH PA-C [address] [place] [address],[address], [address], [facility] 4 16:52:54 Bilateral temporomand ibular joint pain 2845483223888 9105 Active 2023 JUNIE RICH PA-C [address] [place] [address], [address] [place] [address], [phone], [facility] 4 16:53:00 Problem Notes None recorded. Procedures Surgical History Date Name Laterality Status Provider Name and Address Organization Details Recorded Time Comp Audio with Tymps (61726 & 10527) completed Savannah Goldsmith [place] - [facility] 12/29/2023 16:30:31 Cerumen removal without microscope left completed JUNIE RICH PA-C [address] [place] [address],[place] [address], [place], [address], [facility] - [facility] 12/29/2023 14:56:07 Imaging Results Imaging Date [...] Note 3283 JUNIE RICH PA-C [facility] [address] [address] 12/29/2023 13:49:33 12/29/2023 16:39:20 Abnormal auditory perception 45190652 H93.299 Audiologic al evaluation results: Right ear: [...] a hermetic seal}} Migraine without aura 56 544188 G43.009 Dizziness and giddiness 465770533 R42 Bilateral earache 487794 003 H92.03 Bilateral temporomandibular joint pain 2639703626 6697471 M26.623 Health Concerns Section Related Observation LastModified by Organization Detai ls LastModified Time None Recorded Concern Status LastModified by Organization Details LastModified Time None Recorded Advance Directives Directive None Recorded Payers Encounter Date Sequence Insurance Name Policy Number Policy Rodriguez Covered Member ID Rodriguez Member ID Guarantor Name 12/29/2023 1 [facility] NET PLAN (MEDICAID HMO) BURTON Quiñonez [id number] Mckenzie Quiñonez Notes Date Note Type Note [...] in several years. JUNIE RICH PA-C [address] [facility],[place] [address], [place], [address], [place] - [facility] 12/29/2023 16:53:54 OBGyn Episode No OBEpisode recorded.
--- OUTSIDE RECORDS SUMMARY | 2024-09-18 16:04 | XMS_ITS | Encounter Summary ---
Author Organization [facility] Address [address] [place] [address] Care Team Providers Care Childcare Worker Name Role Phone Diogo Wright MD Primary Care Provider [phone] [facility], Pcp Primary Care Provider Unavailabl e Encounter Details Date Type Department Care Team Description 04/06/2021 Hospital Medical Records [address] [place] [address] Kaushik Gómez MD Social History Tobacco Use [...] on filedocumented in this encounter Care Teams Childcare Worker Relationship Specialty Start Date End Date Diogo Wright MD [address] [place] [address] PCP - General Internal Medicine 10/13/20 11/01/21 [facility], Pcp [address] [place] [address] PCP - General Internal Medicine 11/02/21 documented as of this encounter
--- OUTSIDE RECORDS SUMMARY | 2024-09-18 16:04 | XMS_ITS | Encounter Summary ---
Author Organization [facility] Address [address] [place] [address] Care Team Providers Care Polysilicon Preparation Worker Name Role Phone Mara Mcelroy MD Primary Care Provider Diogo Peck MD Primary Care Provider [phone] [facility], Pcp [facility] Encounter Details Date Type Department Care Team Description 02/05/2020 Chief Passenger Ship Steward/Stewardess Report Medical Records [address] [place] [address] [facility] Social History Tobacco Use Types [...] on filedocumented in this encounter Care Teams Polysilicon Preparation Worker Relationship Specialty Start Date End Date Mara Mcelroy MD PCP - General Internal Medicine 08/20/15 10/12/20 Diogo Wright MD [address] [place] [address] PCP - General Internal Medicine 10/13/20 11/01/21 [facility], Pcp [address] [place] [address] PCP - General Internal Medicine 11/02/21 documented as of this encounter
--- OUTSIDE RECORDS SUMMARY | 2024-09-18 16:04 | XMS_ITS | Encounter Summary ---
Author Organization [facility] Address [address] [place] [address] Care Team Providers Care Ship Harbor Pilot Name Role Phone Mara Mcelroy MD Primary Care Provider Diogo Peck MD Primary Care Provider [phone] [facility], Pcp Primary Care Provider Unavailabl e Reason for Referral * EXTERNAL (Routine) - YAEL Not Received/Patient Declined Specialty Diagnoses / Procedures Referred By Alfred t Referred To Contact Pulmonology Procedures REFERRAL TO PULMONOLOGY Mara Mcelroy MD [address] [place] [address] [facility] [address] [place] [address] Referral ID Status Reason Start Date Expiration Date V isits Requested Visits Authorized SEE NOTE YAEL Not Received/Kristi ent Declined 04/12/2017 07/13/2017 1 1 Reason for Visit * Reason Onset Date Comments Creative Coordinator Feedback 04/12/2017 Dr. Brown Encounter Details Date Type Department Care Team Description 04/12/2017 Telephone Medicine/Pediatrics - [address] [address] Mara Mcelroy MD Creative Coordinator Feedback (Dr. Brown) Social History Tobacco Use [...] / Plan: MEDICAID PCC / Product Type:MEDICAID [id number] Effective 04/23/09: BCBS will not retro referral [...] insurance must be obtained and registered in [facility] or their referral can not be [...] YES Is this visit:Initial Visit Address of Specialist:[address] [place] [address], [address], [place], [place] Phone # of Specialist:[phone] Fax #: (if applicable): Does patient have an appointment scheduled?: NO Date of appointment- (including a retro-request): TBD Is this appointment related to: Not MVA, WC or Surgery related documented in this encounter Plan of Treatment Not on file documented as of this encounter Visit Diagnoses Not on filedocumented in this encounter Care Teams Ship Harbor Pilot Relationship Specialty Start Date End Date Mara Mcelroy MD PCP - General Internal Medicine 08/20/15 10/12/20 Diogo Wright MD [address] [place] [address] PCP - General Internal Medicine 10/13/20 11/01/21 [facility], [place] [address] PCP - General Internal Medicine 11/02/21 documented as of this encounter
--- OUTSIDE RECORDS SUMMARY | 2024-09-18 16:04 | XMS_ITS | Encounter Summary ---
Author Organization [facility] Address [address] [place] [address] Care Team Providers Care Transitions Manager Name Role Phone Diogo Wright MD Primary Care Provider [phone] [facility], Pcp Primary Care Provider Unavailabl e Encounter Details Date Type Department Care Team Description 02/08/2021 Brancher Report Medical Records [address] [place] [address] Helder Pablo MD Social History Tobacco Use [...] on filedocumented in this encounter Care Teams Transitions Manager Relationship Specialty Start Date End Date Diogo Wright MD [address] [place] [address] PCP - General Internal Medicine 10/13/20 11/01/21 [facility], Pcp [address] [place] [address] PCP - General Internal Medicine 11/02/21 documented as of this encounter
--- OUTSIDE RECORDS SUMMARY | 2024-09-18 16:04 | XMS_ITS | Encounter Summary ---
Author Organization [facility] Address [address] [place] [address] Care Team Providers Care Diversified Crops Ii Farmworker Name Role Phone Mara Mcelroy MD Primary Care Provider Diogo Peck MD Primary Care Provider [facility], Pcp Primary Care Provider [facility] saige Encounter Details Date Type Department Care Team Description 09/03/2015 Telephone Medicine/Pediatrics - [address] [phone] Maurice Johnson PA-C Social History Tobacco Use [...] on filedocumented in this encounter Care Teams Diversified Crops Ii Farmworker Relationship Specialty Start Date End Date Mara Mcelroy MD PCP - General Internal Medicine 08/20/15 10/12/20 Diogo Wright MD [address] [place] [address] PCP - General Internal Medicine 10/13/20 11/01/21 [facility], Pcp [address] [place] [address] PCP - General Internal Medicine 11/02/21 documented as of this encounter
--- OUTSIDE RECORDS SUMMARY | 2024-09-18 16:04 | XMS_ITS | Encounter Summary ---
Author Organization [facility] Address [address] [facility] [place] [address] Care Team Providers Care Nuclear Reactor Technician Name Role Phone Diogo Wright MD Primary Care Provider [phone] [facility]ly [facility], Pcp Primary Care Provider Unavailabl e Encounter Details Date Type Department Care Team Description 05/27/2021 Core Dropper Report Medical Records [address] [place] [address] Abstract, Provider Social History Tobacco Use Types [...] filedocumented in this encounter Care Teams Nuclear Reactor Technician Relationship Specialty Start Date End Date Diogo Wright MD [address] [place] [address] [phone] PCP - General Internal Medicine 10/13/20 11/01/21 [facility], Pcp [address] [place] [address] PCP - General Internal Medicine 11/02/21 documented as of this encounter
--- OUTSIDE RECORDS SUMMARY | 2024-09-18 16:04 | XMS_ITS | Encounter Summary ---
Author Organization [facility] Address [address] [place] [address] Care Team Providers Care College Service Officer Name Role Phone Mara Mcelroy MD Primary Care Provider Diogo Peck MD Primary Care Provider [phone] [facility], [facility], Pcp [facility] Encounter Details Date Type Department Care Team Description 08/31/2018 Release of Information Medical Records [address] [place] [address] Abstract, Provider Social History Tobacco Use Types [...] on filedocumented in this encounter Care Teams College Service Officer Relationship Specialty Start Date End Date Mara Mcelroy MD PCP - General Internal Medicine 08/20/15 10/12/20 Diogo Wright MD [address] [place] [address] PCP - General Internal Medicine 10/13/20 11/01/21 [facility], [facility], Pcp [address] [place] [address] PCP - General Internal Medicine 11/02/21 documented as of this encounter
--- OUTSIDE RECORDS SUMMARY | 2024-09-18 16:04 | XMS_ITS | Encounter Summary ---
Author Organization [facility] Address [address] [place] [address] Care Team Providers Care Wrapper Stemmer Operator Name Role Phone Mara Mcelroy MD Primary Care Provider Diogo Peck MD Primary Care Provider [phone] [facility], Pcp [facility] Encounter Details Date Type Department Care Team Description 09/18/2020 Old Medical Records Medical Records [address] [place] [address] Abstract, Provider Social History Tobacco Use Types [...] on filedocumented in this encounter Care Teams Wrapper Stemmer Operator Relationship Specialty Start Date End Date Mara Mcelroy MD PCP - General Internal Medicine 08/20/15 10/12/20 Digoo Wright MD [address] [place] [address] [phone] PCP - General Internal Medicine 10/13/20 11/01/21 [facility], Pcp [address] [place] [address] 317[address] PCP - General Internal Medicine 11/02/21 documented as of this encounter
--- OUTSIDE RECORDS SUMMARY | 2024-09-18 16:04 | XMS_ITS | Encounter Summary ---
Author Organization [facility] Address [address] [place] [address] Care Team Providers Care Saddle Stitch Operator Name Role Phone Mara Mcelroy MD Primary Care Provider Diogo Peck MD Primary Care Provider [phone] [facility], Pcp Primary Care Provider [facility] saige Encounter Details Date Type Department Care Team Description 01/27/2017 Telephone Medicine/Pediatrics - [address] [address] Mara Mcelroy MD Social History Tobacco Use [...] on filedocumented in this encounter Care Teams Saddle Stitch Operator Relationship Specialty Start Date End Date Mara Mcelroy MD PCP - General Internal Medicine 08/20/15 10/12/20 Diogo Wright MD [address] [place] [address] PCP - General Internal Medicine 10/13/20 11/01/21 [facility], Pcp [address] [place] [address] PCP - General Internal Medicine 11/02/21 documented as of this encounter
--- OUTSIDE RECORDS SUMMARY | 2024-09-18 16:04 | XMS_ITS | Encounter Summary ---
Author Organization [facility] Address [address] [place] [address] Care Team Providers Care Outside Physical Damage Appraiser Name Role Phone Mara Mcelroy MD Primary Care Provider Diogo Peck MD Primary Care Provider [phone] [facility], Pcp Primary Care Provider [facility] saige Encounter Details Date Type Department Care Team Description 12/11/2015 Controlled Substance Contract with Plan Medical Records [address] [place] [address] Abstract, Provider Social History Tobacco Use Types [...] on filedocumented in this encounter Care Teams Outside Physical Damage Appraiser Relationship Specialty Start Date End Date Mara Mcelroy MD PCP - General Internal Medicine 08/20/15 10/12/20 Diogo Wright MD [address] [place] [address] [phone] PCP - General Internal Medicine 10/13/20 11/01/21 [facility], Pcp [address] [place] [address] PCP - General Internal Medicine 11/02/21 documented as of this encounter
--- OUTSIDE RECORDS SUMMARY | 2024-09-18 16:04 | XMS_ITS | Clinical Summary ---
Author Organization [facility] Address [address] [place] [address] Care Team Providers Care Fruit Dumper Name Role Phone Community, Pcp Primary Care [...] daily. 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
--- OUTSIDE RECORDS SUMMARY | 2024-09-18 16:04 | XMS_ITS | Encounter Summary ---
Author Organization [facility] Address [address] [place] [address] Care Team Providers Care Cotton Stripper Name Role Phone Mara Mcelroy MD Primary Care Provider Diogo Peck MD Primary Care Provider [phone] [facility], Pcp Primary [facility] Reason for Visit * Reason Onset Date Comments Cough 04/24/2019 Fever 04/24/2019 Encounter Details Date Type Department Care Team Description 04/24/2019 Telephone Medicine/Pediatrics - [address] [address] Mara Mcelroy MD Cough; Fever Social History [...] 2:09 PM EDT Unable to leave message [employer] full * Telephone Encounter - Claire Randall - 04/24/2019 1:02 PM EDT Symptoms patient is having: Patient c/o fever, body aches, chills and a really bad cough. If pain or injury related was it due to an accident at work or from a motor vehicle accident? NO If yes, gather 3rd libertarian insurance information Date of accident/Injury: How long has patient had these symptoms?: past 3 days PCP: Mara Segura Payor: [facility] [employer] FFS / Plan: [facility] [employer] / Product Type: MEDICAID RISK documented in this encounter Plan of Treatment Not on file documented as of this encounter Visit Diagnoses Not on filedocumented in this encounter Care Teams Cotton Stripper Relationship Specialty Start Date End Date Mara Mcelroy MD PCP - General Internal Medicine 08/20/15 10/12/20 Diogo Wright MD [address] [place] [address] PCP - General Internal Medicine 10/13/20 11/01/21 [facility], [address] [address] PCP - General Internal Medicine 11/02/21 documented as of this encounter
--- OUTSIDE RECORDS SUMMARY | 2024-09-18 16:04 | XMS_ITS | Encounter Summary ---
Author Organization [facility] Address [address] [place] [address] Care Team Providers Care Online Activist Name Role Phone Mara Mcelroy MD Primary Care Provider Diogo Peck MD Primary Care Provider [phone] [facility], Pcp Primary Care Provider [facility] saige Encounter Details Date Type Department Care Team Description 04/23/2018 Hospital Medical Records [address] [place] [address] Sabas Rodriguez MD Social History Tobacco Use [...] on filedocumented in this encounter Care Teams Online Activist Relationship Specialty Start Date End Date Mara Mcelroy MD PCP - General Internal Medicine 08/20/15 10/12/20 Diogo Wright MD [address] [place] [address] PCP - General Internal Medicine 10/13/20 11/01/21 [facility], Pcp [address] [place] [address] PCP - General Internal Medicine 11/02/21 documented as of this encounter
--- OUTSIDE RECORDS SUMMARY | 2024-09-18 16:04 | XMS_ITS | Encounter Summary ---
Author Organization [facility] Address [address] [place] [address] Care Team Providers Care Dairy Farm Supervisor Name Role Phone Mara Mcelroy MD Primary Care Provider Diogo Pcek MD Primary Care Provider [phone] [facility], Pcp Primary Care Provider [facility] Reason for Visit * Reason Onset Date Comments Prior Authorization 09/23/2020 [employer] Encounter Details Date Type Department Care Team Description 09/23/2020 Telephone Pulmonology - [place] [address] [facility] [address] [place] [phone] Rick Sanchez MD [address] [facility] [address] [place] [phone] Prior Authorization ([employer] ) Social History [...] Is this a Cover My Meds request: [place] of Medication Fluticasone salmeterol aerosol powder Dose of Medication 500-50mcg /dose What is the RX # from the faxed refill? N/a How does patient take this med? N/a What Pharmacy did the fax come from: [facility] fax #: [phone] [employer] Information from fax: What Prescription Plan does the patient have? [employer] BIN/PCN if applicable: Cardholder ID: Person Code: Relationship Code: Help desk phone: documented in this encounter Plan of Treatment Not on file documented as of this encounter Visit Diagnoses Not on filedocumented in this encounter Care Teams Dairy Farm Supervisor Relationship Specialty Start Date End Date Mara Mcelroy MD PCP - General Internal Medicine 08/20/15 10/12/20 Diogo Wright MD [address] [place] [address] PCP - General Internal Medicine 10/13/20 11/01/21 [facility], [address] [address] PCP - General Internal Medicine 11/02/21 documented as of this encounter
--- OUTSIDE RECORDS SUMMARY | 2024-09-18 16:04 | XMS_ITS | Encounter Summary ---
Author Organization [facility] Address [address] [place] [address] Care Team Providers Care Director Of Testing Name Role Phone Diogo Wright MD Primary Care Provider [phone] [facility], Pcp Primary Care Provider Unavailabl e Reason for Visit * Reason Onset Date Comments VNA Call 07/19/2021 Encounter Details Date Type Department Care Team Description 07/19/2021 Telephone Adult Medicine [facility] [address] [place] [address] [phone] Diogo Wright MD [address] [place] [address] [phone] VNA Call Social History Tobacco Use Types [...] VNA CALL Which VNA office is calling? [facility] Full name of caller: Meme The caller is A nurse Is the caller at the patients home?: NO Reason for call: Meme is calling as an FYI to let us know that the patient was admitted into [facility] on 07/16/21 and was discharged on [...] on filedocumented in this encounter Care Teams Director Of Testing Relationship Specialty Start Date End Date Diogo Wright MD [address] [place] [address] PCP - General Internal Medicine 10/13/20 11/01/21 [place] [address] PCP - General Internal Medicine 11/02/21 documented as of this encounter
--- OUTSIDE RECORDS SUMMARY | 2024-09-18 16:04 | XMS_ITS | Encounter Summary ---
Author Organization [facility] Address [address] [place] [address] Care Team Providers Care Transfer Table Operator Helper Name Role Phone Mara Mcelroy MD Primary Care Provider Diogo Peck MD Primary Care Provider [phone] [facility], Pcp Primary Care Provider [facility] saige Encounter Details Date Type Department Care Team Description 06/16/2020 Transfer Records Medical Records [address] [place] [address] Abstract, Provider Social History Tobacco Use Types [...] on filedocumented in this encounter Care Teams Transfer Table Operator Helper Relationship Specialty Start Date End Date Mara Mcelroy MD PCP - General Internal Medicine 08/20/15 10/12/20 Diogo Wright MD [address] [place] [address] PCP - General Internal Medicine 10/13/20 11/01/21 [facility], Pcp [address] [place] [address] PCP - General Internal Medicine 11/02/21 documented as of this encounter
--- OUTSIDE RECORDS SUMMARY | 2024-09-18 16:04 | XMS_ITS | Encounter Summary ---
Author Organization [facility] Address [address] [place] [address] Care Team Providers Care Research Subject Name Role Phone Mara Mcelroy MD Primary Care Provider Diogo Peck MD Primary Care Provider [phone] [facility], Pcp Primary Care Provider [facility] Encounter Details Date Type Department Care Team Description 04/25/2019 Night Triage Doc Medical Records [address] [place] [address] Abstract, Provider Social History Tobacco Use Types [...] on filedocumented in this encounter Care Teams Research Subject Relationship Specialty Start Date End Date Mara Mcelroy MD PCP - General Internal Medicine 08/20/15 10/12/20 Diogo Wright MD [address] [place] [address] PCP - General Internal Medicine 10/13/20 11/01/21 [facility], Pcp [address] [place] [address] PCP - General Internal Medicine 11/02/21 documented as of this encounter
== END 2024-09-18 14:08 | disposition home or self-care (01) ==
PROVIDERS: PCP Physician Assistant; Visit Provider Physician Assistant
DX: Z00.00 Encounter for general adult medical examination without abnormal findings (principal); E11.65 Type 2 diabetes mellitus with hyperglycemia; J43.2 Centrilobular emphysema; K43.2 Incisional hernia without obstruction or gangrene; E78.1 Pure hyperglyceridemia; F17.210 Nicotine dependence, cigarettes, uncomplicated; H81.13 Benign paroxysmal vertigo, bilateral

== ENCOUNTER → 2024-09-18 13:04 | Outpatient (BNVA) | payer OTHER, SELFPAY | PROVIDERS: PCP Physician Assistant; Visit Provider Physician Assistant | DX: Z00.00 Encounter for general adult medical examination without abnormal findings (principal); K43.2 Incisional hernia without obstruction or gangrene; E11.65 Type 2 diabetes mellitus with hyperglycemia; E78.1 Pure hyperglyceridemia; H81.13 Benign paroxysmal vertigo, bilateral; J43.2 Centrilobular emphysema; F17.200 Nicotine dependence, unspecified, uncomplicated; Z71.6 Tobacco abuse counseling | CPT/HCPCS: 96127; 99396 ==

== ENCOUNTER 2024-10-07 12:46 | Outpatient (REF) | payer OTHER, SELFPAY ==
--- NOTE | ~2024-10-07 | US_ITS ---
CLINICAL HISTORY: N93.9 - Abnormal uterine and vaginal bleeding, unspecified US pelvis: Transabdominal and Transvaginal with ovarian color Doppler: Comparison: Ultrasound 01/17/2022. CT 08/1923 Findings: The uterus measures 11.6 cm in length Endometrial thickness is 10 mm The RIGHT ovary measures 1.8 x 1.5 x 1.8 cm The LEFT ovary measures 3.9 x 2.6 x 2.8 cm There is a 2.2 cm non septated left ovarian cyst Bilateral ovarian color Doppler blood flow. No solid ovarian masses. No free fluid Impression: Enlarged uterus with no focal masses. This document has been electronically signed by: Phani Joya MD on 10/08/2024 15:50:00
--- OUTSIDE RECORDS SUMMARY | 2024-10-07 14:48 | XMS_ITS | Encounter Summary ---
Author Organization [facility] Address [address] [place] [address] Care Team Providers Care Baffle Installer Name Role Phone Mara Mcelroy MD Primary Care Provider Diogo Peck MD Primary Care Provider [phone] [facility] Encounter Details Date Type Department Care Team Description 09/18/2020 Old Medical Records Medical Records [address] [place] [address] Abstract, Provider Social History Tobacco Use Types [...] on filedocumented in this encounter Care Teams Baffle Installer Relationship Specialty Start Date End Date Mara Mcelroy MD PCP - General Internal Medicine 08/20/15 10/12/20 Diogo Wright MD [address] [place] [address] [phone] PCP - General Internal Medicine 10/13/20 11/01/21 [facility] Pcp [address] [place] [address] PCP - General Internal Medicine 11/02/21 documented as of this encounter
--- OUTSIDE RECORDS SUMMARY | 2024-10-07 14:48 | XMS_ITS | Clinical Summary ---
Author Organization [facility] Address [address] [place] [address] Care Team Providers Care Sand Technician Name Role Phone Diogo Wright MD Primary Care Provider [phone] Allergies Active Allergy Reactions Criticality Noted Date [...] s/p repair Anxiety 12/11/2015 DX:Anxiety Emphysema, unspecified ([facility]) 01/06 DX:Emphysema, unspecified ([facility]); COMMENT: per patient Obesity DX:Obesity COPD (chronic obstructive pu lmonary disease) ([facility]) DX:COPD (chronic obstructive pulmonary disease) ([facility]) Tobacco abuse DX:Tobacco abuse Type 2 diabetes mellitus ([facility]) DX:Type 2 diabetes mellitus (HCC) Vitamin D deficiency DX:Vitamin D deficiency Anxiety DX:Anxiety Hyperlipidemia DX:Hyperlipidemi a Family History Medical History Relation Name Comments Breast cancer Aunt paternal ?age Suicide Attempts Brother x 1 Throat cancer Father (+smoker), BREAKER OFF D, HTN, liver transplant Heart failure Maternal [...] Results * Urine Albumin Creatinine Ratio (03/27/2020) [facility] Urine Albumin Creatinine Ratio abstracted Result [facility] Provider HEALTH MAINTENANCE Final Result * Annual BMP Blood Test (03/27/2020) [facility] Annual BMP Blood Test abstracted Result [facility] Provider HEALTH MAINTENANCE Final Result * (ABNORMAL) Hemoglobin A1c (03/27/2020) [facility] Hemoglobin A1C 7.2(A) <=6.5 % Blood Venous blood specimen / Unknown Result [facility] Provider LAB BLOOD ORDERABLES Celsa l Result * (ABNORMAL) Lipid panel (03/27/2020) [facility] LDL/HDL Ratio 9(A) 0 - 4 Triglycerides 388(A) 0 - 150 mg/dL Cholesterol 285(A) 0 - 200 mg/dL HDL 31(A) >=40 mg/dL LDL Cholesterol 177(A) 0 - 100 mg/dL Blood Venous blood specimen / Unknown Result [facility] Provider LAB BLOOD ORDERABLES Celsa l Result * HIV Screening (08/23/2018) [facility] HIV Screening abstracted Result [facility] Provider HEALTH MAINTENANCE Final Result * Hepatitis C Screening (08/23/2018) [facility] Hepatitis C Screening abstracted Result [facility] Provider HEALTH MAINTENANCE Final Result * Cervical Cancer Screening: HPV (02/09/2016) [facility] Cervical Cancer Screening: HPV negative, abstracted Result [facility] Provider HEALTH MAINTENANCE Final Result from Last 3 Months or Most Recently Relevant to Health Maintenance Care Teams Sand Technician Relationship Specialty Start Date End Date Diogo Wright MD PCP - General Internal Medicine 03/12/21
--- OUTSIDE RECORDS SUMMARY | 2024-10-07 14:48 | XMS_ITS | Encounter Summary ---
Author Organization [facility] Address [address] [place] [address] Care Team Providers Care Cabinet And Trim Installer Name Role Phone Mara Mcelroy MD Primary Care Provider Diogo Peck MD Primary Care Provider [facility], Pcp Primary Care Provider [facility] saige Encounter Details Date Type Department Care Team Description 09/03/2015 Telephone Medicine/Pediatrics - [address] [address] Maurice Johnson PA-C Social History Tobacco Use [...] on filedocumented in this encounter Care Teams Cabinet And Trim Installer Relationship Specialty Start Date End Date Mara Mcelroy MD PCP - General Internal Medicine 08/20/15 10/12/20 Diogo Wright MD [address] [place] [address] PCP - General Internal Medicine 10/13/20 11/01/21 [facility], Pcp [address] [place] [address] PCP - General Internal Medicine 11/02/21 documented as of this encounter
--- OUTSIDE RECORDS SUMMARY | 2024-10-07 14:48 | XMS_ITS | Encounter Summary ---
Author Organization [facility] Address [address] [place] [address] Care Team Providers Care Tipple Tender Name Role Phone Mara Mcelroy MD Primary Care Provider Diogo Peck MD Primary Care Provider [phone] [facility], Pcp Primary [facility] Encounter Details Date Type Department Care Team Description 03/18/2020 Counseling Center Manager Report Medical Records [address] [place] [address] [facility] Social History Tobacco Use Types Packs/Day [...] on filedocumented in this encounter Care Teams Tipple Tender Relationship Specialty Start Date End Date Mara Mcelroy MD PCP - General Internal Medicine 08/20/15 10/12/20 Diogo Wright MD [address] [place] [address] PCP - General Internal Medicine 10/13/20 11/01/21 [facility], Pcp [address] [place] [address] PCP - General Internal Medicine 11/02/21 documented as of this encounter
--- OUTSIDE RECORDS SUMMARY | 2024-10-07 14:48 | XMS_ITS | Encounter Summary ---
Author Organization [facility] Address [address] [facility] [place] [address] Care Team Providers Care Boring Mill Set Up Operator Vertical Name Role Phone Mara Mcelroy MD Primary Care Provider Diogo Peck MD Primary Care Provider [phone] [facility], Pcp [facility] Encounter Details Date Type Department Care Team Description 10/19/2015 Release of Information Medical Records [address] [place] [address] Abstract, Provider Social History Tobacco Use Types [...] on filedocumented in this encounter Care Teams Boring Mill Set Up Operator Vertical Relationship Specialty Start Date End Date Mara Mcelroy MD PCP - General Internal Medicine 08/20/15 10/12/20 Diogo Wright MD [address] [place] [address] PCP - General Internal Medicine 10/13/20 11/01/21 [facility], Pcp [address] [place] [address] PCP - General Internal Medicine 11/02/21 documented as of this encounter
--- OUTSIDE RECORDS SUMMARY | 2024-10-07 14:48 | XMS_ITS | Encounter Summary ---
Author Organization [facility] Address [address] [place] [address] Care Team Providers Care Oil Burner Name Role Phone Mara Mcelroy MD Primary Care Provider Diogo Peck MD Primary Care Provider [phone] [facility], Pcp Primary Care [facility] Encounter Details Date Type Department Care Team Description 04/30/2018 [facility] Controlled Substance Contract Medical Records [address] [place] [address] Abstract, Provider Social History Tobacco Use Types [...] on filedocumented in this encounter Care Teams Oil Burner Relationship Specialty Start Date End Date Mara Mcelroy MD PCP - General Internal Medicine 08/20/15 10/12/20 Diogo Wright MD [address] [place] [address] [phone] PCP - General Internal Medicine 10/13/20 11/01/21 [facility], Pcp [address] [place] [address] PCP - General Internal Medicine 11/02/21 documented as of this encounter
--- OUTSIDE RECORDS SUMMARY | 2024-10-07 14:48 | XMS_ITS | Encounter Summary ---
Author Organization [facility] Address [address] [place] [address] Care Team Providers Care Student Truck Driver Name Role Phone Mara Mcelroy MD Primary Care Provider Diogo Peck MD Primary Care Provider [phone] [facility], Pcp Primary Care Provider [facility] Reason for Visit * Reason Onset Date Comments Prior Authorization 09/23/2020 Advair Encounter Details Date Type Department Care Team Description 09/23/2020 Telephone Pulmonology - [place] 175 [facility] [address] [place] [address] [phone] Rick Sanchez MD 175 [facility] [place] [address] [place] [phone] Prior Authorization (Advair ) Social History [...] Is this a Cover My Meds request: Moville of Medication Fluticasone salmeterol aerosol powder Dose of Medication 500-50mcg /dose What is the RX # from the faxed refill? N/a How does patient take this med? N/a What Pharmacy did the fax come from: [facility] fax #: [phone] [employer] Information from fax: What Prescription Plan does the patient have? Frevvo BIN/PCN if applicable: Cardholder ID: Person Code: Relationship Code: Help desk phone: documented in this encounter Plan of Treatment Not on file documented as of this encounter Visit Diagnoses Not on filedocumented in this encounter Care Teams Student Truck Driver Relationship Specialty Start Date End Date Mara Mcelroy MD PCP - General Internal Medicine 08/20/15 10/12/20 Diogo Wright MD [address] [place] [address] PCP - General Internal Medicine 10/13/20 11/01/21 [facility], [address] [address] PCP - General Internal Medicine 11/02/21 documented as of this encounter
--- OUTSIDE RECORDS SUMMARY | 2024-10-07 14:48 | XMS_ITS | Encounter Summary ---
Author Organization [facility] Address [address] [place] [address] Care Team Providers Care Allergy And Immunology Specialist Name Role Phone Mara Mcelroy MD Primary Care Provider Diogo Peck MD Primary Care Provider [facility], Pcp Primary Care Provider [facility] saige Encounter Details Date Type Department Care Team Description 01/15/2020 Stud Master/Mistress Report Medical Records [address] [place] [address] Aundrea Frost MD Social History Tobacco Use [...] on filedocumented in this encounter Care Teams Allergy And Immunology Specialist Relationship Specialty Start Date End Date Mara Mcelroy MD PCP - General Internal Medicine 08/20/15 10/12/20 Diogo Wright MD [address] [place] [address] [phone] PCP - General Internal Medicine 10/13/20 11/01/21 [facility], Pcp [address] [place] [address] PCP - General Internal Medicine 11/02/21 documented as of this encounter
--- OUTSIDE RECORDS SUMMARY | 2024-10-07 14:48 | XMS_ITS | Clinical Summary ---
Author Organization [facility] Address [address] [place] [address] 7 [place] [address] Care Team Providers Care Paper Winder Name Role Phone Unavailable Primary Care Provider [...] Sodium Fluoride 1.1 % creamIndication s:Dental caries Blaine teeth for 2 minutes, morning and night. [...] Encounters Date Type Department Care Team Description 10/02/2024 Telephone [facility] ADULT D[facility]AL [address] [place] [address] Nirmal Odell DMD 09/19/2024 Telephone [facility]ULT D[facility] [address] [place] [address] Nirmal Odell DMD 09/03/2024 10:00 AM EST Office Visit [facility]ULT D[facility] [address] [place] [address] Nirmal Odell DMD Severe dental caries (Primary Dx) 08/02/2024 8:30 AM EST Office Visit [facility]ULT D[facility] [address] [place] [address] Nirmal Odell DMD Dental caries (Primary Dx) 07/26/2024 8:00 AM EST Office Visit [facility]ULT D[facility] [address] [place] [address] Nirmal Odell DMD Periodontal disease (Primary Dx); Dental caries 07/25/2024 2:00 PM EST Office Visit [facility] ADULT DENTAL [address] [place] [address] Mireya Cole Dental calculus (Primary Dx); Dental [...] Care Team (Late st Contact Info) Description 01/23/2025 1:00 PM EDT Office Visit [facility] ADULT DENTAL [address] [place] [address] Mireya Cole Health Maintenance Due Date Last Done Comments [...] AM EST from Last 3 Months Insurance [facility] STAND ADULT
--- OUTSIDE RECORDS SUMMARY | 2024-10-07 14:48 | XMS_ITS | Encounter Summary ---
Author Organization [facility] Address [address] [place] [address] Care Team Providers Care Fitter Helper Name Role Phone Mara Mcelroy MD Primary Care Provider Diogo Peck MD Primary Care Provider [phone] [facility], Pcp Primary Care Provider Unavailabl e Reason for Visit * Reason Onset Date Comments Pre-visit Diabetes Lab Adult Medicine 05/22/2019 DM due 06/05/2019 at 845 Encounter Details Date Type Department Care Team Description 05/22/2019 Telephone Respiratory and Diabetes Medicaid/ACO Pharmacist [address] [place] [address] Mara Mcelroy MD Pre-visit Diabetes Lab Adult [...] ask that any orders entered by the [facility] Medicaid staff be associated with a diabetes diagnosis. You can use any diabetes diagnosis found on the problem list. Melinda Farmer Community Health Worker [facility] Plan [facility] [email or web address] [phone] documented in this encounter Plan of Treatment Not on file documented as of this encounter Results * MICROALBUMIN/CREATININE, URINE (07/29/2019 4:27 PM EST) CREATININE, RANDOM URINE 148 mg/dL 07/29/2019 8:01 PM EST [facility] MICROALBUMIN, RANDOM 10.0 0.0 - 29.0 mg/L 07/29/2019 8:08 PM EST [facility] MICROALB/CRE RATIO RANDOM 6.7 0.0 - 30.0 mg/G 07/29/2019 8:08 PM EST [facility] 07/29/2019 4:27 PM EST 07/29/2019 4:27 PM EST Mara Mcelroy MD LAB [facility] * (ABNORMAL) LIPID PROFILE (07/29/2019 4:14 PM [...] Mara Mcelroy MD LAB Performing Organization Address City/[facility]/ZIP Co de Phone Number [facility] * [...] EST [facility] Comment: If patient is -Mongolian, multiply result by 1.21 Chronic Kidney Disease: [...] Mara Mcelroy MD LAB Performing Organization Address City/[facility]/ZIP Co de Phone Number [facility] [employer] * (ABNORMAL) HEMOGLOBIN A1C (07/29/2019 4:14 PM EST) GLYCATED HEMOGLOBIN A1C 6.7(H) <6.5 % 07/30/2019 10:22 AM EST [facility] ESTIMATED AVERAGE GLUCOSE 146 mg/dL 07/30/2019 10:22 AM EST [facility] 07/29/2019 4:14 PM EST 07/29/2019 4:14 PM EST Mara Mcelroy MD LAB [facility] documented in this encounter Visit Diagnoses Diagnosis Type 2 diabetes mellitus without complication, with long-term current use of insulin (HCC)- Primary documented in this encounter Care Teams Fitter Helper Relationship Specialty Start Date End Date Mara Mcelroy MD PCP - General Internal Medicine 08/20/15 10/12/20 Diogo Wright MD [address] [place] [address] PCP - General Internal Medicine 10/13/20 11/01/21 [place] [address] PCP - General Internal Medicine 11/02/21 documented as of this encounter
--- OUTSIDE RECORDS SUMMARY | 2024-10-07 14:48 | XMS_ITS | Encounter Summary ---
Author Organization [facility] Address [address] [place] [address] Care Team Providers Care Machine Heel Seat Fitter Name Role Phone Mara Mcelroy MD Primary Care Provider Diogo Peck MD Primary Care Provider [phone] [facility], Pcp Primary Care Provider Unavailabl e Reason for Visit * Reason Onset Date Comments Prior Authorization 08/14/2020 advair Encounter Details Date Type Department Care Team Description 08/14/2020 Telephone Pulmonology - [place] 175 [facility] [address] [place] [phone] Rick Sanchez MD [address] [facility] [place] [address] [place] [phone] Prior Authorization (advair) Social History Tobacco [...] M.A. - 08/18/2020 10:44 AM EST Called [facility] and spoke with Javid to see [...] My Meds request: Yes -- Shafer Code [id number] Name of Medication ADVAIR Dose of Medication 500-50MCG What is the RX # from the faxed refill? How does patient take this med? INHALE What Pharmacy did the fax come from: [facility] fax #: [facility] Information from fax: What Prescription Plan does the patient have? BIN/PCN if applicable: Cardholder ID: Person Code: Relationship Code: Help desk phone: [phone] documented in this encounter Plan of Treatment Not on file documented as of this encounter Visit Diagnoses Not on filedocumented in this encounter Care Teams Machine Heel Seat Fitter Relationship Specialty Start Date End Date Mara Mcelroy MD PCP - General Internal Medicine 08/20/15 10/12/20 Diogo Wright MD [address] [place] [address] PCP - General Internal Medicine 10/13/20 11/01/21 [facility], [address] [address] PCP - General Internal Medicine 11/02/21 documented as of this encounter
--- OUTSIDE RECORDS SUMMARY | 2024-10-07 14:48 | XMS_ITS | Encounter Summary ---
Author Organization [facility] Address [address] [place] [address] Care Team Providers Care Director Regulatory Compliance Name Role Phone Mara Mcelroy MD Primary Care Provider Diogo Peck MD Primary Care Provider [phone] [facility], Pcp Primary Care Provider [facility] Encounter Details Date Type Department Care Team Description 10/06/2015 Hospital Medical Records [address] [place] [address] Fredrick Stokes MD [address] [place] [address] [phone] Social History Tobacco Use Types Packs/Day Years [...] filedocumented in this encounter Care Teams Director Regulatory Compliance Relationship Specialty Start Date End Date Mara Mcelroy MD PCP - General Internal Medicine 08/20/15 10/12/20 Diogo Wright MD [address] [place] [address] [phone] PCP - General Internal Medicine 10/13/20 11/01/21 [facility], Pcp [address] [place] [address] PCP - General Internal Medicine 11/02/21 documented as of this encounter
--- OUTSIDE RECORDS SUMMARY | 2024-10-07 14:48 | XMS_ITS | Encounter Summary ---
Author Organization [facility] Address [address] [place] [address] Care Team Providers Care Building Manager Name Role Phone Mara Mcelroy MD Primary Care Provider Diogo Peck MD Primary Care Provider [phone] [facility], Pcp Primary Care Provider [facility] saige Encounter Details Date Type Department Care Team Description 06/16/2020 Transfer Records Medical Records [address] [place] [address] Abstract, Provider Social History Tobacco Use Types [...] filedocumented in this encounter Care Teams Building Manager Relationship Specialty Start Date End Date Mara Mcelroy MD PCP - General Internal Medicine 08/20/15 10/12/20 Diogo Wright MD [address] [place] [address] PCP - General Internal Medicine 10/13/20 11/01/21 [facility], Pcp [address] [place] [address] PCP - General Internal Medicine 11/02/21 documented as of this encounter
--- OUTSIDE RECORDS SUMMARY | 2024-10-07 14:48 | XMS_ITS | Encounter Summary ---
Author Organization [facility] Address [address] [place] [address] Care Team Providers Care Instrument Maker Name Role Phone Mara Mcelroy MD Primary Care Provider Diogo Peck MD Primary Care Provider [phone] [facility], Pcp Primary Care Provider [facility] Reason for Referral * Non LEANDRO (Routine) - Authorized/Booked Specialty Diagnoses / Procedures Referred By Alfred t Referred To Contact General Surgery Procedures REFERRAL TO GENERAL SURGERY Maurice Johnson PA-C [address] [place] [address] Fredrick Stokes MD [address] [place] [address] Referral ID Status Reason Start Date Expiration Date V isits Requested Visits Authorized [id number] Authorized/B ooked 2015 08/25/2016 12 12 Encounter Details Date Type Department Care Team Description 2015 Orders Only Medicine/Pediatrics - [address] [phone] Maurice Johnson PA-C Social History Tobacco Use [...] on filedocumented in this encounter Care Teams Instrument Maker Relationship Specialty Start Date End Date Mara Mcelroy MD PCP - General Internal Medicine 08/20/15 10/12/20 Diogo Wright MD [address] [place] [address] PCP - General Internal Medicine 10/13/20 11/01/21 [facility], Pcp [address] [place] [address] PCP - General Internal Medicine 11/02/21 documented as of this encounter
--- OUTSIDE RECORDS SUMMARY | 2024-10-07 14:48 | XMS_ITS | Encounter Summary ---
Author Organization [facility] Address [address] [place] [address] Care Team Providers Care Moulder Operator Name Role Phone Mara Mcelroy MD Primary Care Provider Diogo Peck MD Primary Care Provider [phone] [facility], Pcp [facility] Encounter Details Date Type Department Care Team Description 09/18/2020 Old Medical Records Medical Records [address] [place] [address] Abstract, Provider Social History Tobacco Use Types [...] on filedocumented in this encounter Care Teams Moulder Operator Relationship Specialty Start Date End Date Mara Mcelroy MD PCP - General Internal Medicine 08/20/15 10/12/20 Diogo Wright MD [address] [place] [address] [phone] PCP - General Internal Medicine 10/13/20 11/01/21 [facility], Pcp [address] [place] [address] PCP - General Internal Medicine 11/02/21 documented as of this encounter
--- OUTSIDE RECORDS SUMMARY | 2024-10-07 14:48 | XMS_ITS | Encounter Summary ---
Author Organization [facility] Address [address] [facility] [place] [place] [address] Care Team Providers Care Grab Driver Name Role Phone Mara Mcelroy MD Primary Care Provider Diogo Peck MD Primary Care Provider [phone] [facility], Pcp Primary Care [facility] Encounter Details Date Type Department Care Team Description 08/24/2015 Release of Information Medical Records [address] [place] [address] Abstract, Provider Social History Tobacco Use Types [...] on filedocumented in this encounter Care Teams Grab Driver Relationship Specialty Start Date End Date Mara Mcelroy MD PCP - General Internal Medicine 08/20/15 10/12/20 Diogo Wright MD [address] [place] [address] PCP - General Internal Medicine 10/13/20 11/01/21 [facility], Pcp [address] [place] [address] PCP - General Internal Medicine 11/02/21 documented as of this encounter
--- OUTSIDE RECORDS SUMMARY | 2024-10-07 14:48 | XMS_ITS | Encounter Summary ---
Author Organization [facility] Address [address] [place] [address] Care Team Providers Care Is Architect Name Role Phone Mara Mcelroy MD Primary Care Provider Diogo Peck MD Primary Care Provider [phone] [facility], Pcp [facility] Encounter Details Date Type Department Care Team Description 10/11/2019 Release of Information Medical Records [address] [place] [address] Abstract, Provider Social History Tobacco Use Types [...] on filedocumented in this encounter Care Teams Is Architect Relationship Specialty Start Date End Date Mara Mcelroy MD PCP - General Internal Medicine 08/20/15 10/12/20 Diogo Wright MD [address] [place] [address] PCP - General Internal Medicine 10/13/20 11/01/21 [facility], Pcp [address] [place] [address] PCP - General Internal Medicine 11/02/21 documented as of this encounter
--- OUTSIDE RECORDS SUMMARY | 2024-10-07 14:49 | XMS_ITS | Clinical Summary ---
Author Organization [facility] Address [address] [place] [address] Care Team Providers Care Commercial Lines Account Manager Name Role Phone Diogo Wright MD Primary Care Provider [phone] Allergies Active Allergy Reactions Criticality Noted Date [...] age to complete this topic Care Teams Commercial Lines Account Manager Relationship Specialty Start Date End Date Diogo Wright MD PCP - General Internal Medicine 03/12/21
--- OUTSIDE RECORDS SUMMARY | 2024-10-07 14:49 | XMS_ITS | Encounter Summary ---
Author Organization [facility] Address [address] [place] [address] Care Team Providers Care Library Associate Name Role Phone Mara Mcelroy MD Primary Care Provider Diogo Peck MD Primary Care Provider [phone] [facility], Pcp Primary [facility] Encounter Details Date Type Department Care Team Description 04/26/2016 Release of Information Medical Records [address] [place] [address] Abstract, Provider Social History Tobacco Use Types [...] on filedocumented in this encounter Care Teams Library Associate Relationship Specialty Start Date End Date Mara Mcelroy MD PCP - General Internal Medicine 08/20/15 10/12/20 Diogo Wright MD [address] [place] [address] [phone] PCP - General Internal Medicine 10/13/20 11/01/21 [facility], Pcp [address] [place] [address] PCP - General Internal Medicine 11/02/21 documented as of this encounter
--- OUTSIDE RECORDS SUMMARY | 2024-10-07 14:49 | XMS_ITS | Encounter Summary ---
Author Organization [employer] [facility] Address [address] [place] [address] 7[address] [place] [address] Care Team Providers Care Medical Records Manager Name Role Phone Unavailable Primary Care Provider Unavailabl e Encounter Details Date Type Department Care Team (Late Contact Info) Description 09/19/2024 Telephone [facility] ADULT DENTAL [address] [place] [address] Nirmal Odell, LISA [address] [place] [address] Social History Tobacco Use Types Packs/Day Years [...] AM EDT documented as of this encounter Miscellaneous Notes * Telephone Encounter - Tasha Montenegro - 09/19/2024 1:48 PM EST Spoke with the patient and she stated that she is very satisfied how she been getting her new appointment since she stated seen Dr. Odell. The comment was about past appointment. Also provide the patient with her 6 month appointment. documented in this encounter Plan of Treatment Upcoming Encounters Date Type Department Care Team ([facility] Contact Info) Description 01/23/2025 1:00 PM EDT Office Visit [facility] ADULT DENTAL [address] [place] [address] Mireya Cole documented as of this encounter Visit Diagnoses Not on filedocumented in this encounter
--- OUTSIDE RECORDS SUMMARY | 2024-10-07 14:49 | XMS_ITS | Encounter Summary ---
Author Organization [facility] Address [address] [place] [address] Care Team Providers Care Ops Analyst Name Role Phone Mara Mcelroy MD Primary Care Provider Diogo Peck MD Primary Care Provider [phone] [facility], Pcp Primary Care [facility] Reason for Visit * Reason Onset Date Comments Cough 04/24/2019 Fever 04/24/2019 Encounter Details Date Type Department Care Team Description 04/24/2019 Telephone Medicine/Pediatrics - [address] [address] Mara Mcelroy MD Cough; Fever Social History [...] 2:09 PM EDT Unable to leave message Duplia full * Telephone Encounter - Claire Randall - 04/24/2019 1:02 PM EDT Symptoms patient is having: Patient c/o fever, body aches, chills and a really bad cough. If pain or injury related was it due to an accident at work or from a motor vehicle accident? NO If yes, gather 3rd democrat insurance information Date of accident/Injury: How long has patient had these symptoms?: past 3 days PCP: Mara Segura Payor: [facility] FFS / Plan: [facility] [employer] / Product Type: MEDICAID RISK documented in this encounter Plan of Treatment Not on file documented as of this encounter Visit Diagnoses Not on filedocumented in this encounter Care Teams Ops Analyst Relationship Specialty Start Date End Date Mara Mcelroy MD PCP - General Internal Medicine 08/20/15 10/12/20 Diogo Wright MD [address] [place] [address] PCP - General Internal Medicine 10/13/20 11/01/21 [facility], [address] [address] PCP - General Internal Medicine 11/02/21 documented as of this encounter
--- OUTSIDE RECORDS SUMMARY | 2024-10-07 14:49 | XMS_ITS | Encounter Summary ---
Author Organization [facility] Address [address] [place] [address] Care Team Providers Care Skip Locator Name Role Phone Mara Mcelroy MD Primary Care Provider Diogo Peck MD Primary Care Provider [phone] [facility], Pcp Primary Care Provider Unavailabl e Reason for Referral * EXTERNAL (Routine) - YAEL Not Received/Patient Declined Specialty Diagnoses / Procedures Referred By Alfred t Referred To Contact Pulmonology Procedures REFERRAL TO PULMONOLOGY Mara Mcelroy MD [address] [place] [address] [facility] [address] [place] [address] Referral ID Status Reason Start Date Expiration Date V isits Requested Visits Authorized SEE NOTE YAEL Not Received/Kristi ent Declined 04/12/2017 07/13/2017 1 1 Reason for Visit * Reason Onset Date Comments Salon Professional Feedback 04/12/2017 Dr. Brown Encounter Details Date Type Department Care Team Description 04/12/2017 Telephone Medicine/Pediatrics - [address] [address] Mara Mcelroy MD Salon Professional Feedback (Dr. Brown) Social History Tobacco Use [...] / Plan: MEDICAID PCC / Product Type:MEDICAID [id number] Effective 04/23/09: BCBS will not retro referral [...] insurance must be obtained and registered in [facility] or their referral can not be [...] YES Is this visit:Initial Visit Address of Specialist:[address] [place] [address], [address], [place], [place] Phone # of Specialist:[phone] Fax #: (if applicable): Does patient have an appointment scheduled?: NO Date of appointment- (including a retro-request): TBD Is this appointment related to: Not MVA, WC or Surgery related documented in this encounter Plan of Treatment Not on file documented as of this encounter Visit Diagnoses Not on filedocumented in this encounter Care Teams Skip Locator Relationship Specialty Start Date End Date Mara Mcelroy MD PCP - General Internal Medicine 08/20/15 10/12/20 Diogo Wright MD [address] [place] [address] PCP - General Internal Medicine 10/13/20 11/01/21 [facility], [place] [address] PCP - General Internal Medicine 11/02/21 documented as of this encounter
--- OUTSIDE RECORDS SUMMARY | 2024-10-07 14:49 | XMS_ITS | Encounter Summary ---
Author Organization [facility] Address [address] [place] [address] Care Team Providers Care Varnish Finisher Name Role Phone Mara Mcelroy MD Primary Care Provider Diogo Peck MD Primary Care Provider [phone] [facility], Pcp [facility] Encounter Details Date Type Department Care Team Description 08/31/2018 Release of Information Medical Records [address] [place] [id number] Abstract, Provider Social History Tobacco Use Types [...] on filedocumented in this encounter Care Teams Varnish Finisher Relationship Specialty Start Date End Date Mara Mcelroy MD PCP - General Internal Medicine 08/20/15 10/12/20 Diogo Wright MD [address] [place] [phone] PCP - General Internal Medicine 10/13/20 11/01/21 [facility], Pcp [address] [place] [phone] PCP - General Internal Medicine 11/02/21 documented as of this encounter
--- OUTSIDE RECORDS SUMMARY | 2024-10-07 14:49 | XMS_ITS | Encounter Summary ---
Author Organization [facility] Address [address] [facility] [place] [address] Care Team Providers Care Uniform Attendant Name Role Phone Diogo Wright MD Primary Care Provider [facility], Pcp Primary Care Provider Unavailabl e Encounter Details Date Type Department Care Team Description 05/27/2021 Injection Operator Report Medical Records [address] [place] [address] Abstract, Provider Social History Tobacco Use Types [...] on filedocumented in this encounter Care Teams Uniform Attendant Relationship Specialty Start Date End Date Diogo Wright MD [address] [place] [address] [phone] PCP - General Internal Medicine 10/13/20 11/01/21 [facility], Pcp [address] [place] [phone] PCP - General Internal Medicine 11/02/21 documented as of this encounter
--- OUTSIDE RECORDS SUMMARY | 2024-10-07 14:49 | XMS_ITS | Encounter Summary ---
Author Organization [facility] Address [address] [place] [address] Care Team Providers Care Roof Panel Hanger Name Role Phone Diogo Wright MD Primary Care Provider [phone] [facility], Pcp Primary Care Provider Unavailabl e Encounter Details Date Type Department Care Team Description 05/04/2021 Hospital Medical Records [address] [place] [id number] [facility] Social History Tobacco Use Types Packs/Day [...] on filedocumented in this encounter Care Teams Roof Panel Hanger Relationship Specialty Start Date End Date Diogo Wright MD [address] [place] [address] [phone] PCP - General Internal Medicine 10/13/20 11/01/21 [facility], Pcp [address] [place] [address] [phone] PCP - General Internal Medicine 11/02/21 documented as of this encounter
--- OUTSIDE RECORDS SUMMARY | 2024-10-07 14:49 | XMS_ITS | Encounter Summary ---
Author Organization [facility] Address [address] [place] [address] Care Team Providers Care Geophysical Drafter Name Role Phone Diogo Wright MD Primary Care Provider [phone] [facility], Pcp Primary Care Provider Unavailabl e Encounter Details Date Type Department Care Team Description 04/06/2021 Hospital Medical Records [address] [place] [id number] Kaushik Gómez MD Social History Tobacco Use [...] on filedocumented in this encounter Care Teams Geophysical Drafter Relationship Specialty Start Date End Date Diogo Wright MD [address] [place] [phone] PCP - General Internal Medicine 10/13/20 11/01/21 [facility], Pcp [address] [place] [address] PCP - General Internal Medicine 11/02/21 documented as of this encounter
--- OUTSIDE RECORDS SUMMARY | 2024-10-07 14:49 | XMS_ITS | Encounter Summary ---
Author Organization [facility] Address [address] [place] [address] Care Team Providers Care Radiologic Technologist Name Role Phone Diogo Wright MD Primary Care Provider [phone] [facility], Pcp Primary Care Provider Unavailabl e Encounter Details Date Type Department Care Team Description 05/13/2021 Expediter Service Order Report Medical Records [address] [place] [address] Kaushik Gómez MD Social History Tobacco Use [...] on filedocumented in this encounter Care Teams Radiologic Technologist Relationship Specialty Start Date End Date Diogo Wright MD [address] [place] [phone] PCP - General Internal Medicine 10/13/20 11/01/21 [facility], Pcp [address] [place] [address] PCP - General Internal Medicine 11/02/21 documented as of this encounter
--- OUTSIDE RECORDS SUMMARY | 2024-10-07 14:49 | XMS_ITS | Encounter Summary ---
Author Organization [facility] Address [address] [place] [address] Care Team Providers Care Inspector Tubes Name Role Phone Diogo Wright MD Primary Care Provider [phone] [facility], Pcp Primary Care Provider Unavailabl e Reason for Visit * Reason Onset Date Comments VNA Call 07/19/2021 Encounter Details Date Type Department Care Team Description 07/19/2021 Telephone Adult Medicine [facility] [address] [place] [address] [phone] Diogo Wright MD [address] [place] [address] [phone] [facility]NA Call Social History Tobacco Use Types [...] VNA CALL Which VNA office is calling? [facility] Full name of caller: Meme The caller is A nurse Is the caller at the patients home?: NO Reason for call: Meme is calling as an FYI to let us know that the patient was admitted into [facility] on 07/16/21 and was discharged on 07/17/21 [...] on filedocumented in this encounter Care Teams Inspector Tubes Relationship Specialty Start Date End Date Diogo Wright MD [address] [place] [address] PCP - General Internal Medicine 10/13/20 11/01/21 [place] [address] PCP - General Internal Medicine 11/02/21 documented as of this encounter
--- OUTSIDE RECORDS SUMMARY | 2024-10-07 14:49 | XMS_ITS | Encounter Summary ---
Author Organization [facility] Address [address] [place] [address] Care Team Providers Care Guest Relations Representative Name Role Phone Mara Mcelroy MD Primary Care Provider Diogo Peck MD Primary Care Provider [phone] [facility], Pcp Primary Care Provider [facility] Encounter Details Date Type Department Care Team Description 01/10/2019 [facility] Medical Records [address] [place] [id number] Abstract, Provider Social History Tobacco Use Types [...] on filedocumented in this encounter Care Teams Guest Relations Representative Relationship Specialty Start Date End Date Mara Mcelroy MD PCP - General Internal Medicine 08/20/15 10/12/20 Diogo Wright MD [address] [place] [address] PCP - General Internal Medicine 10/13/20 11/01/21 [facility], Pcp [address] [place] [phone] PCP - General Internal Medicine 11/02/21 documented as of this encounter
--- OUTSIDE RECORDS SUMMARY | 2024-10-07 14:49 | XMS_ITS | Encounter Summary ---
Author Organization [facility] Address [address] [place] [address] [address] [place] [address] Care Team Providers Care Lacing Presser Name Role Phone Unavailable Primary Care Provider Unavailabl e Encounter Details Date Type Department Care Team (Late st Contact Info) Description 10/02/2024 Telephone [facility] [address] [place] [address] Nirmal Odell DMD [address] [place] [address] Social History Tobacco Use Types Packs/Day Years [...] encounter Miscellaneous Notes * Telephone Encounter - Juany Blanco - 10/02/2024 8:44 AM EDT Provider wanted me to confirm the pts appt due to no confirmation but pt hung up on me when I identified myself. documented in this encounter Plan of Treatment Upcoming Encounters Date Type Department Care Team (Late Contact Info) Description 01/23/2025 1:00 PM EDT Office Visit [facility] [address] [place] [address] Mireya Cole documented as of this encounter Visit Diagnoses Not on filedocumented in this encounter
== END 2024-10-07 12:47 | disposition home or self-care (01) ==
LOC: HO.US 12:46
PROVIDERS: Visit Provider Obstetrics & Gynecology
DX: N93.9 Abnormal uterine and vaginal bleeding, unspecified (principal)
CPT/HCPCS: 76830; 76856

== ENCOUNTER → 2024-10-07 12:50 | Outpatient (BNV) | payer OTHER, SELFPAY | PROVIDERS: Visit Provider Radiology Diagnostic Radiology | DX: N85.2 Hypertrophy of uterus (principal) | CPT/HCPCS: 76830; 76856 ==

== ENCOUNTER 2024-10-10 11:59 | Outpatient (AMB) | payer OTHER, SELFPAY ==
--- NOTE | 2024-10-10 12:24 | MHC.OFFVIS ---
Vital Signs 10/10/24 12:28 Height 5 ft 5 in Weight 215 lb BMI 35.8 BP 128/74 Intake Visit Reasons: EMB/Ultrasound results Allergies latex [LATEX] Allergy (Mild, Verified 09/18/24 13:23) RASH Iodinated Contrast Media [IV Contrast Dye] Allergy (Verified 09/18/24 13:23) Anaphylaxis amoxicillin Adverse Reaction (Unknown, Verified 09/18/24 13:23) vaginal infection dulaglutide [From Trulicity] Adverse Reaction (Unknown, Verified 09/18/24 13:23) vomitting, nausea semaglutide [From Ozempic] Adverse Reaction (Unknown, Verified 09/18/24 13:23) Chest pain, vomitting HPI Comments Details: Presenting for EMB [facility] Medical History Hordeolum externum of right eye Itching Obesity (BMI 30-39.9) Sepsis Diverticulitis of both large and small intestine with perforation and abscess Diverticulitis of large intestine with abscess Morbid obesity with BMI of 50.0-59.9, adult Hypertension Vitamin D deficiency B12 deficiency Diabetic nephropathy associated with type 2 diabetes mellitus Dyslipidemia Hirsutism Diabetes type 2, uncontrolled Surgical History Hx of abdominal surgery Hx of umbilical hernia repair History of ankle surgery Hx of section Family History Father Throat cancer Cirrhosis Mother Diabetes Sister History of hysterectomy Social History Household Members: None Housing: House Do you presently have visiting nurse or other home services: Yes Alcohol intake: former Patient Tobacco Use Status: Current everyday Tobacco user Tobacco use type: Cigarette Cigarette Packs Per Day: 0.5 Cigarettes Per Day: 1 Years Smoked: 30 e-Cigarette/Vaping Use: Never Used Second Hand Smoke Exposure: Yes Substance Use Type: Marijuana Advance Directives Date on File: 05/05/21 service: No Current occupational status: disabled Cognitive needs: No Hearing needs: No Vision needs: Yes Review of Systems Const All systems reviewed & are unremarkable except as noted in HPI and below Reports as per HPI and Reports no additional complaints GI Reports no additional complaints Reports no additional complaints Physical Exam Vital Signs: Last Vital Signs BP 128/74 10/10/24 12:28 BMI result Body Mass Index 35.8 Office Procedures Endometrial Biopsy Details: The patient was counseled regarding the indication and benefits of endometrial sampling to rule out endometrial pathology including not limited to endometrial hyperplasia or endometrial cancer and others; The alternatives (Either do nothing vs. hysteroscopy D&C) & the risks were discussed with the patient including but not limited: pain, uterine perforation, bleeding, infection, possible injury to bladder, bowel, ureter, possible need for blood transfusion with all its possible risks. The patient verbalized understanding all questions answered and signed consent. Urine test done in the office was negative The patient was placed into the dorsal lithotomy position; a speculum was inserted in the vagina. Using aseptic technique for the procedure, the cervix was cleansed with Betadine. The anterior lip of the cervix was grasped with a single tooth tenaculum. The uterus was sounded to 8 cm with a 4 mm Pipelle was used. Tissues samples were obtained and placed in formalin, in a patient labeled container and sent to the pathology department. At the end of the procedure, there was minimal bleeding noted The patient tolerated the procedure well and was discharged in good condition with the following instructions: Nothing in the vagina until the bleeding stops. No sex until the bleeding stops, to call if any of the following occurs: fever (>100.4), flu-like symptoms, abdominal pain, heavy bleeding, four smelling vaginal discharge. The patient was instructed to schedule a Follow up appointment in 2 weeks to discuss pathology results of the biopsy and treatment options. This note was generated with a voice recognition program. Some errors may have been overlooked during the review of this note. Sometimes these errors may affect the content or meaning of a given sentence. [id number] Biopsy Assessment & Plan Assessment & Plan (1) Abnormal uterine bleeding (AUB): Code(s): N93.9 - Abnormal uterine and vaginal bleeding, unspecified Category: Medical Plan: EMB done, see procedure note Orders: Orders AMB Endometrial Biopsy Today N93.9 - Abnormal uterine and vaginal bleeding, unspecified Coding Level of Care Code Procedure Only Diagnoses Abnormal uterine bleeding (AUB) N93.9 CPT Codes Endometrial Biopsy - CPT: 74510-[id number] Biopsy ([id number])
[2024-10-10 12:28] VITALS: BP 128/74; BMI 35.8
== END 2024-10-10 12:58 | disposition home or self-care (01) ==
LOC: HO.HWS 11:59
PROVIDERS: Visit Provider Obstetrics & Gynecology
DX: Z32.02 Encounter for pregnancy test, result negative (principal); N93.9 Abnormal uterine and vaginal bleeding, unspecified
CPT/HCPCS: 58100

== ENCOUNTER 2024-10-10 11:59 | Outpatient (REF) | payer OTHER, SELFPAY | END 2024-10-10 12:00 | disposition home or self-care (01) | LOC: HO.LNP 11:59 | PROVIDERS: Visit Provider Obstetrics & Gynecology | DX: N93.9 Abnormal uterine and vaginal bleeding, unspecified (principal) | CPT/HCPCS: 58100; 81025; 88305 ==

== ENCOUNTER 2024-10-15 13:20 | Outpatient (AMB) | payer OTHER, SELFPAY ==
[2024-10-15 13:33] VITALS: BP 124/72; PULSE 88; BMI 36.2
--- NOTE | 2024-10-15 13:33 | A.OFFVIS_ITS ---
Vital Signs 10/15/24 13:33 Height 5 ft 5 in Weight 217 lb 13.067 oz BMI 36.2 BP 124/72 Blood Pressure Location Lt brachial Position Sitting Pulse 88 Pulse Source Monitor Intake Visit Reasons: overdue follow up Migratory Farm Hand Required: No Allergies latex [LATEX] Allergy (Mild, Verified 10/15/24 13:36) RASH Iodinated Contrast Media [IV Contrast Dye] Allergy (Verified 10/15/24 13:36) Anaphylaxis amoxicillin Adverse Reaction (Unknown, Verified 10/15/24 13:36) vaginal infection dulaglutide [From Trulicity] Adverse Reaction (Unknown, Verified 10/15/24 13:36) vomitting, nausea semaglutide [From Ozempic] Adverse Reaction (Unknown, Verified 10/15/24 13:36) Chest pain, vomitting Medication List - Last Reconciled 10/15/24 by Arelis Hamilton NP-C abdominal binder As directed albuterol sulfate 2.5 mg (3 mL) inhalation Q6H PRN 30 days albuterol sulfate 90 mcg/actuation 1 inh inhalation QID PRN 30 days albuterol sulfate 90 mcg/actuation (Ventolin HFA) 2 puffs inhalation Q4-6H PRN amlodipine 5 mg PO DAILY atorvastatin 40 mg PO BEDTIME blood sugar diagnostic (FreeStyle Test strips) testing 3x daily blood-glucose meter (FreeStyle Lite Meter kit) As directed cholecalciferol (vitamin D3) 25 mcg PO DAILY 90 days epinephrine (EpiPen 2-Josué) 0.3 mg (0.3 mL) IM ONCE PRN erythromycin 1 appl ophthalmic (eye) BEDTIME 7 days fenofibrate nanocrystallized 145 mg PO DAILY 90 days flash glucose scanning reader (FreeStyle Tiff 2 [place]) 1 ea miscellaneous DIRECTED flash glucose sensor (FreeStyle Tiff 2 Sensor kit) DIRECTED EVERY 2 WEEKS fluticasone propion-salmeterol 250-50 mcg/dose (Advair Diskus) 1 ea inhalation BID 30 days FreeStyle Precision Haresh Strips (blood sugar diagnostic) As needed up to four times daily NS glucose 4 grams PO Q15M PRN insulin glargine (Lantus Solostar U-100 Insulin) 20 units (0.2 mL) subcut BEDTIME insulin lispro 20 - 30 units subcut TID meclizine 25 mg PO DAILY metronidazole 500 mg PO BID 7 days nitroglycerin 0.4 mg sublingual Q5M PRN 15 days ondansetron HCl 8 mg PO Q12H 15 days oxycodone 10 mg PO Q8H 4 days Ozempic (semaglutide) 2 mg (0.75 mL) subcut QWEEK NS pen needle, diabetic (BD Ultra-Fine Macy Pen Needle) USE DIRECTED 4 TIMES DAILY pioglitazone 15 mg (1/2 x 30 mg) PO DAILY HPI HPI overdue follow up: Details: Mckenzie is a 49-year-old female with past medical history of hypertension, hyperlipidemia, diabetes, smoking, obesity, atypical chest discomfort, heart palpitations/brief SVT who presents for follow-up. She is still hoping to have abdominal hernia repair in the near future. Today she reports that she has had issues with elevated blood sugars, COVID and RSV in the last year. She is currently doing better overall. She still has her abdominal hernia which she feels restricts her activity due to the discomfort it causes. She has not been able to lose weight since she can not exercise. No chest discomfort at rest or with activity. She does notice rapid heartbeats at times. She describes herself as anxious and she does get panic attacks. To help with this she puts a cool towel on her neck and she says the symptoms resolve. She has not had sustained rapid heart palpitations. She has had some lightheadedness which she describes as vertigo. No presyncope, syncope, falls. No shortness of breath, PND, orthopnea or edema. She is currently taking her amlodipine, atorvastatin, inhalers and diabetic medications. [facility] Medical History Hordeolum externum of right eye Itching Obesity (BMI 30-39.9) Sepsis Diverticulitis of both large and small intestine with perforation and abscess Diverticulitis of large intestine with abscess Morbid obesity with BMI of 50.0-59.9, adult Hypertension Vitamin D deficiency B12 deficiency Diabetic nephropathy associated with type 2 diabetes mellitus Dyslipidemia Hirsutism Diabetes type 2, uncontrolled Surgical History Hx of abdominal surgery Hx of umbilical hernia repair History of ankle surgery Hx of section Family History Father Throat cancer Cirrhosis Mother Diabetes Sister History of hysterectomy Social History Household Members: None Housing: House Do you presently have visiting nurse or other home services: Yes Alcohol intake: former Patient Tobacco Use Status: Current everyday Tobacco user Tobacco use type: Cigarette Cigarette Packs Per Day: 0.5 Cigarettes Per Day: 1 Years Smoked: 30 e-Cigarette/Vaping Use: Never Used Second Hand Smoke Exposure: Yes Substance Use Type: Marijuana Advance Directives Date on File: 05/05/21 service: No Current occupational status: disabled Cognitive needs: No Hearing needs: No Vision needs: Yes Review of Systems Const All systems reviewed & are unremarkable except as noted in HPI and below ENT Denies dizziness Card Denies chest pain, Denies chest pain at rest, Denies chest pain with activity, Reports rapid heart rate (brief palpitations at times), Denies pedal edema, Denies edema, Denies leg edema, Denies lightheadedness, Denies palpitations, Denies dyspnea, Denies dyspnea on exertion and Denies orthopnea Resp Denies cough, Denies dyspnea and Denies dyspnea on exertion GI Details: abdominal hernia Denies hematochezia and Denies change in stool character Musc Denies abnormal gait, Denies limited range of motion, Denies muscle cramps, Denies muscle weakness, Denies numbness, Denies radiating pain into limb, Denies stiffness and Denies tingling Neuro Denies abnormal gait, Denies dizziness, Denies numbness and Denies tingling Endo Denies palpitations Physical Exam Vital Signs: Last Vital Signs Pulse 91 10/15/24 13:33 BP 124/72 10/15/24 13:33 BMI result Body Mass Index 36.2 Const General: no acute distress Orientation/consciousness: patient oriented x3 Neck Neck: Yes normal visual inspection and Yes no JVD Resp Effort & Inspection: normal respiratory effort Auscultation: clear to auscultation bilaterally, no rales, no rhonchi and no wheezes Cardio Jugular venous distension: no JVD Rate: tachycardic Rhythm: regular rhythm Heart sounds: S1 normal heart sound present, S2 normal heart sound present, no murmurs and no rubs GI Inspection: Yes normal to inspection Neuro General: patient oriented x3 Extrem General: Yes normal to inspection Psych Appearance: grossly normal Mental Status: mental status grossly normal Speech and movement: Normal speech and movement present Office Procedures EKG Details: Today, read by me, Normal sinus rhythm, rate 88, Qtc 450ms [id number], Complete Assessment & Plan Assessment & Plan (1) Heart palpitations: Code(s): R00.2 - Palpitations Category: Medical Plan: History of heart palpitations like her heart is beating fast. Holter monitor done on 01/25/2023 for 3 days showed sinus rhythm with average heart rate 92, heart rate range 73 to 139, rare SVE, 12 beat atrial tach. She was previously put on diltiazem and then metoprolol each of which made her heart palpitations worse . She is currently reporting only intermittent heart palpitations, worse with her anxiety. No sustained rapid rates. Instructed to call if her symptoms increase or palpitations are prolonged. Reviewed the benefits of caffeine cessation, stress reduction activities, exercise. Cardiology follow-up in 1 year, sooner if needed (2) Chest pain: Code(s): R07.9 - Chest pain, unspecified Category: Medical Qualifiers: Chest pain type: unspecified Qualified Code(s): R07.9 - Chest pain, unspecified Plan: Prior reports of squeezing chest discomfort. Cardiac risk factors including obe sity, smoking, hypertension, hyperlipidemia and diabetes. Echocardiogram done at [facility] on 09/21/2022 shows normal EF, no regional wall motion abnormality. CTA of the coronary arteries done on 12/16/2022 showed moderate to severe study limitations as her heart rate was not well controlled. Test did show Mild calcific plaque seen in the proximal segment of the distal LAD, less than 25% stenosis. No additional definite plaque noted. She continued to report symptoms and a Nuclear stress test done 07/28/2023 showing normal myocardial perfusion imaging. Her symptom was felt to be noncardiac in nature since she has only mild nonobstructive CAD. EKG done today showing normal sinus rhythm with no acute ST or T-wave abnormalities, rate 88. Continue amlodipine for good blood pressure control, continue atorvastatin with ideal LDL goal less than 70. Continue to work on weight loss, continue smoking cessation and Hemoglobin A1c goal less than 7. Signs and symptoms of true angina reviewed with her. Cardiology follow-up 1 year, sooner if needed. (3) Atrial tachycardia: Code(s): I47.1 - Supraventricular tachycardia Category: Medical Plan: Brief episode seen on Holter monitor. (4) CAD (coronary artery disease): Code(s): I25.10 - Atherosclerotic heart disease of [place] coronary artery without angina pectoris Category: Medical Plan: Mild, nonobstructive coronary artery disease. (5) Hypertension: Code(s): I10 - Essential (primary) hypertension Category: Medical Qualifiers: Hypertension type: primary hypertension Qualified Code(s): I10 - Essential (primary) hypertension Plan: Well controlled at present. Blood pressure 124/72 today. No med changes at this time. (6) Dyslipidemia: Code(s): E78.5 - Hyperlipidemia, unspecified Category: Medical Plan: [place] LDL goal less than 70 in patient with diabetes. No recent fasting lipid profile in our system. Will order and request that patient obtain. (7) Preop cardiovascular exam: Code(s): Z01.810 - Encounter for preprocedural cardiovascular examination Category: Medical Plan: Preop for incisional hernia repair. From a cardiology perspective she may proceed with hernia repair surgery with a low to intermediate cardiac risk. Aspirin can be held as needed. Call/ consult cardiology if needed. Plan Time spent on chart review, documentation, interview assessment Coding Level of Care Code Est Pt Level 4 (02514) Complex EM visit Add On G2211 Diagnoses Heart palpitations R00.2 Chest pain, unspecified type R07.9 Chest pain type: unspecified Atrial tachycardia I47.1 CAD (coronary artery disease) I25.10 Primary hypertension I10 Hypertension type: primary hypertension Dyslipidemia E78.5 Preop cardiovascular exam Z01.810 CPT Codes EKG - CPT: 65534-[id number], Complete ([id number]) Time Spent (min) 28
--- OUTSIDE RECORDS SUMMARY | 2024-10-15 16:14 | XMS_ITS | Clinical Summary ---
Author Organization [employer] Address [address] [place] [address] 7 [place] [address] Care Team Providers Care Sales Engineer Account Manager Name Role Phone Unavailable Primary Care [...] Sodium Fluoride 1.1 % creamIndication s:Dental caries Bon Aqua teeth for 2 minutes, morning and night. [...] Department Care Team Description 10/02/2024 Telephone [facility] [address] [place] [address] Nirmal Odell DMD 09/19/2024 Telephone [facility] [address] [place] [address] Nirmal Odell DMD 09/03/2024 10:00 AM EST Office Visit [facility] [address] [place] [address] Nirmal Odell DMD Severe dental caries (Primary Dx) 08/02/2024 8:30 AM EST Office Visit [facility] [address] [place] [address] Nirmal Odell DMD Dental caries (Primary Dx) 07/26/2024 8:00 AM EST Office Visit [facility] [address] [place] [address] Nirmal Odell DMD Periodontal disease (Primary Dx); Dental caries 07/25/2024 2:00 PM EST Office Visit [facility] [address] [place] [address] Mireya Cole Dental calculus (Primary Dx); Dental [...] Care Team (Late st Contact Info) Description 10/28/2024 3:00 PM EDT Office Visit [facility] [address] [place] [address] Mireya Cole 11/08/2024 10:30 AM EDT Office Visit [facility] [address] [place] [address] Nirmal Odell, DMD [address] [place] [address] 01/23/2025 1:00 PM EDT Office Visit [facility] [address] [place] [address] Mireya Cole Health Maintenance Due Date Last [...] AM EST from Last 3 Months Insurance [facility]
--- OUTSIDE RECORDS SUMMARY | 2024-10-15 16:14 | XMS_ITS | Clinical Summary ---
Author Organization [facility] Address [address] [place] [address] Care Team Providers Care Bait Man Name Role Phone Diogo Wright MD Primary Care Provider [phone] Allergies Active Allergy Reactions Criticality Noted Date [...] age to complete this topic Care Teams Bait Man Relationship Specialty Start Date End Date Diogo Wright MD PCP - General Internal Medicine 03/12/21
--- OUTSIDE RECORDS SUMMARY | 2024-10-15 16:14 | XMS_ITS | Encounter Summary ---
Author Organization [facility] Address [address] [place] [address] 7t [place] [address] Care Team Providers Care Licensed Physical Therapist Name Role Phone Unavailable Primary Care Provider Unavailabl e Encounter Details Date Type Department Care Team (Late st Contact Info) Description 10/02/2024 Telephone [facility] [address] [place] [address] Nirmal Odell DMD [address] [place] [address] Social History Tobacco Use Types Packs/Day Years [...] 3:00 PM EDT Office Visit [facility] [address] [place] [address] Mireya Cole 11/08/2024 10:30 AM EDT Office Visit [facility] [address] [place] [address] Nirmal Odell, DMD [address] [place] [address] 01/23/2025 1:00 PM EDT Office Visit [facility] [address] [place] [address] Mireya Cole documented as of this encounter Visit Diagnoses Not on filedocumented in this encounter
--- OUTSIDE RECORDS SUMMARY | 2024-10-15 16:14 | XMS_ITS | Data Portability ---
Author Organization [place] [facility], Allergy Address [address] [place] [id number] Assessment Encounter Date Assessment Date Assessment LastModified [...] disequilibrium is coming from an otologic source. [email or web address] Not available 12/29/2023 16:52:35 Plan of Treatment Reminders Order Date Submit Date Provider Last Modified By Organization Details Last Modified Time Details Appointments None recorded. Lab None recorded. Referral neurologist referral 2023 024 [email or web address] 2 [facility] Scheduling, [address] [place], [address], 4 10:41:05 Procedures None recorded. Surgeries None [...] Organization Details Recorded Time Abnormal auditory perception 50042764 Active 2023 Savannah chicas [place] - [facility] [place] 16:32:03 Migraine without aura 09262351 Active 2023 JUNIE RICH PA-C [address] [place] [address],[address], [address], [facility] [place] 4 16:52:39 Dizziness and giddiness 629363707 Active 2023 JUNIE RICH PA-C [address] [place] [address],[address], [address], [facility] [place] 4 16:52:43 Bilateral earache 248191711 Active 2023 JUNIE RICH PA-C [address] [place] [address],[address], [address], [facility] [place] 4 16:52:54 Bilateral temporomand ibular joint pain 7702352012825 9105 Active 2023 JUNIE RICH PA-C [address] [place] [address], [address] [place] [address], [address], [facility] [place] 4 16:53:00 Problem Notes None recorded. Procedures Surgical History Date Name Laterality Status Provider Name and Address Organization Details Recorded Time Comp Audio with Tymps (93982 & 53019) completed Savannah Goldsmith [place] - [facility] [place] 12/29/2023 16:30:31 Cerumen removal without microscope left completed JUNIE RICH PA-C [address] [place] [address],[place] [address], [place], [address], [facility] - [facility] 12/29/2023 14:56:07 Imaging Results Imaging Date [...] Note 3283 JUNIE RICH PA-C [facility] of [address] [address] 12/29/2023 13:49:33 12/29/2023 16:39:20 Abnormal auditory perception 33470666 H93.299 Audiologic al evaluation results: Right ear: [...] a hermetic seal}} Migraine without aura 56 843242 G43.009 Dizziness and giddiness 709132308 R42 Bilateral earache 929969 003 H92.03 Bilateral temporomandibular joint pain [id number] 8473761 M26.623 Health Concerns Section Related Observation LastModified by Organization Detai ls LastModified Time None Recorded Concern Status LastModified by Organization Details LastModified Time None Recorded Advance Directives Directive None Recorded Payers Encounter Date Sequence Insurance Name Policy Number Policy Rodriguez Covered Member ID Rodriguez Member ID Guarantor Name 12/29/2023 1 [facility] HEALTH NET PLAN (MEDICAID HMO) BURTON Quiñonez [id number] Mckenzie Quiñonez Notes Date Note Type Note [...] in several years. JUNIE RICH PA-C [address] [facility],[place] [address], [place], [address], [place] - [facility] 12/29/2023 16:53:54 OBGyn Episode No OBEpisode recorded.
--- OUTSIDE RECORDS SUMMARY | 2024-10-15 16:14 | XMS_ITS | Encounter Summary ---
Author Organization [facility] Address [address] [place] [address] 7t [place] [address] Care Team Providers Care Vp Mobile Products Name Role Phone Unavailable Primary Care Provider Unavailabl e Encounter Details Date Type Department Care Team (Late Contact Info) Description 09/19/2024 Telephone [facility] [address] [place] [address] Nirmal Odell, LISA [address] [place] [address] Social History Tobacco Use Types Packs/Day Years [...] Upcoming Encounters Date Type Department Care Team ([facility] Contact Info) Description 10/28/2024 3:00 PM EDT Office Visit [facility] [address] [place] [address] Mireya Cole 11/08/2024 10:30 AM EDT Office Visit [facility] [address] [place] [address] Nirmal Odell, DMD [address] [place] [address] 01/23/2025 1:00 PM EDT Office Visit [facility] [address] [place] [address] Mireya Cole documented as of this encounter Visit Diagnoses Not on filedocumented in this encounter
--- OUTSIDE RECORDS SUMMARY | 2024-10-15 16:15 | XMS_ITS | Clinical Summary ---
Author Organization [facility] Address [address] [place] [address] Care Team Providers Care Can Filling Room Sweeper Name Role Phone Diogo Wright MD Primary Care Provider [phone] Allergies Active Allergy Reactions Criticality Noted Date [...] s/p repair Anxiety 12/11/2015 DX:Anxiety Emphysema, unspecified 01/06 DX:Emphys yo, unspecified ([facility]); COMMENT: per patient Obesity DX:Obesity COPD (chronic obstructive pu lmonary disease) ([facility]) DX:COPD (chronic obstructive pulmonary disease) ([facility]) Tobacco abuse DX:Tobacco abuse Type 2 diabetes mellitus DX:Type 2 diabetes mellitus ([facility]) Vitamin D deficiency DX:Vitamin D deficiency Anxiety DX:Anxiety Hyperlipidemia DX:Hyperlipidemi a Family History Medical History Relation Name Comments Breast cancer Aunt paternal ?age Suicide Attempts Brother x 1 Throat cancer Father (+smoker), HAND ORNAMENT MAKER D, HTN, liver transplant Heart failure Maternal [...] Ratio (03/27/2020) Urine Albumin Creatinine Ratio abstracted Result [facility] Provider HEALTH MAINTENANCE Final Result * Annual BMP Blood Test (03/27/2020) [facility] Annual BMP Blood Test abstracted Result [facility] Provider HEALTH MAINTENANCE Final Result * (ABNORMAL) Hemoglobin A1c (03/27/2020) [facility] Hemoglobin A1C 7.2(A) <=6.5 % Blood Venous blood specimen / Unknown Result [facility] Provider LAB BLOOD ORDERABLES Celsa l Result * (ABNORMAL) Lipid panel (03/27/2020) [facility] LDL/HDL Ratio 9(A) 0 - 4 Triglycerides 388(A) 0 - 150 mg/dL Cholesterol 285(A) 0 - 200 mg/dL HDL 31(A) >=40 mg/dL LDL Cholesterol 177(A) 0 - 100 mg/dL Blood Venous blood specimen / Unknown Result [facility] Provider LAB BLOOD ORDERABLES Celsa l Result * HIV Screening (08/23/2018) [facility] HIV Screening abstracted Result [facility] Provider HEALTH MAINTENANCE Final Result * Hepatitis C Screening (08/23/2018) [facility] Hepatitis C Screening abstracted Result [facility] Provider HEALTH MAINTENANCE Final Result * Cervical Cancer Screening: HPV (02/09/2016) [facility] Cervical Cancer Screening: HPV negative, abstracted Result [facility] Provider HEALTH MAINTENANCE Final Result from Last 3 Months or Most Recently Relevant to Health Maintenance Care Teams Can Filling Room Sweeper Relationship Specialty Start Date End Date Diogo Wright MD PCP - General Internal Medicine 03/12/21
== END 2024-10-15 14:06 | disposition home or self-care (01) ==
LOC: HO.HCS 13:21
PROVIDERS: PCP Physician Assistant; Visit Provider Nurse Practitioner Family
DX: R00.2 Palpitations (principal); R07.9 Chest pain, unspecified; I47.10 Supraventricular tachycardia, unspecified; I25.10 Atherosclerotic heart disease of native coronary artery without angina pectoris; I10 Essential (primary) hypertension; E78.5 Hyperlipidemia, unspecified; Z01.810 Encounter for preprocedural cardiovascular examination
CPT/HCPCS: 93010; 99214; G2211

== ENCOUNTER → 2024-10-15 13:20 | Outpatient (BNVA) | payer OTHER, SELFPAY | PROVIDERS: PCP Physician Assistant; Visit Provider Nurse Practitioner Family | DX: Z01.810 Encounter for preprocedural cardiovascular examination (principal); I25.10 Atherosclerotic heart disease of native coronary artery without angina pectoris; I47.10 Supraventricular tachycardia, unspecified; I10 Essential (primary) hypertension; E11.9 Type 2 diabetes mellitus without complications; E66.9 Obesity, unspecified; R00.2 Palpitations; R07.9 Chest pain, unspecified; F17.210 Nicotine dependence, cigarettes, uncomplicated; Z87.891 Personal history of nicotine dependence; Z68.36 Body mass index [BMI] 36.0-36.9, adult | CPT/HCPCS: 93005; 99212 ==

== ENCOUNTER 2024-10-24 11:27 | Outpatient (AMB) | payer OTHER, SELFPAY ==
--- NOTE | 2024-10-24 11:28 | MHC.OFFVIS ---
Vital Signs 10/24/24 11:33 Height 5 ft 5 in Weight 217 lb BMI 36.1 Intake Visit Reasons: EMB results Allergies latex [LATEX] Allergy (Mild, Verified 10/15/24 13:36) RASH Iodinated Contrast Media [IV Contrast Dye] Allergy (Verified 10/15/24 13:36) Anaphylaxis amoxicillin Adverse Reaction (Unknown, Verified 10/15/24 13:36) vaginal infection dulaglutide [From Trulicity] Adverse Reaction (Unknown, Verified 10/15/24 13:36) vomitting, nausea semaglutide [From Ozempic] Adverse Reaction (Unknown, Verified 10/15/24 13:36) Chest pain, vomitting HPI Comments Details: The patient is presenting for follow-up to discuss the results of her abnormal uterine bleeding workup and options of treatment. The following workup was done.: H&H= 1337.9 TSH, hCG, GC and chlamydia were negative. FSH/LH 15.4/5.1 Endometrial biopsy pathology showed the following: Endometrium, biopsy: - Superficial fragments of early secretory endometrium; no atypia or hyperplasia identified. - Few fragments of endocervical epithelium within normal limits. - No atypia identified Co testing was done in 01/12 was negative. Mammogram ordered but not scheduled yet Pelvic ultrasound showed the following: The uterus measures 11.6 cm in length Endometrial thickness is 10 mm The RIGHT ovary measures 1.8 x 1.5 x 1.8 cm The LEFT ovary measures 3.9 x 2.6 x 2.8 cm There is a 2.2 cm non septated left ovarian cyst Bilateral ovarian color Doppler blood flow. No solid ovarian masses. No free fluid PFSH Medical History Hordeolum externum of right eye Itching Obesity (BMI 30-39.9) Sepsis Diverticulitis of both large and small intestine with perforation and abscess Diverticulitis of large intestine with abscess Morbid obesity with BMI of 50.0-59.9, adult Hypertension Vitamin D deficiency B12 deficiency Diabetic nephropathy associated with type 2 diabetes mellitus Dyslipidemia Hirsutism Diabetes type 2, uncontrolled Surgical History Hx of abdominal surgery Hx of umbilical hernia repair History of ankle surgery Hx of section Family History Father Throat cancer Cirrhosis Mother Diabetes Sister History of hysterectomy Social History Household Members: None Housing: House Do you presently have visiting nurse or other home services: Yes Alcohol intake: former Patient Tobacco Use Status: Current everyday Tobacco user Tobacco use type: Cigarette Cigarette Packs Per Day: 0.5 Cigarettes Per Day: 1 Years Smoked: 30 e-Cigarette/Vaping Use: Never Used Second Hand Smoke Exposure: Yes Substance Use Type: Marijuana Advance Directives Date on File: 05/05/21 service: No Current occupational status: disabled Cognitive needs: No Hearing needs: No Vision needs: Yes Review of Systems Const All systems reviewed & are unremarkable except as noted in HPI and below Reports as per HPI and Reports no additional complaints GI Reports no additional complaints Reports no additional complaints Physical Exam Vital Signs: BMI result Body Mass Index 36.1 Assessment & Plan Assessment & Plan (1) Abnormal uterine bleeding (AUB): Code(s): N93.9 - Abnormal uterine and vaginal bleeding, unspecified Category: Medical Plan: Instructions given the patient to have her screening mammogram scheduled. Discussed with the patient the results of the work up done and options of treatment including Mirena IUD, endometrial ablation and hysterectomy. All pros, cons, risks and benefits if each option was discussed with the patient and the patient decided to think about it and get back to us. All questions answered the patient verbalized understanding. (2) Complex ovarian cyst: Comment: Left side Code(s): N83.299 - Other ovarian cyst, unspecified side Category: Medical Plan: Discussed with the patient the complex ovarian cyst by ultrasound. Discussed with the patient the Ultrasound findings, the main limitation of transvaginal ultrasonography alone as a diagnostic tool to distinguish benign from malignant masses relates to its lack of specificity and low positive predictive value for cancer. The differential diagnosis discussed with the patient includes the following but not limited to: benign and malignant gynecological and non-gynecological causes. Laboratory evaluation include UPT and GC/CT , serum tumor marker CA 125 . Discussed with the patient that CA 125 is a protein associated with epithelial ovarian malignancies, but also frequently expressed at lower levels by nonmalignant tissue. Elevation of CA 125 levels may occur in nonmalignant gynecologic conditions, and in non-gynecologic cancers, It is most useful in postmenopausal women and in identifying non mucinous epithelial cancer. The CA 125 level is elevated in 80% of patients with epithelial ovarian cancer but in only 50% of patients with stage I disease. The overall sensitivity of CA 125 testing in distinguishing benign from malignant adnexal masses reportedly ranges from 61% to 90%; discussed with the patient the specificity, positive predictive value and negative predictive value. Discussed with the patient options of treatment , in case CA 125 is not elevated, including laparoscopy ovarian cystectomy/oophorectomy vs. expectant management with repeat US in repeating pelvic US in 6 weeks from previous US. If the ovarian complex cyst is persistent larger and / or more complex looking, or higher CA 125 will refer to gynecologic Oncology. All pros, cons, risks and benefits of each approach were discussed with the patient including but not limited to a delay in the diagnosis and treatment of ovarian cancer affecting the prognosis; The patient decided to go ahead with expectant management. Instructions given the patient to schedule a 6 weeks follow-up ultrasound appointment. All questions were answered & the patient verbalized understanding and agreed with the plan. Orders: Orders US pelvic and transvaginal 6 Weeks N83.299 - Other ovarian cyst, unspecified side CA-125 Today N83.299 - Other ovarian cyst, unspecified side Coding Level of Care Code Est Pt Prev Care 40-64y(51067) Diagnoses Abnormal uterine bleeding (AUB) N93.9 Complex ovarian cyst N83.299
[2024-10-24 11:33] VITALS: BMI 36.1
--- OUTSIDE RECORDS SUMMARY | 2024-10-24 12:43 | XMS_ITS | Clinical Summary ---
Author Organization [facility] Address [address] [place] [address] Care Team Providers Care Integrated Circuit Ic Layout Designer Name Role Phone Diogo Wright MD Primary Care Provider Allergies Active Allergy Reactions Criticality Noted Date [...] age to complete this topic Care Teams Integrated Circuit Ic Layout Designer Relationship Specialty Start Date End Date Diogo Wright MD PCP - General Internal Medicine 03/12/21
--- OUTSIDE RECORDS SUMMARY | 2024-10-24 12:43 | XMS_ITS | Clinical Summary ---
Author Organization [facility] it Address [address] [place] [address] Care Team Providers Care Auto Parts Professional Name Role Phone Diogo Wright MD Primary Care Provider [phone] Allergies Active Allergy Reactions Criticality Noted Date [...] unspecified 01/06 DX:Emphys yo, unspecified ([facility]); COMMENT: per patient Obesity DX:Obesity COPD (chronic obstructive pu lmonary disease) ([facility]) DX:COPD (chronic obstructive pulmonary disease) ([facility]) Tobacco abuse DX:Tobacco abuse Type 2 diabetes mellitus DX:Type 2 diabetes mellitus ([facility]) Vitamin D deficiency DX:Vitamin D deficiency Anxiety DX:Anxiety Hyperlipidemia DX:Hyperlipidemi a Family History Medical History Relation Name Comments Breast cancer Aunt paternal ?age Suicide Attempts Brother x 1 Throat cancer Father (+smoker), CHIMNEY BUILDER D, HTN, liver transplant Heart failure Maternal [...] (03/27/2020) Urine Albumin Creatinine Ratio abstracted Result [facility] Provider HEALTH MAINTENANCE Final Result * Annual BMP Blood Test (03/27/2020) [facility] Annual BMP Blood Test abstracted Result [facility] Provider HEALTH MAINTENANCE Final Result * (ABNORMAL) Hemoglobin A1c (03/27/2020) [facility] Hemoglobin A1C 7.2(A) <=6.5 % Blood Venous blood specimen / Unknown Result [facility] Provider LAB BLOOD ORDERABLES Celsa l Result * (ABNORMAL) Lipid panel (03/27/2020) [facility] LDL/HDL Ratio 9(A) 0 - 4 Triglycerides 388(A) 0 - 150 mg/dL Cholesterol 285(A) 0 - 200 mg/dL HDL 31(A) >=40 mg/dL LDL Cholesterol 177(A) 0 - 100 mg/dL Blood Venous blood specimen / Unknown Result [facility] Provider LAB BLOOD ORDERABLES Celsa l Result * HIV Screening (08/23/2018) [facility] HIV Screening abstracted Result [facility] Provider HEALTH MAINTENANCE Final Result * Hepatitis C Screening (08/23/2018) [facility] Hepatitis C Screening abstracted Result [facility] Provider HEALTH MAINTENANCE Final Result * Cervical Cancer Screening: HPV (02/09/2016) [facility] Cervical Cancer Screening: HPV negative, abstracted Result [facility] Provider HEALTH MAINTENANCE Final Result from Last 3 Months or Most Recently Relevant to Health Maintenance Care Teams Auto Parts Professional Relationship Specialty Start Date End Date Diogo Wright MD PCP - General Internal Medicine 03/12/21
--- OUTSIDE RECORDS SUMMARY | 2024-10-24 12:43 | XMS_ITS | Clinical Summary ---
Author Organization [employer] Address [address] [place] [address] 7 [place] [address] Care Team Providers Care Instrument Maintenance Supervisor Name Role Phone Unavailable Primary Care [...] Sodium Fluoride 1.1 % creamIndication s:Dental caries Dutton teeth for 2 minutes, morning and night. [...] Type Department Care Team Description 10/02/2024 Telephone [facility] [address] [place] [address] Nirmal Odell DMD 09/19/2024 Telephone [facility] [address] [place] [address] Nirmal Odell DMD 09/03/2024 10:00 AM EST Office Visit [facility] [address] [place] [address] Nirmal Odell DMD Severe dental caries (Primary Dx) 08/02/2024 8:30 AM EST Office Visit [facility] [address] [place] [address] Nirmal Odell DMD Dental caries (Primary Dx) 07/26/2024 8:00 AM EST Office Visit [facility] [address] [place] [address] Nirmal Odell DMD Periodontal disease (Primary Dx); Dental caries from Last 3 Months Social History Tobacco [...] Description 10/28/2024 3:00 PM EDT Office Visit [facility] [address] [place] [address] Mireya Cole 11/08/2024 10:30 AM EDT Office Visit [facility] [address] [place] [address] Nirmal Odell DMD [address] [place] [address] 01/23/2025 1:00 PM EDT Office Visit [facility] [address] [place] [address] Mireya Cole Health Maintenance Due Date Last [...] 8:00 AM EST Periodontal disease Dental caries PROPHYLAXIS - ADULT Routine 07/25/2024 2 :00 PM EST Dental caries Periodontal disease INTRAORAL - COMPLETE SERIES OF RADIOGRAPHIC IMAGES Routine 07/25/2024 2:00 PM EST Dental caries Periodontal disease PERIODIC ORAL EVALUATION - ESTABLISHED PATIENT Routine 07/25/2024 2:00 PM EST Dental caries Periodontal disease from Last 3 Months or Most Recently Relevant to Health Maintenance Insurance [facility] MEDICAID STAND ADULT
--- OUTSIDE RECORDS SUMMARY | 2024-10-24 12:43 | XMS_ITS | Data Portability ---
Author Organization [place] - [facility], Allergy Address [address] [place] [id number] Assessment Encounter Date Assessment Date Assessment LastModified [...] None recorded. Referral neurologist referral 2023 024 [email or web address] 2 [facility] Neurology Scheduling, [address] [place], [address], 4 10:41:05 Procedures None recorded. Surgeries None [...] Organization Details Recorded Time Abnormal auditory perception [id number] Active 2023 Savannah chicas [place] - [facility] 16:32:03 Migraine without aura 47735415 Active 2023 JUNIE RIHC PA-C [address] [place] [address],[address], [address], [facility] 4 16:52:39 Dizziness and giddiness 073168042 Active 2023 JUNIE RICH PA-C [address] [place] [address],[address], [address], [facility] 4 16:52:43 Bilateral earache 520783158 Active 2023 JUNIE RICH PA-C [address] [place] [address],[address], [address], [facility] 4 16:52:54 Bilateral temporomand ibular joint pain [id number] 9105 Active 2023 JUNIE RICH PA-C [address] [place] [address], [address] [place] [address], [address], [facility] 4 16:53:00 Problem Notes None recorded. Procedures Surgical History Date Name Laterality Status Provider Name and Address Organization Details Recorded Time Comp Audio with Tymps (32697 & 46886) completed Savannah Goldsmith [place] - [facility] 12/29/2023 16:30:31 Cerumen removal without microscope left completed JUNIE RICH PA-C [address] [place] [address],[place] [address], [place], [address], [facility] - [facility] 12/29/2023 14:56:07 Imaging Results Imaging Date [...] Note 3283 JUNIE RICH PA-C [facility] of [address] [address] 12/29/2023 13:49:33 12/29/2023 16:39:20 Abnormal auditory perception 52921106 H93.299 Audiologic al evaluation results: Right ear: [...] a hermetic seal}} Migraine without aura 56 230087 G43.009 Dizziness and giddiness 994999031 R42 Bilateral earache 130585 003 H92.03 Bilateral temporomandibular joint pain [id number] M26.623 Health Concerns Section Related Observation LastModified by Organization Detai ls LastModified Time None Recorded Concern Status LastModified by Organization Details LastModified Time None Recorded Advance Directives Directive None Recorded Payers Encounter Date Sequence Insurance Name Policy Number Policy Rodriguez Covered Member ID Rodriguez Member ID Guarantor Name 12/29/2023 1 [facility] - HEALTH NET PLAN (MEDICAID HMO) BURTON Quiñonez [id number] Mckenzie Quiñonez Notes Date Note Type Note [...] in several years. JUNIE RICH PA-C [address] [facility],[place] [address], [place], [address], [place] - [facility] 12/29/2023 16:53:54 OBGyn Episode No OBEpisode recorded.
== END 2024-10-24 12:09 | disposition home or self-care (01) ==
LOC: HO.HWS 11:27
PROVIDERS: PCP Physician Assistant; Visit Provider Obstetrics & Gynecology
DX: N93.9 Abnormal uterine and vaginal bleeding, unspecified (principal); N83.299 Other ovarian cyst, unspecified side
CPT/HCPCS: 99214

== ENCOUNTER 2024-10-24 11:27 | Outpatient (REF) | payer OTHER, SELFPAY ==
--- OUTSIDE RECORDS SUMMARY | 2024-10-24 13:25 | XMS_ITS | Clinical Summary ---
Author Organization [employer] Address [address] [place] [address] 7 [place] [address] Care Team Providers Care Real Estate Job Titles Name Role Phone Unavailable Primary Care Provider [...] Sodium Fluoride 1.1 % creamIndication s:Dental caries [place] teeth for 2 minutes, morning and night. [...] Type Department Care Team Description 10/02/2024 Telephone [facility] ADULT DENTAL [address] [place] [address] Nirmal Odell DMD 09/19/2024 Telephone [facility] ADULT D[facility]AL [address] [place] [address] Nirmal Odell DMD 09/03/2024 10:00 AM EST Office Visit [facility]ULT [facility] [address] [place] [address] Nirmal Odell DMD Severe dental caries (Primary Dx) 08/02/2024 8:30 AM EST Office Visit [facility]ULT [facility] [address] [place] [address] Nirmal Odell DMD Dental caries (Primary Dx) 07/26/2024 8:00 AM EST Office Visit [facility]ULT D[facility] [address] [place] [address] Nirmal Odell DMD Periodontal disease (Primary Dx); [...] Description 10/28/2024 3:00 PM EDT Office Visit [facility]ULT [facility] [address] [place] [address] Mireya Cole 11/08/2024 10:30 AM EDT Office Visit [facility]ULT D[facility] [address] [place] [address] Nirmal Odell DMD [address] [place] [address] 01/23/2025 1:00 PM EDT Office Visit [facility] ADULT D[facility] [address] [place] [address] Mireya Cole Health Maintenance Due Date Last [...]
--- OUTSIDE RECORDS SUMMARY | 2024-10-24 13:25 | XMS_ITS | Clinical Summary ---
Author Organization [facility] it Address [address] [place] [address] Care Team Providers Care Tape Weaver Name Role Phone Diogo Wright MD Primary Care Provider [phone] Allergies Active Allergy Reactions Criticality Noted Date [...] DX:Anxiety Emphysema, unspecified 01/06 DX:Emphys yo, unspecified ([facility]); COMMENT: per patient Obesity DX:Obesity COPD (chronic obstructive pu lmonary disease) ([facility]/HCC) DX:COPD (chronic obstructive pulmonary disease) ([facility]) Tobacco abuse DX:Tobacco abuse Type 2 diabetes mellitus DX:Type 2 diabetes mellitus ([facility]) Vitamin D deficiency DX:Vitamin D deficiency Anxiety DX:Anxiety Hyperlipidemia DX:Hyperlipidemi a Family History Medical History Relation Name Comments Breast cancer Aunt paternal ?age Suicide Attempts Brother x 1 Throat cancer Father (+smoker), IMMIGRATION INSPECTOR D, HTN, liver transplant Heart failure Maternal [...] (03/27/2020) Urine Albumin Creatinine Ratio abstracted Result [facility] Provider HEALTH MAINTENANCE Final Result * Annual BMP Blood Test (03/27/2020) [facility] Annual BMP Blood Test abstracted Result [facility] Provider HEALTH MAINTENANCE Final Result * (ABNORMAL) Hemoglobin A1c (03/27/2020) [facility] Hemoglobin A1C 7.2(A) <=6.5 % Blood Venous blood specimen / Unknown Result [facility] Provider LAB BLOOD ORDERABLES Celsa l Result * (ABNORMAL) Lipid panel (03/27/2020) [facility] LDL/HDL Ratio 9(A) 0 - 4 Triglycerides 388(A) 0 - 150 mg/dL Cholesterol 285(A) 0 - 200 mg/dL HDL 31(A) >=40 mg/dL LDL Cholesterol 177(A) 0 - 100 mg/dL Blood Venous blood specimen / Unknown Result [facility] Provider LAB BLOOD ORDERABLES Celsa l Result * HIV Screening (08/23/2018) [facility] HIV Screening abstracted Result [facility] Provider HEALTH MAINTENANCE Final Result * Hepatitis C Screening (08/23/2018) [facility] Hepatitis C Screening abstracted Result [facility] Provider HEALTH MAINTENANCE Final Result * Cervical Cancer Screening: HPV (02/09/2016) [facility] Cervical Cancer Screening: HPV negative, abstracted Result [facility] Provider HEALTH MAINTENANCE Final Result from Last 3 Months or Most Recently Relevant to Health Maintenance Care Teams Tape Weaver Relationship Specialty Start Date End Date Diogo Wright MD PCP - General Internal Medicine 03/12/21
--- OUTSIDE RECORDS SUMMARY | 2024-10-24 13:25 | XMS_ITS | Clinical Summary ---
Author Organization [facility] Address [address] [place] [address] Care Team Providers Care Pad Hand Name Role Phone Diogo Wright MD Primary Care Provider [phone] Allergies Active Allergy Reactions Criticality Noted Date [...] age to complete this topic Care Teams Pad Hand Relationship Specialty Start Date End Date Diogo Wright MD PCP - General Internal Medicine 03/12/21
[2024-10-26 08:29] LABS: CA-125 7 U/mL (<35)
== END 2024-10-24 11:28 | disposition home or self-care (01) ==
LOC: HO.LAB 11:27
PROVIDERS: PCP Physician Assistant; Visit Provider Obstetrics & Gynecology
DX: N83.299 Other ovarian cyst, unspecified side (principal); N93.9 Abnormal uterine and vaginal bleeding, unspecified
CPT/HCPCS: 36415; 86304; 99212

== ENCOUNTER 2024-11-28 11:38 | Outpatient (REF) | payer OTHER, SELFPAY ==
--- NOTE | ~2024-11-28 | US_ITS ---
CLINICAL HISTORY: N83.299 - Other ovarian cyst, unspecified side US pelvis transabdominal and transvaginal with Doppler Comparison: US - US PELVIC AND TRANSVAGINAL - 10/07/24 12:52 EDT Findings: Transvaginal and transabdominal scanning performed. Anteverted uterus is 7.7 cm length. Exophytic small fibroid noted along the left fundus measuring 1.8 x 1.3 x 1.6 cm Endometrium 5 mm thickness. Scattered nabothian cysts. Right ovary 2.4 x 2 x 1.8 cm. Small septated right ovarian cyst measuring 1.3 x 0.9 x 1 cm. Finding may reflect a hemorrhagic or corpus luteum cyst. Left ovary 2.7 x 1.5 x 1.8 cm. Normal color Doppler of both ovaries. Spectral analysis not provided. No free fluid. IMPRESSION: No evidence of ovarian torsion. Small uterine fibroid. This document has been electronically signed by: Gilberto Alonso MD on 11/29/2024 05:41:52
--- OUTSIDE RECORDS SUMMARY | 2024-11-28 13:09 | XMS_ITS | Clinical Summary ---
Author Organization [facility] it Address [address] [place] [address] Care Team Providers Care Supervisor Train Operations Name Role Phone Diogo Wright MD Primary Care Provider [phone] Allergies Active Allergy Reactions Criticality Noted Date [...] 12/19/2019 Fatty liver 12/11/2019 Asthma-COPD overlap syndrome ([facility] V24, [facility]/ [facility] V28) 01/23/2019 Mediastinal lymphadenopathy 01/23/2019 Pulmonary nodules 01/23/2019 Hidradenitis 12/14/2018 Obesity (BMI 30-39.9) 08/01/2018 Snoring 06/29/2018 Overview (07/22/2024): 05/2018 Home Sleep Study did not reveal sleep apnea. Type 2 diabetes mellitus ([facility] V24, [facility] V 28) 04/26/2018 Vitamin D deficiency 04/26/2018 Anxiety 12/11/2015 [...] s/p repair Anxiety 12/11/2015 DX:Anxiety Emphysema, unspecified ([facility] V24, [facility] V28) 01/06 DX:Emphysema, unspecified ([facility]); COMMENT: per patient Obesity DX:Obesity COPD (chronic obstructive pu lmonary disease) ([facility] V24, [facility] V28) DX:COPD (chronic o bstructive pulmonary disease) ([facility]) Tobacco abuse DX:Tobacco abuse Type 2 diabetes mellitus ( S/[facility] V24, [facility] V28) DX:Type 2 diabetes mellitus ([facility]) Vitamin D deficiency DX:Vitamin D deficiency Anxiety DX:Anxiety Hyperlipidemia DX:Hyperlipidemi a Family History Medical History Relation Name Comments Breast cancer Aunt paternal ?age Suicide Attempts Brother x 1 Throat cancer Father (+smoker), INDUSTRIAL HYGIENIST D, HTN, liver transplant Heart failure Maternal [...] l Test (HGBA1C) 06/30/2022 03/27/2020 Influenza Vaccine (Season Ended) 2025 Cholesterol Screening (Lipid Panel) 03/27/2025 03/27/2020 DTaP,Tdap,and [...] age to complete this topic Meningococcal B Vaccine Aged Out No l onger eligible based on patient's age to complete [...] Results * Urine Albumin Creatinine Ratio (03/27/2020) [facility] Urine Albumin Creatinine Ratio abstracted Result [facility] Yante [facility] HEALTH MAINTENANCE Final Result * Annual BMP Blood Test (03/27/2020) [facility] Annual BMP Blood Test abstracted Result [facility] Yanet [facility] HEALTH MAINTENANCE Final Result * (ABNORMAL) Hemoglobin A1c (03/27/2020) [facility] Hemoglobin A1C 7.2(A) <=6.5 % Blood Venous blood specimen / Unknown Result [facility] Yanet [facility] LAB BLOOD ORDERABLES Celsa l Result * (ABNORMAL) Lipid panel (03/27/2020) [facility] LDL/HDL Ratio 9(A) 0 - 4 Triglycerides 388(A) 0 - 150 mg/dL Cholesterol 285(A) 0 - 200 mg/dL HDL 31(A) >=40 mg/dL LDL Cholesterol 177(A) 0 - 100 mg/dL Blood Venous blood specimen / Unknown Result [facility] Yanet [facility] LAB BLOOD ORDERABLES Celsa l Result * HIV Screening (08/23/2018) [facility] HIV Screening abstracted Result [facility] Yan[facility] HEALTH MAINTENANCE Final Result * Hepatitis C Screening (08/23/2018) [facility] Hepatitis C Screening abstracted Result [facility] Yaent [facility] HEALTH MAINTENANCE Final Result * Cervical Cancer Screening: HPV (02/09/2016) [facility] Cervical Cancer Screening: HPV negative, abstracted Result [facility] Yan[facility] HEALTH MAINTENANCE Final Result from Last 3 Months or Most Recently Relevant to Health Maintenance Care Teams Supervisor Train Operations Relationship Specialty Start Date End Date Diogo Wright MD PCP - General Internal Medicine 03/12/21
--- OUTSIDE RECORDS SUMMARY | 2024-11-28 13:09 | XMS_ITS | Clinical Summary ---
Author Organization [employer] Address [address] [place] [address] [address] [place] [address] Care Team Providers Care Thermal Cutter Hand Name Role Phone Unavailable Primary Care Provider [...] Active Additional Information Patient not taking.Reported on 11/06/2024 atorvastatin (Lipitor) 40 MG tablet Take 1 [...] Sodium Fluoride 1.1 % creamIndication s:Dental caries [place] teeth for 2 minutes, morning and night. [...] Encounters Date Type Department Care Team Description 11/08/2024 10:30 AM EDT Office Visit [facility]ULT D[facility] [address] [place] [address] Nirmal Odell DMD Dental caries (Primary Dx) 11/06/2024 11:00 AM EDT Office Visit [facility] [address] [place] [address] Mireya Cole 10/02/2024 Telephone [facility] [address] [place] [address] Nirmal Odell DMD 09/19/2024 Telephone [facility] [address] [place] [address] Nirmal Odell DMD 09/03/2024 10:00 AM EST Office Visit [facility] [address] [place] [address] Nirmal Odell DMD Severe dental caries (Primary Dx) from Last 3 Months Social History Tobacco [...] Sign Reading Time Taken Comments Blood Pressure 130/68 11/08/2024 10:43 AM EDT Pulse 67 11/16/2022 1:22 PM EDT Temperature - - Respiratory Rate - - Oxygen Saturation - - Inhaled Oxygen Concentration - - Weight - - Height - - Body Mass Index - - Plan of Treatment Upcoming Encounters Date Type Department Care Team (Late st Contact Info) Description 01/23/2025 1:00 PM EDT Office Visit [facility] [address] [place] [address] Mireya Cole Health Maintenance Due Date Last Done Comments CT Colonography 1976 Colonoscopy 1976 Colorectal Cancer Screening 1976 Depression Screening 1976 FIT DNA/Cologuard 1976 FIT 1976 FOBT [...] Cancer Screening 2006 HPV/Cotest 2006 Mammogram 2016 Diabetes: Hemoglobin A1C 06/26/2020 03/27/2020 Influenza Vaccine (#1) 2024 Dental Oral Exam 01/23/2025 07/25/2024, 03/17/2023 Dental Prophylaxis 01/23/2025 07/25/2024 Dental X-Ray: Bitewings 07/26/2025 07/25/2024 Tobacco Screening 11/08/2025 11/08/2024 DTaP/Tdap/Td Vaccines (2 - T d or [...] PRESENTATION, DETAILED AND EXTENSIVE TREATMENT PLANNING Routine 11/08/2024 10:30 AM EDT Dental caries 26 MF RESIN-BASED COMPOSITE - 2 SURF, ANTERIOR Routine 11/08/2024 10:30 AM EDT Dental caries 25 MF RESIN-BASED COMPOSITE - 2 SURF, ANTERIOR Routine 11/08/2024 10:30 AM EDT Dental caries 24 MF RESIN-BASED COMPOSITE - 2 SURF, ANTERIOR Routine 11/08/2024 10:30 AM EDT Dental caries 22 DF(V) RESIN-BASED COMPOSITE - 2 SURF, ANTERIOR Routine 11/08/2024 10:30 AM EDT Dental caries ORAL HYGIENE INSTRUCTIONS Routine 11/06/2024 11:00 AM EDT CASE PRESENTATION, DETAILED AND EXTENSIVE TREATMENT PLANNING Routine 11/06/2024 11:00 AM EDT LR PERIODONTAL SCALING AND ROOT PLANING - 1 TO 3 TEETH PER QUADRANT Routine 11/06/2024 11:00 AM EDT LL PERIODONTAL SCALING AND ROOT PLANING - 1 TO 3 TEETH PER QUADRANT Routine 11/06/2024 11:00 AM EDT CASE PRESENTATION, DETAILED AND EXTENSIVE TREATMENT PLANNING Routine 09/03/2024 10:00 AM EST Severe dental caries 20 EXTRACTION, ERUPTED TOOTH OR EXPOSED ROOT (ELEVATION/FORCEPS REMOVAL) Routine 09/03/2024 10:00 AM EST Severe dental caries PROPHYLAXIS - ADULT Routine 07/25/2024 2 :00 PM EST Dental caries Periodontal disease INTRAORAL - COMPLETE SERIES OF RADIOGRAPHIC IMAGES Routine 07/25/2024 2:00 PM EST Dental caries Periodontal disease PERIODIC ORAL EVALUATION - ESTABLISHED PATIENT Routine 07/25/2024 2:00 PM EST Dental caries Periodontal disease from Last 3 Months or Most Recently Relevant to Health Maintenance [facility]
--- OUTSIDE RECORDS SUMMARY | 2024-11-28 13:09 | XMS_ITS | Clinical Summary ---
Author Organization [facility] Address [address] [place] [address] Care Team Providers Care Senior Writer Name Role Phone Diogo Wright MD Primary Care Provider [phone] Allergies Active Allergy Reactions Criticality Noted Date [...] age to complete this topic Care Teams Senior Writer Relationship Specialty Start Date End Date Diogo Wright MD PCP - General Internal Medicine 03/12/21
== END 2024-11-28 11:39 | disposition home or self-care (01) ==
LOC: HO.US 11:38
PROVIDERS: PCP Physician Assistant; Visit Provider Obstetrics & Gynecology
DX: N83.299 Other ovarian cyst, unspecified side (principal)
CPT/HCPCS: 76830; 76856

== ENCOUNTER → 2024-11-28 11:39 | Outpatient (BNV) | payer OTHER, SELFPAY | PROVIDERS: PCP Physician Assistant; Visit Provider Radiology Diagnostic Radiology | DX: N83.291 Other ovarian cyst, right side (principal); D25.9 Leiomyoma of uterus, unspecified | CPT/HCPCS: 76830; 76856 ==

== ENCOUNTER 2024-12-04 11:54 | Outpatient (AMB) | payer OTHER, SELFPAY ==
--- NOTE | 2024-12-04 11:58 | A.OFFVIS_ITS ---
Vital Signs 12/04/24 12:01 Height 5 ft 5 in Weight 217 lb BMI 36.1 Intake Visit Reasons: ultrasound results Allergies latex [LATEX] Allergy (Mild, Verified 10/15/24 13:36) RASH Iodinated Contrast Media [IV Contrast Dye] Allergy (Verified 10/15/24 13:36) Anaphylaxis amoxicillin Adverse Reaction (Unknown, Verified 10/15/24 13:36) vaginal infection dulaglutide [From Trulicity] Adverse Reaction (Unknown, Verified 10/15/24 13:36) vomitting, nausea semaglutide [From Ozempic] Adverse Reaction (Unknown, Verified 10/15/24 13:36) Chest pain, vomitting HPI Comments Details: Presenting for ultrasound follow-up pelvic Ultrasound done recently in 11/15 showed the following: Anteverted uterus is 7.7 cm length. Exophytic small fibroid noted along the left fundus measuring 1.8 x 1.3 x 1.6 cm Endometrium 5 mm thickness. Scattered nabothian cysts. Right ovary 2.4 x 2 x 1.8 cm. Small septated right ovarian cyst measuring 1.3 x 0.9 x 1 cm. Finding may reflect a hemorrhagic or corpus luteum cyst. Left ovary 2.7 x 1.5 x 1.8 cm. Normal color Doppler of both ovaries. Spectral analysis not provided. No free fluid 10/24/2024 CA 125 [facility] History Hordeolum externum of right eye Itching Obesity (BMI 30-39.9) Sepsis Diverticulitis of both large and small intestine with perforation and abscess Diverticulitis of large intestine with abscess Morbid obesity with BMI of 50.0-59.9, adult Hypertension Vitamin D deficiency B12 deficiency Diabetic nephropathy associated with type 2 diabetes mellitus Dyslipidemia Hirsutism Diabetes type 2, uncontrolled Surgical History Hx of abdominal surgery Hx of umbilical hernia repair History of ankle surgery Hx of section Family History Father Throat cancer Cirrhosis Mother Diabetes Sister History of hysterectomy Social History Household Members: None Housing: House Do you presently have visiting nurse or other home services: Yes Alcohol intake: former Patient Tobacco Use Status: Current everyday Tobacco user Tobacco use type: Cigarette Cigarette Packs Per Day: 0.5 Cigarettes Per Day: 1 Years Smoked: 30 e-Cigarette/Vaping Use: Never Used Second Hand Smoke Exposure: Yes Substance Use Type: Marijuana Advance Directives Date on File: 05/05/21 service: No Current occupational status: disabled Cognitive needs: No Hearing needs: No Vision needs: Yes Review of Systems Const All systems reviewed & are unremarkable except as noted in HPI and below Reports as per HPI and Reports no additional complaints GI Reports no additional complaints Reports no additional complaints Physical Exam Vital Signs: BMI result Body Mass Index 36.1 Assessment & Plan Assessment & Plan (1) Complex cyst of right ovary: Code(s): N83.291 - Other ovarian cyst, right side Category: Medical Plan: Discussed with the patient the finding on ultrasound showing resolution of a left ovarian cyst, but the appearance of her right complex ovarian cyst. Discussed with the patient the Ultrasound findings, the main limitation of transvaginal ultrasonography alone as a diagnostic tool to distinguish benign from malignant masses relates to its lack of specificity and low positive predictive value for cancer. The differential diagnosis discussed with the patient includes the following but not limited to: benign and malignant gynecological and non-gynecological causes. Laboratory evaluation include UPT and GC/CT , serum tumor marker CA 125 . Discussed with the patient options of treatment including laparoscopy ovarian cystectomy/oophorectomy vs. expectant management with repeat US in repeating pelvic US in 6 weeks from previous US, ultrasound ordered and schedule. If the ovarian complex cyst is persistent larger and / or more complex looking, or higher CA 125 will refer to gynecologic Oncology. All pros, cons, risks and benefits of each approach were discussed with the patient including but not li mited to a delay in the diagnosis and treatment of ovarian cancer affecting the prognosis; The patient decided to go ahead with expectant management. Instructions given the patient to schedule a 6 weeks follow-up ultrasound appointment. All questions were answered & the patient verbalized understanding and agreed with the plan. Orders: Orders US pelvic and transvaginal 01/03/25 N83.299 - Other ovarian cyst, unspecified side Coding Level of Care Code Est Pt Level 3 (55607) Diagnoses Complex cyst of right ovary N83.291
[2024-12-04 12:01] VITALS: BMI 36.1
--- OUTSIDE RECORDS SUMMARY | 2024-12-04 12:39 | XMS_ITS | Encounter Summary ---
Author Organization [facility] Address [address] [place] [address] Care Team Providers Care Valve Liner Rubber Name Role Phone Mara Mcelroy MD Primary Care Provider Diogo Peck MD Primary Care Provider [phone] [facility], Pcp Primary Care Provider [facility] saige Encounter Details Date Type Department Care Team Description 12/05/2019 Orders Only Medicine/Pediatrics - [address] [address] Mara Mcelroy MD Elevated d-dimer; Pneumonia of [...] Mcelroy MD [facility] [address] [place] [address] documented in this encounter Visit Diagnoses Diagnosis Elevated d-dimer Abnormal coagulation profile Pneumonia of right lower lobe due to Chlamydia species documented in this encounter Care Teams Valve Liner Rubber Relationship Specialty Start Date End Date Mara Mcelroy MD PCP - General Internal Medicine 08/20/15 10/12/20 Diogo Wright MD [address] [place] [address] PCP - General Internal Medicine 10/13/20 11/01/21 [facility], Pcp [address] [place] [address] PCP - General Internal Medicine 11/02/21 documented as of this encounter
--- OUTSIDE RECORDS SUMMARY | 2024-12-04 12:39 | XMS_ITS | Encounter Summary ---
Author Organization [facility] Address [address] [place] [address] Care Team Providers Care Oncology Rep Specialist Name Role Phone Mara Mcelroy MD Primary Care Provider Diogo Peck MD Primary Care Provider [phone] [facility], Pcp Primary Care Provider [facility] saige Encounter Details Date Type Department Care Team Description 04/06/2020 Orders Only Adult Medicine [facility] [address] [place] [address] Arlin Hoover PA-C [address] [place], [place] [id number] Vitamin D deficiency (Primary Dx) Social History [...] deficiency documented in this encounter Care Teams Oncology Rep Specialist Relationship Specialty Start Date End Date Mara Mcelroy MD PCP - General Internal Medicine 08/20/15 10/12/20 Diogo Wright MD [address] [place] [address] PCP - General Internal Medicine 10/13/20 11/01/21 [facility], [address] [address] PCP - General Internal Medicine 11/02/21 documented as of this encounter
--- OUTSIDE RECORDS SUMMARY | 2024-12-04 12:39 | XMS_ITS | Clinical Summary ---
Author Organization [facility] Address [address] [place] [address] 7t [place] [address] Care Team Providers Care Offset Press Operator Apprentice Name Role Phone Unavailable Primary Care [...] Sodium Fluoride 1.1 % creamIndication s:Dental caries [place] teeth for 2 minutes, morning and night. [...] Description 11/08/2024 10:30 AM EDT Office Visit [facility] [address] [place] [address] Nirmal Odell DMD Dental caries (Primary Dx) 11/06/2024 11:00 AM EDT Office Visit [facility] [address] [place] [address] Mireya Cole 10/02/2024 Telephone [facility] [address] [place] [address] Nirmal Odell DMD 09/19/2024 Telephone [facility] [address] [place] [address] Nirmal Odell DMD from Last 3 Months Social History Tobacco [...] 1:00 PM EDT Office Visit [facility] [address] [place] [address] Mireya Cole Health Maintenance Due Date Last [...] PER QUADRANT Routine 11/06/2024 11:00 AM EDT PROPHYLAXIS - ADULT Routine 07/25/2024 2 :00 PM EST Dental caries Periodontal disease INTRAORAL - COMPLETE SERIES OF RADIOGRAPHIC IMAGES Routine 07/25/2024 2:00 PM EST Dental caries Periodontal disease PERIODIC ORAL EVALUATION - ESTABLISHED PATIENT Routine 07/25/2024 2:00 PM EST Dental caries Periodontal disease from Last 3 Months or Most Recently Relevant to Health Maintenance Insurance [facility] MEDICAID STAND ADULT
--- OUTSIDE RECORDS SUMMARY | 2024-12-04 12:39 | XMS_ITS | Encounter Summary ---
Author Organization [facility] Address [address] [place] [address] Care Team Providers Care Filenet Developer Name Role Phone Mara Mcelroy MD Primary Care Provider Diogo Peck MD Primary Care Provider [phone] [facility], Pcp Primary Care Provider [facility] Reason for Visit * Reason Onset Date Comments Pain, General 01/14/2020 Encounter Details Date Type Department Care Team Description 01/14/2020 Telephone Medicine/Pediatrics - [address] [address] Mara Mcelroy MD Pain, General Social History [...] ago and has had 3 appointments with Bethany. States she was referred to Neurology and [...] patient Dr Segura is currently working the [facility] here and might not be able to speak to her. Please advise documented in this encounter Plan of Treatment Not on file documented as of this encounter Visit Diagnoses Not on filedocumented in this encounter Care Teams Filenet Developer Relationship Specialty Start Date End Date Mara Mcelroy MD PCP - General Internal Medicine 08/20/15 10/12/20 Diogo Wright MD [address] [place] [address] PCP - General Internal Medicine 10/13/20 11/01/[address] [address] PCP - General Internal Medicine 11/02/21 documented as of this encounter
--- OUTSIDE RECORDS SUMMARY | 2024-12-04 12:39 | XMS_ITS | Encounter Summary ---
Author Organization [facility] Address [address] [place] [address] Care Team Providers Care Business Performance Analyst Name Role Phone Mara Mcelroy MD Primary Care Provider Diogo Peck MD Primary Care Provider [phone] [facility], Pcp Primary Care Provider [facility] Reason for Referral * Non LEANDRO (Routine) - Authorized/Booked Specialty Diagnoses / Procedures Referred By Alfred t Referred To Contact General Surgery Procedures REFERRAL TO GENERAL SURGERY Maurice Johnson PA-C [address] [place] [address] Fredrick Stokes MD [address] [place] [address] Referral ID Status Reason Start Date Expiration Date V isits Requested Visits Authorized [id number] Authorized/B ooked 2015 08/25/2016 12 12 Encounter Details Date Type Department Care Team Description 2015 Orders Only Medicine/Pediatrics - [address] [address] Maurice Johnson PA-C Social History Tobacco Use [...] on filedocumented in this encounter Care Teams Business Performance Analyst Relationship Specialty Start Date End Date Mara Mcelroy MD PCP - General Internal Medicine 08/20/15 10/12/20 Diogo Wright MD [address] [place] [address] PCP - General Internal Medicine 10/13/20 11/01/21 [facility], Pcp [address] [place] [address] PCP - General Internal Medicine 11/02/21 documented as of this encounter
--- OUTSIDE RECORDS SUMMARY | 2024-12-04 12:39 | XMS_ITS | Encounter Summary ---
Author Organization [facility] Address [address] [place] [address] Care Team Providers Care Collar Fuser Name Role Phone Mara Mcelroy MD Primary Care Provider Diogo Peck MD Primary Care Provider [phone] [facility], Pcp Primary Care Provider [facility] saige Encounter Details Date Type Department Care Team Description 05/11/2020 E Business Specialist Report Medical Records [address] [place] [address] Social History Tobacco Use Types Packs/Day Years [...] filedocumented in this encounter Care Teams Collar Fuser Relationship Specialty Start Date End Date Mara Mcelroy MD PCP - General Internal Medicine 08/20/15 10/12/20 Diogo Wright MD [address] [place] [address] PCP - General Internal Medicine 10/13/20 11/01/21 [facility], Pcp [address] [place] [address] PCP - General Internal Medicine 11/02/21 documented as of this encounter
--- OUTSIDE RECORDS SUMMARY | 2024-12-04 12:39 | XMS_ITS | Encounter Summary ---
Author Organization [facility] Address [address] [place] [address] Care Team Providers Care Blade Operator Name Role Phone Mara Mcelroy MD Primary Care Provider Diogo Peck MD Primary Care Provider [phone] [facility], Pcp Primary Care [facility] Encounter Details Date Type Department Care Team Description 06/29/2018 Orders Only Medical Records [address] [place] [address] Rick Sanchez MD [address] [place] [phone] Social History Tobacco Use Types Packs/Day [...] on filedocumented in this encounter Care Teams Blade Operator Relationship Specialty Start Date End Date Mara Mcelroy MD PCP - General Internal Medicine 08/20/15 10/12/20 Diogo Wright MD [address] [place] [address] PCP - General Internal Medicine 10/13/20 11/01/21 [facility], Pcp [address] [place] [address] PCP - General Internal Medicine 11/02/21 documented as of this encounter
--- OUTSIDE RECORDS SUMMARY | 2024-12-04 12:39 | XMS_ITS | Encounter Summary ---
Author Organization [facility] Address [address] [place] [address] Care Team Providers Care Stock Transfer Clerk Name Role Phone Mara Mcelroy MD Primary Care Provider Diogo Peck MD Primary Care Provider [phone] Replaced By [facility], Pcp Primary Care Provider [facility] saige Encounter Details Date Type Department Care Team Description 12/11/2015 Controlled Substance Contract with Plan Medical Records [address] [place] [address] Abstract, Provider Social History Tobacco Use Types [...] on filedocumented in this encounter Care Teams Stock Transfer Clerk Relationship Specialty Start Date End Date Mara Mcelroy MD PCP - General Internal Medicine 08/20/15 10/12/20 Diogo Wright MD [address] [place] [phone] PCP - General Internal Medicine 10/13/20 11/01/21 Replaced By [facility], Pcp [address] [place] [address] PCP - General Internal Medicine 11/02/21 documented as of this encounter
--- OUTSIDE RECORDS SUMMARY | 2024-12-04 12:39 | XMS_ITS | Encounter Summary ---
Author Organization [facility] Address [address] [place] [address] Care Team Providers Care Patternmaker Plastics Name Role Phone Mara Mcelroy MD Primary Care Provider Diogo Peck MD Primary Care Provider [phone] [facility], Pcp Primary Care [facility] Encounter Details Date Type Department Care Team Description 08/31/2018 Release of Information Medical Records [address] [place] [address] Abstract, Provider Social History Tobacco Use Types [...] on filedocumented in this encounter Care Teams Patternmaker Plastics Relationship Specialty Start Date End Date Mara Mcelroy MD PCP - General Internal Medicine 08/20/15 10/12/20 Diogo Wright MD [address] [place] [address] PCP - General Internal Medicine 10/13/20 11/01/21 [facility], Pcp [address] [place] [address] PCP - General Internal Medicine 11/02/21 documented as of this encounter
--- OUTSIDE RECORDS SUMMARY | 2024-12-04 12:39 | XMS_ITS | Encounter Summary ---
Author Organization [facility] Address [address] [place] [address] Care Team Providers Care Mathematics Faculty Member Name Role Phone Mara Mcelroy MD Primary Care Provider Diogo Peck MD Primary Care Provider [phone] [facility], Pcp Primary Care Provider [facility] Encounter Details Date Type Department Care Team Description 03/18/2020 Tobacco Sampler Report Medical Records [address] [place] [address] [facility] Social History Tobacco Use Types Packs/Day [...] on filedocumented in this encounter Care Teams Mathematics Faculty Member Relationship Specialty Start Date End Date Mara Mcelroy MD PCP - General Internal Medicine 08/20/15 10/12/20 Diogo Wright MD [address] [place] [address] PCP - General Internal Medicine 10/13/20 11/01/21 [facility], Pcp [address] [place] [address] PCP - General Internal Medicine 11/02/21 documented as of this encounter
--- OUTSIDE RECORDS SUMMARY | 2024-12-04 12:39 | XMS_ITS | Encounter Summary ---
Author Organization [facility] Address [address] [place] [address] Care Team Providers Care Security Shift Manager Name Role Phone Diogo Wright MD Primary Care Provider [phone] [facility], Pcp Primary Care Provider Unavailabl e Encounter Details Date Type Department Care Team Description 02/08/2021 Product Steward Report Medical Records [address] [place] [address] Helder Pablo MD Social History Tobacco Use [...] on filedocumented in this encounter Care Teams Security Shift Manager Relationship Specialty Start Date End Date Diogo Wright MD [address] [place] [address] PCP - General Internal Medicine 10/13/20 11/01/21 [facility], Pcp [address] [place] [address] PCP - General Internal Medicine 11/02/21 documented as of this encounter
--- OUTSIDE RECORDS SUMMARY | 2024-12-04 12:39 | XMS_ITS | Encounter Summary ---
Author Organization [facility] Address [address] [place] [address] Care Team Providers Care Audit Reviewer Name Role Phone Mara Mcleroy MD Primary Care Provider Diogo Peck MD Primary Care Provider [phone] [facility], Pcp Primary Care Provider [facility] Encounter Details Date Type Department Care Team Description 09/15/2020 Event Technician Report Medical Records [address] [place] [address] Helder Pablo MD Social History Tobacco Use [...] on filedocumented in this encounter Care Teams Audit Reviewer Relationship Specialty Start Date End Date Mara Mcelroy MD PCP - General Internal Medicine 08/20/15 10/12/20 Diogo Wright MD [address] [place] [address] [phone] PCP - General Internal Medicine 10/13/20 11/01/21 [facility], Pcp [address] [place] [address] PCP - General Internal Medicine 11/02/21 documented as of this encounter
--- OUTSIDE RECORDS SUMMARY | 2024-12-04 12:39 | XMS_ITS | Encounter Summary ---
Author Organization [facility] Address [address] [place] [address] Care Team Providers Care Parts Counterperson Name Role Phone Mara Mcelroy MD Primary Care Provider Diogo Peck MD Primary Care Provider [phone] [facility], Pcp Primary Care Provider Unavailabl e Reason for Referral * Non LEANDRO (Routine) - Authorized/Booked Specialty Diagnoses / Procedures Referred By Alfred joseph Referred To Contact Mental Health Procedures REFERRAL TO BEHAVIORAL HEALTH Mara Mcelroy MD [address] [place] [address] [facility]/[address] [address] Referral ID Status Reason Start Date Expiration Date V isits Requested Visits Authorized APPT BOOKED Authorized/B ooked 01/10/2019 01/10/2020 1 1 Reason for Visit * Reason Onset Date Comments REFERRAL 01/09/2019 Encounter Details Date Type Department Care Team Description 01/09/2019 Telephone Adult Medicine - [place] [address] [place] [address] Mara Mcelroy MD REFERRAL Social [...] I am requesting a Referral to the [facility] in [facility]; patient has a hx of PTSD and anxiety. Thank you, Maria Teresa documented in this encounter Plan of Treatment Not on file documented as of this encounter Visit Diagnoses Not on filedocumented in this encounter Care Teams Parts Counterperson Relationship Specialty Start Date End Date Mara Mcelroy MD PCP - General Internal Medicine 08/20/15 10/12/20 Diogo Wright MD [address] [place] [address] PCP - General Internal Medicine 10/13/20 11/01/21 [facility], Pcp [address] [place] [address] PCP - General Internal Medicine 11/02/21 documented as of this encounter
--- OUTSIDE RECORDS SUMMARY | 2024-12-04 12:39 | XMS_ITS | Encounter Summary ---
Author Organization [facility] Address [address] [place] [address] Care Team Providers Care Service Coordinator Name Role Phone Mara Mcelroy MD Primary Care Provider Diogo Peck MD Primary Care Provider [phone] [facility], Pcp Primary Care Provider [facility] Encounter Details Date Type Department Care Team Description 06/26/[address] [phone] Helder Segura MD Social History Tobacco Use [...] on filedocumented in this encounter Care Teams Service Coordinator Relationship Specialty Start Date End Date Mara Mcelroy MD PCP - General Internal Medicine 08/20/15 10/12/20 Diogo Wright MD [address] [place] [address] [phone] PCP - General Internal Medicine 10/13/20 11/01/21 [facility], Pcp [address] [place] [address] PCP - General Internal Medicine 11/02/21 documented as of this encounter
--- OUTSIDE RECORDS SUMMARY | 2024-12-04 12:39 | XMS_ITS | Encounter Summary ---
Author Organization [facility] Address [address] [place] [address] Care Team Providers Care Finish Repair Worker Name Role Phone Mara Mcelroy MD Primary Care Provider Diogo Peck MD Primary Care Provider [phone] [facility], Pcp Primary Care Provider Unavailabl e Reason for Referral * Non LEANDRO (Routine) - Authorized/Booked Specialty Diagnoses / Procedures Referred By Contfiliberto t Referred To Contact General Surgery Diagnoses Umbilical hernia without obstruction and without gangrene Procedures REFERRAL TO GENERAL SURGERY (IN NETWORK) Arlin Hoover PA-C [address] [place] [address] Gen Surg/[place] [address] [address] Referral ID Status Reason Start Date Expiration Date V isits Requested Visits Authorized [id number] Authorized/B ooked 12/11/2019 12/10/2020 1 1 Encounter Details Date Type Department Care Team Description 12/11/2019 Orders Only Adult Medicine [address] [address] Arlin Hoover PA-C [address] [place] [address] [phone] Umbilical hernia without obstruction and without gangrene [...] Primary documented in this encounter Care Teams Finish Repair Worker Relationship Specialty Start Date End Date Mara Mcelroy MD PCP - General Internal Medicine 08/20/15 10/12/20 Diogo Wright MD [address] [place] [address] PCP - General Internal Medicine 10/13/20 11/01/21 [place] [address] PCP - General Internal Medicine 11/02/21 documented as of this encounter
--- OUTSIDE RECORDS SUMMARY | 2024-12-04 12:39 | XMS_ITS | Encounter Summary ---
Author Organization [facility] Address [address] [place] [address] Care Team Providers Care Learning Specialist Name Role Phone Mara Mcelroy MD Primary Care Provider Diogo Peck MD Primary Care Provider [phone] [facility], Pcp Primary Care Provider [facility] Uniterrol m[place] Encounter Details Date Type Department Care Team Description 09/18/2020 Old Medical Records Medical Records [address] [place] [address] Abstract, Provider Social History Tobacco Use Types [...] on filedocumented in this encounter Care Teams Learning Specialist Relationship Specialty Start Date End Date Mara Mcelroy MD PCP - General Internal Medicine 08/20/15 10/12/20 Diogo Wright MD [address] [place] [address] [phone] PCP - General Internal Medicine 10/13/20 11/01/21 [facility], Pcp [address] [place] [address] PCP - General Internal Medicine 11/02/21 documented as of this encounter
--- OUTSIDE RECORDS SUMMARY | 2024-12-04 12:39 | XMS_ITS | Data Portability ---
Author Organization [place] [facility] Allergy Address [address] [place] [phone] Assessment Encounter Date Assessment Date Assessment LastModified [...] None recorded. Referral neurologist referral 2023 024 [id number] 2 [facility] Neurology Scheduling, [address] [place], [address], 4 10:41:05 Procedures None recorded. Surgeries None [...] Organization Details Recorded Time Abnormal auditory perception 25127759 Active 2023 Savannah chicas [place] - [facility] [place] 16:32:03 Migraine without aura 67608558 Active 2023 JUNIE RICH PA-C [address] [place] [address],[address], [address], [facility] [place] 4 16:52:39 Dizziness and giddiness 894175720 Active 2023 JUNIE RICH PA-C [address] [place] [address], [address], [facility] [place] 4 16:52:43 Bilateral earache 227257515 Active 2023 JUNIE RICH PA-C [address] [place] [address],[address], [address], [facility] [place] 4 16:52:54 Bilateral temporomand ibular joint pain 2537148231167 9105 Active 2023 JUNIE RICH PA-C [address] [place] [address], [address], [facility] [place] 4 16:53:00 Problem Notes None recorded. Procedures Surgical History Date Name Laterality Status Provider Name and Address Organization Details Recorded Time Comp Audio with Tymps - 27003 & 76383 completed Savannah Goldsmith [place] - [facility] [place] 12/29/2023 16:30:31 Cerumen removal without microscope left completed JUNIE RICH PA-C [address] [place] [address],[place] [address], [place], [address], [facility] - [facility] 12/29/2023 14:56:07 Imaging Results Imaging Date [...] Note 3283 JUNIE RICH PA-C [facility] [address] [address] 12/29/2023 13:49:33 12/29/2023 16:39:20 Abnormal auditory perception 11993246 H93.299 Audiologic al evaluation results: Right ear: [...] a hermetic seal}} Migraine without aura 56 032755 G43.009 Dizziness and giddiness 133987205 R42 Bilateral earache 820822 003 H92.03 Bilateral temporomandibular joint pain [id number] M26.623 Health Concerns Section Related Observation LastModified by Organization Detai ls LastModified Time None Recorded Concern Status LastModified by Organization Details LastModified Time None Recorded Advance Directives Directive None Recorded Payers Insurance Date Sequence Insurance Name Policy Number Policy Rodriguez Covered Member ID Rodriguez Member ID Guarantor Name 06/30/2024 1 [facility] (MEDICAID HMO) BURTON Quiñonez [id number] Mckenzie Quiñonez Notes Date Note Type Note [...] in several years. JUNIE RICH PA-C [address] [facility],[place] [address], [place], [address], [place] - [facility] 12/29/2023 16:53:54 OBGyn Episode No OBEpisode recorded.
--- OUTSIDE RECORDS SUMMARY | 2024-12-04 12:39 | XMS_ITS | Encounter Summary ---
Author Organization [facility] Address [address] [place] [address] Care Team Providers Care Reconnaissance Crewmember Name Role Phone Mara Mcelroy MD Primary Care Provider Diogo Peck MD Primary Care Provider [phone] [facility], Pcp Primary Care Provider [facility] Reason for Visit * Reason Onset Date Comments Care Management 03/31/2020 care management Encounter Details Date Type Department Care Team Description 03/31/2020 Telephone Adult Medicine [address] [phone] Arlin Hoover PA-C [address] [place] [address] Care Management (care management) Social History Tobacco [...] the following POC and has graduated from [facility] (currently not eligible for CCM): facilitated PCP f/u appointments, transportation (PT1), medication delivery, housing application assistance, asthma and diabetes education and S assistance The patient is currently working with a Behavioral Health Community Partner from [facility] Pilar [phone]. This nurse has spoken with Pilar and advised of the positive screening; food insecurity (currently receives [employer] benefits), transportation (Pilar has provided information to [employer]/PT1) and financial issues; and will reach out to Mckenzie. Please note that the patient will frequently go months with out returning care team attempts to engage via t/c and or t/m. If you have further questions I can be reached at [phone]. Thank you, Maria Teresa MELGARN, RN, [facility] Complex Salesperson [employer] [facility] ACO [phone] cell * Telephone Encounter - Ese Khan [...] on filedocumented in this encounter Care Teams Reconnaissance Crewmember Relationship Specialty Start Date End Date Mara Mcelroy MD PCP - General Internal Medicine 08/20/15 10/12/20 Diogo Wright MD [address] [place] [address] PCP - General Internal Medicine 10/13/20 11/01/21 [facility], [place] [address] PCP - General Internal Medicine 11/02/21 documented as of this encounter
--- OUTSIDE RECORDS SUMMARY | 2024-12-04 12:39 | XMS_ITS | Clinical Summary ---
Author Organization [facility] it Address [address] [place] [address] Care Team Providers Care Computer Service Technician Name Role Phone Diogo Wright MD Primary Care Provider [phone] Allergies Active Allergy Reactions Criticality Noted Date [...] 12/19/2019 Fatty liver 12/11/2019 Asthma-COPD overlap syndrome ([facility] V24, [facility] V28) 01/23/2019 Mediastinal lymphadenopathy 01/23/2019 Pulmonary nodules 01/23/2019 Hidradenitis 12/14/2018 Obesity (BMI 30-39.9) 08/01/2018 Snoring 06/29/2018 Overview (07/22/2024): 05/2018 Home Sleep Study did not reveal sleep apnea. Type 2 diabetes mellitus ([facility] V24, [facility] V 28) 04/26/2018 Vitamin D deficiency 04/26/2018 [...] s/p repair Anxiety 12/11/2015 DX:Anxiety Emphysema, unspecified ([facility] V24, [facility] V28) 01/06 DX:Emphysema, unspecified ([facility]); COMMENT: per patient Obesity DX:Obesity COPD (chronic obstructive pu lmonary disease) ([facility] V24, [facility] V28) DX:COPD (chronic o bstructive pulmonary disease) ([facility]) Tobacco abuse DX:Tobacco abuse Type 2 diabetes mellitus ( S/[facility] V24, [facility] V28) DX:Type 2 diabetes mellitus ([facility]) Vitamin D deficiency DX:Vitamin D deficiency Anxiety DX:Anxiety Hyperlipidemia DX:Hyperlipidemi a Family History Medical History Relation Name Comments Breast cancer Aunt paternal ?age Suicide Attempts Brother x 1 Throat cancer Father (+smoker), HOUSEHOLD APPLIANCE MECHANIC D, HTN, liver transplant Heart failure Maternal [...] Results * Urine Albumin Creatinine Ratio (03/27/2020) [facility] Urine Albumin Creatinine Ratio abstracted Result [facility] Final Result * Annual BMP Blood Test (03/27/2020) [facility] Annual BMP Blood Test abstracted Result [facility] Final Result * (ABNORMAL) Hemoglobin A1c (03/27/2020) [facility] Hemoglobin A1C 7.2(A) <=6.5 % Blood Venous blood specimen / Unknown Result [facility]LO[facility] ORDERABLES Celsa l Result * (ABNORMAL) Lipid panel (03/27/2020) [facility] LDL/HDL Ratio 9(A) 0 - 4 Triglycerides 388(A) 0 - 150 mg/dL Cholesterol 285(A) 0 - 200 mg/dL HDL 31(A) >=40 mg/dL LDL Cholesterol 177(A) 0 - 100 mg/dL Blood Venous blood specimen / Unknown Result [facility] ORDER[facility] Celsa l Result * HIV Screening (08/23/2018) [facility] HIV Screening abstracted Result [facility] Final Result * Hepatitis C Screening (08/23/2018) [facility] Hepatitis C Screening abstracted Result [facility] Final Result * Cervical Cancer Screening: HPV (02/09/2016) [facility] Cervical Cancer Screening: HPV negative, abstracted Result [facility] Final Result from Last 3 Months or Most Recently Relevant to Health Maintenance Care Teams Computer Service Technician Relationship Specialty Start Date End Date Diogo Wright MD PCP - General Internal Medicine 03/12/21
--- OUTSIDE RECORDS SUMMARY | 2024-12-04 12:39 | XMS_ITS | Encounter Summary ---
Author Organization [facility] Address [address] [place] [address] Care Team Providers Care Airplane Patroller Name Role Phone Mara Mcelroy MD Primary Care Provider Diogo Peck MD Primary Care Provider [phone] [facility], Pcp [facility] Encounter Details Date Type Department Care Team Description 08/22/2018 Orders Only Medical Records [address] [place] [address] Christie Harris PA-C Social History Tobacco Use [...] on filedocumented in this encounter Care Teams Airplane Patroller Relationship Specialty Start Date End Date Mara Mcelroy MD PCP - General Internal Medicine 08/20/15 10/12/20 Diogo Wright MD [address] [place] [address] PCP - General Internal Medicine 10/13/20 11/01/21 [facility], Pcp [address] [place] [address] PCP - General Internal Medicine 11/02/21 documented as of this encounter
--- OUTSIDE RECORDS SUMMARY | 2024-12-04 12:39 | XMS_ITS | Encounter Summary ---
Author Organization [facility] Address [address] [place] [address] Care Team Providers Care Mail Carrier And Clerk Name Role Phone Mara Mcelroy MD Primary Care Provider Diogo Peck MD Primary Care Provider [phone] [facility], Pcp Primary Care Provider [facility] saige Encounter Details Date Type Department Care Team Description 01/27/2017 Telephone Medicine/Pediatrics - [address] [address] Mara Mcelroy MD Social History Tobacco Use [...] on filedocumented in this encounter Care Teams Mail Carrier And Clerk Relationship Specialty Start Date End Date Mara Mcelroy MD PCP - General Internal Medicine 08/20/15 10/12/20 Diogo Wright MD [address] [place] [address] PCP - General Internal Medicine 10/13/20 11/01/21 [facility], Pcp [address] [place] [address] PCP - General Internal Medicine 11/02/21 documented as of this encounter
--- OUTSIDE RECORDS SUMMARY | 2024-12-04 12:39 | XMS_ITS | Encounter Summary ---
Author Organization [facility] Address [address] [facility] [place] [place] Care Team Providers Care Legal Office Administrator Name Role Phone Diogo Wright MD Primary Care Provider [facility], Pcp Primary Care Provider Unavailabl e Encounter Details Date Type Department Care Team Description 05/27/2021 [facility] Report Medical Records [address] [place] [address] Abstract, Provider Social History Tobacco Use Types [...] on filedocumented in this encounter Care Teams Legal Office Administrator Relationship Specialty Start Date End Date Diogo Wright MD [address] [place] [address] [id number] PCP - General Internal Medicine 10/13/20 11/01/21 [facility], Pcp [address] [place] [address] PCP - General Internal Medicine 11/02/21 documented as of this encounter
--- OUTSIDE RECORDS SUMMARY | 2024-12-04 12:39 | XMS_ITS | Encounter Summary ---
Author Organization [facility] Address [address] [place] [address] Care Team Providers Care Drill Runner Name Role Phone Mara Mcelroy MD Primary Care Provider Diogo Peck MD Primary Care Provider [phone] [facility], Pcp Primary Care Provider [facility] saige Encounter Details Date Type Department Care Team Description 04/23/2018 Hospital Medical Records [address] [place] [address] Sabas Rodriguez MD Social History Tobacco Use [...] on filedocumented in this encounter Care Teams Drill Runner Relationship Specialty Start Date End Date Mara Mcelroy MD PCP - General Internal Medicine 08/20/15 10/12/20 Diogo Wright MD [address] [place] [address] [phone] PCP - General Internal Medicine 10/13/20 11/01/21 [facility], Pcp [address] [place] [address] PCP - General Internal Medicine 11/02/21 documented as of this encounter
--- OUTSIDE RECORDS SUMMARY | 2024-12-04 12:39 | XMS_ITS | Encounter Summary ---
Author Organization [facility] Address [address] [place] [address] Care Team Providers Care Sweatband Maker Name Role Phone Mara Mcelroy MD Primary Care Provider Diogo Peck MD Primary Care Provider [phone] [facility], Pcp Primary Care Provider Unavailabl e Reason for Referral * EXTERNAL (Routine) - YAEL Not Received/Patient Declined Specialty Diagnoses / Procedures Referred By Alfred t Referred To Contact Pulmonology Procedures REFERRAL TO PULMONOLOGY Mara Mcelroy MD [address] [place] [id number] [facility] [address] [place] [address] Referral ID Status Reason Start Date Expiration Date V isits Requested Visits Authorized SEE NOTE YAEL Not Received/Kristi ent Declined 04/12/2017 07/13/2017 1 1 Reason for Visit * Reason Onset Date Comments Coremaking Supervisor Feedback 04/12/2017 Dr. Brown Encounter Details Date Type Department Care Team Description 04/12/2017 Telephone Medicine/Pediatrics - [address] [address] Mara Mcelroy MD Coremaking Supervisor Feedback (Dr. Brown) Social History Tobacco Use [...] / Plan: MEDICAID PCC / Product Type:MEDICAID [id number] Effective 04/23/09: BCBS will not retro referral [...] insurance must be obtained and registered in [facility] or their referral can not be [...] YES Is this visit:Initial Visit Address of Specialist:[address] [place] [address], [address], [place], [place] Phone # of Specialist:[phone] Fax #: (if applicable): Does patient have an appointment scheduled?: NO Date of appointment- (including a retro-request): TBD Is this appointment related to: Not MVA, WC or Surgery related documented in this encounter Plan of Treatment Not on file documented as of this encounter Visit Diagnoses Not on filedocumented in this encounter Care Teams Sweatband Maker Relationship Specialty Start Date End Date Mara Mcelroy MD PCP - General Internal Medicine 08/20/15 10/12/20 Diogo Wright MD [address] [place] [address] PCP - General Internal Medicine 10/13/20 11/01/21 [facility], [place] [address] PCP - General Internal Medicine 11/02/21 documented as of this encounter
--- OUTSIDE RECORDS SUMMARY | 2024-12-04 12:39 | XMS_ITS | Encounter Summary ---
Author Organization [facility] Address [address] [place] [address] Care Team Providers Care Supervisor Roving Department Name Role Phone Diogo Wright MD Primary Care Provider [phone] [facility], Pcp [facility] Encounter Details Date Type Department Care Team Description 04/14/2021 Hospital Medical Records [address] [place] [address] Darien Becker Social History Tobacco Use Types [...] on filedocumented in this encounter Care Teams Supervisor Roving Department Relationship Specialty Start Date End Date Diogo Wright MD [address] [place] [address] [phone] PCP - General Internal Medicine 10/13/20 11/01/21 [facility], Pcp [address] [place] [phone] PCP - General Internal Medicine 11/02/21 documented as of this encounter
--- OUTSIDE RECORDS SUMMARY | 2024-12-04 12:39 | XMS_ITS | Encounter Summary ---
Author Organization [facility] Address [address] [place] [address] Care Team Providers Care Home Furnishings Sales Representative Name Role Phone Diogo Wright MD Primary Care Provider [facility], Pcp Primary Care Provider Unavailabl e Encounter Details Date Type Department Care Team Description 04/06/2021 Hospital Medical Records [address] [place] [address] Kaushik Gómez MD Social History Tobacco Use [...] on filedocumented in this encounter Care Teams Home Furnishings Sales Representative Relationship Specialty Start Date End Date Diogo Wright MD [address] [place] [address] PCP - General Internal Medicine 10/13/20 11/01/21 [facility], Pcp [address] [place] [address] PCP - General Internal Medicine 11/02/21 documented as of this encounter
--- OUTSIDE RECORDS SUMMARY | 2024-12-04 12:39 | XMS_ITS | Clinical Summary ---
[facility] Address [address] [place] [address] Care Team Providers Care Director Of Undergraduate Admissions Name Role Phone Diogo Wright MD Primary Care Provider [phone] Allergies Active Allergy Reactions Criticality Noted Date [...] age to complete this topic Care Teams Director Of Undergraduate Admissions Relationship Specialty Start Date End Date Diogo Wright MD PCP - General Internal Medicine 03/12/21
--- OUTSIDE RECORDS SUMMARY | 2024-12-04 12:40 | XMS_ITS | Encounter Summary ---
Author Organization [facility] Address [address] [place] [address] Care Team Providers Care Steam Frame Operator Name Role Phone Diogo Wright MD Primary Care Provider [phone] [facility], [facility], Pcp Primary Care Provider Unavailabl e Reason for Visit * Reason Onset Date Comments VNA Call 07/19/2021 Encounter Details Date Type Department Care Team Description 07/19/2021 Telephone Adult Medicine [facility] [address] [place] [address] [phone] Diogo Wright MD [address] [place] [address] [phone] [facility] Call Social History Tobacco Use Types [...] VNA CALL Which VNA office is calling? Formerly [facility] Full name of caller: Meme The caller is A nurse Is the caller at the patients home?: NO Reason for call: Meme is calling as an FYI to let us know that the patient was admitted into [facility] on 07/16/21 and was discharged on 07/17/21 [...] on filedocumented in this encounter Care Teams Steam Frame Operator Relationship Specialty Start Date End Date Diogo Wright MD [address] [place] [address] PCP - General Internal Medicine 10/13/20 11/01/21 [place] [address] PCP - General Internal Medicine 11/02/21 documented as of this encounter
--- OUTSIDE RECORDS SUMMARY | 2024-12-04 12:40 | XMS_ITS | Encounter Summary ---
Author Organization [facility] Address [address] [place] [address] Care Team Providers Care Photo Mask Inspector Name Role Phone Mara Mcelroy MD Primary Care Provider Diogo Peck MD Primary Care Provider [phone] [facility], Pcp [facility] Encounter Details Date Type Department Care Team Description 01/10/2019 [facility] Medical Records [address] [place] [address] Abstract, Provider Social History Tobacco Use Types [...] on filedocumented in this encounter Care Teams Photo Mask Inspector Relationship Specialty Start Date End Date Mara Mcelroy MD PCP - General Internal Medicine 08/20/15 10/12/20 Diogo Wright MD [address] [place] [address] PCP - General Internal Medicine 10/13/20 11/01/21 [facility], Pcp [address] [place] [address] PCP - General Internal Medicine 11/02/21 documented as of this encounter
--- OUTSIDE RECORDS SUMMARY | 2024-12-04 12:40 | XMS_ITS | Encounter Summary ---
Author Organization [facility] Address [address] [place] [address] Care Team Providers Care Forestry Fire Aid Name Role Phone Mara Mcelroy MD Primary Care Provider Diogo Peck MD Primary [facility] Provider [facility]cp [facility] Encounter Details Date Type Department Care Team Description 04/05/2019 Old Medical Records Medical Records [address] [place] [address] Abstract, Provider Social History Tobacco Use Types [...] on filedocumented in this encounter Care Teams Forestry Fire Aid Relationship Specialty Start Date End Date Mara Mcelroy MD PCP - General Internal Medicine 08/20/15 10/12/20 Diogo Wright MD [address] [place] [address] PCP - General Internal Medicine 10/13/20 11/01/21 [facility], Pcp [address] [place] [address] PCP - General Internal Medicine 11/02/21 documented as of this encounter
== END 2024-12-04 12:43 | disposition home or self-care (01) ==
LOC: HO.HWS 11:55
PROVIDERS: PCP Physician Assistant; Visit Provider Obstetrics & Gynecology
DX: N83.291 Other ovarian cyst, right side (principal)
CPT/HCPCS: 99213

== ENCOUNTER → 2024-12-04 11:54 | Outpatient (BNVA) | payer OTHER, SELFPAY | PROVIDERS: PCP Physician Assistant; Visit Provider Obstetrics & Gynecology | DX: N83.291 Other ovarian cyst, right side (principal) | CPT/HCPCS: 99212 ==

== ENCOUNTER 2024-12-09 15:35 | Outpatient (AMB) | payer OTHER, SELFPAY ==
--- OUTSIDE RECORDS SUMMARY | 2024-12-09 15:38 | XMS_ITS | Clinical Summary ---
Author Organization [facility] Address [address] [place] [address] Care Team Providers Care Mushroom Spawn Maker Name Role Phone Diogo Wright MD Primary Care Provider [phone] Allergies Active Allergy Reactions Criticality Noted Date [...] age to complete this topic Care Teams Mushroom Spawn Maker Relationship Specialty Start Date End Date Diogo Wright MD PCP - General Internal Medicine 03/12/21
[2024-12-09 15:39] VITALS: BP 140/88; PULSE 89; O2SAT 98; BMI 37.4
--- NOTE | 2024-12-09 15:39 | MHC.OFFVIS ---
Vital Signs 12/09/24 15:39 Height 5 ft 5 in Weight 224 lb 13.944 oz BMI 37.4 BP 140/88 H Blood Pressure Location Rt brachial Position Sitting Pulse 89 Pulse Source Pulse Oximeter Pulse Oximetry (%) 98 Oxygen Delivery Method Room Air Intake Visit Reasons: Emphysema Allergies latex [LATEX] Allergy (Mild, Verified 12/09/24 15:42) RASH Iodinated Contrast Media [IV Contrast Dye] Allergy (Verified 12/09/24 15:42) Anaphylaxis amoxicillin Adverse Reaction (Unknown, Verified 12/09/24 15:42) vaginal infection dulaglutide [From Trulicity] Adverse Reaction (Unknown, Verified 12/09/24 15:42) vomitting, nausea semaglutide [From Ozempic] Adverse Reaction (Unknown, Verified 12/09/24 15:42) Chest pain, vomitting HPI HPI Emphysema: Details: Mckenzie is a pleasant 49-year-old female, current smoker, with 18+ pyh with underlying asthma, coronary artery disease, GERD, hypertension and diabetes. She was referred by PCP for pulmonary evaluation. She is suboptimally controlled on Ventolin, and using an Advair, with worsening asthma control over the last few months. She continues to report chronic dry cough, wheezing, and dyspnea on exertion. She reports asthma diagnosed as an adult, never requiring intubation. She endorses seasonal allergies, no recent allergy testing. She has two parakeets at home. She reports mother and son with asthma. She denies any occupational exposures. REPLACED BY [facility] Medical History Hordeolum externum of right eye Itching Obesity (BMI 30-39.9) Sepsis Diverticulitis of both large and small intestine with perforation and abscess Diverticulitis of large intestine with abscess Morbid obesity with BMI of 50.0-59.9, adult Hypertension Vitamin D deficiency B12 deficiency Diabetic nephropathy associated with type 2 diabetes mellitus Dyslipidemia Hirsutism Diabetes type 2, uncontrolled Surgical History Hx of abdominal surgery Hx of umbilical hernia repair History of ankle surgery Hx of section Family History Father Throat cancer Cirrhosis Mother Diabetes Sister History of hysterectomy Social History Household Members: None Housing: House Do you presently have visiting nurse or other home services: Yes Alcohol intake: former Patient Tobacco Use Status: Current everyday Tobacco user Tobacco use type: Cigarette Cigarette Packs Per Day: 0.5 Cigarettes Per Day: 1 Years Smoked: 30 e-Cigarette/Vaping Use: Never Used Second Hand Smoke Exposure: Yes Substance Use Type: Marijuana Advance Directives Date on File: 05/05/21 service: No Current occupational status: disabled Cognitive needs: No Hearing needs: No Vision needs: Yes Review of Systems Const Denies chills, Denies excessive sweating, Denies fever(s), Denies headache(s) and Denies night sweats Eyes Denies dry eyes, Denies irritation and Denies itchy eyes ENT Reports Normal hearing present, Denies headache(s), Denies nasal congestion, Denies nasal discharge, Denies post nasal drip and Denies sore throat Card Denies chest pain, Denies chest pain at rest, Denies chest pain with activity, Denies claudication, Denies leg edema, Reports dyspnea on exertion, Denies orthopnea and Denies paroxysmal nocturnal dyspnea Resp Denies change in phlegm color, Denies chest congestion, Reports cough, Denies hemoptysis, Denies excessive phlegm production, Denies pain on inspiration, Denies pain with cough, Reports dyspnea on exertion, Denies stridor and Reports wheezing Musc Denies myalgias Neuro Reports Normal hearing present and Denies headache(s) Endo Denies excessive sweating Abhijit/Lymph Denies lymphadenopathy Aller/Immun Denies itchy eyes, Denies seasonal rhinorrhea and Reports wheezing Physical Exam Vital Signs: BMI result Body Mass Index 37.4 Const General: cooperative, healthy appearing, comfortable, no acute distress, well developed and alert Nutritional Appearance: obese Orientation/consciousness: patient oriented x3 Limitations: no limitations HEENT Head: Yes normal to inspection, Yes normocephalic and Yes atraumatic Ears: hearing grossly normal bilaterally and external ears normal Eyes General: appearance normal, both eyes and all related structures Eyelids: Yes eyelids normal Sclerae: sclerae normal EOM: EOMs intact bilaterally Neck Neck: Yes normal visual inspection and Yes no lymphadenopathy Lymphatic: no lymphadenopathy noted Chest Chest palpation & inspection: normal inspection of the chest Resp Effort & Inspection: normal respiratory effort, able to speak in complete sentences, no audible wheezes, no cough, no stridor, not tachypneic, no tripod positioning and no use of accessory muscles Auscultation: clear to auscultation bilaterally Cardio Jugular venous distension: no JVD Rate: regular rate Rhythm: regular rhythm Skin Other: warm, dry General skin exam: no rashes or lesions noted Neuro General: patient oriented x3 Cranial nerves: Yes Normal hearing present Cognition (Neuro): normal cognition Gait exam (Neuro): Normal gait present Extrem General: Yes normal to inspection, Yes capillary refill normal, Yes no clubbing, cyanosis or edema and Yes no pedal edema Psych Appearance: grossly normal and well kempt Speech and movement: Normal speech and movement present and Clear speech present Affect: normal affect Attitude: cooperative Thought process: Normal thought process present Thought content: Normal thought content present Insight: Good insight present (Psych) Judgement: Good judgement present (Psych) Assessment & Plan Assessment & Plan (1) Asthma: Code(s): J45.909 - Unspecified asthma, uncomplicated Category: Medical (2) Chronic cough: Code(s): R05.3 - Chronic cough Category: Medical (3) Nicotine dependence, cigarettes, uncomplicated: Code(s): F17.210 - Nicotine dependence, cigarettes, uncomplicated Category: Medical Plan Mckenzie presents for pulmonary evaluation for poorly-controlled asthma, possibly asthma COPD overlap syndrome. Will send for PFT to assess severity of obstructive defect. Will refill Advair 250 in addition to albuterol MDI. Will send for RAST to assess for an allergic component including bird panel as patient has 2 parakeets at home. Prior chest x-ray unremarkable however continues with chronic cough. Will send for chest CT to assess for underlying parenchymal condition contributing to cough such as hypersensitivity pneumonitis given bird exposure. Smoking cessation reviewed, patient not ready to quit at this time. All questions were answered and patient is in agreement of plan. Will follow-up in 6-8 weeks or sooner if needed. Orders: Orders Resp Allergy Profile Region I Today Z91.09 - Other allergy status, other than to drugs and biological substances Complete Blood Count Auto Diff Today Z91.09 - Other allergy status, other than to drugs and biological substances Immunoglobulin E Today Z91.09 - Other allergy status, other than to drugs and biological substances PFT pulmonary function test Today J45.909 - Unspecified asthma, uncomplicated CT chest wo IV con Today R05.3 - Chronic cough Other Ref Test - Misc Today Z91.09 - Other allergy status, other than to drugs and biological substances Medications: Refilled fluticasone propion-salmeterol 250-50 mcg/dose (Advair Diskus) 1 ea inhalation BID 30 days 60 ea 3RF J45.909 - Unspecified asthma, uncomplicated Coding Level of Care Code New Pt Level 4 (11713) Diagnoses Asthma J45.909 Chronic cough R05.3 Nicotine dependence, cigarettes, uncomplicated F17.210
--- OUTSIDE RECORDS SUMMARY | 2024-12-09 15:39 | XMS_ITS | Clinical Summary ---
Author Organization [facility] Address [address] [place] [address] Care Team Providers Care Mechanical Field Engineer Name Role Phone Diogo Wright MD Primary Care Provider [phone] Allergies Active Allergy Reactions Criticality Noted Date [...] 12/19/2019 Fatty liver 12/11/2019 Asthma-COPD overlap syndrome ([facility] V24, [facility] V28) 01/23/2019 Mediastinal lymphadenopathy 01/23/2019 Pulmonary nodules 01/23/2019 Hidradenitis 12/14/2018 Obesity (BMI 30-39.9) 08/01/2018 Snoring 06/29/2018 Overview (07/22/2024): 05/2018 Home Sleep Study did not reveal sleep apnea. Type 2 diabetes mellitus ([facility] V24, [facility] V 28) 04/26/2018 Vitamin D [...] s/p repair Anxiety 12/11/2015 DX:Anxiety Emphysema, unspecified ([facility] V24, [facility] V28) 01/06 DX:Emphysema, unspecified (H CC); COMMENT: per patient Obesity DX:Obesity COPD (chronic obstructive pu lmonary disease) ([facility] V24, [facility] V28) DX:COPD (chronic o bstructive pulmonary disease) ([facility]) Tobacco abuse DX:Tobacco abuse Type 2 diabetes mellitus ( S/[facility] V24, [facility] V28) DX:Type 2 diabetes mellitus ([facility]) Vitamin D deficiency DX:Vitamin D deficiency Anxiety DX:Anxiety Hyperlipidemia DX:Hyperlipidemi a Family History Medical History Relation Name Comments Breast cancer Aunt paternal ?age Suicide Attempts Brother x 1 Throat cancer Father (+smoker), FLAT FOLDER D, HTN, liver transplant Heart failure Maternal [...] Results * Urine Albumin Creatinine Ratio (03/27/2020) [facility] Urine Albumin Creatinine Ratio abstracted Result [facility] Final Result * Annual BMP Blood Test (03/27/2020) [facility] Annual BMP Blood Test abstracted Result [facility] Final Result * (ABNORMAL) Hemoglobin A1c (03/27/2020) [facility] Hemoglobin A1C 7.2(A) <=6.5 % Blood Venous blood specimen / Unknown Result [facility]LO[facility] ORDERABLES Celsa l Result * (ABNORMAL) Lipid panel (03/27/2020) [facility] LDL/HDL Ratio 9(A) 0 - 4 Triglycerides 388(A) 0 - 150 mg/dL Cholesterol 285(A) 0 - 200 mg/dL HDL 31(A) >=40 mg/dL LDL Cholesterol 177(A) 0 - 100 mg/dL Blood Venous blood specimen / Unknown Result [facility]LO[facility] ORDER[facility] Celsa l Result * HIV Screening (08/23/2018) [facility] HIV Screening abstracted Result [facility] Final Result * Hepatitis C Screening (08/23/2018) [facility] Hepatitis C Screening abstracted Result [facility] Final Result * Cervical Cancer Screening: HPV (02/09/2016) [facility] Cervical Cancer Screening: HPV negative, abstracted Result [facility] Final Result from Last 3 Months or Most Recently Relevant to Health Maintenance Care Teams Mechanical Field Engineer Relationship Specialty Start Date End Date Diogo Wright MD PCP - General Internal Medicine 03/12/21
== END 2024-12-09 16:08 | disposition home or self-care (01) ==
LOC: HO.HPS 15:36
PROVIDERS: PCP Physician Assistant; Referring Provider Physician Assistant; Visit Provider Nurse Practitioner Family
DX: J45.909 Unspecified asthma, uncomplicated (principal); R05.3 Chronic cough; F17.210 Nicotine dependence, cigarettes, uncomplicated
CPT/HCPCS: 99204

== ENCOUNTER 2024-12-09 15:35 | Outpatient (REF) | payer OTHER, SELFPAY ==
--- OUTSIDE RECORDS SUMMARY | 2024-12-09 16:12 | XMS_ITS | Clinical Summary ---
Author Organization [facility] Address [address] [place] [address] Care Team Providers Care Pole Maker Name Role Phone Diogo Wright MD Primary Care Provider [phone] Allergies Active Allergy Reactions Criticality Noted Date [...] age to complete this topic Care Teams Pole Maker Relationship Specialty Start Date End Date Diogo Wright MD PCP - General Internal Medicine 03/12/21
--- OUTSIDE RECORDS SUMMARY | 2024-12-09 16:12 | XMS_ITS | Data Portability ---
Author Organization [place] - [facility], Allergy Address [address] [place] [id number] Assessment Encounter Date Assessment Date Assessment LastModified [...] disequilibrium is coming from an otologic source. [email or web address] Not available 12/29/2023 16:52:35 Plan of Treatment Reminders Order Date Submit Date Provider Last Modified By Organization Details Last Modified Time Details Appointments None recorded. Lab None recorded. Referral neurologist referral 2023 024 2 [facility] Scheduling, [address] [place], [address], 4 10:41:05 Procedures None recorded. Surgeries None [...] Organization Details Recorded Time Abnormal auditory perception 42622759 Active 2023 Savannah chicas [place] - [facility] 16:32:03 Migraine without aura 03479919 Active 2023 JUNIE RICH PA-C [address] [place] [address],[address], [address], [facility] 4 16:52:39 Dizziness and giddiness 600176515 Active 2023 JUNIE RICH PA-C [address] [place] [address], [phone], [facility] 4 16:52:43 Bilateral earache 929069640 Active 2023 JUNIE RICH PA-C [address] [place] [address],[address], [address], [facility] 4 16:52:54 Bilateral temporomand ibular joint pain 2972245193194 9105 Active 2023 JUNIE RICH PA-C [address] [place] [address], [phone], [facility] 4 16:53:00 Problem Notes None recorded. Procedures Surgical History Date Name Laterality Status Provider Name and Address Organization Details Recorded Time Comp Audio with Tymps - 32367 & 63257 completed Savannah Goldsmith [place] - [facility] 12/29/2023 16:30:31 Cerumen removal without microscope left completed JUNIE RICH PA-C [address] [place] [address],[place] [address], [place], [address], [facility] - [facility] 12/29/2023 14:56:07 Imaging Results Imaging Date [...] Note [id number] JUNIE RICH PA-C [facility] [address] [address] 12/29/2023 13:49:33 12/29/2023 16:39:20 Abnormal auditory perception 26031684 H93.299 Audiologic al evaluation results: Right ear: [...] a hermetic seal}} Migraine without aura 56 265799 G43.009 Dizziness and giddiness 041536984 R42 Bilateral earache 383011 003 H92.03 Bilateral temporomandibular joint pain [id number] 4267169 M26.623 Health Concerns Section Related Observation LastModified by Organization Detai ls LastModified Time None Recorded Concern Status LastModified by Organization Details LastModified Time None Recorded Advance Directives Directive None Recorded Payers Insurance Date Sequence Insurance Name Policy Number Policy Rodriguez Covered Member ID Rodriguez Member ID Guarantor Name 06/30/[address] [facility] - HEALTH NET PLAN (MEDICAID HMO) [place]TON Quiñonez [id number] Mckenzie Quiñonez Notes Date Note Type Note [...] in several years. JUNIE RICH PA-C [address] [facility],[place] [address], [place], [address], [place] - [facility] 12/29/2023 16:53:54 OBGyn Episode No OBEpisode recorded.
--- OUTSIDE RECORDS SUMMARY | 2024-12-09 16:12 | XMS_ITS | Clinical Summary ---
Author Organization [facility] it Address [address] [place] [address] Care Team Providers Care Steam Shovel Runner Name Role Phone Diogo Wright MD Primary Care Provider [phone] Allergies Active Allergy Reactions Criticality Noted Date [...] 12/19/2019 Fatty liver 12/11/2019 Asthma-COPD overlap syndrome ([facility] V24, [facility] V28) 01/23/2019 Mediastinal lymphadenopathy 01/23/2019 Pulmonary nodules 01/23/2019 Hidradenitis 12/14/2018 Obesity (BMI 30-39.9) 08/01/2018 Snoring 06/29/2018 Overview (07/22/2024): 05/2018 Home Sleep Study did not reveal sleep apnea. Type 2 diabetes mellitus ([facility] V24, [facility] V 28) 04/26/2018 Vitamin D deficiency 04/26/2018 [...] s/p repair Anxiety 12/11/2015 DX:Anxiety Emphysema, unspecified ([facility] V24, [facility] V28) 01/06 DX:Emphysema, unspecified ([facility]); COMMENT: per patient Obesity DX:Obesity COPD (chronic obstructive pu lmonary disease) ([facility] V24, [facility] V28) DX:COPD (chronic o bstructive pulmonary disease) ([facility]) Tobacco abuse DX:Tobacco abuse Type 2 diabetes mellitus ( S/[facility] V24, [facility] V28) DX:Type 2 diabetes mellitus ([facility]) Vitamin D deficiency DX:Vitamin D deficiency Anxiety DX:Anxiety Hyperlipidemia DX:Hyperlipidemi a Family History Medical History Relation Name Comments Breast cancer Aunt paternal ?age Suicide Attempts Brother x 1 Throat cancer Father (+smoker), [employer] D, HTN, liver transplant Heart failure [...] Results * Urine Albumin Creatinine Ratio (03/27/2020) [facility] Urine Albumin Creatinine Ratio abstracted Result [facility] Final Result * Annual BMP Blood Test (03/27/2020) [facility] Annual BMP Blood Test abstracted Result [facility] Final Result * (ABNORMAL) Hemoglobin A1c (03/27/2020) [facility] Hemoglobin A1C 7.2(A) <=6.5 % Blood Venous blood specimen / Unknown Result [facility]LO[facility] ORDERAB[facility] Celsa l Result * (ABNORMAL) Lipid panel (03/27/2020) [facility] LDL/HDL Ratio 9(A) 0 - 4 Triglycerides 388(A) 0 - 150 mg/dL Cholesterol 285(A) 0 - 200 mg/dL HDL 31(A) >=40 mg/dL LDL Cholesterol 177(A) 0 - 100 mg/dL Blood Venous blood specimen / Unknown Result [facility]LOOD ORDERABLES Celsa l Result * HIV Screening (08/23/2018) [facility] HIV Screening abstracted Result [facility] Final Result * Hepatitis C Screening (08/23/2018) [facility] Hepatitis C Screening abstracted Result [facility] Final Result * Cervical Cancer Screening: HPV (02/09/2016) [facility] Cervical Cancer Screening: HPV negative, abstracted Result [facility] Final Result from Last 3 Months or Most Recently Relevant to Health Maintenance Care Teams Steam Shovel Runner Relationship Specialty Start Date End Date Diogo Wright MD PCP - General Internal Medicine 03/12/21
[2024-12-09 16:22] LABS: MANUAL DIFF FLAG NO
[2024-12-09 17:25] LABS: Basophils Absolute Auto 0.1 X10*3/uL (0.0-0.2); Basophils Percent Auto 0.5 % (0-2); Eosinophils Absolute Auto 0.3 X10*3/uL (0.0-0.4); Hematocrit 39.1 % (37.0-47.0); Imm Gran Abs Auto 0.04 X10*3/uL (0.00-0.03); Imm Gran Pct Auto 0.3 % (0.0-0.4); Lymphocytes Absolute Auto 3.7 X10*3/uL (1.2-4.9); Lymphocytes Percent Auto 29.9 % (20-40); Mean Corpuscular HGB Conc 33.2 g/dl (31.0-35.0); Mean Corpuscular Hemoglobin 26.3 pg (27.0-33.0); Mean Corpuscular Volume 79.1 fL (80.0-98.0); Mean Platelet Volume 12.1 fL (9.4-12.3); Monocytes Absolute Auto 0.6 X10*3/uL (0.1-1.2); Monocytes Percent Auto 4.8 % (2-11); Neutrophils Absolute Auto 7.7 x10*3/uL (2.0-8.3); Neutrophils Percent Auto 62.5 % (45-73); Platelet Count 227 X10*3/uL (160-400); Red Blood Count 4.94 X10*6/uL (4.20-5.50); Red Cell Distribution Width 14.7 % (11.0-16.0); White Blood Count 12.4 X10*3/uL (4.8-10.8)
[2024-12-17 08:52] LABS: Class Alternaria alternata 0; Class Aspergillus fumigatus 0; Class Bermuda Grass 0; Class Birch 0; Class Cat Dander 0; Class Cladosporium herbarum 0/1; Class Cockroach 0; Class Common Ragweed 0; Class Cottonwood 0; Class Derm. pterony 0; Class Dermatophagoides farinae 0; Class Dog Dander 0; Class Elm 0; Class Maple Box Elder 0; Class Mountain Cedar 0; Class Mouse Urine Protein 0; Class Mugwort 0; Class Oak 0; Class Penicillium crysogenum 0; Class Rough Pigweed 0; Class Sheep Sorrel 0; Class Sycamore 0; Class Timothy Grass 0/1; Class Walnut Tree 0; Class White Ash 0; Class White Mulberry 0; D001 IgE D pteronyssinus <0.10 kU/L; D002 - IgE D farinae <0.10 kU/L; E001 - IgE Cat Dander <0.10 kU/L; E005 - IgE Dog Dander <0.10 kU/L; E072-IgE Mouse Urine <0.10 kU/L; G002 IgE Bermuda Grass <0.10 kU/L; G006 - IgE Timothy Grass 0.26 kU/L; I006-IgE Cockroach, German <0.10 kU/L; Immunoglobulin E 66 kU/L (<OR=114); M001 IgE Penicillium chrysogen <0.10 kU/L; M003 - IgE Aspergillus fumigat <0.10 kU/L; M006 - IgE Alternaria alternat <0.10 kU/L; T001 IgE Maple/Box Elder <0.10 kU/L; T003 IgE Common Silver Birch <0.10 kU/L; T006 - IgE Cedar, Mountain <0.10 kU/L; T007 - IgE Oak, White <0.10 kU/L; T008 IgE Elm, American <0.10 kU/L; T010 - IgE Walnut <0.10 kU/L; T011 - IgE Maple Leaf Sycamore <0.10 kU/L; T014 - IgE Cottonwood <0.10 kU/L; T015 - IgE Ash, White <0.10 kU/L; T070 - IgE White Mulberry <0.10 kU/L; W001 - IgE Ragweed, Short <0.10 kU/L; W006 - IgE Mugwort <0.10 kU/L; W014 IgE Pigweed, Common <0.10 kU/L; W018 IgE Sheep Sorrel <0.10 kU/L
[2024-12-18 11:27] LABS: Chicken Serum Ab NEGATIVE; Cockatiel Droppings Ab NEGATIVE; Finch Droppings Ab NEGATIVE; Parakeet Droppings Ab NEGATIVE; Parakeet Serum Ab POSITIVE; Parrot Droppings Ab NEGATIVE; Parrot Serum Ab POSITIVE; Pigeon/Dove Droppings Ab NEGATIVE
[2024-12-18 11:28] LABS: Canary Droppings Ab NEGATIVE; Pigeon/Dove Serum Ab NEGATIVE
== END 2024-12-09 15:36 | disposition home or self-care (01) ==
LOC: HO.LAB 15:35
PROVIDERS: PCP Physician Assistant; Referring Provider Physician Assistant; Visit Provider Nurse Practitioner Family
DX: Z91.09 Other allergy status, other than to drugs and biological substances (principal); J45.909 Unspecified asthma, uncomplicated; R05.3 Chronic cough; F17.210 Nicotine dependence, cigarettes, uncomplicated
CPT/HCPCS: 36415; 82785; 85025; 86003; 86331; 99202

== ENCOUNTER 2025-01-01 12:57 | Emergency (ER) | payer OTHER, SELFPAY ==
[2025-01-01 13:22] VITALS: BP 118/57; BP 133/99; PULSE 83; PULSE 89; RESP 16; TEMP 36.8; O2SAT 96; O2SAT 98; BMI 38.8
--- NOTE | 2025-01-01 13:35 | ED_ITS ---
HPI - Allergic Reaction General Chief complaint: Allergic Reaction Stated complaint: ALLERGIC RXN TO CONTRAST DYE,HIVES,THROAT TIGHTNES Time Seen by Provider: 01/01/25 13:22 History of Present Illness HPI narrative: Patient is a 49-year-old female presents today after getting oral contrast for her CT. Patient received a CT scan. Went home. Suddenly feel that intense rash. Short of breath tingling in her throat. Patient then came to the ED. feels very flushed. She was given a dose of epinephrine at home. A 2nd dose of epinephrine was given just prior to entering the emergency department. Minimal change to voice at this time. No difficulty swallowing no difficulty breathing patient is from home has a history of diabetes no chest pain or diaphoresis history of hypertension. Has a history of incisional hernia that is why she is getting the CT of the abdomen. Related Data Home Medications ?Medication ?Instructions ?Recorded ?Confirmed insulin lispro 100 unit/mL 20 - 30 unit subcut TID 10/06/22 10/15/24 subcutaneous pen meclizine 25 mg tablet 25 mg PO DAILY 08/20/24 10/15/24 Previous Rx's ?Medication ?Instructions ?Recorded albuterol sulfate 90 mcg/actuation 1 inh inhalation QID PRN shortness 01/20/22 aerosol inhaler of breath or wheezing 30 days #8.5 grams flash glucose scanning reader 1 ea miscellaneous DIRECTED #1 04/12/22 (FreeStyle Tiff 2 [place]bine) ea nitroglycerin 0.4 mg sublingual 0.4 mg sublingual Q5M PRN chest 09/28/22 tablet pain 15 days #30 tabs pen needle, diabetic 32 gauge x ##100 11/18/22 (BD Ultra-Fine Macy Pen Needle) blood sugar diagnostic (FreeStyle #100 ea 03/20/23 Test strips) abdominal binder #1 ea 10/05/23 glucose 4 gram chewable tablet 4 g PO Q15M PRN hypoglycemia #30 02/01/24 tabs FreeStyle Precision Haresh Strips #50 ea 02/02/24 (blood sugar diagnostic) albuterol sulfate 2.5 mg/3 mL 2.5 mg (3 mL) inhalation Q6H PRN 03/20/24 (0.083 %) solution for nebulization shortness of breath or wheezing 30 days #360 mL ondansetron HCl 8 mg tablet 8 mg PO Q12H 15 days #30 tabs 04/29/24 albuterol sulfate 90 mcg/actuation 2 puff inhalation Q4-6H PRN 05/09/24 aerosol inhaler (Ventolin HFA) shortness of breath or wheezing #8.5 grams blood-glucose meter (FreeStyle #1 ea 06/25/24 Lite Meter kit) cholecalciferol (vitamin D3) 25 25 mcg PO DAILY 90 days #90 caps 06/25/24 mcg (1,000 unit) capsule Ozempic 2 mg/dose (8 mg/3 mL) 2 mg (0.75 mL) subcut QWEEK #9 mL 06/27/24 subcutaneous pen injector (semaglutide) flash glucose sensor (FreeStyle #6 ea 06/27/24 Tiff 2 Sensor kit) insulin glargine 100 unit/mL (3 20 unit (0.2 mL) subcut BEDTIME 08/08/24 mL) subcutaneous pen (Lantus #30 mL Solostar U-100 Insulin) pioglitazone 30 mg tablet 15 mg (1/2 x 30 mg) PO DAILY #90 08/20/24 tabs atorvastatin 40 mg tablet 40 mg PO BEDTIME #30 tabs 09/03/24 amlodipine 5 mg tablet 5 mg PO DAILY #90 tabs 09/05/24 fenofibrate nanocrystallized 145 145 mg PO DAILY 90 days #90 tabs 09/18/24 mg tablet metronidazole 500 mg tablet 500 mg PO BID 7 days #14 tabs 10/15/24 oxycodone 10 mg tablet 10 mg PO Q8H pain 4 days #12 tabs 12/03/24 fluticasone 250 mcg-salmeterol 50 1 ea inhalation BID 30 days #60 ea 12/09/24 mcg/dose blistr powdr for inhalation (Advair Diskus) diphenhydramine HCl 25 mg capsule 25 mg PO Q8H 5 days #15 caps 01/01/25 (Benadryl) epinephrine 0.3 mg/0.3 mL 0.3 mg (0.3 mL) IM ONCE PRN 01/01/25 injection, auto-injector (EpiPen anaphylaxis 30 days #2 ea 2-Josué) epinephrine 0.3 mg/0.3 mL 0.3 mg (0.3 mL) IM Q15M PRN 01/01/25 injection, auto-injector (EpiPen anaphylaxis #2 ea 2-Josué) famotidine 20 mg tablet (Pepcid) 20 mg PO BID 5 days #10 tabs 01/01/25 prednisone 20 mg tablet 40 mg (2 x 20 mg) PO DAILY #10 tabs 01/01/25 Allergies Allergy/AdvReac Type Severity Reaction Status Date / Time latex [LATEX] Allergy Mild RASH Verified 01/01/25 13:29 Iodinated Contrast Media Allergy Anaphylaxis Verified 01/01/25 13:29 [IV Contrast Dye] amoxicillin AdvReac Unknown vaginal Verified 01/01/25 13:29 infection dulaglutide [From Trulicity] AdvReac Unknown vomitting, Verified 01/01/25 13:29 nausea semaglutide [From Ozempic] AdvReac Unknown Chest Verified 01/01/25 13:29 pain, vomitting Review of Systems 2 Review of Systems: Positive shortness of breath Yes all other systems are reviewed and are negative PMFSH Past Medical History Attestation statement: The following information was validated with the patient. Medical History Hordeolum externum of right eye Itching Obesity (BMI 30-39.9) Sepsis Diverticulitis of both large and small intestine with perforation and abscess Diverticulitis of large intestine with abscess Morbid obesity with BMI of 50.0-59.9, adult Hypertension Vitamin D deficiency B12 deficiency Diabetic nephropathy associated with type 2 diabetes mellitus Dyslipidemia Hirsutism Diabetes type 2, uncontrolled Surgical History Hx of abdominal surgery Hx of umbilical hernia repair History of ankle surgery Hx of section Family History Family History Father Throat cancer Cirrhosis Mother Diabetes Sister History of hysterectomy Social History Social History Household Members: None Housing: House Do you presently have visiting nurse or other home services: Yes Alcohol intake: former Patient Tobacco Use Status: Current everyday Tobacco user Tobacco use type: Cigarette Cigarette Packs Per Day: 0.5 Cigarettes Per Day: 1 Years Smoked: 30 Smoked in Last 30 Days: No e-Cigarette/Vaping Use: Never Used Second Hand Smoke Exposure: Yes Use of substances other than those prescribed or required for medical reasons: No Substance Use Type: Marijuana Advance Directives: Yes Advance Directives on File: Yes Advance Directives Date on File: 05/05/21 service: No Current occupational status: disabled Cognitive needs: No Hearing needs: No Vision needs: Yes Physical Exam ED Vital Signs: Vital Signs - 24 hr 01/01/25 13:22 Temperature 98.3 F Pulse Rate 89 Respiratory Rate 16 Blood Pressure 118/57 L Pulse Oximetry 96 Oxygen Delivery Method Room Air BMI result Body Mass Index 38.8 Appearance: Alert. Oriented X3. No acute distress. Eyes: Pupils equal, round and reactive to light. ENT: Pharynx normal. Neck: Normal inspection. Neck supple. No lymph nodes noted. No crepitus CVS: Normal heart rate and rhythm. Pulses normal. Normal S1 and S2 Respiratory: No respiratory distress. Breath sounds normal. No Wheezing. No rales Abdomen: Soft and nontender. No rigidity. No distention. good BS x4 Skin: Skin warm and dry. Normal skin color. Normal skin turgor. Extremities: No lower extremity edema. Neurovascular intact to all extremities. No Lacerations. No Rash Neuro: Oriented X 3. No motor deficit. No sensory deficit. Moving all extermities. No slurred speech Medications Administered Discontinued Medications Generic Name Dose Route Start Last Admin Trade Name Freq PRN Reason Stop Dose Admin Famotidine 20 mg 01/01/25 13:33 01/01/25 13:47 Famotidine/Pf 20 Mg/2 Ml Vial IVPUSH 01/01/25 13:34 20 mg ONCE ONE Administration Sodium Chloride 1,000 mls @ 999 mls/hr 01/01/25 13:45 01/01/25 15:34 Ns IV 01/01/25 14:45 Infused .Q1H1M TEMO Infusion Methylprednisolone Sodium Succinate 125 mg 01/01/25 13:33 01/01/25 13:41 Methylprednisolone Sod Succ 125 Mg Vial IVPUSH 01/01/25 13:34 125 mg ONCE ONE Administration Medical Decision Making Medical Decision Making MDM Narrative: Symptom improved on arrival in the emergency department. After 2 doses of epinephrine. Patient already received a dose of Benadryl prior to arrival. Will start patient on dose of steroid and a dose of Pepcid. Will monitor carefully. Patient's last dose of epinephrine was given at approximately 01:30 will monitor for at least 2 hours. On my exam lungs are clear. Patient in no distress Patient monitored in the emergency department for 2 hours symptom actually improved. Lungs are clear no difficulty swallowing no difficulty breathing no difficulty with voice will discharge patient home close follow-up on an outpatient basis Differential Diagnosis Differential Diagnoses: The differential diagnosis associated with the presentation includes Allergic reaction, anaphylactic reaction Admission/Observation Consideration of admission/observation: Escalation of care including admission/observation considered Lab Data 01/01/25 14:19 01/01/25 14:20 Labs: Lab Results 01/01/25 01/01/25 Range/Units 14:19 14:20 WBC 15.8 H (4.8-10.8) X10*3/uL RBC 4.97 (4.20-5.50) X10*6/uL Hgb 13.3 (12.0-16.0) g/dl Hct 38.8 (37.0-47.0) % MCV 78.1 L (80.0-98.0) fL MCH 26.8 L (27.0-33.0) pg MCHC 34.3 (31.0-35.0) g/dl RDW 15.2 (11.0-16.0) % Plt Count 255 (160-400) X10*3/uL MPV 11.7 (9.4-12.3) fL Immature Gran % (Auto) 0.4 (0.0-0.4) % Neut % (Auto) 61.6 (45-73) % Lymph % (Auto) 31.8 (20-40) % Bonner % (Auto) 4.5 (2-11) % Eos % (Auto) 1.1 (0-4) % Baso % (Auto) 0.6 (0-2) % Lymph # (Auto) 5.0 H (1.2-4.9) X10*3/uL Bonner # (Auto) 0.7 (0.1-1.2) X10*3/uL Eos # (Auto) 0.2 (0.0-0.4) X10*3/uL Baso # (Auto) 0.1 (0.0-0.2) X10*3/uL Abs Immat Gran (auto) 0.07 H (0.00-0.03) X10*3/uL Absolute Neuts (auto) 9.7 H (2.0-8.3) x10*3/uL Absolute Nucleated RBC 0.000 (0.0-0.012) X10*3/uL Nucleated RBC % (auto) 0.0 (0.0-0.2) /100WBC Smear Tech's Comments VERIFIED Sodium 139 (135-145) mmol/L Potassium 4.0 (3.3-5.1) mmol/L Chloride 106 (96-108) mmol/L Carbon Dioxide 26 (22-29) mmol/L Anion Gap 11 L (12-20) BUN 9 (9-16) mg/dL Creatinine 0.68 (0.5-1.4) mg/dL Estim Creat Clear Calc 117.9 Estimated GFR > 60 Random Glucose 182 H (60-115) mg/dL Calcium 9.0 (8.4-10.2) mg/dL Social Determinants Patient?s care significantly limited by Social Determinants of Health including: Problems related to primary support group Critical Care Time Critical Care Time Critical Care Time: Yes Total Critical Care Time: 40 Attestation: I have personally provided 40 minutes of critical care time exclusive of time spent on separately billable procedures. ?Time includes review of lab data, radiology results, discussion with consultants, and monitoring for potential decompensation. ?Interventions were performed as documented above Discharge Plan Discharge Clinical Impression: Allergic reaction Patient Disposition: Home, Self-Care Instructions: General Allergic Reaction (ED) Prescriptions: New prednisone 20 mg tablet 40 mg PO DAILY Qty: 10 0RF famotidine [Pepcid] 20 mg tablet 20 mg PO BID 5 Days Qty: 10 0RF diphenhydramine HCl [Benadryl] 25 mg capsule 25 mg PO Q8H 5 Days Qty: 15 0RF epinephrine [EpiPen 2-Jsoué] 0.3 mg/0.3 mL auto-injector 0.3 mg IM Q15M PRN (Reason: anaphylaxis) Qty: 2 0RF Rx Instructions: for 2 doses No Action albuterol sulfate 90 mcg/actuation HFA aerosol inhaler 1 inh inhalation QID PRN (Reason: shortness of breath or wheezing) 30 Days Qty: 8.5 1RF FreeStyle Tiff 2 [place] Misc 1 ea miscellaneous DIRECTED Qty: 1 0RF (DME) pen needle, diabetic [BD Ultra-Fine Macy Pen Needle] 32 gauge x 5/32 needle See Rx Instructions .ROUTE .COMPLEX Qty: 100 0RF Dose Instruction: USE DIRECTED 4 TIMES DAILY Rx Instructions: USE DIRECTED 4 TIMES DAILY (DME) FreeStyle Test Strip See Rx Instructions .ROUTE DAILY Qty: 100 3RF Rx Instructions: testing 3x daily atorvastatin 40 mg tablet 40 mg PO BEDTIME Qty: 30 5RF Rx Instructions: stop Simvastatin Start Atorvastatin metronidazole 500 mg tablet 500 mg PO BID 7 Days Qty: 14 0RF oxycodone 10 mg tablet 10 mg PO Q8H 4 Days Qty: 12 0RF Rx Instructions: Partial Fill upon patient request. epinephrine [EpiPen 2-Josué] 0.3 mg/0.3 mL auto-injector 0.3 mg IM ONCE PRN (Reason: anaphylaxis) 30 Days Qty: 2 2RF Rx Instructions: Anaphylaxis to shellfish nitroglycerin 0.4 mg tablet, sublingual 0.4 mg sublingual Q5M PRN (Reason: chest pain) 15 Days Qty: 30 0RF Rx Instructions: do not exceed 3 doses per episode (DME) abdominal binder Kit See Rx Instructions .Route Qty: 1 0RF Rx Instructions: As directed albuterol sulfate 2.5 mg /3 mL (0.083 %) solution for nebulization 2.5 mg inhalation Q6H PRN (Reason: shortness of breath or wheezing) 30 Days Qty: 360 3RF insulin lispro 100 unit/mL insulin pen 20 - 30 unit subcut TID cholecalciferol (vitamin D3) 25 mcg (1,000 unit) capsule 25 mcg PO DAILY 90 Days Qty: 90 2RF (DME) blood-glucose meter [FreeStyle Lite Meter] Kit See Rx Instructions .Route Qty: 1 0RF Rx Instructions: As directed albuterol sulfate [Ventolin HFA] 90 mcg/actuation HFA aerosol inhaler 2 puff inhalation Q4-6H PRN (Reason: shortness of breath or wheezing) Qty: 8.5 0RF amlodipine 5 mg tablet 5 mg PO DAILY Qty: 90 3RF meclizine 25 mg tablet 25 mg PO DAILY pioglitazone 30 mg tablet 15 mg PO DAILY Qty: 90 3RF fluticasone propion-salmeterol [Advair Diskus] 250-50 mcg/dose blister with device 1 ea inhalation BID 30 Days Qty: 60 3RF glucose 4 gram tablet,chewable 4 g PO Q15M PRN (Reason: hypoglycemia) Qty: 30 3RF Rx Instructions: until symptoms of low blood sugar are controlled (DME) FreeStyle Precision Haresh Strips Strip See Rx Instructions .Route Qty: 50 3RF Rx Instructions: As needed up to four times daily ondansetron HCl 8 mg tablet 8 mg PO Q12H 15 Days Qty: 30 1RF fenofibrate nanocrystallized 145 mg tablet 145 mg PO DAILY 90 Days Qty: 90 1RF (DME) FreeStyle Tiff 2 Sensor Kit See Rx Instructions .ROUTE .COMPLEX Qty: 6 3RF Dose Instruction: DIRECTED EVERY 2 WEEKS Rx Instructions: DIRECTED EVERY 2 WEEKS Ozempic 2 mg/dose (8 mg/3 mL) pen injector 2 mg subcut QWEEK Qty: 9 3RF insulin glargine [Lantus Solostar U-100 Insulin] 100 unit/mL (3 mL) insulin pen 20 unit subcut BEDTIME Qty: 30 5RF Referrals: Cruz Navas PA-C [Primary Care Provider] - 01/03/25 Print Language: Solomon Islander
[2025-01-01] MEDS: 0.9 % Sodium Chloride 1,000 ML 999 ML IV (13:41)
[2025-01-01] MEDS: Famotidine/PF 20 MG/2 ML VIAL IVPUSH (13:47)
--- NOTE | 2025-01-01 13:55 | PC.NURSE ---
Pt to ED for allergic reaction afer receiving PO contrast for scheduled CT. A/O x 3, denies pain at this time. States feeling itchy and a dryness in throat. MD at bedside. Labs and medications ordered, meds admin per SEP. Pt had #18 L AC from EMS. Plan of care ongoing.
[2025-01-01 14:25] LABS: Basophils Absolute Auto 0.1 X10*3/uL (0.0-0.2); Basophils Percent Auto 0.6 % (0-2); Eosinophils Absolute Auto 0.2 X10*3/uL (0.0-0.4); Eosinophils Percent Auto 1.1 % (0-4); Hematocrit 38.8 % (37.0-47.0); Hemoglobin 13.3 g/dl (12.0-16.0); Imm Gran Abs Auto 0.07 X10*3/uL (0.00-0.03); Imm Gran Pct Auto 0.4 % (0.0-0.4); Lymphocytes Percent Auto 31.8 % (20-40); MANUAL DIFF FLAG SCAN; Mean Corpuscular HGB Conc 34.3 g/dl (31.0-35.0); Mean Corpuscular Hemoglobin 26.8 pg (27.0-33.0); Mean Corpuscular Volume 78.1 fL (80.0-98.0); Mean Platelet Volume 11.7 fL (9.4-12.3); Monocytes Absolute Auto 0.7 X10*3/uL (0.1-1.2); Monocytes Percent Auto 4.5 % (2-11); Neutrophils Absolute Auto 9.7 x10*3/uL (2.0-8.3); Neutrophils Percent Auto 61.6 % (45-73); Platelet Count 255 X10*3/uL (160-400); Red Blood Count 4.97 X10*6/uL (4.20-5.50); Red Cell Distribution Width 15.2 % (11.0-16.0); SCAN SMEAR FLAG 1; White Blood Count 15.8 X10*3/uL (4.8-10.8)
[2025-01-01 14:38] LABS: Anion Gap 11 (12-20); Blood Urea Nitrogen 9 mg/dL (9-16); Carbon Dioxide 26 mmol/L (22-29); Chloride 106 mmol/L (96-108); Creatinine Clr Calc Pharmacy 117.9; Estimated Glomerular Filt Rate > 60; Glucose Random 182 mg/dL (60-115); Sodium 139 mmol/L (135-145)
[2025-01-01 14:47] LABS: SLIDE REVIEW VERIFIED
--- OUTSIDE RECORDS SUMMARY | 2025-01-01 15:27 | XMS_ITS | Clinical Summary ---
Author Organization [employer] Address [address] [place] [address] [address] [place] [address] Care Team Providers Care Fire Support Man Name Role Phone Unavailable Primary Care Provider [...] Sodium Fluoride 1.1 % creamIndication s:Dental caries [place] teeth for 2 minutes, morning and night. [...] Description 11/08/2024 10:30 AM EDT Office Visit [facility] [address] [place] [address] Nirmal Odell DMD Dental caries (Primary Dx) 11/06/2024 11:00 AM EDT Office Visit [facility] [address] [place] [address] Mireya Cole 10/02/2024 Telephone [facility] [address] [place] [address] Nirmal Odell DMD from Last 3 Months [...] Description 01/23/2025 1:00 PM EDT Office Visit [facility] [address] [place] [address] Mireya Cole Health Maintenance Due Date Last Done Comments CT Colonography 1976 Colonoscopy 1976 Colorectal Cancer Screening 1976 Depression Screening 1976 FIT DNA/Cologuard 1976 FIT 1976 FOBT 1976 HIV Screening 1976 Lipid Panel 1976 SDOH Screening 1976 Sigmoidoscopy 1976 Disability Screening 1976 COVID-19 Vaccine (#1) 1981 Diabetes: Foot [...] Mammogram 2016 Diabetes: Hemoglobin A1C 06/26/2020 03/27/2020 Dental Oral Exam 01/23/2025 07/25/2024, 03/17/2023 Dental Prophylaxis 01/23/2025 07/25/2024 Influenza Vaccine (Season Ended) 2025 Dental X-Ray: Bitewings 07/26/2025 07/25/2024 Tobacco Screening [...] Most Recently Relevant to Health Maintenance Insurance DENTAL-[facility] MEDICAID STAND ADULT
--- NOTE | 2025-01-01 15:35 | PC.NURSE ---
Pt states feeling much better , per MD ok for pt to eat. Tolerating food and drink well.
[2025-01-01 16:12] VITALS: BP 116/62; PULSE 98; RESP 18; TEMP 36.6; O2SAT 95
--- NOTE | 2025-01-01 16:26 | PC.NURSE ---
Pt requesting ambulance ride home be provided on d/c. Explaioned to pt she will not qualify for ambulance ride, suggested for pt to reach out to friends or family or possibly take public transportation. Pt ambulated self out of ED with steady gait.
== END 2025-01-01 16:28 | disposition home or self-care (01) ==
PROVIDERS: Emergency Provider Emergency Medicine Emergency Medical Services; PCP Physician Assistant
DX: T78.40XA Allergy, unspecified, initial encounter (principal); R21 Rash and other nonspecific skin eruption; X58.XXXA Exposure to other specified factors, initial encounter
CPT/HCPCS: 36415; 80048; 85025; 96361; 96374; 96375; 99284; J1308; J2919

== ENCOUNTER 2025-01-15 12:35 | Outpatient (REF) | payer OTHER, SELFPAY ==
--- NOTE | 2025-01-15 13:36 | PFT_ITS ---
Flows: FEV1: 67 % of predicted at 1.94 L FVC: 66 % of predicted at 2.39 L FEV1/FVC: 81 % Bronchodilator response: Absent Volumes: Total lung capacity: 67 % of predicted at 3.63 L Residual volume: 82 % of predicted at 1.24 L Slow vital capacity: 62 % of predicted at 2.39 L Expiratory reserve volume: 9 % of predicted at 0.10 L Diffusion capacity: Mildly decreased, corrects to normal after adjustment for alveolar ventilation. Impression: Moderate restrictive ventilatory defect with no bronchodilator response. Decreased expiratory reserve volume suggests extrathoracic restriction likely secondary to abdominal obesity. Combination of restrictive ventilatory defect with decreased diffusion capacity suggests underlying pulmonary parenchymal disease. Clinical correlation is advised. MTDD
--- OUTSIDE RECORDS SUMMARY | 2025-01-15 14:37 | XMS_ITS | Clinical Summary ---
Author Organization [employer] Address [address] [place] [address] [address] [place] [address] Care Team Providers Care Choir Member Name Role Phone Unavailable Primary Care Provider [...] Sodium Fluoride 1.1 % creamIndication s:Dental caries [place] teeth for 2 minutes, morning and night. [...] Description 11/08/2024 10:30 AM EDT Office Visit [facility] [address] [place] [address] Nirmal Odell DMD Dental caries (Primary Dx) 11/06/2024 11:00 AM EDT Office Visit [facility] [address] [place] [address] Mireya Cole from Last 3 Months Social History Tobacco [...] Description 01/23/2025 1:00 PM EDT Office Visit [facility] [address] [place] [address] Mireya Cole Health Maintenance Due Date Last [...] Years) and At-Risk Patients (6 to 49) Years (1 of 2 - PCV) 1995 Zoster [...] Most Recently Relevant to Health Maintenance Insurance [facility] MEDICAID STAND ADULT
[2025-01-15 15:48] VITALS: PULSE 80; O2SAT 97
== END 2025-01-15 12:36 | disposition home or self-care (01) ==
LOC: HO.RESP 12:35
PROVIDERS: PCP Physician Assistant; Visit Provider Nurse Practitioner Family
DX: J45.909 Unspecified asthma, uncomplicated (principal)
CPT/HCPCS: 94010; 94640; 94727; 94729

== ENCOUNTER → 2025-01-15 13:36 | Outpatient (BNV) | payer OTHER, SELFPAY | PROVIDERS: PCP Physician Assistant; Visit Provider Internal Medicine Pulmonary Disease | DX: R06.00 Dyspnea, unspecified (principal) | CPT/HCPCS: 94060; 94727; 94729 ==

== ENCOUNTER 2025-01-16 10:35 | Outpatient (AMB) | payer OTHER, SELFPAY ==
--- NOTE | 2025-01-16 10:57 | A.OFFPC_ITS ---
Vital Signs 01/16/25 11:11 Height 5 ft 4 in Weight 223 lb 8 oz BMI 38.4 BP 122/88 Blood Pressure Location Lt brachial Position Sitting Pulse 87 Pulse Source Pulse Oximeter Temp 97.1 F Temp Source Temporal Artery Scan Pulse Oximetry (%) 97 Oxygen Delivery Method Room Air Intake Visit Reasons: 4 month f/u Political Anthropologist Required: No Accompanied by: Self / Same As Patient Allergies latex (LATEX) Allergy (Mild, Verified 01/16/25 11:22) RASH Iodinated Contrast Media (IV Contrast Dye) Allergy (Verified 01/16/25 11:22) Anaphylaxis amoxicillin Adverse Reaction (Unknown, Verified 01/16/25 11:22) vaginal infection dulaglutide (From Trulicity) Adverse Reaction (Unknown, Verified 01/16/25 11:22) vomitting, nausea semaglutide (From Ozempic) Adverse Reaction (Unknown, Verified 01/16/25 11:22) Chest pain, vomitting Medication List - Last Reconciled 01/16/25 by Cruz Navas PA-C abdominal binder As directed albuterol sulfate 2.5 mg (3 mL) inhalation Q6H PRN 30 days albuterol sulfate 90 mcg/actuation 1 inh inhalation QID PRN 30 days albuterol sulfate 90 mcg/actuation (Ventolin HFA) 2 puffs inhalation Q4-6H PRN amlodipine 5 mg PO DAILY atorvastatin 40 mg PO BEDTIME blood sugar diagnostic (FreeStyle Test strips) testing 3x daily blood-glucose meter (FreeStyle Lite Meter kit) As directed cholecalciferol (vitamin D3) 25 mcg PO DAILY 90 days diphenhydramine HCl (Benadryl) 25 mg PO Q8H 5 days epinephrine (EpiPen 2-Josué) 0.3 mg (0.3 mL) IM Q15M PRN epinephrine (EpiPen 2-Josué) 0.3 mg (0.3 mL) IM ONCE PRN 30 days famotidine (Pepcid) 20 mg PO BID 5 days fenofibrate nanocrystallized 145 mg PO DAILY 90 days flash glucose scanning reader (FreeStyle Tiff 2 Canterbury) 1 ea miscellaneous DIRECTED flash glucose sensor (FreeStyle Tiff 2 Sensor kit) DIRECTED EVERY 2 WEEKS fluticasone propion-salmeterol 250-50 mcg/dose (Advair Diskus) 1 ea inhalation BID 30 days FreeStyle Precision Haresh Strips (blood sugar diagnostic) As needed up to four times daily NS glucose 4 grams PO Q15M PRN insulin glargine (Lantus Solostar U-100 Insulin) 20 units (0.2 mL) subcut BEDTIME insulin lispro 20 - 30 units subcut TID meclizine 25 mg PO DAILY metronidazole 500 mg PO BID 7 days nitroglycerin 0.4 mg sublingual Q5M PRN 15 days ondansetron HCl 8 mg PO Q12H 15 days oxycodone 10 mg PO Q8H 4 days Ozempic (semaglutide) 2 mg (0.75 mL) subcut QWEEK NS pen needle, diabetic (BD Ultra-Fine Macy Pen Needle) USE DIRECTED 4 TIMES DAILY pioglitazone 15 mg (1/2 x 30 mg) PO DAILY prednisone 40 mg (2 x 20 mg) PO DAILY Tobacco use date assessed: 09/18/24 Dental Screening Dental Screen Date: 08/20/24 HPI 4 month f/u HPI Details Patient is a 49-year-old female here today for follow-up visit ? Patient has a past medical history significant for obesity, type 2 diabetes, tobacco dependency, generalized anxiety disorder, chronic incisional abdominal hernia. Patient is seen at the [facility] recently for acute hypersensitivity reaction Incisional hernia--> she is followed by [facility] hernia surgeon. Unfortunately her follow-up appointments has been delayed due to some unclear reason. Was was previous not a candidate for surgery as she has gained weight, continues to smoke in her diabetes wasn't well controlled. She was told she needed to get her diabetes better controlled and a clearance from her division manager due to her dysfunctional uterine bleeding.. --> SHE CONTINUES WITH PAIN MANAGEMENT W ITH OXYCODONE 10 MG WHICH HAS GIVEN HER THE ABILITY TO BE MORE PHYSICALLY ACTIVE AND HAS BEEN WALKING MORE. SHE HAS LOST 3 LB SINCE LAST OFFICE VISIT. ALSO ON OZEMPIC 2MG WEEKLY THAT HAS OFFERED HER THE ABILITY DID LOSE WEIGHT AND SOME GLYCEMIC CONTROL. SHE DOES REPORT SINCE BEING MORE PHYSICALLY ACTIVE SHE IS FELT DIFFERENT PAIN/SENSATION IN HER ABDOMEN. NO DEFECATION ISSUES REPORTED. She will be following back up with her abdominal hernia surgeon after she gets cleared spine division manager and gets better glycemic control. She anticipates surgery in the next 4 months. Type 2 diabetes: Followed by her [facility] customer care assistant. She has recently stopped her Ozempic due to fears of side effects of worsening vertigo. She has not regularly been taking a short-acting insulin. She has not been really checking her sugars as she has been out of her freestyle sensors Most recent A1c above 9 PLAN: Restart using short-acting insulin before each of her snacks and meals to gain better glycemic control Hypertriglyceridemia: Have noted elevation in her triglycerides. She did stop taking her fenofibrate as she was concerned about side effects. She promises to restart fenofibrate to reduce her triglycerides. .. Tobacco dependency: She does admit to smoking a few cigarettes per day and a ttributes this smoking pattern due to stress [facility] Medical History Hordeolum externum of right eye Itching Obesity (BMI 30-39.9) Sepsis Diverticulitis of both large and small intestine with perforation and abscess Diverticulitis of large intestine with abscess Morbid obesity with BMI of 50.0-59.9, adult Hypertension Vitamin D deficiency B12 deficiency Diabetic nephropathy associated with type 2 diabetes mellitus Dyslipidemia Hirsutism Diabetes type 2, uncontrolled Surgical History Hx of abdominal surgery Hx of umbilical hernia repair History of ankle surgery Hx of section Family History Father Throat cancer Cirrhosis Mother Diabetes Sister History of hysterectomy Social History Household Members: None Housing: House Do you presently have visiting nurse or other home services: Yes Alcohol intake: former Patient Tobacco Use Status: Current everyday Tobacco user Tobacco use type: Cigarette Cigarette Packs Per Day: 0.5 Cigarettes Per Day: 1 Years Smoked: 30 Packs Per Year: 15 Packs per year/per ci.50 e-Cigarette/Vaping Use: Never Used Second Hand Smoke Exposure: Yes Substance Use Type: Marijuana Advance Directives Date on File: 05/05/21 service: No Current occupational status: disabled Cognitive needs: No Hearing needs: No Vision needs: Yes Questionnaire Thrive Questionnaire Date Thrive assessed: 09/18/24 I am a: Patient What is your living situation today?: I have a place to live, but I am worried about losing it in the future Within the past 12 months, did the food you bought not last and you didn't have the money to get more?: Sometimes True Within the past 12 months, did you worry whether your food would run out before you got money to buy more?: Sometimes True Do you have trouble paying for medicines?: Yes Do you have trouble getting transportation to medical appointments?: Yes Do you have trouble paying your heating and electricity bill?: Yes Do you have trouble taking care of your child, family member or friend?: No Do you have trouble with day-to-day activities such as bathing, preparing meals, shopping, managing finances, etc.?: Yes Are you currently unemployed and looking for a job?: No Are you interested in more education?: No Currently or been in a relationship where the following occur: I choose not to answer THRIVE Score: 5 RUI-7 AMB Questionnaire RUI-7 Date RUI - 7 assessed: 08/20/24 Source: Developed by Drs. Kahlil Thao, Patito Pradhan, Shine Carias and colleagues, with an educational kathleen from [employer]. Physical exam (Primary Care) Vital Signs: Last Vital Signs Temp 97.1 F 01/16/25 11:11 Pulse 87 01/16/25 11:11 BP 122/88 01/16/25 11:11 Pulse Ox 97 01/16/25 11:11 Oxygen Delivery Method Room Air 01/16/25 11:11 BMI result Body Mass Index 38.4 Tobacco/Smoking Status: Tobacco use Status Tobacco use date assessed 09/18/24 01/16/25 10:57 Patient Tobacco Use Status Current everyday Tobacco 01/16/25 10:57 Tobacco use type Cigarette 01/16/25 10:57 e-Cigarette/Vaping Use Never Used 01/16/25 10:57 Thrive Assessment: Date of Thrive Assessment Date Thrive assessed 09/18/24 01/16/25 10:57 Currently or been in a relationship where the following occur: I choose not to answer Results AMB Hemoglobin A1c AMB Hemoglobin A1c 8.9 % Last Edit by RADHA Chen on 01/16/25 11:22 Results Reviewed Results Reviewed: Laboratory Last Values Hgb A1c (Clinic) 8.9 % (4.0-6.0) H 01/16/25 11:07 Coding Diagnoses Incisional hernia, without obstruction or gangrene K43.2 Obstruction and gangrene presence: without obstruction or gangrene Uncontrolled type 2 diabetes mellitus with hyperglycemia E11.65 Glycemic state: with hyperglycemia Hypertriglyceridemia E78.1 Tobacco dependence F17.200 Centrilobular emphysema J43.2 COPD type: emphysema Emphysema type: centrilobular Assessment & Plan Assessment & Plan (1) Incisional hernia: Code(s): K43.2 - Incisional hernia without obstruction or gangrene Category: Medical Qualifiers: Obstruction and gangrene presence: without obstruction or gangrene Qualified Code(s): K43.2 - Incisional hernia without obstruction or gangrene Plan: Patient continues to follow up with general surgeon for her hernia evaluation. Unfortunately her appointments have been delayed due to some clear reason.. She needs to have better glycemic control to which she has making med adjustments with [facility] endocrin[facility]. She continues to wear a abdominal binder which helps to hold her hernia in placed. UNFORTUNATELY CONTINUES TO HAVE RIPPING TYPE PAIN IN HER ABDOMEN TO WHICH SHE REQUIRES NARCOTIC PAIN MEDICATION AND REST FROM TIME TO TIME. SHE DOES REPORT SHE FEELS THAT HER HERNIA HAS MOVED DOWN WORDS PASSING ON HER AUTOMATIC BEADING LATHE OPERATOR ORGANS. SHE REPORTS HAVING HER MENSTRUATION 3 TIMES IN 1 MONTH SHE WILL BE GETTING FURTHER ASSESSMENT WITH HER AUTOMATIC BEADING LATHE OPERATOR WITH BIOPSY AND ULTRASOUND. IF ALL CLEAR SHE WILL GET CLEARANCE FROM HER AUTOMATIC BEADING LATHE OPERATOR FOR ABDOMINAL HERNIA SURGERY. (2) Diabetes type 2, uncontrolled: Code(s): E11.65 - Type 2 diabetes mellitus with hyperglycemia Category: Medical Qualifiers: Glycemic state: with hyperglycemia Qualified Code(s): E11.65 - Type 2 diabetes mellitus with hyperglycemia Plan: As per HPI patient now followed by [facility] endocrinology. Her type 2 diabetes is not well controlled. She does admit to some dietary indiscretion though recently has been trying to be better on her diet. Not been using her short- acting insulin before meals. She recently stopped Ozempic as she felt she was having side effects of dizziness. She does admit that there were some better glycemic control when taking Ozempic. She has been recently placed on pioglitazone which she feels is somewhat effective. Unfortunately she has not been able to manage checking her sugars regularly due to her freestyle centers falling off. She does understand she needs glycemic control to be a candidate complex abdominal hernia surgery. (3) Hypertriglyceridemia: Code(s): E78.1 - Pure hyperglyceridemia Category: Medical Plan: Has not been able to tolerate statin therapy as she feels she is having some chest pain with the use of atorvastatin. . She does have suboptimal control of her lipid panel. (4) Tobacco dependence: Code(s): F17.200 - Nicotine dependence, unspecified, uncomplicated Category: Medical Plan: Patient does admit to smoking a few cigarettes per day on stress. Her abdominal hernia causes her lot of pain and stress. (5) COPD (chronic obstructive pulmonary disease): Code(s): J44.9 - Chronic obstructive pulmonary disease, unspecified Category: Medical Qualifiers: COPD type: emphysema Emphysema type: centrilobular Qualified Code(s): J43.2 - Centrilobular emphysema Plan: Patient has a history of smoking in still does smoke a few cigarettes per day due to stress. She reports having a history of emphysema and was seeing a wheel cutter many years ago at [facility]. She would like to reestablish care with a wheel cutter she does at times feel somewhat short of breath. AGAIN ADVISED TO COMPLETELY QUIT SMOKING Orders: Orders AMB Hemoglobin A1c Today E11.65 - Type 2 diabetes mellitus with hyperglycemia Medications: Discontinued prednisone Discontinued Reason: Doctor's Order 40 mg (2 x 20 mg) PO DAILY 10 tabs 0RF Ozempic (semaglutide) Discontinued Reason: Doctor's Order 2 mg (0.75 mL) subcut QWEEK 9 mL 3RF NS E11.21 - Type 2 diabetes mellitus with diabetic nephropathy metronidazole Discontinued Reason: Doctor's Order 500 mg PO BID 7 days 14 tabs 0RF
[2025-01-16 11:11] VITALS: BP 122/88; PULSE 87; TEMP 36.2; O2SAT 97; BMI 38.4
--- OUTSIDE RECORDS SUMMARY | 2025-01-16 12:23 | XMS_ITS | Clinical Summary ---
Author Organization [employer] Address [address] [place] [address] [address] [place] [address] Care Team Providers Care Audio Production Engineer Name Role Phone Unavailable Primary Care Provider [...] Sodium Fluoride 1.1 % creamIndication s:Dental caries [place] teeth for 2 minutes, morning and night. [...] 10:30 AM EDT Office Visit [facility] [address] [place] [address] Nirmal Odell DMD Dental caries (Primary Dx) 11/06/2024 11:00 AM EDT Office Visit [facility] [address] [place] [address] Mireya Cole from Last 3 Months Social [...] 1:00 PM EDT Office Visit [facility] [address] [place] [address] Mireya Cole Health Maintenance Due Date Last [...] Most Recently Relevant to Health Maintenance Insurance [facility] MEDICAID STAND ADULT
== END 2025-01-16 11:43 | disposition home or self-care (01) ==
LOC: HO.HMCH 10:37
PROVIDERS: PCP Physician Assistant; Visit Provider Physician Assistant
DX: E11.65 Type 2 diabetes mellitus with hyperglycemia (principal)

== ENCOUNTER → 2025-01-16 10:35 | Outpatient (BNVA) | payer OTHER, SELFPAY | PROVIDERS: PCP Physician Assistant; Visit Provider Physician Assistant | DX: E11.65 Type 2 diabetes mellitus with hyperglycemia (principal); E11.21 Type 2 diabetes mellitus with diabetic nephropathy; E66.9 Obesity, unspecified; F17.210 Nicotine dependence, cigarettes, uncomplicated; K43.2 Incisional hernia without obstruction or gangrene; F41.1 Generalized anxiety disorder; E78.1 Pure hyperglyceridemia; J43.2 Centrilobular emphysema; Z79.891 Long term (current) use of opiate analgesic; Z68.38 Body mass index [BMI] 38.0-38.9, adult | CPT/HCPCS: 83036; 99212 ==

== ENCOUNTER 2025-01-20 13:37 | Outpatient (AMB) | payer OTHER, SELFPAY ==
--- NOTE | 2025-01-20 13:00 | MHC.OFFVIS ---
Vital Signs 01/20/25 13:40 Height 5 ft 4 in Weight 227 lb 1.218 oz BMI 39.0 BP 136/72 Blood Pressure Location Rt brachial Position Sitting Pulse 81 Pulse Source Pulse Oximeter Pulse Oximetry (%) 97 Oxygen Delivery Method Room Air Intake Visit Reasons: Emphysema/PFT Follow Up Allergies latex (LATEX) Allergy (Mild, Verified 01/20/25 13:43) RASH Iodinated Contrast Media (IV Contrast Dye) Allergy (Verified 01/20/25 13:43) Anaphylaxis amoxicillin Adverse Reaction (Unknown, Verified 01/20/25 13:43) vaginal infection dulaglutide (From Trulicity) Adverse Reaction (Unknown, Verified 01/20/25 13:43) vomitting, nausea semaglutide (From Ozempic) Adverse Reaction (Unknown, Verified 01/20/25 13:43) Chest pain, vomitting oral contrast Allergy (Severe, Uncoded 01/20/25 14:06) Anaphylaxis HPI HPI Emphysema/PFT Follow Up: Details: Mckenzie is a pleasant 49-year-old female, current smoker, with 18+ pyh with underlying asthma, coronary artery disease, GERD, hypertension and diabetes. At the last visit, she reported suboptimal control on Ventolin, and using an Advair, which was restarted. Unfortunately, she has only been using one inhalation daily and continues with dry cough, wheezing, and dyspnea on exertion. Today she presents to review RAST and PFT. [facility] Medical History Hordeolum externum of right eye Itching Obesity (BMI 30-39.9) Sepsis Diverticulitis of both large and small intestine with perforation and abscess Diverticulitis of large intestine with abscess Morbid obesity with BMI of 50.0-59.9, adult Hypertension Vitamin D deficiency B12 deficiency Diabetic nephropathy associated with type 2 diabetes mellitus Dyslipidemia Hirsutism Diabetes type 2, uncontrolled Surgical History Hx of abdominal surgery Hx of umbilical hernia repair History of ankle surgery Hx of section Family History Father Throat cancer Cirrhosis Mother Diabetes Sister History of hysterectomy Social History Household Members: None Housing: House Do you presently have visiting nurse or other home services: Yes Alcohol intake: former Patient Tobacco Use Status: Current everyday Tobacco user Tobacco use type: Cigarette Cigarette Packs Per Day: 0.5 Cigarettes Per Day: 1 Years Smoked: 30 e-Cigarette/Vaping Use: Never Used Second Hand Smoke Exposure: Yes Substance Use Type: Marijuana Advance Directives Date on File: 05/05/21 service: No Current occupational status: disabled Cognitive needs: No Hearing needs: No Vision needs: Yes Review of Systems Const Denies chills, Denies excessive sweating, Denies fever(s), Denies headache(s) and Denies night sweats Eyes Denies dry eyes, Denies irritation and Denies itchy eyes ENT Reports Normal hearing present, Denies headache(s), Denies nasal congestion, Denies nasal discharge, Denies post nasal drip and Denies sore throat Card Denies chest pain, Denies chest pain at rest, Denies chest pain with activity, Denies claudication, Denies leg edema, Reports dyspnea on exertion, Denies orthopnea and Denies paroxysmal nocturnal dyspnea Resp Denies change in phlegm color, Denies chest congestion, Reports cough, Denies hemoptysis, Denies excessive phlegm production, Denies pain on inspiration, Denies pain with cough, Reports dyspnea on exertion, Denies stridor and Reports wheezing Musc Denies myalgias Neuro Reports Normal hearing present and Denies headache(s) Endo Denies excessive sweating Abhijit/Lymph Denies lymphadenopathy Aller/Immun Denies itchy eyes, Denies seasonal rhinorrhea and Reports wheezing Physical Exam Vital Signs: Last Vital Signs Pulse 81 01/20/25 13:40 BP 136/72 01/20/25 13:40 Pulse Ox 97 01/20/25 13:40 Oxygen Delivery Method Room Air 01/20/25 13:40 BMI result Body Mass Index 39.0 Const General: cooperative, healthy appearing, comfortable, no acute distress, well developed and alert Nutritional Appearance: obese Orientation/consciousness: patient oriented x3 Limitations: no limitations HEENT Head: Yes normal to inspection, Yes normocephalic and Yes atraumatic Ears: hearing grossly normal bilaterally and external ears normal Eyes General: appearance normal, both eyes and all related structures Eyelids: Yes eyelids normal Sclerae: sclerae normal EOM: EOMs intact bilaterally Neck Neck: Yes normal visual inspection and Yes no lymphadenopathy Lymphatic: no lymphadenopathy noted Chest Chest palpation & inspection: normal inspection of the chest Resp Effort & Inspection: normal respiratory effort, able to speak in complete sentences, no audible wheezes, no cough, no stridor, not tachypneic, no tripod positioning and no use of accessory muscles Auscultation: clear to auscultation bilaterally Cardio Jugular venous distension: no JVD Rate: regular rate Rhythm: regular rhythm Skin Other: warm, dry General skin exam: no rashes or lesions noted Neuro General: patient oriented x3 Cranial nerves: Yes Normal hearing present Cognition (Neuro): normal cognition Gait exam (Neuro): Normal gait present Extrem General: Yes normal to inspection, Yes capillary refill normal, Yes no clubbing, cyanosis or edema and Yes no pedal edema Psych Appearance: grossly normal and well kempt Speech and movement: Normal speech and movement present and Clear speech present Affect: normal affect Attitude: cooperative Thought process: Normal thought process present Thought content: Normal thought content present Insight: Good insight present (Psych) Judgement: Good judgement present (Psych) Assessment & Plan Assessment & Plan (1) Asthma: Code(s): J45.909 - Unspecified asthma, uncomplicated Category: Medical (2) Chronic cough: Code(s): R05.3 - Chronic cough Category: Medical (3) Nicotine dependence, cigarettes, uncomplicated: Code(s): F17.210 - Nicotine dependence, cigarettes, uncomplicated Category: Medical Plan Reviewed PFT which revealed moderate restrictive ventilatory defect with no bronchodilator response. Decreased expiratory reserve volume suggests extrathoracic restriction likely secondary to abdominal obesity. Combination of restrictive ventilatory defect with decreased diffusion capacity suggests underlying pulmonary parenchymal disease. Discussed importance of weight loss. Encouraged Advair BID, as previously only using QD. May need to switch to Trelegy. Awaiting Chest CT scheduled for February 11. RAST positive to mold, grass, mikael and parakeet. Discussed importance of limiting exposure to birds given recent allergy testing. Smoking cessation reviewed, patient not ready to quit at this time. All questions were answered and patient is in agreement of plan. Will follow-up in 6-8 weeks or sooner if needed. Coding Level of Care Code Est Pt Level 4 (78797) Diagnoses Asthma J45.909 Chronic cough R05.3 Nicotine dependence, cigarettes, uncomplicated F17.210
[2025-01-20 13:40] VITALS: BP 136/72; PULSE 81; O2SAT 97; BMI 39.0
--- OUTSIDE RECORDS SUMMARY | 2025-01-20 14:07 | XMS_ITS | Data Portability ---
Author Organization [place] [facility], Allergy Address [address] [address] Assessment Encounter Date Assessment Date Assessment LastModified [...] recorded. Referral neurologist referral 2023 024 2 [facility] Scheduling, [address] [place], [address], 4 10:41:05 Procedures None recorded. Surgeries None recorded. Imaging None recorded. Medication Orders None recorded. Patient TargetsNo targets recorded. Patient InstructionsNo instructions recorded. Reason for Referral Neurologist Referral for Burt roddy without aura Referring Physician: Junie Rich, Otolaryngology, Encounter Date: 12/29/2023 Results Created Date Observation Date Name Description Value Unit Range Abnormal Flag Note LastModifiedBy Organization Detail LastModifiedTime 01/03/20 24 audio gram No observ ation record ed. BARCODE Not Available 2023 12:57:38 Result Notes None recorded. Problems Name Problem SNOMED Code Status Onset Date Resolution Date Notes Provider Name and Address Organization Details Recorded Time Abnormal auditory perception 18595963 Active 2023 Savannah chicas [place] - [facility] 4 16:32:03 Migraine without aura 76915979 Active 2023 JUNIE RICH PA-C [address] [place] [address],[place] [address], [place], [phone], [facility] - [facility] [place] 4 16:52:39 Dizziness and giddiness 009738004 Active 2023 JUNIE RICH PA-C [address] [place] [address],[place] [address], [place], [phone], [facility] - [facility] 4 16:52:43 Bilateral earache 036903911 Active 2023 JUNIE RICH PA-C [address] [place] [address],[place] [address], [place], [address], [facility] - [facility] 4 16:52:54 Bilateral temporomand ibular joint pain 5791944059255 9105 Active 2023 JUNIE RICH PA-C [address] [place] [address], [address] [place] [address], [phone], [facility] - [facility] 4 16:53:00 Problem Notes None recorded. Procedures Surgical History Date Name Laterality Status Provider Name and Address Organization Details Recorded Time Comp Audio with Tymps - 19190 & 39123 completed Savannah Goldsmith [place] - [facility] 12/29/2023 16:30:31 Cerumen removal without microscope left completed JUNIE RICH PA-C [address], [address], [facility] - [facility] 12/29/2023 14:56:07 Imaging Results None recorded. Procedure Notes None recorded. Medical Equipment None [...] Note [id number] JUNIE RICH PA-C [facility] [address] [address] 12/29/2023 13:49:33 12/29/2023 16:39:20 Abnormal auditory perception 27205434 H93.299 Audiologic al evaluation results: Right ear: Normal hearing with excellent word recognitio n. Left ear: Normal hearing with excellent word recognitio n. Tympanomet ry: Right Ear:Type Ad Left Ear:Type Ad Migraine without aura 56 087997 G43.009 Dizziness and giddiness 811189720 R42 Bilateral earache 978071 003 H92.03 Bilateral temporomandibular joint pain 5144879575 [id number] M26.623 Health Concerns Section Related Observation LastModified by Organization Detai ls LastModified Time None Recorded Concern Status LastModified by Organization Details LastModified Time None Recorded Advance Directives Directive None Recorded Payers Insurance Date Sequence Insurance Name Policy Number Policy Rodriguez Covered Member ID Rodriguez Member ID Guarantor Name 06/30/2024 1 [employer] - HEALTH NET PLAN (MEDICAID HMO) BURTON Quiñonez [id number] Mckenzie Quiñonez Notes Date Note Type Note [...] them in several years. JUNIE RICH PA-C [address] [place] [address],[place] [address], [place], [address], [place] - [facility] 12/29/2023 16:53:54 OBGyn Episode No OBEpisode recorded.
--- OUTSIDE RECORDS SUMMARY | 2025-01-20 14:07 | XMS_ITS | Clinical Summary ---
Author Organization [facility] Address [address] [place] [address] Care Team Providers Care Dockworker Name Role Phone Diogo Wright MD Primary Care Provider [phone] Allergies Active Allergy Reactions Criticality Noted Date [...] 116 03/12/2021 2:49 PM EDT Temperature 36.4 C (97.5 F) 03/12/2021 2:49 PM EDT Respiratory Rate - - Oxygen Saturation 97% [...] Colon Cancer Screening (Colonoscopy) 2021 Influenza Vaccine (Season Ended) 2025 DTap / Tdap / Td (2 - Td or Tdap) 12/10/2025 016 RSV Ped < 20 months Aged Out No longe r eligible based on patient's age to complete this topic Care Teams Dockworker Relationship Specialty Start Date End Date Diogo Wright MD PCP - General Internal Medicine 03/12/21
--- OUTSIDE RECORDS SUMMARY | 2025-01-20 14:07 | XMS_ITS | Clinical Summary ---
Author Organization [employer] Address [address] [place] [address] [address] [place] [address] Care Team Providers Care Conveyor System Operator Name Role Phone Unavailable Primary Care [...] Sodium Fluoride 1.1 % creamIndication s:Dental caries [place] teeth for 2 minutes, morning and night. [...] Description 11/08/2024 10:30 AM EDT Office Visit [facility] ADULT D[facility]AL [address] [place] [address] Nirmal Odell DMD Dental caries (Primary Dx) 11/06/2024 11:00 AM EDT Office Visit [facility] ADULT DENTAL [address] [place] [address] Mireya Cole from Last 3 Months Social [...] Description 01/23/2025 1:00 PM EDT Office Visit [facility] ADULT DENTAL [address] [place] [address] Mireya Cole Health Maintenance Due Date Last [...] Most Recently Relevant to Health Maintenance Insurance [facility] MEDICAID STAND ADULT
--- OUTSIDE RECORDS SUMMARY | 2025-01-20 14:07 | XMS_ITS | Clinical Summary ---
Author Organization [facility] it Address [address] [place] [address] Care Team Providers Care Civil Laboratory Technician Name Role Phone Diogo Wright MD Primary Care Provider [phone] Allergies Active Allergy Reactions Criticality Noted Date [...] 12/19/2019 Fatty liver 12/11/2019 Asthma-COPD overlap syndrome ([facility] V24, [facility] V28) 01/23/2019 Mediastinal lymphadenopathy 01/23/2019 Pulmonary nodules 01/23/2019 Hidradenitis 12/14/2018 Obesity (BMI 30-39.9) 08/01/2018 Snoring 06/29/2018 Overview (07/22/2024): 05/2018 Home Sleep Study did not reveal sleep apnea. Type 2 diabetes mellitus ([facility] V24, [facility] V 28) 04/26/2018 Vitamin D [...] Emphysema, unspecified ([facility] V24, [facility] V28) 01/06 DX:Emphysema, unspecified (H CC); COMMENT: per patient Obesity DX:Obesity COPD (chronic obstructive pu lmonary disease) ([facility] V24, [facility] V28) DX:COPD (chronic o bstructive pulmonary disease) ([facility]) Tobacco abuse DX:Tobacco abuse Type 2 diabetes mellitus ( S/[facility] V24, [facility] V28) DX:Type 2 diabetes mellitus ([facility]) Vitamin D deficiency DX:Vitamin D deficiency Anxiety DX:Anxiety Hyperlipidemia DX:Hyperlipidemi a Family History Medical History Relation Name Comments Breast cancer Aunt paternal ?age Suicide Attempts Brother x 1 Throat cancer Father (+smoker), COMMERCIAL REAL ESTATE BROKER D, HTN, liver transplant Heart failure Maternal [...] Results * Urine Albumin Creatinine Ratio (03/27/2020) [facility] Urine Albumin Creatinine Ratio abstracted Result [facility] Final Result * Annual BMP Blood Test (03/27/2020) [facility] Annual BMP Blood Test abstracted Result [facility] Final Result * (ABNORMAL) Hemoglobin A1c (03/27/2020) [facility] Hemoglobin A1C 7.2(A) <=6.5 % Blood Venous blood specimen / Unknown Result [facility] BLOOD ORDERABLES Celsa l Result * (ABNORMAL) Lipid panel (03/27/2020) [facility] LDL/HDL Ratio 9(A) 0 - 4 Triglycerides 388(A) 0 - 150 mg/dL Cholesterol 285(A) 0 - 200 mg/dL HDL 31(A) >=40 mg/dL LDL Cholesterol 177(A) 0 - 100 mg/dL Blood Venous blood specimen / Unknown Result [facility]LOOD ORDERABLES Celsa l Result * HIV Screening (08/23/2018) [facility] HIV Screening abstracted Result [facility] Final Result * Hepatitis C Screening (08/23/2018) [facility] Hepatitis C Screening abstracted Result [facility] Final Result * Cervical Cancer Screening: HPV (02/09/2016) [facility] Cervical Cancer Screening: HPV negative, abstracted Result [facility] Final Result from Last 3 Months or Most Recently Relevant to Health Maintenance Care Teams Civil Laboratory Technician Relationship Specialty Start Date End Date Diogo Wright MD PCP - General Internal Medicine 03/12/21
== END 2025-01-20 14:20 | disposition home or self-care (01) ==
LOC: HO.HPS 13:38
PROVIDERS: PCP Physician Assistant; Visit Provider Nurse Practitioner Family
DX: J45.909 Unspecified asthma, uncomplicated (principal); R05.3 Chronic cough; F17.210 Nicotine dependence, cigarettes, uncomplicated
CPT/HCPCS: 99214

== ENCOUNTER → 2025-01-20 13:37 | Outpatient (BNVA) | payer OTHER, SELFPAY | PROVIDERS: PCP Physician Assistant; Visit Provider Nurse Practitioner Family | DX: R05.3 Chronic cough (principal); Z91.09 Other allergy status, other than to drugs and biological substances; J45.909 Unspecified asthma, uncomplicated | CPT/HCPCS: 99212 ==

== ENCOUNTER 2025-02-06 14:33 | Outpatient (REF) | payer OTHER, SELFPAY ==
--- NOTE | ~2025-02-06 | US_ITS ---
EXAMINATION: US PELVIS TRANSABDOMINAL AND TRANSVAGINAL HISTORY: N83.299 - Other ovarian cyst, unspecified side COMPARISON: Comparison is made with the prior examination dated 11/28/2024. TECHNIQUE: Transabdominal and endovaginal real-time 2D mcarthur-scale ultrasound was performed. FINDINGS: Uterus: The uterus is normal in size, measuring 11.0 x 5.3 x 5.3 cm. Myometrium has a normal echotexture. There is an anterior fibroid measuring 1.4 x 1.1 x 1.3 cm (previously 1.8 x 1.3 x 1.6 cm). Endometrium: The endometrial stripe measures 11 mm in thickness. There is fluid in the cervix. Right ovary: The right ovary measures 4.1 x 2.7 x 3.3 cm. There is a 2.1 x 1.6 x 1.8 cm hypoechoic, structure in the right ovary which may represent a cyst, although evaluation is limited. Left ovary: The left ovary measures 2.8 x 1.5 x 2.0 cm. The left ovary is normal in size and echotexture. Pelvic fluid: none. US/US pelvic and transvaginal IMPRESSION: 1. 1.4 cm anterior uterine fibroid. 2. 2.1 x 1.6 x 1.8 cm right ovarian cystic structure, difficult to fully characterize. Follow-up is recommended. Electronically signed by: Kahlil Nelson MD 02/06/2025 03:35 PM EDT
--- OUTSIDE RECORDS SUMMARY | 2025-02-06 15:20 | XMS_ITS | Clinical Summary ---
Author Organization [facility] Address [address] [place] [address] Care Team Providers Care Electrocardiograph Technician Name Role Phone Diogo Wright MD Primary Care Provider [phone] Allergies Active Allergy Reactions Criticality Noted Date [...] Cancer Screening (Colonoscopy) 2021 Influenza Vaccine (#1) 2025 DTap / Tdap / Td (2 - Td or Tdap) 12/10/2025 016 RSV Ped < 20 months Aged Out No longe r eligible based on patient's age to complete this topic Care Teams Electrocardiograph Technician Relationship Specialty Start Date End Date Diogo Wright MD PCP - General Internal Medicine 03/12/21
--- OUTSIDE RECORDS SUMMARY | 2025-02-06 15:20 | XMS_ITS | Clinical Summary ---
Author Organization [facility] it Address [address] [place] [address] Care Team Providers Care Senior Process Analyst Name Role Phone Diogo Wright MD Primary Care Provider [phone] Allergies Active Allergy Reactions Criticality Noted Date [...] 12/19/2019 Fatty liver 12/11/2019 Asthma-COPD overlap syndrome ([facility] V24, [facility] V28) 01/23/2019 Mediastinal lymphadenopathy 01/23/2019 Pulmonary nodules 01/23/2019 Hidradenitis 12/14/2018 Obesity (BMI 30-39.9) 08/01/2018 Snoring 06/29/2018 Overview (07/22/2024): 05/2018 Home Sleep Study did not reveal sleep apnea. Type 2 diabetes mellitus ([facility] V24, [facility] V 28) 04/26/2018 Vitamin D deficiency 04/26/2018 [...] s/p repair Anxiety 12/11/2015 DX:Anxiety Emphysema, unspecified ([facility] V24, [facility] V28) 01/06 DX:Emphysema, unspecified (H CC); COMMENT: per patient Obesity DX:Obesity COPD (chronic obstructive pu lmonary disease) ([facility] V24, [facility] V28) DX:COPD (chronic o bstructive pulmonary disease) ([facility]) Tobacco abuse DX:Tobacco abuse Type 2 diabetes mellitus ( S/[facility] V24, [facility] V28) DX:Type 2 diabetes mellitus ([facility]) Vitamin D deficiency DX:Vitamin D deficiency Anxiety DX:Anxiety Hyperlipidemia DX:Hyperlipidemi a Family History Medical History Relation Name Comments Breast cancer Aunt paternal ?age Suicide Attempts Brother x 1 Throat cancer Father (+smoker), NITRIC ACID CONCENTRATOR OPERATOR D, HTN, liver transplant Heart failure [...] 5 Years) and At-Risk Patients (6 to 49 Years) (1 of 2 - PCV) 1995 Cervical Cancer Screening: P ap Smear 02/08/2019 02/09/2016, 02/09/2016 Diabetes: Annual GFR (Glomerular Filtration Rate) 03/27/2021 03/27/2020 Colorectal Cancer Screening: Colonoscopy 06/26/2022 Depression Screening 06/26/2022 Social Influencers of Health Screening 06/26/2022 Diabetes: Annual Urine Albumin-Creatinine Ratio (uACR) 06/30/2022 03/27/2020 Diabetes: Blood Sugar Contro l Test (HGBA1C) 06/30/2022 03/27/2020 Influenza Vaccine (#1) 2025 Cholesterol Screening (Lipid Panel) 03/27/2025 03/27/2020 [...] * Urine Albumin Creatinine Ratio (03/27/2020) [facility] Urine Albumin Creatinine Ratio abstracted Result [facility] Final Result * Annual BMP Blood Test (03/27/2020) [facility] Annual BMP Blood Test abstracted Result [facility] Final Result * (ABNORMAL) Hemoglobin A1c (03/27/2020) [facility] Hemoglobin A1C 7.2(A) <=6.5 % Blood Venous blood specimen / Unknown Result [facility] BLOOD ORDERABLES Celsa l Result * (ABNORMAL) Lipid panel (03/27/2020) [facility] LDL/HDL Ratio 9(A) 0 - 4 Triglycerides 388(A) 0 - 150 mg/dL Cholesterol 285(A) 0 - 200 mg/dL HDL 31(A) >=40 mg/dL LDL Cholesterol 177(A) 0 - 100 mg/dL Blood Venous blood specimen / Unknown Result [facility] BLOOD ORDERABLES Celsa l Result * HIV Screening (08/23/2018) [facility] HIV Screening abstracted Result [facility] Final Result * Hepatitis C Screening (08/23/2018) [facility] Hepatitis C Screening abstracted Result [facility] Final Result * Cervical Cancer Screening: HPV (02/09/2016) [facility] Cervical Cancer Screening: HPV negative, abstracted Result [facility] Final Result from Last 3 Months or Most Recently Relevant to Health Maintenance Care Teams Senior Process Analyst Relationship Specialty Start Date End Date Diogo Wright MD PCP - General Internal Medicine 03/12/21
--- OUTSIDE RECORDS SUMMARY | 2025-02-06 15:20 | XMS_ITS | Clinical Summary ---
Author Organization [employer] Address [address] [place] [address] [address] [place] [address] Care Team Providers Care Quill Reamer Name Role Phone Unavailable Primary Care Provider [...] Active Additional Information Patient not taking.Reported on 01/23/2025 atorvastatin (Lipitor) 40 MG tablet Take 1 [...] Sodium Fluoride 1.1 % creamIndication s:Dental caries [place] teeth for 2 minutes, morning and night. Spit, do not rinse. Do not eat or drink anything for 30 minutes following use. 112 g 3 5 Active amLODIPine (Norvasc) 5 MG tablet 3 Active Active Problems Problem Noted Date [...] Encounters Date Type Department Care Team Description 01/23/2025 1:00 PM EDT Office Visit [facility] ADULT DENTAL [address] [place] [address] Mireya Cole Dental calculus (Primary Dx); Dental plaque; Dental caries; Edentulism; Partial edentulism, unspecified edentulism class 11/08/2024 10:30 AM EDT Office Visit [facility] ADULT DENTAL [address] [place] [address] Jose R NirmalLISA Dental caries (Primary Dx) from Last 3 Months [...] Sign Reading Time Taken Comments Blood Pressure 124/72 01/23/2025 1:06 PM EDT Pulse 67 11/16/2022 1:22 PM EDT Temperature - - Respiratory Rate - - Oxygen Saturation - - Inhaled Oxygen Concentration - - Weight - - Height - - Body Mass Index - - Plan of Treatment Health Maintenance Due Date [...] Hemoglobin A1C 06/26/2020 03/27/2020 Influenza Vaccine (#1) 2025 Dental X-Ray: Bitewings 07/26/2025 07/25/2024 Dental Oral Exam 07/27/2025 01/23/2025, 07/25/2024, 03/17/2023 Dental Prophylaxis 07/27/2025 01/23/2025, 07/25/2024 DTaP/Tdap/Td Vaccines (2 - T d or Tdap) 12/10/2025 12/11/2015 Tobacco Screening 01/23/2026 01/23/2025 Dental X-Ray: Full Mouth 07/26/2027 07/25/2024 RSV [...] Procedure Name Priority Date/Time Associated Diagnosis Comments PERIODIC ORAL EVALUATION - ESTABLISHED PATIENT Routine 01/23/2025 1:00 PM EDT Dental caries Edentulism Partial edentulism, unspecified edentulism class ORAL HYGIENE INSTRUCTIONS Routine 01/23/2025 1:00 PM EDT Dental caries Edentulism Partial edentulism, unspecified edentulism class CASE PRESENTATION, DETAILED AND EXTENSIVE TREATMENT PLANNING Routine 01/23/2025 1:00 PM EDT Dental caries Edentulism Partial edentulism, unspecified edentulism class PROPHYLAXIS - ADULT Routine 01/23/2025 1 :00 PM EDT Dental caries Edentulism Partial edentulism, unspecified edentulism class CASE PRESENTATION, DETAILED AND EXTENSIVE TREATMENT PLANNING [...] Routine 11/08/2024 10:30 AM EDT Dental caries INTRAORAL - COMPLETE SERIES OF RADIOGRAPHIC IMAGES Routine 07/25/2024 2:00 PM EST Dental caries Periodontal disease from Last 3 Months or Most Recently Relevant to Health Maintenance Insurance [facility] MEDICAID STAND ADULT
--- OUTSIDE RECORDS SUMMARY | 2025-02-06 15:20 | XMS_ITS | Data Portability ---
Author Organization [facility], Allergy Address [address] [address] Assessment Encounter Date Assessment Date Assessment LastModified [...] disequilibrium is coming from an otologic source. [email or web address] Not available 12/29/2023 16:52:35 Plan of Treatment Reminders Order Date Submit Date Provider Last Modified By Organization Details Last Modified Time Details Appointments None recorded. Lab None recorded. Referral neurologist referral 2023 024 2 [facility] Neurology Scheduling, [address] [place], [address], 4 10:41:05 Procedures None recorded. Surgeries None [...] Organization Details Recorded Time Abnormal auditory perception 15574537 Active 2023 Savannah chicas [place] - [facility] 4 16:32:03 Migraine without aura 05147102 Active 2023 JUNIE RICH PA-C [address] [place] [address],[place] [address], [place], [address], [facility] - [facility] 4 16:52:39 Dizziness and giddiness 970358187 Active 2023 JUNIE RICH PA-C [address] [place] [address],[place] [address], [place], [address], [facility] - [facility] 4 16:52:43 Bilateral earache 882118643 Active 2023 JUNIE RICH PA-C [address] [place] [address],[place] [address], [place], [address], [facility] - [facility] 4 16:52:54 Bilateral temporomand ibular joint pain [id number] 9105 Active 2023 JUNIE RICH PA-C [address] [place] [address], [address] [place] [address], [address], [facility] - [facility] 4 16:53:00 Problem Notes None recorded. Procedures Surgical History Date Name Laterality Status Provider Name and Address Organization Details Recorded Time Comp Audio with Tymps - 12320 & 08054 completed Savannah Goldsmith [place] - [facility] 12/29/2023 16:30:31 Cerumen removal without microscope left completed JUNIE RICH PA-C [address], [address], [facility] - [facility] 12/29/2023 14:56:07 Imaging Results None recorded. Procedure [...] Diagnosis ICD10 Code Diagnosis Note [id number] JUNIE IRCH PA-C [facility] [address] [address] 12/29/2023 13:49:33 12/29/2023 16:39:20 Abnormal auditory perception [id number] H93.299 Audiologic al evaluation results: Right ear: Normal hearing with excellent word recognitio n. Left ear: Normal hearing with excellent word recognitio n. Tympanomet ry: Right Ear:Type Ad Left Ear:Type Ad Migraine without aura 56 872501 G43.009 Dizziness and giddiness 357882009 R42 Bilateral earache 958406 003 H92.03 Bilateral temporomandibular joint pain [id number] 1990436 M26.623 Health Concerns Section Related Observation LastModified by Organization Detai ls LastModified Time None Recorded Concern Status LastModified by Organization Details LastModified Time None Recorded Advance Directives Directive None Recorded Payers Insurance Date Sequence Insurance Name Policy Number Policy Rodriguez Covered Member ID Rodriguez Member ID Guarantor Name 06/30/2024 1 [employer] [employer] - HEALTH NET PLAN (MEDICAID HMO) BURTON Quiñonez [id number] Mckenzie Quiñonez Notes Date Note Type Note [...] them in several years. JUNIE RICH PA-C [address] [place] [address],[place] [address], [place], [address], [place] - [facility] 12/29/2023 16:53:54 OBGyn Episode No OBEpisode recorded.
== END 2025-02-06 14:34 | disposition home or self-care (01) ==
LOC: HO.US 14:33
PROVIDERS: PCP Physician Assistant; Visit Provider Obstetrics & Gynecology
DX: N83.299 Other ovarian cyst, unspecified side (principal)
CPT/HCPCS: 76830; 76856

== ENCOUNTER → 2025-02-06 14:34 | Outpatient (BNV) | payer OTHER, SELFPAY | PROVIDERS: PCP Physician Assistant; Visit Provider Radiology Diagnostic Radiology | DX: N83.291 Other ovarian cyst, right side (principal); D25.9 Leiomyoma of uterus, unspecified | CPT/HCPCS: 76830; 76856 ==

== ENCOUNTER 2025-02-20 14:58 | Outpatient (REF) | payer OTHER, SELFPAY ==
--- NOTE | ~2025-02-20 | XR_ITS ---
EXAMINATION: XR CHEST CLINICAL INFORMATION: R05.3 - Chronic cough COMPARISON: May 09, 2024 TECHNIQUE: 2 views of the chest were obtained. FINDINGS: No significant abnormality is noted involving the heart, lungs, mediastinum, bony thorax or soft tissues. There has been resection of distal left clavicle XR/XR chest 2V IMPRESSION: No acute disease Electronically signed by: Vince Vergara MD 02/20/2025 03:29 PM EDT
--- OUTSIDE RECORDS SUMMARY | 2025-02-20 15:03 | XMS_ITS | Clinical Summary ---
Author Organization [facility] it Address [address] [place] [address] Care Team Providers Care Rotary Soil Stabilizer Name Role Phone Diogo Wright MD Primary Care Provider [phone] Allergies Active Allergy Reactions Criticality Noted Date [...] 12/19/2019 Fatty liver 12/11/2019 Asthma-COPD overlap syndrome ([facility] V24, [facility] V28) 01/23/2019 Mediastinal lymphadenopathy 01/23/2019 Pulmonary nodules 01/23/2019 Hidradenitis 12/14/2018 Obesity (BMI 30-39.9) 08/01/2018 Snoring 06/29/2018 Overview (07/22/2024): 05/2018 Home Sleep Study did not reveal sleep apnea. Type 2 diabetes mellitus ([facility] V24, [facility] V 28) 04/26/2018 Vitamin D deficiency [...] s/p repair Anxiety 12/11/2015 DX:Anxiety Emphysema, unspecified ([facility] V24, [facility] V28) 01/06 DX:Emphysema, unspecified (H CC); COMMENT: per patient Obesity DX:Obesity COPD (chronic obstructive pu lmonary disease) ([facility] V24, [facility] V28) DX:COPD (chronic o bstructive pulmonary disease) ([facility]) Tobacco abuse DX:Tobacco abuse Type 2 diabetes mellitus ( S/[facility] V24, [facility] V28) DX:Type 2 diabetes mellitus ([facility]) Vitamin D deficiency DX:Vitamin D deficiency Anxiety DX:Anxiety Hyperlipidemia DX:Hyperlipidemi a Family History Medical History Relation Name Comments Breast cancer Aunt paternal ?age Suicide Attempts Brother x 1 Throat cancer Father (+smoker), PICCOLOIST D, HTN, liver transplant Heart failure Maternal [...] 03/27/2021 03/27/2020 Colorectal Cancer Screening: Colonoscopy 06/26/2022 Social Influencers of Health Screening 06/26/2022 Diabetes: Annual Urine Albumin-Creatinine Ratio (uACR) 06/30/2022 03/27/2020 Diabetes: Blood Sugar Contro l Test (HGBA1C) 06/30/2022 03/27/2020 Depression Screening 07/24/2024 Influenza Vaccine (#1) 2025 Cholesterol Screening (Lipid [...] Results * Urine Albumin Creatinine Ratio (03/27/2020) [facility] Urine Albumin Creatinine Ratio abstracted Result [facility] Final Result * Annual BMP Blood Test (03/27/2020) [facility] Annual BMP Blood Test abstracted Result [facility] Final Result * (ABNORMAL) Hemoglobin A1c (03/27/2020) [facility] Hemoglobin A1C 7.2(A) <=6.5 % Blood Venous blood specimen / Unknown Result [facility] BLOOD ORDERABLES Celsa l Result * (ABNORMAL) Lipid panel (03/27/2020) [facility] LDL/HDL Ratio 9(A) 0 - 4 Triglycerides 388(A) 0 - 150 mg/dL Cholesterol 285(A) 0 - 200 mg/dL HDL 31(A) >=40 mg/dL LDL Cholesterol 177(A) 0 - 100 mg/dL Blood Venous blood specimen / Unknown Result [facility]LO[facility] ORDERABLES Celsa l Result * HIV Screening (08/23/2018) [facility] HIV Screening abstracted Result [facility] Final Result * Hepatitis C Screening (08/23/2018) [facility] Hepatitis C Screening abstracted Result [facility] Final Result * Cervical Cancer Screening: HPV (02/09/2016) [facility] Cervical Cancer Screening: HPV negative, abstracted Result [facility] Final Result from Last 3 Months or Most Recently Relevant to Health Maintenance Care Teams Rotary Soil Stabilizer Relationship Specialty Start Date End Date Diogo Wright MD PCP - General Internal Medicine 03/12/21
--- OUTSIDE RECORDS SUMMARY | 2025-02-20 15:03 | XMS_ITS | Clinical Summary ---
Author Organization [facility] Address [address] [place] [address] Care Team Providers Care Screen Printer Name Role Phone Diogo Wright MD Primary Care Provider [phone] Allergies Active Allergy Reactions Criticality Noted Date [...] age to complete this topic Care Teams Screen Printer Relationship Specialty Start Date End Date Diogo Wright MD PCP - General Internal Medicine 03/12/21
--- OUTSIDE RECORDS SUMMARY | 2025-02-20 15:03 | XMS_ITS | Clinical Summary ---
Author Organization [employer] Address [address] [place] [address] [address] [place] [address] Care Team Providers Care Cullet Crusher Name Role Phone Unavailable Primary Care Provider [...] Sodium Fluoride 1.1 % creamIndication s:Dental caries [place] teeth for 2 minutes, morning and [...] Description 01/23/2025 1:00 PM EDT Office Visit [facility] ADULT DENTAL [address] [place] [address] Mireya Cole Dental calculus (Primary Dx); Dental plaque; Dental caries; Edentulism; Partial edentulism, unspecified edentulism class from Last 3 Months Social History Tobacco [...] Care Team (Late st Contact Info) Description 07/30/2025 1:00 PM EST Office Visit [facility] ADULT [facility] [address] [place] [address] Mireya Cole Health Maintenance Due Date Last [...] caries Edentulism Partial edentulism, unspecified edentulism class INTRAORAL - COMPLETE SERIES OF RADIOGRAPHIC IMAGES Routine 07/25/2024 2:00 PM EST Dental caries Periodontal disease from Last 3 Months or Most Recently Relevant to Health Maintenance Insurance [facility] MEDICAID STAND ADULT
--- OUTSIDE RECORDS SUMMARY | 2025-02-20 15:03 | XMS_ITS | Clinical Summary ---
Author Organization [facility] Address [address] [place] [phone] Phone Care Team Providers Care Counter Pocket Trimmer Name Role Phone Cruz Navas Primary Care Provider + Allergies Active Allergy Reactions Criticality Noted Date Comments Iodinated Contrast Media Anaphylaxis High 08/10/2022 January 01, 2022 Latex Hives 08/21/2015 Medications albuterol sulfate (PROAIR RESPICLICK) 90 mcg/actuation AePB Inhale into the lungs. Active amLODIPine (NORVASC) 5 MG tablet 3 Active atorvastatin (LIPITOR) 20 MG tablet Take 20 mg by mouth every evening. Active FREESTYLE PEDRO LUIS 2 SENSOR kit DIRECTED EVERY 2 WEEKS 3 Active insulin lispro (ADMELOG, HUMALOG) 100 unit/mL injection pen 2 Active LANTUS SOLOSTAR U-100 INSULIN 100 unit/mL (3 mL) InPn injection pen INJECT 47 UNIT (0.47 ML) SUBCUTANEOUSLY EVERY EVENING FOR 30 DAYS 2 Active oxyCODONE 5 MG immediate release tablet TAKE 1 TABLET BY MOUTH EVERY 8 HOURS NEEDED FOR PAIN FOR 5 DAYS 2 Active BD ULTRA-FINE LUZ PEN NEEDLE 32 gauge x 5/32 Ndle 3 Active Active Problems Problem Noted Date Diagnosed Date Hyperlipidemia 08/10/2022 Neutrophilia 05/21/2020 Hirsutism 03/27/2020 Incisional hernia 12/19/2019 Fatty liver 12/11/2019 Asthma-COPD overlap syndrome 01/23/2019 Mediastinal lymphadenopathy 01/23/2019 Pulmonary nodules 01/23/2019 Hidradenitis 12/14/2018 Obesity (BMI 30-39.9) 08/01/2018 Snoring 06/29/2018 Overview (08/10/2022): 05/2018 Home Sleep Study did not reveal sleep apnea. Type 2 diabetes mellitus 04/26/2018 Vitamin D deficiency 04/26/2018 Anxiety 12/11/2015 Umbilical hernia 09/29/2015 Overview (08/10/2022): s/p repair PTSD (post-traumatic stress disorder) 08/21/2015 Tobacco use disorder 08/21/2015 Social History Tobacco Use Types Packs/Day Years Used Date Smoking Tobacco: Every Day Cigarettes 0.5 33.6 Started: 1991 Passive Smoke Exposure: Current Tobacco Cessation:Ready to Q uit: Not Asked; Counseling Given: Not Answered Education Answer Date Recorded Are you interested in more education? Not on lizandro e 11/19/2022 Are you concerned about learning? Not on file 11/19/2022 No 11/19/2022 No 11/19/2022 Digital Access Answer Date Recorded No 12/20/2022 No 12/20/2022 Reliable internet access at home? Not on file 12/20/2022 Device with a working camera? Not on file Comments Unknown Sex and Gender Information Value Date Recorded Sex Assigned at Female 06/30/2022 1:02 PM EST Legal Sex Female 12:50 PM EST Gender Identity Female 06/30/2022 1:02 PM EST Sexual Orientation Straight 06/30/2022 1: 02 PM EST Last Filed Vital Signs Vital Sign Reading Time Taken Comments Blood Pressure 136/83 08/10/2022 11:09 AM EST Pulse 85 08/10/2022 11:09 AM EST Temperature - - Respiratory Rate 18 08/10/2022 11:09 AM EST Oxygen Saturation 98% 08/10/2022 11:09 AM EST Inhaled Oxygen Concentration - - Weight 96.6 kg (213 lb) 09/21/2023 1:40 PM EST Height 165.1 cm (5' 5 ) 08/10/2022 11:09 AM EST Body Mass Index 35.45 08/10/2022 11:09 AM EST Plan of Treatment Health Maintenance Due Date Last Done Comments HEMOGLOBIN A1C 1976 DEPRESSION SCREENING 1988 SMOKING Hx and SMOKELESS TOB ACCO SCREENING 1989 HEPATITIS C SCREENING 1994 HIV ONE-TIME SCREENING (18-6 5 YEARS) 1994 PNEUMOCOCCAL VACCINES (0-49 years) (1 of 2 - PCV) 1995 PAP SMEAR 1997 MAMMOGRAM 2016 COLOGUARD 2021 COLONOSCOPY 2021 COLORECTAL CANCER SCREENING 2021 FIT TEST 2021 FOBT 2021 SIGMOIDOSCOPY 2021 VIRTUAL COLONOSCOPY 2021 DIABETIC EYE EXAM 08/10/2022 URINE MICROALBUMIN/CREATININ E RATIO 08/10/2022 BLOOD PRESSURE 02/07/2023 08/10/2022 COVID-19 VACCINE (2023-2 5 season) 2024 Adult Td,Tdap Booster 12/10/2025 12/11/2015 HEPATITIS A VACCINES Aged Out No long er eligible based on patient's age to complete this topic HIB VACCINES Aged Out No longer eligi ble based on patient's age to complete this topic MENINGOCOCCAL VACCINES (ACWY) Aged Out No longer eligible based on patient's age to complete this topic MENINGOCOCCAL VACCINES (B) Aged Out N o longer eligible based on patient's age to complete this topic Medical Devices Not on file Insurance [place] [address] [place] [address] ACO ACO [facility] ACO Care Teams Counter Pocket Trimmer Relationship Specialty Start Date End Date Cruz Navas PA [address] [place] [phone] PCP - General 06/30/22 Additional Source Comments The information contained in this document represents components of the legal health record. It is not the complete legal health record.[facility]
== END 2025-02-20 14:59 | disposition home or self-care (01) ==
LOC: HO.LAB 14:58
PROVIDERS: PCP Physician Assistant; Visit Provider Nurse Practitioner Family
DX: Z01.84 Encounter for antibody response examination (principal); R05.3 Chronic cough; Z91.09 Other allergy status, other than to drugs and biological substances
CPT/HCPCS: 71046; 82785; 86331

== ENCOUNTER → 2025-02-20 15:03 | Outpatient (BNV) | payer OTHER, SELFPAY | PROVIDERS: PCP Physician Assistant; Visit Provider Radiology Diagnostic Radiology | DX: R05.3 Chronic cough (principal) | CPT/HCPCS: 71046 ==

== ENCOUNTER 2025-02-27 08:09 | Outpatient (AMB) | payer OTHER, SELFPAY ==
--- NOTE | 2025-02-27 08:10 | MHC.OFFVIS ---
Intake Visit Reasons: TV ultra sound follow up Allergies latex (LATEX) Allergy (Mild, Verified 01/20/25 13:43) RASH Iodinated Contrast Media (IV Contrast Dye) Allergy (Verified 01/20/25 13:43) Anaphylaxis amoxicillin Adverse Reaction (Unknown, Verified 01/20/25 13:43) vaginal infection dulaglutide (From Trulicity) Adverse Reaction (Unknown, Verified 01/20/25 13:43) vomitting, nausea semaglutide (From Ozempic) Adverse Reaction (Unknown, Verified 01/20/25 13:43) Chest pain, vomitting oral contrast Allergy (Severe, Uncoded 01/20/25 14:06) Anaphylaxis HPI Comments Details: The patient scheduled a telehealth visit follow-up on a previously identified right complex ovarian cyst possible hemorrhagic versus corpus luteum cyst on pelvic ultrasound done in 12/15, repeat ultrasound in 01/2500 with the following: Uterus: The uterus is normal in size, measuring 11.0 x 5.3 x 5.3 cm. Myometrium has a normal echotexture. There is an anterior fibroid measuring 1.4 x 1.1 x 1.3 cm (previously 1.8 x 1.3 x 1.6 cm). Endometrium: The endometrial stripe measures 11 mm in thickness. There is fluid in the cervix. Right ovary: The right ovary measures 4.1 x 2.7 x 3.3 cm. There is a 2.1 x 1.6 x 1.8 cm hypoechoic, structure in the right ovary which may represent a cyst, although evaluation is limited. Left ovary: The left ovary measures 2.8 x 1.5 x 2.0 cm. The left ovary is normal in size and echotexture. Pelvic fluid: none. The patient thought about different options of treatment from previous visit and would like to discuss options of treatment 1 more time The following workup was done.: H&H= 13/37.9 TSH, hCG, GC and chlamydia were negative. FSH/LH 15.4/5.1 Endometrial biopsy pathology showed the following: Endometrium, biopsy: - Superficial fragments of early secretory endometrium; no atypia or hyperplasia identified. - Few fragments of endocervical epithelium within normal limits. - No atypia identified Co testing was done in 01/12 was negative. Mammogram ordered but not scheduled yet [facility] Medical History Hordeolum externum of right eye Itching Obesity (BMI 30-39.9) Sepsis Diverticulitis of both large and small intestine with perforation and abscess Diverticulitis of large intestine with abscess Morbid obesity with BMI of 50.0-59.9, adult Hypertension Vitamin D deficiency B12 deficiency Diabetic nephropathy associated with type 2 diabetes mellitus Dyslipidemia Hirsutism Diabetes type 2, uncontrolled Surgical History Hx of abdominal surgery Hx of umbilical hernia repair History of ankle surgery Hx of section Family History Father Throat cancer Cirrhosis Mother Diabetes Sister History of hysterectomy Social History Household Members: None Housing: House Do you presently have visiting nurse or other home services: Yes Alcohol intake: former Patient Tobacco Use Status: Current everyday Tobacco user Tobacco use type: Cigarette Cigarette Packs Per Day: 0.5 Cigarettes Per Day: 1 Years Smoked: 30 e-Cigarette/Vaping Use: Never Used Second Hand Smoke Exposure: Yes Substance Use Type: Marijuana Advance Directives Date on File: 05/05/21 service: No Current occupational status: disabled Cognitive needs: No Hearing needs: No Vision needs: Yes Review of Systems Const All systems reviewed & are unremarkable except as noted in HPI and below Reports as per HPI and Reports no additional complaints GI Reports no additional complaints Reports no additional complaints Telehealth Telehealth Telehealth Platform: Telephone Location of provider rendering services: practice address Location of patient: address on file Patient Identification confirmed using: Name, : Yes Telehealth method: video Patient verbally consented to treatment: Yes Patient verbally consented to billing insurance company: Yes Patient informed of any privacy concerns related to visit: Yes Minutes spent on Phone/Video with Pt.: 9 Assessment & Plan Assessment & Plan (1) Ovarian cyst: Code(s): N83.209 - Unspecified ovarian cyst, unspecified side Category: Medical Plan: Discussed with the patient the results of the ultrasound, recommended repeat pelvic ultrasound to follow-up on the previously seen ovarian cyst. Instructions given the patient to schedule ultrasound follow-up appointment. (2) Abnormal uterine bleeding (AUB): Code(s): N93.9 - Abnormal uterine and vaginal bleeding, unspecified Category: Medical Plan: Instructions given to patient to schedule mammogram, previous ordered. Discussed with the patient the results of the work up done and options of treatment including Lysteda, control pills, Mirena IUD, endometrial ablation and hysterectomy. All pros, cons, risks and benefits if each option was discussed with the patient and the patient decided to go ahead with Mirena IUD so a more detailed discussion about it was conducted including mechanism of action, risks (uterine perforation, infection, injury to bladder, bowel, displacement, and others) benefits (hypo menorrhea, amenorrhea, ...). GC/CT were taken and the patient was instructed to schedule Mirena IUD insertion on day 1-5 of next cycle . All questions answered, the patient verbalized understanding I spent a total of 20 minutes reviewing the chart, talking to the patient via video and documenting in the medical record. Orders: Orders US pelvic and transvaginal Today N83.209 - Unspecified ovarian cyst, unspecified side MR pelvis wo/w con Today N83.299 - Other ovarian cyst, unspecified side Coding Level of Care Code Tele Est Pt Level 3 (74391) Diagnoses Ovarian cyst N83.209 Abnormal uterine bleeding (AUB) N93.9
--- OUTSIDE RECORDS SUMMARY | 2025-02-27 08:13 | XMS_ITS | Clinical Summary ---
Author Organization [facility] Address [address] [place] [address] Care Team Providers Care Biomedical Repair Technician Name Role Phone Diogo Wright MD Primary Care Provider [phone] Allergies Active Allergy Reactions Criticality Noted Date [...] age to complete this topic Care Teams Biomedical Repair Technician Relationship Specialty Start Date End Date Diogo Wright MD PCP - General Internal Medicine 03/12/21
--- OUTSIDE RECORDS SUMMARY | 2025-02-27 08:13 | XMS_ITS | Clinical Summary ---
Author Organization [employer] Address [address] [facility] [address] [place] [address] Care Team Providers Care Social Sciences Instructor Name Role Phone Unavailable Primary Care [...] Sodium Fluoride 1.1 % creamIndication s:Dental caries [place] teeth for 2 minutes, morning and night. [...] Description 01/23/2025 1:00 PM EDT Office Visit [facility] ADULT [facility] [address] [place] [phone] Mireya Cole Dental calculus (Primary Dx); Dental [...] Description 07/30/2025 1:00 PM EST Office Visit [facility] [address] [place] [address] Mireya Cole Health Maintenance Due Date Last [...]
--- OUTSIDE RECORDS SUMMARY | 2025-02-27 08:14 | XMS_ITS | Clinical Summary ---
Author Organization [facility] Address [address] [place] [phone] Phone Care Team Providers Care City Alderman Name Role Phone Curz Navas Primary Care Provider + Allergies Active [...] topic Medical Devices Not on file Insurance [address] [address] [address] ACO ACO [facility] ACO Care Teams City Alderman Relationship Specialty Start Date End Date Cruz Navas PA [address] [place] [phone] PCP - General 06/30/22 Additional Source Comments The information contained in this document represents components of the legal health record. It is not the complete legal health record.[facility]
--- OUTSIDE RECORDS SUMMARY | 2025-02-27 08:14 | XMS_ITS | Clinical Summary ---
Author Organization [facility] Address [address] [place] [address] Care Team Providers Care Sugar Mixer Name Role Phone Diogo Wright MD Primary Care Provider [phone] Allergies Active Allergy Reactions Criticality Noted Date [...] 12/19/2019 Fatty liver 12/11/2019 Asthma-COPD overlap syndrome ([facility] V24, [facility]/ CC V28) 01/23/2019 Mediastinal lymphadenopathy 01/23/2019 Pulmonary nodules 01/23/2019 Hidradenitis 12/14/2018 Obesity (BMI 30-39.9) 08/01/2018 Snoring 06/29/2018 Overview (07/22/2024): 05/2018 Home Sleep Study did not reveal sleep apnea. Type 2 diabetes mellitus ([facility] V24, [facility] V 28) 04/26/2018 Vitamin [...] s/p repair Anxiety 12/11/2015 DX:Anxiety Emphysema, unspecified ([facility] V24, [facility] V28) 01/06 DX:Emphysema, unspecified (H CC); COMMENT: per patient Obesity DX:Obesity COPD (chronic obstructive pu lmonary disease) ([facility] V24, [facility] V28) DX:COPD (chronic o bstructive pulmonary disease) ([facility]) Tobacco abuse DX:Tobacco abuse Type 2 diabetes mellitus ( S/[facility] V24, [facility] V28) DX:Type 2 diabetes mellitus ([facility]) Vitamin D deficiency DX:Vitamin D deficiency Anxiety DX:Anxiety Hyperlipidemia DX:Hyperlipidemi a Family History Medical History Relation Name Comments Breast cancer Aunt paternal ?age Suicide Attempts Brother x 1 Throat cancer Father (+smoker), BLENDER HELPER D, HTN, liver transplant Heart failure Maternal [...] Results * Urine Albumin Creatinine Ratio (03/27/2020) [facility] Urine Albumin Creatinine Ratio abstracted Result [facility] [place] Final Result * Annual BMP Blood Test (03/27/2020) [facility] Annual BMP Blood Test abstracted Result [facility] Final Result * (ABNORMAL) Hemoglobin A1c (03/27/2020) [facility] Hemoglobin A1C 7.2(A) <=6.5 % Blood Venous blood specimen / Unknown Result [facility]LO[facility] ORDERABLES Celsa l Result * (ABNORMAL) Lipid panel (03/27/2020) [facility] LDL/HDL Ratio 9(A) 0 - 4 Triglycerides 388(A) 0 - 150 mg/dL Cholesterol 285(A) 0 - 200 mg/dL HDL 31(A) >=40 mg/dL LDL Cholesterol 177(A) 0 - 100 mg/dL Blood Venous blood specimen / Unknown Result [facility]LO[facility] ORDER[facility] Celsa l Result * HIV Screening (08/23/2018) [facility] HIV Screening abstracted Result [facility] Final Result * Hepatitis C Screening (08/23/2018) [facility] Hepatitis C Screening abstracted Result [facility] Final Result * Cervical Cancer Screening: HPV (02/09/2016) [facility] Cervical Cancer Screening: HPV negative, abstracted Result [facility] Final Result from Last 3 Months or Most Recently Relevant to Health Maintenance Care Teams Sugar Mixer Relationship Specialty Start Date End Date Diogo Wright MD PCP - General Internal Medicine 03/12/21
== END 2025-02-27 08:38 | disposition home or self-care (01) ==
LOC: HO.HWS 08:09
PROVIDERS: PCP Physician Assistant; Visit Provider Obstetrics & Gynecology
DX: N83.209 Unspecified ovarian cyst, unspecified side (principal); N93.9 Abnormal uterine and vaginal bleeding, unspecified
CPT/HCPCS: 99213

== ENCOUNTER 2025-04-08 10:50 | Outpatient (REF) | payer OTHER, SELFPAY ==
--- NOTE | ~2025-04-08 | US_ITS ---
EXAMINATION: US PELVIS TRANSABDOMINAL AND TRANSVAGINAL HISTORY: N83.209 - Unspecified ovarian cyst, unspecified side COMPARISON: Comparison is made with the prior examination dated 02/06/2025. TECHNIQUE: Transabdominal and endovaginal real-time 2D mcarthur-scale ultrasound was performed. FINDINGS: Uterus: The uterus is normal in size, measuring 9.0 x 4.8 x 6.5 cm. Myometrium has a normal echotexture. The previously seen fibroid is not identified on the current examination. Endometrium: The endometrial stripe measures 6 mm in thickness. Right ovary: The right ovary measures 2.7 x 2.0 x 2.4 cm. A hypoechoic structure is seen measuring 1.6 x 1.3 x 1.2 cm (previously 2.1 x 1.6 x 1.8 cm). Left ovary: The left ovary measures 2.6 x 1.5 x 1.7 cm. The left ovary is normal in size and echotexture. Pelvic fluid: none. US/US pelvic and transvaginal IMPRESSION: 1. Interval decrease in size of the previously noted hypoechoic structure in the right ovary, now measuring 1.6 x 1.3 x 1.2 cm. Continued follow-up is recommended to document resolution. 2. The previously seen uterine fibroid is not identified. Electronically signed by: Kahlil Nelson MD 04/08/2025 12:09 PM EDT
--- OUTSIDE RECORDS SUMMARY | 2025-04-08 14:30 | XMS_ITS | Clinical Summary ---
Author Organization [facility] Address [address] [place] [phone] Phone Care Team Providers Care Flower Picker Name Role Phone Cruz Navas Primary Care [...] Date Smoking Tobacco: Every Day Cigarettes 0.5 33.7 Started: 1990 Passive Smoke Exposure: Current Tobacco [...] E RATIO 08/10/2022 BLOOD PRESSURE 02/07/2023 08/10/2022 INFLUENZA VACCINE (#1) 2025 COVID-19 VACCINE ( - 2023-2 5 season) 2025 Adult Td,Tdap Booster 12/10/2025 12/11/2015 HEPATITIS A [...] topic Medical Devices Not on file [place] [address] [place] [address] [place] [address] [place] [address] [place] [address] [place] [address] [place] [address] [place] [address] ACO Care Teams Flower Picker Relationship Specialty Start Date End Date Cruz Navas PA [address] [place] [phone] PCP - General 06/30/22 Additional Source Comments The information contained in this document represents components of the legal health record. It is not the complete legal health record.[facility]
--- OUTSIDE RECORDS SUMMARY | 2025-04-08 14:30 | XMS_ITS | Clinical Summary ---
Author Organization [employer] Address [address] [place] [address] 7[address] [place] [address] Care Team Providers Care Manager User Experience Name Role Phone Unavailable Primary Care Provider [...] Sodium Fluoride 1.1 % creamIndication s:Dental caries [place] teeth for 2 minutes, morning and night. [...] Description 01/23/2025 1:00 PM EDT Office Visit [facility] AD[facility] [address] [place] [address] Mireya Cole Dental calculus (Primary Dx); Dental [...] Description 07/30/2025 1:00 PM EST Office Visit [facility] [address] [place] [address] Mireya Cole Health Maintenance Due Date Last [...]
--- OUTSIDE RECORDS SUMMARY | 2025-04-08 14:30 | XMS_ITS | Clinical Summary ---
Author Organization [facility] it Address [address] [place] [address] Care Team Providers Care Outsole Splicer Name Role Phone Diogo Wright MD Primary [...] liver 12/11/2019 Asthma-COPD overlap syndrome ([facility] V24, [facility]/ CC V28) 01/23/2019 Mediastinal lymphadenopathy 01/23/2019 Pulmonary nodules 01/23/2019 Hidradenitis 12/14/2018 Obesity (BMI 30-39.9) 08/01/2018 Snoring 06/29/2018 Overview (07/22/2024): 05/2018 Home Sleep Study did not reveal sleep apnea. Type 2 diabetes mellitus ([facility] V24, [facility] V 28) 04/26/2018 Vitamin D [...] s/p repair Anxiety 12/11/2015 DX:Anxiety Emphysema, unspecified ([facility] V24, [facility] V28) 01/06 DX:Emphysema, unspecified (H CC); COMMENT: per patient Obesity DX:Obesity COPD (chronic obstructive pu lmonary disease) ([facility] V24, [facility] V28) DX:COPD (chronic o bstructive pulmonary disease) ([facility]) Tobacco abuse DX:Tobacco abuse Type 2 diabetes mellitus ( S/[facility] V24, [facility] V28) DX:Type 2 diabetes mellitus ([facility]) Vitamin D deficiency DX:Vitamin D deficiency Anxiety DX:Anxiety Hyperlipidemia DX:Hyperlipidemi a Family History Medical History Relation Name Comments Breast cancer Aunt paternal ?age Suicide Attempts Brother x 1 Throat cancer Father (+smoker), PRESIDENT D, HTN, liver transplant Heart failure Maternal [...] Results * Urine Albumin Creatinine Ratio (03/27/2020) [facility] Urine Albumin Creatinine Ratio abstracted Result [facility] Final Result * Annual BMP Blood Test (03/27/2020) [facility] Annual BMP Blood Test abstracted Result [facility] Final Result * (ABNORMAL) Hemoglobin A1c (03/27/2020) [facility] Hemoglobin A1C 7.2(A) <=6.5 % Blood Venous blood specimen / Unknown Result [facility] [place]LOOD ORDERABLES Celsa l Result * (ABNORMAL) Lipid panel (03/27/2020) [facility] LDL/HDL Ratio 9(A) 0 - 4 Triglycerides 388(A) 0 - 150 mg/dL Cholesterol 285(A) 0 - 200 mg/dL HDL 31(A) >=40 mg/dL LDL Cholesterol 177(A) 0 - 100 mg/dL Blood Venous blood specimen / Unknown Result [facility] Celsa l Result * HIV Screening (08/23/2018) [facility] HIV Screening abstracted Result [facility] Final Result * Hepatitis C Screening (08/23/2018) [facility] Hepatitis C Screening abstracted Result [facility] Final Result * Cervical Cancer Screening: HPV (02/09/2016) [facility] Cervical Cancer Screening: HPV negative, abstracted Result [facility] Final Result from Last 3 Months or Most Recently Relevant to Health Maintenance Care Teams Outsole Splicer Relationship Specialty Start Date End Date Diogo Wright MD PCP - General Internal Medicine 03/12/21
== END 2025-04-08 10:51 | disposition home or self-care (01) ==
LOC: HO.US 10:50
PROVIDERS: PCP Physician Assistant; Visit Provider Obstetrics & Gynecology
DX: N83.209 Unspecified ovarian cyst, unspecified side (principal)
CPT/HCPCS: 76830; 76856

== ENCOUNTER → 2025-04-08 10:51 | Outpatient (BNV) | payer OTHER, SELFPAY | PROVIDERS: PCP Physician Assistant; Visit Provider Radiology Diagnostic Radiology | DX: N83.201 Unspecified ovarian cyst, right side (principal) | CPT/HCPCS: 76830; 76856 ==

== ENCOUNTER 2025-04-22 08:27 | Outpatient (REF) | payer OTHER, SELFPAY ==
[2025-04-23 09:43] LABS: CA-125 10 U/mL (<35)
== END 2025-04-22 08:28 | disposition home or self-care (01) ==
LOC: HO.LAB 08:27
PROVIDERS: PCP Physician Assistant; Visit Provider Obstetrics & Gynecology
DX: N83.201 Unspecified ovarian cyst, right side (principal)
CPT/HCPCS: 36415; 86304

== ENCOUNTER 2025-04-22 08:27 | Outpatient (AMB) | payer OTHER, SELFPAY ==
--- NOTE | 2025-04-22 08:28 | A.OFFVIS_ITS ---
Intake Visit Reasons: u/s follow up Allergies latex (LATEX) Allergy (Mild, Verified 01/20/25 13:43) RASH Iodinated Contrast Media (IV Contrast Dye) Allergy (Verified 01/20/25 13:43) Anaphylaxis amoxicillin Adverse Reaction (Unknown, Verified 01/20/25 13:43) vaginal infection dulaglutide (From Trulicity) Adverse Reaction (Unknown, Verified 01/20/25 13:43) vomitting, nausea semaglutide (From Ozempic) Adverse Reaction (Unknown, Verified 01/20/25 13:43) Chest pain, vomitting oral contrast Allergy (Severe, Uncoded 01/20/25 14:06) Anaphylaxis HPI Comments Details: The patient scheduled a telehealth visit for pelvic ultrasound follow-up regarding right ovarian cyst seen in 02/14. Repeat ultrasound on 04/08/2025 showed the following: Uterus: The uterus is normal in size, measuring 9.0 x 4.8 x 6.5 cm. Myometrium has a normal echotexture. The previously seen fibroid is not identified on the current examination. Endometrium: The endometrial stripe measures 6 mm in thickness. Right ovary: The right ovary measures 2.7 x 2.0 x 2.4 cm. A hypoechoic structure is seen measuring 1.6 x 1.3 x 1.2 cm (previously 2.1 x 1.6 x 1.8 cm). Left ovary: The left ovary measures 2.6 x 1.5 x 1.7 cm. The left ovary is normal in size and echotexture. Pelvic fluid: none. US/US pelvic and transvaginal IMPRESSION: 1. Interval decrease in size of the previously noted hypoechoic structure in the right ovary, now measuring 1.6 x 1.3 x 1.2 cm. Continued follow-up is recommended to document resolution. 2. The previously seen uterine fibroid is not identified. [facility] Medical History Hordeolum externum of right eye Itching Obesity (BMI 30-39.9) Sepsis Diverticulitis of both large and small intestine with perforation and abscess Diverticulitis of large intestine with abscess Morbid obesity with BMI of 50.0-59.9, adult Hypertension Vitamin D deficiency B12 deficiency Diabetic nephropathy associated with type 2 diabetes mellitus Dyslipidemia Hirsutism Diabetes type 2, uncontrolled Surgical History Hx of abdominal surgery Hx of umbilical hernia repair History of ankle surgery Hx of section Family History Father Throat cancer Cirrhosis Mother Diabetes Sister History of hysterectomy Social History Household Members: None Housing: House Do you presently have visiting nurse or other home services: Yes Alcohol intake: former Patient Tobacco Use Status: Current everyday Tobacco user Tobacco use type: Cigarette Cigarette Packs Per Day: 0.5 Cigarettes Per Day: 1 Years Smoked: 30 e-Cigarette/Vaping Use: Never Used Second Hand Smoke Exposure: Yes Substance Use Type: Marijuana Advance Directives Date on File: 05/05/21 service: No Current occupational status: disabled Cognitive needs: No Hearing needs: No Vision needs: Yes Review of Systems Const All systems reviewed & are unremarkable except as noted in HPI and below Reports as per HPI and Reports no additional complaints GI Reports no additional complaints Reports no additional complaints Telehealth Telehealth Telehealth Platform: [employer] Location of provider rendering services: practice address Location of patient: address on file Patient Identification confirmed using: Name, : Yes Telehealth method: video Patient verbally consented to treatment: Yes Patient verbally consented to billing insurance company: Yes Patient informed of any privacy concerns related to visit: Yes Minutes spent on Phone/Video with Pt.: 15 Assessment & Plan Assessment & Plan (1) Ovarian cyst: Comment: Right side persist Code(s): N83.209 - Unspecified ovarian cyst, unspecified side Category: Medical Plan: Discussed with the patient the results the ultrasound showing persistent of the right hypoechoic structure, possibly cyst . Discussed with the patient the options of treatment including expectant management versus laparoscopic ovarian cystectomy, the patient decided to proceed with 2nd opinion. Will refer to [facility] for further management. CA 125 ordered. Instructed the patient to call our office back in case a referral appointment is not scheduled, missed or canceled so that we will assist on rescheduling another appointment, the patient verbalized understanding agreed with the plan. I spent a total of 20 minutes reviewing the chart, talking to the patient via video and documenting in the medical record. Orders: Orders CA-125 Today N83.209 - Unspecified ovarian cyst, unspecified side Coding Level of Care Code Tele Est Pt Level 3 (28211) Diagnoses Ovarian cyst N83.209
--- OUTSIDE RECORDS SUMMARY | 2025-04-22 08:46 | XMS_ITS | Clinical Summary ---
Author Organization [facility] Address [address] [place] [id number] Phone Care Team Providers Care Application Security Consultant Name Role Phone Cruz Navas Primary Care [...] topic Medical Devices Not on file [place] [address] [address] [place] [address] [place] [address] [place] [address] [place] [address] [place] [place] [address] ACO Care Teams Application Security Consultant Relationship Specialty Start Date End Date Cruz Navas PA [address] [place] [id number] PCP - General 06/30/22 Additional Source Comments The information contained in this document represents components of the legal health record. It is not the complete legal health record.[facility]
--- OUTSIDE RECORDS SUMMARY | 2025-04-22 08:46 | XMS_ITS | Clinical Summary ---
Author Organization [facility] Address [address] [place] [address] Care Team Providers Care Factory Clerk Name Role Phone Diogo Wright MD Primary Care Provider [phone] Allergies Active Allergy Reactions Criticality Noted Date [...] age to complete this topic Care Teams Factory Clerk Relationship Specialty Start Date End Date Diogo Wright MD PCP - General Internal Medicine 03/12/21
--- OUTSIDE RECORDS SUMMARY | 2025-04-22 08:46 | XMS_ITS | Clinical Summary ---
Author Organization [employer] Address [address] [facility] [address] [place] [address] Care Team Providers Care Environmental Adviser Name Role Phone Unavailable Primary Care Provider [...] Sodium Fluoride 1.1 % creamIndication s:Dental caries [place] teeth for 2 minutes, morning and night. [...] 07/26/2024 Severe obesity (BMI 35.0-39.9) with comorbidity ([facility]) 07/26/2024 Disease due to severe acute respiratory syndrome coronavirus 2 (SARS-CoV-2) 03/14/2024 Overview (07/26/2024): Problem added by Discern Expert Abnormal auditory perception 12/29/2023 Bilateral temporomandibular joint pain Dizziness and giddiness 12/29/2023 Migraine without aura 12/29/2023 Otalgia of both ears 12/29/2023 Hyperlipidemia 08/10/2022 Neutrophilia 05/21/2020 Hirsutism 03/27/2020 Incisional hernia 12/19/2019 Fatty liver 12/11/2019 Asthma-COPD overlap syndrome ([facility]) 9 Mediastinal lymphadenopathy 01/23/2019 Pulmonary nodules 01/23/2019 Hidradenitis [...] Description 01/23/2025 1:00 PM EDT Office Visit [facility] [address] [place] [address] Mireya Cole Dental calculus (Primary Dx); Dental [...] Description 07/30/2025 1:00 PM EST Office Visit [facility] [address] [place] [address] Mireya Cole Health Maintenance Due Date Last [...] Most Recently Relevant to Health Maintenance [facility]
--- OUTSIDE RECORDS SUMMARY | 2025-04-22 08:46 | XMS_ITS | Clinical Summary ---
Author Organization [facility] Address [address] [place] [address] Care Team Providers Care Medical Records Coordinator Name Role Phone Diogo Wright MD Primary Care Provider [phone] Allergies Active Allergy Reactions Criticality Noted Date [...] Fatty liver 12/11/2019 Asthma-COPD overlap syndrome ([facility] V24, [facility] V28) 01/23/2019 Mediastinal lymphadenopathy 01/23/2019 Pulmonary nodules 01/23/2019 Hidradenitis 12/14/2018 Obesity (BMI 30-39.9) 08/01/2018 Snoring 06/29/2018 Overview (07/22/2024): 05/2018 Home Sleep Study did not reveal sleep apnea. Type 2 diabetes mellitus ([facility] V24, [facility] V 28) 04/26/2018 Vitamin D deficiency 04/26/2018 Anxiety 12/11/2015 Umbilical hernia 09/29/2015 Overview (07/22/2024): s/p repair PTSD (post-traumatic stress disorder) 08/21/2015 Tobacco use disorder 08/21/2015 Immunizations Immunization Administration Dates Next Due Tdap Tetanus diptheria [...] s/p repair Anxiety 12/11/2015 DX:Anxiety Emphysema, unspecified ([facility] V24, [facility] V28) 01/06 DX:Emphysema, unspecified ([facility]); COMMENT: per patient Obesity DX:Obesity COPD (chronic obstructive pu lmonary disease) ([facility] V24, [facility] V28) DX:COPD (chronic o bstructive pulmonary disease) ([facility]) Tobacco abuse DX:Tobacco abuse Type 2 diabetes mellitus ( S/[facility] V24, [facility] V28) DX:Type 2 diabetes mellitus ([facility]) Vitamin D deficiency DX:Vitamin D deficiency Anxiety DX:Anxiety Hyperlipidemia DX:Hyperlipidemi a Family History Medical History Relation Name Comments Breast cancer Aunt paternal ?age Suicide Attempts Brother x 1 Throat cancer Father (+smoker), AUTOMOTIVE TECHNICIAN INSTRUCTOR D, HTN, liver transplant Heart failure Maternal [...] Last Done Comments Breast Cancer Screening 1976 Colorectal Cancer Screening: Colonoscopy 1976 COVID-19 Vaccine (#1) 1981 Diabetes: Annual [...] Annual GFR (Glomerular Filtration Rate) 03/27/2021 03/27/2020 Social Influencers of Health Screening 06/26/2022 Diabetes: Annual Urine Albumin-Creatinine Ratio (uACR) 06/30/2022 03/27/2020 Diabetes: Blood Sugar Contro l Test (HGBA1C) 06/30/2022 03/27/2020 Depression Screening 07/24/2024 Influenza Vaccine (#1) 2025 Cholesterol Screening (Lipid Panel) 03/27/2025 03/27/2020 DTaP,Tdap,and Td Vaccines (2 - Td or Tdap) 12/10/2025 12/11/2015 RSV Immunization Adult Patients (1 - 1-dose 75+ series) 2051 HIV Screening Completed 08/23/2018 Hepatitis C Screening [...] Campus Urine Albumin Creatinine Ratio abstracted Result [facility] Final Result * Annual BMP Blood Test (03/27/2020) [facility] Annual BMP Blood Test abstracted Result [facility] Final Result * (ABNORMAL) Hemoglobin A1c (03/27/2020) [facility] Hemoglobin A1C 7.2(A) <=6.5 % Blood Venous blood specimen / Unknown Result [facility] Provider LAB BLOOD ORDERABLES Celsa l Result * (ABNORMAL) Lipid panel (03/27/2020) [facility] LDL/HDL Ratio 9(A) 0 - 4 Triglycerides 388(A) 0 - 150 mg/dL Cholesterol 285(A) 0 - 200 mg/dL HDL 31(A) >=40 mg/dL LDL Cholesterol 177(A) 0 - 100 mg/dL Blood Venous blood specimen / Unknown Result [facility] LAB BLOOD ORDERABLES Celsa l Result * HIV Screening (08/23/2018) [facility] HIV Screening abstracted Result [facility] Final Result * Hepatitis C Screening (08/23/2018) [facility] Hepatitis C Screening abstracted Result [facility] Final Result * Cervical Cancer Screening: HPV (02/09/2016) [facility] Cervical Cancer Screening: HPV negative, abstracted Result [facility] Final Result from Last 3 Months or Most Recently Relevant to Health Maintenance Care Teams Medical Records Coordinator Relationship Specialty Start Date End Date Diogo Wright MD PCP - General Internal Medicine 03/12/21
== END 2025-04-22 09:15 | disposition home or self-care (01) ==
LOC: HO.HWS 08:27
PROVIDERS: PCP Physician Assistant; Visit Provider Obstetrics & Gynecology
DX: N83.209 Unspecified ovarian cyst, unspecified side (principal)
CPT/HCPCS: 99213

== ENCOUNTER 2025-04-24 09:46 | Outpatient (AMB) | payer OTHER, SELFPAY ==
--- NOTE | 2025-04-24 09:52 | A.OFFVIS_ITS ---
Vital Signs 04/24/25 09:53 Height 5 ft 4 in Weight 229 lb 4.492 oz BMI 39.4 BP 130/76 Blood Pressure Location Rt brachial Position Sitting Pulse 96 Pulse Source Pulse Oximeter Pulse Oximetry (%) 98 Oxygen Delivery Method Room Air Intake Visit Reasons: DMT2 Follow-Up Intake Note: Patient presents today for a follow-up on Type 2 Diabetes Mellitus: Last Diabetic eye exam was on: 12/11/2024, [facility] Last Podiatry exam was on: Patient does not see a Wood Milling Machine Tender Most recent HbA1c: 13.9%, 04/24/2025 Random Glucose: 296 mg/dL Accompanied by: Other Relationship Allergies latex (LATEX) Allergy (Mild, Verified 04/24/25 10:00) RASH Iodinated Contrast Media (IV Contrast Dye) Allergy (Verified 04/24/25 10:00) Anaphylaxis amoxicillin Adverse Reaction (Unknown, Verified 04/24/25 10:00) vaginal infection dulaglutide (From Trulicity) Adverse Reaction (Unknown, Verified 04/24/25 10:00) vomitting, nausea semaglutide (From Ozempic) Adverse Reaction (Unknown, Verified 04/24/25 10:00) Chest pain, vomitting oral contrast Allergy (Severe, Uncoded 04/24/25 10:00) Anaphylaxis HPI Comments Details: Patient is a 48-year-old female with DM type 2 diagnosed who presents for management of diabetes. Past medical history: DM2, HTN, Hirsutism, dyslipidemia, vitamin d deficiency. Micro and macrovascular complications: Nephropathy Patient has multiple medical problems and biggest issue is frequent medication noncompliance. She gets overwhelmed by problems and multiple medications. Fortunately now she has a MATTING PRESS TENDER that is administering the grand majority of her insulin doses Diabetes medications: Lantus 40-60 units-told her today to take 50 everyday Lispro 15 units tid cc-increase to 20 tid cc today Actos 30mg daily Previous: Had dizziness with Trulicity. Intolerant of mounjaro. ozempic-cp, vomiting CGM, Freestyle Tiff 2 -high 90% very high 10% A1C today is 13.9% up from 8.9% in December Symptoms reported: numbness, tingling, cramping in lower extremities Hypoglycemia: No. drinks orange juice Hyperglycemia: denies urinary frequency, denies excessive thirst Optho: UTD Does not see podiatry ROS see HPI PHYSICAL EXAM: GENERAL: Alert and oriented x 3. NAD EYES: EOMI. Anicteric. HENT: Moist mucous membranes. No scleral icterus. No cervical lymphadenopathy. LUNGS: Clear to auscultation bilaterally. CARDIOVASCULAR: Regular rate and rhythm. No murmur. No JVD. ABDOMEN: Soft, +hernia EXTREMITIES: No edema. Non-tender. SKIN: No rashes or lesions. Warm. NEUROLOGIC: No focal neurological deficits. CN II-XII grossly intact PSYCHIATRIC: Cooperative. Appropriate mood and affect [facility] Medical History Hordeolum externum of right eye Itching Obesity (BMI 30-39.9) Sepsis Diverticulitis of both large and small intestine with perforation and abscess Diverticulitis of large intestine with abscess Morbid obesity with BMI of 50.0-59.9, adult Hypertension Vitamin D deficiency B12 deficiency Diabetic nephropathy associated with type 2 diabetes mellitus Dyslipidemia Hirsutism Diabetes type 2, uncontrolled Surgical History Hx of abdominal surgery Hx of umbilical hernia repair History of ankle surgery Hx of section Family History Father Throat cancer Cirrhosis Mother Diabetes Sister History of hysterectomy Social History Household Members: None Housing: House Do you presently have visiting nurse or other home services: Yes Alcohol intake: former Patient Tobacco Use Status: Current everyday Tobacco user Tobacco use type: Cigarette Cigarette Packs Per Day: 0.5 Cigarettes Per Day: 1 Years Smoked: 30 e-Cigarette/Vaping Use: Never Used Second Hand Smoke Exposure: Yes Substance Use Type: Marijuana Advance Directives Date on File: 05/05/21 service: No Current occupational status: disabled Cognitive needs: No Hearing needs: No Vision needs: Yes Physical Exam Vital Signs: BMI result Body Mass Index 39.4 Results AMB Hemoglobin A1c AMB Hemoglobin A1c 13.9 % Last Edit by LYNDSEY [place] on 04/24/25 10:1 0 Assessment & Plan Assessment & Plan (1) Diabetes type 2, uncontrolled: Code(s): E11.65 - Type 2 diabetes mellitus with hyperglycemia Category: Medical Qualifiers: Glycemic state: with hyperglycemia Qualified Code(s): E11.65 - Type 2 diabetes mellitus with hyperglycemia Plan 49 year old female presenting for diabetic follow up Unfortunately her A1C has increased drastically since December, now at 13.9%. She is in need of surgery and needs to lose weight and improve her glucose Lantus to 50 units daily, increase lispro to 20 unit with meals. I wouldnt usually start glipizide with insulin but I still suspect some insulin non compliance and so I would like to add it for extra coverage. I realize she has had tachycardia in the past, but she needs to lose weight. She told me their goal weight for surgery is 180 lbs. I have ordered her phentermine with the strict instruction that if she experiences any tachycardia or palpitations to stop the medication She will follow up in one month or sooner as needed Orders: Orders AMB Hemoglobin A1c Today E11.9 - Type 2 diabetes mellitus without complications, Z79.4 - intermediate designer (current) use of insulin Medications: New glipizide ER 10 mg PO DAILY 90 tabs 3RF phentermine must administer 30 minutes before or 1-2 hours after breakfast [id number] [facility] GroupGDRX Member [id number] 37.5 mg PO DAILY 30 caps 3RF FreeStyle Tiff 3 Plus Sensor (blood-glucose sensor) every 15 days 6 ea 3RF NS E11.65 - Type 2 diabetes mellitus with hyperglycemia FreeStyle Tiff 3 [place] (blood-glucose,grades 1 thru 6 visiting teacher,cont) As directed 1 ea 0RF NS E11.65 - Type 2 diabetes mellitus with hyperglycemia Changed From pioglitazone 15 mg (1/2 x 30 mg) PO DAILY 90 tabs 3RF To pioglitazone 30 mg PO DAILY 90 tabs 3RF From insulin glargine (Lantus Solostar U-100 Insulin) 20 units (0.2 mL) subcut BEDTIME 30 mL 5RF To insulin glargine (Lantus Solostar U-100 Insulin) 50 units (0.5 mL) subcut BEDTIME 45 mL 5RF 90 days From insulin lispro Max 90 units/24 hours 20 - 30 units (0.2 - 0.3 mL) subcut TID 90 days 45 mL 3RF E11.65 - Type 2 diabetes mellitus with hyperglycemia, E11.9 - Type 2 diabetes mellitus without complications, Z79.4 - [facility] (current) use of insulin To insulin lispro Max 60 units/24 hours 20 units (0.2 mL) subcut TID 54 mL 3RF 90 days E11.65 - Type 2 diabetes mellitus with hyperglycemia, E11.9 - Type 2 diabetes mellitus without complications, Z79.4 - intermediate designer (current) use of insulin Coding Level of Care Code Est Pt Level 4 (46256) Diagnoses Uncontrolled type 2 diabetes mellitus with hyperglycemia E11.65 Glycemic state: with hyperglycemia
[2025-04-24 09:53] VITALS: BP 130/76; PULSE 96; O2SAT 98; BMI 39.4
[2025-04-24 10:03] LABS: Glucose, Whole Blood 296 mg/dL (60-115)
--- OUTSIDE RECORDS SUMMARY | 2025-04-24 10:58 | XMS_ITS | Clinical Summary ---
[facility] Organization [facility] Address [address] [place] [address] Care Team Providers Care Business Development Assistant Name Role Phone Diogo Wright MD Primary Care Provider [phone] Allergies Active Allergy Reactions Criticality Noted Date [...] age to complete this topic Care Teams Business Development Assistant Relationship Specialty Start Date End Date Diogo Wright MD PCP - General Internal Medicine 03/12/21
--- OUTSIDE RECORDS SUMMARY | 2025-04-24 10:58 | XMS_ITS | Clinical Summary ---
Author Organization [employer] Address [address] [place] [address] [address] [place] [address] Care Team Providers Care Account Manager Sales Representative Name Role Phone Unavailable Primary Care Provider [...] Sodium Fluoride 1.1 % creamIndication s:Dental caries [place] teeth for 2 minutes, morning and night. [...] 07/26/2024 Severe obesity (BMI 35.0-39.9) with comorbidity ([facility]) 07/26/2024 Disease due to severe acute respiratory syndrome coronavirus 2 (SARS-CoV-2) 03/14/2024 Overview (07/26/2024): Problem added by Discern Expert Abnormal auditory perception 12/29/2023 Bilateral temporomandibular joint pain Dizziness and giddiness 12/29/2023 Migraine without aura 12/29/2023 Otalgia of both ears 12/29/2023 Hyperlipidemia 08/10/2022 Neutrophilia 05/21/2020 Hirsutism 03/27/2020 Incisional hernia 12/19/2019 Fatty liver 12/11/2019 Asthma-COPD overlap syndrome ([facility]) 9 Mediastinal lymphadenopathy 01/23/2019 Pulmonary nodules 01/23/2019 [...] Description 01/23/2025 1:00 PM EDT Office Visit [facility] [address] [place] [address] Mireya Cole Dental calculus (Primary Dx); Dental [...] Description 07/30/2025 1:00 PM EST Office Visit [facility] [address] [place] [address] Mireya Cole Health Maintenance Due Date Last [...] Most Recently Relevant to Health Maintenance [facility]
--- OUTSIDE RECORDS SUMMARY | 2025-04-24 10:58 | XMS_ITS | Clinical Summary ---
Author Organization [facility] it Address [address] [place] [address] Care Team Providers Care Helper/Driver Name Role Phone Diogo Wright MD Primary Care Provider [phone] Allergies Active Allergy Reactions Criticality Noted Date [...] 12/19/2019 Fatty liver 12/11/2019 Asthma-COPD overlap syndrome ([facility] V24, [facility] V28) 01/23/2019 Mediastinal lymphadenopathy 01/23/2019 Pulmonary nodules 01/23/2019 Hidradenitis 12/14/2018 Obesity (BMI 30-39.9) 08/01/2018 Snoring 06/29/2018 Overview (07/22/2024): 05/2018 Home Sleep Study did not reveal sleep apnea. Type 2 diabetes mellitus ([facility] V24, [facility] V 28) 04/26/2018 Vitamin D [...] s/p repair Anxiety 12/11/2015 DX:Anxiety Emphysema, unspecified ([facility] V24, [facility] [place]) 01/06 DX:Emphysema, unspecified ([facility]); COMMENT: per patient Obesity DX:Obesity COPD (chronic obstructive pu lmonary disease) ([facility] [place], [facility] V28) DX:COPD (chronic o bstructive pulmonary disease) ([facility]) Tobacco abuse DX:Tobacco abuse Type 2 diabetes mellitus ( S/[facility] V24, [facility] V28) DX:Type 2 diabetes mellitus ([facility]) Vitamin D deficiency DX:Vitamin D deficiency Anxiety DX:Anxiety Hyperlipidemia DX:Hyperlipidemi a Family History Medical History Relation Name Comments Breast cancer Aunt paternal ?age Suicide Attempts Brother x 1 Throat cancer Father (+smoker), HEALTH AND WELLNESS ADVISOR D, HTN, liver transplant Heart failure Maternal [...] Results * Urine Albumin Creatinine Ratio (03/27/2020) [facility] Urine Albumin Creatinine Ratio abstracted Result [facility] MAINTENANCE Final Result * Annual BMP Blood Test (03/27/2020) [facility] Annual BMP Blood Test abstracted Result [facility]INTENANCE Final Result * (ABNORMAL) Hemoglobin A1c (03/27/2020) [facility] Hemoglobin A1C 7.2(A) <=6.5 % Blood Venous blood specimen / Unknown Result [facility] Provider LAB BLOOD ORDERABLES Celsa l Result * (ABNORMAL) Lipid panel (03/27/2020) [facility] LDL/HDL Ratio 9(A) 0 - 4 Triglycerides 388(A) 0 - 150 mg/dL Cholesterol 285(A) 0 - 200 mg/dL HDL 31(A) >=40 mg/dL LDL Cholesterol 177(A) 0 - 100 mg/dL Blood Venous blood specimen / Unknown Result [facility] LAB BLOOD ORDERABLES Celsa l Result * HIV Screening (08/23/2018) [facility] HIV Screening abstracted Result [facility]TENA[facility] Final Result * Hepatitis C Screening (08/23/2018) [facility] Hepatitis C Screening abstracted Result [facility]TE[facility] Final Result * Cervical Cancer Screening: HPV (02/09/2016) [facility] Cervical Cancer Screening: HPV negative, abstracted Result [facility]TE[facility]CE Final Result from Last 3 Months or Most Recently Relevant to Health Maintenance Care Teams Helper/Driver Relationship Specialty Start Date End Date Diogo Wright MD PCP - General Internal Medicine 03/12/21
--- OUTSIDE RECORDS SUMMARY | 2025-04-24 10:58 | XMS_ITS | Data Portability ---
Author Organization [facility], Allergy Address [address] [address] Assessment Encounter Date Assessment Date Assessment LastModified [...] disequilibrium is coming from an otologic source. [email or web address] Not available 12/29/2023 16:52:35 Plan of Treatment Reminders Order Date Submit Date Provider Last Modified By Organization Details Last Modified Time Details Appointments None recorded. Lab None recorded. Referral neurologist referral 2023 024 [email or web address] 2 [facility] Scheduling, [address] [place], [address], 4 10:41:05 Procedures None recorded. Surgeries None [...] Organization Details Recorded Time Abnormal auditory perception 48898605 Active 2023 Savannah chicas [place] - [facility] 4 16:32:03 Migraine without aura 48664556 Active 2023 JUNIE RICH PA-C [address] [place] [address],[place] [address], [place], [address], [facility] - [facility] 4 16:52:39 Dizziness and giddiness 290754165 Active 2023 JUNIE RICH PA-C [address] [place] [address],[place] [address], [place], [address], [facility] - [facility] 4 16:52:43 Bilateral earache 848673426 Active 2023 JUNIE RICH PA-C [address] [place] [address],[place] [address], [place], [address], [facility] - [facility] 4 16:52:54 Bilateral temporomand ibular joint pain [id number] 9105 Active 2023 JUNIE RICH PA-C [address] [place] [address], [address] [place] [address], [address], [facility] - [facility] 4 16:53:00 Problem Notes None recorded. Procedures Surgical History Date Name Laterality Status Provider Name and Address Organization Details Recorded Time Comp Audio with Tymps - 10035 & 16438 completed Savannah Goldsmith [place] - [facility] 12/29/2023 16:30:31 Cerumen removal without microscope left completed JUNIE RICH PA-C [address], [address], [facility] - [facility] 12/29/2023 14:56:07 Imaging Results None recorded. [...] Diagnosis SNOMED-CT Code Diagnosis ICD10 Code Diagnosis IMO Codes Diagnosis Note [id number] JUNIE RICH PA-C [facility] [address] [address] 12/29/2023 13:49:33 12/29/2023 16:39:20 Abnormal auditory perception 51684196 H93.299 Audiologic al evaluation results: Right ear: Normal hearing with excellent word recognitio n. Left ear: Normal hearing with excellent word recognitio n. Tympanomet ry: Right Ear:Type Ad Left Ear:Type Ad Migraine without aura 56 310457 G43.009 Dizziness and giddiness 978900850 R42 Bilateral earache 619126 003 H92.03 Bilateral temporomandibular joint pain [id number] 8989193 M26.623 Health Concerns Section Related Observation LastModified by Organization Detai ls LastModified Time None Recorded Concern Status LastModified by Organization Details LastModified Time None Recorded Advance Directives Directive None Recorded Payers Insurance Date Sequence Insurance Name Policy Number Policy Rodriguez Covered Member ID Rodriguez Member ID Guarantor Name 06/30/2024 1 [facility] - HEALTH NET PLAN (MEDICAID HMO) BURTON Quiñonez [id number] Mckenzie Quiñonez Notes Date Note Type Note Provider Name and Address Organization Details Recorded Time 12/29/2023 text/html ROS as noted in the HPI 48-year-old female presents for evaluation of ear pain and [...] them in several years. JUNIE RICH PA-C [address] [place] [address], [place], [address], [place] - [facility] 12/29/2023 16:53:54 OBGyn Episode No OBEpisode recorded.
--- OUTSIDE RECORDS SUMMARY | 2025-04-24 10:58 | XMS_ITS | Clinical Summary ---
Author Organization [facility] Address [address] [place] [address] Phone Care Team Providers Care Marketing Professor Name Role Phone Cruz Navas Primary Care [...] FOR 5 DAYS 2 Active BD ULTRA-FINE LZU PEN NEEDLE 32 gauge x 5/32 Ndle [...] Date Smoking Tobacco: Every Day Cigarettes 0.5 33.8 Started: 1991 Passive Smoke Exposure: Current Tobacco [...] topic Medical Devices Not on file Insurance [address] [place] [address] [place] [address] [place] [address] [place] [address] [employer] Care Teams Marketing Professor Relationship Specialty Start Date End Date Cruz Navas PA [address] [place] [address] PCP - General 06/30/22 Additional Source Comments The information contained in this document represents components of the legal health record. It is not the complete legal health record.[facility]
== END 2025-04-24 10:32 | disposition home or self-care (01) ==
LOC: HO.ENCR 09:47
PROVIDERS: PCP Physician Assistant; Visit Provider Internal Medicine
DX: E11.9 Type 2 diabetes mellitus without complications (principal); Z79.4 Long term (current) use of insulin; E11.65 Type 2 diabetes mellitus with hyperglycemia

== ENCOUNTER → 2025-04-24 09:46 | Outpatient (BNVA) | payer OTHER, SELFPAY | PROVIDERS: PCP Physician Assistant; Visit Provider Internal Medicine | DX: E11.65 Type 2 diabetes mellitus with hyperglycemia (principal); Z79.4 Long term (current) use of insulin | CPT/HCPCS: 82947; 83036; 99212 ==

== ENCOUNTER 2025-05-29 09:51 | Outpatient (AMB) | payer OTHER, SELFPAY ==
--- OUTSIDE RECORDS SUMMARY | 2025-05-23 22:59 | XMS_ITS | Continuity of Care Document ---
[facility] Organization [facility] Address [address] [place] [address], [address] [place] [address]- Care Team Providers Care Vibratory Pile Driver Name Role Phone Cruz Farooq Primary Care Physician [phone] Encounter [facility] Date(s): 04/23/25 - 05/23/25 [facility] [address], [address] [place] [address]- Encounter Type: Triage Allergies, Adverse Reactions, Alerts Substance Criticality Severity Reaction Reaction Severity Status Omnipaque 350 Anaphelaxis Acti ve Adhesive Bandage rash Act delfina Latex rash Active Contrast Dye Anaphelaxis Activ e Medications 10cm medipore tape 10cm medipore tape, See Instructions, # 4 each, Refills 1, Tot. Refills 1, Maintenance, use as needed for daily dressing changes. 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 Refills 1, Maintenance, use asneeded for daily dressing changes. 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 Refills 1, Maintenance, use with daily packing. 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 Refills 1, Maintenance, use 1 super sponge. Lightly pack abdomen wound daily. cover with sponge. 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 Refills 0, Maintenance, DIAGNOSIS: VENTRAL HERNIA Please custom fit patient for abdominal binder, 05/02/22 10:41:00 AM EDT, Supply Start Date: 05/02/22 Status: Ordered Medication Dispense Status: Completed Quantity: 2.0 Unit: each Total Allowed Fills: 1 Fills Dispensed: 0 acetaminophen 325 mg oral tablet 975 mg, 3, tablet, By Mouth, Every 6 hours, PRN, Refills 0, Maintenance, Pain , Mild, 08/03/21 3:16:00 PM EST, Partial fill upon patient request if the prescription is for a schedule II opioid drug. Start Date: 08/03/21 Status: Ordered Medication Dispense Status: Completed Total Allowed Fills: 1 Fills Dispensed: 0 Advair Diskus 250 mcg-50 mcg inhalation powder 1, inhalation, Inhalation, Daily, rinse mouth and throat after use, Refills 0, Maintenance, 06/14/21 1:10:00 AM EST, Powder Start Date: 06/14/21 Status: Ordered Medication Dispense Status: Completed Total Allowed Fills: 1 Fills Dispensed: 0 amLODIPine 5 mg oral tablet TAKE 1 TABLET BY MOUTH DAILY Start Date: 05/12/25 Status: Ordered Medication Dispense Status: Completed Total Allowed Fills: 1 Fills Dispensed: 0 aspirin 81 mg oral delayed release tablet 81 mg, 1, tablet, By Mouth, Daily, # 30 tablet, Refills 1, Tot. Refills 1, Maintenance, 09/21/22 2:52:00 PM EST, Route to Pharmacy Electronically, [facility], Partial fill upon patient request if the prescription is for a schedule II opioid drug., 165.1, cm, 07/04/22 10:47:00 EST, Height, 94.1, kg, 09/06/21 8:10:00 EST, Dry Weight Start Date: 09/21/22 Status: Ordered Medication Dispense Status: Completed Quantity: 30.0 Unit: tablet Total Allowed Fills: 2 Fills Dispensed: 0 atorvastatin 40 mg oral tablet TAKE 1 TABLET BY MOUTH AT BEDTIME (REPLACES SIMVASTATIN). Start Date: 05/12/25 Status: Ordered Medication Dispense Status: Completed Total Allowed Fills: 1 Fills Dispensed: 0 EpiPen 2-Josué 0.3 mg injectable kit = 0.3 mg, Intramuscular, Once, PRN Anaphylactic Reaction, # 1 pack/packet, 0 Refills, Soft Stop, 12/16/22 2:29:00 PM EDT, [facility], Partial fill upon patient request if the prescription is for a schedule II opioid drug., 165.1, cm, 12/16/22 9:45:00 EDT, Height, 92, kg, 12/16/22 9:45:00 EDT, Dry Weight Start Date: 12/16/22 Status: Ordered Medication Dispense Status: Completed Quantity: 1.0 Unit: pack/packet Total Allowed Fills: 1 Fills Dispensed: 0 glipiZIDE 10 mg oral tablet, extended release TAKE 1 TABLET BY MOUTH EVERY DAY Start Date: 05/12/25 Status: Ordered Medication Dispense Status: Completed Total Allowed Fills: 1 Fills Dispensed: 0 Insulin Glargine Prefilled Pen 100 units/mL subcutaneous solution See Instructions, INJECT 20 UNITS SUBCUTANEOUSLY AT BEDTIME Start Date: 08/11/24 Status: Ordered Medication Dispense Status: Completed Total Allowed Fills: 1 Fills Dispensed: 0 Insulin Lispro KwikPen 100 units/mL injectable solution INJECT 20 TO 30 UNITS SUBCUTANEOUSLY 3 TIMES A DAY (MAX 90 UNITS/DAY) Start Date: 05/12/25 Status: Ordered Medication Dispense Status: Completed Total Allowed Fills: 1 Fills Dispensed: 0 meclizine 25 mg oral tablet 1 tablet = 25 mg, By Mouth, 3 times a day, PRN for dizziness, # 30 tablet, 0 Refills, Maintenance, 08/11/24 2:08:00 PM EST, Tablet, Partial fill upon patient request if the prescription is for a schedule II opioid drug. Start Date: 08/11/24 Status: Ordered Medication Dispense Status: Completed Quantity: 30.0 Unit: tablet Total Allowed Fills: 1 Fills Dispensed: 0 Misc Rx 50,0000 units, By Mouth, Daily, Refills 0, Maintenance, vitamin d3, 07/12/21 9:32:00 AM EST, Supply Start Date: 07/12/21 Status: Ordered Medication Dispense Status: Completed Total Allowed Fills: 1 Fills Dispensed: 0 oxyCODONE 10 mg oral tablet 0 Refills, Maintenance, 08/22/24 1:34:00 PM EST, Partial fill upon patient request if the prescription is for a schedule II opioid drug. Start Date: 08/22/24 Status: Ordered Medication Dispense Status: Completed Total Allowed Fills: 1 Fills Dispensed: 0 Ozempic 8 mg/3 mL (2 mg dose) subcutaneous solution = 2 mg, Subcutaneous Injection, Every week, INJECT 1 PEN SUBCUTANEOUSLY EVERY WEEK Start Date: 08/11/24 Status: Ordered Medication Dispense Status: Completed Total Allowed Fills: 1 Fills Dispensed: 0 phentermine 37.5 mg oral capsule TAKE 1 CAPSULE BY MOUTH EVERY DAY TAKE 30 MINUTES BEFORE OR 1-2 HOURS AFTER BREAKFAST Start Date: 05/12/25 Status: Ordered Medication Dispense Status: Completed Total Allowed Fills: 1 Fills Dispensed: 0 pioglitazone 30 mg oral tablet 1 tablet = 30 mg, By Mouth, Daily, # 30 tablet, 0 Refills, Maintenance, 08/11/24 2:53:00 AM EST, Tablet, Partial fill upon patient request if the prescription is for a schedule II opioid drug. Start Date: 08/11/24 Status: Ordered Medication Dispense Status: Completed Quantity: 30.0 Unit: tablet Total Allowed Fills: 1 Fills Dispensed: 0 polymyxin B-trimethoprim ophthalmic 54705 u-1 mg/ml solution PUT 1 DROP INTO BOTH EYES 4 TIMES A DAY FOR 7 DAYS Start Date: 05/12/25 Status: Ordered Medication Dispense Status: Completed Total Allowed Fills: 1 Fills Dispensed: 0 PT eval and treat for vestibular rehab PT eval and treat for vestibular rehab, See Instructions, # 1 each, Refills 0, Tot. Refills 0, Maintenance, PT eval and treat for vestibular rehab, 08/11/24 2:08:00 PM EST, Compound Start Date: 08/11/24 Status: Ordered Medication Dispense Status: Completed Quantity: 1.0 Unit: each Total Allowed Fills: 1 Fills Dispensed: 0 Readi-Cat 2 Smoothie Pierre 2% oral suspension See Instructions, take one bottle 6hours before test and take second bottle 90minutes before test, # 2 each, 0 Refills, Maintenance, 12/20/24 12:06:00 PM EDT, [id number], Partial fill upon patient request if the prescription is for a schedule II opioid drug., take one bottle 6hours before test and take second bottle 90minutes before test, 165, cm, 12/10/24 10:03:00 EDT, Height, 94.6, kg, 08/11/24 2:37:00 EST, Dry Weight Start Date: 12/20/24 Status: Ordered Medication Dispense Status: Completed Quantity: 2.0 Unit: each Total Allowed Fills: 1 Fills Dispensed: 0 simvastatin 20 mg oral tablet TAKE 1 TABLET BY MOUTH EVERY DAY FOR 30 DAYS Start Date: 08/11/24 Status: Ordered Medication Dispense Status: Completed Total Allowed Fills: 1 Fills Dispensed: 0 super sponges super sponges, See Instructions, # 30 each, Refills 1, Tot. Refills 1, Maintenance, use as needed for daily dressing changes. 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 Refills 0, Maintenance, use as needed for daily dressing changes. 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, 08/26/21 10:44:00 AM EST, Compound Start Date: 08/26/21 Status: Ordered Medication Dispense Status: Completed Quantity: 30.0 Unit: each Total Allowed Fills: 1 Fills Dispensed: 0 Tresiba FlexTouch 200 units/mL subcutaneous solution INJECT 50 UNIT (0.25 ML) SUBCUTANEOUSLY BEDTIME FOR 90 DAYS Start Date: 05/12/25 Status: Ordered Medication Dispense Status: Completed Total Allowed Fills: 1 Fills Dispensed: 0 Ventolin HFA 108 mcg/inh inhalation aerosol with adapter 2 inhalation = 180 mcg, Inhalation, Every 4 hours, PRN as needed for shortness of breath or wheezing, # 6.7 Gm, 0 Refills, Maintenance, 08/11/24 7:35:00 AM EST, Aerosol, Partial fill upon patient request if the prescription is for a schedule II opioid drug. Start Date: 08/11/24 Status: Ordered Medication Dispense Status: Completed Quantity: 6.7 Unit: g Total Allowed Fills: 1 Fills Dispensed: 0 Walker with wheels Walker with wheels, See Instructions, # 1 each, Refills 0, Tot. Refills 0, Maintenance, Walker withwheels, 08/11/24 2:07:00 PM EST, Compound Start Date: 08/11/24 Status: Ordered Medication Dispense Status: Completed Quantity: 1.0 Unit: each Total Allowed Fills: 1 Fills Dispensed: 0 Problem List Condition Confirmation Course Effective Dates [...] more)/day in last 30 days entered on: 08/11/24 Sexual Orientation Self described orien tation: ; Straight or heterosexual Sex Female Sex Representation Female (finding) Patient Care team information Care Team Personnel Name: Rudy Huber RN Position: S RN Member Role: Primary Care Nurse Name: Hasmukh Buckner RN Position: S RN Member Role: Primary Care Nurse Name: Cruz Farooq Position: Reference Physician Member Role: PCP Address: [address] [place] [address] [address] [place] [address]- Telecom: Name: Kay Sewell RN Position: [facility] SN RN Member Role: Primary Care Nurse Name: Valentin Parish RN Position: [facility] RN Member Role: Primary Care Nurse Name: Ivet Curtis RN Position: S RN Member Role: Primary Care Nurse Name: Faviola Irvin RN Position: S RN Member Role: Primary Care Nurse Name: Jonathan Marquez RN Position: [facility] RN Member Role: Primary Care Nurse Name: Eugenia Pichardo RN Position: [facility] RN Member Role: Primary Care Nurse Name: Tayler Horn RN Position: [facility] RN Member Role: Primary Care Nurse Name: Francy Nava LPN Position: [facility] RN Member Role: Primary Care Nurse Care Team Related Persons Name: NICO FLORES Name: LIDIA VAZQUEZ Name: MONIQUE VERONICA Name: ELEN VERONICA Insurance Providers Guarantor name: [facility] Information #: 1 Payer: [employer] Payer Identifier: DARLYN Member Number: [id number] Group Number: [id number] Subscriber Identifier: DARLYN Relationship to Subscriber: self Coverage Type: NA Coverage Verification Date: DARLYN Telecom: Address:
--- NOTE | 2025-05-29 09:55 | A.OFFVIS_ITS ---
Vital Signs 05/29/25 09:57 Height 5 ft 4 in Weight 231 lb 7.766 oz BMI 39.7 BP 134/76 Blood Pressure Location Rt brachial Position Sitting Pulse 96 Pulse Source Pulse Oximeter Pulse Oximetry (%) 96 Oxygen Delivery Method Room Air Intake Visit Reasons: T2DM Intake Note: Patient presents today for a follow-up on Type 2 Diabetes Mellitus: Last Diabetic eye exam was on: 12/11/2024, [facility]. Last Podiatry exam was on: Patient does not see a Adjunct Mathematics Instructor Most recent HbA1c: 10.2%, 04/24/2025 Random Glucose: 221 mg/dL Child Nutrition Assistant Required: No Accompanied by: Self / Same As Patient Allergies latex (LATEX) Allergy (Mild, Verified 05/29/25 09:59) RASH Iodinated Contrast Media (IV Contrast Dye) Allergy (Verified 05/29/25 09:59) Anaphylaxis amoxicillin Adverse Reaction (Unknown, Verified 05/29/25 09:59) vaginal infection dulaglutide (From Trulicity) Adverse Reaction (Unknown, Verified 05/29/25 09:59) vomitting, nausea semaglutide (From Ozempic) Adverse Reaction (Unknown, Verified 05/29/25 09:59) Chest pain, vomitting oral contrast Allergy (Severe, Uncoded 05/29/25 09:59) Anaphylaxis HPI Comments Details: Patient is a 49-year-old female with DM type 2 diagnosed who presents for management of diabetes. Past medical history: DM2, HTN, Hirsutism, dyslipidemia, vitamin d deficiency. Micro and macrovascular complications: Nephropathy Patient has multiple medical problems and biggest issue is frequent medication noncompliance. She gets overwhelmed by problems and multiple medications. Fortunately now she has a MATERIAL PREPARATION WORKER that is administering the grand majority of her insulin doses Diabetes medications: Lantus 50 units daily Lispro 20 tid cc today Actos 30mg daily Glipizide 10mg daily Reports medication compliance Previous: Had dizziness with Trulicity. Intolerant of mounjaro. ozempic-cp, vomiting CGM, Freestyle Tiff 2 -TGT 13% high 60% very high 27%-GMI 9.6% A1C one month ago 13.9% up from 8.9% in December Symptoms reported: numbness, tingling, cramping in lower extremities Hypoglycemia: No. drinks orange juice Hyperglycemia: denies urinary frequency, denies excessive thirst Optho: UTD Does not see podiatry ROS see HPI PHYSICAL EXAM: GENERAL: Alert and oriented x 3. NAD EYES: EOMI. Anicteric. HENT: Moist mucous membranes. No scleral icterus. No cervical lymphadenopathy. LUNGS: Clear to auscultation bilaterally. CARDIOVASCULAR: Regular rate and rhythm. No murmur. No JVD. ABDOMEN: Soft, +hernia EXTREMITIES: No edema. Non-tender. SKIN: No rashes or lesions. Warm. NEUROLOGIC: No focal neurological deficits. CN II-XII grossly intact PSYCHIATRIC: Cooperative. Appropriate mood and affect [facility] Medical History Hordeolum externum of right eye Itching Obesity (BMI 30-39.9) Sepsis Diverticulitis of both large and small intestine with perforation and abscess Diverticulitis of large intestine with abscess Morbid obesity with BMI of 50.0-59.9, adult Hypertension Vitamin D deficiency B12 deficiency Diabetic nephropathy associated with type 2 diabetes mellitus Dyslipidemia Hirsutism Diabetes type 2, uncontrolled Surgical History Hx of abdominal surgery Hx of umbilical hernia repair History of ankle surgery Hx of section Family History Father Throat cancer Cirrhosis Mother Diabetes Sister History of hysterectomy Social History Household Members: None Housing: House Do you presently have visiting nurse or other home services: Yes Alcohol intake: former Patient Tobacco Use Status: Current everyday Tobacco user Tobacco use type: Cigarette Cigarette Packs Per Day: 0.5 Cigarettes Per Day: 1 Years Smoked: 30 e-Cigarette/Vaping Use: Never Used Second Hand Smoke Exposure: Yes Substance Use Type: Marijuana Advance Directives Date on File: 05/05/21 service: No Current occupational status: disabled Cognitive needs: No Hearing needs: No Vision needs: Yes Physical Exam Vital Signs: BMI result Body Mass Index 39.7 Assessment & Plan Assessment & Plan (1) Diabetes type 2, uncontrolled: Code(s): E11.65 - Type 2 diabetes mellitus with hyperglycemia Category: Medical Qualifiers: Glycemic state: with hyperglycemia Qualified Code(s): E11.65 - Type 2 diabetes mellitus with hyperglycemia Plan Type 2 diabetes uncontrolled Improving control since addition of glipizide and improved insulin compliance She has no hypoglycemia She will increase her tresiba to 60 units daily. Continue all other current medication doses She will follow up in one month or sooner as needed Discussed cessation of all juices and soda Medications: Changed From Tresiba FlexTouch U-200 (insulin degludec) 50 units (0.25 mL) subcut BEDTIME 90 days 22.5 mL 3RF NS To Tresiba FlexTouch U-200 (insulin degludec) 60 units (0.3 mL) subcut BEDTIME 27 mL 3RF 90 days NS Discontinued insulin glargine (Lantus Solostar U-100 Insulin) Discontinued Reason: Doctor's Order 50 units (0.5 mL) subcut BEDTIME 90 days 45 mL 5RF Coding Level of Care Code Est Pt Level 4 (74717) Diagnoses Uncontrolled type 2 diabetes mellitus with hyperglycemia E11.65 Glycemic state: with hyperglycemia
[2025-05-29 09:57] VITALS: BP 134/76; PULSE 96; O2SAT 96; BMI 39.7
[2025-05-29 10:14] LABS: Glucose, Whole Blood 221 mg/dL (60-115)
--- OUTSIDE RECORDS SUMMARY | 2025-05-29 11:12 | XMS_ITS | Data Portability ---
Author Organization [facility], Allergy Address [address] [address] Assessment Encounter Date Assessment Date Assessment LastModified [...] disequilibrium is coming from an otologic source. [email or web address] Not available 12/29/2023 16:52:35 Plan of Treatment Reminders Order Date Submit Date Provider Last Modified By Organization Details Last Modified Time Details Appointments None recorded. Lab None recorded. Referral neurologist referral 2023 024 [email or web address] 2 [facility] Scheduling, [address] [place], [address], 4 10:41:05 Procedures None recorded. Surgeries None [...] Organization Details Recorded Time Abnormal auditory perception 60380635 Active 2023 Savannah chicas [place] - [facility] 4 16:32:03 Migraine without aura 17791818 Active 2023 JUNIE RICH PA-C [address] [place] [address],[place] [address], [place], [address], [facility] - [facility] 4 16:52:39 Dizziness and giddiness 825147380 Active 2023 JUNIE RICH PA-C [address] [place] [address],[place] [address], [place], [address], [facility] - [facility] 4 16:52:43 Bilateral earache 399221705 Active 2023 JUNIE RICH PA-C [address] [place] [address],[place] [address], [place], [address], [facility] - [facility] 4 16:52:54 Bilateral temporomand ibular joint pain 5566959970776 9105 Active 2023 JUNIE RICH PA-C [address] [place] [address], [address] [place] [address], [address], [facility] - [facility] 4 16:53:00 Problem Notes None recorded. Procedures Surgical History Date Name Laterality Status Provider Name and Address Organization Details Recorded Time Comp Audio with Tymps - 00335 & 95392 completed Savannah Goldsmith [place] - [facility] 12/29/2023 16:30:31 Cerumen removal without microscope left completed JUNIE RICH PA-C [address], [address], [facility] - [facility] 12/29/2023 14:56:07 Imaging Results None recorded. [...] Note 3283 JUNIE RICH PA-C [facility] [address] [address] 12/29/2023 13:49:33 12/29/2023 16:39:20 Abnormal auditory perception 90538658 H93.299 Audiologic al evaluation results: Right ear: Normal hearing with excellent word recognitio n. Left ear: Normal hearing with excellent word recognitio n. Tympanomet ry: Right Ear:Type Ad Left Ear:Type Ad Migraine without aura 56 969622 G43.009 Dizziness and giddiness 251383822 R42 Bilateral earache 488257 003 H92.03 Bilateral temporomandibular joint pain [id number] 3994043 M26.623 Health Concerns Section Related Observation LastModified by Organization Detai ls LastModified Time None Recorded Concern Status LastModified by Organization Details LastModified Time None Recorded Advance Directives Directive None Recorded Payers Insurance Date Sequence Insurance Name Policy Number Policy Rodriguez Covered Member ID Rodriguez Member ID Guarantor Name 06/30/2024 1 [facility] - HEALTH NET PLAN (MEDICAID HMO) BURTON Quiñonez [id number] Mckenzie Quiñonez Notes Date Note Type Note [...] them in several years. JUNIE RICH PA-C [address] [place] [address], [place], [address], [place] - [facility] 12/29/2023 16:53:54 OBGyn Episode No OBEpisode recorded.
--- OUTSIDE RECORDS SUMMARY | 2025-05-29 11:12 | XMS_ITS | Clinical Summary ---
Author Organization [employer] Address [address] [place] [address] [address] [place] [address] Care Team Providers Care Cupola Melter Name Role Phone Unavailable Primary Care Provider [...] Sodium Fluoride 1.1 % creamIndication s:Dental caries [place] teeth for 2 minutes, morning and night. [...] 07/26/2024 Severe obesity (BMI 35.0-39.9) with comorbidity ([facility]) 07/26/2024 Disease due to severe acute respiratory syndrome coronavirus 2 (SARS-CoV-2) 03/14/2024 Overview (07/26/2024): Problem added by Discern Expert Abnormal auditory perception 12/29/2023 Bilateral temporomandibular joint pain Dizziness and giddiness 12/29/2023 Migraine without aura 12/29/2023 Otalgia of both ears 12/29/2023 Hyperlipidemia 08/10/2022 Neutrophilia 05/21/2020 Hirsutism 03/27/2020 Incisional hernia 12/19/2019 Fatty liver 12/11/2019 Asthma-COPD overlap syndrome ([facility]) 9 Mediastinal lymphadenopathy 01/23/2019 Pulmonary nodules 01/23/2019 [...] Team (Late st Contact Info) Description 07/30/2025 12:45 PM EST Office Visit [facility] [address] [place] [address] Mireya Cole Health Maintenance Due Date Last [...] Associated Diagnosis Comments PROPHYLAXIS - ADULT Routine 01/23/2025 1 :00 PM EDT Dental caries Edentulism Partial edentulism, unspecified edentulism class PERIODIC ORAL EVALUATION - ESTABLISHED PATIENT Routine 01/23/2025 1:00 PM EDT Dental caries Edentulism Partial edentulism, unspecified edentulism class INTRAORAL - COMPLETE SERIES OF RADIOGRAPHIC IMAGES Routine 07/25/2024 2:00 PM EST Dental caries Periodontal disease from Last 3 Months or Most Recently Relevant to Health Maintenance Insurance [facility] STAND AD[place]
--- OUTSIDE RECORDS SUMMARY | 2025-05-29 11:13 | XMS_ITS | Clinical Summary ---
Author Organization [facility] Address [address] [place] [address] Care Team Providers Care Property Field Adjuster Name Role Phone Diogo Wright MD Primary [...] Fatty liver 12/11/2019 Asthma-COPD overlap syndrome ([facility] V24, [facility]/ CC V28) 01/23/2019 Mediastinal lymphadenopathy 01/23/2019 Pulmonary nodules 01/23/2019 Hidradenitis 12/14/2018 Obesity (BMI 30-39.9) 08/01/2018 Snoring 06/29/2018 Overview (07/22/2024): 05/2018 Home Sleep Study did not reveal sleep apnea. Type 2 diabetes mellitus ([facility] V24, [facility] V 28) 04/26/2018 Vitamin D [...] s/p repair Anxiety 12/11/2015 DX:Anxiety Emphysema, unspecified ([facility] V24, [facility] V28) 01/06 DX:Emphysema, unspecified ([facility]); COMMENT: per patient Obesity DX:Obesity COPD (chronic obstructive pu lmonary disease) ([facility] V24, [facility] V28) DX:COPD (chronic o bstructive pulmonary disease) ([facility]) Tobacco abuse DX:Tobacco abuse Type 2 diabetes mellitus ( S/[facility] V24, [facility] V28) DX:Type 2 diabetes mellitus ([facility]) Vitamin D deficiency DX:Vitamin D deficiency Anxiety DX:Anxiety Hyperlipidemia DX:Hyperlipidemi a Family History Medical History Relation Name Comments Breast cancer Aunt paternal ?age Suicide Attempts Brother x 1 Throat cancer Father (+smoker), COOLER TENDER D, HTN, liver transplant Heart failure [...] Results * Urine Albumin Creatinine Ratio (03/27/2020) [facility] Urine Albumin Creatinine Ratio abstracted Result Counts include 234 beds at the [facility] HEALTH MAINTENANCE Final Result * Annual BMP Blood Test (03/27/2020) [facility] Annual BMP Blood Test abstracted Result [facility] [place] [facility] HEALTH MAINTENANCE Final Result * (ABNORMAL) Hemoglobin A1c (03/27/2020) [facility] Hemoglobin A1C 7.2(A) <=6.5 % Blood Venous blood specimen / Unknown Result [facility] Provider LAB BLOOD ORDERABLES Celsa l Result * (ABNORMAL) Lipid panel (03/27/2020) [facility] LDL/HDL Ratio 9(A) 0 - 4 Triglycerides 388(A) 0 - 150 mg/dL Cholesterol 285(A) 0 - 200 mg/dL HDL 31(A) >=40 mg/dL LDL Cholesterol 177(A) 0 - 100 mg/dL Blood Venous blood specimen / Unknown Result [facility] [place] [facility] LAB BLOOD ORDERABLES Celsa l Result * HIV Screening (08/23/2018) [facility] HIV Screening abstracted Result [facility] [place] [facility] HEALTH MAINTENANCE Final Result * Hepatitis C Screening (08/23/2018) [facility] Hepatitis C Screening abstracted Result [facility] [place] [facility] HEALTH MAINTENANCE Final Result * Cervical Cancer Screening: HPV (02/09/2016) [facility] Cervical Cancer Screening: HPV negative, abstracted Result [facility] [place] [facility] HEALTH MAINTENANCE Final Result from Last 3 Months or Most Recently Relevant to Health Maintenance Care Teams Property Field Adjuster Relationship Specialty Start Date End Date Diogo Wright MD PCP - General Internal Medicine 03/12/21
--- OUTSIDE RECORDS SUMMARY | 2025-05-29 11:13 | XMS_ITS | Clinical Summary ---
Author Organization [facility] include 234 beds at the [facility] Address [address] [place] [address] Care Team Providers Care Manufacturing Leader Name Role Phone Diogo Wright MD Primary Care Provider [phone] Allergies Active Allergy Reactions Criticality Noted Date [...] age to complete this topic Care Teams Manufacturing Leader Relationship Specialty Start Date End Date Diogo Wright MD PCP - General Internal Medicine 03/12/21
--- OUTSIDE RECORDS SUMMARY | 2025-05-29 11:13 | XMS_ITS | Clinical Summary ---
Author Organization [facility] Address [address] [place] [address] Phone Care Team Providers Care Cubing Machine Tender Name Role Phone Cruz Navas Primary Care [...] VACCINE (#1) 2025 COVID-19 VACCINE ( - 2024-2 6 season) 2025 Adult Td,Tdap Booster 12/10/2025 12/11/2015 [...] topic Medical Devices Not on file [place] [address] [address] [place] [address] [place] [address] [place] [address] [place] [address] [place] [address] [place] [address] ACO Care Teams Cubing Machine Tender Relationship Specialty Start Date End Date Cruz Navas PA [address] [place] [address] PCP - General 06/30/22 Additional Source Comments The information contained in this document represents components of the legal health record. It is not the complete legal health record.[facility]
== END 2025-05-29 10:35 | disposition home or self-care (01) ==
LOC: HO.ENCR 09:52
PROVIDERS: PCP Physician Assistant; Visit Provider Internal Medicine
DX: E11.65 Type 2 diabetes mellitus with hyperglycemia (principal)

== ENCOUNTER → 2025-05-29 09:51 | Outpatient (BNVA) | payer OTHER, SELFPAY | PROVIDERS: PCP Physician Assistant; Visit Provider Internal Medicine | DX: E11.65 Type 2 diabetes mellitus with hyperglycemia (principal) | CPT/HCPCS: 82947; 99212 ==

== ENCOUNTER 2025-06-20 10:58 | Outpatient (REF) | payer OTHER, SELFPAY ==
--- NOTE | ~2025-06-20 | XR_ITS ---
EXAMINATION: XR ELBOW, LEFT CLINICAL INFORMATION: M25.522 - Pain in left elbow COMPARISON: None available. TECHNIQUE: AP, lateral, and oblique views of the left elbow. FINDINGS: Bone alignment is normal. No fracture or dislocation. Mild degenerative changes with small osteophytes at the medial articular surface of the ulna and coronoid process. Joint spaces are otherwise normal. No joint effusion. XR/XR elbow LT min 3V IMPRESSION: No acute fracture or dislocation. Mild degenerative changes of the articular surface of the ulna. Electronically signed by: Chelsea Gomez MD 06/20/2025 12:38 PM EST
== END 2025-06-20 10:59 | disposition home or self-care (01) ==
LOC: HO.HMGCX 10:58
PROVIDERS: PCP Physician Assistant; Visit Provider Physician Assistant
DX: S53.402A Unspecified sprain of left elbow, initial encounter (principal); W01.0XXA Fall on same level from slipping, tripping and stumbling without subsequent striking against object, initial encounter
CPT/HCPCS: 73080; 99212

== ENCOUNTER 2025-06-20 10:58 | Outpatient (AMB) | payer OTHER, SELFPAY ==
--- OUTSIDE RECORDS SUMMARY | 2025-06-20 11:00 | XMS_ITS | Clinical Summary ---
Author Organization [facility] Address [address] [place] [address] Care Team Providers Care Experimental Mechanic Electrical Name Role Phone Diogo Wright MD Primary Care Provider [phone] Allergies Active Allergy Reactions Criticality Noted Date [...] age to complete this topic Care Teams Experimental Mechanic Electrical Relationship Specialty Start Date End Date Diogo Wright MD PCP - General Internal Medicine 03/12/21
--- OUTSIDE RECORDS SUMMARY | 2025-06-20 11:00 | XMS_ITS | Clinical Summary ---
Author Organization [employer] Address [address] [facility] [address] [place] [address] Care Team Providers Care Forming Press Operator Name Role Phone Unavailable Primary Care [...] Sodium Fluoride 1.1 % creamIndication s:Dental caries [place] teeth for 2 minutes, morning and night. [...] 07/26/2024 Severe obesity (BMI 35.0-39.9) with comorbidity ([facility]) 07/26/2024 Disease due to severe acute respiratory syndrome coronavirus 2 (SARS-CoV-2) 03/14/2024 Overview (07/26/2024): Problem added by Discern Expert Abnormal auditory perception 12/29/2023 Bilateral temporomandibular joint pain Dizziness and giddiness 12/29/2023 Migraine without aura 12/29/2023 Otalgia of both ears 12/29/2023 Hyperlipidemia 08/10/2022 Neutrophilia 05/21/2020 Hirsutism 03/27/2020 Incisional hernia 12/19/2019 Fatty liver 12/11/2019 Asthma-COPD overlap syndrome ([facility]) 9 Mediastinal lymphadenopathy 01/23/2019 Pulmonary nodules [...] Description 07/30/2025 12:45 PM EST Office Visit [facility] [address] [place] [address] Mireya Cole Health Maintenance Due Date Last [...]
--- OUTSIDE RECORDS SUMMARY | 2025-06-20 11:00 | XMS_ITS | Data Portability ---
Author Organization [facility], Allergy Address [address] [address] Assessment Encounter Date Assessment Date Assessment LastModified [...] disequilibrium is coming from an otologic source. [email or web address] Not available 12/29/2023 16:52:35 Plan of Treatment Reminders Order Date Submit Date Provider Last Modified By Organization Details Last Modified Time Details Appointments None recorded. Lab None recorded. Referral neurologist referral 2023 024 [id number] 2 [facility] Neurology Scheduling, [address] [place], [address], 4 10:41:05 Procedures None recorded. Surgeries None [...] Organization Details Recorded Time Abnormal auditory perception 07749910 Active 2023 Savannah chicas [place] - [facility] 4 16:32:03 Migraine without aura 73797167 Active 2023 JUNIE RICH PA-C [address] [place] [address],[place] [address], [place], [address], [facility] - [facility] 4 16:52:39 Dizziness and giddiness 953105977 Active 2023 JUNIE RICH PA-C [address] [place] [address],[place] [address], [place], [address], [facility] - [facility] 4 16:52:43 Bilateral earache 382320869 Active 2023 JUNIE RICH PA-C [address] [place] [address],[place] [address], [place], [address], [facility] - [facility] 4 16:52:54 Bilateral temporomand ibular joint pain 9514058800998 9105 Active 2023 JUNIE RICH PA-C [address] [place] [address], [address] [place] [address], [address], [facility] - [facility] 4 16:53:00 Problem Notes None recorded. Procedures Surgical History Date Name Laterality Status Provider Name and Address Organization Details Recorded Time Comp Audio with Tymps - 37487 & 26460 completed Savannah Goldsmith [place] - [facility] 12/29/2023 16:30:31 Cerumen removal without microscope left completed JUNIE RICH PA-C [address], [address], [facility] [...] Note 3283 JUNIE RICH PA-C [facility] [address] [address] 12/29/2023 13:49:33 12/29/2023 16:39:20 Abnormal auditory perception 72459600 H93.299 Audiologic al evaluation results: Right ear: Normal hearing with excellent word recognitio n. Left ear: Normal hearing with excellent word recognitio n. Tympanomet ry: Right Ear:Type Ad Left Ear:Type Ad Migraine without aura 56 621934 G43.009 Dizziness and giddiness 128956081 R42 Bilateral earache 666038 003 H92.03 Bilateral temporomandibular joint pain 8030658869 3583011 M26.623 Health Concerns Section Related Observation LastModified by Organization Detai ls LastModified Time None Recorded Concern Status LastModified by Organization Details LastModified Time None Recorded Advance Directives Directive None Recorded Payers Insurance Date Sequence Insurance Name Policy Number Policy Rodriguez Covered Member ID Rodriguez Member ID Guarantor Name 06/30/[address] [facility] - HEALTH NET PLAN (MEDICAID HMO) BURTON Quiñonez [id number] Mckenzie Quiñonez Notes Date Note Type Note [...] them in several years. JUNIE RICH PA-C [address] [place] [address], [place], [address], [place] - [facility] 12/29/2023 16:53:54 OBGyn Episode No OBEpisode recorded.
--- OUTSIDE RECORDS SUMMARY | 2025-06-20 11:01 | XMS_ITS | Clinical Summary ---
Author Organization [facility] it Address [address] [place] [address] Care Team Providers Care Balance Wheel Screw Hole Driller Name Role Phone Diogo Wright MD Primary Care Provider [phone] Allergies Active Allergy Reactions Criticality Noted Date [...] 12/19/2019 Fatty liver 12/11/2019 Asthma-COPD overlap syndrome ([facility] V24, [facility]/ [facility] V28) 01/23/2019 Mediastinal lymphadenopathy 01/23/2019 Pulmonary nodules 01/23/2019 Hidradenitis 12/14/2018 Obesity (BMI 30-39.9) 08/01/2018 Snoring 06/29/2018 Overview (07/22/2024): 05/2018 Home Sleep Study did not reveal sleep apnea. Type 2 diabetes mellitus ([facility] V24, [facility] V 28) 04/26/2018 Vitamin D deficiency 04/26/2018 [...] DX:Anxiety Emphysema, unspecified ([facility] V24, [facility] V28) 01/06 DX:Emphysema, unspecified ([facility]); COMMENT: per patient Obesity DX:Obesity COPD (chronic obstructive pu lmonary disease) ([facility] V24, [facility] V28) DX:COPD (chronic o bstructive pulmonary disease) ([facility]) Tobacco abuse DX:Tobacco abuse Type 2 diabetes mellitus ( S/[facility] V24, [facility] V28) DX:Type 2 diabetes mellitus ([facility]) Vitamin D deficiency DX:Vitamin D deficiency Anxiety DX:Anxiety Hyperlipidemia DX:Hyperlipidemi a Family History Medical History Relation Name Comments Breast cancer Aunt paternal ?age Suicide Attempts Brother x 1 Throat cancer Father (+smoker), GARBAGE TRUCK HELPER D, HTN, liver transplant Heart failure [...] Results * Urine Albumin Creatinine Ratio (03/27/2020) [facility] Urine Albumin Creatinine Ratio abstracted Result [facility] HEALTH MAINTENANCE Final Result * Annual BMP Blood Test (03/27/2020) [facility] Annual BMP Blood Test abstracted Result [facility] [place] [facility] MAINTENANCE Final Result * (ABNORMAL) Hemoglobin A1c (03/27/2020) [facility] Hemoglobin A1C 7.2(A) <=6.5 % Blood Venous blood specimen / Unknown Result [facility] Provider LAB BLOOD ORDERABLES Celsa l Result * (ABNORMAL) Lipid panel (03/27/2020) [facility] LDL/HDL Ratio 9(A) 0 - 4 Triglycerides 388(A) 0 - 150 mg/dL Cholesterol 285(A) 0 - 200 mg/dL HDL 31(A) >=40 mg/dL LDL Cholesterol 177(A) 0 - 100 mg/dL Blood Venous blood specimen / Unknown Result [facility] [place] [facility] LAB BLOOD ORDERABLES Celsa l Result * HIV Screening (08/23/2018) [facility] HIV Screening abstracted Result [facility] [place] [facility] MAINTENANCE Final Result * Hepatitis C Screening (08/23/2018) [facility] Hepatitis C Screening abstracted Result [facility] [place] [facility] MAINTENANCE Final Result * Cervical Cancer Screening: HPV (02/09/2016) [facility] Cervical Cancer Screening: HPV negative, abstracted Result [facility] [place] [facility] HE[facility] MAINTENANCE Final Result from Last 3 Months or Most Recently Relevant to Health Maintenance Care Teams Balance Wheel Screw Hole Driller Relationship Specialty Start Date End Date Diogo Wright MD PCP - General Internal Medicine 03/12/21
--- OUTSIDE RECORDS SUMMARY | 2025-06-20 11:01 | XMS_ITS | Clinical Summary ---
Author Organization [facility] Address [address] [place] [id number] Phone Care Team Providers Care Auto Accessories Installer Name Role Phone Cruz Navas Primary Care [...] Date Smoking Tobacco: Every Day Cigarettes 0.5 33.9 Started: 1991 Passive Smoke Exposure: Current Tobacco [...] topic Medical Devices Not on file [place] [address] [address] [place] [address] [place] [address] [place] [address] [place] [address] [place] [address] [place] [address] [employer] Care Teams Auto Accessories Installer Relationship Specialty Start Date End Date Cruz Navas PA [address] [place] [id number] PCP - General 06/30/22 Additional Source Comments The information contained in this document represents components of the legal health record. It is not the complete legal health record.[facility]
[2025-06-20 11:53] VITALS: BP 124/80; PULSE 92; TEMP 36.3; O2SAT 98; BMI 40.5
--- NOTE | 2025-06-20 11:53 | AM.OFFWIN_ITS ---
Intake Vital Signs 06/20/25 11:53 Height 5 ft 4 in Weight 236 lb BMI 40.5 BP 124/80 Blood Pressure Location Rt brachial Position Sitting Pulse 92 Pulse Source Pulse Oximeter Temp 97.4 F Temp Source Oral Pulse Oximetry (%) 98 Oxygen Delivery Method Room Air Intake Visit Reasons: EP upper left arm pain limited mobility Intake Note: pt presents with left elbow pain radiating into left shoulder with limited mobility ongoing for 1 month but pain worsened yesterday after catching herself before falling Patient Tobacco Use Status: Current everyday Tobacco user Allergies latex (LATEX) Allergy (Mild, Verified 06/20/25 12:02) RASH Iodinated Contrast Media (IV Contrast Dye) Allergy (Verified 06/20/25 12:02) Anaphylaxis amoxicillin Adverse Reaction (Unknown, Verified 06/20/25 12:02) vaginal infection dulaglutide (From Trulicity) Adverse Reaction (Unknown, Verified 06/20/25 12:02) vomitting, nausea semaglutide (From Ozempic) Adverse Reaction (Unknown, Verified 06/20/25 12:02) Chest pain, vomitting oral contrast Allergy (Severe, Uncoded 06/20/25 12:02) Anaphylaxis Do you need a note to return to daycare/school/sports/work: No HPI HPI Comments History of Present Illness Details History of Present Illness - The patient is a 49 year old individua l presenting with left elbow pain. - The patient reports that the pain in t he left elbow began approximately one month ago but acutely worsened after an incident yesterday. - The patient was sitting on the edge of the bed soaking their feet when the bucket moved, pulling the patient forward. - In an attempt to avoid injuring their stomach, the patient twisted and used their elbows to brace for the fall. - Following the incident, the left elbow pain became severe. - The pain is described as a sharp, shoo ting sensation that radiates up the arm with flexion and extension. - Due to the pain, the patient is unable to lift a plate. - The patient has not used ice or taken any NSAIDs or ice for the pain. - Past medical history includes a clavic le fracture. Review of Systems - Musculoskeletal: Reports soreness and pain in the left elbow, which worsens with lifting objects. - Neurological: Reports a sharp, shootin g pain radiating up the arm from the elbow. All systems reviewed and are unremarkable except as noted in HPI Physical Exam General: Cooperative, healthy appearing, comfortable, no acute distress and well developed Orientation: Patient oriented x3 Limitations: Limited range of motion in the left elbow due to pain Head: Normal to inspection Ears: Hearing grossly normal bilaterally Nose: Normal External nose present Face and sinus: Normal facial exam Eyes: Appearance normal, both eyes and all related structures Neck: Normal visual inspection and Yes full ROM Respiratory: Normal respiratory effort and able to speak in complete sentences. Skin: No rashes or lesions noted Neuro: Patient oriented x3 Extremities: left elbow full ROM with pain, TTP lateral epicondyle, no TTP medial epicondyle. [facility] Medical History (Updated 06/20/25 @ 12:38 by Georgina Abbasi PA-C) Left elbow pain Hordeolum externum of right eye Itching Obesity (BMI 30-39.9) Sepsis Diverticulitis of both large and small intestine with perforation and abscess Diverticulitis of large intestine with abscess Morbid obesity with BMI of 50.0-59.9, adult Hypertension Vitamin D deficiency B12 deficiency Diabetic nephropathy associated with type 2 diabetes mellitus Dyslipidemia Hirsutism Diabetes type 2, uncontrolled Surgical History Hx of abdominal surgery Hx of umbilical hernia repair History of ankle surgery Hx of section Family History Father Throat cancer Cirrhosis Mother Diabetes Sister History of hysterectomy Social History Household Members: None Housing: House Do you presently have visiting nurse or other home services: Yes Alcohol intake: former Patient Tobacco Use Status: Current everyday Tobacco user Tobacco use type: Cigarette Cigarette Packs Per Day: 0.5 Cigarettes Per Day: 1 Years Smoked: 30 e-Cigarette/Vaping Use: Never Used Second Hand Smoke Exposure: Yes Substance Use Type: Marijuana Advance Directives Date on File: 05/05/21 service: No Current occupational status: disabled Cognitive needs: No Hearing needs: No Vision needs: Yes Physical Exam Vital Signs: Last Vital Signs Temp 97.4 F 06/20/25 11:53 Pulse 92 06/20/25 11:53 BP 124/80 06/20/25 11:53 Pulse Ox 98 06/20/25 11:53 Oxygen Delivery Method Room Air 06/20/25 11:53 BMI result Body Mass Index 40.5 Assessment & Plan Assessment & Plan (1) Left elbow pain: Code(s): M25.522 - Pain in left elbow Plan: Patient was informed and verbally consented to the use of an ambient scribe for clinic note documentation during this visit. - The patient presents with ipfrc-ah-tlkyohf left elbow pain following a fall, characterized by a sharp, shooting quality suggestive of nerve irritation. - An X-ray of the left elbow will be obtained to assess for any acute damage or fracture. - My interpretation of elbow XR is no acute fracture or dislocation, likely a sprain. - RICE and wrapped with BILLIE wrap - Follow up with PCP if no improvement in pain over the coming weeks. (2) Sprain of elbow, left: Code(s): S53.402A - Unspecified sprain of left elbow, initial encounter Qualifiers: Encounter type: initial encounter Qualified Code(s): S53.402A - Unspecified sprain of left elbow, initial encounter Plan: as above Orders: Orders XR elbow LT min 3V Today M25.522 - Pain in left elbow Coding Level of Care Code Est Pt Level 4 (00066) Diagnoses Left elbow pain M25.522 Sprain of left elbow, initial encounter S53.402A Encounter type: initial encounter
== END 2025-06-20 12:43 | disposition home or self-care (01) ==
PROVIDERS: PCP Physician Assistant; Visit Provider Physician Assistant
DX: M25.522 Pain in left elbow (principal); S53.402A Unspecified sprain of left elbow, initial encounter

== ENCOUNTER → 2025-06-20 12:20 | Outpatient (BNV) | payer OTHER, SELFPAY | PROVIDERS: PCP Physician Assistant; Visit Provider Radiology Diagnostic Radiology | DX: M19.022 Primary osteoarthritis, left elbow (principal) | CPT/HCPCS: 73080 ==

== ENCOUNTER 2025-06-26 09:42 | Outpatient (AMB) | payer OTHER, SELFPAY ==
--- NOTE | 2025-06-26 09:44 | A.OFFVIS_ITS ---
Vital Signs 06/26/25 09:45 Height 5 ft 4 in Weight 238 lb 1.588 oz BMI 40.9 BP 122/82 Blood Pressure Location Rt brachial Position Sitting Pulse 86 Pulse Source Pulse Oximeter Pulse Oximetry (%) 98 Oxygen Delivery Method Room Air Intake Visit Reasons: T2DM Intake Note: Patient presents today for a follow-up on Type 2 Diabetes Mellitus: Last Diabetic eye exam was on: 12/11/2024, [facility]. Last Podiatry exam was on: Patient does not see a Vice President Biostatistics Most recent HbA1c: 10.2%, 04/24/2025 Random Glucose: 164 mg/dL Mds Rn Required: No Accompanied by: Self / Same As Patient Allergies latex (LATEX) Allergy (Mild, Verified 06/26/25 09:45) RASH Iodinated Contrast Media (IV Contrast Dye) Allergy (Verified 06/26/25 09:45) Anaphylaxis amoxicillin Adverse Reaction (Unknown, Verified 06/26/25 09:45) vaginal infection dulaglutide (From Trulicity) Adverse Reaction (Unknown, Verified 06/26/25 09:45) vomitting, nausea semaglutide (From Ozempic) Adverse Reaction (Unknown, Verified 06/26/25 09:45) Chest pain, vomitting oral contrast Allergy (Severe, Uncoded 06/26/25 09:45) Anaphylaxis HPI Comments Details: Patient is a 49-year-old female with DM type 2 diagnosed who presents for management of diabetes. Past medical history: DM2, HTN, Hirsutism, dyslipidemia, vitamin d deficiency. Micro and macrovascular complications: Nephropathy Diabetes medications: Tresiba 60 units daily Lispro 20 tid cc -has not been taking Actos 30mg daily Glipizide 10mg daily Previous: Had dizziness with Trulicity. Intolerant of mounjaro. ozempic-cp, vomiting. She wants to retry tirzepatide as zepbound CGM, Freestyle Tiff 3+ sensors have been falling off. Checking glucometer 2x/day 106-224 Avg 171 A1C 10.2% 0/2 from 13.9% up from 8.9% in December She needs surgery but it will not be performed until she loses weight. Symptoms reported: numbness, tingling, cramping in lower extremities Hypoglycemia: No. drinks orange juice Hyperglycemia: denies urinary frequency, denies excessive thirst Optho: UTD Does not see podiatry ROS see HPI PHYSICAL EXAM: GENERAL: Alert and oriented x 3. NAD EYES: EOMI. Anicteric. HENT: Moist mucous membranes. No scleral icterus. No cervical lymphadenopathy. LUNGS: Clear to auscultation bilaterally. CARDIOVASCULAR: Regular rate and rhythm. No murmur. No JVD. ABDOMEN: Soft, +hernia EXTREMITIES: No edema. Non-tender. SKIN: No rashes or lesions. Warm. NEUROLOGIC: No focal neurological deficits. CN II-XII grossly intact PSYCHIATRIC: Cooperative. Appropriate mood and affect [facility] Medical History Left elbow pain Hordeolum externum of right eye Itching Obesity (BMI 30-39.9) Sepsis Diverticulitis of both large and small intestine with perforation and abscess Diverticulitis of large intestine with abscess Morbid obesity with BMI of 50.0-59.9, adult Hypertension Vitamin D deficiency B12 deficiency Diabetic nephropathy associated with type 2 diabetes mellitus Dyslipidemia Hirsutism Diabetes type 2, uncontrolled Surgical History Hx of abdominal surgery Hx of umbilical hernia repair History of ankle surgery Hx of section Family History Father Throat cancer Cirrhosis Mother Diabetes Sister History of hysterectomy Social History Household Members: None Housing: House Do you presently have visiting nurse or other home services: Yes Alcohol intake: former Patient Tobacco Use Status: Current everyday Tobacco user Tobacco use type: Cigarette Cigarette Packs Per Day: 0.5 Cigarettes Per Day: 1 Years Smoked: 30 e-Cigarette/Vaping Use: Never Used Second Hand Smoke Exposure: Yes Substance Use Type: Marijuana Advance Directives Date on File: 05/05/21 service: No Current occupational status: disabled Cognitive needs: No Hearing needs: No Vision needs: Yes Physical Exam Vital Signs: Oxygen Delivery Method Room Air 06/26/25 09:45 BMI result Body Mass Index 40.9 Assessment & Plan Assessment & Plan (1) Diabetes type 2, uncontrolled: Code(s): E11.65 - Type 2 diabetes mellitus with hyperglycemia Category: Medical Qualifiers: Glycemic state: with hyperglycemia Qualified Code(s): E11.65 - Type 2 diabetes mellitus with hyperglycemia (2) Insulin dependent type 2 diabetes mellitus: Code(s): E11.9 - Type 2 diabetes mellitus without complications; Z79.4 - halfway (current) use of insulin Category: Medical Plan Insulin dependent type 2 diabetes Improving control. She has not been able to lose any weight She wants to try tirzepatide again despite prior side effects. She insist she would like to try zepbound and I told her this is the same as mounshawnaro and either will be the same Will stop actos to see if this is hindering weight loss. Increase tresiba to 66 units daily. She will likely need to restart her lispro, since she has not been actually taking it 20u tid, decreased this to 5unit tid. If she starts developing any hypoglycemia can take her off glipizide. This was added when her compliance with insulin regimen was worse Treat hypoglycemia by rules of 15s Return in one month or sooner as needed Medications: New Zepbound (tirzepatide (weight loss)) for 4 weeks 2.5 mg (0.5 mL) subcut QWEEK 2 mL 1RF NS E66.813 - Obesity, class 3, I10 - Essential (primary) hypertension furosemide (Lasix) Take 2 tab oral once daily for 3 days then as needed for leg swelling 90 tabs 1RF Changed 2 From Tresiba FlexTouch U-200 (insulin degludec) 60 units (0.3 mL) subcut BEDTIME 90 days 27 mL 3RF NS To Tresiba FlexTouch U-200 (insulin degludec) 64 units (0.32 mL) subcut BEDTIME 90 days 30 mL 3RF NS From Tresiba FlexTouch U-200 (insulin degludec) 64 units (0.32 mL) subcut B EDTIME 90 days 30 mL 3RF NS To Tresiba FlexTouch U-200 (insulin degludec) 66 units (0.33 mL) subcut BEDTIME 30 mL 3RF 90 days NS From insulin lispro Max 60 units/24 hours 20 units (0.2 mL) subcut TID 90 days 54 mL 3RF E11.65 - Type 2 diabetes mellitus with hyperglycemia, E11.9 - Type 2 diabetes mellitus without complications, 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
[2025-06-26 09:45] VITALS: BP 122/82; PULSE 86; O2SAT 98; BMI 40.9
[2025-06-26 10:06] LABS: Glucose, Whole Blood 164 mg/dL (60-115)
--- OUTSIDE RECORDS SUMMARY | 2025-06-26 11:12 | XMS_ITS | Clinical Summary ---
Author Organization [facility] Address [address] [place] [address] Care Team Providers Care Rubber Vulcanizing Machine Operator Name Role Phone Unavailable Primary [...] Sodium Fluoride 1.1 % creamIndication s:Dental caries Carver teeth for 2 minutes, morning and night. [...] 07/26/2024 Severe obesity (BMI 35.0-39.9) with comorbidity ([facility]) 07/26/2024 Disease due to severe acute respiratory syndrome coronavirus 2 (SARS-CoV-2) 03/14/2024 Overview (07/26/2024): Problem added by Discern Expert Abnormal auditory perception 12/29/2023 Bilateral temporomandibular joint pain Dizziness and giddiness 12/29/2023 Migraine without aura 12/29/2023 Otalgia of both ears 12/29/2023 Hyperlipidemia 08/10/2022 Neutrophilia 05/21/2020 Hirsutism 03/27/2020 Incisional hernia 12/19/2019 Fatty liver 12/11/2019 Asthma-COPD overlap syndrome ([facility]) 9 Mediastinal lymphadenopathy 01/23/2019 Pulmonary nodules 01/23/2019 [...] Description 07/30/2025 12:45 PM EST Office Visit [facility] [address] [place] [address] Mireya Cole Health Maintenance Due Date Last [...]
--- OUTSIDE RECORDS SUMMARY | 2025-06-26 11:12 | XMS_ITS | Clinical Summary ---
Author Organization [facility] it Address [address] [place] [address] Care Team Providers Care Superintendent Communications Name Role Phone Diogo Wright MD Primary [...] 12/19/2019 Fatty liver 12/11/2019 Asthma-COPD overlap syndrome ([facility] V24, [facility] V28) 01/23/2019 Mediastinal lymphadenopathy 01/23/2019 Pulmonary nodules 01/23/2019 Hidradenitis 12/14/2018 Obesity (BMI 30-39.9) 08/01/2018 Snoring 06/29/2018 Overview (07/22/2024): 05/2018 Home Sleep Study did not reveal sleep apnea. Type 2 diabetes mellitus ([facility] V24, [facility] V 28) 04/26/2018 [...] s/p repair Anxiety 12/11/2015 DX:Anxiety Emphysema, unspecified ([facility] V24, [facility] V28) 01/06 DX:Emphysema, unspecified (H CC); COMMENT: per patient Obesity DX:Obesity COPD (chronic obstructive pu lmonary disease) ([facility] V24, [facility] V28) DX:COPD (chronic o bstructive pulmonary disease) ([facility]) Tobacco abuse DX:Tobacco abuse Type 2 diabetes mellitus ( S/[facility] V24, [facility] V28) DX:Type 2 diabetes mellitus ([facility]) Vitamin D deficiency DX:Vitamin D deficiency Anxiety DX:Anxiety Hyperlipidemia DX:Hyperlipidemi a Family History Medical History Relation Name Comments Breast cancer Aunt paternal ?age Suicide Attempts Brother x 1 Throat cancer Father (+smoker), ENTRY LEVEL MANAGEMENT D, HTN, liver transplant Heart failure Maternal [...] - 19+ 3-dose series) 1995 Pneumococcal Vaccine: Pediat rics (0 to 5 Years) and At-Risk Patients (6 to 49 Years) (1 of 2 - PCV) 1995 Cervical Cancer Screening: P ap Smear 02/08/2019 02/09/2016 Diabetes: Annual GFR (Glomer ular Filtration Rate) 03/27/2021 03/27/2020 Social Influencers of Health Screening 06/26/2022 Diabetes: Annual Urine Albumin-Creatinine Ratio (uACR) 06/30/2022 03/27/2020 Diabetes: Blood Sugar Contro l Test (HGBA1C) 06/30/2022 03/27/2020 Depression Screening 07/24/2024 Influenza Vaccine (#1) 2025 Cholesterol Screening (Lipid Panel) 03/27/2025 03/27/2020 DTaP,Tdap,and Td Vaccines (2 - Td or Tdap) 12/10/2025 12/11/2015 RSV Immunization Adult Patie nts (1 - 1-dose 75+ series) 2051 HIV [...] to complete this topic RSV Immunization Patients Un zeny 20 months Aged Out No longer eligible [...] SCREENING Routine 08/23/2018 HIV SCREENING Routine 08/23/2018 PAP SMEAR Routine 02/09/2016 from Last 3 Months or Most Recently Relevant to Health Maintenance Results * Urine Albumin Creatinine Ratio (03/27/2020) Pathologist [facility] Urine Albumin Creatinine Ratio abstracted Result [facility] Provider HEALTH MAINTENANCE Final Result * Annual BMP Blood Test (03/27/2020) Pathologist [facility] Annual BMP Blood Test abstracted Result [facility] Provider HEALTH MAINTENANCE Final Result * (ABNORMAL) Hemoglobin A1c (03/27/2020) [facility] Hemoglobin A1C 7.2(A) <=6.5 % Blood Venous blood specimen / Unknown Result [facility] Provider LAB BLOOD ORDERABLES Celsa l Result * (ABNORMAL) Lipid panel (03/27/2020) [facility] LDL/HDL Ratio 9(A) 0 - 4 Triglycerides 388(A) 0 - 150 mg/dL Cholesterol 285(A) 0 - 200 mg/dL HDL 31(A) >=40 mg/dL LDL Cholesterol 177(A) 0 - 100 mg/dL Blood Venous blood specimen / Unknown Result [facility] Provider LAB BLOOD ORDERABLES Celsa l Result * HIV Screening (08/23/2018) [facility] HIV Screening abstracted Result [facility] [place] [facility] MAINTENANCE Final Result * Hepatitis C Screening (08/23/2018) [facility] Hepatitis C Screening abstracted Result [facility] [place] [facility] MAINTENANCE Final Result * Pap Smear (02/09/2016) [facility] Pap smear negative, abstracted Result [facility] [place] [facility] MAINTENANCE Final Result from Last 3 Months or Most Recently Relevant to Health Maintenance Care Teams Superintendent Communications Relationship Specialty Start Date End Date Diogo Wright MD PCP - General Internal Medicine 03/12/21
--- OUTSIDE RECORDS SUMMARY | 2025-06-26 11:12 | XMS_ITS | Clinical Summary ---
Author Organization [facility] Address [address] [place] [phone] Phone Care Team Providers Care Systems Eng Name Role Phone Cruz Navas Primary Care [...] topic Medical Devices Not on file [place] [address] [address] [place] [address] [place] [address] [place] [address] [place] [address] [place] [address] [place] [address] A[employer] Care Teams Systems Eng Relationship Specialty Start Date End Date Cruz Navas PA [address] [place] [id number] PCP - General 06/30/22 Additional Source Comments The information contained in this document represents components of the legal health record. It is not the complete legal health record.[facility]
--- OUTSIDE RECORDS SUMMARY | 2025-06-26 11:12 | XMS_ITS | Clinical Summary ---
Author Organization [facility] Prior to 12/21/24 Address [address] [place] [address] Care Team Providers Care Pattern Designer Name Role Phone Diogo Wright MD [...] age to complete this topic Care Teams Pattern Designer Relationship Specialty Start Date End Date Diogo Wright MD PCP - General Internal Medicine 03/12/21
== END 2025-06-26 10:28 | disposition home or self-care (01) ==
LOC: HO.ENCR 09:43
PROVIDERS: PCP Physician Assistant; Visit Provider Internal Medicine
DX: E11.65 Type 2 diabetes mellitus with hyperglycemia (principal); E11.9 Type 2 diabetes mellitus without complications; Z79.4 Long term (current) use of insulin

== ENCOUNTER → 2025-06-26 09:42 | Outpatient (BNVA) | payer OTHER, SELFPAY | PROVIDERS: PCP Physician Assistant; Visit Provider Internal Medicine | DX: E11.65 Type 2 diabetes mellitus with hyperglycemia (principal); Z79.4 Long term (current) use of insulin; Z79.84 Long term (current) use of oral hypoglycemic drugs | CPT/HCPCS: 82947; 99212 ==